=== PATIENT | female | born 1940 | race African-American/Black ===

== ENCOUNTER 2016-06-04 11:27 | Inpatient (IN) | payer OTHER ==
--- NOTE | 2016-06-04 11:41 | PDOC ---
History of Present Illness - General History Source: Patient - History of Present Illness Initial Comments: 06/04/16 11:44 The patient is a 75-year-old woman, accompanied by daughter, with a significant past medical history of hypertension, hypercholesterolemia, asthma, anemia, adult onset insulin dependent diabetes mellitus and anxiety who presents to the emergency department for further evaluation of a headache. No recent head trauma. As per patient's daughter, the patient was noted to complain of a headache this morning with associated episodes of shivering. Patient's glucose was measured and was reportedly to be 400. She had a similar presentation, over 1 year ago, where she was found to have a skin boil that was lanced and her headache resolved. Today, the patient's daughter was noted to have a lincoln- rectal skin boil. No dizziness, vision changes, speech difficulty, neck pain or stiffness, nausea , vomiting, diarrhea, hematochezia, melena, or numbness, tingling, or weakness to the extremities. Allergies: No Known Drug Allergies Past Surgical History: Orthopedic Surgery Social History: No tobacco, ETOH and recreational drug use. Primary Care Physician: Dr. Myesha Nayak [phone]/ <Mary Carrizales - Last Filed: 06/04/16 21:12> <Anderson Jauregui - Last Filed: 06/04/16 21:33> - General Chief Complaint: Headache Stated Complaint: HEADACHE Time Seen by Provider: 06/04/16 11:40 Past History <Mary Carrizales - Last Filed: 06/04/16 21:12> - Past Medical History Anemia: Yes Asthma: Yes Cancer: No Cardiac Disorders: Yes (AF ablation) CVA: No COPD: No CHF: No Dementia: No Diabetes: Yes (IDDM) GI Disorders: No Disorders: Yes (frequency) HTN: Yes Hypercholesterolemia: Yes Liver Disease: No Psychiatric Problems: Yes (ANXIETY.) Seizures: No Thyroid Disease: No - Surgical History Abdominal Surgery: Yes Appendectomy: No Cardiac Surgery: No Cholecystectomy: No Lung Surgery: No Neurologic Surgery: No Orthopedic Surgery: Yes (hammer toes,trigger finger) - Family Disease History Family Disease History: Diabetes: Grandparents, [place]: Mother (htn) - Immunization History Immunization Up to Date: Yes - Psycho/Social/Smoking Cessation Hx Anxiety: No Suicidal Ideation: No Smoking Status: Yes Smoking History: Current every day smoker Have you smoked in the past 12 months: Yes Number of Cigarettes Smoked Daily: 6 'Breaking Loose' booklet given: 06/22/15 Hx Alcohol Use: No Drug/Substance Use Hx: No Substance Use Type: None Hx Substance Use Treatment: No <Anderson Jauregui - Last Filed: 06/04/16 21:33> - Past Medical History Allergies/Adverse Reactions: Allergies Allergy/AdvReac Type Severity Reaction Status Date / Time No Known Allergies Allergy Verified 06/04/16 11:42 Home Medications: Ambulatory Orders Amlodipine Besylate [Norvasc -] 10 mg PO DAILY 07/30/15 Aspirin [ASA -] 81 mg PO DAILY 07/30/15 Cholecalciferol (Vitamin D3) [Vitamin D3] 1,000 unit PO DAILY #30 tab.chew 08/01 Dexlansoprazole [Dexilant] 30 mg PO DAILY #30 cap. 08/02/15 Insulin Sliding Scale [Novolog Vial Sliding Scale -] 1 vial SQ ACHS units 08/01 Review of Systems - Review of Systems Able to Perform ROS?: Yes Comments:: 06/04/16 11:44 GENERAL/CONSTITUTIONAL: No fever or chills. No weakness. HEAD, EYES, EARS, NOSE AND THROAT: No change in vision. No ear pain or discharge. No sore throat. CARDIOVASCULAR: No chest pain or shortness of breath. RESPIRATORY: No cough, wheezing, or hemoptysis. GASTROINTESTINAL: No nausea, vomiting, diarrhea or constipation. GENITOURINARY: No dysuria, frequency, or change in urination. MUSCULOSKELETAL: No joint or muscle swelling or pain. No neck or back pain. SKIN: Yes: Skin boil. No rash NEUROLOGIC: Yes: headache No: vertigo, loss of consciousness, or change in strength/sensation. ENDOCRINE: No increased thirst. No abnormal weight change. HEMATOLOGIC/LYMPHATIC: No anemia, easy bleeding, or history of blood clots. ALLERGIC/IMMUNOLOGIC: No hives or skin allergy. <Mary Carrizales - Last Filed: 06/04/16 21:12> *Physical Exam - Vital Signs Last Vital Signs Temp Pulse Resp BP Pulse Ox 99.3 F 101 H 18 238/97 99 06/04/16 11:38 06/04/16 11:38 06/04/16 11:38 06/04/16 11:38 06/04/16 11:38 - Physical Exam Comments: 06/04/16 11:44 GENERAL: Awake, alert. Moaning in pain HEAD: No signs of trauma EYES: PERRLA, EOMI, sclera anicteric, conjunctiva clear ENT: Auricles normal inspection, hearing grossly normal, nares patent, oropharynx clear without exudates. Moist mucosa NECK: Normal ROM, supple, no lymphadenopathy, JVD, or masses LUNGS: Breath sounds equal, clear to auscultation bilaterally. No wheezes, and no crackles HEART: Regular rate and rhythm, normal S1 and S2, no murmurs, rubs or gallops ABDOMEN: Soft, nontender, normoactive bowel sounds. No guarding, no rebound. No masses EXTREMITIES: Normal range of motion, no edema. No clubbing or cyanosis. No cords, erythema, or tenderness NEUROLOGICAL: Cranial nerves II through XII grossly intact. SKIN: There is an approximately 7 cm by 5 cm oval shaped skin boil over the lincoln -rectal region. <Mary Carrizales - Last Filed: 06/04/16 21:12> Heart Score/ECG Review #1 06/04/16 13:03 EKG reviewed and interpreted by me. IMPRESSION: Normal sinus rhythm with a rate of 78 bpm. There are nonspecfic T wave abnormalities but no ST/ T wave changes that are consistent with acute ischemia or infarct. #2 06/04/16 16:08 EKG reviewed and interpreted by me IMPRESSION: Atrial fibrillation with rapid ventricular response. <Mary Carrizales - Last Filed: 06/04/16 21:12> ED Treatment Course - LABORATORY CBC & Chemistry Diagram: 06/04/16 12:42 06/04/16 12:42 - RADIOLOGY Radiograph Interpretation: 06/04/16 14:48 EXAM: RAD/CHEST X-RAY PORTABLE IMPRESSION: Since 07/30/2015 at 1457 hours, the atelectasis at the right base has resolved. There is still a prominent mediastinum with weak inspiration. Angles are sharp. The bones and soft tissues are intact. There is a prominent knob and normal faizan. Follow-up recommended EXAM: CT/HEAD CT WITHOUT CONTRAST IMPRESSION: CT scan of the brain without intravenous contrast Since 07/30/2015, there remains moderate atrophy, ventricular dilatation and periventricular chronic microvascular ischemic changes. No mass lesion, gross acute infarct or intracranial hemorrhage is seen. There is no shift of the midline structures. The calvarium is intact. Calcification of the cavernous carotid arteries are present. Mild mucosal thickening in the ethmoid air cells and a trace of fluid in the left maxillary antrum layering posteriorly. The mastoid air cells are well aerated EXAM: CT ABDOMINAL & PELVIS IMPRESSION: A 2.4 x 2.4 x 1.3 cm superficial subcutaneous fluid collection is noted along the inferomedial aspect of the right gluteal fold suggestive of abscess formation. Associated subcutaneous edema is seen. <Mary Carrizales - Last Filed: 06/04/16 21:12> - LABORATORY CBC & Chemistry Diagram: 06/04/16 12:42 06/04/16 12:42 <Anderson Jauregui - Last Filed: 06/04/16 21:33> Medical Decision Making - Medical Decision Making 06/04/16 20:51 Called Hospitalist. Immediate response. Case was discussed. 06/04/16 20:[address] Colmenares. 06/04/16 20:[address] Colmenares. Case was discussed. <Mary Carrizales - Last Filed: 06/04/16 21:12> *DC/Admit/Observation/Transfer - Attestations Scribe Attestion: 06/04/16 11:44 Documentation prepared by Mary Carrizales, acting as medical detailist for Anderson Jauregui DO. <Mary Carrizales - Last Filed: 06/04/16 21:12> - Discharge Dispostion Admit: Yes - Attestations Physician Attestion: 06/04/16 11:41 I, Dr. Anderson Jauregui, attest that this document has been prepared under my direction and personally reviewed by me in its entirety. I further attest, that it accurately reflects all work, treatment, procedures and medical decision -making performed by me. <Anderson Jauregui - Last Filed: 06/04/16 21:33> Diagnosis at time of Disposition: Abscess or cellulitis of gluteal region, Paroxysmal atrial fibrillation with rapid ventricular response Migraine headache Qualifiers: Migraine type: other Intractability: not intractable - Referrals Referrals: Myesha Khan MD [Primary Care Provider] -
[2016-06-04 11:45] VITALS: BMI 29.5
[2016-06-04] MEDS ORDERED: morphine CARPU-JECT 4 MG/1 ML DISP.SYRIN ONE ×2 (12:17→13:23)
[2016-06-04] MEDS ORDERED: ONDANSETRON 4 MG/2 ML VIAL ONE (12:17)
[2016-06-04] MEDS ORDERED: ONDANSETRON 4 MG/2 ML VIAL IVPUSH ONE (12:36)
[2016-06-04] MEDS ORDERED: morphine CARPU-JECT 4 MG/1 ML DISP.SYRIN IVPUSH ONE ×2 (12:36→13:44)
[2016-06-04] MEDS ORDERED: SODIUM CHLORIDE 1,000 ML IV STA ×2 (12:36→14:37)
[2016-06-04 12:55] LABS: VENOUS BLOOD GAS HCO3 21.6 meq/L (19-25); VENOUS PH 7.35 (7.32-7.42)
[2016-06-04 12:59] LABS: BASOPHIL 0.5 % (0-2.0); MCH 30.8 pg (25.7-33.7); MCHC 32.6 g/dl (32.0-36.0); MEAN CELL VOLUME 94.4 fl (80-96); MEAN PLT VOLUME 10.2 fl (7.5-11.1); NEUTROPHILS 85.4 % (42.8-82.8); PLATELET COUNT 182 K/MM3 (134-434); RDW 14.6 % (11.6-15.6); WHITE BLOOD COUNT 15.8 K/mm3 (4.0-10.0)
[2016-06-04 13:04] LABS: INR 1.07 (0.82-1.09); PROTHROMBIN TIME (PATIENT) 11.8 SEC (9.98-11.88)
[2016-06-04 13:06] LABS: ACTIVATED PTT 24.9 SECONDS (26.9-34.4)
[2016-06-04 13:13] LABS: ALBUMIN 2.8 g/dl (3.4-5.0); ANION GAP 11 (8-16); BILIRUBIN,TOTAL 0.4 mg/dL (0.2-1.0); CALCIUM 8.5 mg/dL (8.5-10.1); CO2 25 mmol/L (21-32); CREATININE 2.9 mg/dL (0.55-1.02); GLUCOSE,RANDOM 270 mg/dL (74-106); SGOT/AST 8 U/L (15-37); SGPT/ALT 9 U/L (12-78); TOT PROT 6.4 g/dl (6.4-8.2)
[2016-06-04 13:15] LABS: ALK PHOS 80 U/L (45-117); TROPONIN I < 0.02 ng/ml (0.00-0.05)
[2016-06-04] MEDS ORDERED: METOCLOPRAMIDE HCL INJECTION 10 MG/2 ML VIAL ONE (14:24)
[2016-06-04] MEDS ORDERED: HYDROmorphone HCL CARPU-JECT 1 MG/1 ML DISP.SYRIN ONE (14:25)
[2016-06-04] MEDS ORDERED: HYDROmorphone HCL CARPU-JECT 1 MG/1 ML DISP.SYRIN IVPB ONE (14:35)
[2016-06-04] MEDS ORDERED: METOCLOPRAMIDE HCL INJECTION 10 MG/2 ML VIAL IVPB ONE (14:49)
[2016-06-04] MEDS ORDERED: dilTIAZem HCL 125 MG/25 ML - 25 ML VIAL ONE (16:12)
[2016-06-04] MEDS ORDERED: dilTIAZem HCL 50 MG/10 ML - 10 ML VIAL ONE (16:12)
[2016-06-04] MEDS ORDERED: dilTIAZem HCL 50 MG/10 ML - 10 ML VIAL IVPUSH ONE ×2 (16:32→17:20)
[2016-06-04] MEDS ORDERED: DILTIAZEM INJECTION 125 MG in DEXTROSE 5%-WATER - 100 ML IVPB SCH (16:45)
[2016-06-04] MEDS ORDERED: ACETAMINOPHEN 500 MG TABLET (FP) ONE (17:15)
[2016-06-04] MEDS ORDERED: ACETAMINOPHEN 500 MG TABLET (FP) PO ONE ×2 (17:20→17:41)
[2016-06-04] MEDS ORDERED: METOPROLOL TARTRATE 5 MG/5 ML VIAL IVPUSH ONE ×3 (17:24→17:26)
[2016-06-04] MEDS ORDERED: METOPROLOL TARTRATE 5 MG/5 ML VIAL ONE ×2 (17:28→18:21)
[2016-06-04 18:10] LABS: URINE APPEARANCE CLEAR; URINE BILIRUBIN NEGATIVE (NEGATIVE); URINE BLOOD NEGATIVE (NEGATIVE); URINE COLOR LTYELLOW; URINE GLUCOSE (UA) 3+ (NEGATIVE); URINE KETONE NEGATIVE (NEGATIVE); URINE LEUK ESTERASE NEGATIVE (NEGATIVE); URINE NITRITE NEGATIVE (NEGATIVE); URINE UROBILINOGEN NEGATIVE E.U./dl (0.2-1.0)
[2016-06-04 18:12] LABS: URINE PROTEIN 3+ (NEGATIVE)
[2016-06-04 18:13] LABS: URINE MUCUS RARE; URINE RBC 2 /hpf (0-3); URINE WBC 1 /hpf (3-5)
[2016-06-04] MEDS ORDERED: dilTIAZem HCL 30 MG TABLET (FP) PO ONE (19:06)
[2016-06-04] MEDS ORDERED: dilTIAZem HCL 30 MG TABLET (FP) ONE (19:11)
[2016-06-04] MEDS ORDERED: ceFAZolin 2 GRAM PREMIX BAG IVPB ONE ×2 (20:48→21:30)
[2016-06-04] MEDS ORDERED: CEFAZOLIN (PRE-DOCKED) 50 ML IVPB ONE ×2 (21:05→21:11)
[2016-06-04] MEDS ORDERED: ONDANSETRON 4 MG/2 ML VIAL IVPB ONE (21:15)
--- NOTE | 2016-06-04 22:12 | HP ---
CHIEF COMPLAINT: headache, abscess PCP: College Tutor: Dr. Griffith HISTORY OF PRESENT ILLNESS: 75 y/o F w/PMH of HTN, HLD, asthma, anemia, IDDM, CKD, anxiety, hx of afib (s/p ablation) presents to ER for c/o JANE. JANE started 3 days ago and is "50/10" in intensity. JANE started as a pounding JANE behind L ear and now is a constant pain behind left ear. Pt states the headache has remained the same over the past 3 days with no aggravating or alleviating factors. She took tylenol but it did not help. She had a similar headache in the past when she had a genito/gluteal abscess approximately 1 year ago. At that time she went to [facility] and had I& D for abscess and was treated with IV abx for approx 1 week. At this time pt also has an abscess in gluteal region that she noticed forming 3 days ago. She has had chills over the last few days. Today she had her BGM checked at home and was in the 400s. Pt states she has also felt fatigued and SOB even at rest chronically. At this time she feels her breathing is at baseline. She states she has seen multiple doctors but the etiology of her chronic fatigue and SOB are unknown. She denies palpitations, CP, abd pain, N/V, fevers, diarrhea, blood in stool, vision changes, ringing in ears, dysuria, or focal weakness. ER course was notable for: (1) cardizem po 30 mg, cardizem iv 20 + 10, cardizem drip, lopressor iv 5mg x3, cefazolin (2) EKG, Head CT, CXR, Abd/pelvis CT (3) diluadid, reglan, zofran, morphine PAST MEDICAL HISTORY: HTN, HLD, asthma, anemia, IDDM, anxiety, hx of afib PAST SURGICAL HISTORY: I&D for genito/gluteal abscess 1 year ago; s/p ablation for afib (2013) Social History: Smokin-10 cig/day for 60+ years (smoked more than 6-10 cig/day in past) Alcohol: occasional Drugs: denies Family History: Mother HTN Allergies No Known Allergies Allergy (Verified 06/04/16 11:42) HOME MEDICATIONS: Home Medications Medication Instructions Recorded Amlodipine Besylate [Norvasc -] 10 mg PO DAILY 07/30/15 Aspirin [ASA -] 81 mg PO DAILY 07/30/15 Cholecalciferol (Vitamin D3) 1,000 unit PO DAILY #30 tab.chew 08/02/15 [Vitamin D3] Dexlansoprazole [Dexilant] 30 mg PO DAILY #30 08/02/15 Insulin Sliding Scale [Novolog 1 vial SQ ACHS units 08/02/15 Vial Sliding Scale -] REVIEW OF SYSTEMS CONSTITUTIONAL: chills, generalized weakness Absent: fever, diaphoresis, malaise, loss of appetite, weight change HEENT: Absent: rhinorrhea, nasal congestion, throat pain, throat swelling, difficulty swallowing, mouth swelling, ear pain, eye pain, visual changes CARDIOVASCULAR: Absent: chest pain, syncope, palpitations, irregular heart rate, lightheadedness , peripheral edema RESPIRATORY: sob (chronic), dyspnea with exertion (chronic) Absent: cough, orthopnea, wheezing, stridor, hemoptysis GASTROINTESTINAL: Absent: abdominal pain, abdominal distension, nausea, vomiting, diarrhea, constipation, melena, hematochezia GENITOURINARY: Absent: dysuria, frequency, urgency, hesitancy, hematuria, flank pain, genital pain MUSCULOSKELETAL: Absent: myalgia, arthralgia, joint swelling, back pain, neck pain SKIN: Absent: rash, itching, pallor HEMATOLOGIC/IMMUNOLOGIC: Absent: easy bleeding, easy bruising, lymphadenopathy, frequent infections ENDOCRINE: Absent: unexplained weight gain, unexplained weight loss, heat intolerance, cold intolerance NEUROLOGIC: headache Absent: focal weakness or paresthesias, dizziness, unsteady gait, seizure, mental status changes, bladder or bowel incontinence PSYCHIATRIC: Absent: anxiety, depression, suicidal or homicidal ideation, hallucinations. PHYSICAL EXAMINATION Vital Signs Temperature 98.8 F 06/04/16 19:30 Pulse Rate 65 06/04/16 22:29 Respiratory Rate 19 06/04/16 19:53 Blood Pressure 129/55 06/04/16 22:29 O2 Sat by Pulse Oximetry (%) 93 L 06/04/16 22:29 GENERAL: Awake, alert, and fully oriented, lethargic, depressed mood. HEAD: Normal with no signs of trauma. EYES: extraocular movements intact, sclera anicteric, conjunctiva clear. No lid lag. EARS, NOSE, THROAT: Ears normal, nares patent, oropharynx clear without exudates. Moist mucous membranes. NECK: Normal range of motion LUNGS: Diminished breath sounds, Breath sounds equal, clear to auscultation bilaterally. No wheezes, and no crackles. No accessory muscle use. HEART: Regular rate and rhythm, normal S1 and S2 without murmur, rub or gallop. ABDOMEN: Soft, nontender, not distended, normoactive bowel sounds, no guarding, no rebound, no masses. No hepatomegaly or splenomegaly. MUSCULOSKELETAL: Normal range of motion at all joints. No bony deformities or tenderness. No CVA tenderness. LOWER EXTREMITIES: 2+ pulses, warm, well-perfused. No calf tenderness. No peripheral edema. NEUROLOGICAL: Normal speech. gait not observed. PSYCHIATRIC: Cooperative. Good eye contact. depressed mood. SKIN: Warm, dry, normal turgor, 3 - 3.5 cm in diameter region of redness with no drainage noted in gluteal region, normal capillary refill. Laboratory Results - last 24 hr 06/04/16 06/04/16 06/04/16 12:05 12:42 12:42 WBC 15.8 H D RBC 4.08 Hgb 12.6 D Hct 38.5 MCV 94.4 MCHC 32.6 RDW 14.6 Plt Count 182 MPV 10.2 Neutrophils % 85.4 H D Lymphocytes % 8.4 D Monocytes % 5.7 Eosinophils % 0.0 D Basophils % 0.5 INR 1.07 D PTT (Actin FS) 24.9 L D VBG pH POC VBG pCO2 POC VBG pO2 Mixed VBG HCO3 Sodium Potassium Chloride Carbon Dioxide Anion Gap BUN Creatinine Creat Clearance w eGFR POC Glucometer [phone] Random Glucose Lactic Acid Calcium Total Bilirubin AST ALT Alkaline Phosphatase Creatine Kinase Troponin I Total Protein Albumin Urine Color Urine Appearance Urine pH Ur Specific [place] Urine Protein Urine Glucose (UA) Urine Ketones Urine Blood Urine Nitrite Urine Bilirubin Urine Urobilinogen Ur Leukocyte Esterase Urine RBC Urine WBC Ur Epithelial Cells Urine Mucus Blood Type Antibody Screen 06/04/16 06/04/16 06/04/16 12:42 12:42 12:42 WBC RBC Hgb Hct MCV MCHC RDW Plt Count MPV Neutrophils % Lymphocytes % Monocytes % Eosinophils % Basophils % INR PTT (Actin FS) VBG pH 7.35 POC VBG pCO2 40.3 POC VBG pO2 22.2 L Mixed VBG HCO3 21.6 Sodium 136 Potassium 3.7 D Chloride 100 Carbon Dioxide 25 D Anion Gap 11 BUN 32 H Creatinine 2.9 H Creat Clearance w eGFR 15.74 POC Glucometer Random Glucose 270 H D Lactic Acid 2.358 H* Calcium 8.5 Total Bilirubin 0.4 D AST 8 L D ALT 9 L D Alkaline Phosphatase 80 D Creatine Kinase 82 Troponin I < 0.02 Total Protein 6.4 Albumin 2.8 L Urine Color Urine Appearance Urine pH Ur Specific [place] Urine Protein Urine Glucose (UA) Urine Ketones Urine Blood Urine Nitrite Urine Bilirubin Urine Urobilinogen Ur Leukocyte Esterase Urine RBC Urine WBC Ur Epithelial Cells Urine Mucus Blood Type Antibody Screen 06/04/16 06/04/16 06/04/16 12:42 14:32 18:00 WBC RBC Hgb Hct MCV MCHC RDW Plt Count MPV Neutrophils % Lymphocytes % Monocytes % Eosinophils % Basophils % INR PTT (Actin FS) VBG pH POC VBG pCO2 POC VBG pO2 Mixed VBG HCO3 Sodium Potassium Chloride Carbon Dioxide Anion Gap BUN Creatinine Creat Clearance w eGFR POC Glucometer Random Glucose Lactic Acid 1.612 Calcium Total Bilirubin AST ALT Alkaline Phosphatase Creatine Kinase Troponin I Total Protein Albumin Urine Color Ltyellow Urine Appearance Clear Urine pH 5.0 Ur Specific [place] 1.022 Urine Protein 3+ H Urine Glucose (UA) 3+ H Urine Ketones Negative Urine Blood Negative Urine Nitrite Negative Urine Bilirubin Negative Urine Urobilinogen Negative Ur Leukocyte Esterase Negative Urine RBC 2 Urine WBC 1 Ur Epithelial Cells Rare Urine Mucus Rare Blood Type A POSITIVE Antibody Screen Negative Imaging: CXR 06/04/16: Angles sharp, bones and soft tissues intact, prominent knob and normal faizan. Head CT 06/04/16: No significant interval change or acute intracranial pathology is identified. Interval minimal chronic ethmoid sinusitis and trace fluid in the left maxillary antrum. Abd/Pelvis CT 06/04/17: 2.4 x 2.4 x 1.3 cm superficial subcutaneous fluid collection is noted along the inferomedial aspect of the right gluteal fold suggestive of abscess formation. Associated subcutaneous edema is seen. EKG: NSR @ 78 (last ekg done) Active Medications Acetaminophen/Butalbital/Caffeine (Fioricet -) 1 tablet PO Q6H PRN PRN Reason: FEVER OR PAIN Diltiazem HCl (Cardizem -) 30 mg PO TID ERMA Heparin Sodium (Porcine) (Heparin -) 1,000 unit IVPUSH PRN PRN PRN Reason: Heparin Heparin Sodium (Porcine) (Heparin -) 5,000 unit IVPUSH PRN PRN PRN Reason: Heparin Heparin Sodium (Porcine) 25, (000 unit/ Sodium Chloride) 500 mls @ 20 mls/hr IV TITR ERMA; 1,000 UNIT/HR PRN Reason: Protocol Morphine Sulfate (Morphine Injection -) 1 mg IVPUSH Q6H PRN PRN Reason: PAIN ASSESSMENT/PLAN: 75 y/o F w/PMH of HTN, HLD, CKD, asthma, anemia, IDDM, anxiety, hx of afib (s/p ablation) presents to ER for c/o JANE. Admitted to tele for cellulitis in gluteal region and paroxysmal afib. -Cellulitis in gluteal region -as seen on abd/pelvis ct -Cefazolin given in ER -WBC 15.8, chills reported -Vanco once ordered, ID consulted, pt has baseline Cr ~2.8 -pain control: morphine 1mg iv q6h prn -f/u BCx, UCx -Paroxysmal afib s/p ablation -cardizem 20 + 10 iv, 30 mg po, drip in ER -drip d/c'd; cardizem 30 mg po tid ordered -currently in NSR -[id number]: 5 -AC w/heparin drip -consider ECHO, pt states she had an echo in March, will need to be verified. -cardiology consulted: pt sees Dr. Griffith as outpatient -Intractable JANE -Head CT neg -Neurology: Dr. Colmenares consulted -Fiorecet q6h PRN -CKD -Cr 2.9, baseline is ~2.8 -monitor -Current smoker -nicotine patch -DVT ppx -on heparin drip -FEN -no fluids -electrolytes wnl -cardiac diet -Dispo: -admit to tele Problem List - Problem (2) Paroxysmal atrial fibrillation with RVR Code(s): I48.0 - PAROXYSMAL ATRIAL FIBRILLATION (3) CKD stage 4 due to type 2 diabetes mellitus Code(s): E11.22 - TYPE 2 DIABETES MELLITUS W DIABETIC CHRONIC KIDNEY DISEASE N18.4 - CHRONIC KIDNEY DISEASE, STAGE 4 (SEVERE) (4) Intractable headache Code(s): R51 - HEADACHE (5) Asthma Code(s): J45.909 - UNSPECIFIED ASTHMA, UNCOMPLICATED (6) IDDM (insulin dependent diabetes mellitus) Code(s): E11.9 - TYPE 2 DIABETES MELLITUS WITHOUT COMPLICATIONS Z79.4 - GROUP HOME (CURRENT) USE OF INSULIN (7) Current smoker Code(s): F17.200 - NICOTINE DEPENDENCE, UNSPECIFIED, UNCOMPLICATED Visit type - Emergency Visit Emergency Visit: Yes ED Registration Date: 06/04/16 Care time: The patient presented to the Emergency Department on the above date and was hospitalized for further evaluation of their emergent condition. - New Patient This patient is new to me today: Yes Date on this admission: 06/05/16 - Critical Care Critical Care patient: No
[2016-06-04] MEDS ORDERED: morphine CARPU-JECT 2 MG/1 ML DISP.SYRIN IVPUSH PRN (22:36)
[2016-06-04] MEDS ORDERED: VANCOMYCIN 1,250 MG in DEXTROSE 5%-WATER - 250 ML IVPB ONE (23:00)
[2016-06-04] MEDS ORDERED: HEPARIN NA (PORCINE) 5,000 UNITS/ML 1ML VIAL IVPUSH PRN (23:41)
--- NOTE | 2016-06-04 23:53 | PN ---
<Stacey Gaxiola - Last Filed: 06/05/16 00:14> Teaching Attending Note ATTENDING PHYSICIAN STATEMENT I saw and evaluated the patient. I reviewed the resident's note and discussed the case with the resident. I agree with the resident's findings and plan as documented. SUBJECTIVE: 75 yo F presents with headache and perirectal boil. She denies head trauma. Patient reports she has had similar symptoms in the past and the headache and boil always present together. She notes she is very tired recently and has had some minor weight gain. As per patients daughter, the patient woke up with headache and chills. Patient's glucose was measured and was reportedly to be 400. PMHx: hypertension, hypercholesterolemia, asthma, anemia, adult onset insulin dependent diabetes mellitus and anxiety OBJECTIVE: Last Vital Signs Temp Pulse Resp BP Pulse Ox 98.8 F 65 19 129/55 93 L 06/04/16 19:30 06/04/16 22:29 06/04/16 19:53 06/04/16 22:29 06/04/16 22:29 GENERAL: Awake, alert, and fully oriented, lethargic. HEENT: Atraumatic. PERRLA, EOMI. Moist mucosa. No JVD. Thyroid has no polyps or normal size, nontender to palpation LUNGS: No distress, speaks full sentences, clear to auscultation bilaterally HEART: Regular rate and rhythm, normal S1 and S2, no murmurs, rubs or gallops, peripheral pulses normal and equal bilaterally. ABDOMEN: Soft, nontender, normoactive bowel sounds. No guarding, no rebound. No masses. EXTREMITIES: Normal inspection, Normal range of motion, no edema. No clubbing or cyanosis. NEUROLOGICAL: Cranial nerves II through XII grossly intact. Normal speech, normal gait, no focal sensorimotor deficits SKIN: Warm, Dry, normal turgor, 3 cm diameter perirectal abscess with surrounding cellulitis tender to palpation. CBCD WBC 15.8 K/mm3 (4.0-10.0) H D 06/04/16 12:42 RBC 4.08 M/mm3 (3.60-5.2) 06/04/16 12:42 Hgb 12.6 GM/dL (10.7-15.3) D 06/04/16 12:42 Hct 38.5 % (32.4-45.2) 06/04/16 12:42 MCV 94.4 fl (80-96) 06/04/16 12:42 MCHC 32.6 g/dl (32.0-36.0) 06/04/16 12:42 RDW 14.6 % (11.6-15.6) 06/04/16 12:42 Plt Count 182 K/MM3 (134-434) 06/04/16 12:42 MPV 10.2 fl (7.5-11.1) 06/04/16 12:42 CMP Sodium 136 mmol/L (136-145) 06/04/16 12:42 Potassium 3.7 mmol/L (3.5-5.1) D 06/04/16 12:42 Chloride 100 mmol/L (98-107) 06/04/16 12:42 Carbon Dioxide 25 mmol/L (21-32) D 06/04/16 12:42 Anion Gap 11 (8-16) 06/04/16 12:42 BUN 32 mg/dL (7-18) H 06/04/16 12:42 Creatinine 2.9 mg/dL (0.55-1.02) H 06/04/16 12:42 Creat Clearance w eGFR 15.74 (>60) 06/04/16 12:42 Calcium 8.5 mg/dL (8.5-10.1) 06/04/16 12:42 Total Bilirubin 0.4 mg/dL (0.2-1.0) D 06/04/16 12:42 AST 8 U/L (15-37) L D 06/04/16 12:42 ALT 9 U/L (12-78) L D 06/04/16 12:42 Alkaline Phosphatase 80 U/L (45-117) D 06/04/16 12:42 Total Protein 6.4 g/dl (6.4-8.2) 06/04/16 12:42 Albumin 2.8 g/dl (3.4-5.0) L 06/04/16 12:42 ECG: NSR @ 78 bpm. Nonspecific T wave abnormality Documentation prepared by Stacey Gaxiola, acting as diagnostic medical sonographer for Lizzy Sevilla M.D. <Lizzy Sevilla - Last Filed: 06/05/16 00:55> Teaching Attending Note Name of Resident: Andres Jay Problem List - Problems (1) Cellulitis and abscess of buttock Assessment/Plan: Vancomycin renal dosing Surgery consult for I&D (2) Migraine headache Assessment/Plan: Fiorcet q6h Zofran prn Code(s): G43.909 - MIGRAINE, UNSP, NOT INTRACTABLE, WITHOUT STATUS MIGRAINOSUS Qualifiers: Migraine type: other Intractability: not intractable (3) Paroxysmal atrial fibrillation with RVR Assessment/Plan: Heparin drip and follow Coag profile until therapeutic ECHO in AM Cardiology consult Nacho rate controll with cardizem 30mg TID PO Code(s): I48.0 - PAROXYSMAL ATRIAL FIBRILLATION (4) CKD stage 4 due to type 2 diabetes mellitus Assessment/Plan: Avoid nephrotoxic medications RISS check TSH to r/o thyroid disorder. Code(s): E11.22 - TYPE 2 DIABETES MELLITUS W DIABETIC CHRONIC KIDNEY DISEASE N18.4 - CHRONIC KIDNEY DISEASE, STAGE 4 (SEVERE)
[2016-06-05] MEDS ORDERED: HEPARIN INFUSION - 500 ML IVPB ONE (00:24)
[2016-06-05] MEDS: HEPARIN - 25,000 UNIT in SODIUM CHLORIDE 495 ML IV SCH ×2 (00:34→17:29)
[2016-06-05] MEDS ORDERED: dilTIAZem HCL 30 MG TABLET (FP) PO SCH (06:00)
[2016-06-05] MEDS: ACETAMINOPHEN/CAFFEINE/BUTALBITAL 1 TAB PO PRN ×2 (07:27→13:18)
[2016-06-05 07:59] LABS: MCH 31.1 pg (25.7-33.7); MCHC 32.8 g/dl (32.0-36.0); MEAN CELL VOLUME 94.8 fl (80-96); MEAN PLT VOLUME 10.4 fl (7.5-11.1); PLATELET COUNT 163 K/MM3 (134-434); RDW 14.8 % (11.6-15.6); WHITE BLOOD COUNT 18.9 K/mm3 (4.0-10.0)
[2016-06-05 08:26] LABS: ACTIVATED PTT 53.8 SECONDS (26.9-34.4); INR 1.15 (0.82-1.09); PROTHROMBIN TIME (PATIENT) 12.7 SEC (9.98-11.88)
[2016-06-05 09:04] LABS: ALBUMIN 2.3 g/dl (3.4-5.0); BILIRUBIN,TOTAL 0.4 mg/dL (0.2-1.0); CALCIUM 7.2 mg/dL (8.5-10.1); CREATININE 3.3 mg/dL (0.55-1.02); MAGNESIUM 1.5 mg/dL (1.8-2.4); THYROID STIMULATING HORMONE 1.15 uIU/ml (0.358-3.74); TOT PROT 5.4 g/dl (6.4-8.2)
[2016-06-05] MEDS ORDERED: MAGNESIUM SULF 50% (8.12 MEQ/2 ML-1 GM VIAL) IVPB ONE (09:18)
[2016-06-05] MEDS ORDERED: INSULIN (NOVOLOG) ASPART 100 UNITS/ML 10ML VIAL ONE (10:37)
[2016-06-05] MEDS ORDERED: LIDOCAINE HCL 1%, 10 MG/ML (20ML VIAL) ONE (11:11)
[2016-06-05] MEDS: INSULIN SLIDING SCALE (NOVOLOG) 1 VIAL SQ SCH ×4 (11:19→22:36)
--- NOTE | 2016-06-05 11:27 | CON.CARD ---
Consult Consult Specialty:: Cardiology Referred by:: Hospitalist Reason for Consultation:: Paroxysmal atrial fibrillation - History of Present Illness Chief Complaint: Headache, abscess History of Present Illness: 75 year old woman with a history of HTN, HLD, heavy smoking, PAD with claudication, DM II, Atrial flutter s/p ablation years ago, CKD, DVT 2016 tx with course of full AC, depression, chronic fatigue, chronic severe JOHNSON of uncertain etiology, presented to ER with severe headaches and recurrent abscess and incidentally noted to have paroxsymal SVT (likely AFib) with RVR to 150s. Pt was given cardizem in ER and started on heparin gtt, converted to NSR. Pt. seen and examined this am in nad. States she is feeling better, still has a headache but less intense. Denies any chest pain or palpitations. No change in her chronic JOHNSON. No change in her chronic fatigue. No pnd, orthopnea or LE edema. Of note she has not been on full AC as her prior arrhythmia was aflutter and that was ablated thus no longer required full AC. She was treated recently with full AC for a DVT. She has had event monitors as an outpatient that never detected AFib or recurrence of Aflutter. She was taken off of her bblocker in the past few months in consideration for its contribution to her chronic fatigue however there was no change in her symptoms. She had a right and left heart cardiac catheterization in the last 2 years that showed no significant pulmonary HTN and no sig coronary artery disease. 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: Yes: Peripheral Neuropathy Cardio/Vascular: Yes: HTN, Hyperlipdemia, Other (Atrial flutter s/p ablation, PAD) Pulmonary: Yes: COPD Renal/: Yes: Renal Inusuff (stage 4), Other (Overactive Bladder) Psych: Yes: Depression Endocrine: Yes: Diabetes Mellitus (initially on oral agents, now on insulin) - Past Surgical History Past Surgical History: Yes: Colonoscopy (polyps a few years ago), Hysterectomy ( fibroids), Tubal Ligation, Upper Endoscopy (neg 1+ yrs ago) - Alcohol/Substance Use Hx Alcohol Use: No - Smoking History Smoking history: Current every day smoker Have you smoked in the past 12 months: Yes Aproximately how many cigarettes per day: 6 - Social History Usual Living Arrangement: With Child ADL: Family Assistance History of Recent Travel: No Home Medications - Allergies Allergies/Adverse Reactions: Allergies Allergy/AdvReac Type Severity Reaction Status Date / Time No Known Allergies Allergy Verified 06/04/16 11:42 - Home Medications Home Medications: Ambulatory Orders Amlodipine Besylate [Norvasc -] 10 mg PO DAILY 07/30/15 Aspirin [ASA -] 81 mg PO DAILY 07/30/15 Cholecalciferol (Vitamin D3) [Vitamin D3] 1,000 unit PO DAILY #30 tab.chew 08/01 Dexlansoprazole [Dexilant] 30 mg PO DAILY #30 cap. 08/02/15 Insulin Sliding Scale [Novolog Vial Sliding Scale -] 1 vial SQ ACHS units 08/01 Family Disease History - Family Disease History Family Disease History: Diabetes: Grandparent, Mother, Sister (lung cancer), CA : Sister Review of Systems - Review of Systems Constitutional: reports: Lethargy, Loss of Appetite, Malaise, Weakness. denies : No Symptoms, Chills, Diaphoresis, Fever, Night Sweats, Unintentional Wgt. Loss , Other Eyes: denies: No Symptoms, Blind Spots, Blurred Vision, Double Vision, Eye Pain , Floaters, Photophobia, Recent Change in Vision, Other HENT: denies: No Symptoms, Difficult Swallowing, Ear Discharge, Ear Pain, Epistaxis, Gingival Bleeding, Hearing Loss, Mouth Swelling, Nasal Congestion, Ocular Prosthesis, Throat Pain, Toothache, Ringing in Ears, Other Neck: denies: No Symptoms, Decreased ROM, Lumps, Pain on Movement, Stiffness, Swollen Glands, Tenderness, Other Cardiovascular: reports: Shortness of Breath. denies: No Symptoms, Chest Pain, Edema, Palpitations, Other Respiratory: reports: Exercise Intolerance, SOB, SOB on Exertion. denies: No Symptoms, Cough, Hemoptysis, Orthopnea, PND, Snoring, Wheezing, Other Gastrointestinal: denies: No Symptoms, Abdominal Pain, Bloating, Constipation, Diarrhea, Dysphagia, Indigestion, Melena, Nausea, Rectal Bleeding, Vomiting, Vomiting Blood, Other Genitourinary: denies: No Symptoms, Burning, Discharge, Dysuria, Flank Pain, Frequency, Hematuria, Incontinence, Lesions, Menses, Pain, Testicular Mass, Testicular Pain, Testicular Swelling, Urgency, Vaginal Bleeding, Other Breasts: denies: No Symptoms Reported, See HPI, Breast Implants, Discharge from Nipple, Lumps, Pain, Skin Changes, Other Musculoskeletal: reports: Extremity Pain, Muscle Cramps, Muscle Weakness. denies: No Symptoms, Back Pain, Crepitus, Decreased ROM, Joint Pain, Joint Swelling, Muscle Pain, Other Integumentary: denies: No Symptoms, Blister, Bruising, Change in Color, Eczema, Erythema, Incision, Lesions, Lump, Pallor, Pruritis, Rash, Wound, Other Neurological: reports: Headache. denies: No Symptoms, Change in LOC, Change in Speech, Confusion, Dizziness, Incoordination, Numbness, Parasthesia, Pre- Existing Deficit, Seizure, Syncope, Tremors, Unsteady Gait, Weakness, Other Endocrine: denies: No Symptoms, Excessive Sweating, Flushing, Increased Hunger, Increased Thirst, Intolerance to Cold, Intolerance to Heat, Unexplained Weight Gain, Unexplained Weight Loss, Other Hematology/Lymphatic: denies: No Symptoms, Easily Bruised, Excessive Bleeding, Swollen Glands, Other Psychiatric: denies: No Symptoms, Altered Sleep Pattern, Anxiety, Depression, Hallucinations, Panic, Paranoia, Suicidal, Other - Risk Factors Known Risk Factors: Yes: Diabetes Mellitus, Hypercholesterolemia, Hypertension, Smoking Vital Signs: Vital Signs Temperature 99.8 F H 06/05/16 10:00 Pulse Rate 66 06/05/16 10:00 Respiratory Rate 22 06/05/16 10:00 Blood Pressure 138/76 06/05/16 10:00 O2 Sat by Pulse Oximetry (%) 97 06/05/16 04:25 Constitutional: Yes: Well Nourished, No Distress, Calm Eyes: Yes: WNL, Conjunctiva Clear, EOM Intact, PERRL HENT: Yes: WNL, Atraumatic, Normocephalic Neck: Yes: WNL, Supple, Trachea Midline Respiratory: Yes: WNL, Regular, CTA Bilaterally, On Nasal O2, SOB on Exertion. No: Rales, Rhonchi, Wheezes Gastrointestinal: Yes: WNL, Normal Bowel Sounds, Soft. No: Distention, Tenderness Renal/: Yes: WNL Cardiovascular: Yes: Regular Rate and Rhythm. No: Bradycardia, Tachycardia, Pulse Irregular, Gallop, Rub, Varicosities JVD: No Carotid Bruit: No PMI: Non-Displaced Heart Sounds: Yes: S1, S2. No: Split S2, S3, S4, Clicks, Gallop, Rub, Bruit Murmur: Yes: Systolic Murmur. No: Diastolic Murmur Musculoskeletal: Yes: WNL Extremities: Yes: WNL Edema: No Peripheral Pulses WNL: Yes Peripheral Pulses: 2+ Left Doralis Pedis, 2+ Right Dorsalis Pedis Integumentary: Yes: WNL Neurological: Yes: WNL, Alert, Oriented, Cran Nerves II-XII Intact ...Motor Strength: WNL Psychiatric: Yes: WNL, Alert, Oriented - Other Data Labs, Other Data: CBC, BMP 06/05/16 05:50 06/05/16 05:50 INR, PTT INR 1.15 (0.82-1.09) H 06/05/16 05:50 EKG- 06/04 4pm-AFib vs aflutter (likely afib) 150bpm, ST depressions V5, V6, I, aVL, II, III, aVF, possible inferior ischemia EKG-06/04 7pm NSR 66bpm, nonspecific ST abnl Echo: Report Reviewed Prior Cardiac Procedures: Cardiac Catheterization Imaging - Results Chest X-ray: Report Reviewed, Image Reviewed EKG: Report Reviewed, Image Reviewed Other: Report Reviewed, Image Reviewed (tele-NSR, no further arrhthymias recorded since admission from the ER) Problem List - Problems (1) Current smoker Code(s): F17.200 - NICOTINE DEPENDENCE, UNSPECIFIED, UNCOMPLICATED (2) IDDM (insulin dependent diabetes mellitus) Code(s): E11.9 - TYPE 2 DIABETES MELLITUS WITHOUT COMPLICATIONS Z79.4 - MEMBER SERVICES COORDINATOR (CURRENT) USE OF INSULIN (3) Intractable headache Code(s): R51 - HEADACHE (4) Paroxysmal atrial fibrillation with RVR Code(s): I48.0 - PAROXYSMAL ATRIAL FIBRILLATION (5) CKD stage 4 due to type 2 diabetes mellitus Code(s): E11.22 - TYPE 2 DIABETES MELLITUS W DIABETIC CHRONIC KIDNEY DISEASE N18.4 - CHRONIC KIDNEY DISEASE, STAGE 4 (SEVERE) (6) COPD (chronic obstructive pulmonary disease) Code(s): J44.9 - CHRONIC OBSTRUCTIVE PULMONARY DISEASE, UNSPECIFIED Qualifiers : COPD type: emphysema Emphysema type: unspecified Qualified Code(s) : J43.9 - Emphysema, unspecified (7) History of DVT (deep vein thrombosis) Code(s): Z86.718 - PERSONAL HISTORY OF OTHER VENOUS THROMBOSIS AND EMBOLISM (8) History of atrial flutter Code(s): Z86.79 - PERSONAL HISTORY OF OTHER DISEASES OF THE CIRCULATORY SYSTEM (9) Hyperlipidemia Code(s): E78.5 - HYPERLIPIDEMIA, UNSPECIFIED (10) Hypertension Code(s): I10 - ESSENTIAL (PRIMARY) HYPERTENSION (11) Peripheral arterial disease Code(s): I73.9 - PERIPHERAL VASCULAR DISEASE, UNSPECIFIED Assessment/Plan 75 year old woman with a history of HTN, HLD, heavy smoking, PAD with claudication, DM II, Atrial flutter s/p ablation years ago, CKD, DVT 2016 tx with course of full AC, depression, chronic fatigue, chronic severe JOHNSON of uncertain etiology, presented to ER with severe headaches and recurrent abscess and incidentally noted to have paroxsymal SVT (likely AFib) with RVR to 150s. Pt was given cardizem in ER and started on heparin gtt, converted to NSR. Pt. seen and examined this am in nad. States she is feeling better, still has a headache but less intense. Denies any chest pain or palpitations. No change in her chronic JOHNSON. No change in her chronic fatigue. No pnd, orthopnea or LE edema. Of note she has not been on full AC as her prior arrhythmia was aflutter and that was ablated thus no longer required full AC. She was treated recently with full AC for a DVT. She has had event monitors as an outpatient that never detected AFib or recurrence of Aflutter. She was taken off of her bblocker in the past few months in consideration for its contribution to her chronic fatigue however there was no change in her symptoms. She had a right and left heart cardiac catheterization in the last 2 years that showed no significant pulmonary HTN and no sig coronary artery disease. Arrhythmia-appears to be newly diagnosed Paroxysmal Afib with RVR, with a history of Aflutter s/p ablation with no recorded recurrence -currently back in NSR -can cont Cardizem po, can change to cardizem CD 120mg daily -can transition heparin gtt to oral AC, will start coumadin as Eliquis dosing not defined for CrCL <15 (not on HD) -can keep on tele one more day to attempt to further clarify if this is afib vs recurrence of aflutter, if no recurrence of arrhythmia with RVR can dc tele tomorrow -plan for additional event monitor as outpatient HTN-adequately controlled -cont home meds and start cardizem as above SOB-chronic, likely secondary to smoking and depression, chronic fatigue -no sign of CHF -SOB is chronic, unlikely a result of arrhythmia -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
--- NOTE | 2016-06-05 11:38 | CONSULT ---
Addendum entered and electronically signed by Melvin Briones PA 06/05/16 11:44: PMHx: IDDM Original Note: - Consultation REQUESTING PROVIDER: Prince Willoughby (General Surgery) CONSULT REQUEST: We have been asked to surgically evaluate this patient for gluteal abscess. PCP: Ryann Israel HPI:Called to yenny 75yo female with PMHx noted below. Patient states she first noticed a "bump" on her backside 3 days ago. Has + h/o gluteal abscess 1 yr ago treated with I&D at [facility]. CT scan in ER confirms gluteal abscess. WBC 18. Low grade temp 99.8F. Denies n/v/f/c. PMHx: HTN, HLD, asthma, anemia, IDDM, CKD, anxiety, Afib PSHx: I&D for genito/gluteal abscess 1 year ago; s/p ablation for afib (2013) Home Medications 3 Amlodipine Besylate [Norvasc -] 10 mg PO DAILY 07/30/15 Aspirin [ASA -] 81 mg PO DAILY 07/30/15 Cholecalciferol (Vitamin D3) 1,000 unit PO DAILY #30 tab.chew 08/02/15 [Vitamin D3] Dexlansoprazole [Dexilant] 30 mg PO DAILY #30 cap 08/02/15 Insulin Sliding Scale [Novolog 1 vial SQ ACHS units 08/02/15 Vial Sliding Scale -] Allergies: NKDA ROS: CONSTITUTIONAL: Absent: diaphoresis, generalized weakness, malaise, loss of appetite, weight change CARDIOVASCULAR: Absent: syncope, irregular heart rate, lightheadedness, peripheral edema RESPIRATORY: Absent: cough, shortness of breath, dyspnea with exertion, wheezing , stridor, hemoptysis GASTROINTESTINAL:Absent: abdominal pain, abdominal distension, nausea, vomiting , diarrhea, constipation, melena, hematochezia GENITOURINARY: Absent: dysuria, frequency, urgency, hesitancy, hematuria, flank pain, genital pain MUSCULOSKELETAL: Absent: myalgia, arthralgia, joint swelling, back pain, neck pain SKIN: Absent: rash, itching, pallor HEMATOLOGIC/IMMUNOLOGIC: Absent: easy bleeding, easy bruising, lymphadenopathy NEUROLOGIC: Absent: headache, focal weakness, paresthesias, dizziness, unsteady gait, seizure, mental status changes, PSYCHIATRIC: Absent: anxiety, depression, suicidal or homicidal ideation, hallucinations. PHYSICAL EXAM: GENERAL: Awake, alert, and fully oriented, in no acute distress. SKIN: right gluteal abscess (medially) ~ 3 x 3 cm. Indurated. Painful to palpation. Surrounding erythema. Soft tissue swelling. No drainage. Vital Signs Temperature 99.8 F H 06/05/16 10:00 Pulse Rate 66 06/05/16 10:00 Respiratory Rate 22 06/05/16 10:00 Blood Pressure 138/76 06/05/16 10:00 O2 Sat by Pulse Oximetry (%) 97 06/05/16 04:25 Lab Results WBC 18.9 K/mm3 (4.0-10.0) H 06/05/16 05:50 RBC 3.41 M/mm3 (3.60-5.2) L 06/05/16 05:50 Hgb 10.6 GM/dL (10.7-15.3) L D 06/05/16 05:50 Hct 32.4 % (32.4-45.2) D 06/05/16 05:50 MCV 94.8 fl (80-96) 06/05/16 05:50 MCHC 32.8 g/dl (32.0-36.0) 06/05/16 05:50 RDW 14.8 % (11.6-15.6) 06/05/16 05:50 Plt Count 163 K/MM3 (134-434) 06/05/16 05:50 Sodium 137 mmol/L (136-145) 06/05/16 05:50 Potassium 4.2 mmol/L (3.5-5.1) 06/05/16 05:50 Chloride 105 mmol/L (98-107) 06/05/16 05:50 Carbon Dioxide 17 mmol/L (21-32) L D 06/05/16 05:50 Anion Gap 15 (8-16) 06/05/16 05:50 BUN 33 mg/dL (7-18) H 06/05/16 05:50 Creatinine 3.3 mg/dL (0.55-1.02) H 06/05/16 05:50 Random Glucose 268 mg/dL (74-106) H 06/05/16 05:50 Calcium 7.2 mg/dL (8.5-10.1) L 06/05/16 05:50 Blood Type A POSITIVE 06/04/16 12:42 Antibody Screen Negative 06/04/16 12:42 INR 1.15 (0.82-1.09) H 06/05/16 05:50 A/P Gluteal abscess 1. Will perform bedside I&D 2. Above discussed with Dr. Willoughby and agrees Visit type - Case Type Case Type: ED Admission - Emergency Emergency Visit: Yes ED Registration Date: 06/04/16 Care time: The patient presented to the Emergency Department on the above date and was hospitalized for further evaluation of their emergent condition. - New patient This patient is new to me today: Yes Date on this admission: 06/05/16
[2016-06-05] MEDS ORDERED: LIDOCAINE HCL 1%, 10 MG/ML (20ML VIAL) NR ONE (11:40)
--- NOTE | 2016-06-05 11:41 | PROC ---
Incision and Drainage Indication/Location: Right gluteal fold Risks and Benefits Explained: Yes Consent on Chart: Yes Betadine cleansed: Yes Anesthesia: 1% Lidocaine Blade Size: 11 Drainage: 20 Irrigated with Normal Saline: Yes Iodinated Packin in Sterile Dressing Applied: Yes - Remarks Remarks: Wound culture sent for S/S
[2016-06-05] MEDS: amLODIPine BESYLATE 10 MG TABLET (FP) PO SCH (11:58)
[2016-06-05] MEDS: NICOTINE 14 MG/24 HOURS TOPICAL PATCH TD SCH (11:58)
[2016-06-05] MEDS: PANTOPRAZOLE 40 MG TABLET (FP) PO SCH (11:58)
[2016-06-05] MEDS: CHOLECALCIFEROL (VITAMIN D3) 1,000 UNIT TABLET (FP) PO SCH (11:58)
--- NOTE | 2016-06-05 12:03 | CONSULT ---
Consult - text type - Consultation Consultation Note: Neurology The patient is a 75-year-old woman, accompanied by daughter, with a significant past medical history of hypertension, hypercholesterolemia, asthma, anemia, adult onset insulin dependent diabetes mellitus and anxiety who presented to the emergency department for further evaluation of a headache. The patient has an ongoing abcess infection. She reports ongoing headaches. No dizziness, vision changes, speech difficulty, neck pain or stiffness, nausea, vomiting, diarrhea, hematochezia, melena, or numbness, tingling, or weakness to the extremities. Ct head without acute changes. Reports today her headache is better today but looks uncomfortable from abcess. Past History - Past Medical History Anemia: Yes Asthma: Yes Cancer: No Cardiac Disorders: Yes (AF ablation) CVA: No COPD: No CHF: No Dementia: No Diabetes: Yes (IDDM) GI Disorders: No Disorders: Yes (frequency) HTN: Yes Hypercholesterolemia: Yes Liver Disease: No Psychiatric Problems: Yes (ANXIETY.) Seizures: No Thyroid Disease: No - Surgical History Abdominal Surgery: Yes Appendectomy: No Cardiac Surgery: No Cholecystectomy: No Lung Surgery: No Neurologic Surgery: No Orthopedic Surgery: Yes (hammer toes,trigger finger) - Family Disease History Family Disease History: Diabetes: Grandparents, CA: Mother (htn) - Immunization History Immunization Up to Date: Yes - Psycho/Social/Smoking Cessation Hx Anxiety: No Suicidal Ideation: No Smoking Status: Yes Smoking History: Current every day smoker Have you smoked in the past 12 months: Yes Number of Cigarettes Smoked Daily: 6 'Breaking Loose' booklet given: 06/22/15 Hx Alcohol Use: No Drug/Substance Use Hx: No Substance Use Type: None Hx Substance Use Treatment: No - Past Medical History Allergies/Adverse Reactions: Allergies Allergy/AdvReac Type Severity Reaction Status Date / Time No Known Allergies Allergy Verified 06/04/16 11:42 Home Medications: Ambulatory Orders Amlodipine Besylate [Norvasc -] 10 mg PO DAILY 07/30/15 Aspirin [ASA -] 81 mg PO DAILY 07/30/15 Cholecalciferol (Vitamin D3) [Vitamin D3] 1,000 unit PO DAILY #30 tab.chew 08/01 Dexlansoprazole [Dexilant] 30 mg PO DAILY #30 08/02/15 Insulin Sliding Scale [Novolog Vial Sliding Scale -] 1 vial SQ ACHS units 08/01 Active Medications Acetaminophen/Butalbital/Caffeine (Fioricet -) 1 tablet PO Q6H PRN PRN Reason: FEVER OR PAIN Last Admin: 06/05/16 07:27 Dose: 1 tablet Amlodipine Besylate (Norvasc -) 10 mg PO DAILY [facility] Last Admin: 06/05/16 11:58 Dose: 10 mg Cholecalciferol (Vitamin D3 -) 1,000 unit PO DAILY [facility] Last Admin: 06/05/16 11:58 Dose: 1,000 unit Diltiazem HCl (Cardizem Cd -) 120 mg PO DAILY [facility] Heparin Sodium (Porcine) (Heparin -) 1,000 unit IVPUSH PRN PRN PRN Reason: Heparin Heparin Sodium (Porcine) (Heparin -) 5,000 unit IVPUSH PRN PRN PRN Reason: Heparin Heparin Sodium (Porcine) 25, (000 unit/ Sodium Chloride) 500 mls @ 20 mls/hr IV TITR ERMA; 1,000 UNIT/HR PRN Reason: Protocol Last Admin: 06/05/16 00:34 Dose: 20 mls/hr Insulin Aspart (Novolog Vial Sliding Scale -) 1 vial SQ ACHS ERMA PRN Reason: Protocol Last Admin: 06/05/16 11:19 Dose: 6 unit Morphine Sulfate (Morphine Injection -) 1 mg IVPUSH Q6H PRN PRN Reason: PAIN Last Admin: 06/05/16 12:01 Dose: 1 mg Nicotine (Nicoderm Patch -) 14 mg TD DAILY [facility] Last Admin: 06/05/16 11:58 Dose: 14 mg Pantoprazole Sodium (Protonix -) 40 mg PO DAILY [facility] Last Admin: 06/05/16 11:58 Dose: 40 mg Warfarin Sodium (Coumadin -) 5 mg PO DAILY@1800 [facility] Review of Systems GENERAL/CONSTITUTIONAL: No fever or chills. No weakness. HEAD, EYES, EARS, NOSE AND THROAT: No change in vision. No ear pain or discharge. No sore throat. CARDIOVASCULAR: No chest pain or shortness of breath. RESPIRATORY: No cough, wheezing, or hemoptysis. GASTROINTESTINAL: No nausea, vomiting, diarrhea or constipation. GENITOURINARY: No dysuria, frequency, or change in urination. MUSCULOSKELETAL: No joint or muscle swelling or pain. No neck or back pain. SKIN: Yes: Skin boil. No rash NEUROLOGIC: Yes: headache No: vertigo, loss of consciousness, or change in strength/sensation. ENDOCRINE: No increased thirst. No abnormal weight change. HEMATOLOGIC/LYMPHATIC: No anemia, easy bleeding, or history of blood clots. ALLERGIC/IMMUNOLOGIC: No hives or skin allergy. *Physical Exam - Vital Signs Last Vital Signs Temp Pulse Resp BP Pulse Ox 99.3 F 101 H 18 238/97 99 06/04/16 11:38 06/04/16 11:38 06/04/16 11:38 06/04/16 11:38 06/04/16 11:38 GENERAL: Awake, alert. Moaning in pain HEAD: No signs of trauma EYES: PERRLA, EOMI, sclera anicteric, conjunctiva clear ENT: Auricles normal inspection, hearing grossly normal, nares patent, oropharynx clear without exudates. Moist mucosa NECK: Normal ROM, supple, no lymphadenopathy, JVD, or masses LUNGS: Breath sounds equal, clear to auscultation bilaterally. No wheezes, and no crackles HEART: Regular rate and rhythm, normal S1 and S2, no murmurs, rubs or gallops ABDOMEN: Soft, nontender, normoactive bowel sounds. No guarding, no rebound. No masses EXTREMITIES: Normal range of motion, no edema. No clubbing or cyanosis. No cords, erythema, or tenderness NEUROLOGICAL: Cranial nerves II through XII grossly intact, sensory normal, strength equal, gait deferrred - RADIOLOGY EXAM: RAD/CHEST X-RAY PORTABLE IMPRESSION: Since 07/30/2015 at 1457 hours, the atelectasis at the right base has resolved. There is still a prominent mediastinum with weak inspiration. Angles are sharp. The bones and soft tissues are intact. There is a prominent knob and normal faizan. Follow-up recommended EXAM: CT/HEAD CT WITHOUT CONTRAST IMPRESSION: CT scan of the brain without intravenous contrast Since 07/30/2015, there remains moderate atrophy, ventricular dilatation and periventricular chronic microvascular ischemic changes. No mass lesion, gross acute infarct or intracranial hemorrhage is seen. There is no shift of the midline structures. The calvarium is intact. Calcification of the cavernous carotid arteries are present. Mild mucosal thickening in the ethmoid air cells and a trace of fluid in the left maxillary antrum layering posteriorly. The mastoid air cells are well aerated CBC,CMP WBC 18.9 K/mm3 (4.0-10.0) H 06/05/16 05:50 RBC 3.41 M/mm3 (3.60-5.2) L 06/05/16 05:50 Hgb 10.6 GM/dL (10.7-15.3) L D 06/05/16 05:50 Hct 32.4 % (32.4-45.2) D 06/05/16 05:50 MCV 94.8 fl (80-96) 06/05/16 05:50 MCHC 32.8 g/dl (32.0-36.0) 06/05/16 05:50 RDW 14.8 % (11.6-15.6) 06/05/16 05:50 Plt Count 163 K/MM3 (134-434) 06/05/16 05:50 MPV 10.4 fl (7.5-11.1) 06/05/16 05:50 Neutrophils % 85.4 % (42.8-82.8) H D 06/04/16 12:42 Lymphocytes % 8.4 % (8-40) D 06/04/16 12:42 Monocytes % 5.7 % (3.8-10.2) 06/04/16 12:42 Eosinophils % 0.0 % (0-4.5) D 06/04/16 12:42 Basophils % 0.5 % (0-2.0) 06/04/16 12:42 Sodium 137 mmol/L (136-145) 06/05/16 05:50 Potassium 4.2 mmol/L (3.5-5.1) 06/05/16 05:50 Chloride 105 mmol/L (98-107) 06/05/16 05:50 Carbon Dioxide 17 mmol/L (21-32) L D 06/05/16 05:50 Anion Gap 15 (8-16) 06/05/16 05:50 BUN 33 mg/dL (7-18) H 06/05/16 05:50 Creatinine 3.3 mg/dL (0.55-1.02) H 06/05/16 05:50 Creat Clearance w eGFR 13.56 (>60) 06/05/16 05:50 POC Glucometer 282 UNITS (()) 06/05/16 05:46 Random Glucose 268 mg/dL (74-106) H 06/05/16 05:50 Hemoglobin A1c % 9.9 % (4.8-6.0) H D 06/05/16 05:50 Lactic Acid 1.612 mmol/L (0.4-2.0) 06/04/16 14:32 Calcium 7.2 mg/dL (8.5-10.1) L 06/05/16 05:50 Magnesium 1.5 mg/dL (1.8-2.4) L D 06/05/16 05:50 Total Bilirubin 0.4 mg/dL (0.2-1.0) 06/05/16 05:50 AST 6 U/L (15-37) L D 06/05/16 05:50 ALT 8 U/L (12-78) L 06/05/16 05:50 Alkaline Phosphatase 65 U/L (45-117) 06/05/16 05:50 Creatine Kinase 82 IU/L (26-192) 06/04/16 12:42 Troponin I < 0.02 ng/ml (0.00-0.05) 06/04/16 12:42 Total Protein 5.4 g/dl (6.4-8.2) L 06/05/16 05:50 Albumin 2.3 g/dl (3.4-5.0) L 06/05/16 05:50 TSH 1.15 uIU/ml (0.358-3.74) D 06/05/16 05:50 Plan: 75-year-old woman, accompanied by daughter, with a significant past medical history of hypertension, hypercholesterolemia, asthma, anemia, adult onset insulin dependent diabetes mellitus and anxiety who presented to the emergency department for further evaluation of a headache. The patient has an ongoing abcess infection. She reports ongoing headaches. No dizziness, vision changes, speech difficulty, neck pain or stiffness, nausea, vomiting, diarrhea, hematochezia, melena, or numbness, tingling, or weakness to the extremities. Ct head without acute changes. Reports today her headache is better today but looks uncomfortable from abcess. Started on Fioricet and appears to be doing well on this. Can continue. Recommend optimized medical mgmt for infection, wound care.
--- NOTE | 2016-06-05 12:35 | EKG ---
Test Reason : Blood Pressure : / mmHG Vent. Rate : 066 BPM Atrial Rate : 066 BPM P-R Int : 148 ms QRS Dur : 076 ms QT Int : 414 ms P-R-T Axes : 028 -26 113 degrees QTc Int : 434 ms NORMAL SINUS RHYTHM NONSPECIFIC ST AND T WAVE ABNORMALITY ABNORMAL ECG WHEN COMPARED WITH ECG OF 04-JUN-2016 16:08, SINUS RHYTHM HAS REPLACED ATRIAL FIBRILLATION VENT. RATE HAS DECREASED BY 83 BPM T WAVE INVERSION NO LONGER EVIDENT IN INFERIOR LEADS Confirmed by DAVID MUELLER MD ([id number]) on 06/05/2016 12:35:25 PM Referred By: Confirmed By:DAVID MUELLER MD
--- NOTE | 2016-06-05 12:53 | PN ---
Teaching Attending Note Name of Resident: Antwon Grace ATTENDING PHYSICIAN STATEMENT I saw and evaluated the patient. I reviewed the resident's note and discussed the case with the resident. I agree with the resident's findings and plan as documented. SUBJECTIVE:JANE re-started she states after I&D of gluteal abscess. states it was improving this morning. states she took her medication at home prior to coming to the hospital and is compliant. was on coumadin in the past but was stopped after ablation. was on pradaxa for DVT in the past but stopped it after seeing commercials about bleeding risk. denies CP, SOB,fever, chills, palpitations, N/V /C/D OBJECTIVE: Last Vital Signs Temp Pulse Resp BP Pulse Ox 99.8 F H 66 22 138/76 97 06/05/16 10:00 06/05/16 10:00 06/05/16 10:00 06/05/16 10:00 06/05/16 04:25 General resting comfortable. slight irritation to lights being on in the room CV S1 S2 RRR no murmur/rub/gallop Lungs CTA B/L no wheezing/rales/rhonchi skin- refused at this time, just had I&D and is too painful to move ASSESSMENT AND PLAN: 75yo F with PMH aflutter s/p ablation, HTN, DM, dyslipidemia presented to the ER and was admitted for further evaluation of their emergent condition 1. Sepsis due to gluteal abscess- Tm 100.6. s/p I&D today by surgery. will f/u Cx reports. started on Cefazolin/vanco. will need to check vanco level. ID consulted. pain control 2. Afib with RVR- now sinus rhythm., received cardizem IVp in the ER and now on po. tolerating well. [id number] 5. will need anticoagulation. d/w pt risk and benefits. currently on heparin ggt. will start coumadin. not candidate for NOAC due to kidney function 3. HTN urgency- likely induced from pain from abscess. now improved. will cont to monitor. titrate medications to optimize control 4. Acute on CKD-baeline Cr 2.5-2.8 likely dehydration vs sepsis. received IVF in the ER. will cont to trend. good UOP. avoid nephrotoxic medication 5. JANE- likely induced from HTN and pain. Ct head negative for acute pathology. will monitor. fiorcet prn 6. acute normocytic anemia- no signs of bleeding. will repeat CBC in the evening as on hep ggt. no indication for txn. 7. Hypomagnesemia- Mg 800mg 8. DM- A1c 9.9. iss, bgm. not on medications at home? verify home meds. 9. DVT ppx- hep ggt/coumadin bridge
[2016-06-05] MEDS ORDERED: INSULIN DETEMIR 100 UNITS/ML MDV SQ ONE (14:35)
--- NOTE | 2016-06-05 14:47 | PN ---
Addendum entered and electronically signed by Antwon Grace RES 06/05/16 18: 38: Acute Hgb drop was 12.6 yesterday, this morning was 10.6 Repeat CBC this afternoon Original Note: Physical Exam: SUBJECTIVE: Patient seen and examined Pt is awake, alert and orineted to time, place and person Pt looks tired and weak Pt complained of leg cramping Pt complain of orthpnea, dyspnea on exertion, generalize fatigue OBJECTIVE: Vital Signs Period Temp Pulse Resp BP Sys/Renee Pulse Ox Last 24 Hr 99.1 F-99.8 F 64-71 20-22 129-152/55-84 93-98 GENERAL: The patient is awake, alert, and fully oriented, in no acute distress. HEAD: Normal with no signs of trauma. NECK: Trachea midline, full range of motion, supple. LUNGS: Breath sounds equal, crackels in b/l bases to auscultation bilaterally, no wheezes, no accessory muscle use. HEART: Regular rate and rhythm, S1, S2 with systolic murmur 3/6, rub or gallop. ABDOMEN: Soft, nontender, nondistended, normoactive bowel sounds, no guarding, no rebound, no hepatosplenomegaly, no masses. EXTREMITIES: 2+ pulses, warm, well-perfused, no edema. NEUROLOGICAL: Normal speech, gait not observed. PSYCH: Normal mood, normal affect. SKIN: Warm, dry, normal turgor, no rashes or lesions noted Laboratory Results - last 24 hr 06/05/16 06/05/16 06/05/16 05:46 05:50 05:50 WBC 18.9 H RBC 3.41 L Hgb 10.6 L D Hct 32.4 D MCV 94.8 MCHC 32.8 RDW 14.8 Plt Count 163 MPV 10.4 INR PTT (Actin FS) Sodium 137 Potassium 4.2 Chloride 105 Carbon Dioxide 17 L D Anion Gap 15 BUN 33 H Creatinine 3.3 H Creat Clearance w eGFR 13.56 POC Glucometer 282 Random Glucose 268 H Hemoglobin A1c % Calcium 7.2 L Magnesium 1.5 L D Total Bilirubin 0.4 AST 6 L D ALT 8 L Alkaline Phosphatase 65 Total Protein 5.4 L Albumin 2.3 L TSH 1.15 D 06/05/16 06/05/16 06/05/16 05:50 05:50 12:38 WBC RBC Hgb Hct MCV MCHC RDW Plt Count MPV INR 1.15 H PTT (Actin FS) 53.8 H D Sodium Potassium Chloride Carbon Dioxide Anion Gap BUN Creatinine Creat Clearance w eGFR POC Glucometer 281 Random Glucose Hemoglobin A1c % 9.9 H D Calcium Magnesium Total Bilirubin AST ALT Alkaline Phosphatase Total Protein Albumin TSH Active Medications Generic Name Dose Route Start Last Admin Trade Name Freq PRN Reason Stop Dose Admin Acetaminophen/Butalbital/Caffeine 1 tablet 06/04/16 22:37 06/05/16 13:18 Fioricet - PO 1 tablet Q6H PRN Administration FEVER OR PAIN Amlodipine Besylate 10 mg 06/05/16 10:00 06/05/16 11:58 Norvasc - PO 10 mg DAILY [facility] Administration Cholecalciferol 1,000 unit 06/05/16 10:00 06/05/16 11:58 Vitamin D3 - PO 1,000 unit DAILY [facility] Administration Diltiazem HCl 120 mg 06/05/16 12:00 06/05/16 12:42 Cardizem Cd - PO 120 mg DAILY [facility] Administration Heparin Sodium (Porcine) 1,000 unit 06/04/16 23:41 Heparin - IVPUSH PRN PRN Heparin Heparin Sodium (Porcine) 5,000 unit 06/04/16 23:41 Heparin - IVPUSH PRN PRN Heparin Heparin Sodium (Porcine) 25, 500 mls @ 20 mls/hr 06/04/16 23:45 06/05/16 00:34 000 unit/ Sodium Chloride IV 20 mls/hr TITR [facility] Administration Protocol 1,000 UNIT/HR Insulin Aspart 1 vial 06/05/16 08:45 06/05/16 12:40 Novolog Vial Sliding Scale - SQ 6 unit ACHS [facility] Administration Protocol Insulin Detemir 15 units 06/05/16 14:35 Levemir Vial SQ 06/05/16 14:36 ONCE ONE Insulin Detemir 15 units 06/06/16 22:00 Levemir Vial SQ HS [facility] Morphine Sulfate 1 mg 06/04/16 22:36 06/05/16 12:01 Morphine Injection - IVPUSH 1 mg Q6H PRN Administration PAIN Nicotine 14 mg 06/05/16 10:00 06/05/16 11:58 Nicoderm Patch - TD 14 mg DAILY [facility] Administration Pantoprazole Sodium 40 mg 06/05/16 10:00 06/05/16 11:58 Protonix - PO 40 mg DAILY [facility] Administration Warfarin Sodium 5 mg 06/05/16 18:00 Coumadin - PO DAILY@1800 [facility] CBC, BMP 06/05/16 05:50 06/05/16 05:50 Selected Entries 06/04/16 06/04/16 06/04/16 11:38 16:25 17:00 Temperature 99.3 F 100.6 F H Pulse Rate 101 H 150 H Blood Pressure 238/97 Laboratory Tests 06/04/16 06/04/16 06/04/16 12:42 12:42 12:42 INR PTT (Actin FS) VBG pH 7.35 Creat Clearance w eGFR 15.74 Hemoglobin A1c % Lactic Acid 2.358 H* Calcium Magnesium Troponin I < 0.02 Albumin 2.8 L TSH Urine Protein Urine Glucose (UA) Urine Nitrite Ur Leukocyte Esterase Urine WBC 06/04/16 06/04/16 06/05/16 14:32 18:00 05:50 INR PTT (Actin FS) VBG pH Creat Clearance w eGFR Hemoglobin A1c % Lactic Acid 1.612 Calcium 7.2 L Magnesium 1.5 L D Troponin I Albumin TSH 1.15 D Urine Protein 3+ H Urine Glucose (UA) 3+ H Urine Nitrite Negative Ur Leukocyte Esterase Negative Urine WBC 1 06/05/16 06/05/16 05:50 05:50 INR 1.15 H PTT (Actin FS) 53.8 H D VBG pH Creat Clearance w eGFR Hemoglobin A1c % 9.9 H D Lactic Acid Calcium Magnesium Troponin I Albumin TSH Urine Protein Urine Glucose (UA) Urine Nitrite Ur Leukocyte Esterase Urine WBC ASSESSMENT/PLAN: 75 year old female with pmh of HTN, HPLD, CKD, Anemia, Asthma, Diabetes, Paroxysmal AFIB s/p Ablation presented to the ED complaing of headache, pain and cellulitis in the right gluteal region, fatigue. Pt was found to be in rapid AFIB, Hypertensive urgency, with abscess and cellulitis in right gluteal. Sepsis from right Gluteal abscess/cellulitis fever 100.6, tachycardia, leukocytosis Cefazolin given in ED Vancomycin given Random Vanco level ID consulted Dr Ashford Consult surgery for Incision and drainage Moprhine 1mg Q4h Prn Paroxismal afib s/p ablation Pt came in rapid afib Converted to Sr after meds Cardizem IV given in ED 30mg Will switch to cardizem PO cardiology consulted Dr Griffith [id number] score 5 ON heparin drip Will start Coumadin 5mg PO, per pt preference and since pt has CKD with poor creatinine clearance INR in am Headache likely rt to hypertensive urgency r/o Migraine Pt came with BP of 238/97 Now BP has normalized, sheldon more headache Pt seen By neurology PRN Fioricet Diabetes HgbA1c 9.9 BGM ACHS NOvolog sliding scale Levemir 15U qhs CKD baseline 2.8, was 2.9 on admission, now 3.3 Avoid nephrotoxins Smoking Cessation Pt is a current smoker Nicotine patch FEN Fluid: none Electrolytes: chemistry in am Nutrition: diabetic/cardiac diet DVT prophylaxis: Heparin drip Disposition: keep on tele until abscess is drained, sepsis resolved and INR is therapeutic Visit type - Emergency Visit Emergency Visit: Yes ED Registration Date: 06/04/16 Care time: The patient presented to the Emergency Department on the above date and was hospitalized for further evaluation of their emergent condition. - New Patient This patient is new to me today: Yes Date on this admission: 06/05/16 - Critical Care Critical Care patient: No - Discharge Referral Referred to [facility] No
--- NOTE | 2016-06-05 16:15 | EKG ---
Test Reason : Blood Pressure : / mmHG Vent. Rate : 149 BPM Atrial Rate : 156 BPM P-R Int : 000 ms QRS Dur : 078 ms QT Int : 254 ms P-R-T Axes : 000 -18 188 degrees QTc Int : 400 ms POOR DATA QUALITY, INTERPRETATION MAY BE ADVERSELY AFFECTED ATRIAL FIBRILLATION WITH RAPID VENTRICULAR RESPONSE MARKED ST ABNORMALITY, POSSIBLE INFERIOR SUBENDOCARDIAL INJURY ABNORMAL ECG WHEN COMPARED WITH ECG OF 04-JUN-2016 13:03, SIGNIFICANT CHANGES HAVE OCCURRED Confirmed by DAVID MUELLER MD ([id number]) on 06/05/2016 4:15:33 PM Referred By: Confirmed By:DAVID MUELLER MD
--- NOTE | 2016-06-05 16:20 | EKG ---
Test Reason : Blood Pressure : / mmHG Vent. Rate : 078 BPM Atrial Rate : 078 BPM P-R Int : 142 ms QRS Dur : 074 ms QT Int : 388 ms P-R-T Axes : 076 -27 078 degrees QTc Int : 442 ms NORMAL SINUS RHYTHM NONSPECIFIC T WAVE ABNORMALITY ABNORMAL ECG WHEN COMPARED WITH ECG OF 30-JUL-2015 15:37, NO SIGNIFICANT CHANGE WAS FOUND Confirmed by AMI VILLAGRAN, DAVID ([id number]) on 06/05/2016 4:20:19 PM Referred By: Confirmed By:DAVID MUELLER MD
[2016-06-05 16:34] LABS: MCH 30.8 pg (25.7-33.7); MCHC 32.6 g/dl (32.0-36.0); MEAN CELL VOLUME 94.3 fl (80-96); MEAN PLT VOLUME 10.5 fl (7.5-11.1); PLATELET COUNT 163 K/MM3 (134-434); RDW 14.9 % (11.6-15.6); WHITE BLOOD COUNT 16.9 K/mm3 (4.0-10.0)
--- NOTE | 2016-06-05 16:52 | CONSULT ---
Consult Consult Specialty:: infectious diseases Reason for Consultation:: glueteal abscess - History of Present Illness History of Present Illness: 75 y/o F w/PMH of HTN, HLD, asthma, anemia, IDDM, CKD, anxiety, hx of afib admitted for JANE. JANE started 3 days ago patient had headache in the past headache in the past when she had a genito/ gluteal abscess approximately 1 year ago. At that time she went to [facility] and had I&D for abscess and was treated with IV abx for approx 1 week. 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 Cardio/Vascular: Yes: HTN, Hyperlipdemia, Other (Atrial flutter s/p ablation, PAD) Pulmonary: Yes: COPD Renal/: Yes: Renal Inusuff (stage 4), Other (Overactive Bladder) Psych: Yes: Depression Endocrine: Yes: Diabetes Mellitus (initially on oral agents, now on insulin) - Past Surgical History Past Surgical History: Yes: Colonoscopy (polyps a few years ago), Hysterectomy ( fibroids), Tubal Ligation, Upper Endoscopy (neg 1+ yrs ago) - Alcohol/Substance Use Hx Alcohol Use: No - Smoking History Smoking history: Current every day smoker Have you smoked in the past 12 months: Yes Aproximately how many cigarettes per day: 6 - Social History Usual Living Arrangement: With Child ADL: Family Assistance History of Recent Travel: No Home Medications - Allergies Allergies/Adverse Reactions: Allergies Allergy/AdvReac Type Severity Reaction Status Date / Time No Known Allergies Allergy Verified 06/04/16 11:42 - Home Medications Home Medications: Ambulatory Orders Amlodipine Besylate [Norvasc -] 10 mg PO DAILY 07/30/15 Aspirin [ASA -] 81 mg PO DAILY 07/30/15 Cholecalciferol (Vitamin D3) [Vitamin D3] 1,000 unit PO DAILY #30 tab.chew 08/01 Dexlansoprazole [Dexilant] 30 mg PO DAILY #30 08/02/15 Insulin Sliding Scale [Novolog Vial Sliding Scale -] 1 vial SQ ACHS units 08/01 Insulin (Levemir) [Levemir Flexpen -] 15 units SQ HS 06/05/16 Family Disease History - Family Disease History Family Disease History: Diabetes: Grandparent, Mother, Sister (lung cancer), [place] : Sister Review of Systems - Review of Systems Constitutional: reports: Weakness, Other Eyes: reports: No Symptoms HENT: reports: No Symptoms Neck: reports: No Symptoms Cardiovascular: reports: No Symptoms Respiratory: reports: No Symptoms Gastrointestinal: reports: No Symptoms Genitourinary: reports: No Symptoms Musculoskeletal: reports: Back Pain Integumentary: reports: Erythema, Lump Neurological: reports: Other (headaches) Endocrine: reports: Increased Thirst, Other Hematology/Lymphatic: reports: No Symptoms Psychiatric: reports: No Symptoms Physical Exam Vital Signs: Vital Signs Temperature 98.5 F 06/05/16 14:35 Pulse Rate 68 06/05/16 14:35 Respiratory Rate 19 06/05/16 14:35 Blood Pressure 140/72 06/05/16 14:35 O2 Sat by Pulse Oximetry (%) 98 06/05/16 09:00 Constitutional: Yes: Calm, Mild Distress Eyes: Yes: Conjunctiva Clear HENT: Yes: Atraumatic Neck: Yes: Supple, Trachea Midline Cardiovascular: Yes: Regular Rate and Rhythm Respiratory: Yes: Regular, CTA Bilaterally Gastrointestinal: Yes: Normal Bowel Sounds, Soft Musculoskeletal: Yes: WNL Extremities: Yes: WNL Integumentary: Yes: Other Wound/Incision: Yes: Dressing Dry and Intact, Other Neurological: Yes: Alert, Oriented Psychiatric: Yes: Alert, Oriented Labs: CBC, BMP 06/05/16 16:00 06/05/16 05:50 Assessment/Plan - Problem Paroxysmal atrial fibrillation with RVR Code(s): I48.0 - PAROXYSMAL ATRIAL FIBRILLATION CKD stage 4 due to type 2 diabetes mellitus Code(s): E11.22 - TYPE 2 DIABETES MELLITUS W DIABETIC CHRONIC KIDNEY DISEASE N18.4 - CHRONIC KIDNEY DISEASE, STAGE 4 (SEVERE) Intractable headache Code(s): R51 - HEADACHE Asthma Code(s): J45.909 - UNSPECIFIED ASTHMA, UNCOMPLICATED IDDM (insulin dependent diabetes mellitus) Code(s): E11.9 - TYPE 2 DIABETES MELLITUS WITHOUT COMPLICATIONS Z79.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
[2016-06-05] MEDS: WARFARIN NA 5 MG TABLET (UD) PO SCH (17:27)
[2016-06-05] MEDS: PIPERACILLIN/TAZOB 2.25 GM 50 ML IVPB SCH (17:27)
[2016-06-05] MEDS: CLINDAMYCIN 600MG PREMIX IVPB 50 ML IVPB SCH (17:27)
[2016-06-06] MEDS: CLINDAMYCIN 600MG PREMIX IVPB 50 ML IVPB SCH ×3 (03:42→17:44)
[2016-06-06] MEDS: PIPERACILLIN/TAZOB 2.25 GM 50 ML IVPB SCH ×3 (03:44→17:43)
[2016-06-06] MEDS: INSULIN SLIDING SCALE (NOVOLOG) 1 VIAL SQ SCH ×4 (06:05→22:23)
[2016-06-06 07:35] LABS: MCH 30.8 pg (25.7-33.7); MCHC 32.5 g/dl (32.0-36.0); MEAN CELL VOLUME 94.6 fl (80-96); MEAN PLT VOLUME 10.1 fl (7.5-11.1); PLATELET COUNT 160 K/MM3 (134-434); RDW 14.7 % (11.6-15.6); WHITE BLOOD COUNT 16.4 K/mm3 (4.0-10.0)
[2016-06-06 07:52] LABS: PHOSPHOROUS 4.3 mg/dL (2.5-4.9)
[2016-06-06] MEDS ORDERED: METOPROLOL TARTRATE 5 MG/5 ML VIAL IVPUSH ONE (08:45)
[2016-06-06] MEDS ORDERED: dilTIAZem HCL 50 MG/10 ML - 10 ML VIAL IVPUSH ONE (09:15)
[2016-06-06 09:20] LABS: INR 1.15 (0.82-1.09); PROTHROMBIN TIME (PATIENT) 12.7 SEC (9.98-11.88)
[2016-06-06] MEDS: NICOTINE 14 MG/24 HOURS TOPICAL PATCH TD SCH (09:22)
[2016-06-06] MEDS: CHOLECALCIFEROL (VITAMIN D3) 1,000 UNIT TABLET (FP) PO SCH (09:23)
[2016-06-06] MEDS: PANTOPRAZOLE 40 MG TABLET (FP) PO SCH (09:23)
[2016-06-06] MEDS: HEPARIN - 25,000 UNIT in SODIUM CHLORIDE 495 ML IV SCH ×2 (09:27→22:34)
[2016-06-06] MEDS: amLODIPine BESYLATE 10 MG TABLET (FP) PO SCH (09:27)
[2016-06-06] MEDS: HEPARIN NA (PORCINE) 5,000 UNITS/ML 1ML VIAL IVPUSH PRN ×2 (09:28→17:46)
--- NOTE | 2016-06-06 09:30 | PN ---
Progress Note, Physician - Current Medication List Current Medications: Active Medications Acetaminophen/Butalbital/Caffeine (Fioricet -) 1 tablet PO Q6H PRN PRN Reason: FEVER OR PAIN Last Admin: 06/05/16 13:18 Dose: 1 tablet Amlodipine Besylate (Norvasc -) 10 mg PO DAILY [facility] Last Admin: 06/05/16 11:58 Dose: 10 mg Cholecalciferol (Vitamin D3 -) 1,000 unit PO DAILY [facility] Last Admin: 06/05/16 11:58 Dose: 1,000 unit Diltiazem HCl (Cardizem Cd -) 120 mg PO DAILY [facility] Last Admin: 06/05/16 12:42 Dose: 120 mg Heparin Sodium (Porcine) (Heparin -) 1,000 unit IVPUSH PRN PRN PRN Reason: Heparin Heparin Sodium (Porcine) (Heparin -) 5,000 unit IVPUSH PRN PRN PRN Reason: Heparin Heparin Sodium (Porcine) 25, (000 unit/ Sodium Chloride) 500 mls @ 20 mls/hr IV TITR [facility]; 1,000 UNIT/HR PRN Reason: Protocol Last Admin: 06/05/16 17:29 Dose: 20 mls/hr Clindamycin Phosphate (Cleocin 600 Mg Premix Ivpb -) 50 mls @ 100 mls/hr IVPB Q8H-IV [facility] Last Admin: 06/06/16 03:42 Dose: 100 mls/hr Piperacillin Sod/Tazobactam Sod (Zosyn 2.25gm Ivpb (Pre-Docked)) 50 mls @ 100 mls/hr IVPB Q8H-IV [facility] PRN Reason: Protocol Last Admin: 06/06/16 03:44 Dose: 100 mls/hr Insulin Aspart (Novolog Vial Sliding Scale -) 1 vial SQ ACHS [facility] PRN Reason: Protocol Last Admin: 06/06/16 06:05 Dose: Not Given Insulin Detemir (Levemir Vial) 15 units SQ HS [facility] Morphine Sulfate (Morphine Injection -) 1 mg IVPUSH Q6H PRN PRN Reason: PAIN Last Admin: 06/05/16 12:01 Dose: 1 mg Nicotine (Nicoderm Patch -) 14 mg TD DAILY [facility] Last Admin: 06/05/16 11:58 Dose: 14 mg Pantoprazole Sodium (Protonix -) 40 mg PO DAILY [facility] Last Admin: 06/05/16 11:58 Dose: 40 mg Warfarin Sodium (Coumadin -) 5 mg PO DAILY@1800 [facility] Last Admin: 06/05/16 17:27 Dose: 5 mg - Objective Vital Signs: Vital Signs Temperature 97.8 F 06/06/16 08:06 Pulse Rate 71 06/06/16 08:06 Respiratory Rate 18 06/06/16 08:06 Blood Pressure 131/56 06/06/16 08:06 O2 Sat by Pulse Oximetry (%) 98 06/05/16 21:00 Labs: CBC, BMP 06/06/16 05:35 06/05/16 05:50 INR, PTT INR 1.15 (0.82-1.09) H 06/06/16 05:35 Problem List - Problems (1) Current smoker Code(s): F17.200 - NICOTINE DEPENDENCE, UNSPECIFIED, UNCOMPLICATED (2) IDDM (insulin dependent diabetes mellitus) Code(s): E11.9 - TYPE 2 DIABETES MELLITUS WITHOUT COMPLICATIONS Z79.4 - ASSISTED (CURRENT) USE OF INSULIN (3) Intractable headache Code(s): R51 - HEADACHE (4) Paroxysmal atrial fibrillation with RVR Code(s): I48.0 - PAROXYSMAL ATRIAL FIBRILLATION (5) CKD stage 4 due to type 2 diabetes mellitus Code(s): E11.22 - TYPE 2 DIABETES MELLITUS W DIABETIC CHRONIC KIDNEY DISEASE N18.4 - CHRONIC KIDNEY DISEASE, STAGE 4 (SEVERE) (6) COPD (chronic obstructive pulmonary disease) Code(s): J44.9 - CHRONIC OBSTRUCTIVE PULMONARY DISEASE, UNSPECIFIED Qualifiers : COPD type: emphysema Emphysema type: unspecified Qualified Code(s) : J43.9 - Emphysema, unspecified (7) History of DVT (deep vein thrombosis) Code(s): Z86.718 - PERSONAL HISTORY OF OTHER VENOUS THROMBOSIS AND EMBOLISM (8) History of atrial flutter Code(s): Z86.79 - PERSONAL HISTORY OF OTHER DISEASES OF THE CIRCULATORY SYSTEM (9) Hyperlipidemia Code(s): E78.5 - HYPERLIPIDEMIA, UNSPECIFIED (10) Hypertension Code(s): I10 - ESSENTIAL (PRIMARY) HYPERTENSION (11) Peripheral arterial disease Code(s): I73.9 - PERIPHERAL VASCULAR DISEASE, UNSPECIFIED Assessment/Plan 75 year old woman with a history of HTN, HLD, heavy smoking, PAD with claudication, DM II, Atrial flutter s/p ablation years ago, CKD, DVT 2016 tx with course of full AC, depression, chronic fatigue, chronic severe JOHNSON of uncertain etiology, presented to ER with severe headaches and recurrent abscess and incidentally noted to have paroxsymal SVT (likely AFib) with RVR to 150s. Pt was given cardizem in ER and started on heparin gtt, converted to NSR. Pt. seen and examined this am in nad. States she is feeling better, still has a headache but less intense. Denies any chest pain or palpitations. No change in her chronic JOHNSON. No change in her chronic fatigue. No pnd, orthopnea or LE edema. Of note she has not been on full AC as her prior arrhythmia was aflutter and that was ablated thus no longer required full AC. She was treated recently with full AC for a DVT. She has had event monitors as an outpatient that never detected AFib or recurrence of Aflutter. She was taken off of her bblocker in the past few months in consideration for its contribution to her chronic fatigue however there was no change in her symptoms. She had a right and left heart cardiac catheterization in the last 2 years that showed no significant pulmonary HTN and no sig coronary artery disease. Arrhythmia-appears to be newly diagnosed Paroxysmal Afib with RVR, with a history of Aflutter s/p ablation with no recorded recurrence -recurrent AFib with RVR overnight and this am -currently back in NSR -increase cardizem CD to 240mg daily -heparin gtt to coumadin for goal INR 2-3 -cont tele given recurrent AFib with RVR -plan for additional event monitor as outpatient HTN-adequately controlled -cont home meds and start cardizem as above SOB-chronic, likely secondary to smoking and depression, chronic fatigue -no sign of CHF -SOB is chronic, unlikely a result of arrhythmia -f/up Dr. Cali her lapper Headaches -as per medicine Abscess -as per medicine
[2016-06-06] MEDS ORDERED: dilTIAZem HCL 50 MG/10 ML - 10 ML VIAL IVPUSH PRN (09:31)
--- NOTE | 2016-06-06 09:55 | PN ---
Progress Note (short form) - Note Progress Note: Neurology The patient is a 75-year-old woman, accompanied by daughter, with a significant past medical history of hypertension, hypercholesterolemia, asthma, anemia, adult onset insulin dependent diabetes mellitus and anxiety who presented to the emergency department for further evaluation of a headache. The patient has an ongoing abcess infection. She reports ongoing headaches. No dizziness, vision changes, speech difficulty, neck pain or stiffness, nausea, vomiting, diarrhea, hematochezia, melena, or numbness, tingling, or weakness to the extremities. Ct head without acute changes. Reports today her headache is resolved and was sleeping comfortably this morning. Active Medications Acetaminophen/Butalbital/Caffeine (Fioricet -) 1 tablet PO Q6H PRN PRN Reason: FEVER OR PAIN Last Admin: 06/05/16 07:27 Dose: 1 tablet Amlodipine Besylate (Norvasc -) 10 mg PO DAILY [facility] Last Admin: 06/05/16 11:58 Dose: 10 mg Cholecalciferol (Vitamin D3 -) 1,000 unit PO DAILY [facility] Last Admin: 06/05/16 11:58 Dose: 1,000 unit Diltiazem HCl (Cardizem Cd -) 120 mg PO DAILY [facility] Heparin Sodium (Porcine) (Heparin -) 1,000 unit IVPUSH PRN PRN PRN Reason: Heparin Heparin Sodium (Porcine) (Heparin -) 5,000 unit IVPUSH PRN PRN PRN Reason: Heparin Heparin Sodium (Porcine) 25, (000 unit/ Sodium Chloride) 500 mls @ 20 mls/hr IV TITR ERMA; 1,000 UNIT/HR PRN Reason: Protocol Last Admin: 06/05/16 00:34 Dose: 20 mls/hr Insulin Aspart (Novolog Vial Sliding Scale -) 1 vial SQ ACHS REMA PRN Reason: Protocol Last Admin: 06/05/16 11:19 Dose: 6 unit Morphine Sulfate (Morphine Injection -) 1 mg IVPUSH Q6H PRN PRN Reason: PAIN Last Admin: 06/05/16 12:01 Dose: 1 mg Nicotine (Nicoderm Patch -) 14 mg TD DAILY [facility] Last Admin: 06/05/16 11:58 Dose: 14 mg Pantoprazole Sodium (Protonix -) 40 mg PO DAILY [facility] Last Admin: 06/05/16 11:58 Dose: 40 mg Warfarin Sodium (Coumadin -) 5 mg PO DAILY@1800 [facility] *Physical Exam Vital Signs Period Temp Pulse Resp BP Sys/Renee Pulse Ox Last 24 Hr 97.5 F-99.8 F 64-85 18-22 130-152/52-88 98 GENERAL: Awake, alert. Moaning in pain HEAD: No signs of trauma EYES: PERRLA, EOMI, sclera anicteric, conjunctiva clear ENT: Auricles normal inspection, hearing grossly normal, nares patent, oropharynx clear without exudates. Moist mucosa NECK: Normal ROM, supple, no lymphadenopathy, JVD, or masses LUNGS: Breath sounds equal, clear to auscultation bilaterally. No wheezes, and no crackles HEART: Regular rate and rhythm, normal S1 and S2, no murmurs, rubs or gallops ABDOMEN: Soft, nontender, normoactive bowel sounds. No guarding, no rebound. No masses EXTREMITIES: Normal range of motion, no edema. No clubbing or cyanosis. No cords, erythema, or tenderness NEUROLOGICAL: Cranial nerves II through XII grossly intact, sensory normal, strength equal, gait deferrred - RADIOLOGY EXAM: RAD/CHEST X-RAY PORTABLE IMPRESSION: Since 07/30/2015 at 1457 hours, the atelectasis at the right base has resolved. There is still a prominent mediastinum with weak inspiration. Angles are sharp. The bones and soft tissues are intact. There is a prominent knob and normal faizan. Follow-up recommended EXAM: CT/HEAD CT WITHOUT CONTRAST IMPRESSION: CT scan of the brain without intravenous contrast Since 07/30/2015, there remains moderate atrophy, ventricular dilatation and periventricular chronic microvascular ischemic changes. No mass lesion, gross acute infarct or intracranial hemorrhage is seen. There is no shift of the midline structures. The calvarium is intact. Calcification of the cavernous carotid arteries are present. Mild mucosal thickening in the ethmoid air cells and a trace of fluid in the left maxillary antrum layering posteriorly. The mastoid air cells are well aerated CBC,CMP WBC 18.9 K/mm3 (4.0-10.0) H 06/05/16 05:50 RBC 3.41 M/mm3 (3.60-5.2) L 06/05/16 05:50 Hgb 10.6 GM/dL (10.7-15.3) L D 06/05/16 05:50 Hct 32.4 % (32.4-45.2) D 06/05/16 05:50 MCV 94.8 fl (80-96) 06/05/16 05:50 MCHC 32.8 g/dl (32.0-36.0) 06/05/16 05:50 RDW 14.8 % (11.6-15.6) 06/05/16 05:50 Plt Count 163 K/MM3 (134-434) 06/05/16 05:50 MPV 10.4 fl (7.5-11.1) 06/05/16 05:50 Neutrophils % 85.4 % (42.8-82.8) H D 06/04/16 12:42 Lymphocytes % 8.4 % (8-40) D 06/04/16 12:42 Monocytes % 5.7 % (3.8-10.2) 06/04/16 12:42 Eosinophils % 0.0 % (0-4.5) D 06/04/16 12:42 Basophils % 0.5 % (0-2.0) 06/04/16 12:42 Sodium 137 mmol/L (136-145) 06/05/16 05:50 Potassium 4.2 mmol/L (3.5-5.1) 06/05/16 05:50 Chloride 105 mmol/L (98-107) 06/05/16 05:50 Carbon Dioxide 17 mmol/L (21-32) L D 06/05/16 05:50 Anion Gap 15 (8-16) 06/05/16 05:50 BUN 33 mg/dL (7-18) H 06/05/16 05:50 Creatinine 3.3 mg/dL (0.55-1.02) H 06/05/16 05:50 Creat Clearance w eGFR 13.56 (>60) 06/05/16 05:50 POC Glucometer 282 UNITS (()) 06/05/16 05:46 Random Glucose 268 mg/dL (74-106) H 06/05/16 05:50 Hemoglobin A1c % 9.9 % (4.8-6.0) H D 06/05/16 05:50 Lactic Acid 1.612 mmol/L (0.4-2.0) 06/04/16 14:32 Calcium 7.2 mg/dL (8.5-10.1) L 06/05/16 05:50 Magnesium 1.5 mg/dL (1.8-2.4) L D 06/05/16 05:50 Total Bilirubin 0.4 mg/dL (0.2-1.0) 06/05/16 05:50 AST 6 U/L (15-37) L D 06/05/16 05:50 ALT 8 U/L (12-78) L 06/05/16 05:50 Alkaline Phosphatase 65 U/L (45-117) 06/05/16 05:50 Creatine Kinase 82 IU/L (26-192) 06/04/16 12:42 Troponin I < 0.02 ng/ml (0.00-0.05) 06/04/16 12:42 Total Protein 5.4 g/dl (6.4-8.2) L 06/05/16 05:50 Albumin 2.3 g/dl (3.4-5.0) L 06/05/16 05:50 TSH 1.15 uIU/ml (0.358-3.74) D 06/05/16 05:50 Plan: 75-year-old woman, accompanied by daughter, with a significant past medical history of hypertension, hypercholesterolemia, asthma, anemia, adult onset insulin dependent diabetes mellitus and anxiety who presented to the emergency department for further evaluation of a headache. The patient has an ongoing abcess infection. She reports ongoing headaches. No dizziness, vision changes, speech difficulty, neck pain or stiffness, nausea, vomiting, diarrhea, hematochezia, melena, or numbness, tingling, or weakness to the extremities. Ct head without acute changes. Reports today her headache is better today but looks uncomfortable from abcess. Started on Fioricet and appears to be doing well on this. No headache today. Recommend optimized medical mgmt for infection , wound care.
[2016-06-06 10:47] LABS: CALCIUM 7.7 mg/dL (8.5-10.1); COCKROFT - GAULT 18.734; CREATININE 3.6 mg/dL (0.55-1.02)
--- NOTE | 2016-06-06 11:34 | PN ---
Progress Note (short form) - Note Progress Note: Day #1 s/p bedside I&D right gluteal abscess. C/o incisional tenderness. Pain management via PRN meds. Last Vital Signs Temp Pulse Resp BP Pulse Ox 97.8 F 71 18 131/56 95 06/06/16 08:06 06/06/16 08:06 06/06/16 08:06 06/06/16 08:06 06/06/16 08:00 CBC, BMP 06/06/16 05:35 06/06/16 05:35 PE gen: nad Buttock: Packing removed. right glute less indurated. Problem List - Problems (1) Cellulitis and abscess of buttock Assessment/Plan: Irrigated wound and repacked on rounds. Daily dressing changes ordered f/u wound culture iv abx Wash with warm soapy water after each bowel movement Cont care per medicine No further surgical intervention Reconsult PRN Above plan discussed with Dr. Willoughby and agrees
[2016-06-06] MEDS ORDERED: KETOROLAC TROMETHAMINE 15 MG/ML VIAL IVPUSH ONE (12:58)
--- NOTE | 2016-06-06 13:22 | PN ---
Physical Exam: SUBJECTIVE: Patient seen and examined Pt is short of breath at rest Pt become more dyspneic with minimal exertion NO fever, no chest pain Pt went into afib overnight and return to sinus rhythm this morning Multiple episodes of tachycardia with heart rate in 130's, 140's, 150's, 160's OBJECTIVE: Vital Signs Period Temp Pulse Resp BP Sys/Renee Pulse Ox Last 24 Hr 97.5 F-99.8 F 68-141 18-22 122-140/52-88 95-98 GENERAL: The patient is awake, alert, and fully oriented, in moderate distress. HEAD: Normal with no signs of trauma. NECK: Trachea midline, full range of motion, supple. LUNGS: Breath sounds equal, crackles in b/l bases to auscultation bilaterally, no wheezes HEART: Regular rate and rhythm, S1, S2 with systolic murmur 3/6, rub or gallop. ABDOMEN: Soft, nontender, nondistended, normoactive bowel sounds, no guarding, no rebound, no hepatosplenomegaly, no masses. EXTREMITIES: 2+ pulses, warm, well-perfused, no edema. NEUROLOGICAL: Normal speech, gait not observed. PSYCH: Normal mood, normal affect. SKIN: Warm, dry, normal turgor, Right gluteal abscess with packing s/p Incision and drainage Laboratory Results - last 24 hr 06/05/16 06/05/16 06/05/16 15:40 16:00 16:00 WBC RBC Hgb Hct MCV MCHC RDW Plt Count MPV INR PTT (Actin FS) Sodium Potassium Chloride Carbon Dioxide Anion Gap BUN Creatinine POC Glucometer 226 Random Glucose Calcium Phosphorus Magnesium Ferritin 123.806 Random Vancomycin 12.651 06/05/16 06/05/16 06/06/16 16:00 22:35 05:32 WBC 16.9 H RBC 3.30 L Hgb 10.2 L Hct 31.1 L MCV 94.3 MCHC 32.6 RDW 14.9 Plt Count 163 MPV 10.5 INR PTT (Actin FS) Sodium Potassium Chloride Carbon Dioxide Anion Gap BUN Creatinine POC Glucometer 182 129 Random Glucose Calcium Phosphorus Magnesium Ferritin Random Vancomycin 06/06/16 06/06/16 06/06/16 05:35 05:35 05:35 WBC 16.4 H RBC 3.20 L Hgb 9.8 L Hct 30.3 L MCV 94.6 MCHC 32.5 RDW 14.7 Plt Count 160 MPV 10.1 INR PTT (Actin FS) 41.8 H Sodium Potassium Chloride Carbon Dioxide Anion Gap BUN Creatinine POC Glucometer Random Glucose Calcium Phosphorus 4.3 D Magnesium 2.0 D Ferritin Random Vancomycin 06/06/16 06/06/16 06/06/16 05:35 05:35 11:39 WBC RBC Hgb Hct MCV MCHC RDW Plt Count MPV INR 1.15 H PTT (Actin FS) Sodium 137 Potassium 4.0 Chloride 105 Carbon Dioxide 19 L Anion Gap 13 BUN 41 H D Creatinine 3.6 H POC Glucometer 220 Random Glucose 123 H D Calcium 7.7 L Phosphorus Magnesium Ferritin Random Vancomycin Active Medications Generic Name Dose Route Start Last Admin Trade Name Freq PRN Reason Stop Dose Admin Acetaminophen/Butalbital/Caffeine 1 tablet 06/04/16 22:37 06/05/16 13:18 Fioricet - PO 1 tablet Q6H PRN Administration FEVER OR PAIN Amlodipine Besylate 10 mg 06/05/16 10:00 06/06/16 09:27 Norvasc - PO 10 mg DAILY [facility]MA Administration Cholecalciferol 1,000 unit 06/05/16 10:00 06/06/16 09:23 Vitamin D3 - PO 1,000 unit DAILY [facility] Administration Dexamethasone Sodium Phosphate 10 mg 06/06/16 12:57 Decadron Injection - IVPUSH 06/06/16 12:58 ONCE ONE Diltiazem HCl 240 mg 06/06/16 09:30 06/06/16 10:09 Cardizem Cd - PO Not Given DAILY [facility] Diltiazem HCl 10 mg 06/06/16 09:31 06/06/16 12:14 Cardizem Injection - IVPUSH 10 mg Q2H PRN Administration TACHYCARDIA Heparin Sodium (Porcine) 1,000 unit 06/04/16 23:41 06/06/16 09:28 Heparin - IVPUSH 1,000 unit PRN PRN Administration Heparin Heparin Sodium (Porcine) 5,000 unit 06/04/16 23:41 Heparin - IVPUSH PRN PRN Heparin Heparin Sodium (Porcine) 25, 500 mls @ 20 mls/hr 06/04/16 23:45 06/06/16 09:27 000 unit/ Sodium Chloride IV 22 mls/hr TITR [facility]MA Administration Protocol 1,000 UNIT/HR Clindamycin Phosphate 50 mls @ 100 mls/hr 06/05/16 18:00 06/06/16 09:22 Cleocin 600 Mg Premix Ivpb - IVPB 100 mls/hr Q8H-IV [facility] Administration Piperacillin Sod/Tazobactam Sod 50 mls @ 100 mls/hr 06/05/16 18:00 06/06/16 09: 22 Zosyn 2.25gm Ivpb (Pre-Docked) IVPB 100 mls/hr Q8H-IV [facility] Administration Protocol Insulin Aspart 1 vial 06/05/16 08:45 06/06/16 11:42 Novolog Vial Sliding Scale - SQ 4 unit ACHS [facility] Administration Protocol Insulin Detemir 15 units 06/06/16 22:00 Levemir Vial SQ HS ER[facility] Ketorolac Tromethamine 15 mg 06/06/16 12:58 Toradol Injection - IVPUSH 06/06/16 12:59 ONCE ONE Magnesium Sulfate 2 gm 06/06/16 12:57 Magnesium Sulfate IVPB 06/06/16 12:58 ONCE ONE Metoclopramide HCl 10 mg 06/06/16 12:58 Reglan Injection - IVPUSH 06/06/16 12:59 ONCE ONE Morphine Sulfate 1 mg 06/04/16 22:36 06/05/16 12:01 Morphine Injection - IVPUSH 1 mg Q6H PRN Administration PAIN Nicotine 14 mg 06/05/16 10:00 06/06/16 09:22 Nicoderm Patch - TD 14 mg DAILY [facility] Administration Pantoprazole Sodium 40 mg 06/05/16 10:00 06/06/16 09:23 Protonix - PO 40 mg DAILY [facility] Administration Warfarin Sodium 5 mg 06/05/16 18:00 06/05/16 17:27 Coumadin - PO 5 mg DAILY@1800 [facility] Administration CBC, BMP 06/06/16 05:35 06/06/16 05:35 ASSESSMENT/PLAN: 75 year old female with pmh of HTN, HPLD, CKD, Anemia, Asthma, Diabetes, Paroxysmal AFIB s/p Ablation presented to the ED complaing of headache, pain and cellulitis in the right gluteal region, fatigue. Pt was found to be in rapid AFIB, Hypertensive urgency, with abscess and cellulitis in right gluteal. Sepsis from right Gluteal abscess/cellulitis fever 100.6, tachycardia, leukocytosis on admission Cefazolin and Vancomycin given on admission ID consulted Dr Ashford, started Clindamycin 600mg IV and Zosyn 2.25gm Surgery consulted Incision and drainage done yesterday Moprhine 1mg Q4h Prn Acute Hypoxic respiratory Failure likely related to severe COPD Pt is a chronic smoker Pt had stopped taking her inhalers Will consult pulmonary Dr Cali Consider Spiriva Consider Pulmicort O2 keep O2 sat >88% Paroxismal afib s/p ablation Pt came in rapid afib, Converted to Sr after meds, Cardizem IV given in ED 30mg Was switch to cardizem PO 120mg Po cardiology consulted Dr Griffith Return back to afib with RVR Discussed with cardiology Stat EKG Cardizem 10 mg IV PRN q2h Increase cardizem PO to 240mg daily [id number] score 5 ON heparin drip start Coumadin 5mg PO yesterday Will continue until therapeutic INR in am Headache likely rt to hypertensive urgency r/o Migraine Pt came with BP of 238/97 Now BP has normalized, sheldon more headache Pt seen By neurology PRN Fioricet Will give headache Cocktail with Decadron 10mg, Ketorolac 15mg, Magnesium sulfate 2gm, Regaln 10 mg IV Diabetes HgbA1c 9.9 BGM ACHS NOvolog sliding scale Levemir 15U qhs Acute Drop in Hgb Hbg was 12.6 on admission, later 10.6 , 10.2, Now 9.8 No know source of bleeding Iron studies pending cbc in am CKD baseline 2.8, was 2.9 on admission, now 3.6 Avoid nephrotoxins Consider renal consult consider urine lytes and Cr Smoking Cessation Pt is a current smoker Nicotine patch FEN Fluid: none Electrolytes: chemistry in am Nutrition: diabetic/cardiac diet DVT prophylaxis: Heparin drip Disposition: keep on tele until abscess is drained, sepsis resolved and INR is therapeutic Visit type - Emergency Visit Emergency Visit: Yes ED Registration Date: 06/04/16 Care time: The patient presented to the Emergency Department on the above date and was hospitalized for further evaluation of their emergent condition. - New Patient This patient is new to me today: Yes Date on this admission: 06/06/16 - Critical Care Critical Care patient: No - Discharge Referral Referred to [facility] Med P.C.: No
--- NOTE | 2016-06-06 13:36 | CON.PULM ---
Consult Consult Specialty:: PULMONARY Referred by:: VERO Reason for Consultation:: SOB - History of Present Illness Chief Complaint: SOB History of Present Illness: The patient is a 75-year-old woman, with a significant past medical history of hypertension, hypercholesterolemia, copd active smoker, anemia, adult onset insulin dependent diabetes mellitus and anxiety who presents to the emergency department for further evaluation of a headache. No recent head trauma. the patient was noted to complain of a headache this morning with associated episodes of shaking chills. Patient's glucose was measured and was reportedly to be 400. She had a similar presentation, over 1 year ago, where she was found to have a skin boil that was lanced and her headache resolved. Today, the patient's daughter was noted to have a lincoln-rectal skin boil. 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: Peripheral Neuropathy Cardio/Vascular: Yes: HTN, Hyperlipdemia, Other (Atrial flutter s/p ablation, PAD) Pulmonary: Yes: COPD Renal/: Yes: Renal Inusuff (stage 4), Other (Overactive Bladder) Psych: Yes: Depression Endocrine: Yes: Diabetes Mellitus (initially on oral agents, now on insulin) - Past Surgical History Past Surgical History: Yes: Colonoscopy (polyps a few years ago), Hysterectomy ( fibroids), Tubal Ligation, Upper Endoscopy (neg 1+ yrs ago) - Alcohol/Substance Use Hx Alcohol Use: No - Smoking History Smoking history: Current every day smoker Have you smoked in the past 12 months: Yes Aproximately how many cigarettes per day: 6 - Social History Usual Living Arrangement: With Child ADL: Family Assistance History of Recent Travel: No Home Medications - Allergies Allergies/Adverse Reactions: Allergies Allergy/AdvReac Type Severity Reaction Status Date / Time No Known Allergies Allergy Verified 06/04/16 11:42 - Home Medications Home Medications: Ambulatory Orders Amlodipine Besylate [Norvasc -] 10 mg PO DAILY 07/30/15 Aspirin [ASA -] 81 mg PO DAILY 07/30/15 Cholecalciferol (Vitamin D3) [Vitamin D3] 1,000 unit PO DAILY #30 tab.chew 08/01 Dexlansoprazole [Dexilant] 30 mg PO DAILY #30 08/02/15 Insulin Sliding Scale [Novolog Vial Sliding Scale -] 1 vial SQ ACHS units 08/01 Insulin (Levemir) [Levemir Flexpen -] 15 units SQ HS 06/05/16 Family Disease History - Family Disease History Family Disease History: Diabetes: Grandparent, Mother, Sister (lung cancer), [place] : Sister Review of Systems - Review of Systems Constitutional: reports: Chills, Fever, Lethargy, Loss of Appetite, Weakness Eyes: denies: Blind Spots HENT: denies: Difficult Swallowing Neck: denies: Decreased ROM Cardiovascular: denies: Chest Pain Respiratory: reports: Cough, Exercise Intolerance, SOB on Exertion, Wheezing. denies: Hemoptysis Gastrointestinal: denies: Abdominal Pain Physical Exam Vital Sings: Vital Signs Temperature 97.8 F 06/06/16 08:06 Pulse Rate 141 H 06/06/16 12:18 Respiratory Rate 22 06/06/16 12:18 Blood Pressure 122/71 06/06/16 12:18 O2 Sat by Pulse Oximetry (%) 95 06/06/16 08:00 Constitutional: Yes: Mild Distress Eyes: Yes: EOM Intact HENT: Yes: Normocephalic Neck: Yes: Trachea Midline Cardiovascular: Yes: Pulse Irregular, S1, S2 Respiratory: Yes: Diminished (bilateral) Gastrointestinal: Yes: Normal Bowel Sounds, Soft Extremities: Yes: WNL Edema: No Labs: CBC, BMP 06/06/16 05:35 06/06/16 05:35 REST REVIEWED Imaging - Results Chest X-ray: Image Reviewed EKG: Report Reviewed, Image Reviewed Assessment/Plan COPD ACTIVELY SMOKING ADMITTED WITH RAPID AF/GLUTEAL SKIN INFECTION/FEVER HTN/HPL DIABETES POORLY CONTROLLED AGREE WITH O2 TO KEEP SAT GREATER THAN 90% BRONCHODILATORS/RATE CONTROL/GLYCEMIC CONTROL PANCULTURE/ANTIBIOTICS/DEBRIDEMENT NEEDED WILL FOLLOW Angella DURAN MD
--- NOTE | 2016-06-06 13:43 | PN ---
Teaching Attending Note Name of Resident: Antwon Grace ATTENDING PHYSICIAN STATEMENT I saw and evaluated the patient. I reviewed the resident's note and discussed the case with the resident. I agree with the resident's findings and plan as documented. SUBJECTIVE:c/o debilitating JANE. states it started once she woke up from sleep, very minimal relief from fiorcet. states pain in her buttocks has improved. also c/o SOB at rest which improves with supplemental oxygen. states she been see by pulmonary for this and had a lot of testing and everything was negative. denies CP,fever, chills, N/V/C?D, orthopnea, pedal swelling OBJECTIVE: Last Vital Signs Temp Pulse Resp BP Pulse Ox 97.8 F 141 H 22 122/71 95 06/06/16 08:06 06/06/16 12:18 06/06/16 12:18 06/06/16 12:18 06/06/16 08:00 General NAD CV S1 S2 RRR no murmur/rub/gallop Lungs CTA B/L no wheezing/rales/rhonchi extremities no pedal edema skin- R buttock with slight induration area not erythematous or tender. no acitve drainage. packing in place ASSESSMENT AND PLAN: 75yo F with PMH aflutter s/p ablation, HTN, DM, dyslipidemia presented to the ER and was admitted for further evaluation of their emergent condition 1. Sepsis due to gluteal abscess- afebrile. s/p I&D (06/05) packing in place. management per surgery. on Cefazolin/vanco day 2. vanco level therapeutic. WCx with pending organism. ID consulted. pain control 2. Afib with RVR- episode of afib with RVR this morning HR 140. cardizem increased, will cont to monitor of cardiac monitoring. on hep ggt with bridge to coumadin. 3. HTN urgency- pain induced. now controlled. 4. Acute on CKD-baeline Cr 2.5-2.8 likely dehydration vs sepsis. will start some low dose IVF. Kidneys on CT scan with normal echotexture. check urine electrolytes. will cont to trend. good UOP. avoid nephrotoxic medication 5. JANE-persitent. will give dex 10mg, Mg 2g, reglan 10mg. will hold toradol in setting of JOSE. fiorcet prn 6. SOB-no signs of volume overload. as per cardio had R heart cath with mild pulm HTN. no other etiolgy. saturating 97% on 1.5L NC. requesting to see pulmonary. will consult pulm 7. acute normocytic anemia- no signs of bleeding. Hgb stable. iron studies pending. 8. Hypomagnesemia- resolved 9. DM- A1c 9.9. iss, bgm. levemir 15units QHS 10. DVT ppx- hep ggt/coumadin bridge
[2016-06-06] MEDS ORDERED: MAGNESIUM SULF 50% (8.12 MEQ/2 ML-1 GM VIAL) IVPB ONE (14:30)
[2016-06-06] MEDS ORDERED: METOCLOPRAMIDE HCL INJECTION 10 MG/2 ML VIAL IVPUSH ONE (14:30)
[2016-06-06] MEDS ORDERED: DEXAMETHASONE SOD PHOSPHATE 10 MG/1 ML VIAL IVPUSH ONE (14:45)
[2016-06-06] MEDS: SODIUM CHLORIDE 1,000 ML IV SCH (14:47)
--- NOTE | 2016-06-06 16:11 | PN ---
Progress Note, Physician History of Present Illness: patient doing better still does not feel 100 percent pain at the operated site - Current Medication List Current Medications: Active Medications Acetaminophen/Butalbital/Caffeine (Fioricet -) 1 tablet PO Q6H PRN PRN Reason: FEVER OR PAIN Last Admin: 06/05/16 13:18 Dose: 1 tablet Aclidinium [place] (Tudorza -) 1 puff IH BID ERMA Albuterol/Ipratropium (Duoneb -) 1 amp NEB Q4H PRN PRN Reason: SHORTNESS OF BREATH Amlodipine Besylate (Norvasc -) 10 mg PO DAILY ERMA Last Admin: 06/06/16 09:27 Dose: 10 mg Budesonide (Pulmicort 0.5 Mg Nebulizer -) 1 amp NEB BID ERMA Cholecalciferol (Vitamin D3 -) 1,000 unit PO DAILY [facility] Last Admin: 06/06/16 09:23 Dose: 1,000 unit Diltiazem HCl (Cardizem Cd -) 240 mg PO DAILY ERMA Last Admin: 06/06/16 10:09 Dose: Not Given Diltiazem HCl (Cardizem Injection -) 10 mg IVPUSH Q2H PRN PRN Reason: TACHYCARDIA Last Admin: 06/06/16 12:14 Dose: 10 mg Heparin Sodium (Porcine) (Heparin -) 1,000 unit IVPUSH PRN PRN PRN Reason: Heparin Last Admin: 06/06/16 09:28 Dose: 1,000 unit Heparin Sodium (Porcine) (Heparin -) 5,000 unit IVPUSH PRN PRN PRN Reason: Heparin Heparin Sodium (Porcine) 25, (000 unit/ Sodium Chloride) 500 mls @ 20 mls/hr IV TITR ERMA; 1,000 UNIT/HR PRN Reason: Protocol Last Admin: 06/06/16 09:27 Dose: 22 mls/hr Clindamycin Phosphate (Cleocin 600 Mg Premix Ivpb -) 50 mls @ 100 mls/hr IVPB Q8H-IV ERMA Last Admin: 06/06/16 09:22 Dose: 100 mls/hr Piperacillin Sod/Tazobactam Sod (Zosyn 2.25gm Ivpb (Pre-Docked)) 50 mls @ 100 mls/hr IVPB Q8H-IV ERMA PRN Reason: Protocol Last Admin: 06/06/16 09:22 Dose: 100 mls/hr Sodium Chloride (Normal Saline -) 1,000 mls @ 100 mls/hr IV ASDIR [facility] Last Admin: 06/06/16 14:47 Dose: 100 mls/hr Insulin Aspart (Novolog Vial Sliding Scale -) 1 vial SQ ACHS ERMA PRN Reason: Protocol Last Admin: 06/06/16 11:42 Dose: 4 unit Insulin Detemir (Levemir Vial) 15 units SQ HS [facility] Morphine Sulfate (Morphine Injection -) 1 mg IVPUSH Q6H PRN PRN Reason: PAIN Last Admin: 06/05/16 12:01 Dose: 1 mg Nicotine (Nicoderm Patch -) 14 mg TD DAILY [facility] Last Admin: 06/06/16 09:22 Dose: 14 mg Pantoprazole Sodium (Protonix -) 40 mg PO DAILY [facility] Last Admin: 06/06/16 09:23 Dose: 40 mg Warfarin Sodium (Coumadin -) 5 mg PO DAILY@1800 [facility] Last Admin: 06/05/16 17:27 Dose: 5 mg - Objective Vital Signs: Vital Signs Temperature 98.4 F 06/06/16 14:10 Pulse Rate 71 06/06/16 14:10 Respiratory Rate 20 06/06/16 14:10 Blood Pressure 111/55 06/06/16 14:10 O2 Sat by Pulse Oximetry (%) 95 06/06/16 08:00 Constitutional: Yes: Calm, Mild Distress Cardiovascular: Yes: Regular Rate and Rhythm Respiratory: Yes: Regular, CTA Bilaterally Gastrointestinal: Yes: Normal Bowel Sounds, Soft Musculoskeletal: Yes: Other Extremities: Yes: WNL Wound/Incision: Yes: Dressing Dry and Intact Neurological: Yes: Alert, Oriented Psychiatric: Yes: Alert, Oriented Labs: CBC, BMP 06/06/16 05:35 06/06/16 05:35 INR, PTT INR 1.15 (0.82-1.09) H 06/06/16 05:35 Assessment/Plan - Problem Paroxysmal atrial fibrillation with RVR Code(s): I48.0 - PAROXYSMAL ATRIAL FIBRILLATION CKD stage 4 due to type 2 diabetes mellitus Code(s): E11.22 - TYPE 2 DIABETES MELLITUS W DIABETIC CHRONIC KIDNEY DISEASE N18.4 - CHRONIC KIDNEY DISEASE, STAGE 4 (SEVERE) Intractable headache Code(s): R51 - HEADACHE Asthma Code(s): J45.909 - UNSPECIFIED ASTHMA, UNCOMPLICATED IDDM (insulin dependent diabetes mellitus) Code(s): E11.9 - TYPE 2 DIABETES MELLITUS WITHOUT COMPLICATIONS Z79.4 - SHELTER (CURRENT) USE OF INSULIN Current smoker Code(s): F17.200 - NICOTINE DEPENDENCE, UNSPECIFIED, UNCOMPLICATED gluteal abscess s/p drainage plan abx started wound cx result noted await for identification of organism await for sensitivities
[2016-06-06] MEDS: WARFARIN NA 5 MG TABLET (UD) PO SCH (17:43)
[2016-06-06] MEDS ORDERED: INSULIN DETEMIR 100 UNITS/ML MDV SQ SCH (22:00)
[2016-06-06] MEDS: BUDESONIDE 0.5 MG/2 ML INH SUSP VIAL NEB SCH ×2 (22:05→22:20)
[2016-06-06] MEDS: ALBUTEROL SO4 2.5/IPRATROPIUM 0.5 INH SOL 3 ML VIAL.NEB. NEB PRN (22:15)
[2016-06-06] MEDS: ACLIDINIUM BROMIDE 400 MCG/INH AERO.POWD IH SCH (22:23)
[2016-06-07] MEDS: CLINDAMYCIN 600MG PREMIX IVPB 50 ML IVPB SCH ×3 (01:31→17:31)
[2016-06-07] MEDS: PIPERACILLIN/TAZOB 2.25 GM 50 ML IVPB SCH ×3 (01:35→17:30)
[2016-06-07 06:06] LABS: SERUM IRON 8 ug/dL (27-139); TOTAL IRON BINDING CAPACITY 202 ug/dL (250-450); UIBC 194 ug/dL (118-369)
[2016-06-07] MEDS: INSULIN SLIDING SCALE (NOVOLOG) 1 VIAL SQ SCH ×4 (06:18→23:03)
[2016-06-07 07:47] LABS: MCHC 32.9 g/dl (32.0-36.0); MEAN CELL VOLUME 94.3 fl (80-96); PLATELET COUNT 174 K/MM3 (134-434); RDW 14.9 % (11.6-15.6); WHITE BLOOD COUNT 10.4 K/mm3 (4.0-10.0)
--- NOTE | 2016-06-07 09:41 | PN ---
Progress Note (short form) - Note Progress Note: PULMONARY REMAINS FATIGUED/HEADACHE RESOLVED VSS/AFEBRILE ANICTERIC DISTANT BILATERAL BREATH SOUNDS S1S2 BS+ NO EDEMA LABS/MEDS/MICRO/NOTES REVIEWED COPD (ACTIVE SMOKER) ADMITTED WITH RAPID AF/GLUTEAL SKIN INFECTION/FEVER WORSENING RENAL INSUFFICIENCY HTN/HPL DIABETES POORLY CONTROLLED AGREE WITH O2 TO KEEP SAT GREATER THAN 90% BRONCHODILATORS/RATE CONTROL/GLYCEMIC CONTROL PANCULTURE/ANTIBIOTICS/IV FLUIDS/DEBRIDEMENT NEEDED SUGGEST RENAL CONSULT Angella DURAN MD
[2016-06-07] MEDS: BUDESONIDE 0.5 MG/2 ML INH SUSP VIAL NEB SCH ×2 (10:14→22:05)
[2016-06-07] MEDS: ACLIDINIUM BROMIDE 400 MCG/INH AERO.POWD IH SCH ×2 (10:22→23:02)
[2016-06-07] MEDS: amLODIPine BESYLATE 10 MG TABLET (FP) PO SCH (10:23)
[2016-06-07] MEDS: NICOTINE 14 MG/24 HOURS TOPICAL PATCH TD SCH (10:23)
[2016-06-07] MEDS: CHOLECALCIFEROL (VITAMIN D3) 1,000 UNIT TABLET (FP) PO SCH (10:24)
[2016-06-07] MEDS: PANTOPRAZOLE 40 MG TABLET (FP) PO SCH (10:24)
--- NOTE | 2016-06-07 10:49 | PN ---
Progress Note, Physician Chief Complaint: Pt feels tired; says she has not been sleeping well for months at home. No palpitations. History of Present Illness: The patient is a 75-year-old woman, accompanied by daughter, with a significant past medical history of hypertension, hypercholesterolemia, asthma, anemia, adult onset insulin dependent diabetes mellitus and anxiety who presents to the emergency department for further evaluation of a headache. No recent head trauma. As per patient's daughter, the patient was noted to complain of a headache this morning with associated episodes of shivering. Patient's glucose was measured and was reportedly to be 400. She had a similar presentation, over 1 year ago, where she was found to have a skin boil that was lanced and her headache resolved. Today, the patient's daughter was noted to have a lincoln- rectal skin boil. No dizziness, vision changes, speech difficulty, neck pain or stiffness, nausea , vomiting, diarrhea, hematochezia, melena, or numbness, tingling, or weakness to the extremities. Allergies: No Known Drug Allergies Past Surgical History: Orthopedic Surgery Social History: No tobacco, ETOH and recreational drug use. Primary Care Physician: Dr. Myesha Nayak [phone]/ [phone] - Current Medication List Current Medications: Active Medications Acetaminophen/Butalbital/Caffeine (Fioricet -) 1 tablet PO Q6H PRN PRN Reason: FEVER OR PAIN Last Admin: 06/05/16 13:18 Dose: 1 tablet Aclidinium [place] (Tudorza -) 1 puff IH BID [facility] Last Admin: 06/07/16 10:22 Dose: 1 puff Albuterol/Ipratropium (Duoneb -) 1 amp NEB Q4H PRN PRN Reason: SHORTNESS OF BREATH Last Admin: 06/06/16 22:15 Dose: 1 amp Amlodipine Besylate (Norvasc -) 10 mg PO DAILY [facility] Last Admin: 06/07/16 10:23 Dose: 10 mg Budesonide (Pulmicort 0.5 Mg Nebulizer -) 1 amp NEB BID [facility] Last Admin: 06/07/16 10:14 Dose: 1 amp Cholecalciferol (Vitamin D3 -) 1,000 unit PO DAILY [facility] Last Admin: 06/07/16 10:24 Dose: 1,000 unit Diltiazem HCl (Cardizem Cd -) 240 mg PO DAILY ERMA Last Admin: 06/07/16 10:23 Dose: 240 mg Diltiazem HCl (Cardizem Injection -) 10 mg IVPUSH Q2H PRN PRN Reason: TACHYCARDIA Last Admin: 06/06/16 12:14 Dose: 10 mg Heparin Sodium (Porcine) (Heparin -) 1,000 unit IVPUSH PRN PRN PRN Reason: Heparin Last Admin: 06/06/16 17:46 Dose: 1,000 unit Heparin Sodium (Porcine) (Heparin -) 5,000 unit IVPUSH PRN PRN PRN Reason: Heparin Heparin Sodium (Porcine) 25, (000 unit/ Sodium Chloride) 500 mls @ 20 mls/hr IV TITR ERMA; 1,000 UNIT/HR PRN Reason: Protocol Last Titration: 06/07/16 02:19 Dose: 1,200 unit/hr Clindamycin Phosphate (Cleocin 600 Mg Premix Ivpb -) 50 mls @ 100 mls/hr IVPB Q8H-IV ERMA Last Admin: 06/07/16 10:23 Dose: 100 mls/hr Piperacillin Sod/Tazobactam Sod (Zosyn 2.25gm Ivpb (Pre-Docked)) 50 mls @ 100 mls/hr IVPB Q8H-IV ERMA PRN Reason: Protocol Last Admin: 06/07/16 10:23 Dose: 100 mls/hr Sodium Chloride (Normal Saline -) 1,000 mls @ 100 mls/hr IV ASDIR ERMA Last Admin: 06/06/16 14:47 Dose: 100 mls/hr Insulin Aspart (Novolog Vial Sliding Scale -) 1 vial SQ ACHS ERMA PRN Reason: Protocol Last Admin: 06/07/16 06:18 Dose: 8 unit Insulin Detemir (Levemir Vial) 15 units SQ HS ERMA Last Admin: 06/06/16 22:24 Dose: 15 units Morphine Sulfate (Morphine Injection -) 1 mg IVPUSH Q6H PRN PRN Reason: PAIN Last Admin: 06/05/16 12:01 Dose: 1 mg Nicotine (Nicoderm Patch -) 14 mg TD DAILY ERMA Last Admin: 06/07/16 10:23 Dose: 14 mg Pantoprazole Sodium (Protonix -) 40 mg PO DAILY ERMA Last Admin: 06/07/16 10:24 Dose: 40 mg Warfarin Sodium (Coumadin -) 5 mg PO DAILY@1800 [facility] Last Admin: 06/06/16 17:43 Dose: 5 mg - Objective Vital Signs: Vital Signs Temperature 98.2 F 06/07/16 10:00 Pulse Rate 74 06/07/16 10:00 Respiratory Rate 22 06/07/16 10:00 Blood Pressure 142/70 06/07/16 10:00 O2 Sat by Pulse Oximetry (%) 95 06/06/16 08:00 Constitutional: Yes: Anxious Labs: CBC, BMP 06/07/16 05:35 06/06/16 05:35 INR, PTT INR 1.15 (0.82-1.09) H 06/06/16 05:35 Problem List - Problems (1) Asthma Code(s): J45.909 - UNSPECIFIED ASTHMA, UNCOMPLICATED (2) Cellulitis and abscess of buttock Assessment/Plan: On dual antibiotics. F/u with surgeon and ID. (3) Current smoker Assessment/Plan: ln nicotine patch. Code(s): F17.200 - NICOTINE DEPENDENCE, UNSPECIFIED, UNCOMPLICATED (4) Migraine headache Code(s): G43.909 - MIGRAINE, UNSP, NOT INTRACTABLE, WITHOUT STATUS MIGRAINOSUS Qualifiers: Migraine type: other Intractability: not intractable (5) Paroxysmal atrial fibrillation with RVR Assessment/Plan: On diltiazem CD. INR Pending (On warfarin). Code(s): I48.0 - PAROXYSMAL ATRIAL FIBRILLATION (6) COPD (chronic obstructive pulmonary disease) Code(s): J44.9 - CHRONIC OBSTRUCTIVE PULMONARY DISEASE, UNSPECIFIED Qualifiers : COPD type: emphysema Emphysema type: unspecified Qualified Code(s) : J43.9 - Emphysema, unspecified (7) Pulmonary hypertension Code(s): I27.2 - OTHER SECONDARY PULMONARY HYPERTENSION (8) Depression Code(s): F32.9 - MAJOR DEPRESSIVE DISORDER, SINGLE EPISODE, UNSPECIFIED (9) Hypertension Code(s): I10 - ESSENTIAL (PRIMARY) HYPERTENSION (10) Type 2 diabetes mellitus Code(s): E11.9 - TYPE 2 DIABETES MELLITUS WITHOUT COMPLICATIONS (11) Diastolic CHF Code(s): I50.30 - UNSPECIFIED DIASTOLIC (CONGESTIVE) HEART FAILURE (12) Anemia Code(s): D64.9 - ANEMIA, UNSPECIFIED (13) Renal dysfunction Code(s): N28.9 - DISORDER OF KIDNEY AND URETER, UNSPECIFIED
[2016-06-07 11:28] LABS: INR 1.67 (0.82-1.09); PROTHROMBIN TIME (PATIENT) 18.6 SEC (9.98-11.88)
[2016-06-07 12:53] LABS: CALCIUM 7.5 mg/dL (8.5-10.1); COCKROFT - GAULT 18.734; CREATININE 3.6 mg/dL (0.55-1.02)
[2016-06-07] MEDS: SODIUM CHLORIDE 1,000 ML IV SCH (13:00)
--- NOTE | 2016-06-07 13:25 | PN ---
Progress Note (short form) - Note Progress Note: c/o fatigue, difficulty getting out of bed due to fatigue and difficulty breathing. states pain in buttocks has improved but worse when sitting on it for extended periods of time. states JANE has resolved. states when she was on coumadin in the past she was on 7mg. denies CP, palpitations, N/V/C/D. no weight loss, or night sweats. Current Medications Generic Name Dose Route Start Last Admin Trade Name Freq PRN Reason Stop Dose Admin Acetaminophen/Butalbital/Caffeine 1 tablet 06/04/16 22:37 06/05/16 13:18 Fioricet - PO 1 tablet Q6H PRN Administration FEVER OR PAIN Aclidinium [place] 1 puff 06/06/16 22:00 06/07/16 10:22 Tudorza - IH 1 puff BID ERMA Administration Albuterol/Ipratropium 1 amp 06/06/16 13:44 06/06/16 22:15 Duoneb - NEB 1 amp Q4H PRN Administration SHORTNESS OF BREATH Amlodipine Besylate 10 mg 06/05/16 10:00 06/07/16 10:23 Norvasc - PO 10 mg DAILY ERMA Administration Budesonide 1 amp 06/06/16 14:45 06/07/16 10:14 Pulmicort 0.5 Mg Nebulizer - NEB 1 amp BID ERMA Administration Cholecalciferol 1,000 unit 06/05/16 10:00 06/07/16 10:24 Vitamin D3 - PO 1,000 unit DAILY ERMA Administration Diltiazem HCl 240 mg 06/06/16 09:30 06/07/16 10:23 Cardizem Cd - PO 240 mg DAILY ERMA Administration Diltiazem HCl 10 mg 06/06/16 09:31 06/06/16 12:14 Cardizem Injection - IVPUSH 10 mg Q2H PRN Administration TACHYCARDIA Heparin Sodium (Porcine) 1,000 unit 06/04/16 23:41 06/06/16 17:46 Heparin - IVPUSH 1,000 unit PRN PRN Administration Heparin Heparin Sodium (Porcine) 5,000 unit 06/04/16 23:41 Heparin - IVPUSH PRN PRN Heparin Heparin Sodium (Porcine) 25, 500 mls @ 20 mls/hr 06/04/16 23:45 06/07/16 02:19 000 unit/ Sodium Chloride IV 1,200 unit/hr TITR ERMA Titration Protocol 1,000 UNIT/HR Clindamycin Phosphate 50 mls @ 100 mls/hr 06/05/16 18:00 06/07/16 10:23 Cleocin 600 Mg Premix Ivpb - IVPB 100 mls/hr Q8H-IV ERMA Administration Piperacillin Sod/Tazobactam Sod 50 mls @ 100 mls/hr 06/05/16 18:00 06/07/16 10: 23 Zosyn 2.25gm Ivpb (Pre-Docked) IVPB 100 mls/hr Q8H-IV ERMA Administration Protocol Sodium Chloride 1,000 mls @ 100 mls/hr 06/06/16 13:45 06/06/16 14:47 Normal Saline - IV 100 mls/hr ASDIR ERMA Administration Insulin Aspart 1 vial 06/05/16 08:45 06/07/16 12:03 Novolog Vial Sliding Scale - SQ 6 unit ACHS ERMA Administration Protocol Insulin Detemir 15 units 06/06/16 22:00 06/06/16 22:24 Levemir Vial SQ 15 units HS ERMA Administration Morphine Sulfate 1 mg 06/04/16 22:36 06/05/16 12:01 Morphine Injection - IVPUSH 1 mg Q6H PRN Administration PAIN Nicotine 14 mg 06/05/16 10:00 06/07/16 10:23 Nicoderm Patch - TD 14 mg DAILY ERMA Administration Pantoprazole Sodium 40 mg 06/05/16 10:00 06/07/16 10:24 Protonix - PO 40 mg DAILY ERMA Administration Warfarin Sodium 5 mg 06/05/16 18:00 06/06/16 17:43 Coumadin - PO 5 mg DAILY@1800 ERMA Administration Last Vital Signs Temp Pulse Resp BP Pulse Ox 98.2 F 74 22 142/70 95 06/07/16 10:00 06/07/16 10:00 06/07/16 10:00 06/07/16 10:00 06/06/16 08:00 General NAD CV S1 S2 RRR no murmur/rub/gallop Lungs CTA B/L no wheezing/rales/rhonchi extremities no pedal edema skin- R buttock with slight induration area not erythematous + tender. no acitve drainage. packing in place CBCD WBC 10.4 K/mm3 (4.0-10.0) H D 06/07/16 05:35 RBC 3.17 M/mm3 (3.60-5.2) L 06/07/16 05:35 Hgb 9.8 GM/dL (10.7-15.3) L 06/07/16 05:35 Hct 29.9 % (32.4-45.2) L 06/07/16 05:35 MCV 94.3 fl (80-96) 06/07/16 05:35 MCHC 32.9 g/dl (32.0-36.0) 06/07/16 05:35 RDW 14.9 % (11.6-15.6) 06/07/16 05:35 Plt Count 174 K/MM3 (134-434) 06/07/16 05:35 MPV 10.0 fl (7.5-11.1) 06/07/16 05:35 CMP Sodium 140 mmol/L (136-145) 06/07/16 05:30 Potassium 4.2 mmol/L (3.5-5.1) 06/07/16 05:30 Chloride 110 mmol/L (98-107) H 06/07/16 05:30 Carbon Dioxide 17 mmol/L (21-32) L 06/07/16 05:30 Anion Gap 13 (8-16) 06/07/16 05:30 BUN 39 mg/dL (7-18) H 06/07/16 05:30 Creatinine 3.6 mg/dL (0.55-1.02) H 06/07/16 05:30 Creat Clearance w eGFR 13.56 (>60) 06/05/16 05:50 Calcium 7.5 mg/dL (8.5-10.1) L 06/07/16 05:30 Total Bilirubin 0.4 mg/dL (0.2-1.0) 06/05/16 05:50 AST 6 U/L (15-37) L D 06/05/16 05:50 ALT 8 U/L (12-78) L 06/05/16 05:50 Alkaline Phosphatase 65 U/L (45-117) 06/05/16 05:50 Total Protein 5.4 g/dl (6.4-8.2) L 06/05/16 05:50 Albumin 2.3 g/dl (3.4-5.0) L 06/05/16 05:50 Microbiology 06/05/16 14:30 Gram Stain - Final Abscess Wound Culture - Preliminary Viridans Streptococcus Group Staphylococcus Coagulase Neg 06/04/16 12:42 Blood Culture - Preliminary Blood - Peripheral Venous NO GROWTH OBTAINED AFTER 48 HOURS, INCUBATION TO CONTINUE FOR 3 DAYS. 06/04/16 12:42 Blood Culture - Preliminary Blood - Peripheral Venous NO GROWTH OBTAINED AFTER 48 HOURS, INCUBATION TO CONTINUE FOR 3 DAYS. 06/04/16 18:00 Urine Culture - Final Urine - Urine Clean Catch NO GROWTH OBTAINED ASSESSMENT AND PLAN: 75yo F with PMH aflutter s/p ablation, HTN, DM, dyslipidemia presented to the ER and was admitted for further evaluation of their emergent condition 1. Sepsis due to gluteal abscess- afebrile. s/p I&D (06/05) packing in place. management per surgery. on Cefazolin/zosyn day 3. will wait for c&s. informed to keep area clean after toileting. ID consulted. pain control 2. Afib with RVR- sinus tach overnight. asymptomatic. will keep cardizem current dosing. increase coumadin to 7mg. monitor INR. hep bridge. will cont to monitor of cardiac monitoring. 3. HTN urgency- pain induced. now controlled. 4. Acute on CKD-baeline Cr 2.5-2.8 likely dehydration vs sepsis. Cr function now stable. will keep IVF at this time. good UOP. avoid nephrotoxic medication 5. JANE-now resolved. good response to medicataion given yesterday. fiorcet prn 6. SOB-no improvement. started on pulmicort/turdoza. will wait for improvement. check if qualifies for home O2. nebs prn. supplemental oxygen to maintain spO2 >90%. pulmonary on board 7. generalized fatigue- >1year. may be due to sleeping habits. takes 2 hour nap in the middle of the day and then unable to sleep at night. ?iron deficiency. check lymes disease. 7. acute normocytic anemia- +iron deficiency anemia. start iron supplementation. no signs of bleeding. Hgb stable. iron studies pending. 8. Hypomagnesemia- resolved 9. DM- A1c 9.9. not controlled. increase levemir to 20units QHS. iss, bgm. 10. DVT ppx- hep ggt/coumadin bridge Visit type - Emergency Visit Emergency Visit: Yes ED Registration Date: 06/04/16 Care time: The patient presented to the Emergency Department on the above date and was hospitalized for further evaluation of their emergent condition. - New Patient This patient is new to me today: No - Critical Care Critical Care patient: No - Discharge Referral Referred to [facility] No
--- NOTE | 2016-06-07 13:56 | PN ---
Progress Note, Physician History of Present Illness: stable pain at operated site dsg changed - Current Medication List Current Medications: Active Medications Acetaminophen/Butalbital/Caffeine (Fioricet -) 1 tablet PO Q6H PRN PRN Reason: FEVER OR PAIN Last Admin: 06/05/16 13:18 Dose: 1 tablet Aclidinium [place] (Tudorza -) 1 puff IH BID ERMA Last Admin: 06/07/16 10:22 Dose: 1 puff Albuterol/Ipratropium (Duoneb -) 1 amp NEB Q4H PRN PRN Reason: SHORTNESS OF BREATH Last Admin: 06/06/16 22:15 Dose: 1 amp Amlodipine Besylate (Norvasc -) 10 mg PO DAILY ERMA Last Admin: 06/07/16 10:23 Dose: 10 mg Budesonide (Pulmicort 0.5 Mg Nebulizer -) 1 amp NEB BID ERMA Last Admin: 06/07/16 10:14 Dose: 1 amp Cholecalciferol (Vitamin D3 -) 1,000 unit PO DAILY ERMA Last Admin: 06/07/16 10:24 Dose: 1,000 unit Diltiazem HCl (Cardizem Cd -) 240 mg PO DAILY ERMA Last Admin: 06/07/16 10:23 Dose: 240 mg Diltiazem HCl (Cardizem Injection -) 10 mg IVPUSH Q2H PRN PRN Reason: TACHYCARDIA Last Admin: 06/06/16 12:14 Dose: 10 mg Heparin Sodium (Porcine) (Heparin -) 1,000 unit IVPUSH PRN PRN PRN Reason: Heparin Last Admin: 06/06/16 17:46 Dose: 1,000 unit Heparin Sodium (Porcine) (Heparin -) 5,000 unit IVPUSH PRN PRN PRN Reason: Heparin Heparin Sodium (Porcine) 25, (000 unit/ Sodium Chloride) 500 mls @ 20 mls/hr IV TITR ERMA; 1,000 UNIT/HR PRN Reason: Protocol Last Titration: 06/07/16 02:19 Dose: 1,200 unit/hr Clindamycin Phosphate (Cleocin 600 Mg Premix Ivpb -) 50 mls @ 100 mls/hr IVPB Q8H-IV ERMA Last Admin: 06/07/16 10:23 Dose: 100 mls/hr Piperacillin Sod/Tazobactam Sod (Zosyn 2.25gm Ivpb (Pre-Docked)) 50 mls @ 100 mls/hr IVPB Q8H-IV ERMA PRN Reason: Protocol Last Admin: 06/07/16 10:23 Dose: 100 mls/hr Sodium Chloride (Normal Saline -) 1,000 mls @ 100 mls/hr IV ASDIR [facility] Last Admin: 06/06/16 14:47 Dose: 100 mls/hr Insulin Aspart (Novolog Vial Sliding Scale -) 1 vial SQ ACHS ERMA PRN Reason: Protocol Last Admin: 06/07/16 12:03 Dose: 6 unit Insulin Detemir (Levemir Vial) 20 units SQ HS ERMA Morphine Sulfate (Morphine Injection -) 1 mg IVPUSH Q6H PRN PRN Reason: PAIN Last Admin: 06/05/16 12:01 Dose: 1 mg Nicotine (Nicoderm Patch -) 14 mg TD DAILY [facility] Last Admin: 06/07/16 10:23 Dose: 14 mg Pantoprazole Sodium (Protonix -) 40 mg PO DAILY [facility] Last Admin: 06/07/16 10:24 Dose: 40 mg Warfarin Sodium 5 mg/ Warfarin (Sodium 2 mg) 7 mg PO DAILY@1800 [facility] - Objective Vital Signs: Vital Signs Temperature 98.2 F 06/07/16 10:00 Pulse Rate 74 06/07/16 10:00 Respiratory Rate 22 06/07/16 10:00 Blood Pressure 142/70 06/07/16 10:00 O2 Sat by Pulse Oximetry (%) 95 06/06/16 08:00 Constitutional: Yes: No Distress, Calm Cardiovascular: Yes: Regular Rate and Rhythm Respiratory: Yes: Regular, On Nasal O2, Poor Air Entry Gastrointestinal: Yes: Normal Bowel Sounds, Soft Musculoskeletal: Yes: Other Extremities: Yes: WNL Integumentary: Yes: Erythema Wound/Incision: Yes: Dressing Dry and Intact Neurological: Yes: Alert, Oriented Psychiatric: Yes: Alert, Oriented Labs: CBC, BMP 06/07/16 05:35 06/07/16 05:30 INR, PTT INR 1.67 (0.82-1.09) H D 06/07/16 10:38 Assessment/Plan - Problem Paroxysmal atrial fibrillation with RVR Code(s): I48.0 - PAROXYSMAL ATRIAL FIBRILLATION CKD stage 4 due to type 2 diabetes mellitus Code(s): E11.22 - TYPE 2 DIABETES MELLITUS W DIABETIC CHRONIC KIDNEY DISEASE N18.4 - CHRONIC KIDNEY DISEASE, STAGE 4 (SEVERE) Intractable headache Code(s): R51 - HEADACHE Asthma Code(s): J45.909 - UNSPECIFIED ASTHMA, UNCOMPLICATED IDDM (insulin dependent diabetes mellitus) Code(s): E11.9 - TYPE 2 DIABETES MELLITUS WITHOUT COMPLICATIONS Z79.4 - PENITENTIARY (CURRENT) USE OF INSULIN Current smoker Code(s): F17.200 - NICOTINE DEPENDENCE, UNSPECIFIED, UNCOMPLICATED gluteal abscess s/p drainage plan abx started wound cx result noted await for identification of organism
--- NOTE | 2016-06-07 16:28 | EKG ---
Test Reason : Blood Pressure : / mmHG Vent. Rate : 069 BPM Atrial Rate : 069 BPM P-R Int : 152 ms QRS Dur : 078 ms QT Int : 400 ms P-R-T Axes : 069 -21 084 degrees QTc Int : 428 ms NORMAL SINUS RHYTHM NORMAL ECG WHEN COMPARED WITH ECG OF 04-JUN-2016 19:02, T WAVE INVERSION LESS EVIDENT IN LATERAL LEADS Confirmed by BRYAN CAMACHO MD ([id number]) on 06/07/2016 4:28:12 PM Referred By: CHATO SILVERMAN Confirmed By:BRYAN CAMACHO MD
[2016-06-07] MEDS ORDERED: WARFARIN NA 5 MG TABLET (UD) ONE (17:02)
[2016-06-07] MEDS ORDERED: WARFARIN NA 2 MG TABLET (UD) ONE (17:02)
[2016-06-07] MEDS ORDERED: WARFARIN NA 5 MG, WARFARIN NA 2 MG PO SCH (18:00)
[2016-06-07] MEDS ORDERED: WARFARIN NA 5 MG TABLET (UD) PO SCH (18:00)
[2016-06-07] MEDS ORDERED: PT OWN MED DRAWER 7, Y5N ONE (19:58)
[2016-06-07] MEDS: HEPARIN - 25,000 UNIT in SODIUM CHLORIDE 495 ML IV SCH ×2 (20:02→23:04)
[2016-06-07] MEDS: INSULIN DETEMIR 100 UNITS/ML MDV SQ SCH (23:07)
[2016-06-08] MEDS: CLINDAMYCIN 600MG PREMIX IVPB 50 ML IVPB SCH ×3 (01:30→17:10)
[2016-06-08] MEDS: PIPERACILLIN/TAZOB 2.25 GM 50 ML IVPB SCH ×3 (02:53→17:10)
[2016-06-08] MEDS: INSULIN SLIDING SCALE (NOVOLOG) 1 VIAL SQ SCH ×4 (06:16→21:36)
[2016-06-08 08:05] LABS: MEAN CELL VOLUME 93.9 fl (80-96); MEAN PLT VOLUME 9.9 fl (7.5-11.1); PLATELET COUNT 210 K/MM3 (134-434); RDW 15.5 % (11.6-15.6); WHITE BLOOD COUNT 9.5 K/mm3 (4.0-10.0)
[2016-06-08 08:45] LABS: CALCIUM 7.9 mg/dL (8.5-10.1)
[2016-06-08 08:49] LABS: COCKROFT - GAULT 21.76; CREATININE 3.1 mg/dL (0.55-1.02)
[2016-06-08 09:49] LABS: INR 2.43 (0.82-1.09); PROTHROMBIN TIME (PATIENT) 27.2 SEC (9.98-11.88)
--- NOTE | 2016-06-08 10:13 | PN ---
Progress Note (short form) - Note Progress Note: PULMONARY REMAINS FATIGUED/HEADACHE RESOLVED VSS/AFEBRILE ANICTERIC DISTANT BILATERAL BREATH SOUNDS S1S2 BS+ NO EDEMA LABS/MEDS/MICRO/NOTES REVIEWED COPD (ACTIVE SMOKER) ADMITTED WITH RAPID AF/GLUTEAL SKIN INFECTION/FEVER WORSENING RENAL INSUFFICIENCY HTN/HPL DIABETES POORLY CONTROLLED AGREE WITH O2 TO KEEP SAT GREATER THAN 90% BRONCHODILATORS/RATE CONTROL/GLYCEMIC CONTROL PANCULTURE/ANTIBIOTICS/IV FLUIDS/DEBRIDEMENT NEEDED SUGGEST RENAL CONSULT CHECK AM CORTISOL Angella DURAN MD
[2016-06-08] MEDS: BUDESONIDE 0.5 MG/2 ML INH SUSP VIAL NEB SCH ×2 (10:16→21:45)
--- NOTE | 2016-06-08 10:48 | CONSULT ---
Consult - text type - Consultation Consultation Note: Renal Consult for JOSE on CKD 4 This is a 75 year old woman with PMHx of CKD stage 4 (baseline Cr 2.2-2.5) from suspected diabetic nephropathy, hypertension, hypercholesterolemia, asthma, anemia, adult onset insulin dependent diabetes mellitus presented with JANE and found to have infected gluetial abcess and JOSE with BUN/Cr that peaked at 36/ 3.6. Pt reports that she has been having some decreased urine output at home. No NSAID use. No recent contrast exposure. No overt hypotension this admission but may have experienced some relative hypotension following BP correction. No JANE, chest pain, fever, chills, N/V/D. PMHx: as above Allergies: NKDA Family hx: NC Social Hx: + Tobacco ROS: as per HPI Home MEds: Home Medications Medication Instructions Recorded Amlodipine Besylate [Norvasc -] 10 mg PO DAILY 07/30/15 Aspirin [ASA -] 81 mg PO DAILY 07/30/15 Cholecalciferol (Vitamin D3) 1,000 unit PO DAILY #30 tab.chew 08/02/15 [Vitamin D3] Dexlansoprazole [Dexilant] 30 mg PO DAILY #30 cap. 08/02/15 Insulin Sliding Scale [Novolog 1 vial SQ ACHS units 08/02/15 Vial Sliding Scale -] Insulin (Levemir) [Levemir Flexpen 15 units SQ HS 06/05/16 -] Vital Signs Temperature 98 F 06/08/16 06:00 Pulse Rate 71 06/08/16 06:00 Respiratory Rate 19 06/08/16 06:00 Blood Pressure 154/78 06/08/16 06:00 O2 Sat by Pulse Oximetry (%) 97 06/08/16 06:00 Intake & Output 06/05/16 06/06/16 06/07/16 06/08/16 23:59 23:59 23:59 23:59 Intake Total 430 480 7895 1508 Output Total 350 Balance 045 460 0761 1508 Weight 200 lb Gen: Mildly dyspneic HEENT: NC/AT, MMM, No JVD, Neck supple CVS: RRR, No M/R Lungs: + crackles at lung bases, no wheeze Abd: soft NT/ND, nO bladder distension Ext: No edema, clubbing or cyanosis Neuro: No focal defects CBC, BMP 06/08/16 05:35 06/08/16 05:35 Laboratory Tests 06/04/16 06/08/16 06/08/16 18:00 02:05 05:35 MCV 93.9 Calcium Urine pH 5.0 Ur Specific [place] 1.022 Urine Protein 3+ H Urine Glucose (UA) 3+ H Urine Creatinine 62.6 06/08/16 05:35 MCV Calcium 7.9 L Urine pH Ur Specific [place] Urine Protein Urine Glucose (UA) Urine Creatinine Current Medications Aclidinium [place] (Tudorza -) 1 puff IH BID [facility] Last Admin: 06/07/16 23:02 Dose: 1 puff Albuterol/Ipratropium (Duoneb -) 1 amp NEB Q4H PRN PRN Reason: SHORTNESS OF BREATH Last Admin: 06/06/16 22:15 Dose: 1 amp Amlodipine Besylate (Norvasc -) 10 mg PO DAILY [facility] Last Admin: 06/07/16 10:23 Dose: 10 mg Budesonide (Pulmicort 0.5 Mg Nebulizer -) 1 amp NEB BID [facility] Last Admin: 06/07/16 22:05 Dose: 1 amp Cholecalciferol (Vitamin D3 -) 1,000 unit PO DAILY [facility] Last Admin: 06/07/16 10:24 Dose: 1,000 unit Diltiazem HCl (Cardizem Cd -) 240 mg PO DAILY [facility] Last Admin: 06/07/16 10:23 Dose: 240 mg Diltiazem HCl (Cardizem Injection -) 10 mg IVPUSH Q2H PRN PRN Reason: TACHYCARDIA Last Admin: 06/06/16 12:14 Dose: 10 mg Heparin Sodium (Porcine) (Heparin -) 1,000 unit IVPUSH PRN PRN PRN Reason: Heparin Last Admin: 06/06/16 17:46 Dose: 1,000 unit Heparin Sodium (Porcine) (Heparin -) 5,000 unit IVPUSH PRN PRN PRN Reason: Heparin Heparin Sodium (Porcine) 25, (000 unit/ Sodium Chloride) 500 mls @ 20 mls/hr IV TITR ERMA; 1,000 UNIT/HR PRN Reason: Protocol Last Admin: 06/07/16 23:04 Dose: 24 mls/hr Clindamycin Phosphate (Cleocin 600 Mg Premix Ivpb -) 50 mls @ 100 mls/hr IVPB Q8H-IV [facility] Last Admin: 06/08/16 10:12 Dose: 100 mls/hr Piperacillin Sod/Tazobactam Sod (Zosyn 2.25gm Ivpb (Pre-Docked)) 50 mls @ 100 mls/hr IVPB Q8H-IV [facility] PRN Reason: Protocol Last Admin: 06/08/16 02:53 Dose: 100 mls/hr Sodium Chloride (Normal Saline -) 1,000 mls @ 100 mls/hr IV ASDIR [facility] Last Admin: 06/07/16 13:00 Dose: 100 mls/hr Insulin Aspart (Novolog Vial Sliding Scale -) 1 vial SQ ACHS [facility] PRN Reason: Protocol Last Admin: 06/08/16 06:16 Dose: Not Given Insulin Detemir (Levemir Vial) 20 units SQ HS [facility] Last Admin: 06/07/16 23:07 Dose: 20 units Nicotine (Nicoderm Patch -) 14 mg TD DAILY [facility] Last Admin: 06/07/16 10:23 Dose: 14 mg Pantoprazole Sodium (Protonix -) 40 mg PO DAILY [facility] Last Admin: 06/07/16 10:24 Dose: 40 mg Warfarin Sodium 5 mg/ Warfarin (Sodium 2 mg) 7 mg PO DAILY@1800 [facility] Last Admin: 06/07/16 17:36 Dose: 7 mg A/P 75 year old woman with PMHx of CKD stage 4 (baseline Cr 2.2-2.5) from suspected diabetic nephropathy, hypertension, hypercholesterolemia, asthma, anemia, adult onset insulin dependent diabetes mellitus presented with JANE and found to have infected gluetial abcess and JOSE with BUN/Cr that peaked at 36/3.6, #JOSE on CKD Stage 4 secondary to sepsis/hemodyanic injury Check urine studies for FeNa, FeUrea Cr improving now on NS Continue IVF but monitor respiratory status closely check CXR portable Trend BUN/Cr Dose all meds for Cr Cl less then 20 no acute indication for [employer] #Metabolic Acidosis Corrected Anion gap is ~14 Start PO sodium bicarb 650mg Daily #Gluetal Abscess Continue Abx as per ID f/u cultures #Hypertension/Hypertensive Urgency Pt on Amlodpine and Diltizaem d/c amlodpine Hydralazine as needed if bp not at gaol #DM on Insulin with hyperglycemia continue insulin as needed Thank you Tylor To DO
[2016-06-08] MEDS ORDERED: PT OWN MED DRAWER 7, Y5N ONE (10:49)
[2016-06-08] MEDS: amLODIPine BESYLATE 10 MG TABLET (FP) PO SCH (10:51)
[2016-06-08] MEDS: NICOTINE 14 MG/24 HOURS TOPICAL PATCH TD SCH (10:51)
[2016-06-08] MEDS: PANTOPRAZOLE 40 MG TABLET (FP) PO SCH (10:51)
[2016-06-08] MEDS: ACLIDINIUM BROMIDE 400 MCG/INH AERO.POWD IH SCH ×2 (10:55→21:39)
[2016-06-08] MEDS ORDERED: ACETAMINOPHEN 325 MG TABLET (FP) PO PRN (11:11)
[2016-06-08] MEDS: CHOLECALCIFEROL (VITAMIN D3) 1,000 UNIT TABLET (FP) PO SCH (11:27)
--- NOTE | 2016-06-08 12:13 | PN ---
Progress Note (short form) - Note Progress Note: c/o fatigue and generalized weakness, difficutly getting out of bed due to weakness. denies CP, palpitations, N/V/C/D. no weight loss, or night sweats. Current Medications Generic Name Dose Route Start Last Admin Trade Name Freq PRN Reason Stop Dose Admin Acetaminophen 650 mg 06/08/16 11:11 Tylenol - PO Q6H PRN FEVER OR PAIN Aclidinium [place] 1 puff 06/06/16 22:00 06/08/16 10:55 Tudorza - IH 1 puff BID ERMA Administration Albuterol/Ipratropium 1 amp 06/06/16 13:44 06/06/16 22:15 Duoneb - NEB 1 amp Q4H PRN Administration SHORTNESS OF BREATH Budesonide 1 amp 06/06/16 14:45 06/07/16 22:05 Pulmicort 0.5 Mg Nebulizer - NEB 1 amp BID [facility] Administration Cholecalciferol 1,000 unit 06/05/16 10:00 06/08/16 11:27 Vitamin D3 - PO 1,000 unit DAILY [facility] Administration Diltiazem HCl 240 mg 06/06/16 09:30 06/08/16 10:51 Cardizem Cd - PO 240 mg DAILY [facility] Administration Diltiazem HCl 10 mg 06/06/16 09:31 06/06/16 12:14 Cardizem Injection - IVPUSH 10 mg Q2H PRN Administration TACHYCARDIA Heparin Sodium (Porcine) 1,000 unit 06/04/16 23:41 06/06/16 17:46 Heparin - IVPUSH 1,000 unit PRN PRN Administration Heparin Heparin Sodium (Porcine) 5,000 unit 06/04/16 23:41 Heparin - IVPUSH PRN PRN Heparin Heparin Sodium (Porcine) 25, 500 mls @ 20 mls/hr 06/04/16 23:45 06/08/16 09:18 000 unit/ Sodium Chloride IV 1,200 unit/hr TITR [facility] Titration Protocol 1,000 UNIT/HR Clindamycin Phosphate 50 mls @ 100 mls/hr 06/05/16 18:00 06/08/16 10:12 Cleocin 600 Mg Premix Ivpb - IVPB 100 mls/hr Q8H-IV [facility] Administration Piperacillin Sod/Tazobactam Sod 50 mls @ 100 mls/hr 06/05/16 18:00 06/08/16 10: 50 Zosyn 2.25gm Ivpb (Pre-Docked) IVPB 100 mls/hr Q8H-IV [facility] Administration Protocol Sodium Chloride 1,000 mls @ 100 mls/hr 06/06/16 13:45 06/07/16 13:00 Normal Saline - IV 100 mls/hr ASDIR [facility] Administration Insulin Aspart 1 vial 06/05/16 08:45 06/08/16 06:16 Novolog Vial Sliding Scale - SQ Not Given ACHS [facility] Protocol Insulin Detemir 20 units 06/07/16 22:00 06/07/16 23:07 Levemir Vial SQ 20 units HS [facility] Administration Nicotine 14 mg 06/05/16 10:00 06/08/16 10:51 Nicoderm Patch - TD 14 mg DAILY [facility] Administration Pantoprazole Sodium 40 mg 06/05/16 10:00 06/08/16 10:51 Protonix - PO 40 mg DAILY [facility] Administration Sodium Bicarbonate 650 mg 06/08/16 11:30 Sodium Bicarbonate - PO DAILY [facility] Warfarin Sodium 5 mg/ Warfarin 7 mg 06/07/16 18:00 06/07/16 17:36 Sodium 2 mg PO 7 mg DAILY@1800 [facility] Administration Last Vital Signs Temp Pulse Resp BP Pulse Ox 98.8 F 68 19 150/66 100 06/08/16 10:00 06/08/16 10:00 06/08/16 10:00 06/08/16 10:00 06/08/16 10:00 General NAD CV S1 S2 RRR no murmur/rub/gallop Lungs CTA B/L no wheezing/rales/rhonchi extremities no pedal edema skin- R buttock with slight induration area not erythematous + tender. no acitve drainage. packing in place CBCD WBC 9.5 K/mm3 (4.0-10.0) 06/08/16 05:35 RBC 3.44 M/mm3 (3.60-5.2) L 06/08/16 05:35 Hgb 10.7 GM/dL (10.7-15.3) 06/08/16 05:35 Hct 32.3 % (32.4-45.2) L 06/08/16 05:35 MCV 93.9 fl (80-96) 06/08/16 05:35 MCHC 33.0 g/dl (32.0-36.0) 06/08/16 05:35 RDW 15.5 % (11.6-15.6) 06/08/16 05:35 Plt Count 210 K/MM3 (134-434) D 06/08/16 05:35 MPV 9.9 fl (7.5-11.1) 06/08/16 05:35 CMP Sodium 142 mmol/L (136-145) 06/08/16 05:35 Potassium 4.1 mmol/L (3.5-5.1) 06/08/16 05:35 Chloride 113 mmol/L (98-107) H 06/08/16 05:35 Carbon Dioxide 18 mmol/L (21-32) L 06/08/16 05:35 Anion Gap 11 (8-16) 06/08/16 05:35 BUN 33 mg/dL (7-18) H 06/08/16 05:35 Creatinine 3.1 mg/dL (0.55-1.02) H 06/08/16 05:35 Creat Clearance w eGFR 13.56 (>60) 06/05/16 05:50 Calcium 7.9 mg/dL (8.5-10.1) L 06/08/16 05:35 Total Bilirubin 0.4 mg/dL (0.2-1.0) 06/05/16 05:50 AST 6 U/L (15-37) L D 06/05/16 05:50 ALT 8 U/L (12-78) L 06/05/16 05:50 Alkaline Phosphatase 65 U/L (45-117) 06/05/16 05:50 Total Protein 5.4 g/dl (6.4-8.2) L 06/05/16 05:50 Albumin 2.3 g/dl (3.4-5.0) L 06/05/16 05:50 Microbiology 06/04/16 12:42 Blood Culture - Preliminary Blood - Peripheral Venous NO GROWTH OBTAINED AFTER 72 HOURS, INCUBATION TO CONTINUE FOR 2 DAYS. 06/04/16 12:42 Blood Culture - Preliminary Blood - Peripheral Venous NO GROWTH OBTAINED AFTER 72 HOURS, INCUBATION TO CONTINUE FOR 2 DAYS. 06/05/16 14:30 Gram Stain - Final Abscess Wound Culture - Preliminary Viridans Streptococcus Group Staphylococcus Coagulase Neg ASSESSMENT AND PLAN: 75yo F with PMH aflutter s/p ablation, HTN, DM, dyslipidemia presented to the ER and was admitted for further evaluation of their emergent condition 1. Sepsis due to gluteal abscess- afebrile. s/p I&D (06/05) packing in place. management per surgery. on Cefazolin/zosyn day 4. will wait for c&s. informed to keep area clean after toileting. ID consulted. pain control 2. Afib with RVR-no events on the monitor. keep cardizem current dosing. INR therapeutic. will decrease coumadin to 5mg. cont hep ggt for additional 24H. 3. HTN urgency- slightly above goal. appreciate nephrology input. now off norvasc will need to monitor and might need to start additional agent. 4. Acute on CKD-baeline Cr 2.5-2.8 likely dehydration vs sepsis. Cr function improving. d/c IVF to prevent volume overload. 5. JANE-now resolved. fiorcet prn 6. SOB-saturating well on RA. CXR done this AM showing some vasc congestion. d/ c IVF. will need to asses if requires home O2. will wait till tomorrow when PT can assess as well. tarted on pulmicort/turdoza. will wait for improvement. nebs prn. supplemental oxygen to maintain spO2 >90%. pulmonary on board 7. generalized fatigue- >1year. anemia vs progression of disease vs uknown etiology. lymes titers pending 7. acute normocytic anemia- +iron deficiency anemia. on iron supplementation. no signs of bleeding. Hgb stable. 8. Hypomagnesemia- resolved 9. DM- A1c 9.9. improved. cont levemir 20units QHS. iss, bgm. 10. DVT ppx- hep ggt/coumadin bridge 11. d/c planning when medically optimized. will likely require JENNIFER on discharge. Visit type - Emergency Visit Emergency Visit: Yes ED Registration Date: 06/04/16 Care time: The patient presented to the Emergency Department on the above date and was hospitalized for further evaluation of their emergent condition. - New Patient This patient is new to me today: No - Critical Care Critical Care patient: No - Discharge Referral Referred to [facility] Med [facility].: No
[2016-06-08 12:29] LABS: URINE APPEARANCE CLEAR; URINE BILIRUBIN NEGATIVE (NEGATIVE); URINE COLOR STRAW; URINE GLUCOSE (UA) 1+ (NEGATIVE); URINE KETONE NEGATIVE (NEGATIVE); URINE NITRITE NEGATIVE (NEGATIVE); URINE UROBILINOGEN NEGATIVE E.U./dl (0.2-1.0)
--- NOTE | 2016-06-08 12:33 | PN ---
Progress Note, Physician Chief Complaint: Pt A&Ox3; no chest pain or dyspnea, but says she has been feeling "heavy" ( easily fatigued; little motivation) for months. History of Present Illness: The patient is a 75-year-old black woman, accompanied by daughter, with a significant past medical history of hypertension, hypercholesterolemia, asthma, anemia, adult onset insulin dependent diabetes mellitus and anxiety who presented to the emergency department for further evaluation of a headache. No recent head trauma. As per patient's daughter, the patient was noted to complain of a headache with associated episodes of shivering. Patient's glucose was measured and was reportedly to be 400. She had a similar presentation, over 1 year ago, where she was found to have a skin boil that was lanced and her headache resolved. Today, the patient was noted to have a lincoln-rectal skin boil. No dizziness, vision changes, speech difficulty, neck pain or stiffness, nausea , vomiting, diarrhea, hematochezia, melena, or numbness, tingling, or weakness to the extremities. Allergies: No Known Drug Allergies Past Surgical History: Orthopedic Surgery Social History: No tobacco, ETOH and recreational drug use. Primary Care Physician: Dr. Myesha Mcmullenlan [phone]/ - Current Medication List Current Medications: Active Medications Acetaminophen (Tylenol -) 650 mg PO Q6H PRN PRN Reason: FEVER OR PAIN Aclidinium [place] (Tudorza -) 1 puff IH BID [facility] Last Admin: 06/08/16 10:55 Dose: 1 puff Albuterol/Ipratropium (Duoneb -) 1 amp NEB Q4H PRN PRN Reason: SHORTNESS OF BREATH Last Admin: 06/06/16 22:15 Dose: 1 amp Budesonide (Pulmicort 0.5 Mg Nebulizer -) 1 amp NEB BID [facility] Last Admin: 06/08/16 10:16 Dose: Not Given Cholecalciferol (Vitamin D3 -) 1,000 unit PO DAILY [facility] Last Admin: 06/08/16 11:27 Dose: 1,000 unit Diltiazem HCl (Cardizem Cd -) 240 mg PO DAILY [facility] Last Admin: 06/08/16 10:51 Dose: 240 mg Diltiazem HCl (Cardizem Injection -) 10 mg IVPUSH Q2H PRN PRN Reason: TACHYCARDIA Last Admin: 06/06/16 12:14 Dose: 10 mg Heparin Sodium (Porcine) (Heparin -) 1,000 unit IVPUSH PRN PRN PRN Reason: Heparin Last Admin: 06/06/16 17:46 Dose: 1,000 unit Heparin Sodium (Porcine) (Heparin -) 5,000 unit IVPUSH PRN PRN PRN Reason: Heparin Heparin Sodium (Porcine) 25, (000 unit/ Sodium Chloride) 500 mls @ 20 mls/hr IV TITR ERMA; 1,000 UNIT/HR PRN Reason: Protocol Last Titration: 06/08/16 09:18 Dose: 1,200 unit/hr Clindamycin Phosphate (Cleocin 600 Mg Premix Ivpb -) 50 mls @ 100 mls/hr IVPB Q8H-IV [facility] Last Admin: 06/08/16 10:12 Dose: 100 mls/hr Piperacillin Sod/Tazobactam Sod (Zosyn 2.25gm Ivpb (Pre-Docked)) 50 mls @ 100 mls/hr IVPB Q8H-IV [facility] PRN Reason: Protocol Last Admin: 06/08/16 10:50 Dose: 100 mls/hr Sodium Chloride (Normal Saline -) 1,000 mls @ 100 mls/hr IV ASDIR [facility] Last Admin: 06/07/16 13:00 Dose: 100 mls/hr Insulin Aspart (Novolog Vial Sliding Scale -) 1 vial SQ ACHS [facility] PRN Reason: Protocol Last Admin: 06/08/16 12:30 Dose: Not Given Insulin Detemir (Levemir Vial) 20 units SQ HS [facility] Last Admin: 06/07/16 23:07 Dose: 20 units Nicotine (Nicoderm Patch -) 14 mg TD DAILY [facility] Last Admin: 06/08/16 10:51 Dose: 14 mg Pantoprazole Sodium (Protonix -) 40 mg PO DAILY [facility] Last Admin: 06/08/16 10:51 Dose: 40 mg Sodium Bicarbonate (Sodium Bicarbonate -) 650 mg PO DAILY [facility] Warfarin Sodium 5 mg/ Warfarin (Sodium 2 mg) 7 mg PO DAILY@1800 [facility] Last Admin: 06/07/16 17:36 Dose: 7 mg - Objective Vital Signs: Vital Signs Temperature 98.8 F 06/08/16 10:00 Pulse Rate 68 06/08/16 10:00 Respiratory Rate 19 06/08/16 10:00 Blood Pressure 150/66 06/08/16 10:00 O2 Sat by Pulse Oximetry (%) 100 06/08/16 10:00 Constitutional: Yes: Calm, Mild Distress (worries about her ongoing feelings of fatigue and lack of motivavtion) Eyes: Yes: WNL HENT: Yes: WNL Neck: Yes: WNL Cardiovascular: Yes: Regular Rate and Rhythm, S1, S2, S4 Respiratory: Yes: Regular Gastrointestinal: Yes: Soft ...Rectal Exam: Yes: Deferred Genitourinary: No: Anuria Musculoskeletal: Yes: Muscle Weakness Edema: No Peripheral Pulses WNL: Yes Integumentary: Yes: WNL Neurological: Yes: WNL Psychiatric: Yes: Other (anxiety) Labs: CBC, BMP 06/08/16 05:35 06/08/16 05:35 INR, PTT INR 2.43 (0.82-1.09) H D 06/08/16 09:30 Abnormal Lab Results 06/08/16 06/08/16 06/08/16 05:35 05:35 05:35 RBC 3.44 L Hct 32.3 L INR PTT (Actin FS) 70.4 H Chloride 113 H Carbon Dioxide 18 L BUN 33 H Creatinine 3.1 H Calcium 7.9 L Urine Protein Urine Glucose (UA) Urine Blood Ur Leukocyte Esterase U Random Total Protein 06/08/16 06/08/16 06/08/16 09:30 11:55 11:55 RBC Hct INR 2.43 H D PTT (Actin FS) Chloride Carbon Dioxide BUN Creatinine Calcium Urine Protein 2+ H Urine Glucose (UA) 1+ H D Urine Blood 1+ H Ur Leukocyte Esterase Trace H U Random Total Protein 89 H - ....Imaging Chest X-ray: Image Reviewed (minimal congestive changes) Problem List - Problems (1) Asthma Assessment/Plan: on inhalers. Code(s): J45.909 - UNSPECIFIED ASTHMA, UNCOMPLICATED (2) Cellulitis and abscess of buttock Assessment/Plan: On dual antibiotics. F/u with surgeon and ID. (3) Current smoker Assessment/Plan: On nicotine patch. Code(s): F17.200 - NICOTINE DEPENDENCE, UNSPECIFIED, UNCOMPLICATED (4) Migraine headache Assessment/Plan: no headaches presently. Code(s): G43.909 - MIGRAINE, UNSP, NOT INTRACTABLE, WITHOUT STATUS MIGRAINOSUS Qualifiers: Migraine type: other Intractability: not intractable (5) Paroxysmal atrial fibrillation with RVR Assessment/Plan: On diltiazem CD. INR 2.43 (On warfarin). Code(s): I48.0 - PAROXYSMAL ATRIAL FIBRILLATION (6) COPD (chronic obstructive pulmonary disease) Code(s): J44.9 - CHRONIC OBSTRUCTIVE PULMONARY DISEASE, UNSPECIFIED Qualifiers : COPD type: emphysema Emphysema type: unspecified Qualified Code(s) : J43.9 - Emphysema, unspecified (7) Pulmonary hypertension Code(s): I27.2 - OTHER SECONDARY PULMONARY HYPERTENSION (8) Depression Code(s): F32.9 - MAJOR DEPRESSIVE DISORDER, SINGLE EPISODE, UNSPECIFIED (9) Hypertension Assessment/Plan: On diltiazem for BP and HR. May need a second antihypertensive agent; choice is made more difficult due to renal dysfunction. Consider hydralazine. 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 Code(s): N28.9 - DISORDER OF KIDNEY AND URETER, UNSPECIFIED
[2016-06-08 12:54] LABS: URINE CREATININE 56.6 mg/dL
[2016-06-08 13:02] LABS: URINE BLOOD 1+ (NEGATIVE); URINE LEUK ESTERASE TRACE (NEGATIVE); URINE PROTEIN 2+ (NEGATIVE)
[2016-06-08 13:15] LABS: URINE RBC 1 /hpf (0-3); URINE WBC <1 /hpf (3-5)
[2016-06-08] MEDS: SODIUM BICARBONATE 650 MG TABLET PO SCH (13:55)
--- NOTE | 2016-06-08 17:09 | PN ---
Progress Note, Physician History of Present Illness: feeling more better no issues - Current Medication List Current Medications: Active Medications Acetaminophen (Tylenol -) 650 mg PO Q6H PRN PRN Reason: FEVER OR PAIN Last Admin: 06/08/16 15:03 Dose: 650 mg Aclidinium [place] (Tudorza -) 1 puff IH BID [facility] Last Admin: 06/08/16 10:55 Dose: 1 puff Albuterol/Ipratropium (Duoneb -) 1 amp NEB Q4H PRN PRN Reason: SHORTNESS OF BREATH Last Admin: 06/06/16 22:15 Dose: 1 amp Budesonide (Pulmicort 0.5 Mg Nebulizer -) 1 amp NEB BID [facility] Last Admin: 06/08/16 10:16 Dose: Not Given Cholecalciferol (Vitamin D3 -) 1,000 unit PO DAILY [facility] Last Admin: 06/08/16 11:27 Dose: 1,000 unit Diltiazem HCl (Cardizem Cd -) 240 mg PO DAILY [facility] Last Admin: 06/08/16 10:51 Dose: 240 mg Diltiazem HCl (Cardizem Injection -) 10 mg IVPUSH Q2H PRN PRN Reason: TACHYCARDIA Last Admin: 06/06/16 12:14 Dose: 10 mg Heparin Sodium (Porcine) (Heparin -) 1,000 unit IVPUSH PRN PRN PRN Reason: Heparin Last Admin: 06/06/16 17:46 Dose: 1,000 unit Heparin Sodium (Porcine) (Heparin -) 5,000 unit IVPUSH PRN PRN PRN Reason: Heparin Heparin Sodium (Porcine) 25, (000 unit/ Sodium Chloride) 500 mls @ 20 mls/hr IV TITR ERMA; 1,000 UNIT/HR PRN Reason: Protocol Last Titration: 06/08/16 09:18 Dose: 1,200 unit/hr Clindamycin Phosphate (Cleocin 600 Mg Premix Ivpb -) 50 mls @ 100 mls/hr IVPB Q8H-IV [facility] Last Admin: 06/08/16 10:12 Dose: 100 mls/hr Piperacillin Sod/Tazobactam Sod (Zosyn 2.25gm Ivpb (Pre-Docked)) 50 mls @ 100 mls/hr IVPB Q8H-IV [facility] PRN Reason: Protocol Last Admin: 06/08/16 10:50 Dose: 100 mls/hr Insulin Aspart (Novolog Vial Sliding Scale -) 1 vial SQ [facility] COUNTS INCLUDE 234 BEDS AT THE [facility] PRN Reason: Protocol Last Admin: 06/08/16 12:30 Dose: Not Given Insulin Detemir (Levemir Vial) 20 units SQ HS COUNTS INCLUDE 234 BEDS AT THE [facility] Last Admin: 06/07/16 23:07 Dose: 20 units Nicotine (Nicoderm Patch -) 14 mg TD DAILY [facility]S [facility]CLUDE 234 BEDS AT THE [facility] Last Admin: 06/08/16 10:51 Dose: 14 mg Pantoprazole Sodium (Protonix -) 40 mg PO DAILY [facility]S [facility]CLUDE 234 BEDS AT THE [facility] Last Admin: 06/08/16 10:51 Dose: 40 mg Sodium Bicarbonate (Sodium Bicarbonate -) 650 mg PO DAILY [facility]S [facility]CLUDE 234 BEDS AT THE [facility] Last Admin: 06/08/16 13:55 Dose: 650 mg Warfarin Sodium (Coumadin -) 5 mg PO DAILY@1800 COUNTS [facility]CLUDE 234 BEDS AT THE [facility] - Objective Vital Signs: Vital Signs Temperature 98.8 F 06/08/16 10:00 Pulse Rate 68 06/08/16 10:00 Respiratory Rate 19 06/08/16 10:00 Blood Pressure 150/66 06/08/16 10:00 O2 Sat by Pulse Oximetry (%) 100 06/08/16 10:00 Constitutional: Yes: No Distress, Calm Cardiovascular: Yes: Regular Rate and Rhythm Respiratory: Yes: Regular, Poor Air Entry, Rhonchi Gastrointestinal: Yes: Normal Bowel Sounds, Soft Musculoskeletal: Yes: WNL Extremities: Yes: WNL Wound/Incision: Yes: Dressing Dry and Intact Neurological: Yes: Alert, Oriented Psychiatric: Yes: Alert, Oriented Labs: CBC, BMP 06/08/16 05:35 06/08/16 05:35 INR, PTT INR 2.43 (0.82-1.09) H D 06/08/16 09:30 Assessment/Plan - Problem Paroxysmal atrial fibrillation with RVR Code(s): I48.0 - PAROXYSMAL ATRIAL FIBRILLATION CKD stage 4 due to type 2 diabetes mellitus Code(s): E11.22 - TYPE 2 DIABETES MELLITUS W DIABETIC CHRONIC KIDNEY DISEASE N18.4 - CHRONIC KIDNEY DISEASE, STAGE 4 (SEVERE) Intractable headache Code(s): R51 - HEADACHE Asthma Code(s): J45.909 - UNSPECIFIED ASTHMA, UNCOMPLICATED IDDM (insulin dependent diabetes mellitus) Code(s): E11.9 - TYPE 2 DIABETES MELLITUS WITHOUT COMPLICATIONS 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
[2016-06-08] MEDS: WARFARIN NA 5 MG TABLET (UD) PO SCH (17:10)
[2016-06-08] MEDS: INSULIN DETEMIR 100 UNITS/ML MDV SQ SCH (21:37)
[2016-06-08] MEDS: HEPARIN - 25,000 UNIT in SODIUM CHLORIDE 495 ML IV SCH (23:50)
[2016-06-09] MEDS: PIPERACILLIN/TAZOB 2.25 GM 50 ML IVPB SCH ×3 (02:04→19:19)
[2016-06-09] MEDS: CLINDAMYCIN 600MG PREMIX IVPB 50 ML IVPB SCH ×3 (02:04→19:19)
[2016-06-09] MEDS: INSULIN SLIDING SCALE (NOVOLOG) 1 VIAL SQ SCH ×4 (06:32→21:40)
[2016-06-09 07:52] LABS: MCH 30.7 pg (25.7-33.7); MCHC 33.2 g/dl (32.0-36.0); MEAN CELL VOLUME 92.7 fl (80-96); MEAN PLT VOLUME 10.2 fl (7.5-11.1); PLATELET COUNT 243 K/MM3 (134-434); RDW 15.2 % (11.6-15.6); WHITE BLOOD COUNT 9.8 K/mm3 (4.0-10.0)
[2016-06-09 07:55] LABS: INR 2.83 (0.82-1.09); PROTHROMBIN TIME (PATIENT) 31.8 SEC (9.98-11.88)
[2016-06-09 08:33] LABS: CALCIUM 8.3 mg/dL (8.5-10.1); COCKROFT - GAULT 24.9815; CREATININE 2.7 mg/dL (0.55-1.02)
[2016-06-09] MEDS: BUDESONIDE 0.5 MG/2 ML INH SUSP VIAL NEB SCH ×3 (09:35→22:30)
[2016-06-09] MEDS: CHOLECALCIFEROL (VITAMIN D3) 1,000 UNIT TABLET (FP) PO SCH (10:44)
[2016-06-09] MEDS: SODIUM BICARBONATE 650 MG TABLET PO SCH (10:44)
[2016-06-09] MEDS: PANTOPRAZOLE 40 MG TABLET (FP) PO SCH (10:44)
[2016-06-09] MEDS: ACLIDINIUM BROMIDE 400 MCG/INH AERO.POWD IH SCH ×2 (10:45→21:41)
[2016-06-09] MEDS: NICOTINE 14 MG/24 HOURS TOPICAL PATCH TD SCH (10:45)
--- NOTE | 2016-06-09 10:57 | PN ---
Teaching Attending Note Name of Resident: Antwon Grace ATTENDING PHYSICIAN STATEMENT I saw and evaluated the patient. I reviewed the resident's note and discussed the case with the resident. I agree with the resident's findings and plan as documented. SUBJECTIVE:continues to be SOB on exertion. pain in buttocks improved. denies CP , cough, fever, chills, N/V/C/D OBJECTIVE: Last Vital Signs Temp Pulse Resp BP Pulse Ox 98.7 F 76 20 166/74 98 06/09/16 06:00 06/09/16 06:00 06/09/16 06:00 06/09/16 06:00 06/09/16 05:56 General NAD CV S1 S2 RRR no murmur/rub/gallop Lungs CTA B/L no wheezing/rales/rhonchi Skin R buttock with ulcer with good granulation tissue, no induration, non tender no drainage ASSESSMENT AND PLAN: 75yo F with PMH aflutter s/p ablation, HTN, DM, dyslipidemia presented to the ER and was admitted for further evaluation of their emergent condition 1. Sepsis due to gluteal abscess- afebrile. s/p I&D (06/05) packing removed. on Cefazolin/zosyn day 5. will d/w ID about transitioning to po once c&s. informed to keep area clean after toileting. ID consulted. pain control 2. Afib with RVR-no events on the monitor. keep cardizem current dosing. INR therapeutic. d/c heparin ggt. cont coumadin 5mg. will need repeat INR in 48H. 3. HTN urgency- slightly above goal. will start low dose hydralazine to optimize control 4. Acute on CKD-baeline Cr 2.5-2.8 likely dehydration vs sepsis. Cr function improving. 5. JANE-now resolved. fiorcet prn 6. SOB-saturating well on RA. eval if qualifieis for home O2. on pulmicort/ turdoza. will wait for improvement. nebs prn. supplemental oxygen to maintain spO2 >90%. pulmonary on board 7. generalized fatigue- >1year. anemia vs progression of disease vs uknown etiology. lymes titers pending 7. acute normocytic anemia- +iron deficiency anemia. on iron supplementation. no signs of bleeding. Hgb stable. 8. Hypomagnesemia- resolved 9. DM- A1c 9.9. improved. cont levemir 20units QHS. iss, bgm. 10. DVT ppx- hep ggt/coumadin bridge 11. d/c planning once convert abx to po. will require JENNIFER on discharge.
--- NOTE | 2016-06-09 11:04 | PN ---
Progress Note (short form) - Note Progress Note: Neurology The patient is a 75-year-old woman, accompanied by daughter, with a significant past medical history of hypertension, hypercholesterolemia, asthma, anemia, adult onset insulin dependent diabetes mellitus and anxiety who presented to the emergency department for further evaluation of a headache. The patient had an ongoing abcess infection, though now status post drainage. Her headache has improved and likely related to stress of ongoing infection. Ct head without acute changes. Active Medications Acetaminophen (Tylenol -) 650 mg PO Q6H PRN PRN Reason: FEVER OR PAIN Last Admin: 06/08/16 15:03 Dose: 650 mg Aclidinium [place] (Tudorza -) 1 puff IH BID [facility] Last Admin: 06/09/16 10:45 Dose: 1 puff Albuterol/Ipratropium (Duoneb -) 1 amp NEB Q4H PRN PRN Reason: SHORTNESS OF BREATH Last Admin: 06/06/16 22:15 Dose: 1 amp Budesonide (Pulmicort 0.5 Mg Nebulizer -) 1 amp NEB BID [facility] Last Admin: 06/09/16 09:35 Dose: Not Given Cholecalciferol (Vitamin D3 -) 1,000 unit PO DAILY [facility] Last Admin: 06/09/16 10:44 Dose: 1,000 unit Diltiazem HCl (Cardizem Cd -) 240 mg PO DAILY [facility] Last Admin: 06/09/16 10:44 Dose: 240 mg Diltiazem HCl (Cardizem Injection -) 10 mg IVPUSH Q2H PRN PRN Reason: TACHYCARDIA Last Admin: 06/06/16 12:14 Dose: 10 mg Clindamycin Phosphate (Cleocin 600 Mg Premix Ivpb -) 50 mls @ 100 mls/hr IVPB Q8H-IV [facility] Last Admin: 06/09/16 10:45 Dose: 100 mls/hr Piperacillin Sod/Tazobactam Sod (Zosyn 2.25gm Ivpb (Pre-Docked)) 50 mls @ 100 mls/hr IVPB Q8H-IV [facility] PRN Reason: Protocol Last Admin: 06/09/16 10:45 Dose: 100 mls/hr Insulin Aspart (Novolog Vial Sliding Scale -) 1 vial SQ ACHS [facility] PRN Reason: Protocol Last Admin: 06/09/16 06:32 Dose: Not Given Insulin Detemir (Levemir Vial) 20 units SQ HS [facility] Last Admin: 06/08/16 21:37 Dose: 20 units Nicotine (Nicoderm Patch -) 14 mg TD DAILY [facility] Last Admin: 06/09/16 10:45 Dose: 14 mg Pantoprazole Sodium (Protonix -) 40 mg PO DAILY [facility] Last Admin: 06/09/16 10:44 Dose: 40 mg Sodium Bicarbonate (Sodium Bicarbonate -) 650 mg PO DAILY [facility] Last Admin: 06/09/16 10:44 Dose: 650 mg Warfarin Sodium (Coumadin -) 5 mg PO DAILY@1800 [facility] Last Admin: 06/08/16 17:10 Dose: 5 mg *Physical Exam Vital Signs Temperature 98.7 F 06/09/16 06:00 Pulse Rate 76 06/09/16 06:00 Respiratory Rate 20 06/09/16 06:00 Blood Pressure 166/74 06/09/16 06:00 O2 Sat by Pulse Oximetry (%) 98 06/09/16 05:56 GENERAL: Awake, alert. Moaning in pain HEAD: No signs of trauma EYES: PERRLA, EOMI, sclera anicteric, conjunctiva clear ENT: Auricles normal inspection, hearing grossly normal, nares patent, oropharynx clear without exudates. Moist mucosa NECK: Normal ROM, supple, no lymphadenopathy, JVD, or masses LUNGS: Breath sounds equal, clear to auscultation bilaterally. No wheezes, and no crackles HEART: Regular rate and rhythm, normal S1 and S2, no murmurs, rubs or gallops ABDOMEN: Soft, nontender, normoactive bowel sounds. No guarding, no rebound. No masses EXTREMITIES: Normal range of motion, no edema. No clubbing or cyanosis. No cords, erythema, or tenderness NEUROLOGICAL: Cranial nerves II through XII grossly intact, sensory normal, strength equal, gait deferrred - RADIOLOGY EXAM: RAD/CHEST X-RAY PORTABLE IMPRESSION: Since 07/30/2015 at 1457 hours, the atelectasis at the right base has resolved. There is still a prominent mediastinum with weak inspiration. Angles are sharp. The bones and soft tissues are intact. There is a prominent knob and normal faizan. Follow-up recommended EXAM: CT/HEAD CT WITHOUT CONTRAST IMPRESSION: CT scan of the brain without intravenous contrast Since 07/30/2015, there remains moderate atrophy, ventricular dilatation and periventricular chronic microvascular ischemic changes. No mass lesion, gross acute infarct or intracranial hemorrhage is seen. There is no shift of the midline structures. The calvarium is intact. Calcification of the cavernous carotid arteries are present. Mild mucosal thickening in the ethmoid air cells and a trace of fluid in the left maxillary antrum layering posteriorly. The mastoid air cells are well aerated CBCD WBC 9.8 K/mm3 (4.0-10.0) 06/09/16 05:35 RBC 3.59 M/mm3 (3.60-5.2) L 06/09/16 05:35 Hgb 11.0 GM/dL (10.7-15.3) 06/09/16 05:35 Hct 33.2 % (32.4-45.2) 06/09/16 05:35 MCV 92.7 fl (80-96) 06/09/16 05:35 MCHC 33.2 g/dl (32.0-36.0) 06/09/16 05:35 RDW 15.2 % (11.6-15.6) 06/09/16 05:35 Plt Count 243 K/MM3 (134-434) 06/09/16 05:35 MPV 10.2 fl (7.5-11.1) 06/09/16 05:35 CMP Sodium 146 mmol/L (136-145) H 06/09/16 05:35 Potassium 4.1 mmol/L (3.5-5.1) 06/09/16 05:35 Chloride 116 mmol/L (98-107) H 06/09/16 05:35 Carbon Dioxide 18 mmol/L (21-32) L 06/09/16 05:35 Anion Gap 12 (8-16) 06/09/16 05:35 BUN 25 mg/dL (7-18) H D 06/09/16 05:35 Creatinine 2.7 mg/dL (0.55-1.02) H 06/09/16 05:35 Creat Clearance w eGFR 13.56 (>60) 06/05/16 05:50 Calcium 8.3 mg/dL (8.5-10.1) L 06/09/16 05:35 Total Bilirubin 0.4 mg/dL (0.2-1.0) 06/05/16 05:50 AST 6 U/L (15-37) L D 06/05/16 05:50 ALT 8 U/L (12-78) L 06/05/16 05:50 Alkaline Phosphatase 65 U/L (45-117) 06/05/16 05:50 Total Protein 5.4 g/dl (6.4-8.2) L 06/05/16 05:50 Albumin 2.3 g/dl (3.4-5.0) L 06/05/16 05:50 Plan: 75-year-old woman, accompanied by daughter, with a significant past medical history of hypertension, hypercholesterolemia, asthma, anemia, adult onset insulin dependent diabetes mellitus and anxiety who presented to the emergency department for further evaluation of a headache. The patient had an ongoing abcess infection, though now status post drainage. Her headache has improved and likely related to stress of ongoing infection. Ct head without acute changes. Started on Fioricet and appears to be doing well and if needed can be reordered as it is not currently active. No headache today. Monitor wound, now status post drainage. ID follow up.
--- NOTE | 2016-06-09 11:21 | PN ---
Progress Note, Physician History of Present Illness: PULMONARY ALERT FEELING BETTER,LESS DYSPNEIC,-CP,-COUGH - Current Medication List Current Medications: Active Medications Acetaminophen (Tylenol -) 650 mg PO Q6H PRN PRN Reason: FEVER OR PAIN Last Admin: 06/08/16 15:03 Dose: 650 mg Aclidinium [place] (Tudorza -) 1 puff IH BID [facility] Last Admin: 06/09/16 10:45 Dose: 1 puff Albuterol/Ipratropium (Duoneb -) 1 amp NEB Q4H PRN PRN Reason: SHORTNESS OF BREATH Last Admin: 06/06/16 22:15 Dose: 1 amp Budesonide (Pulmicort 0.5 Mg Nebulizer -) 1 amp NEB BID [facility] Last Admin: 06/09/16 09:35 Dose: Not Given Cholecalciferol (Vitamin D3 -) 1,000 unit PO DAILY [facility] Last Admin: 06/09/16 10:44 Dose: 1,000 unit Diltiazem HCl (Cardizem Cd -) 240 mg PO DAILY [facility] Last Admin: 06/09/16 10:44 Dose: 240 mg Diltiazem HCl (Cardizem Injection -) 10 mg IVPUSH Q2H PRN PRN Reason: TACHYCARDIA Last Admin: 06/06/16 12:14 Dose: 10 mg Clindamycin Phosphate (Cleocin 600 Mg Premix Ivpb -) 50 mls @ 100 mls/hr IVPB Q8H-IV [facility] Last Admin: 06/09/16 10:45 Dose: 100 mls/hr Piperacillin Sod/Tazobactam Sod (Zosyn 2.25gm Ivpb (Pre-Docked)) 50 mls @ 100 mls/hr IVPB Q8H-IV [facility] PRN Reason: Protocol Last Admin: 06/09/16 10:45 Dose: 100 mls/hr Insulin Aspart (Novolog Vial Sliding Scale -) 1 vial SQ ACHS [facility] PRN Reason: Protocol Last Admin: 06/09/16 06:32 Dose: Not Given Insulin Detemir (Levemir Vial) 20 units SQ HS [facility] Last Admin: 06/08/16 21:37 Dose: 20 units Nicotine (Nicoderm Patch -) 14 mg TD DAILY [facility] Last Admin: 06/09/16 10:45 Dose: 14 mg Pantoprazole Sodium (Protonix -) 40 mg PO DAILY [facility] Last Admin: 06/09/16 10:44 Dose: 40 mg Sodium Bicarbonate (Sodium Bicarbonate -) 650 mg PO DAILY [facility] Last Admin: 06/09/16 10:44 Dose: 650 mg Warfarin Sodium (Coumadin -) 5 mg PO DAILY@1800 [facility] Last Admin: 06/08/16 17:10 Dose: 5 mg - Objective Vital Signs: Vital Signs Temperature 98.7 F 06/09/16 06:00 Pulse Rate 76 06/09/16 06:00 Respiratory Rate 20 06/09/16 06:00 Blood Pressure 166/74 06/09/16 06:00 O2 Sat by Pulse Oximetry (%) 98 06/09/16 05:56 Constitutional: Yes: Well Nourished, Calm Eyes: Yes: WNL HENT: Yes: WNL Neck: Yes: WNL Cardiovascular: Yes: Pulse Irregular, S1, S2 Respiratory: Yes: Rales (BIBASILAR CRACKLES) Gastrointestinal: Yes: Normal Bowel Sounds, Soft Extremities: Yes: WNL Edema: No Labs: CBC, BMP 06/09/16 05:35 06/09/16 05:35 INR, PTT INR 2.83 (0.82-1.09) H 06/09/16 05:35 Problem List - Problems (1) Anemia Code(s): D64.9 - ANEMIA, UNSPECIFIED (2) Asthma Code(s): J45.909 - UNSPECIFIED ASTHMA, UNCOMPLICATED (4) Current smoker Code(s): F17.200 - NICOTINE DEPENDENCE, UNSPECIFIED, UNCOMPLICATED (5) IDDM (insulin dependent diabetes mellitus) Code(s): E11.9 - TYPE 2 DIABETES MELLITUS WITHOUT COMPLICATIONS Z79.4 - ASSISTED (CURRENT) USE OF INSULIN (6) Paroxysmal atrial fibrillation with RVR Code(s): I48.0 - PAROXYSMAL ATRIAL FIBRILLATION (7) Renal dysfunction Code(s): N28.9 - DISORDER OF KIDNEY AND URETER, UNSPECIFIED (8) CKD stage 4 due to type 2 diabetes mellitus Code(s): E11.22 - TYPE 2 DIABETES MELLITUS W DIABETIC CHRONIC KIDNEY DISEASE N18.4 - CHRONIC KIDNEY DISEASE, STAGE 4 (SEVERE) (9) COPD (chronic obstructive pulmonary disease) Code(s): J44.9 - CHRONIC OBSTRUCTIVE PULMONARY DISEASE, UNSPECIFIED Qualifiers : COPD type: emphysema Emphysema type: unspecified Qualified Code(s) : J43.9 - Emphysema, unspecified (10) Acute on chronic renal insufficiency Code(s): N28.9 - DISORDER OF KIDNEY AND URETER, UNSPECIFIED N18.9 - CHRONIC KIDNEY DISEASE, UNSPECIFIED (11) CAD (coronary artery disease) Code(s): I25.10 - ATHSCL HEART DISEASE OF [place] CORONARY ARTERY W/O ANG PCTRS (12) CHF (congestive heart failure) Code(s): I50.9 - HEART FAILURE, UNSPECIFIED (13) Tobacco abuse Code(s): Z72.0 - TOBACCO USE Assessment/Plan IMP COPD ADMITTED WITH RAPID AF /GLUTEAL SKIN INFECTION/FEVER WORSENING RENAL INSUFFICIENCY HTN/HPL DIABETES POORLY CONTROLLED SMOKER O2 TO KEEP SAT GREATER THAN 90% BRONCHODILATORS RATE CONTROL ANTICOAGULATION GLYCEMIC CONTROL ANTIBIOTICS PER ID DEBRIDEMENT NEEDED DR GOULD
--- NOTE | 2016-06-09 11:56 | PN ---
Progress Note (short form) - Note Progress Note: Renal Follow up for JOSE on CKD Pt seen and examined at the bedside no chest pain sob is improved but still gets fatigued with exertion no abd pain Vital Signs Temperature 98.7 F 06/09/16 06:00 Pulse Rate 76 06/09/16 06:00 Respiratory Rate 20 06/09/16 06:00 Blood Pressure 166/74 06/09/16 06:00 O2 Sat by Pulse Oximetry (%) 98 06/09/16 05:56 Intake & Output 06/06/16 06/07/16 06/08/16 06/09/16 23:59 23:59 23:59 23:59 Intake Total 200 2108 1862 598 Output Total 350 Balance 200 1758 1862 598 Gen: Mildly dyspneic CVS: RRR, No M/R Lungs: + crackles at lung bases, no wheeze Abd: soft NT/ND, nO bladder distension Ext: No edema, clubbing or cyanosis CBC, BMP 06/09/16 05:35 06/09/16 05:35 Current Medications Acetaminophen (Tylenol -) 650 mg PO Q6H PRN PRN Reason: FEVER OR PAIN Last Admin: 06/08/16 15:03 Dose: 650 mg Aclidinium [place] (Tudorza -) 1 puff IH BID [facility] Last Admin: 06/09/16 10:45 Dose: 1 puff Albuterol/Ipratropium (Duoneb -) 1 amp NEB Q4H PRN PRN Reason: SHORTNESS OF BREATH Last Admin: 06/06/16 22:15 Dose: 1 amp Budesonide (Pulmicort 0.5 Mg Nebulizer -) 1 amp NEB BID [facility] Last Admin: 06/09/16 09:35 Dose: Not Given Cholecalciferol (Vitamin D3 -) 1,000 unit PO DAILY [facility] Last Admin: 06/09/16 10:44 Dose: 1,000 unit Diltiazem HCl (Cardizem Cd -) 240 mg PO DAILY [facility] Last Admin: 06/09/16 10:44 Dose: 240 mg Diltiazem HCl (Cardizem Injection -) 10 mg IVPUSH Q2H PRN PRN Reason: TACHYCARDIA Last Admin: 06/06/16 12:14 Dose: 10 mg Hydralazine HCl (Apresoline -) 10 mg PO Q6H [facility] Clindamycin Phosphate (Cleocin 600 Mg Premix Ivpb -) 50 mls @ 100 mls/hr IVPB Q8H-IV [facility] Last Admin: 06/09/16 10:45 Dose: 100 mls/hr Piperacillin Sod/Tazobactam Sod (Zosyn 2.25gm Ivpb (Pre-Docked)) 50 mls @ 100 mls/hr IVPB Q8H-IV [facility] PRN Reason: Protocol Last Admin: 06/09/16 10:45 Dose: 100 mls/hr Insulin Aspart (Novolog Vial Sliding Scale -) 1 vial SQ ACHS [facility] PRN Reason: Protocol Last Admin: 06/09/16 06:32 Dose: Not Given Insulin Detemir (Levemir Vial) 20 units SQ HS [facility] Last Admin: 06/08/16 21:37 Dose: 20 units Nicotine (Nicoderm Patch -) 14 mg TD DAILY [facility] Last Admin: 06/09/16 10:45 Dose: 14 mg Pantoprazole Sodium (Protonix -) 40 mg PO DAILY [facility] Last Admin: 06/09/16 10:44 Dose: 40 mg Sodium Bicarbonate (Sodium Bicarbonate -) 650 mg PO DAILY [facility] Last Admin: 06/09/16 10:44 Dose: 650 mg Warfarin Sodium (Coumadin -) 5 mg PO DAILY@1800 [facility] Last Admin: 06/08/16 17:10 Dose: 5 mg A/P 75 year old woman with PMHx of CKD stage 4 (baseline Cr 2.2-2.5) from suspected diabetic nephropathy, hypertension, hypercholesterolemia, asthma, anemia, adult onset insulin dependent diabetes mellitus presented with JANE and found to have infected gluetial abcess and JOSE with BUN/Cr that peaked at 36/3.6, #JOSE on CKD Stage 4 secondary to sepsis/hemodyanic injury Renal function with mild improvement IVF held yesterday afternoon because of sob no acute need for fluids as renal function is improved urine studies showed subnephrotic proteinuria continue to trend BUN/Cr #Metabolic Acidosis Start PO sodium bicarb 650mg Daily goal bicarb > 22 #Gluetal Abscess Continue Abx as per ID f/u cultures #Hypertension/Hypertensive Urgency on Diltizaem and Hydraalzine no GLENDA/ARB given low GFR #DM on Insulin with hyperglycemia continue insulin as needed Thank you Tylor To DO
--- NOTE | 2016-06-09 12:10 | PN ---
Progress Note, Physician History of Present Illness: seen and examined today in nad. intermittent worsening of sob. currently feels at baseline. no new complaints. - Current Medication List Current Medications: Active Medications Acetaminophen (Tylenol -) 650 mg PO Q6H PRN PRN Reason: FEVER OR PAIN Last Admin: 06/08/16 15:03 Dose: 650 mg Aclidinium [place] (Tudorza -) 1 puff IH BID [facility] Last Admin: 06/09/16 10:45 Dose: 1 puff Albuterol/Ipratropium (Duoneb -) 1 amp NEB Q4H PRN PRN Reason: SHORTNESS OF BREATH Last Admin: 06/06/16 22:15 Dose: 1 amp Budesonide (Pulmicort 0.5 Mg Nebulizer -) 1 amp NEB BID [facility] Last Admin: 06/09/16 09:35 Dose: Not Given Cholecalciferol (Vitamin D3 -) 1,000 unit PO DAILY [facility] Last Admin: 06/09/16 10:44 Dose: 1,000 unit Diltiazem HCl (Cardizem Cd -) 240 mg PO DAILY [facility] Last Admin: 06/09/16 10:44 Dose: 240 mg Diltiazem HCl (Cardizem Injection -) 10 mg IVPUSH Q2H PRN PRN Reason: TACHYCARDIA Last Admin: 06/06/16 12:14 Dose: 10 mg Hydralazine HCl (Apresoline -) 10 mg PO Q6HPO [facility] Clindamycin Phosphate (Cleocin 600 Mg Premix Ivpb -) 50 mls @ 100 mls/hr IVPB Q8H-IV [facility] Last Admin: 06/09/16 10:45 Dose: 100 mls/hr Piperacillin Sod/Tazobactam Sod (Zosyn 2.25gm Ivpb (Pre-Docked)) 50 mls @ 100 mls/hr IVPB Q8H-IV [facility] PRN Reason: Protocol Last Admin: 06/09/16 10:45 Dose: 100 mls/hr Insulin Aspart (Novolog Vial Sliding Scale -) 1 vial SQ ACHS [facility] PRN Reason: Protocol Last Admin: 06/09/16 06:32 Dose: Not Given Insulin Detemir (Levemir Vial) 20 units SQ HS [facility] Last Admin: 06/08/16 21:37 Dose: 20 units Nicotine (Nicoderm Patch -) 14 mg TD DAILY [facility] Last Admin: 06/09/16 10:45 Dose: 14 mg Pantoprazole Sodium (Protonix -) 40 mg PO DAILY [facility] Last Admin: 06/09/16 10:44 Dose: 40 mg Sodium Bicarbonate (Sodium Bicarbonate -) 650 mg PO DAILY [facility] Last Admin: 06/09/16 10:44 Dose: 650 mg Warfarin Sodium (Coumadin -) 5 mg PO DAILY@1800 [facility] Last Admin: 06/08/16 17:10 Dose: 5 mg - Objective Vital Signs: Vital Signs Temperature 98.7 F 06/09/16 06:00 Pulse Rate 76 06/09/16 06:00 Respiratory Rate 20 06/09/16 06:00 Blood Pressure 166/74 06/09/16 06:00 O2 Sat by Pulse Oximetry (%) 98 06/09/16 05:56 Constitutional: Yes: Well Nourished, No Distress, Calm Eyes: Yes: WNL, Conjunctiva Clear, EOM Intact, PERRL HENT: Yes: WNL, Atraumatic, Normocephalic Neck: Yes: WNL, Supple, Trachea Midline Cardiovascular: Yes: Regular Rate and Rhythm, S1, S2. No: Bradycardia, Tachycardia, Pulse Irregular, Bruit, JVD, Gallop, Murmur, Rub, S3, S4, Varicosities Respiratory: Yes: Regular, Diminished, On Nasal O2. No: Rales, Rhonchi, Wheezes Gastrointestinal: Yes: Normal Bowel Sounds, Soft. No: Distention, Tenderness Musculoskeletal: Yes: WNL Extremities: Yes: WNL Edema: No Peripheral Pulses WNL: Yes Peripheral Pulses: Left Doralis Pedis: 2+, Right Dorsalis Pedis: 2+ Integumentary: Yes: WNL Neurological: Yes: Alert, Oriented Psychiatric: Yes: Alert, Oriented Labs: CBC, BMP 06/09/16 05:35 06/09/16 05:35 INR, PTT INR 2.83 (0.82-1.09) H 06/09/16 05:35 - ....Imaging Chest X-ray: Report Reviewed, Image Reviewed EKG: Report Reviewed, Image Reviewed Other: Report Reviewed, Image Reviewed (tele-nsr, psvt, brief Pafib) Problem List - Problems (1) Current smoker Code(s): F17.200 - NICOTINE DEPENDENCE, UNSPECIFIED, UNCOMPLICATED (2) IDDM (insulin dependent diabetes mellitus) Code(s): E11.9 - TYPE 2 DIABETES MELLITUS WITHOUT COMPLICATIONS Z79.4 - LONG-TERM (CURRENT) USE OF INSULIN (3) Intractable headache Code(s): R51 - HEADACHE (4) Paroxysmal atrial fibrillation with RVR Code(s): I48.0 - PAROXYSMAL ATRIAL FIBRILLATION (5) CKD stage 4 due to type 2 diabetes mellitus Code(s): E11.22 - TYPE 2 DIABETES MELLITUS W DIABETIC CHRONIC KIDNEY DISEASE N18.4 - CHRONIC KIDNEY DISEASE, STAGE 4 (SEVERE) (6) COPD (chronic obstructive pulmonary disease) Code(s): J44.9 - CHRONIC OBSTRUCTIVE PULMONARY DISEASE, UNSPECIFIED Qualifiers : COPD type: emphysema Emphysema type: unspecified Qualified Code(s) : J43.9 - Emphysema, unspecified (7) History of DVT (deep vein thrombosis) Code(s): Z86.718 - PERSONAL HISTORY OF OTHER VENOUS THROMBOSIS AND EMBOLISM (8) History of atrial flutter Code(s): Z86.79 - PERSONAL HISTORY OF OTHER DISEASES OF THE CIRCULATORY SYSTEM (9) Hyperlipidemia Code(s): E78.5 - HYPERLIPIDEMIA, UNSPECIFIED (10) Hypertension Code(s): I10 - ESSENTIAL (PRIMARY) HYPERTENSION (11) Peripheral arterial disease Code(s): I73.9 - PERIPHERAL VASCULAR DISEASE, UNSPECIFIED Assessment/Plan 75 year old woman with a history of HTN, HLD, heavy smoking, PAD with claudication, DM II, Atrial flutter s/p ablation years ago, CKD, DVT 2016 tx with course of full AC, depression, chronic fatigue, chronic severe JOHNSON of uncertain etiology, presented to ER with severe headaches and recurrent abscess and incidentally noted to have paroxsymal SVT (likely AFib) with RVR to 150s. Arrhythmia-newly diagnosed Paroxysmal Afib with RVR, with a history of Aflutter s/p ablation with no recorded recurrence -AFib has been mostly suppressed, short break through episodes, mostly NSR past few days -will increase cardizem CD to 360mg daily for further afib suppression and HR control if she does go back into afib -taken off bblocker as outpatient for possible contribution to her severe fatigue -dc heparin, INR therapeutic x 2 days now, goal INR 2-3 -ok to dc tele -plan for additional event monitor as outpatient HTN-above goal -uptitrate cardizem as above -amlodipine stopped as she is on cardizem -no joshua-I/arb or diuretic for now given ADILENE -can start Hydralazine SOB-chronic, likely secondary to smoking and depression, chronic fatigue -possible mild fluid overload secondary to acute on chronic diastolic CHF after receiving IVF -would hold off on diuresis given her ADILENE and allow her fluid status to re- equilibrate on its own -if no improvement can use Lasix prn Headaches -as per medicine Abscess -as per medicine
[2016-06-09] MEDS: hydrALAZINE HCL 10 MG TABLET PO SCH ×2 (13:25→17:29)
--- NOTE | 2016-06-09 14:08 | PN ---
Physical Exam: SUBJECTIVE: Patient seen and examined Pt looks better this morning still c/o of shortness of breath especially after exertion No event on the monitor overnight except for one episode of tachycardia no fever OBJECTIVE: Vital Signs Period Temp Pulse Resp BP Sys/Renee Pulse Ox Last 24 Hr 98.4 F-99.0 F 72-90 20-20 148-194/66-74 95-99 GENERAL: The patient is awake, alert, and fully oriented, in moderate distress. HEAD: Normal with no signs of trauma. NECK: Trachea midline, full range of motion, supple. LUNGS: Breath sounds equal, crackles in b/l bases to auscultation bilaterally, no wheezes HEART: Regular rate and rhythm, S1, S2 with systolic murmur 3/6, rub or gallop. ABDOMEN: Soft, nontender, nondistended, normoactive bowel sounds, no guarding, no rebound, no hepatosplenomegaly, no masses. EXTREMITIES: 2+ pulses, warm, well-perfused, no edema. NEUROLOGICAL: Normal speech, gait not observed. PSYCH: Normal mood, normal affect. SKIN: Warm, dry, normal turgor, Right gluteal abscess s/p I&D, now with small area on induration, wound has closed, no more packing, no redness, no purulent discharge, no odor. Laboratory Results - last 24 hr 06/08/16 06/08/16 06/09/16 17:22 21:33 05:35 WBC 9.8 RBC 3.59 L Hgb 11.0 Hct 33.2 MCV 92.7 MCHC 33.2 RDW 15.2 Plt Count 243 MPV 10.2 INR PTT (Actin FS) Sodium Potassium Chloride Carbon Dioxide Anion Gap BUN Creatinine POC Glucometer 245 199 Random Glucose Calcium 06/09/16 06/09/16 06/09/16 05:35 05:35 05:35 WBC RBC Hgb Hct MCV MCHC RDW Plt Count MPV INR 2.83 H PTT (Actin FS) 90.1 H Sodium 146 H Potassium 4.1 Chloride 116 H Carbon Dioxide 18 L Anion Gap 12 BUN 25 H D Creatinine 2.7 H POC Glucometer Random Glucose 90 Calcium 8.3 L 06/09/16 06/09/16 06:31 11:52 WBC RBC Hgb Hct MCV MCHC RDW Plt Count MPV INR PTT (Actin FS) Sodium Potassium Chloride Carbon Dioxide Anion Gap BUN Creatinine POC Glucometer 95 97 Random Glucose Calcium Active Medications Generic Name Dose Route Start Last Admin Trade Name Freq PRN Reason Stop Dose Admin Acetaminophen 650 mg 06/08/16 11:11 06/08/16 15:03 Tylenol - PO 650 mg Q6H PRN Administration FEVER OR PAIN Aclidinium [place] 1 puff 06/06/16 22:00 06/09/16 10:45 Tudorza - IH 1 puff BID ERMA Administration Albuterol/Ipratropium 1 amp 06/06/16 13:44 06/06/16 22:15 Duoneb - NEB 1 amp Q4H PRN Administration SHORTNESS OF BREATH Budesonide 1 amp 06/06/16 14:45 06/09/16 09:35 Pulmicort 0.5 Mg Nebulizer - NEB Not Given BID ERMA Cholecalciferol 1,000 unit 06/05/16 10:00 06/09/16 10:44 Vitamin D3 - PO 1,000 unit DAILY [facility]MA Administration Diltiazem HCl 10 mg 06/06/16 09:31 06/06/16 12:14 Cardizem Injection - IVPUSH 10 mg Q2H PRN Administration TACHYCARDIA Diltiazem HCl 360 mg 06/10/16 10:00 Cardizem Cd - PO DAILY ERMA Hydralazine HCl 10 mg 06/09/16 12:00 06/09/16 13:25 Apresoline - PO 10 mg Q6HPO ERMA Administration Clindamycin Phosphate 50 mls @ 100 mls/hr 06/05/16 18:00 06/09/16 10:45 Cleocin 600 Mg Premix Ivpb - IVPB 100 mls/hr Q8H-IV [facility]MA Administration Piperacillin Sod/Tazobactam Sod 50 mls @ 100 mls/hr 06/05/16 18:00 06/09/16 10: 45 Zosyn 2.25gm Ivpb (Pre-Docked) IVPB 100 mls/hr Q8H-IV ERMA Administration Protocol Insulin Aspart 1 vial 06/05/16 08:45 06/09/16 12:19 Novolog Vial Sliding Scale - SQ Not Given ACHS [facility] Protocol Insulin Detemir 20 units 06/07/16 22:00 06/08/16 21:37 Levemir Vial SQ 20 units HS ERMA Administration Nicotine 14 mg 06/05/16 10:00 06/09/16 10:45 Nicoderm Patch - TD 14 mg DAILY [facility]MA Administration Pantoprazole Sodium 40 mg 06/05/16 10:00 06/09/16 10:44 Protonix - PO 40 mg DAILY ERMA Administration Sodium Bicarbonate 650 mg 06/08/16 13:45 06/09/16 10:44 Sodium Bicarbonate - PO 650 mg DAILY ERMA Administration Warfarin Sodium 5 mg 06/08/16 18:00 06/08/16 17:10 Coumadin - PO 5 mg DAILY@1800 ERMA Administration CBC, BMP 06/09/16 05:35 06/09/16 05:35 Microbiology 06/05/16 14:30 Abscess Gram Stain - Final 06/05/16 14:30 Abscess Wound Culture - Final Viridans Streptococcus Group Staphylococcus Coagulase Neg 06/05/16 14:30 Abscess Gram Stain - Final 06/04/16 18:00 Urine - Urine Clean Catch Urine Culture - Final NO GROWTH OBTAINED 06/04/16 12:42 Blood - Peripheral Venous Blood Culture - Final NO GROWTH AFTER 5 DAYS INCUBATION 06/04/16 12:42 Blood - Peripheral Venous Blood Culture - Final NO GROWTH AFTER 5 DAYS INCUBATION 06/05/16 14:30 Abscess Wound Culture - Preliminary Pending Organism 06/04/16 12:42 Blood - Peripheral Venous Blood Culture - Preliminary NO GROWTH OBTAINED AFTER 48 HOURS, INCUBATION TO CONTINUE FOR 3 DAYS. 06/04/16 12:42 Blood - Peripheral Venous Blood Culture - Preliminary NO GROWTH OBTAINED AFTER 48 HOURS, INCUBATION TO CONTINUE FOR 3 DAYS. Selected Entries 06/06/16 12:18 Pulse Rate 141 H Laboratory Tests 06/08/16 06/09/16 06/09/16 09:30 05:35 05:35 INR 2.43 H D 2.83 H PTT (Actin FS) 90.1 H ASSESSMENT/PLAN: 75 year old female with pmh of HTN, HPLD, CKD, Anemia, Asthma, Diabetes, Paroxysmal AFIB s/p Ablation presented to the ED complains of headache, pain and cellulitis in the right gluteal region, fatigue. Pt was found to be in rapid AFIB, Hypertensive urgency, with abscess and cellulitis in right gluteal. Sepsis from right Gluteal abscess/cellulitis fever 100.6, tachycardia, leukocytosis on admission Cefazolin and Vancomycin given on admission ID consulted Dr Ashford, started Clindamycin 600mg IV and Zosyn 2.25gm day 5 Surgery consulted Incision and drainage done last week, wound is healing Pending wound culture and sensitivity for antibiotic deescalation Moprhine 1mg Q4h Prn Acute Hypoxic respiratory Failure related to severe COPD Pt is a chronic smoker Pulmonary Dr Cali on the case On Spiriva On Pulmicort O2 keep O2 sat >88% Paroxismal afib s/p ablation Pt came in rapid afib, Converted to Sr after meds, Cardizem IV given in ED 30mg Was switch to cardizem PO 120mg Po cardiology consulted Dr Griffith Cardizem PO increase to 360mg daily by cardiology No event on the monitor [id number] score 5 ON heparin drip, will DC today Coumadin 5mg PO last week, INR has been therapeutic for last 2 days INR in am Headache likely rt to hypertensive urgency r/o Migraine Pt came with BP of 238/97 Now BP has normalized, sheldon more headache Pt seen By neurology PRN Fioricet Diabetes HgbA1c 9.9 BGM ACHS NOvolog sliding scale Levemir 20U qhs JOSE on CKD Stage 4 baseline 2.5-2.8, was 2.9 on admission, now 2.7 renal function are improving no more IV fluid needed Avoid nephrotoxins Dr To on case BMP in am Iron Deficiency Anemia iron supplement Generalized weakness/fatigue May be rt to anemia. May be rt to advance COPD, CKD stage 4, cardiac arrhythmia/ CHF. have to consider infectious, rheumatological causes, immunologic causes. Pt will need further outpatient work up. f/u douglas studies/titers Smoking Cessation Pt is a current smoker Nicotine patch FEN Fluid: none Electrolytes: chemistry in am Nutrition: diabetic/cardiac diet DVT prophylaxis: Coumadin Disposition:DC telemetry. Pending Sensitivity from wound culture. PT eveal/pre and post for possible subacute rehab placement on discharge Visit type - Emergency Visit Emergency Visit: Yes ED Registration Date: 06/04/16 Care time: The patient presented to the Emergency Department on the above date and was hospitalized for further evaluation of their emergent condition. - New Patient This patient is new to me today: Yes - Critical Care Critical Care patient: No - Discharge Referral Referred to [facility] No
[2016-06-09] MEDS: WARFARIN NA 5 MG TABLET (UD) PO SCH (17:29)
--- NOTE | 2016-06-09 21:28 | PN ---
Progress Note, Physician History of Present Illness: stable no complaints dirrhoea buttock feels good - Current Medication List Current Medications: Active Medications Acetaminophen (Tylenol -) 650 mg PO Q6H PRN PRN Reason: FEVER OR PAIN Last Admin: 06/08/16 15:03 Dose: 650 mg Aclidinium [place] (Tudorza -) 1 puff IH BID [facility] Last Admin: 06/09/16 10:45 Dose: 1 puff Albuterol/Ipratropium (Duoneb -) 1 amp NEB Q4H PRN PRN Reason: SHORTNESS OF BREATH Last Admin: 06/06/16 22:15 Dose: 1 amp Budesonide (Pulmicort 0.5 Mg Nebulizer -) 1 amp NEB BID [facility] Last Admin: 06/09/16 09:35 Dose: Not Given Cholecalciferol (Vitamin D3 -) 1,000 unit PO DAILY [facility] Last Admin: 06/09/16 10:44 Dose: 1,000 unit Diltiazem HCl (Cardizem Injection -) 10 mg IVPUSH Q2H PRN PRN Reason: TACHYCARDIA Last Admin: 06/06/16 12:14 Dose: 10 mg Diltiazem HCl (Cardizem Cd -) 360 mg PO DAILY [facility] Hydralazine HCl (Apresoline -) 10 mg PO Q6HPO [facility] Last Admin: 06/09/16 17:29 Dose: 10 mg Clindamycin Phosphate (Cleocin 600 Mg Premix Ivpb -) 50 mls @ 100 mls/hr IVPB Q8H-IV [facility] Last Admin: 06/09/16 19:19 Dose: Not Given Piperacillin Sod/Tazobactam Sod (Zosyn 2.25gm Ivpb (Pre-Docked)) 50 mls @ 100 mls/hr IVPB Q8H-IV [facility] PRN Reason: Protocol Last Admin: 06/09/16 19:19 Dose: Not Given Insulin Aspart (Novolog Vial Sliding Scale -) 1 vial SQ ACHS [facility] PRN Reason: Protocol Last Admin: 06/09/16 17:25 Dose: Not Given Insulin Detemir (Levemir Vial) 20 units SQ HS [facility] Last Admin: 06/08/16 21:37 Dose: 20 units Lactobacillus Acidophilus (Bacid -) 1 tab PO DAILY [facility] Nicotine (Nicoderm Patch -) 14 mg TD DAILY [facility] Last Admin: 06/09/16 10:45 Dose: 14 mg Pantoprazole Sodium (Protonix -) 40 mg PO DAILY [facility] Last Admin: 06/09/16 10:44 Dose: 40 mg Sodium Bicarbonate (Sodium Bicarbonate -) 650 mg PO DAILY [facility] Last Admin: 06/09/16 10:44 Dose: 650 mg Warfarin Sodium (Coumadin -) 5 mg PO DAILY@1800 [facility] Last Admin: 06/09/16 17:29 Dose: 5 mg - Objective Vital Signs: Vital Signs Temperature 98.6 F 06/09/16 17:00 Pulse Rate 78 06/09/16 17:00 Respiratory Rate 20 06/09/16 17:00 Blood Pressure 191/67 06/09/16 17:00 O2 Sat by Pulse Oximetry (%) 95 06/09/16 13:25 Constitutional: Yes: Calm, Mild Distress Cardiovascular: Yes: Regular Rate and Rhythm Respiratory: Yes: Regular, CTA Bilaterally Gastrointestinal: Yes: Normal Bowel Sounds, Soft ...Rectal Exam: Yes: Other (erythema of the buttocks less) Musculoskeletal: Yes: WNL Extremities: Yes: WNL Wound/Incision: Yes: Clean/Dry, Dressing Dry and Intact Neurological: Yes: Alert, Oriented Psychiatric: Yes: Alert, Oriented Labs: CBC, BMP 06/09/16 05:35 06/09/16 05:35 INR, PTT INR 2.83 (0.82-1.09) H 06/09/16 05:35 Assessment/Plan - Problem Paroxysmal atrial fibrillation with RVR Code(s): I48.0 - PAROXYSMAL ATRIAL FIBRILLATION CKD stage 4 due to type 2 diabetes mellitus Code(s): E11.22 - TYPE 2 DIABETES MELLITUS W DIABETIC CHRONIC KIDNEY DISEASE N18.4 - CHRONIC KIDNEY DISEASE, STAGE 4 (SEVERE) Intractable headache Code(s): R51 - HEADACHE Asthma Code(s): J45.909 - UNSPECIFIED ASTHMA, UNCOMPLICATED IDDM (insulin dependent diabetes mellitus) Code(s): E11.9 - TYPE 2 DIABETES MELLITUS WITHOUT COMPLICATIONS 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
[2016-06-09] MEDS: INSULIN DETEMIR 100 UNITS/ML MDV SQ SCH (21:40)
[2016-06-09] MEDS ORDERED: hydrALAZINE HCL 20 MG/ML VIAL IVPUSH ONE (22:47)
[2016-06-09] MEDS: ALBUTEROL SO4 2.5/IPRATROPIUM 0.5 INH SOL 3 ML VIAL.NEB. NEB PRN (23:59)
[2016-06-10] MEDS: hydrALAZINE HCL 10 MG TABLET PO SCH ×2 (00:26→06:13)
[2016-06-10] MEDS ORDERED: diphenhydrAMINE HCL 25 MG CAPSULE (FP) PO ONE (01:21)
[2016-06-10] MEDS: INSULIN SLIDING SCALE (NOVOLOG) 1 VIAL SQ SCH ×4 (06:16→21:51)
[2016-06-10 08:34] LABS: MCH 30.7 pg (25.7-33.7); MEAN CELL VOLUME 93.1 fl (80-96); MEAN PLT VOLUME 9.6 fl (7.5-11.1); PLATELET COUNT 256 K/MM3 (134-434); RDW 15.4 % (11.6-15.6); WHITE BLOOD COUNT 7.7 K/mm3 (4.0-10.0)
[2016-06-10] MEDS ORDERED: amLODIPine BESYLATE 10 MG TABLET (FP) PO SCH (09:00)
--- NOTE | 2016-06-10 09:20 | PN ---
Progress Note, Physician Chief Complaint: seen and examined TELE: NSR, short run PAT; few V-couplets - Current Medication List Current Medications: Active Medications Acetaminophen (Tylenol -) 650 mg PO Q6H PRN PRN Reason: FEVER OR PAIN Last Admin: 06/08/16 15:03 Dose: 650 mg Aclidinium [place] (Tudorza -) 1 puff IH BID [facility] Last Admin: 06/09/16 21:41 Dose: 1 puff Albuterol/Ipratropium (Duoneb -) 1 amp NEB Q4H PRN PRN Reason: SHORTNESS OF BREATH Last Admin: 06/09/16 23:59 Dose: 1 amp Amlodipine Besylate (Norvasc -) 10 mg PO DAILY [facility] Budesonide (Pulmicort 0.5 Mg Nebulizer -) 1 amp NEB BID [facility] Last Admin: 06/09/16 22:30 Dose: Not Given Cholecalciferol (Vitamin D3 -) 1,000 unit PO DAILY [facility] Last Admin: 06/09/16 10:44 Dose: 1,000 unit Diltiazem HCl (Cardizem Injection -) 10 mg IVPUSH Q2H PRN PRN Reason: TACHYCARDIA Last Admin: 06/06/16 12:14 Dose: 10 mg Diltiazem HCl (Cardizem Cd -) 360 mg PO DAILY [facility] Hydralazine HCl (Apresoline -) 25 mg PO Q6HPO [facility] Insulin Aspart (Novolog Vial Sliding Scale -) 1 vial SQ ACHS [facility] PRN Reason: Protocol Last Admin: 06/10/16 06:16 Dose: Not Given Insulin Detemir (Levemir Vial) 20 units SQ HS [facility] Last Admin: 06/09/16 21:40 Dose: 20 units Lactobacillus Acidophilus (Bacid -) 1 tab PO DAILY [facility] Nicotine (Nicoderm Patch -) 14 mg TD DAILY [facility] Last Admin: 06/09/16 10:45 Dose: 14 mg Pantoprazole Sodium (Protonix -) 40 mg PO DAILY [facility] Last Admin: 06/09/16 10:44 Dose: 40 mg Sodium Bicarbonate (Sodium Bicarbonate -) 650 mg PO DAILY [facility] Last Admin: 06/09/16 10:44 Dose: 650 mg Warfarin Sodium (Coumadin -) 5 mg PO DAILY@1800 [facility] Last Admin: 06/09/16 17:29 Dose: 5 mg - Objective Vital Signs: Vital Signs Temperature 97.9 F 06/10/16 06:00 Pulse Rate 80 06/10/16 06:00 Respiratory Rate 18 06/10/16 06:00 Blood Pressure 186/72 06/10/16 06:00 O2 Sat by Pulse Oximetry (%) 95 06/09/16 21:00 Constitutional: Yes: No Distress Cardiovascular: Yes: Regular Rate and Rhythm Respiratory: Yes: Other (decreased breath sounds right base) Gastrointestinal: Yes: Soft Edema: Yes Edema: LLE: 1+, RLE: 1+ Neurological: Yes: Alert Labs: CBC, BMP 06/10/16 06:10 06/09/16 05:35 INR, PTT INR 2.83 (0.82-1.09) H 06/09/16 05:35 Laboratory Tests 06/09/16 06/09/16 06/10/16 05:35 05:35 06:10 WBC 7.7 Hct 34.1 Plt Count 256 INR 2.83 H Sodium 146 H Potassium 4.1 Creatinine 2.7 H 06/10/16 06:10 WBC Hct Plt Count INR Pending Sodium Potassium Creatinine - ....Imaging EKG: Image Reviewed Assessment/Plan 75 year old woman with a history of HTN, HLD, heavy smoking, PAD with claudication, DM II, Atrial flutter s/p ablation years ago, CKD, DVT 2016 tx with course of full AC, depression, chronic fatigue, chronic severe JOHNSON of uncertain etiology, presented to ER with severe headaches and recurrent abscess and incidentally noted to have paroxsymal SVT (likely AFib) with RVR to 150s. Arrhythmia-newly diagnosed Paroxysmal Afib with RVR, with a history of Aflutter s/p ablation with no recorded recurrence -Continue Cardizem CD 360 -taken off bblocker as outpatient for possible contribution to her severe fatigue - goal INR 2-3 -ok to dc tele -plan for additional event monitor as outpatient HTN-above goal -Agree w/ addition of hydralazine -d/c norvasc -no joshua-I/arb or diuretic for now given ADILENE SOB-chronic, likely secondary to smoking and depression, chronic fatigue -possible mild fluid overload secondary to acute on chronic diastolic CHF after receiving IVF -would hold off on diuresis given her ADILENE and allow her fluid status to re- equilibrate on its own -if no improvement can use Lasix prn Headaches -as per medicine Abscess -as per medicine
[2016-06-10] MEDS: BUDESONIDE 0.5 MG/2 ML INH SUSP VIAL NEB SCH ×2 (10:00→22:30)
[2016-06-10 10:23] LABS: INR 2.31 (0.82-1.09); PROTHROMBIN TIME (PATIENT) 25.9 SEC (9.98-11.88)
[2016-06-10 10:29] LABS: CALCIUM 8.6 mg/dL (8.5-10.1); COCKROFT - GAULT 26.9875; CREATININE 2.5 mg/dL (0.55-1.02)
[2016-06-10] MEDS: NICOTINE 14 MG/24 HOURS TOPICAL PATCH TD SCH (10:48)
[2016-06-10] MEDS: SODIUM BICARBONATE 650 MG TABLET PO SCH (10:48)
[2016-06-10] MEDS: hydrALAZINE HCL 25 MG TABLET (FP) PO SCH ×3 (10:48→17:16)
[2016-06-10] MEDS: LACTOBACILLUS ACIDOPHILUS 1 EACH TAB (FP) PO SCH (10:48)
[2016-06-10] MEDS: CHOLECALCIFEROL (VITAMIN D3) 1,000 UNIT TABLET (FP) PO SCH (10:48)
[2016-06-10] MEDS: PANTOPRAZOLE 40 MG TABLET (FP) PO SCH (10:48)
[2016-06-10] MEDS: ACLIDINIUM BROMIDE 400 MCG/INH AERO.POWD IH SCH ×2 (10:49→21:51)
--- NOTE | 2016-06-10 12:06 | PN ---
Progress Note, Physician History of Present Illness: PULMONARY ALERT,STILL DYSPNEIC,+ DRY COUGH - Current Medication List Current Medications: Active Medications Acetaminophen (Tylenol -) 650 mg PO Q6H PRN PRN Reason: FEVER OR PAIN Last Admin: 06/08/16 15:03 Dose: 650 mg Aclidinium [place] (Tudorza -) 1 puff IH BID [facility] Last Admin: 06/10/16 10:49 Dose: 1 puff Albuterol/Ipratropium (Duoneb -) 1 amp NEB Q4H PRN PRN Reason: SHORTNESS OF BREATH Last Admin: 06/09/16 23:59 Dose: 1 amp Budesonide (Pulmicort 0.5 Mg Nebulizer -) 1 amp NEB BID [facility] Last Admin: 06/10/16 10:00 Dose: 1 amp Cholecalciferol (Vitamin D3 -) 1,000 unit PO DAILY [facility] Last Admin: 06/10/16 10:48 Dose: 1,000 unit Diltiazem HCl (Cardizem Injection -) 10 mg IVPUSH Q2H PRN PRN Reason: TACHYCARDIA Last Admin: 06/06/16 12:14 Dose: 10 mg Diltiazem HCl (Cardizem Cd -) 360 mg PO DAILY [facility] Hydralazine HCl (Apresoline -) 25 mg PO Q6HPO [facility] Last Admin: 06/10/16 10:48 Dose: 25 mg Insulin Aspart (Novolog Vial Sliding Scale -) 1 vial SQ ACHS [facility] PRN Reason: Protocol Last Admin: 06/10/16 06:16 Dose: Not Given Insulin Detemir (Levemir Vial) 20 units SQ HS [facility] Last Admin: 06/09/16 21:40 Dose: 20 units Lactobacillus Acidophilus (Bacid -) 1 tab PO DAILY [facility] Last Admin: 06/10/16 10:48 Dose: 1 tab Nicotine (Nicoderm Patch -) 14 mg TD DAILY [facility] Last Admin: 06/10/16 10:48 Dose: 14 mg Pantoprazole Sodium (Protonix -) 40 mg PO DAILY [facility] Last Admin: 06/10/16 10:48 Dose: 40 mg Sodium Bicarbonate (Sodium Bicarbonate -) 650 mg PO DAILY [facility] Last Admin: 06/10/16 10:48 Dose: 650 mg Warfarin Sodium (Coumadin -) 5 mg PO DAILY@1800 [facility] Last Admin: 06/09/16 17:29 Dose: 5 mg - Objective Vital Signs: Vital Signs Temperature 97.9 F 06/10/16 06:00 Pulse Rate 80 06/10/16 06:00 Respiratory Rate 18 06/10/16 06:00 Blood Pressure 186/72 06/10/16 06:00 O2 Sat by Pulse Oximetry (%) 95 06/09/16 21:00 Constitutional: Yes: Well Nourished, Calm Eyes: Yes: WNL HENT: Yes: WNL Neck: Yes: WNL Cardiovascular: Yes: Pulse Irregular, S1, S2 Respiratory: Yes: Diminished, Rhonchi (FEW SCATTERED RHONCHI) Gastrointestinal: Yes: Normal Bowel Sounds, Soft Extremities: Yes: WNL Edema: No Labs: CBC, BMP 06/10/16 06:10 06/10/16 09:48 INR, PTT INR 2.31 (0.82-1.09) H 06/10/16 06:10 Problem List - Problems (1) Anemia Code(s): D64.9 - ANEMIA, UNSPECIFIED (2) Asthma Code(s): J45.909 - UNSPECIFIED ASTHMA, UNCOMPLICATED (4) Current smoker Code(s): F17.200 - NICOTINE DEPENDENCE, UNSPECIFIED, UNCOMPLICATED (5) IDDM (insulin dependent diabetes mellitus) Code(s): E11.9 - TYPE 2 DIABETES MELLITUS WITHOUT COMPLICATIONS 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 OF 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 (6) Paroxysmal atrial fibrillation with RVR Code(s): I48.0 - PAROXYSMAL ATRIAL FIBRILLATION (7) Renal dysfunction Code(s): N28.9 - DISORDER OF KIDNEY AND URETER, UNSPECIFIED (8) CKD stage 4 due to type 2 diabetes mellitus Code(s): E11.22 - TYPE 2 DIABETES MELLITUS W DIABETIC CHRONIC KIDNEY DISEASE N18.4 - CHRONIC KIDNEY DISEASE, STAGE 4 (SEVERE) (9) COPD (chronic obstructive pulmonary disease) Code(s): J44.9 - CHRONIC OBSTRUCTIVE PULMONARY DISEASE, UNSPECIFIED Qualifiers : COPD type: emphysema Emphysema type: unspecified Qualified Code(s) : J43.9 - Emphysema, unspecified (10) Acute on chronic renal insufficiency Code(s): N28.9 - DISORDER OF KIDNEY AND URETER, UNSPECIFIED N18.9 - CHRONIC KIDNEY DISEASE, UNSPECIFIED (11) CAD (coronary artery disease) Code(s): I25.10 - ATHSCL HEART DISEASE OF [place] CORONARY ARTERY W/O ANG PCTRS (12) CHF (congestive heart failure) Code(s): I50.9 - HEART FAILURE, UNSPECIFIED (13) Tobacco abuse Code(s): Z72.0 - TOBACCO USE Assessment/Plan IMP COPD ADMITTED WITH RAPID AF GLUTEAL SKIN INFECTION/FEVER WORSENING RENAL INSUFFICIENCY HTN HPL DIABETES POORLY CONTROLLED SMOKER O2 TO KEEP SAT GREATER THAN 90% BRONCHODILATORS RATE CONTROL ANTICOAGULATION GLYCEMIC CONTROL DEBRIDEMENT NEEDED DR GOULD
--- NOTE | 2016-06-10 12:08 | PN ---
Progress Note (short form) - Note Progress Note: Renal Follow up for JOSE on CKD Pt seen and examined at the bedside continues to have dyspnea with mild exertion Vital Signs Temperature 97.9 F 06/10/16 06:00 Pulse Rate 80 06/10/16 06:00 Respiratory Rate 18 06/10/16 06:00 Blood Pressure 186/72 06/10/16 06:00 O2 Sat by Pulse Oximetry (%) 95 06/09/16 21:00 Intake & Output 06/07/16 06/08/16 06/09/16 06/10/16 23:59 23:59 23:59 23:59 Intake Total 2108 1862 798 340 Output Total 350 Balance 1758 1862 798 340 Gen: Mildly dyspneic CVS: RRR, No M/R Lungs: + crackles at lung bases, no wheeze Abd: soft NT/ND, nO bladder distension Ext: No edema, clubbing or cyanosis CBC, BMP 06/10/16 06:10 06/10/16 09:48 Current Medications Acetaminophen (Tylenol -) 650 mg PO Q6H PRN PRN Reason: FEVER OR PAIN Last Admin: 06/08/16 15:03 Dose: 650 mg Aclidinium [place] (Tudorza -) 1 puff IH BID [facility] Last Admin: 06/10/16 10:49 Dose: 1 puff Albuterol/Ipratropium (Duoneb -) 1 amp NEB Q4H PRN PRN Reason: SHORTNESS OF BREATH Last Admin: 06/09/16 23:59 Dose: 1 amp Budesonide (Pulmicort 0.5 Mg Nebulizer -) 1 amp NEB BID [facility] Last Admin: 06/10/16 10:00 Dose: 1 amp Cholecalciferol (Vitamin D3 -) 1,000 unit PO DAILY [facility] Last Admin: 06/10/16 10:48 Dose: 1,000 unit Diltiazem HCl (Cardizem Injection -) 10 mg IVPUSH Q2H PRN PRN Reason: TACHYCARDIA Last Admin: 06/06/16 12:14 Dose: 10 mg Diltiazem HCl (Cardizem Cd -) 360 mg PO DAILY [facility] Hydralazine HCl (Apresoline -) 25 mg PO Q6HPO [facility] Last Admin: 06/10/16 10:48 Dose: 25 mg Insulin Aspart (Novolog Vial Sliding Scale -) 1 vial SQ ACHS [facility] PRN Reason: Protocol Last Admin: 06/10/16 06:16 Dose: Not Given Insulin Detemir (Levemir Vial) 20 units SQ HS [facility] Last Admin: 06/09/16 21:40 Dose: 20 units Lactobacillus Acidophilus (Bacid -) 1 tab PO DAILY [facility] Last Admin: 06/10/16 10:48 Dose: 1 tab Nicotine (Nicoderm Patch -) 14 mg TD DAILY [facility] Last Admin: 06/10/16 10:48 Dose: 14 mg Pantoprazole Sodium (Protonix -) 40 mg PO DAILY [facility] Last Admin: 06/10/16 10:48 Dose: 40 mg Sodium Bicarbonate (Sodium Bicarbonate -) 650 mg PO DAILY [facility] Last Admin: 06/10/16 10:48 Dose: 650 mg Warfarin Sodium (Coumadin -) 5 mg PO DAILY@1800 [facility] Last Admin: 06/09/16 17:29 Dose: 5 mg A/P 75 year old woman with PMHx of CKD stage 4 (baseline Cr 2.2-2.5) from suspected diabetic nephropathy, hypertension, hypercholesterolemia, asthma, anemia, adult onset insulin dependent diabetes mellitus presented with JANE and found to have infected gluetial abcess and JOSE with BUN/Cr that peaked at 36/3.6, #JOSE on CKD Stage 4 secondary to sepsis/hemodyanic injury Renal function improved and near baseline trend BUN/Cr no acute indication for dialysis #Metabolic Acidosis Contine sodium bicarb 650mg Daily goal bicarb > 22 #Gluetal Abscess Continue Abx as per ID f/u cultures #Hypertension/Hypertensive Urgency on Diltizaem and Hydraalzine no GLENDA/ARB given low GFR Titrate hydralazine to goal bp < 140/90 #DM on Insulin with hyperglycemia continue insulin as needed Thank you Tylor To DO
--- NOTE | 2016-06-10 12:24 | PN ---
Physical Exam: SUBJECTIVE: Patient seen and examined Pt still complain of tiredness, fatigue shortness of breath on exertion no fever or chills no cough no n/v no pain OBJECTIVE: Vital Signs Period Temp Pulse Resp BP Sys/Renee Pulse Ox Last 24 Hr 97.8 F-98.6 F 78-90 18-22 165-198/67-90 95-95 \GENERAL: The patient is awake, alert, and fully oriented, in moderate distress. HEAD: Normal with no signs of trauma. NECK: Trachea midline, full range of motion, supple. LUNGS: Breath sounds equal, crackles in b/l bases to auscultation bilaterally, no wheezes HEART: Regular rate and rhythm, S1, S2 with systolic murmur 3/6, rub or gallop. ABDOMEN: Soft, nontender, nondistended, normoactive bowel sounds, no guarding, no rebound, no hepatosplenomegaly, no masses. EXTREMITIES: 2+ pulses, warm, well-perfused, no edema. NEUROLOGICAL: Normal speech, gait not observed. PSYCH: Normal mood, normal affect. SKIN: Warm, dry, normal turgor, Right gluteal abscess s/p I&D, now with small area on induration, wound has closed, no more packing, no redness, no purulent discharge, no odor. Laboratory Results - last 24 hr 06/08/16 06/09/16 06/09/16 05:35 05:35 21:37 WBC RBC Hgb Hct MCV MCHC RDW Plt Count MPV INR PTT (Actin FS) Sodium Potassium Chloride Carbon Dioxide Anion Gap BUN Creatinine POC Glucometer 247 Random Glucose Calcium Cortisol AM Sample 19.6 Lyme Screen IgG & IgM <0.91 06/10/16 06/10/16 06/10/16 06:10 06:10 06:10 WBC 7.7 RBC 3.67 Hgb 11.3 Hct 34.1 MCV 93.1 MCHC 33.0 RDW 15.4 Plt Count 256 MPV 9.6 INR 2.31 H PTT (Actin FS) 36.1 H D Sodium Potassium Chloride Carbon Dioxide Anion Gap BUN Creatinine POC Glucometer Random Glucose Calcium Cortisol AM Sample Lyme Screen IgG & IgM 06/10/16 06/10/16 06:11 09:48 WBC RBC Hgb Hct MCV MCHC RDW Plt Count MPV INR PTT (Actin FS) Sodium 144 Potassium 4.7 Chloride 113 H Carbon Dioxide 23 D Anion Gap 8 BUN 22 H Creatinine 2.5 H POC Glucometer 119 Random Glucose 94 Calcium 8.6 Cortisol AM Sample Lyme Screen IgG & IgM Active Medications Generic Name Dose Route Start Last Admin Trade Name Freq PRN Reason Stop Dose Admin Acetaminophen 650 mg 06/08/16 11:11 06/08/16 15:03 Tylenol - PO 650 mg Q6H PRN Administration FEVER OR PAIN Aclidinium [place] 1 puff 06/06/16 22:00 06/10/16 10:49 Tudorza - IH 1 puff BID ERMA Administration Albuterol/Ipratropium 1 amp 06/06/16 13:44 06/09/16 23:59 Duoneb - NEB 1 amp Q4H PRN Administration SHORTNESS OF BREATH Budesonide 1 amp 06/06/16 14:45 06/10/16 10:00 Pulmicort 0.5 Mg Nebulizer - NEB 1 amp BID ERMA Administration Cholecalciferol 1,000 unit 06/05/16 10:00 06/10/16 10:48 Vitamin D3 - PO 1,000 unit DAILY ERMA Administration Diltiazem HCl 10 mg 06/06/16 09:31 06/06/16 12:14 Cardizem Injection - IVPUSH 10 mg Q2H PRN Administration TACHYCARDIA Diltiazem HCl 360 mg 06/10/16 10:00 Cardizem Cd - PO DAILY [facility] Hydralazine HCl 25 mg 06/10/16 09:00 06/10/16 10:48 Apresoline - PO 25 mg Q6HPO ERMA Administration Insulin Aspart 1 vial 06/05/16 08:45 06/10/16 06:16 Novolog Vial Sliding Scale - SQ Not Given ACHS [facility] Protocol Insulin Detemir 20 units 06/07/16 22:00 06/09/16 21:40 Levemir Vial SQ 20 units HS ERMA Administration Lactobacillus Acidophilus 1 tab 06/10/16 10:00 06/10/16 10:48 Bacid - PO 1 tab DAILY ERMA Administration Nicotine 14 mg 06/05/16 10:00 06/10/16 10:48 Nicoderm Patch - TD 14 mg DAILY [facility]MA Administration Pantoprazole Sodium 40 mg 06/05/16 10:00 06/10/16 10:48 Protonix - PO 40 mg DAILY ERMA Administration Sodium Bicarbonate 650 mg 06/08/16 13:45 06/10/16 10:48 Sodium Bicarbonate - PO 650 mg DAILY ERMA Administration Warfarin Sodium 5 mg 06/08/16 18:00 06/09/16 17:29 Coumadin - PO 5 mg DAILY@1800 ERMA Administration CBC, BMP 06/10/16 06:10 06/10/16 09:48 Microbiology 06/05/16 14:30 Abscess Gram Stain - Final 06/05/16 14:30 Abscess Wound Culture - Final Viridans Streptococcus Group Staphylococcus Coagulase Neg Bacteroides Vulgatus 06/04/16 18:00 Urine - Urine Clean Catch Urine Culture - Final NO GROWTH OBTAINED 06/04/16 12:42 Blood - Peripheral Venous Blood Culture - Final NO GROWTH AFTER 5 DAYS INCUBATION 06/04/16 12:42 Blood - Peripheral Venous Blood Culture - Final NO GROWTH AFTER 5 DAYS INCUBATION Laboratory Tests 06/08/16 06/09/16 06/10/16 05:35 05:35 06:10 INR 2.31 H Cortisol AM Sample 19.6 Lyme Screen IgG & IgM <0.91 ASSESSMENT/PLAN: 75 year old female with pmh of HTN, HPLD, CKD, Anemia, Asthma, Diabetes, Paroxysmal AFIB s/p Ablation presented to the ED complains of headache, pain and cellulitis in the right gluteal region, fatigue. Pt was found to be in rapid AFIB, Hypertensive urgency, with abscess and cellulitis in right gluteal. Sepsis from right Gluteal abscess/cellulitis fever 100.6, tachycardia, leukocytosis on admission Cefazolin and Vancomycin given on admission ID consulted Dr Ashford, started Clindamycin 600mg IV and Zosyn 2.25gm day 6 Surgery consulted Incision and drainage done last week (06/05/16), wound is healing Pending wound culture and sensitivity for antibiotic deescalation Moprhine 1mg Q4h Prn Acute Hypoxic respiratory Failure related to severe COPD Pt is a chronic smoker Pulmonary Dr Cali on the case On Spiriva On Pulmicort O2 keep O2 sat >88% Paroxismal afib s/p ablation Pt came in rapid afib, Converted to Sr after meds, Cardizem IV given in ED 30mg cardiology consulted Dr Griffith Cardizem PO increase to 360mg daily by cardiology No event on the monitor [id number] score 5 Coumadin 5mg PO daily, INR therapeutic 2.31 INR in am HTN BP was uncontrolled yesterday Cardizem PO increase to 360mg daily Started on Hydralazine 10mg Po q6h yesterday evening Will increase Hydralazine to 25mg Po q6h Headache likely rt to hypertensive urgency r/o Migraine Pt came with BP of 238/97 Now BP has normalized, sheldon more headache Pt seen By neurology PRN Fioricet Diabetes HgbA1c 9.9 BGM ACHS NOvolog sliding scale Levemir 20U qhs JOSE on CKD Stage 4 baseline 2.5-2.8, was 2.9 on admission, now 2.5 renal function are improving no more IV fluid needed Avoid nephrotoxins Dr To on case Iron Deficiency Anemia iron supplement Generalized weakness/fatigue May be rt to anemia. May be rt to advance COPD, CKD stage 4, cardiac arrhythmia/ CHF. Have to consider infectious, rheumatological causes, immunologic causes. tejon titers normal AM cortisol Normal Pt will need further outpatient work up. Smoking Cessation Pt is a current smoker Nicotine patch FEN Fluid: none Electrolytes: chemistry in am Nutrition: diabetic/cardiac diet DVT prophylaxis: Coumadin Disposition:DC telemetry. Pending Sensitivity from wound culture. Visit type - Emergency Visit Emergency Visit: Yes ED Registration Date: 06/04/16 Care time: The patient presented to the Emergency Department on the above date and was hospitalized for further evaluation of their emergent condition. - New Patient This patient is new to me today: Yes - Critical Care Critical Care patient: No - Discharge Referral Referred to [facility] Med P.C.: No
--- NOTE | 2016-06-10 16:53 | PN ---
Teaching Attending Note Name of Resident: Antwon Grace ATTENDING PHYSICIAN STATEMENT I saw and evaluated the patient. I reviewed the resident's note and discussed the case with the resident. I agree with the resident's findings and plan as documented. SUBJECTIVE: Patient complains of shortness of breath with exertion and fatigue. OBJECTIVE: Vital Signs Period Temp Pulse Resp BP Sys/Renee Pulse Ox Last 24 Hr 97.8 F-98.7 F 76-85 18-22 151-198/67-90 95-99 HEART: Irregularly irregular LUNGS: Bibasilar crackles ABDOMEN: Soft, non-tender, non-distended, normal BS EXTREMITIES: No edema ASSESSMENT AND PLAN: This is a 75-year-old woman with a history of atrial flutter, ablation, HTN, DM , hyperlipidemia who presented to the ER and was admitted for sepsis, gluteal abscess, and atrial fib with RVR. 1. Sepsis secondary to gluteal abscess - s/p I&D (06/05) - Completed 5 days of Zosyn, Ancef 2. Atrial fib with RVR - Rate controlled - Continue Cardizem CD, Coumadin 3. Hypertensive urgency - Resolved 4. Hypertension - Continue Cardizem - Hydralazine started 5. Acute kidney injury - Improving 6. Stage 4 CKD 7. COPD - Continue Pulmicort, Tudorza, DuoNeb as needed 8. Anemia, likely secondary to chronic illness - Hemoglobin stable 9. Hypomagnesemia - Resolved 10. DM - Continue Levemir, Novolog sliding scale
[2016-06-10] MEDS ORDERED: INSULIN (NOVOLOG) ASPART 100 UNITS/ML 10ML VIAL ONE (17:04)
[2016-06-10] MEDS: WARFARIN NA 5 MG TABLET (UD) PO SCH (17:16)
--- NOTE | 2016-06-10 17:21 | PN ---
Progress Note, Physician History of Present Illness: patient doing much well no complaints dirrhoea is resolving patient feeling much better - Current Medication List Current Medications: Active Medications Acetaminophen (Tylenol -) 650 mg PO Q6H PRN PRN Reason: FEVER OR PAIN Last Admin: 06/08/16 15:03 Dose: 650 mg Aclidinium [place] (Tudorza -) 1 puff IH BID [facility] Last Admin: 06/10/16 10:49 Dose: 1 puff Albuterol/Ipratropium (Duoneb -) 1 amp NEB Q4H PRN PRN Reason: SHORTNESS OF BREATH Last Admin: 06/09/16 23:59 Dose: 1 amp Budesonide (Pulmicort 0.5 Mg Nebulizer -) 1 amp NEB BID [facility] Last Admin: 06/10/16 10:00 Dose: 1 amp Cholecalciferol (Vitamin D3 -) 1,000 unit PO DAILY [facility] Last Admin: 06/10/16 10:48 Dose: 1,000 unit Diltiazem HCl (Cardizem Injection -) 10 mg IVPUSH Q2H PRN PRN Reason: TACHYCARDIA Last Admin: 06/06/16 12:14 Dose: 10 mg Diltiazem HCl (Cardizem Cd -) 360 mg PO DAILY [facility] Hydralazine HCl (Apresoline -) 25 mg PO Q6HPO [facility] Last Admin: 06/10/16 17:16 Dose: 25 mg Insulin Aspart (Novolog Vial Sliding Scale -) 1 vial SQ ACHS [facility] PRN Reason: Protocol Last Admin: 06/10/16 17:16 Dose: 4 unit Insulin Detemir (Levemir Vial) 20 units SQ HS [facility] Last Admin: 06/09/16 21:40 Dose: 20 units Lactobacillus Acidophilus (Bacid -) 1 tab PO DAILY [facility] Last Admin: 06/10/16 10:48 Dose: 1 tab Nicotine (Nicoderm Patch -) 14 mg TD DAILY [facility] Last Admin: 06/10/16 10:48 Dose: 14 mg Pantoprazole Sodium (Protonix -) 40 mg PO DAILY [facility] Last Admin: 06/10/16 10:48 Dose: 40 mg Sodium Bicarbonate (Sodium Bicarbonate -) 650 mg PO DAILY [facility] Last Admin: 06/10/16 10:48 Dose: 650 mg Warfarin Sodium (Coumadin -) 5 mg PO DAILY@1800 [facility] Last Admin: 06/10/16 17:16 Dose: 5 mg - Objective Vital Signs: Vital Signs Temperature 98.7 F 06/10/16 16:22 Pulse Rate 82 06/10/16 16:22 Respiratory Rate 18 06/10/16 16:22 Blood Pressure 175/72 06/10/16 16:22 O2 Sat by Pulse Oximetry (%) 99 06/10/16 10:00 Constitutional: Yes: No Distress, Calm Cardiovascular: Yes: Regular Rate and Rhythm Respiratory: Yes: Regular, CTA Bilaterally Gastrointestinal: Yes: Normal Bowel Sounds, Soft ...Rectal Exam: Yes: Other (resolved erythema) Musculoskeletal: Yes: WNL Extremities: Yes: WNL Integumentary: Yes: Erythema (resolved) Wound/Incision: Yes: Clean/Dry, Dressing Dry and Intact Neurological: Yes: Alert, Oriented Psychiatric: Yes: Alert, Oriented Labs: CBC, BMP 06/10/16 06:10 06/10/16 09:48 INR, PTT INR 2.31 (0.82-1.09) H 06/10/16 06:10 Assessment/Plan - Problem Paroxysmal atrial fibrillation with RVR Code(s): I48.0 - PAROXYSMAL ATRIAL FIBRILLATION CKD stage 4 due to type 2 diabetes mellitus Code(s): E11.22 - TYPE 2 DIABETES MELLITUS W DIABETIC CHRONIC KIDNEY DISEASE N18.4 - CHRONIC KIDNEY DISEASE, STAGE 4 (SEVERE) Intractable headache Code(s): R51 - HEADACHE Asthma Code(s): J45.909 - UNSPECIFIED ASTHMA, UNCOMPLICATED IDDM (insulin dependent diabetes mellitus) Code(s): E11.9 - TYPE 2 DIABETES MELLITUS WITHOUT COMPLICATIONS Z79.4 - DETENTION (CURRENT) USE OF INSULIN Current smoker Code(s): F17.200 - NICOTINE DEPENDENCE, UNSPECIFIED, UNCOMPLICATED gluteal abscess s/p drainage plan sensitivities noted stable off of abx continue wound care will monitor rest as per primary team
[2016-06-10] MEDS: INSULIN DETEMIR 100 UNITS/ML MDV SQ SCH (21:51)
[2016-06-11] MEDS: hydrALAZINE HCL 25 MG TABLET (FP) PO SCH ×2 (00:39→06:23)
[2016-06-11] MEDS ORDERED: INSULIN (NOVOLOG) ASPART 100 UNITS/ML 10ML VIAL ONE (06:15)
[2016-06-11] MEDS: INSULIN SLIDING SCALE (NOVOLOG) 1 VIAL SQ SCH ×4 (06:23→21:48)
--- NOTE | 2016-06-11 08:24 | DS ---
Physical Exam: SUBJECTIVE: Patient seen and examined OBJECTIVE: Vital Signs Period Temp Pulse Resp BP Sys/Renee Pulse Ox Last 24 Hr 98.1 F-98.9 F 76-85 16-20 151-192/70-72 99-99 PHYSICAL EXAM GENERAL: The patient is awake, alert, and fully oriented, in no acute distress. HEAD: Normal with no signs of trauma. EYES: PERRL, extraocular movements intact, sclera anicteric, conjunctiva clear. ENT: Ears normal, nares patent, oropharynx clear without exudates, moist mucous membranes. NECK: Trachea midline, full range of motion, supple. LUNGS: Breath sounds equal, clear to auscultation bilaterally, no wheezes, no crackles, no accessory muscle use. HEART: Regular rate and rhythm, S1, S2 without murmur, rub or gallop. ABDOMEN: Soft, nontender, nondistended, normoactive bowel sounds, no guarding, no rebound, no hepatosplenomegaly, no masses. EXTREMITIES: 2+ pulses, warm, well-perfused, no edema. NEUROLOGICAL: Cranial nerves II through XII grossly intact. Normal speech, gait not observed. PSYCH: Normal mood, normal affect. SKIN: Warm, dry, normal turgor, no rashes or lesions noted. LABS Laboratory Results - last 24 hr 06/10/16 06/10/16 06/10/16 06:10 06:10 06:10 WBC 7.7 RBC 3.67 Hgb 11.3 Hct 34.1 MCV 93.1 MCHC 33.0 RDW 15.4 Plt Count 256 MPV 9.6 INR 2.31 H PTT (Actin FS) 36.1 H D Sodium Potassium Chloride Carbon Dioxide Anion Gap BUN Creatinine POC Glucometer Random Glucose Calcium 06/10/16 06/10/16 06/10/16 09:48 15:33 21:42 WBC RBC Hgb Hct MCV MCHC RDW Plt Count MPV INR PTT (Actin FS) Sodium 144 Potassium 4.7 Chloride 113 H Carbon Dioxide 23 D Anion Gap 8 BUN 22 H Creatinine 2.5 H POC Glucometer 232 126 Random Glucose 94 Calcium 8.6 06/11/16 06:20 WBC RBC Hgb Hct MCV MCHC RDW Plt Count MPV INR PTT (Actin FS) Sodium Potassium Chloride Carbon Dioxide Anion Gap BUN Creatinine POC Glucometer 111 Random Glucose Calcium Microbiology 06/05/16 14:30 Abscess Gram Stain - Final 06/05/16 14:30 Abscess Wound Culture - Final Viridans Streptococcus Group Staphylococcus Coagulase Neg Bacteroides Vulgatus 06/04/16 18:00 Urine - Urine Clean Catch Urine Culture - Final NO GROWTH OBTAINED 06/04/16 12:42 Blood - Peripheral Venous Blood Culture - Final NO GROWTH AFTER 5 DAYS INCUBATION 06/04/16 12:42 Blood - Peripheral Venous Blood Culture - Final NO GROWTH AFTER 5 DAYS INCUBATION HOSPITAL COURSE: Date of Admission:06/04/16 75 y/o F w/PMH of HTN, HLD, asthma, anemia, IDDM, CKD, anxiety, hx of afib (s/p ablation) presents to ER for c/o JANE. JANE started 3 days ago and is "50/10" in intensity. JANE started as a pounding JANE behind L ear and now is a constant pain behind left ear. Pt states the headache has remained the same over the past 3 days with no aggravating or alleviating factors. She took tylenol but it did not help. She had a similar headache in the past when she had a genito/gluteal abscess approximately 1 year ago. At that time she went to [facility] and had I& D for abscess and was treated with IV abx for approx 1 week. At this time pt also has an abscess in gluteal region that she noticed forming 3 days ago. She has had chills over the last few days. Today she had her BGM checked at home and was in the 400s. Pt states she has also felt fatigued and SOB even at rest chronically. At this time she feels her breathing is at baseline. She states she has seen multiple doctors but the etiology of her chronic fatigue and SOB are unknown. She denies palpitations, CP, abd pain, N/V, fevers, diarrhea, blood in stool, vision changes, ringing in ears, dysuria, or focal weakness. ER course was notable for: (1) cardizem po 30 mg, cardizem iv 20 + 10, cardizem drip, lopressor iv 5mg x3, cefazolin (2) EKG, Head CT, CXR, Abd/pelvis CT (3) diluadid, reglan, zofran, morphine 75 year old female with pmh of HTN, HPLD, CKD, Anemia, Asthma, Diabetes, Paroxysmal AFIB s/p Ablation presented to the ED complains of headache, pain and cellulitis in the right gluteal region, fatigue. Pt was found to be in rapid AFIB, Hypertensive urgency, with abscess and cellulitis in right gluteal. Patient had a fever of 100.6, tachycardia, leukocytosis on admission. A diagnosis of Sepsis from right Gluteal abscess/cellulitis was made. Cefazolin and Vancomycin given on admission. ID consulted Dr Ashford, started Clindamycin 600mg IV and Zosyn 2.25gm 7 days completed. Surgery was consulted and performed Incision and drainage last week (06/05/16). Now, the wound is almost healed. Pt is a chronic smoker, has been non complaint with her inhalers for several months now. Pulmonary Dr Dean was consulted> Pt was started on Spiriva and Pulmicort inhalers, with PRN O2 to keep O2 sat >88%. Pt will constinue the inhalers at home. however pt did now qualify for home O2 because she had multiple normal pre and Post. Pt came in rapid afib 140's 150's, Pt was converted to Sinus Rhythm Cardizem IV 30mg given in ED. Cardiology was consulted , Dr Griffith. Patient was started on Cardizem PO which was later increased 360mg daily by cardiology. Heart rate has been controlled since then. Pt [id number] score 5, Pt was started on heparin drip in ED and was bridge to Coumadin. INR therapeutic 2.05, Patient will be discharged with Coumadin 6mg PO daily, with INR level next week. Pateint BP was uncontrolled, now it is slightly above goal but acceptable on Cardizem 360mg daily and Hydralazine 50mg PO q6h. Further management as outpatient by PCP, cart driver and pellet press operator. Patient has a headache which was likely rt to hypertensive urgency r/o Migraine. Pt came with BP of 238/97, Now BP has normalized, Patient has no more headache. Pt was seen By neurology, Dr Colmenares who ordered PRN Fioricet for headache. Patient had a HgbA1c 9.9. Patient glucose was controlled with Blood Glucose Monitoring ACHS with Novolog sliding scale and Levemir 20U qhs Pt had JOSE on CKD Stage 4, baseline Cr 2.5-2.8, was 3.6 during this admission now 2.4. renal function are improved with IV fluid needed and avoiding nephrotoxins. Dr To was on the case. Pt to continue following him as outpatient. patient has Iron Deficiency Anemia, she was placed on iron supplement. Pt has Generalized weakness/fatigue for over a year May be rt to anemia, May be rt to advance COPD , CKD stage 4, cardiac arrhythmia/CHF. Have to consider infectious, rheumatological causes, immunologic causes. But also has to consider depression especially in the setting of multiple episode of crying and sadness during the admission. [place] titers normal, AM cortisol Normal, cardiology, pulmonary and cart driver were all on the case and optimized the patient as much as possible. Will start Lexapro 10mg PO daily. Consider psychiatry follow up as outpatient. Consider further outpatient work up. Pt is an active smoker, was on Nicotine patch during admission, recommends smoking cessation. Date of Discharge: 06/11/16 Minutes to complete discharge: 45 Discharge Summary Reason For Visit: MIGRAINE HEADACHE, PAROXMYSMAL ATRIAL FIBRILLATION Current Active Problems Anemia (Acute) Asthma (Acute) Cellulitis and abscess of buttock (Acute) Current smoker (Acute) Diastolic CHF (Acute) IDDM (insulin dependent diabetes mellitus) (Acute) Intractable headache (Acute) Migraine headache (Acute) Paroxysmal atrial fibrillation with RVR (Acute) Renal dysfunction (Acute) CKD stage 4 due to type 2 diabetes mellitus (Chronic) COPD (chronic obstructive pulmonary disease) (Chronic) Gastroesophageal reflux disease (Chronic) Gastroparesis diabeticorum (Chronic) Hiatal hernia without gangrene and obstruction (Chronic) Condition: Stable - Instructions Diet, Activity, Other Instructions: Discharge Home Resume home activity Diabetic Diet Medication as ordered Follow up with Pulmonary Dr Dean within1-2 weeks Follow up with cardiology Dr griffith within 1-2 week s Follow Up with Dr To, cart driver within 1-2 weeks Follow Up with Primary care physician within 1 week Referrals: Valentin Dean MD [Staff Physician] - José Miguel Griffith MD [Staff Physician] - Myesha Khan MD [Primary Care Provider] - Tylor To MD [Staff Physician] - Disposition: HOME - Home Medications Comprehensive Discharge Medication List: Ambulatory Orders Amlodipine Besylate [Norvasc -] 10 mg PO DAILY 07/30/15 Aspirin [ASA -] 81 mg PO DAILY 07/30/15 Cholecalciferol (Vitamin D3) [Vitamin D3] 1,000 unit PO DAILY #30 tab.chew 08/01 Dexlansoprazole [Dexilant] 30 mg PO DAILY #30 08/02/15 Insulin Sliding Scale [Novolog Vial Sliding Scale -] 1 vial SQ ACHS units 08/01 Insulin (Levemir) [Levemir Flexpen -] 15 units SQ HS 06/05/16 This patient is new to me today: Yes Emergency Visit: Yes ED Registration Date: 06/04/16 Care time: The patient presented to the Emergency Department on the above date and was hospitalized for further evaluation of their emergent condition. Critical Care patient: No - Discharge Referral Referred to [facility] Med P.C.: No
--- NOTE | 2016-06-11 08:35 | PN ---
Progress Note, Physician Chief Complaint: seen and examined, no distress TELE: NSR, APCs - Current Medication List Current Medications: Active Medications Acetaminophen (Tylenol -) 650 mg PO Q6H PRN PRN Reason: FEVER OR PAIN Last Admin: 06/08/16 15:03 Dose: 650 mg Aclidinium [place] (Tudorza -) 1 puff IH BID [facility] Last Admin: 06/10/16 21:51 Dose: 1 puff Albuterol/Ipratropium (Duoneb -) 1 amp NEB Q4H PRN PRN Reason: SHORTNESS OF BREATH Last Admin: 06/09/16 23:59 Dose: 1 amp Budesonide (Pulmicort 0.5 Mg Nebulizer -) 1 amp NEB BID [facility] Last Admin: 06/10/16 22:30 Dose: Not Given Cholecalciferol (Vitamin D3 -) 1,000 unit PO DAILY [facility] Last Admin: 06/10/16 10:48 Dose: 1,000 unit Diltiazem HCl (Cardizem Injection -) 10 mg IVPUSH Q2H PRN PRN Reason: TACHYCARDIA Last Admin: 06/06/16 12:14 Dose: 10 mg Diltiazem HCl (Cardizem Cd -) 360 mg PO DAILY [facility] Hydralazine HCl (Apresoline -) 25 mg PO Q6HPO [facility] Last Admin: 06/11/16 06:23 Dose: 25 mg Insulin Aspart (Novolog Vial Sliding Scale -) 1 vial SQ ACHS [facility] PRN Reason: Protocol Last Admin: 06/11/16 06:23 Dose: Not Given Insulin Detemir (Levemir Vial) 20 units SQ HS [facility] Last Admin: 06/10/16 21:51 Dose: 20 units Lactobacillus Acidophilus (Bacid -) 1 tab PO DAILY [facility] Last Admin: 06/10/16 10:48 Dose: 1 tab Nicotine (Nicoderm Patch -) 14 mg TD DAILY [facility] Last Admin: 06/10/16 10:48 Dose: 14 mg Pantoprazole Sodium (Protonix -) 40 mg PO DAILY [facility] Last Admin: 06/10/16 10:48 Dose: 40 mg Sodium Bicarbonate (Sodium Bicarbonate -) 650 mg PO DAILY [facility] Last Admin: 06/10/16 10:48 Dose: 650 mg Warfarin Sodium (Coumadin -) 5 mg PO DAILY@1800 [facility] Last Admin: 04/11/17 17:16 Dose: 5 mg - Objective Vital Signs: Vital Signs Temperature 98.5 F 06/11/16 06:00 Pulse Rate 80 06/11/16 06:00 Respiratory Rate 16 06/11/16 06:00 Blood Pressure 160/70 06/11/16 06:00 O2 Sat by Pulse Oximetry (%) 99 06/10/16 21:00 Constitutional: Yes: No Distress Cardiovascular: Yes: Regular Rate and Rhythm Respiratory: Yes: Other (slight decreased breath sounds at bases, b/l) Gastrointestinal: Yes: Soft (non-tender) Edema: No Neurological: Yes: Alert, Oriented Labs: CBC, BMP 06/10/16 06:10 06/10/16 09:48 INR, PTT INR 2.31 (0.82-1.09) H 06/10/16 06:10 - ....Imaging EKG: Image Reviewed Assessment/Plan Assessment/Plan 75 year old woman with a history of HTN, HLD, heavy smoking, PAD with claudication, DM II, Atrial flutter s/p ablation years ago, CKD, DVT 2016 tx with course of full AC, depression, chronic fatigue, chronic severe JOHNSON of uncertain etiology, presented to ER with severe headaches and recurrent abscess and incidentally noted to have paroxsymal SVT (likely AFib) with RVR to 150s. Arrhythmia-newly diagnosed Paroxysmal Afib with RVR, with a history of Aflutter s/p ablation with no recorded recurrence -Continue Cardizem CD 360 -intolerant of beta blockers (fatigue) - goal INR 2-3 -ok to dc tele -plan for additional event monitor as outpatient HTN-above goal at times, but improved with addition of hydralazine -d/c norvasc -no joshua-I/arb or diuretic for now given ADILENE
--- NOTE | 2016-06-11 08:59 | PN ---
Progress Note, Physician - Current Medication List Current Medications: Active Medications Acetaminophen (Tylenol -) 650 mg PO Q6H PRN PRN Reason: FEVER OR PAIN Last Admin: 06/08/16 15:03 Dose: 650 mg Aclidinium [place] (Tudorza -) 1 puff IH BID [facility] Last Admin: 06/10/16 21:51 Dose: 1 puff Albuterol/Ipratropium (Duoneb -) 1 amp NEB Q4H PRN PRN Reason: SHORTNESS OF BREATH Last Admin: 06/09/16 23:59 Dose: 1 amp Budesonide (Pulmicort 0.5 Mg Nebulizer -) 1 amp NEB BID [facility] Last Admin: 06/10/16 22:30 Dose: Not Given Cholecalciferol (Vitamin D3 -) 1,000 unit PO DAILY [facility] Last Admin: 06/10/16 10:48 Dose: 1,000 unit Diltiazem HCl (Cardizem Injection -) 10 mg IVPUSH Q2H PRN PRN Reason: TACHYCARDIA Last Admin: 06/06/16 12:14 Dose: 10 mg Diltiazem HCl (Cardizem Cd -) 360 mg PO DAILY [facility] Hydralazine HCl (Apresoline -) 25 mg PO Q6HPO [facility] Last Admin: 06/11/16 06:23 Dose: 25 mg Insulin Aspart (Novolog Vial Sliding Scale -) 1 vial SQ ACHS [facility] PRN Reason: Protocol Last Admin: 06/11/16 06:23 Dose: Not Given Insulin Detemir (Levemir Vial) 20 units SQ HS [facility] Last Admin: 06/10/16 21:51 Dose: 20 units Lactobacillus Acidophilus (Bacid -) 1 tab PO DAILY [facility] Last Admin: 06/10/16 10:48 Dose: 1 tab Nicotine (Nicoderm Patch -) 14 mg TD DAILY [facility] Last Admin: 06/10/16 10:48 Dose: 14 mg Pantoprazole Sodium (Protonix -) 40 mg PO DAILY [facility] Last Admin: 06/10/16 10:48 Dose: 40 mg Sodium Bicarbonate (Sodium Bicarbonate -) 650 mg PO DAILY [facility] Last Admin: 06/10/16 10:48 Dose: 650 mg Warfarin Sodium (Coumadin -) 5 mg PO DAILY@1800 [facility] Last Admin: 06/10/16 17:16 Dose: 5 mg - Objective Vital Signs: Vital Signs Temperature 98.5 F 06/11/16 06:00 Pulse Rate 80 06/11/16 06:00 Respiratory Rate 16 06/11/16 06:00 Blood Pressure 160/70 06/11/16 06:00 O2 Sat by Pulse Oximetry (%) 99 06/10/16 21:00 Labs: CBC, BMP 06/10/16 06:10 06/10/16 09:48 INR, PTT INR 2.31 (0.82-1.09) H 06/10/16 06:10 Laboratory Tests 06/10/16 06/10/16 06/10/16 06:10 06:10 09:48 WBC 7.7 Hgb 11.3 Plt Count 256 INR 2.31 H Potassium 4.7 BUN 22 H Creatinine 2.5 H 06/11/16 08:10 WBC Hgb Plt Count INR Pending Potassium BUN Creatinine
[2016-06-11 09:22] LABS: INR 1.95 (0.82-1.09); PROTHROMBIN TIME (PATIENT) 21.7 SEC (9.98-11.88)
[2016-06-11] MEDS: BUDESONIDE 0.5 MG/2 ML INH SUSP VIAL NEB SCH ×2 (10:26→22:42)
[2016-06-11] MEDS: CHOLECALCIFEROL (VITAMIN D3) 1,000 UNIT TABLET (FP) PO SCH (10:30)
[2016-06-11] MEDS: LACTOBACILLUS ACIDOPHILUS 1 EACH TAB (FP) PO SCH (10:30)
[2016-06-11] MEDS: SODIUM BICARBONATE 650 MG TABLET PO SCH (10:33)
[2016-06-11] MEDS: PANTOPRAZOLE 40 MG TABLET (FP) PO SCH (10:33)
[2016-06-11] MEDS: NICOTINE 14 MG/24 HOURS TOPICAL PATCH TD SCH (10:34)
[2016-06-11 11:28] LABS: CALCIUM 8.3 mg/dL (8.5-10.1); COCKROFT - GAULT 28.1095; CREATININE 2.4 mg/dL (0.55-1.02)
--- NOTE | 2016-06-11 12:32 | PN ---
Progress Note, Physician History of Present Illness: PULMONARY AWAKE,DEPRESSED,-RESP DISTRESS - Current Medication List Current Medications: Active Medications Acetaminophen (Tylenol -) 650 mg PO Q6H PRN PRN Reason: FEVER OR PAIN Last Admin: 06/08/16 15:03 Dose: 650 mg Aclidinium [place] (Tudorza -) 1 puff IH BID [facility] Last Admin: 06/10/16 21:51 Dose: 1 puff Albuterol/Ipratropium (Duoneb -) 1 amp NEB Q4H PRN PRN Reason: SHORTNESS OF BREATH Last Admin: 06/09/16 23:59 Dose: 1 amp Budesonide (Pulmicort 0.5 Mg Nebulizer -) 1 amp NEB BID [facility] Last Admin: 06/11/16 10:26 Dose: 1 amp Cholecalciferol (Vitamin D3 -) 1,000 unit PO DAILY [facility] Last Admin: 06/11/16 10:30 Dose: 1,000 unit Diltiazem HCl (Cardizem Injection -) 10 mg IVPUSH Q2H PRN PRN Reason: TACHYCARDIA Last Admin: 06/06/16 12:14 Dose: 10 mg Diltiazem HCl (Cardizem Cd -) 360 mg PO DAILY [facility] Last Admin: 06/11/16 10:30 Dose: 360 mg Hydralazine HCl (Apresoline -) 25 mg PO Q6HPO [facility] Last Admin: 06/11/16 06:23 Dose: 25 mg Insulin Aspart (Novolog Vial Sliding Scale -) 1 vial SQ ACHS [facility] PRN Reason: Protocol Last Admin: 06/11/16 06:23 Dose: Not Given Insulin Detemir (Levemir Vial) 20 units SQ HS [facility] Last Admin: 06/10/16 21:51 Dose: 20 units Lactobacillus Acidophilus (Bacid -) 1 tab PO DAILY [facility] Last Admin: 06/11/16 10:30 Dose: 1 tab Nicotine (Nicoderm Patch -) 14 mg TD DAILY [facility] Last Admin: 06/11/16 10:34 Dose: 14 mg Pantoprazole Sodium (Protonix -) 40 mg PO DAILY [facility] Last Admin: 06/11/16 10:33 Dose: 40 mg Sodium Bicarbonate (Sodium Bicarbonate -) 650 mg PO DAILY [facility] Last Admin: 06/11/16 10:33 Dose: 650 mg Warfarin Sodium (Coumadin -) 5 mg PO DAILY@1800 [facility] Last Admin: 04/11/17 17:16 Dose: 5 mg - Objective Vital Signs: Vital Signs Temperature 98.5 F 06/11/16 06:00 Pulse Rate 69 06/11/16 09:43 Respiratory Rate 16 06/11/16 06:00 Blood Pressure 160/70 06/11/16 06:00 O2 Sat by Pulse Oximetry (%) 98 06/11/16 09:43 Constitutional: Yes: Well Nourished, Calm Eyes: Yes: WNL HENT: Yes: WNL Neck: Yes: WNL Cardiovascular: Yes: Regular Rate and Rhythm, S1, S2 Respiratory: Yes: Diminished Gastrointestinal: Yes: Normal Bowel Sounds, Soft Extremities: Yes: WNL Edema: Yes Labs: CBC, BMP 06/10/16 06:10 06/11/16 08:10 INR, PTT INR 1.95 (0.82-1.09) H 06/11/16 08:10 Problem List - Problems (1) Anemia Code(s): D64.9 - ANEMIA, UNSPECIFIED (2) Asthma Code(s): J45.909 - UNSPECIFIED ASTHMA, UNCOMPLICATED (4) Current smoker Code(s): F17.200 - NICOTINE DEPENDENCE, UNSPECIFIED, UNCOMPLICATED (5) IDDM (insulin dependent diabetes mellitus) Code(s): E11.9 - TYPE 2 DIABETES MELLITUS WITHOUT COMPLICATIONS Z79.4 - C[employer]ER [employer]IONS TEAMMATE (CURRENT) USE OF INSULIN (6) Paroxysmal atrial fibrillation with RVR Code(s): I48.0 - PAROXYSMAL ATRIAL FIBRILLATION (7) Renal dysfunction Code(s): N28.9 - DISORDER OF KIDNEY AND URETER, UNSPECIFIED (8) CKD stage 4 due to type 2 diabetes mellitus Code(s): E11.22 - TYPE 2 DIABETES MELLITUS W DIABETIC CHRONIC KIDNEY DISEASE N18.4 - CHRONIC KIDNEY DISEASE, STAGE 4 (SEVERE) (9) COPD (chronic obstructive pulmonary disease) Code(s): J44.9 - CHRONIC OBSTRUCTIVE PULMONARY DISEASE, UNSPECIFIED Qualifiers : COPD type: emphysema Emphysema type: unspecified Qualified Code(s) : J43.9 - Emphysema, unspecified (10) Acute on chronic renal insufficiency Code(s): N28.9 - DISORDER OF KIDNEY AND URETER, UNSPECIFIED N18.9 - CHRONIC KIDNEY DISEASE, UNSPECIFIED (11) CAD (coronary artery disease) Code(s): I25.10 - ATHSCL HEART DISEASE OF THREE AFFILIATED CORONARY ARTERY W/O ANG PCTRS (12) CHF (congestive heart failure) Code(s): I50.9 - HEART FAILURE, UNSPECIFIED (13) Tobacco abuse Code(s): Z72.0 - TOBACCO USE Assessment/Plan IMP COPD ADMITTED WITH RAPID AF GLUTEAL SKIN INFECTION/FEVER WORSENING RENAL INSUFFICIENCY HTN HPL DIABETES POORLY CONTROLLED SMOKER O2 TO KEEP SAT GREATER THAN 90% BRONCHODILATORS RATE CONTROL ANTICOAGULATION GLYCEMIC CONTROL DR GOULD
--- NOTE | 2016-06-11 13:06 | PN ---
Progress Note (short form) - Note Progress Note: Renal Follow up for JOSE on CKD Pt seen and examined at the bedside pt is very depressed because of clinical status has sob that is persisting no chest pain no N/V/D Vital Signs Temperature 98.5 F 06/11/16 06:00 Pulse Rate 69 06/11/16 09:43 Respiratory Rate 16 06/11/16 06:00 Blood Pressure 160/70 06/11/16 06:00 O2 Sat by Pulse Oximetry (%) 98 06/11/16 09:43 Intake & Output 06/08/16 06/09/16 06/10/16 06/11/16 23:59 23:59 23:59 23:59 Intake Total 1862 798 900 200 Balance 1862 798 900 200 Gen: Mildly dyspneic CVS: RRR, No M/R Lungs: + crackles at lung bases, no wheeze Abd: soft NT/ND, nO bladder distension Ext: No edema, clubbing or cyanosis CBC, BMP 06/10/16 06:10 06/11/16 08:10 Laboratory Tests 06/11/16 08:10 Calcium 8.3 L Current Medications Acetaminophen (Tylenol -) 650 mg PO Q6H PRN PRN Reason: FEVER OR PAIN Last Admin: 06/08/16 15:03 Dose: 650 mg Aclidinium [place] (Tudorza -) 1 puff IH BID [facility] Last Admin: 06/10/16 21:51 Dose: 1 puff Albuterol/Ipratropium (Duoneb -) 1 amp NEB Q4H PRN PRN Reason: SHORTNESS OF BREATH Last Admin: 06/09/16 23:59 Dose: 1 amp Budesonide (Pulmicort 0.5 Mg Nebulizer -) 1 amp NEB BID [facility] Last Admin: 06/11/16 10:26 Dose: 1 amp Cholecalciferol (Vitamin D3 -) 1,000 unit PO DAILY [facility] Last Admin: 06/11/16 10:30 Dose: 1,000 unit Diltiazem HCl (Cardizem Injection -) 10 mg IVPUSH Q2H PRN PRN Reason: TACHYCARDIA Last Admin: 06/06/16 12:14 Dose: 10 mg Diltiazem HCl (Cardizem Cd -) 360 mg PO DAILY [facility] Last Admin: 06/11/16 10:30 Dose: 360 mg Hydralazine HCl (Apresoline -) 50 mg PO Q6HPO [facility] Insulin Aspart (Novolog Vial Sliding Scale -) 1 vial SQ [facility] PRN Reason: Protocol Last Admin: 06/11/16 12:45 Dose: Not Given Insulin Detemir (Levemir Vial) 20 units SQ HS [facility] Last Admin: 06/10/16 21:51 Dose: 20 units Lactobacillus Acidophilus (Bacid -) 1 tab PO DAILY [facility] Last Admin: 06/11/16 10:30 Dose: 1 tab Nicotine (Nicoderm Patch -) 14 mg TD DAILY [facility] Last Admin: 06/11/16 10:34 Dose: 14 mg Pantoprazole Sodium (Protonix -) 40 mg PO DAILY [facility] Last Admin: 06/11/16 10:33 Dose: 40 mg Sodium Bicarbonate (Sodium Bicarbonate -) 650 mg PO DAILY [facility] Last Admin: 06/11/16 10:33 Dose: 650 mg Warfarin Sodium (Coumadin -) 5 mg PO DAILY@1800 [facility] Last Admin: 06/10/16 17:16 Dose: 5 mg A/P 75 year old woman with PMHx of CKD stage 4 (baseline Cr 2.2-2.5) from suspected diabetic nephropathy, hypertension, hypercholesterolemia, asthma, anemia, adult onset insulin dependent diabetes mellitus presented with JANE and found to have infected gluetial abcess and JOSE with BUN/Cr that peaked at 36/3.6, #JOSE on CKD Stage 4 secondary to sepsis/hemodynamic injury renal function now stable good urine output #Metabolic Acidosis Continue sodium bicarb 650mg Daily goal bicarb > 22 #Gluetal Abscess Continue Abx as per ID f/u cultures #Hypertension/Hypertensive Urgency on Diltizaem and Hydraalzine no GLENDA/ARB given low GFR Titrate hydralazine to goal bp < 140/90 (dose increased to 50mg BID) #DM on Insulin with hyperglycemia continue insulin as needed Thank you Tylor To DO
--- NOTE | 2016-06-11 13:24 | PN ---
Progress Note, Physician History of Present Illness: patient doing much well no issues some pain at operated site - Current Medication List Current Medications: Active Medications Acetaminophen (Tylenol -) 650 mg PO Q6H PRN PRN Reason: FEVER OR PAIN Last Admin: 06/08/16 15:03 Dose: 650 mg Aclidinium [place] (Tudorza -) 1 puff IH BID [facility] Last Admin: 06/10/16 21:51 Dose: 1 puff Albuterol/Ipratropium (Duoneb -) 1 amp NEB Q4H PRN PRN Reason: SHORTNESS OF BREATH Last Admin: 06/09/16 23:59 Dose: 1 amp Budesonide (Pulmicort 0.5 Mg Nebulizer -) 1 amp NEB BID [facility] Last Admin: 06/11/16 10:26 Dose: 1 amp Cholecalciferol (Vitamin D3 -) 1,000 unit PO DAILY [facility] Last Admin: 06/11/16 10:30 Dose: 1,000 unit Diltiazem HCl (Cardizem Injection -) 10 mg IVPUSH Q2H PRN PRN Reason: TACHYCARDIA Last Admin: 06/06/16 12:14 Dose: 10 mg Diltiazem HCl (Cardizem Cd -) 360 mg PO DAILY [facility] Last Admin: 06/11/16 10:30 Dose: 360 mg Hydralazine HCl (Apresoline -) 50 mg PO Q6HPO [facility] Insulin Aspart (Novolog Vial Sliding Scale -) 1 vial SQ ACHS [facility] PRN Reason: Protocol Last Admin: 06/11/16 12:45 Dose: Not Given Insulin Detemir (Levemir Vial) 20 units SQ HS [facility] Last Admin: 06/10/16 21:51 Dose: 20 units Lactobacillus Acidophilus (Bacid -) 1 tab PO DAILY [facility] Last Admin: 06/11/16 10:30 Dose: 1 tab Nicotine (Nicoderm Patch -) 14 mg TD DAILY [facility] Last Admin: 06/11/16 10:34 Dose: 14 mg Pantoprazole Sodium (Protonix -) 40 mg PO DAILY [facility] Last Admin: 06/11/16 10:33 Dose: 40 mg Sodium Bicarbonate (Sodium Bicarbonate -) 650 mg PO DAILY [facility] Last Admin: 06/11/16 10:33 Dose: 650 mg Warfarin Sodium (Coumadin -) 5 mg PO DAILY@1800 [facility] Last Admin: 06/10/16 17:16 Dose: 5 mg - Objective Vital Signs: Vital Signs Temperature 98.5 F 06/11/16 06:00 Pulse Rate 69 06/11/16 09:43 Respiratory Rate 16 06/11/16 06:00 Blood Pressure 160/70 06/11/16 06:00 O2 Sat by Pulse Oximetry (%) 98 06/11/16 09:43 Constitutional: Yes: No Distress, Calm Cardiovascular: Yes: Regular Rate and Rhythm Respiratory: Yes: Regular, CTA Bilaterally Gastrointestinal: Yes: Normal Bowel Sounds, Soft Musculoskeletal: Yes: WNL Extremities: Yes: Other Wound/Incision: Yes: Dressing Dry and Intact Neurological: Yes: Alert, Oriented Psychiatric: Yes: Alert, Oriented Labs: CBC, BMP 06/10/16 06:10 06/11/16 08:10 INR, PTT INR 1.95 (0.82-1.09) H 06/11/16 08:10 Assessment/Plan - Problem Paroxysmal atrial fibrillation with RVR Code(s): I48.0 - PAROXYSMAL ATRIAL FIBRILLATION CKD stage 4 due to type 2 diabetes mellitus Code(s): E11.22 - TYPE 2 DIABETES MELLITUS W DIABETIC CHRONIC KIDNEY DISEASE N18.4 - CHRONIC KIDNEY DISEASE, STAGE 4 (SEVERE) Intractable headache Code(s): R51 - HEADACHE Asthma Code(s): J45.909 - UNSPECIFIED ASTHMA, UNCOMPLICATED IDDM (insulin dependent diabetes mellitus) Code(s): E11.9 - TYPE 2 DIABETES MELLITUS WITHOUT COMPLICATIONS Z79.4 - CHAIN [employer]ILDER LOOM CONTROL (CURRENT) USE OF INSULIN Current smoker Code(s): F17.200 - NICOTINE DEPENDENCE, UNSPECIFIED, UNCOMPLICATED gluteal abscess s/p drainage plan stable off of abx continue wound care
[2016-06-11] MEDS: hydrALAZINE HCL 50 MG TABLET (FP) PO SCH ×2 (13:38→17:47)
[2016-06-11] MEDS: ACLIDINIUM BROMIDE 400 MCG/INH AERO.POWD IH SCH ×2 (13:40→21:48)
--- NOTE | 2016-06-11 15:00 | PN ---
Teaching Attending Note Name of Resident: Antwon Grcae ATTENDING PHYSICIAN STATEMENT I saw and evaluated the patient. I reviewed the resident's note and discussed the case with the resident. I agree with the resident's findings and plan as documented. SUBJECTIVE: No new complaints. OBJECTIVE: Vital Signs Period Temp Pulse Resp BP Sys/Renee Pulse Ox Last 24 Hr 98.1 F-98.9 F 69-85 16-20 159-192/69-72 98-99 HEART: S1 S2, RRR LUNGS: Scattered rhonchi ABDOMEN: Soft, non-tender, non-distended, normal BS EXTREMITIES: No edema ASSESSMENT AND PLAN: This is a 75-year-old woman with a history of atrial flutter, ablation, HTN, DM , hyperlipidemia who presented to the ER and was admitted for sepsis, gluteal abscess, and atrial fib with RVR. 1. Sepsis secondary to gluteal abscess - s/p I&D (06/05) - Completed Zosyn, Ancef 2. Atrial fib with RVR - Converted to sinus rhythm - Continue Cardizem CD, Coumadin 3. Hypertensive urgency - Resolved 4. Hypertension - Continue Cardizem, Hydralazine 5. Acute kidney injury - Improving 6. Stage 4 CKD 7. COPD - Continue Pulmicort, Tudorza, DuoNeb as needed 8. Anemia, likely secondary to chronic illness - Hemoglobin stable 9. Hypomagnesemia - Resolved 10. DM - Continue Levemir, Novolog sliding scale
--- NOTE | 2016-06-11 15:35 | PN ---
Physical Exam: SUBJECTIVE: Patient seen and examined Pt is feeling tired and weak Pt has refused to walk with physical therapy No fever or chills SOb on exertion OBJECTIVE: Vital Signs Period Temp Pulse Resp BP Sys/Renee Pulse Ox Last 24 Hr 98.1 F-98.9 F 69-85 16-20 159-192/69-72 98-99 GENERAL: The patient is awake, alert, and fully oriented, in mild distress. HEAD: Normal with no signs of trauma. NECK: Trachea midline, full range of motion, supple. LUNGS: Breath sounds equal, crackles in b/l bases to auscultation bilaterally, no wheezes HEART: Regular rate and rhythm, S1, S2 with systolic murmur 3/6, rub or gallop. ABDOMEN: Soft, nontender, nondistended, normoactive bowel sounds, no guarding, no rebound, no hepatosplenomegaly, no masses. EXTREMITIES: 2+ pulses, warm, well-perfused, no edema. NEUROLOGICAL: Normal speech, gait not observed. PSYCH: Normal mood, normal affect. SKIN: Warm, dry, normal turgor, Right gluteal abscess s/p I&D closed and healing , no redness, no swelling, no odor. Laboratory Results - last 24 hr 06/10/16 06/10/16 06/11/16 15:33 21:42 06:20 INR Sodium Potassium Chloride Carbon Dioxide Anion Gap BUN Creatinine POC Glucometer 232 126 111 Random Glucose Calcium 06/11/16 06/11/16 06/11/16 08:10 08:10 12:44 INR 1.95 H Sodium 143 Potassium 4.4 Chloride 111 H Carbon Dioxide 21 Anion Gap 11 BUN 22 H Creatinine 2.4 H POC Glucometer 153 Random Glucose 119 H D Calcium 8.3 L Active Medications Generic Name Dose Route Start Last Admin Trade Name Freq PRN Reason Stop Dose Admin Acetaminophen 650 mg 06/08/16 11:11 06/08/16 15:03 Tylenol - PO 650 mg Q6H PRN Administration FEVER OR PAIN Aclidinium [place] 1 puff 06/06/16 22:00 06/11/16 13:40 Tudorza - IH 1 puff BID [facility] Administration Budesonide 1 amp 06/06/16 14:45 06/11/16 10:26 Pulmicort 0.5 Mg Nebulizer - NEB 1 amp BID [facility] Administration Cholecalciferol 1,000 unit 06/05/16 10:00 06/11/16 10:30 Vitamin D3 - PO 1,000 unit DAILY [facility] Administration Diltiazem HCl 10 mg 06/06/16 09:31 06/06/16 12:14 Cardizem Injection - IVPUSH 10 mg Q2H PRN Administration TACHYCARDIA Diltiazem HCl 360 mg 06/10/16 10:00 06/11/16 10:30 Cardizem Cd - PO 360 mg DAILY [facility] Administration Hydralazine HCl 50 mg 06/11/16 13:00 06/11/16 13:38 Apresoline - PO 50 mg Q6HPO [facility] Administration Insulin Aspart 1 vial 06/05/16 08:45 06/11/16 12:45 Novolog Vial Sliding Scale - SQ Not Given ACHS [facility] Protocol Insulin Detemir 20 units 06/07/16 22:00 06/10/16 21:51 Levemir Vial SQ 20 units HS [facility] Administration Lactobacillus Acidophilus 1 tab 06/10/16 10:00 06/11/16 10:30 Bacid - PO 1 tab DAILY [facility] Administration Nicotine 14 mg 06/05/16 10:00 06/11/16 10:34 Nicoderm Patch - TD 14 mg DAILY [facility] Administration Pantoprazole Sodium 40 mg 06/05/16 10:00 06/11/16 10:33 Protonix - PO 40 mg DAILY [facility] Administration Sodium Bicarbonate 650 mg 06/08/16 13:45 06/11/16 10:33 Sodium Bicarbonate - PO 650 mg DAILY [facility] Administration Warfarin Sodium 5 mg 06/08/16 18:00 06/10/16 17:16 Coumadin - PO 5 mg DAILY@1800 [facility] Administration CBC, BMP 06/10/16 06:10 06/11/16 08:10 ASSESSMENT/PLAN: 75 year old female with pmh of HTN, HPLD, CKD, Anemia, Asthma, Diabetes, Paroxysmal AFIB s/p Ablation presented to the ED complains of headache, pain and cellulitis in the right gluteal region, fatigue. Pt was found to be in rapid AFIB, Hypertensive urgency, with abscess and cellulitis in right gluteal. Sepsis from right Gluteal abscess/cellulitis fever 100.6, tachycardia, leukocytosis on admission Cefazolin and Vancomycin given on admission ID consulted Dr Ashford, started Clindamycin 600mg IV and Zosyn 2.25gm 7 days completed Surgery consulted Incision and drainage done last week (06/05/16), wound is almost healed Acute Hypoxic respiratory Failure related to severe COPD Pt is a chronic smoker Pulmonary Dr Cali on the case On Spiriva On Pulmicort O2 keep O2 sat >88% Paroxismal afib s/p ablation Pt came in rapid afib, Converted to Sr after meds, Cardizem IV given in ED 30mg cardiology consulted Dr Griffith Cardizem PO 360mg daily by cardiology No event on the monitor [id number] score 5 Coumadin 5mg PO daily, INR therapeutic 1.95 Will give one dose of 7mg of Coumadin today INR in am HTN BP was uncontrolled yesterday Cardizem PO increase to 360mg daily increased Hydralazine to 50mg Po q6h Consider adding Minoxidil if not controlled on hydralazine Headache likely rt to hypertensive urgency r/o Migraine Pt came with BP of 238/97 Now BP has normalized, sheldon more headache Pt seen By neurology PRN Fioricet Diabetes HgbA1c 9.9 BGM ACHS NOvolog sliding scale Levemir 20U qhs JOSE on CKD Stage 4 baseline 2.5-2.8, was 2.9 on admission, now 2.4 renal function are improving no more IV fluid needed Avoid nephrotoxins Dr To on case Iron Deficiency Anemia iron supplement Generalized weakness/fatigue May be rt to anemia. May be rt to advance COPD, CKD stage 4, cardiac arrhythmia/ CHF. Have to consider infectious, rheumatological causes, immunologic causes. quechan titers normal AM cortisol Normal Pt will need further outpatient work up. Smoking Cessation Pt is a current smoker Nicotine patch FEN Fluid: none Electrolytes: chemistry in am Nutrition: diabetic/cardiac diet DVT prophylaxis: Coumadin Disposition: Discharge once Blood pressure is controlled Visit type - Emergency Visit Emergency Visit: Yes ED Registration Date: 06/04/16 Care time: The patient presented to the Emergency Department on the above date and was hospitalized for further evaluation of their emergent condition. - New Patient This patient is new to me today: Yes - Critical Care Critical Care patient: No - Discharge Referral Referred to [facility] Med P.C.: No
[2016-06-11] MEDS ORDERED: WARFARIN NA 7.5 MG TABLET (FP) PO ONE (18:00)
[2016-06-11] MEDS ORDERED: diphenhydrAMINE HCL 25 MG CAPSULE (FP) PO PRN (18:56)
[2016-06-11] MEDS ORDERED: PT OWN MED DRAWER 7, Y5N ONE (21:37)
[2016-06-11] MEDS: INSULIN DETEMIR 100 UNITS/ML MDV SQ SCH (21:48)
[2016-06-12] MEDS: hydrALAZINE HCL 50 MG TABLET (FP) PO SCH ×3 (00:28→12:02)
[2016-06-12] MEDS: INSULIN SLIDING SCALE (NOVOLOG) 1 VIAL SQ SCH ×2 (06:04→10:58)
[2016-06-12 07:56] VITALS: TEMP 98.1
[2016-06-12 08:19] LABS: INR 2.06 (0.82-1.09)
--- NOTE | 2016-06-12 09:39 | PN ---
Progress Note, Physician Chief Complaint: no distress History of Present Illness: TELE: NSR, few aberrantly conducted APCs - Current Medication List Current Medications: Active Medications Acetaminophen (Tylenol -) 650 mg PO Q6H PRN PRN Reason: FEVER OR PAIN Last Admin: 06/08/16 15:03 Dose: 650 mg Aclidinium [place] (Tudorza -) 1 puff IH BID [facility] Last Admin: 06/11/16 21:48 Dose: 1 puff Budesonide (Pulmicort 0.5 Mg Nebulizer -) 1 amp NEB BID [facility] Last Admin: 06/11/16 22:42 Dose: 1 amp Cholecalciferol (Vitamin D3 -) 1,000 unit PO DAILY [facility] Last Admin: 06/11/16 10:30 Dose: 1,000 unit Diltiazem HCl (Cardizem Injection -) 10 mg IVPUSH Q2H PRN PRN Reason: TACHYCARDIA Last Admin: 06/06/16 12:14 Dose: 10 mg Diltiazem HCl (Cardizem Cd -) 360 mg PO DAILY [facility] Last Admin: 06/11/16 10:30 Dose: 360 mg Diphenhydramine HCl (Benadryl -) 25 mg PO HS PRN PRN Reason: INSOMNIA Hydralazine HCl (Apresoline -) 50 mg PO Q6HPO [facility] Last Admin: 06/12/16 06:03 Dose: 50 mg Insulin Aspart (Novolog Vial Sliding Scale -) 1 vial SQ ACHS [facility] PRN Reason: Protocol Last Admin: 06/12/16 06:04 Dose: Not Given Insulin Detemir (Levemir Vial) 20 units SQ HS [facility] Last Admin: 06/11/16 21:48 Dose: 20 units Lactobacillus Acidophilus (Bacid -) 1 tab PO DAILY [facility] Last Admin: 06/11/16 10:30 Dose: 1 tab Nicotine (Nicoderm Patch -) 14 mg TD DAILY [facility] Last Admin: 06/11/16 10:34 Dose: 14 mg Pantoprazole Sodium (Protonix -) 40 mg PO DAILY [facility] Last Admin: 06/11/16 10:33 Dose: 40 mg Sodium Bicarbonate (Sodium Bicarbonate -) 650 mg PO DAILY [facility] Last Admin: 06/11/16 10:33 Dose: 650 mg - Objective Vital Signs: Vital Signs Temperature 98.1 F 06/12/16 07:55 Pulse Rate 72 06/12/16 07:55 Respiratory Rate 20 06/12/16 07:55 Blood Pressure 156/66 06/12/16 07:55 O2 Sat by Pulse Oximetry (%) 95 06/11/16 21:00 Constitutional: Yes: No Distress, Calm Cardiovascular: Yes: Regular Rate and Rhythm Respiratory: Yes: CTA Bilaterally Gastrointestinal: Yes: Soft (non-tender) Edema: No Neurological: Yes: Alert Labs: CBC, BMP 06/10/16 06:10 06/11/16 08:10 INR, PTT INR 2.06 (0.82-1.09) H 06/12/16 05:35 Laboratory Tests 06/12/16 05:35 INR 2.06 H - ....Imaging EKG: Image Reviewed Assessment/Plan Arrhythmia-newly diagnosed Paroxysmal Afib with RVR, with a history of Aflutter s/p ablation with no recorded recurrence -Continue Cardizem CD 360 -intolerant of beta blockers (fatigue) - goal INR 2-3 -ok to dc tele -plan for additional event monitor as outpatient -there is no further inpatient cardiac work up planned
[2016-06-12] MEDS: NICOTINE 14 MG/24 HOURS TOPICAL PATCH TD SCH (09:56)
[2016-06-12] MEDS: CHOLECALCIFEROL (VITAMIN D3) 1,000 UNIT TABLET (FP) PO SCH (09:56)
[2016-06-12] MEDS: LACTOBACILLUS ACIDOPHILUS 1 EACH TAB (FP) PO SCH (09:56)
[2016-06-12] MEDS: SODIUM BICARBONATE 650 MG TABLET PO SCH (09:56)
[2016-06-12] MEDS: PANTOPRAZOLE 40 MG TABLET (FP) PO SCH (09:56)
[2016-06-12] MEDS: ACLIDINIUM BROMIDE 400 MCG/INH AERO.POWD IH SCH (09:57)
[2016-06-12] MEDS: BUDESONIDE 0.5 MG/2 ML INH SUSP VIAL NEB SCH (10:00)
--- NOTE | 2016-06-12 11:56 | PN ---
Teaching Attending Note Name of Resident: Antwon Grace ATTENDING PHYSICIAN STATEMENT I saw and evaluated the patient. I reviewed the resident's note and discussed the case with the resident. I agree with the resident's findings and plan as documented. SUBJECTIVE: OBJECTIVE: Vital Signs Period Temp Pulse Resp BP Sys/Renee Pulse Ox Last 24 Hr 97.4 F-99.4 F 72-106 16-20 136-190/60-77 95-99 HEART: S1 S2, RRR LUNGS: Few rhonchi ABDOMEN: Soft, non-tender, non-distended, normal BS EXTREMITIES: No edema ASSESSMENT AND PLAN: This is a 75-year-old woman with a history of atrial flutter, ablation, HTN, DM , hyperlipidemia who presented to the ER and was admitted for sepsis, gluteal abscess, and atrial fib with RVR. 1. Sepsis secondary to gluteal abscess - s/p I&D (06/05) - Completed Zosyn, Ancef 2. Atrial fib with RVR - Remains in SR - Continue Cardizem CD, Coumadin 3. Hypertensive urgency - Resolved 4. Hypertension - Continue Cardizem - Hydralazine started 5. Acute kidney injury - Resolved 6. Stage 4 CKD 7. COPD - Continue Pulmicort, Tudorza, DuoNeb as needed 8. Anemia, likely secondary to chronic illness - Hemoglobin stable 9. Hypomagnesemia - Resolved 10. DM - Continue Levemir, Novolog sliding scale 11. OK for discharge home today
[2016-06-12 12:05] VITALS: BP 152/66; PULSE 90
--- NOTE | 2016-06-12 12:35 | PN ---
Progress Note (short form) - Note Progress Note: Renal Follow up for JOSE on CKD Pt seen and examined at the bedside sob is better but still persists no chest pain or cough for discharge home today Vital Signs Temperature 98.1 F 06/12/16 07:55 Pulse Rate 90 06/12/16 12:05 Respiratory Rate 18 06/12/16 12:05 Blood Pressure 152/66 06/12/16 12:05 O2 Sat by Pulse Oximetry (%) 99 06/12/16 11:09 Intake & Output 06/09/16 06/10/16 06/11/16 06/12/16 23:59 23:59 23:59 23:59 Intake Total 224 605 4654 100 Balance 423 661 3901 100 Gen: Mildly dyspneic CVS: RRR, No M/R Lungs: + crackles at lung bases, no wheeze Abd: soft NT/ND, nO bladder distension Ext: No edema, clubbing or cyanosis CBC, BMP 06/10/16 06:10 06/11/16 08:10 Current Medications Acetaminophen (Tylenol -) 650 mg PO Q6H PRN PRN Reason: FEVER OR PAIN Last Admin: 06/08/16 15:03 Dose: 650 mg Aclidinium [place] (Tudorza -) 1 puff IH BID [facility] Last Admin: 06/12/16 09:57 Dose: Not Given Budesonide (Pulmicort 0.5 Mg Nebulizer -) 1 amp NEB BID [facility] Last Admin: 06/12/16 10:00 Dose: 1 amp Cholecalciferol (Vitamin D3 -) 1,000 unit PO DAILY [facility] Last Admin: 06/12/16 09:56 Dose: 1,000 unit Diltiazem HCl (Cardizem Injection -) 10 mg IVPUSH Q2H PRN PRN Reason: TACHYCARDIA Last Admin: 06/06/16 12:14 Dose: 10 mg Diltiazem HCl (Cardizem Cd -) 360 mg PO DAILY [facility] Last Admin: 06/12/16 09:56 Dose: 360 mg Diphenhydramine HCl (Benadryl -) 25 mg PO HS PRN PRN Reason: INSOMNIA Hydralazine HCl (Apresoline -) 50 mg PO Q6HPO [facility] Last Admin: 06/12/16 12:02 Dose: 50 mg Insulin Aspart (Novolog Vial Sliding Scale -) 1 vial SQ ACHS [facility] PRN Reason: Protocol Last Admin: 06/12/16 10:58 Dose: Not Given Insulin Detemir (Levemir Vial) 20 units SQ HS [facility] Last Admin: 06/11/16 21:48 Dose: 20 units Lactobacillus Acidophilus (Bacid -) 1 tab PO DAILY [facility] Last Admin: 06/12/16 09:56 Dose: 1 tab Nicotine (Nicoderm Patch -) 14 mg TD DAILY [facility] Last Admin: 06/12/16 09:56 Dose: 14 mg Pantoprazole Sodium (Protonix -) 40 mg PO DAILY [facility] Last Admin: 06/12/16 09:56 Dose: 40 mg Sodium Bicarbonate (Sodium Bicarbonate -) 650 mg PO DAILY [facility] Last Admin: 06/12/16 09:56 Dose: 650 mg A/P 75 year old woman with PMHx of CKD stage 4 (baseline Cr 2.2-2.5) from suspected diabetic nephropathy, hypertension, hypercholesterolemia, asthma, anemia, adult onset insulin dependent diabetes mellitus presented with JANE and found to have infected gluetial abcess and JOSE with BUN/Cr that peaked at 36/3.6, #JOSE on CKD Stage 4 Renal Function stable at this time to follow up in the office in 2-3 week for management of CKD #Metabolic Acidosis Continue sodium bicarb 650mg Daily #Gluetal Abscess Continue Abx as per ID f/u cultures #Hypertension/Hypertensive Urgency on Diltizaem and Hydraalzine no GLENDA/ARB given low GFR will further titrate BP meds as outpatient #DM on Insulin with hyperglycemia continue insulin as needed Thank you Tylor To DO
--- NOTE | 2016-06-12 13:14 | PN ---
Progress Note (short form) - Note Progress Note: PULMONARY Breathing not quite at baseline but improving. Occasional nonproductive cough. Last Vital Signs Temp Pulse Resp BP Pulse Ox 98.1 F 90 18 152/66 99 06/12/16 07:55 06/12/16 12:05 06/12/16 12:05 06/12/16 12:05 06/12/16 11:09 Gen: NAD at rest Heart: RRR Lung: distant breath sounds Abd: soft, nontender Ext: no edema CBC, BMP 06/10/16 06:10 06/11/16 08:10 Active Medications Acetaminophen (Tylenol -) 650 mg PO Q6H PRN PRN Reason: FEVER OR PAIN Last Admin: 06/08/16 15:03 Dose: 650 mg Aclidinium [place] (Tudorza -) 1 puff IH BID [facility] Last Admin: 06/12/16 09:57 Dose: Not Given Budesonide (Pulmicort 0.5 Mg Nebulizer -) 1 amp NEB BID [facility] Last Admin: 06/12/16 10:00 Dose: 1 amp Cholecalciferol (Vitamin D3 -) 1,000 unit PO DAILY [facility] Last Admin: 06/12/16 09:56 Dose: 1,000 unit Diltiazem HCl (Cardizem Injection -) 10 mg IVPUSH Q2H PRN PRN Reason: TACHYCARDIA Last Admin: 06/06/16 12:14 Dose: 10 mg Diltiazem HCl (Cardizem Cd -) 360 mg PO DAILY [facility] Last Admin: 06/12/16 09:56 Dose: 360 mg Diphenhydramine HCl (Benadryl -) 25 mg PO HS PRN PRN Reason: INSOMNIA Hydralazine HCl (Apresoline -) 50 mg PO Q6HPO [facility] Last Admin: 06/12/16 12:02 Dose: 50 mg Insulin Aspart (Novolog Vial Sliding Scale -) 1 vial SQ ACHS [facility] PRN Reason: Protocol Last Admin: 06/12/16 10:58 Dose: Not Given Insulin Detemir (Levemir Vial) 20 units SQ HS [facility] Last Admin: 06/11/16 21:48 Dose: 20 units Lactobacillus Acidophilus (Bacid -) 1 tab PO DAILY [facility] Last Admin: 06/12/16 09:56 Dose: 1 tab Nicotine (Nicoderm Patch -) 14 mg TD DAILY [facility] Last Admin: 06/12/16 09:56 Dose: 14 mg Pantoprazole Sodium (Protonix -) 40 mg PO DAILY [facility] Last Admin: 06/12/16 09:56 Dose: 40 mg Sodium Bicarbonate (Sodium Bicarbonate -) 650 mg PO DAILY [facility] Last Admin: 06/12/16 09:56 Dose: 650 mg A/P COPD Paroxysmal Atrial Fibrillation now in sinus CKD HTN DM Smoker - inhaled bronchodilators - rate controlled - smoking cessation - outpt PFTs - DVT prophylaxis
--- NOTE | 2016-06-12 14:25 | PN ---
Progress Note, Physician History of Present Illness: patient doing much well no complaints dirrhoea resolved patient feeling much better - Objective Vital Signs: Vital Signs Temperature 98.1 F 06/12/16 07:55 Pulse Rate 90 06/12/16 12:05 Respiratory Rate 18 06/12/16 12:05 Blood Pressure 152/66 06/12/16 12:05 O2 Sat by Pulse Oximetry (%) 99 06/12/16 11:09 Constitutional: Yes: No Distress, Calm Cardiovascular: Yes: Regular Rate and Rhythm Respiratory: Yes: Regular, CTA Bilaterally Gastrointestinal: Yes: Normal Bowel Sounds, Soft Musculoskeletal: Yes: WNL Extremities: Yes: WNL Wound/Incision: Yes: Dressing Dry and Intact Neurological: Yes: Alert, Oriented Psychiatric: Yes: Alert, Oriented Labs: CBC, BMP 06/10/16 06:10 06/11/16 08:10 INR, PTT INR 2.06 (0.82-1.09) H 06/12/16 05:35 Assessment/Plan - Problem Paroxysmal atrial fibrillation with RVR Code(s): I48.0 - PAROXYSMAL ATRIAL FIBRILLATION CKD stage 4 due to type 2 diabetes mellitus Code(s): E11.22 - TYPE 2 DIABETES MELLITUS W DIABETIC CHRONIC KIDNEY DISEASE N18.4 - CHRONIC KIDNEY DISEASE, STAGE 4 (SEVERE) Intractable headache Code(s): R51 - HEADACHE Asthma Code(s): J45.909 - UNSPECIFIED ASTHMA, UNCOMPLICATED IDDM (insulin dependent diabetes mellitus) Code(s): E11.9 - TYPE 2 DIABETES MELLITUS WITHOUT COMPLICATIONS 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
== END 2016-06-12 14:21 | disposition home or self-care (01) | DRG 872 ==
LOC: JER 11:27 → JERBED 21:34 → J4W 06-05 02:46
PROVIDERS: ADMIT Internal Medicine; ATTEND Internal Medicine
PROC: 0H98XZX Drainage of Buttock Skin, External Approach, Diagnostic (ICD-10-PCS; principal; 2016-06-05)
DX: A41.9 Sepsis, unspecified organism (principal); L02.31 Cutaneous abscess of buttock; I47.1 Supraventricular tachycardia; N18.4 Chronic kidney disease, stage 4 (severe); N17.9 Acute kidney failure, unspecified; I48.92 Unspecified atrial flutter; L03.317 Cellulitis of buttock; E87.2 Acidosis; I13.0 Hypertensive heart and chronic kidney disease with heart failure and stage 1 through stage 4 chronic kidney disease, or unspecified chronic kidney disease; I50.30 Unspecified diastolic (congestive) heart failure; E78.00 Pure hypercholesterolemia, unspecified; J45.909 Unspecified asthma, uncomplicated; I48.0 Paroxysmal atrial fibrillation; J44.9 Chronic obstructive pulmonary disease, unspecified; F41.8 Other specified anxiety disorders; F17.210 Nicotine dependence, cigarettes, uncomplicated; G43.909 Migraine, unspecified, not intractable, without status migrainosus; I25.10 Atherosclerotic heart disease of native coronary artery without angina pectoris; D63.8 Anemia in other chronic diseases classified elsewhere; G62.89 Other specified polyneuropathies; E11.22 Type 2 diabetes mellitus with diabetic chronic kidney disease; E11.65 Type 2 diabetes mellitus with hyperglycemia; E11.51 Type 2 diabetes mellitus with diabetic peripheral angiopathy without gangrene; I27.2 Other secondary pulmonary hypertension; E83.42 Hypomagnesemia; I16.0 Hypertensive urgency; E11.21 Type 2 diabetes mellitus with diabetic nephropathy; Z86.718 Personal history of other venous thrombosis and embolism; Z79.4 Long term (current) use of insulin
CPT/HCPCS: 36415; 70450-TC; 71010-TC; 74176-TC; 80048; 80053; 80061; 81003; 81015; 82533; 82550; 82570; 82728; 82803; 83036; 83540; 83550; 83605; 83721; 83735; 84100; 84156; 84300; 84443; 84466; 84484; 85025; 85027; 85610; 85730; 86618; 86850; 86900; 86901; 87040; 87070; 87076; 87086; 87205; 93005; 93010; 94640; 94761; 97116-GP; 97161-GP; 99285-25; G0480; J1644; Q9967

== ENCOUNTER 2016-08-06 13:12 | Emergency (ER) | payer OTHER ==
[2016-08-06 13:22] VITALS: TEMP 98.1; BMI 28.8
--- NOTE | 2016-08-06 13:53 | PDOC ---
History of Present Illness - General Chief Complaint: Shortness of Breath Stated Complaint: SOB Time Seen by Provider: 08/06/16 13:44 History Source: Patient Exam Limitations: No Limitations - History of Present Illness Initial Comments: 08/06/16 17:06 The patient is a 75 year old female, with a significant past medical history of HTN, hypercholesterolemia, asthma, anemia, IDDM, and anxiety , who presents to the emergency department with SOB and nausea. The patient reports having intermittent episodes of SOB that occasionally are coupled with nausea. She reports her symptoms often last throughout the day and seem to resolve spontaneously. She reports these epiosde often have a sudden acute at random times of the day almost daily. She reports intermittently having SOB and nausea similar to this episde. Patient has had previous workups with cardiology and pulmonology without any clear cause of her symptoms. The patient reports she woke up feeling well this morning, and being prompoted to come to the ER after having the return of her SOB this morning while walking, and having nauesa while in the car later this afterrnoon. The patient last had an ECHOcardiogram in June 2015 with an EF of 77%. She denies recent fevers, chills, headache or dizziness. She denies recent vomit, diarrhea or constipation. She denies recent dysuria, frequency, urgency or hematuria. She denies any associated chest pain or exertional sob/cp. Allergies: NKA Past surgical history: None reported Social history: Former smoker (quit 2 months ago). Denies EtOH use and recreational drug use. Cardiology: Past History - Past Medical History Allergies/Adverse Reactions: Allergies Allergy/AdvReac Type Severity Reaction Status Date / Time No Known Allergies Allergy Verified 08/06/16 13:22 Home Medications: Ambulatory Orders Cholecalciferol (Vitamin D3) [Vitamin D3] 1,000 unit PO DAILY #30 tab.chew 08/01 Dexlansoprazole [Dexilant] 30 mg PO DAILY #30 cap. 08/02/15 Insulin Sliding Scale [Novolog Vial Sliding Scale -] 1 vial SQ ACHS units 08/01 Aclidinium [place] [Tudorza -] 1 puff IH BID #1 inhaler 06/12/16 Albuterol Sulfate Inhaler - [Ventolin HFA Inhaler -] 1 - 2 inh PO Q4H PRN #1 inhaler 06/12/16 Budesonide [Pulmicort Flexhaler] 90 mcg IH BID #1 aer.pow.ba 06/12/16 Diltiazem Cd [Cardizem Cd -] 360 mg PO DAILY #30 tab 06/12/16 Hydralazine HCl [Apresoline -] 50 mg PO Q6HPO #120 tablet 06/12/16 Insulin (Levemir) [Levemir Flexpen -] 20 units SQ HS #1 vial 06/12/16 Lactobacillus Acidophilus [Bacid -] 1 tab PO DAILY #30 tab 06/12/16 Sodium Bicarbonate - 650 mg PO DAILY #14 tablet 06/12/16 Warfarin Sodium [Coumadin] 0 mg PO DAILY 08/06/16 Anemia: Yes Asthma: Yes Cancer: No Cardiac Disorders: Yes (AF ablation) CVA: No COPD: No CHF: No Dementia: No Diabetes: Yes (IDDM) GI Disorders: No Disorders: Yes (frequency) HTN: Yes Hypercholesterolemia: Yes Liver Disease: No Psychiatric Problems: Yes (DEPRESSION) Seizures: No Thyroid Disease: No - Surgical History Abdominal Surgery: Yes (TUBAL LIG.) Appendectomy: No Cardiac Surgery: No Cholecystectomy: No Lung Surgery: No Neurologic Surgery: No Orthopedic Surgery: Yes (hammer toes,trigger finger) - Family Disease History Family Disease History: Diabetes: Grandparents, [place]: Mother (htn) - Immunization History Immunization Up to Date: Yes - Psycho/Social/Smoking Cessation Hx Anxiety: No Suicidal Ideation: No Smoking Status: Yes Smoking History: Former smoker Have you smoked in the past 12 months: No Number of Cigarettes Smoked Daily: 6 If you are a former smoker, when did you quit?: 2 MO AGO Information on smoking cessation initiated: No 'Breaking Loose' booklet given: 06/22/15 Hx Alcohol Use: No Drug/Substance Use Hx: No Substance Use Type: None Hx Substance Use Treatment: No Review of Systems - Review of Systems Able to Perform ROS?: Yes Comments:: 08/06/16 17:09 CONSTITUTIONAL: No reported: Fever, Chills, Diaphoresis, Generalized Weakness, Malaise, Loss of Appetite HEENT: No reported: Rhinorrhea, Nasal Congestion, Throat Pain, Throat Swelling, Difficulty Swallowing, Mouth Swelling, Ear Pain, Eye Pain, Visual Changes CARDIOVASCULAR: No reported: Chest Pain, Syncope, Palpitations, Irregular Heart Rate, Lightheadedness, Peripheral Edema RESPIRATORY: +SOB. No reported: Cough, Wheezing, Stridor, Hemoptysis GASTROINTESTINAL: +Nausea. No reported: Abdominal pain, Abdominal Distension, Vomiting, Diarrhea, Constipation, Melena, Hematochezia GENITOURINARY: No reported: Dysuria, Frequency, Urgency, Hesitancy, Flank Pain, Genital Pain MUSCULOSKELETAL: No reported: Myalgia, Arthralgia, Joint Swelling, Back pain, Neck Pain SKIN: No reported: Rash, Itching, Pallor HEMATOLOGIC/IMMUNOLOGIC: No reported: Easy Bleeding, Easy Bruising, Lymphadenopathy, Frequent infections ENDOCRINE: No reported: Unexplained Weight Gain, Unexplained Weight Loss, Heat Intolerance , Cold Intolerance NEUROLOGIC: No reported: Headache, Focal Weakness, Paresthesias, Vertigo, Lightheadedness, Unsteady Gait, Seizure, Mental Status Changes, Incontinence PSYCHIATRIC: No reported: Anxiety, Depression *Physical Exam - Vital Signs Last Vital Signs Temp Pulse Resp BP Pulse Ox 98.1 F 100 H 28 H 243/99 100 08/06/16 13:16 08/06/16 13:36 08/06/16 13:16 08/06/16 13:16 08/06/16 13:36 - Physical Exam Comments: 08/06/16 17:09 GENERAL: The patient is awake, alert, and fully oriented HEAD: Normocephalic, atraumatic. EYES: extraocular movements intact, sclera anicteric, conjunctiva clear. ENT: Normal voice, Moist mucous membranes. NECK: Normal range of motion, supple LUNGS: +tachypneic but speaking complete sentences. Breath sounds equal, clear to auscultation bilaterally. No wheezes, no rhonchi, no rales. HEART: Regular rate and rhythm, without murmur, rub or gallop. ABDOMEN: Soft, nontender, normoactive bowel sounds. No guarding, no rebound.No CVA tenderness EXTREMITIES: Normal range of motion, trace LE edema. neg homans, no calf tenderness NEUROLOGICAL: No facial asymmetry, Normal speech. PSYCH: Normal mood, anxious affect SKIN: Warm, Dry, normal turgor. Heart Score/ECG Review - ECG Impressions Comment:: 08/06/16 14:16 Twelve-lead EKG was performed and reviewed by me. There is normal sinus rhythm with a normal rate. rate of 91 PVCs present The axis is normal. The intervals are normal. There is normal R wave progression 08/06/16 17:10 ED Treatment Course - LABORATORY CBC & Chemistry Diagram: 08/06/16 14:41 08/06/16 14:41 Medical Decision Making - Medical Decision Making 08/06/16 14:15 75y F hx of hx of afib on coumadin, htn, hl, asthma, dm, anxiety, presents with complaing of sob and nausea. Pt states she freqeutnly feels sob, and has episodes of sob that can last for hours. This pt endorses feeling some sob this morning when going for a morning walk w/o any cp, she started to feel nauseaus in the car going to a counseling session so came to the ED for evluation - pt denies any cp, abd pain, bcak pain, cough, fever/chills. vitals normal here, though pt appears to be tachypneic with an anxious affect Suspect anxiety, pt notes her sob episodes are simialr to previous/daily occurrences. consider possible arrhtmia however the pt was still feeling sob on exam and has an ekg showing NSR. will r/o pna, anemia, metabolic derangement, trop to r/o acs will give zofran, fliudis, small dose of xanax will reassess will d/w dr. griffith when results are back for disposition 08/06/16 17:01 labs reviewed ckd chronic for her and at [facility] bnp slighlty elevated 1k cxr shws minimal congestion, but pts sypmtoms does not appear c/w chf pt feeling improved vitals normal case dw dr. griffith, agrees it is reasonable to obtain another troponin at 4 hrs and if pt feeling well imani dc michael pt with pmd fu pt signed out to dr. Ko to fu with repeat trop and reassess the pt *DC/Admit/Observation/Transfer Diagnosis at time of Disposition: Shortness of breath, Nausea - Discharge Dispostion Disposition: HOME Condition at time of disposition: Stable - Referrals Referrals: José Miguel Griffith MD [Staff Physician] - Myesha Khan MD [Primary Care Provider] - - Patient Instructions Printed Discharge Instructions: DI for Shortness of Breath, DI for Nausea -- Adult
[2016-08-06] MEDS ORDERED: ALPRAZolam 0.25 MG TABLET PO ONE (14:14)
[2016-08-06] MEDS ORDERED: ONDANSETRON 4 MG/2 ML VIAL IVPB ONE (14:15)
[2016-08-06] MEDS ORDERED: SODIUM CHLORIDE 500 ML IV STA (14:15)
[2016-08-06] MEDS ORDERED: ALPRAZolam 0.25 MG TABLET ONE (14:33)
[2016-08-06] MEDS ORDERED: ONDANSETRON 4 MG/2 ML VIAL ONE (14:33)
[2016-08-06 14:56] LABS: VENOUS BLOOD GAS HCO3 20.5 meq/L (19-25); VENOUS PH 7.39 (7.32-7.42)
[2016-08-06 14:57] LABS: BASOPHIL 1.2 % (0-2.0); EOSINOPHIL 0.4 % (0-4.5); MCH 29.9 pg (25.7-33.7); MEAN CELL VOLUME 93.2 fl (80-96); MEAN PLT VOLUME 8.8 fl (7.5-11.1); PLATELET COUNT 202 K/MM3 (134-434); RDW 16.3 % (11.6-15.6); WHITE BLOOD COUNT 6.7 K/mm3 (4.0-10.0)
[2016-08-06 15:18] LABS: INR 1.21 (0.82-1.09); PROTHROMBIN TIME (PATIENT) 13.4 SEC (9.98-11.88)
[2016-08-06 15:23] LABS: ALBUMIN 3.3 g/dl (3.4-5.0); CALCIUM 8.3 mg/dL (8.5-10.1); COCKROFT - GAULT 28.594; CREATININE 2.3 mg/dL (0.55-1.02)
[2016-08-06 15:28] LABS: BILIRUBIN,TOTAL 0.3 mg/dL (0.2-1.0); TOT PROT 6.4 g/dl (6.4-8.2); TROPONIN I 0.03 ng/ml (0.00-0.05)
[2016-08-06 19:12] VITALS: BP 188/60; PULSE 84
[2016-08-06 19:35] LABS: TROPONIN I 0.03 ng/ml (0.00-0.05)
--- NOTE | 2016-08-06 19:51 | PDOC ---
*Physical Exam - Vital Signs Last Vital Signs Temp Pulse Resp BP Pulse Ox 98.1 F 84 18 188/60 98 08/06/16 13:16 08/06/16 17:30 08/06/16 17:30 08/06/16 17:30 08/06/16 17:30 - Physical Exam Comments: 08/06/16 19:48 Patient was endorsed to me by Dr. randhawa. Patient is a 75-year-old female who presented with nonspecific shortness of breath and intermittent nausea that she had experienced on numerous previous occasions. Patient was evaluated and the case was discussed with Dr. Griffith of cardiology. He recommended 2 sets of cardiac enzymes and discharged with follow-up if negative. Second set of cardiac enzymes is within normal limit. I discussed the plan of care with the patient and her family and they expressed understanding. Will discharge. ED Treatment Course - LABORATORY CBC & Chemistry Diagram: 08/06/16 14:41 08/06/16 14:41 - ADDITIONAL ORDERS Additional order review: Laboratory Results 08/06/16 08/06/16 08/06/16 18:55 14:50 14:41 INR 1.21 H D VBG pH 7.39 POC VBG pCO2 34.4 L POC VBG pO2 24.0 L Mixed VBG HCO3 20.5 Sodium Potassium Chloride Carbon Dioxide Anion Gap BUN Creatinine Creat Clearance w eGFR Random Glucose Calcium Total Bilirubin AST ALT Alkaline Phosphatase Creatine Kinase 142 CK-MB (CK-2) Troponin I 0.03 B-Natriuretic Peptide Total Protein Albumin 08/06/16 14:41 INR VBG pH POC VBG pCO2 POC VBG pO2 Mixed VBG HCO3 Sodium 142 Potassium 4.4 Chloride 110 H Carbon Dioxide 21 Anion Gap 11 BUN 35 H D Creatinine 2.3 H Creat Clearance w eGFR 20.56 Random Glucose 101 Calcium 8.3 L Total Bilirubin 0.3 D AST 13 L D ALT 12 D Alkaline Phosphatase 48 D Creatine Kinase 150 D CK-MB (CK-2) 2.350 Troponin I 0.03 B-Natriuretic Peptide 1070.51 H Total Protein 6.4 Albumin 3.3 L D 08/06/16 14:41 RBC 3.58 L MCV 93.2 MCHC 32.0 RDW 16.3 H MPV 8.8 Neutrophils % 62.0 D Lymphocytes % 27.2 D Monocytes % 9.2 Eosinophils % 0.4 D Basophils % 1.2 - Medications Given in the ED: ED Medications Discontinued Medications Generic Name Dose Route Start Last Admin Trade Name Jacquelyn PRN Reason Stop Dose Admin Alprazolam 0.25 mg 08/06/16 14:14 08/06/16 14:41 Xanax - PO 08/06/16 14:15 0.25 mg ONCE ONE Administration Sodium Chloride 500 mls @ 500 mls/hr 08/06/16 14:15 08/06/16 14:50 Normal Saline - IV 08/06/16 15:14 500 mls/hr ASDIR STA Administration Ondansetron HCl 4 mg 08/06/16 14:15 08/06/16 14:40 Zofran Injection IVPB 08/06/16 14:16 4 mg ONCE ONE Administration *DC/Admit/Observation/Transfer Diagnosis at time of Disposition: Shortness of breath, Nausea - Discharge Dispostion Disposition: HOME Condition at time of disposition: Stable - Referrals Referrals: Myesha Khan MD [Primary Care Provider] - José Miguel Griffith MD [Staff Physician] - - Patient Instructions Printed Discharge Instructions: DI for Shortness of Breath, DI for Nausea -- Adult
--- NOTE | 2016-08-07 10:33 | EKG ---
Test Reason : Blood Pressure : / mmHG Vent. Rate : 091 BPM Atrial Rate : 091 BPM P-R Int : 142 ms QRS Dur : 072 ms QT Int : 388 ms P-R-T Axes : 020 032 026 degrees QTc Int : 477 ms POOR DATA QUALITY, INTERPRETATION MAY BE ADVERSELY AFFECTED SINUS RHYTHM WITH PREMATURE SUPRAVENTRICULAR COMPLEXES AND WITH OCCASIONAL PREMATURE VENTRICULAR COMPLEXES POSSIBLE LEFT ATRIAL ENLARGEMENT SEPTAL INFARCT , AGE UNDETERMINED ABNORMAL ECG WHEN COMPARED WITH ECG OF 06-JUN-2016 09:26, PREMATURE VENTRICULAR COMPLEXES ARE NOW PRESENT PREMATURE SUPRAVENTRICULAR COMPLEXES ARE NOW PRESENT SEPTAL INFARCT IS NOW PRESENT T WAVE INVERSION NO LONGER EVIDENT IN LATERAL LEADS Confirmed by AMI VILLAGRAN, DAVID ([id number]) on 08/07/2016 10:33:00 AM Referred By: Confirmed By:DAVID MUELLER MD
== END 2016-08-06 20:01 | disposition home or self-care (01) ==
LOC: JER 13:12
PROC: 3E0337Z Introduction of Electrolytic and Water Balance Substance into Peripheral Vein, Percutaneous Approach (ICD-10-PCS; principal; 2016-08-06)
PROC: 3E033GC Introduction of Other Therapeutic Substance into Peripheral Vein, Percutaneous Approach (ICD-10-PCS; 2016-08-06)
DX: J45.909 Unspecified asthma, uncomplicated (principal); E11.9 Type 2 diabetes mellitus without complications; Z79.4 Long term (current) use of insulin; E78.00 Pure hypercholesterolemia, unspecified; F41.9 Anxiety disorder, unspecified
CPT/HCPCS: 36415; 71010-TC; 80053; 82550; 82553; 82803; 83880; 84484; 85025; 85610; 93005; 93010; 99285-25

== ENCOUNTER 2017-01-28 12:39 | Inpatient (IN) | payer OTHER ==
[2017-01-28 12:52] VITALS: BMI 28.7
--- NOTE | 2017-01-28 13:44 | PDOC ---
History of Present Illness - General Chief Complaint: Shortness of Breath Stated Complaint: DIFFICULTY BREATHING Time Seen by Provider: 01/28/17 13:22 - History of Present Illness Initial Comments: 01/28/17 13:45 76 F with h/o HTN, hypercholesterolemia, asthma, anemia, IDDM, and anxiety, presenting to ER with SOB. Pt states that she suddenly felt like it was hard to catch her breath this morning. She was having breakfast at the time. Denies choking. Pt reports waking up in [place] and was feeling well until onset of her symptoms. Pt states that she used a nebulizer treatment with no improvement. However, after about 30 minutes, the symptoms subsided significantly. Pt now reports that she still feels SOB but improved. She denies ever having CP. Denies F/C. Denies leg swelling. Pt states that she has had multiple similar episodes in the past and is actively being followed by cardiology and pulmonology. No etiology has been identified for her symptoms. Pt denies leg swelling. Denies recent travel/immobilization. Denies orthopnea or JOHNSON. Denies h/o DVT/PE. Past History - Past Medical History Allergies/Adverse Reactions: Allergies Allergy/AdvReac Type Severity Reaction Status Date / Time No Known Allergies Allergy Verified 08/06/16 13:22 Home Medications: Ambulatory Orders Dexlansoprazole [Dexilant] 30 mg PO DAILY #30 08/02/15 Insulin Sliding Scale [Novolog Vial Sliding Scale -] 1 vial SQ ACHS units 08/01 Insulin (Levemir) [Levemir Flexpen -] 20 units SQ HS #1 vial 06/12/16 Sodium Bicarbonate - 650 mg PO DAILY #14 tablet 06/12/16 Warfarin Sodium [Coumadin] 7 mg PO HS 08/06/16 Cholecalciferol (Vitamin D3) [Vitamin D3] 1,000 unit PO WEEKLY 01/28/17 Diltiazem Cd [Cardizem Cd -] 80 mg PO TID 01/28/17 Hydralazine HCl [Apresoline -] 100 mg PO TID 01/28/17 Golden/Polymyx B Sulf/Dexameth [Maxitrol Eye Drops -] 1 drop OS Q4H 01/28/17 Anemia: Yes Asthma: Yes Cancer: No Cardiac Disorders: Yes (AF ablation) CVA: No COPD: No CHF: No Dementia: No Diabetes: Yes (IDDM) GI Disorders: No Disorders: Yes (frequency) HTN: Yes Hypercholesterolemia: Yes Liver Disease: No Psychiatric Problems: Yes (DEPRESSION) Seizures: No Thyroid Disease: No - Surgical History Abdominal Surgery: Yes (TUBAL LIG.) Appendectomy: No Cardiac Surgery: No Cholecystectomy: No Lung Surgery: No Neurologic Surgery: No Orthopedic Surgery: Yes (hammer toes,trigger finger) - Family Disease History Family Disease History: Diabetes: Grandparents, [place]: Mother (htn) - Immunization History Immunization Up to Date: Yes - Suicide/Smoking/Psychosocial Hx Smoking Status: Yes Smoking History: Current some day smoker Have you smoked in the past 12 months: Yes Number of Cigarettes Smoked Daily: 1 If you are a former smoker, when did you quit?: 2 MO AGO Information on smoking cessation initiated: No 'Breaking Loose' booklet given: 06/22/15 Hx Alcohol Use: No Drug/Substance Use Hx: No Substance Use Type: None Hx Substance Use Treatment: No Review of Systems - Review of Systems Comments:: 01/28/17 13:50 "GENERAL/CONSTITUTIONAL: No fever or chills. No weakness. HEAD, EYES, EARS, NOSE AND THROAT: No change in vision. No ear pain or discharge. No sore throat. CARDIOVASCULAR: No chest pain RESPIRATORY:+SOB No cough, wheezing, or hemoptysis. GASTROINTESTINAL: No nausea, vomiting, diarrhea or constipation. GENITOURINARY: No dysuria, frequency, or change in urination. MUSCULOSKELETAL: No joint or muscle swelling or pain. No neck or back pain. SKIN: No rash NEUROLOGIC: No headache, vertigo, loss of consciousness, or change in strength/ sensation. ENDOCRINE: No increased thirst. No abnormal weight change. HEMATOLOGIC/LYMPHATIC: No anemia, easy bleeding, or history of blood clots. ALLERGIC/IMMUNOLOGIC: No hives or skin allergy. " *Physical Exam - Vital Signs Last Vital Signs Temp Pulse Resp BP Pulse Ox 98.5 F 102 H 22 169/72 100 01/28/17 12:40 01/28/17 12:40 01/28/17 12:40 01/28/17 12:40 01/28/17 12:40 - Physical Exam Comments: 01/28/17 13:52 "GENERAL: Awake, alert, and fully oriented, in no acute distress HEAD: No signs of trauma EYES: PERRLA, EOMI, sclera anicteric, conjunctiva clear ENT: Auricles normal inspection, hearing grossly normal, nares patent, oropharynx clear without exudates. Moist mucosa NECK: Nontender, no stepoffs, Normal ROM, supple, no lymphadenopathy, JVD, or masses LUNGS: Breath sounds equal, clear to auscultation bilaterally. No wheezes, and no crackles HEART: Regular rate and rhythm, normal S1 and S2, no murmurs, rubs or gallops ABDOMEN: Soft, nontender, normoactive bowel sounds. No guarding, no rebound. No masses EXTREMITIES: Normal range of motion, no edema. No clubbing or cyanosis. No cords, erythema, or tenderness NEUROLOGICAL: Cranial nerves II through XII intact. 5/5 strength and sensation in all extremities, Normal speech, normal gait SKIN: Warm, Dry, normal turgor, no rashes or lesions noted. " ED Treatment Course - LABORATORY CBC & Chemistry Diagram: 01/29/17 05:05 01/29/17 05:05 - RADIOLOGY Radiology Studies Ordered: Category Date Time Status CHEST PA & LAT [RAD] Stat Radiology 01/28/17 13:33 Ordered Medical Decision Making - Medical Decision Making 01/28/17 13:52 76 F with transient episode of SOB, now resolved. Vitals normal. Will evaluate for ACS, though unlikely as pt never had chest pain. Pt with clear lung exam and no evidence of reactive airway disease. No signs of volume overload or infectious process. Pt with no clinical signs/symptoms of DVT/PE. However, given tachycardia and persistent symptoms, will need to r/o PE as well. - Labs, trop, BNP, Ddimer - CXR - EKG 01/28/17 17:39 CBC, BMP 01/28/17 14:00 01/28/17 14:00 Trop negative. D dimer pending. Labs notable for worsening renal insufficiency with Cr bump from 2 to 3. Given renal insufficiency, pt cannot have CT chest with IV contrast. Consider V/ Q scan during admission if dimer positive. Will admit to hospitalist. *DC/Admit/Observation/Transfer Diagnosis at time of Disposition: Shortness of breath, CKD stage 4 due to type 2 diabetes mellitus - Discharge Dispostion Condition at time of disposition: Improved Admit: Yes - Referrals - Patient Instructions - Post Discharge Activity - Attestations Physician Attestion: 01/28/17 17:53 I, Dr. Prince Canchola MD, attest that this document has been prepared under my direction and personally reviewed by me in its entirety. I further attest, that it accurately reflects all work, treatment, procedures and medical decision -making performed by me.
[2017-01-28 14:29] LABS: EOSINOPHIL 0.3 % (0-4.5); MCH 29.9 pg (25.7-33.7); MEAN CELL VOLUME 93.4 fl (80-96); MEAN PLT VOLUME 9.4 fl (7.5-11.1); NEUTROPHILS 70.8 % (42.8-82.8); PLATELET COUNT 214 K/MM3 (134-434); RDW 17.7 % (11.6-15.6); WHITE BLOOD COUNT 7.5 K/mm3 (4.0-10.0)
[2017-01-28 14:47] LABS: INR 2.5 (0.82-1.09); PROTHROMBIN TIME (PATIENT) 28.3 SEC (9.98-11.88)
[2017-01-28 14:50] LABS: ACTIVATED PTT 34.1 SECONDS (26.9-34.4)
[2017-01-28 15:20] LABS: ANION GAP 7 (8-16); BILIRUBIN,TOTAL 0.4 mg/dL (0.2-1.0); CALCIUM 8.3 mg/dL (8.5-10.1); CO2 25 mmol/L (21-32); CREATININE 3.3 mg/dL (0.55-1.02); SGPT/ALT 16 U/L (12-78)
[2017-01-28 15:28] LABS: ALK PHOS 58 U/L (45-117); THYROID STIMULATING HORMONE 0.76 uIU/ml (0.358-3.74); TOT PROT 6.4 g/dl (6.4-8.2); TROPONIN I 0.02 ng/ml (0.00-0.05)
[2017-01-28 15:41] LABS: GLUCOSE,RANDOM 315 mg/dL (74-106); MAGNESIUM 1.8 mg/dL (1.8-2.4)
[2017-01-28 15:42] LABS: CPK 153 IU/L (26-192); SGOT/AST 18 U/L (15-37)
[2017-01-28] MEDS ORDERED: SODIUM CHLORIDE 500 ML IV STA ×2 (17:40→18:20)
--- NOTE | 2017-01-28 17:59 | PN ---
Teaching Attending Note Name of Resident: Lisa Ge ATTENDING PHYSICIAN STATEMENT I saw and evaluated the patient. I reviewed the resident's note and discussed the case with the resident. I agree with the resident's findings and plan as documented. SUBJECTIVE:76yo F with PMH aflutter s/p ablation, HTN, DM, dyslipidemia presented to the ER with dyspnea at rest and palpitations. as per daughter whom is present at bedside she has been having infrequent flares of dyspnea at rest. typically starts after leg cramping or being stressed about her aging and becomes short of breath. she has had extensive pulmonary workup to determine the cause and was told that she had COPD (as per daughter she does not agree with diagnosis but was only given that because shes old and use to smoke). has also had a holter monitor earlier this year to evaluate if she had episodes of a flutter which was negative however she did not have any episodes during this time. states she saw her media aid last month and c/o pedal edema and was started on lasix. was to follow up today but did not make it to the appointment. she does admit to frequent urination and constantly feeling dehydrated. currently patient is asymptomatic. denies CP, SOB, fever, chills, cough, hemoptysis, N/V/C/D, no recent travel or long trips. daughter states she been increasingly more sedentary this past year. as per daughter sugars are typically controlled. OBJECTIVE: Last Vital Signs Temp Pulse Resp BP Pulse Ox 98.5 F 102 H 22 169/72 100 01/28/17 12:40 01/28/17 12:40 01/28/17 12:40 01/28/17 12:40 01/28/17 13:20 General lethargic HEENT dry mucosa CV S1 S2 tachycardic Lungs CTA B/L no wheezing/rales/rhonchi Abdomen soft NT/ND Extremities trace pitting edema ASSESSMENT AND PLAN: 76yo F with PMH aflutter s/p ablation, HTN, DM, CKD, COPD and dyslipidemia presented to the ER with dyspnea and gound to have JOSE. 1. Acute on CKD-likely dehydration and medication induced. Baseline Cr 2.5-2.8. will hold lasix. give 1L NS. check urine studies, renal u/s. check for UA to r/ o infection however less likely. on bicarb 2. Dyspnea- likely anxiety related. however possible arrhythmia related. will place on cardiac monitoring to see if abnormal rhythms. CXR clear of acute infiltrate. other possibility can be PE. however low concern given risk factors. unable to do CTPE due to kidney function. will check d-dimer. is already anticoagulated. cont nebs prn. supplemental oxygen as needed to maintain spO2 >90%. also RDW is elevated can be iron deficient. last check here was 05/2016. will repeat iron studies. TSH WNL 3. HTN- above goal. will re-start home medications. monitor 4. DM- check A1c. cont levemir, iss 5. aflutter s/p ablation- on coumadin. cont coumadin. monitor INR 6. DVT ppx- therapeutic INR.
--- NOTE | 2017-01-28 18:31 | HP ---
CHIEF COMPLAINT: SOB PCP: Dr. Khan Cube Cutter: Dr. Griffith HISTORY OF PRESENT ILLNESS: Patient is a 76 year old female with a PMHx of HTN, IDDMII, COPD/Asthma, anxiety , A.Flutter s/p Ablation, A.fib on Warfarin, CKD stage 4, GERD who presents today complaining of shortness of breath associated with heart palpitations. Patient states this morning she was feeling short of breath and decided to use her nebulizer. After her nebulizer treatment patient started feeling "shaky" with heart palpitations. Patient began to hyperventilate and her nursing aid took her vitals and called her daughter who told them to call 911. Patient's daughter at bedside who reports that patient has had several episodes of shortness of breath in the last year and had extensive workup by her bus info consultant and corporate safety manager, including holter monitor (which did not show any arrythmias), PFT's, catheterizations and eventually diagnosed her with COPD. However, they do not agree that she has COPD. Patient's daughter also reports that her legs start to cramp bilaterally when patient is upset, stressed , or anxious and then she begins to hyperventilate. Patient in the last month followed up with her Head Strength And Conditioning Coach, Dr. To, for edema of the lower extremities and placed her on Lasix. In the last few days she does admit to having frequency associated with dehydration. She was suppose to follow up with him today but was unable to do so. Otherwise, patient denies chest pain, fever, chills, nausea, vomiting, diarrhea, constipation, abdominal pain, dysuria , cough, hemoptysis, hematuria. Patient denies any recent travel or long trips. Patient denies any trauma or injury. Patient's daughter does admit that she sits for long period of time. Patient denies taking influenza and pneumonia vaccine. She denies sick contacts. She denies any history of intubations. ER course was notable for: (1) 1 Liter Bolus of IV NS (2) Troponing negative x1 (3) Chest X-ray negative Recent Travel: Denies PAST MEDICAL HISTORY: HTN, IDDMII, COPD/ASTHMA, A.Flutter s/p Ablation, A.fib on Warfarin, CKD stage 4, anxiety PAST SURGICAL HISTORY: I&D for genito/gluteal abscess (2016); s/p ablation for aflutter (2013), Right heart catheterization (03/2015) Social History: Smokin cigarettes per day for 60+ years. Alcohol: Occasionally Drugs: Denies Family History: Mother- HTN Allergies: No Known Allergies Allergy (Verified 08/06/16 13:22) HOME MEDICATIONS: Home Medications Medication Instructions Recorded Dexlansoprazole [Dexilant] 30 mg PO DAILY #30 08/02/15 Insulin Sliding Scale [Novolog 1 vial SQ ACHS units 08/02/15 Vial Sliding Scale -] Insulin (Levemir) [Levemir Flexpen 20 units SQ HS #1 vial 06/12/16 -] Sodium Bicarbonate - 650 mg PO DAILY #14 tablet 06/12/16 Warfarin Sodium [Coumadin] 7 mg PO HS 08/06/16 Cholecalciferol (Vitamin D3) 1,000 unit PO WEEKLY 01/28/17 [Vitamin D3] Diltiazem Cd [Cardizem Cd -] 80 mg PO TID 01/28/17 Hydralazine HCl [Apresoline -] 100 mg PO TID 01/28/17 REVIEW OF SYSTEMS CONSTITUTIONAL: generalized weakness Absent: fever, chills, diaphoresis, malaise, loss of appetite, weight change HEENT: Absent: rhinorrhea, nasal congestion, throat pain, throat swelling, difficulty swallowing, mouth swelling, ear pain, eye pain, visual changes CARDIOVASCULAR: palpitations Absent: chest pain, syncope, irregular heart rate, lightheadedness, peripheral edema RESPIRATORY: shortness of breath, dyspnea with exertion Absent: cough, orthopnea, wheezing, stridor, hemoptysis GASTROINTESTINAL: Absent: abdominal pain, abdominal distension, nausea, vomiting, diarrhea, constipation, melena, hematochezia GENITOURINARY: frequency Absent: dysuria, urgency, hesitancy, hematuria, flank pain, genital pain MUSCULOSKELETAL: Bilateral leg cramping Absent: myalgia, arthralgia, joint swelling, back pain, neck pain SKIN: Absent: rash, itching, pallor HEMATOLOGIC/IMMUNOLOGIC: Absent: easy bleeding, easy bruising, lymphadenopathy, frequent infections ENDOCRINE: Absent: unexplained weight gain, unexplained weight loss, heat intolerance, cold intolerance NEUROLOGIC: Absent: headache, focal weakness or paresthesias, dizziness, unsteady gait, seizure, mental status changes, bladder or bowel incontinence PSYCHIATRIC: anxiety Absent: depression, suicidal or homicidal ideation, hallucinations. PHYSICAL EXAMINATION Vital Signs - 24 hr 01/28/17 01/28/17 12:40 13:20 Temperature 98.5 F Pulse Rate 102 H Respiratory 22 Rate Blood Pressure 169/72 O2 Sat by Pulse 100 100 Oximetry (%) GENERAL: Awake, drowsy, responds to verbal commands and in no acute distress. HEAD: Normal with no signs of trauma. EYES: Pupils equal, round and reactive to light, extraocular movements intact, sclera anicteric, conjunctiva clear. EARS, NOSE, THROAT: Oropharynx clear without exudates. Dry mucous membranes NECK: Supple without lymphadenopathy. (-) Bruits LUNGS: Breath sounds equal, clear to auscultation bilaterally. No wheezes, and no crackles. No accessory muscle use. HEART: Regular rate and rhythm, normal S1 and S2 without murmur, rub or gallop. ABDOMEN: Soft, nontender, not distended, normoactive bowel sounds, no guarding, no rebound, no masses. MUSCULOSKELETAL: No CVA tenderness. UPPER EXTREMITIES: No peripheral edema. LOWER EXTREMITIES: Trace pitting edema bilaterally NEUROLOGICAL: Normal speech. No facial droop. Sensory intact. PSYCHIATRIC: Cooperative. Good eye contact. Appropriate mood and affect. SKIN: Warm, dry, normal turgor, no rashes or lesions noted, normal capillary refill. Laboratory Results - last 24 hr 01/28/17 01/28/17 01/28/17 14:00 14:00 14:00 WBC 7.5 RBC 3.94 Hgb 11.8 D Hct 36.8 MCV 93.4 MCH 29.9 MCHC 32.0 RDW 17.7 H Plt Count 214 MPV 9.4 Neutrophils % 70.8 Lymphocytes % 19.6 D Monocytes % 8.3 Eosinophils % 0.3 Basophils % 1.0 PT with INR 28.30 H INR 2.50 H D PTT (Actin FS) 34.1 Sodium Potassium Chloride Carbon Dioxide Anion Gap BUN Creatinine Creat Clearance w eGFR Random Glucose Calcium Magnesium Cancelled Total Bilirubin AST ALT Alkaline Phosphatase Creatine Kinase Cancelled Creatine Kinase Index CK-MB (CK-2) Troponin I Cancelled B-Natriuretic Peptide Cancelled Total Protein Albumin TSH 01/28/17 14:00 WBC RBC Hgb Hct MCV MCH MCHC RDW Plt Count MPV Neutrophils % Lymphocytes % Monocytes % Eosinophils % Basophils % PT with INR INR PTT (Actin FS) Sodium 138 Potassium 4.7 Chloride 106 Carbon Dioxide 25 Anion Gap 7 L BUN 35 H Creatinine 3.3 H D Creat Clearance w eGFR 13.52 Random Glucose 315 H* D Calcium 8.3 L Magnesium 1.8 Total Bilirubin 0.4 D AST 18 D ALT 16 D Alkaline Phosphatase 58 D Creatine Kinase 153 Creatine Kinase Index 1.5 CK-MB (CK-2) 2.295 Troponin I 0.02 B-Natriuretic Peptide 409.67 Total Protein 6.4 Albumin 3.0 L TSH 0.76 D Chest X-Ray (01/28/17): No acute pathology. No infiltrates, consolidation, pneumothorax. ASSESSMENT/PLAN: Patient is a 76 year old female who presented with palpitations and shortness of breath. Patient was found to have JOSE and admitted for further monitoring and management. Acute on Chronic Kidney Disease Stage IV -Likely secondary to recent use of Lasix -Baseline of 2.5-2.8 -U/A, Urine electrolyes and Kidney U/S ordered -1 Liter of NS given in ED and will resume IV NS @75mls/hr -Continue Sodium Bicarb 650mg daily Shortness of breath w/ hx of COPD -Likely secondary to anxiety. Rule out cardiology etiology vs PE. Very low suspicion for PE as patient is already on anticoagulation -Cardiac monitoring to rule out any arrythmias -D-dimer sent to rule out PE. No CTA due to JOSE -Chest X-Ray negative -Duo-Neb PRN -02 supplementations to maintain 02 saturation >90& -Iron studies ordered to rule out anemia -ECHO ordered -TSH ordered and wnl HTN -Controlled -Continue home medication Hydralazine 100mg TID -Continue to monitor BP IDDMII -A1C ordered with last one June 2015 -[facility] -Levemir 20units HS A.flutter s/p Ablation and history of A.fib -Continue Coumadin 6mg daily -Continue Diltiazem 180mg BID -Cardiac monitoring -Daily INR. Right now therapeutic GERD -Continue Protonix 40mg daily F/E/N -IV NS @75mls/hr -Hypomagnesemia. replete with 2mg IV -Renal diet Prophylaxis -High risk. Continue Warfarin 6mg daily -Protonix 40mg daily for GI -Deconditioning: Physical therapy to avoid Disposition -Full code -Will need to monitor overnight for any arrythmias. Will continue IV fluids for JOSE Visit type - Emergency Visit Emergency Visit: Yes ED Registration Date: 01/28/17 Care time: The patient presented to the Emergency Department on the above date and was hospitalized for further evaluation of their emergent condition. - New Patient This patient is new to me today: Yes Date on this admission: 01/28/17 - Critical Care Critical Care patient: No
[2017-01-28] MEDS ORDERED: SODIUM CHLORIDE 1,000 ML IV SCH (18:45)
[2017-01-28 19:40] LABS: TROPONIN I 0.03 ng/ml (0.00-0.05)
[2017-01-28] MEDS ORDERED: MAGNESIUM SULF 50% (8.12 MEQ/2 ML-1 GM VIAL) IVPB ONE (20:13)
[2017-01-28] MEDS ORDERED: ALBUTEROL SO4 2.5/IPRATROPIUM 0.5 INH SOL 3 ML VIAL.NEB. NEB PRN (20:30)
[2017-01-28] MEDS ORDERED: MAGNESIUM SULF 50% (8.12 MEQ/2 ML-1 GM VIAL) ONE (20:50)
[2017-01-28] MEDS ORDERED: INSULIN DETEMIR 100 UNITS/ML MDV SQ SCH (22:00)
[2017-01-28] MEDS ORDERED: WARFARIN SODIUM 7 MG PO SCH (22:00)
[2017-01-28] MEDS: hydrALAZINE HCL 50 MG TABLET (FP) PO SCH (23:46)
[2017-01-28] MEDS ORDERED: INSULIN (NOVOLOG) ASPART 100 UNITS/ML 10ML VIAL ONE (23:50)
[2017-01-28] MEDS: INSULIN SLIDING SCALE (NOVOLOG) 1 VIAL SQ SCH (23:51)
[2017-01-29] MEDS: NEO/POLYMYX B SULF/DEXAMETH OPHTHALMIC 5ML BOTTLE OS SCH ×3 (06:11→13:50)
[2017-01-29] MEDS: hydrALAZINE HCL 50 MG TABLET (FP) PO SCH ×2 (06:15→13:50)
[2017-01-29] MEDS: INSULIN SLIDING SCALE (NOVOLOG) 1 VIAL SQ SCH ×2 (06:20→11:33)
[2017-01-29 07:05] LABS: MCH 30.5 pg (25.7-33.7); MCHC 32.9 g/dl (32.0-36.0); MEAN CELL VOLUME 92.7 fl (80-96); MEAN PLT VOLUME 9.1 fl (7.5-11.1); PLATELET COUNT 181 K/MM3 (134-434); RDW 16.6 % (11.6-15.6)
[2017-01-29 07:38] LABS: ANION GAP 7 (8-16); CALCIUM 8.1 mg/dL (8.5-10.1); CO2 25 mmol/L (21-32); GLUCOSE,RANDOM 58 mg/dL (74-106); MAGNESIUM 2.2 mg/dL (1.8-2.4)
[2017-01-29] MEDS ORDERED: SODIUM BICARBONATE 650 MG TABLET PO SCH (10:00)
[2017-01-29] MEDS ORDERED: PANTOPRAZOLE 40 MG TABLET (FP) PO SCH (10:00)
[2017-01-29 10:02] LABS: FERRITIN 48.589 ng/ml (6.9-282.5)
--- NOTE | 2017-01-29 12:22 | CON.CARD ---
Consult Consult Specialty:: Cardiology Referred by:: Hospitalist Reason for Consultation:: SOB, palpitations - History of Present Illness Chief Complaint: SOB, palpitations History of Present Illness: 75 year old woman with a history of hypertension, hyperlipidemia, heavy smoking , PAD with claudication, diabetes type II, atrial flutter status post ablation several years ago, followed by Atrial fibrillation more recently, DVT 2016, remains on full AC for Afib, CKD, severe depression, chronic fatigue, chronic dyspnea on exertion of unclear etiology, admitted with an episode of sudden onset worsening sob yesterday. pt states that she was approximately at her baseline when she felt more sob yesterday, she then used her nebulizer but after using it felt palpitations and became very anxious and thus called EMS. Her SOB had improved to baseline after the nebulizer and her palpitations subsided but she still felt anxious on the way to the ER. On presentation noted to be in NSR with SaO2 100% on room air. She was admitted to observe for a possible acute cardiac or pulmonary event that may have causes this as well as for ADILENE on CKD. Pt was seen and examined this am in nad. She states that she is back to her baseline. no further symptoms overnight. No chest pain, no pnd, orthopnea, or LE edema. no lightheadedness, dizziness, syncope, or near syncope. - History Source History Provided By: Patient, Medical Record Limitations to Obtaining History: No Limitations - Past Medical History [employer]: Yes: Peripheral Neuropathy Cardio/Vascular: Yes: AFIB, CHF, HTN, Hyperlipdemia, Other (Atrial flutter s/p ablation, PAD) Pulmonary: Yes: COPD Renal/: Yes: Renal Inusuff (stage 4), Other (Overactive Bladder) Psych: Yes: Depression Endocrine: Yes: Diabetes Mellitus (initially on oral agents, now on insulin) - Past Surgical History Past Surgical History: Yes: Colonoscopy (polyps a few years ago), Hysterectomy ( fibroids), Tubal Ligation, Upper Endoscopy (neg 1+ yrs ago) - Alcohol/Substance Use Hx Alcohol Use: No - Smoking History Smoking history: Current some day smoker Have you smoked in the past 12 months: Yes Aproximately how many cigarettes per day: 1 If you are a former smoker, when did you quit?: 2 MO AGO - Social History Usual Living Arrangement: With Child ADL: Family Assistance History of Recent Travel: No Home Medications - Allergies Allergies/Adverse Reactions: Allergies Allergy/AdvReac Type Severity Reaction Status Date / Time No Known Allergies Allergy Verified 08/06/16 13:22 - Home Medications Home Medications: Ambulatory Orders Dexlansoprazole [Dexilant] 30 mg PO DAILY #30 08/02/15 Insulin Sliding Scale [Novolog Vial Sliding Scale -] 1 vial SQ ACHS units 08/01 Insulin (Levemir) [Levemir Flexpen -] 20 units SQ HS #1 vial 06/12/16 Sodium Bicarbonate - 650 mg PO DAILY #14 tablet 06/12/16 Warfarin Sodium [Coumadin] 7 mg PO HS 08/06/16 Cholecalciferol (Vitamin D3) [Vitamin D3] 1,000 unit PO WEEKLY 01/28/17 Diltiazem Cd [Cardizem Cd -] 80 mg PO TID 01/28/17 Hydralazine HCl [Apresoline -] 100 mg PO TID 01/28/17 Golden/Polymyx B Sulf/Dexameth [Maxitrol Eye Drops -] 1 drop OS Q4H 01/28/17 Family Disease History - Family Disease History Family Disease History: Diabetes: Grandparent, Mother, Sister (lung cancer), CA : Sister Review of Systems - Review of Systems Constitutional: reports: Lethargy, Loss of Appetite, Malaise, Weakness. denies : No Symptoms, Chills, Diaphoresis, Fever, Night Sweats, Unintentional Wgt. Loss , Other Eyes: denies: No Symptoms, Blind Spots, Blurred Vision, Double Vision, Eye Pain , Floaters, Photophobia, Recent Change in Vision, Other HENT: denies: No Symptoms, Difficult Swallowing, Ear Discharge, Ear Pain, Epistaxis, Gingival Bleeding, Hearing Loss, Mouth Swelling, Nasal Congestion, Ocular Prosthesis, Throat Pain, Toothache, Ringing in Ears, Other Neck: denies: No Symptoms, Decreased ROM, Lumps, Pain on Movement, Stiffness, Swollen Glands, Tenderness, Other Cardiovascular: reports: Palpitations, Shortness of Breath. denies: No Symptoms , Chest Pain, Edema, Other Respiratory: reports: Exercise Intolerance, SOB, SOB on Exertion. denies: No Symptoms, Cough, Hemoptysis, Orthopnea, PND, Snoring, Wheezing, Other Gastrointestinal: denies: No Symptoms, Abdominal Pain, Bloating, Constipation, Diarrhea, Dysphagia, Indigestion, Melena, Nausea, Rectal Bleeding, Vomiting, Vomiting Blood, Other Genitourinary: denies: No Symptoms, Burning, Discharge, Dysuria, Flank Pain, Frequency, Hematuria, Incontinence, Lesions, Menses, Pain, Testicular Mass, Testicular Pain, Testicular Swelling, Urgency, Vaginal Bleeding, Other Breasts: denies: No Symptoms Reported, See HPI, Breast Implants, Discharge from Nipple, Lumps, Pain, Skin Changes, Other Musculoskeletal: denies: No Symptoms, Back Pain, Crepitus, Decreased ROM, Extremity Pain, Joint Pain, Joint Swelling, Muscle Pain, Muscle Cramps, Muscle Weakness, Other Integumentary: denies: No Symptoms, Blister, Bruising, Change in Color, Eczema, Erythema, Incision, Lesions, Lump, Pallor, Pruritis, Rash, Wound, Other Neurological: denies: No Symptoms, Change in LOC, Change in Speech, Confusion, Dizziness, Headache, Incoordination, Numbness, Parasthesia, Pre-Existing Deficit , Seizure, Syncope, Tremors, Unsteady Gait, Weakness, Other Endocrine: denies: No Symptoms, Excessive Sweating, Flushing, Increased Hunger, Increased Thirst, Intolerance to Cold, Intolerance to Heat, Unexplained Weight Gain, Unexplained Weight Loss, Other Hematology/Lymphatic: denies: No Symptoms, Easily Bruised, Excessive Bleeding, Swollen Glands, Other Psychiatric: reports: Altered Sleep Pattern, Anxiety, Depression, Panic. denies : No Symptoms, Hallucinations, Paranoia, Suicidal, Other - Risk Factors Known Risk Factors: Yes: Age, Hypercholesterolemia, Hypertension, Physical Inactivity, Smoking Vital Signs: Vital Signs Temperature 98.6 F 01/29/17 06:00 Pulse Rate 68 01/29/17 06:00 Respiratory Rate 20 01/29/17 09:00 Blood Pressure 141/55 01/29/17 06:00 O2 Sat by Pulse Oximetry (%) 96 01/29/17 09:00 Constitutional: Yes: Well Nourished, No Distress, Calm Eyes: Yes: WNL, Conjunctiva Clear, EOM Intact, PERRL HENT: Yes: WNL, Atraumatic, Normocephalic Neck: Yes: WNL, Supple, Trachea Midline Respiratory: Yes: WNL, Regular, CTA Bilaterally. No: On Nasal O2, Rales, Rhonchi, SOB, Wheezes Gastrointestinal: Yes: WNL, Normal Bowel Sounds, Soft. No: Distention, Tenderness Renal/: Yes: WNL Cardiovascular: Yes: WNL, Regular Rate and Rhythm. No: Bradycardia, Tachycardia , Pulse Irregular, Gallop, Rub, Varicosities JVD: No Carotid Bruit: No PMI: Non-Displaced Heart Sounds: Yes: S1, S2. No: Split S2, S3, S4, Clicks, Gallop, Rub, Bruit Murmur: No: Systolic Murmur, Diastolic Murmur Musculoskeletal: Yes: WNL Extremities: Yes: WNL Edema: No Peripheral Pulses WNL: Yes Peripheral Pulses: 2+ Left Doralis Pedis, 2+ Right Dorsalis Pedis Integumentary: Yes: WNL Neurological: Yes: WNL, Alert, Oriented, Cran Nerves II-XII Intact ...Motor Strength: WNL Psychiatric: Yes: Alert, Oriented, Other (Depression) - Other Data Labs, Other Data: CBC, BMP 01/29/17 05:05 01/29/17 05:05 INR, PTT INR 2.50 (0.82-1.09) H D 01/28/17 14:00 Troponin, BNP 01/28/17 01/28/17 01/28/17 14:00 14:00 18:40 Troponin I Cancelled 0.02 0.03 B-Natriuretic Peptide Cancelled 409.67 Troponin, BNP 01/28/17 01/28/17 01/28/17 14:00 14:00 18:40 Troponin I Cancelled 0.02 0.03 B-Natriuretic Peptide Cancelled 409.67 EKG-NSR 93bpm, possible septal infarct, LAD, nonspecific ST abnl Echo: Pending, Report Reviewed Imaging - Results Chest X-ray: Report Reviewed, Image Reviewed EKG: Report Reviewed, Image Reviewed Other: Report Reviewed, Image Reviewed (tele-NSR, very brief self limited PSVT) Assessment/Plan 75 year old woman with a history of hypertension, hyperlipidemia, heavy smoking , PAD with claudication, diabetes type II, atrial flutter status post ablation several years ago, followed by Atrial fibrillation more recently, DVT 2016, remains on full AC for Afib, CKD, severe depression, chronic fatigue, chronic dyspnea on exertion of unclear etiology, admitted with an episode of sudden onset worsening sob yesterday. pt states that she was approximately at her baseline when she felt more sob yesterday, she then used her nebulizer but after using it felt palpitations and became very anxious and thus called EMS. Her SOB had improved to baseline after the nebulizer and her palpitations subsided but she still felt anxious on the way to the ER. On presentation noted to be in NSR with SaO2 100% on room air. She was admitted to observe for a possible acute cardiac or pulmonary event that may have causes this as well as for ADILENE on CKD. Pt was seen and examined this am in nad. She states that she is back to her baseline. no further symptoms overnight. No chest pain, no pnd, orthopnea, or LE edema. no lightheadedness, dizziness, syncope, or near syncope. SOB-baseline sob chronic due to combination of COPD, Smoking, Depression, Anxiety but overall has been of uncertain etiology -pt is back to baseline -presume component of anxiety superimposed on above factors led to this event -unlikely PE, although pt has a history of DVT and has been subtherapeutic on coumadin in the recent past, she has been therapeutic for the past few weeks and INR therapeutic on admission, and as symptoms have resolved and SaO2 normal on room air and Ddimer normal this is very unlikely -pulmonary f/up as outpatient Palpitations-after using nebulizer yesterday, h/o aflutter, pafib -could have been episode of Pafib as this is a known condition for her -currently NSR with what looks like short PSVT on tele -cont home medical regimen -will plan for another event monitor as outpatient to further evaluate afib burden and if correlates with symptoms -cont coumadin at current dose HTN-above goal on admission -cont home medical regimen ADILENE on CKD -improved with IVF -nephrology f/up as outpatient Pt is acceptable for discharge home from a cardiac standpoint with plan for close outpatient f/up
--- NOTE | 2017-01-29 12:54 | EKG ---
Test Reason : Blood Pressure : / mmHG Vent. Rate : 093 BPM Atrial Rate : 093 BPM P-R Int : 152 ms QRS Dur : 078 ms QT Int : 360 ms P-R-T Axes : 054 -41 077 degrees QTc Int : 447 ms NORMAL SINUS RHYTHM LEFT AXIS DEVIATION SEPTAL INFARCT (CITED ON OR BEFORE 06-AUG-2016) ABNORMAL ECG WHEN COMPARED WITH ECG OF 06-AUG-2016 14:01, PREMATURE VENTRICULAR COMPLEXES ARE NO LONGER PRESENT PREMATURE SUPRAVENTRICULAR COMPLEXES ARE NO LONGER PRESENT QRS AXIS SHIFTED LEFT Confirmed by DAVID MUELLER MD ([id number]) on 01/29/2017 12:54:37 PM Referred By: Confirmed By:DAVID MUELLER MD
--- NOTE | 2017-01-29 13:47 | DS ---
Physical Exam: SUBJECTIVE: Patient seen and examined. Feeling much better. No more episodes of shortness of breath. No chest pain OBJECTIVE: Vital Signs Period Temp Pulse Resp BP Sys/Renee Pulse Ox Last 24 Hr 98.3 F-98.9 F 68-97 20-20 131-163/55-72 96-99 PHYSICAL EXAM GEN: AAOx3, NAD, Lying comfortably HEENT: PERRLA, EOMi CV: S1, S2, RRR, SInus LUNG: CTABL ABD: Soft, NT, ND, normoactive BS MSK: No edema, no erythema LABS Laboratory Last Values WBC 6.0 K/mm3 (4.0-10.0) 01/29/17 05:05 RBC 3.57 M/mm3 (3.60-5.2) L 01/29/17 05:05 Hgb 10.9 GM/dL (10.7-15.3) 01/29/17 05:05 Hct 33.1 % (32.4-45.2) 01/29/17 05:05 MCV 92.7 fl (80-96) 01/29/17 05:05 MCH 30.5 pg (25.7-33.7) 01/29/17 05:05 MCHC 32.9 g/dl (32.0-36.0) 01/29/17 05:05 RDW 16.6 % (11.6-15.6) H 01/29/17 05:05 Plt Count 181 K/MM3 (134-434) 01/29/17 05:05 MPV 9.1 fl (7.5-11.1) 01/29/17 05:05 Neutrophils % 70.8 % (42.8-82.8) 01/28/17 14:00 Lymphocytes % 19.6 % (8-40) D 01/28/17 14:00 Monocytes % 8.3 % (3.8-10.2) 01/28/17 14:00 Eosinophils % 0.3 % (0-4.5) 01/28/17 14:00 Basophils % 1.0 % (0-2.0) 01/28/17 14:00 PT with INR 28.30 SEC (9.98-11.88) H 01/28/17 14:00 INR 2.50 (0.82-1.09) H D 01/28/17 14:00 PTT (Actin FS) 34.1 SECONDS (26.9-34.4) 01/28/17 14:00 D-Dimer < 200 ng/ml (<200-235) 01/28/17 18:40 Sodium 142 mmol/L (136-145) 01/29/17 05:05 Potassium 4.2 mmol/L (3.5-5.1) 01/29/17 05:05 Chloride 110 mmol/L (98-107) H 01/29/17 05:05 Carbon Dioxide 25 mmol/L (21-32) 01/29/17 05:05 Anion Gap 7 (8-16) L 01/29/17 05:05 BUN 32 mg/dL (7-18) H 01/29/17 05:05 Creatinine 3.0 mg/dL (0.55-1.02) H 01/29/17 05:05 Creat Clearance w eGFR 13.52 (>60) 01/28/17 14:00 POC Glucometer 128 UNITS (80-120) 01/29/17 11:32 Random Glucose 58 mg/dL (74-106) L D 01/29/17 05:05 Hemoglobin A1c % 8.0 % (4.8-6.0) H D 01/28/17 14:00 Calcium 8.1 mg/dL (8.5-10.1) L 01/29/17 05:05 Magnesium 2.2 mg/dL (1.8-2.4) D 01/29/17 05:05 Ferritin 48.589 ng/ml (6.9-282.5) 01/29/17 05:05 Total Bilirubin 0.4 mg/dL (0.2-1.0) D 01/28/17 14:00 AST 18 U/L (15-37) D 01/28/17 14:00 ALT 16 U/L (12-78) D 01/28/17 14:00 Alkaline Phosphatase 58 U/L (45-117) D 01/28/17 14:00 Creatine Kinase 104 IU/L (26-192) 01/28/17 18:40 Creatine Kinase Index 1.5 % (0.0-5.0) 01/28/17 14:00 CK-MB (CK-2) 2.295 ng/mL (0.5-3.6) 01/28/17 14:00 Troponin I 0.03 ng/ml (0.00-0.05) 01/28/17 18:40 B-Natriuretic Peptide 409.67 pg/ml (5-450) 01/28/17 14:00 Total Protein 6.4 g/dl (6.4-8.2) 01/28/17 14:00 Albumin 3.0 g/dl (3.4-5.0) L 01/28/17 14:00 TSH 0.76 uIU/ml (0.358-3.74) D 01/28/17 14:00 HOSPITAL COURSE: Date of Admission:01/28/17 Date of Discharge: 01/29/17 Briefly, Ms. Lorenzo is a 76yo F with a PMHx of HTN, IDDMII, COPD/Asthma, anxiety , A.Flutter s/p Ablation, A.fib on Warfarin, CKD stage 4, GERD who presents today complaining of shortness of breath associated with heart palpitations. It was associated with feelings of anxiety. It improved temporarily with nebulizer treatments. Patient's daughter at bedside who reports that patient has had several episodes of shortness of breath in the last year and had extensive workup by her field insurance sales manager and brusher operator, including holter monitor (which did not show any arrythmias), PFT's, catheterizations and eventually diagnosed her with COPD. However, they do not agree that she has COPD. Patient's daughter also reports that her legs start to cramp bilaterally when patient is upset, stressed, or anxious and then she begins to hyperventilate. On admission, the patient had stable vitals without desaturation. Troponins were negative. D-dimer was negative. CXR showed no acute cardiopulmonary process. She was found to have a Cr of 3.3. Patient in the last month followed up with her Cooperative Education Director, Dr. To, for edema of the lower extremities and placed her on Lasix. In the last few days she does admit to having frequency associated with dehydration. She was suppose to follow up with him today but was unable to do so. With IV fluids her Creatinine improved to 3.0, which is around the patient's baseline. A call was place to Dr To who recommended that the patient stop her Lasix and followup with him as an outpatient. Cardiology saw the patient and no arryhtmias were detected on telemetry monitoring. The patient was asymptomatic upon discharge. The patient is aware of the hospital course and agrees with the plan to be discharged home with home services. Minutes to complete discharge: 45 Discharge Summary Reason For Visit: SHORTNESS OF BREATH; KIDNEY DISEASE Current Active Problems Shortness of breath (Acute) CKD stage 4 due to type 2 diabetes mellitus (Chronic) Condition: Improved - Instructions Diet, Activity, Other Instructions: RECOMMENDATIONS: - You were admitted because you were short of breath, you could have had an issue with your arrhythmia - It was also found that you had a change in your creatinine (kidney function ). - After holding your Lasix, and giving you fluids you improved - We spoke to Dr To who stated that since you are not having any more fluid in the legs, you can stop the lasix, and followup with his office this week - We spoke to Dr. Griffith who felt that your cardiac medications do not need to be changed - If you feel any severe chest pain, shortness of breath, please come back to the ER - We recommend relaxation methods for you to keep calm MEDICATION CHANGES: - STOP the lasix FOLLOWUPS: - Dr. Sailaja De La Vega (Primary Care Physician) - within 2 weeks - Dr. Yousuf Snider (Cooperative Education Director) - within 1 week to assess your kidney function - Dr. José Miguel Griffith (Levers Lace Machine Operator) - within 2 weeks to assess your rhythm Referrals: José Miguel Griffith MD [Staff Physician] - 2 Weeks Myesha Khan MD [Primary Care Provider] - 2 Weeks Tylor To MD [Staff Physician] - 1 Week Disposition: HOME - Home Medications Comprehensive Discharge Medication List: Ambulatory Orders Dexlansoprazole [Dexilant] 30 mg PO DAILY #30 cap. 08/02/15 Insulin Sliding Scale [Novolog Vial Sliding Scale -] 1 vial SQ ACHS units 08/01 Insulin (Levemir) [Levemir Flexpen -] 20 units SQ HS #1 vial 06/12/16 Sodium Bicarbonate - 650 mg PO DAILY #14 tablet 06/12/16 Warfarin Sodium [Coumadin] 7 mg PO HS 08/06/16 Cholecalciferol (Vitamin D3) [Vitamin D3] 1,000 unit PO WEEKLY 01/28/17 Diltiazem Cd [Cardizem Cd -] 80 mg PO TID 01/28/17 Hydralazine HCl [Apresoline -] 100 mg PO TID 01/28/17 Golden/Polymyx B Sulf/Dexameth [Maxitrol Eye Drops -] 1 drop OS Q4H 01/28/17 This patient is new to me today: No Emergency Visit: No Critical Care patient: No - Discharge Referral Referred to [facility] No
[2017-01-29 14:25] VITALS: BP 147/54; PULSE 75; TEMP 99.1
--- NOTE | 2017-01-29 15:42 | PN ---
Teaching Attending Note Name of Resident: Sonu Avila ATTENDING PHYSICIAN STATEMENT I saw and evaluated the patient. I reviewed the resident's note and discussed the case with the resident. I agree with the resident's findings and plan as documented. SUBJECTIVE:asymptomatic. states she has not had any repeat episodes of dyspnea or palpitations. denies CP, SOB, fever, chills, N/V/C/D OBJECTIVE: Last Vital Signs Temp Pulse Resp BP Pulse Ox 99.1 F 75 20 147/54 96 01/29/17 14:24 01/29/17 14:24 01/29/17 14:24 01/29/17 14:24 01/29/17 09:00 General NAD CV S1 S2 RRR no murmur/rub/gallop Lungs CTA B/L no wheezing/rales/rhonchi Abdomen soft NT/ND Extremities no pitting edema ASSESSMENT AND PLAN: 76yo F with PMH aflutter s/p ablation, HTN, DM, CKD, COPD and dyslipidemia presented to the ER with dyspnea and gound to have JOSE. 1. Acute on CKD-likely dehydration and medication induced. Baseline Cr 2.5-2.8. s/p 1 L NS. now improved. as per nephrology this is close to recent labs in the office. will hold lasix and will f/u in office next week for repeat labs. on bicarb 2. Dyspnea- likely anxiety related. however possible arrhythmia related. had episodes of SVT this AM. no symptoms during the event. consulted cardiology if pt should have more cardio workup to evaluate if this could be cause of symptoms. case discussed, do not believe it to be due to cardiac issues. encouraged pt to follow up with pulmonary as outpatient for further workup. ddimer negative. TSH WNL 3. HTN- improved. cont home medications. monitor 4. DM-A1c pending. cont levemir, iss 5. aflutter s/p ablation- on coumadin. cont coumadin. monitor INR 6. DVT ppx- therapeutic INR. 7. d/c home with renal follow up next week
[2017-01-29] MEDS ORDERED: WARFARIN NA 3 MG TABLET PO SCH (18:00)
[2017-01-30 06:08] LABS: SERUM IRON 72 ug/dL (27-139); TOTAL IRON BINDING CAPACITY 222 ug/dL (250-450); UIBC 150 ug/dL (118-369)
== END 2017-01-29 18:03 | disposition home or self-care (01) | DRG 683 ==
LOC: JER 12:39 → JERBED 17:54 → J4W 21:20
PROVIDERS: ADMIT Internal Medicine; ATTEND Internal Medicine
DX: N17.9 Acute kidney failure, unspecified (principal); I48.92 Unspecified atrial flutter; I13.0 Hypertensive heart and chronic kidney disease with heart failure and stage 1 through stage 4 chronic kidney disease, or unspecified chronic kidney disease; N18.4 Chronic kidney disease, stage 4 (severe); I50.9 Heart failure, unspecified; E78.5 Hyperlipidemia, unspecified; E86.0 Dehydration; Z72.0 Tobacco use; K21.9 Gastro-esophageal reflux disease without esophagitis; E83.42 Hypomagnesemia; E11.22 Type 2 diabetes mellitus with diabetic chronic kidney disease; I48.0 Paroxysmal atrial fibrillation
CPT/HCPCS: 36415; 71010-TC; 80048; 80053; 82550; 82553; 82728; 83036; 83540; 83550; 83735; 83880; 84443; 84484; 85025; 85027; 85379; 85610; 85730; 93005; 93010; 93306-TC; 99285-25

== ENCOUNTER 2017-02-02 13:42 | Emergency (ER) | payer OTHER ==
[2017-02-02 14:39] VITALS: TEMP 98.4; BMI 29.4
--- NOTE | 2017-02-02 14:49 | PDOC ---
History of Present Illness - History of Present Illness Initial Comments: 02/02/17 15:11 The patient is a 76 year old female, with a significant past medical history of CKD stage 4, IDDMII, COPD, asthma, diabetes, anemia, anxiety, HLD, and GERD compliant with her medications, who was BIBA from home and presents with shortness of breath earlier today. Patient says that she began experiencing shortness of breath this morning right after finishing breakfast. She states her SOB is significantly worsened with movement. When EMS arrived, her O2 was 99 %. She was recently discharged from [facility] on 01/29 for her shortness of breath. She states she frequently becomes SOB, this is a regular occurrence for her. Her dauther states that she believes her mothers shortness of breath to be anxiety-related and states that she tends to hyperventilates when she gets upset. She states she currently feels very cold. She is not on O2 at home. Currently on Coumadin. She has been given nebulizer treatments in the past but states that it does nothing to improve her condition. She denies recent cough, fevers, chills, headache or dizziness. She denies recent nausea, vomit, diarrhea or constipation. She denies recent dysuria, frequency, urgency or hematuria. She denies recent chest pain. Allergies: NKA Past surgical history: None reported. Social history:Occasional smoker. Denies EtOH use and recreational drug use. Primary Care Physician: Myesha Green Fitter Mechanic: José Miguel Griffith <Danna New - Last Filed: 02/02/17 15:13> <Giuliano Grijalva - Last Filed: 02/02/17 16:51> - General Chief Complaint: Shortness of Breath Stated Complaint: SOB Time Seen by Provider: 02/02/17 13:54 Past History <Danna New - Last Filed: 02/02/17 15:13> - Past Medical History Anemia: Yes Asthma: Yes Cancer: No Cardiac Disorders: Yes (AF ablation) CVA: No COPD: No CHF: No Dementia: No Diabetes: Yes (IDDM) GI Disorders: No Disorders: Yes (frequency) HTN: Yes Hypercholesterolemia: Yes Liver Disease: No Psychiatric Problems: Yes (DEPRESSION) Seizures: No Thyroid Disease: No Other medical history: DVT TO LOWER EXTREMITIES - Surgical History Abdominal Surgery: Yes (TUBAL LIG.) Appendectomy: No Cardiac Surgery: No Cholecystectomy: No Lung Surgery: No Neurologic Surgery: No Orthopedic Surgery: Yes (hammer toes,trigger finger) - Family Disease History Family Disease History: Diabetes: Grandparents, [place]: Mother (htn) - Immunization History Immunization Up to Date: Yes - Suicide/Smoking/Psychosocial Hx Smoking Status: Yes Smoking History: Former smoker Have you smoked in the past 12 months: Yes Number of Cigarettes Smoked Daily: 1 If you are a former smoker, when did you quit?: 2 MO AGO Information on smoking cessation initiated: No 'Breaking Loose' booklet given: 06/22/15 Hx Alcohol Use: No Drug/Substance Use Hx: No Substance Use Type: None Hx Substance Use Treatment: No <Giuliano Grijalva - Last Filed: 02/02/17 16:51> - Past Medical History Allergies/Adverse Reactions: Allergies Allergy/AdvReac Type Severity Reaction Status Date / Time No Known Allergies Allergy Verified 08/06/16 13:22 Home Medications: Ambulatory Orders Dexlansoprazole [Dexilant] 30 mg PO DAILY #30 08/02/15 Insulin Sliding Scale [Novolog Vial Sliding Scale -] 1 vial SQ ACHS units 08/01 Insulin (Levemir) [Levemir Flexpen -] 20 units SQ HS #1 vial 06/12/16 Sodium Bicarbonate - 650 mg PO DAILY #14 tablet 06/12/16 Warfarin Sodium [Coumadin] 7 mg PO HS 08/06/16 Cholecalciferol (Vitamin D3) [Vitamin D3] 1,000 unit PO WEEKLY 01/28/17 Diltiazem Cd [Cardizem Cd -] 180 mg PO BID 01/28/17 Hydralazine HCl [Apresoline -] 100 mg PO TID 01/28/17 Golden/Polymyx B Sulf/Dexameth [Maxitrol Eye Drops -] 1 drop OS Q4H 01/28/17 Ferrous Sulfate 325 mg PO DAILY 02/02/17 Review of Systems - Review of Systems Constitutional: No: Chills, Fever Respiratory: Yes: Shortness of Breath. No: Cough Cardiac (ROS): No: Chest Pain, Edema, Syncope ABD/GI: No: Diarrhea, Vomiting Psychiatric: Yes: Anxiety All Other Systems: Reviewed and Negative <Giuliano Grijalva - Last Filed: 02/02/17 16:51> *Physical Exam - Vital Signs Last Vital Signs Temp Pulse Resp BP Pulse Ox 98.4 F 75 16 195/78 100 02/02/17 14:34 02/02/17 14:34 02/02/17 14:34 02/02/17 14:34 02/02/17 14:34 - Physical Exam Comments: 02/02/17 15:11 GENERAL: The patient is awake, alert, and fully oriented, speaking in full sentences. HEAD: Normal with no signs of trauma. EYES: Pupils equal, round and reactive to light, extraocular movements intact, sclera anicteric, conjunctiva clear with no pallor. ENT: Ears normal, nares patent, oropharynx clear without exudates. Moist mucous membranes. NECK: Normal range of motion, supple without lymphadenopathy, JVD, or masses. LUNGS: Intermittently tachypneic. Breath sounds equal, clear to auscultation bilaterally. No wheeze/crackles. HEART: Regular rate and rhythm, normal S1 and S2 without murmur or rub. ABDOMEN: Soft/nontender/nondistended. BS wnl. No guarding or rebound. No palpable masses. No hepatosplenomegaly. EXTREMITIES: Trace pretibial edema bilaterally. Normal range of motion. No clubbing or cyanosis. No cords, erythema, or tenderness. NEUROLOGICAL: Cranial nerves II through XII grossly intact. Normal speech, normal gait. PSYCH: Normal mood, normal affect. SKIN: No jaundice, no pallor. Warm, Dry, normal turgor, no rashes or lesions noted. <Danna New - Last Filed: 02/02/17 15:13> - Vital Signs Last Vital Signs Temp Pulse Resp BP Pulse Ox 98.4 F 75 16 195/78 100 02/02/17 14:34 02/02/17 14:34 02/02/17 14:34 02/02/17 14:34 02/02/17 14:34 <Giuliano Grijalva - Last Filed: 02/02/17 16:51> Heart Score/ECG Review #1 ECG reviewed & interpreted by me at: 15:35 General ECG Interpretation: Sinus Rhythm, Normal Rate (64), Normal Intervals ( qtc 414), No acute ischemic changes Compared to previous ECG there are: No significant change (c/w 01/28/17) <Giuliano Grijalva - Last Filed: 02/02/17 16:51> ED Treatment Course - LABORATORY CBC & Chemistry Diagram: 02/02/17 15:12 02/02/17 15:12 - RADIOLOGY Radiology Studies Ordered: Category Date Time Status CHEST PA & LAT [RAD] Stat Radiology 02/02/17 14:47 Ordered <Giuliano Grijalva - Last Filed: 02/02/17 16:51> Medical Decision Making - Medical Decision Making 02/02/17 15:02 A portion of this note was documented by scribe services under my direction. I have reviewed the details of the note, within reason, and agree with the documentation with the following case summary and management plan written by me. 76-year-old female with history of chronic renal insufficiency, a flutter s/p ablation, h/o dvt on coumadin, ? COPD, ? anxiety p/w acute on chronic SOB. Pt recently admitted for SOB, discharged 5d ago after workup wnl. SOB attributed to anxiety, had plans for f/u with Dr. Griffith of cardiology for further evaluation, ? arrhythmia. Since discharge, pt states her SOB has not changed, exacerbated today when answered the door for [facility], who saw her tachypnea and referred her to the ED. no cough, no cp, no f/c. VS as noted, bp elevated, 100% on room air intermittently tachypneic otherwise well appearing speaking full sentences no jvd lungs clear 76y/o F with acute on chronic SOB, unclear etiology. cardiac and pulmonary workups to date wnl, no evidence for infectious process. Had normal ddimer on prior admission, a/c with coumadin and not clinically consistent with PE. recheck labs ekg, cxr received nebulizers trial of xanax, pt agreeable after discussion in case of anxiety. if above wnl, given recent hospitalization and chronicity, consider pursuing outpt workup after discussion with specialists 02/02/17 16:46 Feels much better, SOB resolved, feels calm after xanax. labs/cxr/ekg without acute abnormality. VS remain normal. INR therapeutic. D/W Dr. Griffith, who knows the patient well. Agrees with if sxs have improved, can proceed with outpt workup especially given recent admission. On coumadin for occasional afib, would not bridge with lovenox and can simply restart coumadin at home. Pt and daughter agree, will consider anxiolytics with Dr. Garsia, will f/u with Dr. Griffith, understand return criteria. <Giuliano Grijalva - Last Filed: 02/02/17 16:51> *DC/Admit/Observation/Transfer - Attestations Scribe Attestion: 02/02/17 15:14 Documentation prepared by Danna New, acting as medical scientific officer for Giuliano Grijalva MD. <Danna New - Last Filed: 02/02/17 15:13> <Giuliano Grijalva - Last Filed: 02/02/17 16:51> Diagnosis at time of Disposition: Shortness of breath - Discharge Dispostion Disposition: HOME Condition at time of disposition: Improved - Referrals Referrals: Myesha Khan MD [Primary Care Provider] - José Miguel Griffith MD [Staff Physician] - - Patient Instructions Printed Discharge Instructions: DI for Shortness of Breath Additional Instructions: Activity as tolerated. Stay hydrated. Blood tests, a chest x-ray, and an EKG showed no acute abnormalities. Your INR was normal and below therapeutic, so Dr. Griffith wants you to restart your Coumadin. Continue your medications as previously prescribed by your physician. Consider speaking with Dr. Garsia about prescribing a very low dose of anxiolytic ( anxiety medicine) since he were given a small dose of Xanax today that appeared to help her symptoms. You should follow up with Dr. Garsia and Dr. Griffith as soon as possible regarding today's emergency department visit. Return to the emergency department for any new or concerning symptoms, particularly persistent or worsening shortness of breath or chest pain, cough or fever, leg swelling. - Post Discharge Activity
[2017-02-02] MEDS ORDERED: ALPRAZolam 0.25 MG TABLET PO ONE (15:07)
[2017-02-02] MEDS ORDERED: ALPRAZolam 0.25 MG TABLET ONE (15:24)
[2017-02-02 15:31] LABS: BASOPHIL 1.1 % (0-2.0); EOSINOPHIL 0.7 % (0-4.5); MCH 30.8 pg (25.7-33.7); MEAN CELL VOLUME 93.5 fl (80-96); MEAN PLT VOLUME 9.5 fl (7.5-11.1); NEUTROPHILS 58.7 % (42.8-82.8); PLATELET COUNT 219 K/MM3 (134-434); RDW 16.4 % (11.6-15.6); WHITE BLOOD COUNT 7.4 K/mm3 (4.0-10.0)
[2017-02-02 15:44] LABS: INR 0.96 (0.82-1.09); PROTHROMBIN TIME (PATIENT) 10.8 SEC (9.98-11.88)
[2017-02-02 16:04] LABS: ALBUMIN 3.3 g/dl (3.4-5.0); ANION GAP 11 (8-16); BILIRUBIN,TOTAL 0.2 mg/dL (0.2-1.0); CALCIUM 8.7 mg/dL (8.5-10.1); CO2 21 mmol/L (21-32); CREATININE 3.2 mg/dL (0.55-1.02); GLUCOSE,RANDOM 205 mg/dL (74-106); MAGNESIUM 1.8 mg/dL (1.8-2.4); SGOT/AST 12 U/L (15-37); SGPT/ALT 17 U/L (12-78); TOT PROT 6.7 g/dl (6.4-8.2)
[2017-02-02 16:07] LABS: ALK PHOS 61 U/L (45-117); CPK 113 IU/L (26-192); TROPONIN I 0.05 ng/ml (0.00-0.05)
--- NOTE | 2017-02-02 16:08 | EKG ---
Test Reason : Blood Pressure : / mmHG Vent. Rate : 064 BPM Atrial Rate : 064 BPM P-R Int : 150 ms QRS Dur : 072 ms QT Int : 402 ms P-R-T Axes : 066 -21 080 degrees QTc Int : 414 ms NORMAL SINUS RHYTHM SEPTAL INFARCT (CITED ON OR BEFORE 06-AUG-2016) ABNORMAL ECG WHEN COMPARED WITH ECG OF 28-JAN-2017 15:40, NO SIGNIFICANT CHANGE WAS FOUND Confirmed by JOSE ALEJANDRO VILLAGRAN, ANDER ([id number]) on 02/02/2017 4:07:32 PM Referred By: Confirmed By:ANDER BLOUNT MD
[2017-02-02 18:46] VITALS: BP 175/65; PULSE 70
== END 2017-02-02 18:47 | disposition home or self-care (01) ==
LOC: JER 13:42
DX: R06.02 Shortness of breath (principal); E11.22 Type 2 diabetes mellitus with diabetic chronic kidney disease; N18.4 Chronic kidney disease, stage 4 (severe); Z79.4 Long term (current) use of insulin; Z79.01 Long term (current) use of anticoagulants; Z87.891 Personal history of nicotine dependence; F32.9 Major depressive disorder, single episode, unspecified
CPT/HCPCS: 36415; 71020-TC; 80053; 82550; 83735; 83880; 84484; 85025; 85610; 93005; 93010; 99284-25

== ENCOUNTER 2017-05-23 12:51 | Inpatient (IN) | payer OTHER ==
[2017-05-23] MEDS ORDERED: SODIUM CHLORIDE 1,000 ML IV ONE (13:03)
[2017-05-23] MEDS ORDERED: ONDANSETRON 4 MG/2 ML VIAL IVPB ONE (13:03)
[2017-05-23] MEDS ORDERED: ONDANSETRON 4 MG/2 ML VIAL ONE (13:06)
[2017-05-23 13:10] VITALS: BMI 29.2
--- NOTE | 2017-05-23 13:14 | PDOC ---
History of Present Illness - General History Source: Patient, EMS, Old Records Exam Limitations: No Limitations - History of Present Illness Initial Comments: 05/23/17 15:27 The patient is a 76 year old female brought via EMS and presenting with her family, with a significant past medical history of DM, HTN, AF ablation (on Coumadin), asthma, COPD (uses inhalers daily), anemia, HLD, depression, who presents to the emergency department complaining of generalized weakness, shortness of breath, nausea and vomiting onset today. She reports that she had breakfast and then had her 1st episode of emesis. She notes that her vomit is nonbloody and nonbilious. She denies any kind of abdominal pain. EMS notes that the patients symptoms began 15 minutes prior to EMS arrival at the patients home. On EMS arrival to the patients home, the patients BP was 190/90 with a HR or 105 bpm. On arrival to the ED, the patients BP came down to 150/70. Her family notes that the patient has been having generalized weakness and shortness of breath intermittenly since 2016. The pattient denies chest pain, headache or dizziness. Denies fever, chills, diarrhea and constipation. Denies dysuria, frequency, urgency and hematuria. Allergies: None Past surgical history: Surgical repair for hammer toes,trigger finger. Tubal ligation Social History: Cigarette use (1 daily). No alcohol, or drug use reported PMD: Dr. Garsia [employer] Targeting Supervisor: Dr. Griffith <Rory Alas - Last Filed: 05/23/17 15:27> - General History Source: Patient Exam Limitations: No Limitations <Yuri Paniagua - Last Filed: 05/28/17 09:57> - General Chief Complaint: Nausea/Vomiting Stated Complaint: VOMITING/PAIN Time Seen by Provider: 05/23/17 12:54 Past History <Rory Alas - Last Filed: 05/23/17 15:27> - Past Medical History Anemia: Yes Asthma: Yes Cancer: No Cardiac Disorders: Yes (AF ablation) CVA: No COPD: No CHF: No Dementia: No Diabetes: Yes (IDDM) GI Disorders: No Disorders: Yes (frequency) HTN: Yes Hypercholesterolemia: Yes Liver Disease: No Psychiatric Problems: Yes (DEPRESSION) Seizures: No Thyroid Disease: No - Surgical History Abdominal Surgery: Yes (TUBAL LIG.) Appendectomy: No Cardiac Surgery: No Cholecystectomy: No Lung Surgery: No Neurologic Surgery: No Orthopedic Surgery: Yes (hammer toes,trigger finger) - Family Disease History Family Disease History: Diabetes: Grandparents, [place]: Mother (htn) - Immunization History Immunization Up to Date: Yes - Suicide/Smoking/Psychosocial Hx Smoking Status: Yes Smoking History: Current some day smoker Have you smoked in the past 12 months: Yes Number of Cigarettes Smoked Daily: 1 If you are a former smoker, when did you quit?: 2 MO AGO Information on smoking cessation initiated: No 'Breaking Loose' booklet given: 06/22/15 Hx Alcohol Use: No Drug/Substance Use Hx: No Substance Use Type: None Hx Substance Use Treatment: No <Yuri Paniagua - Last Filed: 05/28/17 09:57> - Past Medical History Allergies/Adverse Reactions: Allergies Allergy/AdvReac Type Severity Reaction Status Date / Time No Known Allergies Allergy Verified 05/23/17 13:49 Home Medications: Ambulatory Orders Dexlansoprazole [Dexilant] 30 mg PO DAILY #30 08/02/15 Insulin Sliding Scale [Novolog Vial Sliding Scale -] 1 vial SQ ACHS units 08/01 Insulin (Levemir) [Levemir Flexpen -] 20 units SQ HS #1 vial 06/12/16 Sodium Bicarbonate - 650 mg PO DAILY #14 tablet 06/12/16 Cholecalciferol (Vitamin D3) [Vitamin D3] 1,000 unit PO WEEKLY 01/28/17 Diltiazem Cd [Cardizem Cd -] 180 mg PO BID 01/28/17 Golden/Polymyx B Sulf/Dexameth [Maxitrol Eye Drops -] 1 drop OS Q4H 01/28/17 hydrALAZINE HCL [Apresoline -] 100 mg PO TID 01/28/17 Ferrous Sulfate 325 mg PO DAILY 02/02/17 Atorvastatin Ca [Lipitor] 80 mg PO HS #30 tablet 05/27/17 Warfarin Na [Coumadin] 7.5 mg PO DAILY@1800 #30 tablet 05/27/17 Review of Systems - Review of Systems Able to Perform ROS?: Yes Comments:: 05/23/17 15:27 CONSTITUTIONAL: Reported: Generalized Weakness No reported: Fever, Chills, Diaphoresis, Malaise, Loss of Appetite HEENT: No reported: Rhinorrhea, Nasal Congestion, Throat Pain, Throat Swelling, Difficulty Swallowing, Mouth Swelling, Ear Pain, Eye Pain, Visual Changes CARDIOVASCULAR: No reported: Chest Pain, Syncope, Palpitations, Irregular Heart Rate, Lightheadedness, Peripheral Edema RESPIRATORY: Reported: Shortness of Breath No reported: Cough, SOB with Exertion, Orthopnea, Wheezing, Stridor, Hemoptysis GASTROINTESTINAL: Reported: Nausea, Vomiting No reported: Abdominal pain, Abdominal Distension, Diarrhea, Constipation, Melena, Hematochezia GENITOURINARY: No reported: Dysuria, Frequency, Urgency, Hesitancy, Flank Pain, Genital Pain MUSCULOSKELETAL: No reported: Myalgia, Arthralgia, Joint Swelling, Back pain, Neck Pain SKIN: No reported: Rash, Itching, Pallor HEMEATOLOGIC/IMMUNOLOGIC: No reported: Easy Bleeding, Easy Bruising, Lymphadenopathy, Frequent infections ENDOCRINE: No reported: Unexplained Weight Gain, Unexplained Weight Loss, Heat Intolerance , Cold Intolerance NEUROLOGIC: No reported: Headache, Focal Weakness, Paresthesias, Vertigo, Lightheadedness, Unsteady Gait, Seizure, Mental Status Changes, Incontinence PSYCHIATRIC: No reported: Anxiety, Depression <Rory Alas - Last Filed: 05/23/17 15:27> *Physical Exam - Vital Signs Last Vital Signs Temp Pulse Resp BP Pulse Ox 98.0 F 85 16 192/92 99 05/23/17 13:00 05/23/17 13:00 05/23/17 13:00 05/23/17 13:00 05/23/17 13:57 - Physical Exam Comments: 05/23/17 15:27 GENERAL: The patient is awake, alert, and fully oriented, Nontoxic - in no acute distress. HEAD: Normocephalic, atraumatic. EYES: extraocular movements intact, sclera anicteric, conjunctiva clear. ENT: Normal voice, Moist mucous membranes. NECK: Normal range of motion, supple LUNGS: Breath sounds equal, clear to auscultation bilaterally. No wheezes, no rhonchi, no rales. HEART: Regular rate and rhythm, without murmur, rub or gallop. ABDOMEN: Soft, nontender, normoactive bowel sounds. No guarding, no rebound.No CVA tenderness EXTREMITIES: Normal range of motion, no edema. No clubbing or cyanosis. No cords, erythema, or tenderness. NEUROLOGICAL: No facial assymetry, Normal speech, PSYCH: Normal mood, normal affect. SKIN: Warm, Dry, normal turgor <MildredkyiascooterRory Massiel - Last Filed: 05/23/17 15:27> - Vital Signs Last Vital Signs Temp Pulse Resp BP Pulse Ox 98.0 F 85 16 192/92 100 05/23/17 13:00 05/23/17 13:00 05/23/17 13:00 05/23/17 13:00 05/23/17 13:00 <Yuri Paniagua - Last Filed: 05/28/17 09:57> Heart Score/ECG Review - ECG Impressions Comment:: 05/23/17 14:06 Twelve-lead EKG was performed and reviewed by me. There is normal sinus rhythm with a normal rate. Rate of 74 The intervals are normal. There is normal R wave progression Nonspecific T wave abnormality <Yuri Paniagua - Last Filed: 05/28/17 09:57> ED Treatment Course - LABORATORY CBC & Chemistry Diagram: 05/23/17 13:30 05/23/17 13:30 - ADDITIONAL ORDERS Additional order review: Laboratory Results 05/23/17 05/23/17 05/23/17 13:35 13:30 13:30 PT with INR 24.80 H INR 2.19 H D VBG pH 7.40 POC VBG pCO2 39.2 POC VBG pO2 28.1 Mixed VBG HCO3 23.6 Sodium 141 Potassium 4.7 Chloride 109 H Carbon Dioxide 22 Anion Gap 10 BUN 30 H Creatinine 3.0 H Creat Clearance w eGFR 15.09 Random Glucose 222 H Calcium 8.7 Total Bilirubin 0.4 D AST 21 ALT 16 Alkaline Phosphatase 56 Creatine Kinase 201 H Creatine Kinase Index 5.5 H CK-MB (CK-2) 11.198 H Troponin I 4.13 H* Total Protein 6.6 Albumin 3.2 L 05/23/17 13:30 RBC 3.86 MCV 94.4 MCHC 33.1 RDW 15.8 H MPV 9.5 Neutrophils % 69.2 Lymphocytes % 22.2 D Monocytes % 7.4 Eosinophils % 0.3 Basophils % 0.9 - Medications Given in the ED: ED Medications Discontinued Medications Generic Name Dose Route Start Last Admin Trade Name Jacquelyn PRN Reason Stop Dose Admin Albuterol/Ipratropium 1 amp 05/23/17 14:15 05/23/17 14:05 Duoneb - NEB 05/23/17 14:16 1 amp ONCE ONE Administration Aspirin 162 mg 05/23/17 14:42 05/23/17 14:55 Asa - PO 05/23/17 14:43 162 mg ONCE ONE Administration Sodium Chloride 1,000 mls @ 1,000 mls/hr 05/23/17 13:03 05/23/17 13:30 Normal Saline - IV 05/23/17 14:02 1,000 mls/hr .Q1H ONE Administration Ondansetron HCl 4 mg 05/23/17 13:03 05/23/17 13:35 Zofran Injection IVPB 05/23/17 13:04 4 mg ONCE ONE Administration <Rory Alas - Last Filed: 05/23/17 15:27> - LABORATORY CBC & Chemistry Diagram: 05/27/17 09:40 05/27/17 09:40 <Yuri Paniagua - Last Filed: 05/28/17 09:57> Medical Decision Making - Medical Decision Making 05/23/17 13:14 76y F hx of copd, aflutter/fib on coumadin, DMII, CKD, HTN presents for evaluation of malaise since awakening this morning, pt also endorses feeling sob this morning associated with nausea. This seems to get worse when she is ambulating. Pt states she frequently has these sypmtoms (almost daily for the psat 2 years). denies any associated cp, headache, dizziness, palpitations, cough, fever/chills, abd pain, back pain, diarrhea/melena, bpr. On exam the pt appears well in no distress, but occasionally (espeically when pt was being transferred from EMS stretcher to our stretcher) she appears tachpenic and is grunting. vitals are normal. lungs are clear to ascultation., ?copd vs anxiety consider acs - will send trop, obtain ekg cxr to r/o acute pulmonary pathology labs to r/o anemia, metabolic derangement will reassess A portion of this note was documented by scribe services under my direction. I have reviewed the details of the note, within reason, and agree with the documentation with the following case summary and management plan written by me Allergies: NKA Past surgical history: None reported Social history: Former smoker (quit 2 months ago). Denies EtOH use and recreational drug use. Cardiology: 05/23/17 14:58 pts labs reviewed c/w ckd at baseline trop elevated to 3 will give pt ASA pt INR therapeutic case dw ela ortiz - agree with admission for further management of NSTEMI will admit to tele wlil page the hospitalist service 05/23/17 15:30 Patiently currently aymptomatic. chest pain free case dw ARACELIS rodriguez agree with admission under dr. charleen araya for tele Case discussed in detail with admitting physician including history, physical exam and ancillary studies. Admitting physician has assumed care for the patient, will follow all pending diagnostics and will complete the evaluation and treatment. CRITICAL CARE DOCUMENTATION: I spent ~35 minutes of Critical Care time, excluding separately billable procedures, involving high complexity decision making to assess, manipulate and support vital system function(s) to treat single or multiple vital organ system failure and/or to prevent further life threatening deterioration of the patient' s condition. <Yuri Paniagua - Last Filed: 05/28/17 09:57> *DC/Admit/Observation/Transfer - Attestations Scribe Attestion: 05/23/17 15:27 Documentation prepared by Rory Alas, acting as bacteriologist medical for Yuri Paniagua MD <Rory Alas - Last Filed: 05/23/17 15:27> - Discharge Dispostion Admit: Yes <Yuri Paniagua - Last Filed: 05/28/17 09:57> Diagnosis at time of Disposition: NSTEMI (non-ST elevated myocardial infarction), CKD stage 4 due to type 2 diabetes mellitus Hypertension Qualifiers: Hypertension type: essential hypertension Qualified Code(s): I10 - Essential ( primary) hypertension - Discharge Dispostion Disposition: HOME Condition at time of disposition: Stable
[2017-05-23 13:57] LABS: INR 2.19 (0.82-1.09); PROTHROMBIN TIME (PATIENT) 24.8 SEC (9.98-11.88)
[2017-05-23 14:05] LABS: BASO % 0.9 % (0-2.0); EOS % 0.3 % (0-4.5); HEMATOCRIT 36.5 % (32.4-45.2); HEMOGLOBIN 12.1 GM/dL (10.7-15.3); LYMPH % 22.2 % (8-40); MCH 31.3 pg (25.7-33.7); MCHC 33.1 g/dl (32.0-36.0); MEAN CELL VOLUME 94.4 fl (80-96); MEAN PLT VOLUME 9.5 fl (7.5-11.1); MONO % 7.4 % (3.8-10.2); NEUT % 69.2 % (42.8-82.8); PLATELET COUNT 233 K/MM3 (134-434); RBC 3.86 M/mm3 (3.60-5.2); RDW 15.8 % (11.6-15.6); WHITE BLOOD COUNT 7.1 K/mm3 (4.0-10.0)
[2017-05-23 14:14] LABS: ALBUMIN 3.2 g/dl (3.4-5.0); ALK PHOS 56 U/L (45-117); ANION GAP 10 (8-16); BILIRUBIN,TOTAL 0.4 mg/dL (0.2-1.0); BLOOD UREA NITROGEN 30 mg/dL (7-18); CALCIUM 8.7 mg/dL (8.5-10.1); CHLORIDE 109 mmol/L (98-107); CO2 22 mmol/L (21-32); GLUCOSE,RANDOM 222 mg/dL (74-106); POTASSIUM 4.7 mmol/L (3.5-5.1); SGOT/AST 21 U/L (15-37); SGPT/ALT 16 U/L (12-78); SODIUM 141 mmol/L (136-145); TOT PROT 6.6 g/dl (6.4-8.2)
[2017-05-23] MEDS ORDERED: ALBUTEROL SO4 2.5/IPRATROPIUM 0.5 INH SOL 3 ML VIAL.NEB. NEB ONE (14:15)
[2017-05-23] MEDS ORDERED: ASPIRIN 81 MG CHEWABLE TABLETS PO ONE (14:42)
[2017-05-23 14:57] LABS: VENOUS PH 7.4 (7.32-7.42)
[2017-05-23 14:58] LABS: VENOUS PC02 39.2 mmHg (38-52); VENOUS PO2 28.1 mmHg (28-48)
[2017-05-23] MEDS ORDERED: ASPIRIN 81 MG CHEWABLE TABLETS ONE (15:10)
--- NOTE | 2017-05-23 15:29 | HP ---
CHIEF COMPLAINT: generalized weakness, shortness of breath with ambulation MDs: Salesperson Wigs: Dr. Griffith PCP: Dr. Garsia HISTORY OF PRESENT ILLNESS: Patient is a 76 year old female with a significant past medical history of diabetes, hypertension, atrial fibrillation, ablation (On Coumadin), asthma, current everyday smoker (3 cigarettes per day), DM, COPD (on inhalers daily), anemia, depression. She presents to the ED c/o of generalized fatigue. Daughter at the bedside and states that patient has been fatigued "on and off" for approximately 1 year but worsening in the last few days. Patient denies chest pain, endorses shortness of breath with ambulation. She also states that she vomited x 1 today, non bloody emesis. As per ED notes, patient's BP was elevated at 190/90 with and noted to be tachy @ 105s. The patient denies chest pain, headache or dizziness. Denies fever, chills, diarrhea and constipation. Denies dysuria, frequency, urgency and hematuria. ER course was notable for: (1) Trop 4.13 (2) bnp 1725 (3) creat 3.0 (4) INR 2.19 Recent Travel: PAST MEDICAL HISTORY: diabetes, hypertension, atrial fibrillation, ablation (On Coumadin), asthma, current everyday smoker (3 cigarettes per day), DM, COPD (on inhalers daily), anemia, depression PAST SURGICAL HISTORY: Social History: Smokin cigs per day Alcohol: n/a Drugs: n/a Family History: Allergies No Known Allergies Allergy (Verified 05/23/17 13:49) HOME MEDICATIONS: Home Medications Medication Instructions Recorded Dexlansoprazole [Dexilant] 30 mg PO DAILY #30 08/02/15 Insulin Sliding Scale [Novolog 1 vial SQ ACHS units 08/02/15 Vial Sliding Scale -] Insulin (Levemir) [Levemir Flexpen 20 units SQ HS #1 vial 06/12/16 -] Sodium Bicarbonate - 650 mg PO DAILY #14 tablet 06/12/16 Warfarin Sodium [Coumadin] 7 mg PO HS 08/06/16 Cholecalciferol (Vitamin D3) 1,000 unit PO WEEKLY 01/28/17 [Vitamin D3] Diltiazem Cd [Cardizem Cd -] 180 mg PO BID 11/29/17 Goldne/Polymyx B Sulf/Dexameth 1 drop OS Q4H 01/28/17 [Maxitrol Eye Drops -] hydrALAZINE HCL [Apresoline -] 100 mg PO TID 01/28/17 Ferrous Sulfate 325 mg PO DAILY 02/02/17 PHYSICAL EXAMINATION Vital Signs - 24 hr 05/23/17 05/23/17 05/23/17 13:00 13:57 15:28 Temperature 98.0 F Pulse Rate 85 Pulse Rate [ 78 Apical] Respiratory 16 20 Rate Blood Pressure 192/92 Blood Pressure 180/81 [Left Arm] O2 Sat by Pulse 100 99 99 Oximetry (%) GENERAL: Awake, alert, and fully oriented, in no acute distress. HEAD: Normal with no signs of trauma. EYES: Pupils equal, round and reactive to light, extraocular movements intact, sclera anicteric, conjunctiva clear. No lid lag. EARS, NOSE, THROAT: Ears normal, nares patent, oropharynx clear without exudates. Moist mucous membranes. NECK: Normal range of motion, supple without lymphadenopathy, JVD, or masses. LUNGS: mild wheezing on bilateral upper lobes, diminished lower lobs HEART: Regular rate and rhythm, normal S1 and S2 without murmur, rub or gallop. ABDOMEN: Soft, nontender, not distended, normoactive bowel sounds, no guarding, no rebound, no masses. No hepatomegaly or splenomegaly. MUSCULOSKELETAL: Normal range of motion at all joints. No bony deformities or tenderness. No CVA tenderness. UPPER EXTREMITIES: 2+ pulses, warm, well-perfused. No cyanosis. No clubbing. No peripheral edema. LOWER EXTREMITIES: 2+ pulses, warm, well-perfused. No calf tenderness. No peripheral edema. NEUROLOGICAL: Cranial nerves II-XII intact. Normal speech. Normal gait. PSYCHIATRIC: Cooperative. Good eye contact. Appropriate mood and affect. SKIN: Warm, dry, normal turgor, no rashes or lesions noted, normal capillary refill. Laboratory Results - last 24 hr 05/23/17 05/23/17 05/23/17 13:30 13:30 13:30 WBC 7.1 RBC 3.86 Hgb 12.1 Hct 36.5 MCV 94.4 MCH 31.3 MCHC 33.1 RDW 15.8 H Plt Count 233 MPV 9.5 Neutrophils % 69.2 Lymphocytes % 22.2 D Monocytes % 7.4 Eosinophils % 0.3 Basophils % 0.9 PT with INR 24.80 H INR 2.19 H D VBG pH POC VBG pCO2 POC VBG pO2 Mixed VBG HCO3 Sodium 141 Potassium 4.7 Chloride 109 H Carbon Dioxide 22 Anion Gap 10 BUN 30 H Creatinine 3.0 H Creat Clearance w eGFR 15.09 Random Glucose 222 H Calcium 8.7 Total Bilirubin 0.4 D AST 21 ALT 16 Alkaline Phosphatase 56 Creatine Kinase 201 H Creatine Kinase Index 5.5 H CK-MB (CK-2) 11.198 H Troponin I 4.13 H* Total Protein 6.6 Albumin 3.2 L 05/23/17 13:35 WBC RBC Hgb Hct MCV MCH MCHC RDW Plt Count MPV Neutrophils % Lymphocytes % Monocytes % Eosinophils % Basophils % PT with INR INR VBG pH 7.40 POC VBG pCO2 39.2 POC VBG pO2 28.1 Mixed VBG HCO3 23.6 Sodium Potassium Chloride Carbon Dioxide Anion Gap BUN Creatinine Creat Clearance w eGFR Random Glucose Calcium Total Bilirubin AST ALT Alkaline Phosphatase Creatine Kinase Creatine Kinase Index CK-MB (CK-2) Troponin I Total Protein Albumin ASSESSMENT/PLAN: Patient is a 76 year old female with a significant past medical history of diabetes, hypertension, atrial fibrillation, ablation (On Coumadin), asthma, current everyday smoker (3 cigarettes per day), DM, COPD (on inhalers daily), anemia, depression. She presents to the ED c/o of generalized fatigue. Daughter at the bedside and states that patient has been fatigued "on and off" for approximately 1 year but worsening in the last few days. Patient denies chest pain, endorses shortness of breath with ambulation. She also states that she vomited x 1 today, non bloody emesis. As per ED notes, patient's BP was elevated at 190/90 with and noted to be tachy @ 105s. The patient denies chest pain, headache or dizziness. Denies fever, chills, diarrhea and constipation. Denies dysuria, frequency, urgency and hematuria. 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 Ramires Monitor respiratory status duonebs prn Psyche Daily smoker Cessation encouraged Nicotine patch Endocrine On BGMs Novolog Renal CKD Followed by renal Disposition: cardiac monitoring . full code. Hospitalist Screening - Colonoscopy Questionnaire Colonoscopy Questionnaire: Colonoscopy Questionnaire
[2017-05-23] MEDS ORDERED: WARFARIN NA 2 MG TABLET (UD) ONE (17:30)
[2017-05-23] MEDS ORDERED: WARFARIN NA 5 MG TABLET (UD) ONE (17:30)
[2017-05-23] MEDS ORDERED: WARFARIN NA 5 MG, WARFARIN NA 2 MG PO SCH (18:00)
[2017-05-23] MEDS ORDERED: INSULIN (NOVOLOG) ASPART 100 UNITS/ML 10ML VIAL ONE (21:55)
[2017-05-23] MEDS: hydrALAZINE HCL 50 MG TABLET (FP) PO SCH (21:59)
[2017-05-23] MEDS: INSULIN DETEMIR 100 UNITS/ML MDV SQ SCH (22:00)
[2017-05-23] MEDS: INSULIN SLIDING SCALE (NOVOLOG) 1 VIAL SQ SCH (22:00)
[2017-05-23] MEDS ORDERED: WARFARIN SODIUM 7 MG PO SCH (22:00)
[2017-05-24] MEDS: hydrALAZINE HCL 50 MG TABLET (FP) PO SCH ×3 (06:15→21:49)
[2017-05-24] MEDS: INSULIN SLIDING SCALE (NOVOLOG) 1 VIAL SQ SCH ×4 (06:18→21:50)
--- NOTE | 2017-05-24 07:32 | CON.CARD ---
Consult Consult Specialty:: Cardiology Referred by:: Dr. Yu Reason for Consultation:: + TnI - History of Present Illness Chief Complaint: Nausea, vomiting History of Present Illness: 76F with PMH of COPD, former smoker, DM , CKD, AFlutter s/p ablation, AFIB on coumadin, depression, anxiety with chronic JOHNSON. Patient had right heart cath some years ago which showed no PHTN. She did not have a LHC due to CKD and for unclear reasons has never had a stress test in the last 3 years. She has been following with Dr. Griffith. She now presents with an episode of light headedness, nausea and vomiting. Denies palps, SOB beyond baseline, chest pain. In ER, TnI noted to be 4. Her enzymes have trended down. No arrhythmias on tele thus far. Presenting ECG showed no acute ST changes. - History Source History Provided By: Patient, Medical Record - Past Medical History MAC ARTIST: Yes: Peripheral Neuropathy Cardio/Vascular: Yes: AFIB, CHF, HTN, Hyperlipdemia, Other (Atrial flutter s/p ablation, PAD) Pulmonary: Yes: COPD Renal/: Yes: Renal Inusuff (stage 4), Other (Overactive Bladder) Psych: Yes: Depression Endocrine: Yes: Diabetes Mellitus (initially on oral agents, now on insulin) - Past Surgical History Past Surgical History: Yes: Colonoscopy (polyps a few years ago), Hysterectomy ( fibroids), Tubal Ligation, Upper Endoscopy (neg 1+ yrs ago) - Alcohol/Substance Use Hx Alcohol Use: No - Smoking History Smoking history: Current some day smoker Have you smoked in the past 12 months: Yes Aproximately how many cigarettes per day: 1 If you are a former smoker, when did you quit?: 03/2017 - Social History Usual Living Arrangement: With Child ADL: Family Assistance History of Recent Travel: No Home Medications - Allergies Allergies/Adverse Reactions: Allergies Allergy/AdvReac Type Severity Reaction Status Date / Time No Known Allergies Allergy Verified 05/23/17 13:49 - Home Medications Home Medications: Ambulatory Orders Dexlansoprazole [Dexilant] 30 mg PO DAILY #30 cap. 08/02/15 Insulin Sliding Scale [Novolog Vial Sliding Scale -] 1 vial SQ ACHS units 08/01 Insulin (Levemir) [Levemir Flexpen -] 20 units SQ HS #1 vial 06/12/16 Sodium Bicarbonate - 650 mg PO DAILY #14 tablet 06/12/16 Warfarin Sodium [Coumadin] 7 mg PO HS 08/06/16 Cholecalciferol (Vitamin D3) [Vitamin D3] 1,000 unit PO WEEKLY 01/28/17 Diltiazem Cd [Cardizem Cd -] 180 mg PO BID 01/28/17 Golden/Polymyx B Sulf/Dexameth [Maxitrol Eye Drops -] 1 drop OS Q4H 01/28/17 hydrALAZINE HCL [Apresoline -] 100 mg PO TID 01/28/17 Ferrous Sulfate 325 mg PO DAILY 02/02/17 Family Disease History - Family Disease History Family Disease History: Diabetes: Grandparent, Mother, Sister (lung cancer), CA : Sister Review of Systems Findings/Remarks: see HPI - Review of Systems Constitutional: reports: Weakness Cardiovascular: reports: No Symptoms Respiratory: reports: SOB on Exertion (chronic) Gastrointestinal: reports: Nausea, Vomiting Neurological: reports: No Symptoms Endocrine: reports: No Symptoms Hematology/Lymphatic: reports: No Symptoms Psychiatric: reports: No Symptoms - Risk Factors Known Risk Factors: Yes: Diabetes Mellitus, Smoking Vital Signs: Vital Signs Temperature 97.9 F 05/24/17 05:41 Pulse Rate 69 05/24/17 05:41 Respiratory Rate 18 05/24/17 05:41 Blood Pressure 138/52 05/24/17 05:41 O2 Sat by Pulse Oximetry (%) 96 05/23/17 21:00 Constitutional: Yes: Calm Eyes: Yes: Conjunctiva Clear Respiratory: Yes: Other (b/l rhonci, no rales) Gastrointestinal: Yes: Soft (nontender) Cardiovascular: Yes: Regular Rate and Rhythm JVD: No Carotid Bruit: No PMI: Non-Displaced Heart Sounds: Yes: S1, S2 (RRR, no murmurs) Edema: No Peripheral Pulses WNL: Yes Neurological: Yes: Alert - Other Data Labs, Other Data: CBC, BMP 05/23/17 13:30 05/23/17 13:30 INR, PTT INR 2.19 (0.82-1.09) H D 05/23/17 13:30 Troponin, BNP 05/23/17 05/23/17 05/24/17 13:30 19:50 03:40 Troponin I 4.13 H* 3.76 H* 2.86 H* B-Natriuretic Peptide 1725.30 H Troponin, BNP 05/23/17 05/23/17 05/24/17 13:30 19:50 03:40 Troponin I 4.13 H* 3.76 H* 2.86 H* B-Natriuretic Peptide 1725.30 H Laboratory Tests 05/23/17 05/23/17 05/23/17 13:30 13:30 13:30 WBC 7.1 Hgb 12.1 Plt Count 233 INR 2.19 H D Sodium 141 Potassium 4.7 BUN 30 H Creatinine 3.0 H Creatine Kinase 201 H Creatine Kinase Index 5.5 H CK-MB (CK-2) 11.198 H Troponin I 4.13 H* B-Natriuretic Peptide 1725.30 H 05/23/17 05/24/17 19:50 03:40 WBC Hgb Plt Count INR Sodium Potassium BUN Creatinine Creatine Kinase Creatine Kinase Index CK-MB (CK-2) Troponin I 3.76 H* 2.86 H* B-Natriuretic Peptide NSR left axis, NSST changes. Echo: Pending Ejection Fraction %: LVEF > or = 40 % Imaging - Results Chest X-ray: Image Reviewed Ultrasound: Image Reviewed (negative for DVT) Problem List - Problems (1) NSTEMI (non-ST elevated myocardial infarction) Code(s): I21.4 - NON-ST ELEVATION (NSTEMI) MYOCARDIAL INFARCTION (2) Type 2 diabetes mellitus Code(s): E11.9 - TYPE 2 DIABETES MELLITUS WITHOUT COMPLICATIONS Qualifiers: Diabetes mellitus complication status: with circulatory complication (3) CKD stage 4 due to type 2 diabetes mellitus Code(s): E11.22 - TYPE 2 DIABETES MELLITUS W DIABETIC CHRONIC KIDNEY DISEASE; N18.4 - CHRONIC KIDNEY DISEASE, STAGE 4 (SEVERE) (4) Hypertension Code(s): I10 - ESSENTIAL (PRIMARY) HYPERTENSION Qualifiers: Hypertension type: essential hypertension Qualified Code(s): I10 - Essential (primary) hypertension (5) Diastolic CHF Code(s): I50.30 - UNSPECIFIED DIASTOLIC (CONGESTIVE) HEART FAILURE Qualifiers: Heart failure chronicity: chronic Qualified Code(s): I50.32 - Chronic diastolic (congestive) heart failure (6) COPD (chronic obstructive pulmonary disease) Code(s): J44.9 - CHRONIC OBSTRUCTIVE PULMONARY DISEASE, UNSPECIFIED Qualifiers: COPD type: chronic bronchitis (7) Depression Code(s): F32.9 - MAJOR DEPRESSIVE DISORDER, SINGLE EPISODE, UNSPECIFIED Qualifiers: Depression Type: unspecified Qualified Code(s): F32.9 - Major depressive disorder, single episode, unspecified (8) Hyperlipidemia Code(s): E78.5 - HYPERLIPIDEMIA, UNSPECIFIED Qualifiers: Hyperlipidemia type: pure hypercholesterolemia Qualified Code(s): E78.00 - Pure hypercholesterolemia, unspecified; E78.0 - Pure hypercholesterolemia (9) Peripheral arterial disease Code(s): I73.9 - PERIPHERAL VASCULAR DISEASE, UNSPECIFIED Assessment/Plan IMP: NSTEMI CKD DM HTN PAF on AC H/o DVT (with current LE duplex negative) COPD REC: 1. Telemetry 2. Echo for EF assessment and to assess RVSP, pericardium 3. ASA 81mg daily; patient has had adverse reactions to beta blockers (fatigue and worsened dyspnea). Hold for now. Add high dose statin. 4. BP optimization. 5. INR goal 2-3 for PAF. 6. Long discussion with patient today about the option of cardiac cath. Benefits of definitive dx and possible revasc discussed in detail. Small risks of cath including possibility of worsening renal failure and need for HD discussed. At this time, she has refused cath: she wants to avoid HD and is unwilling to risk worsening renal fxn. She is well aware of the risks of associated with undiagnosed CAD including recurrent CO, CHF, . She prefers the alternative strategy of medical therapy and will consider my recommendation for a pre-discharge pharm MIBI to assess the extent of CAD. She may change her mind re. cath if stress test showed high risk findings, but is still unsure.
--- NOTE | 2017-05-24 08:47 | CONSULT ---
Consult - text type - Consultation Consultation Note: Renal Consult for CKD and Contrast Nephropathy Risk Stratification This is a 76 year old woman with PMhx of CKD stage 4 with proteinuria, COPD, AFib, Hypertension, DM who presented with N/V and Fatigue and found to have NSTEMI. Pt follows in our office for her CKD. Pt denies any CP. Has dyspnea, near baseline. No N/V/D. No flank pain. No overt LE swelling. No change in urine output. No NSAID use. Pt is a current smoker. PMhx: as above Allergies: NKDA Family Hx: NC Social Hx: Current smoker ROS: as per HPI Home Medications Medication Instructions Recorded Dexlansoprazole [Dexilant] 30 mg PO DAILY #30 ciarra. 08/02/15 Insulin Sliding Scale [Novolog 1 vial SQ ACHS units 08/02/15 Vial Sliding Scale -] Insulin (Levemir) [Levemir Flexpen 20 units SQ HS #1 vial 06/12/16 -] Sodium Bicarbonate - 650 mg PO DAILY #14 tablet 06/12/16 Warfarin Sodium [Coumadin] 7 mg PO HS 08/06/16 Cholecalciferol (Vitamin D3) 1,000 unit PO WEEKLY 01/28/17 [Vitamin D3] Diltiazem Cd [Cardizem Cd -] 180 mg PO BID 01/28/17 Golden/Polymyx B Sulf/Dexameth 1 drop OS Q4H 01/28/17 [Maxitrol Eye Drops -] hydrALAZINE HCL [Apresoline -] 100 mg PO TID 01/28/17 Ferrous Sulfate 325 mg PO DAILY 02/02/17 Vital Signs Temperature 97.9 F 05/24/17 05:41 Pulse Rate 69 05/24/17 05:41 Respiratory Rate 18 05/24/17 05:41 Blood Pressure 138/52 05/24/17 05:41 O2 Sat by Pulse Oximetry (%) 96 05/23/17 21:00 Intake & Output 05/21/17 05/22/17 05/23/17 05/24/17 23:59 23:59 23:59 23:59 Intake Total 120 180 Balance 120 180 Weight 92.533 kg 91.444 kg NAD awake and alert RRR, no M/R CTA, no rales or wheeze soft, NT/ND Trace LE edema, no clubbing or cyanosis No neurologic defects CBC, BMP 05/23/17 13:30 05/23/17 13:30 Current Medications Aspirin (Asa -) 81 mg PO DAILY [facility] Atorvastatin Calcium (Lipitor -) 80 mg PO HS [facility] Diltiazem HCl (Cardizem Cd -) 180 mg PO BID [facility] Last Admin: 05/23/17 21:59 Dose: 180 mg Ferrous Sulfate (Feosol -) 325 mg PO DAILY [facility] Hydralazine HCl (Apresoline -) 100 mg PO TID [facility] Last Admin: 05/24/17 06:15 Dose: 100 mg Insulin Aspart (Novolog Vial Sliding Scale -) 1 vial SQ ACHS [facility] PRN Reason: Protocol Last Admin: 05/24/17 06:18 Dose: Not Given Insulin Detemir (Levemir Vial) 20 units SQ HS [facility] Last Admin: 05/23/17 22:00 Dose: 20 units Sodium Bicarbonate (Sodium Bicarbonate -) 650 mg PO DAILY [facility] Warfarin Sodium (Coumadin -) 7.5 mg PO DAILY@1800 [facility] 76 year old woman with PMhx of CKD stage 4 with proteinuria, COPD, AFib, Hypertension, DM who presented with N/V and Fatigue and found to have NSTEMI. #NSTEMI #CKD stage 4 likely due to diabetic nephropathy #Hypertension #IDDM #Afib #COPD Continue medical management as per Cardiology for Stress testing to identify ischemic areas Renal function near baseline at this time would not give IVF at this time and pt with history of volume overload requiring diuretics VIKAS Risk stratification: 1% risk for immediate/emergent dialysis s/p cath, 26% risk of contrast nephropahty (25% rise in serum Cr) - risk based on VIKAS risk calculator developed by Mayur et al continue Hydralazine for Hypertension can add CCB if needed would avoid GLENDA/ARB given significant CKD Nebs if needed for CKD. Thank you Will follow Tylor To DO
[2017-05-24 08:56] LABS: URINE APPEARANCE CLEAR; URINE BILIRUBIN NEGATIVE (<2.0 mg/dL); URINE BLOOD NEGATIVE (NEGATIVE); URINE COLOR YELLOW; URINE GLUCOSE (UA) 3+ (NEGATIVE); URINE KETONE NEGATIVE (NEGATIVE); URINE LEUK ESTERASE NEGATIVE (NEGATIVE); URINE NITRITE NEGATIVE (NEGATIVE); URINE UROBILINOGEN NEGATIVE mg/dL (0.2-1.0)
[2017-05-24 09:06] LABS: URINE PROTEIN 3+ (NEGATIVE)
[2017-05-24 09:12] LABS: EPI CELLS RARE /HPF (FEW); URINE BACTERIA RARE /hpf (NONE SEEN); URINE HYALINE CAST 1 /lpf; URINE MUCUS RARE
[2017-05-24] MEDS: ASPIRIN 81 MG CHEWABLE TABLETS PO SCH (09:54)
[2017-05-24] MEDS: SODIUM BICARBONATE 650 MG TABLET PO SCH (09:54)
[2017-05-24] MEDS: FERROUS SO4 325 MG TABLET (FP) PO SCH (09:54)
[2017-05-24 10:07] LABS: BASO % 1.1 % (0-2.0); EOS % 0.6 % (0-4.5); HEMATOCRIT 33.5 % (32.4-45.2); HEMOGLOBIN 11.1 GM/dL (10.7-15.3); LYMPH % 25.3 % (8-40); MCH 31.5 pg (25.7-33.7); MCHC 33.1 g/dl (32.0-36.0); MEAN CELL VOLUME 95.3 fl (80-96); MEAN PLT VOLUME 8.8 fl (7.5-11.1); PLATELET COUNT 200 K/MM3 (134-434); RBC 3.52 M/mm3 (3.60-5.2); WHITE BLOOD COUNT 6.3 K/mm3 (4.0-10.0)
[2017-05-24 10:22] LABS: INR 2.92 (0.82-1.09)
[2017-05-24 13:14] LABS: ALBUMIN 2.7 g/dl (3.4-5.0); ANION GAP 11 (8-16); CHLORIDE 111 mmol/L (98-107); CO2 21 mmol/L (21-32); MAGNESIUM 1.5 mg/dL (1.8-2.4); POTASSIUM 4.5 mmol/L (3.5-5.1); SGOT/AST 14 U/L (15-37); SGPT/ALT 12 U/L (12-78); SODIUM 143 mmol/L (136-145); TOT PROT 5.8 g/dl (6.4-8.2)
[2017-05-24 13:27] LABS: BILIRUBIN,TOTAL 0.2 mg/dL (0.2-1.0); BLOOD UREA NITROGEN 30 mg/dL (7-18); CHOLESTEROL 211 mg/dL (50-200); GLUCOSE,RANDOM 166 mg/dL (74-106); HDL CHOLESTEROL 43 mg/dL (40-60); LDL CHOLESTEROL (ONLY SJRH) 150 mg/dL (5-100); TRIGLYCERIDES 117 mg/dL (35-160)
[2017-05-24 13:28] LABS: ALK PHOS 52 U/L (45-117)
[2017-05-24 13:30] LABS: CALCIUM 8.2 mg/dL (8.5-10.1)
[2017-05-24] MEDS ORDERED: MAGNESIUM SULF 50% (8.12 MEQ/2 ML-1 GM VIAL) IVPB ONE (17:15)
[2017-05-24] MEDS ORDERED: WARFARIN NA 5 MG TABLET (UD) PO SCH (18:00)
--- NOTE | 2017-05-24 18:31 | PN ---
Physical Exam: SUBJECTIVE: Patient seen and examined OBJECTIVE: Vital Signs Period Temp Pulse Resp BP Sys/Renee Pulse Ox Last 24 Hr 97.9 F-98.9 F 68-78 18-20 130-154/52-70 96-99 GENERAL: Awake, alert, and fully oriented, in no acute distress. HEAD: Normal with no signs of trauma. EYES: Pupils equal, round and reactive to light, extraocular movements intact, sclera anicteric, conjunctiva clear. No lid lag. EARS, NOSE, THROAT: Ears normal, nares patent, oropharynx clear without exudates. Moist mucous membranes. NECK: Normal range of motion, supple without lymphadenopathy, JVD, or masses. LUNGS: diminished lower lobes, tolerating room air HEART: Regular rate and rhythm, normal S1 and S2 without murmur, rub or gallop. ABDOMEN: Soft, nontender, not distended, normoactive bowel sounds, no guarding, no rebound, no masses. No hepatomegaly or splenomegaly. MUSCULOSKELETAL: Normal range of motion at all joints. No bony deformities or tenderness. No CVA tenderness. UPPER EXTREMITIES: 2+ pulses, warm, well-perfused. No cyanosis. No clubbing. No peripheral edema. LOWER EXTREMITIES: 2+ pulses, warm, well-perfused. No calf tenderness. No peripheral edema. NEUROLOGICAL: Cranial nerves II-XII intact. Normal speech. Normal gait. PSYCHIATRIC: Cooperative. Good eye contact. Appropriate mood and affect. SKIN: Warm, dry, normal turgor, no rashes or lesions noted, normal capillary refill. Laboratory Results - last 24 hr 05/23/17 05/23/17 05/24/17 19:50 21:53 03:40 WBC RBC Hgb Hct MCV MCH MCHC RDW Plt Count MPV Neutrophils % Lymphocytes % Monocytes % Eosinophils % Basophils % PT with INR INR Sodium Potassium Chloride Carbon Dioxide Anion Gap BUN Creatinine Creat Clearance w eGFR POC Glucometer 300 Random Glucose Hemoglobin A1c % Calcium Magnesium Total Bilirubin AST ALT Alkaline Phosphatase Creatine Kinase 141 Troponin I 3.76 H* 2.86 H* Total Protein Albumin Triglycerides Cholesterol Total LDL Cholesterol HDL Cholesterol Urine Color Urine Appearance Urine pH Ur Specific [place] Urine Protein Urine Glucose (UA) Urine Ketones Urine Blood Urine Nitrite Urine Bilirubin Urine Urobilinogen Ur Leukocyte Esterase Urine WBC (Auto) Urine RBC (Auto) Ur Epithelial Cells Urine Bacteria Hyaline Casts Urine Mucus 05/24/17 05/24/17 05/24/17 05:50 05:53 09:53 WBC 6.3 RBC 3.52 L Hgb 11.1 Hct 33.5 MCV 95.3 MCH 31.5 MCHC 33.1 RDW 16.0 H Plt Count 200 MPV 8.8 Neutrophils % 63.0 Lymphocytes % 25.3 Monocytes % 10.0 Eosinophils % 0.6 D Basophils % 1.1 PT with INR INR Sodium Potassium Chloride Carbon Dioxide Anion Gap BUN Creatinine Creat Clearance w eGFR POC Glucometer 71 Random Glucose Hemoglobin A1c % Calcium Magnesium Total Bilirubin AST ALT Alkaline Phosphatase Creatine Kinase Troponin I Total Protein Albumin Triglycerides Cholesterol Total LDL Cholesterol HDL Cholesterol Urine Color Yellow Urine Appearance Clear Urine pH 5.0 Ur Specific [place] 1.018 Urine Protein 3+ H Urine Glucose (UA) 3+ H D Urine Ketones Negative Urine Blood Negative Urine Nitrite Negative Urine Bilirubin Negative Urine Urobilinogen Negative Ur Leukocyte Esterase Negative Urine WBC (Auto) 1 Urine RBC (Auto) <1 Ur Epithelial Cells Rare Urine Bacteria Rare Hyaline Casts 1 Urine Mucus Rare 05/24/17 05/24/17 05/24/17 09:53 09:53 09:53 WBC RBC Hgb Hct MCV MCH MCHC RDW Plt Count MPV Neutrophils % Lymphocytes % Monocytes % Eosinophils % Basophils % PT with INR 33.00 H INR 2.92 H D Sodium 143 Potassium 4.5 Chloride 111 H Carbon Dioxide 21 Anion Gap 11 BUN 30 H Creatinine 3.0 H Creat Clearance w eGFR 15.09 POC Glucometer Random Glucose 166 H Hemoglobin A1c % 8.9 H Calcium 8.2 L Magnesium 1.5 L Total Bilirubin 0.2 D AST 14 L ALT 12 Alkaline Phosphatase 52 Creatine Kinase Troponin I Total Protein 5.8 L Albumin 2.7 L Triglycerides 117 Cholesterol 211 H Total LDL Cholesterol 150 H HDL Cholesterol 43 Urine Color Urine Appearance Urine pH Ur Specific [place] Urine Protein Urine Glucose (UA) Urine Ketones Urine Blood Urine Nitrite Urine Bilirubin Urine Urobilinogen Ur Leukocyte Esterase Urine WBC (Auto) Urine RBC (Auto) Ur Epithelial Cells Urine Bacteria Hyaline Casts Urine Mucus 05/24/17 05/24/17 11:20 16:34 WBC RBC Hgb Hct MCV MCH MCHC RDW Plt Count MPV Neutrophils % Lymphocytes % Monocytes % Eosinophils % Basophils % PT with INR INR Sodium Potassium Chloride Carbon Dioxide Anion Gap BUN Creatinine Creat Clearance w eGFR POC Glucometer 272 121 Random Glucose Hemoglobin A1c % Calcium Magnesium Total Bilirubin AST ALT Alkaline Phosphatase Creatine Kinase Troponin I Total Protein Albumin Triglycerides Cholesterol Total LDL Cholesterol HDL Cholesterol Urine Color Urine Appearance Urine pH Ur Specific [place] Urine Protein Urine Glucose (UA) Urine Ketones Urine Blood Urine Nitrite Urine Bilirubin Urine Urobilinogen Ur Leukocyte Esterase Urine WBC (Auto) Urine RBC (Auto) Ur Epithelial Cells Urine Bacteria Hyaline Casts Urine Mucus Active Medications Generic Name Dose Route Start Last Admin Trade Name Freq PRN Reason Stop Dose Admin Aspirin 81 mg 05/24/17 10:00 05/24/17 09:54 Asa - PO 81 mg DAILY ON LICENSE OF [facility] Administration Atorvastatin Calcium 80 mg 05/24/17 22:00 Lipitor - PO HS ON LICENSE OF [facility] Diltiazem HCl 180 mg 05/23/17 22:00 05/24/17 09:54 Cardizem Cd - PO 180 mg BID ON LICENSE OF [facility] Administration Ferrous Sulfate 325 mg 05/24/17 10:00 05/24/17 09:54 Feosol - PO 325 mg DAILY [facility] Administration Hydralazine HCl 100 mg 05/23/17 22:00 05/24/17 13:53 Apresoline - PO 100 mg TID ON LICENSE OF [facility] Administration Insulin Aspart 1 vial 05/23/17 22:00 05/24/17 16:35 Novolog Vial Sliding Scale - SQ Not Given [facility] ON LICENSE OF [facility] Protocol Insulin Detemir 20 units 05/23/17 22:00 05/23/17 22:00 Levemir Vial SQ [address] [facility] Administration Sodium Bicarbonate 650 mg 05/24/17 10:00 05/24/17 09:54 Sodium Bicarbonate - PO 650 mg DAILY [facility] Administration Warfarin Sodium 7.5 mg 05/24/17 18:00 Coumadin - PO DAILY@1800 ON LICENSE OF [facility] ASSESSMENT/PLAN: Patient is a 76 year old female with a significant past medical history of diabetes, hypertension, atrial fibrillation, ablation (On Coumadin), asthma, current everyday smoker (3 cigarettes per day), DM, COPD (on inhalers daily), anemia, depression. She presents to the ED c/o of generalized fatigue. Daughter at the bedside and states that patient has been fatigued "on and off" for approximately 1 year but worsening in the last few days. Patient denies chest pain, endorses shortness of breath with ambulation. She also states that she vomited x 1 today, non bloody emesis. As per ED notes, patient's BP was elevated at 190/90 with and noted to be tachy @ 105s. The patient denies chest pain, headache or dizziness. Denies fever, chills, diarrhea and constipation. Denies dysuria, frequency, urgency and hematuria. Cardiology Rule out ACS Shortness of breath Trops elevated at 4.1 on admission, trended down to 2.86 Echo ordrered On cardiac cath tech Cardiology following A fib, ablation On coumadin INR 2.9, will reduce tonights dose to coumadin 5mg restart tomorrow 7.5mg tomorrow based on INR On Hydralazine 100mg TID On Cardizem 180mg BID Hypertension, chronic On Hydralazine Pulmonary Asthma COPD No in acute exacerbation Followed by Dr. Ramires Monitor respiratory status duonebs prn Endocrine On BGMs Novolog Renal CKD Followed by renal
[2017-05-24] MEDS ORDERED: ALBUTEROL SO4 2.5/IPRATROPIUM 0.5 INH SOL 3 ML VIAL.NEB. NEB PRN (18:41)
[2017-05-24] MEDS ORDERED: WARFARIN NA 5 MG TABLET (UD) PO ONE (18:45)
--- NOTE | 2017-05-24 21:38 | EKG ---
Test Reason : Blood Pressure : / mmHG Vent. Rate : 074 BPM Atrial Rate : 074 BPM P-R Int : 150 ms QRS Dur : 074 ms QT Int : 408 ms P-R-T Axes : 065 -29 082 degrees QTc Int : 452 ms NORMAL SINUS RHYTHM NONSPECIFIC T WAVE ABNORMALITY ABNORMAL ECG WHEN COMPARED WITH ECG OF 02-FEB-2017 15:35, CRITERIA FOR SEPTAL INFARCT ARE NO LONGER PRESENT Confirmed by ANALISA JONES MD ([id number]) on 05/24/2017 9:38:18 PM Referred By: Confirmed By:ANALISA JONES MD
[2017-05-24] MEDS: ATORVASTATIN CA 80 MG TABLET (FP) PO SCH (21:49)
[2017-05-24] MEDS: INSULIN DETEMIR 100 UNITS/ML MDV SQ SCH (21:50)
[2017-05-25] MEDS: INSULIN SLIDING SCALE (NOVOLOG) 1 VIAL SQ SCH ×4 (06:31→21:44)
[2017-05-25] MEDS: hydrALAZINE HCL 50 MG TABLET (FP) PO SCH ×3 (06:31→21:43)
--- NOTE | 2017-05-25 08:36 | PN ---
Progress Note, Physician Chief Complaint: no further CP, SOB or nausea History of Present Illness: TELE: NSR, APCs - Current Medication List Current Medications: Active Medications Albuterol/Ipratropium (Duoneb -) 1 amp NEB Q6H PRN PRN Reason: SHORTNESS OF BREATH Aspirin (Asa -) 81 mg PO DAILY [facility] Last Admin: 05/24/17 09:54 Dose: 81 mg Atorvastatin Calcium (Lipitor -) 80 mg PO HS [facility] Last Admin: 05/24/17 21:49 Dose: 80 mg Diltiazem HCl (Cardizem Cd -) 180 mg PO BID [facility] Last Admin: 05/24/17 21:49 Dose: 180 mg Ferrous Sulfate (Feosol -) 325 mg PO DAILY [facility] Last Admin: 05/24/17 09:54 Dose: 325 mg Hydralazine HCl (Apresoline -) 100 mg PO TID [facility] Last Admin: 05/25/17 06:31 Dose: 100 mg Insulin Aspart (Novolog Vial Sliding Scale -) 1 vial SQ [facility] PRN Reason: Protocol Last Admin: 05/25/17 06:31 Dose: Not Given Insulin Detemir (Levemir Vial) 20 units SQ [facility] Last Admin: 05/24/17 21:50 Dose: 20 units Sodium Bicarbonate (Sodium Bicarbonate -) 650 mg PO DAILY [facility] Last Admin: 05/24/17 09:54 Dose: 650 mg Warfarin Sodium (Coumadin -) 7.5 mg PO DAILY@1800 [facility] - Objective Vital Signs: Vital Signs Temperature 98.3 F 05/25/17 06:00 Pulse Rate 68 05/25/17 06:00 Respiratory Rate 18 05/25/17 06:00 Blood Pressure 150/59 05/25/17 06:00 O2 Sat by Pulse Oximetry (%) 98 05/24/17 21:00 Constitutional: Yes: No Distress Cardiovascular: Yes: Regular Rate and Rhythm Respiratory: Yes: CTA Bilaterally Gastrointestinal: Yes: Soft Edema: No Neurological: Yes: Alert, Oriented Labs: CBC, BMP 05/24/17 09:53 05/24/17 09:53 INR, PTT INR 2.92 (0.82-1.09) H D 05/24/17 09:53 Laboratory Tests 05/23/17 05/23/17 05/24/17 13:30 19:50 03:40 Troponin I 4.13 H* 3.76 H* 2.86 H* 05/24/17 09:53 Troponin I 1.93 H* Laboratory Tests 05/24/17 09:53 INR 2.92 H D - ....Imaging EKG: Image Reviewed Problem List - Problems (1) NSTEMI (non-ST elevated myocardial infarction) Code(s): I21.4 - NON-ST ELEVATION (NSTEMI) MYOCARDIAL INFARCTION (2) Type 2 diabetes mellitus Code(s): E11.9 - TYPE 2 DIABETES MELLITUS WITHOUT COMPLICATIONS Qualifiers: Diabetes mellitus complication status: with circulatory complication (3) CKD stage 4 due to type 2 diabetes mellitus Code(s): E11.22 - TYPE 2 DIABETES MELLITUS W DIABETIC CHRONIC KIDNEY DISEASE; N18.4 - CHRONIC KIDNEY DISEASE, STAGE 4 (SEVERE) (4) Hypertension Code(s): I10 - ESSENTIAL (PRIMARY) HYPERTENSION Qualifiers: Hypertension type: essential hypertension Qualified Code(s): I10 - Essential (primary) hypertension (5) Diastolic CHF Code(s): I50.30 - UNSPECIFIED DIASTOLIC (CONGESTIVE) HEART FAILURE Qualifiers: Heart failure chronicity: chronic Qualified Code(s): I50.32 - Chronic diastolic (congestive) heart failure (6) COPD (chronic obstructive pulmonary disease) Code(s): J44.9 - CHRONIC OBSTRUCTIVE PULMONARY DISEASE, UNSPECIFIED Qualifiers: COPD type: chronic bronchitis (7) Depression Code(s): F32.9 - MAJOR DEPRESSIVE DISORDER, SINGLE EPISODE, UNSPECIFIED Qualifiers: Depression Type: unspecified Qualified Code(s): F32.9 - Major depressive disorder, single episode, unspecified (8) Hyperlipidemia Code(s): E78.5 - HYPERLIPIDEMIA, UNSPECIFIED Qualifiers: Hyperlipidemia type: pure hypercholesterolemia Qualified Code(s): E78.00 - Pure hypercholesterolemia, unspecified; E78.0 - Pure hypercholesterolemia (9) Peripheral arterial disease Code(s): I73.9 - PERIPHERAL VASCULAR DISEASE, UNSPECIFIED Assessment/Plan IMP: NSTEMI, TnI trending down CKD DM HTN PAF on AC H/o DVT (with current LE duplex negative) COPD REC: 1. Telemetry 2. Echo for EF assessment and to assess RVSP, pericardium- today 3. ASA 81mg daily; patient has had adverse reactions to beta blockers (fatigue and worsened dyspnea). Hold for now. Cont. Lipitor 80mg daily 4. BP optimization. 5. INR goal 2-3 for PAF. 6. Long discussion with patient today about the option of cardiac cath. Benefits of definitive dx and possible revasc discussed in detail. Small risks of cath including possibility of worsening renal failure and need for HD discussed. At this time, she has refused cath: she wants to avoid HD and is unwilling to risk worsening renal fxn. She is well aware of the risks of associated with undiagnosed CAD including recurrent OR, CHF, . She prefers the alternative strategy of medical therapy and has agreed to a pharm MIBI tomorrow for assessment of ischemic burden/ risk stratification.
[2017-05-25] MEDS: ASPIRIN 81 MG CHEWABLE TABLETS PO SCH (10:21)
[2017-05-25] MEDS: FERROUS SO4 325 MG TABLET (FP) PO SCH (10:21)
[2017-05-25] MEDS: SODIUM BICARBONATE 650 MG TABLET PO SCH (10:21)
[2017-05-25] MEDS ORDERED: INSULIN (NOVOLOG) ASPART 100 UNITS/ML 10ML VIAL ONE (11:20)
--- NOTE | 2017-05-25 11:28 | PN ---
Progress Note (short form) - Note Progress Note: PULMONARY CONSULTATION DICTATED 05/25/17 IMP DYSPNEA ACUTE NSTEMI ASHD ACUTE ON CHRONIC RENAL FAILURE COPD NOT IN ACUTE EXACERBATION AFIB H/O DVT IDDM PVD PLAN CARDIAC W/U IN PROGRESS O2 INHALED BRONCHODILATORS PRN MONITOR LYTES,RENAL FUNCTION TREND TROPONINS AC DR GOULD Problem List - Problems (1) COPD (chronic obstructive pulmonary disease) Code(s): J44.9 - CHRONIC OBSTRUCTIVE PULMONARY DISEASE, UNSPECIFIED Qualifiers: COPD type: chronic bronchitis (2) NSTEMI (non-ST elevated myocardial infarction) Code(s): I21.4 - NON-ST ELEVATION (NSTEMI) MYOCARDIAL INFARCTION (3) Hypertension Code(s): I10 - ESSENTIAL (PRIMARY) HYPERTENSION Qualifiers: Hypertension type: essential hypertension Qualified Code(s): I10 - Essential (primary) hypertension (4) Acute on chronic renal insufficiency Code(s): N28.9 - DISORDER OF KIDNEY AND URETER, UNSPECIFIED; N18.9 - CHRONIC KIDNEY DISEASE, UNSPECIFIED (5) Anemia Code(s): D64.9 - ANEMIA, UNSPECIFIED (6) IDDM (insulin dependent diabetes mellitus) Code(s): E11.9 - TYPE 2 DIABETES MELLITUS WITHOUT COMPLICATIONS; Z79.4 - [facility] (CURRENT) USE OF INSULIN (7) Shortness of breath Code(s): R06.02 - SHORTNESS OF BREATH (8) Weakness Code(s): R53.1 - WEAKNESS (9) History of DVT (deep vein thrombosis) Code(s): Z86.718 - PERSONAL HISTORY OF OTHER VENOUS THROMBOSIS AND EMBOLISM (10) Peripheral arterial disease Code(s): I73.9 - PERIPHERAL VASCULAR DISEASE, UNSPECIFIED
[2017-05-25 11:40] LABS: BASO % 0.8 % (0-2.0); EOS % 0.5 % (0-4.5); HEMOGLOBIN 10.7 GM/dL (10.7-15.3); LYMPH % 25.3 % (8-40); MCH 31.7 pg (25.7-33.7); MCHC 33.4 g/dl (32.0-36.0); MEAN CELL VOLUME 94.9 fl (80-96); MEAN PLT VOLUME 9.3 fl (7.5-11.1); MONO % 9.6 % (3.8-10.2); NEUT % 63.8 % (42.8-82.8); PLATELET COUNT 190 K/MM3 (134-434); RBC 3.38 M/mm3 (3.60-5.2); RDW 15.7 % (11.6-15.6); WHITE BLOOD COUNT 6.6 K/mm3 (4.0-10.0)
[2017-05-25 11:51] LABS: INR 2.26 (0.82-1.09); PROTHROMBIN TIME (PATIENT) 25.5 SEC (9.98-11.88)
[2017-05-25 12:28] LABS: ALBUMIN 2.7 g/dl (3.4-5.0); ANION GAP 11 (8-16); BLOOD UREA NITROGEN 38 mg/dL (7-18); CALCIUM 7.9 mg/dL (8.5-10.1); CHLORIDE 108 mmol/L (98-107); CO2 21 mmol/L (21-32); GLUCOSE,RANDOM 193 mg/dL (74-106); MAGNESIUM 2.1 mg/dL (1.8-2.4); POTASSIUM 4.4 mmol/L (3.5-5.1); SODIUM 140 mmol/L (136-145)
[2017-05-25 12:32] LABS: ALK PHOS 49 U/L (45-117); BILIRUBIN,TOTAL 0.5 mg/dL (0.2-1.0); SGOT/AST 11 U/L (15-37); SGPT/ALT 14 U/L (12-78); TOT PROT 5.7 g/dl (6.4-8.2)
--- NOTE | 2017-05-25 14:53 | PN ---
Physical Exam: SUBJECTIVE: Patient seen and examined at the bedside. OBJECTIVE: for stress test tomorrow echo pending shortness of breath at rest or with minimal activity Vital Signs Period Temp Pulse Resp BP Sys/Renee Pulse Ox Last 24 Hr 98.2 F-99.1 F 68-74 18-18 148-158/49-64 98 GENERAL: Awake, alert, and fully oriented, in no acute distress. HEAD: Normal with no signs of trauma. EYES: Pupils equal, round and reactive to light, extraocular movements intact, sclera anicteric, conjunctiva clear. No lid lag. EARS, NOSE, THROAT: Ears normal, nares patent, oropharynx clear without exudates. Moist mucous membranes. NECK: Normal range of motion, supple without lymphadenopathy, JVD, or masses. LUNGS: mild expiratory wheezing on upper lobes, diminished lower lobes, tolerating room air HEART: Regular rate and rhythm, normal S1 and S2 without murmur, rub or gallop. ABDOMEN: Soft, nontender, not distended, normoactive bowel sounds, no guarding, no rebound, no masses. No hepatomegaly or splenomegaly. MUSCULOSKELETAL: Normal range of motion at all joints. No bony deformities or tenderness. No CVA tenderness. UPPER EXTREMITIES: 2+ pulses, warm, well-perfused. No cyanosis. No clubbing. No peripheral edema. LOWER EXTREMITIES: 2+ pulses, warm, well-perfused. No calf tenderness. No peripheral edema. NEUROLOGICAL: Cranial nerves II-XII intact. Normal speech. Normal gait. PSYCHIATRIC: Cooperative. Good eye contact. Appropriate mood and affect. SKIN: Warm, dry, normal turgor, no rashes or lesions noted, normal capillary refill. Laboratory Results - last 24 hr 05/24/17 05/24/17 05/24/17 09:53 09:53 16:34 WBC RBC Hgb Hct MCV MCH MCHC RDW Plt Count MPV Neutrophils % Lymphocytes % Monocytes % Eosinophils % Basophils % PT with INR INR Sodium 143 Potassium 4.5 Chloride 111 H Carbon Dioxide 21 Anion Gap 11 BUN 30 H Creatinine 3.0 H Creat Clearance w eGFR 15.09 POC Glucometer 121 Random Glucose 166 H Calcium 8.2 L Magnesium 1.5 L Total Bilirubin 0.2 D AST 14 L ALT 12 Alkaline Phosphatase 52 Troponin I Cancelled 1.93 H* Total Protein 5.8 L Albumin 2.7 L Triglycerides 117 Cholesterol 211 H Total LDL Cholesterol 150 H HDL Cholesterol 43 05/24/17 05/25/17 05/25/17 21:48 05:45 10:05 WBC 6.6 RBC 3.38 L Hgb 10.7 Hct 32.0 L MCV 94.9 MCH 31.7 MCHC 33.4 RDW 15.7 H Plt Count 190 MPV 9.3 Neutrophils % 63.8 Lymphocytes % 25.3 Monocytes % 9.6 Eosinophils % 0.5 Basophils % 0.8 PT with INR INR Sodium Potassium Chloride Carbon Dioxide Anion Gap BUN Creatinine Creat Clearance w eGFR POC Glucometer 361 89 Random Glucose Calcium Magnesium Total Bilirubin AST ALT Alkaline Phosphatase Troponin I Total Protein Albumin Triglycerides Cholesterol Total LDL Cholesterol HDL Cholesterol 05/25/17 05/25/17 10:05 10:05 WBC RBC Hgb Hct MCV MCH MCHC RDW Plt Count MPV Neutrophils % Lymphocytes % Monocytes % Eosinophils % Basophils % PT with INR 25.50 H INR 2.26 H Sodium 140 Potassium 4.4 Chloride 108 H Carbon Dioxide 21 Anion Gap 11 BUN 38 H Creatinine 3.0 H Creat Clearance w eGFR 15.09 POC Glucometer Random Glucose 193 H Calcium 7.9 L Magnesium 2.1 Total Bilirubin 0.5 D AST 11 L ALT 14 Alkaline Phosphatase 49 Troponin I Total Protein 5.7 L Albumin 2.7 L Triglycerides Cholesterol Total LDL Cholesterol HDL Cholesterol Active Medications Generic Name Dose Route Start Last Admin Trade Name Freq PRN Reason Stop Dose Admin Albuterol/Ipratropium 1 amp 05/24/17 18:41 Duoneb - NEB Q6H PRN SHORTNESS OF BREATH Aspirin 81 mg 05/24/17 10:00 05/25/17 10:21 Asa - PO 81 mg DAILY [facility] Administration Atorvastatin Calcium 80 mg 05/24/17 22:00 05/24/17 21:49 Lipitor - PO 80 mg HS [facility] Administration Diltiazem HCl 180 mg 05/23/17 22:00 05/25/17 10:21 Cardizem Cd - PO 180 mg BID [facility] Administration Ferrous Sulfate 325 mg 05/24/17 10:00 05/25/17 10:21 Feosol - PO 325 mg DAILY [facility] Administration Hydralazine HCl 100 mg 05/23/17 22:00 05/25/17 06:31 Apresoline - PO 100 mg TID [facility] Administration Insulin Aspart 1 vial 05/23/17 22:00 05/25/17 11:20 Novolog Vial Sliding Scale - SQ 12 units ACHS [facility] Administration Protocol Insulin Detemir 20 units 05/23/17 22:00 05/24/17 21:50 Levemir Vial SQ 20 units HS [facility] Administration Sodium Bicarbonate 650 mg 05/24/17 10:00 05/25/17 10:21 Sodium Bicarbonate - PO 650 mg DAILY [facility] Administration Warfarin Sodium 7.5 mg 05/24/17 18:00 Coumadin - PO DAILY@1800 [facility] ASSESSMENT/PLAN: Patient is a 76 year old female with a significant past medical history of diabetes, hypertension, atrial fibrillation, ablation (On Coumadin), asthma, current everyday smoker (3 cigarettes per day), DM, COPD (on inhalers daily), anemia, depression, hx of DVT. She presents to the ED c/o of generalized fatigue. Daughter at the bedside and states that patient has been fatigued "on and off" for approximately 1 year but worsening in the last few days. Patient denies chest pain, endorses shortness of breath with ambulation. She also states that she vomited x 1 today, non bloody emesis. As per ED notes, patient's BP was elevated at 190/90 with and noted to be tachy @ 105s. The patient denies chest pain, headache or dizziness. Denies fever, chills, diarrhea and constipation. Denies dysuria, frequency, urgency and hematuria. Cardiology NSTEMI Trops elevated at 4.1 on admission, trended down to 1.93 No chest pain but profoundly fatigued Echo ordrered and pending For stress test tomorrow On court monitor 2-4 liter of nasal cannula for shortness of breath Cardiology following A fib, ablation DVT history Coumadin 7.5mg daily based on INR INR 2.26, goal inr (2-3) Hypertension, chronic On Hydralazine 100mg TID On Cardizem 180mg BID Hyperlipidemia Started on Lipitor 80mg @ hs Pulmonary Asthma/COPD No in acute exacerbation Followed by Dr. Ramires Monitor respiratory status duonebs prn Endocrine Diabetes On BGMs Novolog Renal CKD Followed by renal F.E.N. Fluids: PO adequate Electrolytes: monitorr Nutrition: diabetic diet Prophy: DVT: on Coumadin GI: Protonix Visit type - Emergency Visit Emergency Visit: Yes ED Registration Date: 05/23/17 Care time: The patient presented to the Emergency Department on the above date and was hospitalized for further evaluation of their emergent condition. - New Patient This patient is new to me today: No - Critical Care Critical Care patient: No - Discharge Referral Referred to [facility] No
--- NOTE | 2017-05-25 17:13 | CONS ---
PULMONARY CONSULTATION DATE OF CONSULTATION: 05/25/2017 REFERRING PHYSICIAN: Mandy Yu NP HISTORY: The patient is a 76-year-old black female known to me from previous hospitalization with past medical history of ASHD, diabetes, hypertension, atrial fibrillation, status post ablation, currently on Coumadin, DVT, asthma/COPD, uses inhalers, anemia, hyperlipidemia, depression, history of tobacco use, quit 1 year ago. Admitted to [facility] secondary to generalized weakness, shortness of breath, nausea and vomiting. The patient states she had breakfast and then had an episode of emesis. She denied any fever or chills. States the vomitus was nonbloody and non-bilious. She denies any complaints of abdominal pain at the time, denied any diarrhea at the time. The patient also complained of increasing shortness of breath. When EMS arrived at patient's home, the patient's BP was elevated to 190/90 and heart rate was 105. The patient was transferred to the ER with the above. In the ER she was noted to have elevated creatinine of 3.0 which was increased from prior. She was admitted. She was also noted to have positive troponins with a level of 1.93. She admitted to the telemetry unit for further management. The patient was evaluated by Dr. Leyva for cardiology consultation. Parlier that patient most likely had non-ST ID. Of note also is patient had right heart catheterization years ago which showed no evidence of pulmonary hypertension. The patient was advised cardiac catheterization but refused secondary to renal insufficiency. PAST MEDICAL HISTORY: Again includes ASHD, congestive heart failure, COPD, history of tobacco use, atrial fibrillation on Coumadin, A flutter status post ablation, kidney disease, depression, anxiety, chronic shortness of breath. REVIEW OF SYSTEMS: Positive dyspnea on exertion. No chest pain. Positive nausea. Positive vomiting. No fever, no chills. No hemoptysis. No abdominal pain. No diarrhea. CURRENT MEDICATIONS: Include: Sodium bicarbonate, Coumadin, DuoNeb, Cardizem CD, Apresoline, Lipitor, NovoLog, , Feosol, aspirin. PHYSICAL EXAMINATION: General: The patient is a well-developed and nourished female, drowsy, in no acute respiratory distress. Vital Signs: She is currently afebrile. Blood pressure 150/59. Respiratory rate is 18. O2 saturation is 98% on room air. HEENT: Exam is normocephalic, atraumatic. Neck: Supple. Heart: Irregular S1, S2. Chest: Clear. Abdomen: Soft. Bowel sounds positive. Extremities: No cyanosis or edema. LABORATORY: BUN is 30, creatinine 3.0. Troponin on admission was 3 to 4.1. Most recent is 1.93. WBC is 6.3, hemoglobin 11.1, hematocrit 35.5, platelet count of 200,000. Chemistries: BUN is 30, creatinine 3.0. Troponin as noted. Chest x-ray: No infiltrates and no effusions. Duplex lower extremities: No evidence of DVT. There is a left popliteal cyst. IMPRESSION: 1. Acute non-ST elevation myocardial infarction. 2. Arteriosclerotic heart disease. 3. Atrial fibrillation with history of atrial flutter status post ablation. 4. Chronic obstructive pulmonary disease. Currently does not appear in acute exacerbation. 5. Acute on chronic kidney failure. 6. Peripheral vascular disease. 7. pain. 8. History of deep venous thrombosis. 9. Hypertension. PLAN: Continue anticoagulation. Continue cardiology workup as per Cardiology. Supplemental O2. Inhaled bronchodilators p.r.n. Monitor and trend troponins. Monitor renal function. KACEY GOULD M.D. [id number]
[2017-05-25] MEDS: WARFARIN NA 7.5 MG TABLET (FP) PO SCH (17:34)
--- NOTE | 2017-05-25 18:20 | PN ---
Progress Note (short form) - Note Progress Note: Renal follow up for CKD Pt seen and examined at the bedside no acute complaints fatigued, has mild dyspnea no CP, fever, chills, N/V/D Vital Signs Temperature 98.4 F 05/25/17 14:00 Pulse Rate 70 05/25/17 14:00 Respiratory Rate 18 05/25/17 10:00 Blood Pressure 148/60 05/25/17 14:00 O2 Sat by Pulse Oximetry (%) 96 05/25/17 10:00 Intake & Output 05/22/17 05/23/17 05/24/17 05/25/17 23:59 23:59 23:59 23:59 Intake Total 120 990 560 Balance 120 990 560 Weight 92.533 kg 91.444 kg 93.44 kg NAD awake and alert RRR, no M/R CTA, no rales or wheeze soft, NT/ND Trace LE edema, no clubbing or cyanosis No neurologic defects CBC, BMP 05/23/17 13:30 05/23/17 13:30 Current Medications Aspirin (Asa -) 81 mg PO DAILY [facility] Atorvastatin Calcium (Lipitor -) 80 mg PO HS [facility] Diltiazem HCl (Cardizem Cd -) 180 mg PO BID [facility] Last Admin: 05/23/17 21:59 Dose: 180 mg Ferrous Sulfate (Feosol -) 325 mg PO DAILY [facility] Hydralazine HCl (Apresoline -) 100 mg PO TID [facility] Last Admin: 05/24/17 06:15 Dose: 100 mg Insulin Aspart (Novolog Vial Sliding Scale -) 1 vial SQ [facility] PRN Reason: Protocol Last Admin: 05/24/17 06:18 Dose: Not Given Insulin Detemir (Levemir Vial) 20 units SQ HS [facility] Last Admin: 05/23/17 22:00 Dose: 20 units Sodium Bicarbonate (Sodium Bicarbonate -) 650 mg PO DAILY [facility] Warfarin Sodium (Coumadin -) 7.5 mg PO DAILY@1800 [facility] 76 year old woman with PMhx of CKD stage 4 with proteinuria, COPD, AFib, Hypertension, DM who presented with N/V and Fatigue and found to have NSTEMI. #NSTEMI #CKD stage 4 likely due to diabetic nephropathy #Hypertension #IDDM #Afib #COPD Renal function stable VIKAS risk same as listed yesterday for stress testing tomorrow and then to determine course of care continue Cardizem, Hydralazine for BP control continue sodium bicarbonate Thank you Will follow Tylor To DO
[2017-05-25] MEDS: ATORVASTATIN CA 80 MG TABLET (FP) PO SCH (21:43)
[2017-05-25] MEDS: INSULIN DETEMIR 100 UNITS/ML MDV SQ SCH (21:43)
[2017-05-26] MEDS: hydrALAZINE HCL 50 MG TABLET (FP) PO SCH ×3 (06:07→21:17)
[2017-05-26] MEDS: INSULIN SLIDING SCALE (NOVOLOG) 1 VIAL SQ SCH ×4 (06:16→21:27)
[2017-05-26 07:21] LABS: BASO % 0.9 % (0-2.0); EOS % 0.9 % (0-4.5); HEMATOCRIT 30.9 % (32.4-45.2); HEMOGLOBIN 10.4 GM/dL (10.7-15.3); MCH 32.1 pg (25.7-33.7); MCHC 33.7 g/dl (32.0-36.0); MEAN CELL VOLUME 95.2 fl (80-96); MEAN PLT VOLUME 9.3 fl (7.5-11.1); MONO % 10.5 % (3.8-10.2); NEUT % 55.7 % (42.8-82.8); PLATELET COUNT 176 K/MM3 (134-434); RBC 3.24 M/mm3 (3.60-5.2); RDW 15.8 % (11.6-15.6)
[2017-05-26] MEDS ORDERED: INSULIN (NOVOLOG) ASPART 100 UNITS/ML 10ML VIAL ONE ×2 (07:30→17:57)
[2017-05-26 07:52] LABS: ANION GAP 9 (8-16); BLOOD UREA NITROGEN 42 mg/dL (7-18); CHLORIDE 107 mmol/L (98-107); CO2 23 mmol/L (21-32); GLUCOSE,RANDOM 126 mg/dL (74-106); POTASSIUM 4.6 mmol/L (3.5-5.1); SODIUM 139 mmol/L (136-145)
[2017-05-26 07:57] LABS: ALBUMIN 2.7 g/dl (3.4-5.0); ALK PHOS 42 U/L (45-117); BILIRUBIN,TOTAL 0.4 mg/dL (0.2-1.0); CALCIUM 7.9 mg/dL (8.5-10.1); MAGNESIUM 2.2 mg/dL (1.8-2.4); SGOT/AST 10 U/L (15-37); SGPT/ALT 13 U/L (12-78); TOT PROT 5.3 g/dl (6.4-8.2)
--- NOTE | 2017-05-26 08:45 | PN ---
Progress Note, Physician Chief Complaint: no further CP, SOB or nausea Enzymes trended down, she is now > 48 hrs since event with normal LV function on echo and no V-arrhythmias on tele - Current Medication List Current Medications: Active Medications Albuterol/Ipratropium (Duoneb -) 1 amp NEB Q6H PRN PRN Reason: SHORTNESS OF BREATH Aspirin (Asa -) 81 mg PO DAILY [facility] Last Admin: 05/25/17 10:21 Dose: 81 mg Atorvastatin Calcium (Lipitor -) 80 mg PO HS [facility] Last Admin: 05/25/17 21:43 Dose: 80 mg Diltiazem HCl (Cardizem Cd -) 180 mg PO BID [facility] Last Admin: 05/25/17 21:44 Dose: 180 mg Ferrous Sulfate (Feosol -) 325 mg PO DAILY [facility] Last Admin: 05/25/17 10:21 Dose: 325 mg Hydralazine HCl (Apresoline -) 100 mg PO TID [facility] Last Admin: 05/26/17 06:07 Dose: 100 mg Insulin Aspart (Novolog Vial Sliding Scale -) 1 vial SQ [facility] PRN Reason: Protocol Last Admin: 05/26/17 06:16 Dose: Not Given Insulin Detemir (Levemir Vial) 25 units SQ [facility] Last Admin: 05/25/17 21:43 Dose: 25 units Sodium Bicarbonate (Sodium Bicarbonate -) 650 mg PO DAILY [facility] Last Admin: 05/25/17 10:21 Dose: 650 mg Warfarin Sodium (Coumadin -) 7.5 mg PO DAILY@1800 [facility] Last Admin: 05/25/17 17:34 Dose: 7.5 mg - Objective Vital Signs: Vital Signs Temperature 98.8 F 05/26/17 05:15 Pulse Rate 60 05/26/17 05:15 Respiratory Rate 20 05/26/17 05:15 Blood Pressure 140/46 05/26/17 05:15 O2 Sat by Pulse Oximetry (%) 99 05/25/17 21:00 Constitutional: Yes: Calm Respiratory: Yes: CTA Bilaterally (no wheezing) Gastrointestinal: Yes: Soft Edema: No Neurological: Yes: Alert, Oriented ...Motor Strength: WNL Labs: CBC, BMP 05/26/17 06:57 05/26/17 06:57 INR, PTT INR 2.26 (0.82-1.09) H 05/25/17 10:05 Laboratory Tests 05/25/17 05/26/17 05/26/17 10:05 06:57 06:57 WBC 5.0 Hgb 10.4 L Plt Count 176 INR 2.26 H Sodium 139 Potassium 4.6 BUN 42 H Creatinine 3.0 H - ....Imaging EKG: Image Reviewed (NSR.) Other: Other (Echo: normal LV function, no wall motion abnormalities) Problem List - Problems (1) NSTEMI (non-ST elevated myocardial infarction) Code(s): I21.4 - NON-ST ELEVATION (NSTEMI) MYOCARDIAL INFARCTION (2) Type 2 diabetes mellitus Code(s): E11.9 - TYPE 2 DIABETES MELLITUS WITHOUT COMPLICATIONS Qualifiers: Diabetes mellitus complication status: with circulatory complication (3) CKD stage 4 due to type 2 diabetes mellitus Code(s): E11.22 - TYPE 2 DIABETES MELLITUS W DIABETIC CHRONIC KIDNEY DISEASE; N18.4 - CHRONIC KIDNEY DISEASE, STAGE 4 (SEVERE) (4) Hypertension Code(s): I10 - ESSENTIAL (PRIMARY) HYPERTENSION Qualifiers: Hypertension type: essential hypertension Qualified Code(s): I10 - Essential (primary) hypertension (5) Diastolic CHF Code(s): I50.30 - UNSPECIFIED DIASTOLIC (CONGESTIVE) HEART FAILURE Qualifiers: Heart failure chronicity: chronic Qualified Code(s): I50.32 - Chronic diastolic (congestive) heart failure (6) COPD (chronic obstructive pulmonary disease) Code(s): J44.9 - CHRONIC OBSTRUCTIVE PULMONARY DISEASE, UNSPECIFIED Qualifiers: COPD type: chronic bronchitis (7) Depression Code(s): F32.9 - MAJOR DEPRESSIVE DISORDER, SINGLE EPISODE, UNSPECIFIED Qualifiers: Depression Type: unspecified Qualified Code(s): F32.9 - Major depressive disorder, single episode, unspecified (8) Hyperlipidemia Code(s): E78.5 - HYPERLIPIDEMIA, UNSPECIFIED Qualifiers: Hyperlipidemia type: pure hypercholesterolemia Qualified Code(s): E78.00 - Pure hypercholesterolemia, unspecified; E78.0 - Pure hypercholesterolemia (9) Peripheral arterial disease Code(s): I73.9 - PERIPHERAL VASCULAR DISEASE, UNSPECIFIED Assessment/Plan IMP: NSTEMI, TnI trending down now > 48 hrs since event with no recurrent sx CKD DM HTN PAF on AC H/o DVT (with current LE duplex negative) COPD REC: 1. Telemetry with no V arrhythmias since admission, normal sinus 2. Echo showed normal LV function with no wall motion abnormalities 3. ASA 81mg daily; patient has had adverse reactions to beta blockers (fatigue and worsened dyspnea). Hold for now. Cont. Lipitor 80mg daily 4. BP optimization. 5. INR goal 2-3 for PAF. 6. Long discussion with patient today about the option of cardiac cath. Benefits of definitive dx and possible revasc discussed in detail. Small risks of cath including possibility of worsening renal failure and need for HD discussed. At this time, she has refused cath: she wants to try to avoid HD. She is well aware of the risks of associated with undiagnosed CAD including recurrent TN, CHF, . She prefers the alternative strategy of medical therapy and has agreed to a pharm MIBI for assessment of ischemic burden/ risk stratification. If stress test shows high risk findings, she may change her mind re cath.
[2017-05-26] MEDS ORDERED: REGADENOSON 0.4 MG/5 ML PRE-FILLED SYRINGE IVPUSH ONE ×2 (10:30→11:56)
[2017-05-26] MEDS: SODIUM BICARBONATE 650 MG TABLET PO SCH (13:26)
[2017-05-26] MEDS: FERROUS SO4 325 MG TABLET (FP) PO SCH (13:26)
[2017-05-26] MEDS: ASPIRIN 81 MG CHEWABLE TABLETS PO SCH (13:26)
--- NOTE | 2017-05-26 13:26 | PN ---
Progress Note (short form) - Note Progress Note: No CP or SOB. Feels better today. No acute events overnight. Intake & Output 05/23/17 05/24/17 05/25/17 05/26/17 23:59 23:59 23:59 23:59 Intake Total 120 990 990 120 Balance 120 990 990 120 Weight 204 lb 201 lb 9.6 oz 206 lb 208 lb 8 oz Last Vital Signs Temp Pulse Resp BP Pulse Ox 98.8 F 60 20 140/46 99 05/26/17 05:15 05/26/17 05:15 05/26/17 05:15 05/26/17 05:15 05/25/17 21:00 Active Medications Albuterol/Ipratropium (Duoneb -) 1 amp NEB Q6H PRN PRN Reason: SHORTNESS OF BREATH Aspirin (Asa -) 81 mg PO DAILY [facility] Last Admin: 05/26/17 13:26 Dose: 81 mg Atorvastatin Calcium (Lipitor -) 80 mg PO [facility] Last Admin: 05/25/17 21:43 Dose: 80 mg Diltiazem HCl (Cardizem Cd -) 180 mg PO BID [facility] Last Admin: 05/26/17 13:26 Dose: 180 mg Ferrous Sulfate (Feosol -) 325 mg PO DAILY [facility] Last Admin: 05/26/17 13:26 Dose: 325 mg Hydralazine HCl (Apresoline -) 100 mg PO TID [facility] Last Admin: 05/26/17 13:26 Dose: 100 mg Insulin Aspart (Novolog Vial Sliding Scale -) 1 vial SQ [facility] PRN Reason: Protocol Last Admin: 05/26/17 06:16 Dose: Not Given Insulin Detemir (Levemir Vial) 25 units SQ [facility] Last Admin: 05/25/17 21:43 Dose: 25 units Sodium Bicarbonate (Sodium Bicarbonate -) 650 mg PO DAILY [facility] Last Admin: 05/26/17 13:26 Dose: 650 mg Warfarin Sodium (Coumadin -) 7.5 mg PO DAILY@1800 [facility] Last Admin: 05/25/17 17:34 Dose: 7.5 mg GENERAL: NAD HEAD: Normal with no signs of trauma. EYES: sclera anicteric, conjunctiva clear. No lid lag. EARS, NOSE, THROAT: Moist mucous membranes. NECK: Normal range of motion, supple without lymphadenopathy, JVD, or masses. LUNGS: Few scattered rhonchi HEART: Regular rate and rhythm, normal S1 and S2 without murmur, rub or gallop. ABDOMEN: Soft, nontender, not distended, normoactive bowel sounds, no guarding, no rebound, no masses. No hepatomegaly or splenomegaly. MUSCULOSKELETAL: Normal range of motion at all joints. No bony deformities or tenderness. No CVA tenderness. UPPER EXTREMITIES: 2+ pulses, warm, well-perfused. No cyanosis. No clubbing. No peripheral edema. LOWER EXTREMITIES: 2+ pulses, warm, well-perfused. No calf tenderness. No peripheral edema. NEUROLOGICAL: Non-focal PSYCHIATRIC: Cooperative. SKIN: Warm, dry, normal turgor, no rashes or lesions noted, normal capillary refill. Laboratory Results - last 24 hr 05/25/17 05/25/17 05/25/17 11:18 17:32 20:00 WBC RBC Hgb Hct MCV MCH MCHC RDW Plt Count MPV Neutrophils % Lymphocytes % Monocytes % Eosinophils % Basophils % Sodium Potassium Chloride Carbon Dioxide Anion Gap BUN Creatinine Creat Clearance w eGFR POC Glucometer 484 129 Random Glucose Calcium Magnesium Total Bilirubin AST ALT Alkaline Phosphatase Troponin I 1.04 H* Total Protein Albumin 05/25/17 05/26/17 05/26/17 21:25 05:37 06:57 WBC 5.0 RBC 3.24 L Hgb 10.4 L Hct 30.9 L MCV 95.2 MCH 32.1 MCHC 33.7 RDW 15.8 H Plt Count 176 MPV 9.3 Neutrophils % 55.7 Lymphocytes % 32.0 D Monocytes % 10.5 H Eosinophils % 0.9 Basophils % 0.9 Sodium Potassium Chloride Carbon Dioxide Anion Gap BUN Creatinine Creat Clearance w eGFR POC Glucometer 203 138 Random Glucose Calcium Magnesium Total Bilirubin AST ALT Alkaline Phosphatase Troponin I Total Protein Albumin 05/26/17 06:57 WBC RBC Hgb Hct MCV MCH MCHC RDW Plt Count MPV Neutrophils % Lymphocytes % Monocytes % Eosinophils % Basophils % Sodium 139 Potassium 4.6 Chloride 107 Carbon Dioxide 23 Anion Gap 9 BUN 42 H Creatinine 3.0 H Creat Clearance w eGFR 15.09 POC Glucometer Random Glucose 126 H Calcium 7.9 L Magnesium 2.2 Total Bilirubin 0.4 AST 10 L ALT 13 Alkaline Phosphatase 42 L Troponin I Total Protein 5.3 L Albumin 2.7 L Problem List - Problems (1) COPD (chronic obstructive pulmonary disease) Code(s): J44.9 - CHRONIC OBSTRUCTIVE PULMONARY DISEASE, UNSPECIFIED Qualifiers: COPD type: chronic bronchitis (2) NSTEMI (non-ST elevated myocardial infarction) Code(s): I21.4 - NON-ST ELEVATION (NSTEMI) MYOCARDIAL INFARCTION (3) Hypertension Code(s): I10 - ESSENTIAL (PRIMARY) HYPERTENSION Qualifiers: Hypertension type: essential hypertension Qualified Code(s): I10 - Essential (primary) hypertension (4) Acute on chronic renal insufficiency Code(s): N28.9 - DISORDER OF KIDNEY AND URETER, UNSPECIFIED; N18.9 - CHRONIC KIDNEY DISEASE, UNSPECIFIED (5) Anemia Code(s): D64.9 - ANEMIA, UNSPECIFIED (6) IDDM (insulin dependent diabetes mellitus) Code(s): E11.9 - TYPE 2 DIABETES MELLITUS WITHOUT COMPLICATIONS; Z79.4 - HALF-WAY (CURRENT) USE OF INSULIN (7) Shortness of breath Code(s): R06.02 - SHORTNESS OF BREATH (8) Weakness Code(s): R53.1 - WEAKNESS (9) History of DVT (deep vein thrombosis) Code(s): Z86.718 - PERSONAL HISTORY OF OTHER VENOUS THROMBOSIS AND EMBOLISM (10) Peripheral arterial disease Code(s): I73.9 - PERIPHERAL VASCULAR DISEASE, UNSPECIFIED IMP DYSPNEA ACUTE NSTEMI ASHD ACUTE ON CHRONIC RENAL FAILURE COPD NOT IN ACUTE EXACERBATION AFIB H/O DVT IDDM PVD PLAN CARDIAC W/U IN PROGRESS O2 INHALED BRONCHODILATORS PRN MONITOR LYTES,RENAL FUNCTION AC DR BATISTA
--- NOTE | 2017-05-26 13:43 | PN ---
Progress Note (short form) - Note Progress Note: Renal follow up for CKD Pt seen and examined at the bedside s/p stress test this am continues to feel fatigued denies any sob, chest pain, N/V/D Vital Signs Temperature 98.8 F 05/26/17 05:15 Pulse Rate 60 05/26/17 05:15 Respiratory Rate 20 05/26/17 05:15 Blood Pressure 140/46 05/26/17 05:15 O2 Sat by Pulse Oximetry (%) 99 05/25/17 21:00 Intake & Output 05/23/17 05/24/17 05/25/17 05/26/17 23:59 23:59 23:59 23:59 Intake Total 120 990 990 120 Balance 120 990 990 120 Weight 92.533 kg 91.444 kg 93.44 kg 94.574 kg NAD awake and alert RRR, no M/R CTA, no rales or wheeze soft, NT/ND Trace LE edema, no clubbing or cyanosis No neurologic defects CBC, BMP 05/26/17 06:57 05/26/17 06:57 Current Medications Albuterol/Ipratropium (Duoneb -) 1 amp NEB Q6H PRN PRN Reason: SHORTNESS OF BREATH Aspirin (Asa -) 81 mg PO DAILY [facility] Last Admin: 05/26/17 13:26 Dose: 81 mg Atorvastatin Calcium (Lipitor -) 80 mg PO HS [facility] Last Admin: 05/25/17 21:43 Dose: 80 mg Diltiazem HCl (Cardizem Cd -) 180 mg PO BID [facility] Last Admin: 05/26/17 13:26 Dose: 180 mg Ferrous Sulfate (Feosol -) 325 mg PO DAILY [facility] Last Admin: 05/26/17 13:26 Dose: 325 mg Hydralazine HCl (Apresoline -) 100 mg PO TID [facility] Last Admin: 05/26/17 13:26 Dose: 100 mg Insulin Aspart (Novolog Vial Sliding Scale -) 1 vial SQ ACHS [facility] PRN Reason: Protocol Last Admin: 05/26/17 13:30 Dose: Not Given Insulin Detemir (Levemir Vial) 25 units SQ HS [facility] Last Admin: 05/25/17 21:43 Dose: 25 units Sodium Bicarbonate (Sodium Bicarbonate -) 650 mg PO DAILY [facility] Last Admin: 05/26/17 13:26 Dose: 650 mg Warfarin Sodium (Coumadin -) 7.5 mg PO DAILY@1800 [facility] Last Admin: 05/25/17 17:34 Dose: 7.5 mg 76 year old woman with PMhx of CKD stage 4 with proteinuria, COPD, AFib, Hypertension, DM who presented with N/V and Fatigue and found to have NSTEMI. #NSTEMI #CKD stage 4 likely due to diabetic nephropathy #Hypertension #IDDM #Afib #COPD Renal function stable s/p stress test this am, awaiting results continue to montior renal function continue sodium bicarb no GLENDA/ARB given low eGFR Thank you Will follow Tylor To DO
[2017-05-26 14:07] LABS: INR 2.07 (0.82-1.09); PROTHROMBIN TIME (PATIENT) 23.4 SEC (9.98-11.88)
--- NOTE | 2017-05-26 15:49 | PN ---
Physical Exam: SUBJECTIVE: Patient seen and examined at the bedside. OBJECTIVE: Had stress test today Echo noted Vital Signs Period Temp Pulse Resp BP Sys/Renee Pulse Ox Last 24 Hr 97.6 F-99.4 F 60-75 20-20 140-185/46-82 98-99 GENERAL: Awake, alert, and fully oriented, in no acute distress. HEAD: Normal with no signs of trauma. EYES: Pupils equal, round and reactive to light, extraocular movements intact, sclera anicteric, conjunctiva clear. No lid lag. EARS, NOSE, THROAT: Ears normal, nares patent, oropharynx clear without exudates. Moist mucous membranes. NECK: Normal range of motion, supple without lymphadenopathy, JVD, or masses. LUNGS: mild expiratory wheezing on upper lobes, diminished lower lobes, tolerating room air HEART: Regular rate and rhythm, normal S1 and S2 without murmur, rub or gallop. ABDOMEN: Soft, nontender, not distended, normoactive bowel sounds, no guarding, no rebound, no masses. No hepatomegaly or splenomegaly. MUSCULOSKELETAL: Normal range of motion at all joints. No bony deformities or tenderness. No CVA tenderness. UPPER EXTREMITIES: 2+ pulses, warm, well-perfused. No cyanosis. No clubbing. No peripheral edema. LOWER EXTREMITIES: 2+ pulses, warm, well-perfused. No calf tenderness. No peripheral edema. NEUROLOGICAL: Cranial nerves II-XII intact. Normal speech. Normal gait. PSYCHIATRIC: Cooperative. Good eye contact. Appropriate mood and affect. SKIN: Warm, dry, normal turgor, no rashes or lesions noted, normal capillary refill. Laboratory Results - last 24 hr 05/25/17 05/25/17 05/25/17 17:32 20:00 21:25 WBC RBC Hgb Hct MCV MCH MCHC RDW Plt Count MPV Neutrophils % Lymphocytes % Monocytes % Eosinophils % Basophils % PT with INR INR Sodium Potassium Chloride Carbon Dioxide Anion Gap BUN Creatinine Creat Clearance w eGFR POC Glucometer 129 203 Random Glucose Calcium Magnesium Total Bilirubin AST ALT Alkaline Phosphatase Troponin I 1.04 H* Total Protein Albumin 05/26/17 05/26/17 05/26/17 05:37 06:57 06:57 WBC 5.0 RBC 3.24 L Hgb 10.4 L Hct 30.9 L MCV 95.2 MCH 32.1 MCHC 33.7 RDW 15.8 H Plt Count 176 MPV 9.3 Neutrophils % 55.7 Lymphocytes % 32.0 D Monocytes % 10.5 H Eosinophils % 0.9 Basophils % 0.9 PT with INR INR Sodium 139 Potassium 4.6 Chloride 107 Carbon Dioxide 23 Anion Gap 9 BUN 42 H Creatinine 3.0 H Creat Clearance w eGFR 15.09 POC Glucometer 138 Random Glucose 126 H Calcium 7.9 L Magnesium 2.2 Total Bilirubin 0.4 AST 10 L ALT 13 Alkaline Phosphatase 42 L Troponin I Total Protein 5.3 L Albumin 2.7 L 05/26/17 05/26/17 13:20 13:29 WBC RBC Hgb Hct MCV MCH MCHC RDW Plt Count MPV Neutrophils % Lymphocytes % Monocytes % Eosinophils % Basophils % PT with INR 23.40 H INR 2.07 H Sodium Potassium Chloride Carbon Dioxide Anion Gap BUN Creatinine Creat Clearance w eGFR POC Glucometer 99 Random Glucose Calcium Magnesium Total Bilirubin AST ALT Alkaline Phosphatase Troponin I Total Protein Albumin Active Medications Generic Name Dose Route Start Last Admin Trade Name Freq PRN Reason Stop Dose Admin Albuterol/Ipratropium 1 amp 05/24/17 18:41 Duoneb - NEB Q6H PRN SHORTNESS OF BREATH Aspirin 81 mg 05/24/17 10:00 05/26/17 13:26 Asa - PO 81 mg DAILY [facility] Administration Atorvastatin Calcium 80 mg 05/24/17 22:00 05/25/17 21:43 Lipitor - PO 80 mg HS [facility] Administration Diltiazem HCl 180 mg 05/23/17 22:00 05/26/17 13:26 Cardizem Cd - PO 180 mg BID [facility] Administration Ferrous Sulfate 325 mg 05/24/17 10:00 05/26/17 13:26 Feosol - PO 325 mg DAILY [facility] Administration Hydralazine HCl 100 mg 05/23/17 22:00 05/26/17 13:26 Apresoline - PO 100 mg TID [facility] Administration Insulin Aspart 1 vial 05/23/17 22:00 05/26/17 13:30 Novolog Vial Sliding Scale - SQ Not Given ACHS [facility] Protocol Insulin Detemir 25 units 05/25/17 15:54 05/25/17 21:43 Levemir Vial SQ 25 units HS [facility] Administration Sodium Bicarbonate 650 mg 05/24/17 10:00 05/26/17 13:26 Sodium Bicarbonate - PO 650 mg DAILY [facility] Administration Warfarin Sodium 7.5 mg 05/25/17 18:00 05/25/17 17:34 Coumadin - PO 7.5 mg DAILY@1800 [facility] Administration ASSESSMENT/PLAN: Patient is a 76 year old female with a significant past medical history of diabetes, hypertension, atrial fibrillation, ablation (On Coumadin), asthma, current everyday smoker (3 cigarettes per day), DM, COPD (on inhalers daily), anemia, depression, hx of DVT. She presents to the ED c/o of generalized fatigue. Patient denies chest pain, endorses shortness of breath with ambulation and profound fatigue. The patient denies chest pain, headache or dizziness. Denies fever, chills, diarrhea and constipation. Denies dysuria, frequency, urgency and hematuria. Cardiology NSTEMI Trops peaked to at 4.1 No chest pain but profoundly fatigued Echo with EF 65%, mild mitral annular adilene., trace mitral regurg, mild tricuspid regurg, no pericardial effusion Stress test pending, may need cardiac cath as per cardiology On panel monitor remains in NSR 2-4 liter prn of nasal cannula for shortness of breath On 81mg daily, no beta blockers due to adverse effects of increased fatigue and dyspnea On Lipitor 80mg Cardiology following A fib, ablation DVT history Coumadin 7.5mg daily based on INR goal inr (2-3) Hypertension, chronic On Hydralazine 100mg TID On Cardizem 180mg BID Hyperlipidemia Started on Lipitor 80mg @ hs Pulmonary Asthma/COPD Not in acute exacerbation Followed by Dr. Ramires outpatient Monitor respiratory status Endocrine Diabetes, On BGMs Novolog Renal CKD, Followed by renal outpatient also following here F.E.N. Fluids: PO adequate Electrolytes: monitor Nutrition: diabetic diet Prophy: DVT: on Coumadin GI: Protonix Disposition: full code Visit type - Emergency Visit Emergency Visit: Yes ED Registration Date: 05/23/17 Care time: The patient presented to the Emergency Department on the above date and was hospitalized for further evaluation of their emergent condition. - New Patient This patient is new to me today: No - Critical Care Critical Care patient: No - Discharge Referral Referred to [facility] Med [facility] No
--- NOTE | 2017-05-26 17:54 | PN ---
Progress Note (short form) - Note Progress Note: Lexiscan MIBI with no infarct or ischemia; no ECG changes or sx with infusion. We can continue medical Rx CAD/NSTEMI, no further cardiac work up is indicated: cath is not necessary at this time as MPI shows no high risk findings. Reviewed with patient. D/C Planning for Later tomorrow or Thursday AM Problem List - Problems (1) NSTEMI (non-ST elevated myocardial infarction) Code(s): I21.4 - NON-ST ELEVATION (NSTEMI) MYOCARDIAL INFARCTION (2) Type 2 diabetes mellitus Code(s): E11.9 - TYPE 2 DIABETES MELLITUS WITHOUT COMPLICATIONS Qualifiers: Diabetes mellitus complication status: with circulatory complication (3) CKD stage 4 due to type 2 diabetes mellitus Code(s): E11.22 - TYPE 2 DIABETES MELLITUS W DIABETIC CHRONIC KIDNEY DISEASE; N18.4 - CHRONIC KIDNEY DISEASE, STAGE 4 (SEVERE) (4) Hypertension Code(s): I10 - ESSENTIAL (PRIMARY) HYPERTENSION Qualifiers: Hypertension type: essential hypertension Qualified Code(s): I10 - Essential (primary) hypertension (5) Diastolic CHF Code(s): I50.30 - UNSPECIFIED DIASTOLIC (CONGESTIVE) HEART FAILURE Qualifiers: Heart failure chronicity: chronic Qualified Code(s): I50.32 - Chronic diastolic (congestive) heart failure (6) COPD (chronic obstructive pulmonary disease) Code(s): J44.9 - CHRONIC OBSTRUCTIVE PULMONARY DISEASE, UNSPECIFIED Qualifiers: COPD type: chronic bronchitis (7) Depression Code(s): F32.9 - MAJOR DEPRESSIVE DISORDER, SINGLE EPISODE, UNSPECIFIED Qualifiers: Depression Type: unspecified Qualified Code(s): F32.9 - Major depressive disorder, single episode, unspecified (8) Hyperlipidemia Code(s): E78.5 - HYPERLIPIDEMIA, UNSPECIFIED Qualifiers: Hyperlipidemia type: pure hypercholesterolemia Qualified Code(s): E78.00 - Pure hypercholesterolemia, unspecified; E78.0 - Pure hypercholesterolemia (9) Peripheral arterial disease Code(s): I73.9 - PERIPHERAL VASCULAR DISEASE, UNSPECIFIED
[2017-05-26] MEDS: WARFARIN NA 7.5 MG TABLET (FP) PO SCH (17:58)
[2017-05-26] MEDS: ATORVASTATIN CA 80 MG TABLET (FP) PO SCH (21:17)
[2017-05-26] MEDS: INSULIN DETEMIR 100 UNITS/ML MDV SQ SCH ×2 (21:27→21:33)
[2017-05-26] MEDS ORDERED: INSULIN DETEMIR 100 UNITS/ML MDV SQ ONE (21:33)
[2017-05-27] MEDS: INSULIN SLIDING SCALE (NOVOLOG) 1 VIAL SQ SCH ×2 (06:48→12:00)
[2017-05-27] MEDS: hydrALAZINE HCL 50 MG TABLET (FP) PO SCH ×2 (06:48→13:38)
--- NOTE | 2017-05-27 09:11 | PN ---
Progress Note, Physician Chief Complaint: comfortable - Current Medication List Current Medications: Active Medications Albuterol/Ipratropium (Duoneb -) 1 amp NEB Q6H PRN PRN Reason: SHORTNESS OF BREATH Aspirin (Asa -) 81 mg PO DAILY [facility] Last Admin: 05/26/17 13:26 Dose: 81 mg Atorvastatin Calcium (Lipitor -) 80 mg PO HS [facility] Last Admin: 05/26/17 21:17 Dose: 80 mg Diltiazem HCl (Cardizem Cd -) 180 mg PO BID [facility] Last Admin: 05/26/17 21:18 Dose: 180 mg Ferrous Sulfate (Feosol -) 325 mg PO DAILY [facility] Last Admin: 05/26/17 13:26 Dose: 325 mg Hydralazine HCl (Apresoline -) 100 mg PO TID [facility] Last Admin: 05/27/17 06:48 Dose: 100 mg Insulin Aspart (Novolog Vial Sliding Scale -) 1 vial SQ [facility] PRN Reason: Protocol Last Admin: 05/27/17 06:48 Dose: 2 units Insulin Detemir (Levemir Vial) 25 units SQ [facility] Last Admin: 05/26/17 21:33 Dose: 15 units Sodium Bicarbonate (Sodium Bicarbonate -) 650 mg PO DAILY [facility] Last Admin: 05/26/17 13:26 Dose: 650 mg Warfarin Sodium (Coumadin -) 7.5 mg PO DAILY@1800 [facility] Last Admin: 05/26/17 17:58 Dose: 7.5 mg - Objective Vital Signs: Vital Signs Temperature 97.8 F 05/27/17 06:00 Pulse Rate 62 05/27/17 06:00 Respiratory Rate 20 05/27/17 06:00 Blood Pressure 165/62 05/27/17 06:00 O2 Sat by Pulse Oximetry (%) 99 05/26/17 21:00 Constitutional: Yes: No Distress, Calm Eyes: Yes: Conjunctiva Clear Cardiovascular: Yes: Regular Rate and Rhythm Respiratory: Yes: CTA Bilaterally Gastrointestinal: Yes: Soft Edema: No Neurological: Yes: Alert Labs: CBC, BMP 05/26/17 06:57 05/26/17 06:57 INR, PTT INR 2.07 (0.82-1.09) H 05/26/17 13:20 - ....Imaging EKG: Image Reviewed (NSR) Problem List - Problems (1) NSTEMI (non-ST elevated myocardial infarction) Code(s): I21.4 - NON-ST ELEVATION (NSTEMI) MYOCARDIAL INFARCTION (2) Type 2 diabetes mellitus Code(s): E11.9 - TYPE 2 DIABETES MELLITUS WITHOUT COMPLICATIONS Qualifiers: Diabetes mellitus complication status: with circulatory complication (3) CKD stage 4 due to type 2 diabetes mellitus Code(s): E11.22 - TYPE 2 DIABETES MELLITUS W DIABETIC CHRONIC KIDNEY DISEASE; N18.4 - CHRONIC KIDNEY DISEASE, STAGE 4 (SEVERE) (4) Hypertension Code(s): I10 - ESSENTIAL (PRIMARY) HYPERTENSION Qualifiers: Hypertension type: essential hypertension Qualified Code(s): I10 - Essential (primary) hypertension (5) Diastolic CHF Code(s): I50.30 - UNSPECIFIED DIASTOLIC (CONGESTIVE) HEART FAILURE Qualifiers: Heart failure chronicity: chronic Qualified Code(s): I50.32 - Chronic diastolic (congestive) heart failure (6) COPD (chronic obstructive pulmonary disease) Code(s): J44.9 - CHRONIC OBSTRUCTIVE PULMONARY DISEASE, UNSPECIFIED Qualifiers: COPD type: chronic bronchitis (7) Depression Code(s): F32.9 - MAJOR DEPRESSIVE DISORDER, SINGLE EPISODE, UNSPECIFIED Qualifiers: Depression Type: unspecified Qualified Code(s): F32.9 - Major depressive disorder, single episode, unspecified (8) Hyperlipidemia Code(s): E78.5 - HYPERLIPIDEMIA, UNSPECIFIED Qualifiers: Hyperlipidemia type: pure hypercholesterolemia Qualified Code(s): E78.00 - Pure hypercholesterolemia, unspecified; E78.0 - Pure hypercholesterolemia (9) Peripheral arterial disease Code(s): I73.9 - PERIPHERAL VASCULAR DISEASE, UNSPECIFIED Assessment/Plan MP: NSTEMI, TnI trending down now > 48 hrs since event with no recurrent sx CKD DM HTN PAF on AC H/o DVT (with current LE duplex negative) COPD REC: 1. Telemetry with no V arrhythmias since admission, normal sinus 2. Echo showed normal LV function with no wall motion abnormalities 3. ASA 81mg daily; patient has had adverse reactions to beta blockers (fatigue and worsened dyspnea). Hold for now. Cont. Lipitor 80mg daily 4. BP optimization. 5. INR goal 2-3 for PAF. 6. Long discussion with patient today about the option of cardiac cath. Benefits of definitive dx and possible revasc discussed in detail. Small risks of cath including possibility of worsening renal failure and need for HD discussed. She wishes to avoid the chance of that as much as possible. Nuclear stress yesterday with no ischemia, no sx or ECG changes: no further cardiac work up is planned. Continue current Rx D/C planning. Consider SNF
[2017-05-27] MEDS: SODIUM BICARBONATE 650 MG TABLET PO SCH (09:45)
[2017-05-27] MEDS: FERROUS SO4 325 MG TABLET (FP) PO SCH (09:45)
[2017-05-27] MEDS: ASPIRIN 81 MG CHEWABLE TABLETS PO SCH (09:46)
[2017-05-27 10:26] VITALS: BP 151/63; PULSE 67; TEMP 97.4
[2017-05-27 10:27] LABS: BASO % 1.1 % (0-2.0); EOS % 0.9 % (0-4.5); HEMATOCRIT 32.1 % (32.4-45.2); HEMOGLOBIN 10.7 GM/dL (10.7-15.3); LYMPH % 26.3 % (8-40); MCH 31.7 pg (25.7-33.7); MCHC 33.4 g/dl (32.0-36.0); MEAN CELL VOLUME 94.9 fl (80-96); MEAN PLT VOLUME 9.1 fl (7.5-11.1); MONO % 11.7 % (3.8-10.2); PLATELET COUNT 181 K/MM3 (134-434); RBC 3.38 M/mm3 (3.60-5.2); RDW 15.8 % (11.6-15.6); WHITE BLOOD COUNT 5.4 K/mm3 (4.0-10.0)
[2017-05-27 11:18] LABS: INR 2.06 (0.82-1.09); PROTHROMBIN TIME (PATIENT) 23.3 SEC (9.98-11.88)
[2017-05-27 11:27] LABS: ALBUMIN 2.7 g/dl (3.4-5.0); ALK PHOS 50 U/L (45-117); ANION GAP 8 (8-16); BILIRUBIN,TOTAL 0.3 mg/dL (0.2-1.0); BLOOD UREA NITROGEN 40 mg/dL (7-18); CALCIUM 7.9 mg/dL (8.5-10.1); CHLORIDE 108 mmol/L (98-107); CO2 23 mmol/L (21-32); CREATININE 2.8 mg/dL (0.55-1.02); GLUCOSE,RANDOM 131 mg/dL (74-106); MAGNESIUM 1.8 mg/dL (1.8-2.4); PHOSPHOROUS 3.3 mg/dL (2.5-4.9); POTASSIUM 4.1 mmol/L (3.5-5.1); SGOT/AST 10 U/L (15-37); SGPT/ALT 10 U/L (12-78); SODIUM 139 mmol/L (136-145); TOT PROT 5.6 g/dl (6.4-8.2)
--- NOTE | 2017-05-27 11:47 | DS ---
Physical Exam: SUBJECTIVE: Patient seen and examined OBJECTIVE: Vital Signs Period Temp Pulse Resp BP Sys/Renee Pulse Ox Last 24 Hr 97.4 F-99.2 F 60-74 20-22 145-185/49-68 96-99 PHYSICAL EXAM GENERAL: The patient is awake, alert, and fully oriented, in no acute distress. HEAD: Normal with no signs of trauma. EYES: PERRL, extraocular movements intact, sclera anicteric, conjunctiva clear. ENT: Ears normal, nares patent, oropharynx clear without exudates, moist mucous membranes. NECK: Trachea midline, full range of motion, supple. LUNGS: Breath sounds equal, clear to auscultation bilaterally, no wheezes, no crackles, no accessory muscle use. HEART: Regular rate and rhythm, S1, S2 without murmur, rub or gallop. ABDOMEN: Soft, nontender, nondistended, normoactive bowel sounds, no guarding, no rebound, no hepatosplenomegaly, no masses. EXTREMITIES: 2+ pulses, warm, well-perfused, no edema. NEUROLOGICAL: Cranial nerves II through XII grossly intact. Normal speech, gait not observed. PSYCH: Normal mood, normal affect. SKIN: Warm, dry, normal turgor, no rashes or lesions noted. LABS Laboratory Results - last 24 hr 05/26/17 05/26/17 05/26/17 13:20 13:29 17:53 WBC RBC Hgb Hct MCV MCH MCHC RDW Plt Count MPV Neutrophils % Lymphocytes % Monocytes % Eosinophils % Basophils % PT with INR 23.40 H INR 2.07 H Sodium Potassium Chloride Carbon Dioxide Anion Gap BUN Creatinine Creat Clearance w eGFR POC Glucometer 99 169 Random Glucose Calcium Phosphorus Magnesium Total Bilirubin AST ALT Alkaline Phosphatase Total Protein Albumin 05/26/17 05/27/17 05/27/17 21:26 05:55 09:40 WBC RBC Hgb Hct MCV MCH MCHC RDW Plt Count MPV Neutrophils % Lymphocytes % Monocytes % Eosinophils % Basophils % PT with INR INR Sodium 139 Potassium 4.1 Chloride 108 H Carbon Dioxide 23 Anion Gap 8 BUN 40 H Creatinine 2.8 H Creat Clearance w eGFR 16.34 POC Glucometer 130 169 Random Glucose 131 H Calcium 7.9 L Phosphorus 3.3 Magnesium 1.8 Total Bilirubin 0.3 D AST 10 L ALT 10 L Alkaline Phosphatase 50 Total Protein 5.6 L Albumin 2.7 L 05/27/17 05/27/17 09:40 09:40 WBC 5.4 RBC 3.38 L Hgb 10.7 Hct 32.1 L MCV 94.9 MCH 31.7 MCHC 33.4 RDW 15.8 H Plt Count 181 MPV 9.1 Neutrophils % 60.0 Lymphocytes % 26.3 Monocytes % 11.7 H Eosinophils % 0.9 Basophils % 1.1 PT with INR 23.30 H INR 2.06 H Sodium Potassium Chloride Carbon Dioxide Anion Gap BUN Creatinine Creat Clearance w eGFR POC Glucometer Random Glucose Calcium Phosphorus Magnesium Total Bilirubin AST ALT Alkaline Phosphatase Total Protein Albumin HOSPITAL COURSE: Date of Admission:05/23/17 Date of Discharge: 05/27/17 Discharge Summary Reason For Visit: NSTEMI,HYPERTENSION, STAGE 4 CKD Current Active Problems COPD (chronic obstructive pulmonary disease) (Acute) NSTEMI (non-ST elevated myocardial infarction) (Acute) CKD stage 4 due to type 2 diabetes mellitus (Chronic) Hypertension (Chronic) Condition: Stable - Instructions Diet, Activity, Other Instructions: Please return to the ED for any new, persistent, or worsening symptoms. Follow up with your doctor in 1 week Take regular and new home medications as directed Follow up with Dr. Leyva in 2 weeks Referrals: Scott Leyva MD [Staff Physician] - Disposition: HOME - Home Medications Comprehensive Discharge Medication List: Ambulatory Orders Dexlansoprazole [Dexilant] 30 mg PO DAILY #30 ciarra. 08/02/15 Insulin Sliding Scale [Novolog Vial Sliding Scale -] 1 vial SQ ACHS units 08/01 Insulin (Levemir) [Levemir Flexpen -] 20 units SQ HS #1 vial 06/12/16 Sodium Bicarbonate - 650 mg PO DAILY #14 tablet 06/12/16 Cholecalciferol (Vitamin D3) [Vitamin D3] 1,000 unit PO WEEKLY 01/28/17 Diltiazem Cd [Cardizem Cd -] 180 mg PO BID 01/28/17 Golden/Polymyx B Sulf/Dexameth [Maxitrol Eye Drops -] 1 drop OS Q4H 01/28/17 hydrALAZINE HCL [Apresoline -] 100 mg PO TID 01/28/17 Ferrous Sulfate 325 mg PO DAILY 02/02/17 Atorvastatin Ca [Lipitor] 80 mg PO HS #30 tablet 05/27/17 Warfarin Na [Coumadin] 7.5 mg PO DAILY@1800 #30 tablet 05/27/17 - Discharge Referral Referred to [facility] No
== END 2017-05-27 16:09 | disposition home or self-care (01) | DRG 281 ==
LOC: JER 12:51 → JERBED 15:07 → J4W 17:08
PROVIDERS: ADMIT Internal Medicine; ATTEND Nurse Practitioner Acute Care
DX: I21.4 Non-ST elevation (NSTEMI) myocardial infarction (principal); N18.4 Chronic kidney disease, stage 4 (severe); I13.0 Hypertensive heart and chronic kidney disease with heart failure and stage 1 through stage 4 chronic kidney disease, or unspecified chronic kidney disease; I50.32 Chronic diastolic (congestive) heart failure; J44.9 Chronic obstructive pulmonary disease, unspecified; E11.22 Type 2 diabetes mellitus with diabetic chronic kidney disease; E78.5 Hyperlipidemia, unspecified; I73.9 Peripheral vascular disease, unspecified; F32.9 Major depressive disorder, single episode, unspecified; I48.0 Paroxysmal atrial fibrillation; J45.909 Unspecified asthma, uncomplicated; I25.10 Atherosclerotic heart disease of native coronary artery without angina pectoris
CPT/HCPCS: 36415; 71045-TC-FY; 78452-TC; 80048; 80053; 80061; 81003; 81015; 82550; 82553; 82803; 82962; 83036; 83721; 83735; 83880; 84100; 84484; 85025; 85610; 93005; 93010; 93017; 93306-TC; 93970-TC; 99282-25; A9502; J2785; J7030

== ENCOUNTER 2017-06-26 17:55 | Emergency (ER) | payer OTHER ==
[2017-06-26 18:17] VITALS: BMI 28.3
[2017-06-26 18:22] VITALS: TEMP 98.1
--- NOTE | 2017-06-26 18:23 | PDOC ---
History of Present Illness - General History Source: Patient Exam Limitations: No Limitations - History of Present Illness Initial Comments: 06/26/17 18:55 The patient is a 76 year old female with a significant PMH of recent NSTEMI, anemia, asthma, AF ablation, IDDM, HTN, and HLD who presents to the emergency department for evaluation of elevated blood pressure earlier today. The patient states the visiting nurse took her blood pressure earlier and told her it was elevated. The patient reports she takes hydralazine 3 times a day took one this morning but did not take another in the afternoon. The patient called Dr. Leyva (conference planner) who told her to come to the ER for further management. The patient is asymptomatic here in the ER. The patient denies visual changes, diaphoresis, palpitations, numbness/tingling/ weakness, chest pain, shortness of breath, headache and dizziness. Denies fever, chills, nausea, vomit, diarrhea and constipation. Denies dysuria, frequency, urgency and hematuria. Allergies: NKA Past surgical history: Tubal ligation, ablation. Social history: Current smoke day smoker. No reported alcohol or drug use. PCP: Dr. Garsia <Mar Peres - Last Filed: 06/26/17 18:55> <Carito Mckeon - Last Filed: 06/26/17 23:42> - General Chief Complaint: Blood Pressure Problem Stated Complaint: Shortness of Breath Time Seen by Provider: 06/26/17 18:21 Past History <Mar Peres - Last Filed: 06/26/17 18:55> - Past Medical History Anemia: Yes Asthma: Yes Cancer: No Cardiac Disorders: Yes (AF ablation) CVA: No COPD: No CHF: No DVT: No Dementia: No Diabetes: Yes (IDDM) Dialysis: No (ckd) GI Disorders: No Disorders: Yes (frequency) HTN: Yes Hypercholesterolemia: Yes Liver Disease: No Psychiatric Problems: Yes (DEPRESSION) Seizures: No Thyroid Disease: No - Surgical History Abdominal Surgery: Yes (TUBAL LIG.) Appendectomy: No Cardiac Surgery: Yes (ablation) Cholecystectomy: No Lung Surgery: No Neurologic Surgery: No Orthopedic Surgery: Yes (hammer toes,trigger finger) - Family Disease History Family Disease History: Diabetes: Grandparents, [place]: Mother (htn) - Immunization History Immunization Up to Date: Yes - Suicide/Smoking/Psychosocial Hx Smoking Status: Yes Smoking History: Current some day smoker Have you smoked in the past 12 months: Yes Number of Cigarettes Smoked Daily: 1 If you are a former smoker, when did you quit?: 2 MO AGO Information on smoking cessation initiated: No 'Breaking Loose' booklet given: 06/22/15 Hx Alcohol Use: No Drug/Substance Use Hx: No Substance Use Type: None Hx Substance Use Treatment: No <Carito Mckeon - Last Filed: 06/26/17 23:42> - Past Medical History Allergies/Adverse Reactions: Allergies Allergy/AdvReac Type Severity Reaction Status Date / Time No Known Allergies Allergy Verified 06/26/17 18:15 Home Medications: Ambulatory Orders Dexlansoprazole [Dexilant] 30 mg PO DAILY #30 08/02/15 Insulin Sliding Scale [Novolog Vial Sliding Scale -] 1 vial SQ ACHS units 08/01 Insulin (Levemir) [Levemir Flexpen -] 20 units SQ HS #1 vial 06/12/16 Sodium Bicarbonate - 650 mg PO DAILY #14 tablet 06/12/16 Cholecalciferol (Vitamin D3) [Vitamin D3] 1,000 unit PO WEEKLY 01/28/17 Diltiazem Cd [Cardizem Cd -] 180 mg PO BID 01/28/17 Golden/Polymyx B Sulf/Dexameth [Maxitrol Eye Drops -] 1 drop OS Q4H 01/28/17 hydrALAZINE HCL [Apresoline -] 100 mg PO TID 01/28/17 Ferrous Sulfate 325 mg PO DAILY 02/02/17 Atorvastatin Ca [Lipitor] 80 mg PO HS #30 tablet 05/27/17 Warfarin Na [Coumadin] 7.5 mg PO DAILY@1800 #30 tablet 05/27/17 Review of Systems - Review of Systems Able to Perform ROS?: Yes Comments:: 06/26/17 18:59 GENERAL/CONSTITUTIONAL: No fever or chills. No weakness. HEAD, EYES, EARS, NOSE AND THROAT: No change in vision. No ear pain or discharge. No sore throat. CARDIOVASCULAR: No chest pain or shortness of breath. RESPIRATORY: No cough, wheezing, or hemoptysis. GASTROINTESTINAL: No nausea, vomiting, diarrhea or constipation. GENITOURINARY: No dysuria, frequency, or change in urination. MUSCULOSKELETAL: No joint or muscle swelling or pain. No neck or back pain. SKIN: No rash NEUROLOGIC: No headache, vertigo, loss of consciousness, or change in strength/ sensation. ENDOCRINE: No increased thirst. No abnormal weight change. HEMATOLOGIC/LYMPHATIC: No anemia, easy bleeding, or history of blood clots. ALLERGIC/IMMUNOLOGIC: No hives or skin allergy. <Mar Peres - Last Filed: 06/26/17 18:55> *Physical Exam - Vital Signs Last Vital Signs Temp Pulse Resp BP Pulse Ox 98.1 F 84 18 221/83 100 06/26/17 18:19 06/26/17 18:15 06/26/17 18:15 06/26/17 18:15 06/26/17 18:15 - Physical Exam Comments: 06/26/17 18:59 GENERAL: Awake, alert, and fully oriented, in no acute distress HEAD: No signs of trauma EYES: PERRLA, EOMI, sclera anicteric, conjunctiva clear ENT: Auricles normal inspection, hearing grossly normal, nares patent, oropharynx clear without exudates. Moist mucosa NECK: Normal ROM, supple, no lymphadenopathy, JVD, or masses LUNGS: Breath sounds equal, clear to auscultation bilaterally. No wheezes, and no crackles HEART: Regular rate and rhythm, normal S1 and S2, no murmurs, rubs or gallops ABDOMEN: Soft, nontender, normoactive bowel sounds. No guarding, no rebound. No masses EXTREMITIES: Normal range of motion, no edema. No clubbing or cyanosis. No cords, erythema, or tenderness NEUROLOGICAL: Cranial nerves II through XII grossly intact. Normal speech. SKIN: Warm, Dry, normal turgor, no rashes or lesions noted. <Mar Peres - Last Filed: 06/26/17 18:55> - Vital Signs Last Vital Signs Temp Pulse Resp BP Pulse Ox 98.1 F 84 18 221/83 100 06/26/17 18:19 06/26/17 18:15 06/26/17 18:15 06/26/17 18:15 06/26/17 18:15 <Carito Mckeon - Last Filed: 06/26/17 23:42> ED Treatment Course - LABORATORY CBC & Chemistry Diagram: 06/26/17 19:55 06/26/17 19:55 <Carito Mckeon - Last Filed: 06/26/17 23:42> Medical Decision Making - Medical Decision Making 06/26/17 23:31 Pt presents to the ED complaining of <Carito Mckeon - Last Filed: 06/26/17 23:42> *DC/Admit/Observation/Transfer - Attestations Scribe Attestion: 06/26/17 18:59 Documentation prepared by Mar Peres, acting as bio medical technician for Carito Mckeon MD. <Mar Peres - Last Filed: 06/26/17 18:55> - Discharge Dispostion Admit: No <Carito Mckeon - Last Filed: 06/26/17 23:42> Diagnosis at time of Disposition: Hypertension Qualifiers: Hypertension type: essential hypertension Qualified Code(s): I10 - Essential ( primary) hypertension - Discharge Dispostion Disposition: HOME Condition at time of disposition: Good - Referrals Referrals: Myesha Khan MD [Primary Care Provider] - - Patient Instructions Printed Discharge Instructions: DI for High Blood Pressure Additional Instructions: return to the ED for chest pain or shortness of breath, other new or worsening symptoms. Make sure that you follow up with Dr. Leyva in the morning. Make sure that you take all of your medications as scheduled. Make sure that you take your night time dose of hydralizine. - Post Discharge Activity
[2017-06-26] MEDS ORDERED: hydrALAZINE HCL 50 MG TABLET (FP) PO ONE (18:29)
[2017-06-26] MEDS ORDERED: hydrALAZINE HCL 25 MG TABLET (FP) ONE (19:29)
[2017-06-26 20:25] LABS: BASO % 1.2 % (0-2.0); EOS % 0.8 % (0-4.5); HEMATOCRIT 34.4 % (32.4-45.2); HEMOGLOBIN 11.9 GM/dL (10.7-15.3); LYMPH % 33.7 % (8-40); MCH 32.3 pg (25.7-33.7); MCHC 34.7 g/dl (32.0-36.0); MEAN CELL VOLUME 93.2 fl (80-96); MEAN PLT VOLUME 8.9 fl (7.5-11.1); MONO % 9.4 % (3.8-10.2); NEUT % 54.9 % (42.8-82.8); PLATELET COUNT 182 K/MM3 (134-434); RBC 3.69 M/mm3 (3.60-5.2); RDW 15.1 % (11.6-15.6); WHITE BLOOD COUNT 5.5 K/mm3 (4.0-10.0)
[2017-06-26 21:02] LABS: ALBUMIN 3.2 g/dl (3.4-5.0); ANION GAP 5 (8-16); BILIRUBIN,TOTAL 0.3 mg/dL (0.2-1.0); BLOOD UREA NITROGEN 24 mg/dL (7-18); CALCIUM 7.9 mg/dL (8.5-10.1); CHLORIDE 112 mmol/L (98-107); CO2 24 mmol/L (21-32); CREATININE 2.9 mg/dL (0.55-1.02); GLUCOSE,RANDOM 277 mg/dL (74-106); POTASSIUM 4.6 mmol/L (3.5-5.1); SGOT/AST 10 U/L (15-37); SGPT/ALT 11 U/L (12-78); SODIUM 141 mmol/L (136-145); TOT PROT 6.3 g/dl (6.4-8.2)
[2017-06-26 21:04] LABS: ALK PHOS 57 U/L (45-117)
[2017-06-26 22:04] VITALS: BP 187/60; PULSE 77
[2017-06-26] MEDS ORDERED: hydrALAZINE HCL 20 MG/ML VIAL IVPUSH ONE (22:20)
--- NOTE | 2017-06-27 11:31 | EKG ---
Test Reason : Blood Pressure : / mmHG Vent. Rate : 083 BPM Atrial Rate : 083 BPM P-R Int : 164 ms QRS Dur : 078 ms QT Int : 390 ms P-R-T Axes : 049 -36 061 degrees QTc Int : 458 ms NORMAL SINUS RHYTHM LEFT AXIS DEVIATION ABNORMAL ECG WHEN COMPARED WITH ECG OF 23-MAY-2017 13:44, NO SIGNIFICANT CHANGE WAS FOUND Confirmed by DAVID MUELLER MD ([id number]) on 06/27/2017 11:31:10 AM Referred By: Confirmed By:DAVID MUELLER MD
== END 2017-06-27 00:19 | disposition home or self-care (01) ==
LOC: JER 17:55
PROC: 3E033GC Introduction of Other Therapeutic Substance into Peripheral Vein, Percutaneous Approach (ICD-10-PCS; principal; 2017-06-26)
DX: I10 Essential (primary) hypertension (principal); F17.210 Nicotine dependence, cigarettes, uncomplicated; E11.9 Type 2 diabetes mellitus without complications; E78.00 Pure hypercholesterolemia, unspecified; F32.9 Major depressive disorder, single episode, unspecified
CPT/HCPCS: 36415; 80053; 82550; 84484; 85025; 93005; 93010; 96374; 99281-25

== ENCOUNTER 2017-09-26 22:35 | Emergency (ER) | payer OTHER ==
[2017-09-26 22:52] VITALS: BMI 30.5
--- NOTE | 2017-09-26 23:12 | PDOC ---
Attending Attestation - Resident Resident Name: Gabriele Jenkins - ED Attending Attestation I have performed the following: I have examined & evaluated the patient, The case was reviewed & discussed with the resident, I agree w/resident's findings & plan, Exceptions are as noted - HPI HPI: 09/26/17 23:42 The patient is a 76 year old female with past medical history of IDDM II, HTN, AFib, A. Flutter s/p ablation (2014) (On Coumadin), asthma, COPD (on inhalers daily), anemia, depression, NSTEMI, [place] (April 2017 w/o stents) and CKD stage 4 presents to the emergency department with Low blood sugar and elevated blood pressure. The patient reports a glucose level of 66 at 8:00 am, followed by the use of 2 glucose tablets. The patient states she was noncompliant with medications today. As per the daughter's present, Patient seemed more tired with increased fatigue today, states she would fall asleep mid-sentence, the patient denies being tired. The patient reports she lives with her sister, with weekdays aid assistance, no aid over the weekend. Family notes that she has been like this for a while, has been worked up by PMD, Pulm, Cardiology without a diagnosis. She also has seen a psyxchiatrist and currently works with a therapist for depression, but not currently on any medications. Denies a cough. fever/chills, Denies abdominal pain, back or neck pain. Denies Chest pain. Denies diarrhea, dysuria, hematuria or constipation. Denies nausea or vomiting. Allergies:NKDA Social history: Patient reports the use of 2-3 cigarettes every other day. Occasional alcohol use reported. Denies the use of recreational drugs. Surgical history: I&D for genito/gluteal abscess (2015); s/p ablation for aflutter (2013), Right heart catheterization (03/2015), Colonoscopy (polyps a few years ago), Hysterectomy (fibroids), Tubal Ligation, Upper Endoscopy (neg 1 + yrs ago) Hide Worker: Dr. Griffith PCP: Myesha Khan MD - Physicial Exam PE: 09/26/17 23:55 GENERAL: The patient is somnolent, but easily arousable, no acute distress HEAD: Normocephalic, atraumatic. EYES: extraocular movements intact, sclera anicteric, conjunctiva clear. ENT: Normal voice, Moist mucous membranes. NECK: Normal range of motion, supple LUNGS: Breath sounds equal, clear to auscultation bilaterally. No wheezes, no rhonchi, no rales. HEART: Regular rate and rhythm, normal S1 and S2 without murmur, rub or gallop. ABDOMEN: Soft, nontender No guarding, no rebound. No CVA tenderness EXTREMITIES: Normal range of motion,trace edema. NEUROLOGICAL: No facial assymetry, Normal speech, movinga ll 4 extremities spontaneously and symmetrically PSYCH: Normal mood, normal affect. SKIN: Warm, Dry, normal turgor, - Medical Decision Making 09/27/17 01:45 ddx for the pts sypmtoms include metabolic dernagement, hypoglycemia, hypothyroidism, occult uti/infection, depression awaiting lab work, ua, bgm pt had an episode of 'shaking' pirmarily of the RLL - I suspect it was a voluntary movement will continue to observe if pt has normal labs, and pt still sypmtmatic, consider CT (Although her neuro exam was nonfocal) and observation
[2017-09-27] MEDS ORDERED: hydrALAZINE HCL 20 MG/ML VIAL IVPUSH ONE (00:45)
[2017-09-27] MEDS ORDERED: hydrALAZINE HCL 20 MG/ML VIAL ONE (01:26)
--- NOTE | 2017-09-27 01:36 | PDOC ---
History of Present Illness - General Chief Complaint: Blood Sugar Problem Stated Complaint: INFECTION Time Seen by Provider: 09/26/17 22:51 History Source: Patient Exam Limitations: No Limitations - History of Present Illness Initial Comments: 09/27/17 01:41 Ms. Lorenzo is a 76 yo F with a hx of afib, HTN, [place] (April 2017), CAD, DM (on insulin), and CKD who presents to the emergency department with SOB and a hypoglycemic event that occurred earlier in the day. She had a blood glucose of 66 at approximately 8am which she subsequently ingested two glucose wafers. She states that her SOB is unchanged from her baseline SOB which she has experienced over the past 3 years. She has no health aide over the weekend and did not take her medications today. She denies the following: focal neurologic deficits, headaches, dizziness, chest pain, abdominal pain, dysuria, hematuria, diarrhea, and hematochezia. 09/27/17 03:39 Past History - Past Medical History Allergies/Adverse Reactions: Allergies Allergy/AdvReac Type Severity Reaction Status Date / Time No Known Allergies Allergy Verified 09/26/17 22:50 Home Medications: Ambulatory Orders Dexlansoprazole [Dexilant] 30 mg PO DAILY #30 08/02/15 Insulin Sliding Scale [Novolog Vial Sliding Scale -] 1 vial SQ ACHS units 08/01 Insulin (Levemir) [Levemir Flexpen -] 20 units SQ HS #1 vial 06/12/16 Sodium Bicarbonate - 650 mg PO DAILY #14 tablet 06/12/16 Cholecalciferol (Vitamin D3) [Vitamin D3] 1,000 unit PO WEEKLY 01/28/17 Diltiazem Cd [Cardizem Cd -] 180 mg PO BID 01/28/17 Golden/Polymyx B Sulf/Dexameth [Maxitrol Eye Drops -] 1 drop OS Q4H 01/28/17 hydrALAZINE HCL [Apresoline -] 100 mg PO TID 01/28/17 Ferrous Sulfate 325 mg PO DAILY 02/02/17 Warfarin Na [Coumadin] 7.5 mg PO DAILY@1800 #30 tablet 05/27/17 Anemia: Yes Asthma: Yes Cancer: No Cardiac Disorders: Yes (AF ablation) CVA: No COPD: No CHF: No DVT: No Dementia: No Diabetes: Yes (IDDM) Dialysis: No (ckd) GI Disorders: No Disorders: Yes (frequency) HTN: Yes Hypercholesterolemia: Yes Liver Disease: No Psychiatric Problems: Yes (DEPRESSION) Seizures: No Thyroid Disease: No - Surgical History Abdominal Surgery: Yes (TUBAL LIG.) Appendectomy: No Cardiac Surgery: Yes (ablation) Cholecystectomy: No Lung Surgery: No Neurologic Surgery: No Orthopedic Surgery: Yes (hammer toes,trigger finger) - Family Disease History Family Disease History: Diabetes: Grandparents, [place]: Mother (htn) - Immunization History Immunization Up to Date: Yes - Suicide/Smoking/Psychosocial Hx Smoking Status: Yes Smoking History: Never smoked Have you smoked in the past 12 months: No Number of Cigarettes Smoked Daily: 1 If you are a former smoker, when did you quit?: 2 MO AGO Information on smoking cessation initiated: No 'Breaking Loose' booklet given: 06/22/15 Hx Alcohol Use: No Drug/Substance Use Hx: No Substance Use Type: None Hx Substance Use Treatment: No *Physical Exam - Vital Signs Last Vital Signs Temp Pulse Resp BP Pulse Ox 98.3 F 68 28 H 184/83 98 09/26/17 22:50 09/26/17 22:50 09/26/17 22:50 09/26/17 22:50 09/26/17 22:50 ED Treatment Course - LABORATORY CBC & Chemistry Diagram: 09/27/17 02:30 09/27/17 02:30 - RADIOLOGY Radiology Studies Ordered: Category Date Time Status CHEST PA & LAT [RAD] Stat Radiology 09/26/17 23:22 Ordered - Medications Given in the ED: ED Medications Discontinued Medications Generic Name Dose Route Start Last Admin Trade Name Jacquelyn PRN Reason Stop Dose Admin Hydralazine HCl 10 mg 09/27/17 00:45 09/27/17 01:00 Apresoline Injection - IVPUSH 09/27/17 00:46 10 mg ONCE ONE Administration *DC/Admit/Observation/Transfer Diagnosis at time of Disposition: Shortness of breath - Discharge Dispostion Disposition: HOME Decision to Admit order: No - Referrals Referrals: [facility] [place] [place] [Provider Group] - Patient Instructions Printed Discharge Instructions: DI for Hyperglycemia -- Adult, DI for Shortness of Breath Additional Instructions: You have been diagnosed with shortness of breath. Please take your prescriptions that you have been prescribed as written. In addition, please follow up with your primary care provider within 1-2 days for follow up care. Your care is not complete until this is done. Please return to the emergency department if symptoms worsen or new concerning symptoms arise. Please take great care in monitoring the glucose and administering your regiment of medications. - Post Discharge Activity
[2017-09-27 02:45] LABS: BASO % 1.8 % (0-2.0); EOS % 0.9 % (0-4.5); HEMATOCRIT 34.8 % (32.4-45.2); HEMOGLOBIN 11.7 GM/dL (10.7-15.3); LYMPH % 29.7 % (8-40); MCH 31.5 pg (25.7-33.7); MCHC 33.6 g/dl (32.0-36.0); MEAN CELL VOLUME 93.6 fl (80-96); MEAN PLT VOLUME 9.3 fl (7.5-11.1); MONO % 7.4 % (3.8-10.2); NEUT % 60.2 % (42.8-82.8); PLATELET COUNT 215 K/MM3 (134-434); RBC 3.71 M/mm3 (3.60-5.2); WHITE BLOOD COUNT 6.1 K/mm3 (4.0-10.0)
[2017-09-27 02:49] LABS: URINE APPEARANCE CLEAR; URINE BILIRUBIN NEGATIVE (<2.0 mg/dL); URINE COLOR LTYELLOW; URINE GLUCOSE (UA) 3+ (NEGATIVE); URINE KETONE NEGATIVE (NEGATIVE); URINE LEUK ESTERASE NEGATIVE (NEGATIVE); URINE NITRITE NEGATIVE (NEGATIVE); URINE UROBILINOGEN NEGATIVE mg/dL (0.2-1.0)
[2017-09-27 02:53] LABS: URINE PROTEIN 2+ (NEGATIVE)
[2017-09-27 02:54] LABS: EPI CELLS RARE /HPF (FEW); URINE BACTERIA RARE /hpf (NONE SEEN); URINE MUCUS RARE
[2017-09-27 03:04] LABS: INR 1.7 (0.82-1.09)
[2017-09-27 03:08] LABS: PROTHROMBIN TIME (PATIENT) 19.2 SEC (9.7-13.0)
[2017-09-27 03:09] LABS: ANION GAP 13 (8-16); BLOOD UREA NITROGEN 31 mg/dL (7-18); CALCIUM 8.2 mg/dL (8.5-10.1); CHLORIDE 110 mmol/L (98-107); CO2 20 mmol/L (21-32); CREATININE 2.9 mg/dL (0.55-1.02); GLUCOSE,RANDOM 253 mg/dL (74-106); POTASSIUM 4.1 mmol/L (3.5-5.1); SGOT/AST 14 U/L (15-37); SGPT/ALT 15 U/L (12-78); SODIUM 143 mmol/L (136-145)
[2017-09-27 03:11] VITALS: BP 167/63
[2017-09-27 03:12] LABS: ALK PHOS 47 U/L (45-117); BILIRUBIN,TOTAL 0.3 mg/dL (0.2-1.0); TOT PROT 5.9 g/dl (6.4-8.2)
[2017-09-27 04:22] VITALS: PULSE 74; TEMP 98.5
--- NOTE | 2017-09-28 10:26 | EKG ---
Test Reason : Blood Pressure : / mmHG Vent. Rate : 063 BPM Atrial Rate : 063 BPM P-R Int : 148 ms QRS Dur : 082 ms QT Int : 430 ms P-R-T Axes : 071 -40 074 degrees QTc Int : 440 ms NORMAL SINUS RHYTHM LEFT AXIS DEVIATION CANNOT RULE OUT SEPTAL INFARCT , AGE UNDETERMINED ABNORMAL ECG WHEN COMPARED WITH ECG OF 26-JUN-2017 19:42, LIKELY NO SIGNIFICANT CHANGES WERE FOUND Confirmed by JOSE ALEJANDRO VILLAGRAN, ANDER ([id number]) on 09/28/2017 10:26:20 AM Referred By: Confirmed By:ANDER BLOUNT MD
== END 2017-09-27 04:20 | disposition home or self-care (01) ==
LOC: JER 22:35
PROC: 3E033GC Introduction of Other Therapeutic Substance into Peripheral Vein, Percutaneous Approach (ICD-10-PCS; principal; 2017-09-26)
DX: E11.649 Type 2 diabetes mellitus with hypoglycemia without coma (principal); Z79.4 Long term (current) use of insulin; R06.02 Shortness of breath; I25.10 Atherosclerotic heart disease of native coronary artery without angina pectoris; Z98.61 Coronary angioplasty status; I13.10 Hypertensive heart and chronic kidney disease without heart failure, with stage 1 through stage 4 chronic kidney disease, or unspecified chronic kidney disease; N18.4 Chronic kidney disease, stage 4 (severe); Z72.0 Tobacco use; I25.2 Old myocardial infarction; I48.91 Unspecified atrial fibrillation; Z79.01 Long term (current) use of anticoagulants; D64.9 Anemia, unspecified; J45.909 Unspecified asthma, uncomplicated; J44.9 Chronic obstructive pulmonary disease, unspecified; E78.00 Pure hypercholesterolemia, unspecified; F32.9 Major depressive disorder, single episode, unspecified
CPT/HCPCS: 36415; 71045-TC-FY; 80053; 81003; 81015; 82550; 84443; 84484; 85025; 85610; 87086; 93005; 93010; 96374; 99283-25

== ENCOUNTER 2017-12-09 11:48 | Inpatient (IN) | payer OTHER ==
[2017-12-09] MEDS ORDERED: ALBUTEROL SO4 2.5/IPRATROPIUM 0.5 INH SOL 3 ML VIAL.NEB. NEB ONE ×4 (12:02→20:35)
[2017-12-09] MEDS ORDERED: ALBUTEROL SO4 0.083% IH SOL 2.5 MG/3 ML VIAL.NEB. NEB ONE (12:02)
--- NOTE | 2017-12-09 12:16 | PDOC ---
History of Present Illness - General Chief Complaint: Shortness of Breath Stated Complaint: Shortness of Breath Time Seen by Provider: 12/09/17 12:14 History Source: Patient - History of Present Illness Timing/Duration: reports: yesterday Associated Symptoms: reports: shortness of breath. denies: chest pain/soreness , cough, fever/chills, wheezing Past History - Past Medical History Allergies/Adverse Reactions: Allergies Allergy/AdvReac Type Severity Reaction Status Date / Time No Known Allergies Allergy Verified 12/09/17 12:17 Home Medications: Ambulatory Orders Dexlansoprazole [Dexilant] 30 mg PO DAILY #30 08/02/15 Insulin Sliding Scale [Novolog Vial Sliding Scale -] 1 vial SQ ACHS units 08/01 Insulin (Levemir) [Levemir Flexpen -] 20 units SQ HS #1 vial 06/12/16 Sodium Bicarbonate - 650 mg PO DAILY #14 tablet 06/12/16 Cholecalciferol (Vitamin D3) [Vitamin D3] 1,000 unit PO WEEKLY 01/28/17 Diltiazem Cd [Cardizem Cd -] 180 mg PO BID 01/28/17 Golden/Polymyx B Sulf/Dexameth [Maxitrol Eye Drops -] 1 drop OS Q4H 01/28/17 hydrALAZINE HCL [Apresoline -] 100 mg PO TID 01/28/17 Ferrous Sulfate 325 mg PO DAILY 02/02/17 Warfarin Na [Coumadin] 7.5 mg PO DAILY@1800 #30 tablet 05/27/17 Anemia: Yes Asthma: Yes Cancer: No Cardiac Disorders: Yes (AF ablation) CVA: No COPD: No CHF: No DVT: No Dementia: No Diabetes: Yes (IDDM) Dialysis: No (ckd) GI Disorders: No Disorders: Yes (frequency) HTN: Yes Hypercholesterolemia: Yes Liver Disease: No Psychiatric Problems: Yes (DEPRESSION) Seizures: No Thyroid Disease: No - Surgical History Abdominal Surgery: Yes (TUBAL LIG.) Appendectomy: No Cardiac Surgery: Yes (ablation) Cholecystectomy: No Lung Surgery: No Neurologic Surgery: No Orthopedic Surgery: Yes (hammer toes,trigger finger) - Family Disease History Family Disease History: Diabetes: Grandparents, CA: Mother (htn) - Immunization History Immunization Up to Date: Yes - Suicide/Smoking/Psychosocial Hx Smoking Status: Yes Smoking History: Never smoked Have you smoked in the past 12 months: No Number of Cigarettes Smoked Daily: 1 If you are a former smoker, when did you quit?: 2 MO AGO 'Breaking Loose' booklet given: 06/22/15 Hx Alcohol Use: No Drug/Substance Use Hx: No Substance Use Type: None Hx Substance Use Treatment: No Review of Systems - Review of Systems Constitutional: No: Chills, Fever Respiratory: Yes: Shortness of Breath. No: Cough Cardiac (ROS): No: Chest Pain, Lightheadedness, Palpitations, Syncope ABD/GI: No: Nausea, Vomiting *Physical Exam - Physical Exam General Appearance: Yes: Appropriately Dressed. No: Apparent Distress HEENT: positive: Normal Voice Neck: positive: Supple Respiratory/Chest: positive: Lungs Clear, Normal Breath Sounds. negative: Respiratory Distress, Wheezing Cardiovascular: positive: Regular Rate, S1, S2 Gastrointestinal/Abdominal: positive: Soft. negative: Tender Extremity: negative: Pedal Edema Integumentary: positive: Dry, Warm Neurologic: positive: Fully Oriented, Alert, Normal Mood/Affect ED Treatment Course - LABORATORY CBC & Chemistry Diagram: 12/09/17 12:40 12/09/17 12:40 - RADIOLOGY Radiology Studies Ordered: Category Date Time Status CHEST X-RAY PORTABLE* [RAD] Stat Radiology 12/09/17 12:14 Ordered Medical Decision Making - Medical Decision Making 12/09/17 12:16 77 yo F, h/o IDDM, hypertension, NSTEMI 05/17, declined cath at the time, had neg nuclear stress, afib, s/p ablation, on coumadin, CKD, asthma, former smoker , COPD, anemia, depression, history of DVT, here with worsening shortness of breath since yesterday despite position. No chest tightness, pain, wheezing, cough, fever, chills, palpitations, leg pain or swelling See exam SOB R/o ACS vs CHF vs asthma/copd flare vs PE, less likely dissection Stable w/ unremarkable exam -ekg -cxr -labs -anticipate admission 12/09/17 14:09 EKG, CXR and labs unremarkable except for subtherapeutic INR of 1.44. Family now at bedside and states they received a call from Dr Berman's office yesterday that patient's INR sent off on [place] was subtherapeutic but family was not given further instructions. Will admit at this time to rule out PE. Unable to get CTA given CKD. Most likely will need a VQ scan. Continues to complain of some shortness of breath that was not relieved with nebulizer. 12/09/17 14:31 Case discussed with admitting team and patient admitted to telemetry. Consult to Dr. Nacho doyle. Admitting team to also consult pulmonary *DC/Admit/Observation/Transfer Diagnosis at time of Disposition: SOB (shortness of breath) - Discharge Dispostion Condition at time of disposition: Fair Decision to Admit order: Yes - Referrals Referrals: Myesha Khan MD [Primary Care Provider] - - Patient Instructions - Post Discharge Activity
[2017-12-09 12:52] LABS: BASO % 1.6 % (0-2.0); EOS % 0.3 % (0-4.5); HEMATOCRIT 34.4 % (32.4-45.2); HEMOGLOBIN 11.1 GM/dL (10.7-15.3); MCH 30.6 pg (25.7-33.7); MCHC 32.3 g/dl (32.0-36.0); MEAN CELL VOLUME 94.6 fl (80-96); MEAN PLT VOLUME 9.5 fl (7.5-11.1); MONO % 10.2 % (3.8-10.2); NEUT % 62.9 % (42.8-82.8); PLATELET COUNT 190 K/MM3 (134-434); RBC 3.64 M/mm3 (3.60-5.2); WHITE BLOOD COUNT 5.6 K/mm3 (4.0-10.0)
[2017-12-09 13:11] LABS: INR 1.44 (0.83-1.09)
[2017-12-09 13:39] LABS: ALBUMIN 3.4 g/dl (3.4-5.0); ALK PHOS 47 U/L (45-117); ANION GAP 9 MMOL/L (8-16); BILIRUBIN,TOTAL 0.3 mg/dL (0.2-1); BLOOD UREA NITROGEN 60 mg/dL (7-18); CALCIUM 8.4 mg/dL (8.5-10.1); CHLORIDE 110 mmol/L (98-107); CO2 22 mmol/L (21-32); CREATININE 3.7 mg/dL (0.55-1.3); GLUCOSE,RANDOM 167 mg/dL (74-106); N-TERMINAL BNP 629.6 pg/ml (5-450); POTASSIUM 3.3 mmol/L (3.5-5.1); SGOT/AST 15 U/L (15-37); SGPT/ALT 13 U/L (13-61); SODIUM 142 mmol/L (136-145); TOT PROT 6.8 g/dl (6.4-8.2)
[2017-12-09] MEDS ORDERED: methylPREDNISolone NA SUCC 125 MG/2 ML VIAL IVPUSH ONE (14:11)
[2017-12-09] MEDS ORDERED: methylPREDNISolone NA SUCC 125 MG/2 ML VIAL ONE (14:49)
--- NOTE | 2017-12-09 15:16 | EKG ---
Test Reason : Blood Pressure : / mmHG Vent. Rate : 085 BPM Atrial Rate : 089 BPM P-R Int : 162 ms QRS Dur : 086 ms QT Int : 402 ms P-R-T Axes : 071 -36 075 degrees QTc Int : 478 ms SINUS RHYTHM WITH PREMATURE ATRIAL COMPLEXES LEFT AXIS DEVIATION ANTEROSEPTAL INFARCT (CITED ON OR BEFORE 26-SEP-2017) ABNORMAL ECG WHEN COMPARED WITH ECG OF 26-SEP-2017 22:44, PREMATURE ATRIAL COMPLEXES ARE NOW PRESENT QUESTIONABLE CHANGE IN INITIAL FORCES OF ANTERIOR LEADS Confirmed by NICK VILLAGRAN, BART ([id number]) on 12/09/2017 3:16:02 PM Referred By: Confirmed By:BART ROMERO MD
[2017-12-09] MEDS ORDERED: HEPARIN - 25,000 UNIT in SODIUM CHLORIDE 495 ML IV SCH (15:30)
[2017-12-09] MEDS ORDERED: HEPARIN NA (PORCINE) 5,000 UNITS/ML 1ML VIAL IVPUSH PRN ×4 (15:30→15:45)
--- NOTE | 2017-12-09 15:44 | HP ---
CHIEF COMPLAINT: Shortness of breath PCP: HISTORY OF PRESENT ILLNESS: Patient is a 77 year old female with history significant for hypertension, diabetes, atrial fibrillation (s/p ablation, on Coumadin), left lower extremity DVT, asthma, COPD presents with complaint of shortness of breath. Began this morning with gradual progression upon waking up this morning. She attempted to perform physical therapy exercises, but was unable. Admits feeling lightheaded, chills, and cough productive with clear sputum. Denies fevers, chest pain, palpitations, hemoptysis, falls, loss of consciousness. At her baseline, she sleeps at home with a "wedge pillow" as she is unable to sleep on flat surface due to orthopnea. She can walk up to 300 feet on level ground with a cane, and can walk up one flight of stairs. ER course was notable for: (1) INR 1.44, BNP 692.6 (2) CXR shows no acute pathology (3) Albuterol nebulizer, solu-medrol Recent Travel: PAST MEDICAL HISTORY: Hypertension, diabetes, atrial fibrillation (s/p ablation , on Coumadin), left lower extremity DVT, asthma, COPD, anxiety, chronic kidney disease, GERD PAST SURGICAL HISTORY: Cardiac ablation (for Afib), cardiac catheterization Social History: Smoking: Former smoker quit 1 year ago. Smoked since 13y/o began at 2-3 cigarettes a day and progressed to one pack per day before quitting Alcohol: Socially admits to one drink Drugs: Denies illicut drug use. Family History: Allergies No Known Allergies Allergy (Verified 12/09/17 12:17) HOME MEDICATIONS: Home Medications Medication Instructions Recorded Dexlansoprazole [Dexilant] 30 mg PO DAILY #30 08/02/15 Insulin (Levemir) [Levemir Flexpen 20 units SQ HS #1 vial 06/12/16 -] hydrALAZINE HCL [Apresoline -] 100 mg PO Q8H 01/28/17 Ferrous Sulfate 325 mg PO DAILY 02/02/17 Folic Acid 1 mg PO DAILY 12/09/17 Furosemide [Lasix] 40 mg PO DAILY 12/09/17 Isosorbide Mononitrate [Isosorbide 60 mg PO DAILY 12/09/17 Mononitrate ER] Nifedipine [Nifedipine ER] 60 mg PO DAILY 12/09/17 Pantoprazole Sodium 40 mg PO BID 12/09/17 Tolterodine Tartrate 2 mg PO BID 12/09/17 Umeclidinium Brm/Vilanterol Tr 1 puff IH DAILY 12/09/17 [Anoro Ellipta 62.5-25 Mcg INH] Warfarin Na [Coumadin] 6 mg PO DAILY@1800 12/09/17 REVIEW OF SYSTEMS CONSTITUTIONAL: Admits: chills, generalized weakness, malaise. Absent: fever, diaphoresis. HEENT: Absent: rhinorrhea, nasal congestion, throat swelling, difficulty swallowing, ear pain, eye pain, visual changes CARDIOVASCULAR: Admits: lightheadedness. Absent: chest pain, syncope, palpitations, peripheral edema RESPIRATORY: Admits: cough productive with clear sputum, shortness of breath, dyspnea with exertion, orthopnea. Denies: hemoptysis. GASTROINTESTINAL: Absent: abdominal pain, abdominal distension, nausea, vomiting, diarrhea, constipation GENITOURINARY: Absent: dysuria, frequency, urgency, hesitancy, MUSCULOSKELETAL: Absent: myalgia, arthralgia, joint swelling, NEUROLOGIC: Absent: headache, focal weakness or paresthesias, dizziness, seizure, mental status changes PHYSICAL EXAMINATION Vital Signs - 24 hr 12/09/17 12:12 Temperature 98.2 F Pulse Rate 92 H Respiratory 20 Rate Blood Pressure 125/75 O2 Sat by Pulse 100 Oximetry (%) GENERAL: Awake, alert, and fully oriented, in no some respiratory distress. HEAD: Normal with no signs of trauma. EYES: Pupils equal, round and reactive to light, extraocular movements intact without nystagmus b/l. Sclera anicteric, conjunctiva clear b/l. EARS, NOSE, THROAT: Oropharynx clear without exudates, mild erythema. Moist mucous membranes. NECK: Normal range of motion, supple without lymphadenopathy. No JVD appreciated. LUNGS: Tachypnic. Good inspiratory effort b/l. Inspiratory effort poor within b/ l lower lung lobes with faint crackles auscultated. HEART: Irregular rate and rhythm. Normal S1 and S2 without murmur, rub or gallop. ABDOMEN: Soft, nontender, not distended. Normoactive bowel sounds X4 quadrants. No guarding, no rebound tenderness. No hepatomegaly appreciated. MUSCULOSKELETAL: Normal range of motion at all joints. No bony deformities or tenderness. strength 4/5 b/l upper and lower extremities. UPPER EXTREMITIES: 2+ radial pulses b/l, warm, well-perfused. No cyanosis noted. LOWER EXTREMITIES: 2+ dorsalis pulses b/l, warm, well-perfused. No calf tenderness b/l. Trace peripheral lower extremity pitting edema b/l. NEUROLOGICAL: Cranial nerves II-XII intact. Normal speech. No gross focal deficits. PSYCHIATRIC: Cooperative. Appropriate mood and affect upon my encounter today. SKIN: Warm, dry, no rashes or lesions noted. Laboratory Results - last 24 hr 12/09/17 12/09/17 12/09/17 12:40 12:40 12:40 WBC 5.6 RBC 3.64 Hgb 11.1 Hct 34.4 MCV 94.6 MCH 30.6 MCHC 32.3 RDW 16.0 H Plt Count 190 MPV 9.5 Absolute Neuts (auto) 3.5 Neutrophils % 62.9 Lymphocytes % 25.0 Monocytes % 10.2 Eosinophils % 0.3 Basophils % 1.6 Nucleated RBC % 0 PT with INR 17.00 H INR 1.44 H Sodium 142 Potassium 3.3 L Chloride 110 H Carbon Dioxide 22 Anion Gap 9 BUN 60 H Creatinine 3.7 H Creat Clearance w eGFR 11.82 Random Glucose 167 H Calcium 8.4 L Total Bilirubin 0.3 AST 15 ALT 13 Alkaline Phosphatase 47 Creatine Kinase 112 Troponin I < 0.02 B-Natriuretic Peptide 629.6 H Total Protein 6.8 Albumin 3.4 Chest Xray: No acute pulmonary pathology noted. EKG: Sinus rhythm with premature atrial complexes, left axis deviation, old anteroseptal infarct previously noted 09/26/2017. ASSESSMENT/PLAN: Patient is a 77 year old female with history significant for hypertension, diabetes, atrial fibrillation (s/p ablation, on Coumadin), left lower extremity DVT, asthma, COPD presents with complaint of shortness of breath that began this morning. Acute respiratory failure -Shortness of breath may be secondary to COPD, asthma exacerbation vs. pulmonary embolism as her INR is subtherapeutic at 1.44 -Unlikely due to DC, first troponin negative. Will F/U serial troponins to rule out DC. -Unable to perform CTA to rule out pulmonary embolism due to acute on chronic kidney disease -Pulmonary consult (Dr. Fletcher) appreciated. -Will begin Heparin drip, weight based -Solu-medrol 40mg IV Q6H -Duonebs 1amp QID -Ventolin nebulizer 1 amp Q4H PRN -Symbicort 2 puffs IH BID -Rocephin 1 gram IV daily -F/U ABG Afib -INR subtherapeutic at 1.44 -Reinstate Coumadin at 7.5mg tonight -Will F/U INR -F/U cardiac ECHO -F/U cardiology consult (Dr. Griffith) Diabetes Mellitus -Hold home medications -Levemir 20 units SQ HS -ISS TIDAC -BGM ACHS Hypertension -Hydralazine 100mg PO TID -Imdur 60mg PO daily -Nifedipine 60mg PO daily Acute on chronic kidney disease -Creatinine today 3.7, baseline from prior admissions around 3.0 -F/U nephrology consult (Dr. To) Anemia -Reinstate ferrous sulfate 325mg PO daily -Reinstate folic acid 1mg PO daily FEN -No IV fluids indicated at this time -Will follow CMP -Diabetic, sodium controlled diet Prophylaxis -Heparin drip (weight based) -Coumadin 7.5mg PO tonight -Protonix 40mg PO BID Disposition -Admit to ICU for care Visit type - Emergency Visit Emergency Visit: Yes ED Registration Date: 12/09/17 Care time: The patient presented to the Emergency Department on the above date and was hospitalized for further evaluation of their emergent condition. - New Patient This patient is new to me today: Yes Date on this admission: 12/09/17 - Critical Care Critical Care patient: Yes Total Critical Care Time (in minutes): 35 Critical Care Statement: The care of this patient involved high complexity decision making to prevent further life threatening deterioration of the patient 's condition and/or to evaluate & treat vital organ system(s) failure or risk of failure.
[2017-12-09] MEDS ORDERED: HEPARIN INFUSION - 25,000 UNITS/500 ML INFUS.BAG IVPB SCH (15:45)
[2017-12-09] MEDS ORDERED: ALBUTEROL SO4 0.083% IH SOL 2.5 MG/3 ML VIAL.NEB. NEB PRN ×2 (15:52→16:13)
[2017-12-09] MEDS: ALBUTEROL SO4 2.5/IPRATROPIUM 0.5 INH SOL 3 ML VIAL.NEB. NEB SCH ×2 (15:59→20:41)
[2017-12-09] MEDS: methylPREDNISolone NA SUCC 40 MG/1 ML VIAL IVPUSH SCH ×2 (15:59→20:48)
[2017-12-09] MEDS ORDERED: CEFTRIAXONE 1 GM/50 ML BAG ONE (16:21)
[2017-12-09] MEDS ORDERED: HEPARIN INFUSION - 25,000 UNITS/500 ML INFUS.BAG IVPB ONE (16:25)
[2017-12-09] MEDS ORDERED: KCL 10 MEQ IVPB 10 MEQ/100 ML INFUS.BAG IVPB ONE ×3 (16:40→19:04)
--- NOTE | 2017-12-09 16:43 | CON.CARD ---
Consult Consult Specialty:: Cardiology - History of Present Illness Chief Complaint: Dyspnea History of Present Illness: This is a 77 year old female with a PMH of hypertension, diabetes, atrial fibrillation (s/p ablation, on Coumadin), left lower extremity DVT, asthma, and COPD. At baseline she has 1/2 JOHNSON. She now presents with SOB at rest. She is S/ P a hospitalization at [facility] followed by Nathanael Petersen for a similar complaint. Of note, her INR's have been subtherapeutic. 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 Cardio/Vascular: Yes: AFIB, CHF, HTN, Hyperlipdemia, Other (Atrial flutter s/p ablation, PAD) Pulmonary: Yes: COPD Renal/: Yes: Renal Inusuff (stage 4), Other (Overactive Bladder) Psych: Yes: Depression Endocrine: Yes: Diabetes Mellitus (initially on oral agents, now on insulin) - Past Surgical History Past Surgical History: Yes: Colonoscopy (polyps a few years ago), Hysterectomy ( fibroids), Tubal Ligation, Upper Endoscopy (neg 1+ yrs ago) - Alcohol/Substance Use Hx Alcohol Use: No - Smoking History Smoking history: Never smoked Have you smoked in the past 12 months: No Aproximately how many cigarettes per day: 1 If you are a former smoker, when did you quit?: 2 MO AGO - Social History Usual Living Arrangement: With Child ADL: Family Assistance History of Recent Travel: No Home Medications - Allergies Allergies/Adverse Reactions: Allergies Allergy/AdvReac Type Severity Reaction Status Date / Time No Known Allergies Allergy Verified 12/09/17 12:17 - Home Medications Home Medications: Ambulatory Orders Dexlansoprazole [Dexilant] 30 mg PO DAILY #30 08/02/15 Insulin (Levemir) [Levemir Flexpen -] 20 units SQ HS #1 vial 06/12/16 hydrALAZINE HCL [Apresoline -] 100 mg PO Q8H 01/28/17 Ferrous Sulfate 325 mg PO DAILY 02/02/17 Folic Acid 1 mg PO DAILY 12/09/17 Furosemide [Lasix] 40 mg PO DAILY 12/09/17 Isosorbide Mononitrate [Isosorbide Mononitrate ER] 60 mg PO DAILY 12/09/17 Nifedipine [Nifedipine ER] 60 mg PO DAILY 12/09/17 Pantoprazole Sodium 40 mg PO BID 12/09/17 Tolterodine Tartrate 2 mg PO BID 12/09/17 Umeclidinium Brm/Vilanterol Tr [Anoro Ellipta 62.5-25 Mcg INH] 1 puff IH DAILY 12/09/17 Warfarin Na [Coumadin] 6 mg PO DAILY@1800 12/09/17 Family Disease History - Family Disease History Family Disease History: Diabetes: Grandparent, Mother, Sister (lung cancer), [place] : Sister Vital Signs: Vital Signs Temperature 98.2 F 12/09/17 12:12 Pulse Rate 92 H 12/09/17 12:12 Respiratory Rate 20 12/09/17 12:12 Blood Pressure 125/75 12/09/17 12:12 O2 Sat by Pulse Oximetry (%) 100 12/09/17 12:12 Constitutional: Yes: Mild Distress Neck: Yes: WNL (Mild JVD) Respiratory: Yes: Diminished (Basilar crackles) Gastrointestinal: Yes: Soft Cardiovascular: Yes: Regular Rate and Rhythm (NL S1S2 No MRHG) Edema: LLE: Trace, RLE: Trace Neurological: Yes: Alert, Oriented (Non focal) - Other Data Labs, Other Data: CBC, BMP 12/09/17 12:40 12/09/17 12:40 INR, PTT INR 1.44 (0.83-1.09) H 12/09/17 12:40 Troponin, BNP 12/09/17 12:40 Troponin I < 0.02 B-Natriuretic Peptide 629.6 H Troponin, BNP 12/09/17 12:40 Troponin I < 0.02 B-Natriuretic Peptide 629.6 H Assessment/Plan 77 year old female with a PMH of hypertension, diabetes, atrial fibrillation (s/ p ablation, on Coumadin), left lower extremity DVT, asthma, and COPD. At baseline she has 1/2 JOHNSON. She now presents with SOB at rest. She is S/P a hospitalization at [facility] followed by Nathanael Petersen for a similar complaint. Of note , her INR's have been subtherapeutic. BNP is 692.6 CXR is unremarkable troponin X1 negative Her dyspnea is most likely a combination of COPD and diastolic CHF Dyspnea Agree with ruling out a PE with a V/Q scan Would also obtain an echocardiogram Daughter to provide records from [facility] Would given Lasix 40 mg IVSS BID Daily I's/O's/Wt's/Lytes Continue Hydralazine 100 mg Q8 h/Imdur 60 mg PO daily HTN Continue Nifedipine XL 60 mg PO PO daily AFIB Continue coumadin to an INR of 2 - 3 Presently in NSR
[2017-12-09 16:58] LABS: ARTERIAL BLOOD GAS PCO2 26.6 mmHg (35-45); ARTERIAL BLOOD GAS pH 7.42 (7.35-7.45)
[2017-12-09 16:59] LABS: ARTERIAL BLD GAS O2 SATURATION 98.5 % (90-98.9); ARTERIAL BLOOD GAS BASE EXCESS -6.2 meq/l (-2-2); CARBOXYHEMOGLOBIN 1.4 gm% (0.5-2.0)
[2017-12-09 17:00] LABS: ALLENS TEST POSITIVE
[2017-12-09] MEDS: CEFTRIAXONE 1 GM in DEXTROSE 5%-WATER - 50 ML IVPB SCH (17:25)
[2017-12-09] MEDS: KCL 10 MEQ IVPB 10 MEQ/100 ML INFUS.BAG IVPB SCH ×3 (17:26→19:05)
[2017-12-09] MEDS: hydrALAZINE HCL 50 MG TABLET (FP) PO SCH ×2 (17:26→22:17)
--- NOTE | 2017-12-09 17:53 | PN ---
Progress Note (short form) - Note Progress Note: PULMONARY CONSULTATION DICTATED 12/09/17 IMP ACUTE RESPIRATORY DISTRESS LIKELY COMBINED COPD EXACERBATION/DIASTOLIC HF AF H/O DVT DM CKD NEUROPATHY PULMONARY HTN HTN GERD PLAN IV HEPARIN STEROIDS INHALED BRONCHODILATORS SUPPLEMENTAL O2 F/U CHEST X-RAYS DUPLEX LOWER EXTREMITIES MONITORED BED GLYCEMIC CONTROL DR GOULD Problem List - Problems (1) Afib Code(s): I48.91 - UNSPECIFIED ATRIAL FIBRILLATION (2) Shortness of breath Code(s): R06.02 - SHORTNESS OF BREATH (3) COPD (chronic obstructive pulmonary disease) Code(s): J44.9 - CHRONIC OBSTRUCTIVE PULMONARY DISEASE, UNSPECIFIED Qualifiers: COPD type: chronic bronchitis (4) Current smoker Code(s): F17.200 - NICOTINE DEPENDENCE, UNSPECIFIED, UNCOMPLICATED (5) Diastolic CHF Code(s): I50.30 - UNSPECIFIED DIASTOLIC (CONGESTIVE) HEART FAILURE Qualifiers: Heart failure chronicity: chronic Qualified Code(s): I50.32 - Chronic diastolic (congestive) heart failure (6) IDDM (insulin dependent diabetes mellitus) Code(s): E11.9 - TYPE 2 DIABETES MELLITUS WITHOUT COMPLICATIONS; Z79.4 - LABOR SPECIALIST (CURRENT) USE OF INSULIN (7) COPD exacerbation Code(s): J44.1 - CHRONIC OBSTRUCTIVE PULMONARY DISEASE W (ACUTE) EXACERBATION (8) CAD (coronary artery disease) Code(s): I25.10 - ATHSCL HEART DISEASE OF [place] CORONARY ARTERY W/O ANG PCTRS (9) CHF (congestive heart failure) Code(s): I50.9 - HEART FAILURE, UNSPECIFIED (10) CKD stage 4 due to type 2 diabetes mellitus Code(s): E11.22 - TYPE 2 DIABETES MELLITUS W DIABETIC CHRONIC KIDNEY DISEASE; N18.4 - CHRONIC KIDNEY DISEASE, STAGE 4 (SEVERE) (11) Depression Code(s): F32.9 - MAJOR DEPRESSIVE DISORDER, SINGLE EPISODE, UNSPECIFIED Qualifiers: Depression Type: unspecified Qualified Code(s): F32.9 - Major depressive disorder, single episode, unspecified (12) Gastroesophageal reflux disease Code(s): K21.9 - GASTRO-ESOPHAGEAL REFLUX DISEASE WITHOUT ESOPHAGITIS (13) History of DVT (deep vein thrombosis) Code(s): Z86.718 - PERSONAL HISTORY OF OTHER VENOUS THROMBOSIS AND EMBOLISM (14) History of atrial flutter Code(s): Z86.79 - PERSONAL HISTORY OF OTHER DISEASES OF THE CIRCULATORY SYSTEM (15) Pulmonary hypertension Code(s): I27.2 - OTHER SECONDARY PULMONARY HYPERTENSION * DO NOT USE * (16) CKD (chronic kidney disease) Code(s): N18.9 - CHRONIC KIDNEY DISEASE, UNSPECIFIED
[2017-12-09] MEDS ORDERED: WARFARIN NA 7.5 MG TABLET (FP) PO ONE (18:00)
--- NOTE | 2017-12-09 18:23 | PN ---
Teaching Attending Note Name of Resident: Ibrahima Reilly ATTENDING PHYSICIAN STATEMENT I saw and evaluated the patient. I reviewed the resident's note and discussed the case with the resident. I agree with the resident's findings and plan as documented. SUBJECTIVE: Patient is a 77 year old female with history significant for hypertension, diabetes, atrial fibrillation (s/p ablation, on Coumadin), left lower extremity DVT, asthma, COPD presents with complaint of shortness of breath which is worse today. OBJECTIVE: Vital Signs Temperature 98.2 F 12/09/17 12:12 Pulse Rate 86 12/09/17 18:07 Respiratory Rate 23 H 12/09/17 18:07 Blood Pressure 166/67 12/09/17 18:07 O2 Sat by Pulse Oximetry (%) 100 12/09/17 18:08 GENERAL: Awake, alert, and fully oriented, in no some respiratory distress. HEAD: Normal with no signs of trauma. EYES: Pupils equal, round and reactive to light, extraocular movements intact without nystagmus b/l. Sclera anicteric, conjunctiva clear b/l. EARS, NOSE, THROAT: Oropharynx clear without exudates, mild erythema. Moist mucous membranes. NECK: supple , no lymphadenopathy. No JVD LUNGS: Tachypnic. decreased air entery BL . HEART: Irregular rate and rhythm. Normal S1 and S2 , ANDREA 2/6 ,no rub or gallop. ABDOMEN: Soft, nontender, not distended. BS positive, guarding, no rebound tenderness. No hepatomegaly appreciated. EXTREMITIES: 2+ dorsalis pulses b/l, warm, well-perfused. No calf tenderness b/ l. Trace edema . NEUROLOGICAL: Cranial nerves II-XII intact. Normal speech. No gross focal deficits. PSYCHIATRIC: Cooperative. Appropriate mood and affect upon my encounter today. SKIN: Warm, dry, no rashes or lesions noted. CBCD WBC 5.6 K/mm3 (4.0-10.0) 12/09/17 12:40 RBC 3.64 M/mm3 (3.60-5.2) 12/09/17 12:40 Hgb 11.1 GM/dL (10.7-15.3) 12/09/17 12:40 Hct 34.4 % (32.4-45.2) 12/09/17 12:40 MCV 94.6 fl (80-96) 12/09/17 12:40 MCHC 32.3 g/dl (32.0-36.0) 12/09/17 12:40 RDW 16.0 % (11.6-15.6) H 12/09/17 12:40 Plt Count 190 K/MM3 (134-434) 12/09/17 12:40 MPV 9.5 fl (7.5-11.1) 12/09/17 12:40 CMP Sodium 142 mmol/L (136-145) 12/09/17 12:40 Potassium 3.3 mmol/L (3.5-5.1) L 12/09/17 12:40 Chloride 110 mmol/L (98-107) H 12/09/17 12:40 Carbon Dioxide 22 mmol/L (21-32) 12/09/17 12:40 Anion Gap 9 MMOL/L (8-16) 12/09/17 12:40 BUN 60 mg/dL (7-18) H 12/09/17 12:40 Creatinine 3.7 mg/dL (0.55-1.3) H 12/09/17 12:40 Creat Clearance w eGFR 11.82 (>60) 12/09/17 12:40 Random Glucose 167 mg/dL (74-106) H 12/09/17 12:40 Calcium 8.4 mg/dL (8.5-10.1) L 12/09/17 12:40 Total Bilirubin 0.3 mg/dL (0.2-1) 12/09/17 12:40 AST 15 U/L (15-37) 12/09/17 12:40 ALT 13 U/L (13-61) 12/09/17 12:40 Alkaline Phosphatase 47 U/L (45-117) 12/09/17 12:40 Total Protein 6.8 g/dl (6.4-8.2) 12/09/17 12:40 Albumin 3.4 g/dl (3.4-5.0) 12/09/17 12:40 CARDIAC ENZYMES Creatine Kinase 112 IU/L (26-192) 12/09/17 12:40 Troponin I < 0.02 ng/ml (0.00-0.05) 12/09/17 12:40 Current Medications Generic Name Dose Route Start Last Admin Trade Name Freq PRN Reason Stop Dose Admin Albuterol Sulfate 1 amp 12/09/17 16:13 Ventolin 0.083% Nebulizer Soln - NEB Q4H PRN SHORT OF BREATH/WHEEZING Albuterol/Ipratropium 1 amp 12/09/17 16:00 12/09/17 15:59 Duoneb - NEB 1 amp RQID [facility] Administration Budesonide/Formoterol Fumarate 2 puff 12/09/17 22:00 Symbicort 160/4.5mcg - IH BID [facility] Ferrous Sulfate 325 mg 12/10/17 10:00 Feosol - PO DAILY [facility] Folic Acid 1 mg 12/10/17 10:00 Folic Acid - PO DAILY [facility] Heparin Sodium (Porcine) 3,400 unit 12/09/17 15:30 Heparin - 40 unit/kg (3400 unit) IVPUSH PRN PRN For aPTT 35 to 45 seconds Heparin Sodium (Porcine) 6,700 unit 12/09/17 15:30 Heparin - 80 unit/kg (6700 unit) IVPUSH PRN PRN aPTT <35 seconds Hydralazine HCl 100 mg 12/09/17 16:00 12/09/17 17:26 Apresoline - PO 100 mg TID [facility] Administration Ceftriaxone Sodium 1 gm/ 50 mls @ 100 mls/hr 12/09/17 16:00 12/09/17 17:25 Dextrose IVPB 100 mls/hr DAILY [facility] Administration Protocol Heparin Sodium (Porcine) 25, 500 mls @ 30.37 mls/hr 12/09/17 15:30 12/09/17 17:25 000 unit/ Sodium Chloride IV 18 unit/kg/hr TITR [facility] 30.37 mls/hr Administration Protocol 18 UNIT/KG/HR Potassium Chloride 10 meq in 100 mls @ 100 mls/hr 12/09/17 16:30 12/09/17 17: 26 Potassium Chloride 10 Meq Premix Ivpb - IVPB 12/09/17 19:29 100 mls/hr Q60M [facility] Administration Insulin Aspart 1 vial 12/09/17 16:30 Novolog Vial Sliding Scale - SQ TIDAC [facility] Protocol Insulin Detemir 20 units 12/09/17 22:00 Levemir Vial SQ HS [facility] Isosorbide Mononitrate 60 mg 12/10/17 10:00 Imdur - PO DAILY [facility] Methylprednisolone Sodium Succinate 40 mg 12/09/17 15:45 12/09/17 15:59 Solu-Medrol - IVPUSH Not Given Q6H-IV [facility] Nifedipine 60 mg 12/10/17 10:00 Procardia Xl - PO DAILY [facility] Pantoprazole Sodium 40 mg 12/09/17 22:00 Protonix - PO BID [facility] Tolterodine Tartrate 2 mg 12/09/17 22:00 Detrol - PO BID [facility] Home Medications Medication Instructions Recorded Dexlansoprazole [Dexilant] 30 mg PO DAILY #30 08/02/15 Insulin (Levemir) [Levemir Flexpen 20 units SQ HS #1 vial 06/12/16 -] hydrALAZINE HCL [Apresoline -] 100 mg PO Q8H 01/28/17 Ferrous Sulfate 325 mg PO DAILY 02/02/17 Folic Acid 1 mg PO DAILY 12/09/17 Furosemide [Lasix] 40 mg PO DAILY 12/09/17 Isosorbide Mononitrate [Isosorbide 60 mg PO DAILY 12/09/17 Mononitrate ER] Nifedipine [Nifedipine ER] 60 mg PO DAILY 12/09/17 Pantoprazole Sodium 40 mg PO BID 12/09/17 Tolterodine Tartrate 2 mg PO BID 12/09/17 Umeclidinium Brm/Vilanterol Tr 1 puff IH DAILY 12/09/17 [Anoro Ellipta 62.5-25 Mcg INH] Warfarin Na [Coumadin] 6 mg PO DAILY@1800 12/09/17 CXR: No acute pathology ASSESSMENT AND PLAN: Patient is a 77 year old female with history significant for hypertension, diabetes, atrial fibrillation (s/p ablation, on Coumadin), left lower extremity DVT, asthma, COPD presents with complaint of shortness of breath which is worse today, with Labored breathing. # Acute SOB with Hx of DVT on subtherapeutic INR , cannot r/o PE, will start the patient on IV Heparin and coumadin to bridge. admit to icu, for close monitoring, since UNABle to have CTA done due to severe ARF, with cr. of 3.7 # ARF , will monitor, avoid nephrotoxic drugs. Nephro on the case, IVF x 1 liter. for consult. # COPD exacerbation with element of anxiety , SOlumedrol , oxygen, Neb. treatments. DVT Px: Heparin, coumadin
[2017-12-09] MEDS ORDERED: INSULIN (NOVOLOG) ASPART 100 UNITS/ML 10ML VIAL ONE (18:33)
[2017-12-09] MEDS: INSULIN SLIDING SCALE (NOVOLOG) 1 VIAL SQ SCH (18:34)
--- NOTE | 2017-12-09 19:07 | CONS ---
DATE OF CONSULTATION: 12/09/2017 REFERRING PHYSICIAN: Sandhya Harry M.D. HISTORY OF PRESENT ILLNESS: The patient is a 77-year-old black female with a past medical history includes COPD, atrial fibrillation status post ablation, with occurrence of atrial fibrillation currently maintained on Coumadin, diabetes, hypertension, diastolic heart failure, left lower extremity DVT, asthma, chronic kidney disease, hyperlipidemia, recently hospitalized at [facility] in September 2017 secondary to similar complaints of shortness of breath had an extensive workup at the time which revealed evidence of diastolic dysfunction as well as mild pulmonary artery pressure upper limits of normal. Had a CT scan of the chest which revealed a mosaic pattern, no infiltrates, post discharge transferred to [facility], was doing well, ambulating approximately a half block without any significant exertion. There was dyspnea until today when she developed shortness of breath at rest. Denies any chest pain, nausea, vomiting, diaphoresis. Denies any fevers or chills. Of note is she has a history of tobacco use many years, quit approximately 2 months ago with still occasional cigarette. She denies any nausea, vomiting. She denies any hemoptysis. Of note is the past week or so her INR is subtherapeutic. During the hospitalization she was evaluated by cardiology. She was started on antibiotic therapy, inhaled bronchodilators. Cardiology felt the symptoms most likely secondary to diastolic heart failure as well as COPD exacerbation. PAST MEDICAL HISTORY: Again includes diastolic heart failure, chronic kidney disease, COPD, ASHD, hypertension, diabetes, atrial fibrillation status post ablation with recurrence, currently on Coumadin. Left lower extremity DVT. Peripheral neuropathy. Depression. MEDICATION: Medications prior to admission include Dexilant, Levemir, Apresoline, folic acid, Lasix, Isordil, nifedipine, pantoprazole and Coumadin. CURRENT MEDICATIONS: Include Levemir, Symbicort, Solu-Medrol, ceftriaxone, heparin, DuoNeb, Apresoline, Protonix. REVIEW OF SYSTEMS: Positive orthopnea, positive dyspnea with minimal exertion. No chest pain, no palpitations, no fever, no chills, no hemoptysis, no abdominal pain. PHYSICAL EXAMINATION: GENERAL: The patient is an elderly black female awake, alert, currently in no acute respiratory distress. She is currently afebrile. VITAL SIGNS: Blood pressure is 125/75, respiratory rate 18. HEENT: Normocephalic, atraumatic. NECK: Supple. HEART: Irregularly irregular S1, S2. CHEST: A few scattered bilateral rhonchi with bibasilar crackles. ABDOMEN: Soft, bowel sounds positive. EXTREMITIES: No cyanosis, edema. LABORATORY: BUN is 60, creatinine 3.7, potassium 3.3, INR is 1.44. Blood gas: pH of 7.42, pCO2 of 26 and pO2 of 108, a bicarbonate of 16 and saturation of 98.5, that is on 2 L. Chest x-ray, no infiltrates, no effusions. IMPRESSION: Acute onset dyspnea, likely multiple factors: 1. COPD exacerbation, decompensated congestive heart failure, diastolic heart failure, 2. Cannot exclude pulmonary embolism. 3. History of diabetes. 4. Chronic kidney disease. 5. Hypertension. 6. Peripheral neuropathy. 7. Atrial fibrillation. PLAN: Continue inhaled bronchodilators. IV steroids. Anticoagulation. Obtain echo. Follow up chest x-rays. Duplex lower extremities, any evidence of increasing DVT. Possible VQ scan. KACEY GOULD M.D. [id number] MTDD
[2017-12-09] MEDS ORDERED: methylPREDNISolone NA SUCC 40 MG/1 ML VIAL ONE (20:43)
[2017-12-09] MEDS ORDERED: INSULIN (LEVEMIR) 100 UNITS/ML UNITS SQ SCH (22:00)
[2017-12-09] MEDS ORDERED: hydrALAZINE HCL 25 MG TABLET (FP) ONE (22:07)
[2017-12-09] MEDS ORDERED: PANTOPRAZOLE 40 MG TABLET (FP) ONE (22:07)
[2017-12-09] MEDS: PANTOPRAZOLE 40 MG TABLET (FP) PO SCH (22:18)
[2017-12-09] MEDS ORDERED: INSULIN (LEVEMIR) 100 UNITS/ML UNITS SQ ONE (22:32)
[2017-12-09] MEDS: BUDESONIDE/FORMETEROL FUMARATE 160/4.5 mcg INHALER IH SCH (23:16)
[2017-12-09] MEDS: TOLTERODINE TARTRATE 2 MG TABLET PO SCH (23:16)
[2017-12-10 03:01] LABS: BASO % 0.6 % (0-2.0); EOS % 0.4 % (0-4.5); HEMATOCRIT 32.6 % (32.4-45.2); HEMOGLOBIN 10.6 GM/dL (10.7-15.3); LYMPH % 5.5 % (8-40); MCH 31.3 pg (25.7-33.7); MCHC 32.7 g/dl (32.0-36.0); MEAN CELL VOLUME 95.9 fl (80-96); MEAN PLT VOLUME 9.9 fl (7.5-11.1); MONO % 0.6 % (3.8-10.2); NEUT % 92.9 % (42.8-82.8); PLATELET COUNT 193 K/MM3 (134-434); RBC 3.39 M/mm3 (3.60-5.2); RDW 16.2 % (11.6-15.6); WHITE BLOOD COUNT 4.9 K/mm3 (4.0-10.0)
[2017-12-10] MEDS: methylPREDNISolone NA SUCC 40 MG/1 ML VIAL IVPUSH SCH ×4 (03:40→23:10)
[2017-12-10] MEDS ORDERED: methylPREDNISolone NA SUCC 40 MG/1 ML VIAL ONE (03:49)
[2017-12-10] MEDS ORDERED: hydrALAZINE HCL 25 MG TABLET (FP) ONE (06:38)
[2017-12-10] MEDS: hydrALAZINE HCL 50 MG TABLET (FP) PO SCH ×3 (06:39→23:10)
[2017-12-10] MEDS ORDERED: INSULIN NPH 100 UNITS/ML *VIAL ONE (06:57)
[2017-12-10] MEDS: INSULIN SLIDING SCALE (NOVOLOG) 1 VIAL SQ SCH ×3 (06:59→17:53)
[2017-12-10 07:43] LABS: BASO % 0.3 % (0-2.0); HEMATOCRIT 32.3 % (32.4-45.2); HEMOGLOBIN 10.4 GM/dL (10.7-15.3); LYMPH % 7.6 % (8-40); MCH 30.9 pg (25.7-33.7); MCHC 32.2 g/dl (32.0-36.0); MEAN PLT VOLUME 9.8 fl (7.5-11.1); MONO % 1.3 % (3.8-10.2); NEUT % 90.8 % (42.8-82.8); PLATELET COUNT 177 K/MM3 (134-434); RBC 3.36 M/mm3 (3.60-5.2); WHITE BLOOD COUNT 6.3 K/mm3 (4.0-10.0)
[2017-12-10 08:55] LABS: ALBUMIN 3.2 g/dl (3.4-5.0); ALK PHOS 41 U/L (45-117); ANION GAP 15 MMOL/L (8-16); BILIRUBIN,TOTAL 0.3 mg/dL (0.2-1); BLOOD UREA NITROGEN 64 mg/dL (7-18); CALCIUM 8.7 mg/dL (8.5-10.1); CHLORIDE 105 mmol/L (98-107); CO2 15 mmol/L (21-32); CREATININE 3.9 mg/dL (0.55-1.3); MAGNESIUM 1.7 mg/dL (1.8-2.4); PHOSPHOROUS 4.6 mg/dL (2.5-4.9); POTASSIUM 4.3 mmol/L (3.5-5.1); SGOT/AST 10 U/L (15-37); SGPT/ALT 12 U/L (13-61); SODIUM 134 mmol/L (136-145); TOT PROT 6.7 g/dl (6.4-8.2)
[2017-12-10] MEDS ORDERED: CEFTRIAXONE 1 GM/50 ML BAG ONE (08:59)
[2017-12-10] MEDS ORDERED: ALBUTEROL SO4 2.5/IPRATROPIUM 0.5 INH SOL 3 ML VIAL.NEB. NEB ONE (08:59)
[2017-12-10 09:32] LABS: GLUCOSE,RANDOM 496 mg/dL (74-106)
[2017-12-10] MEDS: CEFTRIAXONE 1 GM in DEXTROSE 5%-WATER - 50 ML IVPB SCH (09:33)
[2017-12-10] MEDS: ALBUTEROL SO4 2.5/IPRATROPIUM 0.5 INH SOL 3 ML VIAL.NEB. NEB SCH ×3 (09:33→20:51)
[2017-12-10] MEDS: FERROUS SO4 325 MG TABLET (FP) PO SCH (09:34)
[2017-12-10] MEDS: TOLTERODINE TARTRATE 2 MG TABLET PO SCH ×2 (09:34→23:09)
[2017-12-10] MEDS: PANTOPRAZOLE 40 MG TABLET (FP) PO SCH ×2 (09:34→23:09)
[2017-12-10] MEDS: NIFEdipine E.R 60 MG TABLET (UD) PO SCH (09:34)
[2017-12-10] MEDS: BUDESONIDE/FORMETEROL FUMARATE 160/4.5 mcg INHALER IH SCH ×2 (09:34→23:45)
[2017-12-10] MEDS: ISOSORBIDE MONONITRATE 60 MG TAB.SR.24H (FP) PO SCH (09:34)
[2017-12-10] MEDS: FOLIC ACID 1 MG TABLET (FP) PO SCH (09:34)
[2017-12-10 09:59] LABS: ACTIVATED PTT > 400.0 SECONDS (25.2-36.5)
[2017-12-10] MEDS ORDERED: Insulin (LOG) Aspart 100 UNITS/ML VIAL SQ STA (10:15)
[2017-12-10] MEDS ORDERED: INSULIN (NOVOLOG) ASPART 100 UNITS/ML 10ML VIAL ONE ×2 (10:25→11:38)
--- NOTE | 2017-12-10 13:27 | PN ---
Progress Note (short form) - Note Progress Note: PULMONARY States breathing slightly improved. +nonproductive cough without wheezing. Vital Signs Period Temp Pulse Resp BP Sys/Renee Pulse Ox Last 24 Hr 98.6 F-99.0 F 82-108 16-25 133-168/58-89 2-100 Gen: tachypneic with speaking Heart: RRR Lung: decreased breath sounds at the bases Abd: soft, nontender Ext: no edema CBC, BMP 12/10/17 07:10 ABG Results ABG pH 7.42 (7.35-7.45) 12/09/17 16:35 ABG pCO2 at Pt Temp 26.6 mmHg (35-45) L D 12/09/17 16:35 ABG pO2 at Pt Temp 108.0 mmHg (70-100) H D 12/09/17 16:35 ABG HCO3 16.8 meq/L (22-26) L 12/09/17 16:35 ABG O2 Sat (Measured) 98.5 % (90-98.9) 12/09/17 16:35 ABG O2 Content 15.4 % vol (15-22) 12/09/17 16:35 ABG Base Excess -6.2 meq/l (-2-2) L 12/09/17 16:35 Active Medications Albuterol Sulfate (Ventolin 0.083% Nebulizer Soln -) 1 amp NEB Q4H PRN PRN Reason: SHORT OF BREATH/WHEEZING Albuterol/Ipratropium (Duoneb -) 1 amp NEB RQID [facility] Last Admin: 12/10/17 09:33 Dose: 1 amp Budesonide/Formoterol Fumarate (Symbicort 160/4.5mcg -) 2 puff IH BID [facility] Last Admin: 12/10/17 09:34 Dose: 2 puff Ferrous Sulfate (Feosol -) 325 mg PO DAILY [facility] Last Admin: 12/10/17 09:34 Dose: 325 mg Folic Acid (Folic Acid -) 1 mg PO DAILY [facility] Last Admin: 12/10/17 09:34 Dose: 1 mg Heparin Sodium (Porcine) (Heparin -) 3,400 unit 40 unit/kg (3400 unit) IVPUSH PRN PRN PRN Reason: For aPTT 35 to 45 seconds Heparin Sodium (Porcine) (Heparin -) 6,700 unit 80 unit/kg (6700 unit) IVPUSH PRN PRN PRN Reason: aPTT <35 seconds Hydralazine HCl (Apresoline -) 100 mg PO TID [facility] Last Admin: 12/10/17 06:39 Dose: 100 mg Ceftriaxone Sodium 1 gm/ (Dextrose) 50 mls @ 100 mls/hr IVPB DAILY [facility]; Protocol Last Admin: 12/10/17 09:33 Dose: 100 mls/hr Heparin Sodium (Porcine) 25, (000 unit/ Sodium Chloride) 500 mls @ 30.37 mls/ hr IV TITR [facility]; Protocol Last Admin: 12/09/17 17:25 Dose: 18 unit/kg/hr, 30.37 mls/hr Insulin Aspart (Novolog Vial Sliding Scale -) 1 vial SQ TIDAC [facility]; Protocol Last Admin: 12/10/17 11:36 Dose: 8 units Insulin Detemir (Levemir Vial) 20 units SQ HS [facility] Last Admin: 12/09/17 22:35 Dose: 20 unit Isosorbide Mononitrate (Imdur -) 60 mg PO DAILY [facility] Last Admin: 12/10/17 09:34 Dose: 60 mg Methylprednisolone Sodium Succinate (Solu-Medrol -) 40 mg IVPUSH Q6H-IV [facility] Last Admin: 12/10/17 09:33 Dose: 40 mg Nifedipine (Procardia Xl -) 60 mg PO DAILY [facility] Last Admin: 12/10/17 09:34 Dose: 60 mg Pantoprazole Sodium (Protonix -) 40 mg PO BID [facility] Last Admin: 12/10/17 09:34 Dose: 40 mg Tolterodine Tartrate (Detrol -) 2 mg PO BID [facility] Last Admin: 12/10/17 09:34 Dose: 2 mg A/P Acute COPD Exacerbation Acute on Chronic Diastolic Heart Failure Atrial Fibrillation Pulmonary HTN DM HTN GERD CKD - continue empiric steroids - inhaled bronchodilators - O2 to keep SpO2 >90% - rate control - continue anticoagulation - check NIF, VC to r/o diaphragmatic weakness as last PFTs without significant obstruction on spirometry, decreased lung volumes and normal diffusing capacity. Last CT chest earlier this year without evidence of interstitial lung disease, V/Q scan low probability of PE.
--- NOTE | 2017-12-10 13:35 | CONSULT ---
Consult Consult Specialty:: Endocrinology Referred by:: Dr Reilly Reason for Consultation:: Hyperglycemia - History of Present Illness Chief Complaint: SOB History of Present Illness: This is a 77 year old female with h/o hypertension, T2DM since age 48, atrial fibrillation (s/p ablation, on Coumadin), left lower extremity DVT, asthma, COPD who presented to ED with c/o SOB. Pt treated with bronchodilators and IV Solumedrol with improvement in symptoms but with increase in blood sugar to > 400. Pt takes Levemir 8 units at bedtime and Novolog 6 units TID with meals. FS at home 200s on this regimen. Denies any hypoglycemic episodes. Has nocturia x2. Denies any visual symptoms and saw ophthalmology a week ag. Denies paresthesia of feet, fevers, chest pain, palpitations, hemoptysis, falls, loss of consciousness. - History Source History Provided By: Patient, Medical Record - Past Medical History BISQUE PLACER: Yes: Peripheral Neuropathy Cardio/Vascular: Yes: AFIB, CHF, HTN, Hyperlipdemia, Other (Atrial flutter s/p ablation, PAD) Pulmonary: Yes: COPD Renal/: Yes: Renal Inusuff (stage 4), Other (Overactive Bladder) Psych: Yes: Depression Endocrine: Yes: Diabetes Mellitus (initially on oral agents, now on insulin) - Past Surgical History Past Surgical History: Yes: Colonoscopy (polyps a few years ago), Hysterectomy ( fibroids), Tubal Ligation, Upper Endoscopy (neg 1+ yrs ago) - Alcohol/Substance Use Hx Alcohol Use: No - Smoking History Smoking history: Never smoked Have you smoked in the past 12 months: No Aproximately how many cigarettes per day: 1 If you are a former smoker, when did you quit?: 2 MO AGO - Social History Usual Living Arrangement: With Child ADL: Family Assistance History of Recent Travel: No Home Medications - Allergies Allergies/Adverse Reactions: Allergies Allergy/AdvReac Type Severity Reaction Status Date / Time No Known Allergies Allergy Verified 12/09/17 12:17 - Home Medications Home Medications: Ambulatory Orders Dexlansoprazole [Dexilant] 30 mg PO DAILY #30 08/02/15 hydrALAZINE HCL [Apresoline -] 100 mg PO Q8H 01/28/17 Ferrous Sulfate 325 mg PO DAILY 02/02/17 Folic Acid 1 mg PO DAILY 12/09/17 Isosorbide Mononitrate [Isosorbide Mononitrate ER] 60 mg PO DAILY 12/09/17 Nifedipine [Nifedipine ER] 60 mg PO DAILY 12/09/17 Pantoprazole Sodium 40 mg PO BID 12/09/17 Tolterodine Tartrate 2 mg PO BID 12/09/17 Umeclidinium Brm/Vilanterol Tr [Anoro Ellipta 62.5-25 Mcg INH] 1 puff IH DAILY 12/09/17 Albuterol 2.5/Ipratropium 0.5 [Duoneb -] 1 amp NEB RQID amp 12/11/17 Budesonide/Formeterol Fumarate [SYMBICORT 160/4.5mcg -] 2 puff IH BID #1 inhaler 12/11/17 Insulin (Levemir) [Levemir Vial] 24 units SQ HS units 12/11/17 Sodium Bicarbonate - 650 mg PO BID #40 tablet 12/11/17 Warfarin Sodium [Coumadin] 5 mg PO DAILY 10 Days #10 tablet 12/11/17 predniSONE [Deltasone -] See Taper PO ASDIR 6 Days #17 tab 12/11/17 Family Disease History - Family Disease History Family Disease History: Diabetes: Grandparent, Mother, Sister (lung cancer), [place] : Sister Review of Systems - Review of Systems Constitutional: reports: Malaise Eyes: reports: No Symptoms HENT: reports: No Symptoms Neck: reports: No Symptoms Cardiovascular: reports: Shortness of Breath Respiratory: reports: SOB Gastrointestinal: reports: No Symptoms Genitourinary: reports: Other (Nocturia x2) Musculoskeletal: reports: No Symptoms Integumentary: reports: No Symptoms Neurological: reports: No Symptoms Endocrine: reports: No Symptoms Hematology/Lymphatic: reports: No Symptoms Physical Exam Vital Signs: Vital Signs Temperature 98.8 F 12/10/17 11:24 Pulse Rate 99 H 12/10/17 11:24 Respiratory Rate 23 H 12/10/17 11:24 Blood Pressure 154/63 12/10/17 11:24 O2 Sat by Pulse Oximetry (%) 98 12/10/17 11:24 Constitutional: Yes: No Distress, Calm Eyes: Yes: Conjunctiva Clear, EOM Intact HENT: Yes: Atraumatic, Normocephalic Neck: Yes: Supple, Trachea Midline Cardiovascular: Yes: Regular Rate and Rhythm Respiratory: Yes: Regular, Other (Basal crackles) ...Rectal Exam: Yes: WNL Extremities: Yes: WNL Edema: No Neurological: Yes: Alert, Oriented Labs: CBC, BMP 12/10/17 07:10 Imaging - Results X-ray: Report Reviewed Assessment/Plan A/P T2DM uncontrolled Acute COPD Exacerbation Acute on Chronic Diastolic Heart Failure Atrial Fibrillation Pulmonary HTN HTN GERD CKD BGM QACHS Increase Levemir 24 Novolog SS coverage IV Steroids Bronchodilators O2 supplement Will F/u
[2017-12-10 14:53] LABS: ANION GAP 16 MMOL/L (8-16); BLOOD UREA NITROGEN 65 mg/dL (7-18); CALCIUM 8.7 mg/dL (8.5-10.1); CHLORIDE 108 mmol/L (98-107); CO2 16 mmol/L (21-32); GLUCOSE,RANDOM 168 mg/dL (74-106); POTASSIUM 3.5 mmol/L (3.5-5.1); SODIUM 140 mmol/L (136-145)
--- NOTE | 2017-12-10 15:00 | EKG ---
Test Reason : Blood Pressure : / mmHG Vent. Rate : 101 BPM Atrial Rate : 101 BPM P-R Int : 170 ms QRS Dur : 086 ms QT Int : 366 ms P-R-T Axes : 063 -31 076 degrees QTc Int : 474 ms SINUS TACHYCARDIA LEFT AXIS DEVIATION POSSIBLE ANTEROSEPTAL INFARCT (CITED ON OR BEFORE 26-SEP-2017) ABNORMAL ECG WHEN COMPARED WITH ECG OF 09-DEC-2017 12:30, PREMATURE ATRIAL COMPLEXES ARE NO LONGER PRESENT Confirmed by DAVID MUELLER MD ([id number]) on 12/10/2017 3:00:17 PM Referred By: Confirmed By:DAVID MUELLER MD
[2017-12-10] MEDS ORDERED: HEPARIN - 25,000 UNIT in SODIUM CHLORIDE 495 ML IV SCH ×3 (15:09→17:22)
[2017-12-10] MEDS ORDERED: INSULIN (LEVEMIR) 100 UNITS/ML UNITS SQ SCH (15:30)
--- NOTE | 2017-12-10 16:12 | CONSULT ---
Consult - text type - Consultation Consultation Note: Renal Consult for CKD stage 5 This is a 77 year old woman who follows with me for her CKD with history fo CKD stage 5 (pt does not wish to pursue dialysis), COPD, Former smoker (quit last year), Hypertension, DM, CHF who presented with sob and admitted for CHF/COPD exacerbation. Pt was seen in the office earlier this week and Cr was 3.89. Denies any LE swelling, chest pain, hemoptysis. Making urine w/o difficulty. No flank pain, fever or chills. S/p long admission at [facility] for CHF/COPD work up and management. PMhx: as above Allergies: No NKDA Family Hx: NC Social Hx: former smoker ROS: as per HPI, all other pertinent ros negative Home Medications Medication Instructions Recorded Dexlansoprazole [Dexilant] 30 mg PO DAILY #30 08/02/15 Insulin (Levemir) [Levemir Flexpen 20 units SQ HS #1 vial 06/12/16 -] hydrALAZINE HCL [Apresoline -] 100 mg PO Q8H 01/28/17 Ferrous Sulfate 325 mg PO DAILY 02/02/17 Folic Acid 1 mg PO DAILY 12/09/17 Furosemide [Lasix] 40 mg PO DAILY 12/09/17 Isosorbide Mononitrate [Isosorbide 60 mg PO DAILY 12/09/17 Mononitrate ER] Nifedipine [Nifedipine ER] 60 mg PO DAILY 12/09/17 Pantoprazole Sodium 40 mg PO BID 12/09/17 Tolterodine Tartrate 2 mg PO BID 12/09/17 Umeclidinium Brm/Vilanterol Tr 1 puff IH DAILY 12/09/17 [Anoro Ellipta 62.5-25 Mcg INH] Warfarin Na [Coumadin] 6 mg PO DAILY@1800 12/09/17 Vital Signs Temperature 98.6 F 12/10/17 13:17 Pulse Rate 96 H 12/10/17 13:17 Respiratory Rate 20 12/10/17 13:17 Blood Pressure 148/56 L 12/10/17 13:17 O2 Sat by Pulse Oximetry (%) 97 12/10/17 13:17 Intake & Output 12/07/17 12/08/17 12/09/17 12/10/17 23:59 23:59 23:59 23:59 Weight 84.368 kg 84.368 kg NAD awake and alert RRR, No M/R CTA, no wheeze soft NT/ND no LE edema, clubbing or cyanosis no bladder distension CBC, BMP 12/10/17 12:40 Current Medications Albuterol Sulfate (Ventolin 0.083% Nebulizer Soln -) 1 amp NEB Q4H PRN PRN Reason: SHORT OF BREATH/WHEEZING Albuterol/Ipratropium (Duoneb -) 1 amp NEB RQID [facility] Last Admin: 12/10/17 09:33 Dose: 1 amp Budesonide/Formoterol Fumarate (Symbicort 160/4.5mcg -) 2 puff IH BID [facility] Last Admin: 12/10/17 09:34 Dose: 2 puff Ferrous Sulfate (Feosol -) 325 mg PO DAILY [facility] Last Admin: 12/10/17 09:34 Dose: 325 mg Folic Acid (Folic Acid -) 1 mg PO DAILY [facility] Last Admin: 12/10/17 09:34 Dose: 1 mg Heparin Sodium (Porcine) (Heparin -) 3,400 unit 40 unit/kg (3400 unit) IVPUSH PRN PRN PRN Reason: For aPTT 35 to 45 seconds Heparin Sodium (Porcine) (Heparin -) 6,700 unit 80 unit/kg (6700 unit) IVPUSH PRN PRN PRN Reason: aPTT <35 seconds Hydralazine HCl (Apresoline -) 100 mg PO TID [facility] Last Admin: 12/10/17 15:36 Dose: 100 mg Ceftriaxone Sodium 1 gm/ (Dextrose) 50 mls @ 100 mls/hr IVPB DAILY [facility]; Protocol Last Admin: 12/10/17 09:33 Dose: 100 mls/hr Heparin Sodium (Porcine) 25, (000 unit/ Sodium Chloride) 500 mls @ 20 mls/hr IV TITR [facility]; Protocol Insulin Aspart (Novolog Vial Sliding Scale -) 1 vial SQ HS [facility]; Protocol Insulin Aspart (Novolog Vial Sliding Scale -) 1 vial SQ TIDAC [facility]; Protocol Insulin Detemir (Levemir Vial) 24 units SQ HS [facility] Isosorbide Mononitrate (Imdur -) 60 mg PO DAILY [facility] Last Admin: 12/10/17 09:34 Dose: 60 mg Methylprednisolone Sodium Succinate (Solu-Medrol -) 40 mg IVPUSH Q6H-IV [facility] Last Admin: 12/10/17 15:37 Dose: 40 mg Nifedipine (Procardia Xl -) 60 mg PO DAILY [facility] Last Admin: 12/10/17 09:34 Dose: 60 mg Pantoprazole Sodium (Protonix -) 40 mg PO BID [facility] Last Admin: 12/10/17 09:34 Dose: 40 mg Tolterodine Tartrate (Detrol -) 2 mg PO BID [facility] Last Admin: 12/10/17 09:34 Dose: 2 mg 77 year old woman who follows with me for her CKD with history fo CKD stage 5 ( pt does not wish to pursue dialysis), COPD, Former smoker (quit last year), Hypertension, DM, CHF who presented with sob and admitted for CHF/COPD exacerbation. 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
--- NOTE | 2017-12-10 16:50 | PN ---
Progress Note, Physician Chief Complaint: Still SOB History of Present Illness: This is a 77 year old female with a PMH of hypertension, diabetes, atrial fibrillation (s/p ablation, on Coumadin), left lower extremity DVT, asthma, and COPD. At baseline she has 1/2 JOHNSON. She now presents with SOB at rest. She is S/ P a hospitalization at [facility] followed by Nathanael Petersen for a similar complaint. Of note, her INR's have been subtherapeutic. BNP is 692.6 CXR is unremarkable troponin negative - Current Medication List Current Medications: Active Medications Albuterol Sulfate (Ventolin 0.083% Nebulizer Soln -) 1 amp NEB Q4H PRN PRN Reason: SHORT OF BREATH/WHEEZING Albuterol/Ipratropium (Duoneb -) 1 amp NEB RQID [facility] Last Admin: 12/10/17 16:20 Dose: 1 amp Budesonide/Formoterol Fumarate (Symbicort 160/4.5mcg -) 2 puff IH BID [facility] Last Admin: 12/10/17 09:34 Dose: 2 puff Ferrous Sulfate (Feosol -) 325 mg PO DAILY [facility] Last Admin: 12/10/17 09:34 Dose: 325 mg Folic Acid (Folic Acid -) 1 mg PO DAILY [facility] Last Admin: 12/10/17 09:34 Dose: 1 mg Heparin Sodium (Porcine) (Heparin -) 3,400 unit 40 unit/kg (3400 unit) IVPUSH PRN PRN PRN Reason: For aPTT 35 to 45 seconds Heparin Sodium (Porcine) (Heparin -) 6,700 unit 80 unit/kg (6700 unit) IVPUSH PRN PRN PRN Reason: aPTT <35 seconds Hydralazine HCl (Apresoline -) 100 mg PO TID [facility] Last Admin: 12/10/17 15:36 Dose: 100 mg Ceftriaxone Sodium 1 gm/ (Dextrose) 50 mls @ 100 mls/hr IVPB DAILY [facility]; Protocol Last Admin: 12/10/17 09:33 Dose: 100 mls/hr Heparin Sodium (Porcine) 25, (000 unit/ Sodium Chloride) 500 mls @ 20 mls/hr IV TITR ERMA; Protocol Insulin Aspart (Novolog Vial Sliding Scale -) 1 vial SQ HS ERMA; Protocol Insulin Aspart (Novolog Vial Sliding Scale -) 1 vial SQ TIDAC [facility]; Protocol Insulin Detemir (Levemir Vial) [address] [facility] Isosorbide Mononitrate (Imdur -) 60 mg PO DAILY [facility] Last Admin: 12/10/17 09:34 Dose: 60 mg Methylprednisolone Sodium Succinate (Solu-Medrol -) 40 mg IVPUSH Q6H-IV [facility] Last Admin: 12/10/17 15:37 Dose: 40 mg Nifedipine (Procardia Xl -) 60 mg PO DAILY [facility] Last Admin: 12/10/17 09:34 Dose: 60 mg Pantoprazole Sodium (Protonix -) 40 mg PO BID [facility] Last Admin: 12/10/17 09:34 Dose: 40 mg Sodium Bicarbonate (Sodium Bicarbonate -) 650 mg PO BID [facility] Tolterodine Tartrate (Detrol -) 2 mg PO BID [facility] Last Admin: 12/10/17 09:34 Dose: 2 mg - Objective Vital Signs: Vital Signs Temperature 98.6 F 12/10/17 13:17 Pulse Rate 96 H 12/10/17 13:17 Respiratory Rate 20 12/10/17 13:17 Blood Pressure 148/56 L 12/10/17 13:17 O2 Sat by Pulse Oximetry (%) 97 12/10/17 13:17 Constitutional: Yes: No Distress HENT: Yes: WNL Neck: Yes: WNL Cardiovascular: Yes: WNL, Regular Rate and Rhythm (NL S1S2 No MRHG) Respiratory: Yes: Diminished (minimal wheeze) Gastrointestinal: Yes: Soft Labs: CBC, BMP 12/10/17 12:40 INR, PTT INR 1.60 (0.83-1.09) H 12/10/17 07:10 Assessment/Plan 77 year old female with a PMH of hypertension, diabetes, atrial fibrillation (s/ p ablation, on Coumadin), left lower extremity DVT, asthma, and COPD. At baseline she has 1/2 JOHNSON. She now presents with SOB at rest. She is S/P a hospitalization at [facility] followed by Nathanael Petersen for a similar complaint. Of note , her INR's have been subtherapeutic. BNP is 692.6 CXR is unremarkable troponin X1 negative Her dyspnea is most likely a combination of COPD and diastolic CHF Dyspnea Agree with ruling out a PE with a V/Q scan Would also obtain an echocardiogram Daughter to provide records from [facility] BUN 65 Cr 3.9 Lasix held Continue Hydralazine 100 mg Q8 h/Imdur 60 mg PO daily HTN Continue Nifedipine XL 60 mg PO PO daily AFIB Continue coumadin to an INR of 2 - 3 Presently in NSR
--- NOTE | 2017-12-10 16:53 | PN ---
Physical Exam: SUBJECTIVE: Patient seen and examined at bedside this morning. She endorses her shortness of breath is unchanged from yesterday. Denies fevers, chills, palpitations, abdominal pain, nausea, vomiting. OBJECTIVE: Vital Signs Temperature 98.6 F 12/10/17 13:17 Pulse Rate 96 H 12/10/17 13:17 Respiratory Rate 20 12/10/17 13:17 Blood Pressure 148/56 L 12/10/17 13:17 O2 Sat by Pulse Oximetry (%) 97 12/10/17 13:17 GENERAL: Awake, alert, and fully oriented, in no some respiratory distress. HEAD: Normal with no signs of trauma. EYES: Pupils equal, round and reactive to light, extraocular movements intact without nystagmus b/l. Sclera anicteric, conjunctiva clear b/l. EARS, NOSE, THROAT: Oropharynx clear without exudates, mild erythema. Moist mucous membranes. NECK: Normal range of motion, supple without lymphadenopathy. No JVD appreciated. LUNGS: Tachypnic. Good inspiratory effort b/l. Inspiratory effort poor within b/ l lower lung lobes with faint crackles auscultated. HEART: Irregular rate and rhythm. Normal S1 and S2 without murmur, rub or gallop. ABDOMEN: Soft, nontender, not distended. Normoactive bowel sounds X4 quadrants. No guarding, no rebound tenderness. No hepatomegaly appreciated. MUSCULOSKELETAL: Normal range of motion at all joints. No bony deformities or tenderness. Strength 4/5 b/l upper and lower extremities. UPPER EXTREMITIES: 2+ radial pulses b/l, warm, well-perfused. No cyanosis noted. LOWER EXTREMITIES: 2+ dorsalis pulses b/l, warm, well-perfused. No calf tenderness b/l. Trace peripheral lower extremity pitting edema b/l. NEUROLOGICAL: Cranial nerves II-XII intact. Normal speech. No gross focal deficits. PSYCHIATRIC: Cooperative. Appropriate mood and affect upon my encounter today. SKIN: Warm, dry, no rashes or lesions noted. Laboratory Last Values WBC 6.3 K/mm3 (4.0-10.0) 12/10/17 07:10 RBC 3.36 M/mm3 (3.60-5.2) L 12/10/17 07:10 Hgb 10.4 GM/dL (10.7-15.3) L 12/10/17 07:10 Hct 32.3 % (32.4-45.2) L 12/10/17 07:10 MCV 96.0 fl (80-96) 12/10/17 07:10 MCH 30.9 pg (25.7-33.7) 12/10/17 07:10 MCHC 32.2 g/dl (32.0-36.0) 12/10/17 07:10 RDW 16.0 % (11.6-15.6) H 12/10/17 07:10 Plt Count 177 K/MM3 (134-434) 12/10/17 07:10 MPV 9.8 fl (7.5-11.1) 12/10/17 07:10 Absolute Neuts (auto) 5.7 K/mm3 (1.5-8.0) 12/10/17 07:10 Neutrophils % 90.8 % (42.8-82.8) H 12/10/17 07:10 Neutrophils % (Manual) 94.0 % (42.8-82.8) H 12/10/17 02:40 Lymphocytes % 7.6 % (8-40) L D 12/10/17 07:10 Lymphocytes % (Manual) 4.0 % (8-40) L 12/10/17 02:40 Monocytes % 1.3 % (3.8-10.2) L D 12/10/17 07:10 Monocytes % (Manual) 2 % (3.8-10.2) L 12/10/17 02:40 Eosinophils % 0.0 % (0-4.5) D 12/10/17 07:10 Basophils % 0.3 % (0-2.0) 12/10/17 07:10 Nucleated RBC % 0 % (0-0) 12/10/17 07:10 PT with INR 19.00 SEC (9.7-13.0) H 12/10/17 07:10 INR 1.60 (0.83-1.09) H 12/10/17 07:10 PTT (Actin FS) > 400.0 SECONDS (25.2-36.5) H 12/10/17 11:32 Anticoagulation Therapy No Result Required. 12/09/17 16:35 Puncture Site Left radial 12/09/17 16:35 ABG pH 7.42 (7.35-7.45) 12/09/17 16:35 ABG pCO2 at Pt Temp 26.6 mmHg (35-45) L D 12/09/17 16:35 ABG pO2 at Pt Temp 108.0 mmHg (70-100) H D 12/09/17 16:35 ABG HCO3 16.8 meq/L (22-26) L 12/09/17 16:35 ABG O2 Sat (Measured) 98.5 % (90-98.9) 12/09/17 16:35 ABG O2 Content 15.4 % vol (15-22) 12/09/17 16:35 ABG Base Excess -6.2 meq/l (-2-2) L 12/09/17 16:35 Cr Test Positive 12/09/17 16:35 Carboxyhemoglobin 1.4 gm% (0.5-2.0) 12/09/17 16:35 Methemoglobin 0.3 % (0.4-1.5) L 12/09/17 16:35 O2 Delivery Device Nasal o2 12/09/17 16:35 Oxygen Flow Rate 2l 12/09/17 16:35 Vent Mode No Result Required. 12/09/17 16:35 Vent Rate No Result Required. 12/09/17 16:35 Mechanical Rate No Result Required. 12/09/17 16:35 Pressure Support Vent No Result Required. 12/09/17 16:35 Sodium 140 mmol/L (136-145) 12/10/17 12:40 Potassium 3.5 mmol/L (3.5-5.1) 12/10/17 12:40 Chloride 108 mmol/L (98-107) H 12/10/17 12:40 Carbon Dioxide 16 mmol/L (21-32) L 12/10/17 12:40 Anion Gap 16 MMOL/L (8-16) 12/10/17 12:40 BUN 65 mg/dL (7-18) H 12/10/17 12:40 Creatinine 4.0 mg/dL (0.55-1.3) H 12/10/17 12:40 Creat Clearance w eGFR 10.80 (>60) 12/10/17 12:40 POC Glucometer 319.52550 UNITS (80-120) 12/10/17 11:33 Random Glucose 168 mg/dL (74-106) H 12/10/17 12:40 Calcium 8.7 mg/dL (8.5-10.1) 12/10/17 12:40 Phosphorus 4.6 mg/dL (2.5-4.9) 12/10/17 07:10 Magnesium 1.7 mg/dL (1.8-2.4) L 12/10/17 07:10 Total Bilirubin 0.3 mg/dL (0.2-1) 12/10/17 07:10 AST 10 U/L (15-37) L 12/10/17 07:10 ALT 12 U/L (13-61) L 12/10/17 07:10 Alkaline Phosphatase 41 U/L (45-117) L 12/10/17 07:10 Creatine Kinase 112 IU/L (26-192) 12/09/17 12:40 Troponin I 0.02 ng/ml (0.00-0.05) 12/10/17 02:40 B-Natriuretic Peptide 629.6 pg/ml (5-450) H 12/09/17 12:40 Total Protein 6.7 g/dl (6.4-8.2) 12/10/17 07:10 Albumin 3.2 g/dl (3.4-5.0) L 12/10/17 07:10 Active Medications Generic Name Dose Route Start Last Admin Trade Name Freq PRN Reason Stop Dose Admin Albuterol Sulfate 1 amp 12/09/17 16:13 Ventolin 0.083% Nebulizer Soln - NEB Q4H PRN SHORT OF BREATH/WHEEZING Albuterol/Ipratropium 1 amp 12/09/17 16:00 12/10/17 16:20 Duoneb - NEB 1 amp RQID [facility]MA Administration Budesonide/Formoterol Fumarate 2 puff 12/09/17 22:00 12/10/17 09:34 Symbicort 160/4.5mcg - IH 2 puff BID [facility] Administration Ferrous Sulfate 325 mg 12/10/17 10:00 12/10/17 09:34 Feosol - PO 325 mg DAILY [facility] Administration Folic Acid 1 mg 12/10/17 10:00 12/10/17 09:34 Folic Acid - PO 1 mg DAILY [facility] Administration Heparin Sodium (Porcine) 3,400 unit 12/09/17 15:30 Heparin - 40 unit/kg (3400 unit) IVPUSH PRN PRN For aPTT 35 to 45 seconds Heparin Sodium (Porcine) 6,700 unit 12/09/17 15:30 Heparin - 80 unit/kg (6700 unit) IVPUSH PRN PRN aPTT <35 seconds Hydralazine HCl 100 mg 12/09/17 16:00 12/10/17 15:36 Apresoline - PO 100 mg TID [facility] Administration Ceftriaxone Sodium 1 gm/ 50 mls @ 100 mls/hr 12/09/17 16:00 12/10/17 09:33 Dextrose IVPB 100 mls/hr DAILY [facility] Administration Protocol Heparin Sodium (Porcine) 25, 500 mls @ 20 mls/hr 12/10/17 15:55 000 unit/ Sodium Chloride IV TITR [facility] Protocol 1,000 UNIT/HR Insulin Aspart 1 vial 12/10/17 22:00 Novolog Vial Sliding Scale - SQ HS [facility] Protocol Insulin Aspart 1 vial 12/10/17 15:31 Novolog Vial Sliding Scale - SQ TIDAC [facility] Protocol Insulin Detemir 24 units 12/10/17 15:30 Levemir Vial SQ HS [facility] Isosorbide Mononitrate 60 mg 12/10/17 10:00 12/10/17 09:34 Imdur - PO 60 mg DAILY [facility] Administration Methylprednisolone Sodium Succinate 40 mg 12/09/17 15:45 12/10/17 15:37 Solu-Medrol - IVPUSH 40 mg Q6H-IV [facility] Administration Nifedipine 60 mg 12/10/17 10:00 12/10/17 09:34 Procardia Xl - PO 60 mg DAILY [facility] Administration Pantoprazole Sodium 40 mg 12/09/17 22:00 12/10/17 09:34 Protonix - PO 40 mg BID [facility] Administration Sodium Bicarbonate 650 mg 12/10/17 16:12 Sodium Bicarbonate - PO BID [facility] Tolterodine Tartrate 2 mg 12/09/17 22:00 12/10/17 09:34 Detrol - PO 2 mg BID [facility] Administration Chest Xray: No acute pulmonary pathology noted. EKG: Sinus rhythm with premature atrial complexes, left axis deviation, old anteroseptal infarct previously noted 09/26/2017. ASSESSMENT/PLAN: Patient is a 77 year old female with history significant for hypertension, diabetes, atrial fibrillation (s/p ablation, on Coumadin), left lower extremity DVT, asthma, COPD presents with complaint of shortness of breath that began this morning. Acute respiratory failure -Shortness of breath may be secondary to COPD, asthma exacerbation vs. pulmonary embolism as her INR was subtherapeutic at admission -Unable to perform CTA to rule out pulmonary embolism due to acute on chronic kidney disease -Pulmonary consult (Dr. Fletcher) appreciated. -Heparin drip, weight based. PTT currently 68.9. Will repeat Q6H and titrate following protocol. -Solu-medrol 40mg IV Q6H -Duonebs 1amp QID -Ventolin nebulizer 1 amp Q4H PRN -Symbicort 2 puffs IH BID -Rocephin 1 gram IV daily -ABG results noted. Afib -Cardiology consult (Dr. Suggs) appreciated. -INR subtherapeutic at 1.60 today -Coumadin at 7.5mg tonight -F/U INR -F/U cardiac ECHO Diabetes Mellitus -Endocrinology (Dr. Gomez) appreciated -Levemir 24 units SQ HS -ISS TIDAC, adjusted today -ISS HS -BGM ACHS Hypertension -Hydralazine 100mg PO TID -Imdur 60mg PO daily -Nifedipine 60mg PO daily Acute on chronic kidney disease -Creatinine today 3.9, baseline from prior admissions around 3.0 -Nephrology consult (Dr. To) appreciated. Begin Sodium bicarbonate 650mg PO BID Anemia -Reinstate ferrous sulfate 325mg PO daily -Reinstate folic acid 1mg PO daily FEN -No IV fluids indicated at this time -Will follow CMP -Renal diet, diabetic and sodium controlled Prophylaxis -Heparin drip -Coumadin 7.5mg PO tonight -Protonix 40mg PO BID Disposition -Continue care in telemetry Visit type - Emergency Visit Emergency Visit: Yes ED Registration Date: 12/09/17 Care time: The patient presented to the Emergency Department on the above date and was hospitalized for further evaluation of their emergent condition. - New Patient This patient is new to me today: No - Critical Care Critical Care patient: No - Discharge Referral Referred to [facility] No
[2017-12-10 16:55] LABS: BASO % 0.1 % (0-2.0); HEMATOCRIT 30.8 % (32.4-45.2); HEMOGLOBIN 10.1 GM/dL (10.7-15.3); LYMPH % 11.3 % (8-40); MCH 31.2 pg (25.7-33.7); MEAN CELL VOLUME 94.7 fl (80-96); MEAN PLT VOLUME 10.2 fl (7.5-11.1); MONO % 7.5 % (3.8-10.2); NEUT % 81.1 % (42.8-82.8); PLATELET COUNT 197 K/MM3 (134-434); RBC 3.25 M/mm3 (3.60-5.2); WHITE BLOOD COUNT 10.2 K/mm3 (4.0-10.0)
[2017-12-10] MEDS: SODIUM BICARBONATE 650 MG TABLET PO SCH ×2 (17:56→23:10)
[2017-12-10] MEDS ORDERED: WARFARIN NA 7.5 MG TABLET (FP) PO ONE (18:00)
[2017-12-10 21:19] LABS: BASO % 0.1 % (0-2.0); HEMATOCRIT 31.3 % (32.4-45.2); HEMOGLOBIN 10.2 GM/dL (10.7-15.3); LYMPH % 6.3 % (8-40); MCHC 32.7 g/dl (32.0-36.0); MEAN CELL VOLUME 94.8 fl (80-96); MEAN PLT VOLUME 10.2 fl (7.5-11.1); MONO % 2.2 % (3.8-10.2); NEUT % 91.4 % (42.8-82.8); PLATELET COUNT 197 K/MM3 (134-434); RDW 16.1 % (11.6-15.6)
--- NOTE | 2017-12-10 21:33 | PN ---
Teaching Attending Note Name of Resident: Ibrahima Reilly ATTENDING PHYSICIAN STATEMENT I saw and evaluated the patient. I reviewed the resident's note and discussed the case with the resident. I agree with the resident's findings and plan as documented. SUBJECTIVE: Patient continues to be short of breath. No nausea or vomiting. OBJECTIVE: Vital Signs Temperature 98.4 F 12/10/17 17:00 Pulse Rate 99 H 12/10/17 17:00 Respiratory Rate 20 12/10/17 17:00 Blood Pressure 157/60 12/10/17 17:00 O2 Sat by Pulse Oximetry (%) 97 12/10/17 13:17 GENERAL: Awake, alert, and fully oriented, in no some respiratory distress. HEAD: Normal with no signs of trauma. EYES: Pupils equal, round and reactive to light, extraocular movements intact without nystagmus b/l. Sclera anicteric, conjunctiva clear b/l. EARS, NOSE, THROAT: Oropharynx clear without exudates, mild erythema. Moist mucous membranes. NECK: supple , no lymphadenopathy. No JVD LUNGS: Tachypnic. decreased air entery BL . HEART: Irregular rate and rhythm. Normal S1 and S2 , ANDREA 2/6 ,no rub or gallop. ABDOMEN: Soft, nontender, not distended. BS positive, guarding, no rebound tenderness. EXTREMITIES: 2+ dorsalis pulses b/l, warm, well-perfused. No calf tenderness b/ l. Trace edema . NEUROLOGICAL: Cranial nerves II-XII intact. Normal speech. No gross focal deficits. PSYCHIATRIC: Cooperative. Appropriate mood and affect upon my encounter today. SKIN: Warm, dry, no rashes or lesions noted. CBCD WBC 11.0 K/mm3 (4.0-10.0) H 12/10/17 20:00 RBC 3.30 M/mm3 (3.60-5.2) L 12/10/17 20:00 Hgb 10.2 GM/dL (10.7-15.3) L 12/10/17 20:00 Hct 31.3 % (32.4-45.2) L 12/10/17 20:00 MCV 94.8 fl (80-96) 12/10/17 20:00 MCHC 32.7 g/dl (32.0-36.0) 12/10/17 20:00 RDW 16.1 % (11.6-15.6) H 12/10/17 20:00 Plt Count 197 K/MM3 (134-434) 12/10/17 20:00 MPV 10.2 fl (7.5-11.1) 12/10/17 20:00 CMP Sodium 140 mmol/L (136-145) 12/10/17 12:40 Potassium 3.5 mmol/L (3.5-5.1) 12/10/17 12:40 Chloride 108 mmol/L (98-107) H 12/10/17 12:40 Carbon Dioxide 16 mmol/L (21-32) L 12/10/17 12:40 Anion Gap 16 MMOL/L (8-16) 12/10/17 12:40 BUN 65 mg/dL (7-18) H 12/10/17 12:40 Creatinine 4.0 mg/dL (0.55-1.3) H 12/10/17 12:40 Creat Clearance w eGFR 10.80 (>60) 12/10/17 12:40 Random Glucose 168 mg/dL (74-106) H 12/10/17 12:40 Calcium 8.7 mg/dL (8.5-10.1) 12/10/17 12:40 Total Bilirubin 0.3 mg/dL (0.2-1) 12/10/17 07:10 AST 10 U/L (15-37) L 12/10/17 07:10 ALT 12 U/L (13-61) L 12/10/17 07:10 Alkaline Phosphatase 41 U/L (45-117) L 12/10/17 07:10 Total Protein 6.7 g/dl (6.4-8.2) 12/10/17 07:10 Albumin 3.2 g/dl (3.4-5.0) L 12/10/17 07:10 CARDIAC ENZYMES Creatine Kinase 112 IU/L (26-192) 12/09/17 12:40 Troponin I 0.02 ng/ml (0.00-0.05) 12/10/17 02:40 Home Medications Medication Instructions Recorded Dexlansoprazole [Dexilant] 30 mg PO DAILY #30 08/02/15 Insulin (Levemir) [Levemir Flexpen 20 units SQ HS #1 vial 06/12/16 -] hydrALAZINE HCL [Apresoline -] 100 mg PO Q8H 01/28/17 Ferrous Sulfate 325 mg PO DAILY 02/02/17 Folic Acid 1 mg PO DAILY 12/09/17 Furosemide [Lasix] 40 mg PO DAILY 12/09/17 Isosorbide Mononitrate [Isosorbide 60 mg PO DAILY 12/09/17 Mononitrate ER] Nifedipine [Nifedipine ER] 60 mg PO DAILY 12/09/17 Pantoprazole Sodium 40 mg PO BID 12/09/17 Tolterodine Tartrate 2 mg PO BID 12/09/17 Umeclidinium Brm/Vilanterol Tr 1 puff IH DAILY 12/09/17 [Anoro Ellipta 62.5-25 Mcg INH] Warfarin Na [Coumadin] 6 mg PO DAILY@1800 12/09/17 Current Medications Generic Name Dose Route Start Last Admin Trade Name Freq PRN Reason Stop Dose Admin Albuterol Sulfate 1 amp 12/09/17 16:13 Ventolin 0.083% Nebulizer Soln - NEB Q4H PRN SHORT OF BREATH/WHEEZING Albuterol/Ipratropium 1 amp 12/09/17 16:00 12/10/17 20:51 Duoneb - NEB 1 amp RQID [facility] Administration Budesonide/Formoterol Fumarate 2 puff 12/09/17 22:00 12/10/17 09:34 Symbicort 160/4.5mcg - IH 2 puff BID [facility] Administration Ferrous Sulfate 325 mg 12/10/17 10:00 12/10/17 09:34 Feosol - PO 325 mg DAILY [facility] Administration Folic Acid 1 mg 12/10/17 10:00 12/10/17 09:34 Folic Acid - PO 1 mg DAILY [facility] Administration Heparin Sodium (Porcine) 3,400 unit 12/09/17 15:30 Heparin - 40 unit/kg (3400 unit) IVPUSH PRN PRN For aPTT 35 to 45 seconds Heparin Sodium (Porcine) 6,700 unit 12/09/17 15:30 Heparin - 80 unit/kg (6700 unit) IVPUSH PRN PRN aPTT <35 seconds Hydralazine HCl 100 mg 12/09/17 16:00 12/10/17 15:36 Apresoline - PO 100 mg TID [facility] Administration Ceftriaxone Sodium 1 gm/ 50 mls @ 100 mls/hr 12/09/17 16:00 12/10/17 09:33 Dextrose IVPB 100 mls/hr DAILY [facility] Administration Protocol Heparin Sodium (Porcine) 25, 500 mls @ 20 mls/hr 12/10/17 17:22 12/10/17 17: 26 000 unit/ Sodium Chloride IV 1,000 unit/hr TITR ERMA 20 mls/hr Administration Protocol 1,000 UNIT/HR Insulin Aspart 1 vial 12/10/17 22:00 Novolog Vial Sliding Scale - SQ HS [facility] Protocol Insulin Aspart 1 vial 12/10/17 15:31 12/10/17 17:53 Novolog Vial Sliding Scale - SQ Not Given TIDAC [facility] Protocol Insulin Detemir 24 units 12/10/17 15:30 Levemir Vial SQ HS ER[facility] Isosorbide Mononitrate 60 mg 12/10/17 10:00 12/10/17 09:34 Imdur - PO 60 mg DAILY [facility] Administration Methylprednisolone Sodium Succinate 40 mg 12/09/17 15:45 12/10/17 15:37 Solu-Medrol - IVPUSH 40 mg Q6H-IV [facility] Administration Nifedipine 60 mg 12/10/17 10:00 12/10/17 09:34 Procardia Xl - PO 60 mg DAILY [facility] Administration Pantoprazole Sodium 40 mg 12/09/17 22:00 12/10/17 09:34 Protonix - PO 40 mg BID [facility] Administration Sodium Bicarbonate 650 mg 12/10/17 16:12 12/10/17 17:56 Sodium Bicarbonate - PO 650 mg BID ER[facility] Administration Tolterodine Tartrate 2 mg 12/09/17 22:00 12/10/17 09:34 Detrol - PO 2 mg BID ERMA Administration Laboratory Tests 12/09/17 12/10/17 12:40 07:10 INR 1.44 H 1.60 H CXR: No acute pathology ASSESSMENT AND PLAN: Patient is a 77 year old female with history significant for HTN, diabetes, atrial fibrillation (s/p ablation, on Coumadin), left lower extremity DVT, asthma, COPD presents with complaint of shortness of breath which is worse today , with Labored breathing. # Acute SOB with Hx of DVT on subtherapeutic INR , continue coumadin with heparin drip, cannot r/o PE, patient has a ARF, cr. of 3.7 , willl continue Heparin drip. # ARF ,3.7-->4.0 today , will keep monitoring , avoid nephrotoxic drugs. Nephro on the case, IVF continue. # COPD exacerbation with element of anxiety , SOlumedrol , oxygen, Neb. treatments. DVT Px: Heparin, coumadin
[2017-12-10] MEDS ORDERED: INSULIN SLIDING SCALE (NOVOLOG) 1 VIAL SQ SCH (22:00)
[2017-12-10] MEDS ORDERED: PT OWN MED DRAWER 7, Y5N ONE (22:18)
[2017-12-10 22:51] LABS: ANISOCYTOSIS 1+; MACROCYTOSIS 1+; PLATELET ESTIMATE ADEQUATE
[2017-12-11] MEDS: methylPREDNISolone NA SUCC 40 MG/1 ML VIAL IVPUSH SCH ×2 (03:00→09:35)
[2017-12-11] MEDS: hydrALAZINE HCL 50 MG TABLET (FP) PO SCH ×2 (06:33→13:45)
[2017-12-11] MEDS: INSULIN SLIDING SCALE (NOVOLOG) 1 VIAL SQ SCH ×2 (06:33→11:15)
[2017-12-11 06:40] LABS: INR 2.45 (0.83-1.09); PROTHROMBIN TIME (PATIENT) 29.2 SEC (9.7-13.0)
[2017-12-11 06:52] LABS: BASO % 0.1 % (0-2.0); HEMATOCRIT 30.8 % (32.4-45.2); HEMOGLOBIN 10.1 GM/dL (10.7-15.3); LYMPH % 5.1 % (8-40); MCHC 32.7 g/dl (32.0-36.0); MEAN CELL VOLUME 94.9 fl (80-96); MEAN PLT VOLUME 9.7 fl (7.5-11.1); MONO % 1.7 % (3.8-10.2); NEUT % 93.1 % (42.8-82.8); PLATELET COUNT 162 K/MM3 (134-434); RBC 3.24 M/mm3 (3.60-5.2); RDW 15.9 % (11.6-15.6); WHITE BLOOD COUNT 11.7 K/mm3 (4.0-10.0)
[2017-12-11 06:57] LABS: ACTIVATED PTT 155.8 SECONDS (25.2-36.5)
[2017-12-11] MEDS: ALBUTEROL SO4 2.5/IPRATROPIUM 0.5 INH SOL 3 ML VIAL.NEB. NEB SCH ×2 (07:32→11:03)
[2017-12-11 08:18] LABS: ANION GAP 10 MMOL/L (8-16); BLOOD UREA NITROGEN 63 mg/dL (7-18); CALCIUM 8.7 mg/dL (8.5-10.1); CHLORIDE 111 mmol/L (98-107); CO2 18 mmol/L (21-32); CREATININE 3.7 mg/dL (0.55-1.3); GLUCOSE,RANDOM 199 mg/dL (74-106); MAGNESIUM 1.8 mg/dL (1.8-2.4); PHOSPHOROUS 4.6 mg/dL (2.5-4.9); POTASSIUM 4.5 mmol/L (3.5-5.1); SODIUM 139 mmol/L (136-145)
[2017-12-11] MEDS ORDERED: DEXTROSE 5%-WATER - 50 ML IVPB ONE (09:17)
[2017-12-11] MEDS ORDERED: cefTRIAXone SODIUM 1 GM VIAL ONE (09:17)
[2017-12-11] MEDS: CEFTRIAXONE 1 GM in DEXTROSE 5%-WATER - 50 ML IVPB SCH (09:35)
[2017-12-11] MEDS: PANTOPRAZOLE 40 MG TABLET (FP) PO SCH (09:36)
[2017-12-11] MEDS: FERROUS SO4 325 MG TABLET (FP) PO SCH (09:36)
[2017-12-11] MEDS: FOLIC ACID 1 MG TABLET (FP) PO SCH (09:36)
[2017-12-11] MEDS: NIFEdipine E.R 60 MG TABLET (UD) PO SCH (09:36)
[2017-12-11] MEDS: ISOSORBIDE MONONITRATE 60 MG TAB.SR.24H (FP) PO SCH (09:36)
[2017-12-11] MEDS: SODIUM BICARBONATE 650 MG TABLET PO SCH (09:36)
[2017-12-11] MEDS: BUDESONIDE/FORMETEROL FUMARATE 160/4.5 mcg INHALER IH SCH (09:37)
[2017-12-11] MEDS: TOLTERODINE TARTRATE 2 MG TABLET PO SCH (09:37)
[2017-12-11 11:02] VITALS: PULSE 86
--- NOTE | 2017-12-11 11:15 | PN ---
Progress Note, Physician History of Present Illness: pulmonary comfortable,-resp distress,ambulating . - Current Medication List Current Medications: Active Medications Albuterol Sulfate (Ventolin 0.083% Nebulizer Soln -) 1 amp NEB Q4H PRN PRN Reason: SHORT OF BREATH/WHEEZING Albuterol/Ipratropium (Duoneb -) 1 amp NEB RQID [facility] Last Admin: 12/11/17 11:03 Dose: 1 amp Budesonide/Formoterol Fumarate (Symbicort 160/4.5mcg -) 2 puff IH BID [facility] Last Admin: 12/11/17 09:37 Dose: 2 puff Ferrous Sulfate (Feosol -) 325 mg PO DAILY [facility] Last Admin: 12/11/17 09:36 Dose: 325 mg Folic Acid (Folic Acid -) 1 mg PO DAILY [facility] Last Admin: 12/11/17 09:36 Dose: 1 mg Hydralazine HCl (Apresoline -) 100 mg PO TID [facility] Last Admin: 12/11/17 06:33 Dose: 100 mg Ceftriaxone Sodium 1 gm/ (Dextrose) 50 mls @ 100 mls/hr IVPB DAILY [facility]; Protocol Last Admin: 12/11/17 09:35 Dose: 100 mls/hr Insulin Aspart (Novolog Vial Sliding Scale -) 1 vial SQ HS [facility]; Protocol Last Admin: 12/10/17 23:06 Dose: 8 units Insulin Aspart (Novolog Vial Sliding Scale -) 1 vial SQ TIDAC [facility]; Protocol Last Admin: 12/11/17 06:33 Dose: 8 units Insulin Detemir (Levemir Vial) 24 units SQ HS [facility] Last Admin: 12/10/17 23:08 Dose: 24 units Isosorbide Mononitrate (Imdur -) 60 mg PO DAILY [facility] Last Admin: 12/11/17 09:36 Dose: 60 mg Methylprednisolone Sodium Succinate (Solu-Medrol -) 40 mg IVPUSH Q6H-IV [facility] Last Admin: 12/11/17 09:35 Dose: 40 mg Nifedipine (Procardia Xl -) 60 mg PO DAILY [facility] Last Admin: 12/11/17 09:36 Dose: 60 mg Pantoprazole Sodium (Protonix -) 40 mg PO BID [facility] Last Admin: 12/11/17 09:36 Dose: 40 mg Sodium Bicarbonate (Sodium Bicarbonate -) 650 mg PO BID [facility] Last Admin: 12/11/17 09:36 Dose: 650 mg Tolterodine Tartrate (Detrol -) 2 mg PO BID [facility] Last Admin: 12/11/17 09:37 Dose: 2 mg - Objective Vital Signs: Vital Signs Temperature 98.4 F 12/11/17 08:24 Pulse Rate 86 12/11/17 11:02 Respiratory Rate 24 H 12/11/17 08:24 Blood Pressure 142/59 L 12/11/17 08:24 O2 Sat by Pulse Oximetry (%) 98 12/11/17 11:02 Constitutional: Yes: Well Nourished, Calm Eyes: Yes: WNL HENT: Yes: WNL Neck: Yes: WNL Cardiovascular: Yes: Regular Rate and Rhythm, S1, S2 Respiratory: Yes: Diminished Gastrointestinal: Yes: Normal Bowel Sounds, Soft Extremities: Yes: WNL Edema: No Labs: CBC, BMP 12/11/17 05:30 12/11/17 05:30 INR, PTT INR 2.45 (0.83-1.09) H 12/11/17 05:30 Problem List - Problems (1) Afib Code(s): I48.91 - UNSPECIFIED ATRIAL FIBRILLATION (2) Shortness of breath Code(s): R06.02 - SHORTNESS OF BREATH (3) COPD (chronic obstructive pulmonary disease) Code(s): J44.9 - CHRONIC OBSTRUCTIVE PULMONARY DISEASE, UNSPECIFIED Qualifiers: COPD type: chronic bronchitis (4) Current smoker Code(s): F17.200 - NICOTINE DEPENDENCE, UNSPECIFIED, UNCOMPLICATED (5) Diastolic CHF Code(s): I50.30 - UNSPECIFIED DIASTOLIC (CONGESTIVE) HEART FAILURE Qualifiers: Heart failure chronicity: chronic Qualified Code(s): I50.32 - Chronic diastolic (congestive) heart failure (6) IDDM (insulin dependent diabetes mellitus) Code(s): E11.9 - TYPE 2 DIABETES MELLITUS WITHOUT COMPLICATIONS; Z79.4 - [facility] (CURRENT) USE OF INSULIN (7) COPD exacerbation Code(s): J44.1 - CHRONIC OBSTRUCTIVE PULMONARY DISEASE W (ACUTE) EXACERBATION (8) CAD (coronary artery disease) Code(s): I25.10 - ATHSCL HEART DISEASE OF [place] CORONARY ARTERY W/O ANG PCTRS (9) CHF (congestive heart failure) Code(s): I50.9 - HEART FAILURE, UNSPECIFIED (10) CKD stage 4 due to type 2 diabetes mellitus Code(s): E11.22 - TYPE 2 DIABETES MELLITUS W DIABETIC CHRONIC KIDNEY DISEASE; N18.4 - CHRONIC KIDNEY DISEASE, STAGE 4 (SEVERE) (11) Depression Code(s): F32.9 - MAJOR DEPRESSIVE DISORDER, SINGLE EPISODE, UNSPECIFIED Qualifiers: Depression Type: unspecified Qualified Code(s): F32.9 - Major depressive disorder, single episode, unspecified (12) Gastroesophageal reflux disease Code(s): K21.9 - GASTRO-ESOPHAGEAL REFLUX DISEASE WITHOUT ESOPHAGITIS (13) History of DVT (deep vein thrombosis) Code(s): Z86.718 - PERSONAL HISTORY OF OTHER VENOUS THROMBOSIS AND EMBOLISM (14) History of atrial flutter Code(s): Z86.79 - PERSONAL HISTORY OF OTHER DISEASES OF THE CIRCULATORY SYSTEM (15) Pulmonary hypertension Code(s): I27.2 - OTHER SECONDARY PULMONARY HYPERTENSION * DO NOT USE * (16) CKD (chronic kidney disease) Code(s): N18.9 - CHRONIC KIDNEY DISEASE, UNSPECIFIED Assessment/Plan IMP ACUTE RESPIRATORY DISTRESS iIMPROVED LIKELY COMBINED COPD EXACERBATION/DIASTOLIC HF CLINICALLY IMPROVED AF H/O DVT DM CKD NEUROPATHY PULMONARY HTN HTN GERD PLAN AC STEROID TAPER INHALED BRONCHODILATORS SUPPLEMENTAL O2 F/U CHEST X-RAYS MONITORED BED GLYCEMIC CONTROL DR GOULD Problem List - Problems (1) Afib Code(s): I48.91 - UNSPECIFIED ATRIAL FIBRILLATION (2) Shortness of breath Code(s): R06.02 - SHORTNESS OF BREATH (3) COPD (chronic obstructive pulmonary disease) Code(s): J44.9 - CHRONIC OBSTRUCTIVE PULMONARY DISEASE, UNSPECIFIED Qualifiers: COPD type: chronic bronchitis (4) Current smoker Code(s): F17.200 - NICOTINE DEPENDENCE, UNSPECIFIED, UNCOMPLICATED (5) Diastolic CHF Code(s): I50.30 - UNSPECIFIED DIASTOLIC (CONGESTIVE) HEART FAILURE Qualifiers: Heart failure chronicity: chronic Qualified Code(s): I50.32 - Chronic diastolic (congestive) heart failure (6) IDDM (insulin dependent diabetes mellitus) Code(s): E11.9 - TYPE 2 DIABETES MELLITUS WITHOUT COMPLICATIONS; Z79.4 - CLE[employer] ROOM [employer]BL[employer] (CURRENT) USE OF INSULIN (7) COPD exacerbation Code(s): J44.1 - CHRONIC OBSTRUCTIVE PULMONARY DISEASE W (ACUTE) EXACERBATION (8) CAD (coronary artery disease) Code(s): I25.10 - ATHSCL HEART DISEASE OF [place] CORONARY ARTERY W/O ANG PCTRS (9) CHF (congestive heart failure) Code(s): I50.9 - HEART FAILURE, UNSPECIFIED (10) CKD stage 4 due to type 2 diabetes mellitus Code(s): E11.22 - TYPE 2 DIABETES MELLITUS W DIABETIC CHRONIC KIDNEY DISEASE; N18.4 - CHRONIC KIDNEY DISEASE, STAGE 4 (SEVERE) (11) Depression Code(s): F32.9 - MAJOR DEPRESSIVE DISORDER, SINGLE EPISODE, UNSPECIFIED Qualifiers: Depression Type: unspecified Qualified Code(s): F32.9 - Major depressive disorder, single episode, unspecified (12) Gastroesophageal reflux disease Code(s): K21.9 - GASTRO-ESOPHAGEAL REFLUX DISEASE WITHOUT ESOPHAGITIS (13) History of DVT (deep vein thrombosis) Code(s): Z86.718 - PERSONAL HISTORY OF OTHER VENOUS THROMBOSIS AND EMBOLISM (14) History of atrial flutter Code(s): Z86.79 - PERSONAL HISTORY OF OTHER DISEASES OF THE CIRCULATORY SYSTEM (15) Pulmonary hypertension Code(s): I27.2 - OTHER SECONDARY PULMONARY HYPERTENSION * DO NOT USE * (16) CKD (chronic kidney disease) Code(s): N18.9 - CHRONIC KIDNEY DISEASE, UNSPECIFIED
[2017-12-11] MEDS ORDERED: predniSONE 20 MG TABLET (UD) PO SCH (11:30)
--- NOTE | 2017-12-11 11:53 | ECHO ---
Name: TAYLOR VICTOR Exam:Adult Echocardiogram Study Date: 12/11/2017 08:32 AM Age: 77 yrs Reason For Study: SOB Height: 70 in Weight: 186 lb BSA: 2.0 m2 MMode/2D Measurements & Calculations IVSd: 0.98 cm Ao root diam: 2.7 cm LVIDd: 4.7 cm LA dimension: 3.6 cm LVIDs: 3.0 cm LVPWd: 0.83 cm EDV(Teich): 102.0 ml ESV(Teich): 34.4 ml Doppler Measurements & Calculations MV E max singh: 62.7 cm/sec TR max singh: 243.6 cm/sec MV A max singh: 89.3 cm/sec TR max P.3 mmHg MV E/A: 0.70 Med Peak E' Singh: 6.0 cm/sec Med E/e': 10.4 Lat Peak E' Singh: 5.4 cm/sec Lat E/e': 11.7 Left Ventricle There is mild concentric left ventricular hypertrophy. Ejection Fraction = 60-65%. The transmitral sp ectral Doppler flow pattern is suggestive of impaired LV relaxation. Right Ventricle The right ventricle is normal in size and function. Atria The left atrium is mildly dilated. Mitral Valve There is mild mitral valve thickening. There is no mitral valve stenosis. There is trace mitral regur gitation. Tricuspid Valve The tricuspid valve is not well visualized, but is grossly normal. There is mild tricuspid regurgitat ion. Right ventricular systolic pressure is elevated at 30-40mmHg. Aortic Valve The aortic valve opens well. No hemodynamically significant valvular aortic stenosis. No aortic regur gitation is present. Pulmonic Valve The pulmonic valve is not well seen, but is grossly normal. There is no pulmonic valvular stenosis. T here is no pulmonic valvular regurgitation. Great Vessels The aortic root is normal size. Pericardium/Pleura There is no pericardial effusion. Interpretation Summary There is mild concentric left ventricular hypertrophy. Ejection Fraction = 60-65%. The transmitral spectral Doppler flow pattern is suggestive of impaired LV relaxation. The right ventricle is normal in size and function. The left atrium is mildly dilated. There is mild tricuspid regurgitation. Right ventricular systolic pressure is elevated at 30-40mmHg. There is no pericardial effusion. MD Scott Levya 12/11/2017 11:52 AM
--- NOTE | 2017-12-11 12:43 | DS ---
Physical Exam: SUBJECTIVE: Patient seen and examined at bedside this morning, resting comfortably in chair. She endorses her shortness of breath is improving, and feels at her baseline. Denies fevers, chills, palpitations, abdominal pain, nausea, vomiting. OBJECTIVE: Vital Signs Period Temp Pulse Resp BP Sys/Renee Pulse Ox Last 24 Hr 98.4 F-98.6 F 85-102 20-24 134-157/49-63 97-100 PHYSICAL EXAM GENERAL: Awake, alert, and fully oriented, in no respiratory distress. HEAD: Normal with no signs of trauma. EYES: Pupils equal, round and reactive to light, extraocular movements intact without nystagmus b/l. Sclera anicteric, conjunctiva clear b/l. EARS, NOSE, THROAT: Oropharynx clear without exudates, mild erythema. Moist mucous membranes. NECK: Normal range of motion, supple without lymphadenopathy. No JVD appreciated. LUNGS: Good inspiratory effort b/l. No wheezing or rhonchi auscultated. HEART: Irregular rate and rhythm. Normal S1 and S2 without murmur, rub or gallop. ABDOMEN: Soft, nontender, not distended. Normoactive bowel sounds X4 quadrants. No guarding, no rebound tenderness. No hepatomegaly. MUSCULOSKELETAL: Normal range of motion at all joints. No bony deformities or tenderness. Strength 4/5 b/l upper and lower extremities. UPPER EXTREMITIES: 2+ radial pulses b/l, warm, well-perfused. No cyanosis noted. LOWER EXTREMITIES: 2+ dorsalis pulses b/l, warm, well-perfused. No calf tenderness b/l. Trace peripheral lower extremity pitting edema b/l. NEUROLOGICAL: Cranial nerves II-XII intact. Normal speech. No gross focal deficits. PSYCHIATRIC: Cooperative. Appropriate mood and affect upon my encounter today. SKIN: Warm, dry, no rashes or lesions noted. LABS Laboratory Results - last 24 hr 12/10/17 12/10/17 12/10/17 11:32 12:40 15:30 WBC 10.2 H RBC 3.25 L Hgb 10.1 L Hct 30.8 L MCV 94.7 MCH 31.2 MCHC 33.0 RDW 16.0 H Plt Count 197 MPV 10.2 Absolute Neuts (auto) 8.3 H Neutrophils % 81.1 Neutrophils % (Manual) Lymphocytes % 11.3 D Lymphocytes % (Manual) Monocytes % 7.5 D Monocytes % (Manual) Eosinophils % 0.0 Basophils % 0.1 Nucleated RBC % 0 Hypochromia Platelet Estimate Platelet Comment Anisocytosis Macrocytosis PT with INR INR PTT (Actin FS) > 400.0 H Sodium 140 Potassium 3.5 Chloride 108 H Carbon Dioxide 16 L Anion Gap 16 BUN 65 H Creatinine 4.0 H Creat Clearance w eGFR 10.80 POC Glucometer Random Glucose 168 H Calcium 8.7 Phosphorus Magnesium 12/10/17 12/10/17 12/10/17 15:30 17:51 20:00 WBC 11.0 H RBC 3.30 L Hgb 10.2 L Hct 31.3 L MCV 94.8 MCH 31.0 MCHC 32.7 RDW 16.1 H Plt Count 197 MPV 10.2 Absolute Neuts (auto) 10.1 H Neutrophils % 91.4 H Neutrophils % (Manual) 93.0 H Lymphocytes % 6.3 L D Lymphocytes % (Manual) 6.0 L D Monocytes % 2.2 L Monocytes % (Manual) 1 L Eosinophils % 0.0 Basophils % 0.1 Nucleated RBC % 0 Hypochromia 2+ Platelet Estimate Adequate Platelet Comment No clumping noted Anisocytosis 1+ Macrocytosis 1+ PT with INR INR PTT (Actin FS) 68.9 H Sodium Potassium Chloride Carbon Dioxide Anion Gap BUN Creatinine Creat Clearance w eGFR POC Glucometer 126 Random Glucose Calcium Phosphorus Magnesium 12/10/17 12/10/17 12/11/17 20:00 23:04 05:30 WBC 11.7 H RBC 3.24 L Hgb 10.1 L Hct 30.8 L MCV 94.9 MCH 31.0 MCHC 32.7 RDW 15.9 H Plt Count 162 MPV 9.7 Absolute Neuts (auto) 10.9 H Neutrophils % 93.1 H Neutrophils % (Manual) Lymphocytes % 5.1 L Lymphocytes % (Manual) Monocytes % 1.7 L Monocytes % (Manual) Eosinophils % 0.0 Basophils % 0.1 Nucleated RBC % 0 Hypochromia Platelet Estimate Platelet Comment Anisocytosis Macrocytosis PT with INR INR PTT (Actin FS) 85.8 H Sodium Potassium Chloride Carbon Dioxide Anion Gap BUN Creatinine Creat Clearance w eGFR POC Glucometer 313 Random Glucose Calcium Phosphorus Magnesium 12/11/17 12/11/17 12/11/17 05:30 05:30 06:26 WBC RBC Hgb Hct MCV MCH MCHC RDW Plt Count MPV Absolute Neuts (auto) Neutrophils % Neutrophils % (Manual) Lymphocytes % Lymphocytes % (Manual) Monocytes % Monocytes % (Manual) Eosinophils % Basophils % Nucleated RBC % Hypochromia Platelet Estimate Platelet Comment Anisocytosis Macrocytosis PT with INR 29.20 H INR 2.45 H PTT (Actin FS) 155.8 H Sodium 139 Potassium 4.5 Chloride 111 H Carbon Dioxide 18 L Anion Gap 10 BUN 63 H Creatinine 3.7 H Creat Clearance w eGFR 11.82 POC Glucometer 213 Random Glucose 199 H Calcium 8.7 Phosphorus 4.6 Magnesium 1.8 12/11/17 11:12 WBC RBC Hgb Hct MCV MCH MCHC RDW Plt Count MPV Absolute Neuts (auto) Neutrophils % Neutrophils % (Manual) Lymphocytes % Lymphocytes % (Manual) Monocytes % Monocytes % (Manual) Eosinophils % Basophils % Nucleated RBC % Hypochromia Platelet Estimate Platelet Comment Anisocytosis Macrocytosis PT with INR INR PTT (Actin FS) Sodium Potassium Chloride Carbon Dioxide Anion Gap BUN Creatinine Creat Clearance w eGFR POC Glucometer 308 Random Glucose Calcium Phosphorus Magnesium HOSPITAL COURSE: Date of Admission:12/09/17 Date of Discharge: 12/11/17 Patient is a 77 year old female with history significant for hypertension, diabetes, atrial fibrillation (s/p ablation, on Coumadin), left lower extremity DVT, asthma, COPD presents with complaint of shortness of breath. Chest Xray showed no acute pulmonary disease. INR was found to be subtherapeutic at 1.44, started on Heparin drip. Coumadin was reinstated at 7.5 mg daily. Unable to perform CTA to rule out PE as her creatinine was 3.7 upon admission. Solu-medrol , Duonebs, Ventolin, Symbicort was initiated for shortness of breath. Her breathing improved, INR imcreased to therapeutic range. Discharged with prednisone taper, symbicort inhaler. Coumadin decreased to 5mg daily. Insulin Levemir decreased to 12 units at night, and continuing insulin sliding scale with endocrinology recommendation. Sodium bicarbonate, with nephrology recommendation. Discharged with follow up to primary care provider, medical grade shoemaker , cloth carrier, tire center supervisor, city treasurer, within one week of discharge. Minutes to complete discharge: 35 Discharge Summary Reason For Visit: Shortness of Breath Current Active Problems Afib (Acute) CKD (chronic kidney disease) (Acute) COPD exacerbation (Acute) Shortness of breath (Acute) Condition: Improved - Instructions Diet, Activity, Other Instructions: You were admitted for shortness of breath. We started you on intravenous medication to prevent blood clots that could contribute to the shortness of breath. you were treated with oxygen, and steroids. You are being discharged on oral steroid Prednisone. Follow the taper directions. We have added Symbicort to hlep with your breathing. Follow up with cloth carrier Dr. Fletcher within week. Your Coumadin has been changed to 5mg daily. Take this dosage, and follow up your INR on Thursday12/14/2017. This is important to make sure the blood level is adequate to prevent blood clots. Follow up with Dr. Griffith Thursday12/14/2017 We have changed your insulin Levemir to 12 units in the evenings. You will follow up with tire center supervisor within one week to further manage the blood sugar. Continue your insulin sliding scale. Continue checking your fasting morning blood sugars and two hours after meals. record these values and bring to your doctors appointments. We added sodium bicarbonate for your kidneys. Follow up with city treasurer Dr. To within one week after discharge. Follow up with your primary care provider, medical grade shoemaker Dr. Griffith, cloth carrier Dr. Fletcher, and tire center supervisor Dr. Gomez, city treasurer Dr. To within one week of discharge. Please call to schedule the appointments, referral information has been provided. Please return to the nearest emergency department if you experience any fevers, chills, shortness of breath, chest pain, palpitations, abdominal pain, vomiting , continuous diarrhea, falls, loss of consciousness. Referrals: Kodi Fletcher MD [Staff Physician] - 1 Week José Miguel Griffith MD [Staff Physician] - 12/14/17 Myesha Khan MD [Primary Care Provider] - 1 Week Tylor To MD [Staff Physician] - 1 Week Ofelia Gomez MD [Staff Physician] - 1 Week Disposition: HOME - Home Medications Comprehensive Discharge Medication List: Ambulatory Orders Dexlansoprazole [Dexilant] 30 mg PO DAILY #30 ciarra. 08/02/15 hydrALAZINE HCL [Apresoline -] 100 mg PO Q8H 01/28/17 Ferrous Sulfate 325 mg PO DAILY 02/02/17 Folic Acid 1 mg PO DAILY 12/09/17 Isosorbide Mononitrate [Isosorbide Mononitrate ER] 60 mg PO DAILY 12/09/17 Nifedipine [Nifedipine ER] 60 mg PO DAILY 12/09/17 Pantoprazole Sodium 40 mg PO BID 12/09/17 Tolterodine Tartrate 2 mg PO BID 12/09/17 Umeclidinium Brm/Vilanterol Tr [Anoro Ellipta 62.5-25 Mcg INH] 1 puff IH DAILY 12/09/17 Albuterol 2.5/Ipratropium 0.5 [Duoneb -] 1 amp NEB RQID amp 12/11/17 Budesonide/Formeterol Fumarate [SYMBICORT 160/4.5mcg -] 2 puff IH BID #1 inhaler 12/11/17 Insulin (Levemir) [Levemir Vial] 24 units SQ HS units 12/11/17 Sodium Bicarbonate - 650 mg PO BID #40 tablet 12/11/17 Warfarin Sodium [Coumadin] 5 mg PO DAILY 10 Days #10 tablet 12/11/17 predniSONE [Deltasone -] See Taper PO ASDIR 6 Days #17 tab 12/11/17 This patient is new to me today: No Emergency Visit: Yes ED Registration Date: 12/09/17 Care time: The patient presented to the Emergency Department on the above date and was hospitalized for further evaluation of their emergent condition. Critical Care patient: No - Discharge Referral Referred to [facility] Med [facility] No
--- NOTE | 2017-12-11 13:13 | PN ---
Progress Note (short form) - Note Progress Note: Feels good Denies any complaints Vital Signs Period Temp Pulse Resp BP Sys/Renee Pulse Ox Last 24 Hr 98.4 F-98.6 F 85-102 20-24 134-157/49-63 97-100 PE: AOx3 Neck: Supple, No JVD HEENT: PERRL EOMI Lungs: CTA CVS: S1S2 Abd: Benign EXt: No edema Neuro: No focal deficit CMP Sodium 139 mmol/L (136-145) 12/11/17 05:30 Potassium 4.5 mmol/L (3.5-5.1) 12/11/17 05:30 Chloride 111 mmol/L (98-107) H 12/11/17 05:30 Carbon Dioxide 18 mmol/L (21-32) L 12/11/17 05:30 Anion Gap 10 MMOL/L (8-16) 12/11/17 05:30 BUN 63 mg/dL (7-18) H 12/11/17 05:30 Creatinine 3.7 mg/dL (0.55-1.3) H 12/11/17 05:30 Creat Clearance w eGFR 11.82 (>60) 12/11/17 05:30 POC Glucometer 308 UNITS (80-120) 12/11/17 11:12 Random Glucose 199 mg/dL (74-106) H 12/11/17 05:30 Calcium 8.7 mg/dL (8.5-10.1) 12/11/17 05:30 Phosphorus 4.6 mg/dL (2.5-4.9) 12/11/17 05:30 Magnesium 1.8 mg/dL (1.8-2.4) 12/11/17 05:30 Total Bilirubin 0.3 mg/dL (0.2-1) 12/10/17 07:10 AST 10 U/L (15-37) L 12/10/17 07:10 ALT 12 U/L (13-61) L 12/10/17 07:10 Alkaline Phosphatase 41 U/L (45-117) L 12/10/17 07:10 Creatine Kinase 112 IU/L (26-192) 12/09/17 12:40 Troponin I 0.02 ng/ml (0.00-0.05) 12/10/17 02:40 B-Natriuretic Peptide 629.6 pg/ml (5-450) H 12/09/17 12:40 Total Protein 6.7 g/dl (6.4-8.2) 12/10/17 07:10 Albumin 3.2 g/dl (3.4-5.0) L 12/10/17 07:10 Current Medications Generic Name Dose Route Start Last Admin Trade Name Freq PRN Reason Stop Dose Admin Albuterol Sulfate 1 amp 12/09/17 16:13 Ventolin 0.083% Nebulizer Soln - NEB Q4H PRN SHORT OF BREATH/WHEEZING Albuterol/Ipratropium 1 amp 12/09/17 16:00 12/11/17 11:03 Duoneb - NEB 1 amp RQID ERMA Administration Budesonide/Formoterol Fumarate 2 puff 12/09/17 22:00 12/11/17 09:37 Symbicort 160/4.5mcg - IH 2 puff BID ERMA Administration Ferrous Sulfate 325 mg 12/10/17 10:00 12/11/17 09:36 Feosol - PO 325 mg DAILY ER[facility] Administration Folic Acid 1 mg 12/10/17 10:00 12/11/17 09:36 Folic Acid - PO 1 mg DAILY [facility] Administration Hydralazine HCl 100 mg 12/09/17 16:00 12/11/17 06:33 Apresoline - PO 100 mg TID [facility] Administration Ceftriaxone Sodium 1 gm/ 50 mls @ 100 mls/hr 12/09/17 16:00 12/11/17 09:35 Dextrose IVPB 100 mls/hr DAILY [facility] Administration Protocol Insulin Aspart 1 vial 12/10/17 22:00 12/10/17 23:06 Novolog Vial Sliding Scale - SQ 8 units HS [facility] Administration Protocol Insulin Aspart 1 vial 12/10/17 15:31 12/11/17 11:15 Novolog Vial Sliding Scale - SQ 12 units TIDAC [facility] Administration Protocol Insulin Detemir 24 units 12/10/17 15:30 12/10/17 23:08 Levemir Vial SQ 24 units HS [facility] Administration Isosorbide Mononitrate 60 mg 12/10/17 10:00 12/11/17 09:36 Imdur - PO 60 mg DAILY [facility] Administration Nifedipine 60 mg 12/10/17 10:00 12/11/17 09:36 Procardia Xl - PO 60 mg DAILY [facility] Administration Pantoprazole Sodium 40 mg 12/09/17 22:00 12/11/17 09:36 Protonix - PO 40 mg BID [facility] Administration Prednisone 40 mg 12/11/17 11:30 12/11/17 11:43 Deltasone - PO 40 mg DAILY [facility] Administration Sodium Bicarbonate 650 mg 12/10/17 16:12 12/11/17 09:36 Sodium Bicarbonate - PO 650 mg BID [facility] Administration Tolterodine Tartrate 2 mg 12/09/17 22:00 12/11/17 09:37 Detrol - PO 2 mg BID [facility] Administration A/P T2DM uncontrolled Acute COPD Exacerbation Acute on Chronic Diastolic Heart Failure Atrial Fibrillation Pulmonary HTN HTN GERD CKD Pt being discharged home on Prednisone taper BGM QACHS Decrease Levemir 12 units daily at HS Decrease Novolog SS coverage Bronchodilators O2 supplement F/U in the office next week with FS record. Pt to call me at [phone] with any questions about her blood sugar.
[2017-12-11] MEDS ORDERED: INSULIN SLIDING SCALE (NOVOLOG) 1 VIAL SQ SCH (13:19)
[2017-12-11 13:26] LABS: PLATELET ESTIMATE ADEQUATE
[2017-12-11 14:53] VITALS: BP 149/57; TEMP 97.4
--- NOTE | 2017-12-11 15:58 | PN ---
Progress Note (short form) - Note Progress Note: Renal follow up for CKD stage 5 Pt seen and examined at the bedside awake and alert reports feeling better no cp, abd pain N/V/D making urine Vital Signs Temperature 97.4 F L 12/11/17 14:52 Pulse Rate 86 12/11/17 11:02 Respiratory Rate 24 H 12/11/17 08:24 Blood Pressure 149/57 L 12/11/17 14:52 O2 Sat by Pulse Oximetry (%) 98 12/11/17 11:02 Intake & Output 12/08/17 12/09/17 12/10/17 12/11/17 23:59 23:59 23:59 23:59 Intake Total 300 400 Output Total 200 Balance 300 200 Weight 84.368 kg 84.368 kg 86.455 kg NAD RRR Dec BS, no wheeze soft NT/ND no LE edema CBC, BMP 12/11/17 05:30 12/11/17 05:30 Current Medications Albuterol Sulfate (Ventolin 0.083% Nebulizer Soln -) 1 amp NEB Q4H PRN PRN Reason: SHORT OF BREATH/WHEEZING Albuterol/Ipratropium (Duoneb -) 1 amp NEB RQID [facility] Last Admin: 12/11/17 11:03 Dose: 1 amp Budesonide/Formoterol Fumarate (Symbicort 160/4.5mcg -) 2 puff IH BID [facility] Last Admin: 12/11/17 09:37 Dose: 2 puff Ferrous Sulfate (Feosol -) 325 mg PO DAILY [facility] Last Admin: 12/11/17 09:36 Dose: 325 mg Folic Acid (Folic Acid -) 1 mg PO DAILY [facility] Last Admin: 12/11/17 09:36 Dose: 1 mg Hydralazine HCl (Apresoline -) 100 mg PO TID [facility] Last Admin: 12/11/17 13:45 Dose: 100 mg Ceftriaxone Sodium 1 gm/ (Dextrose) 50 mls @ 100 mls/hr IVPB DAILY [facility]; Protocol Last Admin: 12/11/17 09:35 Dose: 100 mls/hr Insulin Aspart (Novolog Vial Sliding Scale -) 1 vial SQ HS [facility]; Protocol Last Admin: 12/10/17 23:06 Dose: 8 units Insulin Aspart (Novolog Vial Sliding Scale -) 1 vial SQ TIDAC [facility]; Protocol Insulin Detemir (Levemir Vial) 12 units SQ HS [facility] Isosorbide Mononitrate (Imdur -) 60 mg PO DAILY [facility] Last Admin: 12/11/17 09:36 Dose: 60 mg Nifedipine (Procardia Xl -) 60 mg PO DAILY [facility] Last Admin: 12/11/17 09:36 Dose: 60 mg Pantoprazole Sodium (Protonix -) 40 mg PO BID [facility] Last Admin: 12/11/17 09:36 Dose: 40 mg Prednisone (Deltasone -) 40 mg PO DAILY [facility] Last Admin: 12/11/17 11:43 Dose: 40 mg Sodium Bicarbonate (Sodium Bicarbonate -) 650 mg PO BID [facility] Last Admin: 12/11/17 09:36 Dose: 650 mg Tolterodine Tartrate (Detrol -) 2 mg PO BID [facility] Last Admin: 12/11/17 09:37 Dose: 2 mg 77 year old woman who follows with me for her CKD with history fo CKD stage 5 ( pt does not wish to pursue dialysis), COPD, Former smoker (quit last year), Hypertension, DM, CHF who presented with sob and admitted for CHF/COPD exacerbation. 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
--- NOTE | 2017-12-11 16:00 | PN ---
Teaching Attending Note Name of Resident: Ibrahima Reilly ATTENDING PHYSICIAN STATEMENT I saw and evaluated the patient. I reviewed the resident's note and discussed the case with the resident. I agree with the resident's findings and plan as documented. SUBJECTIVE: Patient is comfortable with no acute distress, no shortness of breath. feeling better. No nausea or vomiting. OBJECTIVE: Vital Signs Temperature 97.4 F L 12/11/17 14:52 Pulse Rate 86 12/11/17 11:02 Respiratory Rate 24 H 12/11/17 08:24 Blood Pressure 149/57 L 12/11/17 14:52 O2 Sat by Pulse Oximetry (%) 98 12/11/17 11:02 GENERAL: Awake, alert, and fully oriented, in no some respiratory distress. HEAD: Normal with no signs of trauma. EYES: Pupils equal, round and reactive to light, extraocular movements intact Sclera anicteric, conjunctiva clear b/l. EARS, NOSE, THROAT: Oropharynx clear without exudates, mild erythema. Moist mucous membranes. NECK: supple , no lymphadenopathy. No JVD LUNGS: GAE BL, decreased air entery BL . HEART: Irregular rate and rhythm. Normal S1 and S2 , ANDREA 2/6 ,no rub or gallop. ABDOMEN: Soft, nontender, not distended. BS positive, guarding, no rebound tenderness. No hepatomegaly appreciated. EXTREMITIES: 2+ dorsalis pulses b/l, warm, well-perfused. No calf tenderness b/ l. Trace edema . NEUROLOGICAL: Cranial nerves II-XII intact. Normal speech. No gross focal deficits. PSYCHIATRIC: Cooperative. Appropriate mood and affect upon my encounter today. SKIN: Warm, dry, no rashes or lesions noted. CBCD WBC 11.7 K/mm3 (4.0-10.0) H 12/11/17 05:30 RBC 3.24 M/mm3 (3.60-5.2) L 12/11/17 05:30 Hgb 10.1 GM/dL (10.7-15.3) L 12/11/17 05:30 Hct 30.8 % (32.4-45.2) L 12/11/17 05:30 MCV 94.9 fl (80-96) 12/11/17 05:30 MCHC 32.7 g/dl (32.0-36.0) 12/11/17 05:30 RDW 15.9 % (11.6-15.6) H 12/11/17 05:30 Plt Count 162 K/MM3 (134-434) 12/11/17 05:30 MPV 9.7 fl (7.5-11.1) 12/11/17 05:30 CMP Sodium 139 mmol/L (136-145) 12/11/17 05:30 Potassium 4.5 mmol/L (3.5-5.1) 12/11/17 05:30 Chloride 111 mmol/L (98-107) H 12/11/17 05:30 Carbon Dioxide 18 mmol/L (21-32) L 12/11/17 05:30 Anion Gap 10 MMOL/L (8-16) 12/11/17 05:30 BUN 63 mg/dL (7-18) H 12/11/17 05:30 Creatinine 3.7 mg/dL (0.55-1.3) H 12/11/17 05:30 Creat Clearance w eGFR 11.82 (>60) 12/11/17 05:30 Random Glucose 199 mg/dL (74-106) H 12/11/17 05:30 Calcium 8.7 mg/dL (8.5-10.1) 12/11/17 05:30 Total Bilirubin 0.3 mg/dL (0.2-1) 12/10/17 07:10 AST 10 U/L (15-37) L 12/10/17 07:10 ALT 12 U/L (13-61) L 12/10/17 07:10 Alkaline Phosphatase 41 U/L (45-117) L 12/10/17 07:10 Total Protein 6.7 g/dl (6.4-8.2) 12/10/17 07:10 Albumin 3.2 g/dl (3.4-5.0) L 12/10/17 07:10 CARDIAC ENZYMES Creatine Kinase 112 IU/L (26-192) 12/09/17 12:40 Troponin I 0.02 ng/ml (0.00-0.05) 12/10/17 02:40 Current Medications Generic Name Dose Route Start Last Admin Trade Name Freq PRN Reason Stop Dose Admin Albuterol Sulfate 1 amp 12/09/17 16:13 Ventolin 0.083% Nebulizer Soln - NEB Q4H PRN SHORT OF BREATH/WHEEZING Albuterol/Ipratropium 1 amp 12/09/17 16:00 12/11/17 11:03 Duoneb - NEB 1 amp RQID [facility] Administration Budesonide/Formoterol Fumarate 2 puff 12/09/17 22:00 12/11/17 09:37 Symbicort 160/4.5mcg - IH 2 puff BID [facility] Administration Ferrous Sulfate 325 mg 12/10/17 10:00 12/11/17 09:36 Feosol - PO 325 mg DAILY [facility] Administration Folic Acid 1 mg 12/10/17 10:00 12/11/17 09:36 Folic Acid - PO 1 mg DAILY [facility] Administration Hydralazine HCl 100 mg 12/09/17 16:00 12/11/17 13:45 Apresoline - PO 100 mg TID REPLACED BY [facility] Administration Ceftriaxone Sodium 1 gm/ 50 mls @ 100 mls/hr 12/09/17 16:00 12/11/17 09:35 Dextrose IVPB 100 mls/hr DAILY REPLACED BY [facility] Administration Protocol Insulin Aspart 1 vial 12/10/17 22:00 12/10/17 23:06 Novolog Vial Sliding Scale - SQ 8 units HS REPLACED BY [facility] Administration Protocol Insulin Aspart 1 vial 12/11/17 13:19 Novolog Vial Sliding Scale - SQ TIDAC REPLACED BY [facility] Protocol Insulin Detemir 12 units 12/11/17 22:00 Levemir Vial SQ HS REPLACED BY [facility] Isosorbide Mononitrate 60 mg 12/10/17 10:00 12/11/17 09:36 Imdur - PO 60 mg DAILY [facility] Administration Nifedipine 60 mg 12/10/17 10:00 12/11/17 09:36 Procardia Xl - PO 60 mg DAILY [facility] Administration Pantoprazole Sodium 40 mg 12/09/17 22:00 12/11/17 09:36 Protonix - PO 40 mg BID [facility] Administration Prednisone 40 mg 12/11/17 11:30 12/11/17 11:43 Deltasone - PO 40 mg DAILY [facility] Administration Sodium Bicarbonate 650 mg 12/10/17 16:12 12/11/17 09:36 Sodium Bicarbonate - PO 650 mg BID [facility] Administration Tolterodine Tartrate 2 mg 12/09/17 22:00 12/11/17 09:37 Detrol - PO 2 mg BID [facility] Administration Home Medications Medication Instructions Recorded Dexlansoprazole [Dexilant] 30 mg PO DAILY #30 08/02/15 hydrALAZINE HCL [Apresoline -] 100 mg PO Q8H 01/28/17 Ferrous Sulfate 325 mg PO DAILY 02/02/17 Folic Acid 1 mg PO DAILY 12/09/17 Isosorbide Mononitrate [Isosorbide 60 mg PO DAILY 12/09/17 Mononitrate ER] Nifedipine [Nifedipine ER] 60 mg PO DAILY 12/09/17 Pantoprazole Sodium 40 mg PO BID 12/09/17 Tolterodine Tartrate 2 mg PO BID 12/09/17 Umeclidinium Brm/Vilanterol Tr 1 puff IH DAILY 12/09/17 [Anoro Ellipta 62.5-25 Mcg INH] Albuterol 2.5/Ipratropium 0.5 1 amp NEB RQID amp 12/11/17 [Duoneb -] Budesonide/Formeterol Fumarate 2 puff IH BID #1 inhaler 12/11/17 [SYMBICORT 160/4.5mcg -] Insulin (Levemir) [Levemir Vial] 24 units SQ HS units 12/11/17 Sodium Bicarbonate - 650 mg PO BID #40 tablet 12/11/17 Warfarin Sodium [Coumadin] 5 mg PO DAILY 10 Days #10 tablet 12/11/17 predniSONE [Deltasone -] See Taper PO ASDIR 6 Days #17 tab 12/11/17 CXR: No acute pathology ASSESSMENT AND PLAN: Patient is a 77 year old female with history significant for hypertension, diabetes, atrial fibrillation s/p ablation, on Coumadin, left lower extremity DVT, asthma, COPD presents with complaint of shortness of breath which is worse today, with Labored breathing. # Acute SOB resolved with Hx of DVT with therapeutic INR now, will continue coumadin, Echo reviewed.follow with cardio as an outpatient. # ARF ,3.7--->4.0-->3.7 today avoid nephrotoxic drugs. Nephro on the case, s/p IVF follow with Nephro . continue sodium Bicarb. # COPD exacerbation with element of anxiety ,continue symbicort, nebs tx continue. Discussed with Pulmonary ok to discharge the patient. # T2DM continue Levemir # HTN: continue her home meds. DVT Px: Heparin, coumadin
[2017-12-11 16:36] VITALS: BMI 27.3
[2017-12-11] MEDS ORDERED: INSULIN (LEVEMIR) 100 UNITS/ML UNITS SQ SCH (22:00)
[2017-12-15] MEDS ORDERED: ALBUTEROL SO4 2.5/IPRATROPIUM 0.5 INH SOL 3 ML VIAL.NEB. NEB PRN (06:36)
[2017-12-15] MEDS ORDERED: BUDESONIDE/FORMETEROL FUMARATE 80/4.5 mcg INHALER IH SCH (10:00)
== END 2017-12-11 16:34 | disposition home or self-care (01) | DRG 291 ==
LOC: JER 11:48 → JERBED 14:23 → J4W 12-10 12:00
PROVIDERS: ADMIT Internal Medicine; ATTEND Internal Medicine
DX: I13.2 Hypertensive heart and chronic kidney disease with heart failure and with stage 5 chronic kidney disease, or end stage renal disease (principal); J96.00 Acute respiratory failure, unspecified whether with hypoxia or hypercapnia; I50.33 Acute on chronic diastolic (congestive) heart failure; I26.99 Other pulmonary embolism without acute cor pulmonale; N17.9 Acute kidney failure, unspecified; N18.5 Chronic kidney disease, stage 5; J44.1 Chronic obstructive pulmonary disease with (acute) exacerbation; E87.2 Acidosis; I48.91 Unspecified atrial fibrillation; I27.20 Pulmonary hypertension, unspecified; E11.65 Type 2 diabetes mellitus with hyperglycemia; E11.22 Type 2 diabetes mellitus with diabetic chronic kidney disease; G62.9 Polyneuropathy, unspecified; E11.21 Type 2 diabetes mellitus with diabetic nephropathy; I25.2 Old myocardial infarction; Z79.4 Long term (current) use of insulin; D64.9 Anemia, unspecified; Z87.891 Personal history of nicotine dependence; Z86.718 Personal history of other venous thrombosis and embolism; E78.5 Hyperlipidemia, unspecified; N32.81 Overactive bladder; K21.9 Gastro-esophageal reflux disease without esophagitis
CPT/HCPCS: 36415; 36600; 71045-TC-FY; 80048; 80053; 82375; 82550; 82803; 82962; 83050; 83735; 83880; 84100; 84484; 85025; 85610; 85730; 87804; 93005; 93010; 93306-TC; 94640; 94761; 97116-GP; 97161-GP; 99285-25; J1644

== ENCOUNTER 2017-12-13 18:14 | Inpatient (IN) | payer OTHER ==
--- NOTE | 2017-12-13 18:43 | PDOC ---
Attending Attestation - HPI HPI: 12/13/17 19:29 The patient is a 77 year old female with a significant past medical history of Afib s/p ablation ( taking Coumadin), DM, HTN, COPD, asthma, DVT who presents to the ED BIBA for sudden onset shortness of breath about 1 hour prior to ED arrival this evening. The patient states she was sitting at a computer when she developed a sudden onset of SOB with associated substernal chest pressure. SHe also report associated left arm discomfort. She denies recent illnesses, fevers, chills, n/v/d, dysuria, back pain, neck pain, headache, neurological deficits. She was recently d/c from the hospital 2 days ago on Thursday. Beef Cattle Grazier: Nacho Conveyor System Dispatcher: Yousuf PSH: ablation Social: denies tobacco or ETOH Allergies: nkda - Medical Decision Making 12/13/17 19:32 Documentation prepared by Jo Ann Mullins, acting as medical sales representative for Gale Ward MD <Jo Ann Mullins - Last Filed: 12/13/17 19:29> - Resident Resident Name: Justine Chin - ED Attending Attestation I have performed the following: I have examined & evaluated the patient, The case was reviewed & discussed with the resident, I agree w/resident's findings & plan, Exceptions are as noted - Physicial Exam PE: GENERAL: Awake, alert, and fully oriented, in no acute distress HEAD: No signs of trauma EYES: PERRLA, EOMI, sclera anicteric, conjunctiva clear ENT: Auricles normal inspection, hearing grossly normal, nares patent, oropharynx clear without exudates. Moist mucosa NECK: Normal ROM, supple, no lymphadenopathy, JVD, or masses LUNGS: +Pursed lip breathing. Distant lung sounds. No wheezes. Good air entry. Questionable crackles at the bases. Speaking full sentences. HEART: Regular rate and rhythm, normal S1 and S2, no murmurs, rubs or gallops ABDOMEN: Soft, nontender, normoactive bowel sounds. No guarding, no rebound. No masses EXTREMITIES: Normal range of motion, +trace edema to ankles B/L. No clubbing or cyanosis. No cords, erythema, or tenderness NEUROLOGICAL: Cranial nerves II through XII grossly intact. Normal speech. Motor and sensation intact. SKIN: Warm, Dry, normal turgor, no rashes or lesions noted. - Medical Decision Making Pt with signs of CHF. Will obtain labs, CXR, EKG. Initial BP low, however, patient received nitro just PERCUSSION TEACHER. <Gale Ward - Last Filed: 12/13/17 21:20>
--- NOTE | 2017-12-13 19:02 | PDOC ---
History of Present Illness - General Chief Complaint: Shortness of Breath Stated Complaint: DIFFICULTY BREATHING Time Seen by Provider: 12/13/17 18:32 History Source: Patient, Parent(s) (daughter) Exam Limitations: No Limitations - History of Present Illness Initial Comments: 12/13/17 18:58 Pt is a 77yo F with PMH of Afib s/p ablation, DM, HTN, COPD, asthma, DVT BIBA for sudden onset SOB that started today 1 hour prior to ED arrival. Pt said she was sitting on the computer when she suddenly felt short of breath associated with substernal chest pain and discomfort in her L arm and lightheadedness. She admits to dry cough. She denies recent illnesses, fevers, chills, n/v/d, dysuria , back pain, neck pain, headache, neurological deficits. She is on Coumadin. She was recently d/c from the hospital 2 days ago on Thursday. Per pt and daughter , EMS gave pt 4 baby ASA and SL nitro as well as DuoNeb. She lost 2lb since her last admission PCP: Ady Cellar Hand: Nacho Pulm: Ike Assembler Faucets: Yousuf PMH: see hpi PSH: ablation Meds: see med rec Social: denies Allergies: nkda Past History - Past Medical History Allergies/Adverse Reactions: Allergies Allergy/AdvReac Type Severity Reaction Status Date / Time No Known Allergies Allergy Verified 12/13/17 18:25 Home Medications: Ambulatory Orders Dexlansoprazole [Dexilant] 30 mg PO DAILY #30 08/02/15 hydrALAZINE HCL [Apresoline -] 100 mg PO Q8H 01/28/17 Ferrous Sulfate 325 mg PO DAILY 02/02/17 Folic Acid 1 mg PO DAILY 12/09/17 Isosorbide Mononitrate [Isosorbide Mononitrate ER] 60 mg PO DAILY 12/09/17 Nifedipine [Nifedipine ER] 60 mg PO DAILY 12/09/17 Pantoprazole Sodium 40 mg PO BID 12/09/17 Tolterodine Tartrate 2 mg PO BID 12/09/17 Umeclidinium Brm/Vilanterol Tr [Anoro Ellipta 62.5-25 Mcg INH] 1 puff IH DAILY 12/09/17 Albuterol 2.5/Ipratropium 0.5 [Duoneb -] 1 amp NEB RQID amp 12/11/17 Budesonide/Formeterol Fumarate [SYMBICORT 160/4.5mcg -] 2 puff IH BID #1 inhaler 12/11/17 Insulin (Levemir) [Levemir Vial] 24 units SQ HS units 12/11/17 Sodium Bicarbonate - 650 mg PO BID #40 tablet 12/11/17 Warfarin Sodium [Coumadin] 5 mg PO DAILY 10 Days #10 tablet 12/11/17 predniSONE [Deltasone -] See Taper PO ASDIR 6 Days #17 tab 12/11/17 Anemia: Yes Asthma: Yes Cancer: No Cardiac Disorders: Yes (AF ablation) CVA: No COPD: Yes CHF: Yes DVT: No Dementia: No Diabetes: Yes (IDDM) Dialysis: No (ckd) GI Disorders: No Disorders: Yes (frequency) HTN: Yes Hypercholesterolemia: Yes Liver Disease: No Psychiatric Problems: Yes (DEPRESSION) Seizures: No Thyroid Disease: No - Surgical History Abdominal Surgery: Yes (TUBAL LIG.) Appendectomy: No Cardiac Surgery: Yes (ablation) Cholecystectomy: No Lung Surgery: No Neurologic Surgery: No Orthopedic Surgery: Yes (hammer toes,trigger finger) - Family Disease History Family Disease History: Diabetes: Grandparents, [place]: Mother (htn) - Immunization History Immunization Up to Date: Yes - Suicide/Smoking/Psychosocial Hx Smoking Status: Yes Smoking History: Former smoker Have you smoked in the past 12 months: No Number of Cigarettes Smoked Daily: 1 If you are a former smoker, when did you quit?: 2 MO AGO Information on smoking cessation initiated: No 'Breaking Loose' booklet given: 12/10/17 Hx Alcohol Use: No Drug/Substance Use Hx: No Substance Use Type: None Hx Substance Use Treatment: No Review of Systems - Review of Systems Constitutional: No: Chills, Fever HEENTM: No: Recent change in vision, Nose Congestion, Throat Pain Respiratory: Yes: Shortness of Breath, SOB with Exertion, SOB at Rest. No: Cough, Wheezing, Hemoptysis Cardiac (ROS): Yes: Chest Pain, Lightheadedness. No: Palpitations, Syncope ABD/GI: No: Constipated, Diarrhea, Nausea, Rectal Bleeding, Vomiting, Abdominal cramping, Tarry Stools Musculoskeletal: No: Back Pain, Joint Pain, Muscle Pain, Neck Pain *Physical Exam - Vital Signs Last Vital Signs Temp Pulse Resp BP Pulse Ox 98.4 F 115 H 24 H 95/55 L 100 12/13/17 18:21 12/13/17 18:21 12/13/17 18:21 12/13/17 18:21 12/13/17 18:21 - Physical Exam Comments: 12/13/17 22:21 Pt sitting in bed, appeared short of breath General Appearance: Yes: Nourished, Appropriately Dressed, Moderate Distress HEENT: positive: EOMI, JEREMY, Pharynx Normal. negative: Nasal Congestion Neck: positive: Trachea midline, Supple. negative: Lymphadenopathy (R), Lymphadenopathy (L) Respiratory/Chest: positive: Rapid RR, Decreased Breath Sounds (in L lower lung field). negative: Labored Respiration, Paradoxal Breathing, Crackles, Rales Cardiovascular: positive: S1, S2, Tachycardia. negative: Edema, JVD, Murmur Vascular Pulses: Carotid (R): 2+, Carotid (L): 2+, Dorsalis-Pedis (R): 2+, Doralis-Pedis (L): 2+ Gastrointestinal/Abdominal: positive: Normal Bowel Sounds, Soft. negative: Distended, Guarding, Rebound, Tenderness Musculoskeletal: negative: CVA Tenderness Extremity: positive: Normal Capillary Refill. negative: Pedal Edema, Swelling, Calf Tenderness Integumentary: positive: Normal Color, Dry, Warm. negative: Swelling Neurologic: positive: examiner rating clerk II-XII NML intact, Fully Oriented, Alert, Normal Mood/ Affect, Normal Response, Motor Strength 5/5 ED Treatment Course - LABORATORY CBC & Chemistry Diagram: 12/13/17 20:00 12/13/17 19:55 - RADIOLOGY Radiology Studies Ordered: Category Date Time Status CHEST X-RAY PORTABLE* [RAD] Stat Radiology 12/13/17 18:38 Ordered Medical Decision Making - Medical Decision Making Pt is a 77yo F with PMH of Afib s/p ablation, DM, HTN, COPD, asthma, DVT BIBA for sudden onset SOB that started today 1 hour prior to ED arrival. Pt received four 81mg ASA, SL nitro and DuoNeb by EMS. Vitals: 95/55, hr 115, rr 24 saturating well on RA PE: L lower lobe decreased breath sounds. DDx: ACS, PE, PNA, copd, chf Will order ekg, trop, cbc, cmp, mg, phos, cxr ordered. hypotension can be explained by SL nitro, tachycardia can be explained by duoneb. Pt not actively complaining of chest pain. Will hold off on further medications. 12/13/17 20:01 Vitals during evaluation: saturating 97-100%, RR 20s, HR 100-107, BP 148/66 EKG: tachycardia with PAC. St depression in aVL. compared to EKG of 12/10/2017 and August 2017 no acute changes. Labs significant for Trop 0.51 (previous admission level <0.02, and elevated BNP compared to previous.) Will consult Dr. Griffith. Gluc elevated at 337 will give pt home dose of insulin. 12/13/17 22:[address] Griffith twice, no answer. Will admit to hospitalist and place consult order. Pt accepted by hospitalist. will be admitted Tele/obs under Dr. Erickson 12/13/17 22:54 per cart pt takes 24u insulin qhs. when asked, pt said she takes 12u qhs. changed order to 12u. Pt said she took all her other medications today. *DC/Admit/Observation/Transfer Diagnosis at time of Disposition: NSTEMI (non-ST elevated myocardial infarction), Shortness of breath - Discharge Dispostion Condition at time of disposition: Good Decision to Admit order: Yes - Referrals - Patient Instructions - Post Discharge Activity
[2017-12-13 20:07] LABS: BASO % 0.4 % (0-2.0); HEMATOCRIT 37.5 % (32.4-45.2); HEMOGLOBIN 12.4 GM/dL (10.7-15.3); LYMPH % 5.6 % (8-40); MCH 31.3 pg (25.7-33.7); MEAN CELL VOLUME 94.7 fl (80-96); MEAN PLT VOLUME 10.2 fl (7.5-11.1); MONO % 1.2 % (3.8-10.2); NEUT % 92.8 % (42.8-82.8); PLATELET COUNT 200 K/MM3 (134-434); RBC 3.96 M/mm3 (3.60-5.2); RDW 15.9 % (11.6-15.6); WHITE BLOOD COUNT 7.7 K/mm3 (4.0-10.0)
[2017-12-13 20:18] LABS: INR 1.76 (0.83-1.09); PROTHROMBIN TIME (PATIENT) 20.9 SEC (9.7-13.0); VENOUS PC02 43.3 mmHg (38-52); VENOUS PH 7.33 (7.32-7.42); VENOUS PO2 20.2 mmHg (28-48)
[2017-12-13 20:35] LABS: ALBUMIN 3.4 g/dl (3.4-5.0); ALK PHOS 48 U/L (45-117); ANION GAP 10 MMOL/L (8-16); BILIRUBIN,TOTAL 0.4 mg/dL (0.2-1); BLOOD UREA NITROGEN 65 mg/dL (7-18); CALCIUM 8.6 mg/dL (8.5-10.1); CHLORIDE 106 mmol/L (98-107); CO2 21 mmol/L (21-32); CREATININE 3.9 mg/dL (0.55-1.3); MAGNESIUM 1.6 mg/dL (1.8-2.4); PHOSPHOROUS 2.7 mg/dL (2.5-4.9); POTASSIUM 4.4 mmol/L (3.5-5.1); SGOT/AST 12 U/L (15-37); SGPT/ALT 18 U/L (13-61); SODIUM 137 mmol/L (136-145); TOT PROT 7.1 g/dl (6.4-8.2)
[2017-12-13 20:37] LABS: GLUCOSE,RANDOM 373 mg/dL (74-106)
[2017-12-13 21:08] LABS: PLATELET ESTIMATE ADEQUATE
[2017-12-13] MEDS ORDERED: INSULIN (LEVEMIR) 100 UNITS/ML UNITS SQ ONE ×3 (22:34→23:08)
--- NOTE | 2017-12-13 23:29 | PN ---
Teaching Attending Note Name of Resident: Elliot Morataya ATTENDING PHYSICIAN STATEMENT I saw and evaluated the patient. I reviewed the resident's note and discussed the case with the resident. I agree with the resident's findings and plan as documented. SUBJECTIVE: Patient is a 77 year old woman with PMH of Afib s/p ablation, DM, HTN, COPD, asthma, DVT BIBA for sudden onset SOB that started today 1 hour prior to ED arrival. She was sitting on the computer when she suddenly felt short of breath associated with substernal chest pain and discomfort in her L arm and lightheadedness. She admits to dry cough. She denies recent illnesses, fevers, chills, vomiting, dysuria, back pain, neck pain, headache, neurological deficits. She is on Coumadin. She was recently discharged from the hospital 2 days ago. EMS gave her 4 baby ASA and SL nitro as well as DuoNeb. She lost 2lb since her last admission OBJECTIVE: Alert Vital Signs Period Temp Pulse Resp BP Sys/Renee Pulse Ox Last 24 Hr 98.4 F 105-115 19-24 95-148/55-66 100-100 HEENT: No Jaundice, eye redness or discharge, PERRLA, EOMI. Normocephalic, atraumatic. External ears are normal and hearing is grossly intact. No nasal discharge. Neck: Supple, nontender. No palpable adenopathy or thyromegaly. No JVD Chest: Good effort. Clear to auscultation and percussion. Heart: Regular. No S3, rub or murmur Abdomen: Not distended, soft, nontender and no HSM. No rebound or guarding. Normoactive bowel sounds. Ext: Peripheral pulses intact. No leg edema. Skin: Warm and dry. No petechiae, rash or ecchymosis. Neuro: Alert. Oriented x3. CN 2-12 grossly intact. Sensation grossly intact in all four extremities and DTR are symmetric. Home Medications Medication Instructions Recorded Dexlansoprazole [Dexilant] 30 mg PO DAILY #30 08/02/15 hydrALAZINE HCL [Apresoline -] 100 mg PO Q8H 01/28/17 Ferrous Sulfate 325 mg PO DAILY 02/02/17 Folic Acid 1 mg PO DAILY 12/09/17 Isosorbide Mononitrate [Isosorbide 60 mg PO DAILY 12/09/17 Mononitrate ER] Nifedipine [Nifedipine ER] 60 mg PO DAILY 12/09/17 Pantoprazole Sodium 40 mg PO BID 12/09/17 Tolterodine Tartrate 2 mg PO BID 12/09/17 Umeclidinium Brm/Vilanterol Tr 1 puff IH DAILY 12/09/17 [Anoro Ellipta 62.5-25 Mcg INH] Albuterol 2.5/Ipratropium 0.5 1 amp NEB RQID amp 12/11/17 [Duoneb -] Budesonide/Formeterol Fumarate 2 puff IH BID #1 inhaler 12/11/17 [SYMBICORT 160/4.5mcg -] Insulin (Levemir) [Levemir Vial] 24 units SQ HS units 12/11/17 Sodium Bicarbonate - 650 mg PO BID #40 tablet 12/11/17 Warfarin Sodium [Coumadin] 5 mg PO DAILY 10 Days #10 tablet 12/11/17 predniSONE [Deltasone -] See Taper PO ASDIR 6 Days #17 tab 12/11/17 Abnormal Lab Results 12/13/17 12/13/17 12/13/17 19:55 19:55 19:55 RDW Neutrophils % Neutrophils % (Manual) Lymphocytes % Lymphocytes % (Manual) Monocytes % Monocytes % (Manual) PT with INR 20.90 H INR 1.76 H POC VBG pO2 BUN 65 H Creatinine 3.9 H Random Glucose 373 H* Magnesium 1.6 L AST 12 L Troponin I 0.51 H B-Natriuretic Peptide 12/13/17 12/13/17 12/13/17 19:55 19:55 20:00 RDW 15.9 H Neutrophils % 92.8 H Neutrophils % (Manual) 90.0 H Lymphocytes % 5.6 L Lymphocytes % (Manual) 5.0 L D Monocytes % 1.2 L Monocytes % (Manual) 2 L D PT with INR INR POC VBG pO2 20.2 L D BUN Creatinine Random Glucose Magnesium AST Troponin I B-Natriuretic Peptide 2456.8 H ASSESSMENT AND PLAN: 1. NSTEMI - Has nonspecific ST-T wave changes on EKG with elevated troponins of 0.51 and 2.04. Being treated with IV heparin drip, plavix 300 mg po stat, lipitor 80 mg po, metoprolol tartrate 25 mg po bid and daily 81 mg aspirin po. ECHO, telemetry and cardiology consult. 2. DM - For now, we will hold the home diabetes drugs and implement sliding scale insulin regimen. Provide comprehensive diabetes care with patient teaching and counseling about the importance of euglycemia, eye care and foot care. 3. CKD - Know to have CKD? Will consult nephrology and avoid nephrotoxic agents such as NSAIDS, aminoglycosides, contrast dyes and certain Alternative medicine products. 4. DVT prophylaxis - On coumadin 5. Advance directives - Full code
[2017-12-14] MEDS ORDERED: CLOPIDOGREL BISULFATE 300 MG TABLET PO ONE (00:08)
[2017-12-14] MEDS ORDERED: METOPROLOL TARTRATE 25 MG TABLET (FP) ONE (00:42)
[2017-12-14] MEDS: METOPROLOL TARTRATE 25 MG TABLET (FP) PO SCH ×2 (00:45→11:42)
--- NOTE | 2017-12-14 00:47 | HP ---
CHIEF COMPLAINT: sudden onset sob w/ associated chest pressure PCP: HISTORY OF PRESENT ILLNESS: 77F w/ pmhx of Danette randhawa (currently on Coumadin), DM, HTN, COPD, Asthma, DVT, SC s/ p cardiac cath, CKD, LLE DVT, GERD who presents with sudden onset sob with associated chest pressure. She states that when this happened, she was on the computer sitting down when suddenly she became sob and started having sub- sternal chest pressure radiating to the L arm, that she rates 8/10 at the time. She admits only to lightheadedness. She denies f/c, headaches/dizziness, vision changes, abd pain, urinary/bowel symptoms, blood in urine/stool, leg swelling, unintentional weight changes. Upon exam, she says that the chest pressure was totally resolved. Of note, she was recently was admitted for similar complaints of sob, w/o chest pain and was treated with steroids. ER course was notable for: (1) BUN/Cr 65/3.9, Glu 373, Mg 1.6, Trops 0.51 --> 2.04, BNP 2456.8 (2) Levemir 24U given, Nitro and 4 baby aspirin (3) Cardio consulted (Dr. Griffith) Recent Travel: Denies PAST MEDICAL HISTORY: Glendy. edis s/p ablation (currently on Coumadin) DM HTN COPD Asthma DVT SC s/p cardiac cath CKD LLE DVT GERD PAST SURGICAL HISTORY: cardiac ablation cardiac cath Social History: Smoking: Quit 1 year ago, smoked since 13 y/o about 1 PPD Alcohol: Socially, 1 glass of wine Drugs: Denies Family History: Father: DM Mother: kidney disease Sister: lung cancer Allergies No Known Allergies Allergy (Verified 12/13/17 18:25) HOME MEDICATIONS: Home Medications Medication Instructions Recorded Dexlansoprazole [Dexilant] 30 mg PO DAILY #30 08/02/15 hydrALAZINE HCL [Apresoline -] 100 mg PO Q8H 01/28/17 Ferrous Sulfate 325 mg PO DAILY 02/02/17 Folic Acid 1 mg PO DAILY 12/09/17 Isosorbide Mononitrate [Isosorbide 60 mg PO DAILY 12/09/17 Mononitrate ER] Nifedipine [Nifedipine ER] 60 mg PO DAILY 12/09/17 Pantoprazole Sodium 40 mg PO BID 12/09/17 Tolterodine Tartrate 2 mg PO BID 12/09/17 Umeclidinium Brm/Vilanterol Tr 1 puff IH DAILY 12/09/17 [Anoro Ellipta 62.5-25 Mcg INH] Albuterol 2.5/Ipratropium 0.5 1 amp NEB RQID amp 12/11/17 [Duoneb -] Budesonide/Formeterol Fumarate 2 puff IH BID #1 inhaler 12/11/17 [SYMBICORT 160/4.5mcg -] Insulin (Levemir) [Levemir Vial] 24 units SQ HS units 12/11/17 Sodium Bicarbonate - 650 mg PO BID #40 tablet 12/11/17 Warfarin Sodium [Coumadin] 5 mg PO DAILY 10 Days #10 tablet 12/11/17 predniSONE [Deltasone -] See Taper PO ASDIR 6 Days #17 tab 12/11/17 REVIEW OF SYSTEMS CONSTITUTIONAL: Absent: fever, chills, diaphoresis, generalized weakness, malaise, loss of appetite, weight change HEENT: Absent: rhinorrhea, nasal congestion, eye pain, visual changes CARDIOVASCULAR: Absent: chest pain, palpitations, irregular heart rate, lightheadedness, peripheral edema RESPIRATORY: Absent: cough, shortness of breath, dyspnea with exertion, orthopnea GASTROINTESTINAL: Absent: abdominal pain, abdominal distension, nausea, vomiting, diarrhea, constipation GENITOURINARY: Absent: dysuria, frequency, hematuria MUSCULOSKELETAL: Absent: myalgia, arthralgia, joint swelling, back pain, neck pain HEMATOLOGIC/IMMUNOLOGIC: Absent: easy bleeding, easy bruising, lymphadenopathy ENDOCRINE: Absent: unexplained weight gain, unexplained weight loss NEUROLOGIC: Absent: headache, focal weakness or paresthesias, dizziness, unsteady gait, seizure, mental status changes, bladder or bowel incontinence PHYSICAL EXAMINATION Vital Signs - 24 hr 12/13/17 12/13/17 12/13/17 18:21 20:10 20:54 Temperature 98.4 F Pulse Rate 115 H 105 H Pulse Rate [ 105 H Right Radial] Respiratory 24 H 19 Rate Blood Pressure 95/55 L Blood Pressure 148/66 [Right Arm] O2 Sat by Pulse 100 100 100 Oximetry (%) 12/14/17 00:29 Temperature 98.8 F Pulse Rate Pulse Rate [ 91 H Right Radial] Respiratory 18 Rate Blood Pressure Blood Pressure 142/64 [Right Arm] O2 Sat by Pulse 100 Oximetry (%) GENERAL: AAOx3. NAD. Resting comfortably. HEENT: AT/NC. EOMI. CARLO. Moist mucus membranes. NECK: Supple, no LAD/JVD. LUNGS: CTA B/L. No w/r/r noted. Symmetric chest rise. No accessory muscle use. HEART: RRR. Normal S1, S2. No murmurs noted. ABDOMEN: Soft, ND/NT +BS in all 4 Q's. No masses or bruits noted. MUSCULOSKELETAL: No pedal edema. 5/5 muscle strength in b/l u/l extremities. NEUROLOGICAL: Normal speech. CN II-XII intact. PSYCHIATRIC: Cooperative. Good eye contact. Appropriate mood and affect. SKIN: Warm, dry, normal turgor, normal capillary refill. Laboratory Results - last 24 hr 12/13/17 12/13/17 12/13/17 19:55 19:55 19:55 WBC RBC Hgb Hct MCV MCH MCHC RDW Plt Count MPV Absolute Neuts (auto) Neutrophils % Neutrophils % (Manual) Band Neutrophils % Lymphocytes % Lymphocytes % (Manual) Monocytes % Monocytes % (Manual) Eosinophils % Basophils % Nucleated RBC % Platelet Estimate PT with INR 20.90 H INR 1.76 H VBG pH POC VBG pCO2 POC VBG pO2 Mixed VBG HCO3 Sodium 137 Potassium 4.4 Chloride 106 Carbon Dioxide 21 Anion Gap 10 BUN 65 H Creatinine 3.9 H Creat Clearance w eGFR 11.12 Random Glucose 373 H* Calcium 8.6 Phosphorus 2.7 Magnesium 1.6 L Total Bilirubin 0.4 AST 12 L ALT 18 Alkaline Phosphatase 48 Troponin I 0.51 H B-Natriuretic Peptide Total Protein 7.1 Albumin 3.4 12/13/17 12/13/17 12/13/17 19:55 19:55 20:00 WBC 7.7 RBC 3.96 Hgb 12.4 Hct 37.5 D MCV 94.7 MCH 31.3 MCHC 33.0 RDW 15.9 H Plt Count 200 D MPV 10.2 Absolute Neuts (auto) 7.2 Neutrophils % 92.8 H Neutrophils % (Manual) 90.0 H Band Neutrophils % 3.0 Lymphocytes % 5.6 L Lymphocytes % (Manual) 5.0 L D Monocytes % 1.2 L Monocytes % (Manual) 2 L D Eosinophils % 0.0 Basophils % 0.4 D Nucleated RBC % 0 Platelet Estimate Adequate PT with INR INR VBG pH 7.33 POC VBG pCO2 43.3 POC VBG pO2 20.2 L D Mixed VBG HCO3 22.2 Sodium Potassium Chloride Carbon Dioxide Anion Gap BUN Creatinine Creat Clearance w eGFR Random Glucose Calcium Phosphorus Magnesium Total Bilirubin AST ALT Alkaline Phosphatase Troponin I B-Natriuretic Peptide 2456.8 H Total Protein Albumin ASSESSMENT/PLAN: 77F w/ pmhx of Danette randhawa (currently on Coumadin), DM, HTN, COPD, Asthma, DVT, SC s/ p cardiac cath, CKD, LLE DVT, GERD who presents with sudden onset sob with associated chest pressure admitted for NSTEMI. #NSTEMI; Elevated trops 0.51, now 2.04; ST depression in V4, V5; Chest pain resolved. -Aspirin 81 mg PO QD -Heparin drip protocol -Metoprolol Tartate 25 mg PO BID -Loading dose Plavix 300 mg once; then 75 mg PO QD -Atorvastatin 80 mg PO QD -Repeat trops/EKG ordered for 6am -Echo ordered -Spoke to towboat pilot, Dr Griffith. Pt is well-known to the towboat pilot and was notified of EKG changes. Agreed to treat pt as NSTEMI and admit to tele. Will assess in AM. Await cardio recs. #Atrial Fibrillation; Currently NSR. Sub-therapeutic INR 1.76. Resume home med: -Coumadin 5 mg PO QD #DM -Hold home meds -BGMs ACHS -ISS #Anemia Resume home meds: -Ferrous sulfate 325 mg PO QD -Folic acid 1 mg PO QD #HTN Resume home meds: -Hydralazine 100mg PO TID -Imdur 60mg PO daily -Nifedipine 60mg PO daily #GI Ppx Resume home med: -Pantoprazole 40 mg PO BID #DVT ppx -Currently on Coumadin 5 mg PO QD #FEN -no IVf -recheck lytes in AM -Renal diet dispo -admit to tele inpt Visit type - Emergency Visit Emergency Visit: Yes ED Registration Date: 12/13/17 Care time: The patient presented to the Emergency Department on the above date and was hospitalized for further evaluation of their emergent condition. - New Patient This patient is new to me today: Yes Date on this admission: 12/14/17 - Critical Care Critical Care patient: No
[2017-12-14] MEDS ORDERED: INSULIN (NOVOLOG) ASPART 100 UNITS/ML 10ML VIAL SQ ONE (03:00)
[2017-12-14] MEDS ORDERED: INSULIN (NOVOLOG) ASPART 100 UNITS/ML 10ML VIAL ONE ×2 (05:46→22:00)
[2017-12-14] MEDS ORDERED: hydrALAZINE HCL 25 MG TABLET (FP) ONE (05:46)
[2017-12-14] MEDS: hydrALAZINE HCL 50 MG TABLET (FP) PO SCH ×3 (06:30→21:52)
[2017-12-14] MEDS: INSULIN SLIDING SCALE (NOVOLOG) 1 VIAL SQ SCH ×4 (06:30→22:03)
[2017-12-14 06:45] LABS: BASO % 0.2 % (0-2.0); HEMATOCRIT 31.2 % (32.4-45.2); HEMOGLOBIN 10.1 GM/dL (10.7-15.3); LYMPH % 21.6 % (8-40); MCH 30.7 pg (25.7-33.7); MCHC 32.5 g/dl (32.0-36.0); MEAN CELL VOLUME 94.4 fl (80-96); MEAN PLT VOLUME 9.7 fl (7.5-11.1); MONO % 11.8 % (3.8-10.2); NEUT % 66.4 % (42.8-82.8); PLATELET COUNT 170 K/MM3 (134-434); RBC 3.31 M/mm3 (3.60-5.2); RDW 15.6 % (11.6-15.6); WHITE BLOOD COUNT 8.4 K/mm3 (4.0-10.0)
[2017-12-14] MEDS ORDERED: INSULIN SLIDING SCALE (NOVOLOG) 1 VIAL SQ SCH ×2 (07:00)
[2017-12-14 07:47] LABS: ALBUMIN 2.8 g/dl (3.4-5.0); ALK PHOS 38 U/L (45-117); ANION GAP 11 MMOL/L (8-16); BILIRUBIN,TOTAL 0.3 mg/dL (0.2-1); BLOOD UREA NITROGEN 67 mg/dL (7-18); CALCIUM 8.4 mg/dL (8.5-10.1); CHLORIDE 111 mmol/L (98-107); CO2 21 mmol/L (21-32); CREATININE 3.7 mg/dL (0.55-1.3); POTASSIUM 4.7 mmol/L (3.5-5.1); SGOT/AST 11 U/L (15-37); SGPT/ALT 14 U/L (13-61); SODIUM 143 mmol/L (136-145); TOT PROT 5.8 g/dl (6.4-8.2)
[2017-12-14 07:49] LABS: GLUCOSE,RANDOM 35 mg/dL (74-106)
--- NOTE | 2017-12-14 08:06 | PDOC ---
*Physical Exam - Vital Signs Last Vital Signs Temp Pulse Resp BP Pulse Ox 98.5 F 61 17 117/57 L 99 12/14/17 06:40 12/14/17 06:40 12/14/17 06:40 12/14/17 06:40 12/14/17 06:40 - Physical Exam General Appearance: Yes: Nourished Respiratory/Chest: positive: Lungs Clear, Normal Breath Sounds Cardiovascular: positive: Regular Rhythm, S1, S2, Tachycardia ED Treatment Course - LABORATORY CBC & Chemistry Diagram: 12/14/17 06:00 12/14/17 06:00 - ADDITIONAL ORDERS Additional order review: Laboratory Results 12/13/17 12/13/17 12/13/17 19:55 19:55 19:55 PT with INR INR VBG pH 7.33 POC VBG pCO2 43.3 POC VBG pO2 20.2 L D Mixed VBG HCO3 22.2 Sodium Potassium Chloride Carbon Dioxide Anion Gap BUN Creatinine Creat Clearance w eGFR Random Glucose Calcium Phosphorus Magnesium Total Bilirubin AST ALT Alkaline Phosphatase Troponin I 0.51 H B-Natriuretic Peptide 2456.8 H Total Protein Albumin 12/13/17 12/13/17 19:55 19:55 PT with INR 20.90 H INR 1.76 H VBG pH POC VBG pCO2 POC VBG pO2 Mixed VBG HCO3 Sodium 137 Potassium 4.4 Chloride 106 Carbon Dioxide 21 Anion Gap 10 BUN 65 H Creatinine 3.9 H Creat Clearance w eGFR 11.12 Random Glucose 373 H* Calcium 8.6 Phosphorus 2.7 Magnesium 1.6 L Total Bilirubin 0.4 AST 12 L ALT 18 Alkaline Phosphatase 48 Troponin I B-Natriuretic Peptide Total Protein 7.1 Albumin 3.4 12/13/17 20:00 RBC 3.96 MCV 94.7 MCHC 33.0 RDW 15.9 H MPV 10.2 Neutrophils % 92.8 H Lymphocytes % 5.6 L Monocytes % 1.2 L Eosinophils % 0.0 Basophils % 0.4 D - Medications Given in the ED: ED Medications Discontinued Medications Generic Name Dose Route Start Last Admin Trade Name Freq PRN Reason Stop Dose Admin Clopidogrel Bisulfate 300 mg 12/14/17 00:08 12/14/17 00:45 Plavix - PO 12/14/17 00:09 300 mg ONCE ONE Administration Insulin Aspart 12 units 12/14/17 03:00 10/15/18 01:00 Novolog Vial SQ 12/14/17 03:01 12 unit ONCE ONE Administration Insulin Detemir 24 units 12/13/17 22:34 12/13/17 23:00 Levemir Vial SQ 12/13/17 22:35 Not Given ONCE ONE Insulin Detemir 12 units 12/13/17 23:08 12/13/17 23:10 Levemir Vial SQ 12/13/17 23:09 12 unit ONCE ONE Administration Medical Decision Making - Medical Decision Making 12/14/17 08:04 77 yo F wit h/o copd, htn dm afib here admitted in ed holding for bed, admitted for sob and chest pain r/o acs, chf. called to bedside for low blood sugar 30. pt was given lantus and insulink, states she did not eat her breakfast does not like oatmeal. pt awake alert and talking on my exam. given juice, bread and cereal. feeling much better. will repeat finger stick. paged [facility] to evaluate pt. *DC/Admit/Observation/Transfer Diagnosis at time of Disposition: NSTEMI (non-ST elevated myocardial infarction), Shortness of breath - Discharge Dispostion Condition at time of disposition: Good - Referrals - Patient Instructions - Post Discharge Activity
[2017-12-14] MEDS ORDERED: HEPARIN NA (PORCINE) 5,000 UNITS/ML 1ML VIAL IVPUSH PRN (09:01)
[2017-12-14] MEDS ORDERED: HEPARIN INFUSION - 25,000 UNITS/500 ML INFUS.BAG IVPB ONE (09:34)
[2017-12-14] MEDS ORDERED: HEPARIN NA (PORCINE) 5,000 UNITS/ML 1ML VIAL ONE (09:34)
[2017-12-14] MEDS: HEPARIN INFUSION - 25,000 UNITS/500 ML INFUS.BAG IV SCH ×2 (09:49→19:45)
--- NOTE | 2017-12-14 10:17 | EKG ---
Test Reason : Blood Pressure : / mmHG Vent. Rate : 110 BPM Atrial Rate : 110 BPM P-R Int : 146 ms QRS Dur : 078 ms QT Int : 346 ms P-R-T Axes : 064 -40 073 degrees QTc Int : 468 ms SINUS TACHYCARDIA WITH PREMATURE ATRIAL COMPLEXES LEFT AXIS DEVIATION NONSPECIFIC ST ABNORMALITY ABNORMAL ECG WHEN COMPARED WITH ECG OF 10-DEC-2017 10:46, PREMATURE ATRIAL COMPLEXES ARE NOW PRESENT Confirmed by ANDER BLOUNT MD ([id number]) on 12/14/2017 10:17:06 AM Referred By: Confirmed By:ANDER BLOUNT MD
--- NOTE | 2017-12-14 10:35 | EKG ---
Test Reason : Blood Pressure : / mmHG Vent. Rate : 087 BPM Atrial Rate : 087 BPM P-R Int : 150 ms QRS Dur : 074 ms QT Int : 364 ms P-R-T Axes : 059 -34 064 degrees QTc Int : 438 ms NORMAL SINUS RHYTHM LEFT AXIS DEVIATION ABNORMAL ECG WHEN COMPARED WITH ECG OF 13-DEC-2017 18:24, PREMATURE ATRIAL COMPLEXES ARE NO LONGER PRESENT VENT. RATE HAS DECREASED Confirmed by JOSE ALEJANDRO VILLAGRAN, ANDER ([id number]) on 12/14/2017 10:34:46 AM Referred By: Confirmed By:ANDER BLOUNT MD
[2017-12-14] MEDS: ASPIRIN COATED 81 MG TABLET.EC PO SCH (11:41)
[2017-12-14] MEDS: FOLIC ACID 1 MG TABLET (FP) PO SCH (11:41)
[2017-12-14] MEDS: FERROUS SO4 325 MG TABLET (FP) PO SCH (11:41)
[2017-12-14] MEDS: PANTOPRAZOLE 40 MG TABLET (FP) PO SCH ×2 (11:42→21:51)
[2017-12-14] MEDS: NIFEdipine E.R 60 MG TABLET (UD) PO SCH (11:42)
[2017-12-14] MEDS: CLOPIDOGREL BISULFATE 75 MG TABLET (FP) PO SCH (11:42)
--- NOTE | 2017-12-14 14:26 | EKG ---
Test Reason : Blood Pressure : / mmHG Vent. Rate : 061 BPM Atrial Rate : 061 BPM P-R Int : 144 ms QRS Dur : 080 ms QT Int : 424 ms P-R-T Axes : 060 -23 049 degrees QTc Int : 426 ms NORMAL SINUS RHYTHM NORMAL ECG WHEN COMPARED WITH ECG OF 14-DEC-2017 00:41, NO SIGNIFICANT CHANGE WAS FOUND Confirmed by ANDER BLOUNT MD ([id number]) on 12/14/2017 2:26:30 PM Referred By: Nasir BULLOCK Confirmed By:ANDER BLOUNT MD
--- NOTE | 2017-12-14 15:39 | ECHO ---
Name: TAYLOR VICTOR Exam:Adult Echocardiogram Study Date: 12/14/2017 02:04 PM Age: 77 yrs Reason For Study: nstemi Height: 70 in Weight: 190 lb BSA: 2.0 m2 MMode/2D Measurements & Calculations IVSd: 0.97 cm Ao root diam: 3.8 cm LVIDd: 4.9 cm LA dimension: 3.8 cm LVIDs: 3.0 cm ACS: 1.7 cm LVPWd: 0.97 cm IVSs: 1.3 cm LVPWs: 1.3 cm EDV(Teich): 112.9 ml ESV(Teich): 34.7 ml Doppler Measurements & Calculations MV E max singh: 60.7 cm/sec Ao V2 max: 99.3 cm/sec MV A max singh: 70.3 cm/sec Ao max P.9 mmHg MV E/A: 0.86 Ao V2 mean: 76.0 cm/sec Ao mean P.6 mmHg Ao V2 VTI: 20.9 cm TR max singh: 226.7 cm/sec Med Peak E' Singh: 4.8 cm/sec TR max P.6 mmHg Med E/e': 12.6 Lat Peak E' Singh: 3.6 cm/sec Lat E/e': 16.8 Procedure A complete two-dimensional transthoracic echocardiogram was performed (2D, M-mode, Doppler and color flow Doppler). Left Ventricle The left ventricle is normal in size. Left ventricular systolic function is normal. Ejection Fraction = 60- 65%. E/A reversal mitral inflow and TDI revealing impaired relaxation with normal filling pressure (E /E' 13). No regional wall motion abnormalities noted. Right Ventricle The right ventricle is normal size. The right ventricular systolic function is normal. Atria The left atrial size is normal. Right atrial size is normal. Mitral Valve There is mild mitral annular calcification. There is mild mitral regurgitation. Tricuspid Valve The tricuspid valve is normal in structure and function. There is mild tricuspid regurgitation. Pulmo nary artery systolic pressure is at least 27 mmHg assuming RA pressure of 3 mmHg. Aortic Valve There is mild aortic sclerosis.;. The aortic valve is trileaflet. Trace to mild aortic regurgitation. Pulmonic Valve The pulmonic valve is not well visualized. Great Vessels The aortic root is normal size. Pericardium/Pleura There is no pericardial effusion. Interpretation Summary The left ventricle is normal in size. Left ventricular systolic function is normal. No regional wall motion abnormalities noted. Ejection Fraction = 60-65%. E/A reversal mitral inflow and TDI revealing impaired relaxation with normal filling pressure (E/E' 1 3) The right ventricular systolic function is normal. The left atrial size is normal. Right atrial size is normal. There is mild mitral annular calcification. There is mild mitral regurgitation. There is mild tricuspid regurgitation. Pulmonary artery systolic pressure is at least 27 mmHg assuming RA pressure of 3 mmHg There is mild aortic sclerosis.; Trace to mild aortic regurgitation. There is no pericardial effusion. When compared to study dated 12/11/17, no significant changes Oneil Moser MD 12/14/2017 03:39 PM
--- NOTE | 2017-12-14 16:03 | PN ---
Teaching Attending Note Name of Resident: Raquel Crisostomo ATTENDING PHYSICIAN STATEMENT I saw and evaluated the patient. I reviewed the resident's note and discussed the case with the resident. I agree with the resident's findings and plan as documented. Pt admitted after midnight; brief summary SUBJECTIVE: Chest pain free; troponin continues to trend up. VSS. Remains on heparin drip ; saw w/ CV down in the ER. Awaiting their final recs but I am told that they will be treating this as NSTEMI. She had a R-HC aparently done at [facility]; we will check the report and scan it into the chart. OBJECTIVE: No issues on tele, no mgr, no JVD or edema. Lungs clear. ASSESSMENT AND PLAN: 1) NSTEMI: Management ultimately deferred to CV; obtaining old cath report, review with CV. If she hasn't had LHC she may require. Continue ASA, hep drip ( hold coumadin), statin, BB, plavix (was loaded) 2) HTN: Continue current meds; <160 is goal inpatient. 3) HLD 4) A fib: Rate is controlled; restart coumadin per CV. 5) CKD: Trend BMP; contrast may be an issue with any interventional study. 6) DM: Continue home meds; has them adjusted at recent visit here. Full Code
--- NOTE | 2017-12-14 16:30 | PN ---
Physical Exam: SUBJECTIVE: Patient seen and examined at bedside this morning. She denies chest pain, or left arm numbness. Denies lightheadedness, shortness of breath, palpitations, abdominal pain, nausea, vomiting, diarrhea. OBJECTIVE: Vital Signs Period Temp Pulse Resp BP Sys/Renee Pulse Ox Last 24 Hr 98.1 F-98.8 F 61-115 16-24 95-148/55-72 99-100 GENERAL: Awake, alert, and fully oriented, in no acute distress. HEAD: Normal with no signs of trauma. EYES: Pupils equal, round and reactive to light, extraocular movements intact without nystagmus b/l. Sclera anicteric, conjunctiva clear b/l. EARS, NOSE, THROAT: Oropharynx clear without exudates, mild erythema. Moist mucous membranes. NECK: Normal range of motion, supple without lymphadenopathy. No JVD appreciated. LUNGS: Good inspiratory effort and air entry b/l. No wheezing, no crackles auscultated b/l. HEART: Irregular rate and rhythm. Normal S1 and S2 without murmur, rub or gallop. ABDOMEN: Soft, nontender, not distended. Normoactive bowel sounds X4 quadrants. No guarding, no rebound tenderness. No hepatomegaly appreciated. MUSCULOSKELETAL: Normal range of motion at all joints. No bony deformities or tenderness. Strength 4/5 b/l upper and lower extremities. UPPER EXTREMITIES: 2+ radial pulses b/l, warm, well-perfused. No cyanosis noted. LOWER EXTREMITIES: 2+ dorsalis pulses b/l, warm, well-perfused. No calf tenderness b/l. Trace peripheral lower extremity pitting edema b/l. NEUROLOGICAL: Cranial nerves II-XII intact. Normal speech. No gross focal deficits. PSYCHIATRIC: Cooperative. Appropriate mood and affect upon my encounter today. SKIN: Warm, dry, no rashes or lesions noted. Laboratory Results - last 24 hr 12/13/17 12/13/17 12/13/17 19:55 19:55 19:55 WBC RBC Hgb Hct MCV MCH MCHC RDW Plt Count MPV Absolute Neuts (auto) Neutrophils % Neutrophils % (Manual) Band Neutrophils % Lymphocytes % Lymphocytes % (Manual) Monocytes % Monocytes % (Manual) Eosinophils % Basophils % Nucleated RBC % Platelet Estimate PT with INR 20.90 H INR 1.76 H PTT (Actin FS) VBG pH POC VBG pCO2 POC VBG pO2 Mixed VBG HCO3 Sodium 137 Potassium 4.4 Chloride 106 Carbon Dioxide 21 Anion Gap 10 BUN 65 H Creatinine 3.9 H Creat Clearance w eGFR 11.12 POC Glucometer Random Glucose 373 H* Calcium 8.6 Phosphorus 2.7 Magnesium 1.6 L Total Bilirubin 0.4 AST 12 L ALT 18 Alkaline Phosphatase 48 Troponin I 0.51 H B-Natriuretic Peptide Total Protein 7.1 Albumin 3.4 12/13/17 12/13/17 12/13/17 19:55 19:55 20:00 WBC 7.7 RBC 3.96 Hgb 12.4 Hct 37.5 D MCV 94.7 MCH 31.3 MCHC 33.0 RDW 15.9 H Plt Count 200 D MPV 10.2 Absolute Neuts (auto) 7.2 Neutrophils % 92.8 H Neutrophils % (Manual) 90.0 H Band Neutrophils % 3.0 Lymphocytes % 5.6 L Lymphocytes % (Manual) 5.0 L D Monocytes % 1.2 L Monocytes % (Manual) 2 L D Eosinophils % 0.0 Basophils % 0.4 D Nucleated RBC % 0 Platelet Estimate Adequate PT with INR INR PTT (Actin FS) VBG pH 7.33 POC VBG pCO2 43.3 POC VBG pO2 20.2 L D Mixed VBG HCO3 22.2 Sodium Potassium Chloride Carbon Dioxide Anion Gap BUN Creatinine Creat Clearance w eGFR POC Glucometer Random Glucose Calcium Phosphorus Magnesium Total Bilirubin AST ALT Alkaline Phosphatase Troponin I B-Natriuretic Peptide 2456.8 H Total Protein Albumin 12/14/17 12/14/17 12/14/17 00:26 00:26 03:28 WBC RBC Hgb Hct MCV MCH MCHC RDW Plt Count MPV Absolute Neuts (auto) Neutrophils % Neutrophils % (Manual) Band Neutrophils % Lymphocytes % Lymphocytes % (Manual) Monocytes % Monocytes % (Manual) Eosinophils % Basophils % Nucleated RBC % Platelet Estimate PT with INR INR PTT (Actin FS) VBG pH POC VBG pCO2 POC VBG pO2 Mixed VBG HCO3 Sodium Potassium Chloride Carbon Dioxide Anion Gap BUN Creatinine Creat Clearance w eGFR POC Glucometer > [phone] Random Glucose Calcium Phosphorus Magnesium Total Bilirubin AST ALT Alkaline Phosphatase Troponin I 2.04 H* B-Natriuretic Peptide Total Protein Albumin 12/14/17 12/14/17 12/14/17 04:50 06:00 06:00 WBC 8.4 RBC 3.31 L Hgb 10.1 L Hct 31.2 L D MCV 94.4 MCH 30.7 MCHC 32.5 RDW 15.6 Plt Count 170 MPV 9.7 Absolute Neuts (auto) 5.6 Neutrophils % 66.4 D Neutrophils % (Manual) Band Neutrophils % Lymphocytes % 21.6 D Lymphocytes % (Manual) Monocytes % 11.8 H D Monocytes % (Manual) Eosinophils % 0.0 Basophils % 0.2 Nucleated RBC % 0 Platelet Estimate PT with INR INR PTT (Actin FS) 29.5 VBG pH POC VBG pCO2 POC VBG pO2 Mixed VBG HCO3 Sodium 143 Potassium 4.7 Chloride 111 H Carbon Dioxide 21 Anion Gap 11 BUN 67 H Creatinine 3.7 H Creat Clearance w eGFR 11.82 POC Glucometer Random Glucose 35 L* Calcium 8.4 L Phosphorus Magnesium Total Bilirubin 0.3 AST 11 L ALT 14 Alkaline Phosphatase 38 L Troponin I 2.24 H* B-Natriuretic Peptide Total Protein 5.8 L Albumin 2.8 L 12/14/17 12/14/17 08:47 13:14 WBC RBC Hgb Hct MCV MCH MCHC RDW Plt Count MPV Absolute Neuts (auto) Neutrophils % Neutrophils % (Manual) Band Neutrophils % Lymphocytes % Lymphocytes % (Manual) Monocytes % Monocytes % (Manual) Eosinophils % Basophils % Nucleated RBC % Platelet Estimate PT with INR INR PTT (Actin FS) VBG pH POC VBG pCO2 POC VBG pO2 Mixed VBG HCO3 Sodium Potassium Chloride Carbon Dioxide Anion Gap BUN Creatinine Creat Clearance w eGFR POC Glucometer [phone] Random Glucose Calcium Phosphorus Magnesium Total Bilirubin AST ALT Alkaline Phosphatase Troponin I B-Natriuretic Peptide Total Protein Albumin Active Medications Generic Name Dose Route Start Last Admin Trade Name Kamleshq PRN Reason Stop Dose Admin Aspirin 81 mg 12/14/17 10:00 12/14/17 11:41 Ecotrin - PO 81 mg DAILY [facility]MA Administration Atorvastatin Calcium 80 mg 12/14/17 22:00 Lipitor - PO HS [facility] Clopidogrel Bisulfate 75 mg 12/14/17 10:00 12/14/17 11:42 Plavix - PO 75 mg DAILY ERMA Administration Ferrous Sulfate 325 mg 12/14/17 10:00 12/14/17 11:41 Feosol - PO 325 mg DAILY ERMA Administration Folic Acid 1 mg 12/14/17 10:00 12/14/17 11:41 Folic Acid - PO 1 mg DAILY ERMA Administration Heparin Sodium (Porcine) 1,000 unit 12/14/17 08:25 Heparin - IVPUSH PRN PRN Heparin Heparin Sodium (Porcine) 5,000 unit 12/14/17 09:01 12/14/17 09:49 Heparin - IVPUSH 5,000 unit PRN PRN Administration Heparin Hydralazine HCl 100 mg 12/14/17 06:00 12/14/17 15:59 Apresoline - PO 100 mg TID ERMA Administration Heparin Sodium/Dextrose 25,000 units in 500 mls @ 20 mls/hr 12/14/17 09:30 09:49 Heparin Infusion - IV 1,000 units/hr TITR ERMA 20 mls/hr Administration Protocol 1,000 UNITS/HR Insulin Aspart 1 vial 12/14/17 07:00 12/14/17 13:30 Novolog Vial Sliding Scale - SQ Not Given ACHS [facility] Protocol Metoprolol Tartrate 25 mg 12/14/17 00:15 12/14/17 11:42 Lopressor - PO 25 mg BID [facility]MA Administration Nifedipine 60 mg 12/14/17 10:00 12/14/17 11:42 Procardia Xl - PO 60 mg DAILY [facility] Administration Pantoprazole Sodium 40 mg 12/14/17 10:00 12/14/17 11:42 Protonix - PO 40 mg BID [facility]MA Administration ASSESSMENT/PLAN: Patient is a 77 year old female with history significant for hypertension, diabetes, atrial fibrillation (s/p ablation, on Coumadin), left lower extremity DVT, asthma, COPD presents with complaint of chest pain and shortness of breath. NSTEMI -EKG showed -Troponins -0.51 -> 2.04 -> 2.24. Will trend to peak. -Heparin drip -Metoprolol tartrate 25mg PO BID -Plavix 75mg PO daily -Aspirin 81mg daily -Atorvastatin 80mg PO daily -F/U cardiac ECHO -F/U cardiology consult (Dr. Griffith) Afib -INR subtherapeutic at 1.76 -Coumadin 5mg PO daily DM -BGM ACHS -ISS ACHS Hypertension -Hydralazine 100mg PO TID -Imdur 60mg PO daily -Nifedipine 60mg PO daily Normocytic anemia -Reinstate ferrous sulfate 325mg PO daily -Reinstate folic acid 1mg PO daily Acute on chronic kidney disease -Creatinine today 3.7, baseline from prior admissions around 3.0 -Will trend Cr, and consider nephrology consult FEN -No IV fluids -Follow CMP -NPO Prophylaxis -Heparin drip -Coumadin 5mg PO daily -Pantoprazole 40mg PO BID Disposition -Continue care in telemetry floor. Visit type - Emergency Visit Emergency Visit: Yes ED Registration Date: 12/13/17 Care time: The patient presented to the Emergency Department on the above date and was hospitalized for further evaluation of their emergent condition. - New Patient This patient is new to me today: Yes Date on this admission: 12/14/17 - Critical Care Critical Care patient: No - Discharge Referral Referred to [facility] Med P.C.: No
--- NOTE | 2017-12-14 17:00 | CON.CARD ---
Consult Consult Specialty:: Cardiology Referred by:: ED Reason for Consultation:: Chest pain with evidence of NSTEMI - History of Present Illness Chief Complaint: Chest pain History of Present Illness: 77 year-old woman with a PMHx of HTN, DM, atrial fibrillation, s/p ablation on warfarin, advanced CKD, COPD, asthma, DVT and recent admission with dyspnea brought to ED 12/13/2017 with sudden onset SOB with chest pain. The patient was sitting on the computer when she suddenly felt short of breath associated with substernal chest pain and discomfort in her left arm and lightheadedness. EMS gave her 4 baby ASA and SL nitro as well as DuoNeb. Her chest pain lasted about 2 hours and resolved after arrived in ED. Her initial ECG showed sinus tachycardia (100 bpm) with frequent APCs without acute ST-T changes. Repeat ECG 12/14/2017 revealed normal sinus at rate of [address] and T. Troponin is elevated (2.04->2.24), BNP 2456; BNU/creat 67/ 3.7. Echo 12/14/2017: Normal LV size, wall motion, no regional wall motion abnormality. LVEF = 60%. Normal RV. Normal LA/RA in size. Mild AI/MR/TR. The patient was comfortable at the time of exam. She has no recurrent chest pain or SOB at rest. - History Source History Provided By: Patient Limitations to Obtaining History: No Limitations - Past Medical History [employer]: Yes: Peripheral Neuropathy Cardio/Vascular: Yes: AFIB, CHF, HTN, Hyperlipdemia, Other (Atrial flutter s/p ablation, PAD) Pulmonary: Yes: COPD Renal/: Yes: Renal Inusuff (stage 4), Other (Overactive Bladder) Psych: Yes: Depression Endocrine: Yes: Diabetes Mellitus (initially on oral agents, now on insulin) - Past Surgical History Past Surgical History: Yes: Colonoscopy (polyps a few years ago), Hysterectomy ( fibroids), Tubal Ligation, Upper Endoscopy (neg 1+ yrs ago) - Alcohol/Substance Use Hx Alcohol Use: No - Smoking History Smoking history: Former smoker Have you smoked in the past 12 months: No Aproximately how many cigarettes per day: 1 If you are a former smoker, when did you quit?: 2 MO AGO - Social History Usual Living Arrangement: With Child ADL: Family Assistance History of Recent Travel: No Home Medications - Allergies Allergies/Adverse Reactions: Allergies Allergy/AdvReac Type Severity Reaction Status Date / Time No Known Allergies Allergy Verified 12/13/17 18:25 - Home Medications Home Medications: Ambulatory Orders hydrALAZINE HCL [Apresoline -] 100 mg PO Q8H 01/28/17 Ferrous Sulfate 325 mg PO DAILY 02/02/17 Folic Acid 1 mg PO DAILY 12/09/17 Isosorbide Mononitrate [Isosorbide Mononitrate ER] 60 mg PO DAILY 12/09/17 Nifedipine [Nifedipine ER] 60 mg PO DAILY 12/09/17 Pantoprazole Sodium 40 mg PO BID 12/09/17 Tolterodine Tartrate 2 mg PO BID 12/09/17 Umeclidinium Brm/Vilanterol Tr [Anoro Ellipta 62.5-25 Mcg INH] 1 puff IH DAILY 12/09/17 Albuterol 2.5/Ipratropium 0.5 [Duoneb -] 1 amp NEB RQID amp 12/11/17 Budesonide/Formeterol Fumarate [SYMBICORT 160/4.5mcg -] 2 puff IH BID #1 inhaler 12/11/17 Sodium Bicarbonate - 650 mg PO BID #40 tablet 12/11/17 Warfarin Sodium [Coumadin] 5 mg PO DAILY 10 Days #10 tablet 12/11/17 predniSONE [Deltasone -] See Taper PO ASDIR 6 Days #17 tab 12/11/17 Insulin (Levemir) [Levemir Vial] 12 units SQ HS 12/14/17 Family Disease History - Family Disease History Family Disease History: Diabetes: Grandparent, Mother, Sister (lung cancer), CA : Sister Review of Systems - Review of Systems Constitutional: reports: No Symptoms Eyes: reports: No Symptoms HENT: reports: No Symptoms Neck: reports: No Symptoms Cardiovascular: reports: Chest Pain, Shortness of Breath Respiratory: reports: SOB Gastrointestinal: reports: No Symptoms Genitourinary: reports: No Symptoms Breasts: reports: No Symptoms Reported Integumentary: reports: No Symptoms Neurological: reports: No Symptoms Endocrine: reports: No Symptoms Hematology/Lymphatic: reports: No Symptoms Psychiatric: reports: No Symptoms Vital Signs: Vital Signs Temperature 98.4 F 12/14/17 15:14 Pulse Rate 62 12/14/17 15:14 Respiratory Rate 22 H 12/14/17 15:14 Blood Pressure 123/58 L 12/14/17 15:14 O2 Sat by Pulse Oximetry (%) 100 12/14/17 15:18 General: Well developed. Well nourished. No acute distress. Head: Normocephalic. Atraumatic, Eyes: PERRLA, EOMI. Sclerae anicteric. Conjunctivae clear. Neck: Supple. No JVD. No bruits. Heart: Normal S1, S2: Regular rhythm and rate. No murmur. No gallop or rub. Lungs: Symmetrical air entry. Clear to auscultation. No crackles. No wheezing or rhonchi. Abdomen: Soft. Bowel sound positive. Non tender. No masses. Extremities: Trace edema. No clubbing or cyanosis. - Other Data Labs, Other Data: CBC, BMP 12/14/17 06:00 12/14/17 06:00 INR, PTT INR 1.76 (0.83-1.09) H 12/13/17 19:55 Troponin, BNP 12/13/17 12/13/17 12/14/17 19:55 19:55 00:26 Troponin I 0.51 H 2.04 H* B-Natriuretic Peptide 2456.8 H 12/14/17 06:00 Troponin I 2.24 H* B-Natriuretic Peptide Troponin, BNP 12/13/17 12/13/17 12/14/17 19:55 19:55 00:26 Troponin I 0.51 H 2.04 H* B-Natriuretic Peptide 2456.8 H 12/14/17 06:00 Troponin I 2.24 H* B-Natriuretic Peptide Assessment/Plan 77 year-old woman with a PMHx of HTN, DM, atrial fibrillation, s/p ablation on warfarin, advanced CKD, COPD, asthma, DVT and recent admission with dyspnea brought to ED 12/13/2017 with sudden onset SOB with chest pain. Her initial ECG showed sinus tachycardia (100 bpm) with frequent APCs without acute ST-T changes. Repeat ECG 12/14/2017 revealed normal sinus at rate of [address] and T. Troponin is elevated (2.04->2.24), BNP 2456; BNU/creat 67/ 3.7. Echo 12/14/2017: Normal LV size, wall motion, no regional wall motion abnormality. LVEF = 60%. Normal RV. Normal LA/RA in size. Mild AI/MR/TR. The patient was comfortable at the time of exam. She has no recurrent chest pain or SOB at rest. 1) NSTEMI: possible due to small vessel CAD. No evidence of regional wall motion abnormalities. LV systolic function is normal. The patient is stable without recurrent angina. -Continue IV heparin. -Resume warfarin to keep INR 2-3. May discontinue heparin once INR > 2. -Continue aspirin 81 mg daily. -Would not give Plavix for long-term. -Increase metoprolol succinate to 50 mg daily. -Continue Atorvastatin 40 mg daily. -Conservative cardiac care at this time due to advance CKD. 2) Atrial fibrillation s/p ablation. Remains in sinus with frequent APCs. -Tele monitor -Increase metoprolol succinate to 50 mg daily. -Resume warfarin to keep INR 2-3.
[2017-12-14] MEDS ORDERED: WARFARIN NA 5 MG TABLET (UD) PO SCH (18:00)
[2017-12-14] MEDS ORDERED: WARFARIN NA 2.5 MG TABLET (FP) PO ONE (18:00)
[2017-12-14 18:12] LABS: INR 1.64 (0.83-1.09); PROTHROMBIN TIME (PATIENT) 19.4 SEC (9.7-13.0)
[2017-12-14] MEDS ORDERED: ATORVASTATIN CA 80 MG TABLET (FP) PO SCH (22:00)
[2017-12-14] MEDS ORDERED: INSULIN (LEVEMIR) 100 UNITS/ML UNITS SQ ONE (22:53)
[2017-12-15] MEDS: hydrALAZINE HCL 50 MG TABLET (FP) PO SCH ×3 (06:10→21:25)
[2017-12-15] MEDS: INSULIN SLIDING SCALE (NOVOLOG) 1 VIAL SQ SCH ×4 (06:10→21:27)
[2017-12-15] MEDS ORDERED: hydrALAZINE HCL 50 MG TABLET (FP) PO SCH (06:20)
[2017-12-15 07:03] LABS: HEMATOCRIT 30.9 % (32.4-45.2); HEMOGLOBIN 10.1 GM/dL (10.7-15.3); MCHC 32.6 g/dl (32.0-36.0); MEAN CELL VOLUME 94.9 fl (80-96); PLATELET COUNT 166 K/MM3 (134-434); RBC 3.26 M/mm3 (3.60-5.2); RDW 15.8 % (11.6-15.6)
[2017-12-15 07:08] LABS: ANION GAP 10 MMOL/L (8-16); BLOOD UREA NITROGEN 60 mg/dL (7-18); CALCIUM 7.8 mg/dL (8.5-10.1); CHLORIDE 109 mmol/L (98-107); CO2 22 mmol/L (21-32); CREATININE 3.5 mg/dL (0.55-1.3); GLUCOSE,RANDOM 111 mg/dL (74-106); POTASSIUM 4.4 mmol/L (3.5-5.1); SODIUM 141 mmol/L (136-145)
[2017-12-15 07:22] LABS: INR 1.6 (0.83-1.09)
[2017-12-15] MEDS: HEPARIN INFUSION - 25,000 UNITS/500 ML INFUS.BAG IV SCH (09:47)
[2017-12-15] MEDS: CLOPIDOGREL BISULFATE 75 MG TABLET (FP) PO SCH (09:48)
[2017-12-15] MEDS: PANTOPRAZOLE 40 MG TABLET (FP) PO SCH ×2 (09:48→21:25)
[2017-12-15] MEDS: NIFEdipine E.R 60 MG TABLET (UD) PO SCH (09:48)
[2017-12-15] MEDS: FOLIC ACID 1 MG TABLET (FP) PO SCH (09:48)
[2017-12-15] MEDS: FERROUS SO4 325 MG TABLET (FP) PO SCH (09:48)
[2017-12-15] MEDS: ASPIRIN COATED 81 MG TABLET.EC PO SCH (09:48)
--- NOTE | 2017-12-15 10:23 | PN ---
Progress Note, Physician History of Present Illness: seen and examined today in nad. no overnight events. no new complaints. no further chest pain. continued cough. - Current Medication List Current Medications: Active Medications Aspirin (Ecotrin -) 81 mg PO DAILY [facility] Last Admin: 12/15/17 09:48 Dose: 81 mg Atorvastatin Calcium (Lipitor -) 80 mg PO HS [facility] Last Admin: 12/14/17 21:51 Dose: 80 mg Clopidogrel Bisulfate (Plavix -) 75 mg PO DAILY [facility] Last Admin: 12/15/17 09:48 Dose: 75 mg Ferrous Sulfate (Feosol -) 325 mg PO DAILY [facility] Last Admin: 12/15/17 09:48 Dose: 325 mg Folic Acid (Folic Acid -) 1 mg PO DAILY [facility] Last Admin: 12/15/17 09:48 Dose: 1 mg Heparin Sodium (Porcine) (Heparin -) 1,000 unit IVPUSH PRN PRN PRN Reason: Heparin Heparin Sodium (Porcine) (Heparin -) 5,000 unit IVPUSH PRN PRN PRN Reason: Heparin Last Admin: 12/14/17 09:49 Dose: 5,000 unit Hydralazine HCl (Apresoline -) 100 mg PO TID [facility] Heparin Sodium/Dextrose (Heparin Infusion -) 25,000 units in 500 mls @ 20 mls/ hr IV TITR [facility]; Protocol Last Admin: 12/15/17 09:47 Dose: 600 units/hr, 12 mls/hr Insulin Aspart (Novolog Vial Sliding Scale -) 1 vial SQ ACHS [facility]; Protocol Last Admin: 12/15/17 06:10 Dose: Not Given Metoprolol Succinate (Toprol Xl -) 50 mg PO DAILY [facility] Last Admin: 12/15/17 09:48 Dose: 50 mg Nifedipine (Procardia Xl -) 60 mg PO DAILY [facility] Last Admin: 12/15/17 09:48 Dose: 60 mg Pantoprazole Sodium (Protonix -) 40 mg PO BID [facility] Last Admin: 12/15/17 09:48 Dose: 40 mg - Objective Vital Signs: Vital Signs Temperature 98.3 F 12/15/17 05:00 Pulse Rate 54 L 12/15/17 05:00 Respiratory Rate 20 12/15/17 05:00 Blood Pressure 116/45 L 12/15/17 05:00 O2 Sat by Pulse Oximetry (%) 98 12/14/17 21:00 Constitutional: Yes: Well Nourished, No Distress, Calm Eyes: Yes: Conjunctiva Clear, EOM Intact HENT: Yes: WNL, Atraumatic, Normocephalic Neck: Yes: WNL, Supple, Trachea Midline Cardiovascular: Yes: Regular Rate and Rhythm, S1, S2. No: Bradycardia, Tachycardia, Pulse Irregular, Bruit, JVD, Gallop, Murmur, Rub, S3, S4, Varicosities Respiratory: Yes: Regular, Diminished, On Nasal O2. No: Rales, Rhonchi, SOB, Wheezes Gastrointestinal: Yes: Normal Bowel Sounds, Soft. No: Distention, Tenderness Musculoskeletal: Yes: WNL Extremities: Yes: WNL Edema: No Peripheral Pulses WNL: Yes Neurological: Yes: Alert, Oriented Psychiatric: Yes: Alert, Oriented Labs: CBC, BMP 12/15/17 05:30 12/15/17 05:30 INR, PTT INR 1.60 (0.83-1.09) H 12/15/17 05:30 - ....Imaging Chest X-ray: Report Reviewed, Image Reviewed EKG: Report Reviewed, Image Reviewed Other: Report Reviewed, Image Reviewed (tele-nsr, apcs, no sig arrhythmias) Assessment/Plan 77 year-old woman with a PMHx of HTN, DM, atrial fibrillation, s/p ablation on warfarin, advanced CKD, COPD, asthma, DVT and recent admission with dyspnea brought to ED 12/13/2017 with sudden onset SOB with chest pain. Her initial ECG showed sinus tachycardia (100 bpm) with frequent APCs without acute ST-T changes. Repeat ECG 12/14/2017 revealed normal sinus at rate of [address] and T. Troponin is elevated (2.04->2.24), BNP 2456; BNU/creat 67/ 3.7. Echo 12/14/2017: Normal LV size, wall motion, no regional wall motion abnormality. LVEF = 60%. Normal RV. Normal LA/RA in size. Mild AI/MR/TR. 1) NSTEMI: possible due to small vessel CAD. No evidence of regional wall motion abnormalities. LV systolic function is normal. The patient is stable without recurrent angina. -Continue IV heparin. -warfarin to keep INR 2-3. May discontinue heparin once INR > 2. -Continue aspirin 81 mg daily given nstemi. -can dc Plavix -cont metoprolol succinate to 50 mg daily. -Continue Atorvastatin 40 mg daily. -Ideally pt would have a LHC however given her CKD she is high risk for contrast induced nephropathy and significant risk of needing HD. This was discussed with her many times including today and she does not want to take that risk. As her LV systolic function is normal, it is reasonable to pursue conservative cardiac care at this time. -other possibility of elevated troponin is a pulmonary embolism, she has been evaluated for this in the past and none was found, she is on heparin-->coumadin anyway for Afib -can consider pulmonary evaluation and consider V/Q scan if felt helpful for further evaluation 2) Atrial fibrillation s/p ablation. -Remains in sinus with frequent APCs. -Cont tele monitoring -cont metoprolol succinate 50 mg daily. -Dose warfarin to keep INR 2-3.
--- NOTE | 2017-12-15 13:11 | EKG ---
Test Reason : Blood Pressure : / mmHG Vent. Rate : 057 BPM Atrial Rate : 057 BPM P-R Int : 146 ms QRS Dur : 080 ms QT Int : 442 ms P-R-T Axes : 069 -21 058 degrees QTc Int : 430 ms SINUS BRADYCARDIA OTHERWISE NORMAL ECG WHEN COMPARED WITH ECG OF 14-DEC-2017 10:59, NO SIGNIFICANT CHANGE WAS FOUND Confirmed by MD BRIAN, YAZAN ([id number]) on 12/15/2017 1:11:03 PM Referred By: VIKTOR MAXWELL Confirmed By:YAZAN TORRES MD
--- NOTE | 2017-12-15 13:53 | CON.PULM ---
Consult Consult Specialty:: PULMONARY Referred by:: Dr. Shrestha Reason for Consultation:: shortness of breath - History of Present Illness Chief Complaint: chest pain History of Present Illness: 77yo female with h/o HTN, DM, COPD, atrial fibrillation on anticoagulation, CAD , CKD, h/o DVT, GERD who was admitted with chest pain and shortness of breath. Chest pain described as pressure like radiating to her left arm. States breathing has improved. Recently admitted for COPD exacerbation and diastolic heart failure. No nausea or vomiting. No fevers, chills or sweats. Has had prior episodes and cardiology has recommended a cardiac catheterization but has always been deferred due to her CKD. 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: Peripheral Neuropathy Cardio/Vascular: Yes: AFIB, CHF, HTN, Hyperlipdemia, Other (Atrial flutter s/p ablation, PAD) Pulmonary: Yes: COPD Renal/: Yes: Renal Inusuff (stage 4), Other (Overactive Bladder) Psych: Yes: Depression Endocrine: Yes: Diabetes Mellitus (initially on oral agents, now on insulin) - Past Surgical History Past Surgical History: Yes: Colonoscopy (polyps a few years ago), Hysterectomy ( fibroids), Tubal Ligation, Upper Endoscopy (neg 1+ yrs ago) - Alcohol/Substance Use Hx Alcohol Use: No - Smoking History Smoking history: Former smoker Have you smoked in the past 12 months: No Aproximately how many cigarettes per day: 1 If you are a former smoker, when did you quit?: 1 year ago - Social History Usual Living Arrangement: With Child ADL: Family Assistance History of Recent Travel: No Home Medications - Allergies Allergies/Adverse Reactions: Allergies Allergy/AdvReac Type Severity Reaction Status Date / Time No Known Allergies Allergy Verified 12/13/17 18:25 - Home Medications Home Medications: Ambulatory Orders hydrALAZINE HCL [Apresoline -] 100 mg PO Q8H 01/28/17 Ferrous Sulfate 325 mg PO DAILY 02/02/17 Folic Acid 1 mg PO DAILY 12/09/17 Isosorbide Mononitrate [Isosorbide Mononitrate ER] 60 mg PO DAILY 12/09/17 Nifedipine [Nifedipine ER] 60 mg PO DAILY 12/09/17 Pantoprazole Sodium 40 mg PO BID 12/09/17 Tolterodine Tartrate 2 mg PO BID 12/09/17 Umeclidinium Brm/Vilanterol Tr [Anoro Ellipta 62.5-25 Mcg INH] 1 puff IH DAILY 12/09/17 Albuterol 2.5/Ipratropium 0.5 [Duoneb -] 1 amp NEB RQID amp 12/11/17 Budesonide/Formeterol Fumarate [SYMBICORT 160/4.5mcg -] 2 puff IH BID #1 inhaler 12/11/17 Sodium Bicarbonate - 650 mg PO BID #40 tablet 12/11/17 Warfarin Sodium [Coumadin] 5 mg PO DAILY 10 Days #10 tablet 12/11/17 predniSONE [Deltasone -] See Taper PO ASDIR 6 Days #17 tab 12/11/17 Insulin (Levemir) [Levemir Vial] 12 units SQ HS 12/14/17 Family Disease History - Family Disease History Family Disease History: Diabetes: Grandparent, Mother, Sister (lung cancer), [place] : Sister Review of Systems - Review of Systems Constitutional: reports: Weakness. denies: Chills, Fever Eyes: denies: Recent Change in Vision HENT: denies: Throat Pain, Ringing in Ears Neck: denies: Stiffness, Tenderness Cardiovascular: reports: Chest Pain, Shortness of Breath. denies: Edema, Palpitations Respiratory: reports: Cough, SOB. denies: Hemoptysis, Wheezing Gastrointestinal: denies: Abdominal Pain, Nausea, Vomiting Genitourinary: denies: Dysuria, Hematuria Neurological: reports: Dizziness. denies: Headache Endocrine: denies: Unexplained Weight Loss Physical Exam Vital Sings: Vital Signs Temperature 97.3 F L 12/15/17 09:00 Pulse Rate 67 12/15/17 12:11 Respiratory Rate 20 12/15/17 09:00 Blood Pressure 129/49 L 12/15/17 09:00 O2 Sat by Pulse Oximetry (%) 97 12/15/17 12:11 Constitutional: Yes: Calm Eyes: Yes: Conjunctiva Clear, EOM Intact HENT: Yes: Atraumatic, Normocephalic Neck: Yes: Supple, Trachea Midline Cardiovascular: Yes: Pulse Irregular Respiratory: Yes: Diminished (distant breath sounds) ...Clubbing: No Gastrointestinal: Yes: Normal Bowel Sounds, Soft. No: Tenderness Edema: No Labs: CBC, BMP 12/15/17 05:30 12/15/17 05:30 Imaging - Results Chest X-ray: Report Reviewed, Image Reviewed (no infiltrates) Problem List - Problems (1) NSTEMI (non-ST elevated myocardial infarction) Code(s): I21.4 - NON-ST ELEVATION (NSTEMI) MYOCARDIAL INFARCTION (2) Shortness of breath Code(s): R06.02 - SHORTNESS OF BREATH (3) Afib Code(s): I48.91 - UNSPECIFIED ATRIAL FIBRILLATION (4) CKD (chronic kidney disease) Code(s): N18.9 - CHRONIC KIDNEY DISEASE, UNSPECIFIED (5) COPD (chronic obstructive pulmonary disease) Code(s): J44.9 - CHRONIC OBSTRUCTIVE PULMONARY DISEASE, UNSPECIFIED Qualifiers: COPD type: chronic bronchitis (6) Diastolic CHF Code(s): I50.30 - UNSPECIFIED DIASTOLIC (CONGESTIVE) HEART FAILURE Qualifiers: Heart failure chronicity: chronic Qualified Code(s): I50.32 - Chronic diastolic (congestive) heart failure (7) CAD (coronary artery disease) Code(s): I25.10 - ATHSCL HEART DISEASE OF [place] CORONARY ARTERY W/O ANG PCTRS (8) History of DVT (deep vein thrombosis) Code(s): Z86.718 - PERSONAL HISTORY OF OTHER VENOUS THROMBOSIS AND EMBOLISM Assessment/Plan Acute NSTEMI LV Diastolic Dysfunction Pulmonary HTN Atrial Fibrillation COPD CKD h/o DVT HTN DM - continue anticoagulation - ASA, plavix - beta kath, statin - O2 as needed - inhaled bronchodilators - can defer systemic steroids at this time - 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
--- NOTE | 2017-12-15 15:13 | PN ---
Physical Exam: SUBJECTIVE: Patient seen and examined at bedside this morning. She denies any acute complaints this morning. Denies chest pain, palpitations, shortness of breath, lightheadedness, abdominal pain, nausea, vomiting, diarrhea OBJECTIVE: Vital Signs Temperature 97.4 F L 12/15/17 14:31 Pulse Rate 56 L 12/15/17 14:31 Respiratory Rate 20 12/15/17 14:31 Blood Pressure 128/48 L 12/15/17 14:31 O2 Sat by Pulse Oximetry (%) 98 12/15/17 13:00 GENERAL: Awake, alert, and fully oriented, in no acute distress. HEAD: Normal with no signs of trauma. EYES: Pupils equal, round and reactive to light, extraocular movements intact without nystagmus b/l. Sclera anicteric, conjunctiva clear b/l. EARS, NOSE, THROAT: Oropharynx clear without exudates, mild erythema. Moist mucous membranes. NECK: Normal range of motion, supple without lymphadenopathy. No JVD appreciated. LUNGS: Good inspiratory effort and air entry b/l. No wheezing, no crackles auscultated b/l. HEART: Irregular rate and rhythm. Normal S1 and S2 without murmur, rub or gallop. ABDOMEN: Soft, nontender, not distended. Normoactive bowel sounds X4 quadrants. No guarding, no rebound tenderness. No hepatomegaly appreciated. MUSCULOSKELETAL: Normal range of motion at all joints. No bony deformities or tenderness. Strength 4/5 b/l upper and lower extremities. UPPER EXTREMITIES: 2+ radial pulses b/l, warm, well-perfused. No cyanosis noted. LOWER EXTREMITIES: 2+ dorsalis pulses b/l, warm, well-perfused. No calf tenderness b/l. Trace peripheral lower extremity pitting edema b/l. NEUROLOGICAL: Cranial nerves II-XII intact. Normal speech. No gross focal deficits. PSYCHIATRIC: Cooperative. Appropriate mood and affect upon my encounter today. SKIN: Warm, dry, no rashes or lesions noted. Laboratory Results - last 24 hr 12/15/17 12/15/17 12/15/17 05:30 05:30 05:30 WBC 7.0 RBC 3.26 L Hgb 10.1 L Hct 30.9 L MCV 94.9 MCH 31.0 MCHC 32.6 RDW 15.8 H Plt Count 166 MPV 10.0 PT with INR 19.00 H INR 1.60 H PTT (Actin FS) 89.5 H Sodium Potassium Chloride Carbon Dioxide Anion Gap BUN Creatinine Creat Clearance w eGFR POC Glucometer Random Glucose Calcium Troponin I 12/15/17 12/15/17 12/15/17 05:30 06:04 11:22 WBC RBC Hgb Hct MCV MCH MCHC RDW Plt Count MPV PT with INR INR PTT (Actin FS) Sodium 141 Potassium 4.4 Chloride 109 H Carbon Dioxide 22 Anion Gap 10 BUN 60 H Creatinine 3.5 H Creat Clearance w eGFR 12.60 POC Glucometer 115 157 Random Glucose 111 H Calcium 7.8 L Troponin I Active Medications Generic Name Dose Route Start Last Admin Trade Name Freq PRN Reason Stop Dose Admin Aspirin 81 mg 12/14/17 10:00 12/15/17 09:48 Ecotrin - PO 81 mg DAILY ERMA Administration Atorvastatin Calcium 80 mg 12/14/17 22:00 12/14/17 21:51 Lipitor - PO 80 mg HS ERMA Administration Clopidogrel Bisulfate 75 mg 12/14/17 10:00 12/15/17 09:48 Plavix - PO 75 mg DAILY ERMA Administration Ferrous Sulfate 325 mg 12/14/17 10:00 12/15/17 09:48 Feosol - PO 325 mg DAILY ERMA Administration Folic Acid 1 mg 12/14/17 10:00 12/15/17 09:48 Folic Acid - PO 1 mg DAILY ERMA Administration Heparin Sodium (Porcine) 1,000 unit 12/14/17 08:25 Heparin - IVPUSH PRN PRN Heparin Heparin Sodium (Porcine) 5,000 unit 12/14/17 09:01 12/14/17 09:49 Heparin - IVPUSH 5,000 unit PRN PRN Administration Heparin Hydralazine HCl 50 mg 12/15/17 11:17 12/15/17 14:47 Apresoline - PO 50 mg TID ERMA Administration Heparin Sodium/Dextrose 25,000 units in 500 mls @ 20 mls/hr 12/14/17 09:30 09:47 Heparin Infusion - IV 600 units/hr TITR ERMA 12 mls/hr Administration Protocol 1,000 UNITS/HR Insulin Aspart 1 vial 12/14/17 07:00 12/15/17 11:45 Novolog Vial Sliding Scale - SQ 2 units ACHS ERMA Administration Protocol Metoprolol Succinate 50 mg 12/15/17 10:00 12/15/17 09:48 Toprol Xl - PO 50 mg DAILY ERMA Administration Nifedipine 60 mg 12/14/17 10:00 12/15/17 09:48 Procardia Xl - PO 60 mg DAILY ERMA Administration Pantoprazole Sodium 40 mg 12/14/17 10:00 12/15/17 09:48 Protonix - PO 40 mg BID ERMA Administration IMAGING: EKG upon admission showed sinus tachycardia with premature atrial complexes. Cardiac ECHO shows LV normal in size, and function. EF 60-65%. RV systolic function normal. Mild MR, TR, , AR. ASSESSMENT/PLAN: Patient is a 77 year old female with history significant for hypertension, diabetes, atrial fibrillation (s/p ablation, on Coumadin), left lower extremity DVT, asthma, COPD presents with complaint of chest pain and shortness of breath. NSTEMI -Troponins -0.51 -> 2.04 -> 2.24 -> 1.52 -Heparin drip, will continue until INR therapeutic. -Metoprolol tartrate switched to metoprolol succinate 50mg PO daily with cardiology recommendation. -Plavix discontinued with cardiology recommendation -Aspirin 81mg daily -Atorvastatin 80mg PO daily -Cardiology consult (Dr. Griffith) appreciated. No left heart catheterization as risks of contrast induced nephropathy outweigh the benefits. Will continue conservative management. Afib -INR subtherapeutic at 1.60 -Coumadin increased to 7.5mg PO tonight (dosed with pharmacy recommendation) -Will follow PT/INR. Goal 2-3. DM -BGM ACHS -ISS ACHS Hypertension -Hydralazine 100mg PO TID -Imdur 60mg PO daily -Nifedipine 60mg PO daily Normocytic anemia -Ferrous sulfate 325mg PO daily -Folic acid 1mg PO daily Acute on chronic kidney disease -Creatinine today 3.5, baseline from prior admissions around 3.0 -Will trend Cr, and consider nephrology consult FEN -No IV fluids -Follow CMP -Diabetic sodium, renal controlled diet Prophylaxis -Heparin drip -Coumadin 7.5mg PO tonight -Pantoprazole 40mg PO BID Disposition -Continue care in telemetry floor. Visit type - Emergency Visit Emergency Visit: Yes ED Registration Date: 12/13/17 Care time: The patient presented to the Emergency Department on the above date and was hospitalized for further evaluation of their emergent condition. - New Patient This patient is new to me today: No - Critical Care Critical Care patient: No - Discharge Referral Referred to [facility] Med [facility] No
[2017-12-15] MEDS ORDERED: INSULIN (NOVOLOG) ASPART 100 UNITS/ML 10ML VIAL ONE (17:21)
[2017-12-15] MEDS ORDERED: WARFARIN NA 7.5 MG TABLET (FP) PO ONE (18:00)
--- NOTE | 2017-12-15 18:38 | PN ---
Teaching Attending Note Name of Resident: Raquel Crisostomo ATTENDING PHYSICIAN STATEMENT I saw and evaluated the patient. I reviewed the resident's note and discussed the case with the resident. I agree with the resident's findings and plan as documented. SUBJECTIVE: OBJECTIVE: ASSESSMENT AND PLAN:
--- NOTE | 2017-12-15 18:43 | PN ---
Teaching Attending Note Name of Resident: Raquel Crisostomo ATTENDING PHYSICIAN STATEMENT I saw and evaluated the patient. I reviewed the resident's note and discussed the case with the resident. I agree with the resident's findings and plan as documented. SUBJECTIVE: No further chest pain; no new complaints. She is doing well. Opted for conservative tx for her CAD. Appreciate CV input. Denies SOB, etc. VQ was recommended but pulmonary states that it would not change the overall management as she is already being anticoagulated. OBJECTIVE: Negative tele for acute worrisome findings VSS, labs followed NAD, AAOx3, in bed No JVD, irregular rhythm reg. rate. 2/6 systolic murmur NT ND +BS ASSESSMENT AND PLAN: 1) NSTEMI: Likely due to small vessel ischemic disease. Management ultimately deferred to CV. Continue ASA, hep drip, statin, BB, plavix (was loaded) but plavix was not recommended in CV note for [facility] management. Will discuss when to stop with their service. She chose to defer interventional management and is a poor candidate due to her advanced CKD so will go ahead and monitor and manage conservatively. Repeat ECG 12/14/2017 revealed normal sinus at rate of [address] and T. Troponin is elevated (2.04->2.24), BNP 2456 Echo 12/14/2017: Normal LV size, wall motion, no regional wall motion abnormality. LVEF = 60%. Normal RV. Normal LA/RA in size. Mild AI/MR/TR. 2) HTN: Continue current meds; <160 is goal inpatient. 3) HLD: Continue statin 4) A fib: Rate is controlled; continuing coumadin and bridging to therepeutic. Increased Met Suc to 50 QD 5) CKD: Trend BMP; at baseline renal function 6) DM: Continue home meds; has them adjusted at recent visit here.
[2017-12-15] MEDS: ATORVASTATIN CA 40 MG TABLET (FP) PO SCH (21:25)
[2017-12-16] MEDS: hydrALAZINE HCL 50 MG TABLET (FP) PO SCH ×3 (06:10→23:04)
[2017-12-16] MEDS: INSULIN SLIDING SCALE (NOVOLOG) 1 VIAL SQ SCH ×4 (06:12→23:03)
[2017-12-16 07:39] LABS: ANION GAP 10 MMOL/L (8-16); BLOOD UREA NITROGEN 57 mg/dL (7-18); CHLORIDE 112 mmol/L (98-107); CO2 22 mmol/L (21-32); CREATININE 3.5 mg/dL (0.55-1.3); GLUCOSE,RANDOM 154 mg/dL (74-106); POTASSIUM 4.8 mmol/L (3.5-5.1); SODIUM 143 mmol/L (136-145)
[2017-12-16 08:42] LABS: INR 1.27 (0.83-1.09)
[2017-12-16 08:43] LABS: ACTIVATED PTT 50.3 SECONDS (25.2-36.5)
[2017-12-16] MEDS: HEPARIN INFUSION - 25,000 UNITS/500 ML INFUS.BAG IV SCH (09:30)
[2017-12-16] MEDS ORDERED: PT OWN MED DRAWER 7, Y5N ONE ×2 (09:42→23:15)
[2017-12-16] MEDS: ASPIRIN COATED 81 MG TABLET.EC PO SCH (09:46)
[2017-12-16] MEDS: FERROUS SO4 325 MG TABLET (FP) PO SCH (09:47)
[2017-12-16] MEDS: NIFEdipine E.R 60 MG TABLET (UD) PO SCH (09:47)
[2017-12-16] MEDS: PANTOPRAZOLE 40 MG TABLET (FP) PO SCH ×2 (09:47→23:05)
[2017-12-16] MEDS: FOLIC ACID 1 MG TABLET (FP) PO SCH (09:47)
[2017-12-16 10:43] LABS: HEMOGLOBIN 10.3 GM/dL (10.7-15.3); MCH 30.2 pg (25.7-33.7); MCHC 31.2 g/dl (32.0-36.0); MEAN CELL VOLUME 96.8 fl (80-96); MEAN PLT VOLUME 10.2 fl (7.5-11.1); PLATELET COUNT 171 K/MM3 (134-434); RBC 3.41 M/mm3 (3.60-5.2); RDW 16.1 % (11.6-15.6); WHITE BLOOD COUNT 6.2 K/mm3 (4.0-10.0)
--- NOTE | 2017-12-16 11:13 | PN ---
Progress Note, Physician History of Present Illness: pulmonary alert,less dyspneic on nasal cannula - Current Medication List Current Medications: Active Medications Aspirin (Ecotrin -) 81 mg PO DAILY [facility] Last Admin: 12/16/17 09:46 Dose: 81 mg Atorvastatin Calcium (Lipitor -) 40 mg PO HS [facility] Last Admin: 12/15/17 21:25 Dose: 40 mg Ferrous Sulfate (Feosol -) 325 mg PO DAILY [facility] Last Admin: 12/16/17 09:47 Dose: 325 mg Folic Acid (Folic Acid -) 1 mg PO DAILY [facility] Last Admin: 12/16/17 09:47 Dose: 1 mg Heparin Sodium (Porcine) (Heparin -) 1,000 unit IVPUSH PRN PRN PRN Reason: Heparin Heparin Sodium (Porcine) (Heparin -) 5,000 unit IVPUSH PRN PRN PRN Reason: Heparin Last Admin: 12/14/17 09:49 Dose: 5,000 unit Hydralazine HCl (Apresoline -) 50 mg PO TID [facility] Last Admin: 12/16/17 06:10 Dose: 50 mg Heparin Sodium/Dextrose (Heparin Infusion -) 25,000 units in 500 mls @ 20 mls/ hr IV TITR [facility]; Protocol Last Admin: 12/15/17 09:47 Dose: 600 units/hr, 12 mls/hr Insulin Aspart (Novolog Vial Sliding Scale -) 1 vial SQ ACHS [facility]; Protocol Last Admin: 12/16/17 06:12 Dose: Not Given Metoprolol Succinate (Toprol Xl -) 50 mg PO DAILY [facility] Last Admin: 12/16/17 09:47 Dose: 50 mg Nifedipine (Procardia Xl -) 60 mg PO DAILY [facility] Last Admin: 12/16/17 09:47 Dose: 60 mg Pantoprazole Sodium (Protonix -) 40 mg PO BID [facility] Last Admin: 12/16/17 09:47 Dose: 40 mg - Objective Vital Signs: Vital Signs Temperature 98.2 F 12/16/17 09:17 Pulse Rate 63 12/16/17 09:17 Respiratory Rate 20 12/16/17 09:17 Blood Pressure 135/54 L 12/16/17 09:17 O2 Sat by Pulse Oximetry (%) 99 12/15/17 20:57 Constitutional: Yes: Well Nourished, Calm Eyes: Yes: WNL HENT: Yes: WNL Neck: Yes: WNL Cardiovascular: Yes: Pulse Irregular, S1, S2 Respiratory: Yes: Rales (bibasilar crackles) Gastrointestinal: Yes: Normal Bowel Sounds, Soft Extremities: Yes: WNL Edema: No Labs: CBC, BMP 12/16/17 09:45 12/16/17 06:30 INR, PTT INR 1.27 (0.83-1.09) H 12/16/17 06:30 Assessment/Plan Problem List - Problems (1) NSTEMI (non-ST elevated myocardial infarction) Code(s): I21.4 - NON-ST ELEVATION (NSTEMI) MYOCARDIAL INFARCTION (2) Shortness of breath Code(s): R06.02 - SHORTNESS OF BREATH (3) Afib Code(s): I48.91 - UNSPECIFIED ATRIAL FIBRILLATION (4) CKD (chronic kidney disease) Code(s): N18.9 - CHRONIC KIDNEY DISEASE, UNSPECIFIED (5) COPD (chronic obstructive pulmonary disease) Code(s): J44.9 - CHRONIC OBSTRUCTIVE PULMONARY DISEASE, UNSPECIFIED Qualifiers: COPD type: chronic bronchitis (6) Diastolic CHF Code(s): I50.30 - UNSPECIFIED DIASTOLIC (CONGESTIVE) HEART FAILURE Qualifiers: Heart failure chronicity: chronic Qualified Code(s): I50.32 - Chronic diastolic (congestive) heart failure (7) CAD (coronary artery disease) Code(s): I25.10 - ATHSCL HEART DISEASE OF [place] CORONARY ARTERY W/O ANG PCTRS (8) History of DVT (deep vein thrombosis) Code(s): Z86.718 - PERSONAL HISTORY OF OTHER VENOUS THROMBOSIS AND EMBOLISM Assessment/Plan Acute NSTEMI LV Diastolic Dysfunction Pulmonary HTN Atrial Fibrillation COPD CKD h/o DVT HTN DM - continue anticoagulation - ASA, plavix - beta kath, statin - O2 as needed - inhaled bronchodilators DR GOULD
--- NOTE | 2017-12-16 14:52 | PN ---
Teaching Attending Note Name of Resident: Ibrahima Reilly ATTENDING PHYSICIAN STATEMENT I saw and evaluated the patient. I reviewed the resident's note and discussed the case with the resident. I agree with the resident's findings and plan as documented with exceptions below. SUBJECTIVE: Patient seen and examined. no further chest pain, denies any dyspnea, overall feels better. OBJECTIVE: Vital Signs Period Temp Pulse Resp BP Sys/Renee Pulse Ox Last 24 Hr 97.6 F-98.8 F 60-69 18-22 114-152/48-64 98-99 Intake & Output 12/13/17 12/14/17 12/15/17 12/16/17 23:59 23:59 23:59 23:59 Intake Total 820 1330 264 Balance 820 1330 264 Weight 190 lb 190 lb 188 lb 12.8 oz 188 lb 3.2 oz General: sitting in bed in no acute distress CVS;S1S2 irregular Chest: CTAB, no rales or wheezing Abdomen: soft, obese, NT Extremities: no edema Home Medications Medication Instructions Recorded hydrALAZINE HCL [Apresoline -] 100 mg PO Q8H 01/28/17 Ferrous Sulfate 325 mg PO DAILY 02/02/17 Folic Acid 1 mg PO DAILY 12/09/17 Isosorbide Mononitrate [Isosorbide 60 mg PO DAILY 12/09/17 Mononitrate ER] Nifedipine [Nifedipine ER] 60 mg PO DAILY 12/09/17 Pantoprazole Sodium 40 mg PO BID 12/09/17 Tolterodine Tartrate 2 mg PO BID 12/09/17 Umeclidinium Brm/Vilanterol Tr 1 puff IH DAILY 12/09/17 [Anoro Ellipta 62.5-25 Mcg INH] Albuterol 2.5/Ipratropium 0.5 1 amp NEB RQID amp 12/11/17 [Duoneb -] Budesonide/Formeterol Fumarate 2 puff IH BID #1 inhaler 12/11/17 [SYMBICORT 160/4.5mcg -] Sodium Bicarbonate - 650 mg PO BID #40 tablet 12/11/17 Warfarin Sodium [Coumadin] 5 mg PO DAILY 10 Days #10 tablet 12/11/17 predniSONE [Deltasone -] See Taper PO ASDIR 6 Days #17 tab 12/11/17 Insulin (Levemir) [Levemir Vial] 20 units SQ HS 12/14/17 Warfarin Sodium [Coumadin] 6 mg PO BID 12/15/17 Active Medications Aspirin (Ecotrin -) 81 mg PO DAILY [facility] Last Admin: 12/16/17 09:46 Dose: 81 mg Atorvastatin Calcium (Lipitor -) 40 mg PO HS [facility] Last Admin: 12/15/17 21:25 Dose: 40 mg Ferrous Sulfate (Feosol -) 325 mg PO DAILY [facility] Last Admin: 12/16/17 09:47 Dose: 325 mg Folic Acid (Folic Acid -) 1 mg PO DAILY [facility] Last Admin: 12/16/17 09:47 Dose: 1 mg Heparin Sodium (Porcine) (Heparin -) 1,000 unit IVPUSH PRN PRN PRN Reason: Heparin Heparin Sodium (Porcine) (Heparin -) 5,000 unit IVPUSH PRN PRN PRN Reason: Heparin Last Admin: 12/14/17 09:49 Dose: 5,000 unit Hydralazine HCl (Apresoline -) 50 mg PO TID [facility] Last Admin: 12/16/17 06:10 Dose: 50 mg Heparin Sodium/Dextrose (Heparin Infusion -) 25,000 units in 500 mls @ 20 mls/ hr IV TITR [facility]; Protocol Last Admin: 12/16/17 09:30 Dose: 600 units/hr, 12 mls/hr Insulin Aspart (Novolog Vial Sliding Scale -) 1 vial SQ ACHS [facility]; Protocol Last Admin: 12/16/17 11:55 Dose: 4 units Metoprolol Succinate (Toprol Xl -) 50 mg PO DAILY [facility] Last Admin: 12/16/17 09:47 Dose: 50 mg Nifedipine (Procardia Xl -) 60 mg PO DAILY [facility] Last Admin: 12/16/17 09:47 Dose: 60 mg Pantoprazole Sodium (Protonix -) 40 mg PO BID [facility] Last Admin: 12/16/17 09:47 Dose: 40 mg Warfarin Sodium (Coumadin -) 7.5 mg PO DAILY@1800 [facility] Laboratory Results - last 24 hr 12/15/17 12/15/17 12/15/17 15:00 17:03 21:23 WBC RBC Hgb Hct MCV MCH MCHC RDW Plt Count MPV PT with INR INR PTT (Actin FS) 54.7 H Sodium Potassium Chloride Carbon Dioxide Anion Gap BUN Creatinine Creat Clearance w eGFR POC Glucometer 271 203 Random Glucose Calcium 12/16/17 12/16/17 12/16/17 06:08 06:30 06:30 WBC RBC Hgb Hct MCV MCH MCHC RDW Plt Count MPV PT with INR 15.00 H INR 1.27 H PTT (Actin FS) Cancelled 50.3 H Sodium Potassium Chloride Carbon Dioxide Anion Gap BUN Creatinine Creat Clearance w eGFR POC Glucometer 147 Random Glucose Calcium 12/16/17 12/16/17 12/16/17 06:30 09:45 11:27 WBC 6.2 RBC 3.41 L Hgb 10.3 L Hct 33.0 MCV 96.8 H MCH 30.2 MCHC 31.2 L RDW 16.1 H Plt Count 171 MPV 10.2 PT with INR INR PTT (Actin FS) Sodium 143 Potassium 4.8 Chloride 112 H Carbon Dioxide 22 Anion Gap 10 BUN 57 H Creatinine 3.5 H Creat Clearance w eGFR 12.60 POC Glucometer 232 Random Glucose 154 H Calcium 8.0 L 2D echo results reviewed ASSESSMENT AND PLAN: 77 yof with PMHx of Danette randhawa (currently on Coumadin), DM, HTN, COPD, Asthma, DVT, [place] s/p cardiac cath, CKD, LLE DVT, GERD admitted with chest pain, NSTEMi and subtherapeutic INR. -NSTEMI -CKD stage IV (baseline Cr 3.5-3.7) -Afib s/p ablation on coumadin -Subtherapeutic INR -COPD/Asthma - h/o LLE DVT -HTN -IDDM -GERD Plan: Cardiology/pulmonary input noted. 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 Patient improved and stable clinically. Heparin drip, coumadin 7.5 mg daily for now, Dc heparin when INR 2-3. OFfered cardiac cath but patient declined given risk of contrast induced nephropathy and possible need for HD. medical management with ASA/statin/metoprolol/nifedipine. Resume imdur. Resume symbicort, prn nebs. No indication for steroids. ISS, diabetic diet, resume Levemir based on blood sugar readings. DVTPPX as above PT eval and home oxygen needs assessment. Dispo d/c home when INR therapeutic and continues to improve Plan discussed with patient patient in detail, all questions answered.
[2017-12-16] MEDS ORDERED: ALBUTEROL SO4 2.5/IPRATROPIUM 0.5 INH SOL 3 ML VIAL.NEB. NEB PRN (14:59)
[2017-12-16] MEDS ORDERED: PATIENT'S OWN MEDICATION (NON-FORMULARY) (Umeclidinium Brm/Vilanterol Tr [Anoro Ellipta 62 IH SCH (15:00)
--- NOTE | 2017-12-16 15:06 | PN ---
Progress Note, Physician History of Present Illness: seen and examined today in nad. off supp O2, mild dyspnea, no chest pain, no new complaints. - Current Medication List Current Medications: Active Medications Albuterol/Ipratropium (Duoneb -) 1 amp NEB Q4H PRN PRN Reason: SHORTNESS OF BREATH Aspirin (Ecotrin -) 81 mg PO DAILY [facility] Last Admin: 12/16/17 09:46 Dose: 81 mg Atorvastatin Calcium (Lipitor -) 40 mg PO HS [facility] Last Admin: 12/15/17 21:25 Dose: 40 mg Budesonide/Formoterol Fumarate (Symbicort 160/4.5mcg -) 2 puff IH BID [facility] Ferrous Sulfate (Feosol -) 325 mg PO DAILY [facility] Last Admin: 12/16/17 09:47 Dose: 325 mg Folic Acid (Folic Acid -) 1 mg PO DAILY [facility] Last Admin: 12/16/17 09:47 Dose: 1 mg Heparin Sodium (Porcine) (Heparin -) 1,000 unit IVPUSH PRN PRN PRN Reason: Heparin Heparin Sodium (Porcine) (Heparin -) 5,000 unit IVPUSH PRN PRN PRN Reason: Heparin Last Admin: 12/14/17 09:49 Dose: 5,000 unit Hydralazine HCl (Apresoline -) 50 mg PO TID [facility] Last Admin: 12/16/17 06:10 Dose: 50 mg Heparin Sodium/Dextrose (Heparin Infusion -) 25,000 units in 500 mls @ 20 mls/ hr IV TITR [facility]; Protocol Last Admin: 12/16/17 09:30 Dose: 600 units/hr, 12 mls/hr Insulin Aspart (Novolog Vial Sliding Scale -) 1 vial SQ ACHS [facility]; Protocol Last Admin: 12/16/17 11:55 Dose: 4 units Isosorbide Mononitrate (Imdur -) 60 mg PO DAILY [facility] Metoprolol Succinate (Toprol Xl -) 50 mg PO DAILY [facility] Last Admin: 12/16/17 09:47 Dose: 50 mg Nifedipine (Procardia Xl -) 60 mg PO DAILY [facility] Last Admin: 12/16/17 09:47 Dose: 60 mg Non-Formulary Medication (Umeclidinium Brm/Vilanterol Tr [Anoro Ellipta 62.5-25 Mcg Inh]) 1 puff IH DAILY [facility] Pantoprazole Sodium (Protonix -) 40 mg PO BID [facility] Last Admin: 12/16/17 09:47 Dose: 40 mg Warfarin Sodium (Coumadin -) 7.5 mg PO DAILY@1800 [facility] - Objective Vital Signs: Vital Signs Temperature 98.4 F 12/16/17 14:00 Pulse Rate 63 12/16/17 14:00 Respiratory Rate 20 12/16/17 14:00 Blood Pressure 114/48 L 12/16/17 14:00 O2 Sat by Pulse Oximetry (%) 98 12/16/17 14:33 Constitutional: Yes: No Distress, Calm Eyes: Yes: Conjunctiva Clear, EOM Intact HENT: Yes: Atraumatic, Normocephalic Neck: Yes: Supple, Trachea Midline Cardiovascular: Yes: Regular Rate and Rhythm, S1, S2. No: Bradycardia, Tachycardia, Pulse Irregular, Bruit, JVD, Gallop, Murmur, Rub, S3, S4, Varicosities Respiratory: Yes: Regular, SOB. No: Rales, Rhonchi, Wheezes Gastrointestinal: Yes: Normal Bowel Sounds, Soft. No: Distention, Tenderness Musculoskeletal: Yes: WNL Extremities: Yes: WNL Edema: No Peripheral Pulses WNL: Yes Neurological: Yes: Alert, Oriented Psychiatric: Yes: Alert, Oriented Labs: CBC, BMP 12/16/17 09:45 12/16/17 06:30 INR, PTT INR 1.27 (0.83-1.09) H 12/16/17 06:30 - ....Imaging Chest X-ray: Report Reviewed, Image Reviewed EKG: Report Reviewed, Image Reviewed Other: Report Reviewed, Image Reviewed (tele-nsr, pvcs, 4 beats nsvt, brief psvt ) Assessment/Plan 77 year-old woman with a PMHx of HTN, DM, atrial fibrillation, s/p ablation on warfarin, advanced CKD, COPD, asthma, DVT and recent admission with dyspnea brought to ED 12/13/2017 with sudden onset SOB with chest pain. Her initial ECG showed sinus tachycardia (100 bpm) with frequent APCs without acute ST-T changes. Repeat ECG 12/14/2017 revealed normal sinus at rate of [address] and T. Troponin is elevated (2.04->2.24), BNP 2456; BNU/creat 67/ 3.7. Echo 12/14/2017: Normal LV size, wall motion, no regional wall motion abnormality. LVEF = 60%. Normal RV. Normal LA/RA in size. Mild AI/MR/TR. 1) NSTEMI: possible due to small vessel CAD. No evidence of regional wall motion abnormalities. LV systolic function is normal. The patient is stable without recurrent angina. -heparin gtt bridge to warfarin to keep INR 2-3. May discontinue heparin once INR > 2. -Continue aspirin 81 mg daily given nstemi. -cont metoprolol succinate 50 mg daily. -Cont Atorvastatin 40 mg daily. -agree with restarting Imdur -Ideally pt would have a LHC however given her CKD she is high risk for contrast induced nephropathy and significant risk of needing HD. This was discussed with her many times including today and she does not want to take that risk. As her LV systolic function is normal, it is reasonable to pursue conservative cardiac care at this time. -pulm evaluation appreciated no benefit to V/Q as has indication for full AC due to afib 2) Atrial fibrillation s/p ablation. -Remains in sinus with APCs brief psvt -cont metoprolol succinate 50 mg daily. -Dose warfarin to keep INR 2-3.
--- NOTE | 2017-12-16 15:41 | PN ---
Physical Exam: SUBJECTIVE: Patient seen and examined at bedside this morning. She denies any acute complaints this morning. Denies chest pain, palpitations, shortness of breath, lightheadedness, abdominal pain, nausea, vomiting, diarrhea OBJECTIVE: Vital Signs Temperature 98.4 F 12/16/17 14:00 Pulse Rate 63 12/16/17 14:00 Respiratory Rate 20 12/16/17 14:00 Blood Pressure 114/48 L 12/16/17 14:00 O2 Sat by Pulse Oximetry (%) 98 12/16/17 14:33 GENERAL: Awake, alert, and fully oriented, in no acute distress. HEAD: Normal with no signs of trauma. EYES: Pupils equal, round and reactive to light, extraocular movements intact without nystagmus b/l. Sclera anicteric, conjunctiva clear b/l. EARS, NOSE, THROAT: Oropharynx clear without exudates, mild erythema. Moist mucous membranes. NECK: Normal range of motion, supple without lymphadenopathy. No JVD appreciated. LUNGS: Good inspiratory effort and air entry b/l. No wheezing, no crackles auscultated b/l. HEART: Irregular rate and rhythm. Normal S1 and S2 without murmur, rub or gallop. ABDOMEN: Soft, nontender, not distended. Normoactive bowel sounds X4 quadrants. No guarding, no rebound tenderness. No hepatomegaly appreciated. MUSCULOSKELETAL: Normal range of motion at all joints. No bony deformities or tenderness. Strength 4/5 b/l upper and lower extremities. UPPER EXTREMITIES: 2+ radial pulses b/l, warm, well-perfused. No cyanosis noted. LOWER EXTREMITIES: 2+ dorsalis pulses b/l, warm, well-perfused. No calf tenderness b/l. Trace peripheral lower extremity pitting edema b/l. NEUROLOGICAL: Cranial nerves II-XII intact. Normal speech. No gross focal deficits. PSYCHIATRIC: Cooperative. Appropriate mood and affect upon my encounter today. SKIN: Warm, dry, no rashes or lesions noted. Laboratory Results - last 24 hr 12/16/17 12/16/17 12/16/17 06:08 06:30 06:30 WBC RBC Hgb Hct MCV MCH MCHC RDW Plt Count MPV PT with INR 15.00 H INR 1.27 H PTT (Actin FS) Cancelled 50.3 H Sodium Potassium Chloride Carbon Dioxide Anion Gap BUN Creatinine Creat Clearance w eGFR POC Glucometer 147 Random Glucose Calcium 12/16/17 12/16/17 12/16/17 06:30 09:45 11:27 WBC 6.2 RBC 3.41 L Hgb 10.3 L Hct 33.0 MCV 96.8 H MCH 30.2 MCHC 31.2 L RDW 16.1 H Plt Count 171 MPV 10.2 PT with INR INR PTT (Actin FS) Sodium 143 Potassium 4.8 Chloride 112 H Carbon Dioxide 22 Anion Gap 10 BUN 57 H Creatinine 3.5 H Creat Clearance w eGFR 12.60 POC Glucometer 232 Random Glucose 154 H Calcium 8.0 L Active Medications Generic Name Dose Route Start Last Admin Trade Name Freq PRN Reason Stop Dose Admin Albuterol/Ipratropium 1 amp 12/16/17 14:59 Duoneb - NEB Q4H PRN SHORTNESS OF BREATH Aspirin 81 mg 12/14/17 10:00 12/16/17 09:46 Ecotrin - PO 81 mg DAILY [facility] Administration Atorvastatin Calcium 40 mg 12/15/17 22:00 12/15/17 21:25 Lipitor - PO 40 mg HS [facility] Administration Budesonide/Formoterol Fumarate 2 puff 12/16/17 22:00 Symbicort 160/4.5mcg - IH BID [facility] Ferrous Sulfate 325 mg 12/14/17 10:00 12/16/17 09:47 Feosol - PO 325 mg DAILY [facility] Administration Folic Acid 1 mg 12/14/17 10:00 12/16/17 09:47 Folic Acid - PO 1 mg DAILY [facility] Administration Heparin Sodium (Porcine) 1,000 unit 12/14/17 08:25 Heparin - IVPUSH PRN PRN Heparin Heparin Sodium (Porcine) 5,000 unit 12/14/17 09:01 12/14/17 09:49 Heparin - IVPUSH 5,000 unit PRN PRN Administration Heparin Hydralazine HCl 50 mg 12/15/17 11:17 12/16/17 06:10 Apresoline - PO 50 mg TID [facility] Administration Heparin Sodium/Dextrose 25,000 units in 500 mls @ 20 mls/hr 12/14/17 09:30 09:30 Heparin Infusion - IV 600 units/hr TITR [facility] 12 mls/hr Administration Protocol 1,000 UNITS/HR Insulin Aspart 1 vial 12/14/17 07:00 12/16/17 11:55 Novolog Vial Sliding Scale - SQ 4 units ACHS [facility] Administration Protocol Isosorbide Mononitrate 60 mg 12/16/17 15:00 Imdur - PO DAILY [facility] Metoprolol Succinate 50 mg 12/15/17 10:00 12/16/17 09:47 Toprol Xl - PO 50 mg DAILY [facility] Administration Nifedipine 60 mg 12/14/17 10:00 12/16/17 09:47 Procardia Xl - PO 60 mg DAILY [facility] Administration Pantoprazole Sodium 40 mg 12/14/17 10:00 12/16/17 09:47 Protonix - PO 40 mg BID [facility] Administration Warfarin Sodium 7.5 mg 12/16/17 18:00 Coumadin - PO DAILY@1800 [facility] IMAGING: EKG upon admission showed sinus tachycardia with premature atrial complexes. Cardiac ECHO shows LV normal in size, and function. EF 60-65%. RV systolic function normal. Mild MR, TR, , AR. ASSESSMENT/PLAN: Patient is a 77 year old female with history significant for hypertension, diabetes, atrial fibrillation (s/p ablation, on Coumadin), left lower extremity DVT, asthma, COPD presents with complaint of chest pain and shortness of breath. NSTEMI -Troponins -0.51 -> 2.04 -> 2.24 -> 1.52 -Heparin drip, will continue until INR therapeutic. -Metoprolol tartrate switched to metoprolol succinate 50mg PO daily with cardiology recommendation. -Plavix discontinued with cardiology recommendation -Aspirin 81mg daily -Atorvastatin 80mg PO daily -Cardiology consult (Dr. Griffith) appreciated. No left heart catheterization as risks of contrast induced nephropathy outweigh the benefits. Will continue conservative management. Afib -INR subtherapeutic at 1.27 -Coumadin 7.5mg PO daily -Will follow PT/INR. Goal 2-3. DM -BGM ACHS -ISS ACHS Hypertension -Hydralazine 100mg PO TID -Imdur 60mg PO daily -Nifedipine 60mg PO daily Normocytic anemia -Ferrous sulfate 325mg PO daily -Folic acid 1mg PO daily Acute on chronic kidney disease -Creatinine today 3.5, baseline from prior admissions around 3.0 -Will trend Cr, and consider nephrology consult FEN -No IV fluids -Follow CMP -Diabetic sodium, renal controlled diet Prophylaxis -Heparin drip -Coumadin 7.5mg PO tonight -Pantoprazole 40mg PO BID Disposition -Continue care in telemetry floor. Pending therapeutic INR to d/c heparin and discharge safely. Visit type - Emergency Visit Emergency Visit: Yes ED Registration Date: 12/13/17 Care time: The patient presented to the Emergency Department on the above date and was hospitalized for further evaluation of their emergent condition. - New Patient This patient is new to me today: No - Critical Care Critical Care patient: No - Discharge Referral Referred to [facility] Med [facility] No
[2017-12-16] MEDS: ISOSORBIDE MONONITRATE 60 MG TAB.SR.24H (FP) PO SCH (16:43)
[2017-12-16] MEDS ORDERED: WARFARIN NA 7.5 MG TABLET (FP) PO SCH (18:00)
[2017-12-16] MEDS: ATORVASTATIN CA 40 MG TABLET (FP) PO SCH (23:04)
[2017-12-16] MEDS: BUDESONIDE/FORMETEROL FUMARATE 160/4.5 mcg INHALER IH SCH (23:19)
[2017-12-17] MEDS: hydrALAZINE HCL 50 MG TABLET (FP) PO SCH ×3 (06:08→22:19)
[2017-12-17] MEDS: INSULIN SLIDING SCALE (NOVOLOG) 1 VIAL SQ SCH ×4 (06:09→22:27)
[2017-12-17] MEDS ORDERED: PT OWN MED DRAWER 7, Y5N ONE ×3 (07:09→21:36)
[2017-12-17] MEDS ORDERED: INSULIN (NOVOLOG) ASPART 100 UNITS/ML 10ML VIAL ONE (07:11)
[2017-12-17] MEDS ORDERED: INSULIN (LEVEMIR) 100 UNITS/ML UNITS SQ ONE ×2 (07:11→08:45)
--- NOTE | 2017-12-17 07:42 | PN ---
Teaching Attending Note Name of Resident: Ibrahima Reilly ATTENDING PHYSICIAN STATEMENT I saw and evaluated the patient. I reviewed the resident's note and discussed the case with the resident. I agree with the resident's findings and plan as documented with exceptions below. SUBJECTIVE: Patient seen and examined. working with PT, still with dyspnea with activity, overall feels better, no chest pain or new concerns. OBJECTIVE: Vital Signs Period Temp Pulse Resp BP Sys/Renee Pulse Ox Last 24 Hr 97.8 F-98.8 F 60-63 18-20 114-137/38-54 98-98 Intake & Output 12/14/17 12/15/17 12/16/17 12/17/17 23:59 23:59 23:59 23:59 Intake Total 820 1330 624 144 Balance 820 1330 624 144 Weight 190 lb 188 lb 12.8 oz 188 lb General: sitting at edge of bed, no acute distress Chest: no rales or wheezing, positive air entry Abdomen: soft, obese, NT Extremities: trace pedal edema Active Medications Albuterol/Ipratropium (Duoneb -) 1 amp NEB Q4H PRN PRN Reason: SHORTNESS OF BREATH Aspirin (Ecotrin -) 81 mg PO DAILY [facility] Last Admin: 12/16/17 09:46 Dose: 81 mg Atorvastatin Calcium (Lipitor -) 40 mg PO HS [facility] Last Admin: 12/16/17 23:04 Dose: 40 mg Budesonide/Formoterol Fumarate (Symbicort 160/4.5mcg -) 2 puff IH BID [facility] Last Admin: 12/16/17 23:19 Dose: 2 puff Ferrous Sulfate (Feosol -) 325 mg PO DAILY [facility] Last Admin: 12/16/17 09:47 Dose: 325 mg Folic Acid (Folic Acid -) 1 mg PO DAILY [facility] Last Admin: 12/16/17 09:47 Dose: 1 mg Heparin Sodium (Porcine) (Heparin -) 1,000 unit IVPUSH PRN PRN PRN Reason: Heparin Heparin Sodium (Porcine) (Heparin -) 5,000 unit IVPUSH PRN PRN PRN Reason: Heparin Last Admin: 12/14/17 09:49 Dose: 5,000 unit Hydralazine HCl (Apresoline -) 50 mg PO TID [facility] Last Admin: 10/18/18 06:08 Dose: 50 mg Heparin Sodium/Dextrose (Heparin Infusion -) 25,000 units in 500 mls @ 20 mls/ hr IV TITR [facility]; Protocol Last Admin: 12/16/17 09:30 Dose: 600 units/hr, 12 mls/hr Insulin Aspart (Novolog Vial Sliding Scale -) 1 vial SQ ACHS [facility]; Protocol Last Admin: 12/17/17 06:09 Dose: Not Given Isosorbide Mononitrate (Imdur -) 60 mg PO DAILY [facility] Last Admin: 12/16/17 16:43 Dose: 60 mg Metoprolol Succinate (Toprol Xl -) 50 mg PO DAILY [facility] Last Admin: 12/16/17 09:47 Dose: 50 mg Nifedipine (Procardia Xl -) 60 mg PO DAILY [facility] Last Admin: 12/16/17 09:47 Dose: 60 mg Pantoprazole Sodium (Protonix -) 40 mg PO BID [facility] Last Admin: 12/16/17 23:05 Dose: 40 mg Warfarin Sodium (Coumadin -) 7.5 mg PO DAILY@1800 [facility] Last Admin: 12/16/17 17:36 Dose: 7.5 mg Laboratory Results - last 24 hr 12/16/17 12/16/17 12/16/17 11:27 17:33 23:01 WBC RBC Hgb Hct MCV MCH MCHC RDW Plt Count MPV PT with INR INR PTT (Actin FS) Sodium Potassium Chloride Carbon Dioxide Anion Gap BUN Creatinine Creat Clearance w eGFR POC Glucometer 232 180 331 Random Glucose Calcium 12/17/17 12/17/17 12/17/17 06:01 06:50 06:50 WBC RBC Hgb Hct MCV MCH MCHC RDW Plt Count MPV PT with INR 16.10 H INR 1.36 H PTT (Actin FS) 48.1 H Sodium Potassium Chloride Carbon Dioxide Anion Gap BUN Creatinine Creat Clearance w eGFR POC Glucometer 105 Random Glucose Calcium 12/17/17 12/17/17 06:50 06:50 WBC 6.3 RBC 3.08 L Hgb 9.4 L Hct 29.5 L MCV 95.6 MCH 30.6 MCHC 32.0 RDW 16.0 H Plt Count 161 MPV 9.6 PT with INR INR PTT (Actin FS) Sodium 141 Potassium 4.4 Chloride 112 H Carbon Dioxide 19 L Anion Gap 10 BUN 59 H Creatinine 3.5 H Creat Clearance w eGFR 12.60 POC Glucometer Random Glucose 119 H Calcium 8.0 L ASSESSMENT AND PLAN: 77 yof with PMHx of Danette randhawa (currently on Coumadin), DM, HTN, COPD, Asthma, DVT, [place] s/p cardiac cath, CKD, LLE DVT, GERD admitted with chest pain, NSTEMi and subtherapeutic INR. -NSTEMI -CKD stage IV (baseline Cr 3.5-3.7) -Afib s/p ablation on coumadin -Subtherapeutic INR -COPD/Asthma - h/o LLE DVT -HTN -IDDM -GERD Plan: Cardiology/pulmonary input noted. Agree V/Q would not traveler changer. Patient improved and stable clinically. Heparin drip, coumadin, 10 mg today Dc heparin when INR 2-3. OFfered cardiac cath but patient declined given risk of contrast induced nephropathy and possible need for HD. medical management with ASA/statin/metoprolol/nifedipine/Imdur. Resume symbicort, prn nebs. No indication for steroids. ISS, diabetic diet, resume levemir 10 units hs, given 5 units now. DVTPPX as above PT eval and home oxygen needs assessment. Dispo d/c home when INR therapeutic if continues to improve Plan discussed with patient and all questions answered.
[2017-12-17 07:51] LABS: HEMATOCRIT 29.5 % (32.4-45.2); HEMOGLOBIN 9.4 GM/dL (10.7-15.3); MCH 30.6 pg (25.7-33.7); MEAN CELL VOLUME 95.6 fl (80-96); MEAN PLT VOLUME 9.6 fl (7.5-11.1); PLATELET COUNT 161 K/MM3 (134-434); RBC 3.08 M/mm3 (3.60-5.2); WHITE BLOOD COUNT 6.3 K/mm3 (4.0-10.0)
--- NOTE | 2017-12-17 08:04 | PN ---
Physical Exam: SUBJECTIVE: Patient seen and examined at bedside. She admits some shortness of breath with exertion. Denies fevers, chills, chest pain, palpitations, lightheadedness, abdominal pain, nausea, vomiting, diarrhea OBJECTIVE: Vital Signs Temperature 98.5 F 12/17/17 02:00 Pulse Rate 61 12/17/17 06:00 Respiratory Rate 20 12/17/17 06:00 Blood Pressure 137/42 L 12/17/17 06:00 O2 Sat by Pulse Oximetry (%) 98 12/16/17 21:00 GENERAL: Awake, alert, and fully oriented, in no acute distress. HEAD: Normal with no signs of trauma. EYES: Pupils equal, round and reactive to light, extraocular movements intact without nystagmus b/l. Sclera anicteric, conjunctiva clear b/l. EARS, NOSE, THROAT: Oropharynx clear without exudates, mild erythema. Moist mucous membranes. NECK: Normal range of motion, supple without lymphadenopathy. No JVD appreciated. LUNGS: Good inspiratory effort and air entry b/l. No wheezing, no crackles auscultated b/l. Patient is not using accessory muscles of respiration HEART: Irregular rate and rhythm. Normal S1 and S2 without murmur, rub or gallop. ABDOMEN: Soft, nontender, not distended. Normoactive bowel sounds X4 quadrants. No guarding, no rebound tenderness. No hepatomegaly appreciated. MUSCULOSKELETAL: Normal range of motion at all joints. No bony deformities or tenderness. Strength 4/5 b/l upper and lower extremities. UPPER EXTREMITIES: 2+ radial pulses b/l, warm, well-perfused. No cyanosis noted. LOWER EXTREMITIES: 2+ dorsalis pulses b/l, warm, well-perfused. No calf tenderness b/l. Trace peripheral lower extremity pitting edema b/l. NEUROLOGICAL: Cranial nerves II-XII intact. Normal speech. No gross focal deficits. PSYCHIATRIC: Cooperative. Appropriate mood and affect upon my encounter today. SKIN: Warm, dry, no rashes or lesions noted. Laboratory Results - last 24 hr 12/16/17 12/16/17 12/16/17 06:30 06:30 09:45 WBC 6.2 RBC 3.41 L Hgb 10.3 L Hct 33.0 MCV 96.8 H MCH 30.2 MCHC 31.2 L RDW 16.1 H Plt Count 171 MPV 10.2 PT with INR 15.00 H INR 1.27 H PTT (Actin FS) Cancelled 50.3 H POC Glucometer 12/16/17 12/16/17 12/16/17 11:27 17:33 23:01 WBC RBC Hgb Hct MCV MCH MCHC RDW Plt Count MPV PT with INR INR PTT (Actin FS) POC Glucometer 232 180 331 12/17/17 12/17/17 06:01 06:50 WBC 6.3 RBC 3.08 L Hgb 9.4 L Hct 29.5 L MCV 95.6 MCH 30.6 MCHC 32.0 RDW 16.0 H Plt Count 161 MPV 9.6 PT with INR INR PTT (Actin FS) POC Glucometer 105 Active Medications Generic Name Dose Route Start Last Admin Trade Name Freq PRN Reason Stop Dose Admin Albuterol/Ipratropium 1 amp 12/16/17 14:59 Duoneb - NEB Q4H PRN SHORTNESS OF BREATH Aspirin 81 mg 12/14/17 10:00 12/16/17 09:46 Ecotrin - PO 81 mg DAILY [facility] Administration Atorvastatin Calcium 40 mg 12/15/17 22:00 12/16/17 23:04 Lipitor - PO 40 mg HS [facility] Administration Budesonide/Formoterol Fumarate 2 puff 12/16/17 22:00 12/16/17 23:19 Symbicort 160/4.5mcg - IH 2 puff BID [facility] Administration Ferrous Sulfate 325 mg 12/14/17 10:00 12/16/17 09:47 Feosol - PO 325 mg DAILY [facility] Administration Folic Acid 1 mg 12/14/17 10:00 12/16/17 09:47 Folic Acid - PO 1 mg DAILY [facility] Administration Heparin Sodium (Porcine) 1,000 unit 12/14/17 08:25 Heparin - IVPUSH PRN PRN Heparin Heparin Sodium (Porcine) 5,000 unit 12/14/17 09:01 12/14/17 09:49 Heparin - IVPUSH 5,000 unit PRN PRN Administration Heparin Hydralazine HCl 50 mg 12/15/17 11:17 12/17/17 06:08 Apresoline - PO 50 mg TID [facility] Administration Heparin Sodium/Dextrose 25,000 units in 500 mls @ 20 mls/hr 12/14/17 09:30 09:30 Heparin Infusion - IV 600 units/hr TITR [facility] 12 mls/hr Administration Protocol 1,000 UNITS/HR Insulin Aspart 1 vial 12/14/17 07:00 12/17/17 06:09 Novolog Vial Sliding Scale - SQ Not Given ACHS [facility] Protocol Insulin Detemir 5 units 12/17/17 07:42 Levemir Vial SQ 12/17/17 07:43 ONCE ONE Insulin Detemir 10 units 12/17/17 22:00 Levemir Vial SQ HS [facility] Isosorbide Mononitrate 60 mg 12/16/17 15:00 12/16/17 16:43 Imdur - PO 60 mg DAILY [facility] Administration Metoprolol Succinate 50 mg 12/15/17 10:00 12/16/17 09:47 Toprol Xl - PO 50 mg DAILY [facility] Administration Nifedipine 60 mg 12/14/17 10:00 12/16/17 09:47 Procardia Xl - PO 60 mg DAILY [facility] Administration Pantoprazole Sodium 40 mg 12/14/17 10:00 12/16/17 23:05 Protonix - PO 40 mg BID [facility] Administration Warfarin Sodium 7.5 mg 12/16/17 18:00 12/16/17 17:36 Coumadin - PO 7.5 mg DAILY@1800 [facility] Administration IMAGING: EKG upon admission showed sinus tachycardia with premature atrial complexes. Cardiac ECHO shows LV normal in size, and function. EF 60-65%. RV systolic function normal. Mild MR, TR, , AR. ASSESSMENT/PLAN: Patient is a 77 year old female with history significant for hypertension, diabetes, atrial fibrillation (s/p ablation, on Coumadin), left lower extremity DVT, asthma, COPD presents with complaint of chest pain and shortness of breath. NSTEMI -Troponins -0.51 -> 2.04 -> 2.24 -> 1.52 -Heparin drip, will continue until INR therapeutic. -Metoprolol tartrate switched to metoprolol succinate 50mg PO daily with cardiology recommendation. -Plavix discontinued with cardiology recommendation -Aspirin 81mg daily -Atorvastatin 80mg PO daily -Cardiology consult (Dr. Griffith) appreciated. No left heart catheterization as risks of contrast induced nephropathy outweigh the benefits. Will continue conservative management. -Physical therapist evaluation notes she walks 25 feet today. Will obtain pre- post exercise oxygenation tomorrow. Afib -INR subtherapeutic at 1.36 -Coumadin increased to 10mg PO tonight -Will follow PT/INR. Goal 2-3. DM -BGM ACHS -ISS ACHS Hypertension -Hydralazine 100mg PO TID -Imdur 60mg PO daily -Nifedipine 60mg PO daily Normocytic anemia -Ferrous sulfate 325mg PO daily -Folic acid 1mg PO daily Acute on chronic kidney disease -Creatinine today 3.5, baseline from prior admissions around 3.0 -Will trend Cr FEN -No IV fluids -Follow CMP -Diabetic sodium, renal controlled diet Prophylaxis -Heparin drip -Coumadin 10mg PO tonight -Pantoprazole 40mg PO BID Disposition -Continue care in telemetry floor. Pending therapeutic INR to d/c heparin and discharge safely. Visit type - Emergency Visit Emergency Visit: Yes ED Registration Date: 12/13/17 Care time: The patient presented to the Emergency Department on the above date and was hospitalized for further evaluation of their emergent condition. - New Patient This patient is new to me today: No - Critical Care Critical Care patient: No - Discharge Referral Referred to [facility] No
[2017-12-17 08:23] LABS: INR 1.36 (0.83-1.09); PROTHROMBIN TIME (PATIENT) 16.1 SEC (9.7-13.0)
[2017-12-17 08:28] LABS: ANION GAP 10 MMOL/L (8-16); BLOOD UREA NITROGEN 59 mg/dL (7-18); CHLORIDE 112 mmol/L (98-107); CO2 19 mmol/L (21-32); CREATININE 3.5 mg/dL (0.55-1.3); GLUCOSE,RANDOM 119 mg/dL (74-106); POTASSIUM 4.4 mmol/L (3.5-5.1); SODIUM 141 mmol/L (136-145)
[2017-12-17] MEDS: NIFEdipine E.R 60 MG TABLET (UD) PO SCH (09:48)
[2017-12-17] MEDS: FOLIC ACID 1 MG TABLET (FP) PO SCH (09:49)
[2017-12-17] MEDS: ASPIRIN COATED 81 MG TABLET.EC PO SCH (09:49)
[2017-12-17] MEDS: FERROUS SO4 325 MG TABLET (FP) PO SCH (09:49)
[2017-12-17] MEDS: PANTOPRAZOLE 40 MG TABLET (FP) PO SCH ×2 (09:49→22:19)
[2017-12-17] MEDS: BUDESONIDE/FORMETEROL FUMARATE 160/4.5 mcg INHALER IH SCH ×2 (09:49→22:21)
[2017-12-17] MEDS: ISOSORBIDE MONONITRATE 60 MG TAB.SR.24H (FP) PO SCH (09:49)
--- NOTE | 2017-12-17 12:00 | PN ---
Progress Note (short form) - Note Progress Note: Still with some JOHNSON. No CP. IV Heparin/Coumadin bridge. Intake & Output 12/14/17 12/15/17 12/16/17 12/17/17 23:59 23:59 23:59 23:59 Intake Total 820 1330 624 144 Balance 820 1330 624 144 Weight 190 lb 188 lb 12.8 oz 188 lb 190 lb 12.8 oz Last Vital Signs Temp Pulse Resp BP Pulse Ox 98 F 68 22 H 145/60 98 12/17/17 08:45 12/17/17 08:45 12/17/17 08:45 12/17/17 08:45 12/17/17 08:46 Active Medications Albuterol/Ipratropium (Duoneb -) 1 amp NEB Q4H PRN PRN Reason: SHORTNESS OF BREATH Aspirin (Ecotrin -) 81 mg PO DAILY [facility] Last Admin: 12/17/17 09:49 Dose: 81 mg Atorvastatin Calcium (Lipitor -) 40 mg PO HS [facility] Last Admin: 12/16/17 23:04 Dose: 40 mg Budesonide/Formoterol Fumarate (Symbicort 160/4.5mcg -) 2 puff IH BID [facility] Last Admin: 12/17/17 09:49 Dose: 2 puff Ferrous Sulfate (Feosol -) 325 mg PO DAILY [facility] Last Admin: 12/17/17 09:49 Dose: 325 mg Folic Acid (Folic Acid -) 1 mg PO DAILY [facility] Last Admin: 12/17/17 09:49 Dose: 1 mg Heparin Sodium (Porcine) (Heparin -) 1,000 unit IVPUSH PRN PRN PRN Reason: Heparin Heparin Sodium (Porcine) (Heparin -) 5,000 unit IVPUSH PRN PRN PRN Reason: Heparin Last Admin: 12/14/17 09:49 Dose: 5,000 unit Hydralazine HCl (Apresoline -) 50 mg PO TID [facility] Last Admin: 12/17/17 06:08 Dose: 50 mg Heparin Sodium/Dextrose (Heparin Infusion -) 25,000 units in 500 mls @ 20 mls/ hr IV TITR [facility]; Protocol Last Admin: 12/16/17 09:30 Dose: 600 units/hr, 12 mls/hr Insulin Aspart (Novolog Vial Sliding Scale -) 1 vial SQ ACHS [facility]; Protocol Last Admin: 12/17/17 06:09 Dose: Not Given Insulin Detemir (Levemir Vial) 10 units SQ HS [facility] Isosorbide Mononitrate (Imdur -) 60 mg PO DAILY [facility] Last Admin: 12/17/17 09:49 Dose: 60 mg Metoprolol Succinate (Toprol Xl -) 50 mg PO DAILY [facility] Last Admin: 12/17/17 09:49 Dose: 50 mg Nifedipine (Procardia Xl -) 60 mg PO DAILY [facility] Last Admin: 12/17/17 09:48 Dose: 60 mg Pantoprazole Sodium (Protonix -) 40 mg PO BID [facility] Last Admin: 12/17/17 09:49 Dose: 40 mg Warfarin Sodium (Coumadin -) 7.5 mg PO DAILY@1800 [facility] Last Admin: 12/16/17 17:36 Dose: 7.5 mg Constitutional: Yes: Well Nourished, Calm Eyes: Yes: WNL HENT: Yes: WNL Neck: Yes: WNL Cardiovascular: Yes: Pulse Irregular, S1, S2 Respiratory: Yes: Few basilar rhonchi Gastrointestinal: Yes: Normal Bowel Sounds, Soft Extremities: Yes: WNL Edema: No Labs: Laboratory Results - last 24 hr 12/16/17 12/16/17 12/17/17 17:33 23:01 06:01 WBC RBC Hgb Hct MCV MCH MCHC RDW Plt Count MPV PT with INR INR PTT (Actin FS) Sodium Potassium Chloride Carbon Dioxide Anion Gap BUN Creatinine Creat Clearance w eGFR POC Glucometer 180 331 105 Random Glucose Calcium 12/17/17 12/17/17 12/17/17 06:50 06:50 06:50 WBC 6.3 RBC 3.08 L Hgb 9.4 L Hct 29.5 L MCV 95.6 MCH 30.6 MCHC 32.0 RDW 16.0 H Plt Count 161 MPV 9.6 PT with INR 16.10 H INR 1.36 H PTT (Actin FS) 48.1 H Sodium Potassium Chloride Carbon Dioxide Anion Gap BUN Creatinine Creat Clearance w eGFR POC Glucometer Random Glucose Calcium 12/17/17 06:50 WBC RBC Hgb Hct MCV MCH MCHC RDW Plt Count MPV PT with INR INR PTT (Actin FS) Sodium 141 Potassium 4.4 Chloride 112 H Carbon Dioxide 19 L Anion Gap 10 BUN 59 H Creatinine 3.5 H Creat Clearance w eGFR 12.60 POC Glucometer Random Glucose 119 H Calcium 8.0 L Assessment/Plan Problem List - Problems (1) NSTEMI (non-ST elevated myocardial infarction) Code(s): I21.4 - NON-ST ELEVATION (NSTEMI) MYOCARDIAL INFARCTION (2) Shortness of breath Code(s): R06.02 - SHORTNESS OF BREATH (3) Afib Code(s): I48.91 - UNSPECIFIED ATRIAL FIBRILLATION (4) CKD (chronic kidney disease) Code(s): N18.9 - CHRONIC KIDNEY DISEASE, UNSPECIFIED (5) COPD (chronic obstructive pulmonary disease) Code(s): J44.9 - CHRONIC OBSTRUCTIVE PULMONARY DISEASE, UNSPECIFIED Qualifiers: COPD type: chronic bronchitis (6) Diastolic CHF Code(s): I50.30 - UNSPECIFIED DIASTOLIC (CONGESTIVE) HEART FAILURE Qualifiers: Heart failure chronicity: chronic Qualified Code(s): I50.32 - Chronic diastolic (congestive) heart failure (7) CAD (coronary artery disease) Code(s): I25.10 - ATHSCL HEART DISEASE OF [place] CORONARY ARTERY W/O ANG PCTRS (8) History of DVT (deep vein thrombosis) Code(s): Z86.718 - PERSONAL HISTORY OF OTHER VENOUS THROMBOSIS AND EMBOLISM Assessment/Plan Acute NSTEMI LV Diastolic Dysfunction Pulmonary HTN Atrial Fibrillation COPD CKD h/o DVT HTN DM - IV Heparin / Coumadin bridge - ASA, plavix - beta kath, statin - O2 as needed - inhaled bronchodilators - D/C planning once INR therapeutic Dr Graner
--- NOTE | 2017-12-17 15:13 | PN ---
Progress Note, Physician Chief Complaint: The patient appears comfortable. She complains of weakness, fatigue and SOB on exertion. No SOB at rest, chest pain or palpitation. Tele shows sinus with occasional VPCs, rare ventricular couplets. 4 beat NSVT as noted by Dr. Griffith. History of Present Illness: 77 year-old woman with a PMHx of HTN, DM, atrial fibrillation, s/p ablation on warfarin, advanced CKD, COPD, asthma, DVT and recent admission with dyspnea brought to ED 12/13/2017 with sudden onset SOB with chest pain. Her initial ECG showed sinus tachycardia (100 bpm) with frequent APCs without acute ST-T changes. Repeat ECG 12/14/2017 revealed normal sinus at rate of [address] and T. Troponin is elevated (2.04->2.24), BNP 2456; BNU/creat 67/ 3.7. Echo 12/14/2017: Normal LV size, wall motion, no regional wall motion abnormality. LVEF = 60%. Normal RV. Normal LA/RA in size. Mild AI/MR/TR. - Current Medication List Current Medications: Active Medications Albuterol/Ipratropium (Duoneb -) 1 amp NEB Q4H PRN PRN Reason: SHORTNESS OF BREATH Aspirin (Ecotrin -) 81 mg PO DAILY [facility] Last Admin: 12/17/17 09:49 Dose: 81 mg Atorvastatin Calcium (Lipitor -) 40 mg PO HS [facility] Last Admin: 12/16/17 23:04 Dose: 40 mg Budesonide/Formoterol Fumarate (Symbicort 160/4.5mcg -) 2 puff IH BID [facility] Last Admin: 12/17/17 09:49 Dose: 2 puff Ferrous Sulfate (Feosol -) 325 mg PO DAILY [facility] Last Admin: 12/17/17 09:49 Dose: 325 mg Folic Acid (Folic Acid -) 1 mg PO DAILY [facility] Last Admin: 12/17/17 09:49 Dose: 1 mg Heparin Sodium (Porcine) (Heparin -) 1,000 unit IVPUSH PRN PRN PRN Reason: Heparin Heparin Sodium (Porcine) (Heparin -) 5,000 unit IVPUSH PRN PRN PRN Reason: Heparin Last Admin: 12/14/17 09:49 Dose: 5,000 unit Hydralazine HCl (Apresoline -) 50 mg PO TID [facility] Last Admin: 12/17/17 13:47 Dose: 50 mg Heparin Sodium/Dextrose (Heparin Infusion -) 25,000 units in 500 mls @ 20 mls/ hr IV TITR [facility]; Protocol Last Admin: 12/16/17 09:30 Dose: 600 units/hr, 12 mls/hr Insulin Aspart (Novolog Vial Sliding Scale -) 1 vial SQ ACHS [facility]; Protocol Last Admin: 12/17/17 12:03 Dose: 2 units Insulin Detemir (Levemir Vial) 10 units SQ HS [facility] Isosorbide Mononitrate (Imdur -) 60 mg PO DAILY [facility] Last Admin: 12/17/17 09:49 Dose: 60 mg Metoprolol Succinate (Toprol Xl -) 50 mg PO DAILY [facility] Last Admin: 12/17/17 09:49 Dose: 50 mg Nifedipine (Procardia Xl -) 60 mg PO DAILY [facility] Last Admin: 12/17/17 09:48 Dose: 60 mg Pantoprazole Sodium (Protonix -) 40 mg PO BID [facility] Last Admin: 12/17/17 09:49 Dose: 40 mg Warfarin Sodium (Coumadin -) 10 mg PO ONCE@1800 ONE Stop: 12/17/17 18:01 - Objective Vital Signs: Vital Signs Temperature 98.8 F 12/17/17 13:48 Pulse Rate 64 12/17/17 13:48 Respiratory Rate 20 12/17/17 13:48 Blood Pressure 126/69 12/17/17 13:48 O2 Sat by Pulse Oximetry (%) 98 12/17/17 08:46 General: Well developed. Well nourished. No acute distress. Head: Normocephalic. Atraumatic, Eyes: PERRLA, EOMI. Sclerae anicteric. Conjunctivae clear. Neck: Supple. No JVD. No bruits. Heart: Normal S1, S2: Regular rhythm and rate. No murmur. No gallop or rub. Lungs: Symmetrical air entry. Clear to auscultation. No crackles. No wheezing or rhonchi. Abdomen: Soft. Bowel sound positive. Non tender. No masses. Extremities: No edema. No clubbing or cyanosis. PD 2+, Labs: CBC, BMP 12/17/17 06:50 12/17/17 06:50 INR, PTT INR 1.36 (0.83-1.09) H 12/17/17 06:50 Assessment/Plan 77 year-old woman with a PMHx of HTN, DM, atrial fibrillation, s/p ablation on warfarin, advanced CKD, COPD, asthma, DVT and recent admission with dyspnea brought to ED 12/13/2017 with sudden onset SOB with chest pain. Her initial ECG showed sinus tachycardia (100 bpm) with frequent APCs without acute ST-T changes. Repeat ECG 12/14/2017 revealed normal sinus at rate of [address] and T. Troponin is elevated (2.04->2.24), BNP 2456; BNU/creat 67/ 3.7. Echo 12/14/2017: Normal LV size, wall motion, no regional wall motion abnormality. LVEF = 60%. Normal RV. Normal LA/RA in size. Mild AI/MR/TR. 1) NSTEMI: possible due to small vessel CAD. No evidence of regional wall motion abnormalities. LV systolic function is normal. The patient is stable without recurrent angina. -Continue IV heparin gtt bridge to warfarin to keep INR 2-3. May discontinue heparin once INR > 2. -Continue aspirin 81 mg daily given nstemi. -Continuet metoprolol succinate 50 mg daily. -Cont Atorvastatin 40 mg daily. -Continue Imdur 60 mg daily -Ideally pt would have a LHC however given her CKD she is high risk for contrast induced nephropathy and significant risk of needing HD. This was discussed with her many times including today and she does not want to take that risk. As her LV systolic function is normal, it is reasonable to pursue conservative cardiac care at this time. -pulm evaluation appreciated no benefit to V/Q as has indication for full AC due to afib 2) Atrial fibrillation s/p ablation. -Remains in sinus with APCs brief psvt -Continue metoprolol succinate 50 mg daily. -Dose warfarin to keep INR 2-3. The patient can be discharged once INR is close to 2. May discontinue tele. Out-pt cardiac follow up with Dr. Griffith. Please call us for reconsult as needed.
[2017-12-17] MEDS ORDERED: WARFARIN NA 10 MG TABLET (FP) PO ONE (18:00)
[2017-12-17] MEDS: HEPARIN INFUSION - 25,000 UNITS/500 ML INFUS.BAG IV SCH (18:27)
[2017-12-17] MEDS ORDERED: INSULIN (LEVEMIR) 100 UNITS/ML UNITS SQ SCH (22:00)
[2017-12-17] MEDS: ATORVASTATIN CA 40 MG TABLET (FP) PO SCH (22:19)
[2017-12-18 06:41] LABS: HEMATOCRIT 29.6 % (32.4-45.2); HEMOGLOBIN 9.6 GM/dL (10.7-15.3); MCH 30.9 pg (25.7-33.7); MCHC 32.3 g/dl (32.0-36.0); MEAN CELL VOLUME 95.5 fl (80-96); MEAN PLT VOLUME 9.7 fl (7.5-11.1); PLATELET COUNT 158 K/MM3 (134-434); RBC 3.09 M/mm3 (3.60-5.2); RDW 16.1 % (11.6-15.6); WHITE BLOOD COUNT 6.4 K/mm3 (4.0-10.0)
[2017-12-18] MEDS: hydrALAZINE HCL 50 MG TABLET (FP) PO SCH ×3 (06:43→22:33)
[2017-12-18] MEDS: INSULIN SLIDING SCALE (NOVOLOG) 1 VIAL SQ SCH ×4 (06:43→22:35)
[2017-12-18 06:56] LABS: INR 1.36 (0.83-1.09); PROTHROMBIN TIME (PATIENT) 16.1 SEC (9.7-13.0)
[2017-12-18 07:28] LABS: ANION GAP 9 MMOL/L (8-16); BLOOD UREA NITROGEN 63 mg/dL (7-18); CALCIUM 7.6 mg/dL (8.5-10.1); CHLORIDE 112 mmol/L (98-107); CO2 19 mmol/L (21-32); CREATININE 3.5 mg/dL (0.55-1.3); GLUCOSE,RANDOM 162 mg/dL (74-106); POTASSIUM 4.4 mmol/L (3.5-5.1); SODIUM 141 mmol/L (136-145)
[2017-12-18] MEDS: HEPARIN INFUSION - 25,000 UNITS/500 ML INFUS.BAG IV SCH (09:50)
[2017-12-18] MEDS: HEPARIN NA (PORCINE) 5,000 UNITS/ML 1ML VIAL IVPUSH PRN (09:50)
[2017-12-18] MEDS: PANTOPRAZOLE 40 MG TABLET (FP) PO SCH ×2 (09:51→22:33)
[2017-12-18] MEDS: ASPIRIN COATED 81 MG TABLET.EC PO SCH (09:51)
[2017-12-18] MEDS: FERROUS SO4 325 MG TABLET (FP) PO SCH (09:51)
[2017-12-18] MEDS: FOLIC ACID 1 MG TABLET (FP) PO SCH (09:51)
[2017-12-18] MEDS: ISOSORBIDE MONONITRATE 60 MG TAB.SR.24H (FP) PO SCH (09:51)
[2017-12-18] MEDS: NIFEdipine E.R 60 MG TABLET (UD) PO SCH (09:51)
[2017-12-18] MEDS: BUDESONIDE/FORMETEROL FUMARATE 160/4.5 mcg INHALER IH SCH ×2 (09:52→22:43)
[2017-12-18 10:36] LABS: HEMATOCRIT 31.4 % (32.4-45.2); HEMOGLOBIN 10.3 GM/dL (10.7-15.3); MCH 31.3 pg (25.7-33.7); MCHC 32.8 g/dl (32.0-36.0); MEAN CELL VOLUME 95.4 fl (80-96); MEAN PLT VOLUME 9.8 fl (7.5-11.1); PLATELET COUNT 187 K/MM3 (134-434); RBC 3.29 M/mm3 (3.60-5.2); RDW 16.2 % (11.6-15.6); WHITE BLOOD COUNT 6.2 K/mm3 (4.0-10.0)
--- NOTE | 2017-12-18 11:19 | PN ---
Progress Note, Physician History of Present Illness: pulmonary alert,feels weak,+ [place],-cp - Current Medication List Current Medications: Active Medications Albuterol/Ipratropium (Duoneb -) 1 amp NEB Q4H PRN PRN Reason: SHORTNESS OF BREATH Aspirin (Ecotrin -) 81 mg PO DAILY [facility] Last Admin: 12/18/17 09:51 Dose: 81 mg Atorvastatin Calcium (Lipitor -) 40 mg PO HS [facility] Last Admin: 12/17/17 22:19 Dose: 40 mg Budesonide/Formoterol Fumarate (Symbicort 160/4.5mcg -) 2 puff IH BID [facility] Last Admin: 12/18/17 09:52 Dose: 2 puff Ferrous Sulfate (Feosol -) 325 mg PO DAILY [facility] Last Admin: 12/18/17 09:51 Dose: 325 mg Folic Acid (Folic Acid -) 1 mg PO DAILY [facility] Last Admin: 12/18/17 09:51 Dose: 1 mg Heparin Sodium (Porcine) (Heparin -) 1,000 unit IVPUSH PRN PRN PRN Reason: Heparin Last Admin: 12/18/17 09:50 Dose: 1,000 unit Heparin Sodium (Porcine) (Heparin -) 5,000 unit IVPUSH PRN PRN PRN Reason: Heparin Last Admin: 12/14/17 09:49 Dose: 5,000 unit Hydralazine HCl (Apresoline -) 50 mg PO TID [facility] Last Admin: 12/18/17 06:43 Dose: 50 mg Heparin Sodium/Dextrose (Heparin Infusion -) 25,000 units in 500 mls @ 20 mls/ hr IV TITR [facility]; Protocol Last Admin: 12/18/17 09:50 Dose: 700 units/hr, 14 mls/hr Insulin Aspart (Novolog Vial Sliding Scale -) 1 vial SQ ACHS [facility]; Protocol Last Admin: 12/18/17 06:43 Dose: Not Given Insulin Detemir (Levemir Vial) 10 units SQ HS [facility] Last Admin: 12/17/17 22:21 Dose: 10 unit Isosorbide Mononitrate (Imdur -) 60 mg PO DAILY [facility] Last Admin: 12/18/17 09:51 Dose: 60 mg Metoprolol Succinate (Toprol Xl -) 50 mg PO DAILY [facility] Last Admin: 12/18/17 09:51 Dose: 50 mg Nifedipine (Procardia Xl -) 60 mg PO DAILY [facility] Last Admin: 12/18/17 09:51 Dose: 60 mg Pantoprazole Sodium (Protonix -) 40 mg PO BID [facility] Last Admin: 12/18/17 09:51 Dose: 40 mg Warfarin Sodium (Coumadin -) 10 mg PO DAILY@1800 [facility] - Objective Vital Signs: Vital Signs Temperature 98.1 F 12/18/17 01:52 Pulse Rate 77 12/18/17 05:00 Respiratory Rate 20 12/18/17 05:00 Blood Pressure 148/60 12/18/17 05:00 O2 Sat by Pulse Oximetry (%) 98 12/17/17 08:46 Constitutional: Yes: Well Nourished, Calm Eyes: Yes: WNL HENT: Yes: WNL Neck: Yes: WNL Cardiovascular: Yes: Regular Rate and Rhythm, S1, S2 Respiratory: Yes: Diminished, Rhonchi (few scattered rhonchi) Gastrointestinal: Yes: Normal Bowel Sounds, Soft Extremities: Yes: WNL Edema: No Labs: CBC, BMP 12/18/17 10:00 12/18/17 05:30 INR, PTT INR 1.36 (0.83-1.09) H 12/18/17 05:30 Assessment/Plan Problem List - Problems (1) NSTEMI (non-ST elevated myocardial infarction) Code(s): I21.4 - NON-ST ELEVATION (NSTEMI) MYOCARDIAL INFARCTION (2) Shortness of breath Code(s): R06.02 - SHORTNESS OF BREATH (3) Afib Code(s): I48.91 - UNSPECIFIED ATRIAL FIBRILLATION (4) CKD (chronic kidney disease) Code(s): N18.9 - CHRONIC KIDNEY DISEASE, UNSPECIFIED (5) COPD (chronic obstructive pulmonary disease) Code(s): J44.9 - CHRONIC OBSTRUCTIVE PULMONARY DISEASE, UNSPECIFIED Qualifiers: COPD type: chronic bronchitis (6) Diastolic CHF Code(s): I50.30 - UNSPECIFIED DIASTOLIC (CONGESTIVE) HEART FAILURE Qualifiers: Heart failure chronicity: chronic Qualified Code(s): I50.32 - Chronic diastolic (congestive) heart failure (7) CAD (coronary artery disease) Code(s): I25.10 - ATHSCL HEART DISEASE OF [place] CORONARY ARTERY W/O ANG PCTRS (8) History of DVT (deep vein thrombosis) Code(s): Z86.718 - PERSONAL HISTORY OF OTHER VENOUS THROMBOSIS AND EMBOLISM Assessment/Plan Acute NSTEMI LV Diastolic Dysfunction Pulmonary HTN Atrial Fibrillation COPD CKD h/o DVT HTN DM - Heparin /coumadin - ASA, plavix - beta kath, statin - O2 as needed - inhaled bronchodilators DR GOULD
--- NOTE | 2017-12-18 12:53 | PN ---
Teaching Attending Note Name of Resident: Ibrahima Reilly ATTENDING PHYSICIAN STATEMENT I saw and evaluated the patient. I reviewed the resident's note and discussed the case with the resident. I agree with the resident's findings and plan as documented with exceptions below. SUBJECTIVE: Patient seen and examined. Short of breath with activity, no further chest pain , overall improved. OBJECTIVE: Vital Signs Period Temp Pulse Resp BP Sys/Renee Pulse Ox Last 24 Hr 98.0 F-98.8 F 64-98 16-20 126-148/50-70 Intake & Output 12/15/17 12/16/17 12/17/17 12/18/17 23:59 23:59 23:59 23:59 Intake Total 1330 624 624 144 Balance 1330 624 624 144 Weight 188 lb 12.8 oz 188 lb 190 lb 12.8 oz 190 lb 9.6 oz General: sitting in bed in no acute distress Chest: CTAB, no rales or wheezing appreciated Abdomen:Soft, obese, NT Extremities: trace pedal edema Active Medications Albuterol/Ipratropium (Duoneb -) 1 amp NEB Q4H PRN PRN Reason: SHORTNESS OF BREATH Aspirin (Ecotrin -) 81 mg PO DAILY [facility] Last Admin: 12/18/17 09:51 Dose: 81 mg Atorvastatin Calcium (Lipitor -) 40 mg PO HS [facility] Last Admin: 12/17/17 22:19 Dose: 40 mg Budesonide/Formoterol Fumarate (Symbicort 160/4.5mcg -) 2 puff IH BID [facility] Last Admin: 12/18/17 09:52 Dose: 2 puff Ferrous Sulfate (Feosol -) 325 mg PO DAILY [facility] Last Admin: 12/18/17 09:51 Dose: 325 mg Folic Acid (Folic Acid -) 1 mg PO DAILY [facility] Last Admin: 12/18/17 09:51 Dose: 1 mg Heparin Sodium (Porcine) (Heparin -) 1,000 unit IVPUSH PRN PRN PRN Reason: Heparin Last Admin: 12/18/17 09:50 Dose: 1,000 unit Heparin Sodium (Porcine) (Heparin -) 5,000 unit IVPUSH PRN PRN PRN Reason: Heparin Last Admin: 12/14/17 09:49 Dose: 5,000 unit Hydralazine HCl (Apresoline -) 50 mg PO TID [facility] Last Admin: 12/18/17 06:43 Dose: 50 mg Heparin Sodium/Dextrose (Heparin Infusion -) 25,000 units in 500 mls @ 20 mls/ hr IV TITR [facility]; Protocol Last Admin: 12/18/17 09:50 Dose: 700 units/hr, 14 mls/hr Insulin Aspart (Novolog Vial Sliding Scale -) 1 vial SQ ACHS [facility]; Protocol Last Admin: 12/18/17 06:43 Dose: Not Given Insulin Detemir (Levemir Vial) 10 units SQ HS [facility] Last Admin: 12/17/17 22:21 Dose: 10 unit Isosorbide Mononitrate (Imdur -) 60 mg PO DAILY [facility] Last Admin: 12/18/17 09:51 Dose: 60 mg Metoprolol Succinate (Toprol Xl -) 50 mg PO DAILY [facility] Last Admin: 12/18/17 09:51 Dose: 50 mg Nifedipine (Procardia Xl -) 60 mg PO DAILY [facility] Last Admin: 12/18/17 09:51 Dose: 60 mg Pantoprazole Sodium (Protonix -) 40 mg PO BID [facility] Last Admin: 12/18/17 09:51 Dose: 40 mg Warfarin Sodium (Coumadin -) 10 mg PO DAILY@1800 [facility] Laboratory Results - last 24 hr 12/17/17 12/17/17 12/18/17 15:02 21:50 05:30 WBC 6.4 RBC 3.09 L Hgb 9.6 L Hct 29.6 L MCV 95.5 MCH 30.9 MCHC 32.3 RDW 16.1 H Plt Count 158 MPV 9.7 PT with INR INR PTT (Actin FS) Sodium Potassium Chloride Carbon Dioxide Anion Gap BUN Creatinine Creat Clearance w eGFR POC Glucometer 200 214 Random Glucose Calcium 12/18/17 12/18/17 12/18/17 05:30 05:30 05:30 WBC RBC Hgb Hct MCV MCH MCHC RDW Plt Count MPV PT with INR 16.10 H INR 1.36 H PTT (Actin FS) 49.6 H Sodium 141 Potassium 4.4 Chloride 112 H Carbon Dioxide 19 L Anion Gap 9 BUN 63 H Creatinine 3.5 H Creat Clearance w eGFR 12.60 POC Glucometer Random Glucose 162 H Calcium 7.6 L 12/18/17 12/18/17 06:07 10:00 WBC 6.2 RBC 3.29 L Hgb 10.3 L Hct 31.4 L MCV 95.4 MCH 31.3 MCHC 32.8 RDW 16.2 H Plt Count 187 MPV 9.8 PT with INR INR PTT (Actin FS) Sodium Potassium Chloride Carbon Dioxide Anion Gap BUN Creatinine Creat Clearance w eGFR POC Glucometer 175 Random Glucose Calcium ASSESSMENT AND PLAN: 77 yof with PMHx of GlendyAmanda randhawa (currently on Coumadin), DM, HTN, COPD, Asthma, DVT, IN s/p cardiac cath, CKD, LLE DVT, GERD admitted with chest pain, NSTEMi and subtherapeutic INR. -NSTEMI -CKD stage IV (baseline Cr 3.5-3.7) -Afib s/p ablation on coumadin -Subtherapeutic INR -COPD/Asthma - h/o LLE DVT -HTN -IDDM -GERD Plan: Cardiology/pulmonary input noted. Agree V/Q would not exchange administrator. Patient improved and stable clinically. Heparin drip, coumadin, 10 mg daily Dc heparin when INR 2-3. OFfered cardiac cath but patient declined given risk of contrast induced nephropathy and possible need for HD. medical management with ASA/statin/metoprolol/nifedipine/Imdur. Continue symbicort, prn nebs. No indication for steroids. ISS, diabetic diet, increase levemir to 15 units hs DVTPPX as above PT eval and home oxygen needs assessment. Dispo d/c home when INR therapeutic if continues to improve Plan discussed with patient and all questions answered.
--- NOTE | 2017-12-18 13:07 | PN ---
Physical Exam: SUBJECTIVE: Patient seen and examined at bedside resting comfortably. Endorses no shortness of breath with rest, admits only with exertion. Today denies fevers, chills, chest pain, palpitations, lightheadedness, abdominal pain, nausea, vomiting, diarrhea. OBJECTIVE: Vital Signs Period Temp Pulse Resp BP Sys/Renee Pulse Ox Last 24 Hr 98.0 F-98.8 F 64-98 16-20 126-148/50-70 GENERAL: Awake, alert, and fully oriented, in no acute distress. HEAD: Normal with no signs of trauma. EYES: Pupils equal, round and reactive to light, extraocular movements intact without nystagmus b/l. Sclera anicteric, conjunctiva clear b/l. EARS, NOSE, THROAT: Oropharynx clear without exudates, mild erythema. Moist mucous membranes. NECK: Normal range of motion, supple without lymphadenopathy. No JVD appreciated. LUNGS: Good inspiratory effort and air entry b/l. No wheezing, no crackles auscultated b/l. Patient is not using accessory muscles of respiration HEART: Irregular rate and rhythm. Normal S1 and S2 without murmur, rub or gallop. ABDOMEN: Soft, nontender, not distended. Normoactive bowel sounds X4 quadrants. No guarding, no rebound tenderness. No hepatomegaly appreciated. MUSCULOSKELETAL: Normal range of motion at all joints. No bony deformities or tenderness. Strength 4/5 b/l upper and lower extremities. UPPER EXTREMITIES: 2+ radial pulses b/l, warm, well-perfused. No cyanosis noted. LOWER EXTREMITIES: 2+ dorsalis pulses b/l, warm, well-perfused. No calf tenderness b/l. Trace peripheral lower extremity pitting edema b/l. NEUROLOGICAL: Cranial nerves II-XII intact. Normal speech. No gross focal deficits. PSYCHIATRIC: Cooperative. Appropriate mood and affect upon my encounter today. SKIN: Warm, dry, no rashes or lesions noted. Laboratory Results - last 24 hr 12/18/17 12/18/17 12/18/17 05:30 05:30 05:30 WBC RBC Hgb Hct MCV MCH MCHC RDW Plt Count MPV PT with INR 16.10 H INR 1.36 H PTT (Actin FS) 49.6 H Sodium 141 Potassium 4.4 Chloride 112 H Carbon Dioxide 19 L Anion Gap 9 BUN 63 H Creatinine 3.5 H Creat Clearance w eGFR 12.60 POC Glucometer Random Glucose 162 H Calcium 7.6 L 12/18/17 12/18/17 06:07 10:00 WBC 6.2 RBC 3.29 L Hgb 10.3 L Hct 31.4 L MCV 95.4 MCH 31.3 MCHC 32.8 RDW 16.2 H Plt Count 187 MPV 9.8 PT with INR INR PTT (Actin FS) Sodium Potassium Chloride Carbon Dioxide Anion Gap BUN Creatinine Creat Clearance w eGFR POC Glucometer 175 Random Glucose Calcium Active Medications Generic Name Dose Route Start Last Admin Trade Name Freq PRN Reason Stop Dose Admin Albuterol/Ipratropium 1 amp 12/16/17 14:59 Duoneb - NEB Q4H PRN SHORTNESS OF BREATH Aspirin 81 mg 12/14/17 10:00 12/18/17 09:51 Ecotrin - PO 81 mg DAILY [facility] Administration Atorvastatin Calcium 40 mg 12/15/17 22:00 12/17/17 22:19 Lipitor - PO 40 mg HS [facility] Administration Budesonide/Formoterol Fumarate 2 puff 12/16/17 22:00 12/18/17 09:52 Symbicort 160/4.5mcg - IH 2 puff BID [facility] Administration Ferrous Sulfate 325 mg 12/14/17 10:00 12/18/17 09:51 Feosol - PO 325 mg DAILY [facility] Administration Folic Acid 1 mg 12/14/17 10:00 12/18/17 09:51 Folic Acid - PO 1 mg DAILY [facility] Administration Heparin Sodium (Porcine) 1,000 unit 12/14/17 08:25 12/18/17 09:50 Heparin - IVPUSH 1,000 unit PRN PRN Administration Heparin Heparin Sodium (Porcine) 5,000 unit 12/14/17 09:01 12/14/17 09:49 Heparin - IVPUSH 5,000 unit PRN PRN Administration Heparin Hydralazine HCl 50 mg 12/15/17 11:17 12/18/17 06:43 Apresoline - PO 50 mg TID [facility] Administration Heparin Sodium/Dextrose 25,000 units in 500 mls @ 20 mls/hr 12/14/17 09:30 09:50 Heparin Infusion - IV 700 units/hr TITR [facility] 14 mls/hr Administration Protocol 1,000 UNITS/HR Insulin Aspart 1 vial 12/14/17 07:00 12/18/17 06:43 Novolog Vial Sliding Scale - SQ Not Given [facility] Protocol Insulin Detemir 15 units 12/18/17 12:53 Levemir Vial SQ HS [facility] Isosorbide Mononitrate 60 mg 12/16/17 15:00 12/18/17 09:51 Imdur - PO 60 mg DAILY [facility] Administration Metoprolol Succinate 50 mg 12/15/17 10:00 12/18/17 09:51 Toprol Xl - PO 50 mg DAILY [facility] Administration Nifedipine 60 mg 12/14/17 10:00 12/18/17 09:51 Procardia Xl - PO 60 mg DAILY [facility] Administration Pantoprazole Sodium 40 mg 12/14/17 10:00 12/18/17 09:51 Protonix - PO 40 mg BID [facility] Administration Warfarin Sodium 10 mg 12/18/17 18:00 Coumadin - PO DAILY@1800 [facility] IMAGING: EKG upon admission showed sinus tachycardia with premature atrial complexes. Cardiac ECHO shows LV normal in size, and function. EF 60-65%. RV systolic function normal. Mild MR, TR, , AR. ASSESSMENT/PLAN: Patient is a 77 year old female with history significant for hypertension, diabetes, atrial fibrillation (s/p ablation, on Coumadin), left lower extremity DVT, asthma, COPD presents with complaint of chest pain and shortness of breath. NSTEMI -Troponins -0.51 -> 2.04 -> 2.24 -> 1.52 -Heparin drip, will continue until INR therapeutic. -Metoprolol tartrate switched to metoprolol succinate 50mg PO daily with cardiology recommendation. -Plavix discontinued with cardiology recommendation -Aspirin 81mg daily -Atorvastatin 80mg PO daily -Cardiology consult (Dr. Griffith) appreciated. No left heart catheterization as risks of contrast induced nephropathy outweigh the benefits. Will continue conservative management. -Physical therapist evaluation notes she walks 25 feet today. Will obtain pre- post exercise oxygenation tomorrow. Afib -INR subtherapeutic at 1.36 -Coumadin increased to 10mg PO tonight -Will follow PT/INR. Goal 2-3. DM -BGM ACHS -ISS ACHS Hypertension -Hydralazine 100mg PO TID -Imdur 60mg PO daily -Nifedipine 60mg PO daily Normocytic anemia -Ferrous sulfate 325mg PO daily -Folic acid 1mg PO daily Acute on chronic kidney disease -Creatinine today 3.5, baseline from prior admissions around 3.0 -Will trend Cr FEN -No IV fluids -Follow CMP -Diabetic sodium, renal controlled diet Prophylaxis -Heparin drip -Coumadin 10mg PO tonight -Pantoprazole 40mg PO BID Disposition -Continue care in telemetry floor. Pending therapeutic INR to d/c heparin and discharge safely. Visit type - Emergency Visit Emergency Visit: Yes ED Registration Date: 12/13/17 Care time: The patient presented to the Emergency Department on the above date and was hospitalized for further evaluation of their emergent condition. - New Patient This patient is new to me today: No - Critical Care Critical Care patient: No - Discharge Referral Referred to [facility] Med P.C.: No
[2017-12-18] MEDS: WARFARIN NA 10 MG TABLET (FP) PO SCH ×2 (16:50→17:01)
[2017-12-18] MEDS: ATORVASTATIN CA 40 MG TABLET (FP) PO SCH (22:33)
[2017-12-18] MEDS: INSULIN (LEVEMIR) 100 UNITS/ML UNITS SQ SCH (22:34)
[2017-12-19] MEDS: INSULIN SLIDING SCALE (NOVOLOG) 1 VIAL SQ SCH ×4 (06:37→22:22)
[2017-12-19] MEDS: hydrALAZINE HCL 50 MG TABLET (FP) PO SCH ×3 (06:38→22:22)
[2017-12-19 07:09] LABS: INR 1.54 (0.83-1.09); PROTHROMBIN TIME (PATIENT) 18.2 SEC (9.7-13.0)
--- NOTE | 2017-12-19 09:04 | PN ---
Physical Exam: SUBJECTIVE: Patient seen and examined at bedside resting comfortably. She states that she is feeling tired today, and was unable to sleep well last night. Endorses mild shortness of breath this morning. Denies fevers, chills, chest pain, palpitations, lightheadedness, abdominal pain, nausea, vomiting, diarrhea. OBJECTIVE: Vital Signs Period Temp Pulse Resp BP Sys/Renee Pulse Ox Last 24 Hr 98.2 F-98.5 F 57-69 1-20 124-157/46-66 99 GENERAL: Awake, alert, and fully oriented, in no acute distress. HEAD: Normal with no signs of trauma. EYES: Pupils equal, round and reactive to light, extraocular movements intact without nystagmus b/l. Sclera anicteric, conjunctiva clear b/l. EARS, NOSE, THROAT: Oropharynx clear without exudates, mild erythema. Moist mucous membranes. NECK: Normal range of motion, supple without lymphadenopathy. No JVD appreciated. LUNGS: Good inspiratory effort and air entry b/l. Faint rhonchi auscultated b/l lower lobes. No wheezing auscultated b/l. Patient is not using accessory muscles of respiration. HEART: Irregular rate and rhythm. Normal S1 and S2 without murmur, rub or gallop. ABDOMEN: Soft, nontender, not distended. Normoactive bowel sounds X4 quadrants. No guarding, no rebound tenderness. No hepatomegaly appreciated. MUSCULOSKELETAL: Normal range of motion at all joints. No bony deformities or tenderness. Strength 4/5 b/l upper and lower extremities. UPPER EXTREMITIES: 2+ radial pulses b/l, warm, well-perfused. No cyanosis noted. LOWER EXTREMITIES: 2+ dorsalis pulses b/l, warm, well-perfused. No calf tenderness b/l. Trace peripheral lower extremity pitting edema b/l. NEUROLOGICAL: Cranial nerves II-XII intact. Normal speech. No gross focal deficits. PSYCHIATRIC: Cooperative. Appropriate mood and affect upon my encounter today. SKIN: Warm, dry, no rashes or lesions noted. Laboratory Results - last 24 hr 12/18/17 12/18/17 12/18/17 05:30 10:00 15:00 WBC 6.2 RBC 3.29 L Hgb 10.3 L Hct 31.4 L MCV 95.4 MCH 31.3 MCHC 32.8 RDW 16.2 H Plt Count 187 MPV 9.8 PT with INR INR PTT (Actin FS) 49.6 H 55.2 H POC Glucometer 12/18/17 12/19/17 12/19/17 22:32 05:30 05:30 WBC RBC Hgb Hct MCV MCH MCHC RDW Plt Count MPV PT with INR 18.20 H INR 1.54 H PTT (Actin FS) 53.8 H POC Glucometer 249 12/19/17 06:29 WBC RBC Hgb Hct MCV MCH MCHC RDW Plt Count MPV PT with INR INR PTT (Actin FS) POC Glucometer 129 Active Medications Generic Name Dose Route Start Last Admin Trade Name Freq PRN Reason Stop Dose Admin Albuterol/Ipratropium 1 amp 12/16/17 14:59 Duoneb - NEB Q4H PRN SHORTNESS OF BREATH Aspirin 81 mg 12/14/17 10:00 12/18/17 09:51 Ecotrin - PO 81 mg DAILY [facility] Administration Atorvastatin Calcium 40 mg 12/15/17 22:00 12/18/17 22:33 Lipitor - PO 40 mg HS [facility] Administration Budesonide/Formoterol Fumarate 2 puff 12/16/17 22:00 12/18/17 22:43 Symbicort 160/4.5mcg - IH 2 puff BID [facility] Administration Ferrous Sulfate 325 mg 12/14/17 10:00 12/18/17 09:51 Feosol - PO 325 mg DAILY [facility] Administration Folic Acid 1 mg 12/14/17 10:00 12/18/17 09:51 Folic Acid - PO 1 mg DAILY [facility] Administration Heparin Sodium (Porcine) 1,000 unit 12/14/17 08:25 12/18/17 09:50 Heparin - IVPUSH 1,000 unit PRN PRN Administration Heparin Heparin Sodium (Porcine) 5,000 unit 12/14/17 09:01 12/14/17 09:49 Heparin - IVPUSH 5,000 unit PRN PRN Administration Heparin Hydralazine HCl 50 mg 12/15/17 11:17 12/19/17 06:38 Apresoline - PO 50 mg TID [facility] Administration Heparin Sodium/Dextrose 25,000 units in 500 mls @ 20 mls/hr 12/14/17 09:30 09:50 Heparin Infusion - IV 700 units/hr TITR [facility] 14 mls/hr Administration Protocol 1,000 UNITS/HR Insulin Aspart 1 vial 12/14/17 07:00 12/19/17 06:37 Novolog Vial Sliding Scale - SQ Not Given [facility] Protocol Insulin Detemir 15 units 12/18/17 12:53 12/18/17 22:34 Levemir Vial SQ 15 units HS [facility] Administration Isosorbide Mononitrate 60 mg 12/16/17 15:00 12/18/17 09:51 Imdur - PO 60 mg DAILY [facility] Administration Metoprolol Succinate 50 mg 12/15/17 10:00 12/18/17 09:51 Toprol Xl - PO 50 mg DAILY [facility] Administration Nifedipine 60 mg 12/14/17 10:00 12/18/17 09:51 Procardia Xl - PO 60 mg DAILY [facility] Administration Pantoprazole Sodium 40 mg 12/14/17 10:00 12/18/17 22:33 Protonix - PO 40 mg BID [facility] Administration Warfarin Sodium 10 mg 12/18/17 18:00 12/18/17 17:01 Coumadin - PO Not Given DAILY@1800 [facility] IMAGING: EKG upon admission showed sinus tachycardia with premature atrial complexes. Cardiac ECHO shows LV normal in size, and function. EF 60-65%. RV systolic function normal. Mild MR, TR, , AR. ASSESSMENT/PLAN: Patient is a 77 year old female with history significant for hypertension, diabetes, atrial fibrillation (s/p ablation, on Coumadin), left lower extremity DVT, asthma, COPD presents with complaint of chest pain and shortness of breath. NSTEMI -Troponins -0.51 -> 2.04 -> 2.24 -> 1.52 -Heparin drip, will continue until INR therapeutic. -Metoprolol tartrate switched to metoprolol succinate 50mg PO daily with cardiology recommendation. -Plavix discontinued with cardiology recommendation -Aspirin 81mg daily -Atorvastatin 80mg PO daily -Cardiology consult (Dr. Griffith) appreciated. No left heart catheterization as risks of contrast induced nephropathy outweigh the benefits. Will continue conservative management. -Physical therapist evaluation notes she walked 25 feet. Will obtain pre-post exercise oxygenation today. Afib -INR subtherapeutic at 1.54 -Coumadin 10mg PO tonight -Will follow PT/INR. Goal 2-3. DM -BGM ACHS -ISS ACHS Hypertension -Hydralazine 100mg PO TID -Imdur 60mg PO daily -Nifedipine 60mg PO daily Normocytic anemia -Ferrous sulfate 325mg PO daily -Folic acid 1mg PO daily Acute on chronic kidney disease -Creatinine at 3.5, baseline from prior admissions around 3.0 -Will trend Cr FEN -No IV fluids -Follow CMP -Diabetic sodium, renal controlled diet Prophylaxis -Heparin drip -Coumadin 10mg PO tonight -Pantoprazole 40mg PO BID Disposition -Continue care in telemetry floor. Pending therapeutic INR to d/c heparin and discharge safely.
--- NOTE | 2017-12-19 10:07 | PN ---
Progress Note, Physician History of Present Illness: pulmonary alert,no distress,-cp,+dyspnea on exertion - Current Medication List Current Medications: Active Medications Albuterol/Ipratropium (Duoneb -) 1 amp NEB Q4H PRN PRN Reason: SHORTNESS OF BREATH Aspirin (Ecotrin -) 81 mg PO DAILY [facility] Last Admin: 12/18/17 09:51 Dose: 81 mg Atorvastatin Calcium (Lipitor -) 40 mg PO HS [facility] Last Admin: 12/18/17 22:33 Dose: 40 mg Budesonide/Formoterol Fumarate (Symbicort 160/4.5mcg -) 2 puff IH BID [facility] Last Admin: 12/18/17 22:43 Dose: 2 puff Ferrous Sulfate (Feosol -) 325 mg PO DAILY [facility] Last Admin: 12/18/17 09:51 Dose: 325 mg Folic Acid (Folic Acid -) 1 mg PO DAILY [facility] Last Admin: 12/18/17 09:51 Dose: 1 mg Heparin Sodium (Porcine) (Heparin -) 1,000 unit IVPUSH PRN PRN PRN Reason: Heparin Last Admin: 12/18/17 09:50 Dose: 1,000 unit Heparin Sodium (Porcine) (Heparin -) 5,000 unit IVPUSH PRN PRN PRN Reason: Heparin Last Admin: 12/14/17 09:49 Dose: 5,000 unit Hydralazine HCl (Apresoline -) 50 mg PO TID [facility] Last Admin: 12/19/17 06:38 Dose: 50 mg Heparin Sodium/Dextrose (Heparin Infusion -) 25,000 units in 500 mls @ 20 mls/ hr IV TITR [facility]; Protocol Last Admin: 12/18/17 09:50 Dose: 700 units/hr, 14 mls/hr Insulin Aspart (Novolog Vial Sliding Scale -) 1 vial SQ ACHS [facility]; Protocol Last Admin: 12/19/17 06:37 Dose: Not Given Insulin Detemir (Levemir Vial) 15 units SQ HS [facility] Last Admin: 12/18/17 22:34 Dose: 15 units Isosorbide Mononitrate (Imdur -) 60 mg PO DAILY [facility] Last Admin: 12/18/17 09:51 Dose: 60 mg Metoprolol Succinate (Toprol Xl -) 50 mg PO DAILY [facility] Last Admin: 12/18/17 09:51 Dose: 50 mg Nifedipine (Procardia Xl -) 60 mg PO DAILY [facility] Last Admin: 12/18/17 09:51 Dose: 60 mg Pantoprazole Sodium (Protonix -) 40 mg PO BID [facility] Last Admin: 12/18/17 22:33 Dose: 40 mg Warfarin Sodium (Coumadin -) 10 mg PO DAILY@1800 [facility] Last Admin: 12/18/17 17:01 Dose: Not Given - Objective Vital Signs: Vital Signs Temperature 98.5 F 12/19/17 01:00 Pulse Rate 57 L 12/19/17 05:00 Respiratory Rate 20 12/19/17 05:00 Blood Pressure 157/65 12/19/17 05:00 O2 Sat by Pulse Oximetry (%) 99 12/18/17 20:35 Constitutional: Yes: Well Nourished, Calm Eyes: Yes: WNL HENT: Yes: WNL Neck: Yes: WNL Cardiovascular: Yes: Pulse Irregular, S1, S2 Respiratory: Yes: Diminished Gastrointestinal: Yes: Normal Bowel Sounds, Soft Extremities: Yes: WNL Edema: Yes Edema: LLE: Trace, RLE: Trace Labs: CBC, BMP Laboratory Tests 12/19/17 05:30 INR 1.54 H Assessment/Plan Problem List - Problems (1) NSTEMI (non-ST elevated myocardial infarction) Code(s): I21.4 - NON-ST ELEVATION (NSTEMI) MYOCARDIAL INFARCTION (2) Shortness of breath Code(s): R06.02 - SHORTNESS OF BREATH (3) Afib Code(s): I48.91 - UNSPECIFIED ATRIAL FIBRILLATION (4) CKD (chronic kidney disease) Code(s): N18.9 - CHRONIC KIDNEY DISEASE, UNSPECIFIED (5) COPD (chronic obstructive pulmonary disease) Code(s): J44.9 - CHRONIC OBSTRUCTIVE PULMONARY DISEASE, UNSPECIFIED Qualifiers: COPD type: chronic bronchitis (6) Diastolic CHF Code(s): I50.30 - UNSPECIFIED DIASTOLIC (CONGESTIVE) HEART FAILURE Qualifiers: Heart failure chronicity: chronic Qualified Code(s): I50.32 - Chronic diastolic (congestive) heart failure (7) CAD (coronary artery disease) Code(s): I25.10 - ATHSCL HEART DISEASE OF [place] CORONARY ARTERY W/O ANG PCTRS (8) History of DVT (deep vein thrombosis) Code(s): Z86.718 - PERSONAL HISTORY OF OTHER VENOUS THROMBOSIS AND EMBOLISM Assessment/Plan Acute NSTEMI LV Diastolic Dysfunction Pulmonary HTN Atrial Fibrillation COPD CKD h/o DVT HTN DM - Heparin /coumadin - ASA, plavix - beta kath, statin - O2 as needed - inhaled bronchodilators DR GOULD
[2017-12-19 10:30] LABS: ANION GAP 8 MMOL/L (8-16); BLOOD UREA NITROGEN 57 mg/dL (7-18); CALCIUM 7.8 mg/dL (8.5-10.1); CHLORIDE 116 mmol/L (98-107); CO2 20 mmol/L (21-32); CREATININE 3.2 mg/dL (0.55-1.3); GLUCOSE,RANDOM 124 mg/dL (74-106); MAGNESIUM 1.5 mg/dL (1.8-2.4); N-TERMINAL BNP 961.1 pg/ml (5-450); PHOSPHOROUS 3.2 mg/dL (2.5-4.9); POTASSIUM 4.3 mmol/L (3.5-5.1); SODIUM 143 mmol/L (136-145)
[2017-12-19] MEDS: NIFEdipine E.R 60 MG TABLET (UD) PO SCH (10:47)
[2017-12-19] MEDS: PANTOPRAZOLE 40 MG TABLET (FP) PO SCH ×2 (10:47→22:22)
[2017-12-19] MEDS: ASPIRIN COATED 81 MG TABLET.EC PO SCH (10:47)
[2017-12-19] MEDS: FERROUS SO4 325 MG TABLET (FP) PO SCH (10:48)
[2017-12-19] MEDS: FOLIC ACID 1 MG TABLET (FP) PO SCH (10:48)
[2017-12-19] MEDS: BUDESONIDE/FORMETEROL FUMARATE 160/4.5 mcg INHALER IH SCH ×2 (10:48→22:25)
[2017-12-19] MEDS: ISOSORBIDE MONONITRATE 60 MG TAB.SR.24H (FP) PO SCH (10:48)
[2017-12-19] MEDS: HEPARIN INFUSION - 25,000 UNITS/500 ML INFUS.BAG IV SCH (10:48)
--- NOTE | 2017-12-19 10:48 | PN ---
Physical Exam: SUBJECTIVE: Patient seen and examined. C/o of dyspnea this am still with mild exertion. OBJECTIVE: Miriam Vital Signs Temp 98.5 F 12/19/17 01:00 Pulse 57 L 12/19/17 05:00 Resp 20 12/19/17 05:00 BP 157/65 12/19/17 05:00 Pulse Ox 99 12/18/17 20:35 Intake & Output 12/18/17 12/19/17 12/19/17 23:59 11:59 23:59 Intake Total 360 240 Balance 360 240 Weight 87.317 kg Intake: Oral 360 240 Other: Voiding Method Bedside Commode Bedside Commode # Unmeasured Voids Void 4 2 Bowel Movement Yes Weight Measurement Method Standing Scale Period Temp Pulse Resp BP Sys/Renee Pulse Ox Last 24 Hr 98.2 F-98.5 F 57-69 1-20 124-157/46-66 99 GENERAL: The patient is awake, alert, and fully oriented, in no acute distress. NC NECK: supple. LUNGS: Few R basal crackles, no wheezes HEART: Regular rate and rhythm, S1, S2 without murmur, rub or gallop. ABDOMEN: Soft, nontender, nondistended, normoactive bowel sounds, EXTREMITIES: 2+ pulses, warm, well-perfused, mild bilateral pedal edema. NEUROLOGICAL: Cranial nerves II through XII grossly intact. Normal speech, gait not observed. CBC, BMP 12/18/17 10:00 12/19/17 10:02 Laboratory Results - last 24 hr 12/18/17 12/18/17 12/18/17 10:00 15:00 22:32 WBC 6.2 RBC 3.29 L Hgb 10.3 L Hct 31.4 L MCV 95.4 MCH 31.3 MCHC 32.8 RDW 16.2 H Plt Count 187 MPV 9.8 PT with INR INR PTT (Actin FS) 55.2 H Sodium Potassium Chloride Carbon Dioxide Anion Gap BUN Creatinine Creat Clearance w eGFR POC Glucometer 249 Random Glucose Calcium Phosphorus Magnesium B-Natriuretic Peptide 12/19/17 12/19/17 12/19/17 05:30 05:30 06:29 WBC RBC Hgb Hct MCV MCH MCHC RDW Plt Count MPV PT with INR 18.20 H INR 1.54 H PTT (Actin FS) 53.8 H Sodium Potassium Chloride Carbon Dioxide Anion Gap BUN Creatinine Creat Clearance w eGFR POC Glucometer 129 Random Glucose Calcium Phosphorus Magnesium B-Natriuretic Peptide 12/19/17 10:02 WBC RBC Hgb Hct MCV MCH MCHC RDW Plt Count MPV PT with INR INR PTT (Actin FS) Sodium 143 Potassium 4.3 Chloride 116 H Carbon Dioxide 20 L Anion Gap 8 BUN 57 H Creatinine 3.2 H Creat Clearance w eGFR 13.97 POC Glucometer Random Glucose 124 H Calcium 7.8 L Phosphorus 3.2 Magnesium 1.5 L B-Natriuretic Peptide 961.1 H Active Medications Albuterol/Ipratropium (Duoneb -) 1 amp NEB Q4H PRN PRN Reason: SHORTNESS OF BREATH Aspirin (Ecotrin -) 81 mg PO DAILY [facility] Last Admin: 12/19/17 10:47 Dose: 81 mg Atorvastatin Calcium (Lipitor -) 40 mg PO HS [facility] Last Admin: 12/18/17 22:33 Dose: 40 mg Budesonide/Formoterol Fumarate (Symbicort 160/4.5mcg -) 2 puff IH BID [facility] Last Admin: 12/19/17 10:48 Dose: 2 puff Ferrous Sulfate (Feosol -) 325 mg PO DAILY [facility] Last Admin: 12/19/17 10:48 Dose: 325 mg Folic Acid (Folic Acid -) 1 mg PO DAILY [facility] Last Admin: 12/19/17 10:48 Dose: 1 mg Heparin Sodium (Porcine) (Heparin -) 1,000 unit IVPUSH PRN PRN PRN Reason: Heparin Last Admin: 12/18/17 09:50 Dose: 1,000 unit Heparin Sodium (Porcine) (Heparin -) 5,000 unit IVPUSH PRN PRN PRN Reason: Heparin Last Admin: 12/14/17 09:49 Dose: 5,000 unit Hydralazine HCl (Apresoline -) 50 mg PO TID [facility] Last Admin: 12/19/17 06:38 Dose: 50 mg Heparin Sodium/Dextrose (Heparin Infusion -) 25,000 units in 500 mls @ 20 mls/ hr IV TITR [facility]; Protocol Last Admin: 12/19/17 10:48 Dose: 700 units/hr, 14 mls/hr Insulin Aspart (Novolog Vial Sliding Scale -) 1 vial SQ ACHS [facility]; Protocol Last Admin: 12/19/17 06:37 Dose: Not Given Insulin Detemir (Levemir Vial) 15 units SQ HS [facility] Last Admin: 12/18/17 22:34 Dose: 15 units Isosorbide Mononitrate (Imdur -) 60 mg PO DAILY [facility] Last Admin: 12/19/17 10:48 Dose: 60 mg Metoprolol Succinate (Toprol Xl -) 50 mg PO DAILY [facility] Last Admin: 12/19/17 10:47 Dose: 50 mg Nifedipine (Procardia Xl -) 60 mg PO DAILY [facility] Last Admin: 12/19/17 10:47 Dose: 60 mg Pantoprazole Sodium (Protonix -) 40 mg PO BID [facility] Last Admin: 12/19/17 10:47 Dose: 40 mg Warfarin Sodium (Coumadin -) 10 mg PO DAILY@1800 [facility] Last Admin: 12/18/17 17:01 Dose: Not Given Ambulatory Orders hydrALAZINE HCL [Apresoline -] 100 mg PO Q8H 01/28/17 Ferrous Sulfate 325 mg PO DAILY 02/02/17 Folic Acid 1 mg PO DAILY 12/09/17 Isosorbide Mononitrate [Isosorbide Mononitrate ER] 60 mg PO DAILY 12/09/17 Nifedipine [Nifedipine ER] 60 mg PO DAILY 12/09/17 Pantoprazole Sodium 40 mg PO BID 12/09/17 Tolterodine Tartrate 2 mg PO BID 12/09/17 Umeclidinium Brm/Vilanterol Tr [Anoro Ellipta 62.5-25 Mcg INH] 1 puff IH DAILY 12/09/17 Albuterol 2.5/Ipratropium 0.5 [Duoneb -] 1 amp NEB RQID amp 12/11/17 Budesonide/Formeterol Fumarate [SYMBICORT 160/4.5mcg -] 2 puff IH BID #1 inhaler 12/11/17 Sodium Bicarbonate - 650 mg PO BID #40 tablet 12/11/17 predniSONE [Deltasone -] See Taper PO ASDIR 6 Days #17 tab 12/11/17 Insulin (Levemir) [Levemir Vial] 20 units SQ HS 12/14/17 Warfarin Sodium [Coumadin] 6 mg PO BID 12/15/17 IMAGING: EKG upon admission showed sinus tachycardia with premature atrial complexes. Cardiac ECHO shows LV normal in size, and function. EF 60-65%. RV systolic function normal. Mild MR, TR, , AR. ASSESSMENT/PLAN: Patient is a 77 year old female with history significant for hypertension, diabetes, atrial fibrillation (s/p ablation, on Coumadin), left lower extremity DVT, asthma, COPD presents with complaint of chest pain and shortness of breath. Acute hypoxic respiratory failure -Could be secondary to COPD, ECHO with no evidence of CHF, PE not as likely although considered initially, but pt has been on anticoagulation on heparin for NSTEMI -Could be due to overload from heparin infusion, but CXR- 12/18/17 shows no evidence of congestion, BNP-900s, improved from prior - Pt intermittently dyspneic usually on mild exertion - V/Q scan dcd as not necessary by Pulm although recommended earlier by cards as pt already on anticoagulation -CTA not possible with poor renal function -Cont supplementa oxygen as needed to maintain sats>90% -Pre and post -CXR- clear 12/18/17 NSTEMI -Troponins peaked and trended down -0.51 -> 2.04 -> 2.24 -> 1.52 -Heparin drip, will continue until INR therapeutic. -Pt on started here on metoprolol succinate 50mg PO daily with cardiology recommendation. -Plavix discontinued with cardiology recommendation -Aspirin 81mg daily -Atorvastatin 80mg PO daily -Cardiology consult (Dr. Griffith) appreciated. No left heart catheterization as risks of contrast induced nephropathy outweigh the benefits with CKD. Will continue conservative management. -Physical therapist evaluation notes she walked 25 feet. -Will obtain pre-post exercise oxygenation today. Afib -INR subtherapeutic at 1.54 -Coumadin 10mg PO tonight -Will follow PT/INR. Goal 2-3. DM -BGM ACHS -ISS ACHS Hypertension -Hydralazine 100mg PO TID -Imdur 60mg PO daily -Nifedipine 60mg PO daily Normocytic anemia -Ferrous sulfate 325mg PO daily -Folic acid 1mg PO daily Acute on chronic kidney disease -Creatinine at 3.5, baseline from prior admissions around 3.0 -Will trend Cr FEN -No IV fluids -Follow CMP -Diabetic sodium, renal controlled diet Prophylaxis -Heparin drip -Coumadin 10mg PO tonight -Pantoprazole 40mg PO BID Disposition -Continue care in telemetry floor. Pending therapeutic INR to d/c heparin and discharge safely. Visit type - Emergency Visit Emergency Visit: Yes ED Registration Date: 12/13/17 Care time: The patient presented to the Emergency Department on the above date and was hospitalized for further evaluation of their emergent condition. - New Patient This patient is new to me today: No - Critical Care Critical Care patient: No - Discharge Referral Referred to [facility] No
--- NOTE | 2017-12-19 11:12 | PN ---
Teaching Attending Note Name of Resident: Raquel Crisostomo ATTENDING PHYSICIAN STATEMENT Time of evaluation: 8:40 AM I saw and evaluated the patient. I reviewed the resident's note and discussed the case with the resident. I agree with the resident's findings and plan as documented with exceptions below. SUBJECTIVE: Patient seen and examined. Breathing overall unchanged, no new chest pain, palpitations or new concerns. OBJECTIVE: Vital Signs Period Temp Pulse Resp BP Sys/Renee Pulse Ox Last 24 Hr 98.2 F-98.5 F 57-69 1-20 124-157/46-66 99 Intake & Output 12/16/17 12/17/17 12/18/17 12/19/17 23:59 23:59 23:59 23:59 Intake Total 624 624 504 240 Balance 624 624 504 240 Weight 188 lb 190 lb 12.8 oz 190 lb 9.6 oz 192 lb 8 oz General: lying in bed in no acute distress Chest: decreased effort, no rales or wheezing Abdomen:Soft, obese, NT Extremities: no edema Active Medications Albuterol/Ipratropium (Duoneb -) 1 amp NEB Q4H PRN PRN Reason: SHORTNESS OF BREATH Aspirin (Ecotrin -) 81 mg PO DAILY [facility] Last Admin: 12/19/17 10:47 Dose: 81 mg Atorvastatin Calcium (Lipitor -) 40 mg PO HS [facility] Last Admin: 12/18/17 22:33 Dose: 40 mg Budesonide/Formoterol Fumarate (Symbicort 160/4.5mcg -) 2 puff IH BID [facility] Last Admin: 12/19/17 10:48 Dose: 2 puff Ferrous Sulfate (Feosol -) 325 mg PO DAILY [facility] Last Admin: 12/19/17 10:48 Dose: 325 mg Folic Acid (Folic Acid -) 1 mg PO DAILY [facility] Last Admin: 12/19/17 10:48 Dose: 1 mg Heparin Sodium (Porcine) (Heparin -) 1,000 unit IVPUSH PRN PRN PRN Reason: Heparin Last Admin: 12/18/17 09:50 Dose: 1,000 unit Heparin Sodium (Porcine) (Heparin -) 5,000 unit IVPUSH PRN PRN PRN Reason: Heparin Last Admin: 12/14/17 09:49 Dose: 5,000 unit Hydralazine HCl (Apresoline -) 50 mg PO TID [facility] Last Admin: 12/19/17 06:38 Dose: 50 mg Heparin Sodium/Dextrose (Heparin Infusion -) 25,000 units in 500 mls @ 20 mls/ hr IV TITR [facility]; Protocol Last Admin: 12/19/17 10:48 Dose: 700 units/hr, 14 mls/hr Insulin Aspart (Novolog Vial Sliding Scale -) 1 vial SQ ACHS [facility]; Protocol Last Admin: 12/19/17 06:37 Dose: Not Given Insulin Detemir (Levemir Vial) 15 units SQ HS [facility] Last Admin: 12/18/17 22:34 Dose: 15 units Isosorbide Mononitrate (Imdur -) 60 mg PO DAILY [facility] Last Admin: 12/19/17 10:48 Dose: 60 mg Metoprolol Succinate (Toprol Xl -) 50 mg PO DAILY [facility] Last Admin: 12/19/17 10:47 Dose: 50 mg Nifedipine (Procardia Xl -) 60 mg PO DAILY [facility] Last Admin: 12/19/17 10:47 Dose: 60 mg Pantoprazole Sodium (Protonix -) 40 mg PO BID [facility] Last Admin: 12/19/17 10:47 Dose: 40 mg Warfarin Sodium (Coumadin -) 10 mg PO DAILY@1800 [facility] Last Admin: 12/18/17 17:01 Dose: Not Given Laboratory Results - last 24 hr 12/18/17 12/18/17 12/19/17 15:00 22:32 05:30 PT with INR 18.20 H INR 1.54 H PTT (Actin FS) 55.2 H Sodium Potassium Chloride Carbon Dioxide Anion Gap BUN Creatinine Creat Clearance w eGFR POC Glucometer 249 Random Glucose Calcium Phosphorus Magnesium B-Natriuretic Peptide 12/19/17 12/19/17 12/19/17 05:30 06:29 10:02 PT with INR INR PTT (Actin FS) 53.8 H Sodium 143 Potassium 4.3 Chloride 116 H Carbon Dioxide 20 L Anion Gap 8 BUN 57 H Creatinine 3.2 H Creat Clearance w eGFR 13.97 POC Glucometer 129 Random Glucose 124 H Calcium 7.8 L Phosphorus 3.2 Magnesium 1.5 L B-Natriuretic Peptide 961.1 H CXR images reviewed no acute process ASSESSMENT AND PLAN: 77 yof with PMHx of Danette randhawa (currently on Coumadin), DM, HTN, COPD, Asthma, DVT, [place] s/p cardiac cath, CKD, LLE DVT, GERD admitted with chest pain, NSTEMi and subtherapeutic INR. -NSTEMI -CKD stage IV (baseline Cr 3.5-3.7) -Afib s/p ablation on coumadin -Subtherapeutic INR -COPD/Asthma - h/o LLE DVT -HTN -IDDM -GERD Plan: Cardiology/pulmonary input noted. Agree V/Q would not exchange floor manager. Patient improved and stable clinically. Heparin drip, coumadin, 10 mg daily Dc heparin when INR 2-3. OFfered cardiac cath but patient declined given risk of contrast induced nephropathy and possible need for HD. medical management with ASA/statin/metoprolol/nifedipine/Imdur. Continue symbicort, prn nebs. No indication for steroids. ISS, diabetic diet, increased levemir to 15 units hs DVTPPX as above PT eval and home oxygen needs assessment. Dispo d/c home when INR therapeutic if continues to improve Plan discussed with patient and all questions answered.
[2017-12-19] MEDS: WARFARIN NA 10 MG TABLET (FP) PO SCH ×2 (16:19→17:09)
[2017-12-19] MEDS: ATORVASTATIN CA 40 MG TABLET (FP) PO SCH (22:22)
[2017-12-19] MEDS: INSULIN (LEVEMIR) 100 UNITS/ML UNITS SQ SCH (22:22)
[2017-12-20] MEDS ORDERED: LOPERAMIDE HCL 2 MG CAPSULE PO ONE (00:15)
[2017-12-20 06:30] LABS: BASO % 0.9 % (0-2.0); EOS % 2.5 % (0-4.5); HEMATOCRIT 29.1 % (32.4-45.2); HEMOGLOBIN 9.4 GM/dL (10.7-15.3); LYMPH % 33.2 % (8-40); MCH 30.8 pg (25.7-33.7); MCHC 32.2 g/dl (32.0-36.0); MEAN CELL VOLUME 95.4 fl (80-96); MEAN PLT VOLUME 9.6 fl (7.5-11.1); MONO % 13.2 % (3.8-10.2); NEUT % 50.2 % (42.8-82.8); PLATELET COUNT 166 K/MM3 (134-434); RBC 3.05 M/mm3 (3.60-5.2); RDW 16.4 % (11.6-15.6); WHITE BLOOD COUNT 6.2 K/mm3 (4.0-10.0)
[2017-12-20] MEDS: INSULIN SLIDING SCALE (NOVOLOG) 1 VIAL SQ SCH ×4 (06:36→21:41)
[2017-12-20] MEDS: hydrALAZINE HCL 50 MG TABLET (FP) PO SCH ×3 (06:37→21:36)
[2017-12-20 06:42] LABS: INR 1.74 (0.83-1.09); PROTHROMBIN TIME (PATIENT) 20.6 SEC (9.7-13.0)
[2017-12-20 06:58] LABS: ALBUMIN 2.5 g/dl (3.4-5.0); ALK PHOS 32 U/L (45-117); ANION GAP 8 MMOL/L (8-16); BILIRUBIN,TOTAL 0.2 mg/dL (0.2-1); BLOOD UREA NITROGEN 49 mg/dL (7-18); CALCIUM 8.1 mg/dL (8.5-10.1); CHLORIDE 115 mmol/L (98-107); CO2 19 mmol/L (21-32); CREATININE 3.1 mg/dL (0.55-1.3); GLUCOSE,RANDOM 107 mg/dL (74-106); MAGNESIUM 1.5 mg/dL (1.8-2.4); PHOSPHOROUS 3.9 mg/dL (2.5-4.9); POTASSIUM 3.9 mmol/L (3.5-5.1); SGOT/AST 16 U/L (15-37); SGPT/ALT 15 U/L (13-61); SODIUM 142 mmol/L (136-145); TOT PROT 5.1 g/dl (6.4-8.2)
[2017-12-20] MEDS: FERROUS SO4 325 MG TABLET (FP) PO SCH (10:08)
[2017-12-20] MEDS: NIFEdipine E.R 60 MG TABLET (UD) PO SCH (10:08)
[2017-12-20] MEDS: PANTOPRAZOLE 40 MG TABLET (FP) PO SCH ×2 (10:08→21:36)
[2017-12-20] MEDS: ISOSORBIDE MONONITRATE 60 MG TAB.SR.24H (FP) PO SCH (10:08)
[2017-12-20] MEDS: ASPIRIN COATED 81 MG TABLET.EC PO SCH (10:08)
[2017-12-20] MEDS: FOLIC ACID 1 MG TABLET (FP) PO SCH (10:08)
--- NOTE | 2017-12-20 10:09 | PN ---
Progress Note, Physician History of Present Illness: PULMONARY ALERT,NO DISTRESS,-SOB AT REST,+JOHNSON - Current Medication List Current Medications: Active Medications Albuterol/Ipratropium (Duoneb -) 1 amp NEB Q4H PRN PRN Reason: SHORTNESS OF BREATH Aspirin (Ecotrin -) 81 mg PO DAILY [facility] Last Admin: 12/19/17 10:47 Dose: 81 mg Atorvastatin Calcium (Lipitor -) 40 mg PO HS [facility] Last Admin: 12/19/17 22:22 Dose: 40 mg Budesonide/Formoterol Fumarate (Symbicort 160/4.5mcg -) 2 puff IH BID [facility] Last Admin: 12/19/17 22:25 Dose: 2 puff Ferrous Sulfate (Feosol -) 325 mg PO DAILY [facility] Last Admin: 12/19/17 10:48 Dose: 325 mg Folic Acid (Folic Acid -) 1 mg PO DAILY [facility] Last Admin: 12/19/17 10:48 Dose: 1 mg Heparin Sodium (Porcine) (Heparin -) 1,000 unit IVPUSH PRN PRN PRN Reason: Heparin Last Admin: 12/18/17 09:50 Dose: 1,000 unit Heparin Sodium (Porcine) (Heparin -) 5,000 unit IVPUSH PRN PRN PRN Reason: Heparin Last Admin: 12/14/17 09:49 Dose: 5,000 unit Hydralazine HCl (Apresoline -) 50 mg PO TID [facility] Last Admin: 12/20/17 06:37 Dose: 50 mg Heparin Sodium/Dextrose (Heparin Infusion -) 25,000 units in 500 mls @ 20 mls/ hr IV TITR [facility]; Protocol Last Admin: 12/19/17 10:48 Dose: 700 units/hr, 14 mls/hr Insulin Aspart (Novolog Vial Sliding Scale -) 1 vial SQ ACHS [facility]; Protocol Last Admin: 12/20/17 06:36 Dose: Not Given Insulin Detemir (Levemir Vial) 15 units SQ [facility] Last Admin: 12/19/17 22:22 Dose: 15 units Isosorbide Mononitrate (Imdur -) 60 mg PO DAILY [facility] Last Admin: 12/19/17 10:48 Dose: 60 mg Metoprolol Succinate (Toprol Xl -) 50 mg PO DAILY [facility] Last Admin: 12/19/17 10:47 Dose: 50 mg Nifedipine (Procardia Xl -) 60 mg PO DAILY [facility] Last Admin: 12/19/17 10:47 Dose: 60 mg Pantoprazole Sodium (Protonix -) 40 mg PO BID [facility] Last Admin: 12/19/17 22:22 Dose: 40 mg Warfarin Sodium (Coumadin -) 10 mg PO DAILY@1800 [facility] Last Admin: 12/19/17 17:09 Dose: Not Given - Objective Vital Signs: Vital Signs Temperature 98.4 F 12/20/17 06:00 Pulse Rate 58 L 12/20/17 06:00 Respiratory Rate 20 12/20/17 08:11 Blood Pressure 164/60 12/20/17 06:00 O2 Sat by Pulse Oximetry (%) 98 12/20/17 08:11 Constitutional: Yes: Well Nourished, Calm Eyes: Yes: WNL HENT: Yes: WNL Neck: Yes: WNL Cardiovascular: Yes: Pulse Irregular, S1, S2 Respiratory: Yes: Diminished Gastrointestinal: Yes: Normal Bowel Sounds, Soft Extremities: Yes: WNL Edema: No Labs: CBC, BMP 12/20/17 05:30 12/20/17 05:30 INR, PTT INR 1.74 (0.83-1.09) H 12/20/17 05:30 Assessment/Plan Problem List - Problems (1) NSTEMI (non-ST elevated myocardial infarction) Code(s): I21.4 - NON-ST ELEVATION (NSTEMI) MYOCARDIAL INFARCTION (2) Shortness of breath Code(s): R06.02 - SHORTNESS OF BREATH (3) Afib Code(s): I48.91 - UNSPECIFIED ATRIAL FIBRILLATION (4) CKD (chronic kidney disease) Code(s): N18.9 - CHRONIC KIDNEY DISEASE, UNSPECIFIED (5) COPD (chronic obstructive pulmonary disease) Code(s): J44.9 - CHRONIC OBSTRUCTIVE PULMONARY DISEASE, UNSPECIFIED Qualifiers: COPD type: chronic bronchitis (6) Diastolic CHF Code(s): I50.30 - UNSPECIFIED DIASTOLIC (CONGESTIVE) HEART FAILURE Qualifiers: Heart failure chronicity: chronic Qualified Code(s): I50.32 - Chronic diastolic (congestive) heart failure (7) CAD (coronary artery disease) Code(s): I25.10 - ATHSCL HEART DISEASE OF [place] CORONARY ARTERY W/O ANG PCTRS (8) History of DVT (deep vein thrombosis) Code(s): Z86.718 - PERSONAL HISTORY OF OTHER VENOUS THROMBOSIS AND EMBOLISM Assessment/Plan Acute NSTEMI LV Diastolic Dysfunction Pulmonary HTN Atrial Fibrillation COPD CKD h/o DVT HTN DM - Heparin /coumadin - ASA, plavix - beta kath, statin - O2 as needed - inhaled bronchodilators - monitor INR DR GOULD
[2017-12-20] MEDS: HEPARIN INFUSION - 25,000 UNITS/500 ML INFUS.BAG IV SCH ×2 (10:10→21:36)
[2017-12-20] MEDS: BUDESONIDE/FORMETEROL FUMARATE 160/4.5 mcg INHALER IH SCH ×2 (10:11→21:35)
[2017-12-20] MEDS ORDERED: MAGNESIUM SULF 50% (8.12 MEQ/2 ML-1 GM VIAL) IVPB ONE (11:00)
[2017-12-20 11:23] LABS: HEMATOCRIT 31.9 % (32.4-45.2); HEMOGLOBIN 10.5 GM/dL (10.7-15.3); MCH 31.3 pg (25.7-33.7); MCHC 32.9 g/dl (32.0-36.0); MEAN CELL VOLUME 95.2 fl (80-96); MEAN PLT VOLUME 9.4 fl (7.5-11.1); PLATELET COUNT 193 K/MM3 (134-434); RBC 3.35 M/mm3 (3.60-5.2); RDW 16.7 % (11.6-15.6)
[2017-12-20] MEDS: MAGNESIUM OXIDE 400 MG TABLET (FP) PO SCH (12:06)
--- NOTE | 2017-12-20 15:57 | PN ---
Physical Exam: SUBJECTIVE: Patient seen and examined, no new complaints, diarrhea resolved. Breathing overall unchanged. OBJECTIVE: Vital Signs Period Temp Pulse Resp BP Sys/Renee Pulse Ox Last 24 Hr 98.3 F-98.6 F 58-68 18-20 130-168/53-65 98-98 GENERAL: AA, mild dyspnea with activity, able to talk in full sentences CVS:S1S2 irregular Chest: good air entry, no rales or wheezing Abdomen:soft, obese, NT Extremities: no edema Neck: soft, supple, no JVD Laboratory Results - last 24 hr 12/19/17 12/20/17 12/20/17 21:57 05:30 05:30 WBC 6.2 RBC 3.05 L Hgb 9.4 L Hct 29.1 L MCV 95.4 MCH 30.8 MCHC 32.2 RDW 16.4 H Plt Count 166 MPV 9.6 Absolute Neuts (auto) 3.1 Neutrophils % 50.2 D Lymphocytes % 33.2 D Monocytes % 13.2 H Eosinophils % 2.5 D Basophils % 0.9 D Nucleated RBC % 0 PT with INR 20.60 H INR 1.74 H Sodium Potassium Chloride Carbon Dioxide Anion Gap BUN Creatinine Creat Clearance w eGFR POC Glucometer 207 Random Glucose Calcium Phosphorus Magnesium Total Bilirubin AST ALT Alkaline Phosphatase Total Protein Albumin 12/20/17 12/20/17 12/20/17 05:30 06:35 11:15 WBC 6.0 RBC 3.35 L Hgb 10.5 L Hct 31.9 L MCV 95.2 MCH 31.3 MCHC 32.9 RDW 16.7 H Plt Count 193 MPV 9.4 Absolute Neuts (auto) Neutrophils % Lymphocytes % Monocytes % Eosinophils % Basophils % Nucleated RBC % PT with INR INR Sodium 142 Potassium 3.9 Chloride 115 H Carbon Dioxide 19 L Anion Gap 8 BUN 49 H Creatinine 3.1 H Creat Clearance w eGFR 14.49 POC Glucometer 116 Random Glucose 107 H Calcium 8.1 L Phosphorus 3.9 Magnesium 1.5 L Total Bilirubin 0.2 AST 16 ALT 15 Alkaline Phosphatase 32 L Total Protein 5.1 L Albumin 2.5 L Active Medications Generic Name Dose Route Start Last Admin Trade Name Freq PRN Reason Stop Dose Admin Albuterol/Ipratropium 1 amp 12/16/17 14:59 Duoneb - NEB Q4H PRN SHORTNESS OF BREATH Aspirin 81 mg 12/14/17 10:00 12/20/17 10:08 Ecotrin - PO 81 mg DAILY [facility] Administration Atorvastatin Calcium 40 mg 12/15/17 22:00 12/19/17 22:22 Lipitor - PO 40 mg HS [facility] Administration Budesonide/Formoterol Fumarate 2 puff 12/16/17 22:00 12/20/17 10:11 Symbicort 160/4.5mcg - IH 2 puff BID [facility] Administration Ferrous Sulfate 325 mg 12/14/17 10:00 12/20/17 10:08 Feosol - PO 325 mg DAILY [facility] Administration Folic Acid 1 mg 12/14/17 10:00 12/20/17 10:08 Folic Acid - PO 1 mg DAILY [facility] Administration Heparin Sodium (Porcine) 1,000 unit 12/14/17 08:25 12/18/17 09:50 Heparin - IVPUSH 1,000 unit PRN PRN Administration Heparin Heparin Sodium (Porcine) 5,000 unit 12/14/17 09:01 12/14/17 09:49 Heparin - IVPUSH 5,000 unit PRN PRN Administration Heparin Hydralazine HCl 50 mg 12/15/17 11:17 12/20/17 13:06 Apresoline - PO 50 mg TID [facility] Administration Heparin Sodium/Dextrose 25,000 units in 500 mls @ 20 mls/hr 12/14/17 09:30 10:10 Heparin Infusion - IV 700 units/hr TITR [facility] 14 mls/hr Administration Protocol 1,000 UNITS/HR Insulin Aspart 1 vial 12/14/17 07:00 12/20/17 10:53 Novolog Vial Sliding Scale - SQ Not Given ACHS [facility] Protocol Insulin Detemir 15 units 12/18/17 12:53 12/19/17 22:22 Levemir Vial SQ 15 units HS [facility] Administration Isosorbide Mononitrate 60 mg 12/16/17 15:00 12/20/17 10:08 Imdur - PO 60 mg DAILY [facility] Administration Magnesium Oxide 800 mg 12/20/17 10:45 12/20/17 12:06 Mag-Ox - PO 12/22/17 10:01 800 mg DAILY [facility] Administration Metoprolol Succinate 50 mg 12/15/17 10:00 12/20/17 10:08 Toprol Xl - PO 50 mg DAILY [facility] Administration Nifedipine 60 mg 12/14/17 10:00 12/20/17 10:08 Procardia Xl - PO 60 mg DAILY [facility] Administration Pantoprazole Sodium 40 mg 12/14/17 10:00 12/20/17 10:08 Protonix - PO 40 mg BID [facility] Administration Vancomycin HCl 125 mg 12/20/17 18:00 Vancomycin Oral Solution PO Q6HPO [facility] Warfarin Sodium 10 mg 12/18/17 18:00 12/19/17 17:09 Coumadin - PO Not Given DAILY@1800 [facility] ASSESSMENT/PLAN: 77 yof with PMHx of Danette randhawa (currently on Coumadin), DM, HTN, COPD, Asthma, DVT, [place] s/p cardiac cath, CKD, LLE DVT, GERD admitted with chest pain, NSTEMi and subtherapeutic INR. -NSTEMI -CKD stage IV (baseline Cr 3.5-3.7) -Afib s/p ablation on coumadin -Subtherapeutic INR -Acute C defficile colitis. -COPD/Asthma - h/o LLE DVT -HTN -IDDM -GERD Plan: Cardiology/pulmonary input noted. Agree V/Q would not pattern changer and repairer. Patient improved and stable clinically. Heparin drip, coumadin, 10 mg daily Dc heparin when INR 2-3. OFfered cardiac cath but patient declined given risk of contrast induced nephropathy and possible need for HD. medical management with ASA/statin/metoprolol/nifedipine/Imdur. Continue symbicort, prn nebs. No indication for steroids. ISS, diabetic diet, increased levemir to 15 units hs Diarrhea improved, Stool C defficile ag positive, given symptoms, will treat, start po vancomycin for 10-14 days. DVTPPX as above no home oxygen needs noted. PT eval noted. Dispo d/c home in 24-48 hours when INR therapeutic if no new diarrhea or concerns. Plan discussed with patient and nursing, all questions answered. Visit type - Emergency Visit Emergency Visit: Yes ED Registration Date: 12/13/17 Care time: The patient presented to the Emergency Department on the above date and was hospitalized for further evaluation of their emergent condition. - New Patient This patient is new to me today: No - Critical Care Critical Care patient: No - Discharge Referral Referred to [facility] No
[2017-12-20] MEDS: HEPARIN NA (PORCINE) 5,000 UNITS/ML 1ML VIAL IVPUSH PRN (16:38)
[2017-12-20] MEDS: VANCOMYCIN 250 MG/5 ML ORAL SOLUTION PO SCH ×2 (17:45→23:08)
[2017-12-20] MEDS: WARFARIN NA 10 MG TABLET (FP) PO SCH (17:45)
[2017-12-20] MEDS ORDERED: PT OWN MED DRAWER 7, Y5N ONE ×2 (18:00→21:28)
[2017-12-20] MEDS: ATORVASTATIN CA 40 MG TABLET (FP) PO SCH (21:36)
[2017-12-20] MEDS: INSULIN (LEVEMIR) 100 UNITS/ML UNITS SQ SCH (21:41)
[2017-12-21] MEDS: hydrALAZINE HCL 50 MG TABLET (FP) PO SCH ×3 (05:16→21:34)
[2017-12-21] MEDS: VANCOMYCIN 250 MG/5 ML ORAL SOLUTION PO SCH ×4 (05:16→23:20)
[2017-12-21] MEDS: INSULIN SLIDING SCALE (NOVOLOG) 1 VIAL SQ SCH ×4 (06:01→22:09)
[2017-12-21 07:22] LABS: INR 1.64 (0.83-1.09); PROTHROMBIN TIME (PATIENT) 19.5 SEC (9.7-13.0)
[2017-12-21 07:30] LABS: ACTIVATED PTT 76.1 SECONDS (25.2-36.5)
[2017-12-21] MEDS ORDERED: PT OWN MED DRAWER 7, Y5N ONE (09:09)
[2017-12-21] MEDS: ISOSORBIDE MONONITRATE 60 MG TAB.SR.24H (FP) PO SCH (09:14)
[2017-12-21] MEDS: PANTOPRAZOLE 40 MG TABLET (FP) PO SCH ×2 (09:14→21:34)
[2017-12-21] MEDS: FOLIC ACID 1 MG TABLET (FP) PO SCH (09:15)
[2017-12-21] MEDS: FERROUS SO4 325 MG TABLET (FP) PO SCH (09:15)
[2017-12-21] MEDS: ASPIRIN COATED 81 MG TABLET.EC PO SCH (09:16)
[2017-12-21] MEDS: MAGNESIUM OXIDE 400 MG TABLET (FP) PO SCH (09:16)
[2017-12-21] MEDS: NIFEdipine E.R 60 MG TABLET (UD) PO SCH (09:17)
[2017-12-21] MEDS: BUDESONIDE/FORMETEROL FUMARATE 160/4.5 mcg INHALER IH SCH ×2 (09:18→22:10)
[2017-12-21] MEDS ORDERED: INSULIN (NOVOLOG) ASPART 100 UNITS/ML 10ML VIAL ONE (11:52)
--- NOTE | 2017-12-21 12:01 | PN ---
Progress Note (short form) - Note Progress Note: PULMONARY Breathing at baseline. No chest pain. No fevers or chills. Vital Signs Period Temp Pulse Resp BP Sys/Renee Pulse Ox Last 24 Hr 97.7 F-99.0 F 60-64 18-20 128-154/42-59 96-96 Gen: NAD at rest Heart: RRR Lung: decreased breath sounds at the bases Abd: soft, nontender Ext: no edema CBC, BMP 12/20/17 11:15 12/20/17 05:30 Active Medications Albuterol/Ipratropium (Duoneb -) 1 amp NEB Q4H PRN PRN Reason: SHORTNESS OF BREATH Last Admin: 12/20/17 22:33 Dose: 1 amp Aspirin (Ecotrin -) 81 mg PO DAILY [facility] Last Admin: 12/21/17 09:16 Dose: 81 mg Atorvastatin Calcium (Lipitor -) 40 mg PO HS [facility] Last Admin: 12/20/17 21:36 Dose: 40 mg Budesonide/Formoterol Fumarate (Symbicort 160/4.5mcg -) 2 puff IH BID [facility] Last Admin: 12/21/17 09:18 Dose: 2 puff Ferrous Sulfate (Feosol -) 325 mg PO DAILY [facility] Last Admin: 12/21/17 09:15 Dose: 325 mg Folic Acid (Folic Acid -) 1 mg PO DAILY [facility] Last Admin: 12/21/17 09:15 Dose: 1 mg Heparin Sodium (Porcine) (Heparin -) 5,000 unit IVPUSH PRN PRN PRN Reason: Heparin Last Admin: 12/14/17 09:49 Dose: 5,000 unit Hydralazine HCl (Apresoline -) 50 mg PO TID [facility] Last Admin: 12/21/17 05:16 Dose: 50 mg Heparin Sodium/Dextrose (Heparin Infusion -) 25,000 units in 500 mls @ 20 mls/ hr IV TITR [facility]; Protocol Last Titration: 12/21/17 08:16 Dose: 700 units/hr, 14 mls/hr Insulin Aspart (Novolog Vial Sliding Scale -) 1 vial SQ ACHS [facility]; Protocol Last Admin: 12/21/17 06:01 Dose: 2 units Insulin Detemir (Levemir Vial) 15 units SQ HS [facility] Last Admin: 12/20/17 21:41 Dose: Not Given Isosorbide Mononitrate (Imdur -) 60 mg PO DAILY [facility] Last Admin: 12/21/17 09:14 Dose: 60 mg Magnesium Oxide (Mag-Ox -) 800 mg PO DAILY [facility] Stop: 12/22/17 10:01 Last Admin: 12/21/17 09:16 Dose: 800 mg Metoprolol Succinate (Toprol Xl -) 50 mg PO DAILY [facility] Last Admin: 12/21/17 09:14 Dose: 50 mg Nifedipine (Procardia Xl -) 60 mg PO DAILY [facility] Last Admin: 12/21/17 09:17 Dose: 60 mg Pantoprazole Sodium (Protonix -) 40 mg PO BID [facility] Last Admin: 12/21/17 09:14 Dose: 40 mg Vancomycin HCl (Vancomycin Oral Solution) 125 mg PO Q6HPO [facility] Last Admin: 12/21/17 05:16 Dose: 125 mg Warfarin Sodium (Coumadin -) 10 mg PO DAILY@1800 [facility] Last Admin: 12/20/17 17:45 Dose: 10 mg A/P Acute NSTEMI LV Diastolic Dysfunction Pulmonary HTN Atrial Fibrillation COPD CKD +C Diff h/o DVT HTN DM - continue anticoagulation to target INR 2-3 - ASA, plavix - beta kath, statin - O2 as needed - inhaled bronchodilators - continue antibiotics - can defer systemic steroids at this time - outpt f/u Problem List - Problems (1) NSTEMI (non-ST elevated myocardial infarction) Code(s): I21.4 - NON-ST ELEVATION (NSTEMI) MYOCARDIAL INFARCTION (2) Shortness of breath Code(s): R06.02 - SHORTNESS OF BREATH (3) Afib Code(s): I48.91 - UNSPECIFIED ATRIAL FIBRILLATION (4) CKD (chronic kidney disease) Code(s): N18.9 - CHRONIC KIDNEY DISEASE, UNSPECIFIED (5) COPD (chronic obstructive pulmonary disease) Code(s): J44.9 - CHRONIC OBSTRUCTIVE PULMONARY DISEASE, UNSPECIFIED Qualifiers: COPD type: chronic bronchitis (6) Diastolic CHF Code(s): I50.30 - UNSPECIFIED DIASTOLIC (CONGESTIVE) HEART FAILURE Qualifiers: Heart failure chronicity: chronic Qualified Code(s): I50.32 - Chronic diastolic (congestive) heart failure (7) CAD (coronary artery disease) Code(s): I25.10 - ATHSCL HEART DISEASE OF [place] CORONARY ARTERY W/O ANG PCTRS (8) History of DVT (deep vein thrombosis) Code(s): Z86.718 - PERSONAL HISTORY OF OTHER VENOUS THROMBOSIS AND EMBOLISM
--- NOTE | 2017-12-21 12:40 | CONSULT ---
Consult Consult Specialty:: Heme/Onc Referred by:: Dr. Spivey Reason for Consultation:: Subtherapeutic INR on coumadin - History of Present Illness Chief Complaint: Chest pain SOB History of Present Illness: 77F with extensive PMH including HTN, DM, A fib s/p ablation on coumadin, LLE DVT, COPD/Asthma, presented to the ED a couple of days after discharge with shortness of breath and chest pain radiating down her left arm. She was worked up and found to have NSTEMI. Patient denied catheterization due to risk of VIKAS. Hematology service asked to see patient due to being on high doses of Coumadin ( 10mg) with no elevation of INR. Her INR is 1.64 today despits getting 10mg of coumadin for the past 3 days. Patient states she is very frustrated with her INR and coumadin. She states she was on 7mg then was broguth down to 6 then eventually 5mg based on her INR done weekly as outpatient. Dr. Griffith is her palletizer and Dr. To is her nepohrologist. She currently denies nausea vomiting fever chills chest pain shortness of breath GI bleeding or urinary symptoms. Patient denies eating excessive leafy greens or changing her diet. She denies starting new medications. - Past Medical History [employer]: Yes: Peripheral Neuropathy Cardio/Vascular: Yes: AFIB, CHF, HTN, Hyperlipdemia, Other (Atrial flutter s/p ablation, PAD) Pulmonary: Yes: COPD Renal/: Yes: Renal Inusuff (stage 4), Other (Overactive Bladder) Psych: Yes: Depression Endocrine: Yes: Diabetes Mellitus (initially on oral agents, now on insulin) - Past Surgical History Past Surgical History: Yes: Colonoscopy (polyps a few years ago), Hysterectomy ( fibroids), Tubal Ligation, Upper Endoscopy (neg 1+ yrs ago) - Alcohol/Substance Use Hx Alcohol Use: No - Smoking History Smoking history: Former smoker Have you smoked in the past 12 months: No Aproximately how many cigarettes per day: 1 If you are a former smoker, when did you quit?: 1 year ago - Social History Usual Living Arrangement: With Child ADL: Family Assistance History of Recent Travel: No Home Medications - Allergies Allergies/Adverse Reactions: Allergies Allergy/AdvReac Type Severity Reaction Status Date / Time No Known Allergies Allergy Verified 12/13/17 18:25 - Home Medications Home Medications: Ambulatory Orders hydrALAZINE HCL [Apresoline -] 100 mg PO Q8H 01/28/17 Ferrous Sulfate 325 mg PO DAILY 02/02/17 Folic Acid 1 mg PO DAILY 12/09/17 Isosorbide Mononitrate [Isosorbide Mononitrate ER] 60 mg PO DAILY 12/09/17 Nifedipine [Nifedipine ER] 60 mg PO DAILY 12/09/17 Pantoprazole Sodium 40 mg PO BID 12/09/17 Tolterodine Tartrate 2 mg PO BID 12/09/17 Umeclidinium Brm/Vilanterol Tr [Anoro Ellipta 62.5-25 Mcg INH] 1 puff IH DAILY 12/09/17 Albuterol 2.5/Ipratropium 0.5 [Duoneb -] 1 amp NEB RQID amp 12/11/17 Budesonide/Formeterol Fumarate [SYMBICORT 160/4.5mcg -] 2 puff IH BID #1 inhaler 12/11/17 Sodium Bicarbonate - 650 mg PO BID #40 tablet 12/11/17 predniSONE [Deltasone -] See Taper PO ASDIR 6 Days #17 tab 12/11/17 Insulin (Levemir) [Levemir Vial] 20 units SQ HS 12/14/17 Warfarin Sodium [Coumadin] 6 mg PO BID 12/15/17 Family Disease History - Family Disease History Family Disease History: Diabetes: Grandparent, Mother, Sister (lung cancer), CA : Sister Review of Systems - Review of Systems Constitutional: reports: No Symptoms Eyes: reports: No Symptoms HENT: reports: No Symptoms Neck: reports: No Symptoms Cardiovascular: reports: No Symptoms Respiratory: reports: No Symptoms Gastrointestinal: reports: No Symptoms Genitourinary: reports: No Symptoms Breasts: reports: No Symptoms Reported Physical Exam Vital Signs: Vital Signs Temperature 97.7 F 12/21/17 08:34 Pulse Rate 60 12/21/17 08:34 Respiratory Rate 18 12/21/17 08:34 Blood Pressure 133/46 L 12/21/17 08:34 O2 Sat by Pulse Oximetry (%) 96 12/21/17 10:00 Constitutional: Yes: No Distress, Obese Eyes: Yes: Conjunctiva Clear HENT: Yes: Atraumatic Neck: Yes: Supple Cardiovascular: Yes: Regular Rate and Rhythm, Murmur (3/6 RUSB) Respiratory: Yes: CTA Bilaterally Gastrointestinal: Yes: Normal Bowel Sounds, Soft Neurological: Yes: Alert, Oriented Labs: CBC, BMP 12/20/17 11:15 12/20/17 05:30 Assessment/Plan 77F with extensive PMH who presented with chest pain found to have NSTEMI is on heparin gtt and subtherapeutic on coumadin despite increasing dose to 10mg. NSTEMI Acute C dif CKD stage 4 Afib s/p ablation on coumadin HTN IDDM GERD Subtherapeutic INR COPD Asthma h/o LLE DVT Plan: continue heparin gtt for now will get nephrology to see patient to assess renal function and to help assist in choice of anticoagulant Will consider eliquis if ok by nephrology will give 13mg of coumadin nia Mai Coags Discussed with Dr. Calles
--- NOTE | 2017-12-21 13:04 | PN ---
Physical Exam: SUBJECTIVE: Patient seen and examined. Pt. did not have a BM last night, endorses SOB that has not gotten worse or better since yesterday. Pt had inreased SOB last night and was given 1 amp Duoneb to good effect. Pt. denes any other complaints except chronic SOB. OBJECTIVE: Vital Signs Period Temp Pulse Resp BP Sys/Renee Pulse Ox Last 24 Hr 97.7 F-99.0 F 60-64 18-20 128-154/42-59 96-96 GENERAL: The patient is awake, alert, and fully oriented, in no acute distress. EYES: sclera anicteric, conjunctiva clear. No ptosis. ENT: Ears normal, nares patent, moist mucous membranes. LUNGS: Breath sounds equal, clear to auscultation bilaterally, no wheezes, no crackles, no accessory muscle use. HEART: Regular rate and rhythm, S1, S2 without murmur ABDOMEN: Soft, nontender, nondistended, normoactive bowel sounds, no guarding, no rebound EXTREMITIES: 2+ dorsal pedal pulses b/l, 2+ right radial pulse, no calf tenderness warm, well-perfused, no edema. NEUROLOGICAL: Normal speech, gait not observed. PSYCH: Normal mood, normal affect. SKIN: Warm, dry, normal turgor Laboratory Results - last 24 hr 12/20/17 12/20/17 12/20/17 15:30 16:37 20:30 PT with INR INR PTT (Actin FS) 41.8 H 80.8 H POC Glucometer 240 Magnesium 12/20/17 12/21/17 12/21/17 21:34 05:19 06:00 PT with INR 19.50 H INR 1.64 H PTT (Actin FS) 76.1 H POC Glucometer 134 196 Magnesium 12/21/17 12/21/17 06:00 11:45 PT with INR INR PTT (Actin FS) POC Glucometer 212 Magnesium 1.8 Active Medications Current Medications Albuterol/Ipratropium (Duoneb -) 1 amp NEB Q4H PRN PRN Reason: SHORTNESS OF BREATH Last Admin: 12/20/17 22:33 Dose: 1 amp Aspirin (Ecotrin -) 81 mg PO DAILY [facility] Last Admin: 12/21/17 09:16 Dose: 81 mg Atorvastatin Calcium (Lipitor -) 40 mg PO HS [facility] Last Admin: 12/20/17 21:36 Dose: 40 mg Budesonide/Formoterol Fumarate (Symbicort 160/4.5mcg -) 2 puff IH BID [facility] Last Admin: 12/21/17 09:18 Dose: 2 puff Ferrous Sulfate (Feosol -) 325 mg PO DAILY [facility] Last Admin: 12/21/17 09:15 Dose: 325 mg Folic Acid (Folic Acid -) 1 mg PO DAILY [facility] Last Admin: 12/21/17 09:15 Dose: 1 mg Heparin Sodium (Porcine) (Heparin -) 5,000 unit IVPUSH PRN PRN PRN Reason: Heparin Last Admin: 12/14/17 09:49 Dose: 5,000 unit Hydralazine HCl (Apresoline -) 50 mg PO TID [facility] Last Admin: 12/21/17 13:15 Dose: 50 mg Heparin Sodium/Dextrose (Heparin Infusion -) 25,000 units in 500 mls @ 20 mls/ hr IV TITR [facility]; Protocol Last Titration: 12/21/17 08:16 Dose: 700 units/hr, 14 mls/hr Insulin Aspart (Novolog Vial Sliding Scale -) 1 vial SQ [facility]; Protocol Last Admin: 12/21/17 11:57 Dose: 4 units Insulin Detemir (Levemir Vial) 15 units SQ [facility] Last Admin: 12/20/17 21:41 Dose: Not Given Isosorbide Mononitrate (Imdur -) 60 mg PO DAILY [facility] Last Admin: 12/21/17 09:14 Dose: 60 mg Magnesium Oxide (Mag-Ox -) 800 mg PO DAILY [facility] Stop: 12/22/17 10:01 Last Admin: 12/21/17 09:16 Dose: 800 mg Metoprolol Succinate (Toprol Xl -) 50 mg PO DAILY [facility] Last Admin: 12/21/17 09:14 Dose: 50 mg Nifedipine (Procardia Xl -) 60 mg PO DAILY [facility] Last Admin: 12/21/17 09:17 Dose: 60 mg Pantoprazole Sodium (Protonix -) 40 mg PO BID [facility] Last Admin: 12/21/17 09:14 Dose: 40 mg Vancomycin HCl (Vancomycin Oral Solution) 125 mg PO Q6HPO [facility] Last Admin: 12/21/17 11:57 Dose: 125 mg Warfarin Sodium (Coumadin -) 10 mg PO DAILY@1800 [facility] Last Admin: 12/20/17 17:45 Dose: 10 mg ASSESSMENT/PLAN: Patient is a 77 year old female with history significant for hypertension, diabetes, atrial fibrillation (s/p ablation, on Coumadin), left lower extremity DVT, asthma, COPD presents with complaint of chest pain and shortness of breath. Afib-resolving -INR subtherapeutic at 1.6 -Coumadin 13mg PO tonight, resume 10mg PO Daily tomorrow. -Will follow PT/INR. Goal 2-3. Acute hypoxic respiratory failure-resolved -Could be secondary to COPD, ECHO with no evidence of CHF, PE not as likely although considered initially, but pt has been on anticoagulation on heparin for NSTEMI -Could be due to overload from heparin infusion, but CXR- 12/18/17 shows no evidence of congestion, BNP-900s, improved from prior - Pt intermittently dyspneic usually on mild exertion - V/Q scan dcd as not necessary by Pulm although recommended earlier by cards as pt already on anticoagulation -CTA not possible with poor renal function -Cont supplementa oxygen as needed to maintain sats>90% -Pre and post -CXR- clear 12/18/17 NSTEMI-resolved -Troponins peaked and trended down -0.51 -> 2.04 -> 2.24 -> 1.52 -Heparin drip, will continue until INR therapeutic. -Pt on started here on metoprolol succinate 50mg PO daily with cardiology recommendation. -Plavix discontinued with cardiology recommendation -Aspirin 81mg daily -Atorvastatin 80mg PO daily -Cardiology consult (Dr. Griffith) appreciated. No left heart catheterization as risks of contrast induced nephropathy outweigh the benefits with CKD. Will continue conservative management. -Physical therapist evaluation notes she walked 25 feet. -Will obtain pre-post exercise oxygenation today. DM-stable -BGM ACHS -ISS ACHS Hypertension-stable -Hydralazine 100mg PO TID -Imdur 60mg PO daily -Nifedipine 60mg PO daily Normocytic anemia-stable -Ferrous sulfate 325mg PO daily -Folic acid 1mg PO daily Acute on chronic kidney disease-stable -Creatinine at 3.5, baseline from prior admissions around 3.0 -Will trend Cr FEN -No IV fluids -Follow CMP -Diabetic sodium, renal controlled diet Prophylaxis -Heparin drip -Coumadin 10mg PO tonight -Pantoprazole 40mg PO BID Disposition -Continue care in telemetry floor. Pending therapeutic INR to d/c heparin and discharge safely. Visit type - Emergency Visit Emergency Visit: Yes ED Registration Date: 12/13/17 Care time: The patient presented to the Emergency Department on the above date and was hospitalized for further evaluation of their emergent condition. - New Patient This patient is new to me today: Yes Date on this admission: 12/21/17 - Critical Care Critical Care patient: No - Discharge Referral Referred to [facility] No
--- NOTE | 2017-12-21 13:22 | PN ---
Teaching Attending Note Name of Resident: Gustavo Leon ATTENDING PHYSICIAN STATEMENT I saw and evaluated the patient. I reviewed the resident's note and discussed the case with the resident. I agree with the resident's findings and plan as documented with exceptions below. SUBJECTIVE: Patient seen and examined. breathing better, frustrated about INR and coumadin, no new concerns otherwise. OBJECTIVE: Vital Signs Period Temp Pulse Resp BP Sys/Renee Pulse Ox Last 24 Hr 97.7 F-99.0 F 60-64 18-20 128-154/42-59 96-96 Intake & Output 12/18/17 12/19/17 12/20/17 12/21/17 23:59 23:59 23:59 23:59 Intake Total 794 717 1288 475 Balance 577 716 0320 475 Weight 190 lb 9.6 oz 192 lb 8 oz 190 lb 9.6 oz General: sitting in bed off oxygen, no acute distress or dyspnea Chest: CTAB, no rales or wheezing Abdomen:Soft, NT, ND extremities: trace pedal edema Active Medications Albuterol/Ipratropium (Duoneb -) 1 amp NEB Q4H PRN PRN Reason: SHORTNESS OF BREATH Last Admin: 12/20/17 22:33 Dose: 1 amp Aspirin (Ecotrin -) 81 mg PO DAILY [facility] Last Admin: 12/21/17 09:16 Dose: 81 mg Atorvastatin Calcium (Lipitor -) 40 mg PO HS [facility] Last Admin: 12/20/17 21:36 Dose: 40 mg Budesonide/Formoterol Fumarate (Symbicort 160/4.5mcg -) 2 puff IH BID [facility] Last Admin: 12/21/17 09:18 Dose: 2 puff Ferrous Sulfate (Feosol -) 325 mg PO DAILY [facility] Last Admin: 12/21/17 09:15 Dose: 325 mg Folic Acid (Folic Acid -) 1 mg PO DAILY [facility] Last Admin: 12/21/17 09:15 Dose: 1 mg Heparin Sodium (Porcine) (Heparin -) 5,000 unit IVPUSH PRN PRN PRN Reason: Heparin Last Admin: 12/14/17 09:49 Dose: 5,000 unit Hydralazine HCl (Apresoline -) 50 mg PO TID [facility] Last Admin: 12/21/17 13:15 Dose: 50 mg Heparin Sodium/Dextrose (Heparin Infusion -) 25,000 units in 500 mls @ 20 mls/ hr IV TITR [facility]; Protocol Last Titration: 12/21/17 08:16 Dose: 700 units/hr, 14 mls/hr Insulin Aspart (Novolog Vial Sliding Scale -) 1 vial SQ ACHS [facility]; Protocol Last Admin: 12/21/17 11:57 Dose: 4 units Insulin Detemir (Levemir Vial) 15 units SQ HS [facility] Last Admin: 12/20/17 21:41 Dose: Not Given Isosorbide Mononitrate (Imdur -) 60 mg PO DAILY [facility] Last Admin: 12/21/17 09:14 Dose: 60 mg Magnesium Oxide (Mag-Ox -) 800 mg PO DAILY [facility] Stop: 12/22/17 10:01 Last Admin: 12/21/17 09:16 Dose: 800 mg Metoprolol Succinate (Toprol Xl -) 50 mg PO DAILY [facility] Last Admin: 12/21/17 09:14 Dose: 50 mg Nifedipine (Procardia Xl -) 60 mg PO DAILY [facility] Last Admin: 12/21/17 09:17 Dose: 60 mg Pantoprazole Sodium (Protonix -) 40 mg PO BID [facility] Last Admin: 12/21/17 09:14 Dose: 40 mg Vancomycin HCl (Vancomycin Oral Solution) 125 mg PO Q6HPO [facility] Last Admin: 12/21/17 11:57 Dose: 125 mg Warfarin Sodium (Coumadin -) 10 mg PO DAILY@1800 [facility] Last Admin: 12/20/17 17:45 Dose: 10 mg Laboratory Results - last 24 hr 12/20/17 12/20/17 12/20/17 15:30 16:37 20:30 PT with INR INR PTT (Actin FS) 41.8 H 80.8 H POC Glucometer 240 Magnesium 12/20/17 12/21/17 12/21/17 21:34 05:19 06:00 PT with INR 19.50 H INR 1.64 H PTT (Actin FS) 76.1 H POC Glucometer 134 196 Magnesium 12/21/17 12/21/17 06:00 11:45 PT with INR INR PTT (Actin FS) POC Glucometer 212 Magnesium 1.8 ASSESSMENT AND PLAN: 77 yof with PMHx of Danette randhawa (currently on Coumadin), DM, HTN, COPD, Asthma, DVT, CT s/p cardiac cath, CKD, LLE DVT, GERD admitted with chest pain, NSTEMi and subtherapeutic INR. -NSTEMI -CKD stage IV (baseline Cr 3.5-3.7) -Afib s/p ablation on coumadin -Subtherapeutic INR -Acute C defficile colitis. -COPD/Asthma - h/o LLE DVT -HTN -IDDM -GERD Plan: Cardiology/pulmonary input noted. 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 Patient improved and stable clinically. Heparin drip, INR dropping inspite of high doses of coumadin. hematology input noted. Renal input to see if patient can be a candidate for NOAC. Offered cardiac cath but patient declined given risk of contrast induced nephropathy and possible need for HD. medical management with ASA/statin/metoprolol/nifedipine/Imdur. Continue symbicort, prn nebs. No indication for steroids. ISS, diabetic diet, levemir to 15 units hs, titrate up to home regimen as indicated. Diarrhea improved, Stool C defficile ag positive, given symptoms, will treat, PO vancomycin 2/10 DVTPPX as above no home oxygen needs noted. PT eval noted. Dispo d/c home pending therapeutic INR vs final plan for anti-coagulation Plan discussed with patient and nursing, all questions answered.
[2017-12-21] MEDS ORDERED: WARFARIN NA 3 MG TABLET ONE (17:25)
[2017-12-21] MEDS ORDERED: WARFARIN NA 10 MG TABLET (FP) ONE (17:26)
[2017-12-21] MEDS: HEPARIN INFUSION - 25,000 UNITS/500 ML INFUS.BAG IV SCH (17:32)
[2017-12-21] MEDS ORDERED: WARFARIN NA 10 MG, WARFARIN NA 2.5 MG PO ONE (18:00)
[2017-12-21] MEDS ORDERED: WARFARIN NA PO ONE (18:00)
[2017-12-21] MEDS ORDERED: WARFARIN NA 10 MG TABLET (FP) PO ONE ×2 (18:00)
[2017-12-21] MEDS: ATORVASTATIN CA 40 MG TABLET (FP) PO SCH (21:34)
--- NOTE | 2017-12-21 21:52 | CONSULT ---
Consult - text type - Consultation Consultation Note: Patient seen and examined Full consult to follow 77F with extensive PMH who presented with chest pain found to have NSTEMI is on heparin gtt and subtherapeutic on coumadin despite increasing dose to 10mg. NSTEMI Acute C dif CKD stage 4 Afib s/p ablation on coumadin HTN IDDM GERD Subtherapeutic INR COPD Asthma h/o LLE DVT Given Cr cl of 14ml/min. NOACs may not be an option. Will titrate coumadin dose and monitor INR On 10mg daily ajayenlt ---increase to 12.5mg -13mg and titrate based on INR will follow
[2017-12-21] MEDS: INSULIN (LEVEMIR) 100 UNITS/ML UNITS SQ SCH (22:09)
[2017-12-22] MEDS: hydrALAZINE HCL 50 MG TABLET (FP) PO SCH ×3 (05:37→21:30)
[2017-12-22] MEDS: VANCOMYCIN 250 MG/5 ML ORAL SOLUTION PO SCH ×4 (05:37→23:00)
[2017-12-22] MEDS: INSULIN SLIDING SCALE (NOVOLOG) 1 VIAL SQ SCH ×4 (06:19→21:30)
--- NOTE | 2017-12-22 08:47 | PN ---
Teaching Attending Note Name of Resident: Gustavo Leon ATTENDING PHYSICIAN STATEMENT I saw and evaluated the patient. I reviewed the resident's note and discussed the case with the resident. I agree with the resident's findings and plan as documented with exceptions below. SUBJECTIVE: Patient seen and examined. no complaints, eager to go home. OBJECTIVE: Vital Signs Period Temp Pulse Resp BP Sys/Renee Pulse Ox Last 24 Hr 97.7 F-98.7 F 61-68 16-20 116-149/49-61 96-98 Intake & Output 12/19/17 12/20/17 12/21/17 12/22/17 23:59 23:59 23:59 23:59 Intake Total 340 1067 1467 408 Balance 340 1067 1467 408 Weight 192 lb 8 oz 190 lb 9.6 oz 199 lb 8 oz General; sitting in chair in no acute distress Chest: Improved air entry, no rales or wheezing currently Abdomen: soft, obese, NT Extremities: no edema Home Medications Medication Instructions Recorded hydrALAZINE HCL [Apresoline -] 100 mg PO Q8H 01/28/17 Ferrous Sulfate 325 mg PO DAILY 02/02/17 Folic Acid 1 mg PO DAILY 12/09/17 Isosorbide Mononitrate [Isosorbide 60 mg PO DAILY 12/09/17 Mononitrate ER] Nifedipine [Nifedipine ER] 60 mg PO DAILY 12/09/17 Pantoprazole Sodium 40 mg PO BID 12/09/17 Tolterodine Tartrate 2 mg PO BID 12/09/17 Umeclidinium Brm/Vilanterol Tr 1 puff IH DAILY 12/09/17 [Anoro Ellipta 62.5-25 Mcg INH] Albuterol 2.5/Ipratropium 0.5 1 amp NEB RQID amp 12/11/17 [Duoneb -] Budesonide/Formeterol Fumarate 2 puff IH BID #1 inhaler 12/11/17 [SYMBICORT 160/4.5mcg -] Sodium Bicarbonate - 650 mg PO BID #40 tablet 12/11/17 predniSONE [Deltasone -] See Taper PO ASDIR 6 Days #17 tab 12/11/17 Insulin (Levemir) [Levemir Vial] 20 units SQ HS 12/14/17 Warfarin Sodium [Coumadin] 6 mg PO BID 12/15/17 Active Medications Albuterol/Ipratropium (Duoneb -) 1 amp NEB Q4H PRN PRN Reason: SHORTNESS OF BREATH Last Admin: 12/20/17 22:33 Dose: 1 amp Aspirin (Ecotrin -) 81 mg PO DAILY [facility] Last Admin: 12/21/17 09:16 Dose: 81 mg Atorvastatin Calcium (Lipitor -) 40 mg PO HS [facility] Last Admin: 12/21/17 21:34 Dose: 40 mg Budesonide/Formoterol Fumarate (Symbicort 160/4.5mcg -) 2 puff IH BID [facility] Last Admin: 12/21/17 22:10 Dose: 2 puff Ferrous Sulfate (Feosol -) 325 mg PO DAILY [facility] Last Admin: 12/21/17 09:15 Dose: 325 mg Folic Acid (Folic Acid -) 1 mg PO DAILY [facility] Last Admin: 12/21/17 09:15 Dose: 1 mg Heparin Sodium (Porcine) (Heparin -) 5,000 unit IVPUSH PRN PRN PRN Reason: Heparin Last Admin: 12/14/17 09:49 Dose: 5,000 unit Hydralazine HCl (Apresoline -) 50 mg PO TID [facility] Last Admin: 12/22/17 05:37 Dose: 50 mg Heparin Sodium/Dextrose (Heparin Infusion -) 25,000 units in 500 mls @ 20 mls/ hr IV TITR [facility]; Protocol Last Admin: 12/21/17 17:32 Dose: 700 units/hr, 14 mls/hr Insulin Aspart (Novolog Vial Sliding Scale -) 1 vial SQ [facility]; Protocol Last Admin: 12/22/17 06:19 Dose: 2 units Insulin Detemir (Levemir Vial) 15 units SQ HS [facility] Last Admin: 12/21/17 22:09 Dose: Not Given Isosorbide Mononitrate (Imdur -) 60 mg PO DAILY [facility] Last Admin: 12/21/17 09:14 Dose: 60 mg Magnesium Oxide (Mag-Ox -) 800 mg PO DAILY [facility] Stop: 12/22/17 10:01 Last Admin: 12/21/17 09:16 Dose: 800 mg Metoprolol Succinate (Toprol Xl -) 50 mg PO DAILY [facility] Last Admin: 12/21/17 09:14 Dose: 50 mg Nifedipine (Procardia Xl -) 60 mg PO DAILY [facility] Last Admin: 12/21/17 09:17 Dose: 60 mg Pantoprazole Sodium (Protonix -) 40 mg PO BID [facility] Last Admin: 12/21/17 21:34 Dose: 40 mg Vancomycin HCl (Vancomycin Oral Solution) 125 mg PO Q6HPO [facility] Last Admin: 12/22/17 05:37 Dose: 125 mg Warfarin Sodium (Coumadin -) 10 mg PO DAILY@1800 [facility] Last Admin: 12/20/17 17:45 Dose: 10 mg Laboratory Results - last 24 hr 12/21/17 12/21/17 12/21/17 11:45 15:30 16:32 PTT (Actin FS) 73.2 H POC Glucometer 212 177 12/21/17 12/22/17 12/22/17 21:36 05:14 06:20 PTT (Actin FS) 72.3 H POC Glucometer 113 152 ASSESSMENT AND PLAN: 77 yof with PMHx of Danette randhawa (currently on Coumadin), DM, HTN, COPD, Asthma, DVT, MD s/p cardiac cath, CKD, LLE DVT, GERD admitted with chest pain, NSTEMi and subtherapeutic INR. -NSTEMI -CKD stage IV (baseline Cr 3.5-3.7) -Afib s/p ablation on coumadin -Subtherapeutic INR -Acute C defficile colitis. -COPD/Asthma - h/o LLE DVT -HTN -IDDM -GERD Plan: Cardiology/pulmonary input noted. 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 Patient improved and stable clinically. Heparin drip, INR 2.1 today. Coumadin 10 mg today. hematology consulted, input appreciated. Renal input noted. Follow up with patient/hematology if NOAC candidate. Offered cardiac cath but patient declined given risk of contrast induced nephropathy and possible need for HD. medical management with ASA/statin/metoprolol/nifedipine/Imdur. Continue symbicort, prn nebs. No indication for steroids. ISS, diabetic diet, levemir to 15 units hs, titrate up to home regimen as indicated. Diarrhea improved, Stool C defficile ag positive, given symptoms, will treat, PO vancomycin 3/10 DVTPPX as above no home oxygen needs noted. PT eval noted. Dispo d/c home in 24 hours pending appropriate disposition arrangements and INR follow up. Plan discussed with patient, all questions answered.
[2017-12-22 08:54] LABS: INR 2.14 (0.83-1.09); PROTHROMBIN TIME (PATIENT) 25.5 SEC (9.7-13.0)
[2017-12-22] MEDS: HEPARIN INFUSION - 25,000 UNITS/500 ML INFUS.BAG IV SCH ×2 (09:35→09:36)
[2017-12-22] MEDS: PANTOPRAZOLE 40 MG TABLET (FP) PO SCH ×2 (09:43→21:30)
[2017-12-22] MEDS: MAGNESIUM OXIDE 400 MG TABLET (FP) PO SCH (09:43)
[2017-12-22] MEDS: ISOSORBIDE MONONITRATE 60 MG TAB.SR.24H (FP) PO SCH (09:43)
[2017-12-22] MEDS: FOLIC ACID 1 MG TABLET (FP) PO SCH (09:44)
[2017-12-22] MEDS: FERROUS SO4 325 MG TABLET (FP) PO SCH (09:44)
[2017-12-22] MEDS: NIFEdipine E.R 60 MG TABLET (UD) PO SCH (09:44)
[2017-12-22] MEDS: ASPIRIN COATED 81 MG TABLET.EC PO SCH (09:44)
[2017-12-22] MEDS: BUDESONIDE/FORMETEROL FUMARATE 160/4.5 mcg INHALER IH SCH ×2 (09:54→21:30)
[2017-12-22 10:09] LABS: HEMATOCRIT 31.7 % (32.4-45.2); HEMOGLOBIN 10.4 GM/dL (10.7-15.3); MCH 31.4 pg (25.7-33.7); MCHC 32.7 g/dl (32.0-36.0); MEAN CELL VOLUME 96.1 fl (80-96); MEAN PLT VOLUME 9.8 fl (7.5-11.1); PLATELET COUNT 182 K/MM3 (134-434); RDW 16.7 % (11.6-15.6); WHITE BLOOD COUNT 6.1 K/mm3 (4.0-10.0)
--- NOTE | 2017-12-22 11:33 | PN ---
Progress Note (short form) - Note Progress Note: PULMONARY Breathing at baseline. No chest pain. No fevers or chills. Vital Signs Period Temp Pulse Resp BP Sys/Renee Pulse Ox Last 24 Hr 97.7 F-98.7 F 61-69 16-20 116-160/49-64 97-98 Gen: NAD at rest Heart: RRR Lung: decreased breath sounds at the bases Abd: soft, nontender Ext: no edema CBC, BMP 12/22/17 10:00 12/20/17 05:30 Active Medications Albuterol/Ipratropium (Duoneb -) 1 amp NEB Q4H PRN PRN Reason: SHORTNESS OF BREATH Last Admin: 12/20/17 22:33 Dose: 1 amp Aspirin (Ecotrin -) 81 mg PO DAILY [facility] Last Admin: 12/22/17 09:44 Dose: 81 mg Atorvastatin Calcium (Lipitor -) 40 mg PO HS [facility] Last Admin: 12/21/17 21:34 Dose: 40 mg Budesonide/Formoterol Fumarate (Symbicort 160/4.5mcg -) 2 puff IH BID [facility] Last Admin: 12/22/17 09:54 Dose: 2 puff Ferrous Sulfate (Feosol -) 325 mg PO DAILY [facility] Last Admin: 12/22/17 09:44 Dose: 325 mg Folic Acid (Folic Acid -) 1 mg PO DAILY [facility] Last Admin: 12/22/17 09:44 Dose: 1 mg Heparin Sodium (Porcine) (Heparin -) 5,000 unit IVPUSH PRN PRN PRN Reason: Heparin Last Admin: 12/14/17 09:49 Dose: 5,000 unit Hydralazine HCl (Apresoline -) 50 mg PO TID [facility] Last Admin: 12/22/17 05:37 Dose: 50 mg Heparin Sodium/Dextrose (Heparin Infusion -) 25,000 units in 500 mls @ 20 mls/ hr IV TITR [facility]; Protocol Last Admin: 12/22/17 09:36 Dose: Not Given Insulin Aspart (Novolog Vial Sliding Scale -) 1 vial SQ ACHS [facility]; Protocol Last Admin: 12/22/17 06:19 Dose: 2 units Insulin Detemir (Levemir Vial) 15 units SQ HS [facility] Last Admin: 12/21/17 22:09 Dose: Not Given Isosorbide Mononitrate (Imdur -) 60 mg PO DAILY [facility] Last Admin: 12/22/17 09:43 Dose: 60 mg Metoprolol Succinate (Toprol Xl -) 50 mg PO DAILY [facility] Last Admin: 12/22/17 09:44 Dose: 50 mg Nifedipine (Procardia Xl -) 60 mg PO DAILY [facility] Last Admin: 12/22/17 09:44 Dose: 60 mg Pantoprazole Sodium (Protonix -) 40 mg PO BID [facility] Last Admin: 12/22/17 09:43 Dose: 40 mg Vancomycin HCl (Vancomycin Oral Solution) 125 mg PO Q6HPO [facility] Last Admin: 12/22/17 05:37 Dose: 125 mg Warfarin Sodium (Coumadin -) 10 mg PO DAILY@1800 [facility] Last Admin: 12/20/17 17:45 Dose: 10 mg A/P Acute NSTEMI LV Diastolic Dysfunction Pulmonary HTN Atrial Fibrillation COPD CKD +C Diff h/o DVT HTN DM - continue anticoagulation to target INR 2-3 - ASA, plavix - beta kath, statin - O2 as needed - inhaled bronchodilators - continue antibiotics - can defer systemic steroids at this time - outpt f/u, she is considering cardiac catheterization with risk of HD given frequency of hospitalizations Problem List - Problems (1) NSTEMI (non-ST elevated myocardial infarction) Code(s): I21.4 - NON-ST ELEVATION (NSTEMI) MYOCARDIAL INFARCTION (2) Shortness of breath Code(s): R06.02 - SHORTNESS OF BREATH (3) Afib Code(s): I48.91 - UNSPECIFIED ATRIAL FIBRILLATION (4) CKD (chronic kidney disease) Code(s): N18.9 - CHRONIC KIDNEY DISEASE, UNSPECIFIED (5) COPD (chronic obstructive pulmonary disease) Code(s): J44.9 - CHRONIC OBSTRUCTIVE PULMONARY DISEASE, UNSPECIFIED Qualifiers: COPD type: chronic bronchitis (6) Diastolic CHF Code(s): I50.30 - UNSPECIFIED DIASTOLIC (CONGESTIVE) HEART FAILURE Qualifiers: Heart failure chronicity: chronic Qualified Code(s): I50.32 - Chronic diastolic (congestive) heart failure (7) CAD (coronary artery disease) Code(s): I25.10 - ATHSCL HEART DISEASE OF [place] CORONARY ARTERY W/O ANG PCTRS (8) History of DVT (deep vein thrombosis) Code(s): Z86.718 - PERSONAL HISTORY OF OTHER VENOUS THROMBOSIS AND EMBOLISM
--- NOTE | 2017-12-22 12:05 | PN ---
Progress Note (short form) - Note Progress Note: patient seen and examined at bedside INR 2.14 patient feels well but frustrated with her coumadin dosing changes and how frequently her dosing needs to change. Also frustrated with her INR levels Got Coumadin 13mg last night Vital Signs Temperature 98 F 12/22/17 09:05 Pulse Rate 69 12/22/17 09:05 Respiratory Rate 20 12/22/17 09:05 Blood Pressure 160/64 12/22/17 09:05 O2 Sat by Pulse Oximetry (%) 97 12/22/17 09:00 Constitutional: Yes: No Distress, Obese Eyes: Yes: Conjunctiva Clear HENT: Yes: Atraumatic Neck: Yes: Supple Cardiovascular: Yes: Regular Rate and Rhythm, Murmur (3/6 RUSB) Respiratory: Yes: CTA Bilaterally Gastrointestinal: Yes: Normal Bowel Sounds, Soft Neurological: Yes: Alert, Oriented Laboratory Results - last 24 hr 12/21/17 12/21/17 12/21/17 11:45 15:30 16:32 WBC RBC Hgb Hct MCV MCH MCHC RDW Plt Count MPV PT with INR INR PTT (Actin FS) 73.2 H POC Glucometer 212 177 12/21/17 12/22/17 12/22/17 21:36 05:14 06:00 WBC RBC Hgb Hct MCV MCH MCHC RDW Plt Count MPV PT with INR 25.50 H INR 2.14 H PTT (Actin FS) POC Glucometer 113 152 12/22/17 12/22/17 12/22/17 06:20 06:20 10:00 WBC 6.1 RBC 3.30 L Hgb 10.4 L Hct 31.7 L MCV 96.1 H MCH 31.4 MCHC 32.7 RDW 16.7 H Plt Count 182 MPV 9.8 PT with INR Cancelled INR Cancelled PTT (Actin FS) 72.3 H POC Glucometer 12/22/17 10:54 WBC RBC Hgb Hct MCV MCH MCHC RDW Plt Count MPV PT with INR INR PTT (Actin FS) POC Glucometer 158 77F with extensive PMH who presented with chest pain found to have NSTEMI is on heparin gtt and was subtherapeutic on coumadin despite increasing dose. Problem List: NSTEMI Acute C dif CKD stage 4 Afib s/p ablation on coumadin HTN IDDM GERD Subtherapeutic INR COPD Asthma h/o LLE DVT Plan: Patient got 13mg of coumadin last night but suspect her INR of 2.14 is a reflection of the 10mg of coumadin given the night prior. Patient can be discharged from heme standpoint if patient is able to have her INR checked by either PMD or gum rolling machine tender and there is someone who will follow up the results and make necessary adjustments to her coumadin. Spoke to primary team during their rounds and they will try to set her up with outpatient follow up. She has her INR checked every thursday from a home visiting lab service and results go to Dr. Griffith per patient. Patient remains frustrated about her coumadin and INR and how frequently her dose and INR keeps changing. She wants to consider another choice of anticoagulant nephrology to see patient to assess renal function and to help assist in choice of anticoagulant Would consider eliquis if ok by nephrology [employer]
[2017-12-22] MEDS ORDERED: INSULIN (NOVOLOG) ASPART 100 UNITS/ML 10ML VIAL ONE (12:29)
--- NOTE | 2017-12-22 14:59 | DS ---
Physical Exam: SUBJECTIVE: Patient seen and examined. No acute events overnight. OBJECTIVE: Vital Signs Period Temp Pulse Resp BP Sys/Renee Pulse Ox Last 24 Hr 98 F-98.7 F 60-69 20-20 132-160/50-64 97-98 PHYSICAL EXAM GENERAL: The patient is awake, alert, and fully oriented, in no acute distress. EYES: sclera anicteric, conjunctiva clear. ENT: Ears normal, nares patent, moist mucous membranes. LUNGS: Breath sounds equal, clear to auscultation bilaterally, no wheezes, no crackles, no accessory muscle use. HEART: Regular rate and rhythm, S1, S2 without murmur ABDOMEN: Soft, nontender, nondistended, normoactive bowel sounds, no guarding, no rebound, EXTREMITIES: 2+ dorsal pedal pulses, warm, well-perfused, no edema. NEUROLOGICAL: Normal speech, gait not observed. PSYCH: Normal mood, normal affect. SKIN: Warm, dry, normal turgor LABS Laboratory Results - last 24 hr 12/21/17 12/21/17 12/21/17 15:30 16:32 21:36 WBC RBC Hgb Hct MCV MCH MCHC RDW Plt Count MPV PT with INR INR PTT (Actin FS) 73.2 H POC Glucometer 177 113 12/22/17 12/22/17 12/22/17 05:14 06:00 06:20 WBC RBC Hgb Hct MCV MCH MCHC RDW Plt Count MPV PT with INR 25.50 H INR 2.14 H PTT (Actin FS) 72.3 H POC Glucometer 152 12/22/17 12/22/17 12/22/17 06:20 10:00 10:54 WBC 6.1 RBC 3.30 L Hgb 10.4 L Hct 31.7 L MCV 96.1 H MCH 31.4 MCHC 32.7 RDW 16.7 H Plt Count 182 MPV 9.8 PT with INR Cancelled INR Cancelled PTT (Actin FS) POC Glucometer 158 HOSPITAL COURSE: Date of Admission:12/13/17 Date of Discharge: 12/22/17 A 77 F w/ PMH including HTN, DM, A fib (s/p ablation on coumadin), LLE DVT, COPD presented to the ED a couple of days after discharge with shortness of breath and chest pain. She was evaluated and found to have NSTEMI on initial EKG. Echo showed normal LV size and EF of 60%. Pt. elected to be medically managed with ASA/statin/metoprolol/nifedipine/Imdur. Pt. was restarted on Coumadin after treatment on Heparin drip and uptitrated until INR was in therapeutic range. Hospital course discussed with and agreed upon with Pt. Pulmonology, Cardiology and Nephrology consults appreciated. Minutes to complete discharge: 36 Discharge Summary Reason For Visit: NSTEMI SOB Current Active Problems NSTEMI (non-ST elevated myocardial infarction) (Acute) Shortness of breath (Acute) Condition: Good - Instructions Diet, Activity, Other Instructions: You were admitted for chest pain and shortness of breath. Imaging of your heart was done and you were found not to have clots in the small vessels of your heart. You were worked up and found not to be a suitable candidate for a "percutaneous cardiac intervention" (PCI) at that time because of risks to your kidney outweighing the benefits of the procedure. You were managed with medications to break up the "clot" that was present in very small arteries to your heart. We have adjusted your medications during your hospital stay. We have started you on an antibiotic, Vancomycin, for infection. Please take it as prescribed. You should finish the antibiotic course on December 29, 2017. We have increased your Warfarin to 10mg. Please take at the same time everyday. Please follow up with your PCP in 1 week to monitor your INR within 24 hours of discharge so your Warfarin can be adjusted accordingly. Please be extra careful not to bump into objects or to fall as this can cause bleeding. Please take extra care in checking for bleeding, including areas like the mouth around the gums. Please return to the ER if you are experiencing chest pain, fever, shortness of breath that does not subside with rest or bleeding that does not stop. - Home Medications Comprehensive Discharge Medication List: Ambulatory Orders hydrALAZINE HCL [Apresoline -] 100 mg PO Q8H 01/28/17 Ferrous Sulfate 325 mg PO DAILY 02/02/17 Folic Acid 1 mg PO DAILY 12/09/17 Isosorbide Mononitrate [Isosorbide Mononitrate ER] 60 mg PO DAILY 12/09/17 Nifedipine [Nifedipine ER] 60 mg PO DAILY 12/09/17 Pantoprazole Sodium 40 mg PO BID 12/09/17 Tolterodine Tartrate 2 mg PO BID 12/09/17 Umeclidinium Brm/Vilanterol Tr [Anoro Ellipta 62.5-25 Mcg INH] 1 puff IH DAILY 12/09/17 Albuterol 2.5/Ipratropium 0.5 [Duoneb -] 1 amp NEB RQID amp 12/11/17 Budesonide/Formeterol Fumarate [SYMBICORT 160/4.5mcg -] 2 puff IH BID #1 inhaler 12/11/17 Sodium Bicarbonate - 650 mg PO BID #40 tablet 12/11/17 predniSONE [Deltasone -] See Taper PO ASDIR 6 Days #17 tab 12/11/17 Insulin (Levemir) [Levemir Vial] 20 units SQ HS 12/14/17 Warfarin Sodium [Coumadin] 6 mg PO BID 12/15/17 Vancomycin Oral Solution 2.5 ml PO Q6HPO 7 Days #70 ml 12/22/17 This patient is new to me today: No Emergency Visit: Yes ED Registration Date: 12/13/17 Care time: The patient presented to the Emergency Department on the above date and was hospitalized for further evaluation of their emergent condition. Critical Care patient: No - Discharge Referral Referred to [facility] Med P.C.: No
--- NOTE | 2017-12-22 15:18 | CONSULT ---
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 Cr improved during admission with most recent being 3.1. Continue to have dyspnea. Making urine. No overt LE swelling. No cough, fever, chills, N/V/D. PMhx: as above Allergies: NKDA Family Hx: NC Social Hx: no T/A/D ROS: as per HPI Home Medications Medication Instructions Recorded hydrALAZINE HCL [Apresoline -] 100 mg PO Q8H 01/28/17 Ferrous Sulfate 325 mg PO DAILY 02/02/17 Folic Acid 1 mg PO DAILY 12/09/17 Isosorbide Mononitrate [Isosorbide 60 mg PO DAILY 12/09/17 Mononitrate ER] Nifedipine [Nifedipine ER] 60 mg PO DAILY 12/09/17 Pantoprazole Sodium 40 mg PO BID 12/09/17 Tolterodine Tartrate 2 mg PO BID 12/09/17 Umeclidinium Brm/Vilanterol Tr 1 puff IH DAILY 12/09/17 [Anoro Ellipta 62.5-25 Mcg INH] Albuterol 2.5/Ipratropium 0.5 1 amp NEB RQID amp 12/11/17 [Duoneb -] Budesonide/Formeterol Fumarate 2 puff IH BID #1 inhaler 12/11/17 [SYMBICORT 160/4.5mcg -] Sodium Bicarbonate - 650 mg PO BID #40 tablet 12/11/17 Insulin (Levemir) [Levemir Vial] 20 units SQ HS 12/14/17 Warfarin Sodium [Coumadin] 6 mg PO BID 12/15/17 Vancomycin Oral Solution 2.5 ml PO Q6HPO 7 Days #70 ml 12/22/17 Warfarin Na [Coumadin -] 10 mg PO DAILY@1800 #5 tablet 12/22/17 Vital Signs Temperature 98.2 F 12/22/17 13:41 Pulse Rate 60 12/22/17 13:41 Respiratory Rate 20 12/22/17 13:41 Blood Pressure 132/64 12/22/17 13:41 O2 Sat by Pulse Oximetry (%) 97 12/22/17 09:00 Intake & Output 12/19/17 12/20/17 12/21/17 12/22/17 23:59 23:59 23:59 23:59 Intake Total 340 1067 1467 1138 Balance 340 1067 1467 1138 Weight 87.317 kg 86.455 kg 90.492 kg NAD awake and alert RRR, No M/R CTA, no rales or wheeze soft NT/ND no LE edema, clubbing or cyanosis no CVA tenderness CBC, BMP 12/22/17 10:00 12/20/17 05:30 Current Medications Albuterol/Ipratropium (Duoneb -) 1 amp NEB Q4H PRN PRN Reason: SHORTNESS OF BREATH Last Admin: 12/20/17 22:33 Dose: 1 amp Aspirin (Ecotrin -) 81 mg PO DAILY [facility] Last Admin: 12/22/17 09:44 Dose: 81 mg Atorvastatin Calcium (Lipitor -) 40 mg PO HS [facility] Last Admin: 12/21/17 21:34 Dose: 40 mg Budesonide/Formoterol Fumarate (Symbicort 160/4.5mcg -) 2 puff IH BID [facility] Last Admin: 12/22/17 09:54 Dose: 2 puff Ferrous Sulfate (Feosol -) 325 mg PO DAILY [facility] Last Admin: 12/22/17 09:44 Dose: 325 mg Folic Acid (Folic Acid -) 1 mg PO DAILY [facility] Last Admin: 12/22/17 09:44 Dose: 1 mg Hydralazine HCl (Apresoline -) 50 mg PO TID [facility] Last Admin: 12/22/17 13:39 Dose: 50 mg Insulin Aspart (Novolog Vial Sliding Scale -) 1 vial SQ [facility]; Protocol Last Admin: 12/22/17 12:34 Dose: 2 units Insulin Detemir (Levemir Vial) 15 units SQ [facility] Last Admin: 12/21/17 22:09 Dose: Not Given Isosorbide Mononitrate (Imdur -) 60 mg PO DAILY [facility] Last Admin: 12/22/17 09:43 Dose: 60 mg Metoprolol Succinate (Toprol Xl -) 50 mg PO DAILY [facility] Last Admin: 12/22/17 09:44 Dose: 50 mg Nifedipine (Procardia Xl -) 60 mg PO DAILY [facility] Last Admin: 12/22/17 09:44 Dose: 60 mg Pantoprazole Sodium (Protonix -) 40 mg PO BID [facility] Last Admin: 12/22/17 09:43 Dose: 40 mg Vancomycin HCl (Vancomycin Oral Solution) 125 mg PO Q6HPO [facility] Last Admin: 12/22/17 12:34 Dose: 125 mg Warfarin Sodium (Coumadin -) 10 mg PO DAILY@1800 [facility] Last Admin: 12/20/17 17:45 Dose: 10 mg 77 year old AA woman with 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 #NSTEMI #CKD Stage 4/5 not on dialysis #COPD #Hypertension #Afib on Coumadin #Metabolic acidosis Cardiology following, ? cardiac cath (pt at risk of VIKAS given advanced CKD) Renal function improved and stable, no acute need for CLINICAL THERAPIST continue Nebs for COPD BP at goal on present meds pt is a possible candidate for NOAC (Eliquis), however there is still ~27% renal clerance and no concrete data exists on CKD stage 4 patients (eGFR < 30) using the medication. It can be used with understanding that there is a slightly higher potential risk of bleeding. It is used in CKD5/ESRD pts who are not canidate for Coumadin. This was discussed with the patient. Start oral sodium bicarb for metabolic acidosis Thank you Will follow Tylor To DO
[2017-12-22] MEDS: WARFARIN NA 10 MG TABLET (FP) PO SCH (17:30)
[2017-12-22] MEDS: ATORVASTATIN CA 40 MG TABLET (FP) PO SCH (21:30)
[2017-12-22] MEDS: INSULIN (LEVEMIR) 100 UNITS/ML UNITS SQ SCH (21:31)
[2017-12-23] MEDS: hydrALAZINE HCL 50 MG TABLET (FP) PO SCH ×2 (05:06→13:39)
[2017-12-23] MEDS: VANCOMYCIN 250 MG/5 ML ORAL SOLUTION PO SCH ×2 (05:06→12:12)
[2017-12-23] MEDS: INSULIN SLIDING SCALE (NOVOLOG) 1 VIAL SQ SCH ×2 (06:07→11:45)
[2017-12-23 07:07] LABS: INR 2.33 (0.83-1.09); PROTHROMBIN TIME (PATIENT) 27.7 SEC (9.7-13.0)
[2017-12-23 07:36] LABS: ALBUMIN 2.9 g/dl (3.4-5.0); ALK PHOS 48 U/L (45-117); ANION GAP 9 MMOL/L (8-16); BILIRUBIN,TOTAL 0.2 mg/dL (0.2-1); BLOOD UREA NITROGEN 54 mg/dL (7-18); CALCIUM 8.4 mg/dL (8.5-10.1); CHLORIDE 113 mmol/L (98-107); CO2 18 mmol/L (21-32); CREATININE 3.3 mg/dL (0.55-1.3); GLUCOSE,RANDOM 121 mg/dL (74-106); POTASSIUM 4.7 mmol/L (3.5-5.1); SGOT/AST 13 U/L (15-37); SGPT/ALT 17 U/L (13-61); SODIUM 140 mmol/L (136-145); TOT PROT 5.8 g/dl (6.4-8.2)
--- NOTE | 2017-12-23 07:57 | PN ---
Teaching Attending Note Name of Resident: Gustavo Leon ATTENDING PHYSICIAN STATEMENT I saw and evaluated the patient. I reviewed the resident's note and discussed the case with the resident. I agree with the resident's findings and plan as documented with exceptions below SUBJECTIVE: Patient seen and examined. no complaints. OBJECTIVE: Vital Signs Period Temp Pulse Resp BP Sys/Renee Pulse Ox Last 24 Hr 97.3 F-98.8 F 59-71 18-20 132-160/51-64 96-97 Intake & Output 12/20/17 12/21/17 12/22/17 12/23/17 23:59 23:59 23:59 23:59 Intake Total 1067 1467 1138 Balance 1067 1467 1138 Weight 190 lb 9.6 oz 199 lb 8 oz 193 lb 6.4 oz general; sitting in bed in no acute distress chest: CTAB, no rales or wheezing Abdomen: soft, obese, NT Extremities: no edema Active Medications Albuterol/Ipratropium (Duoneb -) 1 amp NEB Q4H PRN PRN Reason: SHORTNESS OF BREATH Last Admin: 12/20/17 22:33 Dose: 1 amp Aspirin (Ecotrin -) 81 mg PO DAILY COUNTS INCLUDE 234 BEDS AT THE [facility] Last Admin: 12/22/17 09:44 Dose: 81 mg Atorvastatin Calcium (Lipitor -) 40 mg PO HS COUNTS INCLUDE 234 BEDS AT THE [facility] Last Admin: 12/22/17 21:30 Dose: 40 mg Budesonide/Formoterol Fumarate (Symbicort 160/4.5mcg -) 2 puff IH BID COUNTS INCLUDE 234 BEDS AT THE [facility] Last Admin: 12/22/17 21:30 Dose: 2 puff Ferrous Sulfate (Feosol -) 325 mg PO DAILY COUNTS INCLUDE 234 BEDS AT THE [facility] Last Admin: 12/22/17 09:44 Dose: 325 mg Folic Acid (Folic Acid -) 1 mg PO DAILY COUNTS INCLUDE 234 BEDS AT THE [facility] Last Admin: 12/22/17 09:44 Dose: 1 mg Hydralazine HCl (Apresoline -) 50 mg PO TID COUNTS INCLUDE 234 BEDS AT THE [facility] Last Admin: 12/23/17 05:06 Dose: 50 mg Insulin Aspart (Novolog Vial Sliding Scale -) 1 vial SQ [facility] COUNTS INCLUDE 234 BEDS AT THE [facility]; Protocol Last Admin: 12/23/17 06:07 Dose: 2 units Insulin Detemir (Levemir Vial) 15 units SQ HS COUNTS INCLUDE 234 BEDS AT THE [facility] Last Admin: 12/22/17 21:31 Dose: 10 units Isosorbide Mononitrate (Imdur -) 60 mg PO DAILY COUNTS INCLUDE 234 BEDS AT THE [facility] Last Admin: 12/22/17 09:43 Dose: 60 mg Metoprolol Succinate (Toprol Xl -) 50 mg PO DAILY COUNTS INCLUDE 234 BEDS AT THE [facility] Last Admin: 12/22/17 09:44 Dose: 50 mg Nifedipine (Procardia Xl -) 60 mg PO DAILY COUNTS INCLUDE 234 BEDS AT THE [facility] Last Admin: 12/22/17 09:44 Dose: 60 mg Pantoprazole Sodium (Protonix -) 40 mg PO BID COUNTS INCLUDE 234 BEDS AT THE [facility] Last Admin: 12/22/17 21:30 Dose: 40 mg Sodium Bicarbonate (Sodium Bicarbonate -) 650 mg PO DAILY COUNTS INCLUDE 234 BEDS AT THE [facility] Vancomycin HCl (Vancomycin Oral Solution) 125 mg PO Q6HPO COUNTS INCLUDE 234 BEDS AT THE [facility] Last Admin: 12/23/17 05:06 Dose: 125 mg Warfarin Sodium (Coumadin -) 10 mg PO DAILY@1800 COUNTS INCLUDE 234 BEDS AT THE [facility] Last Admin: 12/22/17 17:30 Dose: 10 mg Laboratory Results - last 24 hr 12/22/17 12/22/17 12/22/17 06:00 06:20 06:20 WBC RBC Hgb Hct MCV MCH MCHC RDW Plt Count MPV PT with INR 25.50 H Cancelled INR 2.14 H Cancelled PTT (Actin FS) 72.3 H Sodium Potassium Chloride Carbon Dioxide Anion Gap BUN Creatinine Creat Clearance w eGFR POC Glucometer Random Glucose Calcium Total Bilirubin AST ALT Alkaline Phosphatase Total Protein Albumin 12/22/17 12/22/17 12/22/17 10:00 10:54 16:44 WBC 6.1 RBC 3.30 L Hgb 10.4 L Hct 31.7 L MCV 96.1 H MCH 31.4 MCHC 32.7 RDW 16.7 H Plt Count 182 MPV 9.8 PT with INR INR PTT (Actin FS) Sodium Potassium Chloride Carbon Dioxide Anion Gap BUN Creatinine Creat Clearance w eGFR POC Glucometer 158 183 Random Glucose Calcium Total Bilirubin AST ALT Alkaline Phosphatase Total Protein Albumin 12/22/17 12/23/17 12/23/17 21:29 05:08 06:20 WBC RBC Hgb Hct MCV MCH MCHC RDW Plt Count MPV PT with INR 27.70 H INR 2.33 H PTT (Actin FS) Sodium Potassium Chloride Carbon Dioxide Anion Gap BUN Creatinine Creat Clearance w eGFR POC Glucometer 186 195 Random Glucose Calcium Total Bilirubin AST ALT Alkaline Phosphatase Total Protein Albumin 12/23/17 06:20 WBC RBC Hgb Hct MCV MCH MCHC RDW Plt Count MPV PT with INR INR PTT (Actin FS) Sodium 140 Potassium 4.7 Chloride 113 H Carbon Dioxide 18 L Anion Gap 9 BUN 54 H Creatinine 3.3 H Creat Clearance w eGFR 13.49 POC Glucometer Random Glucose 121 H Calcium 8.4 L Total Bilirubin 0.2 AST 13 L ALT 17 Alkaline Phosphatase 48 Total Protein 5.8 L Albumin 2.9 L ASSESSMENT AND PLAN: 77 yof with PMHx of Danette randhawa (currently on Coumadin), DM, HTN, COPD, Asthma, DVT, NE s/p cardiac cath, CKD, LLE DVT, GERD admitted with chest pain, NSTEMi and subtherapeutic INR. -NSTEMI -CKD stage IV (baseline Cr 3.5-3.7) -Afib s/p ablation on coumadin -Subtherapeutic INR -Acute C defficile colitis. -COPD/Asthma - h/o LLE DVT -HTN -IDDM -GERD Plan: Cardiology/pulmonary input noted. Agree V/Q would not climate change analyst. Patient improved and stable clinically. Heparin drip, INR 2.3 today. Coumadin 10 mg today. hematology consulted, input appreciated. Renal input noted. discussed with patient, wants to think about eliquis Offered cardiac cath but patient declined given risk of contrast induced nephropathy and possible need for HD. medical management with ASA/statin/metoprolol/nifedipine/Imdur. Continue symbicort, prn nebs. No indication for steroids. ISS, diabetic diet, resume home levemir. Diarrhea improved, Stool C defficile ag positive, given symptoms, will treat, PO vancomycin 3/10 DVTPPX as above no home oxygen needs noted. PT eval noted. Discussed with patient, plans to have her INR check with PCP/medical clinic tomorrow. Understands that will be taking coumadin 10 mg tonight and have an INR check tomorrow and further dosing will be guided by her doctor. d/c home today. Plan discussed with patient, all questions answered.
[2017-12-23] MEDS ORDERED: PT OWN MED DRAWER 7, Y5N ONE (09:05)
[2017-12-23] MEDS: FOLIC ACID 1 MG TABLET (FP) PO SCH (09:07)
[2017-12-23] MEDS: ASPIRIN COATED 81 MG TABLET.EC PO SCH (09:07)
[2017-12-23] MEDS: NIFEdipine E.R 60 MG TABLET (UD) PO SCH (09:07)
[2017-12-23] MEDS: PANTOPRAZOLE 40 MG TABLET (FP) PO SCH (09:07)
[2017-12-23] MEDS: BUDESONIDE/FORMETEROL FUMARATE 160/4.5 mcg INHALER IH SCH (09:07)
[2017-12-23] MEDS: FERROUS SO4 325 MG TABLET (FP) PO SCH (09:07)
[2017-12-23] MEDS: ISOSORBIDE MONONITRATE 60 MG TAB.SR.24H (FP) PO SCH (09:07)
[2017-12-23] MEDS ORDERED: SODIUM BICARBONATE 650 MG TABLET PO SCH (10:00)
[2017-12-23 11:35] VITALS: BMI 27.6
--- NOTE | 2017-12-23 12:42 | PN ---
Progress Note, Physician History of Present Illness: pulmonary alert,no distress,-cp,-sob - Current Medication List Current Medications: Active Medications Albuterol/Ipratropium (Duoneb -) 1 amp NEB Q4H PRN PRN Reason: SHORTNESS OF BREATH Last Admin: 12/20/17 22:33 Dose: 1 amp Aspirin (Ecotrin -) 81 mg PO DAILY [facility] Last Admin: 12/23/17 09:07 Dose: 81 mg Atorvastatin Calcium (Lipitor -) 40 mg PO HS [facility] Last Admin: 12/22/17 21:30 Dose: 40 mg Budesonide/Formoterol Fumarate (Symbicort 160/4.5mcg -) 2 puff IH BID [facility] Last Admin: 12/23/17 09:07 Dose: 2 puff Ferrous Sulfate (Feosol -) 325 mg PO DAILY [facility] Last Admin: 12/23/17 09:07 Dose: 325 mg Folic Acid (Folic Acid -) 1 mg PO DAILY [facility] Last Admin: 12/23/17 09:07 Dose: 1 mg Hydralazine HCl (Apresoline -) 50 mg PO TID [facility] Last Admin: 12/23/17 05:06 Dose: 50 mg Insulin Aspart (Novolog Vial Sliding Scale -) 1 vial SQ [facility]; Protocol Last Admin: 12/23/17 11:45 Dose: Not Given Insulin Detemir (Levemir Vial) 15 units SQ [facility] Last Admin: 12/22/17 21:31 Dose: 10 units Isosorbide Mononitrate (Imdur -) 60 mg PO DAILY [facility] Last Admin: 12/23/17 09:07 Dose: 60 mg Metoprolol Succinate (Toprol Xl -) 50 mg PO DAILY [facility] Last Admin: 12/23/17 09:07 Dose: 50 mg Nifedipine (Procardia Xl -) 60 mg PO DAILY [facility] Last Admin: 12/23/17 09:07 Dose: 60 mg Pantoprazole Sodium (Protonix -) 40 mg PO BID [facility] Last Admin: 12/23/17 09:07 Dose: 40 mg Sodium Bicarbonate (Sodium Bicarbonate -) 650 mg PO DAILY [facility] Last Admin: 12/23/17 09:07 Dose: 650 mg Vancomycin HCl (Vancomycin Oral Solution) 125 mg PO Q6HPO [facility] Last Admin: 12/23/17 12:12 Dose: 125 mg Warfarin Sodium (Coumadin -) 10 mg PO DAILY@1800 [facility] Last Admin: 12/22/17 17:30 Dose: 10 mg - Objective Vital Signs: Vital Signs Temperature 98.3 F 12/23/17 11:14 Pulse Rate 71 12/23/17 11:14 Respiratory Rate 20 12/23/17 11:14 Blood Pressure 169/67 12/23/17 11:14 O2 Sat by Pulse Oximetry (%) 95 12/23/17 11:14 Constitutional: Yes: Well Nourished, Calm Eyes: Yes: WNL HENT: Yes: WNL Neck: Yes: WNL Cardiovascular: Yes: Pulse Irregular, S1, S2 Respiratory: Yes: Diminished Gastrointestinal: Yes: Normal Bowel Sounds, Soft Extremities: Yes: WNL Edema: No Labs: 12/23/17 06:20 INR, PTT INR 2.33 (0.83-1.09) H 12/23/17 06:20 Assessment/Plan Problem List - Problems (1) NSTEMI (non-ST elevated myocardial infarction) Code(s): I21.4 - NON-ST ELEVATION (NSTEMI) MYOCARDIAL INFARCTION (2) Shortness of breath Code(s): R06.02 - SHORTNESS OF BREATH (3) Afib Code(s): I48.91 - UNSPECIFIED ATRIAL FIBRILLATION (4) CKD (chronic kidney disease) Code(s): N18.9 - CHRONIC KIDNEY DISEASE, UNSPECIFIED (5) COPD (chronic obstructive pulmonary disease) Code(s): J44.9 - CHRONIC OBSTRUCTIVE PULMONARY DISEASE, UNSPECIFIED Qualifiers: COPD type: chronic bronchitis (6) Diastolic CHF Code(s): I50.30 - UNSPECIFIED DIASTOLIC (CONGESTIVE) HEART FAILURE Qualifiers: Heart failure chronicity: chronic Qualified Code(s): I50.32 - Chronic diastolic (congestive) heart failure (7) CAD (coronary artery disease) Code(s): I25.10 - ATHSCL HEART DISEASE OF [place] CORONARY ARTERY W/O ANG PCTRS (8) History of DVT (deep vein thrombosis) Code(s): Z86.718 - PERSONAL HISTORY OF OTHER VENOUS THROMBOSIS AND EMBOLISM Assessment/Plan Acute NSTEMI LV Diastolic Dysfunction Pulmonary HTN Atrial Fibrillation COPD CKD h/o DVT HTN DM - coumadin - ASA, plavix - beta kath, statin - O2 as needed - inhaled bronchodilators DR GOULD
[2017-12-23 14:01] VITALS: BP 131/55; PULSE 61; TEMP 97.8
--- NOTE | 2017-12-23 15:44 | PN ---
Progress Note, Physician History of Present Illness: seen and examined today in nad. at baseline. no overnight events. no new complaints. - Current Medication List Current Medications: Active Medications Albuterol/Ipratropium (Duoneb -) 1 amp NEB Q4H PRN PRN Reason: SHORTNESS OF BREATH Last Admin: 12/20/17 22:33 Dose: 1 amp Aspirin (Ecotrin -) 81 mg PO DAILY [facility] Last Admin: 12/23/17 09:07 Dose: 81 mg Atorvastatin Calcium (Lipitor -) 40 mg PO HS [facility] Last Admin: 12/22/17 21:30 Dose: 40 mg Budesonide/Formoterol Fumarate (Symbicort 160/4.5mcg -) 2 puff IH BID [facility] Last Admin: 12/23/17 09:07 Dose: 2 puff Ferrous Sulfate (Feosol -) 325 mg PO DAILY [facility] Last Admin: 12/23/17 09:07 Dose: 325 mg Folic Acid (Folic Acid -) 1 mg PO DAILY [facility] Last Admin: 12/23/17 09:07 Dose: 1 mg Hydralazine HCl (Apresoline -) 50 mg PO TID [facility] Last Admin: 12/23/17 13:39 Dose: 50 mg Insulin Aspart (Novolog Vial Sliding Scale -) 1 vial SQ [facility]; Protocol Last Admin: 12/23/17 11:45 Dose: Not Given Insulin Detemir (Levemir Vial) 15 units SQ HS [facility] Last Admin: 12/22/17 21:31 Dose: 10 units Isosorbide Mononitrate (Imdur -) 60 mg PO DAILY [facility] Last Admin: 12/23/17 09:07 Dose: 60 mg Metoprolol Succinate (Toprol Xl -) 50 mg PO DAILY [facility] Last Admin: 12/23/17 09:07 Dose: 50 mg Nifedipine (Procardia Xl -) 60 mg PO DAILY [facility] Last Admin: 12/23/17 09:07 Dose: 60 mg Pantoprazole Sodium (Protonix -) 40 mg PO BID [facility] Last Admin: 12/23/17 09:07 Dose: 40 mg Sodium Bicarbonate (Sodium Bicarbonate -) 650 mg PO DAILY [facility] Last Admin: 12/23/17 09:07 Dose: 650 mg Vancomycin HCl (Vancomycin Oral Solution) 125 mg PO Q6HPO [facility] Last Admin: 12/23/17 12:12 Dose: 125 mg Warfarin Sodium (Coumadin -) 10 mg PO DAILY@1800 [facility] Last Admin: 12/22/17 17:30 Dose: 10 mg - Objective Vital Signs: Vital Signs Temperature 97.8 F 12/23/17 14:00 Pulse Rate 61 12/23/17 14:00 Respiratory Rate 18 12/23/17 14:00 Blood Pressure 131/55 L 12/23/17 14:00 O2 Sat by Pulse Oximetry (%) 95 12/23/17 11:14 Constitutional: Yes: No Distress, Calm Eyes: Yes: Conjunctiva Clear, EOM Intact, PERRL HENT: Yes: Atraumatic, Normocephalic Neck: Yes: Supple, Trachea Midline Cardiovascular: Yes: Regular Rate and Rhythm, S1, S2. No: Bradycardia, Tachycardia, Pulse Irregular, Bruit, JVD, Gallop, Murmur, Rub, S3, S4, Varicosities Respiratory: Yes: Regular, Diminished, On Nasal O2, SOB. No: Rales, Rhonchi, Wheezes Gastrointestinal: Yes: Normal Bowel Sounds, Soft. No: Distention, Tenderness Musculoskeletal: Yes: WNL Extremities: Yes: WNL Edema: No Peripheral Pulses WNL: Yes Peripheral Pulses: Left Doralis Pedis: 2+, Right Dorsalis Pedis: 2+ Neurological: Yes: Alert, Oriented Psychiatric: Yes: Alert, Oriented Labs: CBC, BMP 12/22/17 10:00 12/23/17 06:20 INR, PTT INR 2.33 (0.83-1.09) H 12/23/17 06:20 - ....Imaging Chest X-ray: Report Reviewed, Image Reviewed EKG: Report Reviewed, Image Reviewed Other: Report Reviewed, Image Reviewed Assessment/Plan 77 year-old woman with a PMHx of HTN, DM, atrial fibrillation, s/p ablation on warfarin, advanced CKD, COPD, asthma, DVT and recent admission with dyspnea brought to ED 12/13/2017 with sudden onset SOB with chest pain. Her initial ECG showed sinus tachycardia (100 bpm) with frequent APCs without acute ST-T changes. Repeat ECG 12/14/2017 revealed normal sinus at rate of [address] and T. Troponin is elevated (2.04->2.24), BNP 2456; BNU/creat 67/ 3.7. Echo 12/14/2017: Normal LV size, wall motion, no regional wall motion abnormality. LVEF = 60%. Normal RV. Normal LA/RA in size. Mild AI/MR/TR. 1) NSTEMI: possible due to small vessel CAD. No evidence of regional wall motion abnormalities. LV systolic function is normal. The patient is stable without recurrent angina. -echo showed normal LV systolic function -cont warfarin for INR 2-3. -Continue aspirin 81 mg daily given nstemi. -cont metoprolol succinate 50 mg daily. -Cont Atorvastatin 40 mg daily. -cont Imdur -extensive conversation again held with pt and her daughter yesterday and today in regards to risk/benefits/alternatives to cardiac cath. She is a significant risk for VIKAS and she is currently refusing to consider HD if it were to come to that. As her LV function is normal and recent nuclear stress test 04/2017 showed no ischemia will hold off on cardiac cath for now -for now will cont medical therapy -she will fup closely as outpatient 2) Atrial fibrillation s/p ablation. -Remains in sinus with APCs brief psvt -cont metoprolol succinate 50 mg daily. -Dose warfarin to keep INR 2-3. Pt is acceptable for discharge home from a cardiac standpoint with close outpatient fup.
== END 2017-12-23 17:44 | disposition home or self-care (01) | DRG 280 ==
LOC: JER 18:14 → JERBED 22:16 → J4W 12-14 17:00 → J4S 12-20 15:35
PROVIDERS: ADMIT Internal Medicine; ATTEND Hospitalist
DX: I21.4 Non-ST elevation (NSTEMI) myocardial infarction (principal); J96.01 Acute respiratory failure with hypoxia; I13.0 Hypertensive heart and chronic kidney disease with heart failure and stage 1 through stage 4 chronic kidney disease, or unspecified chronic kidney disease; I50.32 Chronic diastolic (congestive) heart failure; N18.4 Chronic kidney disease, stage 4 (severe); A04.72 Enterocolitis due to Clostridium difficile, not specified as recurrent; E87.2 Acidosis; I47.1 Supraventricular tachycardia; I48.91 Unspecified atrial fibrillation; E11.22 Type 2 diabetes mellitus with diabetic chronic kidney disease; K21.9 Gastro-esophageal reflux disease without esophagitis; D64.9 Anemia, unspecified; J44.9 Chronic obstructive pulmonary disease, unspecified; I25.10 Atherosclerotic heart disease of native coronary artery without angina pectoris; I27.20 Pulmonary hypertension, unspecified; R79.1 Abnormal coagulation profile; J45.909 Unspecified asthma, uncomplicated; R07.9 Chest pain, unspecified; Z87.891 Personal history of nicotine dependence
CPT/HCPCS: 36415; 71045-TC-FY; 80048; 80053; 82803; 82962; 83735; 83880; 84100; 84484; 85025; 85027; 85610; 85730; 87324; 87449; 93005; 93010; 93306-TC; 94640; 94761; 97116-GP; 97161-GP; 99285-25; J1644

== ENCOUNTER 2018-03-08 05:18 | Inpatient (IN) | payer OTHER ==
[2018-03-08 05:33] VITALS: BMI 28.4
--- NOTE | 2018-03-08 05:51 | PDOC ---
History of Present Illness - General Chief Complaint: Shortness of Breath Stated Complaint: DIFFICULTY BREATHING Time Seen by Provider: 03/08/18 05:50 - History of Present Illness Initial Comments: 03/08/18 05:50 Ms. Lorenzo is a 77 yo female w/ pmh of HTN, DM, afib (s/p ablation, on counadin) , CKD, LLE DVT, asthma, COPD who presents for evaluation of sudden onset vomiting and shortness of breath that started directly before presentation. Patient reports she was in her normal state of health when she went to bed last night however woke up to these symptoms. She is currently having difficulty breathing. The patient denies chest pain, headache and dizziness. Denies fever, chills, diarrhea and constipation. Denies dysuria, frequency, urgency and hematuria. Past History - Past Medical History Allergies/Adverse Reactions: Allergies Allergy/AdvReac Type Severity Reaction Status Date / Time No Known Allergies Allergy Verified 12/13/17 18:25 Home Medications: Ambulatory Orders hydrALAZINE HCL [Apresoline -] 100 mg PO Q8H 01/28/17 Ferrous Sulfate 325 mg PO DAILY 02/02/17 Folic Acid 1 mg PO DAILY 12/09/17 Isosorbide Mononitrate [Isosorbide Mononitrate ER] 60 mg PO DAILY 12/09/17 Nifedipine [Nifedipine ER] 60 mg PO DAILY 12/09/17 Pantoprazole Sodium 40 mg PO BID 12/09/17 Tolterodine Tartrate 2 mg PO BID 12/09/17 Umeclidinium Brm/Vilanterol Tr [Anoro Ellipta 62.5-25 Mcg INH] 1 puff IH DAILY 12/09/17 Albuterol 2.5/Ipratropium 0.5 [Duoneb -] 1 amp NEB RQID amp 12/11/17 Budesonide/Formeterol Fumarate [SYMBICORT 160/4.5mcg -] 2 puff IH BID #1 inhaler 12/11/17 Sodium Bicarbonate - 650 mg PO BID #40 tablet 12/11/17 Insulin (Levemir) [Levemir Vial] 20 units SQ HS 12/14/17 Aspirin Coated [Ecotrin -] 81 mg PO DAILY #30 tablet.ec 12/23/17 Atorvastatin Ca [Lipitor] 40 mg PO HS #30 tablet 10/24/18 Metoprolol Succinate [Toprol XL -] 50 mg PO DAILY #30 tab.sr.24h 12/23/17 Vancomycin HCl 125 mg PO Q6H #24 capsule 12/23/17 Warfarin Sodium 5 mg PO ASDIR #10 tablet 12/23/17 Anemia: Yes Asthma: Yes Cancer: No Cardiac Disorders: Yes (AF s/p ablation (coumadin), [place]) CVA: No COPD: Yes CHF: Yes DVT: No Dementia: No Diabetes: Yes (IDDM) Dialysis: No (ckd) GI Disorders: Yes (GERD) Disorders: Yes (frequency) HTN: Yes Hypercholesterolemia: Yes Liver Disease: No Psychiatric Problems: Yes (DEPRESSION) Seizures: No Thyroid Disease: No - Surgical History Abdominal Surgery: Yes (TUBAL LIG.) Appendectomy: No Cardiac Surgery: Yes (ablation) Cholecystectomy: No Lung Surgery: No Neurologic Surgery: No Orthopedic Surgery: Yes (hammer toes,trigger finger) - Family Disease History Family Disease History: Diabetes: Grandparents, [place]: Mother (htn) - Immunization History Immunization Up to Date: Yes - Suicide/Smoking/Psychosocial Hx Smoking Status: Yes Smoking History: Unknown if ever smoked Have you smoked in the past 12 months: No Number of Cigarettes Smoked Daily: 1 If you are a former smoker, when did you quit?: 1 year ago 'Breaking Loose' booklet given: 12/10/17 Hx Alcohol Use: No Drug/Substance Use Hx: No Substance Use Type: None Hx Substance Use Treatment: No Review of Systems - Review of Systems Comments:: 03/08/18 05:51 GENERAL/CONSTITUTIONAL: No fever or chills. No weakness. HEAD, EYES, EARS, NOSE AND THROAT: No change in vision. No ear pain or discharge. No sore throat. CARDIOVASCULAR: +Shortness of breath since waking. No chest pain RESPIRATORY: No cough, wheezing, or hemoptysis. GASTROINTESTINAL: +N/V as described. No diarrhea or constipation. GENITOURINARY: No dysuria, frequency, or change in urination. MUSCULOSKELETAL: No joint or muscle swelling or pain. No neck or back pain. SKIN: No rash NEUROLOGIC: No headache, vertigo, loss of consciousness, or change in strength/ sensation. ENDOCRINE: No increased thirst. No abnormal weight change HEMATOLOGIC/LYMPHATIC: No anemia, easy bleeding, or history of blood clots. ALLERGIC/IMMUNOLOGIC: No hives or skin allergy. *Physical Exam - Vital Signs Last Vital Signs Temp Pulse Resp BP Pulse Ox 98.7 F 110 H 19 129/61 100 03/08/18 05:20 03/08/18 05:20 03/08/18 05:20 03/08/18 05:20 03/08/18 05:20 - Physical Exam Comments: 03/08/18 05:51 GENERAL: +Patient appears acutely SOB. Awake, alert, and fully oriented HEAD: No signs of trauma, normocephalic, atraumatic EYES: PERRLA, EOMI, sclera anicteric, conjunctiva clear ENT: Auricles normal inspection, hearing grossly normal, nares patent, oropharynx clear without exudates. Moist mucosa NECK: Normal ROM, supple, no lymphadenopathy, JVD, or masses LUNGS: +Diffuse wheezing appreciated throughout lung kee. HEART: Regular rate and rhythm, normal S1 and S2, no murmurs, rubs or gallops, peripheral pulses normal and equal bilaterally. ABDOMEN: Soft, nontender, normoactive bowel sounds. No guarding, no rebound. No masses EXTREMITIES: +1+ pedal edema DINESH. Normal inspection, Normal range of motion, no edema. No clubbing or cyanosis. NEUROLOGICAL: Cranial nerves II through XII grossly intact. Normal speech, normal gait, no focal sensorimotor deficits SKIN: Warm, Dry, normal turgor, no rashes or lesions noted. Moderate Sedation - Procedure Monitoring Vital Signs: Procedure Monitoring Vital Signs Temperature 98.7 F 03/08/18 05:20 Pulse Rate 110 H 03/08/18 05:20 Respiratory Rate 19 03/08/18 05:20 Blood Pressure 129/61 03/08/18 05:20 O2 Sat by Pulse Oximetry (%) 100 03/08/18 05:20 ED Treatment Course - LABORATORY CBC & Chemistry Diagram: 03/08/18 06:15 03/08/18 06:15 Medical Decision Making - Medical Decision Making 03/08/18 06:48 Ms. Lorenzo is a 77 yo female w/ pmh as described who presents for evaluation of shortness of breath with associated nausea and vomiting. Given patient's medical problems differential broad and including fluid overload vs. PE vs. ACS. Workup started accordingly broad. Patient placed on bipap for respiratory support and given gentle hydration. 03/08/18 06:52 Patient signed out to Dr. Phan for further evaluation. *DC/Admit/Observation/Transfer Diagnosis at time of Disposition: Shortness of breath Nausea & vomiting Qualifiers: Vomiting type: unspecified Vomiting Intractability: non-intractable Qualified Code(s): R11.2 - Nausea with vomiting, unspecified - Referrals Referrals: Myesha Khan MD [Primary Care Provider] - - Patient Instructions - Post Discharge Activity
[2018-03-08] MEDS ORDERED: SODIUM CHLORIDE 500 ML IV STA (06:00)
[2018-03-08] MEDS ORDERED: ONDANSETRON 4 MG/2 ML VIAL IVPUSH ONE (06:01)
[2018-03-08] MEDS ORDERED: IPRATROPIUM BR 0.02% 0.5 MG/2.5 ML VIAL.NEB. NEB ONE ×2 (06:02→06:16)
[2018-03-08] MEDS ORDERED: dilTIAZem HCL 50 MG/10 ML - 10 ML VIAL IVPUSH ONE (06:06)
[2018-03-08] MEDS ORDERED: ONDANSETRON 4 MG/2 ML VIAL ONE (06:16)
[2018-03-08] MEDS ORDERED: dilTIAZem HCL 125 MG/25 ML - 25 ML VIAL ONE (06:17)
[2018-03-08 06:44] LABS: BASO % 1.2 % (0-2.0); EOS % 1.1 % (0-4.5); HEMATOCRIT 32.6 % (32.4-45.2); HEMOGLOBIN 11.2 GM/dL (10.7-15.3); LYMPH % 21.5 % (8-40); MCH 31.1 pg (25.7-33.7); MCHC 34.3 g/dl (32.0-36.0); MEAN CELL VOLUME 90.9 fl (80-96); MEAN PLT VOLUME 8.9 fl (7.5-11.1); MONO % 8.4 % (3.8-10.2); NEUT % 67.8 % (42.8-82.8); PLATELET COUNT 218 K/MM3 (134-434); RBC 3.59 M/mm3 (3.60-5.2); RDW 17.7 % (11.6-15.6); WHITE BLOOD COUNT 5.3 K/mm3 (4.0-10.0)
[2018-03-08 07:09] LABS: ALK PHOS 47 U/L (45-117); ANION GAP 8 MMOL/L (8-16); BILIRUBIN,TOTAL 0.2 mg/dL (0.2-1); BLOOD UREA NITROGEN 43 mg/dL (7-18); CALCIUM 8.1 mg/dL (8.5-10.1); CHLORIDE 110 mmol/L (98-107); CO2 22 mmol/L (21-32); CREATININE 3.3 mg/dL (0.55-1.3); GLUCOSE,RANDOM 183 mg/dL (74-106); INR 2.62 (0.83-1.09); PROTHROMBIN TIME (PATIENT) 31.2 SEC (9.7-13.0); SGOT/AST 8 U/L (15-37); SGPT/ALT 12 U/L (13-61); SODIUM 140 mmol/L (136-145); TOT PROT 6.1 g/dl (6.4-8.2)
--- NOTE | 2018-03-08 07:15 | PDOC ---
Attending Attestation - Resident Resident Name: MaximsavanaJonySyd - ED Attending Attestation I have performed the following: I have examined & evaluated the patient, The case was reviewed & discussed with the resident, I agree w/resident's findings & plan - HPI HPI: 03/08/18 07:13 Pt comes with SOB, tachy, afib, and looking unwell. - Physicial Exam PE: 03/08/18 07:14 Agree with resident exam. Pt has no pitting edema, but she has rales and crackles in her lungs and she will be placed on bipap. Pt appears dehydrated and required hydration. She is afebrile. Abd soft NT ND. The whole family smells of tobacco cigarettes. - Medical Decision Making 03/08/18 07:15 All labs and CXR pending. Pt will be turned over to the day team. She is a bit more comfortable of BiPAP.
--- NOTE | 2018-03-08 08:27 | PDOC ---
*Physical Exam - Vital Signs Last Vital Signs Temp Pulse Resp BP Pulse Ox 98.7 F 120 H 19 129/61 98 03/08/18 05:20 03/08/18 07:06 03/08/18 05:20 03/08/18 05:20 03/08/18 07:06 - Physical Exam Comments: 03/08/18 08:25 Care endorsed to me by Dr. Espinosa at the end of his shift. 77YOF with h/o HTN, DM, afib (s/p ablation, on coumadin), CKD, LLE DVT, asthma, and COPD who p/ w NBNB vomiting of unknown cause early this morning, with subsequent respiratory distress that family believes was provoked by the vomiting. They note she has been retaining fluid for the past 2-3 days similar to her prior CHF exacerbation, and has had some intermittent SOB but this is not out of the ordinary for her. Pending all labs, admission. ED Treatment Course - LABORATORY CBC & Chemistry Diagram: 03/08/18 06:15 03/08/18 06:15 - ADDITIONAL ORDERS Additional order review: Laboratory Results 03/08/18 03/08/18 03/08/18 06:15 06:15 06:15 PT with INR INR D-Dimer 299 Sodium Potassium Chloride Carbon Dioxide Anion Gap BUN Creatinine Creat Clearance w eGFR Random Glucose Calcium Total Bilirubin AST ALT Alkaline Phosphatase Creatine Kinase Troponin I B-Natriuretic Peptide 817.6 H Total Protein Albumin Blood Type A POSITIVE Antibody Screen Negative 03/08/18 03/08/18 06:15 06:15 PT with INR 31.20 H INR 2.62 H D-Dimer Sodium 140 Potassium 4.0 Chloride 110 H Carbon Dioxide 22 Anion Gap 8 BUN 43 H Creatinine 3.3 H Creat Clearance w eGFR 13.49 Random Glucose 183 H Calcium 8.1 L Total Bilirubin 0.2 AST 8 L ALT 12 L Alkaline Phosphatase 47 Creatine Kinase 129 Troponin I 0.07 H B-Natriuretic Peptide Total Protein 6.1 L Albumin 3.0 L Blood Type Antibody Screen 03/08/18 06:15 RBC 3.59 L MCV 90.9 MCHC 34.3 RDW 17.7 H MPV 8.9 Neutrophils % 67.8 D Lymphocytes % 21.5 D Monocytes % 8.4 Eosinophils % 1.1 Basophils % 1.2 - Medications Given in the ED: ED Medications Discontinued Medications Generic Name Dose Route Start Last Admin Trade Name Jacquelyn PRN Reason Stop Dose Admin Diltiazem HCl 5 mg 03/08/18 06:06 03/08/18 06:33 Cardizem Injection - IVPUSH 03/08/18 06:07 5 mg ONCE ONE Administration Sodium Chloride 500 mls @ 1,000 mls/hr 03/08/18 06:00 03/08/18 06:33 Normal Saline - IV 03/08/18 06:29 1,000 mls/hr ASDIR STA Administration Ipratropium [place] 1 amp 03/08/18 06:02 03/08/18 06:33 Atrovent 0.02% Nebulizer - NEB 03/08/18 06:03 1 amp ONCE ONE Administration Ondansetron HCl 4 mg 03/08/18 06:01 03/08/18 06:33 Zofran Injection IVPUSH 03/08/18 06:02 4 mg ONCE ONE Administration Medical Decision Making - Medical Decision Making 03/08/18 09:45 I have spoken with Dr. Carrion, on for Dr. Griffith, Consult order has been placed. Patient has been admitted to inpatient telemetry, Dr. Chadwick. *DC/Admit/Observation/Transfer Diagnosis at time of Disposition: Shortness of breath, Troponin I above reference range Nausea & vomiting Qualifiers: Vomiting type: unspecified Vomiting Intractability: non-intractable Qualified Code(s): R11.2 - Nausea with vomiting, unspecified Atrial fibrillation Qualifiers: Atrial fibrillation type: unspecified Qualified Code(s): I48.91 - Unspecified atrial fibrillation - Discharge Dispostion Condition at time of disposition: Guarded Decision to Admit order: Yes - Referrals - Patient Instructions - Post Discharge Activity
--- NOTE | 2018-03-08 09:36 | EKG ---
Test Reason : Blood Pressure : / mmHG Vent. Rate : 141 BPM Atrial Rate : 141 BPM P-R Int : 000 ms QRS Dur : 078 ms QT Int : 306 ms P-R-T Axes : 000 -25 096 degrees QTc Int : 468 ms ATRIAL FIBRILLATION WITH RAPID VENTRICULAR RESPONSE POSSIBLE ANTERIOR INFARCT , AGE UNDETERMINED ABNORMAL ECG WHEN COMPARED WITH ECG OF 14-DEC-2017 14:31, VENT. RATE HAS INCREASED BY 84 BPM Confirmed by JOSE ALEJANDRO VILLAGRAN, ANDER ([id number]) on 03/08/2018 9:36:02 AM Referred By: Confirmed By:ANDER BLOUNT MD
--- NOTE | 2018-03-08 09:48 | HP ---
CHIEF COMPLAINT: Shortness of breath PCP: Dr Garsia HISTORY OF PRESENT ILLNESS: The patient is a 77 year old female with a significant PMH of HTN, A.Fib (on Coumadin, s/p ablation), CHF with EF 60%, CKD stage 4/5, LLE DVT, asthma, COPD, GERD, depression that presented to the hospital today complaining of shortness of breath and multiple episodes on NBNB vomiting that started this morning around 3-4 AM. It was associated with chest tightness. On arrival to ED, she was found to have Rapid A.Fib with RVR and was placed on BiPap. As per daughter that was present at bedside, her weight is constantly fluctuating but 3 days ago when she gained about 5 lbs, she restarted her home dose of Lasix 40 md qd with improvement of leg swelling. When I saw the patient in Emergency Room, she denied SOB, chest tightness, cough , fever, chills, dysuria, urgency, nausea or vomiting. ER course was notable for: (1)Cardizem IV, Zofran (2)EKG (3)CXR PAST MEDICAL HISTORY: as above PAST SURGICAL HISTORY: tubal ligation, cardiac ablation, hammer toes, trigger finger Social History: Smoking:former smoker, quit 1 year ago Alcohol:no Drugs: no Family History: Mother: Ca, HTN Grandparents: DM Allergies No Known Allergies Allergy (Verified 12/13/17 18:25) HOME MEDICATIONS: Home Medications Medication Instructions Recorded hydrALAZINE HCL [Apresoline -] 100 mg PO BID 01/28/17 Ferrous Sulfate 325 mg PO BID 02/02/17 Folic Acid 1 mg PO DAILY 12/09/17 Isosorbide Mononitrate [Isosorbide 60 mg PO DAILY 12/09/17 Mononitrate ER] Pantoprazole Sodium 40 mg PO DAILY 12/09/17 Sodium Bicarbonate - 650 mg PO BID #40 tablet 12/11/17 Insulin (Levemir) [Levemir Vial] 20 units SQ HS 12/14/17 Warfarin Sodium 5 mg PO ASDIR #10 tablet 12/23/17 Ascorbic Acid [Vitamin C] 1,000 mg PO DAILY 03/08/18 Furosemide 40 mg PO DAILY 03/08/18 REVIEW OF SYSTEMS CONSTITUTIONAL: Absent: fever, chills, diaphoresis, generalized weakness, malaise, loss of appetite, weight change HEENT: Absent: rhinorrhea, nasal congestion, throat pain CARDIOVASCULAR: peripheral edema Absent: chest pain, syncope, palpitations, irregular heart rate, lightheadedness RESPIRATORY: shortness of breath Absent: cough, dyspnea with exertion, orthopnea, wheezing GASTROINTESTINAL: Absent: abdominal pain, abdominal distension, nausea, vomiting, diarrhea, constipation GENITOURINARY: Absent: dysuria, frequency, urgency, hesitancy MUSCULOSKELETAL: Absent: myalgia, arthralgia, joint swelling SKIN: Absent: rash, itching ENDOCRINE: Absent: unexplained weight gain, unexplained weight loss NEUROLOGIC: Absent: headache, focal weakness or paresthesias, dizziness PSYCHIATRIC: Absent: anxiety, depression PHYSICAL EXAMINATION Vital Signs - 24 hr 03/08/18 03/08/18 03/08/18 05:20 06:19 07:06 Temperature 98.7 F Pulse Rate 110 H 120 H Respiratory 19 Rate Blood Pressure 129/61 O2 Sat by Pulse 100 100 98 Oximetry (%) GENERAL: Awake, alert, and fully oriented, in no acute distress. HEAD: Normal with no signs of trauma. EYES: Pupils equal, round and reactive to light, extraocular movements intact, sclera anicteric, conjunctiva clear. EARS, NOSE, THROAT: Oropharynx clear without exudates. Moist mucous membranes. NECK: Normal range of motion, supple without lymphadenopathy, JVD, or masses. LUNGS: Breath sounds equal, occasional crackles at bases bilaterally. No wheezes , no accessory muscle use. HEART: Regular rate and rhythm, normal S1 and S2 without murmur, rub or gallop. ABDOMEN: Soft, nontender, not distended, normoactive bowel sounds, no guarding, no rebound, no masses. MUSCULOSKELETAL: Normal range of motion at all joints. No bony deformities or tenderness. UPPER EXTREMITIES: 2+ pulses, no peripheral edema. LOWER EXTREMITIES: 2+ pulses, warm, 1+ peripheral edema. NEUROLOGICAL: Non focal. Normal speech. PSYCHIATRIC: Cooperative. Good eye contact. Appropriate mood and affect. SKIN: Warm, dry, normal turgor, no rashes or lesions noted. Laboratory Results - last 24 hr 03/08/18 03/08/18 03/08/18 06:15 06:15 06:15 WBC 5.3 RBC 3.59 L Hgb 11.2 Hct 32.6 MCV 90.9 MCH 31.1 MCHC 34.3 RDW 17.7 H Plt Count 218 MPV 8.9 Absolute Neuts (auto) 3.6 Neutrophils % 67.8 D Lymphocytes % 21.5 D Monocytes % 8.4 Eosinophils % 1.1 Basophils % 1.2 Nucleated RBC % 0 PT with INR 31.20 H INR 2.62 H D-Dimer Sodium 140 Potassium 4.0 Chloride 110 H Carbon Dioxide 22 Anion Gap 8 BUN 43 H Creatinine 3.3 H Creat Clearance w eGFR 13.49 Random Glucose 183 H Calcium 8.1 L Total Bilirubin 0.2 AST 8 L ALT 12 L Alkaline Phosphatase 47 Creatine Kinase 129 Troponin I 0.07 H B-Natriuretic Peptide Total Protein 6.1 L Albumin 3.0 L Blood Type Antibody Screen 03/08/18 03/08/18 03/08/18 06:15 06:15 06:15 WBC RBC Hgb Hct MCV MCH MCHC RDW Plt Count MPV Absolute Neuts (auto) Neutrophils % Lymphocytes % Monocytes % Eosinophils % Basophils % Nucleated RBC % PT with INR INR D-Dimer 299 Sodium Potassium Chloride Carbon Dioxide Anion Gap BUN Creatinine Creat Clearance w eGFR Random Glucose Calcium Total Bilirubin AST ALT Alkaline Phosphatase Creatine Kinase Troponin I B-Natriuretic Peptide 817.6 H Total Protein Albumin Blood Type A POSITIVE Antibody Screen Negative ASSESSMENT/PLAN: he patient is a 77 year old female with a significant PMH of HTN, A.Fib (on Coumadin, s/p ablation), CHF with EF 60%, CKD stage 4/5, LLE DVT, asthma, COPD, that presented to the hospital today complaining of shortness of breath and multiple episodes on NBNB vomiting. SOB: -likely caused by Rapid A.Fib with RVR 141, that converted to NSR after Cardizem IV -Also r/o ACS with elevated troponin 0.07, will follow next one at 12 PM, repeat EKG, -CHF exacerbation less likely, BNP 817, occasional crackles b/l and minimal swelling in LE, compliant with Lasix -f/u Cardiology recommendations, last time she was seen in November -last ECHO 12/14/17: Nl LV size, wall motion EF 60 %, Nl RV, LA RA in size. Mild MR/TR -cardiac monitoring on telemetry -CXR no acute pathology, was also given Duoneb in ED and placed on BiPap. Now symptoms improved, not requiring Oxygen Supplementation Nausea and vomiting: -possibly caused by Rapid A.Fib, gastroenteritis, given Zofran, resolved -no signs of infection, no fever, chills, elevated WBC A.Fib: -converted to NSR -f/u INR with goal 2-3, continue Coumadin 7 mg (dose confirmed with the patient) CAD: -cont home medications -cont Nifedipine ER 60 mg qd, Imdur 60 mg qd HTN: cont home meds: Hydralazine HCL 100 mg CKD: -Cr 3.3, BUN 43, at baseline -continue Sodium bicarbonate -UA ordered DMII: -ISS ACHS -BGM ACHS -Cont [id number] units HS GERD: -cont pantoprazole 40 mg qd DVT PPX: -Heparin sq BID F/E/N: no/no changes/Diabetic diet Dispo: tele obs Problem List - Problem (1) Afib Code(s): I48.91 - UNSPECIFIED ATRIAL FIBRILLATION Qualifiers: Atrial fibrillation type: unspecified Qualified Code(s): I48.91 - Unspecified atrial fibrillation (2) Nausea & vomiting Code(s): R11.2 - NAUSEA WITH VOMITING, UNSPECIFIED Qualifiers: Vomiting type: unspecified Vomiting Intractability: non-intractable Qualified Code(s): R11.2 - Nausea with vomiting, unspecified (3) Shortness of breath Code(s): R06.02 - SHORTNESS OF BREATH (4) Troponin I above reference range Code(s): R74.8 - ABNORMAL LEVELS OF OTHER SERUM ENZYMES (5) Acute on chronic renal insufficiency Code(s): N28.9 - DISORDER OF KIDNEY AND URETER, UNSPECIFIED; N18.9 - CHRONIC KIDNEY DISEASE, UNSPECIFIED (6) Asthma Code(s): J45.909 - UNSPECIFIED ASTHMA, UNCOMPLICATED (7) CKD (chronic kidney disease) Code(s): N18.9 - CHRONIC KIDNEY DISEASE, UNSPECIFIED (8) COPD (chronic obstructive pulmonary disease) Code(s): J44.9 - CHRONIC OBSTRUCTIVE PULMONARY DISEASE, UNSPECIFIED Qualifiers: COPD type: chronic bronchitis (9) CHF (congestive heart failure) Code(s): I50.9 - HEART FAILURE, UNSPECIFIED (10) CKD stage 4 due to type 2 diabetes mellitus Code(s): E11.22 - TYPE 2 DIABETES MELLITUS W DIABETIC CHRONIC KIDNEY DISEASE; N18.4 - CHRONIC KIDNEY DISEASE, STAGE 4 (SEVERE) (11) Depression Code(s): F32.9 - MAJOR DEPRESSIVE DISORDER, SINGLE EPISODE, UNSPECIFIED Qualifiers: Depression Type: unspecified Qualified Code(s): F32.9 - Major depressive disorder, single episode, unspecified (12) Gastroesophageal reflux disease Code(s): K21.9 - GASTRO-ESOPHAGEAL REFLUX DISEASE WITHOUT ESOPHAGITIS (13) History of DVT (deep vein thrombosis) Code(s): Z86.718 - PERSONAL HISTORY OF OTHER VENOUS THROMBOSIS AND EMBOLISM (14) Hypertension Code(s): I10 - ESSENTIAL (PRIMARY) HYPERTENSION Qualifiers: Hypertension type: essential hypertension Qualified Code(s): I10 - Essential (primary) hypertension (15) Type 2 diabetes mellitus Code(s): E11.9 - TYPE 2 DIABETES MELLITUS WITHOUT COMPLICATIONS Qualifiers: Diabetes mellitus complication status: with circulatory complication Visit type - Emergency Visit Emergency Visit: Yes ED Registration Date: 03/08/18 Care time: The patient presented to the Emergency Department on the above date and was hospitalized for further evaluation of their emergent condition. - New Patient This patient is new to me today: No - Critical Care Critical Care patient: No
[2018-03-08] MEDS ORDERED: HEMOQUE TEST 1 EACH EACH ONE (13:08)
--- NOTE | 2018-03-08 14:43 | EKG ---
Test Reason : Blood Pressure : / mmHG Vent. Rate : 071 BPM Atrial Rate : 071 BPM P-R Int : 152 ms QRS Dur : 074 ms QT Int : 402 ms P-R-T Axes : 053 -31 069 degrees QTc Int : 436 ms NORMAL SINUS RHYTHM LEFT AXIS DEVIATION ABNORMAL ECG WHEN COMPARED WITH ECG OF 08-MAR-2018 05:24, VENT. RATE HAS DECREASED BY 70 BPM Confirmed by ANDER BLOUNT MD ([id number]) on 03/08/2018 2:43:43 PM Referred By: MARÍA GRIFFITHS DR Confirmed By:ANDER BLOUNT MD
[2018-03-08] MEDS ORDERED: FUROSEMIDE 40 MG/4 ML INJECTABLE VIAL ONE (15:51)
[2018-03-08] MEDS: FUROSEMIDE 40 MG/4 ML INJECTABLE VIAL IVPUSH SCH (15:54)
--- NOTE | 2018-03-08 16:01 | CON.CARD ---
Consult Consult Specialty:: Cardiology Referred by:: ER Reason for Consultation:: elevated troponin - History of Present Illness Chief Complaint: sob History of Present Illness: 77 year old woman with a history of hypertension, hyperlipidemia, heavy smoking , PAD with claudication, diabetes type II, atrial flutter status post ablation several years ago, followed by paroxysmal atrial fibrillation more recently, DVT 2016, remains on full AC for Afib, CKD, severe depression, chronic fatigue, chronic dyspnea on exertion of unclear etiology, multiple admissions for sob/ hypoxia with clear lungs and clear lung imaging, recent outpatient V/Q showing low prob PE, with ventilation worse than perfusion, has been seen by multiple pulmonologists, has not improved with bronchodilators or inhaled corticosteroids , h/o R heart cath at [facility] years ago showing no sig pulm htn as per pt.?? Admisson [facility] 04/2017 with elevated troponin but nuclear stress test showed no ischemia and echo showed normal LV systolic function. Never had LHC due to CKD. Again admitted to [facility] 12/14/17 with chest pain and sob, elevated troponins up to 3's with normal CK level, normal LV systolic function on echo again. She presented today with sob, af with RVR converted to NSR. Echo 12/14/2017: Normal LV size, wall motion, no regional wall motion abnormality. LVEF = 60%. Normal RV. Normal LA/RA in size. Mild AI/MR/TR. LOLLY nuclear stress test 05/26/17 [facility] No ischemia or Infarct LVEF 46% V/Q scan 07/31/17-low prob PE, large airway or parenchymal disease with worse ventilation than perfusion - Past Medical History [employer]: Yes: Peripheral Neuropathy Cardio/Vascular: Yes: AFIB, CHF, HTN, Hyperlipdemia, Other (Atrial flutter s/p ablation, PAD) Pulmonary: Yes: COPD Renal/: Yes: Renal Inusuff (stage 4), Other (Overactive Bladder) Psych: Yes: Depression Endocrine: Yes: Diabetes Mellitus (initially on oral agents, now on insulin) - Past Surgical History Past Surgical History: Yes: Colonoscopy (polyps a few years ago), Hysterectomy ( fibroids), Tubal Ligation, Upper Endoscopy (neg 1+ yrs ago) - Alcohol/Substance Use Hx Alcohol Use: No - Smoking History Smoking history: Unknown if ever smoked Have you smoked in the past 12 months: No Aproximately how many cigarettes per day: 1 If you are a former smoker, when did you quit?: 1 year ago - Social History Usual Living Arrangement: With Child ADL: Family Assistance History of Recent Travel: No Home Medications - Allergies Allergies/Adverse Reactions: Allergies Allergy/AdvReac Type Severity Reaction Status Date / Time No Known Allergies Allergy Verified 12/13/17 18:25 - Home Medications Home Medications: Ambulatory Orders hydrALAZINE HCL [Apresoline -] 100 mg PO BID 01/28/17 Ferrous Sulfate 325 mg PO BID 02/02/17 Folic Acid 1 mg PO DAILY 12/09/17 Isosorbide Mononitrate [Isosorbide Mononitrate ER] 60 mg PO DAILY 12/09/17 Pantoprazole Sodium 40 mg PO DAILY 12/09/17 Sodium Bicarbonate - 650 mg PO BID #40 tablet 12/11/17 Insulin (Levemir) [Levemir Vial] 20 units SQ HS 12/14/17 Warfarin Sodium 5 mg PO ASDIR #10 tablet 12/23/17 Ascorbic Acid [Vitamin C] 1,000 mg PO DAILY 03/08/18 Furosemide 40 mg PO DAILY 03/08/18 Family Disease History - Family Disease History Family Disease History: Diabetes: Grandparent, Mother, Sister (lung cancer), [place] : Sister Vital Signs: Vital Signs Temperature 98.1 F 03/08/18 11:03 Pulse Rate 75 03/08/18 11:03 Respiratory Rate 18 03/08/18 11:03 Blood Pressure 131/55 L 03/08/18 11:03 O2 Sat by Pulse Oximetry (%) 100 03/08/18 11:03 - Other Data Labs, Other Data: CBC, BMP 03/08/18 06:15 03/08/18 06:15 INR, PTT INR 2.62 (0.83-1.09) H 03/08/18 06:15 Troponin, BNP 03/08/18 03/08/18 03/08/18 06:15 06:15 11:45 Troponin I 0.07 H 2.44 H* B-Natriuretic Peptide 817.6 H Troponin, BNP 03/08/18 03/08/18 03/08/18 06:15 06:15 11:45 Troponin I 0.07 H 2.44 H* B-Natriuretic Peptide 817.6 H Assessment/Plan 77 year old woman with a history of hypertension, hyperlipidemia, heavy smoking , PAD with claudication, diabetes type II, atrial flutter status post ablation several years ago, followed by paroxysmal atrial fibrillation more recently, DVT 2016, remains on full AC for Afib, CKD, severe depression, chronic fatigue, chronic dyspnea on exertion of unclear etiology, multiple admissions for sob/ hypoxia with clear lungs and clear lung imaging, recent outpatient V/Q showing low prob PE, with ventilation worse than perfusion, has been seen by multiple pulmonologists, has not improved with bronchodilators or inhaled corticosteroids , h/o R heart cath at [facility] years ago showing no sig pulm htn as per pt.?? Admisson [facility] 04/2017 with elevated troponin but nuclear stress test showed no ischemia and echo showed normal LV systolic function. Never had LHC due to CKD. Again admitted to [facility] 12/14/17 with chest pain and sob, elevated troponins up to 3's with normal CK level, normal LV systolic function on echo again. She presented today with sob, af with RVR converted to NSR. --continue current medications --restart diltiazem CD 120 mg daily --increase lasix to 80 mg IV daily. --no need for ischemia workup. Troponin is nonischemic pattern, chronic due to CKD. --No need for repeat echo. --Daily wts, fluid restriction.
--- NOTE | 2018-03-08 16:50 | PN ---
Teaching Attending Note Name of Resident: Yasmine Yuan ATTENDING PHYSICIAN STATEMENT I saw and evaluated the patient. I reviewed the resident's note and discussed the case with the resident. I agree with the resident's findings and plan as documented. SUBJECTIVE Feels well. no further shortness of breath, chest discomfort, or vomiting. No fever/chills. No cough/sputum. OBJECTIVE Afebrile, Hemodynamically Stable. Last Vital Signs Temp Pulse Resp BP Pulse Ox 98.1 F 75 18 131/55 L 100 03/08/18 11:03 03/08/18 11:03 03/08/18 11:03 03/08/18 11:03 03/08/18 11:03 HEENT - Atraumatic, Normocephalic Heart - S1, S2, RRR Lungs - clear to auscultation Abdomen - soft, non-tender. Bowel Sounds normal. Extremities - mild edema. No calf tenderness Laboratory Results - last 24 hr 03/08/18 03/08/18 03/08/18 06:15 06:15 06:15 WBC 5.3 RBC 3.59 L Hgb 11.2 Hct 32.6 MCV 90.9 MCH 31.1 MCHC 34.3 RDW 17.7 H Plt Count 218 MPV 8.9 Absolute Neuts (auto) 3.6 Neutrophils % 67.8 D Lymphocytes % 21.5 D Monocytes % 8.4 Eosinophils % 1.1 Basophils % 1.2 Nucleated RBC % 0 PT with INR 31.20 H INR 2.62 H D-Dimer Sodium 140 Potassium 4.0 Chloride 110 H Carbon Dioxide 22 Anion Gap 8 BUN 43 H Creatinine 3.3 H Creat Clearance w eGFR 13.49 POC Glucometer Random Glucose 183 H Calcium 8.1 L Total Bilirubin 0.2 AST 8 L ALT 12 L Alkaline Phosphatase 47 Creatine Kinase 129 Creatine Kinase Index CK-MB (CK-2) Troponin I 0.07 H B-Natriuretic Peptide Total Protein 6.1 L Albumin 3.0 L Blood Type Antibody Screen 03/08/18 03/08/18 03/08/18 06:15 06:15 06:15 WBC RBC Hgb Hct MCV MCH MCHC RDW Plt Count MPV Absolute Neuts (auto) Neutrophils % Lymphocytes % Monocytes % Eosinophils % Basophils % Nucleated RBC % PT with INR INR D-Dimer 299 Sodium Potassium Chloride Carbon Dioxide Anion Gap BUN Creatinine Creat Clearance w eGFR POC Glucometer Random Glucose Calcium Total Bilirubin AST ALT Alkaline Phosphatase Creatine Kinase Creatine Kinase Index CK-MB (CK-2) Troponin I B-Natriuretic Peptide 817.6 H Total Protein Albumin Blood Type A POSITIVE Antibody Screen Negative 03/08/18 03/08/18 11:45 13:12 WBC RBC Hgb Hct MCV MCH MCHC RDW Plt Count MPV Absolute Neuts (auto) Neutrophils % Lymphocytes % Monocytes % Eosinophils % Basophils % Nucleated RBC % PT with INR INR D-Dimer Sodium Potassium Chloride Carbon Dioxide Anion Gap BUN Creatinine Creat Clearance w eGFR POC Glucometer [id number] Random Glucose Calcium Total Bilirubin AST ALT Alkaline Phosphatase Creatine Kinase 169 Creatine Kinase Index 5.7 H CK-MB (CK-2) 9.8 H Troponin I 2.44 H* B-Natriuretic Peptide Total Protein Albumin Blood Type Antibody Screen Current Medications Generic Name Dose Route Start Last Admin Trade Name Freq PRN Reason Stop Dose Admin Diltiazem HCl 120 mg 03/09/18 10:00 Cardizem Cd - PO DAILY [facility] Furosemide 80 mg 03/08/18 14:45 03/08/18 15:54 Lasix Injection - IVPUSH 80 mg DAILY [facility] Administration Hydralazine HCl 100 mg 03/09/18 10:00 Apresoline - PO BID [facility] Insulin Detemir 20 units 03/08/18 22:00 Levemir Vial SQ HS [facility] Isosorbide Mononitrate 60 mg 03/09/18 10:00 Imdur - PO DAILY [facility] Pantoprazole Sodium 40 mg 03/09/18 10:00 Protonix - PO DAILY [facility] Sodium Bicarbonate 650 mg 03/08/18 22:00 Sodium Bicarbonate - PO BID [facility] Warfarin Sodium 5 mg 03/09/18 10:00 Coumadin - PO ASDIR [facility] Home Medications Medication Instructions Recorded hydrALAZINE HCL [Apresoline -] 100 mg PO BID 01/28/17 Ferrous Sulfate 325 mg PO BID 02/02/17 Folic Acid 1 mg PO DAILY 12/09/17 Isosorbide Mononitrate [Isosorbide 60 mg PO DAILY 12/09/17 Mononitrate ER] Pantoprazole Sodium 40 mg PO DAILY 12/09/17 Sodium Bicarbonate - 650 mg PO BID #40 tablet 12/11/17 Insulin (Levemir) [Levemir Vial] 20 units SQ HS 10/15/18 Warfarin Sodium 5 mg PO ASDIR #10 tablet 12/23/17 Ascorbic Acid [Vitamin C] 1,000 mg PO DAILY 03/08/18 Furosemide 40 mg PO DAILY 03/08/18 ASSESSMENT/PLAN: 77 year female with PMH of HTN, HLD, PAD with claudication, Atrial Fibrillation (s/p ablation, on Coumadin), Chronic Diastolic CHF with EF 60%, CKD 4/5, LLE DVT , Asthma/COPD, GERD, Depression, presented with acute onset left sided chest discomfort, shortness of breath, and several episodes of vomiting this AM at around 3am. She denies palpitations or lightheadedness. No cough/sputum/ hemoptysis/fever/chills. She recently started her home Lasix 2 days ago which she takes prn for weight gain. In ED, she was found to be dyspneic with RVR. She was given Cardizem and initially placed in BiPAP but was on room air by the time of my interview, at which point she was back in sinus rhythm. 1. Atrial Fibrillation with RVR Reverted to SR s/p IV cardizem in ED Associated SOB, nausea, vomiting - resolved once patient reverted to SR. No ongoing symptoms - no evidence for infective etiology. Resumed on Diltiazem and Warfarin. Daily INR check. 2. Acute NSTEMI Troponin rise to 2.4, likely sec to demand ischemia. ECG - SR, no acute changes. Recent neg Lexiscan 05/17 Echo 12/17 - normal EF, no wall motion abnormality. Cardio eval for possible ACS. Currently pain free. 3. HTN - resumed on Diltiazem. Continue Hydralazine, ISMN 4. CKD 3/4 Cr 3.3, at baseline. 5. DM 2 - Continue Levemir and sliding scale. 6. GERD - Continue Pantoprazole. 7. Chronic Diastolic CHF - EF 12/17 - normal. No evidence of acute decompensation. On home Lasix 40mg. Intensification of Lasix diuresis as per Cardio. DVT Px - on Coumadin.
[2018-03-08] MEDS ORDERED: HEPARIN NA (PORCINE) 5,000 UNITS/ML 1ML VIAL SQ SCH (18:00)
[2018-03-08 19:21] LABS: URINE APPEARANCE CLEAR; URINE BILIRUBIN NEGATIVE (<2.0 mg/dL); URINE COLOR LTYELLOW; URINE GLUCOSE (UA) 1+ (NEGATIVE); URINE KETONE NEGATIVE (NEGATIVE); URINE LEUK ESTERASE NEGATIVE (NEGATIVE); URINE NITRITE NEGATIVE (NEGATIVE); URINE PROTEIN 2+ (NEGATIVE); URINE UROBILINOGEN NEGATIVE mg/dL (0.2-1.0)
[2018-03-08 19:32] LABS: EPI CELLS RARE /HPF (FEW); URINE BACTERIA RARE /hpf (NONE SEEN); URINE MUCUS RARE
[2018-03-08] MEDS ORDERED: INSULIN (LEVEMIR) 100 UNITS/ML UNITS SQ ONE (22:32)
[2018-03-08] MEDS: SODIUM BICARBONATE 650 MG TABLET PO SCH (22:40)
[2018-03-08] MEDS: INSULIN (LEVEMIR) 100 UNITS/ML UNITS SQ SCH (22:40)
[2018-03-09 06:53] LABS: BASO % 1.8 % (0-2.0); EOS % 3.6 % (0-4.5); HEMATOCRIT 31.7 % (32.4-45.2); LYMPH % 34.7 % (8-40); MCH 29.1 pg (25.7-33.7); MCHC 31.5 g/dl (32.0-36.0); MEAN CELL VOLUME 92.2 fl (80-96); MEAN PLT VOLUME 8.9 fl (7.5-11.1); NEUT % 47.9 % (42.8-82.8); PLATELET COUNT 191 K/MM3 (134-434); RBC 3.44 M/mm3 (3.60-5.2); WHITE BLOOD COUNT 4.7 K/mm3 (4.0-10.0)
[2018-03-09 07:21] LABS: INR 3.31 (0.83-1.09); PROTHROMBIN TIME (PATIENT) 39.5 SEC (9.7-13.0)
[2018-03-09 07:22] LABS: ALBUMIN 2.8 g/dl (3.4-5.0); ALK PHOS 46 U/L (45-117); ANION GAP 9 MMOL/L (8-16); BILIRUBIN,TOTAL 0.4 mg/dL (0.2-1); BLOOD UREA NITROGEN 50 mg/dL (7-18); CALCIUM 7.9 mg/dL (8.5-10.1); CHLORIDE 112 mmol/L (98-107); CO2 21 mmol/L (21-32); CREATININE 3.3 mg/dL (0.55-1.3); GLUCOSE,RANDOM 126 mg/dL (74-106); MAGNESIUM 1.6 mg/dL (1.8-2.4); PHOSPHOROUS 4.9 mg/dL (2.5-4.9); POTASSIUM 4.2 mmol/L (3.5-5.1); SGOT/AST 13 U/L (15-37); SGPT/ALT 12 U/L (13-61); SODIUM 142 mmol/L (136-145); TOT PROT 5.6 g/dl (6.4-8.2)
--- NOTE | 2018-03-09 09:53 | PN ---
Progress Note, Physician Chief Complaint: still sob tele nsr. History of Present Illness: 77 year old woman with a history of hypertension, hyperlipidemia, heavy smoking , PAD with claudication, diabetes type II, atrial flutter status post ablation several years ago, followed by paroxysmal atrial fibrillation more recently, DVT 2016, remains on full AC for Afib, CKD, severe depression, chronic fatigue, chronic dyspnea on exertion of unclear etiology, multiple admissions for sob/ hypoxia with clear lungs and clear lung imaging, recent outpatient V/Q showing low prob PE, with ventilation worse than perfusion, has been seen by multiple pulmonologists, has not improved with bronchodilators or inhaled corticosteroids , h/o R heart cath at [facility] years ago showing no sig pulm htn as per pt.?? Admisson [facility] 04/2017 with elevated troponin but nuclear stress test showed no ischemia and echo showed normal LV systolic function. Never had LH due to CKD. Again admitted to [facility] 12/14/17 with chest pain and sob, elevated troponins up to 3's with normal CK level, normal LV systolic function on echo again. She presented today with sob, af with RVR converted to NSR. Echo 12/14/2017: Normal LV size, wall motion, no regional wall motion abnormality. LVEF = 60%. Normal RV. Normal LA/RA in size. Mild AI/MR/TR. LOLLY nuclear stress test 05/26/17 [facility] No ischemia or Infarct LVEF 46% V/Q scan 07/31/17-low prob PE, large airway or parenchymal disease with worse ventilation than perfusion - Current Medication List Current Medications: Active Medications Diltiazem HCl (Cardizem Cd -) 120 mg PO DAILY [facility] Furosemide (Lasix Injection -) 80 mg IVPUSH DAILY [facility] Last Admin: 03/08/18 15:54 Dose: 80 mg Hydralazine HCl (Apresoline -) 100 mg PO BID [facility] Insulin Detemir (Levemir Vial) 20 units SQ HS [facility] Last Admin: 03/08/18 22:40 Dose: 20 units Isosorbide Mononitrate (Imdur -) 60 mg PO DAILY [facility] Pantoprazole Sodium (Protonix -) 40 mg PO DAILY [facility] Sodium Bicarbonate (Sodium Bicarbonate -) 650 mg PO BID [facility] Last Admin: 03/08/18 22:40 Dose: 650 mg Warfarin Sodium (Coumadin -) 7.5 mg PO DAILY@1800 [facility] - Objective Vital Signs: Vital Signs Temperature 98.1 F 03/08/18 11:03 Pulse Rate 72 03/09/18 05:57 Respiratory Rate 20 03/09/18 05:57 Blood Pressure 128/60 03/09/18 05:57 O2 Sat by Pulse Oximetry (%) 99 03/09/18 05:57 Constitutional: Yes: No Distress, Calm Eyes: Yes: Conjunctiva Clear, EOM Intact HENT: Yes: Atraumatic, Normocephalic Neck: Yes: Trachea Midline Cardiovascular: Yes: Regular Rate and Rhythm Respiratory: Yes: Rales (bilat bases) Gastrointestinal: Yes: Normal Bowel Sounds Musculoskeletal: Yes: WNL Extremities: Yes: WNL Edema: Yes Edema: LLE: Trace, RLE: Trace Labs: CBC, BMP 03/09/18 05:30 03/09/18 05:30 INR, PTT INR 3.31 (0.83-1.09) H 03/09/18 05:30 Assessment/Plan 77 year old woman with a history of hypertension, hyperlipidemia, heavy smoking , PAD with claudication, diabetes type II, atrial flutter status post ablation several years ago, followed by paroxysmal atrial fibrillation more recently, DVT 2015, remains on full AC for Afib, CKD, severe depression, chronic fatigue, chronic dyspnea on exertion of unclear etiology, multiple admissions for sob/ hypoxia with clear lungs and clear lung imaging, recent outpatient V/Q showing low prob PE, with ventilation worse than perfusion, has been seen by multiple pulmonologists, has not improved with bronchodilators or inhaled corticosteroids , h/o R heart cath at [facility] years ago showing no sig pulm htn as per pt.?? Admisson [facility] 04/2017 with elevated troponin but nuclear stress test showed no ischemia and echo showed normal LV systolic function. Never had [facility] due to CKD. Again admitted to [facility] 12/14/17 with chest pain and sob, elevated troponins up to 3's with normal CK level, normal LV systolic function on echo again. She presented today with sob, af with RVR converted to NSR. --continue current medications --Continue diltiazem CD 120 mg daily --Continue lasix to 80 mg IV daily. --no need for ischemia workup. Troponin is nonischemic pattern, chronic due to CKD. --No need for repeat echo. --Daily wts, fluid restriction.
[2018-03-09] MEDS ORDERED: WARFARIN NA 5 MG TABLET (UD) PO SCH ×3 (10:00)
[2018-03-09] MEDS ORDERED: FUROSEMIDE 40 MG TABLET (FP) PO SCH (10:00)
[2018-03-09] MEDS: ISOSORBIDE MONONITRATE 60 MG TAB.SR.24H (FP) PO SCH (10:53)
[2018-03-09] MEDS: hydrALAZINE HCL 50 MG TABLET (FP) PO SCH ×2 (10:53→21:12)
[2018-03-09] MEDS: FUROSEMIDE 40 MG/4 ML INJECTABLE VIAL IVPUSH SCH (10:54)
[2018-03-09] MEDS: PANTOPRAZOLE 40 MG TABLET (FP) PO SCH (10:54)
[2018-03-09] MEDS: SODIUM BICARBONATE 650 MG TABLET PO SCH ×2 (10:54→21:12)
--- NOTE | 2018-03-09 11:30 | PN ---
Physical Exam: SUBJECTIVE: Patient seen and examined at bedside this morning. She denies any chest pain overnight, or this morning. Endorses improvement in her breathing, with diminished shortness of breath on nasal canula 2L. OBJECTIVE: Vital Signs Period Temp Pulse Resp BP Sys/Renee Pulse Ox Last 24 Hr 98.2 F 59-72 20-20 128-173/60-69 98-99 GENERAL: Awake, alert, and fully oriented, in no acute distress. HEAD: Normal with no signs of trauma. EYES: Pupils equal, round and reactive to light, extraocular movements intact without nystagmus b/l. Sclera anicteric, conjunctiva clear b/l. EARS, NOSE, THROAT: Oropharynx clear without exudates. Moist mucous membranes. NECK: Supple without lymphadenopathy. No JVD appreciated. LUNGS: Good inspiratory effort and air entry b/l. No wheezing, no crackles auscultated b/l. Patient is not using accessory muscles of respiration HEART: Regular rate and rhythm. Normal S1 and S2 without murmur, rub or gallop. ABDOMEN: Soft, nontender, not distended. Normoactive bowel sounds X4 quadrants. No guarding, no rebound tenderness. No hepatomegaly appreciated. MUSCULOSKELETAL: Normal range of motion at all joints. No bony deformities or tenderness. Strength 4/5 b/l upper and lower extremities. UPPER EXTREMITIES: 2+ radial pulses b/l, warm, well-perfused. No cyanosis noted. LOWER EXTREMITIES: 2+ dorsalis pulses b/l, warm, well-perfused. No calf tenderness b/l. Trace peripheral lower extremity pitting edema b/l. NEUROLOGICAL: Cranial nerves II-XII intact. Normal speech. No gross focal deficits. PSYCHIATRIC: Cooperative. Appropriate mood and affect upon my encounter today. SKIN: Warm, dry, no rashes or lesions noted. Laboratory Results - last 24 hr 03/08/18 03/08/18 03/08/18 11:45 13:12 19:05 WBC RBC Hgb Hct MCV MCH MCHC RDW Plt Count MPV Absolute Neuts (auto) Neutrophils % Lymphocytes % Monocytes % Eosinophils % Basophils % Nucleated RBC % PT with INR INR Sodium Potassium Chloride Carbon Dioxide Anion Gap BUN Creatinine Creat Clearance w eGFR POC Glucometer [id number] Random Glucose Calcium Phosphorus Magnesium Total Bilirubin AST ALT Alkaline Phosphatase Creatine Kinase 169 Creatine Kinase Index 5.7 H CK-MB (CK-2) 9.8 H Troponin I 2.44 H* Total Protein Albumin Urine Color Ltyellow Urine Appearance Clear Urine pH 5.0 Ur Specific [place] 1.013 Urine Protein 2+ H Urine Glucose (UA) 1+ H D Urine Ketones Negative Urine Blood Negative Urine Nitrite Negative Urine Bilirubin Negative Urine Urobilinogen Negative Ur Leukocyte Esterase Negative Urine WBC (Auto) <1 Urine RBC (Auto) None Ur Epithelial Cells Rare Urine Bacteria Rare Urine Mucus Rare 03/08/18 03/09/18 03/09/18 20:00 03:50 05:30 WBC 4.7 RBC 3.44 L Hgb 10.0 L Hct 31.7 L MCV 92.2 MCH 29.1 MCHC 31.5 L RDW 18.0 H Plt Count 191 MPV 8.9 Absolute Neuts (auto) 2.3 Neutrophils % 47.9 D Lymphocytes % 34.7 D Monocytes % 12.0 H Eosinophils % 3.6 D Basophils % 1.8 Nucleated RBC % 0 PT with INR INR Sodium Potassium Chloride Carbon Dioxide Anion Gap BUN Creatinine Creat Clearance w eGFR POC Glucometer Random Glucose Calcium Phosphorus Magnesium Total Bilirubin AST ALT Alkaline Phosphatase Creatine Kinase Creatine Kinase Index CK-MB (CK-2) Troponin I 2.59 H* 1.62 H* Total Protein Albumin Urine Color Urine Appearance Urine pH Ur Specific [place] Urine Protein Urine Glucose (UA) Urine Ketones Urine Blood Urine Nitrite Urine Bilirubin Urine Urobilinogen Ur Leukocyte Esterase Urine WBC (Auto) Urine RBC (Auto) Ur Epithelial Cells Urine Bacteria Urine Mucus 03/09/18 03/09/18 05:30 05:30 WBC RBC Hgb Hct MCV MCH MCHC RDW Plt Count MPV Absolute Neuts (auto) Neutrophils % Lymphocytes % Monocytes % Eosinophils % Basophils % Nucleated RBC % PT with INR 39.50 H INR 3.31 H Sodium 142 Potassium 4.2 Chloride 112 H Carbon Dioxide 21 Anion Gap 9 BUN 50 H Creatinine 3.3 H Creat Clearance w eGFR 13.49 POC Glucometer Random Glucose 126 H Calcium 7.9 L Phosphorus 4.9 Magnesium 1.6 L Total Bilirubin 0.4 AST 13 L ALT 12 L Alkaline Phosphatase 46 Creatine Kinase Creatine Kinase Index CK-MB (CK-2) Troponin I Total Protein 5.6 L Albumin 2.8 L Urine Color Urine Appearance Urine pH Ur Specific [place] Urine Protein Urine Glucose (UA) Urine Ketones Urine Blood Urine Nitrite Urine Bilirubin Urine Urobilinogen Ur Leukocyte Esterase Urine WBC (Auto) Urine RBC (Auto) Ur Epithelial Cells Urine Bacteria Urine Mucus Active Medications Generic Name Dose Route Start Last Admin Trade Name Jacquelyn PRN Reason Stop Dose Admin Diltiazem HCl 120 mg 03/09/18 10:00 03/09/18 10:53 Cardizem Cd - PO 120 mg DAILY [facility] Administration Furosemide 80 mg 03/08/18 14:45 03/09/18 10:54 Lasix Injection - IVPUSH 80 mg DAILY [facility] Administration Hydralazine HCl 100 mg 03/09/18 10:00 03/09/18 10:53 Apresoline - PO 100 mg BID [facility] Administration Insulin Detemir 20 units 03/08/18 22:00 03/08/18 22:40 Levemir Vial SQ 20 units HS [facility] Administration Isosorbide Mononitrate 60 mg 03/09/18 10:00 03/09/18 10:53 Imdur - PO 60 mg DAILY [facility] Administration Pantoprazole Sodium 40 mg 03/09/18 10:00 03/09/18 10:54 Protonix - PO 40 mg DAILY [facility] Administration Sodium Bicarbonate 650 mg 03/08/18 22:00 03/09/18 10:54 Sodium Bicarbonate - PO 650 mg BID [facility] Administration Warfarin Sodium 7.5 mg 03/09/18 18:00 Coumadin - PO DAILY@1800 [facility] ASSESSMENT/PLAN: Patient is a 77 year old female with history significant for hypertension, diabetes, atrial fibrillation (s/p ablation, on Coumadin), left lower extremity DVT, asthma, COPD presents with complaint of chest pain and shortness of breath. NSTEMI -Currently no chest pain since patient was converted to sinus rhythm. -Troponins -0.79 -> 1.12 -> 0.63 -Troponin elevation secondary to demand ischemia from A. fib vs. secondary to chronic kidney disease. -Cardiology recommendations (Dr. Carrion) appreciated. -ECHO (11/2017) showed LV normal size, EF 60- 65%. Afib -INR supratherapeutic at 3.31 -Will hold Coumadin 7.5mg tonight -Will follow PT/INR. Goal 2-3. DM -Fingerstick blood glucose monitoring ACHS -Insulin sliding scale ACHS Hypertension -Hydralazine 100mg PO BID -Imdur 60mg PO daily -Diltiazem 120mg PO daily -Lasix 80mg IV daily Acute on chronic kidney disease -Creatinine today 3.3, baseline from prior admissions around 3.0 -Will trend Cr FEN -No IV fluids -Follow CMP -Diabetic, sodium, controlled diet Prophylaxis -Patient is on Coumadin 7.5mg PO daily -Pantoprazole 40mg PO daily Disposition -Continue care in telemetry floor. Visit type - Emergency Visit Emergency Visit: Yes ED Registration Date: 03/08/18 Care time: The patient presented to the Emergency Department on the above date and was hospitalized for further evaluation of their emergent condition. - New Patient This patient is new to me today: Yes Date on this admission: 03/09/18 - Critical Care Critical Care patient: No - Discharge Referral Referred to [facility] Med [facility].: No
--- NOTE | 2018-03-09 16:22 | PN ---
Teaching Attending Note Name of Resident: Ibrahima Reilly ATTENDING PHYSICIAN STATEMENT I saw and evaluated the patient. I reviewed the resident's note and discussed the case with the resident. I agree with the resident's findings and plan as documented. SUBJECTIVE: Patient feels SOB. OBJECTIVE: Vital Signs Period Temp Pulse Resp BP Sys/Renee Pulse Ox Last 24 Hr 97.8 F-98.2 F 59-78 18-22 118-173/60-70 98-100 HEART: S1S2, RRR LUNGS: Bibasilar rales ABDOMEN: Soft, non-tender, non-distended, normal BS EXTREMITIES: Trace edema Laboratory Results - last 24 hr 03/08/18 03/08/18 03/09/18 19:05 20:00 03:50 WBC RBC Hgb Hct MCV MCH MCHC RDW Plt Count MPV Absolute Neuts (auto) Neutrophils % Lymphocytes % Monocytes % Eosinophils % Basophils % Nucleated RBC % PT with INR INR Sodium Potassium Chloride Carbon Dioxide Anion Gap BUN Creatinine Creat Clearance w eGFR Random Glucose Calcium Phosphorus Magnesium Total Bilirubin AST ALT Alkaline Phosphatase Troponin I 2.59 H* 1.62 H* Total Protein Albumin Urine Color Ltyellow Urine Appearance Clear Urine pH 5.0 Ur Specific [place] 1.013 Urine Protein 2+ H Urine Glucose (UA) 1+ H D Urine Ketones Negative Urine Blood Negative Urine Nitrite Negative Urine Bilirubin Negative Urine Urobilinogen Negative Ur Leukocyte Esterase Negative Urine WBC (Auto) <1 Urine RBC (Auto) None Ur Epithelial Cells Rare Urine Bacteria Rare Urine Mucus Rare 03/09/18 03/09/18 03/09/18 05:30 05:30 05:30 WBC 4.7 RBC 3.44 L Hgb 10.0 L Hct 31.7 L MCV 92.2 MCH 29.1 MCHC 31.5 L RDW 18.0 H Plt Count 191 MPV 8.9 Absolute Neuts (auto) 2.3 Neutrophils % 47.9 D Lymphocytes % 34.7 D Monocytes % 12.0 H Eosinophils % 3.6 D Basophils % 1.8 Nucleated RBC % 0 PT with INR 39.50 H INR 3.31 H Sodium 142 Potassium 4.2 Chloride 112 H Carbon Dioxide 21 Anion Gap 9 BUN 50 H Creatinine 3.3 H Creat Clearance w eGFR 13.49 Random Glucose 126 H Calcium 7.9 L Phosphorus 4.9 Magnesium 1.6 L Total Bilirubin 0.4 AST 13 L ALT 12 L Alkaline Phosphatase 46 Troponin I Total Protein 5.6 L Albumin 2.8 L Urine Color Urine Appearance Urine pH Ur Specific [place] Urine Protein Urine Glucose (UA) Urine Ketones Urine Blood Urine Nitrite Urine Bilirubin Urine Urobilinogen Ur Leukocyte Esterase Urine WBC (Auto) Urine RBC (Auto) Ur Epithelial Cells Urine Bacteria Urine Mucus Current Medications Generic Name Dose Route Start Last Admin Trade Name Freq PRN Reason Stop Dose Admin Diltiazem HCl 120 mg 03/09/18 10:00 03/09/18 10:53 Cardizem Cd - PO 120 mg DAILY [facility] Administration Furosemide 80 mg 03/08/18 14:45 03/09/18 10:54 Lasix Injection - IVPUSH 80 mg DAILY [facility] Administration Hydralazine HCl 100 mg 03/09/18 10:00 03/09/18 10:53 Apresoline - PO 100 mg BID [facility] Administration Insulin Detemir 20 units 03/08/18 22:00 03/08/18 22:40 Levemir Vial SQ 20 units HS [facility] Administration Isosorbide Mononitrate 60 mg 03/09/18 10:00 03/09/18 10:53 Imdur - PO 60 mg DAILY [facility] Administration Pantoprazole Sodium 40 mg 03/09/18 10:00 03/09/18 10:54 Protonix - PO 40 mg DAILY [facility] Administration Sodium Bicarbonate 650 mg 03/08/18 22:00 03/09/18 10:54 Sodium Bicarbonate - PO 650 mg BID [facility] Administration Warfarin Sodium 7.5 mg 03/10/18 18:00 Coumadin - PO DAILY@1800 [facility] ASSESSMENT AND PLAN: This is a 77 year old woman with a history of HTN, hyperlipidemia, PAD, atrial fibrillation, ablation, chronic diastolic heart failure, stage 4 CKD, LLE DVT, asthma, COPD, GERD, depression who presented to the ED with chest pain, shortness of breath, and vomiting. 1. Atrial fibrillation, paroxysmal, with RVR - Remains in SR - Continue Cardizem CD, Coumadin 2. Demand ischemia secondary to rapid a fib, acute CHF - Had negative nuclear stress 04/2017 3. HTN - Continue Cardizem, Hydralazine, Lasix 4. Hyperlipidemia 5. Stage 4 CKD 6. Type 2 DM - Continue Levemir 7. GERD - Continue Protonix 8. Acute on chronic diastolic heart failure - Continue Lasix IV - Monitor weight, I&O 9. Asthma, COPD - Stable 10. Depression - Stable 11. PAD
[2018-03-09] MEDS ORDERED: WARFARIN NA 7.5 MG TABLET (FP) PO SCH (18:00)
[2018-03-09] MEDS: INSULIN (LEVEMIR) 100 UNITS/ML UNITS SQ SCH (21:13)
[2018-03-10] MEDS ORDERED: ALBUTEROL SO4 2.5/IPRATROPIUM 0.5 INH SOL 3 ML VIAL.NEB. NEB ONE (00:48)
[2018-03-10] MEDS: ALBUTEROL SO4 2.5/IPRATROPIUM 0.5 INH SOL 3 ML VIAL.NEB. NEB PRN ×2 (00:50→11:40)
[2018-03-10 07:41] LABS: HEMATOCRIT 28.8 % (32.4-45.2); HEMOGLOBIN 9.1 GM/dL (10.7-15.3); MCH 29.2 pg (25.7-33.7); MCHC 31.6 g/dl (32.0-36.0); MEAN CELL VOLUME 92.4 fl (80-96); MEAN PLT VOLUME 9.1 fl (7.5-11.1); PLATELET COUNT 179 K/MM3 (134-434); RBC 3.12 M/mm3 (3.60-5.2); RDW 17.5 % (11.6-15.6); WHITE BLOOD COUNT 5.8 K/mm3 (4.0-10.0)
[2018-03-10 08:12] LABS: ALBUMIN 2.7 g/dl (3.4-5.0); ALK PHOS 40 U/L (45-117); ANION GAP 11 MMOL/L (8-16); BILIRUBIN,TOTAL 0.3 mg/dL (0.2-1); BLOOD UREA NITROGEN 58 mg/dL (7-18); CALCIUM 7.3 mg/dL (8.5-10.1); CHLORIDE 109 mmol/L (98-107); CO2 21 mmol/L (21-32); CREATININE 3.7 mg/dL (0.55-1.3); GLUCOSE,RANDOM 107 mg/dL (74-106); POTASSIUM 3.7 mmol/L (3.5-5.1); SGOT/AST 10 U/L (15-37); SGPT/ALT 8 U/L (13-61); SODIUM 141 mmol/L (136-145); TOT PROT 5.3 g/dl (6.4-8.2)
[2018-03-10 08:14] LABS: INR 1.83 (0.83-1.09); PROTHROMBIN TIME (PATIENT) 21.7 SEC (9.7-13.0)
[2018-03-10] MEDS: ISOSORBIDE MONONITRATE 60 MG TAB.SR.24H (FP) PO SCH (09:55)
[2018-03-10] MEDS: SODIUM BICARBONATE 650 MG TABLET PO SCH ×2 (09:55→21:41)
[2018-03-10] MEDS: PANTOPRAZOLE 40 MG TABLET (FP) PO SCH (09:55)
[2018-03-10] MEDS: FUROSEMIDE 40 MG/4 ML INJECTABLE VIAL IVPUSH SCH (09:55)
[2018-03-10] MEDS: hydrALAZINE HCL 50 MG TABLET (FP) PO SCH ×2 (09:55→21:41)
--- NOTE | 2018-03-10 14:01 | PN ---
Progress Note, Physician Chief Complaint: still sob tele nsr. History of Present Illness: 77 year old woman with a history of hypertension, hyperlipidemia, heavy smoking , PAD with claudication, diabetes type II, atrial flutter status post ablation several years ago, followed by paroxysmal atrial fibrillation more recently, DVT 2015, remains on full AC for Afib, CKD, severe depression, chronic fatigue, chronic dyspnea on exertion of unclear etiology, multiple admissions for sob/ hypoxia with clear lungs and clear lung imaging, recent outpatient V/Q showing low prob PE, with ventilation worse than perfusion, has been seen by multiple pulmonologists, has not improved with bronchodilators or inhaled corticosteroids , h/o R heart cath at [facility] years ago showing no sig pulm htn as per pt.?? Admisson [facility] 04/2017 with elevated troponin but nuclear stress test showed no ischemia and echo showed normal LV systolic function. Never had LH due to CKD. Again admitted to [facility] 12/14/17 with chest pain and sob, elevated troponins up to 3's with normal CK level, normal LV systolic function on echo again. She presented today with sob, af with RVR converted to NSR. Echo 12/14/2017: Normal LV size, wall motion, no regional wall motion abnormality. LVEF = 60%. Normal RV. Normal LA/RA in size. Mild AI/MR/TR. LOLLY nuclear stress test 05/26/17 [facility] No ischemia or Infarct LVEF 46% V/Q scan 07/31/17-low prob PE, large airway or parenchymal disease with worse ventilation than perfusion - Current Medication List Current Medications: Active Medications Albuterol/Ipratropium (Duoneb -) 1 amp NEB Q6H PRN PRN Reason: SHORTNESS OF BREATH Last Admin: 03/10/18 00:50 Dose: 1 amp Diltiazem HCl (Cardizem Cd -) 120 mg PO DAILY [facility] Last Admin: 03/10/18 09:54 Dose: 120 mg Furosemide (Lasix Injection -) 80 mg IVPUSH DAILY [facility] Last Admin: 03/10/18 09:55 Dose: 80 mg Hydralazine HCl (Apresoline -) 100 mg PO BID [facility] Last Admin: 03/10/18 09:55 Dose: 100 mg Insulin Detemir (Levemir Vial) 20 units SQ HS [facility] Last Admin: 03/09/18 21:13 Dose: 20 units Isosorbide Mononitrate (Imdur -) 60 mg PO DAILY [facility] Last Admin: 03/10/18 09:55 Dose: 60 mg Pantoprazole Sodium (Protonix -) 40 mg PO DAILY [facility] Last Admin: 03/10/18 09:55 Dose: 40 mg Sodium Bicarbonate (Sodium Bicarbonate -) 650 mg PO BID [facility] Last Admin: 03/10/18 09:55 Dose: 650 mg Warfarin Sodium (Coumadin -) 7.5 mg PO DAILY@1800 [facility] - Objective Vital Signs: Vital Signs Temperature 98.1 F 03/10/18 10:00 Pulse Rate 72 03/10/18 10:00 Respiratory Rate 20 03/10/18 10:00 Blood Pressure 118/50 L 03/10/18 10:00 O2 Sat by Pulse Oximetry (%) 99 03/10/18 09:00 Constitutional: Yes: No Distress, Calm Eyes: Yes: EOM Intact HENT: Yes: Normocephalic Neck: Yes: Trachea Midline Cardiovascular: Yes: Regular Rate and Rhythm Respiratory: Yes: CTA Bilaterally Gastrointestinal: Yes: Normal Bowel Sounds, Soft Musculoskeletal: Yes: WNL Extremities: Yes: WNL Edema: No Peripheral Pulses WNL: Yes Labs: CBC, BMP 03/10/18 05:30 03/10/18 05:30 INR, PTT INR 1.83 (0.83-1.09) H 03/10/18 05:30 Assessment/Plan 77 year old woman with a history of hypertension, hyperlipidemia, heavy smoking , PAD with claudication, diabetes type II, atrial flutter status post ablation several years ago, followed by paroxysmal atrial fibrillation more recently, DVT 2015, remains on full AC for Afib, CKD, severe depression, chronic fatigue, chronic dyspnea on exertion of unclear etiology, multiple admissions for sob/ hypoxia with clear lungs and clear lung imaging, recent outpatient V/Q showing low prob PE, with ventilation worse than perfusion, has been seen by multiple pulmonologists, has not improved with bronchodilators or inhaled corticosteroids , h/o R heart cath at [facility] years ago showing no sig pulm htn as per pt.?? Admisson [facility] 04/2017 with elevated troponin but nuclear stress test showed no ischemia and echo showed normal LV systolic function. Never had [facility] due to CKD. Again admitted to [facility] 12/14/17 with chest pain and sob, elevated troponins up to 3's with normal CK level, normal LV systolic function on echo again. She presented today with sob, af with RVR converted to NSR. --continue current medications --Continue diltiazem CD 120 mg daily --Change lasix to 80 mg PO daily. --no need for ischemia workup, not a candidate due to CKD. Troponin is nonischemic pattern, chronic due to CKD. --No need for repeat echo. --Daily wts, fluid restriction. --needs pulmonary evaluation. CHF is improved and her symptoms are unchanged. --Call us with questions.
--- NOTE | 2018-03-10 14:39 | PN ---
Physical Exam: SUBJECTIVE: Patient seen and examined at bedside. She denies chest pain, or palpitations overnight. However, she endorses significant shortness of breath with minimal exertion. Denies fevers, chills. OBJECTIVE: Vital Signs Period Temp Pulse Resp BP Sys/Renee Pulse Ox Last 24 Hr 97.5 F-98.8 F 70-82 20-20 118-155/50-61 99-99 GENERAL: Awake, alert, and fully oriented. She is on 2L nasal canula, short of breath with speaking and sitting up for physical exam. HEAD: Normal with no signs of trauma. EYES: Pupils equal, round and reactive to light, extraocular movements intact without nystagmus b/l. Sclera anicteric, conjunctiva clear b/l. EARS, NOSE, THROAT: Oropharynx clear without exudates. Moist mucous membranes. NECK: Supple without lymphadenopathy. No JVD appreciated. LUNGS: Good inspiratory effort and air entry b/l. Faint expiratory wheezes auscultated B/L. Patient is not using accessory muscles of respiration HEART: Regular rate and rhythm. Normal S1 and S2 without murmur, rub or gallop. ABDOMEN: Soft, nontender, not distended. Normoactive bowel sounds X4 quadrants. No guarding, no rebound tenderness. No hepatomegaly appreciated. MUSCULOSKELETAL: Normal range of motion at all joints. No bony deformities or tenderness. Strength 4/5 b/l upper and lower extremities. UPPER EXTREMITIES: 2+ radial pulses b/l, warm, well-perfused. No cyanosis noted. LOWER EXTREMITIES: 2+ dorsalis pulses b/l, warm, well-perfused. No calf tenderness b/l. Trace peripheral lower extremity pitting edema b/l. NEUROLOGICAL: Cranial nerves II-XII intact. Normal speech. No gross focal deficits. PSYCHIATRIC: Cooperative. Appropriate mood and affect upon my encounter today. SKIN: Warm, dry, no rashes or lesions noted. Laboratory Results - last 24 hr 03/09/18 03/09/18 03/10/18 17:10 21:11 05:01 WBC RBC Hgb Hct MCV MCH MCHC RDW Plt Count MPV PT with INR INR Sodium Potassium Chloride Carbon Dioxide Anion Gap BUN Creatinine Creat Clearance w eGFR POC Glucometer 204 190 136 Random Glucose Calcium Total Bilirubin AST ALT Alkaline Phosphatase Total Protein Albumin 03/10/18 03/10/18 03/10/18 05:30 05:30 05:30 WBC 5.8 RBC 3.12 L Hgb 9.1 L Hct 28.8 L MCV 92.4 MCH 29.2 MCHC 31.6 L RDW 17.5 H Plt Count 179 MPV 9.1 PT with INR 21.70 H INR 1.83 H Sodium 141 Potassium 3.7 Chloride 109 H Carbon Dioxide 21 Anion Gap 11 BUN 58 H Creatinine 3.7 H Creat Clearance w eGFR 11.82 POC Glucometer Random Glucose 107 H Calcium 7.3 L Total Bilirubin 0.3 AST 10 L ALT 8 L Alkaline Phosphatase 40 L Total Protein 5.3 L Albumin 2.7 L 03/10/18 11:13 WBC RBC Hgb Hct MCV MCH MCHC RDW Plt Count MPV PT with INR INR Sodium Potassium Chloride Carbon Dioxide Anion Gap BUN Creatinine Creat Clearance w eGFR POC Glucometer 174 Random Glucose Calcium Total Bilirubin AST ALT Alkaline Phosphatase Total Protein Albumin Active Medications Generic Name Dose Route Start Last Admin Trade Name Freq PRN Reason Stop Dose Admin Albuterol/Ipratropium 1 amp 03/10/18 00:46 03/10/18 00:50 Duoneb - NEB 1 amp Q6H PRN Administration SHORTNESS OF BREATH Diltiazem HCl 120 mg 03/09/18 10:00 03/10/18 09:54 Cardizem Cd - PO 120 mg DAILY [facility] Administration Furosemide 80 mg 03/11/18 10:00 Lasix - PO DAILY [facility] Hydralazine HCl 100 mg 03/09/18 10:00 03/10/18 09:55 Apresoline - PO 100 mg BID [facility] Administration Insulin Detemir 20 units 03/08/18 22:00 03/09/18 21:13 Levemir Vial SQ 20 units HS [facility] Administration Isosorbide Mononitrate 60 mg 03/09/18 10:00 03/10/18 09:55 Imdur - PO 60 mg DAILY [facility] Administration Pantoprazole Sodium 40 mg 03/09/18 10:00 03/10/18 09:55 Protonix - PO 40 mg DAILY [facility] Administration Sodium Bicarbonate 650 mg 03/08/18 22:00 03/10/18 09:55 Sodium Bicarbonate - PO 650 mg BID [facility] Administration Warfarin Sodium 5 mg 03/10/18 18:00 Coumadin - PO DAILY@1800 [facility] ASSESSMENT/PLAN: Patient is a 77 year old female with history significant for hypertension, diabetes, atrial fibrillation (s/p ablation, on Coumadin), left lower extremity DVT, asthma, COPD presents with complaint of chest pain and shortness of breath. Shortness of breath -Unclear if pulmonary etiology vs. CHF exacerbation. Patient is diuresing well with lasix. Will follow her daily weights. -Currently on nasal canula 2L. Maintain oxygen saturation greater than 90%. -Duonebs 1 amp Q6H PRN -Follow pulmonology consult (Dr. Ramires) -Daily weights, strict intake and output. NSTEMI -Currently no chest pain since patient was converted to sinus rhythm. -Troponins -0.79 -> 1.12 -> 0.63 -Troponin elevation secondary to demand ischemia from A. fib vs. secondary to chronic kidney disease. -ECHO (11/2017) showed LV normal size, EF 60- 65%. -Cardiology recommendations (Dr. Carrion) appreciated. Will discontinue telemetry monitoring. Afib -INR sub-therapeutic at 1.83 -Will redose Coumadin 5mg tonight -Will follow PT/INR. Goal 2-3. Diabtes mellitus -Fingerstick blood glucose monitoring ACHS -Insulin sliding scale ACHS -Insulin 20u subq QHS Hypertension -Hydralazine 100mg PO BID -Imdur 60mg PO daily -Diltiazem 120mg PO daily -Lasix 80mg PO daily Acute on chronic kidney disease -Creatinine today 3.7, baseline from prior admissions around 3.0 -Will trend Cr Constipation -Patient endorses no bowel movements since hospital admission. -Miralax 17gram PO daily FEN -No IV fluids -Follow CMP -Diabetic, sodium, controlled diet Prophylaxis -Patient is on Coumadin 5mg PO daily -Pantoprazole 40mg PO daily Disposition -Continue care in medical-surgical floor. Visit type - Emergency Visit Emergency Visit: Yes ED Registration Date: 03/08/18 Care time: The patient presented to the Emergency Department on the above date and was hospitalized for further evaluation of their emergent condition. - New Patient This patient is new to me today: No - Critical Care Critical Care patient: No - Discharge Referral Referred to [facility] Med P.C.: No
--- NOTE | 2018-03-10 15:10 | CON.PULM ---
Consult Consult Specialty:: PULMONARY Referred by:: Dr. Arroyo Reason for Consultation:: shortness of breath - History of Present Illness Chief Complaint: chest pain History of Present Illness: 77yo female with h/o HTN, DM, hyperlipidemia, PAD, paroxysmal atrial fibrillation on anticoagulation, CKD who was admitted with chest pain and shortness of breath. Presentation similar to prior admissions. Reports a nonproductive cough without wheezing. No fevers, chills or sweats. Has had an extensive work up for her dyspnea including PFTs which showed mild obstructive airways, mild restrictive disease with normal diffusing capacity, V/Q scan which showed low probability for PE, RHC with mild pulmonary HTN. Found to have elevated troponins similar to recent prior admissions. - History Source History Provided By: Patient, Medical Record Limitations to Obtaining History: No Limitations - Past Medical History [employer]: Yes: Peripheral Neuropathy Cardio/Vascular: Yes: AFIB, CHF, HTN, Hyperlipdemia, Other (Atrial flutter s/p ablation, PAD) Pulmonary: Yes: COPD Renal/: Yes: Renal Inusuff (stage 4), Other (Overactive Bladder) ...: No Psych: Yes: Depression Endocrine: Yes: Diabetes Mellitus (initially on oral agents, now on insulin) - Past Surgical History Past Surgical History: Yes: Colonoscopy (polyps a few years ago), Hysterectomy ( fibroids), Tubal Ligation, Upper Endoscopy (neg 1+ yrs ago) - Alcohol/Substance Use Hx Alcohol Use: No - Smoking History Smoking history: Former smoker Have you smoked in the past 12 months: No Aproximately how many cigarettes per day: 1 If you are a former smoker, when did you quit?: 1 year ago - Social History Usual Living Arrangement: With Child ADL: Family Assistance History of Recent Travel: No Home Medications - Allergies Allergies/Adverse Reactions: Allergies Allergy/AdvReac Type Severity Reaction Status Date / Time No Known Allergies Allergy Verified 03/09/18 01:17 - Home Medications Home Medications: Ambulatory Orders hydrALAZINE HCL [Apresoline -] 100 mg PO Q8H 01/28/17 Ferrous Sulfate 325 mg PO BID 02/02/17 Folic Acid 1 mg PO DAILY 12/09/17 Isosorbide Mononitrate [Isosorbide Mononitrate ER] 60 mg PO DAILY 12/09/17 Pantoprazole Sodium 40 mg PO DAILY 12/09/17 Sodium Bicarbonate - 650 mg PO BID #40 tablet 12/11/17 Insulin (Levemir) [Levemir Vial] 20 units SQ HS 12/14/17 Ascorbic Acid [Vitamin C] 1,000 mg PO DAILY 03/08/18 Furosemide 40 mg PO DAILY 03/08/18 Warfarin Sodium [Coumadin] 7.5 mg PO DAILY 03/09/18 Budesonide/Formeterol Fumarate [SYMBICORT 160/4.5mcg -] 1 puff PO DAILY Nifedipine [Nifedipine ER] 60 mg PO DAILY 03/10/18 Tolterodine Tartrate [Detrol -] 2 mg PO BID 03/10/18 Warfarin Sodium 2 mg PO DAILY 03/10/18 Family Disease History - Family Disease History Family Disease History: Diabetes: Grandparent, Mother, Sister (lung cancer), CA : Sister Review of Systems - Review of Systems Constitutional: reports: Weakness. denies: Chills, Fever Eyes: denies: Recent Change in Vision HENT: denies: Nasal Congestion, Throat Pain Neck: denies: Stiffness, Tenderness Cardiovascular: reports: Chest Pain, Shortness of Breath. denies: Edema, Palpitations Respiratory: reports: Cough. denies: Hemoptysis, Wheezing Gastrointestinal: denies: Abdominal Pain, Nausea, Vomiting Genitourinary: denies: Dysuria, Hematuria Neurological: denies: Dizziness, Headache Endocrine: denies: Unexplained Weight Loss Physical Exam Vital Sings: Vital Signs Temperature 98.1 F 03/10/18 10:00 Pulse Rate 72 03/10/18 10:00 Respiratory Rate 20 03/10/18 10:00 Blood Pressure 118/50 L 03/10/18 10:00 O2 Sat by Pulse Oximetry (%) 99 03/10/18 09:00 Constitutional: Yes: Mild Distress (tachypneic with speaking) Eyes: Yes: Conjunctiva Clear, EOM Intact HENT: Yes: Atraumatic, Normocephalic Neck: Yes: Supple, Trachea Midline Cardiovascular: Yes: Regular Rate and Rhythm Respiratory: Yes: Diminished (decreased breath sounds at the bases) ...Clubbing: No Gastrointestinal: Yes: Normal Bowel Sounds, Soft. No: Tenderness Edema: No Neurological: Yes: Alert, Oriented Labs: CBC, BMP 03/10/18 05:30 03/10/18 05:30 Imaging - Results Chest X-ray: Report Reviewed, Image Reviewed (mild pulmonary vascular congestion ) Problem List - Problems (1) CAD (coronary artery disease) Code(s): I25.10 - ATHSCL HEART DISEASE OF [place] CORONARY ARTERY W/O ANG PCTRS (2) Troponin I above reference range Code(s): R74.8 - ABNORMAL LEVELS OF OTHER SERUM ENZYMES (3) Afib Code(s): I48.91 - UNSPECIFIED ATRIAL FIBRILLATION Qualifiers: Atrial fibrillation type: unspecified Qualified Code(s): I48.91 - Unspecified atrial fibrillation (4) CKD (chronic kidney disease) Code(s): N18.9 - CHRONIC KIDNEY DISEASE, UNSPECIFIED (5) COPD (chronic obstructive pulmonary disease) Code(s): J44.9 - CHRONIC OBSTRUCTIVE PULMONARY DISEASE, UNSPECIFIED Qualifiers: COPD type: chronic bronchitis (6) Diastolic CHF Code(s): I50.30 - UNSPECIFIED DIASTOLIC (CONGESTIVE) HEART FAILURE Qualifiers: Heart failure chronicity: chronic Qualified Code(s): I50.32 - Chronic diastolic (congestive) heart failure (7) IDDM (insulin dependent diabetes mellitus) Code(s): E11.9 - TYPE 2 DIABETES MELLITUS WITHOUT COMPLICATIONS; Z79.4 - IRONER HAND (CURRENT) USE OF INSULIN (8) Hypertension Code(s): I10 - ESSENTIAL (PRIMARY) HYPERTENSION Qualifiers: Hypertension type: essential hypertension Qualified Code(s): I10 - Essential (primary) hypertension (9) Pulmonary hypertension Code(s): I27.2 - OTHER SECONDARY PULMONARY HYPERTENSION * DO NOT USE * Assessment/Plan Shortness of Breath likely Multifactorial CAD +Troponins LV Diastolic Dysfunction Pulmonary HTN Paroxysmal Atrial Fibrillation CKD HTN DM Hyperlipidemia - pt with an acute presentation of chronic symptoms, has undergone extensive cardiopulmonary testing aside from left heart catheterization due to her CKD - despite her smoking history, her pulmonary function tests show only mild obstructive airways and mild restrictive disease with normal diffusing capacity - chest imaging is always unremarkable and outpt V/Q scan with low probability of PE and she is on anticoagulation anyway for her atrial fibrillation - right heart catheterization with mildly elevated pressures but out of proportion to her dyspnea - no improvement with steroids and bronchodilators, does not become hypoxic despite severity of symptoms - suspect that her symptoms are an anginal equivalent but unable to perform cardiac catheterization without an acceptable risk of HD - continue current medical management, consider adding beta kath while inpatient and observe Thank you for this consult Chaz Ramires MD
[2018-03-10] MEDS: POLYETHYLENE GLYCOL 3350 119 GM BTL PO SCH (15:18)
[2018-03-10] MEDS ORDERED: WARFARIN NA 5 MG TABLET (UD) PO SCH (18:00)
[2018-03-10] MEDS ORDERED: WARFARIN NA 7.5 MG TABLET (FP) PO SCH (18:00)
--- NOTE | 2018-03-10 18:47 | PN ---
Teaching Attending Note Name of Resident: Ibrahima Reilly ATTENDING PHYSICIAN STATEMENT I saw and evaluated the patient. I reviewed the resident's note and discussed the case with the resident. I agree with the resident's findings and plan as documented. SUBJECTIVE: Patient feels SOB at rest. OBJECTIVE: Vital Signs Period Temp Pulse Resp BP Sys/Renee Pulse Ox Last 24 Hr 97.8 F-98.8 F 70-80 20-20 118-155/50-58 99-99 HEART: S1S2, RRR LUNGS: Clear ABDOMEN: Soft, non-tender, non-distended, normal BS EXTREMITIES: No edema Laboratory Results - last 24 hr 03/09/18 03/10/18 03/10/18 21:11 05:01 05:30 WBC 5.8 RBC 3.12 L Hgb 9.1 L Hct 28.8 L MCV 92.4 MCH 29.2 MCHC 31.6 L RDW 17.5 H Plt Count 179 MPV 9.1 PT with INR INR Sodium Potassium Chloride Carbon Dioxide Anion Gap BUN Creatinine Creat Clearance w eGFR POC Glucometer 190 136 Random Glucose Calcium Total Bilirubin AST ALT Alkaline Phosphatase Total Protein Albumin 03/10/18 03/10/18 03/10/18 05:30 05:30 11:13 WBC RBC Hgb Hct MCV MCH MCHC RDW Plt Count MPV PT with INR 21.70 H INR 1.83 H Sodium 141 Potassium 3.7 Chloride 109 H Carbon Dioxide 21 Anion Gap 11 BUN 58 H Creatinine 3.7 H Creat Clearance w eGFR 11.82 POC Glucometer 174 Random Glucose 107 H Calcium 7.3 L Total Bilirubin 0.3 AST 10 L ALT 8 L Alkaline Phosphatase 40 L Total Protein 5.3 L Albumin 2.7 L 03/10/18 16:45 WBC RBC Hgb Hct MCV MCH MCHC RDW Plt Count MPV PT with INR INR Sodium Potassium Chloride Carbon Dioxide Anion Gap BUN Creatinine Creat Clearance w eGFR POC Glucometer 355 Random Glucose Calcium Total Bilirubin AST ALT Alkaline Phosphatase Total Protein Albumin Current Medications Generic Name Dose Route Start Last Admin Trade Name Freq PRN Reason Stop Dose Admin Albuterol/Ipratropium 1 amp 03/10/18 00:46 03/10/18 11:40 Duoneb - NEB 1 amp Q6H PRN Administration SHORTNESS OF BREATH Diltiazem HCl 120 mg 03/09/18 10:00 03/10/18 09:54 Cardizem Cd - PO 120 mg DAILY [facility] Administration Furosemide 80 mg 03/11/18 10:00 Lasix - PO DAILY [facility] Hydralazine HCl 100 mg 03/09/18 10:00 03/10/18 09:55 Apresoline - PO 100 mg BID [facility] Administration Insulin Aspart 1 vial 03/10/18 22:00 Novolog Vial Sliding Scale - SQ ACHS [facility] Protocol Insulin Detemir 20 units 03/08/18 22:00 03/09/18 21:13 Levemir Vial SQ 20 units HS [facility] Administration Isosorbide Mononitrate 60 mg 03/09/18 10:00 03/10/18 09:55 Imdur - PO 60 mg DAILY [facility] Administration Pantoprazole Sodium 40 mg 03/09/18 10:00 03/10/18 09:55 Protonix - PO 40 mg DAILY [facility] Administration Polyethylene Glycol 17 gm 03/10/18 14:45 03/10/18 15:18 Miralax (For Daily Use) - PO 17 grams DAILY [facility] Administration Sodium Bicarbonate 650 mg 03/08/18 22:00 03/10/18 09:55 Sodium Bicarbonate - PO 650 mg BID [facility] Administration Warfarin Sodium 5 mg 03/10/18 18:00 03/10/18 17:55 Coumadin - PO 5 mg DAILY@1800 [facility] Administration ASSESSMENT AND PLAN: This is a 77 year old woman with a history of HTN, hyperlipidemia, PAD, atrial fibrillation, ablation, chronic diastolic heart failure, stage 4 CKD, LLE DVT, asthma, COPD, GERD, depression who presented to the ED with chest pain, shortness of breath, and vomiting. 1. Atrial fibrillation, paroxysmal, with RVR - Remains in SR - Continue Cardizem CD, Coumadin 2. Demand ischemia secondary to rapid a fib, acute CHF - Had negative nuclear stress 04/2017 3. Dyspnea - Thought to be secondary to cardiac ischemia superimposed on pulm HTN, asthma, COPD, diastolic heart failure - Continue current management - Cardiac cath not able to be done secondary to CKD - Continue Imdur - Add aspirin, Toprol XL, Lipitor 4. HTN - Continue Cardizem, Hydralazine, Lasix 5. Hyperlipidemia 6. Stage 4 CKD 7. Type 2 DM - Continue Levemir, Novolog sliding scale 8. GERD - Continue Protonix 9. Acute on chronic diastolic heart failure - Continue Lasix - change to PO - Monitor weight, I&O 10. Asthma, COPD - Stable 11. Depression - Stable 12. PAD
[2018-03-10] MEDS: INSULIN (LEVEMIR) 100 UNITS/ML UNITS SQ SCH (21:43)
[2018-03-10] MEDS: INSULIN SLIDING SCALE (NOVOLOG) 1 VIAL SQ SCH (21:44)
[2018-03-11] MEDS: INSULIN SLIDING SCALE (NOVOLOG) 1 VIAL SQ SCH ×3 (06:37→18:02)
[2018-03-11 07:43] LABS: HEMATOCRIT 30.5 % (32.4-45.2); HEMOGLOBIN 9.6 GM/dL (10.7-15.3); MCH 29.3 pg (25.7-33.7); MCHC 31.5 g/dl (32.0-36.0); MEAN PLT VOLUME 9.2 fl (7.5-11.1); PLATELET COUNT 180 K/MM3 (134-434); RBC 3.28 M/mm3 (3.60-5.2); RDW 17.8 % (11.6-15.6); WHITE BLOOD COUNT 6.5 K/mm3 (4.0-10.0)
[2018-03-11 07:50] LABS: INR 1.42 (0.83-1.09); PROTHROMBIN TIME (PATIENT) 16.8 SEC (9.7-13.0)
[2018-03-11 07:58] LABS: ALBUMIN 2.9 g/dl (3.4-5.0); ALK PHOS 42 U/L (45-117); ANION GAP 9 MMOL/L (8-16); BILIRUBIN,TOTAL 0.5 mg/dL (0.2-1); BLOOD UREA NITROGEN 58 mg/dL (7-18); CALCIUM 7.4 mg/dL (8.5-10.1); CHLORIDE 109 mmol/L (98-107); CO2 21 mmol/L (21-32); CREATININE 3.6 mg/dL (0.55-1.3); GLUCOSE,RANDOM 93 mg/dL (74-106); POTASSIUM 4.1 mmol/L (3.5-5.1); SGOT/AST 10 U/L (15-37); SGPT/ALT 9 U/L (13-61); SODIUM 140 mmol/L (136-145); TOT PROT 5.6 g/dl (6.4-8.2)
[2018-03-11] MEDS: SODIUM BICARBONATE 650 MG TABLET PO SCH (09:18)
[2018-03-11] MEDS: ISOSORBIDE MONONITRATE 60 MG TAB.SR.24H (FP) PO SCH (09:18)
[2018-03-11] MEDS: hydrALAZINE HCL 50 MG TABLET (FP) PO SCH (09:18)
[2018-03-11] MEDS: PANTOPRAZOLE 40 MG TABLET (FP) PO SCH (09:18)
[2018-03-11] MEDS: POLYETHYLENE GLYCOL 3350 119 GM BTL PO SCH (09:19)
[2018-03-11] MEDS ORDERED: FUROSEMIDE 40 MG TABLET (FP) PO SCH (10:00)
--- NOTE | 2018-03-11 12:33 | PN ---
Progress Note (short form) - Note Progress Note: Breathing feels a little better today. No acute events overnight. Intake & Output 03/08/18 03/09/18 03/10/18 03/11/18 23:59 23:59 23:59 23:59 Intake Total 560 1440 160 Output Total 1000 1000 200 Balance -440 440 -40 Weight 198 lb 198 lb 195 lb 194 lb 3.2 oz Last Vital Signs Temp Pulse Resp BP Pulse Ox 98.5 F 76 22 H 162/71 100 03/11/18 10:00 03/11/18 10:00 03/11/18 10:00 03/11/18 10:00 03/11/18 09:00 Active Medications Albuterol/Ipratropium (Duoneb -) 1 amp NEB Q6H PRN PRN Reason: SHORTNESS OF BREATH Last Admin: 03/10/18 11:40 Dose: 1 amp Diltiazem HCl (Cardizem Cd -) 120 mg PO DAILY [facility] Last Admin: 03/11/18 09:18 Dose: 120 mg Furosemide (Lasix -) 80 mg PO DAILY [facility] Last Admin: 03/11/18 09:18 Dose: 80 mg Hydralazine HCl (Apresoline -) 100 mg PO BID [facility] Last Admin: 03/11/18 09:18 Dose: 100 mg Insulin Aspart (Novolog Vial Sliding Scale -) 1 vial SQ [facility]; Protocol Last Admin: 03/11/18 11:04 Dose: Not Given Insulin Detemir (Levemir Vial) 20 units SQ [facility] Last Admin: 03/10/18 21:43 Dose: 20 units Isosorbide Mononitrate (Imdur -) 60 mg PO DAILY [facility] Last Admin: 03/11/18 09:18 Dose: 60 mg Pantoprazole Sodium (Protonix -) 40 mg PO DAILY [facility] Last Admin: 03/11/18 09:18 Dose: 40 mg Polyethylene Glycol (Miralax (For Daily Use) -) 17 gm PO DAILY [facility] Last Admin: 03/11/18 09:19 Dose: 17 grams Sodium Bicarbonate (Sodium Bicarbonate -) 650 mg PO BID [facility] Last Admin: 03/11/18 09:18 Dose: 650 mg Warfarin Sodium (Coumadin -) 7.5 mg PO DAILY@1800 [facility] Constitutional: Yes: Awake and alert, NAD Eyes: Yes: Conjunctiva Clear, EOM Intact HENT: Yes: Atraumatic, Normocephalic Neck: Yes: Supple, Trachea Midline Cardiovascular: Yes: Regular Rate and Rhythm Respiratory: Yes: Diminished breath sounds at the bases ...Clubbing: No Gastrointestinal: Yes: Normal Bowel Sounds, Soft. No: Tenderness Edema: No Neurological: Yes: Alert, Oriented Labs: Laboratory Results - last 24 hr 03/10/18 03/10/18 03/11/18 16:45 21:40 05:16 WBC RBC Hgb Hct MCV MCH MCHC RDW Plt Count MPV PT with INR INR Sodium Potassium Chloride Carbon Dioxide Anion Gap BUN Creatinine Creat Clearance w eGFR POC Glucometer 355 303 102 Random Glucose Calcium Total Bilirubin AST ALT Alkaline Phosphatase Total Protein Albumin 03/11/18 03/11/18 03/11/18 05:45 05:45 05:45 WBC 6.5 RBC 3.28 L Hgb 9.6 L Hct 30.5 L MCV 93.0 MCH 29.3 MCHC 31.5 L RDW 17.8 H Plt Count 180 MPV 9.2 PT with INR 16.80 H INR 1.42 H Sodium 140 Potassium 4.1 Chloride 109 H Carbon Dioxide 21 Anion Gap 9 BUN 58 H Creatinine 3.6 H Creat Clearance w eGFR 12.20 POC Glucometer Random Glucose 93 Calcium 7.4 L Total Bilirubin 0.5 AST 10 L ALT 9 L Alkaline Phosphatase 42 L Total Protein 5.6 L Albumin 2.9 L 03/11/18 11:01 WBC RBC Hgb Hct MCV MCH MCHC RDW Plt Count MPV PT with INR INR Sodium Potassium Chloride Carbon Dioxide Anion Gap BUN Creatinine Creat Clearance w eGFR POC Glucometer 146 Random Glucose Calcium Total Bilirubin AST ALT Alkaline Phosphatase Total Protein Albumin Problem List - Problems (1) CAD (coronary artery disease) Code(s): I25.10 - ATHSCL HEART DISEASE OF [place] CORONARY ARTERY W/O ANG PCTRS (2) Troponin I above reference range Code(s): R74.8 - ABNORMAL LEVELS OF OTHER SERUM ENZYMES (3) Afib Code(s): I48.91 - UNSPECIFIED ATRIAL FIBRILLATION Qualifiers: Atrial fibrillation type: unspecified Qualified Code(s): I48.91 - Unspecified atrial fibrillation (4) CKD (chronic kidney disease) Code(s): N18.9 - CHRONIC KIDNEY DISEASE, UNSPECIFIED (5) COPD (chronic obstructive pulmonary disease) Code(s): J44.9 - CHRONIC OBSTRUCTIVE PULMONARY DISEASE, UNSPECIFIED Qualifiers: COPD type: chronic bronchitis (6) Diastolic CHF Code(s): I50.30 - UNSPECIFIED DIASTOLIC (CONGESTIVE) HEART FAILURE Qualifiers: Heart failure chronicity: chronic Qualified Code(s): I50.32 - Chronic diastolic (congestive) heart failure (7) IDDM (insulin dependent diabetes mellitus) Code(s): E11.9 - TYPE 2 DIABETES MELLITUS WITHOUT COMPLICATIONS; Z79.4 - USP (CURRENT) USE OF INSULIN (8) Hypertension Code(s): I10 - ESSENTIAL (PRIMARY) HYPERTENSION Qualifiers: Hypertension type: essential hypertension Qualified Code(s): I10 - Essential (primary) hypertension (9) Pulmonary hypertension Code(s): I27.2 - OTHER SECONDARY PULMONARY HYPERTENSION * DO NOT USE * Assessment/Plan Shortness of Breath likely Multifactorial CAD +Troponins LV Diastolic Dysfunction Pulmonary HTN Paroxysmal Atrial Fibrillation CKD HTN DM Hyperlipidemia There is a suspicion that her symptoms may be due to an anginal equivalent by her outpatient Self Propelled Mining Machine Operator that has performed an extensive w/up. Agree that can consider adding beta blockade at this time. BD TX PRN O2 as needed Lasix No smoking No Pulmonary contraindication for D/C planning Dr Garner
--- NOTE | 2018-03-11 15:32 | DS ---
Physical Exam: SUBJECTIVE: Patient seen and examined at bedside this morning. She endorses some improvement in her shortness of breath. Denies subjective fevers, chills, chest pain, palpitations, abdominal pain, nausea, vomiting. OBJECTIVE: Vital Signs Period Temp Pulse Resp BP Sys/Renee Pulse Ox Last 24 Hr 98.2 F-99.0 F 75-78 20-22 136-162/48-71 100-100 PHYSICAL EXAM GENERAL: Patient is awake, alert, and fully oriented, in no acute distress. HEAD: Normal with no signs of trauma. EYES: Pupils equal, round and reactive to light, extraocular movements intact without nystagmus b/l. Sclera anicteric, conjunctiva clear b/l. EARS, NOSE, THROAT: Oropharynx clear without exudates. Moist mucous membranes. NECK: Supple without lymphadenopathy. No JVD appreciated. LUNGS: Good inspiratory effort and air entry b/l. Clear to auscultation B/L. Patient is not using accessory muscles of respiration HEART: Regular rate and rhythm. Normal S1 and S2 without murmur, rub or gallop. ABDOMEN: Soft, nontender, not distended. Normoactive bowel sounds X4 quadrants. No guarding, no rebound tenderness. No hepatomegaly appreciated. MUSCULOSKELETAL: Normal range of motion at all joints. No bony deformities or tenderness. Strength 4/5 b/l upper and lower extremities. UPPER EXTREMITIES: 2+ radial pulses b/l, warm, well-perfused. No cyanosis noted. LOWER EXTREMITIES: 2+ dorsalis pulses b/l, warm, well-perfused. No calf tenderness b/l. Trace peripheral lower extremity pitting edema b/l. NEUROLOGICAL: Cranial nerves II-XII intact. Normal speech. No gross focal deficits. PSYCHIATRIC: Cooperative. Appropriate mood and affect upon my encounter today. SKIN: Warm, dry, no rashes or lesions noted. LABS Laboratory Results - last 24 hr 03/10/18 03/10/18 03/11/18 16:45 21:40 05:16 WBC RBC Hgb Hct MCV MCH MCHC RDW Plt Count MPV PT with INR INR Sodium Potassium Chloride Carbon Dioxide Anion Gap BUN Creatinine Creat Clearance w eGFR POC Glucometer 355 303 102 Random Glucose Calcium Total Bilirubin AST ALT Alkaline Phosphatase Total Protein Albumin 03/11/18 03/11/18 03/11/18 05:45 05:45 05:45 WBC 6.5 RBC 3.28 L Hgb 9.6 L Hct 30.5 L MCV 93.0 MCH 29.3 MCHC 31.5 L RDW 17.8 H Plt Count 180 MPV 9.2 PT with INR 16.80 H INR 1.42 H Sodium 140 Potassium 4.1 Chloride 109 H Carbon Dioxide 21 Anion Gap 9 BUN 58 H Creatinine 3.6 H Creat Clearance w eGFR 12.20 POC Glucometer Random Glucose 93 Calcium 7.4 L Total Bilirubin 0.5 AST 10 L ALT 9 L Alkaline Phosphatase 42 L Total Protein 5.6 L Albumin 2.9 L 03/11/18 11:01 WBC RBC Hgb Hct MCV MCH MCHC RDW Plt Count MPV PT with INR INR Sodium Potassium Chloride Carbon Dioxide Anion Gap BUN Creatinine Creat Clearance w eGFR POC Glucometer 146 Random Glucose Calcium Total Bilirubin AST ALT Alkaline Phosphatase Total Protein Albumin HOSPITAL COURSE: Date of Admission:03/08/18 Date of Discharge: 03/11/18 Patient is a 77 year old female with history significant for hypertension, diabetes, atrial fibrillation (s/p ablation, on Coumadin), left lower extremity DVT, asthma, COPD presents with complaint of chest pain and shortness of breath. Her EKG upon admission showed Afib with RVR at 141 BPM. She was converted to sinus rhythm with Cardizem. Troponins peaked at 2.59. Cardiology evaluation discussed troponin elevation nonischemic pattern, and likely secondary to chronic kidney disease. Patient remained in sinus rhythm with Cardizem, during hospitalization. She denied further chest pain, or palpitations. Her INR was initially supratherapeutic at admission. First evening dose was held , and she was subsequently noted to subtherapeutic. She was reinstated on her home dose of Coumadin, and discharged with instruction to follow up with primary care physician 03/15/2018 for INR check. Shortness of breath was evaluated by maintenance repairman who discussed mild obstructive airways, mild restrictive airways with normal alveolar diffusing capacity on prior pulmonary function testing. Discussed symptoms may be anginal equivalent, and added Metoprolol to medication regimen. Patient was discharged home with TC. Nifedipine was stopped, and Cardizem initiated. In addition, Metoprolol, Aspirin, Atorvastatin initiated. Patient discharged with referral to primary care physician, maintenance repairman, roll dough divider. Minutes to complete discharge: 35 Discharge Summary Reason For Visit: CHF,PAROXYSMAL ATRIAL FIB W VENT R,NAUSEA,VOMITING Current Active Problems Afib (Acute) Nausea & vomiting (Acute) Shortness of breath (Acute) Troponin I above reference range (Acute) Condition: Stable - Instructions Diet, Activity, Other Instructions: You were admitted to the hospital with chest tightness and shortness of breath and were found to have an irregular heart rate (Afib). You were evaluated by the roll dough divider, and maintenance repairman and were started on medication to revert your heart to a normal rate. You are being discharged home. Continue taking your home medications as directed. We have made some changes to your medication regimen: We have stopped your Nifedipine. DO NOT take this medication any more. Instead, you will begin taking Diltiazem 120mg daily We are adding Metoprolol 25mg daily. We are adding Aspirin 81 mg daily We are adding Atorvastatin 80mg daily. You will follow up with your primary care physician for blood work (liver function tests) within one week. Inform your physician immediately if you experience any muscle aches with this medication. You will discuss these medication changes with your primary care physician, roll dough divider, and maintenance repairman. It is very important that you follow up with your primary care physician by Thursday03/15/2018 to check your INR level. Continue taking your home dose of Warfarin 7.5mg daily. As you are on a blood thinner (Coumadin) be cautious the medication places you at increased risk of bleeding with fall, injury, or trauma. If you notice any bleeding, immediately return to the nearest Emergency Department; Follow up with your maintenance repairman (Dr. Ramires) within one week after discharge. Follow up with roll dough divider (Dr. Carrion) within one week after discharge. Return to the nearest Emergency Department if you experience worsening symptoms , fall, loss of consciousness, any bleeding, fevers, chills, shortness of breath , chest pain, palpitations, abdominal pain, nausea, vomiting. Referrals: Daniel Carrion MD [Staff Physician] - Myesha Khan MD [Primary Care Provider] - Chaz Ramires MD, MD [Staff Physician] - Disposition: VNS/HOME HEALTH CARE - Home Medications Comprehensive Discharge Medication List: Ambulatory Orders hydrALAZINE HCL [Apresoline -] 100 mg PO Q8H 01/28/17 Ferrous Sulfate 325 mg PO BID 02/02/17 Folic Acid 1 mg PO DAILY 12/09/17 Isosorbide Mononitrate [Isosorbide Mononitrate ER] 60 mg PO DAILY 12/09/17 Pantoprazole Sodium 40 mg PO DAILY 12/09/17 Sodium Bicarbonate - 650 mg PO BID #40 tablet 12/11/17 Insulin (Levemir) [Levemir Vial] 20 units SQ HS 12/14/17 Ascorbic Acid [Vitamin C] 1,000 mg PO DAILY 03/08/18 Furosemide 40 mg PO DAILY 03/08/18 Warfarin Sodium [Coumadin] 7.5 mg PO DAILY 03/09/18 Budesonide/Formeterol Fumarate [SYMBICORT 160/4.5mcg -] 1 puff PO DAILY Tolterodine Tartrate [Detrol -] 2 mg PO BID 03/10/18 Aspirin [ASA -] 81 mg PO DAILY #30 tab.chew 03/11/18 Atorvastatin Ca [Lipitor] 80 mg PO HS #30 tab 03/11/18 Diltiazem Cd [Cardizem Cd -] 120 mg PO DAILY 28 Days #28 cap.cd.24h 03/11/18 Metoprolol Succinate 25 mg PO DAILY 28 Days #28 tab.er.24h 03/11/18 This patient is new to me today: No Emergency Visit: Yes ED Registration Date: 03/08/18 Care time: The patient presented to the Emergency Department on the above date and was hospitalized for further evaluation of their emergent condition. Critical Care patient: No - Discharge Referral Referred to [facility] Med P.C.: No
--- NOTE | 2018-03-11 16:22 | PN ---
Teaching Attending Note Name of Resident: Ibrahima Reilly ATTENDING PHYSICIAN STATEMENT I saw and evaluated the patient. I reviewed the resident's note and discussed the case with the resident. I agree with the resident's findings and plan as documented. SUBJECTIVE: Patient feels less SOB. OBJECTIVE: Vital Signs Period Temp Pulse Resp BP Sys/Renee Pulse Ox Last 24 Hr 98.2 F-99.0 F 75-78 20-22 136-162/48-71 100-100 HEART: S1S2, RRR LUNGS: Clear ABDOMEN: Soft, non-tender, non-distended, normal BS EXTREMITIES: No edema Laboratory Results - last 24 hr 03/10/18 03/10/18 03/11/18 16:45 21:40 05:16 WBC RBC Hgb Hct MCV MCH MCHC RDW Plt Count MPV PT with INR INR Sodium Potassium Chloride Carbon Dioxide Anion Gap BUN Creatinine Creat Clearance w eGFR POC Glucometer 355 303 102 Random Glucose Calcium Total Bilirubin AST ALT Alkaline Phosphatase Total Protein Albumin 03/11/18 03/11/18 03/11/18 05:45 05:45 05:45 WBC 6.5 RBC 3.28 L Hgb 9.6 L Hct 30.5 L MCV 93.0 MCH 29.3 MCHC 31.5 L RDW 17.8 H Plt Count 180 MPV 9.2 PT with INR 16.80 H INR 1.42 H Sodium 140 Potassium 4.1 Chloride 109 H Carbon Dioxide 21 Anion Gap 9 BUN 58 H Creatinine 3.6 H Creat Clearance w eGFR 12.20 POC Glucometer Random Glucose 93 Calcium 7.4 L Total Bilirubin 0.5 AST 10 L ALT 9 L Alkaline Phosphatase 42 L Total Protein 5.6 L Albumin 2.9 L 03/11/18 11:01 WBC RBC Hgb Hct MCV MCH MCHC RDW Plt Count MPV PT with INR INR Sodium Potassium Chloride Carbon Dioxide Anion Gap BUN Creatinine Creat Clearance w eGFR POC Glucometer 146 Random Glucose Calcium Total Bilirubin AST ALT Alkaline Phosphatase Total Protein Albumin Current Medications Generic Name Dose Route Start Last Admin Trade Name Freq PRN Reason Stop Dose Admin Albuterol/Ipratropium 1 amp 03/10/18 00:46 03/10/18 11:40 Duoneb - NEB 1 amp Q6H PRN Administration SHORTNESS OF BREATH Diltiazem HCl 120 mg 03/09/18 10:00 03/11/18 09:18 Cardizem Cd - PO 120 mg DAILY [facility] Administration Furosemide 80 mg 03/11/18 10:00 03/11/18 09:18 Lasix - PO 80 mg DAILY [facility] Administration Hydralazine HCl 100 mg 03/09/18 10:00 03/11/18 09:18 Apresoline - PO 100 mg BID [facility] Administration Insulin Aspart 1 vial 03/10/18 22:00 03/11/18 11:04 Novolog Vial Sliding Scale - SQ Not Given ACHS [facility] Protocol Insulin Detemir 20 units 03/08/18 22:00 03/10/18 21:43 Levemir Vial SQ 20 units HS [facility] Administration Isosorbide Mononitrate 60 mg 03/09/18 10:00 03/11/18 09:18 Imdur - PO 60 mg DAILY [facility] Administration Pantoprazole Sodium 40 mg 03/09/18 10:00 03/11/18 09:18 Protonix - PO 40 mg DAILY [facility] Administration Polyethylene Glycol 17 gm 03/10/18 14:45 03/11/18 09:19 Miralax (For Daily Use) - PO 17 grams DAILY [facility] Administration Sodium Bicarbonate 650 mg 03/08/18 22:00 03/11/18 09:18 Sodium Bicarbonate - PO 650 mg BID [facility] Administration Warfarin Sodium 7.5 mg 03/11/18 18:00 Coumadin - PO DAILY@1800 [facility] ASSESSMENT AND PLAN: This is a 77 year old woman with a history of HTN, hyperlipidemia, PAD, atrial fibrillation, ablation, chronic diastolic heart failure, stage 4 CKD, LLE DVT, asthma, COPD, GERD, depression who presented to the ED with chest pain, shortness of breath, and vomiting. 1. Atrial fibrillation, paroxysmal, with RVR - Remains in SR - Continue Cardizem CD, Coumadin 2. Demand ischemia secondary to rapid a fib, acute CHF - Had negative nuclear stress 04/2017 3. Dyspnea - Thought to be secondary to cardiac ischemia superimposed on pulm HTN, asthma, COPD, diastolic heart failure - Continue current management - Cardiac cath not able to be done secondary to CKD - Continue Imdur - Add aspirin, Toprol XL, Lipitor (patient was on each in the past - unclear why discontinued) 4. HTN - Continue Cardizem, Hydralazine, Lasix 5. Hyperlipidemia - Start Lipitor 6. Stage 4 CKD - Stable 7. Type 2 DM - Continue Levemir, Novolog sliding scale 8. GERD - Continue Protonix 9. Acute on chronic diastolic heart failure - Continue Lasix 10. Asthma, COPD - Stable 11. Depression - Stable 12. PAD 13. Ok for discharge home
[2018-03-11] MEDS ORDERED: WARFARIN NA 7.5 MG TABLET (FP) PO SCH (18:00)
[2018-03-11 18:31] VITALS: BP 146/58; PULSE 79; TEMP 98.4
== END 2018-03-11 19:24 | disposition home or self-care (01) | DRG 311 ==
LOC: JER 05:18 → INTOOBSV 08:38 → JERBED 08:38 → OBSVTOIN 14:41 → J4W 03-09 13:38
PROVIDERS: ATTEND Internal Medicine
PROC: 5A09357 Assistance with Respiratory Ventilation, Less than 24 Consecutive Hours, Continuous Positive Airway Pressure (ICD-10-PCS; principal; 2018-03-08)
DX: I24.8 Other forms of acute ischemic heart disease (principal); I50.33 Acute on chronic diastolic (congestive) heart failure; I13.0 Hypertensive heart and chronic kidney disease with heart failure and stage 1 through stage 4 chronic kidney disease, or unspecified chronic kidney disease; N18.4 Chronic kidney disease, stage 4 (severe); I48.92 Unspecified atrial flutter; E86.0 Dehydration; E11.22 Type 2 diabetes mellitus with diabetic chronic kidney disease; I48.0 Paroxysmal atrial fibrillation; I25.10 Atherosclerotic heart disease of native coronary artery without angina pectoris; J44.9 Chronic obstructive pulmonary disease, unspecified; I27.20 Pulmonary hypertension, unspecified; Z79.01 Long term (current) use of anticoagulants; J45.909 Unspecified asthma, uncomplicated; Z79.4 Long term (current) use of insulin; I25.2 Old myocardial infarction; K21.9 Gastro-esophageal reflux disease without esophagitis; E78.5 Hyperlipidemia, unspecified; Z87.891 Personal history of nicotine dependence; Z86.718 Personal history of other venous thrombosis and embolism; I73.9 Peripheral vascular disease, unspecified; K59.00 Constipation, unspecified; Z90.710 Acquired absence of both cervix and uterus; F32.9 Major depressive disorder, single episode, unspecified
CPT/HCPCS: 36415; 71045-TC-FY; 80053; 81003; 81015; 82550; 82553; 82962; 83735; 83880; 84100; 84484; 85025; 85027; 85379; 85610; 86850; 86900; 86901; 87086; 93005; 93010; 94640; 99285-25; G0378; J7030

== ENCOUNTER 2018-08-22 14:07 | Inpatient (IN) | payer OTHER ==
--- NOTE | 2018-08-22 15:17 | PDOC ---
History of Present Illness - General Chief Complaint: Shortness of Breath Stated Complaint: DIFF BREATHING Time Seen by Provider: 08/22/18 14:44 History Source: Patient Exam Limitations: No Limitations - History of Present Illness Initial Comments: 08/22/18 15:13 77F with a PMH of HTN, DM, afib (s/p ablation, on coumadin), CKD, LLE DVT, asthma, COPD who presents to the ER with complaints of shortness of breath. The patient states that over the last 2 days, she's had worsening shortness of breath which acutely worsened today. She states that she was not able to walk from her living room to her bathroom without feeling short of breath. She denies chest pain but admits to a sensation of "feeling like I'm pushing a rock " in her chest. She denies nausea, vomiting, fever, chills, cough, palpitations , lightheadedness, syncope, abdominal pain. Past History - Past Medical History Allergies/Adverse Reactions: Allergies Allergy/AdvReac Type Severity Reaction Status Date / Time No Known Allergies Allergy Verified 08/22/18 14:41 Home Medications: Ambulatory Orders hydrALAZINE HCL [Apresoline -] 100 mg PO BID 01/28/17 Ferrous Sulfate 325 mg PO BID 02/02/17 Folic Acid 1 mg PO DAILY 12/09/17 Sodium Bicarbonate - 650 mg PO BID #40 tablet 12/11/17 Insulin (Levemir) [Levemir Vial] 20 units SQ HS 12/14/17 Ascorbic Acid [Vitamin C] 1,000 mg PO DAILY 03/08/18 Furosemide 40 mg PO DAILY 03/08/18 Warfarin Sodium [Coumadin] 7.5 mg PO HS 03/09/18 Diltiazem Cd [Cardizem Cd -] 120 mg PO DAILY 28 Days #28 cap.cd.24h 03/11/18 Anemia: Yes Asthma: Yes Cancer: No Cardiac Disorders: Yes (AF s/p ablation (coumadin), [place]) CVA: No COPD: Yes CHF: Yes DVT: No Dementia: No Diabetes: Yes (IDDM) Dialysis: No (ckd) GI Disorders: Yes (GERD) Disorders: Yes (frequency) HTN: Yes Hypercholesterolemia: Yes Liver Disease: No Psychiatric Problems: Yes (DEPRESSION) Seizures: No Thyroid Disease: No - Surgical History Abdominal Surgery: Yes (TUBAL LIG.) Appendectomy: No Cardiac Surgery: Yes (ablation) Cholecystectomy: No Lung Surgery: No Neurologic Surgery: No Orthopedic Surgery: Yes (hammer toes,trigger finger) - Family Disease History Family Disease History: Diabetes: Grandparents, [place]: Mother (htn) - Immunization History Immunization Up to Date: Yes - Suicide/Smoking/Psychosocial Hx Smoking Status: Yes Smoking History: Unknown if ever smoked Have you smoked in the past 12 months: No Number of Cigarettes Smoked Daily: 1 If you are a former smoker, when did you quit?: 1 year ago Information on smoking cessation initiated: No 'Breaking Loose' booklet given: 12/10/17 Hx Alcohol Use: No Drug/Substance Use Hx: No Substance Use Type: None Hx Substance Use Treatment: No Review of Systems - Review of Systems Able to Perform ROS?: Yes Comments:: 08/22/18 15:15 GENERAL/CONSTITUTIONAL: No fever or chills. No weakness. HEAD, EYES, EARS, NOSE AND THROAT: No change in vision. No ear pain or discharge. No sore throat. CARDIOVASCULAR: No chest pain, palpitations, or lightheadedness. RESPIRATORY: + for SOB. No cough, wheezing, or hemoptysis. GASTROINTESTINAL: No abdominal pain, nausea, vomiting, diarrhea, or constipation. GENITOURINARY: No dysuria, frequency, hematuria, or change in urination. MUSCULOSKELETAL: No joint or muscle swelling or pain. No neck or back pain. SKIN: No rash or lesions. NEUROLOGIC: No headache, numbness, tingling, focal weakness, loss of consciousness, or change in strength/sensation. Is the patient limited Mongolian proficient: No *Physical Exam - Vital Signs Last Vital Signs Temp Pulse Resp BP Pulse Ox 97.9 F 80 18 158/52 L 100 08/22/18 14:37 08/22/18 14:37 08/22/18 14:37 08/22/18 14:37 08/22/18 14:37 - Physical Exam Comments: 08/22/18 15:15 GENERAL: Well developed, well nourished. Awake and alert. No acute distress. HEENT: Normocephalic, atraumatic. Hearing grossly normal. Moist mucous membranes. PERRLA, EOMI. No conjunctival pallor. Sclera are non-icteric. NECK: Supple. Full ROM. No JVD. CARDIOVASCULAR: Regular rate and rhythm. No murmurs, rubs, or gallops. PULMONARY: Mild respiratory distress but speaking in full sentences. Mild rales in b/l lower lung kee ABDOMINAL: Soft. Non-tender. Non-distended. No rebound or guarding. GENITOURINARY: No CVA tenderness bilaterally. MUSCULOSKELETAL: Normal range of motion at all joints. No bony deformities or tenderness. EXTREMITIES: No cyanosis. No clubbing. 1+ pitting edema in b/l LE. No calf tenderness or swelling. SKIN: Warm and dry. Normal capillary refill. No rashes. No jaundice. NEUROLOGICAL: Alert, awake, appropriate. Cranial nerves 2-12 intact. Normal speech. Gait is normal without ataxia. PSYCHIATRIC: Cooperative. Good eye contact. Appropriate mood and affect. ED Treatment Course - LABORATORY CBC & Chemistry Diagram: 08/28/18 05:52 08/28/18 05:52 - RADIOLOGY Radiology Studies Ordered: Category Date Time Status CHEST X-RAY PORTABLE* [RAD] Stat Radiology 08/22/18 14:51 Taken Medical Decision Making - Medical Decision Making 08/22/18 15:16 77F with MMP who presents with shortness of breath that has worsened acutely over the past 2 days. Concern for CHF exacerbation, COPD exacerbation, ACS, PNA. Will obtain labs, CXR, and EKG. Pt well appearing, on NC with 100% O2 saturation. Pending labs and imaging. 08/22/18 15:34 CXR shows mild congestion but improved c/w prior XR's. 08/22/18 15:44 When going in to update the patient, her daughter expressed that she just stated she was lightheaded and tired which is abnormal for patient during the day. Obtaining stat FS and EKG. 08/22/18 15:57 FS 322. EKG unremarkable. Pt noted to have wheezing. Will give steroids and nebs. 08/22/18 20:12 Pt taken off bipap with improvement in respiratory status with only mild expiratory wheezes. Pt endorsed to Dr. Leon for admission. *DC/Admit/Observation/Transfer Diagnosis at time of Disposition: COPD exacerbation CHF (congestive heart failure) Qualifiers: Heart failure type: unspecified Heart failure chronicity: unspecified Qualified Code(s): I50.9 - Heart failure, unspecified - Discharge Dispostion Condition at time of disposition: Guarded Decision to Admit order: Yes - Referrals - Patient Instructions - Post Discharge Activity
[2018-08-22] MEDS ORDERED: ALBUTEROL SO4 2.5/IPRATROPIUM 0.5 INH SOL 3 ML VIAL.NEB. NEB ONE ×2 (15:53→16:02)
[2018-08-22] MEDS ORDERED: methylPREDNISolone NA SUCC 125 MG/2 ML VIAL IVPUSH ONE (15:53)
[2018-08-22] MEDS ORDERED: methylPREDNISolone NA SUCC 125 MG/2 ML VIAL ONE (16:02)
--- NOTE | 2018-08-22 16:10 | PDOC ---
Documentation entered by Mohsen Portillo SCRIBE, acting as scribe for Prince Canchola MD. Prince Canchola MD: This documentation has been prepared by the Bandar rapp Daniel, SCRIBE, under my direction and personally reviewed by me in its entirety. I confirm that the documentation accurately reflects all work, treatment, procedures, and medical decision making performed by me. Attending Attestation - Resident Resident Name: Benja Madrid - ED Attending Attestation I have performed the following: I have examined & evaluated the patient, The case was reviewed & discussed with the resident, I agree w/resident's findings & plan, Exceptions are as noted - HPI HPI: 08/22/18 15:29 The patient is a 77 year old female with a past medical history of HTN, diabetes , CHF, paroxysmal afib (s/p ablation, on coumadin), CKD, LLE DVT, asthma, and COPD here today for shortness of breath. The patient reports that she has been having worsening shortness of breath for the past 2 days. She notes today that she was unable to walk from her living room to her bathroom without feeling short of breath. Patient also states that she feels like she is pushing a boulder up a hill. Daughters note that she did not use any breathing treatments because she ran out of albuterol. En route, EMS gave her a nebulizer, which helped. Pt denies chest pain. Denies leg swelling. Denies calf pain. Patient denies headache, lightheadedness. Denies fever, chills. Denies nausea, vomiting, diarrhea, abdominal pain. Allergies: NKA PCP: Myesha Lim - Physicial Exam PE: 08/22/18 15:29 GENERAL: Awake, alert, and fully oriented, in moderate respiratory distress. HEAD: No signs of trauma EYES: PERRLA, EOMI, sclera anicteric, conjunctiva clear ENT: Auricles normal inspection, hearing grossly normal, nares patent, oropharynx clear without exudates. Moist mucosa NECK: Nontender, no stepoffs, Normal ROM, supple, no lymphadenopathy, JVD, or masses LUNGS: + bilateral expiratory wheezes HEART: Regular rate and rhythm, normal S1 and S2, no murmurs, rubs or gallops ABDOMEN: Soft, nontender, normoactive bowel sounds. No guarding, no rebound. No masses EXTREMITIES: Normal range of motion, no edema. No clubbing or cyanosis. No cords, erythema, or tenderness NEUROLOGICAL: Cranial nerves II through XII intact. 5/5 strength and sensation in all extremities, Normal speech, normal gait, normal cerebellar function SKIN: Warm, Dry, normal turgor, no rashes or lesions noted. - Medical Decision Making 08/22/18 16:08 77 F with SOB. Suspect COPD exacerbation given wheezing on exam. Pt with no obvious signs of volume overload. Also consider PE, though less likely as pt is on coumadin. Vitals wnl, no tachycardia or hypoxia. - Labs, trop, BNP - CXR - Nebs, steroids
[2018-08-22 16:12] LABS: VENOUS PC02 32.2 mmHg (41-51); VENOUS PH 7.45 (7.31-7.41)
[2018-08-22 16:18] LABS: BASO % 1.9 % (0-2.0); EOS % 0.7 % (0-4.5); HEMATOCRIT 37.1 % (32.4-45.2); HEMOGLOBIN 12.3 GM/dL (10.7-15.3); LYMPH % 24.6 % (8-40); MCH 32.1 pg (25.7-33.7); MCHC 33.3 g/dl (32.0-36.0); MEAN CELL VOLUME 96.4 fl (80-96); MEAN PLT VOLUME 9.4 fl (7.5-11.1); MONO % 10.1 % (3.8-10.2); NEUT % 62.7 % (42.8-82.8); PLATELET COUNT 196 K/MM3 (134-434); RBC 3.84 M/mm3 (3.60-5.2); RDW 15.2 % (11.6-15.6); WHITE BLOOD COUNT 5.9 K/mm3 (4.0-10.0)
[2018-08-22 16:28] LABS: INR 1.74 (0.83-1.09); PROTHROMBIN TIME (PATIENT) 20.6 SEC (9.7-13.0)
[2018-08-22 17:28] LABS: ALBUMIN 3.2 g/dl (3.4-5.0); BILIRUBIN,TOTAL 0.3 mg/dL (0.2-1); BLOOD UREA NITROGEN 50.7 mg/dL (7-18); CALCIUM 8.4 mg/dL (8.5-10.1); CREATININE 3.9 mg/dL (0.55-1.3); MAGNESIUM 2.2 mg/dL (1.8-2.4); N-TERMINAL BNP 497.5 pg/ml (5-450); TOT PROT 6.1 g/dl (6.4-8.2)
--- NOTE | 2018-08-22 19:16 | PN ---
Teaching Attending Note Name of Resident: Gustavo Leon ATTENDING PHYSICIAN STATEMENT I saw and evaluated the patient. I reviewed the resident's note and discussed the case with the resident. I agree with the resident's findings and plan as documented. SUBJECTIVE: Patient is a 77 year old woman with a PMH of HTN, NIDDM, Diastolic CHF, Paroxysmal Afib (s/p ablation, on coumadin), CKD, LLE DVT, Asthma and COPD presents with shortness of breath for 2 days. The patient reports that she has been having worsening shortness of breath for the past 2 days. She notes today that she was unable to walk from her living room to her bathroom without feeling short of breath. Patient also states that she feels like she is pushing a boulder up a hill. Daughters note that she did not use any breathing treatments because she ran out of albuterol. En route, EMS gave her a nebulizer , which helped. She is an ex-smoker. Patient denies chest pain, leg swelling, calf pain, headache, lightheadedness, fever, chills, nausea, vomiting, diarrhea , dysuria or abdominal pain. OBJECTIVE: Alert Vital Signs Period Temp Pulse Resp BP Sys/Renee Pulse Ox Last 24 Hr 97.9 F 80 18 158/52 100-100 HEENT: No Jaundice, eye redness or discharge, PERRLA, EOMI. Dry mucous membrane. Normocephalic, atraumatic. External ears are normal and hearing is grossly intact. No nasal discharge. Neck: Supple, nontender. No palpable adenopathy or thyromegaly. No JVD Chest: Good effort. Prolonged expiration. Clear to percussion. Heart: Regular. No S3, rub or murmur Abdomen: Not distended, soft, nontender and no HSM. No rebound or guarding. Normal bowel sounds. Ext: Peripheral pulses intact. No leg edema. Skin: Warm and dry. No petechiae, rash or ecchymosis. Neuro: Alert. Oriented x3. CN 2-12 grossly intact. Sensation grossly intact in all four extremities and DTR are symmetric. Psych: Appropriate mood and affect. Good insight. Home Medications Medication Instructions Recorded hydrALAZINE HCL [Apresoline -] 100 mg PO Q8H 01/28/17 Ferrous Sulfate 325 mg PO BID 02/02/17 Folic Acid 1 mg PO DAILY 12/09/17 Isosorbide Mononitrate [Isosorbide 60 mg PO DAILY 12/09/17 Mononitrate ER] Pantoprazole Sodium 40 mg PO DAILY 12/09/17 Sodium Bicarbonate - 650 mg PO BID #40 tablet 12/11/17 Insulin (Levemir) [Levemir Vial] 20 units SQ HS 12/14/17 Ascorbic Acid [Vitamin C] 1,000 mg PO DAILY 03/08/18 Furosemide 40 mg PO DAILY 03/08/18 Warfarin Sodium [Coumadin] 7.5 mg PO DAILY 03/09/18 Budesonide/Formeterol Fumarate 1 puff PO DAILY 03/10/18 [SYMBICORT 160/4.5mcg -] Tolterodine Tartrate [Detrol -] 2 mg PO BID 03/10/18 Aspirin [ASA -] 81 mg PO DAILY #30 tab.chew 03/11/18 Atorvastatin Ca [Lipitor] 80 mg PO HS #30 tab 03/11/18 Diltiazem Cd [Cardizem Cd -] 120 mg PO DAILY 28 Days #28 03/11/18 cap.cd.24h Metoprolol Succinate 25 mg PO DAILY 28 Days #28 03/11/18 tab.er.24h Abnormal Lab Results 08/22/18 08/22/18 08/22/18 16:00 16:00 16:00 MCV 96.4 H PT with INR 20.60 H INR 1.74 H VBG pH POC VBG pCO2 VBG HCO3 Chloride 108 H BUN 50.7 H Creatinine 3.9 H Random Glucose 311 H* Calcium 8.4 L AST 12 L B-Natriuretic Peptide 497.5 H Total Protein 6.1 L Albumin 3.2 L 08/22/18 16:00 MCV PT with INR INR VBG pH 7.45 H POC VBG pCO2 32.2 L VBG HCO3 22.1 L Chloride BUN Creatinine Random Glucose Calcium AST B-Natriuretic Peptide Total Protein Albumin Current Medications Generic Name Dose Route Start Last Admin Trade Name Freq PRN Reason Stop Dose Admin Ascorbic Acid 1,000 mg 08/23/18 10:00 Vitamin C - PO DAILY [facility] Budesonide/Formoterol Fumarate 2 puff 08/23/18 10:00 Symbicort 160/4.5mcg - IH BID [facility] Diltiazem HCl 120 mg 08/23/18 10:00 Cardizem Cd - PO DAILY [facility] Ferrous Sulfate 325 mg 08/22/18 22:00 08/22/18 21:40 Feosol - PO 325 mg BIDWM ERMA Administration Folic Acid 1 mg 08/23/18 10:00 Folic Acid - PO DAILY [facility] Furosemide 40 mg 08/23/18 10:00 Lasix - PO DAILY [facility]MA Hydralazine HCl 100 mg 08/22/18 21:15 08/22/18 21:40 Apresoline - PO 100 mg TID ERMA Administration Azithromycin 250 mg/ Dextrose 250 mls @ 250 mls/hr 08/23/18 10:00 IVPB DAILY ERMA Insulin Aspart 1 vial 08/22/18 22:00 08/22/18 22:00 Novolog Vial Sliding Scale - SQ 10 unit ACHS ERMA Administration Protocol Insulin Detemir 20 units 08/22/18 22:00 08/22/18 21:45 Levemir Vial SQ 20 unit HS ERMA Administration Methylprednisolone Sodium Succinate 40 mg 08/23/18 02:00 Solu-Medrol - IVPUSH Q8H-IV [facility]MA Pantoprazole Sodium 40 mg 08/23/18 10:00 Protonix - PO DAILY [facility] Sodium Bicarbonate 650 mg 08/22/18 22:00 08/22/18 22:29 Sodium Bicarbonate - PO 650 mg BID ERMA Administration Warfarin Sodium 7.5 mg 08/22/18 21:15 08/22/18 21:40 Coumadin - PO 7.5 mg DAILY@1800 ERMA Administration ASSESSMENT AND PLAN: 1. COPD Exacerbation - No obvious precipitating factor. Patient was wheezing on arrival in the ER and improved after treatment with Solumedrol, Duoneb and Bipap. No acute abnormality on CXR and EKG shows NSR with no significant ST-T wave changes. Initial troponin is negative. Will continue Solumedrol 40 mg IV q 8 hours, Duoneb, Oxygen by NE and IV Azithromycin. Will continue comprehensive care of all her comorbid issues. Continue coumadin for Afib and bridge with heparin until therapeutic INR is attained. 2. Hypoalbuminemia - Possibly due to combined effects of malnutrition and inflammation associated with comorbid chronic conditions. Will ensure adequate dietary protein intake and also consult leadite worker. Urinalysis pending. 3. Uncontrolled DM For now, we will hold the home diabetes drugs and implement sliding scale insulin regimen. Provide comprehensive diabetes care with patient teaching and counseling about the importance of adherence to prescribed diabetes regimen, euglycemia, eye care and foot care. 4. CKD - Has multiple risk factors. Needs basic nephrologic workup in view of well preserved hematocrit. Will consult nephrology and avoid nephrotoxic agents such as NSAIDS, aminoglycosides, contrast dyes and certain Alternative medicine products. 5. Overweight Counseled on the risks associated with being overweight. Will provide patient all the necessary assistance, counseling and positive reinforcement to facilitate weight loss. Consult leadite worker. 6. Hypertension - Restart suitable outpatient antihypertensive drugs when clinically appropriate. Revise regimen and add Lisinopril 20 mg bid in view of concomitant DM - target BP <130/80. Nonpharmacologic measures to control hypertension like weight loss, salt restriction and exercise discussed. 7. DVT prophylaxis - On coumadin for Afib 8. Advance directives - Full code.
[2018-08-22] MEDS ORDERED: AZITHROMYCIN IVPB 500 MG in DEXTROSE 5%-WATER - 250 ML IVPB ONE (21:08)
--- NOTE | 2018-08-22 21:09 | HP ---
CHIEF COMPLAINT: shortness of breath PCP: Dr. Garsia HISTORY OF PRESENT ILLNESS: Pt. is a 77 y.o. F w/ PMHx. of HTN, NIDDM, Afib(s/p ablation on Coumadin), LLE DVT, CHFpEF, OR( s/p catherization), CKD Stage 4, GERD, and over active bladder presents after waking up this morning short of breath. Pt. states it feels "like pushing a rock up a hill." Pt. states that she does not have any more nebulizer solution and therefore came in to the hospital. Per Pt. she is able to walk to her bathroom and kitchen before feeling short of breath and she endorses that she felt the same today. Pt. endorses decreased PO intake over the last few days. Pt. states that she has been having intermittent nausea over the last week but denies vomiting. Pt. denies any chest pain, palpitations, numbness/tinlging, changes in urination, changes in bowel habits, fever, chills, light headedness or dizziness. Pt. denies taking her evening time medications including Hydralazine, Sodium Bicarbonate or Warfarin. ER course was notable for: (1)EKG, Duonebs x 3, Solumedrol 125 (2) BiPAP, VBG (3) Recent Travel: No PAST MEDICAL HISTORY: As above PAST SURGICAL HISTORY: Colonoscopy( a few polyps removed a couple years ago), Hysterectomy(fibroids), Tubal ligation, Upper endoscopy Social History: Smoking: Quit 1 year ago, smoked from [age] (1PPD) Alcohol: Occasional glass of wine Drugs: Denies Family History: Father-DM, Mother-kidney disease, Sister-Lung CA Allergies No Known Allergies Allergy (Verified 08/22/18 14:41) HOME MEDICATIONS: Home Medications Medication Instructions Recorded hydrALAZINE HCL [Apresoline -] 100 mg PO Q8H 01/28/17 Ferrous Sulfate 325 mg PO BID 02/02/17 Folic Acid 1 mg PO DAILY 12/09/17 Isosorbide Mononitrate [Isosorbide 60 mg PO DAILY 12/09/17 Mononitrate ER] Pantoprazole Sodium 40 mg PO DAILY 12/09/17 Sodium Bicarbonate - 650 mg PO BID #40 tablet 12/11/17 Insulin (Levemir) [Levemir Vial] 20 units SQ HS 12/14/17 Ascorbic Acid [Vitamin C] 1,000 mg PO DAILY 03/08/18 Furosemide 40 mg PO DAILY 03/08/18 Warfarin Sodium [Coumadin] 7.5 mg PO DAILY 03/09/18 Budesonide/Formeterol Fumarate 1 puff PO DAILY 03/10/18 [SYMBICORT 160/4.5mcg -] Tolterodine Tartrate [Detrol -] 2 mg PO BID 03/10/18 Aspirin [ASA -] 81 mg PO DAILY #30 tab.chew 03/11/18 Atorvastatin Ca [Lipitor] 80 mg PO HS #30 tab 03/11/18 Diltiazem Cd [Cardizem Cd -] 120 mg PO DAILY 28 Days #28 03/11/18 cap.cd.24h Metoprolol Succinate 25 mg PO DAILY 28 Days #28 03/11/18 tab.er.24h REVIEW OF SYSTEMS As above PHYSICAL EXAMINATION Vital Signs - 24 hr 08/22/18 08/22/18 08/22/18 14:37 14:41 16:15 Temperature 97.9 F Pulse Rate 80 Respiratory 18 Rate Blood Pressure 158/52 L O2 Sat by Pulse 100 100 100 Oximetry (%) 08/22/18 19:28 Temperature Pulse Rate Respiratory Rate Blood Pressure O2 Sat by Pulse 98 Oximetry (%) GENERAL: Awake, alert, and fully oriented, in no acute distress. HEAD: Normal with no signs of trauma. EYES: Extraocular movements intact, sclera anicteric, conjunctiva clear. EARS, NOSE, THROAT: Ears normal, nares patent, oropharynx clear without exudates. Moist mucous membranes. NECK: Normal range of motion, supple without lymphadenopathy, JVD, or masses. LUNGS: Breath sounds equal, clear to auscultation bilaterally. No wheezes, and no crackles. No accessory muscle use. HEART: Regular rate and rhythm, normal S1 and S2 without murmur ABDOMEN: Soft, nontender, not distended, normoactive bowel sounds, no guarding, no rebound, no masses. MUSCULOSKELETAL: Normal range of motion at all joints. No bony deformities or tenderness. No CVA tenderness. UPPER EXTREMITIES: 2+ radial pulses, warm, well-perfused. No cyanosis. No clubbing. No peripheral edema. LOWER EXTREMITIES: Warm, well-perfused. No calf tenderness. No peripheral edema. NEUROLOGICAL: Normal speech. Gait not assesed PSYCHIATRIC: Cooperative. Good eye contact. Appropriate mood and affect. SKIN: Warm, dry, normal turgor, no rashes or lesions noted Laboratory Results - last 24 hr 08/22/18 08/22/18 08/22/18 15:49 16:00 16:00 WBC 5.9 RBC 3.84 Hgb 12.3 Hct 37.1 D MCV 96.4 H MCH 32.1 MCHC 33.3 RDW 15.2 D Plt Count 196 MPV 9.4 Absolute Neuts (auto) 3.7 Neutrophils % 62.7 D Lymphocytes % 24.6 D Monocytes % 10.1 Eosinophils % 0.7 D Basophils % 1.9 Nucleated RBC % 0 PT with INR 20.60 H INR 1.74 H VBG pH POC VBG pCO2 POC VBG pO2 VBG HCO3 VBG O2 Sat (Luis) VBG Base Excess Sodium Potassium Chloride Carbon Dioxide Anion Gap BUN Creatinine Est GFR (CKD-EPI)AfAm Est GFR (CKD-EPI)NonAf POC Glucometer 322 Random Glucose Calcium Magnesium Total Bilirubin AST ALT Alkaline Phosphatase Creatine Kinase Troponin I B-Natriuretic Peptide Total Protein Albumin 08/22/18 08/22/18 16:00 16:00 WBC RBC Hgb Hct MCV MCH MCHC RDW Plt Count MPV Absolute Neuts (auto) Neutrophils % Lymphocytes % Monocytes % Eosinophils % Basophils % Nucleated RBC % PT with INR INR VBG pH 7.45 H POC VBG pCO2 32.2 L POC VBG pO2 35.0 VBG HCO3 22.1 L VBG O2 Sat (Luis) 71.8 VBG Base Excess -0.8 Sodium 142 Potassium 4.0 Chloride 108 H Carbon Dioxide 23 Anion Gap 11 BUN 50.7 H Creatinine 3.9 H Est GFR (CKD-EPI)AfAm 11.97 Est GFR (CKD-EPI)NonAf 10.33 POC Glucometer Random Glucose 311 H* Calcium 8.4 L Magnesium 2.2 Total Bilirubin 0.3 AST 12 L ALT 15 Alkaline Phosphatase 53 Creatine Kinase 113 Troponin I 0.02 B-Natriuretic Peptide 497.5 H Total Protein 6.1 L Albumin 3.2 L ASSESSMENT/PLAN: Pt. is a 77 y.o. F w/ PMHx. of HTN, NIDDM, Afib(s/p ablation on Coumadin), LLE DVT, CHFpEF, OR( s/p catherization), CKD Stage 4, GERD, and over active bladder presents after waking up this morning short of breath. #Reactive Airway Disease w/ known COPD (not on home O2) Given Solumedrol 125 in ED c/w Solumedrol 40mg Q8H c/w [facility] Pulmonary Consult (Dr. Ramires) appreciated Given loading dose of Azithromycin, will c/w QTc: 450 #Pulmonary HTN Pulm. Art Pressure 27mm Hg on Echo in November 2018---> 33mmHg on Chest CT in March f/u Echo for current HTN level Pt.s status and clinical symptoms improved too quickly for this to be the main component #Subtherapeutic INR INR 1.74 Goal is between 2-3 will c/w home dose(7.5mg) and recheck in AM, consider increasing dose to 10 1 day per week to maintain acceptable range as Pt. vacillates between 7.5mg and 10mg doses. #CHFpEF BNP: 497.5 (lowest it has been on any admission) Echo( 12/17): EF: 60-65%, E/A reversal consistent with diastolic pathology, mild AR +TR + MR, pulmonary artery pressure 27 mm Hg f/u Echo #Afib c/w Diltiazem 120mg Daily c/w Warfarin 7.5mg c/u INR as currently subtherapeutic EKG: NSR, Q waves in V1, QTc: 450 #CKD Cr.: 3.9; BUN: 50.7; eGFR: 11.9 HgB: 12.3 stable #FEN no IVF, encourage PO intake as Pt. has been having decreased appetite, being mindful of an upper limit of 2L monitor electrolytes and replete as needed Diabetic/Na restricted Diet #DVT Ppx. c/w Warfarin currently subtherapeutic #Dispo Med/Surg for likely 1 day then home Pt.'s daughter left her number ([phone] OR [phone]) for updates Visit type - Emergency Visit Emergency Visit: Yes ED Registration Date: 08/22/18 Care time: The patient presented to the Emergency Department on the above date and was hospitalized for further evaluation of their emergent condition. - New Patient This patient is new to me today: Yes Date on this admission: 08/23/18 - Critical Care Critical Care patient: No
[2018-08-22] MEDS ORDERED: hydrALAZINE HCL 25 MG TABLET (FP) ONE (21:31)
[2018-08-22] MEDS ORDERED: WARFARIN NA 5 MG TABLET (UD) ONE (21:31)
[2018-08-22] MEDS ORDERED: WARFARIN NA 1 MG TABLET (FP) ONE (21:31)
[2018-08-22] MEDS ORDERED: AZITHROMYCIN IVPB 500 MG/250 ML BAG IVPB ONE (21:32)
[2018-08-22] MEDS ORDERED: FERROUS SO4 325 MG TABLET (FP) ONE (21:32)
[2018-08-22] MEDS ORDERED: INSULIN (LEVEMIR) 100 UNITS/ML UNITS SQ ONE (21:33)
[2018-08-22] MEDS: FERROUS SO4 325 MG TABLET (FP) PO SCH (21:40)
[2018-08-22] MEDS: WARFARIN NA 7.5 MG TABLET (FP) PO SCH (21:40)
[2018-08-22] MEDS: hydrALAZINE HCL 50 MG TABLET (FP) PO SCH (21:40)
[2018-08-22] MEDS: INSULIN (LEVEMIR) 100 UNITS/ML UNITS SQ SCH (21:45)
[2018-08-22] MEDS ORDERED: INSULIN (NOVOLOG) ASPART 100 UNITS/ML 10ML VIAL ONE (21:58)
[2018-08-22] MEDS: INSULIN SLIDING SCALE (NOVOLOG) 1 VIAL SQ SCH (22:00)
[2018-08-22] MEDS: SODIUM BICARBONATE 650 MG TABLET PO SCH (22:29)
[2018-08-23] MEDS ORDERED: methylPREDNISolone NA SUCC 40 MG/1 ML VIAL ONE (03:10)
[2018-08-23] MEDS: methylPREDNISolone NA SUCC 40 MG/1 ML VIAL IVPUSH SCH ×3 (03:12→18:06)
[2018-08-23 05:49] LABS: BASO % 0.2 % (0-2.0); EOS % 0.1 % (0-4.5); HEMATOCRIT 34.8 % (32.4-45.2); HEMOGLOBIN 11.3 GM/dL (10.7-15.3); LYMPH % 9.2 % (8-40); MCH 31.2 pg (25.7-33.7); MCHC 32.5 g/dl (32.0-36.0); MEAN PLT VOLUME 9.4 fl (7.5-11.1); MONO % 0.6 % (3.8-10.2); NEUT % 89.9 % (42.8-82.8); PLATELET COUNT 195 K/MM3 (134-434); RBC 3.62 M/mm3 (3.60-5.2); RDW 15.3 % (11.6-15.6); WHITE BLOOD COUNT 7.3 K/mm3 (4.0-10.0)
[2018-08-23 06:01] LABS: INR 1.89 (0.83-1.09); PROTHROMBIN TIME (PATIENT) 22.5 SEC (9.7-13.0)
[2018-08-23 06:17] LABS: CALCIUM 8.1 mg/dL (8.5-10.1); MAGNESIUM 2.1 mg/dL (1.8-2.4); PHOSPHOROUS 3.5 mg/dL (2.5-4.9); POTASSIUM 4.5 mmol/L (3.5-5.1)
[2018-08-23] MEDS ORDERED: hydrALAZINE HCL 25 MG TABLET (FP) ONE (06:18)
[2018-08-23] MEDS: hydrALAZINE HCL 50 MG TABLET (FP) PO SCH ×3 (06:55→23:01)
[2018-08-23] MEDS: INSULIN SLIDING SCALE (NOVOLOG) 1 VIAL SQ SCH ×4 (07:15→21:48)
[2018-08-23] MEDS ORDERED: INSULIN (NOVOLOG) ASPART 100 UNITS/ML 10ML VIAL ONE ×2 (07:15→12:51)
--- NOTE | 2018-08-23 07:39 | PN ---
Physical Exam: SUBJECTIVE: Patient seen and examined at bedside. no acute events since admission. pt feels sleepy OBJECTIVE: Vital Signs Period Temp Pulse Resp BP Sys/Renee Pulse Ox Last 24 Hr 97.9 F-98.3 F 77-99 16-90 151-197/51-60 93-100 GENERAL: Awake, alert, and fully oriented, in no acute distress. HEAD: Normal with no signs of trauma. EYES: Extraocular movements intact, sclera anicteric, conjunctiva clear. EARS, NOSE, THROAT: Ears normal, nares patent, oropharynx clear without exudates. Moist mucous membranes. NECK: Normal range of motion, supple without lymphadenopathy, JVD, or masses. LUNGS: Breath sounds equal, clear to auscultation bilaterally. No wheezes, and no crackles. No accessory muscle use. HEART: Regular rate and rhythm, normal S1 and S2 without murmur ABDOMEN: Soft, nontender, not distended, normoactive bowel sounds, no guarding, no rebound, no masses. MUSCULOSKELETAL: Normal range of motion at all joints. No bony deformities or tenderness. No CVA tenderness. UPPER EXTREMITIES: 2+ radial pulses, warm, well-perfused. No cyanosis. No clubbing. No peripheral edema. LOWER EXTREMITIES: Warm, well-perfused. No calf tenderness. No peripheral edema. NEUROLOGICAL: Normal speech. Gait not assesed PSYCHIATRIC: Cooperative. Good eye contact. Appropriate mood and affect. SKIN: Warm, dry, normal turgor, no rashes or lesions noted Laboratory Results - last 24 hr 08/22/18 08/22/18 08/22/18 15:49 16:00 16:00 WBC 5.9 RBC 3.84 Hgb 12.3 Hct 37.1 D MCV 96.4 H MCH 32.1 MCHC 33.3 RDW 15.2 D Plt Count 196 MPV 9.4 Absolute Neuts (auto) 3.7 Neutrophils % 62.7 D Lymphocytes % 24.6 D Monocytes % 10.1 Eosinophils % 0.7 D Basophils % 1.9 Nucleated RBC % 0 PT with INR 20.60 H INR 1.74 H VBG pH POC VBG pCO2 POC VBG pO2 VBG HCO3 VBG O2 Sat (Luis) VBG Base Excess Sodium Potassium Chloride Carbon Dioxide Anion Gap BUN Creatinine Est GFR (CKD-EPI)AfAm Est GFR (CKD-EPI)NonAf POC Glucometer 322 Random Glucose Calcium Phosphorus Magnesium Total Bilirubin AST ALT Alkaline Phosphatase Creatine Kinase Troponin I B-Natriuretic Peptide Total Protein Albumin 08/22/18 08/22/18 08/22/18 16:00 16:00 21:49 WBC RBC Hgb Hct MCV MCH MCHC RDW Plt Count MPV Absolute Neuts (auto) Neutrophils % Lymphocytes % Monocytes % Eosinophils % Basophils % Nucleated RBC % PT with INR INR VBG pH 7.45 H POC VBG pCO2 32.2 L POC VBG pO2 35.0 VBG HCO3 22.1 L VBG O2 Sat (Luis) 71.8 VBG Base Excess -0.8 Sodium 142 Potassium 4.0 Chloride 108 H Carbon Dioxide 23 Anion Gap 11 BUN 50.7 H Creatinine 3.9 H Est GFR (CKD-EPI)AfAm 11.97 Est GFR (CKD-EPI)NonAf 10.33 POC Glucometer 458 Random Glucose 311 H* Calcium 8.4 L Phosphorus Magnesium 2.2 Total Bilirubin 0.3 AST 12 L ALT 15 Alkaline Phosphatase 53 Creatine Kinase 113 Troponin I 0.02 B-Natriuretic Peptide 497.5 H Total Protein 6.1 L Albumin 3.2 L 08/23/18 08/23/18 08/23/18 05:30 05:30 05:30 WBC 7.3 RBC 3.62 Hgb 11.3 Hct 34.8 MCV 96.0 MCH 31.2 MCHC 32.5 RDW 15.3 Plt Count 195 MPV 9.4 Absolute Neuts (auto) 6.5 Neutrophils % 89.9 H D Lymphocytes % 9.2 D Monocytes % 0.6 L D Eosinophils % 0.1 D Basophils % 0.2 Nucleated RBC % 0 PT with INR 22.50 H INR 1.89 H VBG pH POC VBG pCO2 POC VBG pO2 VBG HCO3 VBG O2 Sat (Luis) VBG Base Excess Sodium 136 Potassium 4.5 Chloride 108 H Carbon Dioxide 17 L Anion Gap 11 BUN 56.0 H Creatinine 4.0 H Est GFR (CKD-EPI)AfAm 11.61 Est GFR (CKD-EPI)NonAf 10.02 POC Glucometer Random Glucose 395 H* Calcium 8.1 L Phosphorus 3.5 Magnesium 2.1 Total Bilirubin AST ALT Alkaline Phosphatase Creatine Kinase Troponin I B-Natriuretic Peptide Total Protein Albumin 08/23/18 06:58 WBC RBC Hgb Hct MCV MCH MCHC RDW Plt Count MPV Absolute Neuts (auto) Neutrophils % Lymphocytes % Monocytes % Eosinophils % Basophils % Nucleated RBC % PT with INR INR VBG pH POC VBG pCO2 POC VBG pO2 VBG HCO3 VBG O2 Sat (Luis) VBG Base Excess Sodium Potassium Chloride Carbon Dioxide Anion Gap BUN Creatinine Est GFR (CKD-EPI)AfAm Est GFR (CKD-EPI)NonAf POC Glucometer 381 Random Glucose Calcium Phosphorus Magnesium Total Bilirubin AST ALT Alkaline Phosphatase Creatine Kinase Troponin I B-Natriuretic Peptide Total Protein Albumin Active Medications Generic Name Dose Route Start Last Admin Trade Name Freq PRN Reason Stop Dose Admin Ascorbic Acid 1,000 mg 08/23/18 10:00 Vitamin C - PO DAILY ERMA Budesonide/Formoterol Fumarate 2 puff 08/23/18 10:00 Symbicort 160/4.5mcg - IH BID ERMA Diltiazem HCl 120 mg 08/23/18 10:00 Cardizem Cd - PO DAILY ERMA Ferrous Sulfate 325 mg 08/22/18 22:00 08/22/18 21:40 Feosol - PO 325 mg BIDWM ERMA Administration Folic Acid 1 mg 08/23/18 10:00 Folic Acid - PO DAILY ERMA Furosemide 40 mg 08/23/18 10:00 Lasix - PO DAILY ERMA Hydralazine HCl 100 mg 08/22/18 21:15 08/23/18 06:55 Apresoline - PO 100 mg TID ERMA Administration Azithromycin 250 mg/ Dextrose 250 mls @ 250 mls/hr 08/23/18 10:00 IVPB DAILY ERMA Insulin Aspart 1 vial 08/22/18 22:00 08/23/18 07:15 Novolog Vial Sliding Scale - SQ 8 unit ACHS ERMA Administration Protocol Insulin Detemir 20 units 08/22/18 22:00 08/22/18 21:45 Levemir Vial SQ 20 unit HS ERMA Administration Methylprednisolone Sodium Succinate 40 mg 08/23/18 02:00 08/23/18 03:12 Solu-Medrol - IVPUSH 40 mg Q8H-IV ERMA Administration Pantoprazole Sodium 40 mg 08/23/18 10:00 Protonix - PO DAILY ERMA Sodium Bicarbonate 650 mg 08/22/18 22:00 08/22/18 22:29 Sodium Bicarbonate - PO 650 mg BID ERMA Administration Warfarin Sodium 7.5 mg 08/22/18 21:15 08/22/18 21:40 Coumadin - PO 7.5 mg DAILY@1800 ERMA Administration Interpretation Summary The left ventricle is normal in size. Left ventricular systolic function is normal. No regional wall motion abnormalities noted. Ejection Fraction = 60-65%. Grade I diastolic dysfunction, (abnormal relaxation pattern). Ratio E/E'= 10 The right ventricular systolic function is normal. The left atrial size is normal. Right atrial size is normal. There is mild mitral annular calcification. There is mild tricuspid regurgitation. There is mild aortic sclerosis.; Trace to mild pulmonic valvular regurgitation. There is no pericardial effusion. When compared to study dated 12/14/17, no significant changes Oneil Moser MD 08/23/2018 12:06 PM ASSESSMENT/PLAN: 77 y.o. F w/ PMHx. of HTN, NIDDM, Afib(s/p ablation on Coumadin), LLE DVT, CHFpEF, WI( s/p catherization), CKD Stage 4, GERD, and over active bladder presents after waking up this morning short of breath. #Reactive Airway Disease w/ known COPD (not on home O2) s/p Solumedrol 125 in ED c/w Solumedrol 40mg Q8H c/w [facility] Pulmonary Consult (Dr. Ramires) appreciated s/p Azithromycin x1, will dc per pulm recs QTc: 450 #Pulmonary HTN Pulm. Art Pressure 27mm Hg on Echo in November 2018---> 33mmHg on Chest CT in March Pt.s status and clinical symptoms improved too quickly for this to be the main component echo reviewed above #Afib w/ Subtherapeutic INR 1.74 EKG: NSR, Q waves in V1, QTc: 450 INR 1.74...1.89, Goal is between 2-3 c/w Diltiazem 120mg Daily c/w home dose Warfarin 7.5mg monitor INR consider increasing dose to 10 1 day per week to maintain acceptable range as Pt. vacillates between 7.5mg and 10mg doses. #CHFpEF BNP: 497.5 (lowest it has been on any admission) Echo( 12/17): EF: 60-65%, E/A reversal consistent with diastolic pathology, mild AR +TR + MR, pulmonary artery pressure 27 mm Hg echo reviewed above #CKD - baseline ~3.6 HgB: 12.3 stable #FEN no IVF, encourage PO intake as Pt. has been having decreased appetite, being mindful of an upper limit of 2L replete as needed Diabetic/Na restricted Diet #DVT Ppx. c/w Warfarin as above currently subtherapeutic #Dispo Med/Surg Pt.'s daughter left her number ([phone] [place] [phone]) for updates Visit type - Emergency Visit Emergency Visit: Yes ED Registration Date: 08/22/18 Care time: The patient presented to the Emergency Department on the above date and was hospitalized for further evaluation of their emergent condition. - New Patient This patient is new to me today: Yes Date on this admission: 08/23/18 - Critical Care Critical Care patient: No - Discharge Referral Referred to [facility] Med P.C.: No
[2018-08-23] MEDS ORDERED: AZITHROMYCIN IVPB 250 MG in DEXTROSE 5%-WATER - 250 ML IVPB SCH ×2 (10:00→18:00)
[2018-08-23] MEDS: FERROUS SO4 325 MG TABLET (FP) PO SCH ×2 (10:00→17:58)
[2018-08-23] MEDS: FOLIC ACID 1 MG TABLET (FP) PO SCH (10:30)
[2018-08-23] MEDS: FUROSEMIDE 40 MG TABLET (FP) PO SCH (10:30)
[2018-08-23] MEDS: PANTOPRAZOLE 40 MG TABLET (FP) PO SCH (10:30)
[2018-08-23] MEDS: SODIUM BICARBONATE 650 MG TABLET PO SCH ×2 (10:30→21:42)
--- NOTE | 2018-08-23 10:35 | EKG ---
Test Reason : Blood Pressure : / mmHG Vent. Rate : 066 BPM Atrial Rate : 066 BPM P-R Int : 158 ms QRS Dur : 082 ms QT Int : 430 ms P-R-T Axes : 046 -38 078 degrees QTc Int : 450 ms NORMAL SINUS RHYTHM LEFT AXIS DEVIATION ABNORMAL ECG WHEN COMPARED WITH ECG OF 08-MAR-2018 12:24, NO SIGNIFICANT CHANGE WAS FOUND Confirmed by ANDER BLOUNT MD ([id number]) on 08/23/2018 10:35:47 AM Referred By: Confirmed By:ANDER BLOUNT MD
[2018-08-23] MEDS: ASCORBIC ACID 500 MG TABLET (FP) PO SCH (10:43)
--- NOTE | 2018-08-23 12:06 | ECHO ---
Name: TAYLOR VICTOR Exam:Adult Echocardiogram Study Date: 08/23/2018 09:14 AM Age: 77 yrs Reason For Study: SOB PULMONARY HTN? Height: 70 in Weight: 198 lb BSA: 2.1 m2 MMode/2D Measurements & Calculations IVSd: 0.96 cm Ao root diam: 2.9 cm LVIDd: 4.5 cm LA dimension: 3.7 cm LVIDs: 3.0 cm LVPWd: 0.96 cm EDV(Teich): 92.5 ml LVOT diam: 2.1 cm ESV(Teich): 35.1 ml Doppler Measurements & Calculations MV E max singh: 60.2 cm/sec Ao V2 max: 155.1 cm/sec MV A max singh: 98.2 cm/sec Ao max P.6 mmHg MV E/A: 0.61 Ao V2 mean: 113.3 cm/sec MV dec time: 0.36 sec Ao mean P.7 mmHg Ao V2 VTI: 28.7 cm CHELSEY(I,D): 3.4 cm2 CHELSEY(V,D): 2.9 cm2 LV V1 max P.3 mmHg SV(LVOT): 96.8 ml LV V1 mean P.6 mmHg LV V1 max: 134.8 cm/sec LV V1 mean: 87.4 cm/sec LV V1 VTI: 28.6 cm TR max singh: 218.6 cm/sec Med Peak E' Singh: 6.1 cm/sec TR max P.0 mmHg Med E/e': 9.9 Lat Peak E' Singh: 5.4 cm/sec Lat E/e': 11.2 Procedure A complete two-dimensional transthoracic echocardiogram was performed (2D, M-mode, Doppler and color flow Doppler). Left Ventricle The left ventricle is normal in size. Left ventricular systolic function is normal. Ejection Fraction = 60- 65%. Grade I diastolic dysfunction, (abnormal relaxation pattern). Ratio E/E'= 10. No regional wall m otion abnormalities noted. Right Ventricle The right ventricle is normal size. The right ventricular systolic function is normal. RV systolic TD I is 18 cm/s. Atria The left atrial size is normal. Right atrial size is normal. Mitral Valve There is mild mitral annular calcification. There is no mitral regurgitation noted. Tricuspid Valve The tricuspid valve is normal in structure and function. There is mild tricuspid regurgitation. Aortic Valve There is mild aortic sclerosis.;. No aortic regurgitation is present. Pulmonic Valve The pulmonic valve is not well visualized. Trace to mild pulmonic valvular regurgitation. Great Vessels The aortic root is normal size. Pericardium/Pleura There is no pericardial effusion. Interpretation Summary The left ventricle is normal in size. Left ventricular systolic function is normal. No regional wall motion abnormalities noted. Ejection Fraction = 60-65%. Grade I diastolic dysfunction, (abnormal relaxation pattern). Ratio E/E'= 10 The right ventricular systolic function is normal. The left atrial size is normal. Right atrial size is normal. There is mild mitral annular calcification. There is mild tricuspid regurgitation. There is mild aortic sclerosis.; Trace to mild pulmonic valvular regurgitation. There is no pericardial effusion. When compared to study dated 12/14/17, no significant changes Oneil Moser MD 08/23/2018 12:06 PM
[2018-08-23] MEDS: BUDESONIDE/FORMETEROL FUMARATE 160/4.5 mcg INHALER IH SCH ×2 (12:47→22:57)
--- NOTE | 2018-08-23 13:39 | CON.PULM ---
Consult Consult Specialty:: PULM/CCM Referred by:: VERO Reason for Consultation:: SOB - History of Present Illness Chief Complaint: SOB History of Present Illness: Patient known to me from previous admissions. History of chronic Shortness of Breath (Multifactorial). CAD, LV Diastolic Dysfunction, Pulmonary HTN, Paroxysmal Atrial Fibrillation, CKD, HTN, DM, and Hyperlipidemia. On previous admissions I spoke to her outpatient Hair Blender that has performed an extensive w/up. Etiology of her symptoms are likely a combination of her cardio-pulmonary conditions. Admitted via the ER due to progressive SOB. Initially placed on NIPPV. Currently in NAD on NC O2. No travel history or sick contacts. No fever or chills. No hemoptysis or night sweats. 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 Cardio/Vascular: Yes: AFIB, CHF, HTN, Hyperlipdemia, Other (Atrial flutter s/p ablation, PAD) Pulmonary: Yes: COPD Renal/: Yes: Renal Inusuff (stage 4), Other (Overactive Bladder) Psych: Yes: Depression Endocrine: Yes: Diabetes Mellitus (initially on oral agents, now on insulin) - Past Surgical History Past Surgical History: Yes: Colonoscopy (polyps a few years ago), Hysterectomy ( fibroids), Tubal Ligation, Upper Endoscopy (neg 1+ yrs ago) - Alcohol/Substance Use Hx Alcohol Use: No - Smoking History Smoking history: Unknown if ever smoked Have you smoked in the past 12 months: No Aproximately how many cigarettes per day: 1 If you are a former smoker, when did you quit?: 1 year ago - Social History Usual Living Arrangement: With Child ADL: Family Assistance History of Recent Travel: No Home Medications - Allergies Allergies/Adverse Reactions: Allergies Allergy/AdvReac Type Severity Reaction Status Date / Time No Known Allergies Allergy Verified 08/22/18 14:41 - Home Medications Home Medications: Ambulatory Orders hydrALAZINE HCL [Apresoline -] 100 mg PO BID 01/28/17 Ferrous Sulfate 325 mg PO BID 02/02/17 Folic Acid 1 mg PO DAILY 12/09/17 Sodium Bicarbonate - 650 mg PO BID #40 tablet 12/11/17 Insulin (Levemir) [Levemir Vial] 20 units SQ HS 12/14/17 Ascorbic Acid [Vitamin C] 1,000 mg PO DAILY 03/08/18 Furosemide 40 mg PO DAILY 03/08/18 Warfarin Sodium [Coumadin] 7.5 mg PO HS 03/09/18 Diltiazem Cd [Cardizem Cd -] 120 mg PO DAILY 28 Days #28 cap.cd.24h 03/11/18 Family Disease History - Family Disease History Family Disease History: Diabetes: Grandparent, Mother, Sister (lung cancer), [place] : Sister Review of Systems - Review of Systems Constitutional: reports: Malaise. denies: Chills, Fever, Night Sweats, Unintentional Wgt. Loss Eyes: reports: No Symptoms HENT: reports: No Symptoms Neck: reports: No Symptoms Cardiovascular: reports: Shortness of Breath. denies: Chest Pain, Edema, Palpitations Respiratory: reports: Cough, SOB, SOB on Exertion. denies: Hemoptysis, Orthopnea, PND, Snoring, Wheezing Gastrointestinal: reports: No Symptoms Genitourinary: reports: No Symptoms Breasts: reports: No Symptoms Reported Musculoskeletal: reports: No Symptoms Integumentary: reports: No Symptoms Neurological: reports: No Symptoms Endocrine: reports: No Symptoms Hematology/Lymphatic: reports: No Symptoms Psychiatric: reports: No Symptoms Physical Exam Vital Sings: Vital Signs Temperature 98.9 F 08/23/18 12:37 Pulse Rate 77 08/23/18 12:37 Respiratory Rate 18 08/23/18 12:37 Blood Pressure 157/74 08/23/18 12:37 O2 Sat by Pulse Oximetry (%) 100 08/23/18 12:37 Constitutional: Yes: No Distress, Calm Eyes: Yes: Conjunctiva Clear, EOM Intact HENT: Yes: Atraumatic, Normocephalic Neck: Yes: Supple, Trachea Midline Cardiovascular: Yes: Regular Rate and Rhythm Respiratory: Yes: Cough, Diminished, On Nasal O2, SOB on Exertion. No: Accessory Muscle Use, Rales, Rhonchi, SOB, Stridor, Tachypnea, Wheezes ...Inspection: Yes: WNL ...Clubbing: No Gastrointestinal: Yes: Normal Bowel Sounds, Soft Musculoskeletal: Yes: WNL Extremities: Yes: WNL Edema: No Peripheral Pulses WNL: Yes Integumentary: Yes: WNL Neurological: Yes: WNL, Alert, Oriented ...Motor Strength: WNL Psychiatric: Yes: WNL, Alert, Oriented Labs: CBC, BMP 08/23/18 05:30 08/23/18 05:30 Imaging - Results Chest X-ray: Report Reviewed, Image Reviewed Problem List - Problems (1) Afib Code(s): I48.91 - UNSPECIFIED ATRIAL FIBRILLATION Qualifiers: Atrial fibrillation type: unspecified Qualified Code(s): I48.91 - Unspecified atrial fibrillation (2) Anemia Code(s): D64.9 - ANEMIA, UNSPECIFIED (3) Asthma Code(s): J45.909 - UNSPECIFIED ASTHMA, UNCOMPLICATED (4) CKD (chronic kidney disease) Code(s): N18.9 - CHRONIC KIDNEY DISEASE, UNSPECIFIED (5) COPD (chronic obstructive pulmonary disease) Code(s): J44.9 - CHRONIC OBSTRUCTIVE PULMONARY DISEASE, UNSPECIFIED Qualifiers: COPD type: chronic bronchitis (6) Diastolic CHF Code(s): I50.30 - UNSPECIFIED DIASTOLIC (CONGESTIVE) HEART FAILURE Qualifiers: Heart failure chronicity: chronic Qualified Code(s): I50.32 - Chronic diastolic (congestive) heart failure (7) IDDM (insulin dependent diabetes mellitus) Code(s): E11.9 - TYPE 2 DIABETES MELLITUS WITHOUT COMPLICATIONS; Z79.4 - ENTERPRISE SYSTEMS ENGINEER (CURRENT) USE OF INSULIN (8) Migraine headache Code(s): G43.909 - MIGRAINE, UNSP, NOT INTRACTABLE, WITHOUT STATUS MIGRAINOSUS Qualifiers: Migraine type: other Intractability: not intractable (9) Paroxysmal atrial fibrillation with RVR Code(s): I48.0 - PAROXYSMAL ATRIAL FIBRILLATION (10) Shortness of breath Code(s): R06.02 - SHORTNESS OF BREATH (11) CAD (coronary artery disease) Code(s): I25.10 - ATHSCL HEART DISEASE OF [place] CORONARY ARTERY W/O ANG PCTRS (12) CHF (congestive heart failure) Code(s): I50.9 - HEART FAILURE, UNSPECIFIED (13) Depression Code(s): F32.9 - MAJOR DEPRESSIVE DISORDER, SINGLE EPISODE, UNSPECIFIED Qualifiers: Depression Type: unspecified Qualified Code(s): F32.9 - Major depressive disorder, single episode, unspecified (14) Gastroesophageal reflux disease Code(s): K21.9 - GASTRO-ESOPHAGEAL REFLUX DISEASE WITHOUT ESOPHAGITIS (15) History of DVT (deep vein thrombosis) Code(s): Z86.718 - PERSONAL HISTORY OF OTHER VENOUS THROMBOSIS AND EMBOLISM (16) Hyperlipidemia Code(s): E78.5 - HYPERLIPIDEMIA, UNSPECIFIED Qualifiers: Hyperlipidemia type: pure hypercholesterolemia Qualified Code(s): E78.00 - Pure hypercholesterolemia, unspecified; E78.0 - Pure hypercholesterolemia (17) Hypertension Code(s): I10 - ESSENTIAL (PRIMARY) HYPERTENSION Qualifiers: Hypertension type: essential hypertension Qualified Code(s): I10 - Essential (primary) hypertension (18) Peripheral arterial disease Code(s): I73.9 - PERIPHERAL VASCULAR DISEASE, UNSPECIFIED (19) Type 2 diabetes mellitus Code(s): E11.9 - TYPE 2 DIABETES MELLITUS WITHOUT COMPLICATIONS Qualifiers: Diabetes mellitus complication status: with circulatory complication (20) Pulmonary hypertension Code(s): I27.2 - OTHER SECONDARY PULMONARY HYPERTENSION * DO NOT USE * Assessment/Plan Anticipate short course of Medrol & BD TX Noted Zithromax: will D/C for now NC O2 as needed NIPPV if WOB increases Will follow Thank you. Dr Garner
[2018-08-23] MEDS: WARFARIN NA 7.5 MG TABLET (FP) PO SCH (18:06)
[2018-08-23] MEDS ORDERED: PT OWN MED DRAWER 7, Y5N ONE (21:16)
[2018-08-23] MEDS: INSULIN (LEVEMIR) 100 UNITS/ML UNITS SQ SCH (21:49)
--- NOTE | 2018-08-23 21:56 | PN ---
Teaching Attending Note Name of Resident: Tashi Hendrickson ATTENDING PHYSICIAN STATEMENT I saw and evaluated the patient. I reviewed the resident's note and discussed the case with the resident. I agree with the resident's findings and plan as documented. SUBJECTIVE: Patient is a 77yo female presented with shortness of breath. having slight difficulty with breathing on oxygen OBJECTIVE: Vital Signs Temperature 98.8 F 08/23/18 17:00 Pulse Rate 73 08/23/18 17:00 Respiratory Rate 18 08/23/18 18:09 Blood Pressure 160/68 08/23/18 17:00 O2 Sat by Pulse Oximetry (%) 100 08/23/18 17:53 GENERAL: Awake, alert, and fully oriented, on NC in no acute distress. HEAD: Normal with no signs of trauma. EYES: Extraocular movements intact, sclera anicteric, conjunctiva clear. EARS, NOSE, THROAT: Ears normal, oropharynx clear without exudates. MMM. NECK: Normal range of motion, supple without lymphadenopathy, JVD, or masses. LUNGS: Breath sounds equal, clear to auscultation bilaterally. No wheezes, and no crackles. with slight difficulty with breathing HEART: Regular rate and rhythm, normal S1 and S2 without murmur ABDOMEN: Soft, nontender, not distended, normoactive bowel sounds, no guarding, no rebound, no masses. EXTREMITIES: 2+ radial pulses, warm, well-perfused. No cyanosis. No clubbing. No peripheral edema. NEUROLOGICAL: Normal speech. Gait not assesed PSYCHIATRIC: Cooperative. Good eye contact. Appropriate mood and affect. SKIN: Warm, dry, normal turgor, no rashes or lesions noted CBCD WBC 7.3 K/mm3 (4.0-10.0) 08/23/18 05:30 RBC 3.62 M/mm3 (3.60-5.2) 08/23/18 05:30 Hgb 11.3 GM/dL (10.7-15.3) 08/23/18 05:30 Hct 34.8 % (32.4-45.2) 08/23/18 05:30 MCV 96.0 fl (80-96) 08/23/18 05:30 MCHC 32.5 g/dl (32.0-36.0) 08/23/18 05:30 RDW 15.3 % (11.6-15.6) 08/23/18 05:30 Plt Count 195 K/MM3 (134-434) 08/23/18 05:30 MPV 9.4 fl (7.5-11.1) 08/23/18 05:30 CMP Sodium 136 mmol/L (136-145) 08/23/18 05:30 Potassium 4.5 mmol/L (3.5-5.1) 08/23/18 05:30 Chloride 108 mmol/L (98-107) H 08/23/18 05:30 Carbon Dioxide 17 mmol/L (21-32) L 08/23/18 05:30 Anion Gap 11 MMOL/L (8-16) 08/23/18 05:30 BUN 56.0 mg/dL (7-18) H 08/23/18 05:30 Creatinine 4.0 mg/dL (0.55-1.3) H 08/23/18 05:30 Random Glucose 395 mg/dL (74-106) H* 08/23/18 05:30 Calcium 8.1 mg/dL (8.5-10.1) L 08/23/18 05:30 Total Bilirubin 0.3 mg/dL (0.2-1) 08/22/18 16:00 AST 12 U/L (15-37) L 08/22/18 16:00 ALT 15 U/L (13-61) 08/22/18 16:00 Alkaline Phosphatase 53 U/L (45-117) 08/22/18 16:00 Total Protein 6.1 g/dl (6.4-8.2) L 08/22/18 16:00 Albumin 3.2 g/dl (3.4-5.0) L 08/22/18 16:00 CARDIAC ENZYMES Creatine Kinase 113 U/L (26-192) 08/22/18 16:00 Troponin I 0.02 ng/ml (0.00-0.05) 08/22/18 16:00 Current Medications Generic Name Dose Route Start Last Admin Trade Name Freq PRN Reason Stop Dose Admin Ascorbic Acid 1,000 mg 08/23/18 10:00 08/23/18 10:43 Vitamin C - PO 1,000 mg DAILY [facility] Administration Budesonide/Formoterol Fumarate 2 puff 08/23/18 10:00 08/23/18 12:47 Symbicort 160/4.5mcg - IH Not Given BID [facility] Diltiazem HCl 120 mg 08/23/18 10:00 08/23/18 10:30 Cardizem Cd - PO 120 mg DAILY [facility] Administration Ferrous Sulfate 325 mg 08/22/18 22:00 08/23/18 17:58 Feosol - PO 325 mg BIDWM [facility] Administration Folic Acid 1 mg 08/23/18 10:00 08/23/18 10:30 Folic Acid - PO 1 mg DAILY [facility] Administration Furosemide 40 mg 08/23/18 10:00 08/23/18 10:30 Lasix - PO 40 mg DAILY [facility] Administration Hydralazine HCl 100 mg 08/22/18 21:15 08/23/18 15:14 Apresoline - PO Not Given TID [facility] Insulin Aspart 1 vial 08/22/18 22:00 08/23/18 21:48 Novolog Vial Sliding Scale - SQ 6 unit ACHS [facility] Administration Protocol Insulin Detemir 20 units 08/22/18 22:00 08/23/18 21:49 Levemir Vial SQ 20 unit HS [facility] Administration Methylprednisolone Sodium Succinate 40 mg 08/23/18 02:00 08/23/18 18:06 Solu-Medrol - IVPUSH 40 mg Q8H-IV [facility] Administration Pantoprazole Sodium 40 mg 08/23/18 10:00 08/23/18 10:30 Protonix - PO 40 mg DAILY [facility] Administration Sodium Bicarbonate 650 mg 08/22/18 22:00 08/23/18 21:42 Sodium Bicarbonate - PO 650 mg BID [facility] Administration Warfarin Sodium 7.5 mg 08/22/18 21:15 08/23/18 18:06 Coumadin - PO 7.5 mg DAILY@1800 [facility] Administration Home Medications Medication Instructions Recorded hydrALAZINE HCL [Apresoline -] 100 mg PO BID 01/28/17 Ferrous Sulfate 325 mg PO BID 02/02/17 Folic Acid 1 mg PO DAILY 12/09/17 Sodium Bicarbonate - 650 mg PO BID #40 tablet 12/11/17 Insulin (Levemir) [Levemir Vial] 20 units SQ HS 12/14/17 Ascorbic Acid [Vitamin C] 1,000 mg PO DAILY 03/08/18 Furosemide 40 mg PO DAILY 03/08/18 Warfarin Sodium [Coumadin] 7.5 mg PO HS 03/09/18 Diltiazem Cd [Cardizem Cd -] 120 mg PO DAILY 28 Days #28 03/11/18 cap.cd.24h Echo( 12/17): EF: 60-65%, E/A reversal consistent with diastolic pathology, mild AR +TR + MR, pulmonary artery pressure 27 mm Hg ASSESSMENT AND PLAN: 77 y.o. F w/ PMHx. of HTN, NIDDM, Afib(s/p ablation on Coumadin), LLE DVT, CHFpEF, [place]( s/p catherization), CKD Stage 4, GERD, and over active bladder presents after waking up this morning short of breath. #acute COPD exacerbation ; pulm.consult, on solumedrol, on nebs treatment continue #Afib w/ Subtherapeutic INR 1.74 on coumadin 7.5mg continue #Pulmonary HTN continue home meds # Diastolic CHF continue lasix #CKD with baseline 3.6--> now is 4.0 #DVT Ppx. with coumadin Pt.'s daughter left her number ([phone]) for updates
[2018-08-23] MEDS: hydrALAZINE HCL 25 MG TABLET (FP) PO SCH (22:57)
[2018-08-24] MEDS: methylPREDNISolone NA SUCC 40 MG/1 ML VIAL IVPUSH SCH ×3 (02:51→18:30)
[2018-08-24] MEDS: hydrALAZINE HCL 25 MG TABLET (FP) PO SCH (05:59)
[2018-08-24] MEDS: INSULIN SLIDING SCALE (NOVOLOG) 1 VIAL SQ SCH ×4 (06:04→23:32)
[2018-08-24 06:44] LABS: BASO % 0.1 % (0-2.0); HEMATOCRIT 34.2 % (32.4-45.2); HEMOGLOBIN 11.1 GM/dL (10.7-15.3); MCH 31.1 pg (25.7-33.7); MCHC 32.4 g/dl (32.0-36.0); MEAN CELL VOLUME 95.7 fl (80-96); MEAN PLT VOLUME 9.5 fl (7.5-11.1); MONO % 1.3 % (3.8-10.2); NEUT % 92.6 % (42.8-82.8); PLATELET COUNT 201 K/MM3 (134-434); RBC 3.58 M/mm3 (3.60-5.2); RDW 15.5 % (11.6-15.6); WHITE BLOOD COUNT 15.8 K/mm3 (4.0-10.0)
[2018-08-24 07:06] LABS: BLOOD UREA NITROGEN 67.1 mg/dL (7-18); CALCIUM 8.5 mg/dL (8.5-10.1); CREATININE 3.8 mg/dL (0.55-1.3); POTASSIUM 4.4 mmol/L (3.5-5.1)
[2018-08-24 07:07] LABS: INR 3.17 (0.83-1.09); PROTHROMBIN TIME (PATIENT) 37.9 SEC (9.7-13.0)
[2018-08-24] MEDS: FERROUS SO4 325 MG TABLET (FP) PO SCH ×2 (08:14→18:30)
[2018-08-24] MEDS: FUROSEMIDE 40 MG TABLET (FP) PO SCH (09:45)
[2018-08-24] MEDS: ASCORBIC ACID 500 MG TABLET (FP) PO SCH (09:45)
[2018-08-24] MEDS: FOLIC ACID 1 MG TABLET (FP) PO SCH (09:45)
[2018-08-24] MEDS: PANTOPRAZOLE 40 MG TABLET (FP) PO SCH (09:45)
[2018-08-24] MEDS: SODIUM BICARBONATE 650 MG TABLET PO SCH ×2 (09:45→23:32)
[2018-08-24] MEDS: BUDESONIDE/FORMETEROL FUMARATE 160/4.5 mcg INHALER IH SCH ×2 (09:45→23:32)
--- NOTE | 2018-08-24 11:55 | PN ---
Progress Note, Physician History of Present Illness: PULMONARY ALERT,FEELING BETTER,LESS DYSPNEIC,-CP - Current Medication List Current Medications: Active Medications Ascorbic Acid (Vitamin C -) 1,000 mg PO DAILY [facility] Last Admin: 08/24/18 09:45 Dose: 1,000 mg Budesonide/Formoterol Fumarate (Symbicort 160/4.5mcg -) 2 puff IH BID [facility] Last Admin: 08/24/18 09:45 Dose: 2 puff Diltiazem HCl (Cardizem Cd -) 120 mg PO DAILY [facility] Last Admin: 08/24/18 09:45 Dose: 120 mg Ferrous Sulfate (Feosol -) 325 mg PO BIDWM [facility] Last Admin: 08/24/18 08:14 Dose: 325 mg Folic Acid (Folic Acid -) 1 mg PO DAILY [facility] Last Admin: 08/24/18 09:45 Dose: 1 mg Furosemide (Lasix -) 40 mg PO DAILY [facility] Last Admin: 08/24/18 09:45 Dose: 40 mg Hydralazine HCl (Apresoline -) 100 mg PO TID [facility] Last Admin: 08/24/18 05:59 Dose: 100 mg Insulin Aspart (Novolog Vial Sliding Scale -) 1 vial SQ [facility]; Protocol Last Admin: 08/24/18 11:48 Dose: 8 unit Insulin Detemir (Levemir Vial) 20 units SQ HS [facility] Last Admin: 08/23/18 21:49 Dose: 20 unit Methylprednisolone Sodium Succinate (Solu-Medrol -) 40 mg IVPUSH Q8H-IV [facility] Last Admin: 08/24/18 09:45 Dose: 40 mg Pantoprazole Sodium (Protonix -) 40 mg PO DAILY [facility] Last Admin: 08/24/18 09:45 Dose: 40 mg Sodium Bicarbonate (Sodium Bicarbonate -) 650 mg PO BID [facility] Last Admin: 08/24/18 09:45 Dose: 650 mg Warfarin Sodium (Coumadin -) 7.5 mg PO DAILY@1800 [facility] Last Admin: 08/23/18 18:06 Dose: 7.5 mg - Objective Vital Signs: Vital Signs Temperature 99.0 F 08/24/18 06:00 Pulse Rate 69 08/24/18 06:00 Respiratory Rate 20 08/24/18 06:00 Blood Pressure 158/68 08/24/18 06:00 O2 Sat by Pulse Oximetry (%) 96 08/24/18 09:00 Constitutional: Yes: Well Nourished, Calm Eyes: Yes: WNL HENT: Yes: WNL Neck: Yes: WNL Cardiovascular: Yes: Pulse Irregular, S1, S2 Respiratory: Yes: Diminished Gastrointestinal: Yes: Normal Bowel Sounds, Soft Extremities: Yes: WNL Edema: No Labs: CBC, BMP 08/24/18 05:45 08/24/18 05:45 INR, PTT INR 3.17 (0.83-1.09) H 08/24/18 05:45 Assessment/Plan Problem List - Problems (1) Afib Code(s): I48.91 - UNSPECIFIED ATRIAL FIBRILLATION Qualifiers: Atrial fibrillation type: unspecified Qualified Code(s): I48.91 - Unspecified atrial fibrillation (2) Anemia Code(s): D64.9 - ANEMIA, UNSPECIFIED (3) Asthma Code(s): J45.909 - UNSPECIFIED ASTHMA, UNCOMPLICATED (4) CKD (chronic kidney disease) Code(s): N18.9 - CHRONIC KIDNEY DISEASE, UNSPECIFIED (5) COPD (chronic obstructive pulmonary disease) Code(s): J44.9 - CHRONIC OBSTRUCTIVE PULMONARY DISEASE, UNSPECIFIED Qualifiers: COPD type: chronic bronchitis (6) Diastolic CHF Code(s): I50.30 - UNSPECIFIED DIASTOLIC (CONGESTIVE) HEART FAILURE Qualifiers: Heart failure chronicity: chronic Qualified Code(s): I50.32 - Chronic diastolic (congestive) heart failure (7) IDDM (insulin dependent diabetes mellitus) Code(s): E11.9 - TYPE 2 DIABETES MELLITUS WITHOUT COMPLICATIONS; Z79.4 - [facility] (CURRENT) USE OF INSULIN (8) Migraine headache Code(s): G43.909 - MIGRAINE, UNSP, NOT INTRACTABLE, WITHOUT STATUS MIGRAINOSUS Qualifiers: Migraine type: other Intractability: not intractable (9) Paroxysmal atrial fibrillation with RVR Code(s): I48.0 - PAROXYSMAL ATRIAL FIBRILLATION (10) Shortness of breath Code(s): R06.02 - SHORTNESS OF BREATH (11) CAD (coronary artery disease) Code(s): I25.10 - ATHSCL HEART DISEASE OF [place] CORONARY ARTERY W/O ANG PCTRS (12) CHF (congestive heart failure) Code(s): I50.9 - HEART FAILURE, UNSPECIFIED (13) Depression Code(s): F32.9 - MAJOR DEPRESSIVE DISORDER, SINGLE EPISODE, UNSPECIFIED Qualifiers: Depression Type: unspecified Qualified Code(s): F32.9 - Major depressive disorder, single episode, unspecified (14) Gastroesophageal reflux disease Code(s): K21.9 - GASTRO-ESOPHAGEAL REFLUX DISEASE WITHOUT ESOPHAGITIS (15) History of DVT (deep vein thrombosis) Code(s): Z86.718 - PERSONAL HISTORY OF OTHER VENOUS THROMBOSIS AND EMBOLISM (16) Hyperlipidemia Code(s): E78.5 - HYPERLIPIDEMIA, UNSPECIFIED Qualifiers: Hyperlipidemia type: pure hypercholesterolemia Qualified Code(s): E78.00 - Pure hypercholesterolemia, unspecified; E78.0 - Pure hypercholesterolemia (17) Hypertension Code(s): I10 - ESSENTIAL (PRIMARY) HYPERTENSION Qualifiers: Hypertension type: essential hypertension Qualified Code(s): I10 - Essential (primary) hypertension (18) Peripheral arterial disease Code(s): I73.9 - PERIPHERAL VASCULAR DISEASE, UNSPECIFIED (19) Type 2 diabetes mellitus Code(s): E11.9 - TYPE 2 DIABETES MELLITUS WITHOUT COMPLICATIONS Qualifiers: Diabetes mellitus complication status: with circulatory complication (20) Pulmonary hypertension Code(s): I27.2 - OTHER SECONDARY PULMONARY HYPERTENSION * DO NOT USE * Assessment/Plan short course of Medrol Inhaled BD NC O2 as needed NIPPV if WOB increases DR GOULD
[2018-08-24 12:45] LABS: ANISOCYTOSIS 1+; MACROCYTOSIS 1+; PLATELET ESTIMATE NORMAL
--- NOTE | 2018-08-24 13:04 | PN ---
Teaching Attending Note Name of Resident: Marco A Raphael ATTENDING PHYSICIAN STATEMENT I saw and evaluated the patient. I reviewed the resident's note and discussed the case with the resident. I agree with the resident's findings and plan as documented. SUBJECTIVE: Patient is feeling better today with no acute distress on NC OBJECTIVE: Vital Signs Temperature 99.0 F 08/24/18 06:00 Pulse Rate 69 08/24/18 06:00 Respiratory Rate 20 08/24/18 06:00 Blood Pressure 158/68 08/24/18 06:00 O2 Sat by Pulse Oximetry (%) 96 08/24/18 09:00 GENERAL: Awake, alert, and fully oriented, on NC in no acute distress. HEAD: Normal with no signs of trauma. EYES: Extraocular movements intact, sclera anicteric, conjunctiva clear. EARS, NOSE, THROAT: Ears normal, oropharynx clear without exudates. MMM. NECK: Normal range of motion, supple without lymphadenopathy, JVD, or masses. LUNGS: decreased Breath sounds bl , positive for rhonchi HEART: Regular rate and rhythm, normal S1 and S2 without murmur ABDOMEN: Soft, nontender, not distended, normoactive bowel sounds, no guarding, no rebound, no masses. EXTREMITIES: 2+ radial pulses, warm, well-perfused. No cyanosis. No clubbing. No peripheral edema. NEUROLOGICAL: Normal speech. Gait not assesed PSYCHIATRIC: Cooperative. Good eye contact. Appropriate mood and affect. SKIN: Warm, dry, normal turgor, no rashes or lesions noted CBCD WBC 15.8 K/mm3 (4.0-10.0) H 08/24/18 05:45 RBC 3.58 M/mm3 (3.60-5.2) L 08/24/18 05:45 Hgb 11.1 GM/dL (10.7-15.3) 08/24/18 05:45 Hct 34.2 % (32.4-45.2) 08/24/18 05:45 MCV 95.7 fl (80-96) 08/24/18 05:45 MCHC 32.4 g/dl (32.0-36.0) 08/24/18 05:45 RDW 15.5 % (11.6-15.6) 08/24/18 05:45 Plt Count 201 K/MM3 (134-434) 08/24/18 05:45 MPV 9.5 fl (7.5-11.1) 08/24/18 05:45 CMP Sodium 140 mmol/L (136-145) 08/24/18 05:45 Potassium 4.4 mmol/L (3.5-5.1) 08/24/18 05:45 Chloride 110 mmol/L (98-107) H 08/24/18 05:45 Carbon Dioxide 20 mmol/L (21-32) L 08/24/18 05:45 Anion Gap 10 MMOL/L (8-16) 08/24/18 05:45 BUN 67.1 mg/dL (7-18) H 08/24/18 05:45 Creatinine 3.8 mg/dL (0.55-1.3) H 08/24/18 05:45 Random Glucose 190 mg/dL (74-106) H 08/24/18 05:45 Calcium 8.5 mg/dL (8.5-10.1) 08/24/18 05:45 Total Bilirubin 0.3 mg/dL (0.2-1) 08/22/18 16:00 AST 12 U/L (15-37) L 08/22/18 16:00 ALT 15 U/L (13-61) 08/22/18 16:00 Alkaline Phosphatase 53 U/L (45-117) 08/22/18 16:00 Total Protein 6.1 g/dl (6.4-8.2) L 08/22/18 16:00 Albumin 3.2 g/dl (3.4-5.0) L 08/22/18 16:00 CARDIAC ENZYMES Creatine Kinase 113 U/L (26-192) 08/22/18 16:00 Troponin I 0.02 ng/ml (0.00-0.05) 08/22/18 16:00 Current Medications Generic Name Dose Route Start Last Admin Trade Name Kamleshq PRN Reason Stop Dose Admin Ascorbic Acid 1,000 mg 08/23/18 10:00 08/24/18 09:45 Vitamin C - PO 1,000 mg DAILY [facility] Administration Budesonide/Formoterol Fumarate 2 puff 08/23/18 10:00 08/24/18 09:45 Symbicort 160/4.5mcg - IH 2 puff BID [facility] Administration Diltiazem HCl 120 mg 08/23/18 10:00 08/24/18 09:45 Cardizem Cd - PO 120 mg DAILY [facility] Administration Ferrous Sulfate 325 mg 08/22/18 22:00 08/24/18 08:14 Feosol - PO 325 mg BIDWM [facility] Administration Folic Acid 1 mg 08/23/18 10:00 08/24/18 09:45 Folic Acid - PO 1 mg DAILY [facility] Administration Furosemide 40 mg 08/23/18 10:00 08/24/18 09:45 Lasix - PO 40 mg DAILY [facility] Administration Hydralazine HCl 100 mg 08/23/18 22:30 08/24/18 05:59 Apresoline - PO 100 mg TID [facility] Administration Insulin Aspart 1 vial 08/22/18 22:00 08/24/18 11:48 Novolog Vial Sliding Scale - SQ 8 unit ACHS [facility] Administration Protocol Insulin Detemir 20 units 08/22/18 22:00 08/23/18 21:49 Levemir Vial SQ 20 unit HS [facility] Administration Methylprednisolone Sodium Succinate 40 mg 08/23/18 02:00 08/24/18 09:45 Solu-Medrol - IVPUSH 40 mg Q8H-IV [facility] Administration Pantoprazole Sodium 40 mg 08/23/18 10:00 08/24/18 09:45 Protonix - PO 40 mg DAILY [facility] Administration Sodium Bicarbonate 650 mg 08/22/18 22:00 08/24/18 09:45 Sodium Bicarbonate - PO 650 mg BID [facility] Administration Warfarin Sodium 5 mg 08/24/18 13:03 Coumadin - PO DAILY@1800 [facility] Home Medications Medication Instructions Recorded hydrALAZINE HCL [Apresoline -] 100 mg PO BID 01/28/17 Ferrous Sulfate 325 mg PO BID 02/02/17 Folic Acid 1 mg PO DAILY 12/09/17 Sodium Bicarbonate - 650 mg PO BID #40 tablet 12/11/17 Insulin (Levemir) [Levemir Vial] 20 units SQ HS 12/14/17 Ascorbic Acid [Vitamin C] 1,000 mg PO DAILY 03/08/18 Furosemide 40 mg PO DAILY 03/08/18 Warfarin Sodium [Coumadin] 7.5 mg PO HS 03/09/18 Diltiazem Cd [Cardizem Cd -] 120 mg PO DAILY 28 Days #28 03/11/18 cap.cd.24h Echo( 12/17): EF: 60-65%, E/A reversal consistent with diastolic pathology, mild AR +TR + MR, pulmonary artery pressure 27 mm Hg ASSESSMENT AND PLAN: 77 y.o. F w/ PMHx. of HTN, NIDDM, Afib(s/p ablation on Coumadin), LLE DVT, CHFpEF, [place]( s/p catherization), CKD Stage 4, GERD, and over active bladder presents after waking up this morning short of breath. #acute COPD exacerbation ; pulm.consult, on solumedrol, on nebs treatment continue #Afib w/ Subtherapeutic INR 1.74 --3.7 today ,will reduced the dose of coumadin from 7.5mg to 5.0 , will monitor #Pulmonary HTN continue home meds # Diastolic CHF continue lasix #CKD with baseline 3.6--> 4.0 -->3.8 today #DVT Ppx. with coumadin Pt.'s daughter left her number ([phone] [place] [phone]) for updates PT evalaution , pre and post oxygen for am
--- NOTE | 2018-08-24 13:27 | PN ---
Physical Exam: SUBJECTIVE: Patient seen and examined at bed side , breathing is better on 2 L o2 , no acute events over night. denies chest pain , cough , orthopnea or dyspnea. OBJECTIVE: Vital Signs Period Temp Pulse Resp BP Sys/Renee Pulse Ox Last 24 Hr 98.3 F-99.0 F 69-75 18-20 146-165/55-68 96-100 GENERAL: Awake, alert, and fully oriented, in no acute distress. HEAD: Normal with no signs of trauma. EYES: Extraocular movements intact, sclera anicteric, conjunctiva clear. EARS, NOSE, THROAT: Ears normal, nares patent, oropharynx clear without exudates. Moist mucous membranes. NECK: Normal range of motion, supple without lymphadenopathy, JVD, or masses. LUNGS: Breath sounds equal, clear to auscultation bilaterally. No wheezes, and no crackles. No accessory muscle use. HEART: Regular rate and rhythm, normal S1 and S2 without murmur ABDOMEN: Soft, nontender, not distended, normoactive bowel sounds, no guarding, no rebound, no masses. MUSCULOSKELETAL: Normal range of motion at all joints. No bony deformities or tenderness. No CVA tenderness. UPPER EXTREMITIES: 2+ radial pulses, warm, well-perfused. No cyanosis. No clubbing. No peripheral edema. LOWER EXTREMITIES: Warm, well-perfused. No calf tenderness. No peripheral edema. NEUROLOGICAL: Normal speech. Gait not observed PSYCHIATRIC: Cooperative. SKIN: Warm, dry, normal turgor, Laboratory Results - last 24 hr 08/23/18 08/23/18 08/24/18 17:15 21:47 05:45 WBC RBC Hgb Hct MCV MCH MCHC RDW Plt Count MPV Absolute Neuts (auto) Neutrophils % Lymphocytes % Monocytes % Eosinophils % Basophils % Nucleated RBC % PT with INR 37.90 H INR 3.17 H Sodium Potassium Chloride Carbon Dioxide Anion Gap BUN Creatinine Est GFR (CKD-EPI)AfAm Est GFR (CKD-EPI)NonAf POC Glucometer 300 324 Random Glucose Calcium 08/24/18 08/24/18 08/24/18 05:45 05:45 06:03 WBC 15.8 H RBC 3.58 L Hgb 11.1 Hct 34.2 MCV 95.7 MCH 31.1 MCHC 32.4 RDW 15.5 Plt Count 201 MPV 9.5 Absolute Neuts (auto) 14.6 H Neutrophils % 92.6 H Lymphocytes % 6.0 L D Monocytes % 1.3 L D Eosinophils % 0.0 D Basophils % 0.1 Nucleated RBC % 0 PT with INR INR Sodium 140 Potassium 4.4 Chloride 110 H Carbon Dioxide 20 L Anion Gap 10 BUN 67.1 H Creatinine 3.8 H Est GFR (CKD-EPI)AfAm 12.35 Est GFR (CKD-EPI)NonAf 10.66 POC Glucometer 200 Random Glucose 190 H Calcium 8.5 08/24/18 11:22 WBC RBC Hgb Hct MCV MCH MCHC RDW Plt Count MPV Absolute Neuts (auto) Neutrophils % Lymphocytes % Monocytes % Eosinophils % Basophils % Nucleated RBC % PT with INR INR Sodium Potassium Chloride Carbon Dioxide Anion Gap BUN Creatinine Est GFR (CKD-EPI)AfAm Est GFR (CKD-EPI)NonAf POC Glucometer 384 Random Glucose Calcium Active Medications Generic Name Dose Route Start Last Admin Trade Name Freq PRN Reason Stop Dose Admin Ascorbic Acid 1,000 mg 08/23/18 10:00 08/24/18 09:45 Vitamin C - PO 1,000 mg DAILY [facility] Administration Budesonide/Formoterol Fumarate 2 puff 08/23/18 10:00 08/24/18 09:45 Symbicort 160/4.5mcg - IH 2 puff BID [facility] Administration Diltiazem HCl 120 mg 08/23/18 10:00 08/24/18 09:45 Cardizem Cd - PO 120 mg DAILY [facility] Administration Ferrous Sulfate 325 mg 08/22/18 22:00 08/24/18 08:14 Feosol - PO 325 mg BIDWM [facility] Administration Folic Acid 1 mg 08/23/18 10:00 08/24/18 09:45 Folic Acid - PO 1 mg DAILY [facility] Administration Furosemide 40 mg 08/23/18 10:00 08/24/18 09:45 Lasix - PO 40 mg DAILY [facility] Administration Hydralazine HCl 100 mg 08/23/18 22:30 08/24/18 05:59 Apresoline - PO 100 mg TID [facility] Administration Insulin Aspart 1 vial 08/22/18 22:00 08/24/18 11:48 Novolog Vial Sliding Scale - SQ 8 unit ACHS [facility] Administration Protocol Insulin Detemir 20 units 08/22/18 22:00 08/23/18 21:49 Levemir Vial SQ 20 unit HS [facility] Administration Methylprednisolone Sodium Succinate 40 mg 08/23/18 02:00 08/24/18 09:45 Solu-Medrol - IVPUSH 40 mg Q8H-IV [facility] Administration Pantoprazole Sodium 40 mg 08/23/18 10:00 08/24/18 09:45 Protonix - PO 40 mg DAILY [facility] Administration Sodium Bicarbonate 650 mg 08/22/18 22:00 08/24/18 09:45 Sodium Bicarbonate - PO 650 mg BID [facility] Administration Warfarin Sodium 5 mg 08/24/18 18:00 Coumadin - PO DAILY@1800 [facility] ASSESSMENT/PLAN: 77 y.o. F w/ PMHx. of HTN, NIDDM, Afib(s/p ablation on Coumadin), LLE DVT, CHFpEF, [place]( s/p catherization), CKD Stage 4, GERD, and over active bladder presents after waking up this morning short of breath. #acute hypoxic respiratory failure due to COPD exacerbation (not on home O2) * c/w Solumedrol 40mg Q8H, Duonebs * Pulmonary Consulted (Dr. Ramires) appreciated * s/p Azithromycin x1, will dc per pulm recs #Pulmonary HTN * Pulm. Art Pressure 27mm Hg on Echo in November 2018---> 33mmHg on Chest CT in March * Pt.s status and clinical symptoms improved too quickly for this to be the main component * echo reviewed above #Afib w/ Subtherapeutic INR 1.74 * EKG: NSR, Q waves in V1, QTc: 450 * INR 1.74...1.89,3.17 , Goal is between 2-3 * c/w Diltiazem 120mg Daily * decrease home dose Warfarin 7.5mg to 5 * monitor INR daily * consider increasing dose to 10 1 day per week to maintain acceptable range as Pt. vacillates between 7.5mg and 10mg doses. #CHFpEF * BNP: 497.5 (lowest it has been on any admission) * Echo( 12/17): EF: 60-65%, E/A reversal consistent with diastolic pathology, mild AR +TR + MR, pulmonary artery pressure 27 mm Hg * echo reviewed above #CKD - baseline ~3.6 * HgB: 12.3 stable #FEN * no IVF, encourage PO intake as Pt. has been having decreased appetite, being mindful of an upper limit of 2L * replete as needed * Diabetic/Na restricted Diet #DVT Ppx. c/w Warfarin as above currently subtherapeutic #Dispo Med/Surg Pt.'s daughter left her number ([phone] [place] [phone]) for updates Visit type - Emergency Visit Emergency Visit: Yes ED Registration Date: 08/22/18 Care time: The patient presented to the Emergency Department on the above date and was hospitalized for further evaluation of their emergent condition. - New Patient This patient is new to me today: No - Critical Care Critical Care patient: No
[2018-08-24] MEDS ORDERED: hydrALAZINE HCL 50 MG TABLET (FP) PO SCH (13:53)
[2018-08-24] MEDS: hydrALAZINE HCL 50 MG TABLET (FP) PO SCH ×2 (14:06→23:31)
[2018-08-24] MEDS ORDERED: PT OWN MED DRAWER 7, Y5N ONE (14:09)
[2018-08-24] MEDS ORDERED: WARFARIN NA 5 MG TABLET (UD) PO SCH (18:00)
[2018-08-24] MEDS: INSULIN (LEVEMIR) 100 UNITS/ML UNITS SQ SCH (23:31)
[2018-08-25] MEDS: methylPREDNISolone NA SUCC 40 MG/1 ML VIAL IVPUSH SCH ×3 (03:48→22:21)
[2018-08-25] MEDS: hydrALAZINE HCL 50 MG TABLET (FP) PO SCH ×3 (06:10→22:19)
[2018-08-25] MEDS: INSULIN SLIDING SCALE (NOVOLOG) 1 VIAL SQ SCH ×4 (06:10→22:18)
[2018-08-25 07:56] LABS: PROTHROMBIN TIME (PATIENT) 48.5 SEC (9.7-13.0)
[2018-08-25 08:56] LABS: INR 4.05 (0.83-1.09)
[2018-08-25] MEDS ORDERED: PT OWN MED DRAWER 7, Y5N ONE (09:23)
[2018-08-25 09:26] LABS: BASO % 0.2 % (0-2.0); HEMATOCRIT 34.5 % (32.4-45.2); HEMOGLOBIN 11.1 GM/dL (10.7-15.3); LYMPH % 3.6 % (8-40); MCH 30.9 pg (25.7-33.7); MCHC 32.3 g/dl (32.0-36.0); MEAN CELL VOLUME 95.7 fl (80-96); MEAN PLT VOLUME 9.7 fl (7.5-11.1); MONO % 1.8 % (3.8-10.2); NEUT % 94.4 % (42.8-82.8); PLATELET COUNT 208 K/MM3 (134-434); RDW 14.9 % (11.6-15.6); WHITE BLOOD COUNT 13.6 K/mm3 (4.0-10.0)
[2018-08-25] MEDS: PANTOPRAZOLE 40 MG TABLET (FP) PO SCH (09:27)
[2018-08-25] MEDS: FOLIC ACID 1 MG TABLET (FP) PO SCH (09:27)
[2018-08-25] MEDS: FERROUS SO4 325 MG TABLET (FP) PO SCH ×2 (09:27→17:21)
[2018-08-25] MEDS: ASCORBIC ACID 500 MG TABLET (FP) PO SCH (09:27)
[2018-08-25] MEDS: SODIUM BICARBONATE 650 MG TABLET PO SCH ×2 (09:27→22:19)
[2018-08-25] MEDS: FUROSEMIDE 40 MG TABLET (FP) PO SCH (09:27)
[2018-08-25] MEDS: BUDESONIDE/FORMETEROL FUMARATE 160/4.5 mcg INHALER IH SCH ×2 (09:29→22:20)
[2018-08-25 09:51] LABS: BLOOD UREA NITROGEN 77.4 mg/dL (7-18); CALCIUM 8.4 mg/dL (8.5-10.1); CREATININE 4.1 mg/dL (0.55-1.3); POTASSIUM 4.3 mmol/L (3.5-5.1)
[2018-08-25 11:02] LABS: ANISOCYTOSIS 1+; MACROCYTOSIS 1+; OVALOCYTE 1+; PLATELET ESTIMATE NORMAL
--- NOTE | 2018-08-25 11:32 | PN ---
Progress Note, Physician History of Present Illness: PULMONARY ALERT,FEELING BETTER,LESS DYPNEIC,-COUGH,-SP - Current Medication List Current Medications: Active Medications Ascorbic Acid (Vitamin C -) 1,000 mg PO DAILY [facility] Last Admin: 08/25/18 09:27 Dose: 1,000 mg Budesonide/Formoterol Fumarate (Symbicort 160/4.5mcg -) 2 puff IH BID [facility] Last Admin: 08/25/18 09:29 Dose: 2 puff Diltiazem HCl (Cardizem Cd -) 120 mg PO DAILY [facility] Last Admin: 08/25/18 09:27 Dose: 120 mg Ferrous Sulfate (Feosol -) 325 mg PO BIDWM [facility] Last Admin: 08/25/18 09:27 Dose: 325 mg Folic Acid (Folic Acid -) 1 mg PO DAILY [facility] Last Admin: 08/25/18 09:27 Dose: 1 mg Furosemide (Lasix -) 40 mg PO DAILY [facility] Last Admin: 08/25/18 09:27 Dose: 40 mg Hydralazine HCl (Apresoline -) 100 mg PO TID [facility] Last Admin: 08/25/18 06:10 Dose: 100 mg Insulin Aspart (Novolog Vial Sliding Scale -) 1 vial SQ [facility]; Protocol Last Admin: 08/25/18 06:10 Dose: 4 unit Insulin Detemir (Levemir Vial) 20 units SQ HS [facility] Last Admin: 08/24/18 23:31 Dose: 20 unit Methylprednisolone Sodium Succinate (Solu-Medrol -) 40 mg IVPUSH Q8H-IV [facility] Last Admin: 08/25/18 09:27 Dose: 40 mg Pantoprazole Sodium (Protonix -) 40 mg PO DAILY [facility] Last Admin: 08/25/18 09:27 Dose: 40 mg Sodium Bicarbonate (Sodium Bicarbonate -) 650 mg PO BID [facility] Last Admin: 08/25/18 09:27 Dose: 650 mg Warfarin Sodium (Coumadin -) 5 mg PO DAILY@1800 [facility] Last Admin: 08/24/18 18:30 Dose: 5 mg - Objective Vital Signs: Vital Signs Temperature 97.7 F 08/25/18 09:20 Pulse Rate 60 08/25/18 09:20 Respiratory Rate 20 08/25/18 09:20 Blood Pressure 143/53 L 08/25/18 09:20 O2 Sat by Pulse Oximetry (%) 98 08/25/18 09:00 Constitutional: Yes: Well Nourished, Calm Eyes: Yes: WNL HENT: Yes: WNL Neck: Yes: WNL Cardiovascular: Yes: S1, S2 Respiratory: Yes: Diminished Gastrointestinal: Yes: Normal Bowel Sounds, Soft Extremities: Yes: WNL Edema: No Labs: CBC, BMP 08/25/18 06:30 08/25/18 08:50 INR, PTT INR 4.05 (0.83-1.09) H* 08/25/18 06:30 Assessment/Plan Problem List - Problems (1) Afib Code(s): I48.91 - UNSPECIFIED ATRIAL FIBRILLATION Qualifiers: Atrial fibrillation type: unspecified Qualified Code(s): I48.91 - Unspecified atrial fibrillation (2) Anemia Code(s): D64.9 - ANEMIA, UNSPECIFIED (3) Asthma Code(s): J45.909 - UNSPECIFIED ASTHMA, UNCOMPLICATED (4) CKD (chronic kidney disease) Code(s): N18.9 - CHRONIC KIDNEY DISEASE, UNSPECIFIED (5) COPD (chronic obstructive pulmonary disease) Code(s): J44.9 - CHRONIC OBSTRUCTIVE PULMONARY DISEASE, UNSPECIFIED Qualifiers: COPD type: chronic bronchitis (6) Diastolic CHF Code(s): I50.30 - UNSPECIFIED DIASTOLIC (CONGESTIVE) HEART FAILURE Qualifiers: Heart failure chronicity: chronic Qualified Code(s): I50.32 - Chronic diastolic (congestive) heart failure (7) IDDM (insulin dependent diabetes mellitus) Code(s): E11.9 - TYPE 2 DIABETES MELLITUS WITHOUT COMPLICATIONS; Z79.4 - LONG-TERM (CURRENT) USE OF INSULIN (8) Migraine headache Code(s): G43.909 - MIGRAINE, UNSP, NOT INTRACTABLE, WITHOUT STATUS MIGRAINOSUS Qualifiers: Migraine type: other Intractability: not intractable (9) Paroxysmal atrial fibrillation with RVR Code(s): I48.0 - PAROXYSMAL ATRIAL FIBRILLATION (10) Shortness of breath Code(s): R06.02 - SHORTNESS OF BREATH (11) CAD (coronary artery disease) Code(s): I25.10 - ATHSCL HEART DISEASE OF [place] CORONARY ARTERY W/O ANG PCTRS (12) CHF (congestive heart failure) Code(s): I50.9 - HEART FAILURE, UNSPECIFIED (13) Depression Code(s): F32.9 - MAJOR DEPRESSIVE DISORDER, SINGLE EPISODE, UNSPECIFIED Qualifiers: Depression Type: unspecified Qualified Code(s): F32.9 - Major depressive disorder, single episode, unspecified (14) Gastroesophageal reflux disease Code(s): K21.9 - GASTRO-ESOPHAGEAL REFLUX DISEASE WITHOUT ESOPHAGITIS (15) History of DVT (deep vein thrombosis) Code(s): Z86.718 - PERSONAL HISTORY OF OTHER VENOUS THROMBOSIS AND EMBOLISM (16) Hyperlipidemia Code(s): E78.5 - HYPERLIPIDEMIA, UNSPECIFIED Qualifiers: Hyperlipidemia type: pure hypercholesterolemia Qualified Code(s): E78.00 - Pure hypercholesterolemia, unspecified; E78.0 - Pure hypercholesterolemia (17) Hypertension Code(s): I10 - ESSENTIAL (PRIMARY) HYPERTENSION Qualifiers: Hypertension type: essential hypertension Qualified Code(s): I10 - Essential (primary) hypertension (18) Peripheral arterial disease Code(s): I73.9 - PERIPHERAL VASCULAR DISEASE, UNSPECIFIED (19) Type 2 diabetes mellitus Code(s): E11.9 - TYPE 2 DIABETES MELLITUS WITHOUT COMPLICATIONS Qualifiers: Diabetes mellitus complication status: with circulatory complication (20) Pulmonary hypertension Code(s): I27.2 - OTHER SECONDARY PULMONARY HYPERTENSION * DO NOT USE * Assessment/Plan Taper medrol Inhaled BD NC O2 as needed DR GOULD
[2018-08-25] MEDS: ALBUTEROL SO4 2.5/IPRATROPIUM 0.5 INH SOL 3 ML VIAL.NEB. NEB SCH ×3 (12:04→21:13)
[2018-08-25] MEDS ORDERED: ALBUTEROL SO4 0.083% IH SOL 2.5 MG/3 ML VIAL.NEB. NEB PRN (12:19)
[2018-08-25 12:53] LABS: HYALINE CASTS 0 /lpf (0-8); URINE APPEARANCE CLEAR; URINE BACTERIA 64.9 /hpf (NEGATIVE); URINE BILIRUBIN NEGATIVE (NEGATIVE); URINE COLOR YELLOW; URINE GLUCOSE (UA) TRACE (NEGATIVE); URINE KETONE NEGATIVE (NEGATIVE); URINE LEUK ESTERASE NEGATIVE (NEGATIVE); URINE NITRITE NEGATIVE (NEGATIVE); URINE PROTEIN 2+ (NEGATIVE); URINE RBC 2 /hpf (0-4); URINE UROBILINOGEN 0.2 mg/dL (0.2-1.0); URINE WBC 1 /hpf (0-5)
--- NOTE | 2018-08-25 13:04 | PN ---
Teaching Attending Note Name of Resident: Mohsen Pillai ATTENDING PHYSICIAN STATEMENT I saw and evaluated the patient. I reviewed the resident's note and discussed the case with the resident. I agree with the resident's findings and plan as documented. SUBJECTIVE: patient denies SOB but becomes very dyspneic with minimal movement. OBJECTIVE: Vital Signs Period Temp Pulse Resp BP Sys/Renee Pulse Ox Last 24 Hr 97.7 F-98.8 F 60-76 20-20 143-158/53-72 95-98 HEART: S1S2, RRR LUNGS: Bilateral wheezes ABDOMEN: Soft, non-tender, non-distended, normal BS EXTREMITIES: No edema Laboratory Results - last 24 hr 08/24/18 08/24/18 08/24/18 05:45 16:35 23:28 WBC RBC Hgb Hct MCV MCH MCHC RDW Plt Count MPV Absolute Neuts (auto) Neutrophils % Neutrophils % (Manual) 90.1 H Band Neutrophils % 0.0 Lymphocytes % Lymphocytes % (Manual) 8.9 D Monocytes % Monocytes % (Manual) 1 L Eosinophils % Eosinophils % (Manual) 0.0 Basophils % Basophils % (Manual) 0.0 Myelocytes % (Man) 0 Promyelocytes % (Man) 0 Blast Cells % (Manual) 0 Nucleated RBC % Metamyelocytes 0 Hypochromia 0 Platelet Estimate Normal Polychromasia 0 Poikilocytosis 0 Anisocytosis 1+ Microcytosis 0 Macrocytosis 1+ Ovalocytes PT with INR INR Sodium Potassium Chloride Carbon Dioxide Anion Gap BUN Creatinine Est GFR (CKD-EPI)AfAm Est GFR (CKD-EPI)NonAf POC Glucometer 408 351 Random Glucose Calcium Urine Color Urine Appearance Urine pH Ur Specific [place] Urine Protein Urine Glucose (UA) Urine Ketones Urine Blood Urine Nitrite Urine Bilirubin Urine Urobilinogen Ur Leukocyte Esterase Urine WBC (Auto) Urine RBC (Auto) Urine Casts (Auto) U Pathogenic Cast Auto U Epithel Cells (Auto) Urine Bacteria (Auto) 08/25/18 08/25/18 08/25/18 05:29 06:30 06:30 WBC 13.6 H RBC 3.60 Hgb 11.1 Hct 34.5 MCV 95.7 MCH 30.9 MCHC 32.3 RDW 14.9 Plt Count 208 MPV 9.7 Absolute Neuts (auto) 12.8 H Neutrophils % 94.4 H Neutrophils % (Manual) 97.0 H Band Neutrophils % 0.0 Lymphocytes % 3.6 L D Lymphocytes % (Manual) 3.0 L D Monocytes % 1.8 L Monocytes % (Manual) 0 L D Eosinophils % 0.0 Eosinophils % (Manual) 0.0 Basophils % 0.2 Basophils % (Manual) 0.0 Myelocytes % (Man) 0 Promyelocytes % (Man) 0 Blast Cells % (Manual) 0 Nucleated RBC % 0 Metamyelocytes 0 Hypochromia 0 Platelet Estimate Normal Polychromasia 0 Poikilocytosis 0 Anisocytosis 1+ Microcytosis 0 Macrocytosis 1+ Ovalocytes 1+ PT with INR 48.50 H INR 4.05 H* Sodium Potassium Chloride Carbon Dioxide Anion Gap BUN Creatinine Est GFR (CKD-EPI)AfAm Est GFR (CKD-EPI)NonAf POC Glucometer 227 Random Glucose Calcium Urine Color Urine Appearance Urine pH Ur Specific [place] Urine Protein Urine Glucose (UA) Urine Ketones Urine Blood Urine Nitrite Urine Bilirubin Urine Urobilinogen Ur Leukocyte Esterase Urine WBC (Auto) Urine RBC (Auto) Urine Casts (Auto) U Pathogenic Cast Auto U Epithel Cells (Auto) Urine Bacteria (Auto) 08/25/18 08/25/18 08/25/18 08:50 11:52 12:05 WBC RBC Hgb Hct MCV MCH MCHC RDW Plt Count MPV Absolute Neuts (auto) Neutrophils % Neutrophils % (Manual) Band Neutrophils % Lymphocytes % Lymphocytes % (Manual) Monocytes % Monocytes % (Manual) Eosinophils % Eosinophils % (Manual) Basophils % Basophils % (Manual) Myelocytes % (Man) Promyelocytes % (Man) Blast Cells % (Manual) Nucleated RBC % Metamyelocytes Hypochromia Platelet Estimate Polychromasia Poikilocytosis Anisocytosis Microcytosis Macrocytosis Ovalocytes PT with INR INR Sodium 138 Potassium 4.3 Chloride 105 Carbon Dioxide 19 L Anion Gap 13 BUN 77.4 H Creatinine 4.1 H Est GFR (CKD-EPI)AfAm 11.27 Est GFR (CKD-EPI)NonAf 9.72 POC Glucometer 308 Random Glucose 219 H Calcium 8.4 L Urine Color Yellow Urine Appearance Clear Urine pH 5.0 Ur Specific [place] 1.015 Urine Protein 2+ H Urine Glucose (UA) Trace Urine Ketones Negative Urine Blood Negative Urine Nitrite Negative Urine Bilirubin Negative Urine Urobilinogen 0.2 Ur Leukocyte Esterase Negative Urine WBC (Auto) 1 Urine RBC (Auto) 2 Urine Casts (Auto) 0 U Pathogenic Cast Auto No Result Required. U Epithel Cells (Auto) 2.0 Urine Bacteria (Auto) 64.9 Current Medications Generic Name Dose Route Start Last Admin Trade Name Frelianne PRN Reason Stop Dose Admin Albuterol Sulfate 1 amp 08/25/18 12:19 Ventolin 0.083% Nebulizer Soln - NEB Q6H PRN SHORT OF BREATH/WHEEZING Albuterol/Ipratropium 1 amp 08/25/18 12:00 08/25/18 12:04 Duoneb - NEB Not Given RQID [facility] Ascorbic Acid 1,000 mg 08/23/18 10:00 08/25/18 09:27 Vitamin C - PO 1,000 mg DAILY [facility] Administration Budesonide/Formoterol Fumarate 2 puff 08/23/18 10:00 08/25/18 09:29 Symbicort 160/4.5mcg - IH 2 puff BID [facility] Administration Diltiazem HCl 120 mg 08/23/18 10:00 08/25/18 09:27 Cardizem Cd - PO 120 mg DAILY [facility] Administration Ferrous Sulfate 325 mg 08/22/18 22:00 08/25/18 09:27 Feosol - PO 325 mg BIDWM [facility] Administration Folic Acid 1 mg 08/23/18 10:00 08/25/18 09:27 Folic Acid - PO 1 mg DAILY [facility] Administration Furosemide 40 mg 08/23/18 10:00 08/25/18 09:27 Lasix - PO 40 mg DAILY [facility] Administration Hydralazine HCl 100 mg 08/24/18 14:00 08/25/18 06:10 Apresoline - PO 100 mg TID [facility] Administration Insulin Aspart 1 vial 08/22/18 22:00 08/25/18 11:54 Novolog Vial Sliding Scale - SQ 6 unit ACHS [facility] Administration Protocol Insulin Detemir 20 units 08/22/18 22:00 08/24/18 23:31 Levemir Vial SQ 20 unit HS [facility] Administration Methylprednisolone Sodium Succinate 40 mg 08/25/18 22:00 Solu-Medrol - IVPUSH BID [facility] Pantoprazole Sodium 40 mg 08/23/18 10:00 08/25/18 09:27 Protonix - PO 40 mg DAILY [facility] Administration Sodium Bicarbonate 650 mg 08/22/18 22:00 08/25/18 09:27 Sodium Bicarbonate - PO 650 mg BID [facility] Administration Warfarin Sodium 4 mg 08/25/18 18:00 Coumadin - PO DAILY@1800 [facility] ASSESSMENT AND PLAN: This is a 77 year old woman with a history of HTN, atrial fib, CAD, [place], chronic diastolic heart failure, type 2 DM, LLE DVT, stage 5 CKD, GERD, overactive bladder who presented to the ED with SOB. 1. Acute exacerbation of COPD - SoluMedrol being tapered - Continue Symbicort - DuoNeb, albuterol nebs as needed 2. History of atrial fibrillation, ablation - Remains in sinus rhythm - Continue Cardizem CD - Adjust Coumadin based on INR 3. HTN - Continue Cardizem CD, Hydralazine, Lasix 4. Chronic diastolic heart failure - Stable - Continue Lasix 5. Stage 5 CKD - Stable - Continue sodium bicarb 6. CAD, history of [place] 7. Type 2 DM - Continue Levemir, Novolog sliding scale 8. GERD - Continue Protonix 9. Overactive bladder 10. History of LLE DVT
--- NOTE | 2018-08-25 14:03 | PN ---
Physical Exam: SUBJECTIVE: Patient seen and examined at bedside. On BiPAP at time of encounter , no overnight events or complaints. OBJECTIVE: Vital Signs Period Temp Pulse Resp BP Sys/Renee Pulse Ox Last 24 Hr 97.7 F-98.8 F 60-76 20-20 143-158/53-72 95-98 GENERAL: A&Ox3, NAD HEENT: NC/AT, PERRLA, EOMI, MMM NECK: Normal range of motion, supple without lymphadenopathy, JVD, or masses. 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 PSYCHIATRIC: Cooperative SKIN: Warm, dry, normal turgor Laboratory Results - last 24 hr 08/24/18 08/24/18 08/25/18 16:35 23:28 05:29 WBC RBC Hgb Hct MCV MCH MCHC RDW Plt Count MPV Absolute Neuts (auto) Neutrophils % Neutrophils % (Manual) Band Neutrophils % Lymphocytes % Lymphocytes % (Manual) Monocytes % Monocytes % (Manual) Eosinophils % Eosinophils % (Manual) Basophils % Basophils % (Manual) Myelocytes % (Man) Promyelocytes % (Man) Blast Cells % (Manual) Nucleated RBC % Metamyelocytes Hypochromia Platelet Estimate Polychromasia Poikilocytosis Anisocytosis Microcytosis Macrocytosis Ovalocytes PT with INR INR Sodium Potassium Chloride Carbon Dioxide Anion Gap BUN Creatinine Est GFR (CKD-EPI)AfAm Est GFR (CKD-EPI)NonAf POC Glucometer 408 351 227 Random Glucose Calcium Urine Color Urine Appearance Urine pH Ur Specific [place] Urine Protein Urine Glucose (UA) Urine Ketones Urine Blood Urine Nitrite Urine Bilirubin Urine Urobilinogen Ur Leukocyte Esterase Urine WBC (Auto) Urine RBC (Auto) Urine Casts (Auto) U Pathogenic Cast Auto U Epithel Cells (Auto) Urine Bacteria (Auto) 08/25/18 08/25/18 08/25/18 06:30 06:30 08:50 WBC 13.6 H RBC 3.60 Hgb 11.1 Hct 34.5 MCV 95.7 MCH 30.9 MCHC 32.3 RDW 14.9 Plt Count 208 MPV 9.7 Absolute Neuts (auto) 12.8 H Neutrophils % 94.4 H Neutrophils % (Manual) 97.0 H Band Neutrophils % 0.0 Lymphocytes % 3.6 L D Lymphocytes % (Manual) 3.0 L D Monocytes % 1.8 L Monocytes % (Manual) 0 L D Eosinophils % 0.0 Eosinophils % (Manual) 0.0 Basophils % 0.2 Basophils % (Manual) 0.0 Myelocytes % (Man) 0 Promyelocytes % (Man) 0 Blast Cells % (Manual) 0 Nucleated RBC % 0 Metamyelocytes 0 Hypochromia 0 Platelet Estimate Normal Polychromasia 0 Poikilocytosis 0 Anisocytosis 1+ Microcytosis 0 Macrocytosis 1+ Ovalocytes 1+ PT with INR 48.50 H INR 4.05 H* Sodium 138 Potassium 4.3 Chloride 105 Carbon Dioxide 19 L Anion Gap 13 BUN 77.4 H Creatinine 4.1 H Est GFR (CKD-EPI)AfAm 11.27 Est GFR (CKD-EPI)NonAf 9.72 POC Glucometer Random Glucose 219 H Calcium 8.4 L Urine Color Urine Appearance Urine pH Ur Specific [place] Urine Protein Urine Glucose (UA) Urine Ketones Urine Blood Urine Nitrite Urine Bilirubin Urine Urobilinogen Ur Leukocyte Esterase Urine WBC (Auto) Urine RBC (Auto) Urine Casts (Auto) U Pathogenic Cast Auto U Epithel Cells (Auto) Urine Bacteria (Auto) 08/25/18 08/25/18 11:52 12:05 WBC RBC Hgb Hct MCV MCH MCHC RDW Plt Count MPV Absolute Neuts (auto) Neutrophils % Neutrophils % (Manual) Band Neutrophils % Lymphocytes % Lymphocytes % (Manual) Monocytes % Monocytes % (Manual) Eosinophils % Eosinophils % (Manual) Basophils % Basophils % (Manual) Myelocytes % (Man) Promyelocytes % (Man) Blast Cells % (Manual) Nucleated RBC % Metamyelocytes Hypochromia Platelet Estimate Polychromasia Poikilocytosis Anisocytosis Microcytosis Macrocytosis Ovalocytes PT with INR INR Sodium Potassium Chloride Carbon Dioxide Anion Gap BUN Creatinine Est GFR (CKD-EPI)AfAm Est GFR (CKD-EPI)NonAf POC Glucometer 308 Random Glucose Calcium Urine Color Yellow Urine Appearance Clear Urine pH 5.0 Ur Specific [place] 1.015 Urine Protein 2+ H Urine Glucose (UA) Trace Urine Ketones Negative Urine Blood Negative Urine Nitrite Negative Urine Bilirubin Negative Urine Urobilinogen 0.2 Ur Leukocyte Esterase Negative Urine WBC (Auto) 1 Urine RBC (Auto) 2 Urine Casts (Auto) 0 U Pathogenic Cast Auto No Result Required. U Epithel Cells (Auto) 2.0 Urine Bacteria (Auto) 64.9 Active Medications Generic Name Dose Route Start Last Admin Trade Name Freq PRN Reason Stop Dose Admin Albuterol Sulfate 1 amp 08/25/18 12:19 Ventolin 0.083% Nebulizer Soln - NEB Q6H PRN SHORT OF BREATH/WHEEZING Albuterol/Ipratropium 1 amp 08/25/18 12:00 08/25/18 12:04 Duoneb - NEB Not Given RQID [facility] Ascorbic Acid 1,000 mg 08/23/18 10:00 08/25/18 09:27 Vitamin C - PO 1,000 mg DAILY [facility] Administration Budesonide/Formoterol Fumarate 2 puff 08/23/18 10:00 08/25/18 09:29 Symbicort 160/4.5mcg - IH 2 puff BID [facility] Administration Diltiazem HCl 120 mg 08/23/18 10:00 08/25/18 09:27 Cardizem Cd - PO 120 mg DAILY [facility] Administration Ferrous Sulfate 325 mg 08/22/18 22:00 08/25/18 09:27 Feosol - PO 325 mg BIDWM [facility] Administration Folic Acid 1 mg 08/23/18 10:00 08/25/18 09:27 Folic Acid - PO 1 mg DAILY [facility] Administration Furosemide 40 mg 08/23/18 10:00 08/25/18 09:27 Lasix - PO 40 mg DAILY [facility] Administration Hydralazine HCl 100 mg 08/24/18 14:00 08/25/18 13:51 Apresoline - PO 100 mg TID [facility] Administration Insulin Aspart 1 vial 08/22/18 22:00 08/25/18 11:54 Novolog Vial Sliding Scale - SQ 6 unit ACHS [facility] Administration Protocol Insulin Detemir 20 units 08/22/18 22:00 08/24/18 23:31 Levemir Vial SQ 20 unit HS [facility] Administration Methylprednisolone Sodium Succinate 40 mg 08/25/18 22:00 Solu-Medrol - IVPUSH BID [facility] Pantoprazole Sodium 40 mg 08/23/18 10:00 08/25/18 09:27 Protonix - PO 40 mg DAILY [facility] Administration Sodium Bicarbonate 650 mg 08/22/18 22:00 08/25/18 09:27 Sodium Bicarbonate - PO 650 mg BID [facility] Administration Warfarin Sodium 4 mg 08/25/18 18:00 Coumadin - PO DAILY@1800 [facility] ASSESSMENT/PLAN: 77 y.o. F w/ PMHx. of HTN, NIDDM, Afib(s/p ablation on Coumadin), LLE DVT, CHFpEF, [place]( s/p catherization), CKD Stage 4, GERD, and over active bladder presents after waking up this morning short of breath. #acute hypoxic respiratory failure due to COPD exacerbation (not on home O2) * c/w Solumedrol tapered to 40mg BID * bronchodilators standing and PRN * pulmonary following #Pulmonary HTN * Pulm. Art Pressure 27mm Hg on Echo in November 2018---> 33mmHg on Chest CT in March * Pt.s status and clinical symptoms improved too quickly for this to be the main component * echo reviewed above #Afib * EKG: NSR, Q waves in V1, QTc: 450 * INR up to 4.05, decrease warfarin from 5 to 4 daily * c/w Diltiazem 120mg Daily * monitor INR daily #CHFpEF * BNP: 497.5 (lowest it has been on any admission) * Echo( 12/17): EF: 60-65%, E/A reversal consistent with diastolic pathology, mild AR +TR + MR, pulmonary artery pressure 27 mm Hg * echo reviewed above #CKD - baseline ~3.6 * HgB: 12.3 stable #FEN * no IVF, encourage PO intake as Pt. has been having decreased appetite, being mindful of an upper limit of 2L * replete as needed * Diabetic/Na restricted Diet #DVT Ppx. c/w Warfarin as above currently subtherapeutic #Dispo Med/Surg Pt.'s daughter left her number ([phone] [place] [phone]) for updates Visit type - Emergency Visit Emergency Visit: No - New Patient This patient is new to me today: Yes Date on this admission: 08/25/18 - Critical Care Critical Care patient: No
[2018-08-25] MEDS: WARFARIN NA 2 MG TABLET (UD) PO SCH (17:21)
[2018-08-25] MEDS: INSULIN (LEVEMIR) 100 UNITS/ML UNITS SQ SCH (22:18)
[2018-08-26] MEDS: INSULIN SLIDING SCALE (NOVOLOG) 1 VIAL SQ SCH ×4 (06:17→21:41)
[2018-08-26] MEDS: hydrALAZINE HCL 50 MG TABLET (FP) PO SCH ×3 (06:18→21:42)
--- NOTE | 2018-08-26 06:38 | PN ---
Physical Exam: SUBJECTIVE: Patient seen and examined OBJECTIVE: Vital Signs Period Temp Pulse Resp BP Sys/Renee Pulse Ox Last 24 Hr 97.6 F-97.9 F 60-69 20-20 122-144/49-68 95-100 GENERAL: The patient is awake, alert, and fully oriented, in no acute distress. HEAD: Normal with no signs of trauma. EYES: PERRL, extraocular movements intact, sclera anicteric, conjunctiva clear. No ptosis. ENT: Ears normal, nares patent, oropharynx clear without exudates, moist mucous membranes. NECK: Trachea midline, full range of motion, supple. LUNGS: Breath sounds equal, clear to auscultation bilaterally, no wheezes, no crackles, no accessory muscle use. HEART: Regular rate and rhythm, S1, S2 without murmur, rub or gallop. ABDOMEN: Soft, nontender, nondistended, normoactive bowel sounds, no guarding, no rebound, no hepatosplenomegaly, no masses. EXTREMITIES: 2+ pulses, warm, well-perfused, no edema. NEUROLOGICAL: Cranial nerves II through XII grossly intact. Normal speech, gait not observed. PSYCH: Normal mood, normal affect. SKIN: Warm, dry, normal turgor, no rashes or lesions noted Laboratory Results - last 24 hr 08/25/18 08/25/18 08/25/18 06:30 06:30 08:50 WBC 13.6 H RBC 3.60 Hgb 11.1 Hct 34.5 MCV 95.7 MCH 30.9 MCHC 32.3 RDW 14.9 Plt Count 208 MPV 9.7 Absolute Neuts (auto) 12.8 H Neutrophils % 94.4 H Neutrophils % (Manual) 97.0 H Band Neutrophils % 0.0 Lymphocytes % 3.6 L D Lymphocytes % (Manual) 3.0 L D Monocytes % 1.8 L Monocytes % (Manual) 0 L D Eosinophils % 0.0 Eosinophils % (Manual) 0.0 Basophils % 0.2 Basophils % (Manual) 0.0 Myelocytes % (Man) 0 Promyelocytes % (Man) 0 Blast Cells % (Manual) 0 Nucleated RBC % 0 Metamyelocytes 0 Hypochromia 0 Platelet Estimate Normal Polychromasia 0 Poikilocytosis 0 Anisocytosis 1+ Microcytosis 0 Macrocytosis 1+ Ovalocytes 1+ PT with INR 48.50 H INR 4.05 H* Sodium 138 Potassium 4.3 Chloride 105 Carbon Dioxide 19 L Anion Gap 13 BUN 77.4 H Creatinine 4.1 H Est GFR (CKD-EPI)AfAm 11.27 Est GFR (CKD-EPI)NonAf 9.72 POC Glucometer Random Glucose 219 H Calcium 8.4 L Urine Color Urine Appearance Urine pH Ur Specific [place] Urine Protein Urine Glucose (UA) Urine Ketones Urine Blood Urine Nitrite Urine Bilirubin Urine Urobilinogen Ur Leukocyte Esterase Urine WBC (Auto) Urine RBC (Auto) Urine Casts (Auto) U Pathogenic Cast Auto U Epithel Cells (Auto) Urine Bacteria (Auto) 08/25/18 08/25/18 08/25/18 11:52 12:05 17:19 WBC RBC Hgb Hct MCV MCH MCHC RDW Plt Count MPV Absolute Neuts (auto) Neutrophils % Neutrophils % (Manual) Band Neutrophils % Lymphocytes % Lymphocytes % (Manual) Monocytes % Monocytes % (Manual) Eosinophils % Eosinophils % (Manual) Basophils % Basophils % (Manual) Myelocytes % (Man) Promyelocytes % (Man) Blast Cells % (Manual) Nucleated RBC % Metamyelocytes Hypochromia Platelet Estimate Polychromasia Poikilocytosis Anisocytosis Microcytosis Macrocytosis Ovalocytes PT with INR INR Sodium Potassium Chloride Carbon Dioxide Anion Gap BUN Creatinine Est GFR (CKD-EPI)AfAm Est GFR (CKD-EPI)NonAf POC Glucometer [phone] Random Glucose Calcium Urine Color Yellow Urine Appearance Clear Urine pH 5.0 Ur Specific [place] 1.015 Urine Protein 2+ H Urine Glucose (UA) Trace Urine Ketones Negative Urine Blood Negative Urine Nitrite Negative Urine Bilirubin Negative Urine Urobilinogen 0.2 Ur Leukocyte Esterase Negative Urine WBC (Auto) 1 Urine RBC (Auto) 2 Urine Casts (Auto) 0 U Pathogenic Cast Auto No Result Required. U Epithel Cells (Auto) 2.0 Urine Bacteria (Auto) 64.9 08/25/18 08/25/18 08/25/18 18:45 19:00 21:56 WBC RBC Hgb Hct MCV MCH MCHC RDW Plt Count MPV Absolute Neuts (auto) Neutrophils % Neutrophils % (Manual) Band Neutrophils % Lymphocytes % Lymphocytes % (Manual) Monocytes % Monocytes % (Manual) Eosinophils % Eosinophils % (Manual) Basophils % Basophils % (Manual) Myelocytes % (Man) Promyelocytes % (Man) Blast Cells % (Manual) Nucleated RBC % Metamyelocytes Hypochromia Platelet Estimate Polychromasia Poikilocytosis Anisocytosis Microcytosis Macrocytosis Ovalocytes PT with INR INR Sodium Potassium Chloride Carbon Dioxide Anion Gap BUN Creatinine Est GFR (CKD-EPI)AfAm Est GFR (CKD-EPI)NonAf POC Glucometer [phone] Random Glucose 497 H* Calcium Urine Color Urine Appearance Urine pH Ur Specific [place] Urine Protein Urine Glucose (UA) Urine Ketones Urine Blood Urine Nitrite Urine Bilirubin Urine Urobilinogen Ur Leukocyte Esterase Urine WBC (Auto) Urine RBC (Auto) Urine Casts (Auto) U Pathogenic Cast Auto U Epithel Cells (Auto) Urine Bacteria (Auto) 08/26/18 05:50 WBC RBC Hgb Hct MCV MCH MCHC RDW Plt Count MPV Absolute Neuts (auto) Neutrophils % Neutrophils % (Manual) Band Neutrophils % Lymphocytes % Lymphocytes % (Manual) Monocytes % Monocytes % (Manual) Eosinophils % Eosinophils % (Manual) Basophils % Basophils % (Manual) Myelocytes % (Man) Promyelocytes % (Man) Blast Cells % (Manual) Nucleated RBC % Metamyelocytes Hypochromia Platelet Estimate Polychromasia Poikilocytosis Anisocytosis Microcytosis Macrocytosis Ovalocytes PT with INR INR Sodium Potassium Chloride Carbon Dioxide Anion Gap BUN Creatinine Est GFR (CKD-EPI)AfAm Est GFR (CKD-EPI)NonAf POC Glucometer 319 Random Glucose Calcium Urine Color Urine Appearance Urine pH Ur Specific [place] Urine Protein Urine Glucose (UA) Urine Ketones Urine Blood Urine Nitrite Urine Bilirubin Urine Urobilinogen Ur Leukocyte Esterase Urine WBC (Auto) Urine RBC (Auto) Urine Casts (Auto) U Pathogenic Cast Auto U Epithel Cells (Auto) Urine Bacteria (Auto) Active Medications Generic Name Dose Route Start Last Admin Trade Name Freq PRN Reason Stop Dose Admin Albuterol Sulfate 1 amp 08/25/18 12:19 Ventolin 0.083% Nebulizer Soln - NEB Q6H PRN SHORT OF BREATH/WHEEZING Albuterol/Ipratropium 1 amp 08/25/18 12:00 08/25/18 21:13 Duoneb - NEB 1 amp RQID ERMA Administration Ascorbic Acid 1,000 mg 08/23/18 10:00 08/25/18 09:27 Vitamin C - PO 1,000 mg DAILY ERMA Administration Budesonide/Formoterol Fumarate 2 puff 08/23/18 10:00 08/25/18 22:20 Symbicort 160/4.5mcg - IH 2 puff BID ERMA Administration Diltiazem HCl 120 mg 08/23/18 10:00 08/25/18 09:27 Cardizem Cd - PO 120 mg DAILY ERMA Administration Ferrous Sulfate 325 mg 08/22/18 22:00 08/25/18 17:21 Feosol - PO 325 mg BIDWM ERMA Administration Folic Acid 1 mg 08/23/18 10:00 08/25/18 09:27 Folic Acid - PO 1 mg DAILY ERMA Administration Furosemide 40 mg 08/23/18 10:00 08/25/18 09:27 Lasix - PO 40 mg DAILY ERMA Administration Hydralazine HCl 100 mg 08/24/18 14:00 08/26/18 06:18 Apresoline - PO 100 mg TID ERMA Administration Insulin Aspart 1 vial 08/25/18 18:53 08/26/18 06:17 Novolog Vial Sliding Scale - SQ 8 units ACHS [facility] Administration Protocol Insulin Detemir 24 units 08/25/18 18:54 08/25/18 22:18 Levemir Vial SQ 24 units HS [facility] Administration Methylprednisolone Sodium Succinate 40 mg 08/25/18 22:00 08/25/18 22:21 Solu-Medrol - IVPUSH 40 mg BID ERMA Administration Pantoprazole Sodium 40 mg 08/23/18 10:00 08/25/18 09:27 Protonix - PO 40 mg DAILY ERMA Administration Sodium Bicarbonate 650 mg 08/22/18 22:00 08/25/18 22:19 Sodium Bicarbonate - PO 650 mg BID ERMA Administration Warfarin Sodium 4 mg 08/25/18 18:00 08/25/18 17:21 Coumadin - PO 4 mg DAILY@1800 [facility] Administration ASSESSMENT/PLAN:
--- NOTE | 2018-08-26 07:37 | PN ---
Physical Exam: SUBJECTIVE: Patient seen and examined at bedside. On BiPAP at time of encounter , no overnight events or complaints. OBJECTIVE: Vital Signs Period Temp Pulse Resp BP Sys/Renee Pulse Ox Last 24 Hr 97.6 F-98.5 F 60-69 20-20 122-144/49-68 95-100 GENERAL: A&Ox3, NAD HEENT: NC/AT, PERRLA, EOMI, MMM NECK: Normal range of motion, supple without lymphadenopathy, JVD, or masses. LUNGS: tight, poor air entry, scattered wheezes, becomes markedly dyspneic on minimal exertion HEART: RRR no m/r/g ABDOMEN: +bs, soft, NT, ND EXTREMITIES: wwp, no edema NEUROLOGICAL: inventory associate, motor, sensory systems w/o focal deficit PSYCHIATRIC: Cooperative SKIN: Warm, dry, normal turgor Laboratory Results - last 24 hr 08/25/18 08/25/18 08/25/18 06:30 06:30 08:50 WBC 13.6 H RBC 3.60 Hgb 11.1 Hct 34.5 MCV 95.7 MCH 30.9 MCHC 32.3 RDW 14.9 Plt Count 208 MPV 9.7 Absolute Neuts (auto) 12.8 H Neutrophils % 94.4 H Neutrophils % (Manual) 97.0 H Band Neutrophils % 0.0 Lymphocytes % 3.6 L D Lymphocytes % (Manual) 3.0 L D Monocytes % 1.8 L Monocytes % (Manual) 0 L D Eosinophils % 0.0 Eosinophils % (Manual) 0.0 Basophils % 0.2 Basophils % (Manual) 0.0 Myelocytes % (Man) 0 Promyelocytes % (Man) 0 Blast Cells % (Manual) 0 Nucleated RBC % 0 Metamyelocytes 0 Hypochromia 0 Platelet Estimate Normal Polychromasia 0 Poikilocytosis 0 Anisocytosis 1+ Microcytosis 0 Macrocytosis 1+ Ovalocytes 1+ PT with INR 48.50 H INR 4.05 H* Sodium 138 Potassium 4.3 Chloride 105 Carbon Dioxide 19 L Anion Gap 13 BUN 77.4 H Creatinine 4.1 H Est GFR (CKD-EPI)AfAm 11.27 Est GFR (CKD-EPI)NonAf 9.72 POC Glucometer Random Glucose 219 H Calcium 8.4 L Urine Color Urine Appearance Urine pH Ur Specific [place] Urine Protein Urine Glucose (UA) Urine Ketones Urine Blood Urine Nitrite Urine Bilirubin Urine Urobilinogen Ur Leukocyte Esterase Urine WBC (Auto) Urine RBC (Auto) Urine Casts (Auto) U Pathogenic Cast Auto U Epithel Cells (Auto) Urine Bacteria (Auto) 08/25/18 08/25/18 08/25/18 11:52 12:05 17:19 WBC RBC Hgb Hct MCV MCH MCHC RDW Plt Count MPV Absolute Neuts (auto) Neutrophils % Neutrophils % (Manual) Band Neutrophils % Lymphocytes % Lymphocytes % (Manual) Monocytes % Monocytes % (Manual) Eosinophils % Eosinophils % (Manual) Basophils % Basophils % (Manual) Myelocytes % (Man) Promyelocytes % (Man) Blast Cells % (Manual) Nucleated RBC % Metamyelocytes Hypochromia Platelet Estimate Polychromasia Poikilocytosis Anisocytosis Microcytosis Macrocytosis Ovalocytes PT with INR INR Sodium Potassium Chloride Carbon Dioxide Anion Gap BUN Creatinine Est GFR (CKD-EPI)AfAm Est GFR (CKD-EPI)NonAf POC Glucometer [phone] Random Glucose Calcium Urine Color Yellow Urine Appearance Clear Urine pH 5.0 Ur Specific [place] 1.015 Urine Protein 2+ H Urine Glucose (UA) Trace Urine Ketones Negative Urine Blood Negative Urine Nitrite Negative Urine Bilirubin Negative Urine Urobilinogen 0.2 Ur Leukocyte Esterase Negative Urine WBC (Auto) 1 Urine RBC (Auto) 2 Urine Casts (Auto) 0 U Pathogenic Cast Auto No Result Required. U Epithel Cells (Auto) 2.0 Urine Bacteria (Auto) 64.9 08/25/18 08/25/18 08/25/18 18:45 19:00 21:56 WBC RBC Hgb Hct MCV MCH MCHC RDW Plt Count MPV Absolute Neuts (auto) Neutrophils % Neutrophils % (Manual) Band Neutrophils % Lymphocytes % Lymphocytes % (Manual) Monocytes % Monocytes % (Manual) Eosinophils % Eosinophils % (Manual) Basophils % Basophils % (Manual) Myelocytes % (Man) Promyelocytes % (Man) Blast Cells % (Manual) Nucleated RBC % Metamyelocytes Hypochromia Platelet Estimate Polychromasia Poikilocytosis Anisocytosis Microcytosis Macrocytosis Ovalocytes PT with INR INR Sodium Potassium Chloride Carbon Dioxide Anion Gap BUN Creatinine Est GFR (CKD-EPI)AfAm Est GFR (CKD-EPI)NonAf POC Glucometer [phone] Random Glucose 497 H* Calcium Urine Color Urine Appearance Urine pH Ur Specific [place] Urine Protein Urine Glucose (UA) Urine Ketones Urine Blood Urine Nitrite Urine Bilirubin Urine Urobilinogen Ur Leukocyte Esterase Urine WBC (Auto) Urine RBC (Auto) Urine Casts (Auto) U Pathogenic Cast Auto U Epithel Cells (Auto) Urine Bacteria (Auto) 08/26/18 05:50 WBC RBC Hgb Hct MCV MCH MCHC RDW Plt Count MPV Absolute Neuts (auto) Neutrophils % Neutrophils % (Manual) Band Neutrophils % Lymphocytes % Lymphocytes % (Manual) Monocytes % Monocytes % (Manual) Eosinophils % Eosinophils % (Manual) Basophils % Basophils % (Manual) Myelocytes % (Man) Promyelocytes % (Man) Blast Cells % (Manual) Nucleated RBC % Metamyelocytes Hypochromia Platelet Estimate Polychromasia Poikilocytosis Anisocytosis Microcytosis Macrocytosis Ovalocytes PT with INR INR Sodium Potassium Chloride Carbon Dioxide Anion Gap BUN Creatinine Est GFR (CKD-EPI)AfAm Est GFR (CKD-EPI)NonAf POC Glucometer 319 Random Glucose Calcium Urine Color Urine Appearance Urine pH Ur Specific [place] Urine Protein Urine Glucose (UA) Urine Ketones Urine Blood Urine Nitrite Urine Bilirubin Urine Urobilinogen Ur Leukocyte Esterase Urine WBC (Auto) Urine RBC (Auto) Urine Casts (Auto) U Pathogenic Cast Auto U Epithel Cells (Auto) Urine Bacteria (Auto) Active Medications Generic Name Dose Route Start Last Admin Trade Name Freq PRN Reason Stop Dose Admin Albuterol Sulfate 1 amp 08/25/18 12:19 Ventolin 0.083% Nebulizer Soln - NEB Q6H PRN SHORT OF BREATH/WHEEZING Albuterol/Ipratropium 1 amp 08/25/18 12:00 08/25/18 21:13 Duoneb - NEB 1 amp RQID ERMA Administration Ascorbic Acid 1,000 mg 08/23/18 10:00 08/25/18 09:27 Vitamin C - PO 1,000 mg DAILY ERMA Administration Budesonide/Formoterol Fumarate 2 puff 08/23/18 10:00 08/25/18 22:20 Symbicort 160/4.5mcg - IH 2 puff BID ERMA Administration Diltiazem HCl 120 mg 08/23/18 10:00 08/25/18 09:27 Cardizem Cd - PO 120 mg DAILY ERMA Administration Ferrous Sulfate 325 mg 08/22/18 22:00 06/26/19 17:21 Feosol - PO 325 mg BIDWM ERMA Administration Folic Acid 1 mg 08/23/18 10:00 08/25/18 09:27 Folic Acid - PO 1 mg DAILY ERMA Administration Furosemide 40 mg 08/23/18 10:00 08/25/18 09:27 Lasix - PO 40 mg DAILY ERMA Administration Hydralazine HCl 100 mg 08/24/18 14:00 08/26/18 06:18 Apresoline - PO 100 mg TID ERMA Administration Insulin Aspart 1 vial 08/25/18 18:53 08/26/18 06:17 Novolog Vial Sliding Scale - SQ 8 units ACHS ERMA Administration Protocol Insulin Detemir 24 units 08/25/18 18:54 08/25/18 22:18 Levemir Vial SQ 24 units HS ERMA Administration Methylprednisolone Sodium Succinate 40 mg 08/25/18 22:00 08/25/18 22:21 Solu-Medrol - IVPUSH 40 mg BID ERMA Administration Pantoprazole Sodium 40 mg 08/23/18 10:00 08/25/18 09:27 Protonix - PO 40 mg DAILY ERMA Administration Sodium Bicarbonate 650 mg 08/22/18 22:00 08/25/18 22:19 Sodium Bicarbonate - PO 650 mg BID ERMA Administration Warfarin Sodium 4 mg 08/25/18 18:00 08/25/18 17:21 Coumadin - PO 4 mg DAILY@1800 [facility] Administration ASSESSMENT/PLAN: 77 y.o. F w/ PMHx. of HTN, NIDDM, Afib(s/p ablation on Coumadin), LLE DVT, CHFpEF, TX( s/p catherization), CKD Stage 4, GERD, and over active bladder presents after waking up this morning short of breath. #acute hypoxic respiratory failure due to COPD exacerbation (not on home O2) * c/w Solumedrol tapered to 40mg BID * bronchodilators standing and PRN * pulmonary following * minimal clinical improvement thus far * dry chest CT ordered #Pulmonary HTN * Pulm. Art Pressure 27mm Hg on Echo in November 2018---> 33mmHg on Chest CT in March * Pt.s status and clinical symptoms improved too quickly for this to be the main component * echo reviewed above #Afib * EKG: NSR, Q waves in V1, QTc: 450 * INR up to 4.05, decrease warfarin from 5 to 4 daily * c/w Diltiazem 120mg Daily * monitor INR daily #CHFpEF * BNP: 497.5 (lowest it has been on any admission) * Echo( 12/17): EF: 60-65%, E/A reversal consistent with diastolic pathology, mild AR +TR + MR, pulmonary artery pressure 27 mm Hg * echo reviewed above #CKD - baseline ~3.6 * Cr rising to 4.6, nephro consulted #FEN * no IVF, encourage PO intake as Pt. has been having decreased appetite, being mindful of an upper limit of 2L * replete as needed * Diabetic/Na restricted Diet #DVT Ppx. c/w Warfarin as above currently subtherapeutic #Dispo Med/Surg Pt.'s daughter left her number ([phone] [place] [phone]) for updates Visit type - Emergency Visit Emergency Visit: No - New Patient This patient is new to me today: No - Critical Care Critical Care patient: No
[2018-08-26 08:01] LABS: BASO % 0.1 % (0-2.0); HEMATOCRIT 32.9 % (32.4-45.2); HEMOGLOBIN 10.7 GM/dL (10.7-15.3); LYMPH % 3.9 % (8-40); MCH 30.8 pg (25.7-33.7); MCHC 32.4 g/dl (32.0-36.0); MEAN CELL VOLUME 94.9 fl (80-96); MEAN PLT VOLUME 9.7 fl (7.5-11.1); MONO % 2.9 % (3.8-10.2); NEUT % 93.1 % (42.8-82.8); PLATELET COUNT 187 K/MM3 (134-434); RBC 3.47 M/mm3 (3.60-5.2); RDW 15.4 % (11.6-15.6); WHITE BLOOD COUNT 11.4 K/mm3 (4.0-10.0)
[2018-08-26] MEDS: ALBUTEROL SO4 2.5/IPRATROPIUM 0.5 INH SOL 3 ML VIAL.NEB. NEB SCH ×4 (08:23→20:36)
[2018-08-26 08:25] LABS: PROTHROMBIN TIME (PATIENT) 49.2 SEC (9.7-13.0)
[2018-08-26 08:38] LABS: BLOOD UREA NITROGEN 84.9 mg/dL (7-18); CALCIUM 8.1 mg/dL (8.5-10.1); CREATININE 4.6 mg/dL (0.55-1.3); MAGNESIUM 2.5 mg/dL (1.8-2.4); PHOSPHOROUS 5.7 mg/dL (2.5-4.9); POTASSIUM 4.1 mmol/L (3.5-5.1)
[2018-08-26] MEDS ORDERED: methylPREDNISolone NA SUCC 40 MG/1 ML VIAL IVPUSH SCH (10:00)
[2018-08-26] MEDS: methylPREDNISolone NA SUCC 40 MG/1 ML VIAL IVPUSH SCH ×2 (10:22→21:43)
[2018-08-26] MEDS: SODIUM BICARBONATE 650 MG TABLET PO SCH ×2 (11:05→21:43)
[2018-08-26] MEDS: PANTOPRAZOLE 40 MG TABLET (FP) PO SCH (11:05)
[2018-08-26] MEDS: FERROUS SO4 325 MG TABLET (FP) PO SCH ×2 (11:05→17:37)
[2018-08-26] MEDS: FUROSEMIDE 40 MG TABLET (FP) PO SCH (11:05)
[2018-08-26] MEDS: BUDESONIDE/FORMETEROL FUMARATE 160/4.5 mcg INHALER IH SCH ×2 (11:06→21:43)
[2018-08-26] MEDS: FOLIC ACID 1 MG TABLET (FP) PO SCH (11:06)
[2018-08-26] MEDS: ASCORBIC ACID 500 MG TABLET (FP) PO SCH (11:08)
--- NOTE | 2018-08-26 11:34 | PN ---
Teaching Attending Note Name of Resident: Mohsen Pillai ATTENDING PHYSICIAN STATEMENT I saw and evaluated the patient. I reviewed the resident's note and discussed the case with the resident. I agree with the resident's findings and plan as documented. SUBJECTIVE: Patient has no complaints. She says her breathing is sometimes good and sometimes bad. She is comfortable lying in bed but becomes dyspneic when she sits. OBJECTIVE: Vital Signs Period Temp Pulse Resp BP Sys/Renee Pulse Ox Last 24 Hr 97.6 F-98.5 F 65-69 20-20 122-144/49-68 95-100 HEART: S1S2, RRR LUNGS: Clear with diminished BS ABDOMEN: Soft, non-tender, non-distended, normal BS EXTREMITIES: No edema Laboratory Results - last 24 hr 08/25/18 08/25/18 08/25/18 11:52 12:05 17:19 WBC RBC Hgb Hct MCV MCH MCHC RDW Plt Count MPV Absolute Neuts (auto) Neutrophils % Lymphocytes % Monocytes % Eosinophils % Basophils % Nucleated RBC % PT with INR Sodium Potassium Chloride Carbon Dioxide Anion Gap BUN Creatinine Est GFR (CKD-EPI)AfAm Est GFR (CKD-EPI)NonAf POC Glucometer [phone] Random Glucose Calcium Phosphorus Magnesium Urine Color Yellow Urine Appearance Clear Urine pH 5.0 Ur Specific [place] 1.015 Urine Protein 2+ H Urine Glucose (UA) Trace Urine Ketones Negative Urine Blood Negative Urine Nitrite Negative Urine Bilirubin Negative Urine Urobilinogen 0.2 Ur Leukocyte Esterase Negative Urine WBC (Auto) 1 Urine RBC (Auto) 2 Urine Casts (Auto) 0 U Pathogenic Cast Auto No Result Required. U Epithel Cells (Auto) 2.0 Urine Bacteria (Auto) 64.9 08/25/18 08/25/18 08/25/18 18:45 19:00 21:56 WBC RBC Hgb Hct MCV MCH MCHC RDW Plt Count MPV Absolute Neuts (auto) Neutrophils % Lymphocytes % Monocytes % Eosinophils % Basophils % Nucleated RBC % PT with INR Sodium Potassium Chloride Carbon Dioxide Anion Gap BUN Creatinine Est GFR (CKD-EPI)AfAm Est GFR (CKD-EPI)NonAf POC Glucometer 452 375 Random Glucose 497 H* Calcium Phosphorus Magnesium Urine Color Urine Appearance Urine pH Ur Specific [place] Urine Protein Urine Glucose (UA) Urine Ketones Urine Blood Urine Nitrite Urine Bilirubin Urine Urobilinogen Ur Leukocyte Esterase Urine WBC (Auto) Urine RBC (Auto) Urine Casts (Auto) U Pathogenic Cast Auto U Epithel Cells (Auto) Urine Bacteria (Auto) 08/26/18 08/26/18 08/26/18 05:50 06:10 06:10 WBC 11.4 H RBC 3.47 L Hgb 10.7 Hct 32.9 MCV 94.9 MCH 30.8 MCHC 32.4 RDW 15.4 Plt Count 187 MPV 9.7 Absolute Neuts (auto) 10.6 H Neutrophils % 93.1 H Lymphocytes % 3.9 L Monocytes % 2.9 L Eosinophils % 0.0 Basophils % 0.1 Nucleated RBC % 0 PT with INR 49.20 H Sodium Potassium Chloride Carbon Dioxide Anion Gap BUN Creatinine Est GFR (CKD-EPI)AfAm Est GFR (CKD-EPI)NonAf POC Glucometer 319 Random Glucose Calcium Phosphorus Magnesium Urine Color Urine Appearance Urine pH Ur Specific [place] Urine Protein Urine Glucose (UA) Urine Ketones Urine Blood Urine Nitrite Urine Bilirubin Urine Urobilinogen Ur Leukocyte Esterase Urine WBC (Auto) Urine RBC (Auto) Urine Casts (Auto) U Pathogenic Cast Auto U Epithel Cells (Auto) Urine Bacteria (Auto) 08/26/18 06:10 WBC RBC Hgb Hct MCV MCH MCHC RDW Plt Count MPV Absolute Neuts (auto) Neutrophils % Lymphocytes % Monocytes % Eosinophils % Basophils % Nucleated RBC % PT with INR Sodium 136 Potassium 4.1 Chloride 103 Carbon Dioxide 19 L Anion Gap 14 BUN 84.9 H Creatinine 4.6 H Est GFR (CKD-EPI)AfAm 9.81 Est GFR (CKD-EPI)NonAf 8.46 POC Glucometer Random Glucose 312 H* Calcium 8.1 L Phosphorus 5.7 H Magnesium 2.5 H Urine Color Urine Appearance Urine pH Ur Specific [place] Urine Protein Urine Glucose (UA) Urine Ketones Urine Blood Urine Nitrite Urine Bilirubin Urine Urobilinogen Ur Leukocyte Esterase Urine WBC (Auto) Urine RBC (Auto) Urine Casts (Auto) U Pathogenic Cast Auto U Epithel Cells (Auto) Urine Bacteria (Auto) Current Medications Generic Name Dose Route Start Last Admin Trade Name Freq PRN Reason Stop Dose Admin Albuterol Sulfate 1 amp 08/25/18 12:19 Ventolin 0.083% Nebulizer Soln - NEB Q6H PRN SHORT OF BREATH/WHEEZING Albuterol/Ipratropium 1 amp 08/25/18 12:00 08/26/18 08:23 Duoneb - NEB Not Given RQID ERMA Ascorbic Acid 1,000 mg 08/23/18 10:00 08/26/18 11:08 Vitamin C - PO 1,000 mg DAILY ERMA Administration Budesonide/Formoterol Fumarate 2 puff 08/23/18 10:00 08/26/18 11:06 Symbicort 160/4.5mcg - IH 2 puff BID ERMA Administration Diltiazem HCl 120 mg 08/23/18 10:00 08/26/18 11:05 Cardizem Cd - PO 120 mg DAILY ERMA Administration Ferrous Sulfate 325 mg 08/22/18 22:00 08/26/18 11:05 Feosol - PO 325 mg BIDWM ERMA Administration Folic Acid 1 mg 08/23/18 10:00 08/26/18 11:06 Folic Acid - PO 1 mg DAILY ERMA Administration Furosemide 40 mg 08/23/18 10:00 08/26/18 11:05 Lasix - PO 40 mg DAILY ERMA Administration Hydralazine HCl 100 mg 08/24/18 14:00 08/26/18 06:18 Apresoline - PO 100 mg TID ERMA Administration Insulin Aspart 1 vial 08/25/18 18:53 08/26/18 06:17 Novolog Vial Sliding Scale - SQ 8 units ACHS [facility] Administration Protocol Insulin Detemir 24 units 08/25/18 18:54 08/25/18 22:18 Levemir Vial SQ 24 units HS [facility] Administration Methylprednisolone Sodium Succinate 40 mg 08/25/18 22:00 08/26/18 10:22 Solu-Medrol - IVPUSH 40 mg BID ERMA Administration Pantoprazole Sodium 40 mg 08/23/18 10:00 08/26/18 11:05 Protonix - PO 40 mg DAILY ERMA Administration Sodium Bicarbonate 650 mg 08/22/18 22:00 08/26/18 11:05 Sodium Bicarbonate - PO 650 mg BID ERMA Administration Warfarin Sodium 4 mg 08/25/18 18:00 08/25/18 17:21 Coumadin - PO 4 mg DAILY@1800 ERMA Administration ASSESSMENT AND PLAN: This is a 77 year old woman with a history of HTN, atrial fib, CAD, [place], chronic diastolic heart failure, pulm HTN, type 2 DM, LLE DVT, stage 5 CKD, GERD, overactive bladder who presented to the ED with SOB. 1. Acute exacerbation of COPD - SoluMedrol being tapered - Continue Symbicort, DuoNeb, albuterol nebs as needed - Check chest CT 2. History of atrial fibrillation, ablation - Remains in sinus rhythm - Continue Cardizem CD - Continue Coumadin dosed based on INR 3. HTN - Continue Cardizem CD, Hydralazine, Lasix 4. Chronic diastolic heart failure - Stable - Continue Lasix 5. Stage 5 CKD - Creatinine increasing - Continue sodium bicarb - Renal consult 6. CAD, history of [place] 7. Pulmonary HTN 8. Type 2 DM - Continue Levemir, Novolog sliding scale 9. GERD - Continue Protonix 10. Overactive bladder 11. History of LLE DVT
[2018-08-26 12:10] LABS: INR 4.11 (0.83-1.09)
[2018-08-26 12:49] LABS: ANISOCYTOSIS 2+; MACROCYTOSIS 1+; PLATELET ESTIMATE NORMAL
--- NOTE | 2018-08-26 13:18 | PN ---
Progress Note (short form) - Note Progress Note: Feels better. Used NIPPV for a few hours overnight. Less SOB and cough. Intake & Output 08/23/18 08/24/18 08/25/18 08/26/18 23:59 23:59 23:59 23:59 Intake Total 360 1280 650 720 Output Total 300 Balance 360 1280 350 720 Weight 199 lb 6.656 oz 199 lb 197 lb 9.6 oz 197 lb 6.4 oz Last Vital Signs Temp Pulse Resp BP Pulse Ox 98.5 F 65 20 139/50 L 97 08/26/18 06:00 08/26/18 06:00 08/26/18 06:00 08/26/18 06:00 08/26/18 09:00 Active Medications Albuterol Sulfate (Ventolin 0.083% Nebulizer Soln -) 1 amp NEB Q6H PRN PRN Reason: SHORT OF BREATH/WHEEZING Albuterol/Ipratropium (Duoneb -) 1 amp NEB RQID [facility] Last Admin: 08/26/18 11:58 Dose: 1 amp Ascorbic Acid (Vitamin C -) 1,000 mg PO DAILY [facility] Last Admin: 08/26/18 11:08 Dose: 1,000 mg Budesonide/Formoterol Fumarate (Symbicort 160/4.5mcg -) 2 puff IH BID [facility] Last Admin: 08/26/18 11:06 Dose: 2 puff Diltiazem HCl (Cardizem Cd -) 120 mg PO DAILY [facility] Last Admin: 08/26/18 11:05 Dose: 120 mg Ferrous Sulfate (Feosol -) 325 mg PO BIDWM [facility] Last Admin: 08/26/18 11:05 Dose: 325 mg Folic Acid (Folic Acid -) 1 mg PO DAILY [facility] Last Admin: 08/26/18 11:06 Dose: 1 mg Furosemide (Lasix -) 40 mg PO DAILY [facility] Last Admin: 08/26/18 11:05 Dose: 40 mg Hydralazine HCl (Apresoline -) 100 mg PO TID [facility] Last Admin: 08/26/18 06:18 Dose: 100 mg Insulin Aspart (Novolog Vial Sliding Scale -) 1 vial SQ ACHS [facility]; Protocol Last Admin: 08/26/18 12:28 Dose: 8 units Insulin Detemir (Levemir Vial) 24 units SQ HS [facility] Last Admin: 08/25/18 22:18 Dose: 24 units Methylprednisolone Sodium Succinate (Solu-Medrol -) 40 mg IVPUSH BID [facility] Last Admin: 08/26/18 10:22 Dose: 40 mg Pantoprazole Sodium (Protonix -) 40 mg PO DAILY [facility] Last Admin: 08/26/18 11:05 Dose: 40 mg Sodium Bicarbonate (Sodium Bicarbonate -) 650 mg PO BID [facility] Last Admin: 08/26/18 11:05 Dose: 650 mg Warfarin Sodium (Coumadin -) 4 mg PO DAILY@1800 [facility] Last Admin: 08/25/18 17:21 Dose: 4 mg Constitutional: Yes: Well Nourished, NAD Eyes: Yes: WNL HENT: Yes: WNL Neck: Yes: WNL Cardiovascular: Yes: S1, S2 Respiratory: Yes: Diminished at the bases, No wheeze Gastrointestinal: Yes: Normal Bowel Sounds, Soft Extremities: Yes: WNL Edema: No Labs: Laboratory Results - last 24 hr 08/25/18 08/25/18 08/25/18 17:19 18:45 19:00 WBC RBC Hgb Hct MCV MCH MCHC RDW Plt Count MPV Absolute Neuts (auto) Neutrophils % Lymphocytes % Monocytes % Eosinophils % Basophils % Nucleated RBC % PT with INR INR Sodium Potassium Chloride Carbon Dioxide Anion Gap BUN Creatinine Est GFR (CKD-EPI)AfAm Est GFR (CKD-EPI)NonAf POC Glucometer 414 452 Random Glucose 497 H* Calcium Phosphorus Magnesium 08/25/18 08/26/18 08/26/18 21:56 05:50 06:10 WBC 11.4 H RBC 3.47 L Hgb 10.7 Hct 32.9 MCV 94.9 MCH 30.8 MCHC 32.4 RDW 15.4 Plt Count 187 MPV 9.7 Absolute Neuts (auto) 10.6 H Neutrophils % 93.1 H Lymphocytes % 3.9 L Monocytes % 2.9 L Eosinophils % 0.0 Basophils % 0.1 Nucleated RBC % 0 PT with INR INR Sodium Potassium Chloride Carbon Dioxide Anion Gap BUN Creatinine Est GFR (CKD-EPI)AfAm Est GFR (CKD-EPI)NonAf POC Glucometer 375 319 Random Glucose Calcium Phosphorus Magnesium 08/26/18 08/26/18 08/26/18 06:10 06:10 11:59 WBC RBC Hgb Hct MCV MCH MCHC RDW Plt Count MPV Absolute Neuts (auto) Neutrophils % Lymphocytes % Monocytes % Eosinophils % Basophils % Nucleated RBC % PT with INR 49.20 H INR 4.11 H* Sodium 136 Potassium 4.1 Chloride 103 Carbon Dioxide 19 L Anion Gap 14 BUN 84.9 H Creatinine 4.6 H Est GFR (CKD-EPI)AfAm 9.81 Est GFR (CKD-EPI)NonAf 8.46 POC Glucometer 330 Random Glucose 312 H* Calcium 8.1 L Phosphorus 5.7 H Magnesium 2.5 H Assessment/Plan Problem List - Problems (1) Afib Code(s): I48.91 - UNSPECIFIED ATRIAL FIBRILLATION Qualifiers: Atrial fibrillation type: unspecified Qualified Code(s): I48.91 - Unspecified atrial fibrillation (2) Anemia Code(s): D64.9 - ANEMIA, UNSPECIFIED (3) Asthma Code(s): J45.909 - UNSPECIFIED ASTHMA, UNCOMPLICATED (4) CKD (chronic kidney disease) Code(s): N18.9 - CHRONIC KIDNEY DISEASE, UNSPECIFIED (5) COPD (chronic obstructive pulmonary disease) Code(s): J44.9 - CHRONIC OBSTRUCTIVE PULMONARY DISEASE, UNSPECIFIED Qualifiers: COPD type: chronic bronchitis (6) Diastolic CHF Code(s): I50.30 - UNSPECIFIED DIASTOLIC (CONGESTIVE) HEART FAILURE Qualifiers: Heart failure chronicity: chronic Qualified Code(s): I50.32 - Chronic diastolic (congestive) heart failure (7) IDDM (insulin dependent diabetes mellitus) Code(s): E11.9 - TYPE 2 DIABETES MELLITUS WITHOUT COMPLICATIONS; Z79.4 - [facility] (CURRENT) USE OF INSULIN (8) Migraine headache Code(s): G43.909 - MIGRAINE, UNSP, NOT INTRACTABLE, WITHOUT STATUS MIGRAINOSUS Qualifiers: Migraine type: other Intractability: not intractable (9) Paroxysmal atrial fibrillation with RVR Code(s): I48.0 - PAROXYSMAL ATRIAL FIBRILLATION (10) Shortness of breath Code(s): R06.02 - SHORTNESS OF BREATH (11) CAD (coronary artery disease) Code(s): I25.10 - ATHSCL HEART DISEASE OF [place] CORONARY ARTERY W/O ANG PCTRS (12) CHF (congestive heart failure) Code(s): I50.9 - HEART FAILURE, UNSPECIFIED (13) Depression Code(s): F32.9 - MAJOR DEPRESSIVE DISORDER, SINGLE EPISODE, UNSPECIFIED Qualifiers: Depression Type: unspecified Qualified Code(s): F32.9 - Major depressive disorder, single episode, unspecified (14) Gastroesophageal reflux disease Code(s): K21.9 - GASTRO-ESOPHAGEAL REFLUX DISEASE WITHOUT ESOPHAGITIS (15) History of DVT (deep vein thrombosis) Code(s): Z86.718 - PERSONAL HISTORY OF OTHER VENOUS THROMBOSIS AND EMBOLISM (16) Hyperlipidemia Code(s): E78.5 - HYPERLIPIDEMIA, UNSPECIFIED Qualifiers: Hyperlipidemia type: pure hypercholesterolemia Qualified Code(s): E78.00 - Pure hypercholesterolemia, unspecified; E78.0 - Pure hypercholesterolemia (17) Hypertension Code(s): I10 - ESSENTIAL (PRIMARY) HYPERTENSION Qualifiers: Hypertension type: essential hypertension Qualified Code(s): I10 - Essential (primary) hypertension (18) Peripheral arterial disease Code(s): I73.9 - PERIPHERAL VASCULAR DISEASE, UNSPECIFIED (19) Type 2 diabetes mellitus Code(s): E11.9 - TYPE 2 DIABETES MELLITUS WITHOUT COMPLICATIONS Qualifiers: Diabetes mellitus complication status: with circulatory complication (20) Pulmonary hypertension Code(s): I27.2 - OTHER SECONDARY PULMONARY HYPERTENSION * DO NOT USE * Assessment/Plan Can likely change to Prednisone tomorrow Inhaled BD [place] O2 as needed NIPPV as needed Dr Garner Problem List - Problems (1) Afib Code(s): I48.91 - UNSPECIFIED ATRIAL FIBRILLATION Qualifiers: Atrial fibrillation type: unspecified Qualified Code(s): I48.91 - Unspecified atrial fibrillation (2) Anemia Code(s): D64.9 - ANEMIA, UNSPECIFIED (3) Asthma Code(s): J45.909 - UNSPECIFIED ASTHMA, UNCOMPLICATED (4) CKD (chronic kidney disease) Code(s): N18.9 - CHRONIC KIDNEY DISEASE, UNSPECIFIED (5) COPD (chronic obstructive pulmonary disease) Code(s): J44.9 - CHRONIC OBSTRUCTIVE PULMONARY DISEASE, UNSPECIFIED Qualifiers: COPD type: chronic bronchitis (6) Diastolic CHF Code(s): I50.30 - UNSPECIFIED DIASTOLIC (CONGESTIVE) HEART FAILURE Qualifiers: Heart failure chronicity: chronic Qualified Code(s): I50.32 - Chronic diastolic (congestive) heart failure (7) IDDM (insulin dependent diabetes mellitus) Code(s): E11.9 - TYPE 2 DIABETES MELLITUS WITHOUT COMPLICATIONS; 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 (8) Migraine headache Code(s): G43.909 - MIGRAINE, UNSP, NOT INTRACTABLE, WITHOUT STATUS MIGRAINOSUS Qualifiers: Migraine type: other Intractability: not intractable (9) Paroxysmal atrial fibrillation with RVR Code(s): I48.0 - PAROXYSMAL ATRIAL FIBRILLATION (10) Shortness of breath Code(s): R06.02 - SHORTNESS OF BREATH (11) CAD (coronary artery disease) Code(s): I25.10 - ATHSCL HEART DISEASE OF [place] CORONARY ARTERY W/O ANG PCTRS (12) CHF (congestive heart failure) Code(s): I50.9 - HEART FAILURE, UNSPECIFIED (13) Depression Code(s): F32.9 - MAJOR DEPRESSIVE DISORDER, SINGLE EPISODE, UNSPECIFIED Qualifiers: Depression Type: unspecified Qualified Code(s): F32.9 - Major depressive disorder, single episode, unspecified (14) Gastroesophageal reflux disease Code(s): K21.9 - GASTRO-ESOPHAGEAL REFLUX DISEASE WITHOUT ESOPHAGITIS (15) History of DVT (deep vein thrombosis) Code(s): Z86.718 - PERSONAL HISTORY OF OTHER VENOUS THROMBOSIS AND EMBOLISM (16) Hyperlipidemia Code(s): E78.5 - HYPERLIPIDEMIA, UNSPECIFIED Qualifiers: Hyperlipidemia type: pure hypercholesterolemia Qualified Code(s): E78.00 - Pure hypercholesterolemia, unspecified; E78.0 - Pure hypercholesterolemia (17) Hypertension Code(s): I10 - ESSENTIAL (PRIMARY) HYPERTENSION Qualifiers: Hypertension type: essential hypertension Qualified Code(s): I10 - Essential (primary) hypertension (18) Peripheral arterial disease Code(s): I73.9 - PERIPHERAL VASCULAR DISEASE, UNSPECIFIED (19) Type 2 diabetes mellitus Code(s): E11.9 - TYPE 2 DIABETES MELLITUS WITHOUT COMPLICATIONS Qualifiers: Diabetes mellitus complication status: with circulatory complication (20) Pulmonary hypertension Code(s): I27.2 - OTHER SECONDARY PULMONARY HYPERTENSION * DO NOT USE *
[2018-08-26] MEDS: WARFARIN NA 2 MG TABLET (UD) PO SCH (17:36)
[2018-08-26] MEDS: INSULIN (LEVEMIR) 100 UNITS/ML UNITS SQ SCH (21:42)
[2018-08-27] MEDS: hydrALAZINE HCL 50 MG TABLET (FP) PO SCH ×3 (06:26→21:58)
[2018-08-27] MEDS: INSULIN SLIDING SCALE (NOVOLOG) 1 VIAL SQ SCH ×3 (06:27→21:57)
[2018-08-27 07:00] LABS: BASO % 0.1 % (0-2.0); HEMATOCRIT 32.8 % (32.4-45.2); HEMOGLOBIN 10.9 GM/dL (10.7-15.3); LYMPH % 3.3 % (8-40); MCH 31.6 pg (25.7-33.7); MCHC 33.3 g/dl (32.0-36.0); MEAN CELL VOLUME 94.9 fl (80-96); MEAN PLT VOLUME 9.6 fl (7.5-11.1); NEUT % 93.6 % (42.8-82.8); RBC 3.46 M/mm3 (3.60-5.2); RDW 15.1 % (11.6-15.6); WHITE BLOOD COUNT 10.5 K/mm3 (4.0-10.0)
[2018-08-27] MEDS: ALBUTEROL SO4 2.5/IPRATROPIUM 0.5 INH SOL 3 ML VIAL.NEB. NEB SCH ×4 (07:00→20:34)
[2018-08-27 07:20] LABS: BLOOD UREA NITROGEN 93.8 mg/dL (7-18); CREATININE 4.8 mg/dL (0.55-1.3); MAGNESIUM 2.3 mg/dL (1.8-2.4); PHOSPHOROUS 4.4 mg/dL (2.5-4.9); POTASSIUM 4.2 mmol/L (3.5-5.1)
[2018-08-27 07:37] LABS: INR 2.98 (0.83-1.09); PROTHROMBIN TIME (PATIENT) 35.6 SEC (9.7-13.0)
[2018-08-27 07:48] LABS: PLATELET COUNT 188 K/MM3 (134-434)
--- NOTE | 2018-08-27 09:05 | PN ---
Physical Exam: SUBJECTIVE: Patient seen and examined at bedside. No overnight events or complaints. OBJECTIVE: Vital Signs Period Temp Pulse Resp BP Sys/Renee Pulse Ox Last 24 Hr 97.9 F-98.5 F 65-75 20-20 143-169/55-66 97 GENERAL: A&Ox3, NAD HEENT: NC/AT, PERRLA, EOMI, MMM NECK: Normal range of motion, supple without lymphadenopathy, JVD, or masses. 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 systems w/o focal deficit PSYCHIATRIC: Cooperative SKIN: Warm, dry, normal turgor Laboratory Results - last 24 hr 08/26/18 08/26/18 08/26/18 06:10 06:10 11:59 WBC RBC Hgb Hct MCV MCH MCHC RDW Plt Count MPV Absolute Neuts (auto) Neutrophils % Neutrophils % (Manual) 92.8 H Band Neutrophils % 0.0 Lymphocytes % Lymphocytes % (Manual) 3.1 L Monocytes % Monocytes % (Manual) 3 L D Eosinophils % Eosinophils % (Manual) 0.0 Basophils % Basophils % (Manual) 0.0 Myelocytes % (Man) 1 D Promyelocytes % (Man) 0 Blast Cells % (Manual) 0 Nucleated RBC % Metamyelocytes 0 Hypochromia 0 Platelet Estimate Normal Polychromasia 0 Poikilocytosis 0 Anisocytosis 2+ Microcytosis 0 Macrocytosis 1+ PT with INR INR 4.11 H* Sodium Potassium Chloride Carbon Dioxide Anion Gap BUN Creatinine Est GFR (CKD-EPI)AfAm Est GFR (CKD-EPI)NonAf POC Glucometer 330 Random Glucose Calcium Phosphorus Magnesium 08/26/18 08/26/18 08/26/18 17:43 20:17 22:26 WBC RBC Hgb Hct MCV MCH MCHC RDW Plt Count MPV Absolute Neuts (auto) Neutrophils % Neutrophils % (Manual) Band Neutrophils % Lymphocytes % Lymphocytes % (Manual) Monocytes % Monocytes % (Manual) Eosinophils % Eosinophils % (Manual) Basophils % Basophils % (Manual) Myelocytes % (Man) Promyelocytes % (Man) Blast Cells % (Manual) Nucleated RBC % Metamyelocytes Hypochromia Platelet Estimate Polychromasia Poikilocytosis Anisocytosis Microcytosis Macrocytosis PT with INR INR Sodium Potassium Chloride Carbon Dioxide Anion Gap BUN Creatinine Est GFR (CKD-EPI)AfAm Est GFR (CKD-EPI)NonAf POC Glucometer 385 430 398 Random Glucose Calcium Phosphorus Magnesium 08/27/18 08/27/18 08/27/18 05:10 05:30 05:36 WBC 10.5 H RBC 3.46 L Hgb 10.9 Hct 32.8 MCV 94.9 MCH 31.6 MCHC 33.3 RDW 15.1 Plt Count 188 MPV 9.6 Absolute Neuts (auto) 9.9 H Neutrophils % 93.6 H Neutrophils % (Manual) Band Neutrophils % Lymphocytes % 3.3 L Lymphocytes % (Manual) Monocytes % 3.0 L Monocytes % (Manual) Eosinophils % 0.0 Eosinophils % (Manual) Basophils % 0.1 Basophils % (Manual) Myelocytes % (Man) Promyelocytes % (Man) Blast Cells % (Manual) Nucleated RBC % 0 Metamyelocytes Hypochromia Platelet Estimate Polychromasia Poikilocytosis Anisocytosis Microcytosis Macrocytosis PT with INR INR Sodium 137 Potassium 4.2 Chloride 104 Carbon Dioxide 21 Anion Gap 12 BUN 93.8 H Creatinine 4.8 H Est GFR (CKD-EPI)AfAm 9.31 Est GFR (CKD-EPI)NonAf 8.04 POC Glucometer 219 Random Glucose 220 H Calcium 8.0 L Phosphorus 4.4 Magnesium 2.3 08/27/18 05:36 WBC RBC Hgb Hct MCV MCH MCHC RDW Plt Count MPV Absolute Neuts (auto) Neutrophils % Neutrophils % (Manual) Band Neutrophils % Lymphocytes % Lymphocytes % (Manual) Monocytes % Monocytes % (Manual) Eosinophils % Eosinophils % (Manual) Basophils % Basophils % (Manual) Myelocytes % (Man) Promyelocytes % (Man) Blast Cells % (Manual) Nucleated RBC % Metamyelocytes Hypochromia Platelet Estimate Polychromasia Poikilocytosis Anisocytosis Microcytosis Macrocytosis PT with INR 35.60 H INR 2.98 H Sodium Potassium Chloride Carbon Dioxide Anion Gap BUN Creatinine Est GFR (CKD-EPI)AfAm Est GFR (CKD-EPI)NonAf POC Glucometer Random Glucose Calcium Phosphorus Magnesium Active Medications Generic Name Dose Route Start Last Admin Trade Name Freq PRN Reason Stop Dose Admin Albuterol Sulfate 1 amp 08/25/18 12:19 Ventolin 0.083% Nebulizer Soln - NEB Q6H PRN SHORT OF BREATH/WHEEZING Albuterol/Ipratropium 1 amp 08/25/18 12:00 08/27/18 07:00 Duoneb - NEB 1 amp RQID [facility] Administration Ascorbic Acid 1,000 mg 08/23/18 10:00 08/26/18 11:08 Vitamin C - PO 1,000 mg DAILY [facility] Administration Budesonide/Formoterol Fumarate 2 puff 08/23/18 10:00 08/26/18 21:43 Symbicort 160/4.5mcg - IH 2 puff BID [facility] Administration Diltiazem HCl 120 mg 08/23/18 10:00 08/26/18 11:05 Cardizem Cd - PO 120 mg DAILY [facility] Administration Ferrous Sulfate 325 mg 08/22/18 22:00 08/26/18 17:37 Feosol - PO 325 mg BIDWM [facility] Administration Folic Acid 1 mg 08/23/18 10:00 08/26/18 11:06 Folic Acid - PO 1 mg DAILY [facility] Administration Furosemide 40 mg 08/23/18 10:00 08/26/18 11:05 Lasix - PO 40 mg DAILY [facility] Administration Hydralazine HCl 100 mg 08/24/18 14:00 08/27/18 06:26 Apresoline - PO 100 mg TID [facility] Administration Insulin Aspart 1 vial 08/25/18 18:53 08/27/18 06:27 Novolog Vial Sliding Scale - SQ 4 units ACHS [facility] Administration Protocol Insulin Detemir 24 units 08/25/18 18:54 08/26/18 21:42 Levemir Vial SQ 24 units HS [facility] Administration Methylprednisolone Sodium Succinate 40 mg 08/25/18 22:00 08/26/18 21:43 Solu-Medrol - IVPUSH 40 mg BID [facility] Administration Pantoprazole Sodium 40 mg 08/23/18 10:00 08/26/18 11:05 Protonix - PO 40 mg DAILY [facility] Administration Sodium Bicarbonate 650 mg 08/22/18 22:00 08/26/18 21:43 Sodium Bicarbonate - PO 650 mg BID [facility] Administration Warfarin Sodium 4 mg 08/25/18 18:00 08/26/18 17:36 Coumadin - PO Not Given DAILY@1800 [facility] ASSESSMENT/PLAN: 77 y.o. F w/ PMHx. of HTN, NIDDM, Afib(s/p ablation on Coumadin), LLE DVT, CHFpEF, MA( s/p catherization), CKD Stage 4, GERD, and over active bladder presents after waking up this morning short of breath. #acute hypoxic respiratory failure due to COPD exacerbation (not on home O2) * c/w Solumedrol tapered to 40mg BID * bronchodilators standing and PRN * pulmonary following * minimal clinical improvement thus far * dry chest CT ordered #Pulmonary HTN * Pulm. Art Pressure 27mm Hg on Echo in November 2018---> 33mmHg on Chest CT in March * Pt.s status and clinical symptoms improved too quickly for this to be the main component * echo reviewed above #Afib * EKG: NSR, Q waves in V1, QTc: 450 * INR up to 4.05, decrease warfarin from 5 to 4 daily * c/w Diltiazem 120mg Daily * monitor INR daily #CHFpEF * BNP: 497.5 (lowest it has been on any admission) * Echo( 12/17): EF: 60-65%, E/A reversal consistent with diastolic pathology, mild AR +TR + MR, pulmonary artery pressure 27 mm Hg * echo reviewed above #CKD - baseline ~3.6 * Cr rising to 4.8, nephro consulted #FEN * no IVF, encourage PO intake as Pt. has been having decreased appetite, being mindful of an upper limit of 2L * replete as needed * Diabetic/Na restricted Diet #DVT Ppx. c/w Warfarin as above, now in therapeutic range #Dispo Med/Surg Pt.'s daughter left her number ([phone] OR [phone]) for updates Visit type - Emergency Visit Emergency Visit: No - New Patient This patient is new to me today: No - Critical Care Critical Care patient: No
[2018-08-27] MEDS: FERROUS SO4 325 MG TABLET (FP) PO SCH ×2 (09:32→17:44)
[2018-08-27] MEDS: FOLIC ACID 1 MG TABLET (FP) PO SCH (09:32)
[2018-08-27] MEDS: SODIUM BICARBONATE 650 MG TABLET PO SCH ×2 (09:32→21:58)
[2018-08-27] MEDS: ASCORBIC ACID 500 MG TABLET (FP) PO SCH (09:32)
[2018-08-27] MEDS: PANTOPRAZOLE 40 MG TABLET (FP) PO SCH (09:32)
[2018-08-27] MEDS: FUROSEMIDE 40 MG TABLET (FP) PO SCH (09:32)
[2018-08-27] MEDS: BUDESONIDE/FORMETEROL FUMARATE 160/4.5 mcg INHALER IH SCH ×2 (09:33→21:58)
[2018-08-27] MEDS: methylPREDNISolone NA SUCC 40 MG/1 ML VIAL IVPUSH SCH (09:33)
[2018-08-27 10:13] LABS: ANISOCYTOSIS 1+; MACROCYTOSIS 1+; OVALOCYTE 1+; PLATELET ESTIMATE NORMAL
--- NOTE | 2018-08-27 10:49 | PN ---
Progress Note, Physician History of Present Illness: pulmonary alert,comfortable at rest,+ [place],-cp - Current Medication List Current Medications: Active Medications Albuterol Sulfate (Ventolin 0.083% Nebulizer Soln -) 1 amp NEB Q6H PRN PRN Reason: SHORT OF BREATH/WHEEZING Albuterol/Ipratropium (Duoneb -) 1 amp NEB RQID [facility] Last Admin: 08/27/18 07:00 Dose: 1 amp Ascorbic Acid (Vitamin C -) 1,000 mg PO DAILY [facility] Last Admin: 08/27/18 09:32 Dose: 1,000 mg Budesonide/Formoterol Fumarate (Symbicort 160/4.5mcg -) 2 puff IH BID [facility] Last Admin: 08/27/18 09:33 Dose: 2 puff Diltiazem HCl (Cardizem Cd -) 120 mg PO DAILY [facility] Last Admin: 08/27/18 09:32 Dose: 120 mg Ferrous Sulfate (Feosol -) 325 mg PO BIDWM [facility] Last Admin: 08/27/18 09:32 Dose: 325 mg Folic Acid (Folic Acid -) 1 mg PO DAILY [facility] Last Admin: 08/27/18 09:32 Dose: 1 mg Furosemide (Lasix -) 40 mg PO DAILY [facility] Last Admin: 08/27/18 09:32 Dose: 40 mg Hydralazine HCl (Apresoline -) 100 mg PO TID [facility] Last Admin: 08/27/18 06:26 Dose: 100 mg Insulin Aspart (Novolog Vial Sliding Scale -) 1 vial SQ [facility]; Protocol Last Admin: 08/27/18 06:27 Dose: 4 units Insulin Detemir (Levemir Vial) 24 units SQ HS [facility] Last Admin: 08/26/18 21:42 Dose: 24 units Methylprednisolone Sodium Succinate (Solu-Medrol -) 40 mg IVPUSH BID [facility] Last Admin: 08/27/18 09:33 Dose: 40 mg Pantoprazole Sodium (Protonix -) 40 mg PO DAILY [facility] Last Admin: 08/27/18 09:32 Dose: 40 mg Sodium Bicarbonate (Sodium Bicarbonate -) 650 mg PO BID [facility] Last Admin: 08/27/18 09:32 Dose: 650 mg Warfarin Sodium (Coumadin -) 4 mg PO DAILY@1800 [facility] Last Admin: 08/26/18 17:36 Dose: Not Given - Objective Vital Signs: Vital Signs Temperature 98.2 F 08/27/18 05:30 Pulse Rate 65 08/27/18 05:30 Respiratory Rate 20 08/27/18 05:30 Blood Pressure 157/56 L 08/27/18 05:30 O2 Sat by Pulse Oximetry (%) 97 08/26/18 20:28 Constitutional: Yes: Well Nourished, Calm Eyes: Yes: WNL HENT: Yes: WNL Neck: Yes: WNL Cardiovascular: Yes: Pulse Irregular, S1, S2 Respiratory: Yes: CTA Bilaterally Gastrointestinal: Yes: Normal Bowel Sounds, Soft Extremities: Yes: WNL Edema: No Labs: CBC, BMP 08/27/18 05:36 08/27/18 05:30 INR, PTT INR 2.98 (0.83-1.09) H 08/27/18 05:36 Assessment/Plan Problem List - Problems (1) Afib Code(s): I48.91 - UNSPECIFIED ATRIAL FIBRILLATION Qualifiers: Atrial fibrillation type: unspecified Qualified Code(s): I48.91 - Unspecified atrial fibrillation (2) Anemia Code(s): D64.9 - ANEMIA, UNSPECIFIED (3) Asthma Code(s): J45.909 - UNSPECIFIED ASTHMA, UNCOMPLICATED (4) CKD (chronic kidney disease) Code(s): N18.9 - CHRONIC KIDNEY DISEASE, UNSPECIFIED (5) COPD (chronic obstructive pulmonary disease) Code(s): J44.9 - CHRONIC OBSTRUCTIVE PULMONARY DISEASE, UNSPECIFIED Qualifiers: COPD type: chronic bronchitis (6) Diastolic CHF Code(s): I50.30 - UNSPECIFIED DIASTOLIC (CONGESTIVE) HEART FAILURE Qualifiers: Heart failure chronicity: chronic Qualified Code(s): I50.32 - Chronic diastolic (congestive) heart failure (7) IDDM (insulin dependent diabetes mellitus) Code(s): E11.9 - TYPE 2 DIABETES MELLITUS WITHOUT COMPLICATIONS; Z79.4 - ALF (CURRENT) USE OF INSULIN (8) Migraine headache Code(s): G43.909 - MIGRAINE, UNSP, NOT INTRACTABLE, WITHOUT STATUS MIGRAINOSUS Qualifiers: Migraine type: other Intractability: not intractable (9) Paroxysmal atrial fibrillation with RVR Code(s): I48.0 - PAROXYSMAL ATRIAL FIBRILLATION (10) Shortness of breath Code(s): R06.02 - SHORTNESS OF BREATH (11) CAD (coronary artery disease) Code(s): I25.10 - ATHSCL HEART DISEASE OF [place] CORONARY ARTERY W/O ANG PCTRS (12) CHF (congestive heart failure) Code(s): I50.9 - HEART FAILURE, UNSPECIFIED (13) Depression Code(s): F32.9 - MAJOR DEPRESSIVE DISORDER, SINGLE EPISODE, UNSPECIFIED Qualifiers: Depression Type: unspecified Qualified Code(s): F32.9 - Major depressive disorder, single episode, unspecified (14) Gastroesophageal reflux disease Code(s): K21.9 - GASTRO-ESOPHAGEAL REFLUX DISEASE WITHOUT ESOPHAGITIS (15) History of DVT (deep vein thrombosis) Code(s): Z86.718 - PERSONAL HISTORY OF OTHER VENOUS THROMBOSIS AND EMBOLISM (16) Hyperlipidemia Code(s): E78.5 - HYPERLIPIDEMIA, UNSPECIFIED Qualifiers: Hyperlipidemia type: pure hypercholesterolemia Qualified Code(s): E78.00 - Pure hypercholesterolemia, unspecified; E78.0 - Pure hypercholesterolemia (17) Hypertension Code(s): I10 - ESSENTIAL (PRIMARY) HYPERTENSION Qualifiers: Hypertension type: essential hypertension Qualified Code(s): I10 - Essential (primary) hypertension (18) Peripheral arterial disease Code(s): I73.9 - PERIPHERAL VASCULAR DISEASE, UNSPECIFIED (19) Type 2 diabetes mellitus Code(s): E11.9 - TYPE 2 DIABETES MELLITUS WITHOUT COMPLICATIONS Qualifiers: Diabetes mellitus complication status: with circulatory complication (20) Pulmonary hypertension Code(s): I27.2 - OTHER SECONDARY PULMONARY HYPERTENSION * DO NOT USE * Assessment/Plan Prednisone 40mg daily Inhaled BD NC O2 as needed DR GOULD
--- NOTE | 2018-08-27 11:39 | CONSULT ---
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 The patient denies chest pain. She denies any urinary complaints. 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: Yes: Peripheral Neuropathy Cardio/Vascular: Yes: AFIB, CHF, HTN, Hyperlipdemia, Other (Atrial flutter s/p ablation, PAD) Pulmonary: Yes: COPD Renal/: Yes: Renal Inusuff (stage 4), Other (Overactive Bladder) Psych: Yes: Depression Endocrine: Yes: Diabetes Mellitus (initially on oral agents, now on insulin) - Past Surgical History Past Surgical History: Yes: Colonoscopy (polyps a few years ago), Hysterectomy ( fibroids), Tubal Ligation, Upper Endoscopy (neg 1+ yrs ago) - Alcohol/Substance Use Hx Alcohol Use: No - Smoking History Smoking history: Former smoker Have you smoked in the past 12 months: No Aproximately how many cigarettes per day: 1 If you are a former smoker, when did you quit?: 1 year ago - Social History Usual Living Arrangement: With Child ADL: Family Assistance History of Recent Travel: No Home Medications - Allergies Allergies/Adverse Reactions: Allergies Allergy/AdvReac Type Severity Reaction Status Date / Time No Known Allergies Allergy Verified 08/22/18 14:41 - Home Medications Home Medications: Ambulatory Orders hydrALAZINE HCL [Apresoline -] 100 mg PO BID 01/28/17 Ferrous Sulfate 325 mg PO BID 02/02/17 Folic Acid 1 mg PO DAILY 12/09/17 Sodium Bicarbonate - 650 mg PO BID #40 tablet 12/11/17 Insulin (Levemir) [Levemir Vial] 20 units SQ HS 12/14/17 Ascorbic Acid [Vitamin C] 1,000 mg PO DAILY 03/08/18 Furosemide 40 mg PO DAILY 01/07/19 Warfarin Sodium [Coumadin] 7.5 mg PO HS 03/09/18 Diltiazem Cd [Cardizem Cd -] 120 mg PO DAILY 28 Days #28 cap.cd.24h 03/11/18 Family Disease History - Family Disease History Family Disease History: Diabetes: Grandparent, Mother, Sister (lung cancer), [place] : Sister Review of Systems - Review of Systems Constitutional: reports: Malaise, Weakness Cardiovascular: reports: Shortness of Breath. denies: Chest Pain Respiratory: reports: Cough, Exercise Intolerance, Orthopnea Genitourinary: denies: Burning, Frequency Musculoskeletal: reports: Back Pain Hematology/Lymphatic: denies: Easily Bruised Physical Exam Vital Signs: Vital Signs Temperature 98.2 F 08/27/18 05:30 Pulse Rate 65 08/27/18 05:30 Respiratory Rate 20 08/27/18 05:30 Blood Pressure 157/56 L 08/27/18 05:30 O2 Sat by Pulse Oximetry (%) 97 08/26/18 20:28 Constitutional: Yes: Anxious Eyes: Yes: Conjunctiva Clear HENT: Yes: Normocephalic Neck: Yes: Trachea Midline Cardiovascular: Yes: Pulse Irregular, S1, S2 Respiratory: Yes: CTA Bilaterally, Diminished, On BiPap, Poor Air Entry Gastrointestinal: Yes: Normal Bowel Sounds, Abdomen, Obese Renal/: Yes: Bladder Distention Edema: Yes Edema: LLE: Trace, RLE: Trace Neurological: Yes: Alert, Oriented Psychiatric: Yes: Oriented Labs: CBC, BMP 08/27/18 05:36 08/27/18 05:30 Assessment/Plan This is a [id number] known to our service who has stage IV chronic kidney disease, and admitted now with acute shortness of breath. The acute shortness of breath is related to her COPD, chronic fungal asthma. Acute kidney injury superimposed on chronic kidney disease. Acute azotemia is most likely of hemodynamic nature with altered renal hemodynamics. Some degree of azotemia could also be related to steroid administration. Electrolytes are in acceptable range. Concur with the current management. Will closely monitor the renal functions. There is no emergent indication for renal replacement therapy at this point, but will monitor closely if that becomes a necessity. Thank you Eva Gilmore
--- NOTE | 2018-08-27 13:32 | PN ---
Teaching Attending Note Name of Resident: Mohsen Pillai ATTENDING PHYSICIAN STATEMENT I saw and evaluated the patient. I reviewed the resident's note and discussed the case with the resident. I agree with the resident's findings and plan as documented. SUBJECTIVE: Seen and examined at bedside, on BIPAP. Still feels JOHNSON with minimal exertion. She is tired, denies cp, sob, palpitations, n/v/d. OBJECTIVE: Vital Signs - 24 hr 08/26/18 08/26/18 08/26/18 15:14 17:00 20:28 Temperature 98.5 F 97.9 F Pulse Rate 68 71 Respiratory 20 20 Rate Blood Pressure 169/58 L 143/55 L O2 Sat by Pulse 97 Oximetry (%) 08/27/18 08/27/18 08/27/18 01:00 05:30 10:00 Temperature 98.2 F 98.2 F 98.6 F Pulse Rate 75 65 68 Respiratory 20 20 20 Rate Blood Pressure 162/66 157/56 L 158/61 O2 Sat by Pulse 97 Oximetry (%) GEN: on BIPAP, tachypneic with minimal exertion HEART: S1S2, RRR LUNGS: CTA bilaterally, decreased bs at bases ABDOMEN: Soft, NT/ND, normal BS EXTREMITIES: No c/c/e Active Medications Generic Name Dose Route Start Last Admin Trade Name Freq PRN Reason Stop Dose Admin Albuterol Sulfate 1 amp 08/25/18 12:19 Ventolin 0.083% Nebulizer Soln - NEB Q6H PRN SHORT OF BREATH/WHEEZING Albuterol/Ipratropium 1 amp 08/25/18 12:00 08/27/18 11:45 Duoneb - NEB 1 amp RQID ERMA Administration Ascorbic Acid 1,000 mg 08/23/18 10:00 08/27/18 09:32 Vitamin C - PO 1,000 mg DAILY ERMA Administration Budesonide/Formoterol Fumarate 2 puff 08/23/18 10:00 08/27/18 09:33 Symbicort 160/4.5mcg - IH 2 puff BID ERMA Administration Diltiazem HCl 120 mg 08/23/18 10:00 08/27/18 09:32 Cardizem Cd - PO 120 mg DAILY ERMA Administration Ferrous Sulfate 325 mg 08/22/18 22:00 08/27/18 09:32 Feosol - PO 325 mg BIDWM ERMA Administration Folic Acid 1 mg 08/23/18 10:00 08/27/18 09:32 Folic Acid - PO 1 mg DAILY ERMA Administration Furosemide 40 mg 08/23/18 10:00 08/27/18 09:32 Lasix - PO 40 mg DAILY ERMA Administration Hydralazine HCl 100 mg 08/24/18 14:00 08/27/18 06:26 Apresoline - PO 100 mg TID ERMA Administration Insulin Aspart 1 vial 08/25/18 18:53 08/27/18 12:11 Novolog Vial Sliding Scale - SQ 6 units ACHS ERMA Administration Protocol Insulin Detemir 24 units 08/25/18 18:54 08/26/18 21:42 Levemir Vial SQ 24 units HS COUNT INCLUDES [facility] Administration Pantoprazole Sodium 40 mg 08/23/18 10:00 08/27/18 09:32 Protonix - PO 40 mg DAILY ERMA Administration Prednisone 40 mg 08/28/18 10:00 Deltasone - PO DAILY ERMA Sodium Bicarbonate 650 mg 08/22/18 22:00 08/27/18 09:32 Sodium Bicarbonate - PO 650 mg BID COUNT INCLUDES [facility] Administration Warfarin Sodium 4 mg 08/25/18 18:00 08/26/18 17:36 Coumadin - PO Not Given DAILY@1800 COUNT INCLUDES [facility] Laboratory Results - last 24 hr 08/26/18 08/26/18 08/26/18 06:10 17:43 20:17 WBC RBC Hgb Hct MCV MCH MCHC RDW Plt Count MPV Absolute Neuts (auto) Neutrophils % Neutrophils % (Manual) 92.8 H Band Neutrophils % 0.0 Lymphocytes % Lymphocytes % (Manual) 3.1 L Monocytes % Monocytes % (Manual) 3 L D Eosinophils % Eosinophils % (Manual) 0.0 Basophils % Basophils % (Manual) 0.0 Myelocytes % (Man) 1 D Promyelocytes % (Man) 0 Blast Cells % (Manual) 0 Nucleated RBC % Metamyelocytes 0 Hypochromia 0 Platelet Estimate Normal Polychromasia 0 Poikilocytosis 0 Anisocytosis 2+ Microcytosis 0 Macrocytosis 1+ Ovalocytes PT with INR INR Sodium Potassium Chloride Carbon Dioxide Anion Gap BUN Creatinine Est GFR (CKD-EPI)AfAm Est GFR (CKD-EPI)NonAf POC Glucometer 385 430 Random Glucose Calcium Phosphorus Magnesium 08/26/18 08/27/18 08/27/18 22:26 05:10 05:30 WBC RBC Hgb Hct MCV MCH MCHC RDW Plt Count MPV Absolute Neuts (auto) Neutrophils % Neutrophils % (Manual) Band Neutrophils % Lymphocytes % Lymphocytes % (Manual) Monocytes % Monocytes % (Manual) Eosinophils % Eosinophils % (Manual) Basophils % Basophils % (Manual) Myelocytes % (Man) Promyelocytes % (Man) Blast Cells % (Manual) Nucleated RBC % Metamyelocytes Hypochromia Platelet Estimate Polychromasia Poikilocytosis Anisocytosis Microcytosis Macrocytosis Ovalocytes PT with INR INR Sodium 137 Potassium 4.2 Chloride 104 Carbon Dioxide 21 Anion Gap 12 BUN 93.8 H Creatinine 4.8 H Est GFR (CKD-EPI)AfAm 9.31 Est GFR (CKD-EPI)NonAf 8.04 POC Glucometer 398 219 Random Glucose 220 H Calcium 8.0 L Phosphorus 4.4 Magnesium 2.3 08/27/18 08/27/18 08/27/18 05:36 05:36 11:54 WBC 10.5 H RBC 3.46 L Hgb 10.9 Hct 32.8 MCV 94.9 MCH 31.6 MCHC 33.3 RDW 15.1 Plt Count 188 MPV 9.6 Absolute Neuts (auto) 9.9 H Neutrophils % 93.6 H Neutrophils % (Manual) 95.0 H Band Neutrophils % 0.0 Lymphocytes % 3.3 L Lymphocytes % (Manual) 3.0 L Monocytes % 3.0 L Monocytes % (Manual) 2 L Eosinophils % 0.0 Eosinophils % (Manual) 0.0 Basophils % 0.1 Basophils % (Manual) 0.0 Myelocytes % (Man) 0 D Promyelocytes % (Man) 0 Blast Cells % (Manual) 0 Nucleated RBC % 0 Metamyelocytes 0 Hypochromia 0 Platelet Estimate Normal Polychromasia 0 Poikilocytosis 0 Anisocytosis 1+ Microcytosis 0 Macrocytosis 1+ Ovalocytes 1+ PT with INR 35.60 H INR 2.98 H Sodium Potassium Chloride Carbon Dioxide Anion Gap BUN Creatinine Est GFR (CKD-EPI)AfAm Est GFR (CKD-EPI)NonAf POC Glucometer 280 Random Glucose Calcium Phosphorus Magnesium ASSESSMENT/PLAN 77 year old woman with multiple comorbidities including presented to the ED with SOB. COPD Exacerbation -would maintain on IV steroids, clinically not improved -cw inhaled BD -BIPAP QHS and PRN -CT chest done and pending read -pulm following Hx AFIB s/p ablation -c/w cardizem, rate controlled -coumadin, monitor INR Chronic Diastolic CHF -euvolemic -on PO lasix CKD stage 5 -worsening kidney function -on sodium bicarb -renal consult placed -avoid nephrotoxic agents CAD DM2 HTN Pulm HTN GERD History of LLE DVT Overactive bladder -c/w current regimen
[2018-08-27] MEDS: WARFARIN NA 2 MG TABLET (UD) PO SCH (17:56)
[2018-08-27] MEDS: INSULIN (LEVEMIR) 100 UNITS/ML UNITS SQ SCH (21:58)
[2018-08-28] MEDS: hydrALAZINE HCL 50 MG TABLET (FP) PO SCH ×3 (05:13→21:09)
--- NOTE | 2018-08-28 05:41 | PN ---
Physical Exam: SUBJECTIVE: Patient seen and examined at bed side , no acute events overnight , she used bipap , denies any chest pain or sob , but still worsening labored breathing with minimal exertion. OBJECTIVE: Vital Signs Period Temp Pulse Resp BP Sys/Renee Pulse Ox Last 24 Hr 96.2 F-98.7 F 63-74 20-20 131-163/58-71 97-99 GENERAL: A&Ox3, NAD HEENT: NC/AT, PERRLA, EOMI, MMM NECK: Normal range of motion, supple without lymphadenopathy, JVD, or masses. LUNGS: tight, poor air entry, scattered wheezes, becomes markedly dyspneic on minimal exertion HEART: RRR no m/r/g ABDOMEN: +bs, soft, NT, ND EXTREMITIES: wwp, no edema NEUROLOGICAL: bolt loader, motor, sensory systems w/o focal deficit PSYCHIATRIC: Cooperative SKIN: Warm, dry, normal turgor Laboratory Results - last 24 hr 08/27/18 08/27/18 08/27/18 05:30 05:36 05:36 WBC 10.5 H RBC 3.46 L Hgb 10.9 Hct 32.8 MCV 94.9 MCH 31.6 MCHC 33.3 RDW 15.1 Plt Count 188 MPV 9.6 Absolute Neuts (auto) 9.9 H Neutrophils % 93.6 H Neutrophils % (Manual) 95.0 H Band Neutrophils % 0.0 Lymphocytes % 3.3 L Lymphocytes % (Manual) 3.0 L Monocytes % 3.0 L Monocytes % (Manual) 2 L Eosinophils % 0.0 Eosinophils % (Manual) 0.0 Basophils % 0.1 Basophils % (Manual) 0.0 Myelocytes % (Man) 0 D Promyelocytes % (Man) 0 Blast Cells % (Manual) 0 Nucleated RBC % 0 Metamyelocytes 0 Hypochromia 0 Platelet Estimate Normal Polychromasia 0 Poikilocytosis 0 Anisocytosis 1+ Microcytosis 0 Macrocytosis 1+ Ovalocytes 1+ PT with INR 35.60 H INR 2.98 H Sodium 137 Potassium 4.2 Chloride 104 Carbon Dioxide 21 Anion Gap 12 BUN 93.8 H Creatinine 4.8 H Est GFR (CKD-EPI)AfAm 9.31 Est GFR (CKD-EPI)NonAf 8.04 POC Glucometer Random Glucose 220 H Calcium 8.0 L Phosphorus 4.4 Magnesium 2.3 08/27/18 08/27/18 08/28/18 11:54 21:54 05:11 WBC RBC Hgb Hct MCV MCH MCHC RDW Plt Count MPV Absolute Neuts (auto) Neutrophils % Neutrophils % (Manual) Band Neutrophils % Lymphocytes % Lymphocytes % (Manual) Monocytes % Monocytes % (Manual) Eosinophils % Eosinophils % (Manual) Basophils % Basophils % (Manual) Myelocytes % (Man) Promyelocytes % (Man) Blast Cells % (Manual) Nucleated RBC % Metamyelocytes Hypochromia Platelet Estimate Polychromasia Poikilocytosis Anisocytosis Microcytosis Macrocytosis Ovalocytes PT with INR INR Sodium Potassium Chloride Carbon Dioxide Anion Gap BUN Creatinine Est GFR (CKD-EPI)AfAm Est GFR (CKD-EPI)NonAf POC Glucometer 280 391 241 Random Glucose Calcium Phosphorus Magnesium Active Medications Generic Name Dose Route Start Last Admin Trade Name Freq PRN Reason Stop Dose Admin Albuterol Sulfate 1 amp 08/25/18 12:19 Ventolin 0.083% Nebulizer Soln - NEB Q6H PRN SHORT OF BREATH/WHEEZING Albuterol/Ipratropium 1 amp 08/25/18 12:00 08/27/18 20:34 Duoneb - NEB Not Given RQID ERMA Ascorbic Acid 1,000 mg 08/23/18 10:00 08/27/18 09:32 Vitamin C - PO 1,000 mg DAILY ERMA Administration Budesonide/Formoterol Fumarate 2 puff 08/23/18 10:00 08/27/18 21:58 Symbicort 160/4.5mcg - IH 2 puff BID ERMA Administration Diltiazem HCl 120 mg 08/23/18 10:00 08/27/18 09:32 Cardizem Cd - PO 120 mg DAILY ERMA Administration Ferrous Sulfate 325 mg 08/22/18 22:00 08/27/18 17:44 Feosol - PO 325 mg BIDWM ERMA Administration Folic Acid 1 mg 08/23/18 10:00 08/27/18 09:32 Folic Acid - PO 1 mg DAILY ERMA Administration Furosemide 40 mg 08/23/18 10:00 08/27/18 09:32 Lasix - PO 40 mg DAILY ERMA Administration Hydralazine HCl 100 mg 08/24/18 14:00 08/28/18 05:13 Apresoline - PO 100 mg TID ERMA Administration Insulin Aspart 1 vial 08/25/18 18:53 08/27/18 21:57 Novolog Vial Sliding Scale - SQ 10 units ACHS ERMA Administration Protocol Insulin Detemir 24 units 08/25/18 18:54 08/27/18 21:58 Levemir Vial SQ 24 units HS ERMA Administration Pantoprazole Sodium 40 mg 08/23/18 10:00 08/27/18 09:32 Protonix - PO 40 mg DAILY ERMA Administration Prednisone 40 mg 08/28/18 10:00 Deltasone - PO DAILY ERMA Sodium Bicarbonate 650 mg 08/22/18 22:00 08/27/18 21:58 Sodium Bicarbonate - PO 650 mg BID ERMA Administration Warfarin Sodium 4 mg 08/25/18 18:00 08/27/18 17:56 Coumadin - PO Not Given DAILY@1800 [facility] CBC, BMP 08/28/18 05:52 08/28/18 05:52 ASSESSMENT/PLAN: 77 y.o. F w/ PMHx. of HTN, NIDDM, Afib(s/p ablation on Coumadin), LLE DVT, CHFpEF, UT( s/p catherization), CKD Stage 4, GERD, and over active bladder presents after waking up this morning short of breath. #acute hypoxic respiratory failure due to COPD exacerbation (not on home O2) * c/w Solumedrol tapered to 40mg po daily * bronchodilators standing and PRN * pulmonary following * minimal clinical improvement thus far * dry chest CT ordered with mild #Pulmonary HTN * Pulm. Art Pressure 27mm Hg on Echo in November 2018---> 33mmHg on Chest CT in March * Pt.s status and clinical symptoms improved too quickly for this to be the main component * echo reviewed above #Afib * EKG: NSR, Q waves in V1, QTc: 450 * INR up to 2.05, increase warfarin to 5 from 4 * c/w Diltiazem 120mg Daily * monitor INR daily 2.05 today will #DCHF * BNP: 497.5 (lowest it has been on any admission) * Echo( 12/17): EF: 60-65%, E/A reversal consistent with diastolic pathology, mild AR +TR + MR, pulmonary artery pressure 27 mm Hg * echo reviewed #CKD stage 5 - baseline ~3.6 * Cr rising to 4.8, nephro consulted #FEN * no IVF, encourage PO intake as Pt. has been having decreased appetite, being mindful of an upper limit of 2L * replete as needed * Diabetic/Na restricted Diet #DVT Ppx. * c/w Warfarin as above, now in therapeutic range #Dispo * tele * Pt.'s daughter left her number ([phone] [place] [phone]) for updates Visit type - Emergency Visit Emergency Visit: Yes ED Registration Date: 08/22/18 Care time: The patient presented to the Emergency Department on the above date and was hospitalized for further evaluation of their emergent condition. - New Patient This patient is new to me today: No - Critical Care Critical Care patient: No
[2018-08-28] MEDS: INSULIN SLIDING SCALE (NOVOLOG) 1 VIAL SQ SCH ×4 (06:06→21:12)
[2018-08-28 06:52] LABS: BASO % 0.1 % (0-2.0); EOS % 0.1 % (0-4.5); HEMOGLOBIN 10.6 GM/dL (10.7-15.3); LYMPH % 6.1 % (8-40); MCH 31.3 pg (25.7-33.7); MEAN CELL VOLUME 94.9 fl (80-96); MONO % 7.1 % (3.8-10.2); NEUT % 86.6 % (42.8-82.8); PLATELET COUNT 187 K/MM3 (134-434); RBC 3.38 M/mm3 (3.60-5.2); RDW 15.5 % (11.6-15.6); WHITE BLOOD COUNT 9.9 K/mm3 (4.0-10.0)
[2018-08-28 07:08] LABS: INR 2.05 (0.83-1.09); PROTHROMBIN TIME (PATIENT) 24.4 SEC (9.7-13.0)
[2018-08-28 07:24] LABS: BLOOD UREA NITROGEN 102.1 mg/dL (7-18); CALCIUM 7.7 mg/dL (8.5-10.1); CREATININE 4.7 mg/dL (0.55-1.3); MAGNESIUM 2.4 mg/dL (1.8-2.4); PHOSPHOROUS 4.5 mg/dL (2.5-4.9); POTASSIUM 4.4 mmol/L (3.5-5.1)
[2018-08-28] MEDS: ALBUTEROL SO4 2.5/IPRATROPIUM 0.5 INH SOL 3 ML VIAL.NEB. NEB SCH ×4 (08:09→20:25)
--- NOTE | 2018-08-28 09:23 | PN ---
Progress Note, Physician History of Present Illness: pulmonary alert,c/o cough,mild congestion - Current Medication List Current Medications: Active Medications Albuterol Sulfate (Ventolin 0.083% Nebulizer Soln -) 1 amp NEB Q6H PRN PRN Reason: SHORT OF BREATH/WHEEZING Albuterol/Ipratropium (Duoneb -) 1 amp NEB RQID [facility] Last Admin: 08/27/18 20:34 Dose: Not Given Ascorbic Acid (Vitamin C -) 1,000 mg PO DAILY [facility] Last Admin: 08/27/18 09:32 Dose: 1,000 mg Budesonide/Formoterol Fumarate (Symbicort 160/4.5mcg -) 2 puff IH BID [facility] Last Admin: 08/27/18 21:58 Dose: 2 puff Diltiazem HCl (Cardizem Cd -) 120 mg PO DAILY [facility] Last Admin: 08/27/18 09:32 Dose: 120 mg Ferrous Sulfate (Feosol -) 325 mg PO BIDWM [facility] Last Admin: 08/27/18 17:44 Dose: 325 mg Folic Acid (Folic Acid -) 1 mg PO DAILY [facility] Last Admin: 08/27/18 09:32 Dose: 1 mg Furosemide (Lasix -) 40 mg PO DAILY [facility] Last Admin: 08/27/18 09:32 Dose: 40 mg Hydralazine HCl (Apresoline -) 100 mg PO TID [facility] Last Admin: 08/28/18 05:13 Dose: 100 mg Insulin Aspart (Novolog Vial Sliding Scale -) 1 vial SQ [facility]; Protocol Last Admin: 08/28/18 06:06 Dose: 4 units Insulin Detemir (Levemir Vial) 24 units SQ HS [facility] Last Admin: 08/27/18 21:58 Dose: 24 units Pantoprazole Sodium (Protonix -) 40 mg PO DAILY [facility] Last Admin: 08/27/18 09:32 Dose: 40 mg Prednisone (Deltasone -) 40 mg PO DAILY [facility] Sodium Bicarbonate (Sodium Bicarbonate -) 650 mg PO BID [facility] Last Admin: 08/27/18 21:58 Dose: 650 mg Warfarin Sodium (Coumadin -) 4 mg PO DAILY@1800 [facility] Last Admin: 08/27/18 17:56 Dose: Not Given - Objective Vital Signs: Vital Signs Temperature 98.2 F 08/28/18 06:00 Pulse Rate 61 08/28/18 06:00 Respiratory Rate 20 08/28/18 06:00 Blood Pressure 156/57 L 08/28/18 06:00 O2 Sat by Pulse Oximetry (%) 99 08/27/18 21:00 Constitutional: Yes: Well Nourished, Other (mildly dyspneic) Eyes: Yes: WNL HENT: Yes: WNL Neck: Yes: WNL Cardiovascular: Yes: Pulse Irregular, S1, S2 Respiratory: Yes: Rhonchi (scattered rhonchi) Gastrointestinal: Yes: Normal Bowel Sounds, Soft Extremities: Yes: WNL Edema: No Labs: CBC, BMP 08/28/18 05:52 08/28/18 05:52 INR, PTT INR 2.05 (0.83-1.09) H 08/28/18 05:52 Assessment/Plan Problem List - Problems (1) Afib Code(s): I48.91 - UNSPECIFIED ATRIAL FIBRILLATION Qualifiers: Atrial fibrillation type: unspecified Qualified Code(s): I48.91 - Unspecified atrial fibrillation (2) Anemia Code(s): D64.9 - ANEMIA, UNSPECIFIED (3) Asthma Code(s): J45.909 - UNSPECIFIED ASTHMA, UNCOMPLICATED (4) CKD (chronic kidney disease) Code(s): N18.9 - CHRONIC KIDNEY DISEASE, UNSPECIFIED (5) COPD (chronic obstructive pulmonary disease) Code(s): J44.9 - CHRONIC OBSTRUCTIVE PULMONARY DISEASE, UNSPECIFIED Qualifiers: COPD type: chronic bronchitis (6) Diastolic CHF Code(s): I50.30 - UNSPECIFIED DIASTOLIC (CONGESTIVE) HEART FAILURE Qualifiers: Heart failure chronicity: chronic Qualified Code(s): I50.32 - Chronic diastolic (congestive) heart failure (7) IDDM (insulin dependent diabetes mellitus) Code(s): E11.9 - TYPE 2 DIABETES MELLITUS WITHOUT COMPLICATIONS; Z79.4 - CARE HOME (CURRENT) USE OF INSULIN (8) Migraine headache Code(s): G43.909 - MIGRAINE, UNSP, NOT INTRACTABLE, WITHOUT STATUS MIGRAINOSUS Qualifiers: Migraine type: other Intractability: not intractable (9) Paroxysmal atrial fibrillation with RVR Code(s): I48.0 - PAROXYSMAL ATRIAL FIBRILLATION (10) Shortness of breath Code(s): R06.02 - SHORTNESS OF BREATH (11) CAD (coronary artery disease) Code(s): I25.10 - ATHSCL HEART DISEASE OF [place] CORONARY ARTERY W/O ANG PCTRS (12) CHF (congestive heart failure) Code(s): I50.9 - HEART FAILURE, UNSPECIFIED (13) Depression Code(s): F32.9 - MAJOR DEPRESSIVE DISORDER, SINGLE EPISODE, UNSPECIFIED Qualifiers: Depression Type: unspecified Qualified Code(s): F32.9 - Major depressive disorder, single episode, unspecified (14) Gastroesophageal reflux disease Code(s): K21.9 - GASTRO-ESOPHAGEAL REFLUX DISEASE WITHOUT ESOPHAGITIS (15) History of DVT (deep vein thrombosis) Code(s): Z86.718 - PERSONAL HISTORY OF OTHER VENOUS THROMBOSIS AND EMBOLISM (16) Hyperlipidemia Code(s): E78.5 - HYPERLIPIDEMIA, UNSPECIFIED Qualifiers: Hyperlipidemia type: pure hypercholesterolemia Qualified Code(s): E78.00 - Pure hypercholesterolemia, unspecified; E78.0 - Pure hypercholesterolemia (17) Hypertension Code(s): I10 - ESSENTIAL (PRIMARY) HYPERTENSION Qualifiers: Hypertension type: essential hypertension Qualified Code(s): I10 - Essential (primary) hypertension (18) Peripheral arterial disease Code(s): I73.9 - PERIPHERAL VASCULAR DISEASE, UNSPECIFIED (19) Type 2 diabetes mellitus Code(s): E11.9 - TYPE 2 DIABETES MELLITUS WITHOUT COMPLICATIONS Qualifiers: Diabetes mellitus complication status: with circulatory complication (20) Pulmonary hypertension Code(s): I27.2 - OTHER SECONDARY PULMONARY HYPERTENSION * DO NOT USE * ACUTE ON CHRONIC KIDNEY FAILURE Assessment/Plan Prednisone 40mg daily Inhaled BD NC O2 as needed monitor lytes,renal function DR GOULD
[2018-08-28] MEDS: FERROUS SO4 325 MG TABLET (FP) PO SCH ×2 (10:09→17:05)
[2018-08-28] MEDS: PANTOPRAZOLE 40 MG TABLET (FP) PO SCH (10:09)
[2018-08-28] MEDS: ASCORBIC ACID 500 MG TABLET (FP) PO SCH (10:09)
[2018-08-28] MEDS: FOLIC ACID 1 MG TABLET (FP) PO SCH (10:09)
[2018-08-28] MEDS: SODIUM BICARBONATE 650 MG TABLET PO SCH ×2 (10:09→21:09)
[2018-08-28] MEDS: FUROSEMIDE 40 MG TABLET (FP) PO SCH (10:09)
[2018-08-28] MEDS: predniSONE 20 MG TABLET (UD) PO SCH (10:09)
[2018-08-28] MEDS: BUDESONIDE/FORMETEROL FUMARATE 160/4.5 mcg INHALER IH SCH ×2 (10:10→21:09)
--- NOTE | 2018-08-28 12:56 | PN ---
Teaching Attending Note Name of Resident: Marco A Raphael ATTENDING PHYSICIAN STATEMENT I saw and evaluated the patient. I reviewed the resident's note and discussed the case with the resident. I agree with the resident's findings and plan as documented. SUBJECTIVE: Patient has a dry cough. She denies SOB. OBJECTIVE: Vital Signs Period Temp Pulse Resp BP Sys/Renee Pulse Ox Last 24 Hr 96.2 F-98.7 F 60-74 20-20 131-171/57-77 99-99 HEART: S1S2, RRR LUNGS: Few rhonchi and expiratory wheezes ABDOMEN: Soft, non-tender, non-distended, normal BS EXTREMITIES: No edema Laboratory Results - last 24 hr 08/27/18 08/28/18 08/28/18 21:54 05:11 05:52 WBC 9.9 RBC 3.38 L Hgb 10.6 L Hct 32.0 L MCV 94.9 MCH 31.3 MCHC 33.0 RDW 15.5 Plt Count 187 MPV 10.0 Absolute Neuts (auto) 8.6 H Neutrophils % 86.6 H Lymphocytes % 6.1 L D Monocytes % 7.1 D Eosinophils % 0.1 D Basophils % 0.1 Nucleated RBC % 0 PT with INR INR Sodium Potassium Chloride Carbon Dioxide Anion Gap BUN Creatinine Est GFR (CKD-EPI)AfAm Est GFR (CKD-EPI)NonAf POC Glucometer 391 241 Random Glucose Calcium Phosphorus Magnesium 08/28/18 08/28/18 08/28/18 05:52 05:52 11:36 WBC RBC Hgb Hct MCV MCH MCHC RDW Plt Count MPV Absolute Neuts (auto) Neutrophils % Lymphocytes % Monocytes % Eosinophils % Basophils % Nucleated RBC % PT with INR 24.40 H INR 2.05 H Sodium 134 L Potassium 4.4 Chloride 102 Carbon Dioxide 20 L Anion Gap 12 BUN 102.1 H Creatinine 4.7 H Est GFR (CKD-EPI)AfAm 9.55 Est GFR (CKD-EPI)NonAf 8.24 POC Glucometer 252 Random Glucose 230 H Calcium 7.7 L Phosphorus 4.5 Magnesium 2.4 Current Medications Generic Name Dose Route Start Last Admin Trade Name Freq PRN Reason Stop Dose Admin Albuterol Sulfate 1 amp 08/25/18 12:19 Ventolin 0.083% Nebulizer Soln - NEB Q6H PRN SHORT OF BREATH/WHEEZING Albuterol/Ipratropium 1 amp 08/25/18 12:00 08/28/18 08:09 Duoneb - NEB 1 amp RQID ERMA Administration Ascorbic Acid 1,000 mg 08/23/18 10:00 08/28/18 10:09 Vitamin C - PO 1,000 mg DAILY ERMA Administration Budesonide/Formoterol Fumarate 2 puff 08/23/18 10:00 08/28/18 10:10 Symbicort 160/4.5mcg - IH 2 puff BID ERMA Administration Diltiazem HCl 120 mg 08/23/18 10:00 08/28/18 10:09 Cardizem Cd - PO 120 mg DAILY ERMA Administration Ferrous Sulfate 325 mg 08/22/18 22:00 08/28/18 10:09 Feosol - PO 325 mg BIDWM ERMA Administration Folic Acid 1 mg 08/23/18 10:00 08/28/18 10:09 Folic Acid - PO 1 mg DAILY ERMA Administration Furosemide 40 mg 08/23/18 10:00 08/28/18 10:09 Lasix - PO 40 mg DAILY ERMA Administration Hydralazine HCl 100 mg 08/24/18 14:00 08/28/18 05:13 Apresoline - PO 100 mg TID ERMA Administration Insulin Aspart 1 vial 08/25/18 18:53 08/28/18 12:26 Novolog Vial Sliding Scale - SQ 6 units ACHS ERMA Administration Protocol Insulin Detemir 24 units 08/25/18 18:54 08/27/18 21:58 Levemir Vial SQ 24 units HS ERMA Administration Pantoprazole Sodium 40 mg 08/23/18 10:00 08/28/18 10:09 Protonix - PO 40 mg DAILY ERMA Administration Prednisone 40 mg 08/28/18 10:00 08/28/18 10:09 Deltasone - PO 40 mg DAILY ERMA Administration Sodium Bicarbonate 650 mg 08/22/18 22:00 08/28/18 10:09 Sodium Bicarbonate - PO 650 mg BID ERMA Administration Warfarin Sodium 4 mg 08/25/18 18:00 08/27/18 17:56 Coumadin - PO Not Given DAILY@1800 [facility] ASSESSMENT AND PLAN: This is a 77 year old woman with a history of HTN, atrial fib, CAD, [place], chronic diastolic heart failure, pulm HTN, type 2 DM, LLE DVT, stage 5 CKD, GERD, overactive bladder who presented to the ED with SOB. 1. Acute exacerbation of COPD - SoluMedrol changed to Prednisone - Continue Symbicort, DuoNeb, albuterol nebs as needed - Chest CT shows mild emphysematous changes, extensive calcification of coronary arteries, extensive vascular calcifications in upper abdomen, moderate to marked anterior wedging of T12 vertebral body 2. History of atrial fibrillation, ablation - Remains in sinus rhythm - Continue Cardizem CD - Continue Coumadin dosed based on INR 3. HTN - Continue Cardizem CD, Hydralazine, Lasix 4. Chronic diastolic heart failure - Stable - Continue Lasix 5. Stage 5 CKD - Creatinine has stabilized, but BUN continues to increase - Continue sodium bicarb 6. CAD, history of [place] 7. Pulmonary HTN 8. Type 2 DM - Continue Levemir, Novolog sliding scale 9. GERD - Continue Protonix 10. Overactive bladder 11. History of LLE DVT
--- NOTE | 2018-08-28 13:39 | PN ---
Progress Note, Physician History of Present Illness: Pt seen and examined at bedside. She feels that her breathing is a little better than yesterday. She denies dysuria or hematuria. - Current Medication List Current Medications: Active Medications Albuterol Sulfate (Ventolin 0.083% Nebulizer Soln -) 1 amp NEB Q6H PRN PRN Reason: SHORT OF BREATH/WHEEZING Albuterol/Ipratropium (Duoneb -) 1 amp NEB RQID [facility] Last Admin: 08/28/18 12:30 Dose: 1 amp Ascorbic Acid (Vitamin C -) 1,000 mg PO DAILY [facility] Last Admin: 08/28/18 10:09 Dose: 1,000 mg Budesonide/Formoterol Fumarate (Symbicort 160/4.5mcg -) 2 puff IH BID [facility] Last Admin: 08/28/18 10:10 Dose: 2 puff Diltiazem HCl (Cardizem Cd -) 120 mg PO DAILY [facility] Last Admin: 08/28/18 10:09 Dose: 120 mg Ferrous Sulfate (Feosol -) 325 mg PO BIDWM [facility] Last Admin: 08/28/18 10:09 Dose: 325 mg Folic Acid (Folic Acid -) 1 mg PO DAILY [facility] Last Admin: 08/28/18 10:09 Dose: 1 mg Furosemide (Lasix -) 40 mg PO DAILY [facility] Last Admin: 08/28/18 10:09 Dose: 40 mg Hydralazine HCl (Apresoline -) 100 mg PO TID [facility] Last Admin: 08/28/18 05:13 Dose: 100 mg Insulin Aspart (Novolog Vial Sliding Scale -) 1 vial SQ [facility]; Protocol Last Admin: 08/28/18 12:26 Dose: 6 units Insulin Detemir (Levemir Vial) 24 units SQ HS [facility] Last Admin: 08/27/18 21:58 Dose: 24 units Pantoprazole Sodium (Protonix -) 40 mg PO DAILY [facility] Last Admin: 08/28/18 10:09 Dose: 40 mg Prednisone (Deltasone -) 40 mg PO DAILY [facility] Last Admin: 08/28/18 10:09 Dose: 40 mg Sodium Bicarbonate (Sodium Bicarbonate -) 650 mg PO BID [facility] Last Admin: 08/28/18 10:09 Dose: 650 mg Warfarin Sodium (Coumadin -) 5 mg PO DAILY@1800 [facility] - Objective Vital Signs: Vital Signs Temperature 98.1 F 08/28/18 09:00 Pulse Rate 72 08/28/18 09:00 Respiratory Rate 20 08/28/18 09:00 Blood Pressure 161/73 08/28/18 09:00 O2 Sat by Pulse Oximetry (%) 99 08/28/18 09:00 Constitutional: Yes: Calm Eyes: Yes: Conjunctiva Clear HENT: Yes: Atraumatic Neck: Yes: Supple Cardiovascular: Yes: S1, S2 Respiratory: Yes: On Nasal O2, Wheezes Gastrointestinal: Yes: Normal Bowel Sounds, Soft Genitourinary: Yes: WNL Musculoskeletal: Yes: WNL Edema: Yes Neurological: Yes: Oriented Psychiatric: Yes: Oriented Labs: CBC, BMP 08/28/18 05:52 08/28/18 05:52 INR, PTT INR 2.05 (0.83-1.09) H 08/28/18 05:52 Problem List - Problems (1) COPD exacerbation Code(s): J44.1 - CHRONIC OBSTRUCTIVE PULMONARY DISEASE W (ACUTE) EXACERBATION (2) CHF (congestive heart failure) Code(s): I50.9 - HEART FAILURE, UNSPECIFIED Qualifiers: Heart failure type: unspecified Heart failure chronicity: unspecified Qualified Code(s): I50.9 - Heart failure, unspecified (3) CKD (chronic kidney disease) Code(s): N18.9 - CHRONIC KIDNEY DISEASE, UNSPECIFIED (4) COPD (chronic obstructive pulmonary disease) Code(s): J44.9 - CHRONIC OBSTRUCTIVE PULMONARY DISEASE, UNSPECIFIED Qualifiers: COPD type: chronic bronchitis Assessment/Plan Current Medications Generic Name Dose Route Start Last Admin Trade Name Freq PRN Reason Stop Dose Admin Albuterol Sulfate 1 amp 08/25/18 12:19 Ventolin 0.083% Nebulizer Soln - NEB Q6H PRN SHORT OF BREATH/WHEEZING Albuterol/Ipratropium 1 amp 08/25/18 12:00 08/28/18 12:30 Duoneb - NEB 1 amp RQID ERMA Administration Ascorbic Acid 1,000 mg 08/23/18 10:00 08/28/18 10:09 Vitamin C - PO 1,000 mg DAILY ERMA Administration Budesonide/Formoterol Fumarate 2 puff 08/23/18 10:00 08/28/18 10:10 Symbicort 160/4.5mcg - IH 2 puff BID ERMA Administration Diltiazem HCl 120 mg 08/23/18 10:00 08/28/18 10:09 Cardizem Cd - PO 120 mg DAILY ER[facility] Administration Ferrous Sulfate 325 mg 08/22/18 22:00 08/28/18 10:09 Feosol - PO 325 mg BIDWM ERMA Administration Folic Acid 1 mg 08/23/18 10:00 08/28/18 10:09 Folic Acid - PO 1 mg DAILY ERMA Administration Furosemide 40 mg 08/23/18 10:00 08/28/18 10:09 Lasix - PO 40 mg DAILY ERMA Administration Hydralazine HCl 100 mg 08/24/18 14:00 08/28/18 05:13 Apresoline - PO 100 mg TID ERMA Administration Insulin Aspart 1 vial 08/25/18 18:53 08/28/18 12:26 Novolog Vial Sliding Scale - SQ 6 units ACHS ERMA Administration Protocol Insulin Detemir 24 units 08/25/18 18:54 08/27/18 21:58 Levemir Vial SQ 24 units HS ERMA Administration Pantoprazole Sodium 40 mg 08/23/18 10:00 08/28/18 10:09 Protonix - PO 40 mg DAILY ERMA Administration Prednisone 40 mg 08/28/18 10:00 08/28/18 10:09 Deltasone - PO 40 mg DAILY ERMA Administration Sodium Bicarbonate 650 mg 08/22/18 22:00 08/28/18 10:09 Sodium Bicarbonate - PO 650 mg BID ERMA Administration Warfarin Sodium 5 mg 08/28/18 13:30 Coumadin - PO DAILY@1800 [facility] Impression 1. CKD 2. COPD 3. a-fib 4. HTN 5. met acidosis 6. DM Plan - cont current meds - steroids can cause an elevation in bun - cont lasix - bipap as needed - repeat labs in am
[2018-08-28] MEDS: WARFARIN NA 5 MG TABLET (UD) PO SCH (17:05)
[2018-08-28] MEDS ORDERED: WARFARIN NA 2 MG TABLET (UD) PO SCH (18:00)
[2018-08-28] MEDS: INSULIN (LEVEMIR) 100 UNITS/ML UNITS SQ SCH (21:12)
[2018-08-29] MEDS: hydrALAZINE HCL 50 MG TABLET (FP) PO SCH ×3 (06:47→22:16)
[2018-08-29] MEDS: INSULIN SLIDING SCALE (NOVOLOG) 1 VIAL SQ SCH ×4 (06:47→22:15)
[2018-08-29 07:13] LABS: ALBUMIN 2.7 g/dl (3.4-5.0); BILIRUBIN,TOTAL 0.6 mg/dL (0.2-1); CALCIUM 7.7 mg/dL (8.5-10.1); CREATININE 4.8 mg/dL (0.55-1.3); POTASSIUM 4.2 mmol/L (3.5-5.1); TOT PROT 5.2 g/dl (6.4-8.2)
[2018-08-29 07:19] LABS: BLOOD UREA NITROGEN 108.2 mg/dL (7-18)
[2018-08-29] MEDS: ALBUTEROL SO4 2.5/IPRATROPIUM 0.5 INH SOL 3 ML VIAL.NEB. NEB SCH ×4 (08:36→20:40)
--- NOTE | 2018-08-29 09:12 | PN ---
Progress Note, Physician History of Present Illness: pulmonary alert,comfortable at rest + urbina,anxious - Current Medication List Current Medications: Active Medications Albuterol Sulfate (Ventolin 0.083% Nebulizer Soln -) 1 amp NEB Q6H PRN PRN Reason: SHORT OF BREATH/WHEEZING Albuterol/Ipratropium (Duoneb -) 1 amp NEB RQID [facility] Last Admin: 08/28/18 20:25 Dose: 1 amp Ascorbic Acid (Vitamin C -) 1,000 mg PO DAILY [facility] Last Admin: 08/28/18 10:09 Dose: 1,000 mg Budesonide/Formoterol Fumarate (Symbicort 160/4.5mcg -) 2 puff IH BID [facility] Last Admin: 08/28/18 21:09 Dose: 2 puff Diltiazem HCl (Cardizem Cd -) 120 mg PO DAILY [facility] Last Admin: 08/28/18 10:09 Dose: 120 mg Ferrous Sulfate (Feosol -) 325 mg PO BIDWM [facility] Last Admin: 08/28/18 17:05 Dose: 325 mg Folic Acid (Folic Acid -) 1 mg PO DAILY [facility] Last Admin: 08/28/18 10:09 Dose: 1 mg Furosemide (Lasix -) 40 mg PO DAILY [facility] Last Admin: 08/28/18 10:09 Dose: 40 mg Hydralazine HCl (Apresoline -) 100 mg PO TID [facility] Last Admin: 08/29/18 06:47 Dose: 100 mg Insulin Aspart (Novolog Vial Sliding Scale -) 1 vial SQ [facility]; Protocol Last Admin: 08/29/18 06:47 Dose: 2 units Insulin Detemir (Levemir Vial) 24 units SQ HS [facility] Last Admin: 08/28/18 21:12 Dose: 24 units Pantoprazole Sodium (Protonix -) 40 mg PO DAILY [facility] Last Admin: 08/28/18 10:09 Dose: 40 mg Prednisone (Deltasone -) 40 mg PO DAILY [facility] Last Admin: 08/28/18 10:09 Dose: 40 mg Sodium Bicarbonate (Sodium Bicarbonate -) 650 mg PO BID [facility] Last Admin: 08/28/18 21:09 Dose: 650 mg Warfarin Sodium (Coumadin -) 5 mg PO DAILY@1800 [facility] Last Admin: 08/28/18 17:05 Dose: 5 mg - Objective Vital Signs: Vital Signs Temperature 97.6 F 08/29/18 08:56 Pulse Rate 80 08/29/18 08:56 Respiratory Rate 20 08/29/18 08:56 Blood Pressure 123/58 L 08/29/18 08:56 O2 Sat by Pulse Oximetry (%) 98 08/28/18 20:23 Constitutional: Yes: Well Nourished, Calm, Anxious Eyes: Yes: WNL HENT: Yes: WNL Neck: Yes: WNL Cardiovascular: Yes: Regular Rate and Rhythm, S1, S2 Respiratory: Yes: Diminished, Rhonchi (few rhonchi) Gastrointestinal: Yes: Normal Bowel Sounds, Soft Extremities: Yes: WNL Edema: No Labs: CBC, BMP 08/28/18 05:52 08/29/18 05:58 INR, PTT INR 2.05 (0.83-1.09) H 08/28/18 05:52 Assessment/Plan Problem List - Problems (1) Afib Code(s): I48.91 - UNSPECIFIED ATRIAL FIBRILLATION Qualifiers: Atrial fibrillation type: unspecified Qualified Code(s): I48.91 - Unspecified atrial fibrillation (2) Anemia Code(s): D64.9 - ANEMIA, UNSPECIFIED (3) Asthma Code(s): J45.909 - UNSPECIFIED ASTHMA, UNCOMPLICATED (4) CKD (chronic kidney disease) Code(s): N18.9 - CHRONIC KIDNEY DISEASE, UNSPECIFIED (5) COPD (chronic obstructive pulmonary disease) Code(s): J44.9 - CHRONIC OBSTRUCTIVE PULMONARY DISEASE, UNSPECIFIED Qualifiers: COPD type: chronic bronchitis (6) Diastolic CHF Code(s): I50.30 - UNSPECIFIED DIASTOLIC (CONGESTIVE) HEART FAILURE Qualifiers: Heart failure chronicity: chronic Qualified Code(s): I50.32 - Chronic diastolic (congestive) heart failure (7) IDDM (insulin dependent diabetes mellitus) Code(s): E11.9 - TYPE 2 DIABETES MELLITUS WITHOUT COMPLICATIONS; Z79.4 - GROUP HOME (CURRENT) USE OF INSULIN (8) Migraine headache Code(s): G43.909 - MIGRAINE, UNSP, NOT INTRACTABLE, WITHOUT STATUS MIGRAINOSUS Qualifiers: Migraine type: other Intractability: not intractable (9) Paroxysmal atrial fibrillation with RVR Code(s): I48.0 - PAROXYSMAL ATRIAL FIBRILLATION (10) Shortness of breath Code(s): R06.02 - SHORTNESS OF BREATH (11) CAD (coronary artery disease) Code(s): I25.10 - ATHSCL HEART DISEASE OF [place] CORONARY ARTERY W/O ANG PCTRS (12) CHF (congestive heart failure) Code(s): I50.9 - HEART FAILURE, UNSPECIFIED (13) Depression Code(s): F32.9 - MAJOR DEPRESSIVE DISORDER, SINGLE EPISODE, UNSPECIFIED Qualifiers: Depression Type: unspecified Qualified Code(s): F32.9 - Major depressive disorder, single episode, unspecified (14) Gastroesophageal reflux disease Code(s): K21.9 - GASTRO-ESOPHAGEAL REFLUX DISEASE WITHOUT ESOPHAGITIS (15) History of DVT (deep vein thrombosis) Code(s): Z86.718 - PERSONAL HISTORY OF OTHER VENOUS THROMBOSIS AND EMBOLISM (16) Hyperlipidemia Code(s): E78.5 - HYPERLIPIDEMIA, UNSPECIFIED Qualifiers: Hyperlipidemia type: pure hypercholesterolemia Qualified Code(s): E78.00 - Pure hypercholesterolemia, unspecified; E78.0 - Pure hypercholesterolemia (17) Hypertension Code(s): I10 - ESSENTIAL (PRIMARY) HYPERTENSION Qualifiers: Hypertension type: essential hypertension Qualified Code(s): I10 - Essential (primary) hypertension (18) Peripheral arterial disease Code(s): I73.9 - PERIPHERAL VASCULAR DISEASE, UNSPECIFIED (19) Type 2 diabetes mellitus Code(s): E11.9 - TYPE 2 DIABETES MELLITUS WITHOUT COMPLICATIONS Qualifiers: Diabetes mellitus complication status: with circulatory complication (20) Pulmonary hypertension Code(s): I27.2 - OTHER SECONDARY PULMONARY HYPERTENSION * DO NOT USE * ACUTE ON CHRONIC KIDNEY FAILURE Assessment/Plan Prednisone 40mg daily Inhaled BD NC O2 as needed monitor lytes,renal function ambulatory o2 sat DR GOULD
[2018-08-29] MEDS: predniSONE 20 MG TABLET (UD) PO SCH (09:33)
[2018-08-29] MEDS: FUROSEMIDE 40 MG TABLET (FP) PO SCH (09:34)
[2018-08-29] MEDS: FERROUS SO4 325 MG TABLET (FP) PO SCH ×2 (09:34→17:48)
[2018-08-29] MEDS: ASCORBIC ACID 500 MG TABLET (FP) PO SCH (09:34)
[2018-08-29] MEDS: SODIUM BICARBONATE 650 MG TABLET PO SCH ×2 (09:34→22:17)
[2018-08-29] MEDS: FOLIC ACID 1 MG TABLET (FP) PO SCH (09:35)
[2018-08-29] MEDS: BUDESONIDE/FORMETEROL FUMARATE 160/4.5 mcg INHALER IH SCH ×2 (09:35→22:17)
[2018-08-29] MEDS: PANTOPRAZOLE 40 MG TABLET (FP) PO SCH (09:35)
--- NOTE | 2018-08-29 10:29 | PN ---
Physical Exam: SUBJECTIVE: Patient seen and examined. She feels that her breathing is much improved. She says she is unsteady when walking. OBJECTIVE: Vital Signs Period Temp Pulse Resp BP Sys/Renee Pulse Ox Last 24 Hr 97.6 F-99.0 F 69-81 18-20 123-156/52-67 98 GENERAL: The patient is awake, alert, and fully oriented, in no acute distress. LUNGS: Breath sounds equal, clear to auscultation bilaterally, no wheezes, no crackles, no accessory muscle use. HEART: Regular rate and rhythm, S1, S2 without murmur, rub or gallop. ABDOMEN: Soft, nontender, nondistended, normoactive bowel sounds, no guarding, no rebound, no hepatosplenomegaly, no masses. EXTREMITIES: 2+ pulses, warm, well-perfused, no edema. Laboratory Results - last 24 hr 08/28/18 08/28/18 08/28/18 11:36 16:46 21:11 Sodium Potassium Chloride Carbon Dioxide Anion Gap BUN Creatinine Est GFR (CKD-EPI)AfAm Est GFR (CKD-EPI)NonAf POC Glucometer 252 232 327 Random Glucose Calcium Total Bilirubin AST ALT Alkaline Phosphatase Total Protein Albumin 08/29/18 08/29/18 05:58 06:46 Sodium 136 Potassium 4.2 Chloride 104 Carbon Dioxide 21 Anion Gap 12 BUN 108.2 H* Creatinine 4.8 H Est GFR (CKD-EPI)AfAm 9.31 Est GFR (CKD-EPI)NonAf 8.04 POC Glucometer 156 Random Glucose 179 H Calcium 7.7 L Total Bilirubin 0.6 AST 8 L ALT 17 Alkaline Phosphatase 36 L Total Protein 5.2 L Albumin 2.7 L Active Medications Generic Name Dose Route Start Last Admin Trade Name Freq PRN Reason Stop Dose Admin Albuterol Sulfate 1 amp 08/25/18 12:19 Ventolin 0.083% Nebulizer Soln - NEB Q6H PRN SHORT OF BREATH/WHEEZING Albuterol/Ipratropium 1 amp 08/25/18 12:00 08/28/18 20:25 Duoneb - NEB 1 amp RQID ERMA Administration Ascorbic Acid 1,000 mg 08/23/18 10:00 08/29/18 09:34 Vitamin C - PO 1,000 mg DAILY ERMA Administration Budesonide/Formoterol Fumarate 2 puff 08/23/18 10:00 08/29/18 09:35 Symbicort 160/4.5mcg - IH 2 puff BID ERMA Administration Diltiazem HCl 120 mg 08/23/18 10:00 08/29/18 09:34 Cardizem Cd - PO 120 mg DAILY [facility] Administration Ferrous Sulfate 325 mg 08/22/18 22:00 08/29/18 09:34 Feosol - PO 325 mg BIDWM ERMA Administration Folic Acid 1 mg 08/23/18 10:00 08/29/18 09:35 Folic Acid - PO 1 mg DAILY [facility] Administration Furosemide 40 mg 08/23/18 10:00 08/29/18 09:34 Lasix - PO 40 mg DAILY [facility] Administration Hydralazine HCl 100 mg 08/24/18 14:00 08/29/18 06:47 Apresoline - PO 100 mg TID [facility] Administration Insulin Aspart 1 vial 08/25/18 18:53 08/29/18 06:47 Novolog Vial Sliding Scale - SQ 2 units ACHS [facility] Administration Protocol Insulin Detemir 24 units 08/25/18 18:54 08/28/18 21:12 Levemir Vial SQ 24 units HS [facility] Administration Pantoprazole Sodium 40 mg 08/23/18 10:00 08/29/18 09:35 Protonix - PO 40 mg DAILY [facility] Administration Prednisone 40 mg 08/28/18 10:00 08/29/18 09:33 Deltasone - PO 40 mg DAILY [facility] Administration Sodium Bicarbonate 650 mg 08/22/18 22:00 08/29/18 09:34 Sodium Bicarbonate - PO 650 mg BID [facility] Administration Warfarin Sodium 5 mg 08/28/18 18:00 08/28/18 17:05 Coumadin - PO 5 mg DAILY@1800 [facility] Administration ASSESSMENT/PLAN: This is a 77 year old woman with a history of HTN, atrial fib, CAD, [place], chronic diastolic heart failure, pulm HTN, type 2 DM, LLE DVT, stage 5 CKD, GERD, overactive bladder who presented to the ED with SOB. 1. Acute exacerbation of COPD - Continue Prednisone, Symbicort, DuoNeb, albuterol nebs as needed - Chest CT shows mild emphysematous changes, extensive calcification of coronary arteries, extensive vascular calcifications in upper abdomen, moderate to marked anterior wedging of T12 vertebral body 2. History of atrial fibrillation, ablation - Remains in sinus rhythm - Continue Cardizem CD - INR subtherapeutic - Coumadin was increased yesterday 3. HTN - Continue Cardizem CD, Hydralazine, Lasix 4. Chronic diastolic heart failure - Stable - Continue Lasix 5. Stage 5 CKD - Creatinine stable, but BUN continues to increase likely secondary to steroids - Continue sodium bicarb 6. CAD, history of [place] 7. Pulmonary HTN 8. Type 2 DM - Continue Levemir, Novolog sliding scale 9. GERD - Continue Protonix 10. Overactive bladder 11. History of LLE DVT Visit type - Emergency Visit Emergency Visit: Yes ED Registration Date: 08/22/18 Care time: The patient presented to the Emergency Department on the above date and was hospitalized for further evaluation of their emergent condition. - New Patient This patient is new to me today: No - Critical Care Critical Care patient: No - Discharge Referral Referred to [facility] Med P.C.: No
[2018-08-29 12:55] LABS: INR 1.34 (0.83-1.09); PROTHROMBIN TIME (PATIENT) 15.8 SEC (9.7-13.0)
--- NOTE | 2018-08-29 15:11 | PN ---
Progress Note, Physician History of Present Illness: Pt seen and examined at bedside. She feels comfortable while at rest but SOB while ambulating. She denies dysuria or hematuria. - Current Medication List Current Medications: Active Medications Albuterol Sulfate (Ventolin 0.083% Nebulizer Soln -) 1 amp NEB Q6H PRN PRN Reason: SHORT OF BREATH/WHEEZING Albuterol/Ipratropium (Duoneb -) 1 amp NEB RQID [facility] Last Admin: 08/29/18 11:49 Dose: 1 amp Ascorbic Acid (Vitamin C -) 1,000 mg PO DAILY [facility] Last Admin: 08/29/18 09:34 Dose: 1,000 mg Budesonide/Formoterol Fumarate (Symbicort 160/4.5mcg -) 2 puff IH BID [facility] Last Admin: 08/29/18 09:35 Dose: 2 puff Diltiazem HCl (Cardizem Cd -) 120 mg PO DAILY [facility] Last Admin: 08/29/18 09:34 Dose: 120 mg Ferrous Sulfate (Feosol -) 325 mg PO BIDWM [facility] Last Admin: 08/29/18 09:34 Dose: 325 mg Folic Acid (Folic Acid -) 1 mg PO DAILY [facility] Last Admin: 08/29/18 09:35 Dose: 1 mg Furosemide (Lasix -) 40 mg PO DAILY [facility] Last Admin: 08/29/18 09:34 Dose: 40 mg Hydralazine HCl (Apresoline -) 100 mg PO TID [facility] Last Admin: 08/29/18 15:03 Dose: 100 mg Insulin Aspart (Novolog Vial Sliding Scale -) 1 vial SQ [facility]; Protocol Last Admin: 08/29/18 12:29 Dose: 2 units Insulin Detemir (Levemir Vial) 24 units SQ HS [facility] Last Admin: 08/28/18 21:12 Dose: 24 units Pantoprazole Sodium (Protonix -) 40 mg PO DAILY [facility] Last Admin: 08/29/18 09:35 Dose: 40 mg Prednisone (Deltasone -) 40 mg PO DAILY [facility] Last Admin: 08/29/18 09:33 Dose: 40 mg Sodium Bicarbonate (Sodium Bicarbonate -) 650 mg PO BID [facility] Last Admin: 08/29/18 09:34 Dose: 650 mg Warfarin Sodium (Coumadin -) 5 mg PO DAILY@1800 [facility] Last Admin: 08/28/18 17:05 Dose: 5 mg - Objective Vital Signs: Vital Signs Temperature 97.6 F 08/29/18 08:56 Pulse Rate 93 H 08/29/18 11:45 Respiratory Rate 20 08/29/18 09:00 Blood Pressure 123/58 L 08/29/18 08:56 O2 Sat by Pulse Oximetry (%) 97 08/29/18 11:45 Constitutional: Yes: Calm Eyes: Yes: Conjunctiva Clear HENT: Yes: Atraumatic Cardiovascular: Yes: S1, S2 Respiratory: Yes: On Nasal O2, Wheezes Gastrointestinal: Yes: Soft Genitourinary: Yes: WNL Extremities: Yes: WNL Edema: No Neurological: Yes: Oriented Psychiatric: Yes: Oriented Labs: CBC, BMP 08/28/18 05:52 08/29/18 05:58 INR, PTT INR 1.34 (0.83-1.09) H 08/29/18 12:17 Problem List - Problems (1) COPD exacerbation Code(s): J44.1 - CHRONIC OBSTRUCTIVE PULMONARY DISEASE W (ACUTE) EXACERBATION (2) CHF (congestive heart failure) Code(s): I50.9 - HEART FAILURE, UNSPECIFIED Qualifiers: Heart failure type: unspecified Heart failure chronicity: unspecified Qualified Code(s): I50.9 - Heart failure, unspecified (3) CKD (chronic kidney disease) Code(s): N18.9 - CHRONIC KIDNEY DISEASE, UNSPECIFIED (4) COPD (chronic obstructive pulmonary disease) Code(s): J44.9 - CHRONIC OBSTRUCTIVE PULMONARY DISEASE, UNSPECIFIED Qualifiers: COPD type: chronic bronchitis Assessment/Plan Current Medications Generic Name Dose Route Start Last Admin Trade Name Freq PRN Reason Stop Dose Admin Albuterol Sulfate 1 amp 08/25/18 12:19 Ventolin 0.083% Nebulizer Soln - NEB Q6H PRN SHORT OF BREATH/WHEEZING Albuterol/Ipratropium 1 amp 08/25/18 12:00 08/29/18 11:49 Duoneb - NEB 1 amp RQID [facility] Administration Ascorbic Acid 1,000 mg 08/23/18 10:00 08/29/18 09:34 Vitamin C - PO 1,000 mg DAILY [facility] Administration Budesonide/Formoterol Fumarate 2 puff 08/23/18 10:00 06/30/19 09:35 Symbicort 160/4.5mcg - IH 2 puff BID [facility] Administration Diltiazem HCl 120 mg 08/23/18 10:00 08/29/18 09:34 Cardizem Cd - PO 120 mg DAILY [facility] Administration Ferrous Sulfate 325 mg 08/22/18 22:00 08/29/18 09:34 Feosol - PO 325 mg BIDWM [facility] Administration Folic Acid 1 mg 08/23/18 10:00 08/29/18 09:35 Folic Acid - PO 1 mg DAILY [facility] Administration Furosemide 40 mg 08/23/18 10:00 08/29/18 09:34 Lasix - PO 40 mg DAILY [facility] Administration Hydralazine HCl 100 mg 08/24/18 14:00 08/29/18 15:03 Apresoline - PO 100 mg TID [facility] Administration Insulin Aspart 1 vial 08/25/18 18:53 08/29/18 12:29 Novolog Vial Sliding Scale - SQ 2 units ACHS [facility] Administration Protocol Insulin Detemir 24 units 08/25/18 18:54 08/28/18 21:12 Levemir Vial SQ 24 units HS [facility] Administration Pantoprazole Sodium 40 mg 08/23/18 10:00 08/29/18 09:35 Protonix - PO 40 mg DAILY [facility] Administration Prednisone 40 mg 08/28/18 10:00 08/29/18 09:33 Deltasone - PO 40 mg DAILY [facility] Administration Sodium Bicarbonate 650 mg 08/22/18 22:00 08/29/18 09:34 Sodium Bicarbonate - PO 650 mg BID [facility] Administration Warfarin Sodium 5 mg 08/28/18 18:00 08/28/18 17:05 Coumadin - PO 5 mg DAILY@1800 [facility] Administration Impression 1. CKD 2. COPD 3. a-fib 4. HTN 5. met acidosis 6. DM Plan - cont to monitor renal function - check kidney ultrasound - repeat lab sin am - steroids can cause an elevation in bun - cont lasix - bipap as needed
[2018-08-29] MEDS: WARFARIN NA 5 MG TABLET (UD) PO SCH (17:48)
[2018-08-29] MEDS: INSULIN (LEVEMIR) 100 UNITS/ML UNITS SQ SCH (22:16)
[2018-08-30] MEDS: hydrALAZINE HCL 50 MG TABLET (FP) PO SCH ×3 (06:28→21:42)
[2018-08-30] MEDS: INSULIN SLIDING SCALE (NOVOLOG) 1 VIAL SQ SCH ×4 (06:36→21:50)
[2018-08-30 08:04] LABS: BASO % 0.1 % (0-2.0); HEMATOCRIT 32.1 % (32.4-45.2); HEMOGLOBIN 10.7 GM/dL (10.7-15.3); LYMPH % 10.5 % (8-40); MCH 31.6 pg (25.7-33.7); MCHC 33.3 g/dl (32.0-36.0); MEAN CELL VOLUME 94.8 fl (80-96); MEAN PLT VOLUME 9.8 fl (7.5-11.1); NEUT % 81.4 % (42.8-82.8); PLATELET COUNT 192 K/MM3 (134-434); RBC 3.39 M/mm3 (3.60-5.2); RDW 14.9 % (11.6-15.6); WHITE BLOOD COUNT 10.9 K/mm3 (4.0-10.0)
[2018-08-30 08:09] LABS: INR 1.27 (0.83-1.09)
[2018-08-30] MEDS: FERROUS SO4 325 MG TABLET (FP) PO SCH ×2 (08:21→17:49)
[2018-08-30 08:41] LABS: CALCIUM 7.9 mg/dL (8.5-10.1); CREATININE 4.8 mg/dL (0.55-1.3); POTASSIUM 4.3 mmol/L (3.5-5.1)
[2018-08-30 08:47] LABS: BLOOD UREA NITROGEN 109.2 mg/dL (7-18)
[2018-08-30] MEDS: FOLIC ACID 1 MG TABLET (FP) PO SCH (10:27)
[2018-08-30] MEDS: predniSONE 20 MG TABLET (UD) PO SCH (10:27)
[2018-08-30] MEDS: ASCORBIC ACID 500 MG TABLET (FP) PO SCH (10:27)
[2018-08-30] MEDS: BUDESONIDE/FORMETEROL FUMARATE 160/4.5 mcg INHALER IH SCH ×2 (10:28→21:51)
[2018-08-30] MEDS: PANTOPRAZOLE 40 MG TABLET (FP) PO SCH (10:28)
[2018-08-30] MEDS: SODIUM BICARBONATE 650 MG TABLET PO SCH ×2 (10:28→21:43)
[2018-08-30] MEDS: FUROSEMIDE 40 MG TABLET (FP) PO SCH (10:28)
[2018-08-30] MEDS: ALBUTEROL SO4 2.5/IPRATROPIUM 0.5 INH SOL 3 ML VIAL.NEB. NEB SCH (11:48)
--- NOTE | 2018-08-30 13:57 | PN ---
Progress Note, Physician History of Present Illness: PULMONARY ALERT,OOB-CHAIR COMFORTABLE AT REST +JOHNSON - Current Medication List Current Medications: Active Medications Ascorbic Acid (Vitamin C -) 1,000 mg PO DAILY [facility] Last Admin: 08/30/18 10:27 Dose: 1,000 mg Budesonide/Formoterol Fumarate (Symbicort 160/4.5mcg -) 2 puff IH BID [facility] Last Admin: 08/30/18 10:28 Dose: 2 puff Diltiazem HCl (Cardizem Cd -) 120 mg PO DAILY [facility] Last Admin: 08/30/18 10:27 Dose: 120 mg Ferrous Sulfate (Feosol -) 325 mg PO BIDWM [facility] Last Admin: 08/30/18 08:21 Dose: 325 mg Folic Acid (Folic Acid -) 1 mg PO DAILY [facility] Last Admin: 08/30/18 10:27 Dose: 1 mg Furosemide (Lasix -) 40 mg PO DAILY [facility] Last Admin: 08/30/18 10:28 Dose: 40 mg Hydralazine HCl (Apresoline -) 100 mg PO TID [facility] Last Admin: 08/30/18 06:28 Dose: 100 mg Insulin Aspart (Novolog Vial Sliding Scale -) 1 vial SQ [facility]; Protocol Last Admin: 08/30/18 06:36 Dose: Not Given Insulin Detemir (Levemir Vial) 24 units SQ [facility] Last Admin: 08/29/18 22:16 Dose: 24 units Pantoprazole Sodium (Protonix -) 40 mg PO DAILY [facility] Last Admin: 08/30/18 10:28 Dose: 40 mg Prednisone (Deltasone -) 40 mg PO DAILY [facility] Last Admin: 08/30/18 10:27 Dose: 40 mg Sodium Bicarbonate (Sodium Bicarbonate -) 650 mg PO BID [facility] Last Admin: 08/30/18 10:28 Dose: 650 mg Warfarin Sodium (Coumadin -) 5 mg PO DAILY@1800 [facility] Last Admin: 08/29/18 17:48 Dose: 5 mg - Objective Vital Signs: Vital Signs Temperature 98.2 F 08/30/18 07:00 Pulse Rate 88 08/30/18 12:06 Respiratory Rate 20 08/30/18 07:00 Blood Pressure 149/66 08/30/18 07:00 O2 Sat by Pulse Oximetry (%) 97 08/30/18 12:06 Constitutional: Yes: Well Nourished, Calm Eyes: Yes: WNL HENT: Yes: WNL Neck: Yes: WNL Cardiovascular: Yes: Pulse Irregular, S1, S2 Respiratory: Yes: Diminished Gastrointestinal: Yes: Normal Bowel Sounds, Soft Extremities: Yes: WNL Edema: No Labs: CBC, BMP 08/30/18 06:05 08/30/18 06:05 INR, PTT INR 1.27 (0.83-1.09) H 08/30/18 06:05 Assessment/Plan Problem List - Problems (1) Afib Code(s): I48.91 - UNSPECIFIED ATRIAL FIBRILLATION Qualifiers: Atrial fibrillation type: unspecified Qualified Code(s): I48.91 - Unspecified atrial fibrillation (2) Anemia Code(s): D64.9 - ANEMIA, UNSPECIFIED (3) Asthma Code(s): J45.909 - UNSPECIFIED ASTHMA, UNCOMPLICATED (4) CKD (chronic kidney disease) Code(s): N18.9 - CHRONIC KIDNEY DISEASE, UNSPECIFIED (5) COPD (chronic obstructive pulmonary disease) Code(s): J44.9 - CHRONIC OBSTRUCTIVE PULMONARY DISEASE, UNSPECIFIED Qualifiers: COPD type: chronic bronchitis (6) Diastolic CHF Code(s): I50.30 - UNSPECIFIED DIASTOLIC (CONGESTIVE) HEART FAILURE Qualifiers: Heart failure chronicity: chronic Qualified Code(s): I50.32 - Chronic diastolic (congestive) heart failure (7) IDDM (insulin dependent diabetes mellitus) Code(s): E11.9 - TYPE 2 DIABETES MELLITUS WITHOUT COMPLICATIONS; Z79.4 - SENIOR LIVING (CURRENT) USE OF INSULIN (8) Migraine headache Code(s): G43.909 - MIGRAINE, UNSP, NOT INTRACTABLE, WITHOUT STATUS MIGRAINOSUS Qualifiers: Migraine type: other Intractability: not intractable (9) Paroxysmal atrial fibrillation with RVR Code(s): I48.0 - PAROXYSMAL ATRIAL FIBRILLATION (10) Shortness of breath Code(s): R06.02 - SHORTNESS OF BREATH (11) CAD (coronary artery disease) Code(s): I25.10 - ATHSCL HEART DISEASE OF [place] CORONARY ARTERY W/O ANG PCTRS (12) CHF (congestive heart failure) Code(s): I50.9 - HEART FAILURE, UNSPECIFIED (13) Depression Code(s): F32.9 - MAJOR DEPRESSIVE DISORDER, SINGLE EPISODE, UNSPECIFIED Qualifiers: Depression Type: unspecified Qualified Code(s): F32.9 - Major depressive disorder, single episode, unspecified (14) Gastroesophageal reflux disease Code(s): K21.9 - GASTRO-ESOPHAGEAL REFLUX DISEASE WITHOUT ESOPHAGITIS (15) History of DVT (deep vein thrombosis) Code(s): Z86.718 - PERSONAL HISTORY OF OTHER VENOUS THROMBOSIS AND EMBOLISM (16) Hyperlipidemia Code(s): E78.5 - HYPERLIPIDEMIA, UNSPECIFIED Qualifiers: Hyperlipidemia type: pure hypercholesterolemia Qualified Code(s): E78.00 - Pure hypercholesterolemia, unspecified; E78.0 - Pure hypercholesterolemia (17) Hypertension Code(s): I10 - ESSENTIAL (PRIMARY) HYPERTENSION Qualifiers: Hypertension type: essential hypertension Qualified Code(s): I10 - Essential (primary) hypertension (18) Peripheral arterial disease Code(s): I73.9 - PERIPHERAL VASCULAR DISEASE, UNSPECIFIED (19) Type 2 diabetes mellitus Code(s): E11.9 - TYPE 2 DIABETES MELLITUS WITHOUT COMPLICATIONS Qualifiers: Diabetes mellitus complication status: with circulatory complication (20) Pulmonary hypertension Code(s): I27.2 - OTHER SECONDARY PULMONARY HYPERTENSION * DO NOT USE * ACUTE ON CHRONIC KIDNEY FAILURE Assessment/Plan Prednisone taper Inhaled BD NC O2 as needed monitor lytes,renal function ambulatory o2 sat nippv at night sleep screen DR GOULD
--- NOTE | 2018-08-30 14:38 | PN ---
Teaching Attending Note Name of Resident: Stacey Hammond ATTENDING PHYSICIAN STATEMENT I saw and evaluated the patient. I reviewed the resident's note and discussed the case with the resident. I agree with the resident's findings and plan as documented. SUBJECTIVE: No fever or chills. No JANE, feels SOB , did not change since admission , reports chronic SOB that's worse on ambulation. No cough , no Sputum production . Needed BIPAP at night OBJECTIVE: NAD CV : RRR, 2/6 SmM at base , with radiation/? bruit over L carotid. loud S2. Lungs: CTAB , no wheezes or crackles, shallow breaths. , decreased breath sounds at bases EXt : trace edema ASSESSMENT AND PLAN: 77 y/o lady with h/o CAD, s/p IL, AFib , HTN, diastolic CHF, pulm HTN, TREVON, DM , LLE DVT, CKD 5, GERD and other medical problems who presented with SOB and was found to have acute COPD exacerbation. 1- Acute COPD exacerbation: - cont steroids, Nebs, and inhalers - old sleep study reviewed. D/W Pulm, needs BIPAP at night due to TREVON, and COPD. d.w SW. - pre-post done : no need fro O2 even with ambulation 2- h/o CKD 5: stable renal function . US reviewed, no hydro but L renal structure, possibly a cyst. - CT as out pt to further evaluate - monitor 3- H/o A fib: cont cardizem - cont current dose of coumadin, and monitor INR in am 4- H/o chrinci diastolic heart fialure, stable - cont lasix. echo reviewed 5- DM : Cont levemir and SSI 6- DVT PX: on coumadin dispo: Need to arrange BIPAP
[2018-08-30] MEDS ORDERED: SODIUM CHLORIDE 1,000 ML IV SCH (17:45)
--- NOTE | 2018-08-30 17:46 | PN ---
Progress Note (short form) - Note Progress Note: Renal follow up for JOSE on CKD Pt seen and examined at the bedside awake and alert no acute complaints no sob, cp, abd pain, fever or chills Vital Signs Temperature 98.4 F 08/30/18 14:55 Pulse Rate 78 08/30/18 14:55 Respiratory Rate 22 H 08/30/18 14:55 Blood Pressure 152/56 L 08/30/18 14:55 O2 Sat by Pulse Oximetry (%) 98 08/30/18 15:49 Intake & Output 08/27/18 08/28/18 08/29/18 08/30/18 23:59 23:59 23:59 23:59 Intake Total 771 480 490 10 Output Total 2 2 Balance 771 480 488 8 Weight 91.354 kg 92.986 kg 93.349 kg 94.166 kg NAD awake and alert RRR Dec BS no LE edema CBC, BMP 08/30/18 06:05 08/30/18 06:05 Current Medications Ascorbic Acid (Vitamin C -) 1,000 mg PO DAILY [facility] Last Admin: 08/30/18 10:27 Dose: 1,000 mg Budesonide/Formoterol Fumarate (Symbicort 160/4.5mcg -) 2 puff IH BID [facility] Last Admin: 08/30/18 10:28 Dose: 2 puff Diltiazem HCl (Cardizem Cd -) 120 mg PO DAILY [facility] Last Admin: 08/30/18 10:27 Dose: 120 mg Ferrous Sulfate (Feosol -) 325 mg PO BIDWM [facility] Last Admin: 08/30/18 08:21 Dose: 325 mg Folic Acid (Folic Acid -) 1 mg PO DAILY [facility] Last Admin: 08/30/18 10:27 Dose: 1 mg Hydralazine HCl (Apresoline -) 100 mg PO TID [facility] Last Admin: 08/30/18 15:16 Dose: 100 mg Sodium Chloride (Normal Saline -) 1,000 mls @ 83 mls/hr IV ASDIR [facility] Stop: 08/31/18 05:44 Insulin Aspart (Novolog Vial Sliding Scale -) 1 vial SQ ACHS [facility]; Protocol Last Admin: 08/30/18 13:55 Dose: Not Given Insulin Detemir (Levemir Vial) 24 units SQ HS [facility] Last Admin: 08/29/18 22:16 Dose: 24 units Pantoprazole Sodium (Protonix -) 40 mg PO DAILY [facility] Last Admin: 08/30/18 10:28 Dose: 40 mg Prednisone (Deltasone -) 40 mg PO DAILY [facility] Last Admin: 08/30/18 10:27 Dose: 40 mg Sodium Bicarbonate (Sodium Bicarbonate -) 650 mg PO BID [facility] Last Admin: 08/30/18 10:28 Dose: 650 mg Warfarin Sodium (Coumadin -) 5 mg PO DAILY@1800 [facility] Last Admin: 08/29/18 17:48 Dose: 5 mg 77 year old woman with history of CKD stage 4/5 (baseline Cr 3.5), Hypertension, COPD, Hx of DVT presented with sob and elevated Cr. #JOSE on CKD due to intravascular volume depletion vs AIN #COPD exacerbation #Hypertension Check urine studies for FeUrea d/c Lasix Give trial of IVF x 12 hours Trend renal function daily no indication for [employer] BUN high due to steroids Tylor To DO
[2018-08-30] MEDS: WARFARIN NA 5 MG TABLET (UD) PO SCH (17:49)
--- NOTE | 2018-08-30 18:29 | PN ---
Physical Exam: SUBJECTIVE: Patient seen and examined at bedside. No acute events overnight, she used bipap. Denies any chest pain or increased SOB. Pt endorses worsening breathing with minimal exertion. OBJECTIVE: Vital Signs Period Temp Pulse Resp BP Sys/Renee Pulse Ox Last 24 Hr 97.7 F-98.4 F 68-88 18-22 142-173/47-66 97-100 GENERAL: The patient is awake, alert, and fully oriented, in no acute distress. HEAD: Normal with no signs of trauma. ENT: Moist mucous membranes. NECK: Normal range of motion and supple. LUNGS: Poor air entry, mild wheezes diffusely. No accessory muscle use noted. HEART: Regular rate and rhythm, S1, S2 without murmur, rub or gallop. ABDOMEN: Soft, nontender, nondistended, normoactive bowel sounds, no guarding, no rebound, no hepatosplenomegaly, no masses. EXTREMITIES: 2+ pulses, no edema. SKIN: Warm, dry, no rashes or lesions noted Laboratory Results - last 24 hr 08/29/18 08/30/18 08/30/18 22:13 06:05 06:05 WBC 10.9 H RBC 3.39 L Hgb 10.7 Hct 32.1 L MCV 94.8 MCH 31.6 MCHC 33.3 RDW 14.9 Plt Count 192 MPV 9.8 Absolute Neuts (auto) 8.9 H Neutrophils % 81.4 Lymphocytes % 10.5 D Monocytes % 8.0 Eosinophils % 0.0 D Basophils % 0.1 Nucleated RBC % 0 PT with INR INR Sodium 139 Potassium 4.3 Chloride 105 Carbon Dioxide 22 Anion Gap 12 BUN 109.2 H* Creatinine 4.8 H Est GFR (CKD-EPI)AfAm 9.31 Est GFR (CKD-EPI)NonAf 8.04 POC Glucometer 425 Random Glucose 108 H Calcium 7.9 L 08/30/18 08/30/18 08/30/18 06:05 06:32 12:48 WBC RBC Hgb Hct MCV MCH MCHC RDW Plt Count MPV Absolute Neuts (auto) Neutrophils % Lymphocytes % Monocytes % Eosinophils % Basophils % Nucleated RBC % PT with INR 15.00 H INR 1.27 H Sodium Potassium Chloride Carbon Dioxide Anion Gap BUN Creatinine Est GFR (CKD-EPI)AfAm Est GFR (CKD-EPI)NonAf POC Glucometer 85 138 Random Glucose Calcium 08/30/18 17:44 WBC RBC Hgb Hct MCV MCH MCHC RDW Plt Count MPV Absolute Neuts (auto) Neutrophils % Lymphocytes % Monocytes % Eosinophils % Basophils % Nucleated RBC % PT with INR INR Sodium Potassium Chloride Carbon Dioxide Anion Gap BUN Creatinine Est GFR (CKD-EPI)AfAm Est GFR (CKD-EPI)NonAf POC Glucometer 310 Random Glucose Calcium Active Medications Ascorbic Acid (Vitamin C -) 1,000 mg PO DAILY [facility] Last Admin: 08/30/18 10:27 Dose: 1,000 mg Budesonide/Formoterol Fumarate (Symbicort 160/4.5mcg -) 2 puff IH BID [facility] Last Admin: 08/30/18 10:28 Dose: 2 puff Diltiazem HCl (Cardizem Cd -) 120 mg PO DAILY [facility] Last Admin: 08/30/18 10:27 Dose: 120 mg Ferrous Sulfate (Feosol -) 325 mg PO BIDWM [facility] Last Admin: 08/30/18 17:49 Dose: 325 mg Folic Acid (Folic Acid -) 1 mg PO DAILY [facility] Last Admin: 08/30/18 10:27 Dose: 1 mg Hydralazine HCl (Apresoline -) 100 mg PO TID [facility] Last Admin: 08/30/18 15:16 Dose: 100 mg Sodium Chloride (Normal Saline -) 1,000 mls @ 83 mls/hr IV ASDIR [facility] Stop: 08/31/18 05:44 Insulin Aspart (Novolog Vial Sliding Scale -) [address] [facility]; Protocol Last Admin: 08/30/18 17:49 Dose: 8 units Insulin Detemir (Levemir Vial) 24 units SQ HS [facility] Last Admin: 08/29/18 22:16 Dose: 24 units Pantoprazole Sodium (Protonix -) 40 mg PO DAILY [facility] Last Admin: 08/30/18 10:28 Dose: 40 mg Prednisone (Deltasone -) 40 mg PO DAILY [facility] Last Admin: 08/30/18 10:27 Dose: 40 mg Sodium Bicarbonate (Sodium Bicarbonate -) 650 mg PO BID [facility] Last Admin: 08/30/18 10:28 Dose: 650 mg Warfarin Sodium (Coumadin -) 5 mg PO DAILY@1800 [facility] Last Admin: 08/30/18 17:49 Dose: 5 mg ASSESSMENT/PLAN: 77 y.o. F w/ PMHx. of HTN, NIDDM, Afib(s/p ablation on Coumadin), LLE DVT, CHFpEF, ID( s/p catherization), CKD Stage 4, GERD, and over active bladder presents after waking up this morning short of breath. #Acute hypoxic respiratory failure due to COPD exacerbation (not on home O2) * Continue Solumedrol tapered to 40mg po daily * Continue bronchodilators PRN * Pulmonary following * Minimal clinical improvement thus far * Pre-post resp test done: O2 not needed with ambulation; discontinue nasal cannula O2 * Old sleep study (2014) reviewed and discussed with pulm; needs bipap at night due to mild TREVON and COPD; possible discharge with bipap (discuss with social work) #Pulmonary HTN * Pulm. Art Pressure 27mm Hg on Echo in November 2018---> 33mmHg on Chest CT in March * Pt.s status and clinical symptoms improved too quickly for this to be the main component * echo reviewed #Afib * EKG: NSR, Q waves in V1, QTc: 450 * INR down to 1.27, cont current dose of coumadin at 5 * Monitor INR in am; will increase coumadin to 6 if INR remains low * c/w Diltiazem 120mg Daily #DCHF * BNP: 497.5 (lowest it has been on any admission) * Echo( 12/17): EF: 60-65%, E/A reversal consistent with diastolic pathology, mild AR +TR + MR, pulmonary artery pressure 27 mm Hg * echo reviewed #CKD stage 5 - baseline ~3.6 * Cr rising to 4.8, nephro consulted * Renal ultrasound done showing increased renal cortical echogenicity * CT as outpatient to further evaluate #FEN * no IVF, encourage PO intake as Pt. has been having decreased appetite, being mindful of an upper limit of 2L * replete as needed * Diabetic/Na restricted Diet #DVT Ppx. * c/w Warfarin as above, now in therapeutic range #Dispo * tele * Pt.'s daughter left her number ([phone] [place] [phone]) for updates Visit type - Emergency Visit Emergency Visit: No - New Patient This patient is new to me today: Yes Date on this admission: 08/30/18 - Critical Care Critical Care patient: No
[2018-08-30] MEDS ORDERED: INSULIN (NOVOLOG) ASPART 100 UNITS/ML 10ML VIAL ONE (21:40)
[2018-08-30] MEDS: INSULIN (LEVEMIR) 100 UNITS/ML UNITS SQ SCH (21:50)
[2018-08-31] MEDS: INSULIN SLIDING SCALE (NOVOLOG) 1 VIAL SQ SCH ×4 (06:44→22:06)
[2018-08-31] MEDS: hydrALAZINE HCL 50 MG TABLET (FP) PO SCH ×3 (06:44→22:07)
[2018-08-31] MEDS: FERROUS SO4 325 MG TABLET (FP) PO SCH ×2 (07:52→17:10)
[2018-08-31 08:21] LABS: BASO % 0.2 % (0-2.0); EOS % 0.1 % (0-4.5); HEMATOCRIT 33.2 % (32.4-45.2); HEMOGLOBIN 10.8 GM/dL (10.7-15.3); LYMPH % 9.4 % (8-40); MCH 31.3 pg (25.7-33.7); MCHC 32.6 g/dl (32.0-36.0); MEAN CELL VOLUME 96.1 fl (80-96); MEAN PLT VOLUME 10.1 fl (7.5-11.1); MONO % 6.3 % (3.8-10.2); PLATELET COUNT 198 K/MM3 (134-434); RBC 3.46 M/mm3 (3.60-5.2); RDW 15.1 % (11.6-15.6); WHITE BLOOD COUNT 11.1 K/mm3 (4.0-10.0)
[2018-08-31 08:31] LABS: INR 1.34 (0.83-1.09); PROTHROMBIN TIME (PATIENT) 15.9 SEC (9.7-13.0)
[2018-08-31] MEDS ORDERED: WARFARIN NA 3 MG TABLET PO SCH (08:32)
[2018-08-31 08:47] LABS: ALBUMIN 2.9 g/dl (3.4-5.0); BILIRUBIN,TOTAL 0.4 mg/dL (0.2-1); CALCIUM 7.7 mg/dL (8.5-10.1); CREATININE 4.4 mg/dL (0.55-1.3); MAGNESIUM 2.5 mg/dL (1.8-2.4); PHOSPHOROUS 4.4 mg/dL (2.5-4.9); POTASSIUM 4.9 mmol/L (3.5-5.1); TOT PROT 5.6 g/dl (6.4-8.2)
[2018-08-31 08:50] LABS: BLOOD UREA NITROGEN 108.7 mg/dL (7-18)
[2018-08-31] MEDS ORDERED: PT OWN MED DRAWER 7, Y5N ONE (09:53)
[2018-08-31] MEDS: predniSONE 20 MG TABLET (UD) PO SCH (09:54)
[2018-08-31] MEDS: FOLIC ACID 1 MG TABLET (FP) PO SCH (09:54)
[2018-08-31] MEDS: ASCORBIC ACID 500 MG TABLET (FP) PO SCH (09:54)
[2018-08-31] MEDS: SODIUM BICARBONATE 650 MG TABLET PO SCH ×2 (09:54→22:07)
[2018-08-31] MEDS: PANTOPRAZOLE 40 MG TABLET (FP) PO SCH (09:54)
[2018-08-31] MEDS: BUDESONIDE/FORMETEROL FUMARATE 160/4.5 mcg INHALER IH SCH ×2 (09:55→22:08)
--- NOTE | 2018-08-31 12:22 | PN ---
Progress Note (short form) - Note Progress Note: PULMONARY Still some dyspnea with exertion. No cough or wheezing. Vital Signs Period Temp Pulse Resp BP Sys/Renee Pulse Ox Last 24 Hr 97.8 F-98.7 F 70-89 17-22 142-155/46-71 97-98 Gen: NAD at rest Heart: RRR Lung: decreased breath sounds at the bases Abd: soft, nontender Ext: no edema CBC, BMP 08/31/18 06:10 08/31/18 06:10 Active Medications Ascorbic Acid (Vitamin C -) 1,000 mg PO DAILY [facility] Last Admin: 08/31/18 09:54 Dose: 1,000 mg Budesonide/Formoterol Fumarate (Symbicort 160/4.5mcg -) 2 puff IH BID [facility] Last Admin: 08/31/18 09:55 Dose: 2 puff Diltiazem HCl (Cardizem Cd -) 120 mg PO DAILY [facility] Last Admin: 08/31/18 09:54 Dose: 120 mg Ferrous Sulfate (Feosol -) 325 mg PO BIDWM [facility] Last Admin: 08/31/18 07:52 Dose: 325 mg Folic Acid (Folic Acid -) 1 mg PO DAILY [facility] Last Admin: 08/31/18 09:54 Dose: 1 mg Hydralazine HCl (Apresoline -) 100 mg PO TID [facility] Last Admin: 08/31/18 06:44 Dose: 100 mg Insulin Aspart (Novolog Vial Sliding Scale -) 1 vial SQ [facility]; Protocol Last Admin: 08/31/18 12:14 Dose: 2 units Insulin Detemir (Levemir Vial) 24 units SQ [facility] Last Admin: 08/30/18 21:50 Dose: 20 units Pantoprazole Sodium (Protonix -) 40 mg PO DAILY [facility] Last Admin: 08/31/18 09:54 Dose: 40 mg Prednisone (Deltasone -) 40 mg PO DAILY [facility] Last Admin: 08/31/18 09:54 Dose: 40 mg Sodium Bicarbonate (Sodium Bicarbonate -) 650 mg PO BID [facility] Last Admin: 08/31/18 09:54 Dose: 650 mg Warfarin Sodium (Coumadin -) 6 mg PO DAILY@1800 [facility] A/P Acute COPD Exacerbation LV Diastolic Dysfunction Pulmonary HTN TREVON h/o DVT CKD CAD Atrial Fibrillation - prednisone taper - inhaled bronchodilators - O2 as needed - rate control - continue anticoagulation - outpt PFTs, CPET
--- NOTE | 2018-08-31 13:57 | PN ---
Physical Exam: SUBJECTIVE: Patient seen and examined. No acute events overnight. Pt did not use bipap as she had sleep apnea test done. Denies any increased SOB or chest pain but endorses worsening breathing with exertion. OBJECTIVE: Vital Signs Period Temp Pulse Resp BP Sys/Renee Pulse Ox Last 24 Hr 97.8 F-98.7 F 70-89 17-22 142-155/46-71 97-98 GENERAL: The patient is awake, alert, and fully oriented, in no acute distress. HEAD: Normal with no signs of trauma. ENT: Moist mucous membranes. NECK: Normal range of motion and supple. LUNGS: Poor air entry, mild wheezes diffusely. No accessory muscle use noted. HEART: Regular rate and rhythm, S1, S2 without murmur, rub or gallop. ABDOMEN: Soft, nontender, nondistended, normoactive bowel sounds, no guarding, no rebound, no hepatosplenomegaly, no masses. EXTREMITIES: 2+ pulses, no edema. SKIN: Warm, dry, no rashes or lesions noted Laboratory Results - last 24 hr 08/30/18 08/30/18 08/31/18 17:44 21:46 06:08 WBC RBC Hgb Hct MCV MCH MCHC RDW Plt Count MPV Absolute Neuts (auto) Neutrophils % Lymphocytes % Monocytes % Eosinophils % Basophils % Nucleated RBC % PT with INR INR Sodium Potassium Chloride Carbon Dioxide Anion Gap BUN Creatinine Est GFR (CKD-EPI)AfAm Est GFR (CKD-EPI)NonAf POC Glucometer 310 274 132 Random Glucose Calcium Phosphorus Magnesium Total Bilirubin AST ALT Alkaline Phosphatase Total Protein Albumin 08/31/18 08/31/18 08/31/18 06:10 06:10 06:10 WBC 11.1 H RBC 3.46 L Hgb 10.8 Hct 33.2 MCV 96.1 H MCH 31.3 MCHC 32.6 RDW 15.1 Plt Count 198 MPV 10.1 Absolute Neuts (auto) 9.4 H Neutrophils % 84.0 H Lymphocytes % 9.4 Monocytes % 6.3 Eosinophils % 0.1 D Basophils % 0.2 Nucleated RBC % 0 PT with INR 15.90 H INR 1.34 H Sodium 138 Potassium 4.9 Chloride 105 Carbon Dioxide 23 Anion Gap 10 BUN 108.7 H* Creatinine 4.4 H Est GFR (CKD-EPI)AfAm 10.35 Est GFR (CKD-EPI)NonAf 8.93 POC Glucometer Random Glucose 113 H Calcium 7.7 L Phosphorus 4.4 Magnesium 2.5 H Total Bilirubin 0.4 AST 11 L ALT 19 Alkaline Phosphatase 39 L Total Protein 5.6 L Albumin 2.9 L Current Medications Ascorbic Acid (Vitamin C -) 1,000 mg PO DAILY [facility] Last Admin: 08/31/18 09:54 Dose: 1,000 mg Budesonide/Formoterol Fumarate (Symbicort 160/4.5mcg -) 2 puff IH BID [facility] Last Admin: 08/31/18 09:55 Dose: 2 puff Diltiazem HCl (Cardizem Cd -) 120 mg PO DAILY [facility] Last Admin: 08/31/18 09:54 Dose: 120 mg Ferrous Sulfate (Feosol -) 325 mg PO BIDWM [facility] Last Admin: 08/31/18 07:52 Dose: 325 mg Folic Acid (Folic Acid -) 1 mg PO DAILY [facility] Last Admin: 08/31/18 09:54 Dose: 1 mg Hydralazine HCl (Apresoline -) 100 mg PO TID [facility] Last Admin: 08/31/18 06:44 Dose: 100 mg Insulin Aspart (Novolog Vial Sliding Scale -) 1 vial SQ [facility]; Protocol Last Admin: 08/31/18 12:14 Dose: 2 units Insulin Detemir (Levemir Vial) 24 units SQ HS [facility] Last Admin: 08/30/18 21:50 Dose: 20 units Pantoprazole Sodium (Protonix -) 40 mg PO DAILY [facility] Last Admin: 08/31/18 09:54 Dose: 40 mg Prednisone (Deltasone -) 40 mg PO DAILY [facility] Last Admin: 08/31/18 09:54 Dose: 40 mg Sodium Bicarbonate (Sodium Bicarbonate -) 650 mg PO BID [facility] Last Admin: 08/31/18 09:54 Dose: 650 mg Warfarin Sodium (Coumadin -) 6 mg PO DAILY@1800 [facility] ASSESSMENT/PLAN: 77 y.o. F w/ PMHx. of HTN, NIDDM, Afib(s/p ablation on Coumadin), LLE DVT, CHFpEF, [place]( s/p catherization), CKD Stage 4, GERD, and over active bladder presents after waking up this morning short of breath. #Acute hypoxic respiratory failure due to COPD exacerbation (not on home O2) Continue Solumedrol tapered to 40mg po (day 4 of 40mg, will decrease to 30mg tomorrow) Continue bronchodilators PRN Pulmonary following and have discussed discharging pt with bipap Minimal clinical improvement thus far Pre-post resp test done: O2 not needed with ambulation; discontinued nasal cannula O2 Old sleep study (2014) reviewed and discussed with pulm; needs bipap at night due to mild TREVON and COPD; discharge with bipap (discussed with social work ) #TREVON Per overnight sleep apnea test, CPAP is ineffective and ruled out. Per pulm, pt will need bipap at home to help worsening TREVON #Pulmonary HTN Pulm. Art Pressure 27mm Hg on Echo in November 2018---> 33mmHg on Chest CT in March Pt.s status and clinical symptoms improved too quickly for this to be the main component echo reviewed #Afib EKG: NSR, Q waves in V1, QTc: 450 INR remains low at 1.34, increase dose of coumadin from 5 to 6 c/w Diltiazem 120mg Daily #DCHF BNP: 497.5 (lowest it has been on any admission) Echo (12/17): EF: 60-65%, E/A reversal consistent with diastolic pathology, mild AR +TR + MR, pulmonary artery pressure 27 mm Hg echo reviewed #CKD stage 5 - baseline ~3.6 Cr still elevated at 4.4 Per nephro, d/c lasix and administer 12 hr trial of IV fluids Continue to monitor labs Renal ultrasound done showing increased renal cortical echogenicity CT as outpatient to further evaluate #FEN No IVF after 12 hr trial, encourage PO intake as Pt. has been having decreased appetite, being mindful of an upper limit of 2L Replete as needed Diabetic/Na restricted Diet #DVT Ppx. C/w Warfarin as above, now in therapeutic range #Dispo Tele Bipap machine Pt.'s daughter left her number ([phone]) for updates Visit type - Emergency Visit Emergency Visit: No - New Patient This patient is new to me today: No - Critical Care Critical Care patient: No
--- NOTE | 2018-08-31 15:22 | PN ---
Progress Note (short form) - Note Progress Note: Renal follow up for JOSE on CKD Pt seen and examined at the bedside awake and alert sob is improved but not resolved has JOHNSON no chest pain, fever, chills, N/V/D making urine eating well Vital Signs Temperature 98.0 F 08/31/18 08:56 Pulse Rate 68 08/31/18 14:55 Respiratory Rate 20 08/31/18 14:55 Blood Pressure 170/66 08/31/18 14:55 O2 Sat by Pulse Oximetry (%) 97 08/31/18 10:00 Intake & Output 08/28/18 08/29/18 08/30/18 08/31/18 23:59 23:59 23:59 23:59 Intake Total 480 077 632 2750 Output Total 2 2 Balance 480 575 945 6868 Weight 92.986 kg 93.349 kg 94.166 kg 93.531 kg NAD awake and alert RRR Dec BS no LE edema CBC, BMP 08/31/18 06:10 08/31/18 06:10 Current Medications Ascorbic Acid (Vitamin C -) 1,000 mg PO DAILY [facility] Last Admin: 08/31/18 09:54 Dose: 1,000 mg Budesonide/Formoterol Fumarate (Symbicort 160/4.5mcg -) 2 puff IH BID [facility] Last Admin: 08/31/18 09:55 Dose: 2 puff Diltiazem HCl (Cardizem Cd -) 120 mg PO DAILY [facility] Last Admin: 08/31/18 09:54 Dose: 120 mg Ferrous Sulfate (Feosol -) 325 mg PO BIDWM [facility] Last Admin: 08/31/18 07:52 Dose: 325 mg Folic Acid (Folic Acid -) 1 mg PO DAILY [facility] Last Admin: 08/31/18 09:54 Dose: 1 mg Hydralazine HCl (Apresoline -) 100 mg PO TID [facility] Last Admin: 08/31/18 14:59 Dose: 100 mg Insulin Aspart (Novolog Vial Sliding Scale -) 1 vial SQ [facility]; Protocol Last Admin: 08/31/18 12:14 Dose: 2 units Insulin Detemir (Levemir Vial) 24 units SQ HS [facility] Last Admin: 08/30/18 21:50 Dose: 20 units Pantoprazole Sodium (Protonix -) 40 mg PO DAILY [facility] Last Admin: 08/31/18 09:54 Dose: 40 mg Prednisone (Deltasone -) 30 mg PO DAILY [facility] Sodium Bicarbonate (Sodium Bicarbonate -) 650 mg PO BID [facility] Last Admin: 08/31/18 09:54 Dose: 650 mg Warfarin Sodium (Coumadin -) 6 mg PO DAILY@1800 [facility] 77 year old woman with history of CKD stage 4/5 (baseline Cr 3.5), Hypertension, COPD, Hx of DVT presented with sob and elevated Cr. #JOSE on CKD due to intravascular volume depletion vs AIN #COPD exacerbation #Hypertension Cr improved s/p IVF will trend renal function off IVF and diuretics now no acute need for FISH TRAPPER high BUN multifactorial from renal insufficiency and steroids no acute need for FISH TRAPPER trend renal function and electrolytes steroid taper as per pulmonary Tylor Yousuf LUA
--- NOTE | 2018-08-31 17:41 | PN ---
Teaching Attending Note Name of Resident: Stacey Hammond ATTENDING PHYSICIAN STATEMENT I saw and evaluated the patient. I reviewed the resident's note and discussed the case with the resident. I agree with the resident's findings and plan as documented. ASSESSMENT AND PLAN: 77 y/o lady with h/o CAD, s/p MD, AFib , HTN, diastolic CHF, pulm HTN, TREVON, DM , LLE DVT, CKD 5, GERD and other medical problems who presented with SOB and was found to have acute COPD exacerbation. 1- Acute COPD exacerbation: - decrease prednisone to 30 starting tomorrow. cont Nebs and inhalers - pre-post done : no need for O2 even with ambulation - social work is working on getting BIPAP for use at HS at home 2- H/o CKD 5: IVF were given for 12 hours. - cont to monitor off IVF and off lasix. - L renal structure ( ? cyst) , will need to be investigated as out pt with further imaging 3- H/o A fib: cont cardizem - increase coumadin dose to 6 mg every PM 4- H/o chronic diastolic heart failure, stable - monitor off lasix 5- DM : Cont levemir and SSI 6- DVT PX: on coumadin Dispo: Need to arrange BIPAP before dc ( possibly on Thursday ). d/w SW
[2018-08-31] MEDS: INSULIN (LEVEMIR) 100 UNITS/ML UNITS SQ SCH (22:07)
[2018-09-01] MEDS: hydrALAZINE HCL 50 MG TABLET (FP) PO SCH ×3 (06:13→21:31)
[2018-09-01] MEDS: INSULIN SLIDING SCALE (NOVOLOG) 1 VIAL SQ SCH ×4 (06:14→21:32)
[2018-09-01 07:59] LABS: HEMATOCRIT 31.4 % (32.4-45.2); HEMOGLOBIN 10.4 GM/dL (10.7-15.3); INR 1.25 (0.83-1.09); MCH 31.6 pg (25.7-33.7); MCHC 33.2 g/dl (32.0-36.0); MEAN CELL VOLUME 95.3 fl (80-96); MEAN PLT VOLUME 10.1 fl (7.5-11.1); PLATELET COUNT 192 K/MM3 (134-434); PROTHROMBIN TIME (PATIENT) 14.8 SEC (9.7-13.0); WHITE BLOOD COUNT 10.7 K/mm3 (4.0-10.0)
--- NOTE | 2018-09-01 08:33 | PN ---
Teaching Attending Note Name of Resident: Herminia Russell ATTENDING PHYSICIAN STATEMENT I saw and evaluated the patient. I reviewed the resident's note and discussed the case with the resident. I agree with the resident's findings and plan as documented. SUBJECTIVE: Patient is feeling better with no acute distress. on NC. OBJECTIVE: Vital Signs Temperature 98 F 09/01/18 06:00 Pulse Rate 76 09/01/18 06:00 Respiratory Rate 22 H 09/01/18 06:00 Blood Pressure 143/66 09/01/18 06:00 O2 Sat by Pulse Oximetry (%) 96 08/31/18 21:00 GENERAL: The patient is awake, alert, and fully oriented, in no acute distress. HEAD: Normal with no signs of trauma. ENT: Moist mucous membranes. NECK: Normal range of motion and supple. LUNGS: decreased air entery BL , mild wheezes diffusely. No accessory muscle use noted. HEART: Regular rate and rhythm, S1, S2 without murmur, rub or gallop. ABDOMEN: Soft, NT,ND, normoactive bowel sounds, no guarding, no rebound, no hepatosplenomegaly, no masses. EXTREMITIES: 2+ pulses, no edema. SKIN: Warm, dry, no rashes or lesions noted CBCD WBC 11.1 K/mm3 (4.0-10.0) H 08/31/18 06:10 RBC 3.46 M/mm3 (3.60-5.2) L 08/31/18 06:10 Hgb 10.8 GM/dL (10.7-15.3) 08/31/18 06:10 Hct 33.2 % (32.4-45.2) 08/31/18 06:10 MCV 96.1 fl (80-96) H 08/31/18 06:10 MCHC 32.6 g/dl (32.0-36.0) 08/31/18 06:10 RDW 15.1 % (11.6-15.6) 08/31/18 06:10 Plt Count 198 K/MM3 (134-434) 08/31/18 06:10 MPV 10.1 fl (7.5-11.1) 08/31/18 06:10 CMP Sodium 138 mmol/L (136-145) 08/31/18 06:10 Potassium 4.9 mmol/L (3.5-5.1) 08/31/18 06:10 Chloride 105 mmol/L (98-107) 08/31/18 06:10 Carbon Dioxide 23 mmol/L (21-32) 08/31/18 06:10 Anion Gap 10 MMOL/L (8-16) 08/31/18 06:10 BUN 108.7 mg/dL (7-18) H* 08/31/18 06:10 Creatinine 4.4 mg/dL (0.55-1.3) H 08/31/18 06:10 Random Glucose 113 mg/dL (74-106) H 08/31/18 06:10 Calcium 7.7 mg/dL (8.5-10.1) L 08/31/18 06:10 Total Bilirubin 0.4 mg/dL (0.2-1) 08/31/18 06:10 AST 11 U/L (15-37) L 08/31/18 06:10 ALT 19 U/L (13-61) 08/31/18 06:10 Alkaline Phosphatase 39 U/L (45-117) L 08/31/18 06:10 Total Protein 5.6 g/dl (6.4-8.2) L 08/31/18 06:10 Albumin 2.9 g/dl (3.4-5.0) L 08/31/18 06:10 CARDIAC ENZYMES Creatine Kinase 113 U/L (26-192) 08/22/18 16:00 Troponin I 0.02 ng/ml (0.00-0.05) 08/22/18 16:00 Current Medications Generic Name Dose Route Start Last Admin Trade Name Jacquelyn PRN Reason Stop Dose Admin Ascorbic Acid 1,000 mg 08/23/18 10:00 08/31/18 09:54 Vitamin C - PO 1,000 mg DAILY [facility] Administration Budesonide/Formoterol Fumarate 2 puff 08/23/18 10:00 08/31/18 22:08 Symbicort 160/4.5mcg - IH 2 puff BID [facility] Administration Diltiazem HCl 120 mg 08/23/18 10:00 08/31/18 09:54 Cardizem Cd - PO 120 mg DAILY [facility] Administration Ferrous Sulfate 325 mg 08/22/18 22:00 08/31/18 17:10 Feosol - PO 325 mg BIDWM [facility] Administration Folic Acid 1 mg 08/23/18 10:00 08/31/18 09:54 Folic Acid - PO 1 mg DAILY [facility] Administration Hydralazine HCl 100 mg 08/24/18 14:00 09/01/18 06:13 Apresoline - PO 100 mg TID [facility] Administration Insulin Aspart 1 vial 08/25/18 18:53 09/01/18 06:14 Novolog Vial Sliding Scale - SQ Not Given [facility] Protocol Insulin Detemir 24 units 08/25/18 18:54 08/31/18 22:07 Levemir Vial SQ 24 units HS [facility] Administration Pantoprazole Sodium 40 mg 08/23/18 10:00 08/31/18 09:54 Protonix - PO 40 mg DAILY [facility] Administration Prednisone 30 mg 09/01/18 10:00 Deltasone - PO DAILY [facility] Sodium Bicarbonate 650 mg 08/22/18 22:00 08/31/18 22:07 Sodium Bicarbonate - PO 650 mg BID [facility] Administration Warfarin Sodium 6 mg 08/31/18 08:32 08/31/18 17:10 Coumadin - PO 6 mg DAILY@1800 [facility] Administration Home Medications Medication Instructions Recorded hydrALAZINE HCL [Apresoline -] 100 mg PO BID 01/28/17 Ferrous Sulfate 325 mg PO BID 02/02/17 Folic Acid 1 mg PO DAILY 12/09/17 Sodium Bicarbonate - 650 mg PO BID #40 tablet 12/11/17 Insulin (Levemir) [Levemir Vial] 20 units SQ HS 12/14/17 Ascorbic Acid [Vitamin C] 1,000 mg PO DAILY 03/08/18 Furosemide 40 mg PO DAILY 03/08/18 Warfarin Sodium [Coumadin] 7.5 mg PO HS 03/09/18 Diltiazem Cd [Cardizem Cd -] 120 mg PO DAILY 28 Days #28 03/11/18 cap.cd.24h ASSESSMENT AND PLAN: Patient is a 77yo female with CAD, s/p MT, AFib , HTN, diastolic CHF, pulm HTN, TREVON, DM , LLE DVT, CKD 5, GERD presented with SOB and was found to have exacerbation of COPD. # Acute COPD exacerbation: on prednisone with tapered dose, cont Nebs and inhalers, social work is working on getting BIPAP for use at home , waiting for approval. # H/o CKD 5: s/p IVF ,cont to monitor off IVF and off lasix. L renal cyst vs hypoechoic lesion cannot exclude renal mass, will need to be investigated further now and as out pt with further imaging . cannot give IV contrast since creatinine is 4.0 at this time. # H/o A fib: cont cardizem , coumadin dose to 6 mg every PM # H/o chronic diastolic heart failure, stable , monitor off lasix # DM : Cont levemir and SSI # DVT PX: on coumadin Dispo: Need to arrange BIPAP before dc ( possibly on Thursday ). d/w SW
[2018-09-01 08:43] LABS: ALBUMIN 2.8 g/dl (3.4-5.0); BILIRUBIN,TOTAL 0.4 mg/dL (0.2-1); CALCIUM 7.7 mg/dL (8.5-10.1); CREATININE 4.2 mg/dL (0.55-1.3); POTASSIUM 4.6 mmol/L (3.5-5.1); TOT PROT 5.1 g/dl (6.4-8.2)
--- NOTE | 2018-09-01 08:43 | PN ---
Physical Exam: SUBJECTIVE: Patient seen and examined. No acute events overnight. Pt did not use bipap machine overnight but slept with 3L O2 NC. She reports she slept well and denies any increased SOB or chest pain. Pt endorses worsening breathing with exertion. OBJECTIVE: Vital Signs Period Temp Pulse Resp BP Sys/Renee Pulse Ox Last 24 Hr 98 F-98.4 F 68-81 18-22 142-170/46-67 96-97 GENERAL: The patient is awake, alert, and fully oriented, in no acute distress. HEAD: Normal with no signs of trauma. ENT: Moist mucous membranes. NECK: Normal range of motion and supple. LUNGS: Poor air entry with scattered coarse breath sounds. No wheezes or accessory muscle use noted. HEART: Regular rate and rhythm, S1, S2 without murmur, rub or gallop. ABDOMEN: Soft, nontender, nondistended, normoactive bowel sounds, no guarding, no rebound, no hepatosplenomegaly, no masses. EXTREMITIES: 2+ pulses, no edema. SKIN: Warm, dry, no rashes or lesions noted PSYCH: Normal mood, normal affect. NEURO: Cranial nerves II through XII grossly intact. Normal speech, gait not observed. Laboratory Results - last 24 hr CBC, BMP 09/01/18 06:37 09/01/18 06:37 INR: 1.25 PT: 14.8 Active Medications Ascorbic Acid (Vitamin C -) 1,000 mg PO DAILY [facility] Last Admin: 08/31/18 09:54 Dose: 1,000 mg Budesonide/Formoterol Fumarate (Symbicort 160/4.5mcg -) 2 puff IH BID [facility] Last Admin: 08/31/18 22:08 Dose: 2 puff Diltiazem HCl (Cardizem Cd -) 120 mg PO DAILY [facility] Last Admin: 08/31/18 09:54 Dose: 120 mg Ferrous Sulfate (Feosol -) 325 mg PO BIDWM [facility] Last Admin: 08/31/18 17:10 Dose: 325 mg Folic Acid (Folic Acid -) 1 mg PO DAILY [facility] Last Admin: 08/31/18 09:54 Dose: 1 mg Hydralazine HCl (Apresoline -) 100 mg PO TID [facility] Last Admin: 09/01/18 06:13 Dose: 100 mg Insulin Aspart (Novolog Vial Sliding Scale -) 1 vial SQ [facility]; Protocol Last Admin: 09/01/18 06:14 Dose: Not Given Insulin Detemir (Levemir Vial) 24 units SQ HS [facility] Last Admin: 08/31/18 22:07 Dose: 24 units Pantoprazole Sodium (Protonix -) 40 mg PO DAILY [facility] Last Admin: 08/31/18 09:54 Dose: 40 mg Prednisone (Deltasone -) 30 mg PO DAILY [facility] Sodium Bicarbonate (Sodium Bicarbonate -) 650 mg PO BID [facility] Last Admin: 08/31/18 22:07 Dose: 650 mg Warfarin Sodium (Coumadin -) 6 mg PO DAILY@1800 [facility] Last Admin: 08/31/18 17:10 Dose: 6 mg ASSESSMENT/PLAN: 77 y.o. F w/ PMHx. of HTN, NIDDM, Afib(s/p ablation on Coumadin), LLE DVT, CHFpEF, [place]( s/p catherization), CKD Stage 4, GERD, and over active bladder presents after waking up this morning short of breath. #Acute hypoxic respiratory failure due to COPD exacerbation (not on home O2) Clinical improvement since admission Continue Solumedrol tapered to 30mg po today (day 1) Continue bronchodilators PRN Pre-post resp test done: O2 not needed with ambulation; discontinued nasal cannula O2 (prn) Old sleep study (2014) reviewed w/pulm; needs bipap at night due to mild TREVON and COPD; discharge with bipap (discussed with SW) #TREVON Per overnight sleep apnea test, CPAP is ineffective and ruled out Per pulm, pt will need bipap at home to help worsening TREVON #Pulmonary HTN Pulm. Art Pressure 27mm Hg on Echo in November 2018---> 33mmHg on Chest CT in March Pt.s status and clinical symptoms improved too quickly for this to be the main component echo reviewed #Afib EKG: NSR, Q waves in V1, QTc: 450 INR remains low at 1.25, increase dose of coumadin from 6 to home dose of 7.5 c/w Diltiazem 120mg Daily #DCHF BNP: 497.5 (lowest it has been on any admission) Echo (12/17): EF: 60-65%, E/A reversal consistent with diastolic pathology, mild AR +TR + MR, pulmonary artery pressure 27 mm Hg echo reviewed #CKD stage 5 - baseline ~3.6 Renal function improving (Cr down to 4.2 from 4.8) Per nephro, d/c lasix and fluids High BUN multifactorial from renal insufficiency and steroids Continue to trend labs Renal ultrasound done showing increased renal cortical echogenicity CT as outpatient to further evaluate #FEN Dc IVF, encourage PO intake as Pt. has been having decreased appetite, being mindful of an upper limit of 2L Replete as needed Diabetic/Na restricted Diet #DVT Ppx. C/w Warfarin as above, now in therapeutic range #Dispo Pt clinically stable, dc'ed pt from tele to med surg Bipap machine Pt.'s daughter left her number ([phone]) for updates Visit type - Emergency Visit Emergency Visit: No - New Patient This patient is new to me today: No - Critical Care Critical Care patient: No
[2018-09-01 08:47] LABS: BLOOD UREA NITROGEN 104.8 mg/dL (7-18)
[2018-09-01] MEDS: ASCORBIC ACID 500 MG TABLET (FP) PO SCH (09:26)
[2018-09-01] MEDS: SODIUM BICARBONATE 650 MG TABLET PO SCH ×2 (09:26→21:31)
[2018-09-01] MEDS: PANTOPRAZOLE 40 MG TABLET (FP) PO SCH (09:26)
[2018-09-01] MEDS: predniSONE 10 MG TABLET (UD) PO SCH (09:26)
[2018-09-01] MEDS: FERROUS SO4 325 MG TABLET (FP) PO SCH ×2 (09:27→17:29)
[2018-09-01] MEDS: FOLIC ACID 1 MG TABLET (FP) PO SCH (09:27)
[2018-09-01] MEDS: BUDESONIDE/FORMETEROL FUMARATE 160/4.5 mcg INHALER IH SCH ×2 (09:29→21:33)
--- NOTE | 2018-09-01 11:30 | PN ---
Progress Note, Physician History of Present Illness: pulmonary alert comfortable at rest ,+urbina,-cp,min cough. sleep screen AHI 17.2 - Current Medication List Current Medications: Active Medications Ascorbic Acid (Vitamin C -) 1,000 mg PO DAILY [facility] Last Admin: 09/01/18 09:26 Dose: 1,000 mg Budesonide/Formoterol Fumarate (Symbicort 160/4.5mcg -) 2 puff IH BID [facility] Last Admin: 09/01/18 09:29 Dose: 2 puff Diltiazem HCl (Cardizem Cd -) 120 mg PO DAILY [facility] Last Admin: 09/01/18 09:27 Dose: 120 mg Ferrous Sulfate (Feosol -) 325 mg PO BIDWM [facility] Last Admin: 09/01/18 09:27 Dose: 325 mg Folic Acid (Folic Acid -) 1 mg PO DAILY [facility] Last Admin: 09/01/18 09:27 Dose: 1 mg Hydralazine HCl (Apresoline -) 100 mg PO TID [facility] Last Admin: 09/01/18 06:13 Dose: 100 mg Insulin Aspart (Novolog Vial Sliding Scale -) 1 vial SQ [facility]; Protocol Last Admin: 09/01/18 06:14 Dose: Not Given Insulin Detemir (Levemir Vial) 24 units SQ [facility] Last Admin: 08/31/18 22:07 Dose: 24 units Pantoprazole Sodium (Protonix -) 40 mg PO DAILY [facility] Last Admin: 09/01/18 09:26 Dose: 40 mg Prednisone (Deltasone -) 30 mg PO DAILY [facility] Last Admin: 09/01/18 09:26 Dose: 30 mg Sodium Bicarbonate (Sodium Bicarbonate -) 650 mg PO BID [facility] Last Admin: 09/01/18 09:26 Dose: 650 mg Warfarin Sodium (Coumadin -) 6 mg PO DAILY@1800 [facility] Last Admin: 08/31/18 17:10 Dose: 6 mg - Objective Vital Signs: Vital Signs Temperature 98.6 F 09/01/18 09:01 Pulse Rate 80 09/01/18 09:01 Respiratory Rate 20 09/01/18 09:01 Blood Pressure 152/66 09/01/18 09:01 O2 Sat by Pulse Oximetry (%) 96 08/31/18 21:00 Constitutional: Yes: Well Nourished, Calm Eyes: Yes: WNL HENT: Yes: WNL Neck: Yes: WNL Cardiovascular: Yes: Pulse Irregular, S1, S2 Respiratory: Yes: Diminished Gastrointestinal: Yes: Normal Bowel Sounds, Soft Extremities: Yes: WNL Edema: No Labs: CBC, BMP 09/01/18 06:37 09/01/18 06:37 INR, PTT INR 1.25 (0.83-1.09) H 09/01/18 06:37 Assessment/Plan Problem List - Problems (1) Afib Code(s): I48.91 - UNSPECIFIED ATRIAL FIBRILLATION Qualifiers: Atrial fibrillation type: unspecified Qualified Code(s): I48.91 - Unspecified atrial fibrillation (2) Anemia Code(s): D64.9 - ANEMIA, UNSPECIFIED (3) Asthma Code(s): J45.909 - UNSPECIFIED ASTHMA, UNCOMPLICATED (4) CKD (chronic kidney disease) Code(s): N18.9 - CHRONIC KIDNEY DISEASE, UNSPECIFIED (5) COPD (chronic obstructive pulmonary disease) Code(s): J44.9 - CHRONIC OBSTRUCTIVE PULMONARY DISEASE, UNSPECIFIED Qualifiers: COPD type: chronic bronchitis (6) Diastolic CHF Code(s): I50.30 - UNSPECIFIED DIASTOLIC (CONGESTIVE) HEART FAILURE Qualifiers: Heart failure chronicity: chronic Qualified Code(s): I50.32 - Chronic diastolic (congestive) heart failure (7) IDDM (insulin dependent diabetes mellitus) Code(s): E11.9 - TYPE 2 DIABETES MELLITUS WITHOUT COMPLICATIONS; Z79.4 - NURSING HOME (CURRENT) USE OF INSULIN (8) Migraine headache Code(s): G43.909 - MIGRAINE, UNSP, NOT INTRACTABLE, WITHOUT STATUS MIGRAINOSUS Qualifiers: Migraine type: other Intractability: not intractable (9) Paroxysmal atrial fibrillation with RVR Code(s): I48.0 - PAROXYSMAL ATRIAL FIBRILLATION (10) Shortness of breath Code(s): R06.02 - SHORTNESS OF BREATH (11) CAD (coronary artery disease) Code(s): I25.10 - ATHSCL HEART DISEASE OF [place] CORONARY ARTERY W/O ANG PCTRS (12) CHF (congestive heart failure) Code(s): I50.9 - HEART FAILURE, UNSPECIFIED (13) Depression Code(s): F32.9 - MAJOR DEPRESSIVE DISORDER, SINGLE EPISODE, UNSPECIFIED Qualifiers: Depression Type: unspecified Qualified Code(s): F32.9 - Major depressive disorder, single episode, unspecified (14) Gastroesophageal reflux disease Code(s): K21.9 - GASTRO-ESOPHAGEAL REFLUX DISEASE WITHOUT ESOPHAGITIS (15) History of DVT (deep vein thrombosis) Code(s): Z86.718 - PERSONAL HISTORY OF OTHER VENOUS THROMBOSIS AND EMBOLISM (16) Hyperlipidemia Code(s): E78.5 - HYPERLIPIDEMIA, UNSPECIFIED Qualifiers: Hyperlipidemia type: pure hypercholesterolemia Qualified Code(s): E78.00 - Pure hypercholesterolemia, unspecified; E78.0 - Pure hypercholesterolemia (17) Hypertension Code(s): I10 - ESSENTIAL (PRIMARY) HYPERTENSION Qualifiers: Hypertension type: essential hypertension Qualified Code(s): I10 - Essential (primary) hypertension (18) Peripheral arterial disease Code(s): I73.9 - PERIPHERAL VASCULAR DISEASE, UNSPECIFIED (19) Type 2 diabetes mellitus Code(s): E11.9 - TYPE 2 DIABETES MELLITUS WITHOUT COMPLICATIONS Qualifiers: Diabetes mellitus complication status: with circulatory complication (20) Pulmonary hypertension Code(s): I27.2 - OTHER SECONDARY PULMONARY HYPERTENSION * DO NOT USE * ACUTE ON CHRONIC KIDNEY FAILURE [facility] Assessment/Plan Prednisone Inhaled BD NC O2 as needed monitor lytes,renal function ambulatory o2 sat Bipap at night DR GOULD
--- NOTE | 2018-09-01 12:22 | PN ---
Progress Note (short form) - Note Progress Note: Renal follow up for JOSE on CKD Pt seen and examined at the bedside awake and alert no acute complaints sob is improved Vital Signs Temperature 98.6 F 09/01/18 09:01 Pulse Rate 80 09/01/18 09:01 Respiratory Rate 20 09/01/18 09:01 Blood Pressure 152/66 09/01/18 09:01 O2 Sat by Pulse Oximetry (%) 96 08/31/18 21:00 Intake & Output 08/29/18 08/30/18 08/31/18 09/01/18 23:59 23:59 23:59 23:59 Intake Total 559 308 3911 0 Output Total 2 2 Balance 612 702 5840 0 Weight 93.349 kg 94.166 kg 93.531 kg 94.619 kg NAD awake and alert RRR Dec BS no LE edema CBC, BMP 09/01/18 06:37 09/01/18 06:37 Current Medications Ascorbic Acid (Vitamin C -) 1,000 mg PO DAILY [facility] Last Admin: 09/01/18 09:26 Dose: 1,000 mg Budesonide/Formoterol Fumarate (Symbicort 160/4.5mcg -) 2 puff IH BID [facility] Last Admin: 09/01/18 09:29 Dose: 2 puff Diltiazem HCl (Cardizem Cd -) 120 mg PO DAILY [facility] Last Admin: 09/01/18 09:27 Dose: 120 mg Ferrous Sulfate (Feosol -) 325 mg PO BIDWM [facility] Last Admin: 09/01/18 09:27 Dose: 325 mg Folic Acid (Folic Acid -) 1 mg PO DAILY [facility] Last Admin: 09/01/18 09:27 Dose: 1 mg Hydralazine HCl (Apresoline -) 100 mg PO TID [facility] Last Admin: 09/01/18 06:13 Dose: 100 mg Insulin Aspart (Novolog Vial Sliding Scale -) 1 vial SQ ACHS [facility]; Protocol Last Admin: 09/01/18 12:05 Dose: 2 units Insulin Detemir (Levemir Vial) 24 units SQ HS [facility] Last Admin: 08/31/18 22:07 Dose: 24 units Pantoprazole Sodium (Protonix -) 40 mg PO DAILY [facility] Last Admin: 09/01/18 09:26 Dose: 40 mg Prednisone (Deltasone -) 30 mg PO DAILY [facility] Last Admin: 09/01/18 09:26 Dose: 30 mg Sodium Bicarbonate (Sodium Bicarbonate -) 650 mg PO BID [facility] Last Admin: 09/01/18 09:26 Dose: 650 mg Warfarin Sodium (Coumadin -) 6 mg PO DAILY@1800 [facility] Last Admin: 08/31/18 17:10 Dose: 6 mg 77 year old woman with history of CKD stage 4/5 (baseline Cr 3.5), Hypertension, COPD, Hx of DVT presented with sob and elevated Cr. #JOSE on CKD due to intravascular volume depletion vs AIN #COPD exacerbation #Hypertension Renal function improving no acute need for [employer] holding diuretics for now high BUN multifactorial from renal insufficiency and steroids trend renal function and electrolytes steroid taper as per pulmonary Tylor To DO
[2018-09-01] MEDS ORDERED: INSULIN (NOVOLOG) ASPART 100 UNITS/ML 10ML VIAL ONE (17:19)
[2018-09-01] MEDS ORDERED: WARFARIN NA 7.5 MG TABLET (FP) PO SCH (18:00)
[2018-09-01] MEDS: INSULIN (LEVEMIR) 100 UNITS/ML UNITS SQ SCH (21:32)
[2018-09-01 23:06] VITALS: BMI 29.8
[2018-09-02] MEDS: INSULIN SLIDING SCALE (NOVOLOG) 1 VIAL SQ SCH ×4 (06:09→23:17)
[2018-09-02] MEDS: hydrALAZINE HCL 50 MG TABLET (FP) PO SCH ×3 (06:09→23:14)
[2018-09-02 07:57] LABS: HEMATOCRIT 32.5 % (32.4-45.2); HEMOGLOBIN 10.9 GM/dL (10.7-15.3); MCHC 33.5 g/dl (32.0-36.0); MEAN CELL VOLUME 95.8 fl (80-96); MEAN PLT VOLUME 9.8 fl (7.5-11.1); WHITE BLOOD COUNT 10.9 K/mm3 (4.0-10.0)
[2018-09-02 08:11] LABS: INR 1.34 (0.83-1.09); PROTHROMBIN TIME (PATIENT) 15.9 SEC (9.7-13.0)
[2018-09-02 08:33] LABS: ALBUMIN 2.8 g/dl (3.4-5.0); BILIRUBIN,TOTAL 0.6 mg/dL (0.2-1); BLOOD UREA NITROGEN 97.7 mg/dL (7-18); CALCIUM 8.3 mg/dL (8.5-10.1); CREATININE 4.1 mg/dL (0.55-1.3); POTASSIUM 4.8 mmol/L (3.5-5.1); TOT PROT 5.4 g/dl (6.4-8.2)
[2018-09-02 08:39] LABS: PLATELET COUNT 192 K/MM3 (134-434)
--- NOTE | 2018-09-02 08:49 | PN ---
Progress Note, Physician History of Present Illness: pulmonary alert,comfortable at rest,+ urbina,-cp,-cough - Current Medication List Current Medications: Active Medications Ascorbic Acid (Vitamin C -) 1,000 mg PO DAILY [facility] Last Admin: 09/01/18 09:26 Dose: 1,000 mg Budesonide/Formoterol Fumarate (Symbicort 160/4.5mcg -) 2 puff IH BID [facility] Last Admin: 09/01/18 21:33 Dose: 2 puff Diltiazem HCl (Cardizem Cd -) 120 mg PO DAILY [facility] Last Admin: 09/01/18 09:27 Dose: 120 mg Ferrous Sulfate (Feosol -) 325 mg PO BIDWM [facility] Last Admin: 09/01/18 17:29 Dose: 325 mg Folic Acid (Folic Acid -) 1 mg PO DAILY [facility] Last Admin: 09/01/18 09:27 Dose: 1 mg Hydralazine HCl (Apresoline -) 100 mg PO TID [facility] Last Admin: 09/02/18 06:09 Dose: 100 mg Insulin Aspart (Novolog Vial Sliding Scale -) 1 vial SQ [facility]; Protocol Last Admin: 09/02/18 06:09 Dose: Not Given Insulin Detemir (Levemir Vial) 24 units SQ HS [facility] Last Admin: 09/01/18 21:32 Dose: 24 units Pantoprazole Sodium (Protonix -) 40 mg PO DAILY [facility] Last Admin: 09/01/18 09:26 Dose: 40 mg Prednisone (Deltasone -) 30 mg PO DAILY [facility] Last Admin: 09/01/18 09:26 Dose: 30 mg Sodium Bicarbonate (Sodium Bicarbonate -) 650 mg PO BID [facility] Last Admin: 09/01/18 21:31 Dose: 650 mg Warfarin Sodium (Coumadin -) 7.5 mg PO DAILY@1800 [facility] Last Admin: 09/01/18 17:29 Dose: 7.5 mg - Objective Vital Signs: Vital Signs Temperature 98.5 F 09/02/18 06:28 Pulse Rate 67 09/02/18 06:28 Respiratory Rate 20 09/02/18 06:28 Blood Pressure 169/71 09/02/18 06:28 O2 Sat by Pulse Oximetry (%) 98 09/02/18 07:37 Constitutional: Yes: Well Nourished, Calm Eyes: Yes: WNL HENT: Yes: WNL Neck: Yes: WNL Cardiovascular: Yes: Regular Rate and Rhythm, S1, S2 Respiratory: Yes: CTA Bilaterally Gastrointestinal: Yes: Normal Bowel Sounds, Soft Extremities: Yes: WNL Edema: No Labs: CBC, BMP 09/02/18 06:31 09/02/18 06:31 INR, PTT INR 1.34 (0.83-1.09) H 09/02/18 06:31 Assessment/Plan Problem List - Problems (1) Afib Code(s): I48.91 - UNSPECIFIED ATRIAL FIBRILLATION Qualifiers: Atrial fibrillation type: unspecified Qualified Code(s): I48.91 - Unspecified atrial fibrillation (2) Anemia Code(s): D64.9 - ANEMIA, UNSPECIFIED (3) Asthma Code(s): J45.909 - UNSPECIFIED ASTHMA, UNCOMPLICATED (4) CKD (chronic kidney disease) Code(s): N18.9 - CHRONIC KIDNEY DISEASE, UNSPECIFIED (5) COPD (chronic obstructive pulmonary disease) Code(s): J44.9 - CHRONIC OBSTRUCTIVE PULMONARY DISEASE, UNSPECIFIED Qualifiers: COPD type: chronic bronchitis (6) Diastolic CHF Code(s): I50.30 - UNSPECIFIED DIASTOLIC (CONGESTIVE) HEART FAILURE Qualifiers: Heart failure chronicity: chronic Qualified Code(s): I50.32 - Chronic diastolic (congestive) heart failure (7) IDDM (insulin dependent diabetes mellitus) Code(s): E11.9 - TYPE 2 DIABETES MELLITUS WITHOUT COMPLICATIONS; Z79.4 - JEWELRY AP[employer]AISER (CURRENT) USE OF INSULIN (8) Migraine headache Code(s): G43.909 - MIGRAINE, UNSP, NOT INTRACTABLE, WITHOUT STATUS MIGRAINOSUS Qualifiers: Migraine type: other Intractability: not intractable (9) Paroxysmal atrial fibrillation with RVR Code(s): I48.0 - PAROXYSMAL ATRIAL FIBRILLATION (10) Shortness of breath Code(s): R06.02 - SHORTNESS OF BREATH (11) CAD (coronary artery disease) Code(s): I25.10 - ATHSCL HEART DISEASE OF [place] CORONARY ARTERY W/O ANG PCTRS (12) CHF (congestive heart failure) Code(s): I50.9 - HEART FAILURE, UNSPECIFIED (13) Depression Code(s): F32.9 - MAJOR DEPRESSIVE DISORDER, SINGLE EPISODE, UNSPECIFIED Qualifiers: Depression Type: unspecified Qualified Code(s): F32.9 - Major depressive disorder, single episode, unspecified (14) Gastroesophageal reflux disease Code(s): K21.9 - GASTRO-ESOPHAGEAL REFLUX DISEASE WITHOUT ESOPHAGITIS (15) History of DVT (deep vein thrombosis) Code(s): Z86.718 - PERSONAL HISTORY OF OTHER VENOUS THROMBOSIS AND EMBOLISM (16) Hyperlipidemia Code(s): E78.5 - HYPERLIPIDEMIA, UNSPECIFIED Qualifiers: Hyperlipidemia type: pure hypercholesterolemia Qualified Code(s): E78.00 - Pure hypercholesterolemia, unspecified; E78.0 - Pure hypercholesterolemia (17) Hypertension Code(s): I10 - ESSENTIAL (PRIMARY) HYPERTENSION Qualifiers: Hypertension type: essential hypertension Qualified Code(s): I10 - Essential (primary) hypertension (18) Peripheral arterial disease Code(s): I73.9 - PERIPHERAL VASCULAR DISEASE, UNSPECIFIED (19) Type 2 diabetes mellitus Code(s): E11.9 - TYPE 2 DIABETES MELLITUS WITHOUT COMPLICATIONS Qualifiers: Diabetes mellitus complication status: with circulatory complication (20) Pulmonary hypertension Code(s): I27.2 - OTHER SECONDARY PULMONARY HYPERTENSION * DO NOT USE * ACUTE ON CHRONIC KIDNEY FAILURE [facility] Assessment/Plan Prednisone Inhaled BD NC O2 as needed monitor lytes,renal function ambulatory o2 sat Bipap at night DR GOULD
[2018-09-02] MEDS: ASCORBIC ACID 500 MG TABLET (FP) PO SCH (09:41)
[2018-09-02] MEDS: predniSONE 10 MG TABLET (UD) PO SCH (09:42)
[2018-09-02] MEDS: FOLIC ACID 1 MG TABLET (FP) PO SCH (09:42)
[2018-09-02] MEDS: PANTOPRAZOLE 40 MG TABLET (FP) PO SCH (09:42)
[2018-09-02] MEDS: SODIUM BICARBONATE 650 MG TABLET PO SCH ×2 (09:42→23:15)
[2018-09-02] MEDS: FERROUS SO4 325 MG TABLET (FP) PO SCH ×2 (09:42→17:34)
[2018-09-02] MEDS: BUDESONIDE/FORMETEROL FUMARATE 160/4.5 mcg INHALER IH SCH ×2 (09:43→23:15)
--- NOTE | 2018-09-02 11:02 | PN ---
Progress Note (short form) - Note Progress Note: Renal follow up for JOSE on CKD Pt seen and examined at the bedside awake and alert on NC O2 no acute complaints feels better no acute sob, chest pain, abd pain, fever Vital Signs Temperature 98.5 F 09/02/18 06:28 Pulse Rate 67 09/02/18 06:28 Respiratory Rate 20 09/02/18 06:28 Blood Pressure 169/71 09/02/18 06:28 O2 Sat by Pulse Oximetry (%) 98 09/02/18 07:37 Intake & Output 08/30/18 08/31/18 09/01/18 09/02/18 23:59 23:59 23:59 23:59 Intake Total 260 1846 0 10 Output Total 2 Balance 258 1846 0 10 Weight 94.166 kg 93.531 kg 94.619 kg 94.982 kg NAD awake and alert RRR Dec BS no LE edema CBC, BMP 09/02/18 06:31 09/02/18 06:31 Current Medications Ascorbic Acid (Vitamin C -) 1,000 mg PO DAILY [facility] Last Admin: 09/02/18 09:41 Dose: 1,000 mg Budesonide/Formoterol Fumarate (Symbicort 160/4.5mcg -) 2 puff IH BID [facility] Last Admin: 09/02/18 09:43 Dose: 2 puff Diltiazem HCl (Cardizem Cd -) 120 mg PO DAILY [facility] Last Admin: 09/02/18 09:42 Dose: 120 mg Ferrous Sulfate (Feosol -) 325 mg PO BIDWM [facility] Last Admin: 09/02/18 09:42 Dose: 325 mg Folic Acid (Folic Acid -) 1 mg PO DAILY [facility] Last Admin: 09/02/18 09:42 Dose: 1 mg Hydralazine HCl (Apresoline -) 100 mg PO TID [facility] Last Admin: 09/02/18 06:09 Dose: 100 mg Insulin Aspart (Novolog Vial Sliding Scale -) 1 vial SQ [facility]; Protocol Last Admin: 09/02/18 06:09 Dose: Not Given Insulin Detemir (Levemir Vial) 24 units SQ [facility] Last Admin: 09/01/18 21:32 Dose: 24 units Pantoprazole Sodium (Protonix -) 40 mg PO DAILY [facility] Last Admin: 09/02/18 09:42 Dose: 40 mg Prednisone (Deltasone -) 30 mg PO DAILY [facility] Last Admin: 09/02/18 09:42 Dose: 30 mg Sodium Bicarbonate (Sodium Bicarbonate -) 650 mg PO BID [facility] Last Admin: 09/02/18 09:42 Dose: 650 mg Warfarin Sodium (Coumadin -) 7.5 mg PO DAILY@1800 [facility] Last Admin: 09/01/18 17:29 Dose: 7.5 mg 77 year old woman with history of CKD stage 4/5 (baseline Cr 3.5), Hypertension, COPD, Hx of DVT presented with sob and elevated Cr. #JOSE on CKD due to intravascular volume depletion vs AIN #COPD exacerbation #Hypertension Renal function improving off diureitcs BUN improving with steroid taper no overt uremic symptoms high BUN multifactorial from renal insufficiency and steroids trend renal function and electrolytes steroid taper as per pulmonary BP is above goal, add amlodipine 5mg Tylor To DO
--- NOTE | 2018-09-02 15:30 | PN ---
Progress Note (short form) - Note Progress Note: Patient is feeling better with no acute distress. on NC at this time. Vital Signs Temperature 98 F 09/02/18 13:00 Pulse Rate 68 09/02/18 13:00 Respiratory Rate 18 09/02/18 13:00 Blood Pressure 170/59 L 09/02/18 13:00 O2 Sat by Pulse Oximetry (%) 98 09/02/18 07:37 GENERAL: The patient is awake, alert, and fully oriented, in no acute distress. HEAD: Normal with no signs of trauma. ENT: Moist mucous membranes. NECK: Normal range of motion and supple. LUNGS: decreased air entery BL , no wheezing , No accessory muscle use noted. HEART: Regular rate and rhythm, S1, S2 without murmur, rub or gallop. ABDOMEN: Soft, NT,ND, normoactive bowel sounds, no guarding, no rebound, no hepatosplenomegaly, no masses. EXTREMITIES: 2+ pulses, no edema. SKIN: Warm, dry, no rashes or lesions noted CBCD WBC 10.9 K/mm3 (4.0-10.0) H 09/02/18 06:31 RBC 3.40 M/mm3 (3.60-5.2) L 09/02/18 06:31 Hgb 10.9 GM/dL (10.7-15.3) 09/02/18 06:31 Hct 32.5 % (32.4-45.2) 09/02/18 06:31 MCV 95.8 fl (80-96) 09/02/18 06:31 MCHC 33.5 g/dl (32.0-36.0) 09/02/18 06:31 RDW 15.0 % (11.6-15.6) 09/02/18 06:31 Plt Count 192 K/MM3 (134-434) 09/02/18 06:31 MPV 9.8 fl (7.5-11.1) 09/02/18 06:31 CMP Sodium 138 mmol/L (136-145) 09/02/18 06:31 Potassium 4.8 mmol/L (3.5-5.1) 09/02/18 06:31 Chloride 105 mmol/L (98-107) 09/02/18 06:31 Carbon Dioxide 24 mmol/L (21-32) 09/02/18 06:31 Anion Gap 10 MMOL/L (8-16) 09/02/18 06:31 BUN 97.7 mg/dL (7-18) H 09/02/18 06:31 Creatinine 4.1 mg/dL (0.55-1.3) H 09/02/18 06:31 Random Glucose 84 mg/dL (74-106) 09/02/18 06:31 Calcium 8.3 mg/dL (8.5-10.1) L 09/02/18 06:31 Total Bilirubin 0.6 mg/dL (0.2-1) 09/02/18 06:31 AST 11 U/L (15-37) L 09/02/18 06:31 ALT 20 U/L (13-61) 09/02/18 06:31 Alkaline Phosphatase 37 U/L (45-117) L 09/02/18 06:31 Total Protein 5.4 g/dl (6.4-8.2) L 09/02/18 06:31 Albumin 2.8 g/dl (3.4-5.0) L 09/02/18 06:31 CARDIAC ENZYMES Creatine Kinase 113 U/L (26-192) 08/22/18 16:00 Troponin I 0.02 ng/ml (0.00-0.05) 08/22/18 16:00 Current Medications Generic Name Dose Route Start Last Admin Trade Name Jacquelyn PRN Reason Stop Dose Admin Ascorbic Acid 1,000 mg 08/23/18 10:00 09/02/18 09:41 Vitamin C - PO 1,000 mg DAILY [facility] Administration Budesonide/Formoterol Fumarate 2 puff 08/23/18 10:00 09/02/18 09:43 Symbicort 160/4.5mcg - IH 2 puff BID [facility] Administration Diltiazem HCl 120 mg 08/23/18 10:00 09/02/18 09:42 Cardizem Cd - PO 120 mg DAILY [facility] Administration Ferrous Sulfate 325 mg 08/22/18 22:00 09/02/18 09:42 Feosol - PO 325 mg BIDWM [facility] Administration Folic Acid 1 mg 08/23/18 10:00 09/02/18 09:42 Folic Acid - PO 1 mg DAILY [facility] Administration Hydralazine HCl 100 mg 08/24/18 14:00 09/02/18 13:34 Apresoline - PO 100 mg TID [facility] Administration Insulin Aspart 1 vial 08/25/18 18:53 09/02/18 11:50 Novolog Vial Sliding Scale - SQ 2 units ACHS [facility] Administration Protocol Insulin Detemir 24 units 08/25/18 18:54 09/01/18 21:32 Levemir Vial SQ 24 units HS [facility] Administration Pantoprazole Sodium 40 mg 08/23/18 10:00 09/02/18 09:42 Protonix - PO 40 mg DAILY [facility] Administration Prednisone 30 mg 09/01/18 10:00 09/02/18 09:42 Deltasone - PO 30 mg DAILY [facility] Administration Sodium Bicarbonate 650 mg 08/22/18 22:00 09/02/18 09:42 Sodium Bicarbonate - PO 650 mg BID [facility] Administration Warfarin Sodium 10 mg 09/02/18 15:29 Coumadin - PO DAILY@1800 [facility] Assessment and plan: Patient is a 77yo female with CAD, s/p AK, AFib , HTN, diastolic CHF, pulm HTN, TREVON, DM , LLE DVT, CKD 5, GERD presented with SOB and was found to have exacerbation of COPD. # Acute COPD exacerbation:improving on prednisone with tapered dose, cont Nebs and inhalers, social work is working on getting BIPAP for use at home , waiting for approval. # H/o CKD 5: s/p IVF ,cont to monitor off IVF and off lasix. ordered NON contrast CT will follow the result. L renal cyst vs hypoechoic lesion cannot exclude renal mass, will need to be investigated further now and as out pt with further imaging . cannot give IV contrast since creatinine is 4.0 at this time. # H/o A fib: cont cardizem , INR is nontherapeutic , will increase the dose to 10mg tonight for 7.5mg, repeat PT/INR # H/o chronic diastolic heart failure, stable , monitor off lasix # DM : Cont levemir and SSI # DVT PX: on coumadin Dispo: Need to arrange BIPAP before dc ( possibly on Thursday ). d/w SW Visit type - Emergency Visit Emergency Visit: Yes ED Registration Date: 08/22/18 Care time: The patient presented to the Emergency Department on the above date and was hospitalized for further evaluation of their emergent condition. - New Patient This patient is new to me today: No - Critical Care Critical Care patient: No - Discharge Referral Referred to [facility] Med [facility] No
[2018-09-02] MEDS: WARFARIN NA 10 MG TABLET (FP) PO SCH (17:35)
[2018-09-02] MEDS ORDERED: ALBUTEROL SO4 0.083% IH SOL 2.5 MG/3 ML VIAL.NEB. NEB PRN (20:48)
[2018-09-02] MEDS: ALBUTEROL SO4 2.5/IPRATROPIUM 0.5 INH SOL 3 ML VIAL.NEB. NEB SCH (21:00)
[2018-09-02] MEDS: INSULIN (LEVEMIR) 100 UNITS/ML UNITS SQ SCH (23:16)
[2018-09-03] MEDS: hydrALAZINE HCL 50 MG TABLET (FP) PO SCH ×2 (05:25→14:44)
[2018-09-03] MEDS: INSULIN SLIDING SCALE (NOVOLOG) 1 VIAL SQ SCH ×4 (05:38→17:23)
[2018-09-03] MEDS: ALBUTEROL SO4 2.5/IPRATROPIUM 0.5 INH SOL 3 ML VIAL.NEB. NEB SCH (07:37)
[2018-09-03 08:46] LABS: INR 1.4 (0.83-1.09); PROTHROMBIN TIME (PATIENT) 16.6 SEC (9.7-13.0)
--- NOTE | 2018-09-03 09:36 | PN ---
Progress Note (short form) - Note Progress Note: PULMONARY Awake/alert/ subjective improvement in breathing VSS/afebrile Constitutional: Yes: Well Nourished, Calm Eyes: Yes: WNL HENT: Yes: WNL Neck: Yes: WNL Cardiovascular: Yes: Regular Rate and Rhythm, S1, S2 Respiratory: Yes: CTA Bilaterally Gastrointestinal: Yes: Normal Bowel Sounds, Soft Extremities: Yes: WNL Edema: No Labs: noted Problem List - Problems (1) Afib Code(s): I48.91 - UNSPECIFIED ATRIAL FIBRILLATION Qualifiers: Atrial fibrillation type: unspecified Qualified Code(s): I48.91 - Unspecified atrial fibrillation (2) Anemia Code(s): D64.9 - ANEMIA, UNSPECIFIED (3) Asthma Code(s): J45.909 - UNSPECIFIED ASTHMA, UNCOMPLICATED (4) CKD (chronic kidney disease) Code(s): N18.9 - CHRONIC KIDNEY DISEASE, UNSPECIFIED (5) COPD (chronic obstructive pulmonary disease) Code(s): J44.9 - CHRONIC OBSTRUCTIVE PULMONARY DISEASE, UNSPECIFIED Qualifiers: COPD type: chronic bronchitis (6) Diastolic CHF Code(s): I50.30 - UNSPECIFIED DIASTOLIC (CONGESTIVE) HEART FAILURE Qualifiers: Heart failure chronicity: chronic Qualified Code(s): I50.32 - Chronic diastolic (congestive) heart failure (7) IDDM (insulin dependent diabetes mellitus) Code(s): E11.9 - TYPE 2 DIABETES MELLITUS WITHOUT COMPLICATIONS; Z79.4 - DIRECTOR [employer]LEMETRY (CURRENT) USE OF INSULIN (8) Migraine headache Code(s): G43.909 - MIGRAINE, UNSP, NOT INTRACTABLE, WITHOUT STATUS MIGRAINOSUS Qualifiers: Migraine type: other Intractability: not intractable (9) Paroxysmal atrial fibrillation with RVR Code(s): I48.0 - PAROXYSMAL ATRIAL FIBRILLATION (10) Shortness of breath Code(s): R06.02 - SHORTNESS OF BREATH (11) CAD (coronary artery disease) Code(s): I25.10 - ATHSCL HEART DISEASE OF [place] CORONARY ARTERY W/O ANG PCTRS (12) CHF (congestive heart failure) Code(s): I50.9 - HEART FAILURE, UNSPECIFIED (13) Depression Code(s): F32.9 - MAJOR DEPRESSIVE DISORDER, SINGLE EPISODE, UNSPECIFIED Qualifiers: Depression Type: unspecified Qualified Code(s): F32.9 - Major depressive disorder, single episode, unspecified (14) Gastroesophageal reflux disease Code(s): K21.9 - GASTRO-ESOPHAGEAL REFLUX DISEASE WITHOUT ESOPHAGITIS (15) History of DVT (deep vein thrombosis) Code(s): Z86.718 - PERSONAL HISTORY OF OTHER VENOUS THROMBOSIS AND EMBOLISM (16) Hyperlipidemia Code(s): E78.5 - HYPERLIPIDEMIA, UNSPECIFIED Qualifiers: Hyperlipidemia type: pure hypercholesterolemia Qualified Code(s): E78.00 - Pure hypercholesterolemia, unspecified; E78.0 - Pure hypercholesterolemia (17) Hypertension Code(s): I10 - ESSENTIAL (PRIMARY) HYPERTENSION Qualifiers: Hypertension type: essential hypertension Qualified Code(s): I10 - Essential (primary) hypertension (18) Peripheral arterial disease Code(s): I73.9 - PERIPHERAL VASCULAR DISEASE, UNSPECIFIED (19) Type 2 diabetes mellitus Code(s): E11.9 - TYPE 2 DIABETES MELLITUS WITHOUT COMPLICATIONS Qualifiers: Diabetes mellitus complication status: with circulatory complication (20) Pulmonary hypertension Code(s): I27.2 - OTHER SECONDARY PULMONARY HYPERTENSION * DO NOT USE * Assessment/Plan Prednisone Inhaled BD NC O2 as needed monitor lytes,renal function ambulatory o2 sat Bipap at night will have ct abd/pelvis no contrast Angella DURAN MD
[2018-09-03] MEDS ORDERED: ENOXAPARIN NA (PORCINE) 100 MG/1 ML DISP.SYRIN SQ ONE (10:39)
[2018-09-03] MEDS: FERROUS SO4 325 MG TABLET (FP) PO SCH ×2 (11:08→17:17)
[2018-09-03] MEDS: FOLIC ACID 1 MG TABLET (FP) PO SCH (11:10)
[2018-09-03] MEDS: predniSONE 10 MG TABLET (UD) PO SCH (11:10)
[2018-09-03] MEDS: SODIUM BICARBONATE 650 MG TABLET PO SCH (11:10)
[2018-09-03] MEDS: PANTOPRAZOLE 40 MG TABLET (FP) PO SCH (11:10)
[2018-09-03] MEDS: ASCORBIC ACID 500 MG TABLET (FP) PO SCH (11:11)
[2018-09-03] MEDS: BUDESONIDE/FORMETEROL FUMARATE 160/4.5 mcg INHALER IH SCH (11:13)
[2018-09-03] MEDS ORDERED: ENOXAPARIN 30 MG, ENOXAPARIN 80 MG SQ SCH (11:30)
[2018-09-03] MEDS ORDERED: ENOXAPARIN NA (PORCINE) 30 MG/0.3 ML DISP.SYRIN SQ ONE (12:32)
[2018-09-03] MEDS ORDERED: ENOXAPARIN NA (PORCINE) 80 MG/0.8 ML DISP.SYRIN SQ ONE (12:32)
--- NOTE | 2018-09-03 12:33 | PN ---
Progress Note (short form) - Note Progress Note: Renal follow up for JOSE on CKD Pt seen and examined at the bedside awake and alert has no acute complaints s/p CT of the Abd/Pelvis sob stable no leg swelling making urine Vital Signs Temperature 98.8 F 09/03/18 06:50 Pulse Rate 82 09/03/18 10:00 Respiratory Rate 22 H 09/03/18 10:00 Blood Pressure 192/63 H 09/03/18 10:00 O2 Sat by Pulse Oximetry (%) 96 09/03/18 07:33 Intake & Output 08/31/18 09/01/18 09/02/18 09/03/18 23:59 23:59 23:59 23:59 Intake Total 1846 0 370 Balance 1846 0 370 Weight 93.531 kg 94.619 kg 94.982 kg 113.398 kg NAD awake and alert RRR Dec BS no LE edema CBC, BMP 09/02/18 06:31 09/02/18 06:31 Current Medications Albuterol Sulfate (Ventolin 0.083% Nebulizer Soln -) 1 amp NEB Q6H PRN PRN Reason: SHORT OF BREATH/WHEEZING Albuterol/Ipratropium (Duoneb -) 1 amp NEB RBID [facility] Last Admin: 09/03/18 07:37 Dose: 1 amp Ascorbic Acid (Vitamin C -) 1,000 mg PO DAILY [facility] Last Admin: 09/03/18 11:11 Dose: 1,000 mg Budesonide/Formoterol Fumarate (Symbicort 160/4.5mcg -) 2 puff IH BID [facility] Last Admin: 09/03/18 11:13 Dose: 2 puff Diltiazem HCl (Cardizem Cd -) 120 mg PO DAILY [facility] Last Admin: 09/03/18 11:09 Dose: 120 mg Enoxaparin Sodium 30 mg/ (Enoxaparin Sodium 80 mg) 110 mg SQ DAILY [facility] Ferrous Sulfate (Feosol -) 325 mg PO BIDWM [facility] Last Admin: 09/03/18 11:08 Dose: 325 mg Folic Acid (Folic Acid -) 1 mg PO DAILY [facility] Last Admin: 09/03/18 11:10 Dose: 1 mg Hydralazine HCl (Apresoline -) 100 mg PO TID [facility] Last Admin: 09/03/18 05:25 Dose: Not Given Insulin Aspart (Novolog Vial Sliding Scale -) 1 vial SQ ACHS [facility]; Protocol Last Admin: 09/03/18 12:30 Dose: Not Given Insulin Detemir (Levemir Vial) 24 units SQ HS [facility] Last Admin: 09/02/18 23:16 Dose: 24 units Pantoprazole Sodium (Protonix -) 40 mg PO DAILY [facility] Last Admin: 09/03/18 11:10 Dose: 40 mg Prednisone (Deltasone -) 30 mg PO DAILY [facility] Last Admin: 09/03/18 11:10 Dose: 30 mg Sodium Bicarbonate (Sodium Bicarbonate -) 650 mg PO BID [facility] Last Admin: 09/03/18 11:10 Dose: 650 mg Warfarin Sodium (Coumadin -) 10 mg PO DAILY@1800 [facility] Last Admin: 09/02/18 17:35 Dose: 10 mg 77 year old woman with history of CKD stage 4/5 (baseline Cr 3.5), Hypertension, COPD, Hx of DVT presented with sob and elevated Cr. #JOSE on CKD due to intravascular volume depletion vs AIN #COPD exacerbation #Hypertension Renal function improving as of yesterday BUN improving with steroid taper no overt uremic symptoms no acute need for dialysis would maintain off diuretics for now CT scan results noted, will need urology follow up as an outpatient for assessment of renal lesion high BUN multifactorial from renal insufficiency and steroids trend renal function and electrolytes steroid taper as per pulmonary Tylor To DO
--- NOTE | 2018-09-03 15:16 | DS ---
Physical Exam: SUBJECTIVE: Patient seen and examined. No acute events overnight. Pt used bipap machine overnight. She reports she slept well and denies SOB or chest pain. OBJECTIVE: Vital Signs Period Temp Pulse Resp BP Sys/Renee Pulse Ox Last 24 Hr 97.4 F-98.8 F 63-82 16-24 155-192/63-90 96-98 PHYSICAL EXAM GENERAL: The patient is awake, alert, and fully oriented, in no acute distress. HEAD: Normal with no signs of trauma. EYES: PERRL, extraocular movements intact, sclera anicteric, conjunctiva clear. ENT: Ears normal, nares patent, oropharynx clear without exudates, moist mucous membranes. NECK: Trachea midline, full range of motion, supple. LUNGS: Breath sounds equal, clear to auscultation bilaterally, no wheezes, no crackles, no accessory muscle use. HEART: Regular rate and rhythm, S1, S2 without murmur, rub or gallop. ABDOMEN: Soft, nontender, nondistended, normoactive bowel sounds, no guarding, no rebound, no hepatosplenomegaly, no masses. EXTREMITIES: 2+ pulses, warm, well-perfused, no edema. NEUROLOGICAL: Cranial nerves II through XII grossly intact. Normal speech, gait not observed. PSYCH: Normal mood, normal affect. SKIN: Warm, dry, normal turgor, no rashes or lesions noted. LABS Laboratory Results - last 24 hr 09/02/18 09/02/18 09/03/18 17:12 23:13 05:34 PT with INR INR POC Glucometer 262 293 186 09/03/18 09/03/18 07:50 12:01 PT with INR 16.60 H INR 1.40 H POC Glucometer 117 HOSPITAL COURSE: Date of Admission:08/22/18 Patient is a 77 y/o F who was admitted for COPD exacerbation likely due to her cardio-pulmonary conditions. She was treated with Solumedrol for 5 days and began a Prednisone taper, which she will complete upon discharge. She received a sleep apnea test which determined that CPAP machine is ineffective. Per pulm, she was started with BIPAP machine nightly and will be discharged with BIPAP. Pt has stage 5 CKD with elevated creatinine (baseline 3.6). Nephrology was consulted and she received US abd and CT abd which revealed a hypoechoic lesion in the left kidney. Recommended MRI as outpatient for further evaluation. Pt has clinically improved since admission. Patient's vitals are stable, her breathing has improved, and she is clinically stable to be discharged. CXR: No acute pathology CT chest: Mild emphysematous changes without evidence of local infiltrate Renal US: Increased renal cortical echogenicity suggestive of chronic medical renal disease. Left renal pole cortical hypoechogenicity CT abd: No discrete renal lesion identified on noncontrast examination Date of Discharge: 09/03/18 Minutes to complete discharge: 45 Discharge Summary Reason For Visit: COPD Current Active Problems COPD exacerbation (Acute) Afib (Chronic) CKD (chronic kidney disease) (Chronic) COPD (chronic obstructive pulmonary disease) (Chronic) Diastolic CHF (Chronic) Obstructive sleep apnea (Chronic) Condition: Improved - Instructions Diet, Activity, Other Instructions: You were admitted to the hospital for a worsening of your COPD. We treated your COPD with steroids, BIPAP machine, and nasal oxygen and your symptoms improved. While you were here, we tested you for sleep apnea. It was determined that you will benefit from sleeping with a BIPAP machine at home. We will discharge you with a BIPAP machine that you should use each night. You received steroid medications (Prednisone) for your COPD. You complete treatment please take: - 30mg (3 pills) Prednisone once per day for 3 days 3x10= 30 - Then, 20mg ( 2 pills) Prednisone once per day for 3 days 3t09=48 - Then, 10mg ( 1 pill) Prednisone once per day for 3 days 1x10= 10 While you were here we stopped your Lasix medication as per alodize machine helper. Please do not take this medication, if you feel that you are starting to have more fluid make an appointment with your alodize machine helper and discuss it with him. While you were here, you also received imaging of your kidneys. You should follow up with your alodize machine helper, Dr. To, in one week to discuss the results. You should also follow up with your primary care provider on Thursday, September 06 to monitor your PT/INR (your blood labs) and to review and check your warfarin medication. Please continue your Warfarin 7.5 mg by mouth every day. You should resume all other home medications as prescribed. You should return to the Emergency Department if you have difficulty breathing, chest pain, fevers, nausea, vomiting or worsening of any symptoms. Referrals: Az Vallejo MD [Staff Physician] - 1 Week Myesha Khan MD [Primary Care Provider] - 09/06/18 Tylor To MD [Staff Physician] - 1 Week Disposition: HOME - Home Medications Comprehensive Discharge Medication List: Ambulatory Orders hydrALAZINE HCL [Apresoline -] 100 mg PO BID 01/28/17 Folic Acid 1 mg PO DAILY 12/09/17 Sodium Bicarbonate - 650 mg PO BID #40 tablet 12/11/17 Insulin (Levemir) [Levemir Vial] 20 units SQ HS 12/14/17 Warfarin Sodium [Coumadin] 7.5 mg PO HS 03/09/18 Diltiazem Cd [Cardizem Cd -] 120 mg PO DAILY 28 Days #28 cap.cd.24h 03/11/18 predniSONE [Deltasone -] See Taper PO ASDIR #18 tab 09/03/18 This patient is new to me today: No Emergency Visit: No Critical Care patient: No - Discharge Referral Referred to [facility] No
[2018-09-03] MEDS: WARFARIN NA 10 MG TABLET (FP) PO SCH (17:17)
--- NOTE | 2018-09-03 18:26 | PN ---
Teaching Attending Note Name of Resident: Herminia Russell ATTENDING PHYSICIAN STATEMENT I saw and evaluated the patient. I reviewed the resident's note and discussed the case with the resident. I agree with the resident's findings and plan as documented. SUBJECTIVE: Patient is felling better with no acute distress. no shortness of breath, no nausea or vomiting. OBJECTIVE: Vital Signs Temperature 97.9 F 09/03/18 14:00 Pulse Rate 69 09/03/18 14:00 Respiratory Rate 20 09/03/18 14:00 Blood Pressure 154/63 09/03/18 14:00 O2 Sat by Pulse Oximetry (%) 96 09/03/18 16:31 GENERAL: The patient is awake, alert, and fully oriented, in no acute distress. HEAD: Normal with no signs of trauma. ENT: Moist mucous membranes. NECK: Normal range of motion and supple. LUNGS: decreased air entery BL , no wheezing , No accessory muscle use noted. HEART: Regular rate and rhythm, S1, S2 without murmur, rub or gallop. ABDOMEN: Soft, NT,ND, normoactive bowel sounds, no guarding, no rebound, no hepatosplenomegaly, no masses. EXTREMITIES: 2+ pulses, no edema. SKIN: Warm, dry, no rashes or lesions noted CBCD WBC 10.9 K/mm3 (4.0-10.0) H 09/02/18 06:31 RBC 3.40 M/mm3 (3.60-5.2) L 09/02/18 06:31 Hgb 10.9 GM/dL (10.7-15.3) 09/02/18 06:31 Hct 32.5 % (32.4-45.2) 09/02/18 06:31 MCV 95.8 fl (80-96) 09/02/18 06:31 MCHC 33.5 g/dl (32.0-36.0) 09/02/18 06:31 RDW 15.0 % (11.6-15.6) 09/02/18 06:31 Plt Count 192 K/MM3 (134-434) 09/02/18 06:31 MPV 9.8 fl (7.5-11.1) 09/02/18 06:31 CMP Sodium 138 mmol/L (136-145) 09/02/18 06:31 Potassium 4.8 mmol/L (3.5-5.1) 09/02/18 06:31 Chloride 105 mmol/L (98-107) 09/02/18 06:31 Carbon Dioxide 24 mmol/L (21-32) 09/02/18 06:31 Anion Gap 10 MMOL/L (8-16) 09/02/18 06:31 BUN 97.7 mg/dL (7-18) H 09/02/18 06:31 Creatinine 4.1 mg/dL (0.55-1.3) H 09/02/18 06:31 Random Glucose 84 mg/dL (74-106) 09/02/18 06:31 Calcium 8.3 mg/dL (8.5-10.1) L 09/02/18 06:31 Total Bilirubin 0.6 mg/dL (0.2-1) 09/02/18 06:31 AST 11 U/L (15-37) L 09/02/18 06:31 ALT 20 U/L (13-61) 09/02/18 06:31 Alkaline Phosphatase 37 U/L (45-117) L 09/02/18 06:31 Total Protein 5.4 g/dl (6.4-8.2) L 09/02/18 06:31 Albumin 2.8 g/dl (3.4-5.0) L 09/02/18 06:31 CARDIAC ENZYMES Creatine Kinase 113 U/L (26-192) 08/22/18 16:00 Troponin I 0.02 ng/ml (0.00-0.05) 08/22/18 16:00 Current Medications Generic Name Dose Route Start Last Admin Trade Name Jacquelyn PRN Reason Stop Dose Admin Albuterol Sulfate 1 amp 09/02/18 20:48 Ventolin 0.083% Nebulizer Soln - NEB Q6H PRN SHORT OF BREATH/WHEEZING Albuterol/Ipratropium 1 amp 09/02/18 21:00 09/03/18 07:37 Duoneb - NEB 1 amp RBID [facility] Administration Ascorbic Acid 1,000 mg 08/23/18 10:00 09/03/18 11:11 Vitamin C - PO 1,000 mg DAILY [facility] Administration Budesonide/Formoterol Fumarate 2 puff 08/23/18 10:00 09/03/18 11:13 Symbicort 160/4.5mcg - IH 2 puff BID [facility] Administration Diltiazem HCl 120 mg 08/23/18 10:00 09/03/18 11:09 Cardizem Cd - PO 120 mg DAILY [facility] Administration Enoxaparin Sodium 30 mg/ 110 mg 09/03/18 11:30 09/03/18 12:37 Enoxaparin Sodium 80 mg SQ 110 mg DAILY [facility] Administration Ferrous Sulfate 325 mg 08/22/18 22:00 09/03/18 17:17 Feosol - PO 325 mg BIDWM [facility] Administration Folic Acid 1 mg 08/23/18 10:00 09/03/18 11:10 Folic Acid - PO 1 mg DAILY [facility] Administration Hydralazine HCl 100 mg 08/24/18 14:00 09/03/18 14:44 Apresoline - PO 100 mg TID [facility] Administration Insulin Aspart 1 vial 08/25/18 18:53 09/03/18 17:23 Novolog Vial Sliding Scale - SQ 10 units ACHS [facility] Administration Protocol Insulin Detemir 24 units 08/25/18 18:54 09/02/18 23:16 Levemir Vial SQ 24 units HS [facility] Administration Pantoprazole Sodium 40 mg 08/23/18 10:00 09/03/18 11:10 Protonix - PO 40 mg DAILY [facility] Administration Prednisone 30 mg 09/01/18 10:00 09/03/18 11:10 Deltasone - PO 30 mg DAILY [facility] Administration Sodium Bicarbonate 650 mg 08/22/18 22:00 09/03/18 11:10 Sodium Bicarbonate - PO 650 mg BID [facility] Administration Warfarin Sodium 10 mg 09/02/18 18:00 09/03/18 17:17 Coumadin - PO 10 mg DAILY@1800 [facility] Administration Home Medications Medication Instructions Recorded RX: Folic Acid 1 mg PO DAILY 12/09/17 RX: Sodium Bicarbonate - 650 mg PO BID #40 tablet 12/11/17 RX: Warfarin Sodium [Coumadin] 7.5 mg PO HS 03/09/18 RX: Diltiazem Cd [Cardizem Cd -] 120 mg PO DAILY 28 Days #28 03/11/18 cap.cd.24h RX: Albuterol 0.083% Nebulizer Norma 1 amp NEB Q6H PRN #25 amp 09/03/18 [Ventolin 0.083% Nebulizer Soln -] RX: Albuterol 2.5/Ipratropium 0.5 1 amp NEB RBID PRN #25 amp 09/03/18 [Duoneb -] RX: Budesonide/Formeterol Fumarate 2 puff IH BID #25 inhaler 09/03/18 [SYMBICORT 160/4.5mcg -] RX: Insulin (Levemir) [Levemir 24 units SQ HS units 09/03/18 Vial] RX: hydrALAZINE HCL [Apresoline -] 100 mg PO TID #90 tablet 09/03/18 RX: predniSONE [Deltasone -] See Taper PO ASDIR #18 tab 09/03/18 ASSESSMENT AND PLAN: Patient is a 77yo female with CAD, s/p PA, AFib , HTN, diastolic CHF, pulm HTN, TREVON, DM , LLE DVT, CKD 5, GERD presented with SOB and was found to have exacerbation of COPD. # Acute COPD exacerbation:improving on prednisone with tapered dose, cont Nebs and inhalers, social work is working on getting BIPAP for use at home , waiting for approval. # H/o CKD 5: s/p IVF ,cont to monitor off IVF and off lasix. ordered NON contrast CT will follow the result. L renal cyst vs hypoechoic lesion cannot exclude renal mass, will need to be investigated further now and as out pt with further imaging . cannot give IV contrast since creatinine is 4.0 at this time. # H/o A fib: cont cardizem , INR is nontherapeutic , will increase the dose to 10mg tonight for 7.5mg, repeat PT/INR # H/o chronic diastolic heart failure, stable , monitor off lasix # DM : Cont levemir and SSI # DVT PX: on coumadin Dispo: Need to arrange BIPAP before dc ( possibly on Thursday ). d/w SW
[2018-09-03 18:48] VITALS: BP 185/64; PULSE 78; TEMP 97.8
== END 2018-09-03 19:13 | disposition home or self-care (01) | DRG 190 ==
LOC: JER 14:07 → JERBED 17:42 → J4W 08-23 15:01 → JERBED 08-23 15:37 → J4W 08-23 15:39
PROVIDERS: ADMIT Internal Medicine; ATTEND Internal Medicine
DX: J44.1 Chronic obstructive pulmonary disease with (acute) exacerbation (principal); J96.01 Acute respiratory failure with hypoxia; I50.32 Chronic diastolic (congestive) heart failure; I13.2 Hypertensive heart and chronic kidney disease with heart failure and with stage 5 chronic kidney disease, or end stage renal disease; N18.5 Chronic kidney disease, stage 5; N17.9 Acute kidney failure, unspecified; E87.2 Acidosis; R79.1 Abnormal coagulation profile; I48.0 Paroxysmal atrial fibrillation; Z79.01 Long term (current) use of anticoagulants; Z86.718 Personal history of other venous thrombosis and embolism; E11.22 Type 2 diabetes mellitus with diabetic chronic kidney disease; Z79.4 Long term (current) use of insulin; E88.09 Other disorders of plasma-protein metabolism, not elsewhere classified; E11.65 Type 2 diabetes mellitus with hyperglycemia; E66.3 Overweight; K21.9 Gastro-esophageal reflux disease without esophagitis; N32.81 Overactive bladder; Z87.891 Personal history of nicotine dependence; I27.20 Pulmonary hypertension, unspecified; Z68.35 Body mass index [BMI] 35.0-35.9, adult; E78.5 Hyperlipidemia, unspecified; D64.9 Anemia, unspecified; F32.9 Major depressive disorder, single episode, unspecified; E11.51 Type 2 diabetes mellitus with diabetic peripheral angiopathy without gangrene; G43.909 Migraine, unspecified, not intractable, without status migrainosus; I25.10 Atherosclerotic heart disease of native coronary artery without angina pectoris; I25.2 Old myocardial infarction; G47.33 Obstructive sleep apnea (adult) (pediatric); N28.1 Cyst of kidney, acquired
CPT/HCPCS: 36415; 71045-TC-FY; 71250-TC; 72192-TC; 74150-TC; 76775-TC; 76856-TC; 80048; 80053; 81003; 82550; 82803; 82947; 82962; 83735; 83880; 84100; 84484; 85025; 85027; 85610; 93005; 93010; 93306-TC; 94640; 94660; 94761; 97116-GP; 97161-GP; 99285-25; J7030

== ENCOUNTER 2018-09-07 12:38 | Inpatient (IN) | payer OTHER ==
[2018-09-07] MEDS ORDERED: VANCOMYCIN 1,000 MG in DEXTROSE 5%-WATER - 250 ML IVPB ONE (13:12)
[2018-09-07] MEDS ORDERED: ACETAMINOPHEN 1000 MG/100 ML VIAL (NON FORMULARY) IVPB ONE (13:12)
[2018-09-07] MEDS ORDERED: PIPERACILLIN/TAZOB 2.25 GM 2.25 GM in DEXTROSE 5%-WATER - 50 ML IVPB ONE (13:14)
[2018-09-07] MEDS ORDERED: ACETAMINOPHEN INJECTION 100 ML IVPB ONE (13:15)
[2018-09-07 13:17] LABS: VENOUS PC02 35.5 mmHg (41-51); VENOUS PH 7.39 (7.31-7.41); VENOUS PO2 46.7 mmHg (30-40)
[2018-09-07 13:18] LABS: BASO % 0.2 % (0-2.0); EOS % 0.1 % (0-4.5); HEMATOCRIT 31.9 % (32.4-45.2); HEMOGLOBIN 10.7 GM/dL (10.7-15.3); LYMPH % 2.2 % (8-40); MCH 32.3 pg (25.7-33.7); MCHC 33.7 g/dl (32.0-36.0); MEAN CELL VOLUME 95.7 fl (80-96); MEAN PLT VOLUME 10.5 fl (7.5-11.1); MONO % 2.6 % (3.8-10.2); NEUT % 94.9 % (42.8-82.8); PLATELET COUNT 165 K/MM3 (134-434); RBC 3.33 M/mm3 (3.60-5.2); RDW 15.1 % (11.6-15.6); WHITE BLOOD COUNT 28.7 K/mm3 (4.0-10.0)
[2018-09-07 13:32] LABS: INR 2.14 (0.83-1.09); PROTHROMBIN TIME (PATIENT) 25.4 SEC (9.7-13.0)
[2018-09-07] MEDS ORDERED: AZITHROMYCIN IVPB 500 MG in DEXTROSE 5%-WATER - 250 ML IVPB ONE (13:35)
[2018-09-07] MEDS ORDERED: SODIUM CHLORIDE 500 ML IV STA (13:35)
--- NOTE | 2018-09-07 13:42 | PDOC ---
Documentation entered by Messi Davey SCRIBE, acting as scribe for Yuri Paniagua MD. Yuri Paniagua MD: This documentation has been prepared by the Tamica rapp Elijah, SCRIBE, under my direction and personally reviewed by me in its entirety. I confirm that the documentation accurately reflects all work, treatment, procedures, and medical decision making performed by me. Attending Attestation - Resident Resident Name: Justine Chin - ED Attending Attestation I have performed the following: I have examined & evaluated the patient, The case was reviewed & discussed with the resident, I agree w/resident's findings & plan - HPI HPI: 09/07/18 13:21 Patient is a 77 year old female with a significant past medical history of HTN, diabetes, CHF, paroxysmal afib (s/p ablation, on coumadin), CKD, LLE DVT, asthma , and COPD who presents to the ED via EMS with SOB. The patient was recently discharged x4 days ago for COPD Exacerbation. As per patients family member, the patient returned home and appeared to be normal for the first two days. On the third day the patient began to have dyspnea on exertion and a cough. Today the patient had one episode of NBNB vomiting, and after being given a nebulizer , her SOB increased prompting the visit to the ED. Patient was given 3 Nitro while in the EMS. Allergies: NKA PCP: Dr. Ho Pulmonary: Dr. Ramires Reel Hooker: Dr. Griffith - Physicial Exam PE: 09/07/18 13:22 GENERAL: The patient is awake, alert, and fully oriented, Nontoxic - in no acute distress. HEAD: Normocephalic, atraumatic. EYES: extraocular movements intact, sclera anicteric, conjunctiva clear. ENT: Normal voice, Moist mucous membranes. NECK: Normal range of motion, supple without lymphadenopathy, JVD, or masses. LUNGS: Breath sounds equal, clear to auscultation bilaterally. No wheezes, no crackles, no rales. HEART: Regular rate and rhythm, normal S1 and S2 without murmur, rub or gallop. ABDOMEN: Soft, nontender, normoactive bowel sounds. No guarding, no rebound. No masses. EXTREMITIES: Normal range of motion, no edema. No clubbing or cyanosis. No cords, erythema, or tenderness. NEUROLOGICAL: No facial asymmetry, Normal speech, normal gait. PSYCH: Normal mood, normal affect. SKIN: Warm, Dry, normal turgor, no rashes or lesions noted. - Critical Care Time Total Critical Care Time: 45 Critical Care Statement: The care of this patient involved high complexity decision making to prevent further life threatening deterioration of the patient 's condition and/or to evaluate & treat vital organ system(s) failure or risk of failure. - Medical Decision Making 09/07/18 13:33 Patient is a 77 year old female with a significant past medical history of HTN, diabetes, CHF, paroxysmal afib (s/p ablation, on coumadin), CKD, LLE DVT, asthma , and COPD who presents to the ED via EMS with SOB. Patient had an extended hospitalization for COPD, was discharged and began feeling sob this weekend, that worsened significantly today. Pt endorses mild ches pressure earlier, was given 3 nitro by EMS. Per EMS upona rrival pt was noted tachypneic with rales throughout her lung kee and sating in the 80s. pt denies any fever/chills, abd pain, n/v, diaphoresis, hemotysis. upon arrival, pt with rales b/l, respiratory rate was in 20s pt was started on bipap and resp status stabilized no accessory muscle use ddx - chf, copd, acs, acute on chronic ckd/fluid over load cxr noted for b/l patchy infiltrates - suspect pna wbc 28 pt started on HAP coverage anticipate admissionf or further management consider possible ARDS - will continue to closely monitor 09/07/18 13:40 09/07/18 17:55 Heart Score/ECG Review - ECG Impressions Comment:: 09/07/18 13:40 Twelve-lead EKG was performed and reviewed by me. There is normal sinus rhythm with a rate of [address] changes suggestive of acute ischemia
[2018-09-07] MEDS ORDERED: PIPERACILLIN/TAZOB 2.25 GM 2.25 GM/50 ML BAG IVPB ONE (13:44)
--- NOTE | 2018-09-07 13:44 | PDOC ---
History of Present Illness - General Chief Complaint: Congestive Heart Failure Stated Complaint: CHF Time Seen by Provider: 09/07/18 12:42 History Source: Patient, EMS, Family, Old Records Exam Limitations: Other (short of breath) - History of Present Illness Initial Comments: 09/07/18 13:39 77yo F with PMH of DM, COPD, Afib (s/p ablation, warfarin), CKD, HTN, CHF, LLE DVT BIBA for SOB. Patient was recently dc from hospital for CHF exacerbation. Per family, patient was doing well on discharge but for the past few days since then she has been having difficulty breathing and has been more lethargic. Pt states that she was having dry coughs. Per family she had post tussive emesis today. Denies fevers, chills, abdominal pain, chest pain, n/v/d, flank pain. She was dc home with prednisone taper and lasix discontinued. Per EMS, patient was saturating in the high 70s on RA and systolic bp in the 200s. Pt was placed on cpap and given 3 tabs of nitro. PMD: Ady Cards: Nacho Fergusonm: Ike PMH: see hpi PSH: see hpi Meds: see med rec Allergies: nkda Social: denies Past History - Past Medical History Allergies/Adverse Reactions: Allergies Allergy/AdvReac Type Severity Reaction Status Date / Time No Known Allergies Allergy Verified 09/07/18 12:50 Home Medications: Ambulatory Orders Folic Acid 1 mg PO DAILY 12/09/17 Sodium Bicarbonate - 650 mg PO BID #40 tablet 12/11/17 Warfarin Sodium [Coumadin] 7.5 mg PO HS 03/09/18 Diltiazem Cd [Cardizem Cd -] 120 mg PO DAILY 28 Days #28 cap.cd.24h 03/11/18 Albuterol 0.083% Nebulizer Norma [Ventolin 0.083% Nebulizer Soln -] 1 amp NEB Q6H PRN #25 amp 09/03/18 Albuterol 2.5/Ipratropium 0.5 [Duoneb -] 1 amp NEB RBID PRN #25 amp 09/03/18 Budesonide/Formeterol Fumarate [SYMBICORT 160/4.5mcg -] 2 puff IH BID #25 inhaler 09/03/18 Insulin (Levemir) [Levemir Vial] 24 units SQ HS units 09/03/18 hydrALAZINE HCL [Apresoline -] 100 mg PO TID #90 tablet 09/03/18 predniSONE [Deltasone -] See Taper PO ASDIR #18 tab 09/03/18 Anemia: Yes Asthma: Yes Cancer: No Cardiac Disorders: Yes (AF s/p ablation (coumadin), AK) CVA: No COPD: Yes CHF: Yes DVT: No Dementia: No Diabetes: Yes (IDDM) Dialysis: No (ckd) GI Disorders: Yes (GERD) Disorders: Yes (frequency) HTN: Yes Hypercholesterolemia: Yes Liver Disease: No Psychiatric Problems: Yes (DEPRESSION) Seizures: No Thyroid Disease: No - Surgical History Abdominal Surgery: Yes (TUBAL LIG.) Appendectomy: No Cardiac Surgery: Yes (ablation) Cholecystectomy: No Lung Surgery: No Neurologic Surgery: No Orthopedic Surgery: Yes (hammer toes,trigger finger) - Family Disease History Family Disease History: Diabetes: Grandparents, CA: Mother (htn) - Immunization History Immunization Up to Date: Yes - Suicide/Smoking/Psychosocial Hx Smoking Status: Yes Smoking History: Former smoker Have you smoked in the past 12 months: No Number of Cigarettes Smoked Daily: 1 If you are a former smoker, when did you quit?: 1 year ago Information on smoking cessation initiated: No 'Breaking Loose' booklet given: 12/10/17 Hx Alcohol Use: No Drug/Substance Use Hx: No Substance Use Type: None Hx Substance Use Treatment: No Review of Systems - Review of Systems Constitutional: No: Chills, Diaphoresis, Fever HEENTM: No: Symptoms Reported Respiratory: Yes: Cough, Shortness of Breath Cardiac (ROS): No: Chest Pain, Lightheadedness, Palpitations, Syncope ABD/GI: No: Symptoms Reported : No: Symptoms Reported Musculoskeletal: No: Symptoms Reported Integumentary: No: Symptoms Reported Neurological: No: Symptoms reported *Physical Exam - Vital Signs Last Vital Signs Temp Pulse Resp BP Pulse Ox 97 F L 107 H 32 H 171/62 H 97 09/07/18 12:40 09/07/18 12:40 09/07/18 12:40 09/07/18 12:40 09/07/18 13:11 - Physical Exam General Appearance: Yes: Appropriately Dressed, Moderate Distress, Obese HEENT: positive: EOMI, JEREMY Neck: positive: Trachea midline, Supple Respiratory/Chest: positive: Respiratory Distress, Crackles, Rales, Rhonchi. negative: Lungs Clear, Normal Breath Sounds Cardiovascular: positive: S1, S2, Tachycardia. negative: Edema, JVD, Murmur Vascular Pulses: Dorsalis-Pedis (R): 2+, Doralis-Pedis (L): 2+ Gastrointestinal/Abdominal: positive: Normal Bowel Sounds, Soft. 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2 - RADIOLOGY Radiology Studies Ordered: Category Date Time Status CHEST X-RAY PORTABLE* [RAD] Stat Radiology 09/07/18 12:43 Completed Medical Decision Making - Medical Decision Making 09/07/18 13:45 77yo F with PMH of DM, COPD, Afib (s/p ablation, warfarin), CKD, HTN, CHF, LLE DVT BIBA for SOB. Vitals: saturating well on cpap, tachycardic, tachypneic. rectal temp 100.4 PE: diffuse rales and rhonchi, 1+ pitting edema Ddx includes but not limited to pna, chf, copd exacerbation, pulmonary edema, pe , acs, effusion, electrolyte abnormality, metabolic abnormality, mass, malignancy -Bipap -labs, cultures, cardiac profile, bnp, lact -cxr, ekg Recent echo (08/23/18) EF 60-65%. cxr significant for congestion and infiltrate in RUL. likely hospital acquired pna due to recent hospital stay wbc 29 (pt on steroids however in light of infiltrate and fever likely due to infection) h/o ckd with cr in 4s. will start pt on renally dosed zosyn and vanc. will add azithromycin for HCAP. 500mL fluids 09/07/18 23:11 pt may be having ARDS. Will admit to ICU. *DC/Admit/Observation/Transfer Diagnosis at time of Disposition: PNA (pneumonia) Qualifiers: Pneumonia type: due to unspecified organism Laterality: right Lung location: upper lobe of lung Qualified Code(s): J18.1 - Lobar pneumonia, unspecified organism - Discharge Dispostion Condition at time of disposition: Good Decision to Admit order: Yes - Referrals - Patient Instructions - Post Discharge Activity
[2018-09-07] MEDS ORDERED: AZITHROMYCIN IVPB 500 MG/250 ML BAG IVPB ONE (14:16)
[2018-09-07 15:32] LABS: ANISOCYTOSIS 0; MACROCYTOSIS 0; PLATELET ESTIMATE NORMAL
[2018-09-07 15:53] LABS: ALBUMIN 2.5 g/dl (3.4-5.0); BILIRUBIN,TOTAL 0.5 mg/dL (0.2-1); BLOOD UREA NITROGEN 63.4 mg/dL (7-18); CALCIUM 7.8 mg/dL (8.5-10.1); CREATININE 3.3 mg/dL (0.55-1.3); PHOSPHOROUS 2.9 mg/dL (2.5-4.9); POTASSIUM 4.6 mmol/L (3.5-5.1); TOT PROT 5.4 g/dl (6.4-8.2)
[2018-09-07] MEDS ORDERED: VANCOMYCIN 1 GRAM (PRE-DOCKED) 1,000 MG/250 ML BAG IVPB ONE (16:13)
--- NOTE | 2018-09-07 17:59 | HP ---
CHIEF COMPLAINT: Shortness of breath PCP: Dr. Garsia Pulmonary: Dr. Ramires Director Of Ancillary Services: Dr. Griffith HISTORY OF PRESENT ILLNESS: Pt. is a 77 y.o. F w/ PMHx. of HTN, NIDDM, Afib(s/p ablation on Coumadin), LLE DVT, CHFpEF, OK( s/p catherization), CKD Stage 4, GERD, and over active bladder presents with SOB. The pt was recently discharged x4 days ago for COPD exacerbation with BIPAP machine but it was never delivered. Per patients family member, the patient returned home and appeared to be normal for the first 2 days. On the third day, pt began to have cough and JOHNSON. This morning, the patient had one episode of NBNB vomiting. Her SOB worsened, despite being given a nebulizer. Patient was given 3 Nitro while in the EMS before arrival. Pt denies any fevers, chest pain, hemoptysis, abd pain, diaphoresis. Per EMS, pt was tachypneic and satting in 80s upon arrival. Started on BIPAP and respiratory status stabilized. ER course was notable for: (1) CXR: BL patchy infiltrates (2) WBC: 28 (on steroid taper), one reported fever of 100.4 (3) Tachypneic and satting 80 upon arrival, pt Recent Travel: No PAST MEDICAL HISTORY: As above PAST SURGICAL HISTORY: Colonoscopy (a few polyps removed a couple years ago), Hysterectomy(fibroids), Tubal ligation, Upper endoscopy Social History: Smoking: Quit 1 year ago, smoked from [age] (1PPD) Alcohol: Occasional glass of wine Drugs: Denies Family History: Father-DM, Mother-kidney disease, Sister-Lung CA Allergies No Known Allergies Allergy (Verified 09/07/18 12:50) HOME MEDICATIONS: Home Medications Medication Instructions Recorded Folic Acid 1 mg PO DAILY 12/09/17 Sodium Bicarbonate - 650 mg PO BID #40 tablet 12/11/17 Warfarin Sodium [Coumadin] 7.5 mg PO HS 03/09/18 Diltiazem Cd [Cardizem Cd -] 120 mg PO DAILY 28 Days #28 03/11/18 cap.cd.24h Albuterol 0.083% Nebulizer Norma 1 amp NEB Q6H PRN #25 amp 09/03/18 [Ventolin 0.083% Nebulizer Soln -] Albuterol 2.5/Ipratropium 0.5 1 amp NEB RBID PRN #25 amp 09/03/18 [Duoneb -] Budesonide/Formeterol Fumarate 2 puff IH BID #25 inhaler 09/03/18 [SYMBICORT 160/4.5mcg -] Insulin (Levemir) [Levemir Vial] 24 units SQ HS units 09/03/18 hydrALAZINE HCL [Apresoline -] 100 mg PO TID #90 tablet 09/03/18 predniSONE [Deltasone -] See Taper PO ASDIR #18 tab 09/03/18 REVIEW OF SYSTEMS CONSTITUTIONAL: one reported fever in ED (100.4), malaise Absent: chills, diaphoresis, generalized weakness, malaise, loss of appetite , weight change HEENT: Absent: rhinorrhea, nasal congestion, throat pain, throat swelling, difficulty swallowing, mouth swelling, ear pain, eye pain, visual changes CARDIOVASCULAR: Absent: chest pain, syncope, palpitations, irregular heart rate, lightheadedness, peripheral edema RESPIRATORY: cough, shortness of breath, JOHNSON Absent: cough, shortness of breath, dyspnea with exertion, orthopnea, wheezing, stridor, hemoptysis GASTROINTESTINAL: Absent: abdominal pain, abdominal distension, nausea, vomiting, diarrhea, constipation, melena, hematochezia GENITOURINARY: Absent: dysuria, frequency, urgency, hesitancy, hematuria, flank pain, genital pain MUSCULOSKELETAL: Absent: myalgia, arthralgia, joint swelling, back pain, neck pain SKIN: Absent: rash, itching, pallor HEMATOLOGIC/IMMUNOLOGIC: Absent: easy bleeding, easy bruising, lymphadenopathy, frequent infections ENDOCRINE: Absent: unexplained weight gain, unexplained weight loss, heat intolerance, cold intolerance NEUROLOGIC: Absent: headache, focal weakness or paresthesias, dizziness, unsteady gait, seizure, mental status changes, bladder or bowel incontinence PSYCHIATRIC: Absent: anxiety, depression, suicidal or homicidal ideation, hallucinations. PHYSICAL EXAMINATION Vital Signs - 24 hr 09/07/18 09/07/18 09/07/18 12:40 12:45 12:46 Temperature 97 F L 100.4 F H Pulse Rate 107 H Pulse Rate [ Right Radial] Respiratory 32 H Rate Blood Pressure 171/62 H Blood Pressure [Right Arm] O2 Sat by Pulse 96 99 Oximetry (%) 09/07/18 09/07/18 09/07/18 13:11 13:25 14:31 Temperature Pulse Rate Pulse Rate [ 95 H 86 Right Radial] Respiratory 28 H 25 H Rate Blood Pressure Blood Pressure 183/61 H 167/60 [Right Arm] O2 Sat by Pulse 97 98 100 Oximetry (%) 09/07/18 16:23 Temperature Pulse Rate Pulse Rate [ 83 Right Radial] Respiratory 26 H Rate Blood Pressure Blood Pressure 139/66 [Right Arm] O2 Sat by Pulse Oximetry (%) GENERAL: Awake, alert, and fully oriented, in no acute distress. HEAD: Normal with no signs of trauma. EYES: Pupils equal, round and reactive to light, extraocular movements intact, sclera anicteric, conjunctiva clear. No lid lag. EARS, NOSE, THROAT: Ears normal, nares patent, oropharynx clear without exudates. Moist mucous membranes. NECK: Normal range of motion, supple without lymphadenopathy, JVD, or masses. LUNGS: Diffuse rales and ronchi BL. No accessory muscle use. HEART: Regular rate and rhythm, normal S1 and S2 without murmur, rub or gallop. ABDOMEN: Soft, nontender, not distended, normoactive bowel sounds, no guarding, no rebound, no masses. No hepatomegaly or splenomegaly. MUSCULOSKELETAL: Normal range of motion at all joints. No bony deformities or tenderness. No CVA tenderness. UPPER EXTREMITIES: 2+ pulses, warm, well-perfused. No cyanosis. No clubbing. No peripheral edema. LOWER EXTREMITIES: 2+ pulses, warm, well-perfused. No calf tenderness. 1+ pitting edema. NEUROLOGICAL: Normal speech. Normal gait. PSYCHIATRIC: Cooperative. Good eye contact. Appropriate mood and affect. SKIN: Warm, dry, normal turgor, no rashes or lesions noted, normal capillary refill. Laboratory Results - last 24 hr CBC, BMP 09/07/18 12:51 09/07/18 14:48 ASSESSMENT/PLAN: Pt. is a 77 y.o. F w/ PMHx. of HTN, NIDDM, Afib(s/p ablation on Coumadin), LLE DVT, CHFpEF, OK( s/p catherization), CKD Stage 4, GERD, and over active bladder presents #Acute hypoxic respiratory failure 2/2 COPD exacerbation, possible aspiration PNA CXR: congestive changes with BL upper lobe infiltrates BIPAP settin, rate: 14, FiO2: 100% Continue duonebs prn Vanc, Zosyn, Azithromycin was empirically given in ED, cont Zosyn 2.25 Q8H, ID consulted Pulm consulted Monitor ABG #CKD Stage 5 Cr: 3.3 (baseline 3.6); BUN: 63.4; eGFR: 12.64 HgB: 10.7 Nephro consulted #Afib EKG: NSR, Q waves in V1, QTc: 450 Diltiazem 120mg Daily, Coumadin 7.5mg INR: 2.14, continue to monitor #Pulmonary HTN Pulm. Art Pressure 27mm Hg on Echo in November 2018---> 33mmHg on Chest CT in March #CHFpEF BNP: 5214.1 Echo (08/23/18) EF 60-65%. #FEN Not on any standing fluids Routine BMP monitoring NPO #DVT Ppx. Coumadin 7.5mg #Dispo ICU for closer monitoring Pt.'s daughter left her number ([phone] OR [phone]) for updates Visit type - Emergency Visit Emergency Visit: Yes ED Registration Date: 09/07/18 Care time: The patient presented to the Emergency Department on the above date and was hospitalized for further evaluation of their emergent condition. - New Patient This patient is new to me today: Yes Date on this admission: 09/07/18 - Critical Care Critical Care patient: Yes Total Critical Care Time (in minutes): 35 Critical Care Statement: The care of this patient involved high complexity decision making to prevent further life threatening deterioration of the patient 's condition and/or to evaluate & treat vital organ system(s) failure or risk of failure. ATTENDING PHYSICIAN STATEMENT I saw and evaluated the patient. I reviewed the resident's note and discussed the case with the resident. I agree with the resident's findings and plan as documented. SUBJECTIVE: OBJECTIVE: ASSESSMENT AND PLAN:
[2018-09-07] MEDS ORDERED: PIPERACILLIN/TAZOBACTAM 2.25 GM VIAL IVPB ONE (18:44)
[2018-09-07] MEDS ORDERED: DEXTROSE 5%-WATER - 50 ML IVPB ONE (18:44)
[2018-09-07] MEDS: PIPERACILLIN/TAZOB 2.25 GM 2.25 GM in DEXTROSE 5%-WATER - 50 ML IVPB SCH (18:50)
[2018-09-07] MEDS ORDERED: ALBUTEROL SO4 0.083% IH SOL 2.5 MG/3 ML VIAL.NEB. NEB PRN ×2 (19:00→21:00)
[2018-09-07] MEDS ORDERED: ALBUTEROL SO4 2.5/IPRATROPIUM 0.5 INH SOL 3 ML VIAL.NEB. NEB PRN (19:00)
--- NOTE | 2018-09-07 19:00 | PN ---
Teaching Attending Note Name of Resident: Herminia Russell ATTENDING PHYSICIAN STATEMENT I saw and evaluated the patient. I reviewed the resident's note and discussed the case with the resident. I agree with the resident's findings and plan as documented. SUBJECTIVE: Pt. is a 77yo female with PMHx. of HTN, NIDDM, Afib(s/p ablation on Coumadin), LLE DVT, diastolic chf MT( s/p catherization), CKD Stage 4, GERD, who was discharged 4 days ago with Bipap machine. As per fmily member , patient dis not receive the Bipap machine at home. presented with COPD exacerbation. Patient is placed on Bipap machine. No fever or chills. OBJECTIVE: Vital Signs Temperature 98.1 F 09/07/18 18:38 Pulse Rate 80 09/07/18 18:38 Respiratory Rate 20 09/07/18 18:38 Blood Pressure 189/70 H 09/07/18 18:38 O2 Sat by Pulse Oximetry (%) 100 09/07/18 18:41 GENERAL: The patient is awake, alert, and fully oriented, in moderate distress on Bipap machine. HEAD: Normal with no signs of trauma. ENT: Moist mucous membranes. NECK: Normal range of motion and supple. LUNGS: decreased air entery BL , positive for rhonchi , positive for accessory muscle use HEART: Regular rate and rhythm, S1, S2 positive, no murmur, rub or gallop. ABDOMEN: Soft, NT,ND, normoactive bowel sounds, no guarding, no rebound, no hepatosplenomegaly, no masses. EXTREMITIES: 2+ pulses, no edema. SKIN: Warm, dry, no rashes or lesions noted CBCD WBC 28.7 K/mm3 (4.0-10.0) H 09/07/18 12:51 RBC 3.33 M/mm3 (3.60-5.2) L 09/07/18 12:51 Hgb 10.7 GM/dL (10.7-15.3) 09/07/18 12:51 Hct 31.9 % (32.4-45.2) L 09/07/18 12:51 MCV 95.7 fl (80-96) 09/07/18 12:51 MCHC 33.7 g/dl (32.0-36.0) 09/07/18 12:51 RDW 15.1 % (11.6-15.6) 09/07/18 12:51 Plt Count 165 K/MM3 (134-434) 09/07/18 12:51 MPV 10.5 fl (7.5-11.1) 09/07/18 12:51 CMP Sodium 140 mmol/L (136-145) 09/07/18 14:48 Potassium 4.6 mmol/L (3.5-5.1) 09/07/18 14:48 Chloride 109 mmol/L (98-107) H 09/07/18 14:48 Carbon Dioxide 22 mmol/L (21-32) 09/07/18 14:48 Anion Gap 9 MMOL/L (8-16) 09/07/18 14:48 BUN 63.4 mg/dL (7-18) H 09/07/18 14:48 Creatinine 3.3 mg/dL (0.55-1.3) H 09/07/18 14:48 Random Glucose 135 mg/dL (74-106) H 09/07/18 14:48 Calcium 7.8 mg/dL (8.5-10.1) L 09/07/18 14:48 Total Bilirubin 0.5 mg/dL (0.2-1) 09/07/18 14:48 AST 9 U/L (15-37) L 09/07/18 14:48 ALT 21 U/L (13-61) 09/07/18 14:48 Alkaline Phosphatase 39 U/L (45-117) L 09/07/18 14:48 Total Protein 5.4 g/dl (6.4-8.2) L 09/07/18 14:48 Albumin 2.5 g/dl (3.4-5.0) L 09/07/18 14:48 CARDIAC ENZYMES Creatine Kinase 141 U/L (26-192) 09/07/18 14:23 Troponin I 0.05 ng/ml (0.00-0.05) 09/07/18 14:23 Current Medications Generic Name Dose Route Start Last Admin Trade Name Freq PRN Reason Stop Dose Admin Chlorhexidine Gluconate 1 applic 09/07/18 22:00 Hibiclens For Decolonization - TP HS ERMA Piperacillin Sod/Tazobactam 50 mls @ 100 mls/hr 09/07/18 18:00 09/07/18 18:50 Sod 2.25 gm/ Dextrose IVPB 100 mls/hr Q8H-IV ERMA Administration Protocol Mupirocin 1 applic 09/07/18 22:00 Bactroban Ointment (For Decolonization) - NS 09/12/18 21:59 BID [facility] Home Medications Medication Instructions Recorded Folic Acid 1 mg PO DAILY 12/09/17 Sodium Bicarbonate - 650 mg PO BID #40 tablet 12/11/17 Warfarin Sodium [Coumadin] 7.5 mg PO HS 03/09/18 Diltiazem Cd [Cardizem Cd -] 120 mg PO DAILY 28 Days #28 03/11/18 cap.cd.24h Albuterol 0.083% Nebulizer Norma 1 amp NEB Q6H PRN #25 amp 09/03/18 [Ventolin 0.083% Nebulizer Soln -] Albuterol 2.5/Ipratropium 0.5 1 amp NEB RBID PRN #25 amp 09/03/18 [Duoneb -] Budesonide/Formeterol Fumarate 2 puff IH BID #25 inhaler 09/03/18 [SYMBICORT 160/4.5mcg -] Insulin (Levemir) [Levemir Vial] 24 units SQ HS units 09/03/18 hydrALAZINE HCL [Apresoline -] 100 mg PO TID #90 tablet 09/03/18 predniSONE [Deltasone -] See Taper PO ASDIR #18 tab 09/03/18 CT of abdomen and pelvis: No discrete renal lesion on noncontrast CT. MRI is recommended. CXR: Congestive changes with BL upper lobe infiltrates. ASSESSMENT AND PLAN: Patient is a 77yo female with CAD, s/p MT, AFib , HTN, diastolic CHF, pulm HTN, TREVON, DM , LLE DVT, CKD 5, GERD presented with SOB and was found to have exacerbation of COPD and BL Pneumonia reported on the cxr . # Acute COPD exacerbation: ON Bipap now, will place the patient in icu on bipap and monitor her closely. Pulmonary consult appreciated. # BL upper lobe Infiltrate: zosyn/vanco and zosyn given, for consult, notified. # L renal cyst vs hypoechoic lesion cannot exclude renal mass, will need further investigation by dr leary . since creatinine is 3.6 at this time. ordered non contrast CT, result is as above, discussed with , patient will follow with him. Recommend MRI as an outpatient. # H/o CKD 5: s/p IVF . off lasix for now till she gets revaluated. # H/o A fib: cont cardizem , INR is 2.14 today continue with 7.5mg. # H/o chronic diastolic heart failure, stable , monitor off lasix # DM : Cont levemir and SSI # DVT PX: on coumadin ICU admission
--- NOTE | 2018-09-07 19:08 | PN ---
Teaching Attending Note Name of Resident: Az Briceno ATTENDING PHYSICIAN STATEMENT I saw and evaluated the patient. I reviewed the resident's note and discussed the case with the resident. I agree with the resident's findings and plan as documented. SUBJECTIVE: Pt seen and examined in the ICU. Briefly, 77yo female with h/o HTN, DM, CKD IV, atrial fibrillation, CAD, LV Diastolic dysfunction, pulmonary HTN, GERD, recent hospitalization for COPD exacerbation who was admitted with worsening shortness of breath. Vomited the morning of admission. +cough with thick yellow sputum. No fevers, chills. No sick contacts or recent travel. Placed on BiPAP for respiratory distress, transferred to ICU for closer monitoring. OBJECTIVE: Vital Signs Period Temp Pulse Resp BP Sys/Renee Pulse Ox Last 24 Hr 97 F-100.4 F 66-107 13-32 112-210/60-79 96-100 Intake & Output 09/05/18 09/06/18 09/07/18 09/08/18 23:59 23:59 23:59 23:59 Intake Total 50 Output Total 600 Balance -550 Weight 90.718 kg 101 kg Gen: tachypneic on BiPAP Heart: RRR Lung: scattered rhonchi, wheezes Abd: soft, nontender Ext: + edema Laboratory Tests 09/07/18 09/07/18 09/07/18 12:51 12:51 12:51 WBC 28.7 H Hgb 10.7 Hct 31.9 L Plt Count 165 INR 2.14 H VBG pH 7.39 POC VBG pCO2 35.5 L POC VBG pO2 46.7 H Sodium Potassium Chloride Carbon Dioxide Anion Gap BUN Creatinine Random Glucose Lactic Acid B-Natriuretic Peptide 09/07/18 09/07/18 09/07/18 13:21 14:40 14:48 WBC Hgb Hct Plt Count INR VBG pH POC VBG pCO2 POC VBG pO2 Sodium 140 Potassium 4.6 Chloride 109 H Carbon Dioxide 22 Anion Gap 9 BUN 63.4 H Creatinine 3.3 H Random Glucose 135 H Lactic Acid 0.9 B-Natriuretic Peptide 5214.1 H ASSESSMENT AND PLAN: Acute Hypoxic Respiratory Failure Pneumonia Acute on Chronic Diastolic Heart Failure Atrial Fibrillation Pulmonary HTN CKD IV CAD HTN DM - IV antibiotics - f/u cultures - IV medrol - inhaled bronchodilators standing and PRN - O2 to keep Spo2 >90% - BiPAP to assist in work of breathing - IV lasix - monitor urine output, creatinine - rate control - BP control - continue anticoagulation - ICU monitoring critical care time spent in reviewing chart, evaluating patient and formulating plan 35 min
--- NOTE | 2018-09-07 19:12 | CONSULT ---
Consultation: CONSULT SERVICE: ICU Resident HISTORY OF PRESENT ILLNESS: 77yo F with h/o HTN, T2DM, Atrial fibrillation (s/p Ablation; on Coumadin), HFpEF, CAD, CKD Stage IV, GERD, and neurogenic bladder who presents to the hospital 2/ to notable shortness of breath. Pt's daughter at bedside explains how she noticed her mother being more tachypneic and short of breath described as unable to catch her breath. Pt also notes having a productive cough with thicker white-yellow sputum that has been occurring over the past few days. Pt denies any sick contacts as far as she has noticed. She reports feeling warm, however she denies being feverish or experiencing rigors. Pt denies any headaches, blurry vision, n/v/d/c, chest pain, palpitations, abdominal pain, dysuria, polyuria, hematuria, numbness/weakness. Of note pt was recently hospitalized here for suspected COPD exacerbation with questionable CHF exacerbation. At the end of her hospital course she was discharged with a Prednisone taper and is at the 2nd day of 20mg PO Prednisone daily. In addition pt's Lasix was discharged 04/03 to dehydration noted during her hospital course. Pt has been compliant with all of her medications which is reaffirmed by the daughter. Unfortunately pt was discharged with impending NIPPV machine delivery to her house to use at night and as needed throughout the day, however the delivery never came. She has not been on any form of NIPPV since hospital discharge. REVIEW OF SYSTEMS: As per HPI PHYSICAL EXAMINATION Vital Signs 09/07/18 09/07/18 09/07/18 12:40 12:45 12:46 Temperature 97 F L 100.4 F H Pulse Rate 107 H Pulse Rate [ Right Radial] Respiratory 32 H Rate Blood Pressure 171/62 H Blood Pressure [Right Arm] O2 Sat by Pulse 96 99 Oximetry (%) 09/07/18 09/07/18 09/07/18 13:00 13:11 13:25 Temperature Pulse Rate Pulse Rate [ 95 H Right Radial] Respiratory 28 H Rate Blood Pressure Blood Pressure 183/61 H [Right Arm] O2 Sat by Pulse 100 97 98 Oximetry (%) 09/07/18 09/07/18 09/07/18 14:31 15:20 16:23 Temperature Pulse Rate Pulse Rate [ 86 83 Right Radial] Respiratory 25 H 26 H Rate Blood Pressure Blood Pressure 167/60 139/66 [Right Arm] O2 Sat by Pulse 100 100 Oximetry (%) 09/07/18 09/07/18 18:38 18:41 Temperature 98.1 F Pulse Rate 80 Pulse Rate [ Right Radial] Respiratory 20 Rate Blood Pressure 189/70 H Blood Pressure [Right Arm] O2 Sat by Pulse 100 Oximetry (%) GENERAL: NAD, awake, alert, and fully oriented HEENT: NC/AT, EOMI, NISHI, sclera anicteric, dry mucosa NECK: No JVD LUNGS: Diminshed breath sounds notable on R compared to left. No wheezes, and no crackles. No accessory muscle use. NIPPV 12/5/40%/RR12 HEART: RRR, normal S1 and S2 without murmur ABDOMEN: Soft, Nt/ND, normoactive bowel sounds, no guarding, EXTREMITIES: 2+ distal pulses, warm, well-perfused. No calf tenderness. No peripheral edema. PSYCHIATRIC: Cooperative. Good eye contact. Appropriate mood and affect. SKIN: Warm, dry, normal turgor, no rashes or lesions noted. Laboratory Results 09/07/18 09/07/18 09/07/18 12:51 12:51 12:51 WBC RBC Hgb Hct MCV MCH MCHC RDW Plt Count MPV Absolute Neuts (auto) Neutrophils % Neutrophils % (Manual) Band Neutrophils % Lymphocytes % Lymphocytes % (Manual) Monocytes % Monocytes % (Manual) Eosinophils % Eosinophils % (Manual) Basophils % Basophils % (Manual) Myelocytes % (Man) Promyelocytes % (Man) Blast Cells % (Manual) Nucleated RBC % Metamyelocytes Hypochromia Platelet Estimate Polychromasia Poikilocytosis Anisocytosis Microcytosis Macrocytosis PT with INR 25.40 H INR 2.14 H Anticoagulation Therapy VBG pH 7.39 POC VBG pCO2 35.5 L POC VBG pO2 46.7 H VBG HCO3 21.0 L VBG O2 Sat (Luis) 83.6 H VBG Base Excess -3.0 L O2 Delivery Device Oxygen Flow Rate Vent Mode Vent Rate Mechanical Rate Pressure Support Vent Sodium Cancelled Potassium Cancelled Chloride Cancelled Carbon Dioxide Cancelled Anion Gap Cancelled BUN Cancelled Creatinine Cancelled Est GFR (CKD-EPI)AfAm Cancelled Est GFR (CKD-EPI)NonAf Cancelled Random Glucose Cancelled Lactic Acid Calcium Cancelled Phosphorus Cancelled Magnesium Cancelled Total Bilirubin Cancelled AST Cancelled ALT Cancelled Alkaline Phosphatase Cancelled Creatine Kinase Troponin I B-Natriuretic Peptide Cancelled Total Protein Cancelled Albumin Cancelled 09/07/18 09/07/18 09/07/18 12:51 12:51 13:21 WBC 28.7 H RBC 3.33 L Hgb 10.7 Hct 31.9 L MCV 95.7 MCH 32.3 MCHC 33.7 RDW 15.1 Plt Count 165 MPV 10.5 Absolute Neuts (auto) 27.2 H Neutrophils % 94.9 H Neutrophils % (Manual) 91.9 H Band Neutrophils % 2.0 Lymphocytes % 2.2 L D Lymphocytes % (Manual) 3.1 L Monocytes % 2.6 L Monocytes % (Manual) 3 L Eosinophils % 0.1 Eosinophils % (Manual) 0.0 Basophils % 0.2 Basophils % (Manual) 0.0 Myelocytes % (Man) 0 Promyelocytes % (Man) 0 Blast Cells % (Manual) 0 Nucleated RBC % 0 Metamyelocytes 0 Hypochromia 0 Platelet Estimate Normal Polychromasia 0 Poikilocytosis 0 Anisocytosis 0 Microcytosis 0 Macrocytosis 0 PT with INR INR Anticoagulation Therapy VBG pH POC VBG pCO2 POC VBG pO2 VBG HCO3 VBG O2 Sat (Luis) VBG Base Excess O2 Delivery Device Oxygen Flow Rate Vent Mode Vent Rate Mechanical Rate Pressure Support Vent Sodium Potassium Chloride Carbon Dioxide Anion Gap BUN Creatinine Est GFR (CKD-EPI)AfAm Est GFR (CKD-EPI)NonAf Random Glucose Lactic Acid 0.9 Calcium Phosphorus Magnesium Total Bilirubin AST ALT Alkaline Phosphatase Creatine Kinase Cancelled Troponin I Cancelled B-Natriuretic Peptide Total Protein Albumin 09/07/18 09/07/18 09/07/18 14:23 14:40 14:48 WBC RBC Hgb Hct MCV MCH MCHC RDW Plt Count MPV Absolute Neuts (auto) Neutrophils % Neutrophils % (Manual) Band Neutrophils % Lymphocytes % Lymphocytes % (Manual) Monocytes % Monocytes % (Manual) Eosinophils % Eosinophils % (Manual) Basophils % Basophils % (Manual) Myelocytes % (Man) Promyelocytes % (Man) Blast Cells % (Manual) Nucleated RBC % Metamyelocytes Hypochromia Platelet Estimate Polychromasia Poikilocytosis Anisocytosis Microcytosis Macrocytosis PT with INR INR Anticoagulation Therapy VBG pH POC VBG pCO2 POC VBG pO2 VBG HCO3 VBG O2 Sat (Luis) VBG Base Excess O2 Delivery Device Oxygen Flow Rate Vent Mode Vent Rate Mechanical Rate Pressure Support Vent Sodium 140 Potassium 4.6 Chloride 109 H Carbon Dioxide 22 Anion Gap 9 BUN 63.4 H Creatinine 3.3 H Est GFR (CKD-EPI)AfAm 14.65 Est GFR (CKD-EPI)NonAf 12.64 Random Glucose 135 H Lactic Acid Calcium 7.8 L Phosphorus 2.9 Magnesium 2.0 Total Bilirubin 0.5 AST 9 L ALT 21 Alkaline Phosphatase 39 L Creatine Kinase 141 Troponin I 0.05 B-Natriuretic Peptide 5214.1 H Total Protein 5.4 L Albumin 2.5 L 09/07/18 18:52 WBC RBC Hgb Hct MCV MCH MCHC RDW Plt Count MPV Absolute Neuts (auto) Neutrophils % Neutrophils % (Manual) Band Neutrophils % Lymphocytes % Lymphocytes % (Manual) Monocytes % Monocytes % (Manual) Eosinophils % Eosinophils % (Manual) Basophils % Basophils % (Manual) Myelocytes % (Man) Promyelocytes % (Man) Blast Cells % (Manual) Nucleated RBC % Metamyelocytes Hypochromia Platelet Estimate Polychromasia Poikilocytosis Anisocytosis Microcytosis Macrocytosis PT with INR INR Anticoagulation Therapy No Result Required. VBG pH POC VBG pCO2 POC VBG pO2 VBG HCO3 VBG O2 Sat (Luis) VBG Base Excess O2 Delivery Device No Result Required. Oxygen Flow Rate No Result Required. Vent Mode No Result Required. Vent Rate No Result Required. Mechanical Rate No Result Required. Pressure Support Vent No Result Required. Sodium Potassium Chloride Carbon Dioxide Anion Gap BUN Creatinine Est GFR (CKD-EPI)AfAm Est GFR (CKD-EPI)NonAf Random Glucose Lactic Acid Calcium Phosphorus Magnesium Total Bilirubin AST ALT Alkaline Phosphatase Creatine Kinase Troponin I B-Natriuretic Peptide Total Protein Albumin Active Medications Generic Name Dose Route Start Last Admin Trade Name Freq PRN Reason Stop Dose Admin Albuterol Sulfate 1 amp 09/07/18 19:00 Ventolin 0.083% Nebulizer Soln - NEB Q6H PRN SHORT OF BREATH/WHEEZING Albuterol/Ipratropium 1 amp 09/07/18 19:00 Duoneb - NEB RBID PRN WHEEZING Budesonide/Formoterol Fumarate 2 puff 09/07/18 22:00 Symbicort 160/4.5mcg - IH BID [facility] Chlorhexidine Gluconate 1 applic 09/07/18 22:00 Hibiclens For Decolonization - TP HS [facility] Diltiazem HCl 120 mg 09/08/18 10:00 Cardizem Cd - PO DAILY [facility] Folic Acid 1 mg 09/08/18 10:00 Folic Acid - PO DAILY [facility] Hydralazine HCl 100 mg 09/07/18 22:00 Apresoline - PO TID [facility] Piperacillin Sod/Tazobactam 50 mls @ 100 mls/hr 09/07/18 18:00 09/07/18 18:50 Sod 2.25 gm/ Dextrose IVPB 100 mls/hr Q8H-IV [facility] Administration Protocol Insulin Aspart 1 vial 09/07/18 19:15 Novolog Vial Sliding Scale - SQ Q6H [facility] Protocol Mupirocin 1 applic 09/07/18 22:00 Bactroban Ointment (For Decolonization) - NS 09/12/18 21:59 BID [facility] Sodium Bicarbonate 650 mg 09/07/18 22:00 Sodium Bicarbonate - PO BID [facility] Warfarin Sodium 7.5 mg 09/08/18 18:00 Coumadin - PO DAILY@1800 [facility] ASSESSMENT/PLAN: Healthcare acquired Pneumonia ARDS COPD Leukocytosis with left shift and bandemia Paroxysmal Atrial Fibrillation Chronic renal insufficiency Type 2 DM Chronic HFpEF --Likely infiltrative process as HCAPna --Continue to treat with Zosyn 2.25gm (adjusted for renal insufficiency) --High suspicion for ARDS given b/l patchy infiltrates without significant effusions and elevated A-a gradient (173) compared to expected (23) --Continue NIPPV at current settings, however if pt begins to decompensate would have low threshold for intubation --Given pt on Prednisone and currently on 20mg taper will continue pulse dose Medrol 40mg IVP qdaily for 4 days --Duoneb QID scheduled/Albuterol q4h PRN --Given sepsis will --Continue pt's Coumadin 7.5mg daily and check INR for therapeutic range 2-3 --Currently pt in sinus rhythm with controlled rate --Continue hydralazine 100mg TID PO for HTN --Gave one dose Labetolol 10mg IVP due to SBP of 190/70 noted upon arrival to unit (rpt with normalization) --Monitor hemodynamics --Continue rest of pt's home medications FEN: Fluids: Will bolus as needed given sepsis Electrolyte abnormalities: Nutrition: NPO tonight while on NIPPV and can initiate diet tomorrow PPX: DVT - already therapeutic on Warfarin GI- Protonix 40mg daily given pt's prolonged use of corticosteroids Dispo: ICU monitoring given ARDS picture and high susceptibility for decompensation GOC: Discussed intubation and CPR status with daughter and patient at bedside. Currently pt remains full code, however will revisit discussion if pt begins to decline and a prolonged poor prognosis becomes more likely Case discussed with Dr. Ike Briceno, DO - IM PGY-3 Visit type - Emergency Visit Emergency Visit: Yes ED Registration Date: 09/07/18 Care time: The patient presented to the Emergency Department on the above date and was hospitalized for further evaluation of their emergent condition. - New Patient This patient is new to me today: Yes Date on this admission: 09/07/18 - Critical Care Critical Care patient: Yes Total Critical Care Time (in minutes): 40 Critical Care Statement: The care of this patient involved high complexity decision making to prevent further life threatening deterioration of the patient 's condition and/or to evaluate & treat vital organ system(s) failure or risk of failure.
[2018-09-07] MEDS ORDERED: WARFARIN NA 7.5 MG TABLET (FP) PO ONE (19:14)
[2018-09-07 19:31] LABS: ARTERIAL BLD GAS O2 SATURATION 97.1 % (95-98); ARTERIAL BLOOD GAS BASE EXCESS -3.1 meq/l (-2-2); ARTERIAL BLOOD GAS PCO2 35.1 mmHg (35-45); ARTERIAL BLOOD GAS PO2 136 mmHg (80-105); ARTERIAL BLOOD GAS pH 7.39 (7.35-7.45)
[2018-09-07] MEDS ORDERED: LABETALOL HCL 5 MG/1 ML (100MG/20 ML VIAL) IVPUSH ONE (19:47)
[2018-09-07] MEDS: INSULIN SLIDING SCALE (NOVOLOG) 1 VIAL SQ SCH (20:02)
[2018-09-07 20:45] LABS: HYALINE CASTS 9 /lpf (0-8); PH,URINE 5.5 (5.0-8.0); URINE APPEARANCE CLEAR; URINE BACTERIA 107.7 /hpf (NEGATIVE); URINE BILIRUBIN NEGATIVE (NEGATIVE); URINE COLOR YELLOW; URINE GLUCOSE (UA) TRACE (NEGATIVE); URINE KETONE NEGATIVE (NEGATIVE); URINE LEUK ESTERASE NEGATIVE (NEGATIVE); URINE NITRITE NEGATIVE (NEGATIVE); URINE PROTEIN 3+ (NEGATIVE); URINE UROBILINOGEN 0.2 mg/dL (0.2-1.0); URINE WBC 1 /hpf (0-5)
[2018-09-07] MEDS ORDERED: ALBUTEROL SO4 2.5/IPRATROPIUM 0.5 INH SOL 3 ML VIAL.NEB. NEB SCH (22:00)
[2018-09-07] MEDS: hydrALAZINE HCL 50 MG TABLET (FP) PO SCH (22:30)
[2018-09-07] MEDS: SODIUM BICARBONATE 650 MG TABLET PO SCH (22:30)
[2018-09-07] MEDS: BUDESONIDE/FORMETEROL FUMARATE 160/4.5 mcg INHALER IH SCH (22:34)
[2018-09-07] MEDS: MUPIROCIN 2% TOPICAL OINTMENT FOR DECOLONIZATION NS SCH (23:24)
[2018-09-07] MEDS: CHLORHEXIDINE GLUCONATE 4% CLEANSER FOR DECOLONIZATION TP SCH (23:26)
[2018-09-08] MEDS: INSULIN SLIDING SCALE (NOVOLOG) 1 VIAL SQ SCH ×4 (00:47→17:37)
[2018-09-08] MEDS ORDERED: DEXTROSE 5%-WATER - 50 ML IVPB ONE ×3 (01:09→17:32)
[2018-09-08] MEDS ORDERED: PIPERACILLIN/TAZOBACTAM 2.25 GM VIAL IVPB ONE ×3 (01:09→17:32)
[2018-09-08] MEDS: PIPERACILLIN/TAZOB 2.25 GM 2.25 GM in DEXTROSE 5%-WATER - 50 ML IVPB SCH ×3 (01:13→17:37)
[2018-09-08] MEDS: hydrALAZINE HCL 50 MG TABLET (FP) PO SCH ×4 (05:21→21:10)
[2018-09-08 06:44] LABS: BASO % 0.1 % (0-2.0); HEMATOCRIT 29.9 % (32.4-45.2); HEMOGLOBIN 9.5 GM/dL (10.7-15.3); LYMPH % 4.1 % (8-40); MCH 31.4 pg (25.7-33.7); MCHC 31.9 g/dl (32.0-36.0); MEAN CELL VOLUME 98.6 fl (80-96); MEAN PLT VOLUME 10.5 fl (7.5-11.1); MONO % 2.3 % (3.8-10.2); NEUT % 93.5 % (42.8-82.8); PLATELET COUNT 106 K/MM3 (134-434); RBC 3.04 M/mm3 (3.60-5.2); RDW 15.4 % (11.6-15.6)
[2018-09-08 07:02] LABS: INR 2.71 (0.83-1.09); PROTHROMBIN TIME (PATIENT) 32.3 SEC (9.7-13.0)
[2018-09-08 07:04] LABS: ACTIVATED PTT 32.5 SECONDS (25.2-36.5)
[2018-09-08 07:40] LABS: ALBUMIN 2.1 g/dl (3.4-5.0); BILIRUBIN,TOTAL 0.7 mg/dL (0.2-1); BLOOD UREA NITROGEN 62.4 mg/dL (7-18); CALCIUM 7.6 mg/dL (8.5-10.1); CREATININE 3.3 mg/dL (0.55-1.3); MAGNESIUM 2.2 mg/dL (1.8-2.4); PHOSPHOROUS 4.7 mg/dL (2.5-4.9); POTASSIUM 5.1 mmol/L (3.5-5.1); TOT PROT 4.8 g/dl (6.4-8.2)
[2018-09-08] MEDS: ALBUTEROL SO4 2.5/IPRATROPIUM 0.5 INH SOL 3 ML VIAL.NEB. NEB SCH ×4 (07:55→21:00)
--- NOTE | 2018-09-08 08:29 | EKG ---
Test Reason : Blood Pressure : / mmHG Vent. Rate : 101 BPM Atrial Rate : 101 BPM P-R Int : 130 ms QRS Dur : 078 ms QT Int : 338 ms P-R-T Axes : 065 -29 090 degrees QTc Int : 438 ms SINUS TACHYCARDIA WITH OCCASIONAL PREMATURE VENTRICULAR COMPLEXES OTHERWISE NORMAL ECG WHEN COMPARED WITH ECG OF 22-AUG-2018 15:40, PREMATURE VENTRICULAR COMPLEXES ARE NOW PRESENT VENT. RATE HAS INCREASED BY 35 BPM T WAVE AMPLITUDE HAS INCREASED IN INFERIOR LEADS T WAVE AMPLITUDE HAS INCREASED IN ANTEROLATERAL LEADS Confirmed by NICK VILLAGRAN, BART ([id number]) on 09/08/2018 8:29:14 AM Referred By: Confirmed By:BART ROMERO MD
[2018-09-08] MEDS ORDERED: FUROSEMIDE 40 MG/4 ML INJECTABLE VIAL IVPUSH ONE (08:44)
[2018-09-08] MEDS: FOLIC ACID 1 MG TABLET (FP) PO SCH (09:20)
[2018-09-08] MEDS: methylPREDNISolone NA SUCC 40 MG/1 ML VIAL IVPUSH SCH (09:21)
[2018-09-08] MEDS: SODIUM BICARBONATE 650 MG TABLET PO SCH ×2 (09:21→21:10)
[2018-09-08] MEDS ORDERED: PT OWN MED DRAWER 7, Y5N ONE (09:33)
[2018-09-08 09:41] LABS: ALLENS TEST POSITIVE; ARTERIAL BLD GAS O2 SATURATION 98.3 % (95-98); ARTERIAL BLOOD GAS BASE EXCESS -4.3 meq/l (-2-2); ARTERIAL BLOOD GAS PCO2 32.9 mmHg (35-45); ARTERIAL BLOOD GAS PO2 120 mmHg (80-105); ARTERIAL BLOOD GAS pH 7.39 (7.35-7.45)
[2018-09-08] MEDS: MUPIROCIN 2% TOPICAL OINTMENT FOR DECOLONIZATION NS SCH ×2 (09:52→21:11)
[2018-09-08] MEDS ORDERED: PANTOPRAZOLE SODIUM 40 MG VIAL IVPUSH SCH (10:00)
[2018-09-08 10:53] LABS: ANISOCYTOSIS 2+; MACROCYTOSIS 0; PLATELET ESTIMATE DECREASED; TARGET CELLS 1+
--- NOTE | 2018-09-08 12:13 | PN ---
Teaching Attending Note Name of Resident: Az Blakely ATTENDING PHYSICIAN STATEMENT I saw and evaluated the patient. I reviewed the resident's note and discussed the case with the resident. I agree with the resident's findings and plan as documented. SUBJECTIVE: Pt seen and examined in the ICU. Remains on BiPAP, short of breath. No further fevers. CXR improving with diuresis. OBJECTIVE: Vital Signs Period Temp Pulse Resp BP Sys/Renee Pulse Ox Last 24 Hr 97 F-100.4 F 66-107 13-32 112-210/60-79 96-100 Intake & Output 09/05/18 09/06/18 09/07/18 09/08/18 23:59 23:59 23:59 23:59 Intake Total 50 Output Total 600 Balance -550 Weight 90.718 kg 101 kg Gen: tachypneic on BiPAP Heart: RRR Lung: scattered rhonchi, wheezes Abd: soft, nontender Ext: less edema CBC, BMP 09/08/18 05:39 09/08/18 05:39 Active Medications Albuterol Sulfate (Ventolin 0.083% Nebulizer Soln -) 1 amp NEB Q4H PRN PRN Reason: SHORT OF BREATH/WHEEZING Albuterol/Ipratropium (Duoneb -) 1 amp NEB RQID [facility] Last Admin: 09/08/18 07:55 Dose: 1 amp Budesonide/Formoterol Fumarate (Symbicort 160/4.5mcg -) 2 puff IH BID [facility] Last Admin: 09/07/18 22:34 Dose: Not Given Chlorhexidine Gluconate (Hibiclens For Decolonization -) 1 applic TP HS [facility] Last Admin: 09/07/18 23:26 Dose: 1 applic Diltiazem HCl (Cardizem Cd -) 120 mg PO DAILY [facility] Last Admin: 09/08/18 10:08 Dose: 120 mg Folic Acid (Folic Acid -) 1 mg PO DAILY [facility] Last Admin: 09/08/18 09:20 Dose: 1 mg Hydralazine HCl (Apresoline -) 100 mg PO TID [facility] Last Admin: 09/08/18 07:35 Dose: 100 mg Piperacillin Sod/Tazobactam (Sod 2.25 gm/ Dextrose) 50 mls @ 100 mls/hr IVPB Q8H-IV [facility]; Protocol Last Admin: 09/08/18 09:20 Dose: 100 mls/hr Insulin Aspart (Novolog Vial Sliding Scale -) 1 vial SQ Q6H [facility]; Protocol Last Admin: 09/08/18 07:30 Dose: Not Given Insulin Detemir (Levemir Vial) 24 units SQ HS [facility] Methylprednisolone Sodium Succinate (Solu-Medrol -) 40 mg IVPUSH DAILY [facility] Stop: 09/12/18 09:59 Last Admin: 09/08/18 09:21 Dose: 40 mg Mupirocin (Bactroban Ointment (For Decolonization) -) 1 applic NS BID [facility] Stop: 09/12/18 21:59 Last Admin: 09/08/18 09:52 Dose: 1 applic Sodium Bicarbonate (Sodium Bicarbonate -) 650 mg PO BID [facility] Last Admin: 09/08/18 09:21 Dose: 650 mg Warfarin Sodium (Coumadin -) 6 mg PO DAILY@1800 [facility] ASSESSMENT AND PLAN: Acute Hypoxic Respiratory Failure Pneumonia Acute on Chronic Diastolic Heart Failure Atrial Fibrillation Pulmonary HTN CKD IV CAD HTN DM - continue antibiotics - f/u cultures - IV medrol - inhaled bronchodilators standing and PRN - O2 to keep Spo2 >90% - BiPAP to assist in work of breathing - continue lasix - monitor urine output, creatinine - rate control - BP control - continue anticoagulation - continue ICU monitoring critical care time spent in reviewing chart, evaluating patient and formulating plan 35 min
--- NOTE | 2018-09-08 12:27 | CON.ID ---
Consult Consult Specialty:: infectious diseases Referred by:: Reason for Consultation:: pneumonia,resp failure - History of Present Illness Chief Complaint: sob,fever History of Present Illness: 77 y.o. F w/ PMHx. of HTN, NIDDM, Afib(s/p ablation on Coumadin), LLE DVT, CHFpEF, WI( s/p catherization), CKD Stage 4, GERD, and over active bladder presents with SOB. The pt was recently discharged x4 days ago for COPD exacerbation with BIPAP machine but it was never delivered. Per patients family member, the patient returned home and appeared to be normal for the first 2 days. On the third day, pt began to have cough and JOHNSON. This morning, the patient had one episode of NBNB vomiting. Her SOB worsened, despite being given a nebulizer. Patient was given 3 Nitro while in the EMS before arrival. Pt denies any fevers, chest pain, hemoptysis, abd pain, diaphoresis. Per EMS, pt was tachypneic and satting in 80s upon arrival. Started on BIPAP and respiratory status stabilized. patient continued to be very sob and was transferred to icu as she came close to intubation. 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: Yes: Peripheral Neuropathy Cardio/Vascular: Yes: AFIB, CHF, HTN, Hyperlipdemia, Other (Atrial flutter s/p ablation, PAD) Pulmonary: Yes: COPD Renal/: Yes: Renal Inusuff (stage 4), Other (Overactive Bladder) Psych: Yes: Depression Endocrine: Yes: Diabetes Mellitus (initially on oral agents, now on insulin) - Past Surgical History Past Surgical History: Yes: Colonoscopy (polyps a few years ago), Hysterectomy ( fibroids), Tubal Ligation, Upper Endoscopy (neg 1+ yrs ago) - Alcohol/Substance Use Hx Alcohol Use: No - Smoking History Smoking history: Former smoker Have you smoked in the past 12 months: No Aproximately how many cigarettes per day: 1 If you are a former smoker, when did you quit?: 1 year ago - Social History Usual Living Arrangement: With Child ADL: Family Assistance History of Recent Travel: No Home Medications - Allergies Allergies/Adverse Reactions: Allergies Allergy/AdvReac Type Severity Reaction Status Date / Time No Known Allergies Allergy Verified 09/07/18 12:50 - Home Medications Home Medications: Ambulatory Orders Folic Acid 1 mg PO DAILY 12/09/17 Sodium Bicarbonate - 650 mg PO BID #40 tablet 12/11/17 Warfarin Sodium [Coumadin] 7.5 mg PO HS 03/09/18 Diltiazem Cd [Cardizem Cd -] 120 mg PO DAILY 28 Days #28 cap.cd.24h 03/11/18 Albuterol 0.083% Nebulizer Norma [Ventolin 0.083% Nebulizer Soln -] 1 amp NEB Q6H PRN #25 amp 09/03/18 Albuterol 2.5/Ipratropium 0.5 [Duoneb -] 1 amp NEB RBID PRN #25 amp 09/03/18 Budesonide/Formeterol Fumarate [SYMBICORT 160/4.5mcg -] 2 puff IH BID #25 inhaler 09/03/18 Insulin (Levemir) [Levemir Vial] 24 units SQ HS units 09/03/18 hydrALAZINE HCL [Apresoline -] 100 mg PO TID #90 tablet 09/03/18 predniSONE [Deltasone -] See Taper PO ASDIR #18 tab 09/03/18 Family Disease History - Family Disease History Family Disease History: Diabetes: Grandparent, Mother, Sister (lung cancer), CA : Sister Review of Systems - Review of Systems Constitutional: reports: Fever Eyes: reports: No Symptoms HENT: reports: No Symptoms Neck: reports: No Symptoms Cardiovascular: reports: No Symptoms Respiratory: reports: Cough, SOB, SOB on Exertion Gastrointestinal: reports: No Symptoms Genitourinary: reports: No Symptoms Musculoskeletal: reports: No Symptoms Integumentary: reports: No Symptoms Neurological: reports: No Symptoms Endocrine: reports: No Symptoms Hematology/Lymphatic: reports: No Symptoms Psychiatric: reports: No Symptoms Physical Exam Vital Signs: Vital Signs Temperature 97.5 F L 09/08/18 06:00 Pulse Rate 80 09/08/18 10:00 Respiratory Rate 20 09/08/18 10:00 Blood Pressure 180/60 H 09/08/18 10:00 O2 Sat by Pulse Oximetry (%) 100 09/08/18 09:00 Constitutional: Yes: Calm, Mild Distress Eyes: Yes: Conjunctiva Clear Cardiovascular: Yes: Regular Rate and Rhythm Respiratory: Yes: Regular, On Nasal O2, Poor Air Entry Gastrointestinal: Yes: Normal Bowel Sounds, Soft Musculoskeletal: Yes: WNL Extremities: Yes: WNL Neurological: Yes: Alert, Oriented Psychiatric: Yes: Alert, Oriented Labs: CBC, BMP 09/08/18 05:39 09/08/18 05:39 Imaging - Results Chest X-ray: Report Reviewed, Image Reviewed Assessment/Plan Acute Hypoxic Respiratory Failure Pneumonia Acute on Chronic Diastolic Heart Failure Atrial Fibrillation Pulmonary HTN CKD IV CAD HTN DM patient currently showing signs of improvement,still with air hunger plan 'continue close watch resp support await for cx results to be back close watch' i would suggest gettign and echo on her if she does nto start improving i might add vanco rest as per icu cc 40 min
--- NOTE | 2018-09-08 13:34 | PN ---
Progress Note (short form) - Note Progress Note: Renal follow up for CKD This is a 77 year old woman with history of CKD stage 4/5 ( baseline Cr 3.5), hypertension, COPD, CHF presented from home with SOB. S/p recent admission during which she had JOSE and COPD exacerbation. Did not receive her BIPAP machine at home on discharge. Denies any chest pain, fever, chills, N/V/D, anorexia, flank pain, dysuria, frequency or urgency. Vital Signs Temperature 98.5 F 09/08/18 12:00 Pulse Rate 82 09/08/18 12:00 Respiratory Rate 20 09/08/18 10:00 Blood Pressure 183/68 H 09/08/18 12:00 O2 Sat by Pulse Oximetry (%) 100 09/08/18 09:00 Intake & Output 09/05/18 09/06/18 09/07/18 09/08/18 23:59 23:59 23:59 23:59 Intake Total 50 Output Total 1700 Balance -1650 Weight 90.718 kg 101 kg NAD awake and alert neck supple, no JVD RRR Dec BS, no rales soft NT/ND trace LE edema CBC, BMP 09/08/18 05:39 09/08/18 05:39 Current Medications Albuterol Sulfate (Ventolin 0.083% Nebulizer Soln -) 1 amp NEB Q4H PRN PRN Reason: SHORT OF BREATH/WHEEZING Albuterol/Ipratropium (Duoneb -) 1 amp NEB RQID [facility] Last Admin: 09/08/18 12:21 Dose: 1 amp Budesonide/Formoterol Fumarate (Symbicort 160/4.5mcg -) 2 puff IH BID [facility] Last Admin: 09/07/18 22:34 Dose: Not Given Chlorhexidine Gluconate (Hibiclens For Decolonization -) 1 applic TP HS [facility] Last Admin: 09/07/18 23:26 Dose: 1 applic Diltiazem HCl (Cardizem Cd -) 120 mg PO DAILY [facility] Last Admin: 09/08/18 10:08 Dose: 120 mg Folic Acid (Folic Acid -) 1 mg PO DAILY [facility] Last Admin: 09/08/18 09:20 Dose: 1 mg Hydralazine HCl (Apresoline -) 100 mg PO TID [facility] Last Admin: 09/08/18 07:35 Dose: 100 mg Piperacillin Sod/Tazobactam (Sod 2.25 gm/ Dextrose) 50 mls @ 100 mls/hr IVPB Q8H-IV [facility]; Protocol Last Admin: 09/08/18 09:20 Dose: 100 mls/hr Insulin Aspart (Novolog Vial Sliding Scale -) 1 vial SQ Q6H [facility]; Protocol Last Admin: 09/08/18 07:30 Dose: Not Given Insulin Detemir (Levemir Vial) 24 units SQ HS [facility] Methylprednisolone Sodium Succinate (Solu-Medrol -) 40 mg IVPUSH DAILY [facility] Stop: 09/12/18 09:59 Last Admin: 09/08/18 09:21 Dose: 40 mg Mupirocin (Bactroban Ointment (For Decolonization) -) 1 applic NS BID [facility] Stop: 09/12/18 21:59 Last Admin: 09/08/18 09:52 Dose: 1 applic Sodium Bicarbonate (Sodium Bicarbonate -) 650 mg PO BID [facility] Last Admin: 09/08/18 09:21 Dose: 650 mg Warfarin Sodium (Coumadin -) 6 mg PO DAILY@1800 [facility] 77 year old woman with history of CKD stage 4/5 (baseline Cr 3.5), hypertension, COPD, CHF presented from home with SOB. #acute dyspnea #COPD #CKD stage 4/5 with recent JOSE now resolved #CHF #Hypertension Renal function now improved and stable has mild edema in LE but CXR shows no overt effusion or HF would hold standing diuretics and trend renal function (was given IV lasix today ) continue steroids and BIPAP as per pulmonary continue present antihypertensives, no GLENDA/ARB given low eGFR dose all meds for CrCl < 10 no emergent indication for [facility] WOMEN Thank you Tylor To DO
--- NOTE | 2018-09-08 13:35 | PN ---
Physical Exam: SUBJECTIVE: Patient seen and examined at the bedside. Overnight, patient was stabilized on BiPAP, and stated that she continued to have some trouble breathing but was largely resolved. Patient was resting comfortably on BiPAP and decision was made to transition to NC which patient will be trialed on. Denied chest pain, abd pain, dizziness, lightheadedness, numbness, tingling. OBJECTIVE: Vital Signs Period Temp Pulse Resp BP Sys/Renee Pulse Ox Last 24 Hr 97.5 F-99.5 F 66-86 13-26 112-210/60-79 100-100 GENERAL: The patient is awake, alert, and fully oriented, in no acute distress. HEAD: Normal with no signs of trauma. EYES: PERRL, extraocular movements intact, sclera anicteric, conjunctiva clear. No ptosis. NECK: Trachea midline, full range of motion, supple. LUNGS: Wheezing heard bilaterally, decreased breath sounds at bases with occasional crackles heard at bases. HEART: Regular rate and rhythm, S1, S2 without murmur, rub or gallop. ABDOMEN: Soft, nontender, nondistended, normoactive bowel sounds, no guarding, no rebound. EXTREMITIES: 1+ pulses, warm, well-perfused, 1+ edema. NEUROLOGICAL: Cranial nerves II through XII grossly intact. Normal speech, muscle strength diminished due to generalized weakness. PSYCH: Normal mood, normal affect. SKIN: Warm, dry, normal turgor, no rashes or lesions noted Laboratory Results - last 24 hr 09/07/18 09/07/18 09/07/18 12:51 12:51 12:51 WBC RBC Hgb Hct MCV MCH MCHC RDW Plt Count MPV Absolute Neuts (auto) Neutrophils % Neutrophils % (Manual) Band Neutrophils % Lymphocytes % Lymphocytes % (Manual) Monocytes % Monocytes % (Manual) Eosinophils % Eosinophils % (Manual) Basophils % Basophils % (Manual) Myelocytes % (Man) Promyelocytes % (Man) Blast Cells % (Manual) Nucleated RBC % Metamyelocytes Hypochromia Platelet Estimate Platelet Comment Polychromasia Poikilocytosis Basophilic Stippling Anisocytosis Microcytosis Macrocytosis Spherocytes Target Cells Acanthocytes (Spur) PT with INR 25.40 H INR 2.14 H PTT (Actin FS) Anticoagulation Therapy Puncture Site ABG pH ABG pCO2 at Pt Temp ABG pO2 at Pt Temp ABG HCO3 ABG O2 Sat (Measured) ABG O2 Content ABG Base Excess Cr Test O2 Delivery Device Oxygen Flow Rate Vent Mode Vent Rate Mechanical Rate Pressure Support Vent Sodium Cancelled Potassium Cancelled Chloride Cancelled Carbon Dioxide Cancelled Anion Gap Cancelled BUN Cancelled Creatinine Cancelled Est GFR (CKD-EPI)AfAm Cancelled Est GFR (CKD-EPI)NonAf Cancelled POC Glucometer Random Glucose Cancelled Lactic Acid Calcium Cancelled Phosphorus Cancelled Magnesium Cancelled Total Bilirubin Cancelled AST Cancelled ALT Cancelled Alkaline Phosphatase Cancelled Creatine Kinase Cancelled Troponin I Cancelled B-Natriuretic Peptide Cancelled Total Protein Cancelled Albumin Cancelled Urine Color Urine Appearance Urine pH Ur Specific [place] Urine Protein Urine Glucose (UA) Urine Ketones Urine Blood Urine Nitrite Urine Bilirubin Urine Urobilinogen Ur Leukocyte Esterase Urine WBC (Auto) Urine Casts (Auto) U Epithel Cells (Auto) Urine Bacteria (Auto) Crossmatch 09/07/18 09/07/18 09/07/18 12:51 13:21 14:23 WBC RBC Hgb Hct MCV MCH MCHC RDW Plt Count MPV Absolute Neuts (auto) Neutrophils % Neutrophils % (Manual) 91.9 H Band Neutrophils % 2.0 Lymphocytes % Lymphocytes % (Manual) 3.1 L Monocytes % Monocytes % (Manual) 3 L Eosinophils % Eosinophils % (Manual) 0.0 Basophils % Basophils % (Manual) 0.0 Myelocytes % (Man) 0 Promyelocytes % (Man) 0 Blast Cells % (Manual) 0 Nucleated RBC % 0 Metamyelocytes 0 Hypochromia 0 Platelet Estimate Normal Platelet Comment Polychromasia 0 Poikilocytosis 0 Basophilic Stippling Anisocytosis 0 Microcytosis 0 Macrocytosis 0 Spherocytes Target Cells Acanthocytes (Spur) PT with INR INR PTT (Actin FS) Anticoagulation Therapy Puncture Site ABG pH ABG pCO2 at Pt Temp ABG pO2 at Pt Temp ABG HCO3 ABG O2 Sat (Measured) ABG O2 Content ABG Base Excess Cr Test O2 Delivery Device Oxygen Flow Rate Vent Mode Vent Rate Mechanical Rate Pressure Support Vent Sodium Potassium Chloride Carbon Dioxide Anion Gap BUN Creatinine Est GFR (CKD-EPI)AfAm Est GFR (CKD-EPI)NonAf POC Glucometer Random Glucose Lactic Acid 0.9 Calcium Phosphorus Magnesium Total Bilirubin AST ALT Alkaline Phosphatase Creatine Kinase 141 Troponin I 0.05 B-Natriuretic Peptide Total Protein Albumin Urine Color Urine Appearance Urine pH Ur Specific [place] Urine Protein Urine Glucose (UA) Urine Ketones Urine Blood Urine Nitrite Urine Bilirubin Urine Urobilinogen Ur Leukocyte Esterase Urine WBC (Auto) Urine Casts (Auto) U Epithel Cells (Auto) Urine Bacteria (Auto) Crossmatch 09/07/18 09/07/18 09/07/18 14:40 14:48 18:52 WBC RBC Hgb Hct MCV MCH MCHC RDW Plt Count MPV Absolute Neuts (auto) Neutrophils % Neutrophils % (Manual) Band Neutrophils % Lymphocytes % Lymphocytes % (Manual) Monocytes % Monocytes % (Manual) Eosinophils % Eosinophils % (Manual) Basophils % Basophils % (Manual) Myelocytes % (Man) Promyelocytes % (Man) Blast Cells % (Manual) Nucleated RBC % Metamyelocytes Hypochromia Platelet Estimate Platelet Comment Polychromasia Poikilocytosis Basophilic Stippling Anisocytosis Microcytosis Macrocytosis Spherocytes Target Cells Acanthocytes (Spur) PT with INR INR PTT (Actin FS) Anticoagulation Therapy No Result Required. Puncture Site No Result Required. ABG pH 7.39 ABG pCO2 at Pt Temp 35.1 ABG pO2 at Pt Temp 136 H ABG HCO3 20.8 L ABG O2 Sat (Measured) 97.1 ABG O2 Content 15.5 ABG Base Excess -3.1 L Cr Test No Result Required. O2 Delivery Device No Result Required. Oxygen Flow Rate No Result Required. Vent Mode No Result Required. Vent Rate No Result Required. Mechanical Rate No Result Required. Pressure Support Vent No Result Required. Sodium 140 Potassium 4.6 Chloride 109 H Carbon Dioxide 22 Anion Gap 9 BUN 63.4 H Creatinine 3.3 H Est GFR (CKD-EPI)AfAm 14.65 Est GFR (CKD-EPI)NonAf 12.64 POC Glucometer Random Glucose 135 H Lactic Acid Calcium 7.8 L Phosphorus 2.9 Magnesium 2.0 Total Bilirubin 0.5 AST 9 L ALT 21 Alkaline Phosphatase 39 L Creatine Kinase Troponin I B-Natriuretic Peptide 5214.1 H Total Protein 5.4 L Albumin 2.5 L Urine Color Urine Appearance Urine pH Ur Specific [place] Urine Protein Urine Glucose (UA) Urine Ketones Urine Blood Urine Nitrite Urine Bilirubin Urine Urobilinogen Ur Leukocyte Esterase Urine WBC (Auto) Urine Casts (Auto) U Epithel Cells (Auto) Urine Bacteria (Auto) Crossmatch 09/07/18 09/07/1809/07/19 19:30 20:02 21:40 WBC RBC Hgb Hct MCV MCH MCHC RDW Plt Count MPV Absolute Neuts (auto) Neutrophils % Neutrophils % (Manual) Band Neutrophils % Lymphocytes % Lymphocytes % (Manual) Monocytes % Monocytes % (Manual) Eosinophils % Eosinophils % (Manual) Basophils % Basophils % (Manual) Myelocytes % (Man) Promyelocytes % (Man) Blast Cells % (Manual) Nucleated RBC % Metamyelocytes Hypochromia Platelet Estimate Platelet Comment Polychromasia Poikilocytosis Basophilic Stippling Anisocytosis Microcytosis Macrocytosis Spherocytes Target Cells Acanthocytes (Spur) PT with INR INR PTT (Actin FS) Anticoagulation Therapy Puncture Site ABG pH ABG pCO2 at Pt Temp ABG pO2 at Pt Temp ABG HCO3 ABG O2 Sat (Measured) ABG O2 Content ABG Base Excess Cr Test O2 Delivery Device Oxygen Flow Rate Vent Mode Vent Rate Mechanical Rate Pressure Support Vent Sodium Potassium Chloride Carbon Dioxide Anion Gap BUN Creatinine Est GFR (CKD-EPI)AfAm Est GFR (CKD-EPI)NonAf POC Glucometer 118 Random Glucose Lactic Acid 0.8 Calcium Phosphorus Magnesium Total Bilirubin AST ALT Alkaline Phosphatase Creatine Kinase Troponin I B-Natriuretic Peptide Total Protein Albumin Urine Color Yellow Urine Appearance Clear Urine pH 5.5 Ur Specific [place] 1.019 Urine Protein 3+ H Urine Glucose (UA) Trace Urine Ketones Negative Urine Blood Negative Urine Nitrite Negative Urine Bilirubin Negative Urine Urobilinogen 0.2 Ur Leukocyte Esterase Negative Urine WBC (Auto) 1 Urine Casts (Auto) 9 U Epithel Cells (Auto) 10.0 Urine Bacteria (Auto) 107.7 Crossmatch 09/08/18 09/08/18 09/08/18 00:44 05:39 05:39 WBC 21.0 H RBC 3.04 L Hgb 9.5 L Hct 29.9 L MCV 98.6 H MCH 31.4 MCHC 31.9 L RDW 15.4 Plt Count 106 L D MPV 10.5 Absolute Neuts (auto) 19.6 H Neutrophils % 93.5 H Neutrophils % (Manual) 88.0 H Band Neutrophils % 6.0 Lymphocytes % 4.1 L D Lymphocytes % (Manual) 4.0 L D Monocytes % 2.3 L Monocytes % (Manual) 1 L Eosinophils % 0.0 D Eosinophils % (Manual) 0.0 Basophils % 0.1 Basophils % (Manual) 0.0 Myelocytes % (Man) 0 Promyelocytes % (Man) 0 Blast Cells % (Manual) 0 Nucleated RBC % 0 Metamyelocytes 0 Hypochromia 0 Platelet Estimate Decreased Platelet Comment Present Polychromasia 0 Poikilocytosis 1+ Basophilic Stippling 1+ Anisocytosis 2+ Microcytosis 1+ Macrocytosis 0 Spherocytes 1+ Target Cells 1+ Acanthocytes (Spur) 1+ PT with INR 32.30 H INR 2.71 H PTT (Actin FS) 32.5 Anticoagulation Therapy Puncture Site ABG pH ABG pCO2 at Pt Temp ABG pO2 at Pt Temp ABG HCO3 ABG O2 Sat (Measured) ABG O2 Content ABG Base Excess Cr Test O2 Delivery Device Oxygen Flow Rate Vent Mode Vent Rate Mechanical Rate Pressure Support Vent Sodium Potassium Chloride Carbon Dioxide Anion Gap BUN Creatinine Est GFR (CKD-EPI)AfAm Est GFR (CKD-EPI)NonAf POC Glucometer 96 Random Glucose Lactic Acid Calcium Phosphorus Magnesium Total Bilirubin AST ALT Alkaline Phosphatase Creatine Kinase Troponin I B-Natriuretic Peptide Total Protein Albumin Urine Color Urine Appearance Urine pH Ur Specific [place] Urine Protein Urine Glucose (UA) Urine Ketones Urine Blood Urine Nitrite Urine Bilirubin Urine Urobilinogen Ur Leukocyte Esterase Urine WBC (Auto) Urine Casts (Auto) U Epithel Cells (Auto) Urine Bacteria (Auto) Crossmatch 09/08/18 09/08/18 09/08/18 05:39 07:13 07:28 WBC RBC Hgb Hct MCV MCH MCHC RDW Plt Count MPV Absolute Neuts (auto) Neutrophils % Neutrophils % (Manual) Band Neutrophils % Lymphocytes % Lymphocytes % (Manual) Monocytes % Monocytes % (Manual) Eosinophils % Eosinophils % (Manual) Basophils % Basophils % (Manual) Myelocytes % (Man) Promyelocytes % (Man) Blast Cells % (Manual) Nucleated RBC % Metamyelocytes Hypochromia Platelet Estimate Platelet Comment Polychromasia Poikilocytosis Basophilic Stippling Anisocytosis Microcytosis Macrocytosis Spherocytes Target Cells Acanthocytes (Spur) PT with INR INR PTT (Actin FS) Anticoagulation Therapy No Result Required. Puncture Site Right radial ABG pH 7.39 ABG pCO2 at Pt Temp 32.9 L ABG pO2 at Pt Temp 120 H ABG HCO3 19.5 L ABG O2 Sat (Measured) 98.3 H ABG O2 Content 12.8 L ABG Base Excess -4.3 L Cr Test Positive O2 Delivery Device No Result Required. Oxygen Flow Rate No Result Required. Vent Mode No Result Required. Vent Rate No Result Required. Mechanical Rate No Result Required. Pressure Support Vent No Result Required. Sodium 142 Potassium 5.1 Chloride 111 H Carbon Dioxide 22 Anion Gap 8 BUN 62.4 H Creatinine 3.3 H Est GFR (CKD-EPI)AfAm 14.65 Est GFR (CKD-EPI)NonAf 12.64 POC Glucometer 88 Random Glucose 81 Lactic Acid Calcium 7.6 L Phosphorus 4.7 Magnesium 2.2 Total Bilirubin 0.7 AST 8 L ALT 17 Alkaline Phosphatase 35 L Creatine Kinase Troponin I B-Natriuretic Peptide Total Protein 4.8 L Albumin 2.1 L Urine Color Urine Appearance Urine pH Ur Specific [place] Urine Protein Urine Glucose (UA) Urine Ketones Urine Blood Urine Nitrite Urine Bilirubin Urine Urobilinogen Ur Leukocyte Esterase Urine WBC (Auto) Urine Casts (Auto) U Epithel Cells (Auto) Urine Bacteria (Auto) Crossmatch 09/08/18 09/08/18 10:39 12:45 WBC RBC Hgb Hct MCV MCH MCHC RDW Plt Count MPV Absolute Neuts (auto) Neutrophils % Neutrophils % (Manual) Band Neutrophils % Lymphocytes % Lymphocytes % (Manual) Monocytes % Monocytes % (Manual) Eosinophils % Eosinophils % (Manual) Basophils % Basophils % (Manual) Myelocytes % (Man) Promyelocytes % (Man) Blast Cells % (Manual) Nucleated RBC % Metamyelocytes Hypochromia Platelet Estimate Platelet Comment Polychromasia Poikilocytosis Basophilic Stippling Anisocytosis Microcytosis Macrocytosis Spherocytes Target Cells Acanthocytes (Spur) PT with INR INR PTT (Actin FS) Anticoagulation Therapy Puncture Site ABG pH ABG pCO2 at Pt Temp ABG pO2 at Pt Temp ABG HCO3 ABG O2 Sat (Measured) ABG O2 Content ABG Base Excess Cr Test O2 Delivery Device Oxygen Flow Rate Vent Mode Vent Rate Mechanical Rate Pressure Support Vent Sodium Potassium Chloride Carbon Dioxide Anion Gap BUN Creatinine Est GFR (CKD-EPI)AfAm Est GFR (CKD-EPI)NonAf POC Glucometer 105 Random Glucose Lactic Acid Calcium Phosphorus Magnesium Total Bilirubin AST ALT Alkaline Phosphatase Creatine Kinase Troponin I B-Natriuretic Peptide Total Protein Albumin Urine Color Urine Appearance Urine pH Ur Specific [place] Urine Protein Urine Glucose (UA) Urine Ketones Urine Blood Urine Nitrite Urine Bilirubin Urine Urobilinogen Ur Leukocyte Esterase Urine WBC (Auto) Urine Casts (Auto) U Epithel Cells (Auto) Urine Bacteria (Auto) Crossmatch See Detail Active Medications Generic Name Dose Route Start Last Admin Trade Name Freq PRN Reason Stop Dose Admin Albuterol Sulfate 1 amp 09/07/18 21:00 Ventolin 0.083% Nebulizer Soln - NEB Q4H PRN SHORT OF BREATH/WHEEZING Albuterol/Ipratropium 1 amp 09/08/18 08:00 09/08/18 12:21 Duoneb - NEB 1 amp RQID ERMA Administration Budesonide/Formoterol Fumarate 2 puff 09/07/18 22:00 09/07/18 22:34 Symbicort 160/4.5mcg - IH Not Given BID [facility] Chlorhexidine Gluconate 1 applic 09/07/18 22:00 09/07/18 23:26 Hibiclens For Decolonization - TP 1 applic HS ERMA Administration Diltiazem HCl 120 mg 09/08/18 10:00 09/08/18 10:08 Cardizem Cd - PO 120 mg DAILY ERMA Administration Folic Acid 1 mg 09/08/18 10:00 09/08/18 09:20 Folic Acid - PO 1 mg DAILY ERMA Administration Hydralazine HCl 100 mg 09/07/18 22:00 09/08/18 07:35 Apresoline - PO 100 mg TID ERMA Administration Piperacillin Sod/Tazobactam 50 mls @ 100 mls/hr 09/07/18 18:00 09/08/18 09:20 Sod 2.25 gm/ Dextrose IVPB 100 mls/hr Q8H-IV ERMA Administration Protocol Insulin Aspart 1 vial 09/07/18 19:15 09/08/18 07:30 Novolog Vial Sliding Scale - SQ Not Given Q6H [facility] Protocol Insulin Detemir 24 units 09/08/18 22:00 Levemir Vial SQ HS [facility] Methylprednisolone Sodium Succinate 40 mg 09/08/18 10:00 09/08/18 09:21 Solu-Medrol - IVPUSH 09/12/18 09:59 40 mg DAILY ERMA Administration Mupirocin 1 applic 09/07/18 22:00 09/08/18 09:52 Bactroban Ointment (For Decolonization) - NS 09/12/18 21:59 1 applic BID ERMA Administration Sodium Bicarbonate 650 mg 09/07/18 22:00 09/08/18 09:21 Sodium Bicarbonate - PO 650 mg BID ERMA Administration Warfarin Sodium 6 mg 09/08/18 18:00 Coumadin - PO DAILY@1800 [facility] ASSESSMENT/PLAN: Madeline Lorenzo is a 77 year old female with a PMHx of HTN, NIDDM, Afib(s/p ablation on Coumadin), LLE DVT, CHFpEF, OH( s/p catherization), CKD Stage 4, GERD, and over active bladder who was admitted to the ICU after developing hypoxic respiratory distress and CHF decompensation. Acute hypoxic respiratory failure Congestive Heart Failure with preserved Ejection Fraction HTN NIDDM Atrial fibrillation CKD stage 4/5 GERD NEUROLOGIC - stable - awake and alert CARDIOLOGY - continue home hydralazine - continue home cardizem - Lasix 80mg IV push given once - CXR showing persistent congestive changes - repeat CXR shows resolving pulmonary infiltrates - continue to monitor volume status, patient currently appears with some volume overload - monitor I+Os, daily wts - last echo from 08/23/18 showing preserved HF with preserved ejection fraction, grade 1 diastolic dysfunction - on warfarin 6mg daily for afib - INR checks daily RESPIRATORY - currently on NC 2L - BiPAP as needed - Duonebs qid and q4h prn - continue home Symbicort - SoluMedrol 40mg IV daily RENAL - Dr. To consulted recs appreciated - 1 dose of 80mg IV Lasix given today - producing urine, monitor I+O's - hold diuretics, trial patient off diuretics and monitor renal function - no noted indication for emergent [employer] - continue home sodium bicarbonate GASTROINTESTINAL - Protonix prophylaxis while patient on steroids GENITOURINARY - no acute issues INFECTIOUS DISEASE - given azithromycin and vancomycin in ED - currently on Zosyn 2.25 dosed renally for presumptive HAP - awaiting cultures - Dr. Ashford consulted, recs appreciated ENDOCRINE - BGM ACHS - Levemir 24 units qhs - ISS HEMATOLOGY - elevated WBC and neutrophils likely due to acute reaction from COPD and corticosteroids MUSCULOSKELETAL - no acute issues PSYCHIATRY - no acute issues F/E/N - no standing fluids - continue to monitor electrolytes and replete as necessary - continue home folic acid supplementation - renal/diabetic diet LINES - R wrist 22 gauge placed 09/07 PROPHYLAXIS - on warfarin, INR checks daily - Protonix CODE - full code DISPO - continue to monitor in ICU CASE DISCUSSED WITH DR. WHYTE AND PRIMARY TEAM AYDE BENAVIDEZ DO - PGY-1 INTERNAL MEDICINE Problem List - Problems (1) COPD (chronic obstructive pulmonary disease) Code(s): J44.9 - CHRONIC OBSTRUCTIVE PULMONARY DISEASE, UNSPECIFIED Qualifiers: COPD type: chronic bronchitis (2) Afib Code(s): I48.91 - UNSPECIFIED ATRIAL FIBRILLATION Qualifiers: Atrial fibrillation type: unspecified Qualified Code(s): I48.91 - Unspecified atrial fibrillation (3) Diastolic CHF Code(s): I50.30 - UNSPECIFIED DIASTOLIC (CONGESTIVE) HEART FAILURE Qualifiers: Heart failure chronicity: chronic Qualified Code(s): I50.32 - Chronic diastolic (congestive) heart failure (4) Hypertension Code(s): I10 - ESSENTIAL (PRIMARY) HYPERTENSION Qualifiers: Hypertension type: essential hypertension Qualified Code(s): I10 - Essential (primary) hypertension (5) Type 2 diabetes mellitus Code(s): E11.9 - TYPE 2 DIABETES MELLITUS WITHOUT COMPLICATIONS Qualifiers: Diabetes mellitus complication status: with circulatory complication Visit type - Emergency Visit Emergency Visit: No - New Patient This patient is new to me today: Yes Date on this admission: 09/08/18 - Critical Care Critical Care patient: Yes Total Critical Care Time (in minutes): 35 Critical Care Statement: The care of this patient involved high complexity decision making to prevent further life threatening deterioration of the patient 's condition and/or to evaluate & treat vital organ system(s) failure or risk of failure.
--- NOTE | 2018-09-08 14:01 | PN ---
Physical Exam: SUBJECTIVE: Patient seen and examined at bedside. No acute events overnight. Pt was stabilized on BiPAP and slept compfortably with improved SOB. She denies chest pain, dizziness, nausea, vomiting, fevers. OBJECTIVE: Vital Signs Period Temp Pulse Resp BP Sys/Renee Pulse Ox Last 24 Hr 97.5 F-99.5 F 66-86 13-26 112-210/60-79 100-100 GENERAL: The patient is awake, alert, and fully oriented, in no acute distress. Now on NC. HEAD: Normal with no signs of trauma. EYES: PERRL, extraocular movements intact, sclera anicteric, conjunctiva clear. No ptosis. ENT: Ears normal, nares patent, oropharynx clear without exudates, moist mucous membranes. NECK: Trachea midline, full range of motion, supple. LUNGS: Decreased breath sounds. Rales and crackles in BL kee R>L HEART: Regular rate and rhythm, S1, S2. 2/6 murmur in RUSB ABDOMEN: Soft, nontender, nondistended, normoactive bowel sounds, no guarding, no rebound, no hepatosplenomegaly, no masses. EXTREMITIES: 2+ pulses, warm, well-perfused, 1+ edema in BL LE NEUROLOGICAL: Cranial nerves II through XII grossly intact. Normal speech, gait not observed. PSYCH: Normal mood, normal affect. SKIN: Warm, dry, normal turgor, no rashes or lesions noted Laboratory Results - last 24 hr CBC,CMP WBC 21.0 K/mm3 (4.0-10.0) H RBC 3.04 M/mm3 (3.60-5.2) L Hgb 9.5 GM/dL (10.7-15.3) L Hct 29.9 % (32.4-45.2) L MCV 98.6 fl (80-96) H MCH 31.4 pg (25.7-33.7) MCHC 31.9 g/dl (32.0-36.0) L RDW 15.4 % (11.6-15.6) Plt Count 106 K/MM3 (134-434) L D MPV 10.5 fl (7.5-11.1) Absolute Neuts (auto) 19.6 K/mm3 (1.5-8.0) H Neutrophils % 93.5 % (42.8-82.8) H Neutrophils % (Manual) 88.0 % (42.8-82.8) H Band Neutrophils % 6.0 % Lymphocytes % 4.1 % (8-40) L D Lymphocytes % (Manual) 4.0 % (8-40) L D Monocytes % 2.3 % (3.8-10.2) L Monocytes % (Manual) 1 % (3.8-10.2) L Eosinophils % 0.0 % (0-4.5) D Eosinophils % (Manual) 0.0 % (0-4.5) Basophils % 0.1 % (0-2.0) Basophils % (Manual) 0.0 % (0-2.0) Myelocytes % (Man) 0 % (0-2) Promyelocytes % (Man) 0 % (0-2) Blast Cells % (Manual) 0 % (0-0) Nucleated RBC % 0 % (0-0) Metamyelocytes 0 % (0-2) Hypochromia 0 Platelet Estimate Decreased Platelet Comment Present Polychromasia 0 Poikilocytosis 1+ Basophilic Stippling 1+ Anisocytosis 2+ Microcytosis 1+ Macrocytosis 0 Spherocytes 1+ Target Cells 1+ Acanthocytes (Spur) 1+ Sodium 142 mmol/L (136-145) Potassium 5.1 mmol/L (3.5-5.1) Chloride 111 mmol/L (98-107) H Carbon Dioxide 22 mmol/L (21-32) Anion Gap 8 MMOL/L (8-16) BUN 62.4 mg/dL (7-18) H Creatinine 3.3 mg/dL (0.55-1.3) H Est GFR (CKD-EPI)AfAm 14.65 Est GFR (CKD-EPI)NonAf 12.64 POC Glucometer 105 UNITS (80-120) Random Glucose 81 mg/dL (74-106) Lactic Acid 0.8 mmol/L (0.4-2.0) Calcium 7.6 mg/dL (8.5-10.1) L Phosphorus 4.7 mg/dL (2.5-4.9) Magnesium 2.2 mg/dL (1.8-2.4) Total Bilirubin 0.7 mg/dL (0.2-1) AST 8 U/L (15-37) L ALT 17 U/L (13-61) Alkaline Phosphatase 35 U/L (45-117) L Creatine Kinase 141 U/L (26-192) Troponin I 0.05 ng/ml (0.00-0.05) B-Natriuretic Peptide 5214.1 pg/ml (5-450) H Total Protein 4.8 g/dl (6.4-8.2) L Albumin 2.1 g/dl (3.4-5.0) L Active Medications Albuterol Sulfate (Ventolin 0.083% Nebulizer Soln -) 1 amp NEB Q4H PRN PRN Reason: SHORT OF BREATH/WHEEZING Albuterol/Ipratropium (Duoneb -) 1 amp NEB RQID [facility] Last Admin: 09/08/18 12:21 Dose: 1 amp Budesonide/Formoterol Fumarate (Symbicort 160/4.5mcg -) 2 puff IH BID [facility] Last Admin: 09/07/18 22:34 Dose: Not Given Chlorhexidine Gluconate (Hibiclens For Decolonization -) 1 applic TP HS [facility] Last Admin: 09/07/18 23:26 Dose: 1 applic Diltiazem HCl (Cardizem Cd -) 120 mg PO DAILY [facility] Last Admin: 09/08/18 10:08 Dose: 120 mg Folic Acid (Folic Acid -) 1 mg PO DAILY [facility] Last Admin: 09/08/18 09:20 Dose: 1 mg Hydralazine HCl (Apresoline -) 100 mg PO TID [facility] Last Admin: 09/08/18 07:35 Dose: 100 mg Piperacillin Sod/Tazobactam (Sod 2.25 gm/ Dextrose) 50 mls @ 100 mls/hr IVPB Q8H-IV [facility]; Protocol Last Admin: 09/08/18 09:20 Dose: 100 mls/hr Insulin Aspart (Novolog Vial Sliding Scale -) 1 vial SQ Q6H [facility]; Protocol Last Admin: 09/08/18 07:30 Dose: Not Given Insulin Detemir (Levemir Vial) 24 units SQ [facility] Methylprednisolone Sodium Succinate (Solu-Medrol -) 40 mg IVPUSH DAILY [facility] Stop: 09/12/18 09:59 Last Admin: 09/08/18 09:21 Dose: 40 mg Mupirocin (Bactroban Ointment (For Decolonization) -) 1 applic NS BID [facility] Stop: 09/12/18 21:59 Last Admin: 09/08/18 09:52 Dose: 1 applic Sodium Bicarbonate (Sodium Bicarbonate -) 650 mg PO BID [facility] Last Admin: 09/08/18 09:21 Dose: 650 mg Warfarin Sodium (Coumadin -) 6 mg PO DAILY@1800 [facility] ASSESSMENT/PLAN: Pt. is a 77 y.o. F w/ PMHx. of HTN, NIDDM, Afib(s/p ablation on Coumadin), LLE DVT, CHFpEF, LA( s/p catherization), CKD Stage 4, GERD, and over active bladder presents #Acute hypoxic respiratory failure 2/2 aspiration PNA CXR: congestive changes with BL upper lobe infiltrates Zosyn 2.25mg Q8H, pending blood cx (if pt does not improve, add Vanco per ID) Solumedrol 40mg IV push daily Pt transitioned to MD and will be trialed on Continue duonebs prn Pulm consulted Monitor ABG #CKD Stage 5 Cr: 3.3 (baseline 3.6); BUN: 62.4; eGFR: 14.65 HgB: 9.5 Nephro on board #Afib EKG: NSR, Q waves in V1, QTc: 450 Diltiazem 120mg Daily Decrease warfarin 7.5-->6.0 INR: 2.71, continue to monitor #CHFpEF BNP: 5214.1, continue to monitor IV Lasix 80mg one push Echo (08/23/18) EF 60-65%. #HTN Cont home meds Hydralazine 100mg TID po Pulmonary HTN Pulm. Art Pressure 27mm Hg on Echo in November 2018---> 33mmHg on Chest CT in March #IDDM Cont home meds Levemir 24units SQ HS, Sliding scale change from SQ Q6 to TIDAC #FEN Not on any standing fluids Routine BMP monitoring Initiate diet as tolerated #DVT Ppx. Coumadin 6.0mg #Dispo ICU for closer monitoring Pt.'s daughter left her number ([phone] [place] [phone]) for updates Visit type - Emergency Visit Emergency Visit: Yes ED Registration Date: 09/07/18 Care time: The patient presented to the Emergency Department on the above date and was hospitalized for further evaluation of their emergent condition. - New Patient This patient is new to me today: Yes Date on this admission: 09/08/18 - Critical Care Critical Care patient: Yes Total Critical Care Time (in minutes): 45 Critical Care Statement: The care of this patient involved high complexity decision making to prevent further life threatening deterioration of the patient 's condition and/or to evaluate & treat vital organ system(s) failure or risk of failure. ATTENDING PHYSICIAN STATEMENT I saw and evaluated the patient. I reviewed the resident's note and discussed the case with the resident. I agree with the resident's findings and plan as documented. SUBJECTIVE: OBJECTIVE: ASSESSMENT AND PLAN:
[2018-09-08] MEDS: BUDESONIDE/FORMETEROL FUMARATE 160/4.5 mcg INHALER IH SCH ×2 (14:46→21:12)
--- NOTE | 2018-09-08 14:56 | PN ---
Teaching Attending Note Name of Resident: Stacey Hammond ATTENDING PHYSICIAN STATEMENT I saw and evaluated the patient. I reviewed the resident's note and discussed the case with the resident. I agree with the resident's findings and plan as documented. SUBJECTIVE: no fever or chills. No JANE , feels much better. was tachypnic and SOB alier in am , but improved now. denies pain OBJECTIVE: NAD, awake, cooperative CV: RRR, 2/6 Sm at RUSB. Lungs: b/l crackles anteriorly and posteriorly darlene R middle nad R lower lobs Abd:sfot, NT, ND < NL BS Ext : 1+pitting edema on legs ASSESSMENT AND PLAN: 77 y/o lady with h/o CAD, s/p MN, AFib , HTN, diastolic CHF, pulm HTN, TREVON, DM , LLE DVT, CKD 5, GERD and other medical problems who was recently discharged after being treated for COPD, now she presented with fever and with SOB and was found to have b/l infiltrates with acute hypoxic resp failure 1- Acute hypoxic resp failure: due to b/l PNA and acute COPD exacerbation with possible acute diastolic heart failure. - cont zosyn - received lasix this am, will monitor I&O and monitor renal function - cont breathins treatments. - cont steroids - cxray reviewed. - echo was done on 08/23, will not repeat 2- HTN: cont HZN, and cardizem 3- H/o A fib: - cont cardizem - cont coumadin , decrease dose to 6 . 4- DM: rsume her evening dose ilevemir and change SSI from q6 hr to TIDAC. 5- CKD 5: monitor renal function with above management dispo : HLOC. if remains stable can be transferred off to tele
[2018-09-08] MEDS: WARFARIN NA 3 MG TABLET PO SCH (17:38)
[2018-09-08] MEDS: amLODIPine BESYLATE 5 MG TABLET (FP) PO SCH (17:38)
[2018-09-08] MEDS ORDERED: WARFARIN NA 7.5 MG TABLET (FP) PO SCH (18:00)
[2018-09-08] MEDS ORDERED: ACETAMINOPHEN 325 MG TABLET (FP) PO PRN (19:55)
[2018-09-08] MEDS: INSULIN (LEVEMIR) 100 UNITS/ML UNITS SQ SCH (21:11)
[2018-09-08] MEDS: CHLORHEXIDINE GLUCONATE 4% CLEANSER FOR DECOLONIZATION TP SCH (21:13)
[2018-09-09] MEDS ORDERED: PIPERACILLIN/TAZOBACTAM 2.25 GM VIAL IVPB ONE ×3 (02:43→15:55)
[2018-09-09] MEDS ORDERED: DEXTROSE 5%-WATER - 50 ML IVPB ONE ×3 (02:43→15:56)
[2018-09-09] MEDS: PIPERACILLIN/TAZOB 2.25 GM 2.25 GM in DEXTROSE 5%-WATER - 50 ML IVPB SCH ×3 (02:45→17:12)
[2018-09-09] MEDS: INSULIN SLIDING SCALE (NOVOLOG) 1 VIAL SQ SCH ×3 (06:08→17:12)
[2018-09-09 06:18] LABS: HEMATOCRIT 27.3 % (32.4-45.2); HEMOGLOBIN 8.8 GM/dL (10.7-15.3); MCH 31.3 pg (25.7-33.7); MCHC 32.4 g/dl (32.0-36.0); MEAN CELL VOLUME 96.6 fl (80-96); MEAN PLT VOLUME 9.2 fl (7.5-11.1); PLATELET COUNT 120 K/MM3 (134-434); RBC 2.82 M/mm3 (3.60-5.2); WHITE BLOOD COUNT 14.9 K/mm3 (4.0-10.0)
[2018-09-09] MEDS: hydrALAZINE HCL 50 MG TABLET (FP) PO SCH ×3 (06:29→21:06)
[2018-09-09 06:31] LABS: INR 2.59 (0.83-1.09); PROTHROMBIN TIME (PATIENT) 30.9 SEC (9.7-13.0)
[2018-09-09 06:56] LABS: ALBUMIN 2.2 g/dl (3.4-5.0); BILIRUBIN,TOTAL 0.4 mg/dL (0.2-1); BLOOD UREA NITROGEN 82.3 mg/dL (7-18); CALCIUM 7.7 mg/dL (8.5-10.1); CREATININE 4.3 mg/dL (0.55-1.3); MAGNESIUM 2.5 mg/dL (1.8-2.4); PHOSPHOROUS 5.9 mg/dL (2.5-4.9); POTASSIUM 4.5 mmol/L (3.5-5.1); TOT PROT 4.9 g/dl (6.4-8.2)
[2018-09-09] MEDS: ALBUTEROL SO4 2.5/IPRATROPIUM 0.5 INH SOL 3 ML VIAL.NEB. NEB SCH ×4 (08:30→21:09)
[2018-09-09] MEDS: amLODIPine BESYLATE 5 MG TABLET (FP) PO SCH (09:42)
[2018-09-09] MEDS: SODIUM BICARBONATE 650 MG TABLET PO SCH ×2 (09:42→21:06)
[2018-09-09] MEDS: methylPREDNISolone NA SUCC 40 MG/1 ML VIAL IVPUSH SCH (09:43)
[2018-09-09] MEDS: FOLIC ACID 1 MG TABLET (FP) PO SCH (09:46)
[2018-09-09] MEDS ORDERED: DOCUSATE SODIUM 100 MG CAPSULE (FP) PO ONE (09:47)
[2018-09-09] MEDS: BUDESONIDE/FORMETEROL FUMARATE 160/4.5 mcg INHALER IH SCH ×2 (09:52→21:19)
[2018-09-09] MEDS: MUPIROCIN 2% TOPICAL OINTMENT FOR DECOLONIZATION NS SCH ×2 (09:53→21:10)
--- NOTE | 2018-09-09 11:11 | PN ---
Teaching Attending Note Name of Resident: Herminia Russell ATTENDING PHYSICIAN STATEMENT I saw and evaluated the patient. I reviewed the resident's note and discussed the case with the resident. I agree with the resident's findings and plan as documented. SUBJECTIVE: reports stable breathing, with no pc or cough. was SOB and tachypnic last night but did not tolerate BIPAP for a long time OBJECTIVE: NAD, awake, cooperative CV: RRR, 2/6 SM at RUSB. Lungs: b/l crackles anteriorly and posteriorly darlene R middle and lower lung kee Abd: soft, NT, ND , NL BS Ext : 1+pitting edema on legs ASSESSMENT AND PLAN: 77 y/o lady with h/o CAD, s/p MN, AFib , HTN, diastolic CHF, pulm HTN, TREVON, DM , LLE DVT, CKD 5, GERD and other medical problems who was recently discharged after being treated for COPD, now she presented with fever and with SOB and was found to have b/l infiltrates with acute hypoxic resp failure 1- Acute hypoxic resp failure: due to b/l PNA and acute COPD exacerbation. cxray reviewed. slight improvement is seen - cont zosyn - hold lasix. d/w renal - cont breathing treatments. - cont steroids 2- HTN: cont HZN, and cardizem . add norvasc 3- H/o A fib: - cont cardizem - cont coumadin , cont coumad in at 6 mg for now 4- DM: cont levemir and SSI 5- JOSE on CKD 5: cr worse after lasix yesterday - d/w renal , low dose IVF is recommended x 12 hours - monitor renal function dispo : HLOC.transfer to tele
--- NOTE | 2018-09-09 11:14 | PN ---
Physical Exam: SUBJECTIVE: Overnight, patient had a fever of 101 that was treated with tylenol and resolved. No further fevers, patient had no acute complaints. Patient seen and examined at the bedside and stated that her breathing was improved and had no additional complaints. She was alert and understood her current condition. Stable for transfer to telemetry. OBJECTIVE: Vital Signs Period Temp Pulse Resp BP Sys/Renee Pulse Ox Last 24 Hr 97.6 F-101.0 F 69-91 14-26 112-183/45-87 94-100 GENERAL: The patient is awake, alert, and fully oriented, in no acute distress. HEAD: Normal with no signs of trauma. EYES: PERRL, extraocular movements intact, sclera anicteric, conjunctiva clear. No ptosis. NECK: Trachea midline, full range of motion, supple. LUNGS: Breath sounds equal, crackles noted at the bases bilaterally L>R, no wheezes. HEART: Regular rate and rhythm, S1, S2 without murmur, rub or gallop. ABDOMEN: Soft, nontender, nondistended, normoactive bowel sounds, no guarding, no rebound, no masses. EXTREMITIES: 1+ pulses, warm, well-perfused, no edema. NEUROLOGICAL: Cranial nerves II through XII grossly intact. Normal speech. PSYCH: Normal mood, normal affect. SKIN: Warm, dry, normal turgor, no rashes or lesions noted. Laboratory Results - last 24 hr 09/08/18 09/08/18 09/08/18 05:39 10:39 12:45 WBC RBC Hgb Hct MCV MCH MCHC RDW Plt Count MPV Neutrophils % (Manual) 88.0 H Band Neutrophils % 6.0 Lymphocytes % (Manual) 4.0 L D Monocytes % (Manual) 1 L Eosinophils % (Manual) 0.0 Basophils % (Manual) 0.0 Myelocytes % (Man) 0 Promyelocytes % (Man) 0 Blast Cells % (Manual) 0 Metamyelocytes 0 Hypochromia 0 Platelet Estimate Decreased Platelet Comment Present Polychromasia 0 Poikilocytosis 1+ Basophilic Stippling 1+ Anisocytosis 2+ Microcytosis 1+ Macrocytosis 0 Spherocytes 1+ Target Cells 1+ Acanthocytes (Spur) 1+ PT with INR INR Sodium Potassium Chloride Carbon Dioxide Anion Gap BUN Creatinine Est GFR (CKD-EPI)AfAm Est GFR (CKD-EPI)NonAf POC Glucometer 105 Random Glucose Calcium Phosphorus Magnesium Total Bilirubin AST ALT Alkaline Phosphatase LD Total Total Protein Albumin Crossmatch See Detail 09/08/18 09/09/18 09/09/18 17:31 05:55 05:55 WBC 14.9 H RBC 2.82 L Hgb 8.8 L Hct 27.3 L MCV 96.6 H MCH 31.3 MCHC 32.4 RDW 15.0 Plt Count 120 L MPV 9.2 D Neutrophils % (Manual) Band Neutrophils % Lymphocytes % (Manual) Monocytes % (Manual) Eosinophils % (Manual) Basophils % (Manual) Myelocytes % (Man) Promyelocytes % (Man) Blast Cells % (Manual) Metamyelocytes Hypochromia Platelet Estimate Platelet Comment Polychromasia Poikilocytosis Basophilic Stippling Anisocytosis Microcytosis Macrocytosis Spherocytes Target Cells Acanthocytes (Spur) PT with INR 30.90 H INR 2.59 H Sodium Potassium Chloride Carbon Dioxide Anion Gap BUN Creatinine Est GFR (CKD-EPI)AfAm Est GFR (CKD-EPI)NonAf POC Glucometer 157 Random Glucose Calcium Phosphorus Magnesium Total Bilirubin AST ALT Alkaline Phosphatase LD Total Total Protein Albumin Crossmatch 09/09/18 09/09/18 05:55 06:02 WBC RBC Hgb Hct MCV MCH MCHC RDW Plt Count MPV Neutrophils % (Manual) Band Neutrophils % Lymphocytes % (Manual) Monocytes % (Manual) Eosinophils % (Manual) Basophils % (Manual) Myelocytes % (Man) Promyelocytes % (Man) Blast Cells % (Manual) Metamyelocytes Hypochromia Platelet Estimate Platelet Comment Polychromasia Poikilocytosis Basophilic Stippling Anisocytosis Microcytosis Macrocytosis Spherocytes Target Cells Acanthocytes (Spur) PT with INR INR Sodium 139 Potassium 4.5 Chloride 108 H Carbon Dioxide 21 Anion Gap 10 BUN 82.3 H Creatinine 4.3 H Est GFR (CKD-EPI)AfAm 10.64 Est GFR (CKD-EPI)NonAf 9.18 POC Glucometer 268 Random Glucose 298 H Calcium 7.7 L Phosphorus 5.9 H Magnesium 2.5 H Total Bilirubin 0.4 AST 7 L ALT 16 Alkaline Phosphatase 36 L LD Total 247 H Total Protein 4.9 L Albumin 2.2 L Crossmatch Active Medications Generic Name Dose Route Start Last Admin Trade Name Freq PRN Reason Stop Dose Admin Acetaminophen 650 mg 09/08/18 19:55 Tylenol - PO Q4H PRN FEVER Albuterol Sulfate 1 amp 09/07/18 21:00 Ventolin 0.083% Nebulizer Soln - NEB Q4H PRN SHORT OF BREATH/WHEEZING Albuterol/Ipratropium 1 amp 09/08/18 08:00 09/09/18 08:30 Duoneb - NEB 1 amp RQID [facility] Administration Amlodipine Besylate 5 mg 09/08/18 17:00 09/09/18 09:42 Norvasc - PO 5 mg DAILY [facility] Administration Budesonide/Formoterol Fumarate 2 puff 09/07/18 22:00 09/09/18 09:52 Symbicort 160/4.5mcg - IH 2 puff BID [facility] Administration Chlorhexidine Gluconate 1 applic 09/07/18 22:00 09/08/18 21:13 Hibiclens For Decolonization - TP 1 applic HS [facility] Administration Diltiazem HCl 120 mg 09/08/18 10:00 09/09/18 09:46 Cardizem Cd - PO 120 mg DAILY [facility] Administration Folic Acid 1 mg 09/08/18 10:00 09/09/18 09:46 Folic Acid - PO 1 mg DAILY [facility] Administration Hydralazine HCl 100 mg 09/07/18 22:00 09/09/18 06:29 Apresoline - PO 100 mg TID [facility] Administration Piperacillin Sod/Tazobactam 50 mls @ 100 mls/hr 09/07/18 18:00 09/09/18 09:42 Sod 2.25 gm/ Dextrose IVPB 100 mls/hr Q8H-IV [facility] Administration Protocol Insulin Aspart 1 vial 09/08/18 16:30 09/09/18 06:08 Novolog Vial Sliding Scale - SQ 4 units TIDAC [facility] Administration Protocol Insulin Detemir 24 units 09/08/18 22:00 09/08/18 21:11 Levemir Vial SQ 24 units HS [facility] Administration Methylprednisolone Sodium Succinate 40 mg 09/08/18 10:00 09/09/18 09:43 Solu-Medrol - IVPUSH 09/12/18 09:59 40 mg DAILY [facility] Administration Mupirocin 1 applic 09/07/18 22:00 09/09/18 09:53 Bactroban Ointment (For Decolonization) - NS 09/12/18 21:59 1 applic BID [facility] Administration Pantoprazole Sodium 40 mg 09/09/18 10:00 Protonix - PO DAILY [facility] Sodium Bicarbonate 650 mg 09/07/18 22:00 09/09/18 09:42 Sodium Bicarbonate - PO 650 mg BID [facility] Administration Warfarin Sodium 6 mg 09/08/18 18:00 09/08/18 17:38 Coumadin - PO 6 mg DAILY@1800 [facility] Administration ASSESSMENT/PLAN: Madeline Lorenzo is a 77 year old female with a PMHx of HTN, NIDDM, Afib(s/p ablation on Coumadin), LLE DVT, CHFpEF, PA( s/p catherization), CKD Stage 4, GERD, and over active bladder who was admitted to the ICU after developing hypoxic respiratory distress and CHF decompensation. Acute hypoxic respiratory failure Congestive Heart Failure with preserved Ejection Fraction HTN NIDDM Atrial fibrillation CKD stage 4/5 GERD NEUROLOGIC - stable - awake and alert CARDIOLOGY - continue home hydralazine - continue home cardizem - primary team added amlodipine 5mg daily for elevated BP while in the hospital - one time dose of amlodipine 5mg given due to continued elevated BP - change amlodipine to 10mg daily - CXR showing improvement in congestive changes - continue to monitor volume status - monitor I+Os, daily wts, patient has good output of urine - last echo from 08/23/18 showing preserved HF with preserved ejection fraction, grade 1 diastolic dysfunction - on warfarin 6mg daily for afib - INR checks daily, today 2.59 RESPIRATORY - currently on NC 2L - BiPAP as needed - Duonebs qid and q4h prn - continue home Symbicort - SoluMedrol 40mg IV daily RENAL - Dr. 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 Ashford consulted, recs appreciated ENDOCRINE - BGM ACHS - Levemir 24 units qhs - ISS HEMATOLOGY - elevated WBC and neutrophils likely due to acute reaction from COPD and corticosteroids MUSCULOSKELETAL - physical therapy consult ordered PSYCHIATRY - no acute issues F/E/N - 1L of fluids over 12 hours - continue to monitor electrolytes and replete as necessary - continue home folic acid supplementation - renal/diabetic diet LINES - R wrist 22 gauge placed 09/07 PROPHYLAXIS - on warfarin, INR checks daily - Protonix CODE - full code DISPO - stable for transfer to telemetry CASE DISCUSSED WITH DR. WHYTE AND PRIMARY TEAM AYDE BENAVIDEZ DO - PGY-1 INTERNAL MEDICINE Problem List - Problems (1) COPD (chronic obstructive pulmonary disease) Code(s): J44.9 - CHRONIC OBSTRUCTIVE PULMONARY DISEASE, UNSPECIFIED Qualifiers: COPD type: chronic bronchitis (2) Afib Code(s): I48.91 - UNSPECIFIED ATRIAL FIBRILLATION Qualifiers: Atrial fibrillation type: unspecified Qualified Code(s): I48.91 - Unspecified atrial fibrillation (3) Diastolic CHF Code(s): I50.30 - UNSPECIFIED DIASTOLIC (CONGESTIVE) HEART FAILURE Qualifiers: Heart failure chronicity: chronic Qualified Code(s): I50.32 - Chronic diastolic (congestive) heart failure (4) Hypertension Code(s): I10 - ESSENTIAL (PRIMARY) HYPERTENSION Qualifiers: Hypertension type: essential hypertension Qualified Code(s): I10 - Essential (primary) hypertension (5) Type 2 diabetes mellitus Code(s): E11.9 - TYPE 2 DIABETES MELLITUS WITHOUT COMPLICATIONS Qualifiers: Diabetes mellitus complication status: with circulatory complication Visit type - Emergency Visit Emergency Visit: No - New Patient This patient is new to me today: No - Critical Care Critical Care patient: Yes Total Critical Care Time (in minutes): 36 Critical Care Statement: The care of this patient involved high complexity decision making to prevent further life threatening deterioration of the patient 's condition and/or to evaluate & treat vital organ system(s) failure or risk of failure.
[2018-09-09] MEDS ORDERED: SODIUM CHLORIDE 0.9% 500 ML INFUS.BAG IV ONE (11:35)
[2018-09-09] MEDS: PANTOPRAZOLE 40 MG TABLET (FP) PO SCH (11:45)
--- NOTE | 2018-09-09 12:17 | PN ---
Teaching Attending Note Name of Resident: Az Blakely ATTENDING PHYSICIAN STATEMENT I saw and evaluated the patient. I reviewed the resident's note and discussed the case with the resident. I agree with the resident's findings and plan as documented. SUBJECTIVE: Pt seen and examined in the ICU. Breathing much improved today. Febrile overnight. Did not require BiPAP overnight. OBJECTIVE: Vital Signs Period Temp Pulse Resp BP Sys/Renee Pulse Ox Last 24 Hr 97.6 F-101.0 F 69-91 14-26 112-178/45-87 94-100 Intake & Output 09/06/18 09/07/18 09/08/18 09/09/18 23:59 23:59 23:59 23:59 Intake Total 470 180 Output Total 2500 350 Balance -2030 -170 Weight 90.718 kg 101 kg 97.114 kg Gen: less tachypneic Heart: RRR Lung: scattered rhonchi Abd: soft, nontender Ext: no edema CBC, BMP 09/09/18 05:55 09/09/18 05:55 Active Medications Acetaminophen (Tylenol -) 650 mg PO Q4H PRN PRN Reason: FEVER Albuterol Sulfate (Ventolin 0.083% Nebulizer Soln -) 1 amp NEB Q4H PRN PRN Reason: SHORT OF BREATH/WHEEZING Albuterol/Ipratropium (Duoneb -) 1 amp NEB RQID [facility] Last Admin: 09/09/18 08:30 Dose: 1 amp Amlodipine Besylate (Norvasc -) 5 mg PO DAILY [facility] Last Admin: 09/09/18 09:42 Dose: 5 mg Budesonide/Formoterol Fumarate (Symbicort 160/4.5mcg -) 2 puff IH BID [facility] Last Admin: 09/09/18 09:52 Dose: 2 puff Chlorhexidine Gluconate (Hibiclens For Decolonization -) 1 applic TP HS [facility] Last Admin: 09/08/18 21:13 Dose: 1 applic Diltiazem HCl (Cardizem Cd -) 120 mg PO DAILY [facility] Last Admin: 09/09/18 09:46 Dose: 120 mg Folic Acid (Folic Acid -) 1 mg PO DAILY [facility] Last Admin: 09/09/18 09:46 Dose: 1 mg Hydralazine HCl (Apresoline -) 100 mg PO TID [facility] Last Admin: 09/09/18 06:29 Dose: 100 mg Piperacillin Sod/Tazobactam (Sod 2.25 gm/ Dextrose) 50 mls @ 100 mls/hr IVPB Q8H-IV [facility]; Protocol Last Admin: 09/09/18 09:42 Dose: 100 mls/hr Insulin Aspart (Novolog Vial Sliding Scale -) 1 vial SQ TIDAC [facility]; Protocol Last Admin: 09/09/18 11:59 Dose: 4 units Insulin Detemir (Levemir Vial) 24 units SQ HS [facility] Last Admin: 09/08/18 21:11 Dose: 24 units Methylprednisolone Sodium Succinate (Solu-Medrol -) 40 mg IVPUSH DAILY [facility] Stop: 09/12/18 09:59 Last Admin: 09/09/18 09:43 Dose: 40 mg Mupirocin (Bactroban Ointment (For Decolonization) -) 1 applic NS BID [facility] Stop: 09/12/18 21:59 Last Admin: 09/09/18 09:53 Dose: 1 applic Pantoprazole Sodium (Protonix -) 40 mg PO DAILY [facility] Last Admin: 09/09/18 11:45 Dose: 40 mg Sodium Bicarbonate (Sodium Bicarbonate -) 650 mg PO BID [facility] Last Admin: 09/09/18 09:42 Dose: 650 mg Warfarin Sodium (Coumadin -) 6 mg PO DAILY@1800 [facility] Last Admin: 09/08/18 17:38 Dose: 6 mg ASSESSMENT AND PLAN: Acute Hypoxic Respiratory Failure Pneumonia Acute on Chronic Diastolic Heart Failure Atrial Fibrillation Pulmonary HTN CKD IV CAD HTN DM - continue antibiotics - continue medrol - inhaled bronchodilators standing and PRN - O2 to keep Spo2 >90% - BiPAP to assist in work of breathing - continue lasix - monitor urine output, creatinine - rate control - BP control - continue anticoagulation - can monitor on telemetry critical care time spent in reviewing chart, evaluating patient and formulating plan 35 min
--- NOTE | 2018-09-09 13:03 | PN ---
Progress Note, Physician History of Present Illness: patient stable no new issues - Current Medication List Current Medications: Active Medications Acetaminophen (Tylenol -) 650 mg PO Q4H PRN PRN Reason: FEVER Albuterol Sulfate (Ventolin 0.083% Nebulizer Soln -) 1 amp NEB Q4H PRN PRN Reason: SHORT OF BREATH/WHEEZING Albuterol/Ipratropium (Duoneb -) 1 amp NEB RQID [facility] Last Admin: 09/09/18 08:30 Dose: 1 amp Amlodipine Besylate (Norvasc -) 5 mg PO DAILY [facility] Last Admin: 09/09/18 09:42 Dose: 5 mg Budesonide/Formoterol Fumarate (Symbicort 160/4.5mcg -) 2 puff IH BID [facility] Last Admin: 09/09/18 09:52 Dose: 2 puff Chlorhexidine Gluconate (Hibiclens For Decolonization -) 1 applic TP HS [facility] Last Admin: 09/08/18 21:13 Dose: 1 applic Diltiazem HCl (Cardizem Cd -) 120 mg PO DAILY [facility] Last Admin: 09/09/18 09:46 Dose: 120 mg Folic Acid (Folic Acid -) 1 mg PO DAILY [facility] Last Admin: 09/09/18 09:46 Dose: 1 mg Hydralazine HCl (Apresoline -) 100 mg PO TID [facility] Last Admin: 09/09/18 06:29 Dose: 100 mg Piperacillin Sod/Tazobactam (Sod 2.25 gm/ Dextrose) 50 mls @ 100 mls/hr IVPB Q8H-IV [facility]; Protocol Last Admin: 09/09/18 09:42 Dose: 100 mls/hr Insulin Aspart (Novolog Vial Sliding Scale -) 1 vial SQ TIDAC [facility]; Protocol Last Admin: 09/09/18 11:59 Dose: 4 units Insulin Detemir (Levemir Vial) 24 units SQ HS [facility] Last Admin: 09/08/18 21:11 Dose: 24 units Methylprednisolone Sodium Succinate (Solu-Medrol -) 40 mg IVPUSH DAILY [facility] Stop: 09/12/18 09:59 Last Admin: 09/09/18 09:43 Dose: 40 mg Mupirocin (Bactroban Ointment (For Decolonization) -) 1 applic NS BID [facility] Stop: 09/12/18 21:59 Last Admin: 07/11/19 09:53 Dose: 1 applic Pantoprazole Sodium (Protonix -) 40 mg PO DAILY [facility] Last Admin: 09/09/18 11:45 Dose: 40 mg Sodium Bicarbonate (Sodium Bicarbonate -) 650 mg PO BID [facility] Last Admin: 09/09/18 09:42 Dose: 650 mg Warfarin Sodium (Coumadin -) 6 mg PO DAILY@1800 [facility] Last Admin: 09/08/18 17:38 Dose: 6 mg - Objective Vital Signs: Vital Signs Temperature 97.6 F 09/09/18 05:33 Pulse Rate 95 H 09/09/18 12:56 Respiratory Rate 31 H 09/09/18 12:56 Blood Pressure 210/65 H 09/09/18 12:56 O2 Sat by Pulse Oximetry (%) 97 09/09/18 12:32 Constitutional: Yes: No Distress, Calm Cardiovascular: Yes: S1, S2 Respiratory: Yes: Regular, CTA Bilaterally Gastrointestinal: Yes: Normal Bowel Sounds, Soft Musculoskeletal: Yes: WNL Extremities: Yes: WNL Neurological: Yes: Alert, Oriented Psychiatric: Yes: Alert, Oriented Labs: CBC, BMP 09/09/18 05:55 09/09/18 05:55 INR, PTT INR 2.59 (0.83-1.09) H 09/09/18 05:55 Assessment/Plan Acute Hypoxic Respiratory Failure Pneumonia Acute on Chronic Diastolic Heart Failure Atrial Fibrillation Pulmonary HTN CKD IV CAD HTN DM plan 'continue close watch resp support await for cx results to be back close watch' i would suggest getting and echo on her rest as per icu cc 40 min
[2018-09-09] MEDS ORDERED: SODIUM CHLORIDE 1,000 ML IV SCH (13:15)
--- NOTE | 2018-09-09 13:27 | PN ---
Progress Note (short form) - Note Progress Note: Renal follow up for CKD Pt seen and examined in the ICU awake and alert on NC O2 no acute complaints making urine via jarvis still has sob, no cp, abd pain, fever or chills Vital Signs Temperature 97.6 F 09/09/18 05:33 Pulse Rate 95 H 09/09/18 12:56 Respiratory Rate 31 H 09/09/18 12:56 Blood Pressure 210/65 H 09/09/18 12:56 O2 Sat by Pulse Oximetry (%) 97 09/09/18 12:32 Intake & Output 09/06/18 09/07/18 09/08/18 09/09/18 23:59 23:59 23:59 23:59 Intake Total 470 180 Output Total 2500 350 Balance -2030 -170 Weight 90.718 kg 101 kg 97.114 kg NAD awake and alert neck supple, no JVD RRR Dec BS, no rales soft NT/ND trace LE edema CBC, BMP 09/09/18 05:55 09/09/18 05:55 Current Medications Acetaminophen (Tylenol -) 650 mg PO Q4H PRN PRN Reason: FEVER Albuterol Sulfate (Ventolin 0.083% Nebulizer Soln -) 1 amp NEB Q4H PRN PRN Reason: SHORT OF BREATH/WHEEZING Albuterol/Ipratropium (Duoneb -) 1 amp NEB RQID [facility] Last Admin: 09/09/18 08:30 Dose: 1 amp Amlodipine Besylate (Norvasc -) 5 mg PO DAILY [facility] Last Admin: 09/09/18 09:42 Dose: 5 mg Budesonide/Formoterol Fumarate (Symbicort 160/4.5mcg -) 2 puff IH BID [facility] Last Admin: 09/09/18 09:52 Dose: 2 puff Chlorhexidine Gluconate (Hibiclens For Decolonization -) 1 applic TP HS [facility] Last Admin: 09/08/18 21:13 Dose: 1 applic Diltiazem HCl (Cardizem Cd -) 120 mg PO DAILY [facility] Last Admin: 09/09/18 09:46 Dose: 120 mg Folic Acid (Folic Acid -) 1 mg PO DAILY [facility] Last Admin: 09/09/18 09:46 Dose: 1 mg Hydralazine HCl (Apresoline -) 100 mg PO TID [facility] Last Admin: 09/09/18 13:07 Dose: 100 mg Piperacillin Sod/Tazobactam (Sod 2.25 gm/ Dextrose) 50 mls @ 100 mls/hr IVPB Q8H-IV [facility]; Protocol Last Admin: 09/09/18 09:42 Dose: 100 mls/hr Sodium Chloride (Normal Saline -) 1,000 mls @ 100 mls/hr IV ASDIR [facility] Stop: 09/09/18 23:14 Insulin Aspart (Novolog Vial Sliding Scale -) 1 vial SQ TIDAC [facility]; Protocol Last Admin: 09/09/18 11:59 Dose: 4 units Insulin Detemir (Levemir Vial) 24 units SQ HS [facility] Last Admin: 09/08/18 21:11 Dose: 24 units Methylprednisolone Sodium Succinate (Solu-Medrol -) 40 mg IVPUSH DAILY [facility] Stop: 09/12/18 09:59 Last Admin: 09/09/18 09:43 Dose: 40 mg Mupirocin (Bactroban Ointment (For Decolonization) -) 1 applic NS BID [facility] Stop: 09/12/18 21:59 Last Admin: 09/09/18 09:53 Dose: 1 applic Pantoprazole Sodium (Protonix -) 40 mg PO DAILY [facility] Last Admin: 09/09/18 11:45 Dose: 40 mg Sodium Bicarbonate (Sodium Bicarbonate -) 650 mg PO BID [facility] Last Admin: 09/09/18 09:42 Dose: 650 mg Warfarin Sodium (Coumadin -) 6 mg PO DAILY@1800 [facility] Last Admin: 09/08/18 17:38 Dose: 6 mg 77 year old woman with history of CKD stage 4/5 (baseline Cr 3.5), hypertension, COPD, CHF presented from home with SOB. #JOSE on CKD #acute dyspnea #COPD #CKD stage 4/5 with recent JOSE now resolved #CHF #Hypertension Cr matthew likely due to fluid shifts in setting of IV diuresis to get 1L of NS overt 12 hours today hold further diuretics no acute need for TAX AUDIT MANAGER continue steroids and BIPAP as per pulmonary continue present antihypertensives, no GLENDA/ARB given low eGFR dose all meds for CrCl < 10 no emergent indication for TAX AUDIT MANAGER Titrate BP meds to goal BP < 150/90 expect that BP may be higher today given she is on saline Thank you Tylor To DO
--- NOTE | 2018-09-09 13:49 | PN ---
Physical Exam: SUBJECTIVE: Patient seen and examined at bedside. No acute events overnight. Pt was required BiPAP intermittently throughout the night. She is now stabilized on NC O2. She endorses improved SOB and denies chest pain, dizziness, nausea, vomiting, fevers. OBJECTIVE: Vital Signs Period Temp Pulse Resp BP Sys/Renee Pulse Ox Last 24 Hr 97.6 F-101.0 F 69-95 14-31 112-210/45-87 94-100 GENERAL: The patient is awake, alert, and fully oriented, in no acute distress. Now on NC. HEAD: Normal with no signs of trauma. EYES: PERRL, extraocular movements intact, sclera anicteric, conjunctiva clear. No ptosis. ENT: Ears normal, nares patent, oropharynx clear without exudates, moist mucous membranes. NECK: Trachea midline, full range of motion, supple. LUNGS: Decreased breath sounds. Rales and crackles in BL kee R>L. Mildly improved from yesterday. HEART: Regular rate and rhythm, S1, S2. 2/6 murmur in RUSB ABDOMEN: Soft, nontender, nondistended, normoactive bowel sounds, no guarding, no rebound, no hepatosplenomegaly, no masses. EXTREMITIES: 2+ pulses, warm, well-perfused, 1+ edema in BL LE NEUROLOGICAL: Cranial nerves II through XII grossly intact. Normal speech, gait not observed. PSYCH: Normal mood, normal affect. SKIN: Warm, dry, normal turgor, no rashes or lesions noted Laboratory Results - last 24 hr CBC, BMP 09/09/18 05:55 09/09/18 05:55 Active Medications Acetaminophen (Tylenol -) 650 mg PO Q4H PRN PRN Reason: FEVER Albuterol Sulfate (Ventolin 0.083% Nebulizer Soln -) 1 amp NEB Q4H PRN PRN Reason: SHORT OF BREATH/WHEEZING Albuterol/Ipratropium (Duoneb -) 1 amp NEB RQID [facility] Last Admin: 09/09/18 08:30 Dose: 1 amp Amlodipine Besylate (Norvasc -) 5 mg PO DAILY [facility] Last Admin: 09/09/18 09:42 Dose: 5 mg Budesonide/Formoterol Fumarate (Symbicort 160/4.5mcg -) 2 puff IH BID [facility] Last Admin: 09/09/18 09:52 Dose: 2 puff Chlorhexidine Gluconate (Hibiclens For Decolonization -) 1 applic TP HS [facility] Last Admin: 09/08/18 21:13 Dose: 1 applic Diltiazem HCl (Cardizem Cd -) 120 mg PO DAILY [facility] Last Admin: 09/09/18 09:46 Dose: 120 mg Folic Acid (Folic Acid -) 1 mg PO DAILY [facility] Last Admin: 09/09/18 09:46 Dose: 1 mg Hydralazine HCl (Apresoline -) 100 mg PO TID [facility] Last Admin: 09/09/18 13:07 Dose: 100 mg Piperacillin Sod/Tazobactam (Sod 2.25 gm/ Dextrose) 50 mls @ 100 mls/hr IVPB Q8H-IV [facility]; Protocol Last Admin: 09/09/18 09:42 Dose: 100 mls/hr Sodium Chloride (Normal Saline -) 1,000 mls @ 100 mls/hr IV ASDIR [facility] Stop: 09/09/18 23:14 Insulin Aspart (Novolog Vial Sliding Scale -) 1 vial SQ TIDAC [facility]; Protocol Last Admin: 09/09/18 11:59 Dose: 4 units Insulin Detemir (Levemir Vial) 24 units SQ HS [facility] Last Admin: 09/08/18 21:11 Dose: 24 units Methylprednisolone Sodium Succinate (Solu-Medrol -) 40 mg IVPUSH DAILY [facility] Stop: 09/12/18 09:59 Last Admin: 09/09/18 09:43 Dose: 40 mg Mupirocin (Bactroban Ointment (For Decolonization) -) 1 applic NS BID [facility] Stop: 09/12/18 21:59 Last Admin: 09/09/18 09:53 Dose: 1 applic Pantoprazole Sodium (Protonix -) 40 mg PO DAILY [facility] Last Admin: 09/09/18 11:45 Dose: 40 mg Sodium Bicarbonate (Sodium Bicarbonate -) 650 mg PO BID [facility] Last Admin: 09/09/18 09:42 Dose: 650 mg Warfarin Sodium (Coumadin -) 6 mg PO DAILY@1800 [facility] Last Admin: 09/08/18 17:38 Dose: 6 mg ASSESSMENT/PLAN: Pt. is a 77 y.o. F w/ PMHx. of HTN, NIDDM, Afib(s/p ablation on Coumadin), LLE DVT, CHFpEF, DC( s/p catherization), CKD Stage 4, GERD, and over active bladder presents #Acute hypoxic respiratory failure 2/2 aspiration PNA CXR: congestive changes with BL upper lobe infiltrates Zosyn 2.25mg Q8H, pending blood cx (if pt does not improve, add Vanco per ID) Solumedrol 40mg IV push daily Pt being monitored on NC Continue duonebs prn Monitor ABG #CKD Stage 5 Cr: 4.3 (baseline 3.6); BUN: 82.3; eGFR: 14.65 (pt given one dose lasix yesterday) Nephro on board: hold lasix for now, start 1L NS infuse over 12hrs #Anemia Hgb deceasing (10.7-->9.5-->8.8) FOBT: Neg LDH: 247, haptoglobin pending Start on GI prophylaxis 40mg pantoprazole daily #Afib EKG: NSR, Q waves in V1, QTc: 450 Diltiazem 120mg Daily Continue warfarin 6.0 INR: 2.59, continue to monitor #CHFpEF BNP: 5214.1, continue to monitor Hold Lasix for now Echo (08/23/18) EF 60-65%. #HTN Hydralazine 100mg TID po Increase amlodipine to 10mg po daily #Pulmonary HTN Pulm. Art Pressure 27mm Hg on Echo in November 2018---> 33mmHg on Chest CT in March #IDDM Cont home meds Levemir 24units SQ HS, Sliding scale SQ TIDAC #FEN 1L NS infuse over 12 hours Routine BMP monitoring Initiate diet as tolerated #DVT Ppx. Coumadin 6.0mg #Dispo DC to tele Pt.'s daughter left her number ([phone] [place] [phone]) for updates Visit type - Emergency Visit Emergency Visit: No - New Patient This patient is new to me today: No - Critical Care Critical Care patient: Yes Total Critical Care Time (in minutes): 45 Critical Care Statement: The care of this patient involved high complexity decision making to prevent further life threatening deterioration of the patient 's condition and/or to evaluate & treat vital organ system(s) failure or risk of failure. ATTENDING PHYSICIAN STATEMENT I saw and evaluated the patient. I reviewed the resident's note and discussed the case with the resident. I agree with the resident's findings and plan as documented. SUBJECTIVE: OBJECTIVE: ASSESSMENT AND PLAN:
[2018-09-09] MEDS ORDERED: amLODIPine BESYLATE 5 MG TABLET (FP) PO ONE (15:00)
[2018-09-09] MEDS ORDERED: PT OWN MED DRAWER 7, Y5N ONE (17:17)
[2018-09-09] MEDS: WARFARIN NA 3 MG TABLET PO SCH (17:23)
[2018-09-09] MEDS: CHLORHEXIDINE GLUCONATE 4% CLEANSER FOR DECOLONIZATION TP SCH (21:08)
[2018-09-09] MEDS: INSULIN (LEVEMIR) 100 UNITS/ML UNITS SQ SCH (21:10)
[2018-09-10] MEDS ORDERED: LABETALOL HCL 5 MG/1 ML (100MG/20 ML VIAL) IVPUSH ONE (00:02)
[2018-09-10] MEDS ORDERED: DEXTROSE 5%-WATER - 50 ML IVPB ONE ×3 (01:42→17:20)
[2018-09-10] MEDS ORDERED: PIPERACILLIN/TAZOBACTAM 2.25 GM VIAL IVPB ONE ×3 (01:42→17:20)
[2018-09-10] MEDS: PIPERACILLIN/TAZOB 2.25 GM 2.25 GM in DEXTROSE 5%-WATER - 50 ML IVPB SCH ×3 (02:04→17:24)
[2018-09-10 06:11] LABS: BASO % 0.7 % (0-2.0); HEMATOCRIT 26.5 % (32.4-45.2); HEMOGLOBIN 8.6 GM/dL (10.7-15.3); LYMPH % 1.6 % (8-40); MCH 31.7 pg (25.7-33.7); MCHC 32.7 g/dl (32.0-36.0); MEAN PLT VOLUME 9.8 fl (7.5-11.1); MONO % 2.6 % (3.8-10.2); NEUT % 95.1 % (42.8-82.8); PLATELET COUNT 119 K/MM3 (134-434); RBC 2.73 M/mm3 (3.60-5.2); RDW 15.1 % (11.6-15.6); WHITE BLOOD COUNT 17.9 K/mm3 (4.0-10.0)
[2018-09-10] MEDS: INSULIN SLIDING SCALE (NOVOLOG) 1 VIAL SQ SCH ×3 (06:22→16:49)
[2018-09-10] MEDS: hydrALAZINE HCL 50 MG TABLET (FP) PO SCH ×3 (06:22→21:20)
[2018-09-10 07:18] LABS: INR 3.35 (0.83-1.09)
[2018-09-10] MEDS: ALBUTEROL SO4 2.5/IPRATROPIUM 0.5 INH SOL 3 ML VIAL.NEB. NEB SCH ×4 (07:30→21:18)
[2018-09-10 07:43] LABS: ALBUMIN 2.2 g/dl (3.4-5.0); BILIRUBIN,TOTAL 0.3 mg/dL (0.2-1); BLOOD UREA NITROGEN 91.8 mg/dL (7-18); CALCIUM 7.4 mg/dL (8.5-10.1); CREATININE 4.8 mg/dL (0.55-1.3); MAGNESIUM 2.4 mg/dL (1.8-2.4); PHOSPHOROUS 5.2 mg/dL (2.5-4.9); POTASSIUM 4.5 mmol/L (3.5-5.1); TOT PROT 5.2 g/dl (6.4-8.2)
[2018-09-10] MEDS: MUPIROCIN 2% TOPICAL OINTMENT FOR DECOLONIZATION NS SCH ×2 (09:52→21:21)
[2018-09-10] MEDS: SODIUM BICARBONATE 650 MG TABLET PO SCH ×2 (09:52→21:20)
[2018-09-10] MEDS: PANTOPRAZOLE 40 MG TABLET (FP) PO SCH (09:53)
[2018-09-10] MEDS: amLODIPine BESYLATE 10 MG TABLET (FP) PO SCH (09:53)
[2018-09-10] MEDS: FOLIC ACID 1 MG TABLET (FP) PO SCH (09:53)
[2018-09-10] MEDS: methylPREDNISolone NA SUCC 40 MG/1 ML VIAL IVPUSH SCH (09:54)
[2018-09-10] MEDS: BUDESONIDE/FORMETEROL FUMARATE 160/4.5 mcg INHALER IH SCH ×2 (10:10→21:21)
[2018-09-10] MEDS ORDERED: INSULIN (LEVEMIR) 100 UNITS/ML UNITS SQ SCH (10:30)
--- NOTE | 2018-09-10 11:38 | PN ---
Progress Note, Physician History of Present Illness: doing better still very tired breathing better - Current Medication List Current Medications: Active Medications Acetaminophen (Tylenol -) 650 mg PO Q4H PRN PRN Reason: FEVER Albuterol Sulfate (Ventolin 0.083% Nebulizer Soln -) 1 amp NEB Q4H PRN PRN Reason: SHORT OF BREATH/WHEEZING Albuterol/Ipratropium (Duoneb -) 1 amp NEB RQID [facility] Last Admin: 09/10/18 11:20 Dose: 1 amp Amlodipine Besylate (Norvasc -) 10 mg PO DAILY [facility] Last Admin: 09/10/18 09:53 Dose: 10 mg Budesonide/Formoterol Fumarate (Symbicort 160/4.5mcg -) 2 puff IH BID [facility] Last Admin: 09/10/18 10:10 Dose: 2 puff Chlorhexidine Gluconate (Hibiclens For Decolonization -) 1 applic TP [facility] Last Admin: 09/09/18 21:08 Dose: 1 applic Diltiazem HCl (Cardizem Cd -) 120 mg PO DAILY [facility] Last Admin: 09/10/18 09:53 Dose: 120 mg Folic Acid (Folic Acid -) 1 mg PO DAILY [facility] Last Admin: 09/10/18 09:53 Dose: 1 mg Hydralazine HCl (Apresoline -) 100 mg PO TID [facility] Last Admin: 09/10/18 06:22 Dose: 100 mg Piperacillin Sod/Tazobactam (Sod 2.25 gm/ Dextrose) 50 mls @ 100 mls/hr IVPB Q8H-IV [facility]; Protocol Last Admin: 09/10/18 09:54 Dose: 100 mls/hr Insulin Aspart (Novolog Vial Sliding Scale -) 1 vial SQ TIDAC [facility]; Protocol Last Admin: 09/10/18 06:22 Dose: 6 units Insulin Detemir (Levemir Vial) 24 units SQ HS [facility] Last Admin: 09/09/18 21:10 Dose: 24 units Insulin Detemir (Levemir Vial) 5 units SQ DAILY@0800 [facility] Methylprednisolone Sodium Succinate (Solu-Medrol -) 40 mg IVPUSH DAILY [facility] Stop: 09/12/18 09:59 Last Admin: 09/10/18 09:54 Dose: 40 mg Mupirocin (Bactroban Ointment (For Decolonization) -) 1 applic NS BID [facility] Stop: 09/12/18 21:59 Last Admin: 09/10/18 09:52 Dose: 1 applic Pantoprazole Sodium (Protonix -) 40 mg PO DAILY [facility] Last Admin: 09/10/18 09:53 Dose: 40 mg Sodium Bicarbonate (Sodium Bicarbonate -) 650 mg PO BID [facility] Last Admin: 09/10/18 09:52 Dose: 650 mg Warfarin Sodium (Coumadin -) 5 mg PO DAILY@1800 [facility] - Objective Vital Signs: Vital Signs Temperature 98.8 F 09/10/18 10:00 Pulse Rate 77 09/10/18 11:19 Respiratory Rate 25 H 09/10/18 10:00 Blood Pressure 153/50 L 09/10/18 10:00 O2 Sat by Pulse Oximetry (%) 99 09/10/18 11:19 Constitutional: Yes: No Distress, Calm Respiratory: Yes: On Nasal O2, Poor Air Entry (bases) Gastrointestinal: Yes: Normal Bowel Sounds, Soft Musculoskeletal: Yes: WNL Extremities: Yes: WNL Neurological: Yes: Alert, Oriented Psychiatric: Yes: Alert, Oriented Labs: CBC, BMP 09/10/18 05:55 09/10/18 05:55 INR, PTT INR 3.35 (0.83-1.09) H 09/10/18 05:55 Assessment/Plan Acute Hypoxic Respiratory Failure Pneumonia Acute on Chronic Diastolic Heart Failure Atrial Fibrillation Pulmonary HTN CKD IV CAD HTN DM plan 'continue close watch resp support cx results noted close watch' i would suggest getting and echo on her rest as per icu cc 35 min
--- NOTE | 2018-09-10 12:00 | PN ---
Physical Exam: SUBJECTIVE: Patient seen and examined at bedside. Was on bipap overnight, now on NC and comfortable. OBJECTIVE: Vital Signs Period Temp Pulse Resp BP Sys/Renee Pulse Ox Last 24 Hr 97.9 F-98.8 F 61-95 14-31 146-210/50-65 94-99 GENERAL: A&Ox3, no acute distress EYES: PERRLA, EOMI ENT: Dry mucus membranes NECK: mild JVD noted on exam LUNGS: coarse breath sounds, wheezes noted on exam HEART: RRR, no murmurs ABDOMEN: Soft, nontender, BS present MUSCULOSKELETAL: No CVA Tenderness EXTREMITIES: 2+ pulses, 1+ edema noted bilaterally NEUROLOGICAL: Cranial nerves II-XII intact. Laboratory Results - last 24 hr 09/09/18 09/09/18 09/09/18 11:12 15:25 17:10 WBC RBC Hgb Hct MCV MCH MCHC RDW Plt Count MPV Absolute Neuts (auto) Neutrophils % Lymphocytes % Monocytes % Eosinophils % Basophils % Nucleated RBC % Haptoglobin 451 H PT with INR INR Sodium Potassium Chloride Carbon Dioxide Anion Gap BUN Creatinine Est GFR (CKD-EPI)AfAm Est GFR (CKD-EPI)NonAf POC Glucometer 388 Random Glucose Calcium Phosphorus Magnesium Total Bilirubin AST ALT Alkaline Phosphatase LD Total 260 H Total Protein Albumin 09/09/18 09/10/18 09/10/18 21:15 05:53 05:55 WBC 17.9 H RBC 2.73 L Hgb 8.6 L Hct 26.5 L MCV 97.0 H MCH 31.7 MCHC 32.7 RDW 15.1 Plt Count 119 L MPV 9.8 Absolute Neuts (auto) 17.1 H Neutrophils % 95.1 H Lymphocytes % 1.6 L D Monocytes % 2.6 L Eosinophils % 0.0 Basophils % 0.7 D Nucleated RBC % 0 Haptoglobin PT with INR INR Sodium Potassium Chloride Carbon Dioxide Anion Gap BUN Creatinine Est GFR (CKD-EPI)AfAm Est GFR (CKD-EPI)NonAf POC Glucometer 322 279 Random Glucose Calcium Phosphorus Magnesium Total Bilirubin AST ALT Alkaline Phosphatase LD Total Total Protein Albumin 09/10/18 09/10/18 05:55 05:55 WBC RBC Hgb Hct MCV MCH MCHC RDW Plt Count MPV Absolute Neuts (auto) Neutrophils % Lymphocytes % Monocytes % Eosinophils % Basophils % Nucleated RBC % Haptoglobin PT with INR 40.00 H INR 3.35 H Sodium 140 Potassium 4.5 Chloride 109 H Carbon Dioxide 21 Anion Gap 10 BUN 91.8 H Creatinine 4.8 H Est GFR (CKD-EPI)AfAm 9.31 Est GFR (CKD-EPI)NonAf 8.04 POC Glucometer Random Glucose 300 H Calcium 7.4 L Phosphorus 5.2 H Magnesium 2.4 Total Bilirubin 0.3 AST 8 L ALT 21 Alkaline Phosphatase 41 L LD Total Total Protein 5.2 L Albumin 2.2 L Active Medications Generic Name Dose Route Start Last Admin Trade Name Freq PRN Reason Stop Dose Admin Acetaminophen 650 mg 09/08/18 19:55 Tylenol - PO Q4H PRN FEVER Albuterol Sulfate 1 amp 09/07/18 21:00 Ventolin 0.083% Nebulizer Soln - NEB Q4H PRN SHORT OF BREATH/WHEEZING Albuterol/Ipratropium 1 amp 09/08/18 08:00 09/10/18 11:20 Duoneb - NEB 1 amp RQID [facility] Administration Amlodipine Besylate 10 mg 09/10/18 10:00 09/10/18 09:53 Norvasc - PO 10 mg DAILY [facility] Administration Budesonide/Formoterol Fumarate 2 puff 09/07/18 22:00 09/10/18 10:10 Symbicort 160/4.5mcg - IH 2 puff BID [facility] Administration Chlorhexidine Gluconate 1 applic 09/07/18 22:00 09/09/18 21:08 Hibiclens For Decolonization - TP 1 applic HS [facility] Administration Diltiazem HCl 120 mg 09/08/18 10:00 09/10/18 09:53 Cardizem Cd - PO 120 mg DAILY [facility] Administration Folic Acid 1 mg 09/08/18 10:00 09/10/18 09:53 Folic Acid - PO 1 mg DAILY [facility] Administration Hydralazine HCl 100 mg 09/07/18 22:00 09/10/18 06:22 Apresoline - PO 100 mg TID [facility] Administration Piperacillin Sod/Tazobactam 50 mls @ 100 mls/hr 09/07/18 18:00 09/10/18 09:54 Sod 2.25 gm/ Dextrose IVPB 100 mls/hr Q8H-IV [facility] Administration Protocol Insulin Aspart 1 vial 09/08/18 16:30 09/10/18 06:22 Novolog Vial Sliding Scale - SQ 6 units TIDAC [facility] Administration Protocol Insulin Detemir 24 units 09/08/18 22:00 09/09/18 21:10 Levemir Vial SQ 24 units HS [facility] Administration Insulin Detemir 5 units 09/10/18 10:30 09/10/18 10:45 Levemir Vial SQ 5 units DAILY@0800 [facility] Administration Methylprednisolone Sodium Succinate 40 mg 09/08/18 10:00 09/10/18 09:54 Solu-Medrol - IVPUSH 09/12/18 09:59 40 mg DAILY [facility] Administration Mupirocin 1 applic 09/07/18 22:00 09/10/18 09:52 Bactroban Ointment (For Decolonization) - NS 09/12/18 21:59 1 applic BID [facility] Administration Pantoprazole Sodium 40 mg 09/09/18 10:00 09/10/18 09:53 Protonix - PO 40 mg DAILY [facility] Administration Sodium Bicarbonate 650 mg 09/07/18 22:00 09/10/18 09:52 Sodium Bicarbonate - PO 650 mg BID [facility] Administration Warfarin Sodium 5 mg 09/10/18 18:00 Coumadin - PO DAILY@1800 [facility] ASSESSMENT/PLAN: Madeline Lorenzo is a 77 year old female with a PMHx of HTN, NIDDM, Afib(s/p ablation on Coumadin), LLE DVT, CHFpEF, NE( s/p catherization), CKD Stage 4, GERD, and over active bladder who was admitted to the ICU after developing hypoxic respiratory distress and CHF decompensation. NEUROLOGIC -stable -awake and alert, no acute issues CARDIOLOGY -continue home hydralazine -continue home cardizem -continue amlodipine 10 -CXR showing improvement -continue to monitor volume status -Is/Os, daily weights -echo from 08/23/18 showing preserved HF with preserved ejection fraction, grade 1 diastolic dysfunction -warfarin decreased to 5 RESPIRATORY -currently on NC 2L -BiPAP as needed, was needed overnight -Duonebs qid and q4h prn -continue home Symbicort -SoluMedrol 40mg IV daily -zosyn RENAL -Dr. To consulted -lasix held due to tenuous volume status and elevated creatinine -continue home sodium bicarbonate GASTROINTESTINAL -Protonix prophylaxis while patient on steroids GENITOURINARY -no acute issues INFECTIOUS DISEASE -zosyn -Dr. Ashford consulted, recs appreciated ENDOCRINE -BGM ACHS -Levemir -ISS MUSCULOSKELETAL -physical therapy PSYCHIATRY -no acute issues F/E/N -continue to monitor electrolytes and replete as necessary -renal/diabetic diet PROPHYLAXIS -on warfarin -Protonix CODE -full code DISPO -stable for transfer to telemetry Visit type - Emergency Visit Emergency Visit: No - New Patient This patient is new to me today: No - Critical Care Critical Care patient: Yes Total Critical Care Time (in minutes): 40 Critical Care Statement: The care of this patient involved high complexity decision making to prevent further life threatening deterioration of the patient 's condition and/or to evaluate & treat vital organ system(s) failure or risk of failure. ATTENDING PHYSICIAN STATEMENT I saw and evaluated the patient. I reviewed the resident's note and discussed the case with the resident. I agree with the resident's findings and plan as documented. SUBJECTIVE: OBJECTIVE: ASSESSMENT AND PLAN:
[2018-09-10] MEDS ORDERED: SODIUM CHLORIDE 1,000 ML IV SCH (12:30)
--- NOTE | 2018-09-10 12:31 | PN ---
Progress Note (short form) - Note Progress Note: Renal follow up for CKD Pt seen and examined in the ICU awake and alert on NC O2 no acute complaints making urine via jarvis still has sob, no cp, abd pain, fever or chills Vital Signs Temperature 98.8 F 09/10/18 10:00 Pulse Rate 78 09/10/18 12:00 Respiratory Rate 21 H 09/10/18 12:00 Blood Pressure 181/56 H 09/10/18 12:00 O2 Sat by Pulse Oximetry (%) 99 09/10/18 11:19 Intake & Output 09/07/18 09/08/18 09/09/18 09/10/18 23:59 23:59 23:59 23:59 Intake Total 495 557 3292 Output Total 2500 1200 400 Balance -2030 -800 650 Weight 90.718 kg 101 kg 97.069 kg 97.976 kg NAD RRR Dec BS, no rales soft NT/ND no LE or sacral edema CBC, BMP 09/10/18 05:55 09/10/18 05:55 Current Medications Acetaminophen (Tylenol -) 650 mg PO Q4H PRN PRN Reason: FEVER Albuterol Sulfate (Ventolin 0.083% Nebulizer Soln -) 1 amp NEB Q4H PRN PRN Reason: SHORT OF BREATH/WHEEZING Albuterol/Ipratropium (Duoneb -) 1 amp NEB RQID [facility] Last Admin: 09/10/18 11:20 Dose: 1 amp Amlodipine Besylate (Norvasc -) 10 mg PO DAILY [facility] Last Admin: 09/10/18 09:53 Dose: 10 mg Budesonide/Formoterol Fumarate (Symbicort 160/4.5mcg -) 2 puff IH BID [facility] Last Admin: 09/10/18 10:10 Dose: 2 puff Chlorhexidine Gluconate (Hibiclens For Decolonization -) 1 applic TP HS [facility] Last Admin: 09/09/18 21:08 Dose: 1 applic Diltiazem HCl (Cardizem Cd -) 120 mg PO DAILY [facility] Last Admin: 09/10/18 09:53 Dose: 120 mg Folic Acid (Folic Acid -) 1 mg PO DAILY [facility] Last Admin: 09/10/18 09:53 Dose: 1 mg Hydralazine HCl (Apresoline -) 100 mg PO TID [facility] Last Admin: 09/10/18 06:22 Dose: 100 mg Piperacillin Sod/Tazobactam (Sod 2.25 gm/ Dextrose) 50 mls @ 100 mls/hr IVPB Q8H-IV [facility]; Protocol Last Admin: 09/10/18 09:54 Dose: 100 mls/hr Sodium Chloride (Normal Saline -) 1,000 mls @ 83 mls/hr IV ASDIR [facility] Stop: 09/11/18 06:00 Insulin Aspart (Novolog Vial Sliding Scale -) 1 vial SQ TIDAC [facility]; Protocol Last Admin: 09/10/18 06:22 Dose: 6 units Insulin Detemir (Levemir Vial) 24 units SQ HS [facility] Last Admin: 09/09/18 21:10 Dose: 24 units Insulin Detemir (Levemir Vial) 5 units SQ DAILY@0800 [facility] Last Admin: 09/10/18 10:45 Dose: 5 units Methylprednisolone Sodium Succinate (Solu-Medrol -) 40 mg IVPUSH DAILY [facility] Stop: 09/12/18 09:59 Last Admin: 09/10/18 09:54 Dose: 40 mg Mupirocin (Bactroban Ointment (For Decolonization) -) 1 applic NS BID [facility] Stop: 09/12/18 21:59 Last Admin: 09/10/18 09:52 Dose: 1 applic Pantoprazole Sodium (Protonix -) 40 mg PO DAILY [facility] Last Admin: 09/10/18 09:53 Dose: 40 mg Sodium Bicarbonate (Sodium Bicarbonate -) 650 mg PO BID [facility] Last Admin: 09/10/18 09:52 Dose: 650 mg Warfarin Sodium (Coumadin -) 5 mg PO DAILY@1800 [facility] 77 year old woman with history of CKD stage 4/5 (baseline Cr 3.5), hypertension, COPD, CHF presented from home with SOB. #JOSE on CKD #acute dyspnea #COPD #CKD stage 4/5 with recent JOSE now resolved #CHF #Hypertension BUN/Cr remains elevated, however pt is non-oliguric tolerated IVF well yesterday, CXR today shows no effusion and lungs clear on exam will continue isotonic saline for now hold further diuretics no acute need for [employer] continue steroids and BIPAP as per pulmonary continue present antihypertensives, no GLENDA/ARB given low eGFR dose all meds for CrCl < 10 no emergent indication for [employer] Titrate BP meds to goal BP < 150/90 can consider changing amlodipine to Nifedpne ER to obtain better BP control Thank you Tylor To DO
[2018-09-10 12:32] LABS: ANISOCYTOSIS 1+; MACROCYTOSIS 1+; OVALOCYTE 1+; PLATELET ESTIMATE DECREASED
--- NOTE | 2018-09-10 12:33 | PN ---
Teaching Attending Note Name of Resident: Az Robles ATTENDING PHYSICIAN STATEMENT I saw and evaluated the patient. I reviewed the resident's note and discussed the case with the resident. I agree with the resident's findings and plan as documented. SUBJECTIVE: Patient seen and examined in the ICU. Breathing slowly improving but not at baseline. Generalized malaise and fatigue. Intake & Output 09/07/18 09/08/18 09/09/18 09/10/18 23:59 23:59 23:59 23:59 Intake Total 153 290 2263 Output Total 2500 1200 400 Balance -2030 -800 650 Weight 200 lb 222 lb 10.67 oz 214 lb 216 lb Last Vital Signs Temp Pulse Resp BP Pulse Ox 98.8 F 78 21 H 181/56 H 99 09/10/18 10:00 09/10/18 12:00 09/10/18 12:00 09/10/18 12:00 09/10/18 11:19 Active Medications Acetaminophen (Tylenol -) 650 mg PO Q4H PRN PRN Reason: FEVER Albuterol Sulfate (Ventolin 0.083% Nebulizer Soln -) 1 amp NEB Q4H PRN PRN Reason: SHORT OF BREATH/WHEEZING Albuterol/Ipratropium (Duoneb -) 1 amp NEB RQID [facility] Last Admin: 09/10/18 11:20 Dose: 1 amp Amlodipine Besylate (Norvasc -) 10 mg PO DAILY [facility] Last Admin: 09/10/18 09:53 Dose: 10 mg Budesonide/Formoterol Fumarate (Symbicort 160/4.5mcg -) 2 puff IH BID [facility] Last Admin: 09/10/18 10:10 Dose: 2 puff Chlorhexidine Gluconate (Hibiclens For Decolonization -) 1 applic TP HS [facility] Last Admin: 09/09/18 21:08 Dose: 1 applic Diltiazem HCl (Cardizem Cd -) 120 mg PO DAILY [facility] Last Admin: 09/10/18 09:53 Dose: 120 mg Folic Acid (Folic Acid -) 1 mg PO DAILY [facility] Last Admin: 09/10/18 09:53 Dose: 1 mg Hydralazine HCl (Apresoline -) 100 mg PO TID [facility] Last Admin: 09/10/18 06:22 Dose: 100 mg Piperacillin Sod/Tazobactam (Sod 2.25 gm/ Dextrose) 50 mls @ 100 mls/hr IVPB Q8H-IV [facility]; Protocol Last Admin: 09/10/18 09:54 Dose: 100 mls/hr Sodium Chloride (Normal Saline -) 1,000 mls @ 83 mls/hr IV ASDIR [facility] Stop: 09/11/18 06:00 Insulin Aspart (Novolog Vial Sliding Scale -) 1 vial SQ TIDAC [facility]; Protocol Last Admin: 09/10/18 06:22 Dose: 6 units Insulin Detemir (Levemir Vial) 24 units SQ HS [facility] Last Admin: 09/09/18 21:10 Dose: 24 units Insulin Detemir (Levemir Vial) 5 units SQ DAILY@0800 [facility] Last Admin: 09/10/18 10:45 Dose: 5 units Methylprednisolone Sodium Succinate (Solu-Medrol -) 40 mg IVPUSH DAILY [facility] Stop: 09/12/18 09:59 Last Admin: 09/10/18 09:54 Dose: 40 mg Mupirocin (Bactroban Ointment (For Decolonization) -) 1 applic NS BID [facility] Stop: 09/12/18 21:59 Last Admin: 09/10/18 09:52 Dose: 1 applic Pantoprazole Sodium (Protonix -) 40 mg PO DAILY [facility] Last Admin: 09/10/18 09:53 Dose: 40 mg Sodium Bicarbonate (Sodium Bicarbonate -) 650 mg PO BID [facility] Last Admin: 09/10/18 09:52 Dose: 650 mg Warfarin Sodium (Coumadin -) 5 mg PO DAILY@1800 [facility] Gen: Mildly tachypneic at rest Heart: RRR Lung: scattered bilateral rhonchi, no wheeze Abd: soft, nontender Ext: no edema Laboratory Results - last 24 hr 09/09/18 09/09/18 09/09/18 11:12 15:25 17:10 WBC RBC Hgb Hct MCV MCH MCHC RDW Plt Count MPV Absolute Neuts (auto) Neutrophils % Lymphocytes % Monocytes % Eosinophils % Basophils % Nucleated RBC % Haptoglobin 451 H PT with INR INR Sodium Potassium Chloride Carbon Dioxide Anion Gap BUN Creatinine Est GFR (CKD-EPI)AfAm Est GFR (CKD-EPI)NonAf POC Glucometer 388 Random Glucose Calcium Phosphorus Magnesium Total Bilirubin AST ALT Alkaline Phosphatase LD Total 260 H Total Protein Albumin 09/09/18 09/10/18 09/10/18 21:15 05:53 05:55 WBC 17.9 H RBC 2.73 L Hgb 8.6 L Hct 26.5 L MCV 97.0 H MCH 31.7 MCHC 32.7 RDW 15.1 Plt Count 119 L MPV 9.8 Absolute Neuts (auto) 17.1 H Neutrophils % 95.1 H Lymphocytes % 1.6 L D Monocytes % 2.6 L Eosinophils % 0.0 Basophils % 0.7 D Nucleated RBC % 0 Haptoglobin PT with INR INR Sodium Potassium Chloride Carbon Dioxide Anion Gap BUN Creatinine Est GFR (CKD-EPI)AfAm Est GFR (CKD-EPI)NonAf POC Glucometer 322 279 Random Glucose Calcium Phosphorus Magnesium Total Bilirubin AST ALT Alkaline Phosphatase LD Total Total Protein Albumin 09/10/18 09/10/18 05:55 05:55 WBC RBC Hgb Hct MCV MCH MCHC RDW Plt Count MPV Absolute Neuts (auto) Neutrophils % Lymphocytes % Monocytes % Eosinophils % Basophils % Nucleated RBC % Haptoglobin PT with INR 40.00 H INR 3.35 H Sodium 140 Potassium 4.5 Chloride 109 H Carbon Dioxide 21 Anion Gap 10 BUN 91.8 H Creatinine 4.8 H Est GFR (CKD-EPI)AfAm 9.31 Est GFR (CKD-EPI)NonAf 8.04 POC Glucometer Random Glucose 300 H Calcium 7.4 L Phosphorus 5.2 H Magnesium 2.4 Total Bilirubin 0.3 AST 8 L ALT 21 Alkaline Phosphatase 41 L LD Total Total Protein 5.2 L Albumin 2.2 L ASSESSMENT AND PLAN: Acute Hypoxic Respiratory Failure Pneumonia Acute on Chronic Diastolic Heart Failure Atrial Fibrillation Pulmonary HTN CKD IV CAD HTN DM - continue antibiotics - continue medrol at the current dose - inhaled bronchodilators standing and PRN - O2 to keep Spo2 >90% - NIPPV to assist in work of breathing - Hold Lasix and volume resuscitation today and observe - monitor urine output, creatinine - rate control - BP control - continue anticoagulation - Cardiac telemetry monitoring Dr Garner
--- NOTE | 2018-09-10 13:31 | EKG ---
Test Reason : Blood Pressure : / mmHG Vent. Rate : 086 BPM Atrial Rate : 086 BPM P-R Int : 140 ms QRS Dur : 084 ms QT Int : 362 ms P-R-T Axes : 070 -23 087 degrees QTc Int : 433 ms NORMAL SINUS RHYTHM WITH SINUS ARRHYTHMIA SEPTAL INFARCT , AGE UNDETERMINED ABNORMAL ECG WHEN COMPARED WITH ECG OF 07-SEP-2018 12:44, PREMATURE VENTRICULAR COMPLEXES ARE NO LONGER PRESENT Confirmed by KAITY KAY MD ([id number]) on 09/10/2018 1:31:11 PM Referred By: Confirmed By:KAITY KAY MD
--- NOTE | 2018-09-10 13:42 | PN ---
Teaching Attending Note Name of Resident: Herminia Russell ATTENDING PHYSICIAN STATEMENT I saw and evaluated the patient. I reviewed the resident's note and discussed the case with the resident. I agree with the resident's findings and plan as documented. SUBJECTIVE: no fever or chills. urbina snot feel better . still SOB. no other complaints OBJECTIVE: NAD, awake, cooperative CV: RRR, 2/6 SM at RUSB. Lungs: b/l crackles at bases, better than yesterday. good air entry Ext : 1+ pitting edema on legs ASSESSMENT AND PLAN: 77 y/o lady with h/o CAD, s/p [place], AFib , HTN, diastolic CHF, pulm HTN, TREVON, DM , LLE DVT, CKD 5, GERD and other medical problems who was recently discharged after being treated for COPD, now she presented with fever and with SOB and was found to have b/l infiltrates with acute hypoxic resp failure 1- Acute hypoxic resp failure: due to b/l PNA and acute COPD exacerbation. cxray this am , with slight improvement compared to yesterday - cont zosyn. - cont to hold lasix. - cont breathing treatments. - cont steroids at current dose 2- HTN: cont HZN, cardizem and norvasc. now elevated due to steorids and fluids will adjust meds if needed. 3- H/o A fib: - cont cardizem - cont coumadin , decrease dose to 5 mg 4- DM: cont levemir 24 units HS, and add 10 units in am . Cont SSI 5- JOSE on CKD 5: Cr is worse today. patient does not look fluid overloaded . - started on IVF, will monitor closely. - monitor renal function and volume status. Dispo: HLOC.
--- NOTE | 2018-09-10 14:10 | PN ---
Physical Exam: SUBJECTIVE: Patient seen and examined at bedside. Pt had elevated BP at night and was given one dose of labetolol. Pt required BiPAP consistently throughout the night. She is now stabilized on NC O2. She endorses a new dry cough and increased SOB, especially when she sits up. She denies chest pain, dizziness, nausea, vomiting, fevers. OBJECTIVE: Vital Signs Period Temp Pulse Resp BP Sys/Renee Pulse Ox Last 24 Hr 97.9 F-98.8 F 61-90 14-26 146-196/50-71 94-99 GENERAL: The patient is awake, alert, and fully oriented, in no acute distress. Now on NC. HEAD: Normal with no signs of trauma. EYES: PERRL, extraocular movements intact, sclera anicteric, conjunctiva clear. No ptosis. ENT: Ears normal, nares patent, oropharynx clear without exudates, moist mucous membranes. NECK: Trachea midline, full range of motion, supple. LUNGS: Decreased breath sounds. Rales and crackles at BL base R>L. Mildly improved from yesterday. HEART: Regular rate and rhythm, S1, S2. 2/6 murmur in RUSB ABDOMEN: Soft, nontender, nondistended, normoactive bowel sounds, no guarding, no rebound, no hepatosplenomegaly, no masses. EXTREMITIES: 2+ pulses, warm, well-perfused, 1+ pitting edema in BL LE NEUROLOGICAL: Cranial nerves II through XII grossly intact. Normal speech, gait not observed. PSYCH: Normal mood, normal affect. SKIN: Warm, dry, normal turgor, no rashes or lesions noted Laboratory Results - last 24 hr CBC, BMP 09/10/18 05:55 09/10/18 05:55 Active Medications Acetaminophen (Tylenol -) 650 mg PO Q4H PRN PRN Reason: FEVER Albuterol Sulfate (Ventolin 0.083% Nebulizer Soln -) 1 amp NEB Q4H PRN PRN Reason: SHORT OF BREATH/WHEEZING Albuterol/Ipratropium (Duoneb -) 1 amp NEB RQID [facility] Last Admin: 09/10/18 11:20 Dose: 1 amp Amlodipine Besylate (Norvasc -) 10 mg PO DAILY [facility] Last Admin: 09/10/18 09:53 Dose: 10 mg Budesonide/Formoterol Fumarate (Symbicort 160/4.5mcg -) 2 puff IH BID [facility] Last Admin: 09/10/18 10:10 Dose: 2 puff Chlorhexidine Gluconate (Hibiclens For Decolonization -) 1 applic TP HS [facility] Last Admin: 09/09/18 21:08 Dose: 1 applic Diltiazem HCl (Cardizem Cd -) 120 mg PO DAILY [facility] Last Admin: 09/10/18 09:53 Dose: 120 mg Folic Acid (Folic Acid -) 1 mg PO DAILY [facility] Last Admin: 09/10/18 09:53 Dose: 1 mg Hydralazine HCl (Apresoline -) 100 mg PO TID [facility] Last Admin: 09/10/18 13:28 Dose: 100 mg Piperacillin Sod/Tazobactam (Sod 2.25 gm/ Dextrose) 50 mls @ 100 mls/hr IVPB Q8H-IV [facility]; Protocol Last Admin: 09/10/18 09:54 Dose: 100 mls/hr Sodium Chloride (Normal Saline -) 1,000 mls @ 83 mls/hr IV ASDIR [facility] Stop: 09/11/18 06:00 Last Admin: 09/10/18 12:41 Dose: 83 mls/hr Insulin Aspart (Novolog Vial Sliding Scale -) 1 vial SQ TIDAC [facility]; Protocol Last Admin: 09/10/18 12:40 Dose: 6 units Insulin Detemir (Levemir Vial) 24 units SQ HS [facility] Last Admin: 09/09/18 21:10 Dose: 24 units Insulin Detemir (Levemir Vial) 10 units SQ DAILY@0800 [facility] Methylprednisolone Sodium Succinate (Solu-Medrol -) 40 mg IVPUSH DAILY [facility] Stop: 09/12/18 09:59 Last Admin: 09/10/18 09:54 Dose: 40 mg Mupirocin (Bactroban Ointment (For Decolonization) -) 1 applic NS BID [facility] Stop: 09/12/18 21:59 Last Admin: 09/10/18 09:52 Dose: 1 applic Pantoprazole Sodium (Protonix -) 40 mg PO DAILY [facility] Last Admin: 09/10/18 09:53 Dose: 40 mg Sodium Bicarbonate (Sodium Bicarbonate -) 650 mg PO BID [facility] Last Admin: 09/10/18 09:52 Dose: 650 mg Warfarin Sodium (Coumadin -) 5 mg PO DAILY@1800 [facility] ASSESSMENT/PLAN: Pt. is a 77 y.o. F w/ PMHx. of HTN, NIDDM, Afib(s/p ablation on Coumadin), LLE DVT, CHFpEF, [place]( s/p catherization), CKD Stage 4, GERD, and over active bladder presents #Acute hypoxic respiratory failure 2/2 aspiration PNA CXR: resolving upper lobe infiltrate Cont Zosyn 2.25mg Q8H (Day 4) Solumedrol 40mg IV push daily and duonebs prn Pt being monitored on NC #JOSE on CKD Stage 5 Cr: 4.8 (baseline 3.6); BUN: 91.8; eGFR: 14.65 (pt given one dose lasix 2 days ago) Pt does not appear fluid overloaded, cont to monitor volume status Nephro on board: started on gentle IVF NS 83ml/hr #Anemia Hgb deceasing (10.7-->9.5-->8.8-->8.6)) FOBT: Neg LDH: 247, haptoglobin 451, ruled out hemolyzing GI prophylaxis 40mg pantoprazole daily #Afib EKG: NSR, Q waves in V1, QTc: 450 Diltiazem 120mg Daily INR: 3.35 Decrease warfarin from 6.0-->5.0 #IDDM Glucose levels poorly controlled Sliding scale SQ TIDAC, Levemir 24units SQ HS, add 10 units in am #CHFpEF BNP: 5214.1, continue to monitor Hold Lasix for now Echo (08/23/18) EF 60-65%. #HTN Hydralazine 100mg TID po Amlodipine to 10mg po daily #FEN Started on gentle IVF NS 83ml/hr, per nephro Routine BMP monitoring Initiate diet as tolerated #DVT Ppx. Coumadin 5.0mg #Dispo DC to tele Pt.'s daughter left her number ([phone] [place] [phone]) for updates Visit type - Emergency Visit Emergency Visit: No - New Patient This patient is new to me today: No - Critical Care Critical Care patient: Yes Total Critical Care Time (in minutes): 45 Critical Care Statement: The care of this patient involved high complexity decision making to prevent further life threatening deterioration of the patient 's condition and/or to evaluate & treat vital organ system(s) failure or risk of failure. ATTENDING PHYSICIAN STATEMENT I saw and evaluated the patient. I reviewed the resident's note and discussed the case with the resident. I agree with the resident's findings and plan as documented. SUBJECTIVE: OBJECTIVE: ASSESSMENT AND PLAN:
[2018-09-10] MEDS ORDERED: WARFARIN NA 5 MG TABLET (UD) PO SCH (18:00)
[2018-09-10] MEDS: INSULIN (LEVEMIR) 100 UNITS/ML UNITS SQ SCH (21:36)
[2018-09-10] MEDS: CHLORHEXIDINE GLUCONATE 4% CLEANSER FOR DECOLONIZATION TP SCH (21:44)
[2018-09-11] MEDS ORDERED: DEXTROSE 5%-WATER - 50 ML IVPB ONE ×3 (02:40→17:08)
[2018-09-11] MEDS ORDERED: PIPERACILLIN/TAZOBACTAM 2.25 GM VIAL IVPB ONE ×3 (02:40→17:08)
[2018-09-11] MEDS: PIPERACILLIN/TAZOB 2.25 GM 2.25 GM in DEXTROSE 5%-WATER - 50 ML IVPB SCH ×3 (02:41→17:19)
[2018-09-11] MEDS: hydrALAZINE HCL 50 MG TABLET (FP) PO SCH ×3 (06:23→21:23)
[2018-09-11] MEDS: INSULIN SLIDING SCALE (NOVOLOG) 1 VIAL SQ SCH ×3 (06:23→17:18)
[2018-09-11 06:25] LABS: INR 3.75 (0.83-1.09); PROTHROMBIN TIME (PATIENT) 44.9 SEC (9.7-13.0)
[2018-09-11] MEDS ORDERED: PT OWN MED DRAWER 7, Y5N ONE (06:37)
[2018-09-11 06:38] LABS: HEMATOCRIT 27.1 % (32.4-45.2); HEMOGLOBIN 8.8 GM/dL (10.7-15.3); MCH 31.7 pg (25.7-33.7); MCHC 32.4 g/dl (32.0-36.0); MEAN CELL VOLUME 97.9 fl (80-96); MEAN PLT VOLUME 10.1 fl (7.5-11.1); PLATELET COUNT 129 K/MM3 (134-434); RBC 2.77 M/mm3 (3.60-5.2); RDW 15.3 % (11.6-15.6); WHITE BLOOD COUNT 16.1 K/mm3 (4.0-10.0)
[2018-09-11] MEDS: ALBUTEROL SO4 2.5/IPRATROPIUM 0.5 INH SOL 3 ML VIAL.NEB. NEB SCH ×4 (07:35→21:05)
[2018-09-11 08:07] LABS: ALBUMIN 2.3 g/dl (3.4-5.0); BILIRUBIN,TOTAL 0.7 mg/dL (0.2-1); BLOOD UREA NITROGEN 101.4 mg/dL (7-18); CALCIUM 7.6 mg/dL (8.5-10.1); CREATININE 5.2 mg/dL (0.55-1.3); POTASSIUM 4.8 mmol/L (3.5-5.1); TOT PROT 5.3 g/dl (6.4-8.2)
--- NOTE | 2018-09-11 08:34 | PN ---
Teaching Attending Note Name of Resident: Herminia Russell ATTENDING PHYSICIAN STATEMENT I saw and evaluated the patient. I reviewed the resident's note and discussed the case with the resident. I agree with the resident's findings and plan as documented. SUBJECTIVE: No fever or chills. she feels better in term of her breathing. she used BIPAP at night. no diarrhea, has BMs. clear sputum production with cough OBJECTIVE: NAD, awake, pleasant, smiling CV: RRR, 2/6 SM at RUSB. Lungs: LLL crackles, good air enty. no wheezing Ext : 1+ pitting edema on legs . no erythema or tenderness ASSESSMENT AND PLAN: 77 y/o lady with h/o CAD, s/p [place], AFib , HTN, diastolic CHF, pulm HTN, TREVON, DM , LLE DVT, CKD 5, GERD and other medical problems who was recently discharged after being treated for COPD, now she presented with fever and with SOB and was found to have b/l infiltrates with acute hypoxic resp failure 1- Acute hypoxic resp failure: due to b/l PNA and acute COPD exacerbation. resp status has symptomatically improved,and lung exam continue to improve. - obtain cxray today - cont zosyn. - cont breathing treatments. - change Solu-Medrol to 30 mg of prednisone daily 2- HTN: still uncontrolled. cont HZN, and norvasc ( max doses urbina both ). change cardizem to labetalol 100 BID 3- H/o A fib: tele with short episodes of a fib - labetalol for now due to hypertension. - INR is supratherapeutic due to being on Abx. hold coumadin . follow INR 4- DM: cont levemir 24 units HS, and 10 units in am . sugar has improved and expect it to improve with decreasing steroids . Cont SSI 5- JOSE on CKD 5: Cr is worse today.BUN is elevated but she is also on steroids. patient does not look fluid overloaded . - will d/w renal about next step. Dispo: HLOC.
[2018-09-11] MEDS: INSULIN (LEVEMIR) 100 UNITS/ML UNITS SQ SCH ×2 (08:52→21:26)
--- NOTE | 2018-09-11 09:16 | PN ---
Physical Exam: SUBJECTIVE: Patient seen and examined at bedside. Pt used BiPAP consistently throughout the night. She is now stabilized comfortably on NC O2. She continues to complain of cough now with clear sputum. SOB has moderately improved. She denies chest pain, dizziness, nausea, vomiting, fevers. OBJECTIVE: Vital Signs Period Temp Pulse Resp BP Sys/Renee Pulse Ox Last 24 Hr 97.8 F-98.8 F 70-95 14-25 148-181/48-127 97-100 GENERAL: The patient is awake, alert, and fully oriented, in no acute distress. Now on NC. HEAD: Normal with no signs of trauma. EYES: PERRL, extraocular movements intact, sclera anicteric, conjunctiva clear. No ptosis. ENT: Ears normal, nares patent, oropharynx clear without exudates, moist mucous membranes. NECK: Trachea midline, full range of motion, supple. LUNGS: Decreased breath sounds. Coarse crackles at BL base. Improved from yesterday. HEART: Regular rate and rhythm, S1, S2. 2/6 murmur in RUSB ABDOMEN: Soft, nontender, nondistended, normoactive bowel sounds, no guarding, no rebound, no hepatosplenomegaly, no masses. EXTREMITIES: 2+ pulses, warm, well-perfused, 1+ pitting edema in BL LE. NEUROLOGICAL: Cranial nerves II through XII grossly intact. Normal speech, gait not observed. PSYCH: Normal mood, normal affect. SKIN: Warm, dry, normal turgor, no rashes or lesions noted Laboratory Results - last 24 hr CBC, BMP 09/11/18 05:09 09/11/18 05:16 Active Medications Acetaminophen (Tylenol -) 650 mg PO Q4H PRN PRN Reason: FEVER Albuterol Sulfate (Ventolin 0.083% Nebulizer Soln -) 1 amp NEB Q4H PRN PRN Reason: SHORT OF BREATH/WHEEZING Albuterol/Ipratropium (Duoneb -) 1 amp NEB RQID [facility] Last Admin: 09/11/18 07:35 Dose: 1 amp Amlodipine Besylate (Norvasc -) 10 mg PO DAILY [facility] Last Admin: 09/10/18 09:53 Dose: 10 mg Budesonide/Formoterol Fumarate (Symbicort 160/4.5mcg -) 2 puff IH BID [facility] Last Admin: 09/10/18 21:21 Dose: 2 puff Chlorhexidine Gluconate (Hibiclens For Decolonization -) 1 applic TP HS [facility] Last Admin: 09/10/18 21:44 Dose: 1 applic Folic Acid (Folic Acid -) 1 mg PO DAILY [facility] Last Admin: 09/10/18 09:53 Dose: 1 mg Hydralazine HCl (Apresoline -) 100 mg PO TID [facility] Last Admin: 09/11/18 06:23 Dose: 100 mg Piperacillin Sod/Tazobactam (Sod 2.25 gm/ Dextrose) 50 mls @ 100 mls/hr IVPB Q8H-IV [facility]; Protocol Last Admin: 09/11/18 02:41 Dose: 100 mls/hr Insulin Aspart (Novolog Vial Sliding Scale -) 1 vial SQ TIDAC [facility]; Protocol Last Admin: 09/11/18 06:23 Dose: 10 units Insulin Detemir (Levemir Vial) 24 units SQ HS [facility] Last Admin: 09/10/18 21:36 Dose: 24 units Insulin Detemir (Levemir Vial) 10 units SQ DAILY@0800 [facility] Last Admin: 09/11/18 08:52 Dose: 10 units Labetalol HCl (Normodyne -) 100 mg PO BID [facility] Mupirocin (Bactroban Ointment (For Decolonization) -) 1 applic NS BID [facility] Stop: 09/12/18 21:59 Last Admin: 09/10/18 21:21 Dose: 1 applic Pantoprazole Sodium (Protonix -) 40 mg PO DAILY [facility] Last Admin: 09/10/18 09:53 Dose: 40 mg Prednisone (Deltasone -) 30 mg PO DAILY [facility] Sodium Bicarbonate (Sodium Bicarbonate -) 650 mg PO BID [facility] Last Admin: 09/10/18 21:20 Dose: 650 mg ASSESSMENT/PLAN: Pt. is a 77 y.o. F w/ PMHx. of HTN, NIDDM, Afib(s/p ablation on Coumadin), LLE DVT, CHFpEF, [place]( s/p catherization), CKD Stage 4, GERD, and over active bladder presents ATTENDING PHYSICIAN STATEMENT I saw and evaluated the patient. I reviewed the resident's note and discussed the case with the resident. I agree with the resident's findings and plan as documented. SUBJECTIVE: OBJECTIVE: ASSESSMENT AND PLAN:
--- NOTE | 2018-09-11 09:25 | PN ---
Physical Exam: SUBJECTIVE: Patient seen and examined at bedside. Pt used BiPAP consistently throughout the night. She is now stabilized comfortably on NC O2. She continues to complain of cough, now with clear sputum. SOB improved from yesterday. She denies chest pain, dizziness, nausea, vomiting, fevers. OBJECTIVE: Vital Signs Period Temp Pulse Resp BP Sys/Renee Pulse Ox Last 24 Hr 97.8 F-98.8 F 70-95 14-25 148-181/48-127 97-100 GENERAL: The patient is awake, alert, and fully oriented, in no acute distress. Now on NC. HEAD: Normal with no signs of trauma. EYES: PERRL, extraocular movements intact, sclera anicteric, conjunctiva clear. No ptosis. ENT: Ears normal, nares patent, oropharynx clear without exudates, moist mucous membranes. NECK: Trachea midline, full range of motion, supple. LUNGS: Decreased breath sounds. Coarse crackles at BL bases. Improved from yesterday. HEART: Regular rate and rhythm, S1, S2. 2/6 murmur in RUSB ABDOMEN: Soft, nontender, nondistended, normoactive bowel sounds, no guarding, no rebound, no hepatosplenomegaly, no masses. EXTREMITIES: 2+ pulses, warm, well-perfused, 1+ pitting edema in BL LE NEUROLOGICAL: Cranial nerves II through XII grossly intact. Normal speech, gait not observed. PSYCH: Normal mood, normal affect. SKIN: Warm, dry, normal turgor, no rashes or lesions noted Laboratory Results - last 24 hr CBC, BMP 09/11/18 05:09 09/11/18 05:16 Active Medications Acetaminophen (Tylenol -) 650 mg PO Q4H PRN PRN Reason: FEVER Albuterol Sulfate (Ventolin 0.083% Nebulizer Soln -) 1 amp NEB Q4H PRN PRN Reason: SHORT OF BREATH/WHEEZING Albuterol/Ipratropium (Duoneb -) 1 amp NEB RQID [facility] Last Admin: 09/11/18 07:35 Dose: 1 amp Amlodipine Besylate (Norvasc -) 10 mg PO DAILY [facility] Last Admin: 09/10/18 09:53 Dose: 10 mg Budesonide/Formoterol Fumarate (Symbicort 160/4.5mcg -) 2 puff IH BID [facility] Last Admin: 09/10/18 21:21 Dose: 2 puff Chlorhexidine Gluconate (Hibiclens For Decolonization -) 1 applic TP HS [facility] Last Admin: 09/10/18 21:44 Dose: 1 applic Folic Acid (Folic Acid -) 1 mg PO DAILY [facility] Last Admin: 09/10/18 09:53 Dose: 1 mg Hydralazine HCl (Apresoline -) 100 mg PO TID [facility] Last Admin: 09/11/18 06:23 Dose: 100 mg Piperacillin Sod/Tazobactam (Sod 2.25 gm/ Dextrose) 50 mls @ 100 mls/hr IVPB Q8H-IV [facility]; Protocol Last Admin: 09/11/18 02:41 Dose: 100 mls/hr Insulin Aspart (Novolog Vial Sliding Scale -) 1 vial SQ TIDAC [facility]; Protocol Last Admin: 09/11/18 06:23 Dose: 10 units Insulin Detemir (Levemir Vial) 24 units SQ HS [facility] Last Admin: 09/10/18 21:36 Dose: 24 units Insulin Detemir (Levemir Vial) 10 units SQ DAILY@0800 [facility] Last Admin: 09/11/18 08:52 Dose: 10 units Labetalol HCl (Normodyne -) 100 mg PO BID [facility] Mupirocin (Bactroban Ointment (For Decolonization) -) 1 applic NS BID [facility] Stop: 09/12/18 21:59 Last Admin: 09/10/18 21:21 Dose: 1 applic Pantoprazole Sodium (Protonix -) 40 mg PO DAILY [facility] Last Admin: 09/10/18 09:53 Dose: 40 mg Prednisone (Deltasone -) 30 mg PO DAILY [facility] Sodium Bicarbonate (Sodium Bicarbonate -) 650 mg PO BID [facility] Last Admin: 09/10/18 21:20 Dose: 650 mg ASSESSMENT/PLAN: Pt. is a 77 y.o. F w/ PMHx. of HTN, NIDDM, Afib(s/p ablation on Coumadin), LLE DVT, CHFpEF, HI( s/p catherization), CKD Stage 4, GERD, and over active bladder presents with PNA. #Acute hypoxic respiratory failure 2/2 aspiration PNA CXR: resolving upper lobe infiltrate Cont Zosyn 2.25mg Q8H (Day 5) Decrease solumedrol to 30mg IV push daily, cont duonebs prn Pt being monitored on NC #JOSE on CKD Stage 5 Cr: 5.2 (baseline 3.6); BUN: 101.4; eGFR: 14.65, hold lasix Pt does not appear fluid overloaded, cont to monitor volume status Nephro on board, consider gentle fluids #Afib EKG: NSR, Q waves in V1, QTc: 450 Diltiazem 120mg changed to labetolol INR: 3.75, hold warfarin for now #HTN Hydralazine 100mg TID po Amlodipine to 10mg po daily Start labetolol 100mg BID #CHFpEF BNP: 5214.1, continue to monitor Hold Lasix for now Echo (08/23/18) EF 60-65%. #IDDM Glucose levels poorly controlled Sliding scale SQ TIDAC, Levemir 24units SQ HS and 10 units in am #Anemia Hgb deceasing (10.7-->9.5-->8.8-->8.6) FOBT: Neg LDH: 247, haptoglobin 451, ruled out hemolyzing GI prophylaxis 40mg pantoprazole daily #FEN Fluids as per nephro Routine BMP monitoring Initiate diet as tolerated #DVT Ppx. Warfarin held for now #Dispo DC to tele Pt.'s daughter left her number ([phone] OR [phone]) for updates Visit type - Emergency Visit Emergency Visit: No - New Patient This patient is new to me today: No - Critical Care Critical Care patient: Yes Total Critical Care Time (in minutes): 45 Critical Care Statement: The care of this patient involved high complexity decision making to prevent further life threatening deterioration of the patient 's condition and/or to evaluate & treat vital organ system(s) failure or risk of failure. ATTENDING PHYSICIAN STATEMENT I saw and evaluated the patient. I reviewed the resident's note and discussed the case with the resident. I agree with the resident's findings and plan as documented. SUBJECTIVE: OBJECTIVE: ASSESSMENT AND PLAN:
[2018-09-11] MEDS: predniSONE 10 MG TABLET (UD) PO SCH (09:34)
[2018-09-11] MEDS: amLODIPine BESYLATE 10 MG TABLET (FP) PO SCH (09:34)
[2018-09-11] MEDS: LABETALOL HCL 100 MG TABLET (FP) PO SCH ×2 (09:34→22:54)
[2018-09-11] MEDS: FOLIC ACID 1 MG TABLET (FP) PO SCH (09:34)
[2018-09-11] MEDS: PANTOPRAZOLE 40 MG TABLET (FP) PO SCH (09:35)
[2018-09-11] MEDS: SODIUM BICARBONATE 650 MG TABLET PO SCH ×2 (09:35→21:22)
[2018-09-11] MEDS: MUPIROCIN 2% TOPICAL OINTMENT FOR DECOLONIZATION NS SCH ×2 (09:36→21:24)
[2018-09-11] MEDS: BUDESONIDE/FORMETEROL FUMARATE 160/4.5 mcg INHALER IH SCH ×2 (09:36→21:24)
--- NOTE | 2018-09-11 12:07 | PN ---
Progress Note, Physician History of Present Illness: stable no new issues - Current Medication List Current Medications: Active Medications Acetaminophen (Tylenol -) 650 mg PO Q4H PRN PRN Reason: FEVER Albuterol Sulfate (Ventolin 0.083% Nebulizer Soln -) 1 amp NEB Q4H PRN PRN Reason: SHORT OF BREATH/WHEEZING Albuterol/Ipratropium (Duoneb -) 1 amp NEB RQID [facility] Last Admin: 09/11/18 11:27 Dose: 1 amp Amlodipine Besylate (Norvasc -) 10 mg PO DAILY [facility] Last Admin: 09/11/18 09:34 Dose: 10 mg Budesonide/Formoterol Fumarate (Symbicort 160/4.5mcg -) 2 puff IH BID [facility] Last Admin: 09/11/18 09:36 Dose: 2 puff Chlorhexidine Gluconate (Hibiclens For Decolonization -) 1 applic TP HS [facility] Last Admin: 09/10/18 21:44 Dose: 1 applic Folic Acid (Folic Acid -) 1 mg PO DAILY [facility] Last Admin: 09/11/18 09:34 Dose: 1 mg Hydralazine HCl (Apresoline -) 100 mg PO TID [facility] Last Admin: 09/11/18 06:23 Dose: 100 mg Piperacillin Sod/Tazobactam (Sod 2.25 gm/ Dextrose) 50 mls @ 100 mls/hr IVPB Q8H-IV [facility]; Protocol Last Admin: 09/11/18 09:33 Dose: 100 mls/hr Insulin Aspart (Novolog Vial Sliding Scale -) 1 vial SQ TIDAC [facility]; Protocol Last Admin: 09/11/18 06:23 Dose: 10 units Insulin Detemir (Levemir Vial) 24 units SQ HS [facility] Last Admin: 09/10/18 21:36 Dose: 24 units Insulin Detemir (Levemir Vial) 10 units SQ DAILY@0800 [facility] Last Admin: 09/11/18 08:52 Dose: 10 units Labetalol HCl (Normodyne -) 100 mg PO BID [facility] Last Admin: 09/11/18 09:34 Dose: 100 mg Mupirocin (Bactroban Ointment (For Decolonization) -) 1 applic NS BID [facility] Stop: 09/12/18 21:59 Last Admin: 09/11/18 09:36 Dose: 1 applic Pantoprazole Sodium (Protonix -) 40 mg PO DAILY [facility] Last Admin: 09/11/18 09:35 Dose: 40 mg Prednisone (Deltasone -) 30 mg PO DAILY [facility] Last Admin: 09/11/18 09:34 Dose: 30 mg Sodium Bicarbonate (Sodium Bicarbonate -) 650 mg PO BID [facility] Last Admin: 09/11/18 09:35 Dose: 650 mg - Objective Vital Signs: Vital Signs Temperature 98.8 F 09/11/18 10:00 Pulse Rate 73 09/11/18 12:00 Respiratory Rate 17 09/11/18 12:00 Blood Pressure 162/51 L 09/11/18 12:00 O2 Sat by Pulse Oximetry (%) 100 09/11/18 08:16 Constitutional: Yes: No Distress, Calm Cardiovascular: Yes: Regular Rate and Rhythm Respiratory: Yes: Regular, CTA Bilaterally Gastrointestinal: Yes: Normal Bowel Sounds, Soft Musculoskeletal: Yes: WNL Extremities: Yes: WNL Neurological: Yes: Alert, Oriented Psychiatric: Yes: Alert, Oriented Labs: CBC, BMP 09/11/18 05:09 09/11/18 05:16 INR, PTT INR 3.75 (0.83-1.09) H 09/11/18 05:09 Assessment/Plan Acute Hypoxic Respiratory Failure Pneumonia Acute on Chronic Diastolic Heart Failure Atrial Fibrillation Pulmonary HTN CKD IV CAD HTN DM plan 'continue close watch resp support cx results noted close watch' i would suggest getting and echo on her
--- NOTE | 2018-09-11 12:11 | PN ---
Progress Note (short form) - Note Progress Note: PULMONARY/CRITICAL CARE PROGRESS NOTE: SUBJECTIVE: Patient seen and examined in the ICU. Breathing comfortably on NC, was on NIPPV overnight Current Medications Acetaminophen (Tylenol -) 650 mg PO Q4H PRN PRN Reason: FEVER Albuterol Sulfate (Ventolin 0.083% Nebulizer Soln -) 1 amp NEB Q4H PRN PRN Reason: SHORT OF BREATH/WHEEZING Albuterol/Ipratropium (Duoneb -) 1 amp NEB RQID [facility] Last Admin: 09/11/18 11:27 Dose: 1 amp Amlodipine Besylate (Norvasc -) 10 mg PO DAILY [facility] Last Admin: 09/11/18 09:34 Dose: 10 mg Budesonide/Formoterol Fumarate (Symbicort 160/4.5mcg -) 2 puff IH BID [facility] Last Admin: 09/11/18 09:36 Dose: 2 puff Chlorhexidine Gluconate (Hibiclens For Decolonization -) 1 applic TP HS [facility] Last Admin: 09/10/18 21:44 Dose: 1 applic Folic Acid (Folic Acid -) 1 mg PO DAILY [facility] Last Admin: 09/11/18 09:34 Dose: 1 mg Hydralazine HCl (Apresoline -) 100 mg PO TID [facility] Last Admin: 09/11/18 06:23 Dose: 100 mg Piperacillin Sod/Tazobactam (Sod 2.25 gm/ Dextrose) 50 mls @ 100 mls/hr IVPB Q8H-IV [facility]; Protocol Last Admin: 09/11/18 09:33 Dose: 100 mls/hr Insulin Aspart (Novolog Vial Sliding Scale -) 1 vial SQ TIDAC [facility]; Protocol Last Admin: 09/11/18 06:23 Dose: 10 units Insulin Detemir (Levemir Vial) 24 units SQ HS [facility] Last Admin: 09/10/18 21:36 Dose: 24 units Insulin Detemir (Levemir Vial) 10 units SQ DAILY@0800 [facility] Last Admin: 09/11/18 08:52 Dose: 10 units Labetalol HCl (Normodyne -) 100 mg PO BID [facility] Last Admin: 09/11/18 09:34 Dose: 100 mg Mupirocin (Bactroban Ointment (For Decolonization) -) 1 applic NS BID [facility] Stop: 09/12/18 21:59 Last Admin: 09/11/18 09:36 Dose: 1 applic Pantoprazole Sodium (Protonix -) 40 mg PO DAILY [facility] Last Admin: 09/11/18 09:35 Dose: 40 mg Prednisone (Deltasone -) 30 mg PO DAILY [facility] Last Admin: 09/11/18 09:34 Dose: 30 mg Sodium Bicarbonate (Sodium Bicarbonate -) 650 mg PO BID [facility] Last Admin: 09/11/18 09:35 Dose: 650 mg Vital Signs Temp 98.8 F 09/11/18 10:00 Pulse 73 09/11/18 12:00 Resp 17 09/11/18 12:00 BP 162/51 L 09/11/18 12:00 Pulse Ox 100 09/11/18 08:16 Intake & Output 09/10/18 09/11/18 09/11/18 18:59 06:59 18:59 Intake Total 764 1063 Output Total 600 1400 Balance 164 -337 Weight 98.928 kg Intake: IV 664 913 Normal Saline - 1,000 ml 664 913 @ 83 mls/hr IV ASDIR [facility] Rx#:[id number] IVPB 100 50 Oral 100 Output: Urine 600 1400 Thrasher 600 1400 Other: Voiding Method Indwelling Catheter Indwelling Catheter Bowel Movement No No Weight Measurement Method Built in Bedscale EXAM: neuro: alert, comfortable HEENT: PERRL chest: clear lungs heart: RRR abd: soft, non-tender ext: no edema, warm skin: warm, dry ASSESSMENT AND PLAN: Acute Hypoxic Respiratory Failure Pneumonia Acute on Chronic Diastolic Heart Failure Atrial Fibrillation Pulmonary HTN CKD IV CAD HTN DM - continue antibiotics - prednisone taper - inhaled bronchodilators standing and PRN - O2 to keep Spo2 >90% - trial off NIPPV tonight - May need more lasix - monitor urine output, creatinine - rate control - BP control - continue anticoagulation - Cardiac telemetry monitoring Transfer to floor [facility] Pulm/Critical Care [employer]
--- NOTE | 2018-09-11 15:47 | PN ---
Progress Note (short form) - Note Progress Note: covering dr leary #JOSE on CKD #acute dyspnea #COPD #CKD stage 4/5 with recent JOSE now resolved #CHF #Hypertension Current Medications Acetaminophen (Tylenol -) 650 mg PO Q4H PRN PRN Reason: FEVER Albuterol Sulfate (Ventolin 0.083% Nebulizer Soln -) 1 amp NEB Q4H PRN PRN Reason: SHORT OF BREATH/WHEEZING Albuterol/Ipratropium (Duoneb -) 1 amp NEB RQID [facility] Last Admin: 09/11/18 11:27 Dose: 1 amp Amlodipine Besylate (Norvasc -) 10 mg PO DAILY [facility] Last Admin: 09/11/18 09:34 Dose: 10 mg Budesonide/Formoterol Fumarate (Symbicort 160/4.5mcg -) 2 puff IH BID [facility] Last Admin: 09/11/18 09:36 Dose: 2 puff Chlorhexidine Gluconate (Hibiclens For Decolonization -) 1 applic TP HS [facility] Last Admin: 09/10/18 21:44 Dose: 1 applic Folic Acid (Folic Acid -) 1 mg PO DAILY [facility] Last Admin: 09/11/18 09:34 Dose: 1 mg Hydralazine HCl (Apresoline -) 100 mg PO TID [facility] Last Admin: 09/11/18 13:35 Dose: 100 mg Piperacillin Sod/Tazobactam (Sod 2.25 gm/ Dextrose) 50 mls @ 100 mls/hr IVPB Q8H-IV [facility]; Protocol Last Admin: 09/11/18 09:33 Dose: 100 mls/hr Insulin Aspart (Novolog Vial Sliding Scale -) 1 vial SQ TIDAC [facility]; Protocol Last Admin: 09/11/18 12:25 Dose: 4 units Insulin Detemir (Levemir Vial) 24 units SQ HS [facility] Last Admin: 09/10/18 21:36 Dose: 24 units Insulin Detemir (Levemir Vial) 10 units SQ DAILY@0800 [facility] Last Admin: 09/11/18 08:52 Dose: 10 units Labetalol HCl (Normodyne -) 100 mg PO BID [facility] Last Admin: 09/11/18 09:34 Dose: 100 mg Mupirocin (Bactroban Ointment (For Decolonization) -) 1 applic NS BID [facility] Stop: 09/12/18 21:59 Last Admin: 09/11/18 09:36 Dose: 1 applic Pantoprazole Sodium (Protonix -) 40 mg PO DAILY [facility] Last Admin: 09/11/18 09:35 Dose: 40 mg Prednisone (Deltasone -) 30 mg PO DAILY [facility] Last Admin: 09/11/18 09:34 Dose: 30 mg Sodium Bicarbonate (Sodium Bicarbonate -) 650 mg PO BID [facility] Last Admin: 09/11/18 09:35 Dose: 650 mg Last Vital Signs Temp Pulse Resp BP Pulse Ox 98.3 F 66 20 132/59 L 99 09/11/18 14:00 09/11/18 14:00 09/11/18 14:00 09/11/18 14:00 09/11/18 10:00 CBC, BMP 09/11/18 05:09 09/11/18 05:16 IMP- jose renal function continues to worsen she has no symptoms related to renal failure no indication for hd so far she says she has said in the past that she would not want to go on dialysis she is familiar with the procedure from her sister being on this treatment she continues to be unwilling to have hd now if it becaomes indicated
[2018-09-11] MEDS: CHLORHEXIDINE GLUCONATE 4% CLEANSER FOR DECOLONIZATION TP SCH (21:25)
[2018-09-12] MEDS ORDERED: DEXTROSE 5%-WATER - 50 ML IVPB ONE ×3 (02:01→20:16)
[2018-09-12] MEDS ORDERED: PIPERACILLIN/TAZOBACTAM 2.25 GM VIAL IVPB ONE ×3 (02:01→20:16)
[2018-09-12] MEDS: PIPERACILLIN/TAZOB 2.25 GM 2.25 GM in DEXTROSE 5%-WATER - 50 ML IVPB SCH ×3 (02:05→20:20)
[2018-09-12] MEDS: hydrALAZINE HCL 50 MG TABLET (FP) PO SCH ×3 (06:19→22:05)
[2018-09-12 06:41] LABS: BASO % 0.1 % (0-2.0); HEMATOCRIT 25.3 % (32.4-45.2); HEMOGLOBIN 8.3 GM/dL (10.7-15.3); LYMPH % 4.8 % (8-40); MEAN PLT VOLUME 9.8 fl (7.5-11.1); MONO % 5.1 % (3.8-10.2); PLATELET COUNT 145 K/MM3 (134-434); RBC 2.61 M/mm3 (3.60-5.2); RDW 15.2 % (11.6-15.6); WHITE BLOOD COUNT 13.7 K/mm3 (4.0-10.0)
[2018-09-12] MEDS: INSULIN SLIDING SCALE (NOVOLOG) 1 VIAL SQ SCH ×3 (06:43→16:54)
[2018-09-12 06:48] LABS: INR 3.3 (0.83-1.09); PROTHROMBIN TIME (PATIENT) 39.4 SEC (9.7-13.0)
--- NOTE | 2018-09-12 06:57 | PN ---
Progress Note (short form) - Note Progress Note: PULMONARY/CRITICAL CARE PROGRESS NOTE: SUBJECTIVE: Patient seen and examined in the ICU. Was on NIPPV overnight Awaiting tele bed Current Medications Acetaminophen (Tylenol -) 650 mg PO Q4H PRN PRN Reason: FEVER Albuterol Sulfate (Ventolin 0.083% Nebulizer Soln -) 1 amp NEB Q4H PRN PRN Reason: SHORT OF BREATH/WHEEZING Albuterol/Ipratropium (Duoneb -) 1 amp NEB RQID [facility] Last Admin: 09/11/18 21:05 Dose: 1 amp Amlodipine Besylate (Norvasc -) 10 mg PO DAILY [facility] Last Admin: 09/11/18 09:34 Dose: 10 mg Budesonide/Formoterol Fumarate (Symbicort 160/4.5mcg -) 2 puff IH BID [facility] Last Admin: 09/11/18 21:24 Dose: 2 puff Chlorhexidine Gluconate (Hibiclens For Decolonization -) 1 applic TP HS [facility] Last Admin: 09/11/18 21:25 Dose: 1 applic Folic Acid (Folic Acid -) 1 mg PO DAILY [facility] Last Admin: 09/11/18 09:34 Dose: 1 mg Hydralazine HCl (Apresoline -) 100 mg PO TID [facility] Last Admin: 09/12/18 06:19 Dose: 100 mg Piperacillin Sod/Tazobactam (Sod 2.25 gm/ Dextrose) 50 mls @ 100 mls/hr IVPB Q8H-IV [facility]; Protocol Last Admin: 09/12/18 02:05 Dose: 100 mls/hr Insulin Aspart (Novolog Vial Sliding Scale -) 1 vial SQ TIDAC [facility]; Protocol Last Admin: 09/12/18 06:43 Dose: Not Given Insulin Detemir (Levemir Vial) 24 units SQ HS [facility] Last Admin: 09/11/18 21:26 Dose: 24 units Insulin Detemir (Levemir Vial) 10 units SQ DAILY@0800 [facility] Last Admin: 09/11/18 08:52 Dose: 10 units Labetalol HCl (Normodyne -) 100 mg PO BID [facility] Last Admin: 09/11/18 22:54 Dose: 100 mg Mupirocin (Bactroban Ointment (For Decolonization) -) 1 applic NS BID [facility] Stop: 09/12/18 21:59 Last Admin: 09/11/18 21:24 Dose: 1 applic Pantoprazole Sodium (Protonix -) 40 mg PO DAILY [facility] Last Admin: 09/11/18 09:35 Dose: 40 mg Prednisone (Deltasone -) 30 mg PO DAILY [facility] Last Admin: 09/11/18 09:34 Dose: 30 mg Sodium Bicarbonate (Sodium Bicarbonate -) 650 mg PO BID [facility] Last Admin: 09/11/18 21:22 Dose: 650 mg Vital Signs Temp 98.5 F 09/12/18 06:00 Pulse 75 09/12/18 06:00 Resp 15 09/12/18 06:00 BP 166/53 L 09/12/18 06:00 Pulse Ox 100 09/12/18 05:58 Intake & Output 09/11/18 09/11/18 09/12/18 06:59 18:59 06:59 Intake Total 1063 1413 350 Output Total 1400 700 800 Balance -337 713 -450 Weight 98.928 kg 98.838 kg Intake: IV 913 913 Normal Saline - 1,000 ml 913 913 @ 83 mls/hr IV ASDIR [facility] Rx#:[id number] IVPB 50 100 50 Oral 100 400 300 Output: Urine 1400 700 800 Thrasher 1400 700 800 Other: Voiding Method Indwelling Catheter Indwelling Catheter Indwelling Catheter Bowel Movement No No Yes: small # Bowel Movements 1 Weight Measurement Method [facility] EXAM: neuro: alert, comfortable HEENT: PERRL chest: clear lungs heart: RRR abd: soft, non-tender ext: no edema, warm skin: warm, dry CBC, BMP 09/12/18 05:45 09/12/18 05:45 Microbiology 09/07/18 13:21 Blood Culture - Preliminary Blood - Peripheral Venous NO GROWTH OBTAINED AFTER 96 HOURS, INCUBATION TO CONTINUE FOR 1 DAYS. 09/07/18 13:21 Blood Culture - Preliminary Blood - Peripheral Venous NO GROWTH OBTAINED AFTER 96 HOURS, INCUBATION TO CONTINUE FOR 1 DAYS. 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
[2018-09-12] MEDS: ALBUTEROL SO4 2.5/IPRATROPIUM 0.5 INH SOL 3 ML VIAL.NEB. NEB SCH ×4 (07:30→20:20)
[2018-09-12 07:40] LABS: CALCIUM 7.4 mg/dL (8.5-10.1); CREATININE 5.2 mg/dL (0.55-1.3); POTASSIUM 4.8 mmol/L (3.5-5.1)
[2018-09-12 08:00] LABS: BLOOD UREA NITROGEN 104.4 mg/dL (7-18)
[2018-09-12] MEDS: INSULIN (LEVEMIR) 100 UNITS/ML UNITS SQ SCH ×2 (09:01→22:05)
[2018-09-12] MEDS: SODIUM BICARBONATE 650 MG TABLET PO SCH ×2 (09:44→22:06)
[2018-09-12] MEDS: FOLIC ACID 1 MG TABLET (FP) PO SCH (09:45)
[2018-09-12] MEDS: amLODIPine BESYLATE 10 MG TABLET (FP) PO SCH (09:45)
[2018-09-12] MEDS: PANTOPRAZOLE 40 MG TABLET (FP) PO SCH (09:45)
[2018-09-12] MEDS: LABETALOL HCL 100 MG TABLET (FP) PO SCH (09:45)
[2018-09-12] MEDS: predniSONE 10 MG TABLET (UD) PO SCH (09:45)
[2018-09-12] MEDS: BUDESONIDE/FORMETEROL FUMARATE 160/4.5 mcg INHALER IH SCH ×2 (09:45→22:06)
[2018-09-12] MEDS: MUPIROCIN 2% TOPICAL OINTMENT FOR DECOLONIZATION NS SCH (09:46)
[2018-09-12] MEDS ORDERED: LABETALOL HCL 100 MG TABLET (FP) PO ONE (10:30)
--- NOTE | 2018-09-12 10:32 | PN ---
Progress Note (short form) - Note Progress Note: Subjective: SOB varies from day to day. feels tired. No JANE , no cough. Objective: Vital Signs: Last Vital Signs Temp Pulse Resp BP Pulse Ox 98.5 F 80 24 H 164/54 L 99 09/12/18 06:00 09/12/18 08:00 09/12/18 08:00 09/12/18 08:00 09/12/18 09:53 Laboratory Results - last 24 hr 09/12/18 09/12/18 09/12/18 05:45 05:45 05:45 WBC 13.7 H RBC 2.61 L Hgb 8.3 L Hct 25.3 L MCV 97.0 H MCH 32.0 MCHC 33.0 RDW 15.2 Plt Count 145 MPV 9.8 Absolute Neuts (auto) 12.3 H Neutrophils % 90.0 H Lymphocytes % 4.8 L D Monocytes % 5.1 D Eosinophils % 0.0 Basophils % 0.1 Nucleated RBC % 0 PT with INR 39.40 H INR 3.30 H Sodium 144 Potassium 4.8 Chloride 112 H Carbon Dioxide 20 L Anion Gap 11 BUN 104.4 H* Creatinine 5.2 H Est GFR (CKD-EPI)AfAm 8.46 Est GFR (CKD-EPI)NonAf 7.30 Random Glucose 112 H Calcium 7.4 L Physical Exam: NAD, awake, pleasant CV: RRR, 2/6 SM at RUSB. Lungs: CTAB, no crackles Ext : 1+ pitting edema on legs. no erythema or tenderness ASSESSMENT AND PLAN: 77 y/o lady with h/o CAD, s/p AL, AFib , HTN, diastolic CHF, pulm HTN, TREVON, DM , LLE DVT, CKD 5, GERD and other medical problems who was recently discharged after being treated for COPD, now she presented with fever and with SOB and was found to have b/l infiltrates with acute hypoxic resp failure 1- Acute hypoxic resp failure: due to b/l PNA and acute COPD exacerbation. - cont prednisone taper and breathing treatment - cxray in am - cont zosyn. 2- HTN: still uncontrolled 183/57 now . cont HZN, and norvasc. increase labetalol to 200 BID 3- H/o A fib: - labetalol for now due to hypertension. - cont to hold coumadin . monitor INR 4- DM: cont levemir 24 units HS, and 10 units in am . Cont SSI 5- JOSE on CKD 5: Cr stabilized. she declined HD. monitor Off fluids or diuretics. Might be retaining more fluids and might need to diurese soon Dispo: HLOC. Visit type - Emergency Visit Emergency Visit: Yes ED Registration Date: 09/07/18 Care time: The patient presented to the Emergency Department on the above date and was hospitalized for further evaluation of their emergent condition. - New Patient This patient is new to me today: No - Critical Care Critical Care patient: No
--- NOTE | 2018-09-12 11:16 | PN ---
Progress Note, Physician History of Present Illness: stable no new issues improving - Current Medication List Current Medications: Active Medications Acetaminophen (Tylenol -) 650 mg PO Q4H PRN PRN Reason: FEVER Albuterol Sulfate (Ventolin 0.083% Nebulizer Soln -) 1 amp NEB Q4H PRN PRN Reason: SHORT OF BREATH/WHEEZING Albuterol/Ipratropium (Duoneb -) 1 amp NEB RQID [facility] Last Admin: 09/12/18 07:30 Dose: 1 amp Amlodipine Besylate (Norvasc -) 10 mg PO DAILY [facility] Last Admin: 09/12/18 09:45 Dose: 10 mg Budesonide/Formoterol Fumarate (Symbicort 160/4.5mcg -) 2 puff IH BID [facility] Last Admin: 09/12/18 09:45 Dose: 2 puff Chlorhexidine Gluconate (Hibiclens For Decolonization -) 1 applic TP [facility] Last Admin: 09/11/18 21:25 Dose: 1 applic Folic Acid (Folic Acid -) 1 mg PO DAILY [facility] Last Admin: 09/12/18 09:45 Dose: 1 mg Hydralazine HCl (Apresoline -) 100 mg PO TID [facility] Last Admin: 09/12/18 06:19 Dose: 100 mg Piperacillin Sod/Tazobactam (Sod 2.25 gm/ Dextrose) 50 mls @ 100 mls/hr IVPB Q8H-IV [facility]; Protocol Last Admin: 09/12/18 09:44 Dose: 100 mls/hr Insulin Aspart (Novolog Vial Sliding Scale -) 1 vial SQ TIDAC [facility]; Protocol Last Admin: 09/12/18 06:43 Dose: Not Given Insulin Detemir (Levemir Vial) 24 units SQ [facility] Last Admin: 09/11/18 21:26 Dose: 24 units Insulin Detemir (Levemir Vial) 10 units SQ DAILY@0800 [facility] Last Admin: 09/12/18 09:01 Dose: 10 units Labetalol HCl (Normodyne -) 200 mg PO BID [facility] Mupirocin (Bactroban Ointment (For Decolonization) -) 1 applic NS BID [facility] Stop: 09/12/18 21:59 Last Admin: 09/12/18 09:46 Dose: 1 applic Pantoprazole Sodium (Protonix -) 40 mg PO DAILY [facility] Last Admin: 09/12/18 09:45 Dose: 40 mg Prednisone (Deltasone -) 30 mg PO DAILY [facility] Last Admin: 09/12/18 09:45 Dose: 30 mg Sodium Bicarbonate (Sodium Bicarbonate -) 650 mg PO BID [facility] Last Admin: 09/12/18 09:44 Dose: 650 mg - Objective Vital Signs: Vital Signs Temperature 98.5 F 09/12/18 06:00 Pulse Rate 80 09/12/18 08:00 Respiratory Rate 24 H 09/12/18 08:00 Blood Pressure 164/54 L 09/12/18 08:00 O2 Sat by Pulse Oximetry (%) 99 09/12/18 09:53 Constitutional: Yes: No Distress, Calm Cardiovascular: Yes: S1, S2 Respiratory: Yes: Regular, CTA Bilaterally Gastrointestinal: Yes: Normal Bowel Sounds, Soft Musculoskeletal: Yes: WNL Extremities: Yes: Other Neurological: Yes: Alert, Oriented Psychiatric: Yes: Alert, Oriented Labs: CBC, BMP 09/12/18 05:45 09/12/18 05:45 INR, PTT INR 3.30 (0.83-1.09) H 09/12/18 05:45 Assessment/Plan Acute Hypoxic Respiratory Failure Pneumonia Acute on Chronic Diastolic Heart Failure Atrial Fibrillation Pulmonary HTN CKD IV CAD HTN DM plan 'continue close watch resp support cx results noted close watch'
--- NOTE | 2018-09-12 16:44 | PN ---
Progress Note (short form) - Note Progress Note: covering dr leary #JOSE on CKD #acute dyspnea #COPD #CKD stage 4/5 with recent JOSE now resolved #CHF #Hypertension feels ok, denies nausea or poor appetite meds reviewed Current Medications Acetaminophen (Tylenol -) 650 mg PO Q4H PRN PRN Reason: FEVER Albuterol Sulfate (Ventolin 0.083% Nebulizer Soln -) 1 amp NEB Q4H PRN PRN Reason: SHORT OF BREATH/WHEEZING Albuterol/Ipratropium (Duoneb -) 1 amp NEB RQID [facility] Last Admin: 09/12/18 11:25 Dose: 1 amp Amlodipine Besylate (Norvasc -) 10 mg PO DAILY [facility] Last Admin: 09/12/18 09:45 Dose: 10 mg Budesonide/Formoterol Fumarate (Symbicort 160/4.5mcg -) 2 puff IH BID [facility] Last Admin: 09/12/18 09:45 Dose: 2 puff Chlorhexidine Gluconate (Hibiclens For Decolonization -) 1 applic TP HS [facility] Last Admin: 09/11/18 21:25 Dose: 1 applic Folic Acid (Folic Acid -) 1 mg PO DAILY [facility] Last Admin: 09/12/18 09:45 Dose: 1 mg Hydralazine HCl (Apresoline -) 100 mg PO TID [facility] Last Admin: 09/12/18 13:19 Dose: 100 mg Piperacillin Sod/Tazobactam (Sod 2.25 gm/ Dextrose) 50 mls @ 100 mls/hr IVPB Q8H-IV [facility]; Protocol Last Admin: 09/12/18 09:44 Dose: 100 mls/hr Insulin Aspart (Novolog Vial Sliding Scale -) 1 vial SQ TIDAC [facility]; Protocol Last Admin: 09/12/18 11:41 Dose: Not Given Insulin Detemir (Levemir Vial) 24 units SQ HS [facility] Last Admin: 09/11/18 21:26 Dose: 24 units Insulin Detemir (Levemir Vial) 10 units SQ DAILY@0800 [facility] Last Admin: 09/12/18 09:01 Dose: 10 units Labetalol HCl (Normodyne -) 200 mg PO BID [facility] Mupirocin (Bactroban Ointment (For Decolonization) -) 1 applic NS BID [facility] Stop: 09/12/18 21:59 Last Admin: 09/12/18 09:46 Dose: 1 applic Pantoprazole Sodium (Protonix -) 40 mg PO DAILY [facility] Last Admin: 09/12/18 09:45 Dose: 40 mg Prednisone (Deltasone -) 30 mg PO DAILY [facility] Last Admin: 09/12/18 09:45 Dose: 30 mg Sodium Bicarbonate (Sodium Bicarbonate -) 650 mg PO BID [facility] Last Admin: 09/12/18 09:44 Dose: 650 mg Last Vital Signs Temp Pulse Resp BP Pulse Ox 97.7 F 75 20 145/56 L 99 09/12/18 14:00 09/12/18 14:00 09/12/18 14:00 09/12/18 14:00 09/12/18 10:00 Lungs reg Heart reg Abd soft Ext no edema CBC, [facility] 09/11/18 05:09 09/11/18 05:16 CBC, [facility] 09/12/18 05:45 09/12/18 05:45 IMP- jose on chronic renal function not improving she has no symptoms related to renal failure no indication for hd so far she says she has said in the past that she would not want to go on dialysis she is familiar with the procedure from her sister being on this treatment she continues to be unwilling to have hd now if it becaomes indicated
[2018-09-12] MEDS: CHLORHEXIDINE GLUCONATE 4% CLEANSER FOR DECOLONIZATION TP SCH (22:05)
[2018-09-12] MEDS: LABETALOL HCL 200 MG TABLET (FP) PO SCH (22:06)
[2018-09-13] MEDS ORDERED: PIPERACILLIN/TAZOBACTAM 2.25 GM VIAL IVPB ONE ×2 (00:52→09:24)
[2018-09-13] MEDS ORDERED: DEXTROSE 5%-WATER - 50 ML IVPB ONE ×2 (00:52→09:25)
[2018-09-13] MEDS: PIPERACILLIN/TAZOB 2.25 GM 2.25 GM in DEXTROSE 5%-WATER - 50 ML IVPB SCH ×2 (02:12→09:46)
[2018-09-13] MEDS: hydrALAZINE HCL 50 MG TABLET (FP) PO SCH ×3 (06:14→21:40)
[2018-09-13 06:30] LABS: HEMATOCRIT 24.4 % (32.4-45.2); HEMOGLOBIN 8.1 GM/dL (10.7-15.3); MCH 32.2 pg (25.7-33.7); MCHC 33.2 g/dl (32.0-36.0); MEAN CELL VOLUME 97.2 fl (80-96); MEAN PLT VOLUME 9.3 fl (7.5-11.1); PLATELET COUNT 157 K/MM3 (134-434); RBC 2.51 M/mm3 (3.60-5.2); RDW 14.9 % (11.6-15.6); WHITE BLOOD COUNT 9.1 K/mm3 (4.0-10.0)
[2018-09-13 06:42] LABS: INR 2.09 (0.83-1.09); PROTHROMBIN TIME (PATIENT) 24.9 SEC (9.7-13.0)
[2018-09-13 07:02] LABS: CALCIUM 7.4 mg/dL (8.5-10.1); CREATININE 5.2 mg/dL (0.55-1.3); POTASSIUM 4.8 mmol/L (3.5-5.1)
[2018-09-13 07:10] LABS: BLOOD UREA NITROGEN 111.9 mg/dL (7-18)
[2018-09-13] MEDS: INSULIN SLIDING SCALE (NOVOLOG) 1 VIAL SQ SCH ×3 (07:15→16:50)
[2018-09-13] MEDS: ALBUTEROL SO4 2.5/IPRATROPIUM 0.5 INH SOL 3 ML VIAL.NEB. NEB SCH ×4 (07:25→20:52)
[2018-09-13] MEDS: INSULIN (LEVEMIR) 100 UNITS/ML UNITS SQ SCH ×2 (08:02→22:19)
--- NOTE | 2018-09-13 08:20 | PN ---
Physical Exam: SUBJECTIVE: Patient seen and examined. Pt slept with BiPAP overnight. She does not complain of worsening SOB, CP, or cough. Pt feels very tired. OBJECTIVE: Vital Signs Period Temp Pulse Resp BP Sys/Renee Pulse Ox Last 24 Hr 97.2 F-98.1 F 63-89 12- 145-183/51-67 99-99 GENERAL: The patient is awake, alert, and fully oriented, in no acute distress. Appears very tired. Breathing on NC. HEAD: Normal with no signs of trauma. EYES: PERRL, extraocular movements intact, sclera anicteric, conjunctiva clear. No ptosis. ENT: Ears normal, nares patent, oropharynx clear without exudates, moist mucous membranes. NECK: Trachea midline, full range of motion, supple. LUNGS: Mildly coarse breath sounds, but improving. No wheezes, no crackles. Accessory muscle use when sitting up. HEART: Regular rate and rhythm, S1, S2, 2/6 SM a RUSB ABDOMEN: Soft, nontender, nondistended, normoactive bowel sounds, no guarding, no rebound, no hepatosplenomegaly, no masses. EXTREMITIES: 2+ pulses, warm, well-perfused, 1+ pitting edema. NEUROLOGICAL: Cranial nerves II through XII grossly intact. Normal speech, gait not observed. PSYCH: Normal mood, normal affect. SKIN: Warm, dry, normal turgor, no rashes or lesions noted Laboratory Results - last 24 hr 09/13/18 09/13/18 09/13/18 05:26 05:26 05:26 WBC 9.1 RBC 2.51 L Hgb 8.1 L Hct 24.4 L MCV 97.2 H MCH 32.2 MCHC 33.2 RDW 14.9 Plt Count 157 MPV 9.3 PT with INR 24.90 H INR 2.09 H Sodium 143 Potassium 4.8 Chloride 115 H Carbon Dioxide 20 L Anion Gap 9 BUN 111.9 H* Creatinine 5.2 H Est GFR (CKD-EPI)AfAm 8.46 Est GFR (CKD-EPI)NonAf 7.30 Random Glucose 194 H Calcium 7.4 L Active Medications Acetaminophen (Tylenol -) 650 mg PO Q4H PRN PRN Reason: FEVER Albuterol Sulfate (Ventolin 0.083% Nebulizer Soln -) 1 amp NEB Q4H PRN PRN Reason: SHORT OF BREATH/WHEEZING Albuterol/Ipratropium (Duoneb -) 1 amp NEB RQID [facility] Last Admin: 09/12/18 20:20 Dose: 1 amp Amlodipine Besylate (Norvasc -) 10 mg PO DAILY [facility] Last Admin: 09/12/18 09:45 Dose: 10 mg Budesonide/Formoterol Fumarate (Symbicort 160/4.5mcg -) 2 puff IH BID [facility] Last Admin: 09/12/18 22:06 Dose: 2 puff Chlorhexidine Gluconate (Hibiclens For Decolonization -) 1 applic TP HS [facility] Last Admin: 09/12/18 22:05 Dose: 1 applic Folic Acid (Folic Acid -) 1 mg PO DAILY [facility] Last Admin: 09/12/18 09:45 Dose: 1 mg Hydralazine HCl (Apresoline -) 100 mg PO TID [facility] Last Admin: 09/13/18 06:14 Dose: 100 mg Piperacillin Sod/Tazobactam (Sod 2.25 gm/ Dextrose) 50 mls @ 100 mls/hr IVPB Q8H-IV [facility]; Protocol Last Admin: 09/13/18 02:12 Dose: 100 mls/hr Insulin Aspart (Novolog Vial Sliding Scale -) 1 vial SQ TIDAC [facility]; Protocol Last Admin: 09/13/18 07:15 Dose: Not Given Insulin Detemir (Levemir Vial) 24 units SQ HS [facility] Last Admin: 09/12/18 22:05 Dose: 24 units Insulin Detemir (Levemir Vial) 10 units SQ DAILY@0800 [facility] Last Admin: 09/13/18 08:02 Dose: 10 units Labetalol HCl (Normodyne -) 200 mg PO BID [facility] Last Admin: 09/12/18 22:06 Dose: 200 mg Pantoprazole Sodium (Protonix -) 40 mg PO DAILY [facility] Last Admin: 09/12/18 09:45 Dose: 40 mg Prednisone (Deltasone -) 30 mg PO DAILY [facility] Last Admin: 09/12/18 09:45 Dose: 30 mg Sodium Bicarbonate (Sodium Bicarbonate -) 650 mg PO BID [facility] Last Admin: 09/12/18 22:06 Dose: 650 mg ASSESSMENT/PLAN: Pt. is a 77 y.o. F w/ PMHx. of HTN, NIDDM, Afib(s/p ablation on Coumadin), LLE DVT, CHFpEF, NE( s/p catherization), CKD Stage 4, GERD, and over active bladder presents with PNA. #Acute hypoxic respiratory failure 2/2 aspiration PNA Day 7 of Zosyn 2.25mg, discontinued per ID Solumedrol 30mg IV push daily, decreased to 20mg tomorrow, cont duonebs prn Pt being monitored on NC and BiPAP at pm Per Dr. To, hold off diuresis #JOSE on CKD Stage 5 Cr: 5.2, stable (baseline 3.6); BUN: 111.9; eGFR: 14.65 Cont to monitor volume status Nephro on board, hold off diuretics and fluids for now. Declines HD #Afib EKG: NSR, Q waves in V1, QTc: 450 Labetolol for now due to HTN INR: 2.09, start coumadin 5mg Q.PM #HTN, better controlled Hydralazine 100mg TID po Amlodipine to 10mg po daily Labetolol 100mg BID #CHFpEF BNP: 5214.1, continue to monitor Hold Lasix for now Echo (08/23/18) EF 60-65%. #IDDM Glucose levels poorly controlled Cont Levemir 24units SQ HS and 10 units in am. Sliding scale SQ TIDAC Insulin requirements will likely improve with steroids taper #Anemia Hgb deceasing (10.7-->9.5-->8.8-->8.1), cont to monitor FOBT: Neg LDH: 247, haptoglobin 451, ruled out hemolyzing GI prophylaxis 40mg pantoprazole daily #FEN Hold fluids for now Routine BMP monitoring Initiate diet as tolerated #DVT Ppx. Coumadin 5mg #Dispo DC to tele Pt.'s daughter left her number ([phone] [place] [phone]) for updates Visit type - Emergency Visit Emergency Visit: No - New Patient This patient is new to me today: No - Critical Care Critical Care patient: Yes Total Critical Care Time (in minutes): 45 Critical Care Statement: The care of this patient involved high complexity decision making to prevent further life threatening deterioration of the patient 's condition and/or to evaluate & treat vital organ system(s) failure or risk of failure. ATTENDING PHYSICIAN STATEMENT I saw and evaluated the patient. I reviewed the resident's note and discussed the case with the resident. I agree with the resident's findings and plan as documented. SUBJECTIVE: OBJECTIVE: ASSESSMENT AND PLAN:
[2018-09-13] MEDS: predniSONE 20 MG TABLET (UD) PO SCH (09:42)
[2018-09-13] MEDS: amLODIPine BESYLATE 10 MG TABLET (FP) PO SCH (09:44)
[2018-09-13] MEDS: SODIUM BICARBONATE 650 MG TABLET PO SCH ×2 (09:44→21:40)
[2018-09-13] MEDS: predniSONE 10 MG TABLET (UD) PO SCH (09:44)
[2018-09-13] MEDS: FOLIC ACID 1 MG TABLET (FP) PO SCH (09:44)
[2018-09-13] MEDS: PANTOPRAZOLE 40 MG TABLET (FP) PO SCH (09:44)
[2018-09-13] MEDS: LABETALOL HCL 200 MG TABLET (FP) PO SCH ×2 (09:50→21:40)
[2018-09-13] MEDS: BUDESONIDE/FORMETEROL FUMARATE 160/4.5 mcg INHALER IH SCH ×2 (09:53→21:44)
[2018-09-13] MEDS ORDERED: FUROSEMIDE 40 MG/4 ML INJECTABLE VIAL IVPUSH ONE (10:00)
--- NOTE | 2018-09-13 11:10 | PN ---
Progress Note, Physician History of Present Illness: patient still continues to have breathing issues alternating between nasal canula and bipap - Current Medication List Current Medications: Active Medications Acetaminophen (Tylenol -) 650 mg PO Q4H PRN PRN Reason: FEVER Albuterol Sulfate (Ventolin 0.083% Nebulizer Soln -) 1 amp NEB Q4H PRN PRN Reason: SHORT OF BREATH/WHEEZING Albuterol/Ipratropium (Duoneb -) 1 amp NEB RQID [facility] Last Admin: 09/13/18 07:25 Dose: 1 amp Amlodipine Besylate (Norvasc -) 10 mg PO DAILY [facility] Last Admin: 09/13/18 09:44 Dose: 10 mg Budesonide/Formoterol Fumarate (Symbicort 160/4.5mcg -) 2 puff IH BID [facility] Last Admin: 09/13/18 09:53 Dose: 2 puff Chlorhexidine Gluconate (Hibiclens For Decolonization -) 1 applic TP HS [facility] Last Admin: 09/12/18 22:05 Dose: 1 applic Folic Acid (Folic Acid -) 1 mg PO DAILY [facility] Last Admin: 09/13/18 09:44 Dose: 1 mg Hydralazine HCl (Apresoline -) 100 mg PO TID [facility] Last Admin: 09/13/18 06:14 Dose: 100 mg Insulin Aspart (Novolog Vial Sliding Scale -) 1 vial SQ TIDAC [facility]; Protocol Last Admin: 09/13/18 07:15 Dose: Not Given Insulin Detemir (Levemir Vial) 24 units SQ HS [facility] Last Admin: 09/12/18 22:05 Dose: 24 units Insulin Detemir (Levemir Vial) 10 units SQ DAILY@0800 [facility] Last Admin: 09/13/18 08:02 Dose: 10 units Labetalol HCl (Normodyne -) 200 mg PO BID [facility] Last Admin: 09/13/18 09:50 Dose: 200 mg Pantoprazole Sodium (Protonix -) 40 mg PO DAILY [facility] Last Admin: 09/13/18 09:44 Dose: 40 mg Prednisone (Deltasone -) 30 mg PO DAILY [facility] Stop: 09/13/18 23:59 Last Admin: 09/13/18 09:44 Dose: 30 mg Prednisone (Deltasone -) 20 mg PO DAILY [facility] Last Admin: 09/13/18 09:42 Dose: 20 mg Sodium Bicarbonate (Sodium Bicarbonate -) 650 mg PO BID [facility] Last Admin: 09/13/18 09:44 Dose: 650 mg Warfarin Sodium (Coumadin -) 5 mg PO DAILY@1800 [facility] - Objective Vital Signs: Vital Signs Temperature 98 F 09/13/18 10:00 Pulse Rate 71 09/13/18 10:00 Respiratory Rate 17 09/13/18 10:00 Blood Pressure 159/56 L 09/13/18 10:00 O2 Sat by Pulse Oximetry (%) 100 09/13/18 10:00 Constitutional: Yes: Calm, Mild Distress Cardiovascular: Yes: S1, S2 Respiratory: Yes: Regular Gastrointestinal: Yes: Normal Bowel Sounds, Soft Musculoskeletal: Yes: WNL Extremities: Yes: WNL Neurological: Yes: Alert, Oriented Psychiatric: Yes: Alert, Oriented Labs: CBC, BMP 09/13/18 05:26 09/13/18 05:26 INR, PTT INR 2.09 (0.83-1.09) H 09/13/18 05:26 Assessment/Plan Acute Hypoxic Respiratory Failure Pneumonia Acute on Chronic Diastolic Heart Failure Atrial Fibrillation Pulmonary HTN CKD IV CAD HTN DM plan 'continue close watch resp support cx results noted close watch' will stop abx
--- NOTE | 2018-09-13 11:40 | PN ---
Progress Note (short form) - Note Progress Note: Renal follow up for CKD Pt seen and examined in the ICU awake and alert has some sob, made worse with movement and exertion no cough, no cp, no overt orthopnea making urine via jarvis Vital Signs Temperature 98 F 09/13/18 10:00 Pulse Rate 71 09/13/18 10:00 Respiratory Rate 17 09/13/18 10:00 Blood Pressure 159/56 L 09/13/18 10:00 O2 Sat by Pulse Oximetry (%) 100 09/13/18 10:00 Intake & Output 09/10/18 09/11/18 09/12/18 09/13/18 23:59 23:59 23:59 23:59 Intake Total 2146 2344 900 Output Total 1600 1900 1450 300 Balance 546 444 -550 -300 Weight 97.976 kg 98.928 kg 98.838 kg 100.924 kg NAD RRR dec BS soft NT/ND no LE or sacral edema CBC, BMP 09/13/18 05:26 09/13/18 05:26 Current Medications Acetaminophen (Tylenol -) 650 mg PO Q4H PRN PRN Reason: FEVER Albuterol Sulfate (Ventolin 0.083% Nebulizer Soln -) 1 amp NEB Q4H PRN PRN Reason: SHORT OF BREATH/WHEEZING Albuterol/Ipratropium (Duoneb -) 1 amp NEB RQID [facility] Last Admin: 09/13/18 11:09 Dose: 1 amp Amlodipine Besylate (Norvasc -) 10 mg PO DAILY [facility] Last Admin: 09/13/18 09:44 Dose: 10 mg Budesonide/Formoterol Fumarate (Symbicort 160/4.5mcg -) 2 puff IH BID [facility] Last Admin: 09/13/18 09:53 Dose: 2 puff Chlorhexidine Gluconate (Hibiclens For Decolonization -) 1 applic TP HS [facility] Last Admin: 09/12/18 22:05 Dose: 1 applic Folic Acid (Folic Acid -) 1 mg PO DAILY [facility] Last Admin: 09/13/18 09:44 Dose: 1 mg Hydralazine HCl (Apresoline -) 100 mg PO TID [facility] Last Admin: 09/13/18 06:14 Dose: 100 mg Insulin Aspart (Novolog Vial Sliding Scale -) 1 vial SQ TIDAC [facility]; Protocol Last Admin: 09/13/18 07:15 Dose: Not Given Insulin Detemir (Levemir Vial) 24 units SQ HS [facility] Last Admin: 09/12/18 22:05 Dose: 24 units Insulin Detemir (Levemir Vial) 10 units SQ DAILY@0800 [facility] Last Admin: 09/13/18 08:02 Dose: 10 units Labetalol HCl (Normodyne -) 200 mg PO BID [facility] Last Admin: 09/13/18 09:50 Dose: 200 mg Pantoprazole Sodium (Protonix -) 40 mg PO DAILY [facility] Last Admin: 09/13/18 09:44 Dose: 40 mg Prednisone (Deltasone -) 30 mg PO DAILY [facility] Stop: 09/13/18 23:59 Last Admin: 09/13/18 09:44 Dose: 30 mg Prednisone (Deltasone -) 20 mg PO DAILY [facility] Last Admin: 09/13/18 09:42 Dose: 20 mg Sodium Bicarbonate (Sodium Bicarbonate -) 650 mg PO BID [facility] Last Admin: 09/13/18 09:44 Dose: 650 mg Warfarin Sodium (Coumadin -) 5 mg PO DAILY@1800 [facility] 77 year old woman with history of CKD stage 4/5 (baseline Cr 3.5), hypertension, COPD, CHF presented from home with SOB. #JOSE on CKD #acute dyspnea #COPD #CKD stage 4/5 with recent JOSE now resolved #CHF #Hypertension Cr stable, pt is remains non-oliguric BUN is high but multifactorial - steroids and renal insufficiency no acute need for [employer] a the present time would defer diuretics unless there is a change in clinical status continue steroids as per pulmonary continue supplemental O2 Give DENISSE for Anemia Check iron saturation Thank you Tylor To DO
--- NOTE | 2018-09-13 12:26 | PN ---
Teaching Attending Note Name of Resident: Herminia Russell ATTENDING PHYSICIAN STATEMENT I saw and evaluated the patient. I reviewed the resident's note and discussed the case with the resident. I agree with the resident's findings and plan as documented. SUBJECTIVE: No fever or chills. SOB is slightly worse, especially when she moves. cough with no sputum production . NO Abd pain . OBJECTIVE: NAD, awake, pleasant CV: RRR, 2/6 SM at RUSB. Lungs: minimal crackles at bases, scattered wheezing Ext : 1+ pitting edema on legs. no erythema or tenderness ASSESSMENT AND PLAN: 77 y/o lady with h/o CAD, s/p AL, AFib , HTN, diastolic CHF, pulm HTN, TREVON, DM , LLE DVT, CKD 5, GERD and other medical problems who was recently discharged after being treated for COPD, now she presented with fever and with SOB and was found to have b/l infiltrates with acute hypoxic resp failure 1- Acute hypoxic resp failure: due to b/l PNA and acute COPD exacerbation. - cont prednisone taper ( decrease am dose ) and breathing treatment - cxray reviewed. - day 7 of zosyn, will d/w ID the plan for Abx - d/w Dr. To, hold off diuresis 2- HTN : better controlled. cont HZN, and norvasc, and labetalol 200 BID 3- H/o A fib: - labetalol for now due to hypertension. - resume coumadin at 5 mg q PM 4- DM: cont levemir 24 units HS, and 10 units in am. Cont SSI expect insulin requirements to improve with steroids taper 5- JOSE on CKD 5: Stable cr. hold off IVF and diuretics for now. she declines HD Dispo: HLOC.
--- NOTE | 2018-09-13 14:26 | PN ---
Progress Note (short form) - Note Progress Note: Some increase in cough and JOHNSON today. CXR: minimal increase in cephalization of vessels / no new infiltrates Intake & Output 09/10/18 09/11/18 09/12/18 09/13/18 23:59 23:59 23:59 23:59 Intake Total 2146 2344 900 Output Total 1600 1900 1450 300 Balance 546 444 -550 -300 Weight 216 lb 218 lb 1.6 oz 217 lb 14.4 oz 222 lb 8 oz Last Vital Signs Temp Pulse Resp BP Pulse Ox 98 F 65 19 140/55 L 100 09/13/18 13:57 09/13/18 13:57 09/13/18 13:57 09/13/18 13:57 09/13/18 10:00 Active Medications Acetaminophen (Tylenol -) 650 mg PO Q4H PRN PRN Reason: FEVER Albuterol Sulfate (Ventolin 0.083% Nebulizer Soln -) 1 amp NEB Q4H PRN PRN Reason: SHORT OF BREATH/WHEEZING Albuterol/Ipratropium (Duoneb -) 1 amp NEB RQID [facility] Last Admin: 09/13/18 11:09 Dose: 1 amp Amlodipine Besylate (Norvasc -) 10 mg PO DAILY [facility] Last Admin: 09/13/18 09:44 Dose: 10 mg Budesonide/Formoterol Fumarate (Symbicort 160/4.5mcg -) 2 puff IH BID [facility] Last Admin: 09/13/18 09:53 Dose: 2 puff Chlorhexidine Gluconate (Hibiclens For Decolonization -) 1 applic TP [facility] Last Admin: 09/12/18 22:05 Dose: 1 applic Folic Acid (Folic Acid -) 1 mg PO DAILY [facility] Last Admin: 09/13/18 09:44 Dose: 1 mg Hydralazine HCl (Apresoline -) 100 mg PO TID [facility] Last Admin: 09/13/18 13:45 Dose: 100 mg Insulin Aspart (Novolog Vial Sliding Scale -) 1 vial SQ TIDAC [facility]; Protocol Last Admin: 09/13/18 11:40 Dose: 2 units Insulin Detemir (Levemir Vial) 24 units SQ [facility] Last Admin: 09/12/18 22:05 Dose: 24 units Insulin Detemir (Levemir Vial) 10 units SQ DAILY@0800 [facility] Last Admin: 09/13/18 08:02 Dose: 10 units Labetalol HCl (Normodyne -) 200 mg PO BID [facility] Last Admin: 09/13/18 09:50 Dose: 200 mg Pantoprazole Sodium (Protonix -) 40 mg PO DAILY [facility] Last Admin: 09/13/18 09:44 Dose: 40 mg Prednisone (Deltasone -) 30 mg PO DAILY [facility] Stop: 09/13/18 23:59 Last Admin: 09/13/18 09:44 Dose: 30 mg Prednisone (Deltasone -) 20 mg PO DAILY [facility] Last Admin: 09/13/18 09:42 Dose: 20 mg Sodium Bicarbonate (Sodium Bicarbonate -) 650 mg PO BID [facility] Last Admin: 09/13/18 09:44 Dose: 650 mg Warfarin Sodium (Coumadin -) 5 mg PO DAILY@1800 [facility] Gen: Awake and alert, NAD Heart: RRR Lung: scattered bilateral rhonchi, no wheeze Abd: soft, nontender Ext: no edema Laboratory Results - last 24 hr 09/10/18 09/10/18 09/10/18 11:27 16:17 21:33 WBC RBC Hgb Hct MCV MCH MCHC RDW Plt Count MPV PT with INR INR Sodium Potassium Chloride Carbon Dioxide Anion Gap BUN Creatinine Est GFR (CKD-EPI)AfAm Est GFR (CKD-EPI)NonAf POC Glucometer 245 272 373 Random Glucose Calcium Ferritin 09/11/18 09/11/18 09/11/18 05:19 11:32 16:37 WBC RBC Hgb Hct MCV MCH MCHC RDW Plt Count MPV PT with INR INR Sodium Potassium Chloride Carbon Dioxide Anion Gap BUN Creatinine Est GFR (CKD-EPI)AfAm Est GFR (CKD-EPI)NonAf POC Glucometer 354 222 176 Random Glucose Calcium Ferritin 09/11/18 09/12/18 09/12/18 21:19 06:16 11:28 WBC RBC Hgb Hct MCV MCH MCHC RDW Plt Count MPV PT with INR INR Sodium Potassium Chloride Carbon Dioxide Anion Gap BUN Creatinine Est GFR (CKD-EPI)AfAm Est GFR (CKD-EPI)NonAf POC Glucometer 143 102 122 Random Glucose Calcium Ferritin 09/12/18 09/13/18 09/13/18 16:40 05:26 05:26 WBC 9.1 RBC 2.51 L Hgb 8.1 L Hct 24.4 L MCV 97.2 H MCH 32.2 MCHC 33.2 RDW 14.9 Plt Count 157 MPV 9.3 PT with INR 24.90 H INR 2.09 H Sodium Potassium Chloride Carbon Dioxide Anion Gap BUN Creatinine Est GFR (CKD-EPI)AfAm Est GFR (CKD-EPI)NonAf POC Glucometer 211 Random Glucose Calcium Ferritin 09/13/18 09/13/18 09/13/18 05:26 08:01 11:13 WBC RBC Hgb Hct MCV MCH MCHC RDW Plt Count MPV PT with INR INR Sodium 143 Potassium 4.8 Chloride 115 H Carbon Dioxide 20 L Anion Gap 9 BUN 111.9 H* Creatinine 5.2 H Est GFR (CKD-EPI)AfAm 8.46 Est GFR (CKD-EPI)NonAf 7.30 POC Glucometer 129 158 Random Glucose 194 H Calcium 7.4 L Ferritin 393.0 H ASSESSMENT AND PLAN: Acute Hypoxic Respiratory Failure Pneumonia Acute on Chronic Diastolic Heart Failure Atrial Fibrillation Pulmonary HTN CKD IV CAD HTN DM - Zosyn completed 7 days - Prednisone - inhaled bronchodilators standing and PRN - O2 to keep Spo2 >90% - NIPPV if needed to assist in work of breathing - Noted Lasix held today - monitor urine output, creatinine - continue anticoagulation - Cardiac telemetry monitoring Dr Garner
[2018-09-13 16:03] VITALS: BMI 31.8
[2018-09-13] MEDS ORDERED: WARFARIN NA 5 MG TABLET (UD) PO SCH (18:00)
[2018-09-13] MEDS: CHLORHEXIDINE GLUCONATE 4% CLEANSER FOR DECOLONIZATION TP SCH (21:41)
[2018-09-14 04:12] LABS: SERUM IRON SATURATION 70 % (15-55); TOTAL IRON BINDING CAPACITY 203 ug/dL (250-450)
[2018-09-14] MEDS ORDERED: PT OWN MED DRAWER 7, Y5N ONE ×4 (05:25→21:55)
[2018-09-14] MEDS: hydrALAZINE HCL 50 MG TABLET (FP) PO SCH ×3 (06:01→21:59)
[2018-09-14] MEDS: INSULIN SLIDING SCALE (NOVOLOG) 1 VIAL SQ SCH ×3 (06:02→17:46)
[2018-09-14 06:24] LABS: BASO % 0.1 % (0-2.0); HEMATOCRIT 23.5 % (32.4-45.2); HEMOGLOBIN 7.9 GM/dL (10.7-15.3); MCH 32.5 pg (25.7-33.7); MCHC 33.8 g/dl (32.0-36.0); MEAN PLT VOLUME 9.3 fl (7.5-11.1); MONO % 5.2 % (3.8-10.2); NEUT % 91.7 % (42.8-82.8); PLATELET COUNT 173 K/MM3 (134-434); RBC 2.45 M/mm3 (3.60-5.2); RDW 15.3 % (11.6-15.6); WHITE BLOOD COUNT 8.2 K/mm3 (4.0-10.0)
[2018-09-14 06:43] LABS: ALBUMIN 2.2 g/dl (3.4-5.0); BILIRUBIN,TOTAL 0.3 mg/dL (0.2-1); CALCIUM 7.2 mg/dL (8.5-10.1); CREATININE 5.1 mg/dL (0.55-1.3); MAGNESIUM 1.9 mg/dL (1.8-2.4); POTASSIUM 4.9 mmol/L (3.5-5.1); TOT PROT 4.9 g/dl (6.4-8.2)
[2018-09-14 06:50] LABS: BLOOD UREA NITROGEN 112.7 mg/dL (7-18)
[2018-09-14] MEDS: ALBUTEROL SO4 2.5/IPRATROPIUM 0.5 INH SOL 3 ML VIAL.NEB. NEB SCH ×4 (07:40→21:10)
[2018-09-14] MEDS: INSULIN (LEVEMIR) 100 UNITS/ML UNITS SQ SCH ×2 (08:16→21:59)
[2018-09-14] MEDS ORDERED: EPOETIN ALFA 20,000 UNIT/1 ML VIAL SQ ONE (08:45)
[2018-09-14 09:11] LABS: INR 1.65 (0.83-1.09); PROTHROMBIN TIME (PATIENT) 19.6 SEC (9.7-13.0)
[2018-09-14] MEDS: FOLIC ACID 1 MG TABLET (FP) PO SCH (09:40)
[2018-09-14] MEDS: amLODIPine BESYLATE 10 MG TABLET (FP) PO SCH (09:40)
[2018-09-14] MEDS: LABETALOL HCL 200 MG TABLET (FP) PO SCH ×2 (09:40→21:59)
[2018-09-14] MEDS: BUDESONIDE/FORMETEROL FUMARATE 160/4.5 mcg INHALER IH SCH ×2 (09:40→21:59)
[2018-09-14] MEDS: SODIUM BICARBONATE 650 MG TABLET PO SCH ×2 (09:40→21:59)
[2018-09-14] MEDS: predniSONE 20 MG TABLET (UD) PO SCH (09:40)
[2018-09-14] MEDS: PANTOPRAZOLE 40 MG TABLET (FP) PO SCH (09:40)
[2018-09-14 09:52] LABS: ANISOCYTOSIS 0; MACROCYTOSIS 0; PLATELET ESTIMATE NORMAL
--- NOTE | 2018-09-14 12:31 | PN ---
Progress Note (short form) - Note Progress Note: Resting in NAD on NC O2. No acute events overnight. Breathing feels about the same: still with cough and JOHNSON. Intake & Output 09/11/18 09/12/18 09/13/18 09/14/18 23:59 23:59 23:59 23:59 Intake Total 2344 900 1440 120 Output Total 1900 1450 1600 1200 Balance 444 -550 -160 -1080 Weight 218 lb 1.6 oz 217 lb 14.4 oz 222 lb 8 oz Last Vital Signs Temp Pulse Resp BP Pulse Ox 98.2 F 75 22 H 155/54 L 98 09/14/18 06:00 09/14/18 06:00 09/14/18 06:00 09/14/18 06:00 09/14/18 08:26 Active Medications Acetaminophen (Tylenol -) 650 mg PO Q4H PRN PRN Reason: FEVER Albuterol Sulfate (Ventolin 0.083% Nebulizer Soln -) 1 amp NEB Q4H PRN PRN Reason: SHORT OF BREATH/WHEEZING Albuterol/Ipratropium (Duoneb -) 1 amp NEB RQID [facility] Last Admin: 09/14/18 11:33 Dose: 1 amp Amlodipine Besylate (Norvasc -) 10 mg PO DAILY [facility] Last Admin: 09/14/18 09:40 Dose: 10 mg Budesonide/Formoterol Fumarate (Symbicort 160/4.5mcg -) 2 puff IH BID [facility] Last Admin: 09/14/18 09:40 Dose: 2 puff Calcium Acetate (Phoslo -) 667 mg PO TIDCM [facility] Chlorhexidine Gluconate (Hibiclens For Decolonization -) 1 applic TP [facility] Last Admin: 09/13/18 21:41 Dose: 1 applic Folic Acid (Folic Acid -) 1 mg PO DAILY [facility] Last Admin: 09/14/18 09:40 Dose: 1 mg Hydralazine HCl (Apresoline -) 100 mg PO TID [facility] Last Admin: 09/14/18 06:01 Dose: 100 mg Insulin Aspart (Novolog Vial Sliding Scale -) 1 vial SQ TIDAC [facility]; Protocol Last Admin: 09/14/18 11:52 Dose: 2 units Insulin Detemir (Levemir Vial) 24 units SQ [facility] Last Admin: 09/13/18 22:19 Dose: 24 units Insulin Detemir (Levemir Vial) 10 units SQ DAILY@0800 [facility] Last Admin: 09/14/18 08:16 Dose: 10 units Labetalol HCl (Normodyne -) 200 mg PO BID [facility] Last Admin: 09/14/18 09:40 Dose: 200 mg Pantoprazole Sodium (Protonix -) 40 mg PO DAILY [facility] Last Admin: 09/14/18 09:40 Dose: 40 mg Prednisone (Deltasone -) 20 mg PO DAILY [facility] Last Admin: 09/14/18 09:40 Dose: 20 mg Sodium Bicarbonate (Sodium Bicarbonate -) 650 mg PO BID [facility] Last Admin: 09/14/18 09:40 Dose: 650 mg Warfarin Sodium (Coumadin -) 5 mg PO DAILY@1800 [facility] Last Admin: 09/13/18 18:07 Dose: 5 mg Gen: Awake and alert, NAD Heart: RRR Lung: scattered bilateral rhonchi, no wheeze Abd: soft, nontender Ext: no edema Laboratory Results - last 24 hr 09/11/18 09/13/18 09/13/18 05:09 05:26 12:41 WBC RBC Hgb Hct MCV MCH MCHC RDW Plt Count MPV Absolute Neuts (auto) Neutrophils % Neutrophils % (Manual) Band Neutrophils % Lymphocytes % Lymphocytes % (Manual) Monocytes % Monocytes % (Manual) Eosinophils % Eosinophils % (Manual) Basophils % Basophils % (Manual) Myelocytes % (Man) Promyelocytes % (Man) Blast Cells % (Manual) Nucleated RBC % Metamyelocytes Hypochromia Platelet Estimate Polychromasia Poikilocytosis Anisocytosis Microcytosis Macrocytosis PT with INR INR Sodium Potassium Chloride Carbon Dioxide Anion Gap BUN Creatinine Est GFR (CKD-EPI)AfAm Est GFR (CKD-EPI)NonAf POC Glucometer Random Glucose Calcium Phosphorus Magnesium Iron 142 H TIBC 203 L Iron Saturation 70 H Unsaturated IBC 61 L Ferritin 393.0 H Total Bilirubin AST ALT Alkaline Phosphatase Total Protein Albumin SHA Screen Negative 09/13/18 09/13/18 09/14/18 16:26 22:16 05:45 WBC 8.2 RBC 2.45 L Hgb 7.9 L Hct 23.5 L MCV 96.0 MCH 32.5 MCHC 33.8 RDW 15.3 Plt Count 173 MPV 9.3 Absolute Neuts (auto) 7.5 Neutrophils % 91.7 H Neutrophils % (Manual) 90.8 H Band Neutrophils % 0.0 Lymphocytes % 3.0 L D Lymphocytes % (Manual) 4.1 L D Monocytes % 5.2 Monocytes % (Manual) 4 D Eosinophils % 0.0 Eosinophils % (Manual) 0.0 Basophils % 0.1 Basophils % (Manual) 0.0 Myelocytes % (Man) 1 D Promyelocytes % (Man) 0 Blast Cells % (Manual) 0 Nucleated RBC % 0 Metamyelocytes 0 Hypochromia 0 Platelet Estimate Normal Polychromasia 0 Poikilocytosis 0 Anisocytosis 0 Microcytosis 0 Macrocytosis 0 PT with INR INR Sodium Potassium Chloride Carbon Dioxide Anion Gap BUN Creatinine Est GFR (CKD-EPI)AfAm Est GFR (CKD-EPI)NonAf POC Glucometer 116 363 Random Glucose Calcium Phosphorus Magnesium Iron TIBC Iron Saturation Unsaturated IBC Ferritin Total Bilirubin AST ALT Alkaline Phosphatase Total Protein Albumin SHA Screen 09/14/18 09/14/18 09/14/18 05:45 05:45 05:49 WBC RBC Hgb Hct MCV MCH MCHC RDW Plt Count MPV Absolute Neuts (auto) Neutrophils % Neutrophils % (Manual) Band Neutrophils % Lymphocytes % Lymphocytes % (Manual) Monocytes % Monocytes % (Manual) Eosinophils % Eosinophils % (Manual) Basophils % Basophils % (Manual) Myelocytes % (Man) Promyelocytes % (Man) Blast Cells % (Manual) Nucleated RBC % Metamyelocytes Hypochromia Platelet Estimate Polychromasia Poikilocytosis Anisocytosis Microcytosis Macrocytosis PT with INR 19.60 H INR 1.65 H Sodium 142 Potassium 4.9 Chloride 112 H Carbon Dioxide 20 L Anion Gap 10 BUN 112.7 H* Creatinine 5.1 H Est GFR (CKD-EPI)AfAm 8.66 Est GFR (CKD-EPI)NonAf 7.47 POC Glucometer 277 Random Glucose 317 H* Calcium 7.2 L Phosphorus 6.0 H Magnesium 1.9 Iron TIBC Iron Saturation Unsaturated IBC Ferritin Total Bilirubin 0.3 AST 7 L ALT 18 Alkaline Phosphatase 36 L Total Protein 4.9 L Albumin 2.2 L SHA Screen 09/14/18 11:50 WBC RBC Hgb Hct MCV MCH MCHC RDW Plt Count MPV Absolute Neuts (auto) Neutrophils % Neutrophils % (Manual) Band Neutrophils % Lymphocytes % Lymphocytes % (Manual) Monocytes % Monocytes % (Manual) Eosinophils % Eosinophils % (Manual) Basophils % Basophils % (Manual) Myelocytes % (Man) Promyelocytes % (Man) Blast Cells % (Manual) Nucleated RBC % Metamyelocytes Hypochromia Platelet Estimate Polychromasia Poikilocytosis Anisocytosis Microcytosis Macrocytosis PT with INR INR Sodium Potassium Chloride Carbon Dioxide Anion Gap BUN Creatinine Est GFR (CKD-EPI)AfAm Est GFR (CKD-EPI)NonAf POC Glucometer 166 Random Glucose Calcium Phosphorus Magnesium Iron TIBC Iron Saturation Unsaturated IBC Ferritin Total Bilirubin AST ALT Alkaline Phosphatase Total Protein Albumin SHA Screen ASSESSMENT AND PLAN: Acute Hypoxic Respiratory Failure Pneumonia Acute on Chronic Diastolic Heart Failure Atrial Fibrillation Pulmonary HTN CKD IV CAD HTN DM - Zosyn completed 7 days - Prednisone - inhaled bronchodilators standing and PRN - O2 to keep Spo2 >90% - Lasix per Renal - continue anticoagulation - D/C planning Dr Garner
--- NOTE | 2018-09-14 13:26 | PN ---
Physical Exam: SUBJECTIVE: Patient seen and examined. Pt slept with BiPAP overnight. She does not complain of worsening SOB, CP, or cough. Pt feels very tired. OBJECTIVE: Vital Signs Period Temp Pulse Resp BP Sys/Renee Pulse Ox Last 24 Hr 98 F-98.2 F 65-83 19-22 119-163/49-96 98-98 GENERAL: The patient is awake, alert, and fully oriented, in no acute distress. Breathing on NC. HEAD: Normal with no signs of trauma. EYES: PERRL, extraocular movements intact, sclera anicteric, conjunctiva clear. No ptosis. ENT: Ears normal, nares patent, oropharynx clear without exudates, moist mucous membranes. NECK: Trachea midline, full range of motion, supple. LUNGS: Mildly coarse breath sounds, but improving. No wheezes, no crackles. Less accessory muscle use when sitting up then previous HEART: Regular rate and rhythm, S1, S2, 2/6 SM a RUSB ABDOMEN: Soft, nontender, nondistended, normoactive bowel sounds, no guarding, no rebound, no hepatosplenomegaly, no masses. EXTREMITIES: 2+ pulses, warm, well-perfused, 1+ edema, improving NEUROLOGICAL: Cranial nerves II through XII grossly intact. Normal speech, gait not observed. PSYCH: Normal mood, normal affect. SKIN: Warm, dry, normal turgor, no rashes or lesions noted Laboratory Results - last 24 hr CBC, BMP 09/14/18 05:45 09/14/18 05:45 Active Medications Acetaminophen (Tylenol -) 650 mg PO Q4H PRN PRN Reason: FEVER Albuterol Sulfate (Ventolin 0.083% Nebulizer Soln -) 1 amp NEB Q4H PRN PRN Reason: SHORT OF BREATH/WHEEZING Albuterol/Ipratropium (Duoneb -) 1 amp NEB RQID [facility] Last Admin: 09/14/18 11:33 Dose: 1 amp Amlodipine Besylate (Norvasc -) 10 mg PO DAILY [facility] Last Admin: 09/14/18 09:40 Dose: 10 mg Budesonide/Formoterol Fumarate (Symbicort 160/4.5mcg -) 2 puff IH BID [facility] Last Admin: 09/14/18 09:40 Dose: 2 puff Calcium Acetate (Phoslo -) 667 mg PO TIDCM [facility] Chlorhexidine Gluconate (Hibiclens For Decolonization -) 1 applic TP HS [facility] Last Admin: 09/13/18 21:41 Dose: 1 applic Folic Acid (Folic Acid -) 1 mg PO DAILY [facility] Last Admin: 09/14/18 09:40 Dose: 1 mg Hydralazine HCl (Apresoline -) 100 mg PO TID [facility] Last Admin: 09/14/18 06:01 Dose: 100 mg Insulin Aspart (Novolog Vial Sliding Scale -) 1 vial SQ TIDAC [facility]; Protocol Last Admin: 09/14/18 11:52 Dose: 2 units Insulin Detemir (Levemir Vial) 24 units SQ HS [facility] Last Admin: 09/13/18 22:19 Dose: 24 units Insulin Detemir (Levemir Vial) 10 units SQ DAILY@0800 [facility] Last Admin: 09/14/18 08:16 Dose: 10 units Labetalol HCl (Normodyne -) 200 mg PO BID [facility] Last Admin: 09/14/18 09:40 Dose: 200 mg Pantoprazole Sodium (Protonix -) 40 mg PO DAILY [facility] Last Admin: 09/14/18 09:40 Dose: 40 mg Prednisone (Deltasone -) 20 mg PO DAILY [facility] Last Admin: 09/14/18 09:40 Dose: 20 mg Sodium Bicarbonate (Sodium Bicarbonate -) 650 mg PO BID [facility] Last Admin: 09/14/18 09:40 Dose: 650 mg Warfarin Sodium (Coumadin -) 5 mg PO DAILY@1800 [facility] Last Admin: 09/13/18 18:07 Dose: 5 mg ASSESSMENT/PLAN: Pt. is a 77 y.o. F w/ PMHx. of HTN, NIDDM, Afib(s/p ablation on Coumadin), LLE DVT, CHFpEF, DE( s/p catherization), CKD Stage 4, GERD, and over active bladder presents with PNA. #Acute hypoxic respiratory failure 2/2 aspiration PNA Completed 7 day course of Zosyn 2.25mg Prednisone taper, 20mg po daily, cont duonebs prn Pt being monitored on NC and BiPAP at pm Per Dr. To, hold off diuresis #JOSE on CKD Stage 5 Cr: 5.1, stable (baseline 3.6); BUN: 111.9; eGFR: 14.65 Cont to monitor volume status Nephro on board, hold off diuretics and fluids for now. Declines HD #Afib EKG: NSR, Q waves in V1, QTc: 450 Labetolol for now due to HTN INR: 1.65, increase coumadin from 5mg to 7.5mg #HTN, better controlled Hydralazine 100mg TID po Amlodipine to 10mg po daily Labetolol 100mg BID #CHFpEF BNP: 5214.1, continue to monitor Hold Lasix for now Echo (08/23/18) EF 60-65%. #IDDM Glucose levels poorly controlled Cont Levemir 24units SQ HS and 10 units in am. Sliding scale SQ TIDAC Insulin requirements will likely improve with steroids taper #Anemia Hgb deceasing (7.9), cont to monitor FOBT: Neg LDH: 247, haptoglobin 451, ruled out hemolyzing GI prophylaxis 40mg pantoprazole daily #FEN Hold fluids for now Routine BMP monitoring Initiate diet as tolerated #DVT Ppx. Coumadin 7.5mg #Dispo Monitor on tele Pt.'s daughter left her number ([phone] [place] [phone]) for updates Visit type - Emergency Visit Emergency Visit: No - New Patient This patient is new to me today: No - Critical Care Critical Care patient: Yes Total Critical Care Time (in minutes): 45 Critical Care Statement: The care of this patient involved high complexity decision making to prevent further life threatening deterioration of the patient 's condition and/or to evaluate & treat vital organ system(s) failure or risk of failure. ATTENDING PHYSICIAN STATEMENT I saw and evaluated the patient. I reviewed the resident's note and discussed the case with the resident. I agree with the resident's findings and plan as documented. SUBJECTIVE: OBJECTIVE: ASSESSMENT AND PLAN:
--- NOTE | 2018-09-14 14:16 | PN ---
Progress Note (short form) - Note Progress Note: Renal follow up for CKD Pt seen and examined in Tele awake and alert has mild sob still making urine no chest pain, fever or chills no confusion, lethargy, weakness, metallic taste in the mouth or nausea Vital Signs Temperature 98.2 F 09/14/18 06:00 Pulse Rate 75 09/14/18 06:00 Respiratory Rate 22 H 09/14/18 06:00 Blood Pressure 155/54 L 09/14/18 06:00 O2 Sat by Pulse Oximetry (%) 98 09/14/18 08:26 Intake & Output 09/11/18 09/12/18 09/13/18 09/14/18 23:59 23:59 23:59 23:59 Intake Total 2344 900 1440 120 Output Total 1900 1450 1600 1200 Balance 444 550 -160 -1080 Weight 98.928 kg 98.838 kg 100.924 kg NAD RRR dec BS soft NT/ND no LE or sacral edema CBC, BMP 09/14/18 05:45 09/14/18 05:45 Current Medications Acetaminophen (Tylenol -) 650 mg PO Q4H PRN PRN Reason: FEVER Albuterol Sulfate (Ventolin 0.083% Nebulizer Soln -) 1 amp NEB Q4H PRN PRN Reason: SHORT OF BREATH/WHEEZING Albuterol/Ipratropium (Duoneb -) 1 amp NEB RQID [facility] Last Admin: 09/14/18 11:33 Dose: 1 amp Amlodipine Besylate (Norvasc -) 10 mg PO DAILY [facility] Last Admin: 09/14/18 09:40 Dose: 10 mg Budesonide/Formoterol Fumarate (Symbicort 160/4.5mcg -) 2 puff IH BID [facility] Last Admin: 09/14/18 09:40 Dose: 2 puff Calcium Acetate (Phoslo -) 667 mg PO TIDCM [facility] Chlorhexidine Gluconate (Hibiclens For Decolonization -) 1 applic TP HS [facility] Last Admin: 09/13/18 21:41 Dose: 1 applic Folic Acid (Folic Acid -) 1 mg PO DAILY [facility] Last Admin: 09/14/18 09:40 Dose: 1 mg Hydralazine HCl (Apresoline -) 100 mg PO TID [facility] Last Admin: 09/14/18 06:01 Dose: 100 mg Insulin Aspart (Novolog Vial Sliding Scale -) 1 vial SQ TIDAC [facility]; Protocol Last Admin: 09/14/18 11:52 Dose: 2 units Insulin Detemir (Levemir Vial) 24 units SQ HS [facility] Last Admin: 09/13/18 22:19 Dose: 24 units Insulin Detemir (Levemir Vial) 10 units SQ DAILY@0800 [facility] Last Admin: 09/14/18 08:16 Dose: 10 units Labetalol HCl (Normodyne -) 200 mg PO BID [facility] Last Admin: 09/14/18 09:40 Dose: 200 mg Pantoprazole Sodium (Protonix -) 40 mg PO DAILY [facility] Last Admin: 09/14/18 09:40 Dose: 40 mg Prednisone (Deltasone -) 20 mg PO DAILY [facility] Last Admin: 09/14/18 09:40 Dose: 20 mg Sodium Bicarbonate (Sodium Bicarbonate -) 650 mg PO BID [facility] Last Admin: 09/14/18 09:40 Dose: 650 mg Warfarin Sodium (Coumadin -) 5 mg PO DAILY@1800 [facility] Last Admin: 09/13/18 18:07 Dose: 5 mg 77 year old woman with history of CKD stage 4/5 (baseline Cr 3.5), hypertension, COPD, CHF presented from home with SOB. #JOSE on CKD #acute dyspnea #COPD #CKD stage 4/5 with recent JOSE now resolved #CHF #Hypertension Renal function is stable despite high BUN no overt uremic symptoms. No electrolyte or metabolic acid- base disturbance preset at this time. no urgent indication for [employer]. Pt has made it known that she does not want dialysis. Pt now has mild sacral edema, would restart home dose of lasix 40mg PO daily. continue sodium bicarb BID continue present antihypertensives including labetalol, hydralazine (SHA negative), and amlodipine 10mg will need to follow up within in 1 week if discharged will give Epogen 20k units today SC d/c matheus Thank you Tylor To DO
[2018-09-14] MEDS: CALCIUM ACETATE 667 MG CAPSULE (FP) PO SCH (14:54)
--- NOTE | 2018-09-14 15:54 | PN ---
Progress Note, Physician History of Present Illness: stable - Current Medication List Current Medications: Active Medications Acetaminophen (Tylenol -) 650 mg PO Q4H PRN PRN Reason: FEVER Albuterol Sulfate (Ventolin 0.083% Nebulizer Soln -) 1 amp NEB Q4H PRN PRN Reason: SHORT OF BREATH/WHEEZING Albuterol/Ipratropium (Duoneb -) 1 amp NEB RQID [facility] Last Admin: 09/14/18 11:33 Dose: 1 amp Amlodipine Besylate (Norvasc -) 10 mg PO DAILY [facility] Last Admin: 09/14/18 09:40 Dose: 10 mg Budesonide/Formoterol Fumarate (Symbicort 160/4.5mcg -) 2 puff IH BID [facility] Last Admin: 09/14/18 09:40 Dose: 2 puff Calcium Acetate (Phoslo -) 667 mg PO TIDCM [facility] Last Admin: 09/14/18 14:54 Dose: 667 mg Chlorhexidine Gluconate (Hibiclens For Decolonization -) 1 applic TP HS [facility] Last Admin: 09/13/18 21:41 Dose: 1 applic Folic Acid (Folic Acid -) 1 mg PO DAILY [facility] Last Admin: 09/14/18 09:40 Dose: 1 mg Hydralazine HCl (Apresoline -) 100 mg PO TID [facility] Last Admin: 09/14/18 14:53 Dose: 100 mg Insulin Aspart (Novolog Vial Sliding Scale -) 1 vial SQ TIDAC [facility]; Protocol Last Admin: 09/14/18 11:52 Dose: 2 units Insulin Detemir (Levemir Vial) 24 units SQ [facility] Last Admin: 09/13/18 22:19 Dose: 24 units Insulin Detemir (Levemir Vial) 10 units SQ DAILY@0800 [facility] Last Admin: 09/14/18 08:16 Dose: 10 units Labetalol HCl (Normodyne -) 200 mg PO BID [facility] Last Admin: 09/14/18 09:40 Dose: 200 mg Pantoprazole Sodium (Protonix -) 40 mg PO DAILY [facility] Last Admin: 09/14/18 09:40 Dose: 40 mg Prednisone (Deltasone -) 20 mg PO DAILY [facility] Last Admin: 09/14/18 09:40 Dose: 20 mg Sodium Bicarbonate (Sodium Bicarbonate -) 650 mg PO BID [facility] Last Admin: 09/14/18 09:40 Dose: 650 mg Warfarin Sodium (Coumadin -) 5 mg PO DAILY@1800 [facility] Last Admin: 09/13/18 18:07 Dose: 5 mg - Objective Vital Signs: Vital Signs Temperature 98.2 F 09/14/18 06:00 Pulse Rate 75 09/14/18 06:00 Respiratory Rate 22 H 09/14/18 06:00 Blood Pressure 155/54 L 09/14/18 06:00 O2 Sat by Pulse Oximetry (%) 98 09/14/18 08:26 Constitutional: Yes: No Distress, Calm Cardiovascular: Yes: S1, S2 Respiratory: Yes: Regular, CTA Bilaterally Gastrointestinal: Yes: Normal Bowel Sounds, Soft Musculoskeletal: Yes: WNL Extremities: Yes: Other Neurological: Yes: Alert Psychiatric: Yes: Alert Labs: CBC, BMP 09/14/18 05:45 09/14/18 05:45 INR, PTT INR 1.65 (0.83-1.09) H 09/14/18 05:45 Assessment/Plan Acute Hypoxic Respiratory Failure Pneumonia Acute on Chronic Diastolic Heart Failure Atrial Fibrillation Pulmonary HTN CKD IV CAD HTN DM plan 'continue close watch resp support cx results noted close watch'
[2018-09-14] MEDS: WARFARIN NA 7.5 MG TABLET (FP) PO SCH (17:46)
--- NOTE | 2018-09-14 17:50 | PN ---
Teaching Attending Note Name of Resident: Herminia Russell ATTENDING PHYSICIAN STATEMENT I saw and evaluated the patient. I reviewed the resident's note and discussed the case with the resident. I agree with the resident's findings and plan as documented. SUBJECTIVE: No fever or chills. cont to have SOB and feels tired. OBJECTIVE: NAD, awake, pleasant CV: RRR, 2/6 SM at RUSB. Lungs: minimal crackles at bases, scattered wheezing Ext : 1+ pitting edema on legs. no erythema or tenderness ASSESSMENT AND PLAN: 77 y/o lady with h/o CAD, s/p VA, AFib , HTN, diastolic CHF, pulm HTN, TREVON, DM , LLE DVT, CKD 5, GERD and other medical problems who was recently discharged after being treated for COPD, now she presented with fever and with SOB and was found to have b/l infiltrates with acute hypoxic resp failure 1- Acute hypoxic resp failure: due to b/l PNA and acute COPD exacerbation. - cont prednisone taper and breathing treatment. - off Abx - resume her home dose lasix 2- HTN : better controlled. cont HZN, and norvasc, and labetalol 200 BID 3- H/o A fib: - cont labetalol instead of the cardizem - since off abx, increase coumadin to 7.5 mg 4- DM: cont levemir 24 units HS, and 10 units in am. Cont SSI expect insulin requirements to improve with steroids taper 5- JOSE on CKD 5: Stable crd/w Dr. To. resume her home dose lasix 40 daily Dispo:ready for dc but rehab placement is pending
[2018-09-14] MEDS: CHLORHEXIDINE GLUCONATE 4% CLEANSER FOR DECOLONIZATION TP SCH (21:59)
[2018-09-15 06:39] LABS: INR 1.58 (0.83-1.09); PROTHROMBIN TIME (PATIENT) 18.7 SEC (9.7-13.0)
[2018-09-15 06:41] LABS: ALBUMIN 2.2 g/dl (3.4-5.0); BILIRUBIN,TOTAL 0.4 mg/dL (0.2-1); CALCIUM 7.2 mg/dL (8.5-10.1); CREATININE 4.9 mg/dL (0.55-1.3); HEMATOCRIT 23.3 % (32.4-45.2); HEMOGLOBIN 7.7 GM/dL (10.7-15.3); MCH 32.1 pg (25.7-33.7); MCHC 33.2 g/dl (32.0-36.0); MEAN CELL VOLUME 96.5 fl (80-96); PLATELET COUNT 207 K/MM3 (134-434); RBC 2.41 M/mm3 (3.60-5.2); RDW 15.4 % (11.6-15.6); TOT PROT 5.1 g/dl (6.4-8.2); WHITE BLOOD COUNT 8.7 K/mm3 (4.0-10.0)
[2018-09-15] MEDS: hydrALAZINE HCL 50 MG TABLET (FP) PO SCH ×3 (06:47→22:28)
[2018-09-15] MEDS: INSULIN SLIDING SCALE (NOVOLOG) 1 VIAL SQ SCH ×3 (06:48→15:47)
[2018-09-15 06:55] LABS: BLOOD UREA NITROGEN 115.1 mg/dL (7-18)
[2018-09-15] MEDS: ALBUTEROL SO4 2.5/IPRATROPIUM 0.5 INH SOL 3 ML VIAL.NEB. NEB SCH ×4 (08:30→19:58)
[2018-09-15] MEDS: CALCIUM ACETATE 667 MG CAPSULE (FP) PO SCH ×4 (08:31→18:20)
--- NOTE | 2018-09-15 08:42 | PN ---
Teaching Attending Note Name of Resident: Herminia Russell ATTENDING PHYSICIAN STATEMENT I saw and evaluated the patient. I reviewed the resident's note and discussed the case with the resident. I agree with the resident's findings and plan as documented. SUBJECTIVE: Patient is feeling better with no acute distress, on NC oxygen continuous. OBJECTIVE: Vital Signs Temperature 98.1 F 09/15/18 06:00 Pulse Rate 66 09/15/18 06:00 Respiratory Rate 18 09/15/18 06:00 Blood Pressure 150/61 09/15/18 06:00 O2 Sat by Pulse Oximetry (%) 100 09/15/18 08:29 GENERAL: The patient is awake, alert, and fully oriented, in no acute distress. HEAD: Normal with no signs of trauma. EYES: PERRL, extraocular movements intact, sclera anicteric, conjunctiva clear. ENT: Ears normal, oropharynx clear without exudates, MMM, NECK: Trachea midline, full range of motion, supple. LUNGS: Breath sounds equal, clear to auscultation bilaterally, no wheezes, no crackles, no accessory muscle use. HEART: Regular rate and rhythm, S1, S2 positive, ANDREA 2/6, rub or gallop. ABDOMEN: Soft, nontender, nondistended, normoactive bowel sounds, no guarding, no rebound, no hepatosplenomegaly, no masses. EXTREMITIES: 2+ pulses, warm, well-perfused, no edema. NEUROLOGICAL: Cranial nerves II through XII grossly intact. Normal speech, gait not observed. PSYCH: Normal mood, normal affect. SKIN: Warm, dry, normal turgor, no rashes or lesions noted CBCD WBC 8.7 K/mm3 (4.0-10.0) 09/15/18 06:00 RBC 2.41 M/mm3 (3.60-5.2) L 09/15/18 06:00 Hgb 7.7 GM/dL (10.7-15.3) L 09/15/18 06:00 Hct 23.3 % (32.4-45.2) L 09/15/18 06:00 MCV 96.5 fl (80-96) H 09/15/18 06:00 MCHC 33.2 g/dl (32.0-36.0) 09/15/18 06:00 RDW 15.4 % (11.6-15.6) 09/15/18 06:00 Plt Count 207 K/MM3 (134-434) 09/15/18 06:00 MPV 9.0 fl (7.5-11.1) 09/15/18 06:00 CMP Sodium 142 mmol/L (136-145) 09/15/18 06:00 Potassium 5.0 mmol/L (3.5-5.1) 09/15/18 06:00 Chloride 113 mmol/L (98-107) H 09/15/18 06:00 Carbon Dioxide 20 mmol/L (21-32) L 09/15/18 06:00 Anion Gap 9 MMOL/L (8-16) 09/15/18 06:00 BUN 115.1 mg/dL (7-18) H* 09/15/18 06:00 Creatinine 4.9 mg/dL (0.55-1.3) H 09/15/18 06:00 Random Glucose 124 mg/dL (74-106) H 09/15/18 06:00 Calcium 7.2 mg/dL (8.5-10.1) L 09/15/18 06:00 Total Bilirubin 0.4 mg/dL (0.2-1) 09/15/18 06:00 AST 7 U/L (15-37) L 09/15/18 06:00 ALT 19 U/L (13-61) 09/15/18 06:00 Alkaline Phosphatase 34 U/L (45-117) L 09/15/18 06:00 Total Protein 5.1 g/dl (6.4-8.2) L 09/15/18 06:00 Albumin 2.2 g/dl (3.4-5.0) L 09/15/18 06:00 CARDIAC ENZYMES Creatine Kinase 141 U/L (26-192) 09/07/18 14:23 Troponin I 0.05 ng/ml (0.00-0.05) 09/07/18 14:23 Current Medications Generic Name Dose Route Start Last Admin Trade Name Freq PRN Reason Stop Dose Admin Acetaminophen 650 mg 09/08/18 19:55 Tylenol - PO Q4H PRN FEVER Albuterol Sulfate 1 amp 09/07/18 21:00 Ventolin 0.083% Nebulizer Soln - NEB Q4H PRN SHORT OF BREATH/WHEEZING Albuterol/Ipratropium 1 amp 09/08/18 08:00 09/15/18 08:30 Duoneb - NEB 1 amp RQID [facility] Administration Amlodipine Besylate 10 mg 09/10/18 10:00 09/14/18 09:40 Norvasc - PO 10 mg DAILY [facility] Administration Budesonide/Formoterol Fumarate 2 puff 09/07/18 22:00 09/14/18 21:59 Symbicort 160/4.5mcg - IH 2 puff BID [facility] Administration Calcium Acetate 667 mg 09/14/18 12:00 09/14/18 14:54 Phoslo - PO 667 mg TIDCM [facility] Administration Chlorhexidine Gluconate 1 applic 09/07/18 22:00 09/14/18 21:59 Hibiclens For Decolonization - TP 1 applic HS [facility] Administration Folic Acid 1 mg 09/08/18 10:00 09/14/18 09:40 Folic Acid - PO 1 mg DAILY [facility] Administration Furosemide 40 mg 09/15/18 10:00 Lasix - PO DAILY [facility] Hydralazine HCl 100 mg 09/07/18 22:00 09/15/18 06:47 Apresoline - PO 100 mg TID [facility] Administration Insulin Aspart 1 vial 09/08/18 16:30 09/15/18 06:48 Novolog Vial Sliding Scale - SQ Not Given TIDAC [facility] Protocol Insulin Detemir 24 units 09/08/18 22:00 09/14/18 21:59 Levemir Vial SQ 24 units HS [facility] Administration Insulin Detemir 10 units 09/11/18 08:00 09/14/18 08:16 Levemir Vial SQ 10 units DAILY@0800 [facility] Administration Labetalol HCl 200 mg 09/12/18 22:00 09/14/18 21:59 Normodyne - PO 200 mg BID [facility] Administration Pantoprazole Sodium 40 mg 09/09/18 10:00 09/14/18 09:40 Protonix - PO 40 mg DAILY [facility] Administration Prednisone 20 mg 09/13/18 10:00 09/14/18 09:40 Deltasone - PO 20 mg DAILY [facility] Administration Sodium Bicarbonate 650 mg 09/07/18 22:00 09/14/18 21:59 Sodium Bicarbonate - PO 650 mg BID [facility] Administration Warfarin Sodium 7.5 mg 09/14/18 18:00 07/16/19 17:46 Coumadin - PO 7.5 mg DAILY@1800 [facility] Administration Home Medications Medication Instructions Recorded Folic Acid 1 mg PO DAILY 12/09/17 Sodium Bicarbonate - 650 mg PO BID #40 tablet 12/11/17 Warfarin Sodium [Coumadin] 7.5 mg PO HS 03/09/18 Diltiazem Cd [Cardizem Cd -] 120 mg PO DAILY 28 Days #28 03/11/18 cap.cd.24h Albuterol 0.083% Nebulizer Norma 1 amp NEB Q6H PRN #25 amp 09/03/18 [Ventolin 0.083% Nebulizer Soln -] Albuterol 2.5/Ipratropium 0.5 1 amp NEB RBID PRN #25 amp 09/03/18 [Duoneb -] Budesonide/Formeterol Fumarate 2 puff IH BID #25 inhaler 09/03/18 [SYMBICORT 160/4.5mcg -] Insulin (Levemir) [Levemir Vial] 24 units SQ HS units 09/03/18 hydrALAZINE HCL [Apresoline -] 100 mg PO TID #90 tablet 09/03/18 predniSONE [Deltasone -] See Taper PO ASDIR #18 tab 09/03/18 Laboratory Tests 12/09/17 12/10/17 09/07/18 12:40 07:10 12:51 PT with INR INR 1.44 H 1.60 H 2.14 H 09/11/18 09/12/18 09/13/18 05:09 05:45 05:26 PT with INR 44.90 H 39.40 H 24.90 H INR 3.75 H 3.30 H 2.09 H 09/14/18 09/15/18 05:45 05:40 PT with INR 19.60 H 18.70 H INR 1.65 H 1.58 H ASSESSMENT AND PLAN: Patient is a 77yo female with PMHx of CAD, s/p GA, AFib , HTN, diastolic CHF, pulm HTN, TREVON, DM , LLE DVT, CKD 5, GERD who was recently discharged after being treated for COPD, and now presented with fever and SOB and was found to have b/l infiltrates with acute hypoxic respiratory failure. # Acute hypoxic resp failure: due to b/l PNA completed IV antibiotic # Acute COPD exacerbation: cont prednisone taper and breathing treatment. continue lasix # HTN : better controlled. cont Hydralazin, and norvasc, and labetalol 200 BID # H/o A fib: on labetalol instead of the cardizem , increased coumadin to 7.5 mg , INR is 1.58 #T2DM: cont levemir 24 units HS, and 10 units in am. Cont SSI, continue steroids taper # JOSE on CKD 5: Stable crd/w Dr. To. resume her home dose lasix 40 daily Dispo: ready for dc but rehab placement is pending
[2018-09-15] MEDS: INSULIN (LEVEMIR) 100 UNITS/ML UNITS SQ SCH ×2 (09:38→22:33)
[2018-09-15] MEDS: LABETALOL HCL 200 MG TABLET (FP) PO SCH ×2 (11:28→22:28)
[2018-09-15] MEDS: PANTOPRAZOLE 40 MG TABLET (FP) PO SCH (11:29)
[2018-09-15] MEDS: predniSONE 20 MG TABLET (UD) PO SCH (11:29)
[2018-09-15] MEDS: FUROSEMIDE 40 MG TABLET (FP) PO SCH (11:29)
[2018-09-15] MEDS: FOLIC ACID 1 MG TABLET (FP) PO SCH (11:29)
[2018-09-15] MEDS: amLODIPine BESYLATE 10 MG TABLET (FP) PO SCH (11:29)
[2018-09-15] MEDS: SODIUM BICARBONATE 650 MG TABLET PO SCH ×2 (11:30→22:28)
[2018-09-15] MEDS: BUDESONIDE/FORMETEROL FUMARATE 160/4.5 mcg INHALER IH SCH ×2 (11:35→22:29)
--- NOTE | 2018-09-15 13:55 | PN ---
Progress Note (short form) - Note Progress Note: PULMONARY Breathing about the same. No cough or wheezing. Vital Signs Period Temp Pulse Resp BP Sys/Renee Pulse Ox Last 24 Hr 97.5 F-98.8 F 66-83 18-19 143-169/41-61 97-100 Intake & Output 09/12/18 09/13/18 09/14/18 09/15/18 23:59 23:59 23:59 23:59 Intake Total 900 1440 415 230 Output Total 1450 1600 2250 Balance -550 -160 -1835 230 Weight 98.838 kg 100.924 kg Gen: mildly tachypneic at rest Heart: RRR Lung: decreased breath sounds at the bases Abd: soft, nontender Ext: no edema CBC, BMP 09/15/18 06:00 09/15/18 06:00 Active Medications Acetaminophen (Tylenol -) 650 mg PO Q4H PRN PRN Reason: FEVER Albuterol Sulfate (Ventolin 0.083% Nebulizer Soln -) 1 amp NEB Q4H PRN PRN Reason: SHORT OF BREATH/WHEEZING Albuterol/Ipratropium (Duoneb -) 1 amp NEB RQID [facility] Last Admin: 09/15/18 12:01 Dose: 1 amp Amlodipine Besylate (Norvasc -) 10 mg PO DAILY [facility] Last Admin: 09/15/18 11:29 Dose: 10 mg Budesonide/Formoterol Fumarate (Symbicort 160/4.5mcg -) 2 puff IH BID [facility] Last Admin: 09/15/18 11:35 Dose: 2 puff Calcium Acetate (Phoslo -) 667 mg PO TIDCM [facility] Last Admin: 09/15/18 11:31 Dose: 667 mg Chlorhexidine Gluconate (Hibiclens For Decolonization -) 1 applic TP HS [facility] Last Admin: 09/14/18 21:59 Dose: 1 applic Folic Acid (Folic Acid -) 1 mg PO DAILY [facility] Last Admin: 09/15/18 11:29 Dose: 1 mg Furosemide (Lasix -) 40 mg PO DAILY [facility] Last Admin: 09/15/18 11:29 Dose: 40 mg Hydralazine HCl (Apresoline -) 100 mg PO TID [facility] Last Admin: 09/15/18 06:47 Dose: 100 mg Insulin Aspart (Novolog Vial Sliding Scale -) 1 vial SQ TIDAC [facility]; Protocol Last Admin: 09/15/18 11:35 Dose: Not Given Insulin Detemir (Levemir Vial) 24 units SQ HS [facility] Last Admin: 09/14/18 21:59 Dose: 24 units Insulin Detemir (Levemir Vial) 10 units SQ DAILY@0800 [facility] Last Admin: 09/15/18 09:38 Dose: 10 units Labetalol HCl (Normodyne -) 200 mg PO BID [facility] Last Admin: 09/15/18 11:28 Dose: 200 mg Pantoprazole Sodium (Protonix -) 40 mg PO DAILY [facility] Last Admin: 09/15/18 11:29 Dose: 40 mg Prednisone (Deltasone -) 20 mg PO DAILY [facility] Last Admin: 09/15/18 11:29 Dose: 20 mg Sodium Bicarbonate (Sodium Bicarbonate -) 650 mg PO BID [facility] Last Admin: 09/15/18 11:30 Dose: 650 mg Warfarin Sodium (Coumadin -) 7.5 mg PO DAILY@1800 [facility] Last Admin: 09/14/18 17:46 Dose: 7.5 mg A/P Acute Hypoxic Respiratory Failure improving Pneumonia Acute on Chronic Diastolic Heart Failure Atrial Fibrillation Pulmonary HTN CKD IV CAD HTN DM - completed antibiotics - prednisone taper - inhaled bronchodilators standing and PRN - O2 to keep Spo2 >90% - lasix - continue anticoagulation - d/c planning in progress
--- NOTE | 2018-09-15 15:10 | PN ---
Progress Note (short form) - Note Progress Note: Renal follow up for CKD Pt seen and examined in Tele awake and alert sob unchanged but comfortable no chest pain, fever, or chills appetite is good making urine Vital Signs Temperature 97.5 F L 09/15/18 13:34 Pulse Rate 66 09/15/18 13:34 Respiratory Rate 18 09/15/18 13:34 Blood Pressure 150/61 09/15/18 06:00 O2 Sat by Pulse Oximetry (%) 100 09/15/18 11:15 Intake & Output 09/12/18 09/13/18 09/14/18 09/15/18 23:59 23:59 23:59 23:59 Intake Total 900 1440 415 450 Output Total 1450 1600 2250 Balance -550 -160 -1835 450 Weight 98.838 kg 100.924 kg NAD RRR dec BS soft NT/ND no LE or sacral edema CBC, BMP 09/15/18 06:00 09/15/18 06:00 Current Medications Acetaminophen (Tylenol -) 650 mg PO Q4H PRN PRN Reason: FEVER Albuterol Sulfate (Ventolin 0.083% Nebulizer Soln -) 1 amp NEB Q4H PRN PRN Reason: SHORT OF BREATH/WHEEZING Albuterol/Ipratropium (Duoneb -) 1 amp NEB RQID [facility] Last Admin: 09/15/18 12:01 Dose: 1 amp Amlodipine Besylate (Norvasc -) 10 mg PO DAILY [facility] Last Admin: 09/15/18 11:29 Dose: 10 mg Budesonide/Formoterol Fumarate (Symbicort 160/4.5mcg -) 2 puff IH BID [facility] Last Admin: 09/15/18 11:35 Dose: 2 puff Calcium Acetate (Phoslo -) 667 mg PO TIDCM [facility] Last Admin: 09/15/18 11:31 Dose: 667 mg Chlorhexidine Gluconate (Hibiclens For Decolonization -) 1 applic TP HS [facility] Last Admin: 09/14/18 21:59 Dose: 1 applic Folic Acid (Folic Acid -) 1 mg PO DAILY [facility] Last Admin: 09/15/18 11:29 Dose: 1 mg Furosemide (Lasix -) 40 mg PO DAILY [facility] Last Admin: 09/15/18 11:29 Dose: 40 mg Hydralazine HCl (Apresoline -) 100 mg PO TID [facility] Last Admin: 09/15/18 06:47 Dose: 100 mg Insulin Aspart (Novolog Vial Sliding Scale -) 1 vial SQ TIDAC [facility]; Protocol Last Admin: 09/15/18 11:35 Dose: Not Given Insulin Detemir (Levemir Vial) 24 units SQ HS [facility] Last Admin: 09/14/18 21:59 Dose: 24 units Insulin Detemir (Levemir Vial) 10 units SQ DAILY@0800 [facility] Last Admin: 09/15/18 09:38 Dose: 10 units Labetalol HCl (Normodyne -) 200 mg PO BID [facility] Last Admin: 09/15/18 11:28 Dose: 200 mg Pantoprazole Sodium (Protonix -) 40 mg PO DAILY [facility] Last Admin: 09/15/18 11:29 Dose: 40 mg Prednisone (Deltasone -) 20 mg PO DAILY [facility] Last Admin: 09/15/18 11:29 Dose: 20 mg Sodium Bicarbonate (Sodium Bicarbonate -) 650 mg PO BID [facility] Last Admin: 09/15/18 11:30 Dose: 650 mg Warfarin Sodium (Coumadin -) 7.5 mg PO DAILY@1800 [facility] Last Admin: 09/14/18 17:46 Dose: 7.5 mg 77 year old woman with history of CKD stage 4/5 (baseline Cr 3.5), hypertension, COPD, CHF presented from home with SOB. #JOSE on CKD #acute dyspnea #COPD #CKD stage 4/5 #CHF #Hypertension Renal function stable despite high BUN no overt uremic symptoms. No electrolyte or metabolic acid- base disturbance preset at this time. no urgent indication for [employer]. Pt has made it known that she does not want dialysis. continue Lasix 40mg Daily, can titrate as needed. Would avoid giving large IV doses if possible as it will cause fluid shifts and potentially worsen the renal function. continue sodium bicarb BID continue present antihypertensives including labetalol, hydralazine (SHA negative), and amlodipine 10mg will need to follow up within in 1 week if discharged Will given Epogen for Anemia (BIW) iron saturation is 70% Thank you Tylor To DO
--- NOTE | 2018-09-15 15:26 | PN ---
Progress Note, Physician History of Present Illness: stable no issues - Current Medication List Current Medications: Active Medications Acetaminophen (Tylenol -) 650 mg PO Q4H PRN PRN Reason: FEVER Albuterol Sulfate (Ventolin 0.083% Nebulizer Soln -) 1 amp NEB Q4H PRN PRN Reason: SHORT OF BREATH/WHEEZING Albuterol/Ipratropium (Duoneb -) 1 amp NEB RQID [facility] Last Admin: 09/15/18 12:01 Dose: 1 amp Amlodipine Besylate (Norvasc -) 10 mg PO DAILY [facility] Last Admin: 09/15/18 11:29 Dose: 10 mg Budesonide/Formoterol Fumarate (Symbicort 160/4.5mcg -) 2 puff IH BID [facility] Last Admin: 09/15/18 11:35 Dose: 2 puff Calcium Acetate (Phoslo -) 667 mg PO TIDCM [facility] Last Admin: 09/15/18 11:31 Dose: 667 mg Chlorhexidine Gluconate (Hibiclens For Decolonization -) 1 applic TP [facility] Last Admin: 09/14/18 21:59 Dose: 1 applic Folic Acid (Folic Acid -) 1 mg PO DAILY [facility] Last Admin: 09/15/18 11:29 Dose: 1 mg Furosemide (Lasix -) 40 mg PO DAILY [facility] Last Admin: 09/15/18 11:29 Dose: 40 mg Hydralazine HCl (Apresoline -) 100 mg PO TID [facility] Last Admin: 09/15/18 06:47 Dose: 100 mg Insulin Aspart ([facility]iding [facility] -) [facility] Last Admin: 09/15/18 11:35 Dose: Not Given Insulin Detemir (Levemir Vial) 24 units SQ [facility] Last Admin: 09/14/18 21:59 Dose: 24 units Insulin Detemir (Levemir Vial) 10 units SQ DAILY@0800 [facility] Last Admin: 09/15/18 09:38 Dose: 10 units Labetalol HCl (Normodyne -) 200 mg PO BID [facility] Last Admin: 09/15/18 11:28 Dose: 200 mg Pantoprazole Sodium (Protonix -) 40 mg PO DAILY [facility] Last Admin: 09/15/18 11:29 Dose: 40 mg Prednisone (Deltasone -) 20 mg PO DAILY [facility] Last Admin: 09/15/18 11:29 Dose: 20 mg Sodium Bicarbonate (Sodium Bicarbonate -) 650 mg PO BID [facility] Last Admin: 09/15/18 11:30 Dose: 650 mg Warfarin Sodium (Coumadin -) 7.5 mg PO DAILY@1800 [facility] Last Admin: 09/14/18 17:46 Dose: 7.5 mg - Objective Vital Signs: Vital Signs Temperature 97.5 F L 09/15/18 13:34 Pulse Rate 66 09/15/18 13:34 Respiratory Rate 18 09/15/18 13:34 Blood Pressure 150/61 09/15/18 06:00 O2 Sat by Pulse Oximetry (%) 100 09/15/18 11:15 Constitutional: Yes: No Distress, Calm Cardiovascular: Yes: S1, S2 Respiratory: Yes: Regular, CTA Bilaterally Gastrointestinal: Yes: Normal Bowel Sounds, Soft Musculoskeletal: Yes: WNL Extremities: Yes: WNL Neurological: Yes: Alert, Oriented Psychiatric: Yes: Alert, Oriented Labs: CBC, BMP 09/15/18 06:00 09/15/18 06:00 INR, PTT INR 1.58 (0.83-1.09) H 09/15/18 05:40 Assessment/Plan Acute Hypoxic Respiratory Failure Pneumonia Acute on Chronic Diastolic Heart Failure Atrial Fibrillation Pulmonary HTN CKD IV CAD HTN DM plan 'continue close watch resp support cx results noted close watch'
--- NOTE | 2018-09-15 15:43 | PN ---
Physical Exam: SUBJECTIVE: Patient seen and examined. Pt slept with BiPAP overnight. She does not complain of worsening SOB, CP, or cough. OBJECTIVE: Vital Signs Period Temp Pulse Resp BP Sys/Renee Pulse Ox Last 24 Hr 97.5 F-98.8 F 66-83 18-19 143-169/41-61 97-100 GENERAL: The patient is awake, alert, and fully oriented, in no acute distress. Breathing on NC. HEAD: Normal with no signs of trauma. EYES: PERRL, extraocular movements intact, sclera anicteric, conjunctiva clear. No ptosis. ENT: Ears normal, nares patent, oropharynx clear without exudates, moist mucous membranes. NECK: Trachea midline, full range of motion, supple. LUNGS: Mildly coarse breath sounds, but improving. No wheezes, no crackles. Less accessory muscle use when sitting up then previous HEART: Regular rate and rhythm, S1, S2, 2/6 SM a RUSB ABDOMEN: Soft, nontender, nondistended, normoactive bowel sounds, no guarding, no rebound, no hepatosplenomegaly, no masses. EXTREMITIES: 2+ pulses, warm, well-perfused, 1+ edema, improving NEUROLOGICAL: Cranial nerves II through XII grossly intact. Normal speech, gait not observed. PSYCH: Normal mood, normal affect. SKIN: Warm, dry, normal turgor, no rashes or lesions noted Laboratory Results - last 24 hr CBC, BMP 09/15/18 06:00 09/15/18 06:00 Active Medications Acetaminophen (Tylenol -) 650 mg PO Q4H PRN PRN Reason: FEVER Albuterol Sulfate (Ventolin 0.083% Nebulizer Soln -) 1 amp NEB Q4H PRN PRN Reason: SHORT OF BREATH/WHEEZING Albuterol/Ipratropium (Duoneb -) 1 amp NEB RQID [facility] Last Admin: 09/15/18 12:01 Dose: 1 amp Amlodipine Besylate (Norvasc -) 10 mg PO DAILY [facility] Last Admin: 09/15/18 11:29 Dose: 10 mg Budesonide/Formoterol Fumarate (Symbicort 160/4.5mcg -) 2 puff IH BID [facility] Last Admin: 09/15/18 11:35 Dose: 2 puff Calcium Acetate (Phoslo -) 667 mg PO TIDCM [facility] Last Admin: 09/15/18 11:31 Dose: 667 mg Chlorhexidine Gluconate (Hibiclens For Decolonization -) 1 applic TP HS [facility] Last Admin: 09/14/18 21:59 Dose: 1 applic Folic Acid (Folic Acid -) 1 mg PO DAILY [facility] Last Admin: 09/15/18 11:29 Dose: 1 mg Furosemide (Lasix -) 40 mg PO DAILY [facility] Last Admin: 09/15/18 11:29 Dose: 40 mg Hydralazine HCl (Apresoline -) 100 mg PO TID [facility] Last Admin: 09/15/18 06:47 Dose: 100 mg Insulin Aspart (Novolog Vial Sliding Scale -) 1 vial SQ TIDAC [facility]; Protocol Last Admin: 09/15/18 11:35 Dose: Not Given Insulin Detemir (Levemir Vial) 24 units SQ [facility] Last Admin: 09/14/18 21:59 Dose: 24 units Insulin Detemir (Levemir Vial) 10 units SQ DAILY@0800 [facility] Last Admin: 09/15/18 09:38 Dose: 10 units Labetalol HCl (Normodyne -) 200 mg PO BID [facility] Last Admin: 09/15/18 11:28 Dose: 200 mg Pantoprazole Sodium (Protonix -) 40 mg PO DAILY [facility] Last Admin: 09/15/18 11:29 Dose: 40 mg Prednisone (Deltasone -) 20 mg PO DAILY [facility] Last Admin: 09/15/18 11:29 Dose: 20 mg Sodium Bicarbonate (Sodium Bicarbonate -) 650 mg PO BID [facility] Last Admin: 09/15/18 11:30 Dose: 650 mg Warfarin Sodium (Coumadin -) 7.5 mg PO DAILY@1800 [facility] Last Admin: 09/14/18 17:46 Dose: 7.5 mg ASSESSMENT/PLAN: Pt. is a 77 y.o. F w/ PMHx. of HTN, NIDDM, Afib(s/p ablation on Coumadin), LLE DVT, CHFpEF, IN( s/p catherization), CKD Stage 4, GERD, and over active bladder presents with PNA. #Acute hypoxic respiratory failure 2/2 aspiration PNA Completed 7 day course of Zosyn 2.25mg Prednisone taper, 20mg po daily (day 3), cont duonebs prn Pt being monitored on NC and BiPAP at pm Per nephro, restart home dose of Lasix 40mg daily #JOSE on CKD Stage 5 Cr: 4.9, stable (baseline 3.6); BUN: 115.1; eGFR: 14.65 Cont to monitor volume status Nephro on board, lasix 40mg daily Declines HD #Afib EKG: NSR, Q waves in V1, QTc: 450 Labetolol for now due to HTN INR: 1.58, coumadin 7.5mg, cont to monitor #HTN, better controlled Hydralazine 100mg TID po Amlodipine to 10mg po daily Labetolol 100mg BID #CHFpEF BNP: 5214.1, continue to monitor Echo (08/23/18) EF 60-65%. Lasix as above #IDDM Cont Levemir 24units SQ HS and 10 units in am. Sliding scale SQ TIDAC Insulin requirements will likely improve with steroids taper #Anemia Hgb deceasing (7.9), cont to monitor FOBT: Neg LDH: 247, haptoglobin 451, ruled out hemolyzing GI prophylaxis 40mg pantoprazole daily #FEN Hold fluids for now Routine BMP monitoring Initiate diet as tolerated #DVT Ppx. Coumadin 7.5mg #Dispo Monitor on tele Pt.'s daughter left her number ([phone] OR [phone]) for updates Visit type - Emergency Visit Emergency Visit: No - New Patient This patient is new to me today: No - Critical Care Critical Care patient: No ATTENDING PHYSICIAN STATEMENT I saw and evaluated the patient. I reviewed the resident's note and discussed the case with the resident. I agree with the resident's findings and plan as documented. SUBJECTIVE: OBJECTIVE: ASSESSMENT AND PLAN:
[2018-09-15] MEDS: WARFARIN NA 7.5 MG TABLET (FP) PO SCH (18:20)
[2018-09-15] MEDS: CHLORHEXIDINE GLUCONATE 4% CLEANSER FOR DECOLONIZATION TP SCH (22:28)
[2018-09-16 05:57] LABS: HEMATOCRIT 23.1 % (32.4-45.2); HEMOGLOBIN 7.7 GM/dL (10.7-15.3); MCH 32.2 pg (25.7-33.7); MCHC 33.5 g/dl (32.0-36.0); PLATELET COUNT 220 K/MM3 (134-434); RDW 15.6 % (11.6-15.6); WHITE BLOOD COUNT 8.1 K/mm3 (4.0-10.0)
[2018-09-16 06:21] LABS: INR 1.8 (0.83-1.09); PROTHROMBIN TIME (PATIENT) 21.4 SEC (9.7-13.0)
[2018-09-16 06:24] LABS: ALBUMIN 2.3 g/dl (3.4-5.0); BILIRUBIN,TOTAL 0.3 mg/dL (0.2-1); CREATININE 4.8 mg/dL (0.55-1.3); POTASSIUM 5.1 mmol/L (3.5-5.1)
[2018-09-16 06:27] LABS: BLOOD UREA NITROGEN 124.2 mg/dL (7-18); CALCIUM 6.8 mg/dL (8.5-10.1)
[2018-09-16] MEDS: hydrALAZINE HCL 50 MG TABLET (FP) PO SCH ×2 (06:42→13:39)
[2018-09-16] MEDS: INSULIN SLIDING SCALE (NOVOLOG) 1 VIAL SQ SCH ×2 (06:43→11:31)
[2018-09-16] MEDS: ALBUTEROL SO4 2.5/IPRATROPIUM 0.5 INH SOL 3 ML VIAL.NEB. NEB SCH ×2 (08:09→11:44)
[2018-09-16] MEDS: INSULIN (LEVEMIR) 100 UNITS/ML UNITS SQ SCH (08:10)
[2018-09-16] MEDS: CALCIUM ACETATE 667 MG CAPSULE (FP) PO SCH ×2 (08:10→11:33)
[2018-09-16] MEDS ORDERED: CALCIUM (OYSTER SHELL) 500 MG TABLET (FP) PO ONE (08:25)
[2018-09-16] MEDS: predniSONE 20 MG TABLET (UD) PO SCH (09:24)
[2018-09-16] MEDS: FUROSEMIDE 40 MG TABLET (FP) PO SCH (09:24)
[2018-09-16] MEDS: LABETALOL HCL 200 MG TABLET (FP) PO SCH (09:24)
[2018-09-16] MEDS: amLODIPine BESYLATE 10 MG TABLET (FP) PO SCH (09:24)
[2018-09-16] MEDS: FOLIC ACID 1 MG TABLET (FP) PO SCH (09:24)
[2018-09-16] MEDS: SODIUM BICARBONATE 650 MG TABLET PO SCH (09:25)
[2018-09-16] MEDS: PANTOPRAZOLE 40 MG TABLET (FP) PO SCH (09:25)
[2018-09-16] MEDS: BUDESONIDE/FORMETEROL FUMARATE 160/4.5 mcg INHALER IH SCH (09:27)
--- NOTE | 2018-09-16 10:45 | PN ---
Teaching Attending Note Name of Resident: Herminia Russell ATTENDING PHYSICIAN STATEMENT I saw and evaluated the patient. I reviewed the resident's note and discussed the case with the resident. I agree with the resident's findings and plan as documented. SUBJECTIVE: Patient is feeling better with no acute distress, feel better , on nc will continue. OBJECTIVE: Vital Signs Temperature 97.8 F 09/16/18 08:12 Pulse Rate 74 09/16/18 08:00 Respiratory Rate 18 09/16/18 08:00 Blood Pressure 144/58 L 09/16/18 08:00 O2 Sat by Pulse Oximetry (%) 99 09/16/18 10:42 GENERAL: The patient is awake, alert, and fully oriented, in no acute distress. HEAD: Normal with no signs of trauma. EYES: PERRL, extraocular movements intact, sclera anicteric, conjunctiva clear. ENT: Ears normal, oropharynx clear without exudates, MMM, NECK: Trachea midline, full range of motion, supple. LUNGS: Breath sounds equal, clear to auscultation bilaterally, no wheezes, no crackles, no accessory muscle use. HEART: Regular rate and rhythm, S1, S2 positive, ANDREA 2/6, rub or gallop. ABDOMEN: Soft, nontender, nondistended, normoactive bowel sounds, no guarding, no rebound, no hepatosplenomegaly, no masses. EXTREMITIES: 2+ pulses, warm, well-perfused, no edema. NEUROLOGICAL: Cranial nerves II through XII grossly intact. Normal speech, gait not observed. PSYCH: Normal mood, normal affect. SKIN: Warm, dry, normal turgor, no rashes or lesions noted CBCD WBC 8.1 K/mm3 (4.0-10.0) 09/16/18 05:35 RBC 2.40 M/mm3 (3.60-5.2) L 09/16/18 05:35 Hgb 7.7 GM/dL (10.7-15.3) L 09/16/18 05:35 Hct 23.1 % (32.4-45.2) L 09/16/18 05:35 MCV 96.0 fl (80-96) 09/16/18 05:35 MCHC 33.5 g/dl (32.0-36.0) 09/16/18 05:35 RDW 15.6 % (11.6-15.6) 09/16/18 05:35 Plt Count 220 K/MM3 (134-434) 09/16/18 05:35 MPV 9.0 fl (7.5-11.1) 09/16/18 05:35 CMP Sodium 141 mmol/L (136-145) 09/16/18 05:35 Potassium 5.1 mmol/L (3.5-5.1) 09/16/18 05:35 Chloride 112 mmol/L (98-107) H 09/16/18 05:35 Carbon Dioxide 19 mmol/L (21-32) L 09/16/18 05:35 Anion Gap 10 MMOL/L (8-16) 09/16/18 05:35 BUN 124.2 mg/dL (7-18) H* 09/16/18 05:35 Creatinine 4.8 mg/dL (0.55-1.3) H 09/16/18 05:35 Random Glucose 129 mg/dL (74-106) H 09/16/18 05:35 Calcium 6.8 mg/dL (8.5-10.1) L* 09/16/18 05:35 Total Bilirubin 0.3 mg/dL (0.2-1) 09/16/18 05:35 AST 8 U/L (15-37) L 09/16/18 05:35 ALT 20 U/L (13-61) 09/16/18 05:35 Alkaline Phosphatase 33 U/L (45-117) L 09/16/18 05:35 Total Protein 5.0 g/dl (6.4-8.2) L 09/16/18 05:35 Albumin 2.3 g/dl (3.4-5.0) L 09/16/18 05:35 CARDIAC ENZYMES Creatine Kinase 141 U/L (26-192) 09/07/18 14:23 Troponin I 0.05 ng/ml (0.00-0.05) 09/07/18 14:23 Hepatic Panel Total Bilirubin 0.3 mg/dL (0.2-1) 09/16/18 05:35 AST 8 U/L (15-37) L 09/16/18 05:35 ALT 20 U/L (13-61) 09/16/18 05:35 Alkaline Phosphatase 33 U/L (45-117) L 09/16/18 05:35 Albumin 2.3 g/dl (3.4-5.0) L 09/16/18 05:35 Home Medications Medication Instructions Recorded Albuterol 0.083% Nebulizer Norma 1 amp NEB Q4H PRN #0 amp 09/15/18 [Ventolin 0.083% Nebulizer Soln -] Albuterol 2.5/Ipratropium 0.5 1 amp NEB QID PRN 30 Days amp 09/15/18 [Duoneb -] Amlodipine Besylate [Norvasc -] 10 mg PO DAILY #30 tablet 09/15/18 Budesonide/Formeterol Fumarate 2 puff IH BID inhaler 09/15/18 [SYMBICORT 160/4.5mcg -] Folic Acid - 1 mg PO DAILY tablet 09/15/18 Furosemide [Lasix -] 40 mg PO DAILY #30 tablet 09/15/18 Insulin (Levemir) [Levemir Vial] 10 units SQ DAILY@0800 #3 ml 09/15/18 Insulin (Levemir) [Levemir Vial] 24 units SQ HS #6 ml 09/15/18 Insulin Sliding Scale [Novolog 1 vial SQ TIDAC #1 units 09/15/18 Vial Sliding Scale -] Labetalol HCl [Normodyne -] 200 mg PO BID #60 tablet 09/15/18 Sodium Bicarbonate - 650 mg PO BID tablet 09/15/18 Warfarin Sodium [Coumadin] 7.5 mg PO HS #30 tablet 09/15/18 hydrALAZINE HCL [Apresoline -] 100 mg PO TID #180 tablet 09/15/18 predniSONE [Deltasone -] See Taper PO ASDIR #7 tab 09/15/18 Current Medications Generic Name Dose Route Start Last Admin Trade Name Freq PRN Reason Stop Dose Admin Acetaminophen 650 mg 09/08/18 19:55 Tylenol - PO Q4H PRN FEVER Albuterol Sulfate 1 amp 09/07/18 21:00 Ventolin 0.083% Nebulizer Soln - NEB Q4H PRN SHORT OF BREATH/WHEEZING Albuterol/Ipratropium 1 amp 09/08/18 08:00 09/16/18 08:09 Duoneb - NEB 1 amp RQID [facility]MA Administration Amlodipine Besylate 10 mg 09/10/18 10:00 09/16/18 09:24 Norvasc - PO 10 mg DAILY [facility]MA Administration Budesonide/Formoterol Fumarate 2 puff 09/07/18 22:00 09/16/18 09:27 Symbicort 160/4.5mcg - IH 2 puff BID [facility]MA Administration Calcium Acetate 667 mg 09/14/18 12:00 09/16/18 08:10 Phoslo - PO 667 mg TIDCM [facility]MA Administration Chlorhexidine Gluconate 1 applic 09/07/18 22:00 09/15/18 22:28 Hibiclens For Decolonization - TP 1 applic HS [facility] Administration Folic Acid 1 mg 09/08/18 10:00 09/16/18 09:24 Folic Acid - PO 1 mg DAILY [facility] Administration Furosemide 40 mg 09/15/18 10:00 09/16/18 09:24 Lasix - PO 40 mg DAILY [facility] Administration Hydralazine HCl 100 mg 09/07/18 22:00 09/16/18 06:42 Apresoline - PO 100 mg TID [facility] Administration Insulin Aspart 1 vial 09/08/18 16:30 09/16/18 06:43 Novolog Vial Sliding Scale - SQ Not Given TIDAC [facility] Protocol Insulin Detemir 24 units 09/08/18 22:00 09/15/18 22:33 Levemir Vial SQ 24 units HS [facility] Administration Insulin Detemir 10 units 09/11/18 08:00 09/16/18 08:10 Levemir Vial SQ 10 units DAILY@0800 [facility] Administration Labetalol HCl 200 mg 09/12/18 22:00 09/16/18 09:24 Normodyne - PO 200 mg BID [facility] Administration Pantoprazole Sodium 40 mg 09/09/18 10:00 09/16/18 09:25 Protonix - PO 40 mg DAILY [facility] Administration Prednisone 20 mg 09/13/18 10:00 09/16/18 09:24 Deltasone - PO 20 mg DAILY [facility] Administration Sodium Bicarbonate 650 mg 09/07/18 22:00 09/16/18 09:25 Sodium Bicarbonate - PO 650 mg BID [facility] Administration Warfarin Sodium 7.5 mg 09/14/18 18:00 09/15/18 18:20 Coumadin - PO 7.5 mg DAILY@1800 [facility] Administration ASSESSMENT AND PLAN: Patient is a 77yo female with PMHx of CAD, s/p KS, AFib , HTN, diastolic CHF, pulm HTN, TREVON, DM , LLE DVT, CKD 5, GERD who was recently discharged after being treated for COPD, and now presented with fever and SOB and was found to have b/l infiltrates with acute hypoxic respiratory failure. # Acute hypoxic resp failure: due to b/l PNA completed IV antibiotic, improved will continue oxygen and Bipap hs # Acute COPD exacerbation: cont prednisone taper and breathing treatment. continue lasix # HTN : better controlled. cont Hydralazine, and norvasc, and labetalol 200 BID # H/o A fib: on labetalol instead of the cardizem , increased coumadin to 7.5 mg , INR is 1.58-->1.8 today continue 7.5mg daily recheck in a daily basis. #T2DM: cont levemir 24 units HS, and 10 units in am. Cont. SSI, continue steroids taper # JOSE on CKD 5: Stable crd/w Dr. To. resume her home dose lasix 40 daily Dispo: dc patient to rehab.today on oxygen and on Bipap at night as needed
--- NOTE | 2018-09-16 10:56 | DS ---
Physical Exam: SUBJECTIVE:Patient seen and examined. Pt slept with BiPAP overnight, tolerated well. She does not complain of worsening SOB, CP, or cough. OBJECTIVE: Vital Signs Period Temp Pulse Resp BP Sys/Renee Pulse Ox Last 24 Hr 97.2 F-97.8 F 62-83 12-22 117-148/55-75 98-100 PHYSICAL EXAM GENERAL: The patient is awake, alert, and fully oriented, in no acute distress. Breathing on NC. Appears tired. HEAD: Normal with no signs of trauma. EYES: PERRL, extraocular movements intact, sclera anicteric, conjunctiva clear. No ptosis. ENT: Ears normal, nares patent, oropharynx clear without exudates, moist mucous membranes. NECK: Trachea midline, full range of motion, supple. LUNGS: Mildly coarse breath sounds, but improving. No wheezes, no crackles. Less accessory muscle use when sitting up then previous HEART: Regular rate and rhythm, S1, S2, 2/6 SM a RUSB ABDOMEN: Soft, nontender, nondistended, normoactive bowel sounds, no guarding, no rebound, no hepatosplenomegaly, no masses. EXTREMITIES: 2+ pulses, warm, well-perfused, 1+ edema, improving NEUROLOGICAL: Cranial nerves II through XII grossly intact. Normal speech, gait not observed. PSYCH: Normal mood, normal affect. SKIN: Warm, dry, normal turgor, no rashes or lesions noted LABS Laboratory Results - last 24 hr CBC, BMP 09/16/18 05:35 09/16/18 05:35 Current Medications Acetaminophen (Tylenol -) 650 mg PO Q4H PRN PRN Reason: FEVER Albuterol Sulfate (Ventolin 0.083% Nebulizer Soln -) 1 amp NEB Q4H PRN PRN Reason: SHORT OF BREATH/WHEEZING Albuterol/Ipratropium (Duoneb -) 1 amp NEB RQID [facility] Last Admin: 09/16/18 08:09 Dose: 1 amp Amlodipine Besylate (Norvasc -) 10 mg PO DAILY [facility] Last Admin: 09/16/18 09:24 Dose: 10 mg Budesonide/Formoterol Fumarate (Symbicort 160/4.5mcg -) 2 puff IH BID [facility] Last Admin: 09/16/18 09:27 Dose: 2 puff Calcium Acetate (Phoslo -) 667 mg PO TIDCM [facility] Last Admin: 09/16/18 08:10 Dose: 667 mg Chlorhexidine Gluconate (Hibiclens For Decolonization -) 1 applic TP [facility] Last Admin: 09/15/18 22:28 Dose: 1 applic Folic Acid (Folic Acid -) 1 mg PO DAILY [facility] Last Admin: 09/16/18 09:24 Dose: 1 mg Furosemide (Lasix -) 40 mg PO DAILY [facility] Last Admin: 09/16/18 09:24 Dose: 40 mg Hydralazine HCl (Apresoline -) 100 mg PO TID [facility] Last Admin: 09/16/18 06:42 Dose: 100 mg Insulin Aspart (Novolog Vial Sliding Scale -) 1 vial SQ TIDAC [facility]; Protocol Last Admin: 09/16/18 06:43 Dose: Not Given Insulin Detemir (Levemir Vial) 24 units SQ [facility] Last Admin: 09/15/18 22:33 Dose: 24 units Insulin Detemir (Levemir Vial) 10 units SQ DAILY@0800 [facility] Last Admin: 09/16/18 08:10 Dose: 10 units Labetalol HCl (Normodyne -) 200 mg PO BID [facility] Last Admin: 09/16/18 09:24 Dose: 200 mg Pantoprazole Sodium (Protonix -) 40 mg PO DAILY [facility] Last Admin: 09/16/18 09:25 Dose: 40 mg Prednisone (Deltasone -) 20 mg PO DAILY [facility] Last Admin: 09/16/18 09:24 Dose: 20 mg Sodium Bicarbonate (Sodium Bicarbonate -) 650 mg PO BID [facility] Last Admin: 09/16/18 09:25 Dose: 650 mg Warfarin Sodium (Coumadin -) 7.5 mg PO DAILY@1800 [facility] Last Admin: 09/15/18 18:20 Dose: 7.5 mg HOSPITAL COURSE: Date of Admission:09/07/18 Patient is a 77 year old female with PMHx. of HTN, NIDDM, Afib(s/p ablation on Coumadin), LLE DVT, CHFpEF, AR( s/p catherization), CKD Stage 4, GERD, and over active bladder who was admitted for aspiration PNA. The pt was recently discharged x4 days prior for COPD exacerbation with BIPAP machine but it was never delivered to her home. Upon this admission, pt was in respiratory distress (tachypneic and satting in 80s), febrile, with a leukocytosis. CXR showed BL upper lobe infiltrates and congestive changes. She was admitted to the ICU and monitored on BiPAP. Pt was treated with a 7-day course of Zosyn as well as a steroid taper starting with IV solumedrol down to 40mg prednisone po down slowly tapered to 10mg prednisone po. Her symptoms slowly improved and she was eventually downgraded to med-surg. During admission, she also had an JOSE which was treated with IVF. Pt's Cr has now stabilized around 4.8 (baseline 3.6) . She declines HD. Her blood pressure was also poorly controlled, so her cardizem was changed to labetolol and her norvasc was increased to 10mg. She will be discharged with norvasc 10mg daily, labetolol 100mg BID, and hydralazine 100mg TID (as patient has been normotensive on these meds during admission). Volume status and BMP were closely monitored by primary team as well as nephro and pulm. She will be discharged with her home dosage of 40mg lasix daily. Pt declines HD. She has been tolerating NC during the day and BiPAP at night very well. Pt has clinically improved since admission: afebrile, improvement in her breathing, euvolemic, and no complaints or symptoms at this time. She is clinically stable to be discharged to Rehab with home O2 and BiPAP machine. CXR on admission: congestive changes, BL upper lobe infiltrates CXR on discharge: increased lung markings EKG: NSR, Q waves in V1, QTc: 450 Date of Discharge: 09/16/18 Minutes to complete discharge: 45 Discharge Summary Reason For Visit: PNEUMONIA Current Active Problems Acute on chronic renal insufficiency (Acute) Anemia (Acute) COPD exacerbation (Acute) Afib (Chronic) Asthma (Chronic) CAD (coronary artery disease) (Chronic) CHF (congestive heart failure) (Chronic) CKD (chronic kidney disease) (Chronic) COPD (chronic obstructive pulmonary disease) (Chronic) COPD (chronic obstructive pulmonary disease) (Chronic) Diastolic CHF (Chronic) Hyperlipidemia (Chronic) Hypertension (Chronic) IDDM (insulin dependent diabetes mellitus) (Chronic) Obstructive sleep apnea (Chronic) Peripheral arterial disease (Chronic) Pulmonary hypertension (Chronic) Type 2 diabetes mellitus (Chronic) Condition: Stable - Instructions Diet, Activity, Other Instructions: You were admitted to the hospital for pneumonia. We treated you with antibiotics for 7 days, and your pneumonia resolved. You also received steroid medications (prednisone) for your COPD. To complete treatment please take: - 20mg (2 pills) Prednisone once per day for 1 day. [id number] - Then, 10mg (1 pill) Prednisone once per day for 2 days. [id number] While you were here, you slept with a BiPAP machine each night, which helped your breathing. We will discharge you with a BiPAP machine that you should continue to use each night. During your admission, your blood pressure was high. We adjusted your medications to better control your blood pressure. To treat your high blood pressure please take: - Hydralazine 100mg by mouth three times a day (1 ofdt=240xz @ breakfast, 1 pill =100mg @ lunch, and 1 nljn=871zl @ dinner) - Labetolol 200mg by mouth two times a day (morning and evening) - Norvasc 10mg by mouth once a day - And NO LONGER TAKE your Cardizem medication We also adjusted your Diabetes medication to better control your blood sugar. To treat your diabetes please take: - 10 units Levemir in the morning - 24 units Levemir at night - Novolog before each meal (breakfast, lunch, dinner) based on the following: Sugar Level Dose of Insulin 100-150 0 units 151-200 2 units 201-250 4 units 251-300 6 units 301-350 8 units 351-400 10 units 400+ 12 units and call your doctor You should monitor your PT/INR (your blood labs) in 3 days in order to assess the dosage of your warfarin medication. For now, please continue your Warfarin 7.5 mg by mouth every day. Lastly, to treat your heart failure, please take: - Lasix 40mg by mouth once a day You should follow up with your home and family living professor to discuss further management. You should resume all other home medications as prescribed. You should return to the Emergency Department if you have difficulty breathing, chest pain, fevers, nausea, vomiting or worsening of any symptoms. Referrals: Myesha Khan MD [Primary Care Provider] - Tyrese Garner MD [Staff Physician] - 1 Week Tylor To MD [Staff Physician] - 1 Week Disposition: CUSTODIAL FACILITY - Home Medications Comprehensive Discharge Medication List: Ambulatory Orders Albuterol 0.083% Nebulizer Norma [Ventolin 0.083% Nebulizer Soln -] 1 amp NEB Q4H PRN #0 amp 09/15/18 Albuterol 2.5/Ipratropium 0.5 [Duoneb -] 1 amp NEB QID PRN 30 Days amp Amlodipine Besylate [Norvasc -] 10 mg PO DAILY #30 tablet 09/15/18 Budesonide/Formeterol Fumarate [SYMBICORT 160/4.5mcg -] 2 puff IH BID inhaler 09/15/18 Folic Acid - 1 mg PO DAILY tablet 09/15/18 Furosemide [Lasix -] 40 mg PO DAILY #30 tablet 09/15/18 Insulin (Levemir) [Levemir Vial] 10 units SQ DAILY@0800 #3 ml 09/15/18 Insulin (Levemir) [Levemir Vial] 24 units SQ HS #6 ml 09/15/18 Insulin Sliding Scale [Novolog Vial Sliding Scale -] 1 vial SQ TIDAC #1 units Labetalol HCl [Normodyne -] 200 mg PO BID #60 tablet 09/15/18 Sodium Bicarbonate - 650 mg PO BID tablet 09/15/18 Warfarin Sodium [Coumadin] 7.5 mg PO HS #30 tablet 09/15/18 predniSONE [Deltasone -] See Taper PO ASDIR #7 tab 09/15/18 Hydralazine HCl 100 mg PO TID #90 tablet 09/16/18 This patient is new to me today: No Emergency Visit: No Critical Care patient: No - Discharge Referral Referred to [facility] Med P.C[facility] No ATTENDING PHYSICIAN STATEMENT I saw and evaluated the patient. I reviewed the resident's note and discussed the case with the resident. I agree with the resident's findings and plan as documented. SUBJECTIVE: OBJECTIVE: ASSESSMENT AND PLAN:
--- NOTE | 2018-09-16 11:01 | PN ---
Progress Note (short form) - Note Progress Note: Resting in NAD on NC O2. No acute events overnight. Breathing feels about the same: still with cough and some JOHNSON. Intake & Output 09/13/18 09/14/18 09/15/18 09/16/18 23:59 23:59 23:59 23:59 Intake Total 1440 415 930 660 Output Total 1600 2250 Balance -160 -1835 930 660 Weight 222 lb 8 oz 219 lb 11.2 oz Last Vital Signs Temp Pulse Resp BP Pulse Ox 97.8 F 74 18 144/58 L 99 09/16/18 08:12 09/16/18 08:00 09/16/18 08:00 09/16/18 08:00 09/16/18 10:42 Active Medications Acetaminophen (Tylenol -) 650 mg PO Q4H PRN PRN Reason: FEVER Albuterol Sulfate (Ventolin 0.083% Nebulizer Soln -) 1 amp NEB Q4H PRN PRN Reason: SHORT OF BREATH/WHEEZING Albuterol/Ipratropium (Duoneb -) 1 amp NEB RQID [facility] Last Admin: 09/16/18 08:09 Dose: 1 amp Amlodipine Besylate (Norvasc -) 10 mg PO DAILY [facility] Last Admin: 09/16/18 09:24 Dose: 10 mg Budesonide/Formoterol Fumarate (Symbicort 160/4.5mcg -) 2 puff IH BID [facility] Last Admin: 09/16/18 09:27 Dose: 2 puff Calcium Acetate (Phoslo -) 667 mg PO TIDCM [facility] Last Admin: 09/16/18 08:10 Dose: 667 mg Chlorhexidine Gluconate (Hibiclens For Decolonization -) 1 applic TP HS [facility] Last Admin: 09/15/18 22:28 Dose: 1 applic Folic Acid (Folic Acid -) 1 mg PO DAILY [facility] Last Admin: 09/16/18 09:24 Dose: 1 mg Furosemide (Lasix -) 40 mg PO DAILY [facility] Last Admin: 09/16/18 09:24 Dose: 40 mg Hydralazine HCl (Apresoline -) 100 mg PO TID [facility] Last Admin: 09/16/18 06:42 Dose: 100 mg Insulin Aspart (Novolog Vial Sliding Scale -) 1 vial SQ TIDAC [facility]; Protocol Last Admin: 09/16/18 06:43 Dose: Not Given Insulin Detemir (Levemir Vial) 24 units SQ HS [facility] Last Admin: 09/15/18 22:33 Dose: 24 units Insulin Detemir (Levemir Vial) 10 units SQ DAILY@0800 [facility] Last Admin: 09/16/18 08:10 Dose: 10 units Labetalol HCl (Normodyne -) 200 mg PO BID [facility] Last Admin: 09/16/18 09:24 Dose: 200 mg Pantoprazole Sodium (Protonix -) 40 mg PO DAILY [facility] Last Admin: 09/16/18 09:25 Dose: 40 mg Prednisone (Deltasone -) 20 mg PO DAILY [facility] Last Admin: 09/16/18 09:24 Dose: 20 mg Sodium Bicarbonate (Sodium Bicarbonate -) 650 mg PO BID [facility] Last Admin: 09/16/18 09:25 Dose: 650 mg Warfarin Sodium (Coumadin -) 7.5 mg PO DAILY@1800 [facility] Last Admin: 09/15/18 18:20 Dose: 7.5 mg Gen: Awake and alert, NAD Heart: RRR Lung: scattered bilateral rhonchi, no wheeze Abd: soft, nontender Ext: no edema Laboratory Results - last 24 hr 09/15/18 09/15/18 09/15/18 11:34 15:45 22:32 WBC RBC Hgb Hct MCV MCH MCHC RDW Plt Count MPV PT with INR INR Sodium Potassium Chloride Carbon Dioxide Anion Gap BUN Creatinine Est GFR (CKD-EPI)AfAm Est GFR (CKD-EPI)NonAf POC Glucometer 107 162 242 Random Glucose Calcium Total Bilirubin AST ALT Alkaline Phosphatase Total Protein Albumin 09/16/18 09/16/18 09/16/18 05:35 05:35 05:35 WBC 8.1 RBC 2.40 L Hgb 7.7 L Hct 23.1 L MCV 96.0 MCH 32.2 MCHC 33.5 RDW 15.6 Plt Count 220 MPV 9.0 PT with INR 21.40 H INR 1.80 H Sodium 141 Potassium 5.1 Chloride 112 H Carbon Dioxide 19 L Anion Gap 10 BUN 124.2 H* Creatinine 4.8 H Est GFR (CKD-EPI)AfAm 9.31 Est GFR (CKD-EPI)NonAf 8.04 POC Glucometer Random Glucose 129 H Calcium 6.8 L* Total Bilirubin 0.3 AST 8 L ALT 20 Alkaline Phosphatase 33 L Total Protein 5.0 L Albumin 2.3 L 09/16/18 06:42 WBC RBC Hgb Hct MCV MCH MCHC RDW Plt Count MPV PT with INR INR Sodium Potassium Chloride Carbon Dioxide Anion Gap BUN Creatinine Est GFR (CKD-EPI)AfAm Est GFR (CKD-EPI)NonAf POC Glucometer 98 Random Glucose Calcium Total Bilirubin AST ALT Alkaline Phosphatase Total Protein Albumin ASSESSMENT AND PLAN: Acute Hypoxic Respiratory Failure Pneumonia Acute on Chronic Diastolic Heart Failure Atrial Fibrillation Pulmonary HTN CKD IV CAD HTN DM - Zosyn completed 7 days - Prednisone - inhaled bronchodilators standing and PRN - O2 to keep Spo2 >90% - Lasix per Renal - continue anticoagulation - D/C planning Dr Garner
[2018-09-16 11:36] VITALS: TEMP 97.9
--- NOTE | 2018-09-16 15:15 | PN ---
Progress Note, Physician - Current Medication List Current Medications: Active Medications Acetaminophen (Tylenol -) 650 mg PO Q4H PRN PRN Reason: FEVER Albuterol Sulfate (Ventolin 0.083% Nebulizer Soln -) 1 amp NEB Q4H PRN PRN Reason: SHORT OF BREATH/WHEEZING Albuterol/Ipratropium (Duoneb -) 1 amp NEB RQID [facility] Last Admin: 09/16/18 11:44 Dose: 1 amp Amlodipine Besylate (Norvasc -) 10 mg PO DAILY [facility] Last Admin: 09/16/18 09:24 Dose: 10 mg Budesonide/Formoterol Fumarate (Symbicort 160/4.5mcg -) 2 puff IH BID [facility] Last Admin: 09/16/18 09:27 Dose: 2 puff Calcium Acetate (Phoslo -) 667 mg PO TIDCM [facility] Last Admin: 09/16/18 11:33 Dose: 667 mg Chlorhexidine Gluconate (Hibiclens For Decolonization -) 1 applic TP [facility] Last Admin: 09/15/18 22:28 Dose: 1 applic Folic Acid (Folic Acid -) 1 mg PO DAILY [facility] Last Admin: 09/16/18 09:24 Dose: 1 mg Furosemide (Lasix -) 40 mg PO DAILY [facility] Last Admin: 09/16/18 09:24 Dose: 40 mg Hydralazine HCl (Apresoline -) 100 mg PO TID [facility] Last Admin: 09/16/18 13:39 Dose: 100 mg Insulin Aspart (Novolog Vial Sliding Scale -) [facility] Protocol Last Admin: 09/16/18 11:31 Dose: Not Given Insulin Detemir (Levemir Vial) 24 units SQ [facility] Last Admin: 09/15/18 22:33 Dose: 24 units Insulin Detemir (Levemir Vial) 10 units SQ DAILY@0800 [facility] Last Admin: 09/16/18 08:10 Dose: 10 units Labetalol HCl (Normodyne -) 200 mg PO BID [facility] Last Admin: 09/16/18 09:24 Dose: 200 mg Pantoprazole Sodium (Protonix -) 40 mg PO DAILY [facility] Last Admin: 09/16/18 09:25 Dose: 40 mg Prednisone (Deltasone -) 20 mg PO DAILY [facility] Last Admin: 09/16/18 09:24 Dose: 20 mg Sodium Bicarbonate (Sodium Bicarbonate -) 650 mg PO BID [facility] Last Admin: 09/16/18 09:25 Dose: 650 mg Warfarin Sodium (Coumadin -) 7.5 mg PO DAILY@1800 [facility] Last Admin: 09/15/18 18:20 Dose: 7.5 mg - Objective Vital Signs: Vital Signs Temperature 97.9 F 09/16/18 11:34 Pulse Rate 68 09/16/18 11:34 Respiratory Rate 22 H 09/16/18 11:34 Blood Pressure 143/51 L 09/16/18 11:34 O2 Sat by Pulse Oximetry (%) 99 09/16/18 14:00 Labs: CBC, BMP 09/16/18 05:35 09/16/18 05:35 INR, PTT INR 1.80 (0.83-1.09) H 09/16/18 05:35
[2018-09-16 15:48] VITALS: BP 147/54; PULSE 70
== END 2018-09-16 16:02 | DRG 177 ==
LOC: JER 12:38 → JERBED 13:49 → JICU 18:34 → J2W 09-12 19:51
PROVIDERS: ADMIT Internal Medicine; ATTEND Internal Medicine
PROC: 5A09357 Assistance with Respiratory Ventilation, Less than 24 Consecutive Hours, Continuous Positive Airway Pressure (ICD-10-PCS; principal; 2018-09-07)
DX: J69.0 Pneumonitis due to inhalation of food and vomit (principal); J96.01 Acute respiratory failure with hypoxia; I50.33 Acute on chronic diastolic (congestive) heart failure; I13.2 Hypertensive heart and chronic kidney disease with heart failure and with stage 5 chronic kidney disease, or end stage renal disease; N17.9 Acute kidney failure, unspecified; J44.1 Chronic obstructive pulmonary disease with (acute) exacerbation; N18.5 Chronic kidney disease, stage 5; N18.4 Chronic kidney disease, stage 4 (severe); J18.1 Lobar pneumonia, unspecified organism; I48.0 Paroxysmal atrial fibrillation; E11.22 Type 2 diabetes mellitus with diabetic chronic kidney disease; I27.20 Pulmonary hypertension, unspecified; E83.39 Other disorders of phosphorus metabolism; G47.33 Obstructive sleep apnea (adult) (pediatric); E66.9 Obesity, unspecified; J44.9 Chronic obstructive pulmonary disease, unspecified; D64.9 Anemia, unspecified; I25.10 Atherosclerotic heart disease of native coronary artery without angina pectoris; Z86.718 Personal history of other venous thrombosis and embolism; Z79.4 Long term (current) use of insulin; I25.2 Old myocardial infarction; K21.9 Gastro-esophageal reflux disease without esophagitis; Z87.891 Personal history of nicotine dependence; Z68.31 Body mass index [BMI] 31.0-31.9, adult; Z79.01 Long term (current) use of anticoagulants; Z86.010 Personal history of colon polyps; Z90.710 Acquired absence of both cervix and uterus; E11.51 Type 2 diabetes mellitus with diabetic peripheral angiopathy without gangrene
CPT/HCPCS: 36415; 36600; 71045-TC-FY; 80048; 80053; 81003; 82550; 82728; 82803; 82962; 83010; 83540; 83550; 83605; 83615; 83735; 83880; 84100; 84484; 85025; 85027; 85610; 85730; 86038; 87040; 93005; 93010; 94640; 94660; 97116-GP; 97162-GP; 99284-25; J0131; J0885; J7030

== ENCOUNTER 2018-10-08 14:07 | Inpatient (IN) | payer OTHER ==
--- NOTE | 2018-10-08 15:30 | PDOC ---
History of Present Illness - General Chief Complaint: Altered Mental Status Stated Complaint: Altered Mental Status Time Seen by Provider: 10/08/18 15:06 - History of Present Illness Initial Comments: 77 yo F, PMH HTN, COPD, DM on insulin, Afib(s/p ablation on Coumadin), CHFpEF, AK (s/p catherization), CKD Stage 4, GERD, sent from [facility] for AMS. Notably, was here about 3 weeks ago and spent some time in the ICU, diagnosed with aspiration PNA, started on 7 day course of Zosyn and steroid taper. Per daughter, talked with patient last night and she was her normal self, mentally sharp. Was called today by [facility], told that her mother was speaking slower and seemed not as sharp. Notably, daughter states that the patient has had worsening edema for the last week, which she has never had before. Per daughter, the patient has never had hemodialysis, despite extensive kidney disease. Patient states that she has lower suprapubic pain on both sides and L sided back pain, which feels similar to her chronic back pain. Endorses SOB, orthopnea , and chills. Denies CP, urinary changes, constipation/diarrhea, JANE, dizziness. 10/08/18 15:47 Past History - Past Medical History Allergies/Adverse Reactions: Allergies Allergy/AdvReac Type Severity Reaction Status Date / Time No Known Allergies Allergy Verified 09/07/18 12:50 Home Medications: Ambulatory Orders Albuterol 0.083% Nebulizer Norma [Ventolin 0.083% Nebulizer Soln -] 1 amp NEB Q4H PRN #0 amp 09/15/18 Albuterol 2.5/Ipratropium 0.5 [Duoneb -] 1 amp NEB QID PRN 30 Days amp Amlodipine Besylate [Norvasc -] 10 mg PO DAILY #30 tablet 09/15/18 Budesonide/Formeterol Fumarate [SYMBICORT 160/4.5mcg -] 2 puff IH BID inhaler 09/15/18 Folic Acid - 1 mg PO DAILY tablet 09/15/18 Furosemide [Lasix -] 40 mg PO DAILY #30 tablet 09/15/18 Insulin (Levemir) [Levemir Vial] 10 units SQ DAILY@0800 #3 ml 09/15/18 Insulin (Levemir) [Levemir Vial] 24 units SQ HS #6 ml 09/15/18 Insulin Sliding Scale [Novolog Vial Sliding Scale -] 1 vial SQ TIDAC #1 units Labetalol HCl [Normodyne -] 200 mg PO BID #60 tablet 09/15/18 Sodium Bicarbonate - 650 mg PO BID tablet 09/15/18 Warfarin Sodium [Coumadin] 7.5 mg PO HS #30 tablet 09/15/18 predniSONE [Deltasone -] See Taper PO ASDIR #7 tab 09/15/18 Hydralazine HCl 100 mg PO TID #90 tablet 09/16/18 Anemia: Yes Asthma: Yes Cancer: No Cardiac Disorders: Yes (AF s/p ablation (coumadin), AK) CVA: No COPD: Yes CHF: Yes DVT: No Dementia: No Diabetes: Yes (IDDM) Dialysis: No (ckd) GI Disorders: Yes (GERD) Disorders: Yes (frequency) HTN: Yes Hypercholesterolemia: Yes Liver Disease: No Psychiatric Problems: Yes (DEPRESSION) Seizures: No Thyroid Disease: No - Surgical History Abdominal Surgery: Yes (TUBAL LIG.) Appendectomy: No Cardiac Surgery: Yes (ablation) Cholecystectomy: No Lung Surgery: No Neurologic Surgery: No Orthopedic Surgery: Yes (hammer toes,trigger finger) - Family Disease History Family Disease History: Diabetes: Grandparents, CA: Mother (htn) - Immunization History Immunization Up to Date: Yes - Suicide/Smoking/Psychosocial Hx Smoking Status: Yes Smoking History: Never smoked Have you smoked in the past 12 months: No Number of Cigarettes Smoked Daily: 1 If you are a former smoker, when did you quit?: 1 year ago 'Breaking Loose' booklet given: 12/10/17 Hx Alcohol Use: No Drug/Substance Use Hx: No Substance Use Type: None Hx Substance Use Treatment: No Review of Systems - Review of Systems Able to Perform ROS?: Yes (limited by AMS) Constitutional: Yes: Chills. No: Fever HEENTM: No: Recent change in vision, Hearing Loss, Difficulty Swallowing Respiratory: Yes: Orthopnea, Shortness of Breath. No: Cough Cardiac (ROS): No: Chest Pain ABD/GI: No: Constipated, Diarrhea, Nausea, Vomiting : No: Burning, Dysuria, Discharge, Frequency, Flank Pain Musculoskeletal: Yes: Back Pain (L sided) Neurological: No: Headache, Numbness, Tingling *Physical Exam - Vital Signs Last Vital Signs Temp Pulse Resp BP Pulse Ox 97.7 F 66 19 154/64 100 10/08/18 14:10 10/08/18 14:10 10/08/18 14:10 10/08/18 14:10 10/08/18 14:10 - Physical Exam Comments: Gen: patient shivering in bed, in moderate distress, grossly edematous Neuro: sleepy, oriented X 2 (name, year, does not know where she is or why she is here), strength 5/5 b/l HEENT: atraumatic, normocephalic Neck: trachea midline, supple CV: irregular, normal rate Pulm: shallow inspiratory effort, possible upper airway transmission Abd: ttp in b/l suprapubic, non-distended, normal bowel sounds Extr: extensive 3+ edema to the knees b/l Skin: warm to hot, dry. No sacral decubitus ulcer or perianal rash Back: no ttp in cervical, thoracic, or lumbar 10/08/18 15:59 ED Treatment Course - LABORATORY CBC & Chemistry Diagram: 10/08/18 15:54 10/08/18 15:54 - ADDITIONAL ORDERS Additional order review: Laboratory Results 10/08/18 15:05 POC Glucometer 178 10/08/18 15:05 POC Glucometer 178 Medical Decision Making - Medical Decision Making Concern for worsening kidney failure vs worsening heart failure vs brain bleed vs electrolyte abnormality. Plan for CBC CMP EKG trop CXR BNP UA/UC 10/08/18 15:47 CXR reviewed, cardiomegaly, mild pulmonary congestion 10/08/18 16:25 WBC wnl, Hgb 8.2, similar to previous 10/08/18 16:40 BNP 1052.3 10/08/18 16:48 Cr 3.6, which is about patient's baseline. 10/08/18 17:26 INR 1.49, subtherapeutic 10/08/18 17:[address] Shoemaker hospitalist, she stated that patients coming from [facility] might go to Dr. Horowitz overnight. She asked that we call back after 1900 to sign out to the night team, but to keep the admission under Dr. Shrestha for now. 10/08/18 18:[address] [facility], baseline is alert and oriented, however this morning she was shaking and lethargic. Sent over for change in mental status. 10/08/18 18:25 Patient signout out to Dr. Del Castillo. 10/08/18 19:01 *DC/Admit/Observation/Transfer Diagnosis at time of Disposition: CHF (congestive heart failure), Lethargy - Discharge Dispostion Condition at time of disposition: Guarded Decision to Admit order: Yes - Referrals Referrals: Kadi Young MD [Primary Care Provider] - - Patient Instructions - Post Discharge Activity
[2018-10-08 16:14] LABS: BASO % 2.3 % (0-2.0); EOS % 1.1 % (0-4.5); HEMATOCRIT 25.5 % (32.4-45.2); HEMOGLOBIN 8.2 GM/dL (10.7-15.3); MCH 32.1 pg (25.7-33.7); MCHC 32.2 g/dl (32.0-36.0); MEAN CELL VOLUME 99.9 fl (80-96); MEAN PLT VOLUME 8.9 fl (7.5-11.1); MONO % 10.5 % (3.8-10.2); NEUT % 45.1 % (42.8-82.8); PLATELET COUNT 246 K/MM3 (134-434); RBC 2.55 M/mm3 (3.60-5.2); RDW 16.6 % (11.6-15.6); WHITE BLOOD COUNT 4.7 K/mm3 (4.0-10.0)
[2018-10-08] MEDS ORDERED: ACETAMINOPHEN 1000 MG/100 ML VIAL (NON FORMULARY) IVPB ONE (16:27)
[2018-10-08 17:04] LABS: INR 1.49 (0.83-1.09); PROTHROMBIN TIME (PATIENT) 17.6 SEC (9.7-13.0)
[2018-10-08 17:06] LABS: ALBUMIN 2.9 g/dl (3.4-5.0); ALK PHOS 50 U/L (45-117); ANION GAP 8 MMOL/L (8-16); BILIRUBIN,TOTAL 0.3 mg/dL (0.2-1); BLOOD UREA NITROGEN 65.2 mg/dL (7-18); CALCIUM 8.6 mg/dL (8.5-10.1); CHLORIDE 105 mmol/L (98-107); CO2 26 mmol/L (21-32); CREATININE 3.6 mg/dL (0.55-1.3); GLUCOSE,RANDOM 177 mg/dL (74-106); SGOT/AST 28 U/L (15-37); SGPT/ALT 23 U/L (13-61); SODIUM 140 mmol/L (136-145)
[2018-10-08 17:12] LABS: HYALINE CASTS 12 /lpf (0-8); URINE APPEARANCE CLEAR; URINE BACTERIA 9.3 /hpf (NEGATIVE); URINE BILIRUBIN NEGATIVE (NEGATIVE); URINE COLOR YELLOW; URINE GLUCOSE (UA) NEGATIVE (NEGATIVE); URINE KETONE NEGATIVE (NEGATIVE); URINE LEUK ESTERASE TRACE (NEGATIVE); URINE NITRITE NEGATIVE (NEGATIVE); URINE PROTEIN TRACE (NEGATIVE); URINE UROBILINOGEN 0.2 mg/dL (0.2-1.0); URINE WBC 3 /hpf (0-5)
[2018-10-08 17:15] LABS: POTASSIUM 4.9 mmol/L (3.5-5.1)
[2018-10-08] MEDS ORDERED: FUROSEMIDE 40 MG/4 ML INJECTABLE VIAL IVPUSH ONE (17:48)
[2018-10-08 17:54] LABS: URINE RBC 10.5 /hpf (0-4)
--- NOTE | 2018-10-08 17:56 | PDOC ---
Documentation entered by Catarina Lyn SCRIBE, acting as scribe for Nancy Bowen MD. Nancy Bowen MD: This documentation has been prepared by the Eboni rapp Brenda, SCRIBE, under my direction and personally reviewed by me in its entirety. I confirm that the documentation accurately reflects all work, treatment, procedures, and medical decision making performed by me. Attending Attestation - Resident Resident Name: Tank Brown - ED Attending Attestation I have performed the following: I have examined & evaluated the patient, The case was reviewed & discussed with the resident, I agree w/resident's findings & plan, Exceptions are as noted - HPI HPI: 10/08/18 16:02 The patient is a 77 year old female, with a significant PMH of NIDDM, COPD, Afib (s/p ablation, warfarin), CKD stage 4, HTN, CHF and LLE DVT, who presents to the emergency department from [facility] for evaluation of altered mental status. As per daughter, who spoke with the patient yesterday, she was at her baseline, speaking normally. However, daughter was called by ME today for complaints of slower speech, AMS and bilateral leg edema. As per charts, patient was at [facility] 3 weeks ago, diagnosed with aspiration pneumonitis. Denies fever, chills, nausea, vomiting, diarrhea and constipation. Denies any urinary symptoms. Allergies: NKA Past surgical history: Tubal Ligation. Cardio: Ablation. Ortho: hammer toes, trigger finger Social history: Former smoker, quit 1 year ago. PMD: Ady Cards: Nacho Pulm: Ike - Physicial Exam PE: 10/08/18 17:52 awake alert lungs clear bilat heart rrr no mrg abd soft obese. mild llq ttp. no rebound no guarding. ext wwp. mild nonpitting edema. nuero alert oriented x 3. - Medical Decision Making 10/08/18 17:53 77 yo NIDDM, COPD, Afib (s/p ablation, warfarin), CKD stage 4, HTN, CHF and LLE DVT here with AMS from [facility]. pt afebrile, no n/v daughter at the bedside. states yesterday she was at baseline, but today received a call that she was slower than usual, taking longer to answer questions. no slurring. no focal weakness, just seems lethargic and sleepy. no f /c no cough. no other comlaints. on exam in ED pt alert oriented x 3. mild abd tenderness. labs unremarkable. baseline anemia 8.3, creatinine 3.6 baseline. will admit AMS. pt with chest congestion on xray. will given lasix. consult nephrology. will admit to tele. Heart Score/ECG Review #1 General ECG Interpretation: Sinus Rhythm, Normal Rate (68), Normal Intervals, No acute ischemic changes
[2018-10-08] MEDS ORDERED: ACETAMINOPHEN INJECTION 100 ML IVPB ONE (18:59)
[2018-10-08] MEDS ORDERED: FUROSEMIDE 40 MG/4 ML INJECTABLE VIAL ONE (18:59)
--- NOTE | 2018-10-08 19:07 | PDOC ---
*Physical Exam - Vital Signs Last Vital Signs Temp Pulse Resp BP Pulse Ox 97.7 F 66 19 154/64 100 10/08/18 14:10 10/08/18 14:10 10/08/18 14:10 10/08/18 14:10 10/08/18 14:10 ED Treatment Course - LABORATORY CBC & Chemistry Diagram: 10/08/18 15:54 10/08/18 15:54 - ADDITIONAL ORDERS Additional order review: Laboratory Results 10/08/18 10/08/18 10/08/18 16:53 15:54 15:54 PT with INR INR PTT (Actin FS) Sodium 140 Potassium 4.9 Chloride 105 Carbon Dioxide 26 Anion Gap 8 BUN 65.2 H Creatinine 3.6 H Est GFR (CKD-EPI)AfAm 13.19 Est GFR (CKD-EPI)NonAf 11.38 POC Glucometer Random Glucose 177 H Calcium 8.6 Magnesium Total Bilirubin 0.3 AST 28 ALT 23 Alkaline Phosphatase 50 Troponin I < 0.02 B-Natriuretic Peptide Total Protein 6.0 L Albumin 2.9 L Urine Color Yellow Urine Appearance Clear Urine pH 7.0 D Ur Specific [place] 1.009 L Urine Protein Trace Urine Glucose (UA) Negative Urine Ketones Negative Urine Blood Negative Urine Nitrite Negative Urine Bilirubin Negative Urine Urobilinogen 0.2 Ur Leukocyte Esterase Trace Urine WBC (Auto) 3 Urine RBC (Auto) 10.5 Urine Casts (Auto) 12 U Pathogenic Cast Auto None seen U Epithel Cells (Auto) 11.0 Urine Bacteria (Auto) 9.3 Blood Type A POSITIVE Antibody Screen Negative 10/08/18 10/08/18 10/08/18 15:54 15:54 15:54 PT with INR 17.60 H INR 1.49 H PTT (Actin FS) Sodium Potassium Chloride Carbon Dioxide Anion Gap BUN Creatinine Est GFR (CKD-EPI)AfAm Est GFR (CKD-EPI)NonAf POC Glucometer Random Glucose Calcium Magnesium 1.9 Total Bilirubin AST ALT Alkaline Phosphatase Troponin I B-Natriuretic Peptide 1052.3 H Total Protein Albumin Urine Color Urine Appearance Urine pH Ur Specific [place] Urine Protein Urine Glucose (UA) Urine Ketones Urine Blood Urine Nitrite Urine Bilirubin Urine Urobilinogen Ur Leukocyte Esterase Urine WBC (Auto) Urine RBC (Auto) Urine Casts (Auto) U Pathogenic Cast Auto U Epithel Cells (Auto) Urine Bacteria (Auto) Blood Type Antibody Screen 10/08/18 10/08/18 15:54 15:05 PT with INR INR PTT (Actin FS) 32.0 Sodium Potassium Chloride Carbon Dioxide Anion Gap BUN Creatinine Est GFR (CKD-EPI)AfAm Est GFR (CKD-EPI)NonAf POC Glucometer 178 Random Glucose Calcium Magnesium Total Bilirubin AST ALT Alkaline Phosphatase Troponin I B-Natriuretic Peptide Total Protein Albumin Urine Color Urine Appearance Urine pH Ur Specific [place] Urine Protein Urine Glucose (UA) Urine Ketones Urine Blood Urine Nitrite Urine Bilirubin Urine Urobilinogen Ur Leukocyte Esterase Urine WBC (Auto) Urine RBC (Auto) Urine Casts (Auto) U Pathogenic Cast Auto U Epithel Cells (Auto) Urine Bacteria (Auto) Blood Type Antibody Screen 10/08/18 10/08/18 15:54 15:05 RBC 2.55 L MCV 99.9 H MCHC 32.2 RDW 16.6 H MPV 8.9 Neutrophils % 45.1 D Lymphocytes % 41.0 H D Monocytes % 10.5 H D Eosinophils % 1.1 D Basophils % 2.3 H D POC Glucometer 178 - Medications Given in the ED: ED Medications Discontinued Medications Generic Name Dose Route Start Last Admin Trade Name Freq PRN Reason Stop Dose Admin Acetaminophen 1,000 mg 10/08/18 16:27 10/08/18 18:57 Ofirmev Injection - IVPB 10/08/18 16:28 1,000 mg ONCE ONE Administration Furosemide 40 mg 10/08/18 17:48 10/08/18 18:57 Lasix Injection - IVPUSH 10/08/18 17:49 40 mg ONCE ONE Administration Medical Decision Making - Medical Decision Making 10/08/18 19:06 pending admission CHF exacerbation pending CT head CT AB normal BNP 1000 Cr/Hgb baseline rectal temp 97.2 Madeline Lorenzo is a 77 yo F, PMH HTN, COPD, DM on insulin, Afib(s/p ablation on Coumadin), CHFpEF, [place] (s/p catherization), CKD Stage 4, GERD, sent from [facility] for AMS. Received signout from Dr. Brown. LE edema, elevated BNP, SOB, orthopnea, enlarged heart on CXR suggest CHF exacerbation. INR 1.4 subtheraputic. Cr, Hgb baseline. CT AB/pelvis, UA, EKG normal, trop negative. Pending CT head Admitted to tele under Dr. Shrestha for CHF exacerbation *DC/Admit/Observation/Transfer Diagnosis at time of Disposition: CHF (congestive heart failure), Lethargy - Discharge Dispostion Condition at time of disposition: Stable Decision to Admit order: Yes - Referrals - Patient Instructions - Post Discharge Activity
--- NOTE | 2018-10-08 19:56 | PN ---
Teaching Attending Note Name of Resident: Saulo Crnadall ATTENDING PHYSICIAN STATEMENT I saw and evaluated the patient. I reviewed the resident's note and discussed the case with the resident. I agree with the resident's findings and plan as documented. Seen and examined; please refer to resident note for further historical information. Briefly, this is a 77 y/o female who was discharged last month from our service presenting back for lethargy; she is a poor historian and provides limited historical information. She ahas a hx of Afib s/p ablation on coumadin, CAD s/p PCI, HFpEF, DM, CKD-IV, GERD, COPD, Pulm HTN, HTN, HLD, overactive bladder, recent aspiration PNA, multiple admits. She is afevrbrile with normal vital signs satting 98% on 3L. Normal white count with lymphocytosis , chronic anemia with worsening macrocytosis, INR 1.49, Cr 3.6 BUN 65, BNP 1k lower than prior values ASSESSMENT AND PLAN: Patient presents with lethargy; in AAOx3; HFpEF known,anemia known, subtherapeutic INR with no focal neuro deficits. Placing on the floor and doing neuro checks. CV consultation. #HTN On norvasc 10 QD, labetalol 100 BID, and hydralazine 100mg TID. #CKD-IV Declined HD on prior admits; consulting nephro. Watching BMP and UOP given Cr.
[2018-10-08] MEDS ORDERED: PIPERACILLIN/TAZOB 2.25 GM 2.25 GM in DEXTROSE 5%-WATER - 50 ML IVPB SCH (21:15)
[2018-10-08] MEDS ORDERED: ALBUTEROL SO4 0.083% IH SOL 2.5 MG/3 ML VIAL.NEB. NEB PRN (21:22)
--- NOTE | 2018-10-08 21:29 | HP ---
CHIEF COMPLAINT: Pt is a 77 y/o F w PMH DM, HTN, COPD, CKD4, Afib, and CHF BIBEMS from [facility] for increasing lethargy. Pt somnolent so hx taken from granddaughter, Alejandra. Her complaints are that she feels cold and has pressure in both of her legs. Over the last week she has had increasing sx. She says her diet has been poor and eats what tastes good. She says her legs have swollen in the last week but have been swelling over last few months. She has not needed more pillows or felt the need to sit upright. She denies cough, SOB, CP. She has not been checking her BP. She says her vision is blurry. Denies JANE, numbness , tingling. The pt denies NFVD. She has not has any sick contacts. She has not traveled. PCP: Dr. Garsia Pulmonary: Dr. Ramires Workforce Planner: Dr. Griffith HISTORY OF PRESENT ILLNESS: ER course was notable for: (1) CT head NEGATIVE: no acute intracranial pathology (2) Urinalysis: trace leukocyte esterase, trace protein (3) CT abd NEGATIVE: No evidence of acute abd or pelvic pathology Recent Travel: Denies PAST MEDICAL HISTORY: PMH DDM, HTN, COPD, CKD4, Afib, and CHF PAST SURGICAL HISTORY: Colonoscopy (a few polyps removed a couple years ago), Hysterectomy(fibroids), Tubal ligation, Upper endoscopy Social History: Smoking: Quit 1 year ago, smoked from [age] (1PPD) Alcohol: Occasional glass of wine Drugs: Denies Family History: Father-DM, Mother-kidney disease, Sister-Lung CA Allergies: Denies No Known Allergies Allergy (Verified 09/07/18 12:50) HOME MEDICATIONS: Home Medications Medication Instructions Recorded Albuterol 0.083% Nebulizer Norma 1 amp NEB Q4H PRN #0 amp 09/15/18 [Ventolin 0.083% Nebulizer Soln -] Albuterol 2.5/Ipratropium 0.5 1 amp NEB QID PRN 30 Days amp 09/15/18 [Duoneb -] Budesonide/Formeterol Fumarate 2 puff IH BID inhaler 09/15/18 [SYMBICORT 160/4.5mcg -] Folic Acid - 1 mg PO DAILY tablet 09/15/18 Furosemide [Lasix -] 40 mg PO DAILY #30 tablet 09/15/18 Insulin (Levemir) [Levemir Vial] 10 units SQ DAILY@0800 #3 ml 09/15/18 Insulin (Levemir) [Levemir Vial] 24 units SQ HS #6 ml 09/15/18 Labetalol HCl [Normodyne -] 200 mg PO BID #60 tablet 09/15/18 Sodium Bicarbonate - 650 mg PO BID tablet 09/15/18 Warfarin Sodium [Coumadin] 7.5 mg PO HS #30 tablet 09/15/18 Hydralazine HCl 100 mg PO TID #90 tablet 09/16/18 Amlodipine Besylate [Norvasc -] 10 mg PO DAILY 10/08/18 Calcium Acetate 667 mg PO TID 10/08/18 Cholecalciferol (Vitamin D3) 5,000 unit PO DAILY 10/08/18 [Vitamin D3] Insulin Sliding Scale [Novolog 1 unit SQ ASDIR PRN 10/08/18 Vial Sliding Scale -] Pantoprazole Sodium 40 mg PO DAILY 10/08/18 REVIEW OF SYSTEMS CONSTITUTIONAL: Absent: fever, chills, diaphoresis, generalized weakness, malaise, loss of appetite, weight change HEENT: Absent: rhinorrhea, nasal congestion, throat pain, throat swelling, difficulty swallowing, mouth swelling, ear pain, eye pain, visual changes CARDIOVASCULAR: Absent: chest pain, syncope, palpitations, irregular heart rate, lightheadedness , peripheral edema RESPIRATORY: Absent: cough, shortness of breath, dyspnea with exertion, orthopnea, wheezing, stridor, hemoptysis GASTROINTESTINAL: Absent: abdominal pain, abdominal distension, nausea, vomiting, diarrhea, constipation, melena, hematochezia GENITOURINARY: Absent: dysuria, frequency, urgency, hesitancy, hematuria, flank pain, genital pain MUSCULOSKELETAL: Absent: myalgia, arthralgia, joint swelling, back pain, neck pain SKIN: Absent: rash, itching, pallor HEMATOLOGIC/IMMUNOLOGIC: Absent: easy bleeding, easy bruising, lymphadenopathy, frequent infections ENDOCRINE: Absent: unexplained weight gain, unexplained weight loss, heat intolerance, cold intolerance NEUROLOGIC: Absent: headache, focal weakness or paresthesias, dizziness, unsteady gait, seizure, mental status changes, bladder or bowel incontinence PSYCHIATRIC: Absent: anxiety, depression, suicidal or homicidal ideation, hallucinations. PHYSICAL EXAMINATION Vital Signs - 24 hr 10/08/18 10/08/18 10/08/18 14:10 16:20 17:20 Temperature 97.7 F 98.1 F Pulse Rate 66 Pulse Rate [ 71 Apical] Respiratory 19 20 Rate Blood Pressure 154/64 Blood Pressure 174/61 H [Left Arm] O2 Sat by Pulse 100 98 Oximetry (%) 10/08/18 10/08/18 10/08/18 19:06 19:43 19:45 Temperature 97.2 F L Pulse Rate Pulse Rate [ 77 Apical] Respiratory 20 Rate Blood Pressure Blood Pressure 155/66 [Left Arm] O2 Sat by Pulse 98 95 96 Oximetry (%) GENERAL: Awake, somnolent and fully oriented, in no acute distress. HEAD: Normal with no signs of trauma. EYES: Pupils equal, round and reactive to light, extraocular movements intact, sclera anicteric, conjunctiva clear. No lid lag. EARS, NOSE, THROAT: Ears normal, nares patent, oropharynx clear without exudates. Moist mucous membranes. NECK: Normal range of motion, supple without lymphadenopathy, JVD, or masses. LUNGS: Spontaneous breathing. Breath sounds equal, clear to auscultation bilaterally. No wheezes, and no crackles. No accessory muscle use. HEART: Regular rate and rhythm, normal S1, S2 , and s3 present, rub or gallop. ABDOMEN: Soft, nontender, not distended, normoactive bowel sounds, no guarding, no rebound, no masses. No hepatomegaly or splenomegaly. MUSCULOSKELETAL: Normal range of motion at all joints. No bony deformities or tenderness. No CVA tenderness. UPPER EXTREMITIES: 2+ pulses, warm, well-perfused. No cyanosis. No clubbing. No peripheral edema. LOWER EXTREMITIES: 2+ pulses, warm, well-perfused. No calf tenderness. No peripheral edema. NEUROLOGICAL: No asterixis. Pt somnolent but grossly CN III-, XI intact. Slowed speech. Gait not observed. PSYCHIATRIC: Somnolent SKIN: Cool to touch, dry, normal turgor, no rashes or lesions noted. Laboratory Results - last 24 hr 10/08/18 10/08/18 10/08/18 15:05 15:54 15:54 WBC 4.7 RBC 2.55 L Hgb 8.2 L Hct 25.5 L MCV 99.9 H MCH 32.1 MCHC 32.2 RDW 16.6 H Plt Count 246 MPV 8.9 Absolute Neuts (auto) 2.1 Neutrophils % 45.1 D Lymphocytes % 41.0 H D Monocytes % 10.5 H D Eosinophils % 1.1 D Basophils % 2.3 H D Nucleated RBC % 0 PT with INR INR PTT (Actin FS) 32.0 Sodium Potassium Chloride Carbon Dioxide Anion Gap BUN Creatinine Est GFR (CKD-EPI)AfAm Est GFR (CKD-EPI)NonAf POC Glucometer 178 Random Glucose Calcium Magnesium Total Bilirubin AST ALT Alkaline Phosphatase Troponin I B-Natriuretic Peptide Total Protein Albumin Vitamin B12 Serum Folate TSH Urine Color Urine Appearance Urine pH Ur Specific [place] Urine Protein Urine Glucose (UA) Urine Ketones Urine Blood Urine Nitrite Urine Bilirubin Urine Urobilinogen Ur Leukocyte Esterase Urine WBC (Auto) Urine RBC (Auto) Urine Casts (Auto) U Pathogenic Cast Auto U Epithel Cells (Auto) Urine Bacteria (Auto) Blood Type Antibody Screen 10/08/18 10/08/18 10/08/18 15:54 15:54 15:54 WBC RBC Hgb Hct MCV MCH MCHC RDW Plt Count MPV Absolute Neuts (auto) Neutrophils % Lymphocytes % Monocytes % Eosinophils % Basophils % Nucleated RBC % PT with INR 17.60 H INR 1.49 H PTT (Actin FS) Sodium Potassium Chloride Carbon Dioxide Anion Gap BUN Creatinine Est GFR (CKD-EPI)AfAm Est GFR (CKD-EPI)NonAf POC Glucometer Random Glucose Calcium Magnesium 1.9 Total Bilirubin AST ALT Alkaline Phosphatase Troponin I B-Natriuretic Peptide 1052.3 H Total Protein Albumin Vitamin B12 Serum Folate TSH Urine Color Urine Appearance Urine pH Ur Specific [place] Urine Protein Urine Glucose (UA) Urine Ketones Urine Blood Urine Nitrite Urine Bilirubin Urine Urobilinogen Ur Leukocyte Esterase Urine WBC (Auto) Urine RBC (Auto) Urine Casts (Auto) U Pathogenic Cast Auto U Epithel Cells (Auto) Urine Bacteria (Auto) Blood Type Antibody Screen 10/08/18 10/08/18 10/08/18 15:54 15:54 16:53 WBC RBC Hgb Hct MCV MCH MCHC RDW Plt Count MPV Absolute Neuts (auto) Neutrophils % Lymphocytes % Monocytes % Eosinophils % Basophils % Nucleated RBC % PT with INR INR PTT (Actin FS) Sodium 140 Potassium 4.9 Chloride 105 Carbon Dioxide 26 Anion Gap 8 BUN 65.2 H Creatinine 3.6 H Est GFR (CKD-EPI)AfAm 13.19 Est GFR (CKD-EPI)NonAf 11.38 POC Glucometer Random Glucose 177 H Calcium 8.6 Magnesium Total Bilirubin 0.3 AST 28 ALT 23 Alkaline Phosphatase 50 Troponin I < 0.02 B-Natriuretic Peptide Total Protein 6.0 L Albumin 2.9 L Vitamin B12 847 Serum Folate > 20 H TSH 1.81 Urine Color Yellow Urine Appearance Clear Urine pH 7.0 D Ur Specific [place] 1.009 L Urine Protein Trace Urine Glucose (UA) Negative Urine Ketones Negative Urine Blood Negative Urine Nitrite Negative Urine Bilirubin Negative Urine Urobilinogen 0.2 Ur Leukocyte Esterase Trace Urine WBC (Auto) 3 Urine RBC (Auto) 10.5 Urine Casts (Auto) 12 U Pathogenic Cast Auto None seen U Epithel Cells (Auto) 11.0 Urine Bacteria (Auto) 9.3 Blood Type A POSITIVE Antibody Screen Negative ASSESSMENT/PLAN: 77 y/o F PMH DDM, HTN, COPD, CKD4, Afib, and CHF with preserved ejection fraction, presenting to ED with increased somnolence consistent w acute metabolic encephalopathy 2/2 poss. hypercapnea, # Poss. hypercapnic respiratory failure - H/o COPD - Somnolent - Ammonia level - Neuro check - Vital signs q4h - No focal nuero symptoms # Heart Failure w Preserved EF - IV lasix - CV consultation #afib - On warfarin - Monitor INR - Monitor for clinic manifestations such as bleeding or easy bruising # Poss. UTI - Await urine cx - Urine POS for trace leukocyte esterase and trace protein # Chronic anemia - Type and cross - No need for transfusion at this time #CKD4 - Will offer HD - In past HD refused - F/u BMP and UOP given Cr. #HTN - On norvasc 10 QD, labetalol 100 BID, and hydralazine 100mg TID. #F/E/N - No standing fluids - Monitor electrolytes - Diabetic diet # DVT prophylaxis - h/o LLE DVT - Lovenox # Dispo - Not known at the present time but daughter, Mike Lorenzo is noted to be HCP by pt's grand-daughter Alejandra Lorenzo. ([phone] OR [phone]) - Call during day hours to determine DNR/DNI status Dr. Saulo Crandall MD Visit type - Emergency Visit Emergency Visit: Yes ED Registration Date: 10/08/18 Care time: The patient presented to the Emergency Department on the above date and was hospitalized for further evaluation of their emergent condition. - New Patient This patient is new to me today: Yes Date on this admission: 10/09/18 - Critical Care Critical Care patient: No ATTENDING PHYSICIAN STATEMENT I saw and evaluated the patient. I reviewed the resident's note and discussed the case with the resident. I agree with the resident's findings and plan as documented. SUBJECTIVE: OBJECTIVE: ASSESSMENT AND PLAN:
[2018-10-08] MEDS: LABETALOL HCL 200 MG TABLET (FP) PO SCH (22:05)
[2018-10-08] MEDS: hydrALAZINE HCL 50 MG TABLET (FP) PO SCH (22:05)
[2018-10-08] MEDS: BUDESONIDE/FORMETEROL FUMARATE 160/4.5 mcg INHALER IH SCH (22:06)
[2018-10-08] MEDS: SODIUM BICARBONATE 650 MG TABLET PO SCH (22:06)
[2018-10-08] MEDS: INSULIN (LEVEMIR) 100 UNITS/ML UNITS SQ SCH (22:07)
[2018-10-08 23:07] LABS: ARTERIAL BLD GAS O2 SATURATION 97.9 % (95-98); ARTERIAL BLOOD GAS BASE EXCESS 2.1 meq/l (-2-2); ARTERIAL BLOOD GAS PCO2 42.2 mmHg (35-45); ARTERIAL BLOOD GAS PO2 135 mmHg (80-105); ARTERIAL BLOOD GAS pH 7.41 (7.35-7.45)
[2018-10-08 23:20] LABS: ALLENS TEST POSITIVE
[2018-10-09] MEDS ORDERED: PIPERACILLIN/TAZOBACTAM 2.25 GM VIAL IVPB ONE ×2 (01:39→08:39)
[2018-10-09] MEDS ORDERED: DEXTROSE 5%-WATER - 50 ML IVPB ONE ×2 (01:40→08:39)
[2018-10-09] MEDS ORDERED: PIPERACILLIN/TAZOB 2.25 GM 2.25 GM in DEXTROSE 5%-WATER - 50 ML IVPB SCH (02:00)
[2018-10-09 02:36] LABS: ALBUMIN 2.6 g/dl (3.4-5.0); BILIRUBIN,TOTAL 0.3 mg/dL (0.2-1); BLOOD UREA NITROGEN 64.6 mg/dL (7-18); CALCIUM 8.6 mg/dL (8.5-10.1); CREATININE 3.5 mg/dL (0.55-1.3); POTASSIUM 4.1 mmol/L (3.5-5.1); TOT PROT 5.2 g/dl (6.4-8.2)
[2018-10-09] MEDS: hydrALAZINE HCL 50 MG TABLET (FP) PO SCH ×3 (05:54→21:49)
[2018-10-09] MEDS: INSULIN SLIDING SCALE (NOVOLOG) 1 VIAL SQ SCH ×4 (06:03→21:48)
[2018-10-09 07:09] LABS: INR 1.5 (0.83-1.09); PROTHROMBIN TIME (PATIENT) 17.8 SEC (9.7-13.0)
[2018-10-09] MEDS: INSULIN (LEVEMIR) 100 UNITS/ML UNITS SQ SCH ×2 (08:12→22:47)
[2018-10-09] MEDS: CALCIUM ACETATE 667 MG CAPSULE (FP) PO SCH ×3 (08:13→17:56)
[2018-10-09] MEDS: amLODIPine BESYLATE 10 MG TABLET (FP) PO SCH (09:04)
[2018-10-09] MEDS: SODIUM BICARBONATE 650 MG TABLET PO SCH ×2 (09:04→21:49)
[2018-10-09] MEDS: PANTOPRAZOLE 40 MG TABLET (FP) PO SCH (09:04)
[2018-10-09] MEDS: LABETALOL HCL 200 MG TABLET (FP) PO SCH ×2 (09:05→21:49)
[2018-10-09] MEDS: CHOLECALCIFEROL (VIT D3) 1,000 UNIT (25 MCG) TABLET PO SCH (09:07)
[2018-10-09 09:28] LABS: BASO % 1.5 % (0-2.0); EOS % 1.2 % (0-4.5); HEMATOCRIT 23.9 % (32.4-45.2); HEMOGLOBIN 7.8 GM/dL (10.7-15.3); LYMPH % 45.4 % (8-40); MCH 32.6 pg (25.7-33.7); MCHC 32.4 g/dl (32.0-36.0); MEAN CELL VOLUME 100.5 fl (80-96); MONO % 10.2 % (3.8-10.2); NEUT % 41.7 % (42.8-82.8); PLATELET COUNT 225 K/MM3 (134-434); RBC 2.38 M/mm3 (3.60-5.2); RDW 16.6 % (11.6-15.6)
[2018-10-09 09:37] LABS: ALBUMIN 2.7 g/dl (3.4-5.0); BILIRUBIN,TOTAL 0.3 mg/dL (0.2-1); BLOOD UREA NITROGEN 61.2 mg/dL (7-18); CALCIUM 8.3 mg/dL (8.5-10.1); CREATININE 3.6 mg/dL (0.55-1.3); MAGNESIUM 1.9 mg/dL (1.8-2.4); PHOSPHOROUS 3.8 mg/dL (2.5-4.9); POTASSIUM 4.1 mmol/L (3.5-5.1); TOT PROT 5.3 g/dl (6.4-8.2)
[2018-10-09] MEDS ORDERED: FUROSEMIDE 40 MG/4 ML INJECTABLE VIAL IVPUSH ONE ×2 (10:00→13:00)
[2018-10-09] MEDS: BUDESONIDE/FORMETEROL FUMARATE 160/4.5 mcg INHALER IH SCH ×2 (10:41→21:49)
--- NOTE | 2018-10-09 11:37 | PN ---
Teaching Attending Note Name of Resident: Sridhar Monk ATTENDING PHYSICIAN STATEMENT I saw and evaluated the patient. I reviewed the resident's note and discussed the case with the resident. I agree with the resident's findings and plan as documented with following additions SUBJECTIVE: Pt is a 77 yo F wiht pMhx of obesity, HTN, DM, COPD on home nightly CPAP, CKD stage IV-5 (b/l SCr: 3.4-3.6) - has previously declared wish not undergo dialysis, reaffirmed at this visit, Afib & HFpEF with L side diastolic dysfunction presents from [facility] for reported mentation changes & lethargy. Pt evaluated in ED with stable vital signs with some hypertensive range BPs, no sign of acute ischemic CVA per CTH, no tropoinin elevation, downtrending BNP relative to prior August admission, no e/o UTI but CXR suggestive of b/l pleural effusions and has been started on 40mg IV lasix. Pt presently reports feeling about the same as before being brought to hospital. Admits to having some day time somnolence she feels it is becuase of use of nighlty CPAP and nocturia 2-3 times/night that have limited her ability to get full nights rest. Pt has been participating in daily PT, OT but feels limited due to fatigue & leg swelling. Denies any fever, chills, N/V/D, dysuria , abd pain or chest pain, wiht no current cough but reports some dyspnea. Intake & Output 10/06/18 10/07/18 10/08/18 10/09/18 11:59 11:59 11:59 11:59 Intake Total 70 Balance 70 Weight 227 lb 12.8 oz Current Medications Generic Name Dose Route Start Last Admin Trade Name Freq PRN Reason Stop Dose Admin Albuterol Sulfate 1 amp 10/08/18 21:22 Ventolin 0.083% Nebulizer Soln - NEB Q4H PRN SHORT OF BREATH/WHEEZING Albuterol/Ipratropium 1 amp 10/08/18 21:22 Duoneb - NEB Q6H PRN SHORTNESS OF BREATH Amlodipine Besylate 10 mg 10/09/18 10:00 10/09/18 09:04 Norvasc - PO 10 mg DAILY ERMA Administration Budesonide/Formoterol Fumarate 2 puff 10/08/18 22:00 10/09/18 10:41 Symbicort 160/4.5mcg - IH 2 puff BID ERMA Administration Calcium Acetate 667 mg 10/09/18 08:00 10/09/18 08:13 Phoslo - PO 667 mg TIDCM ERMA Administration Cholecalciferol 5,000 unit 10/09/18 10:00 10/09/18 09:07 Vitamin D3 - PO 5,000 unit DAILY ERMA Administration Hydralazine HCl 100 mg 10/08/18 22:00 10/09/18 05:54 Apresoline - PO 100 mg TID ERMA Administration Insulin Aspart 1 vial 10/09/18 07:00 10/09/18 06:03 Novolog Vial Sliding Scale - SQ Not Given ACHS [facility] Protocol Insulin Detemir 10 units 10/09/18 08:00 10/09/18 08:12 Levemir Vial SQ 10 units DAILY@0800 [facility] Administration Insulin Detemir 24 units 10/08/18 22:00 10/08/18 22:07 Levemir Vial SQ Not Given HS [facility] Labetalol HCl 200 mg 10/08/18 22:00 10/09/18 09:05 Normodyne - PO 200 mg BID ERMA Administration Pantoprazole Sodium 40 mg 10/09/18 10:00 10/09/18 09:04 Protonix - PO 40 mg DAILY ERMA Administration Sodium Bicarbonate 650 mg 10/08/18 22:00 10/09/18 09:04 Sodium Bicarbonate - PO 650 mg BID [facility] Administration Warfarin Sodium 7.5 mg 10/09/18 18:00 Coumadin - PO DAILY@1800 ERMA OBJECTIVE: Vital Signs Temperature 98.4 F 10/09/18 09:00 Pulse Rate 65 10/09/18 09:00 Respiratory Rate 20 10/08/18 20:10 Blood Pressure 136/55 L 10/09/18 09:00 O2 Sat by Pulse Oximetry (%) 93 L 10/09/18 09:00 GEN: pleasant, elderly woman in no distress, slightly lethargic but alert, interactive & oriented x3 HEENT: EOMI, MMM, clear oropharynx,no scleral icterus Neck: No JVD, on cervical LAD CVS: NRRR, S1 &S2 nrml, + LSB 2/6 murmur, no rubs or gallops REsp: CTA b/l with b/l midlung field crackles Back: No CVA tenderness, + sacral edema(pitting) Abd: Soft, obese pannus, NT, ND, hypoactive BS Laboratory Results - last 24 hr 10/08/18 10/08/18 10/08/18 15:05 15:54 15:54 WBC 4.7 RBC 2.55 L Hgb 8.2 Hct 25.5 L MCV 99.9 H MCH 32.1 MCHC 32.2 RDW 16.6 H Plt Count 246 MPV 8.9 Absolute Neuts (auto) 2.1 Neutrophils % 45.1 D Lymphocytes % 41.0 H D Monocytes % 10.5 H D Eosinophils % 1.1 D Basophils % 2.3 H D Nucleated RBC % 0 PT with INR INR PTT (Actin FS) 32.0 Anticoagulation Therapy Puncture Site ABG pH ABG pCO2 at Pt Temp ABG pO2 at Pt Temp ABG HCO3 ABG O2 Sat (Measured) ABG O2 Content ABG Base Excess Cr Test O2 Delivery Device Oxygen Flow Rate Vent Mode Vent Rate Mechanical Rate Pressure Support Vent Sodium Potassium Chloride Carbon Dioxide Anion Gap BUN Creatinine Est GFR (CKD-EPI)AfAm Est GFR (CKD-EPI)NonAf POC Glucometer 178 Random Glucose Calcium Phosphorus Magnesium Total Bilirubin AST ALT Alkaline Phosphatase Ammonia Troponin I B-Natriuretic Peptide Total Protein Albumin Vitamin B12 Serum Folate TSH Urine Color Urine Appearance Urine pH Ur Specific [place] Urine Protein Urine Glucose (UA) Urine Ketones Urine Blood Urine Nitrite Urine Bilirubin Urine Urobilinogen Ur Leukocyte Esterase Urine WBC (Auto) Urine RBC (Auto) Urine Casts (Auto) U Pathogenic Cast Auto U Epithel Cells (Auto) Urine Bacteria (Auto) Blood Type Antibody Screen 10/08/18 10/08/18 10/08/18 15:54 15:54 15:54 WBC RBC Hgb Hct MCV MCH MCHC RDW Plt Count MPV Absolute Neuts (auto) Neutrophils % Lymphocytes % Monocytes % Eosinophils % Basophils % Nucleated RBC % PT with INR 17.60 H INR 1.49 H PTT (Actin FS) Anticoagulation Therapy Puncture Site ABG pH ABG pCO2 at Pt Temp ABG pO2 at Pt Temp ABG HCO3 ABG O2 Sat (Measured) ABG O2 Content ABG Base Excess Cr Test O2 Delivery Device Oxygen Flow Rate Vent Mode Vent Rate Mechanical Rate Pressure Support Vent Sodium Potassium Chloride Carbon Dioxide Anion Gap BUN Creatinine Est GFR (CKD-EPI)AfAm Est GFR (CKD-EPI)NonAf POC Glucometer Random Glucose Calcium Phosphorus Magnesium 1.9 Total Bilirubin AST ALT Alkaline Phosphatase Ammonia Troponin I B-Natriuretic Peptide 1052.3 H Total Protein Albumin Vitamin B12 Serum Folate TSH Urine Color Urine Appearance Urine pH Ur Specific [place] Urine Protein Urine Glucose (UA) Urine Ketones Urine Blood Urine Nitrite Urine Bilirubin Urine Urobilinogen Ur Leukocyte Esterase Urine WBC (Auto) Urine RBC (Auto) Urine Casts (Auto) U Pathogenic Cast Auto U Epithel Cells (Auto) Urine Bacteria (Auto) Blood Type Antibody Screen 10/08/18 10/08/18 10/08/18 15:54 15:54 16:53 WBC RBC Hgb Hct MCV MCH MCHC RDW Plt Count MPV Absolute Neuts (auto) Neutrophils % Lymphocytes % Monocytes % Eosinophils % Basophils % Nucleated RBC % PT with INR INR PTT (Actin FS) Anticoagulation Therapy Puncture Site ABG pH ABG pCO2 at Pt Temp ABG pO2 at Pt Temp ABG HCO3 ABG O2 Sat (Measured) ABG O2 Content ABG Base Excess Cr Test O2 Delivery Device Oxygen Flow Rate Vent Mode Vent Rate Mechanical Rate Pressure Support Vent Sodium 140 Potassium 4.9 Chloride 105 Carbon Dioxide 26 Anion Gap 8 BUN 65.2 H Creatinine 3.6 H Est GFR (CKD-EPI)AfAm 13.19 Est GFR (CKD-EPI)NonAf 11.38 POC Glucometer Random Glucose 177 H Calcium 8.6 Phosphorus Magnesium Total Bilirubin 0.3 AST 28 ALT 23 Alkaline Phosphatase 50 Ammonia Troponin I < 0.02 B-Natriuretic Peptide Total Protein 6.0 L Albumin 2.9 L Vitamin B12 847 Serum Folate > 20 H TSH 1.81 Urine Color Yellow Urine Appearance Clear Urine pH 7.0 D Ur Specific [place] 1.009 L Urine Protein Trace Urine Glucose (UA) Negative Urine Ketones Negative Urine Blood Negative Urine Nitrite Negative Urine Bilirubin Negative Urine Urobilinogen 0.2 Ur Leukocyte Esterase Trace Urine WBC (Auto) 3 Urine RBC (Auto) 10.5 Urine Casts (Auto) 12 U Pathogenic Cast Auto None seen U Epithel Cells (Auto) 11.0 Urine Bacteria (Auto) 9.3 Blood Type A POSITIVE Antibody Screen Negative 10/08/18 10/08/18 10/09/18 22:03 23:00 01:05 WBC RBC Hgb Hct MCV MCH MCHC RDW Plt Count MPV Absolute Neuts (auto) Neutrophils % Lymphocytes % Monocytes % Eosinophils % Basophils % Nucleated RBC % PT with INR INR PTT (Actin FS) Anticoagulation Therapy No Result Required. Puncture Site Right radial ABG pH 7.41 ABG pCO2 at Pt Temp 42.2 ABG pO2 at Pt Temp 135 H ABG HCO3 26.3 ABG O2 Sat (Measured) 97.9 ABG O2 Content 10.7 L ABG Base Excess 2.1 H Cr Test Positive O2 Delivery Device Nasal 3 lpm Oxygen Flow Rate Yes Vent Mode No Result Required. Vent Rate No Result Required. Mechanical Rate No Result Required. Pressure Support Vent No Result Required. Sodium Potassium Chloride Carbon Dioxide Anion Gap BUN Creatinine Est GFR (CKD-EPI)AfAm Est GFR (CKD-EPI)NonAf POC Glucometer 108 Random Glucose Calcium Phosphorus Magnesium Total Bilirubin AST ALT Alkaline Phosphatase Ammonia 26.90 Troponin I B-Natriuretic Peptide Total Protein Albumin Vitamin B12 Serum Folate TSH Urine Color Urine Appearance Urine pH Ur Specific [place] Urine Protein Urine Glucose (UA) Urine Ketones Urine Blood Urine Nitrite Urine Bilirubin Urine Urobilinogen Ur Leukocyte Esterase Urine WBC (Auto) Urine RBC (Auto) Urine Casts (Auto) U Pathogenic Cast Auto U Epithel Cells (Auto) Urine Bacteria (Auto) Blood Type Antibody Screen 10/09/18 10/09/18 10/09/18 01:05 05:35 05:35 WBC 4.0 RBC 2.38 L Hgb 7.8 L Hct 23.9 L MCV 100.5 H MCH 32.6 MCHC 32.4 RDW 16.6 H Plt Count 225 MPV 9.0 Absolute Neuts (auto) 1.7 Neutrophils % 41.7 L Lymphocytes % 45.4 H Monocytes % 10.2 Eosinophils % 1.2 Basophils % 1.5 Nucleated RBC % 0 PT with INR INR PTT (Actin FS) Anticoagulation Therapy Puncture Site ABG pH ABG pCO2 at Pt Temp ABG pO2 at Pt Temp ABG HCO3 ABG O2 Sat (Measured) ABG O2 Content ABG Base Excess Cr Test O2 Delivery Device Oxygen Flow Rate Vent Mode Vent Rate Mechanical Rate Pressure Support Vent Sodium 144 142 Potassium 4.1 4.1 Chloride 107 106 Carbon Dioxide 28 27 Anion Gap 9 9 BUN 64.6 H 61.2 H Creatinine 3.5 H 3.6 H Est GFR (CKD-EPI)AfAm 13.65 13.19 Est GFR (CKD-EPI)NonAf 11.77 11.38 POC Glucometer Random Glucose 105 111 H Calcium 8.6 8.3 L Phosphorus 3.8 Magnesium 1.9 Total Bilirubin 0.3 0.3 AST 12 L 12 L ALT 16 18 Alkaline Phosphatase 47 47 Ammonia Troponin I B-Natriuretic Peptide Total Protein 5.2 L 5.3 L Albumin 2.6 L 2.7 L Vitamin B12 Serum Folate TSH Urine Color Urine Appearance Urine pH Ur Specific [place] Urine Protein Urine Glucose (UA) Urine Ketones Urine Blood Urine Nitrite Urine Bilirubin Urine Urobilinogen Ur Leukocyte Esterase Urine WBC (Auto) Urine RBC (Auto) Urine Casts (Auto) U Pathogenic Cast Auto U Epithel Cells (Auto) Urine Bacteria (Auto) Blood Type Antibody Screen 10/09/18 10/09/18 05:35 05:35 WBC RBC Hgb Hct MCV MCH MCHC RDW Plt Count MPV Absolute Neuts (auto) Neutrophils % Lymphocytes % Monocytes % Eosinophils % Basophils % Nucleated RBC % PT with INR 17.80 H INR 1.50 H PTT (Actin FS) Anticoagulation Therapy Puncture Site ABG pH ABG pCO2 at Pt Temp ABG pO2 at Pt Temp ABG HCO3 ABG O2 Sat (Measured) ABG O2 Content ABG Base Excess Cr Test O2 Delivery Device Oxygen Flow Rate Vent Mode Vent Rate Mechanical Rate Pressure Support Vent Sodium Potassium Chloride Carbon Dioxide Anion Gap BUN Creatinine Est GFR (CKD-EPI)AfAm Est GFR (CKD-EPI)NonAf POC Glucometer 113 Random Glucose Calcium Phosphorus Magnesium Total Bilirubin AST ALT Alkaline Phosphatase Ammonia Troponin I B-Natriuretic Peptide Total Protein Albumin Vitamin B12 Serum Folate TSH Urine Color Urine Appearance Urine pH asUr Specific [place] Urine Protein Urine Glucose (UA) Urine Ketones Urine Blood Urine Nitrite Urine Bilirubin Urine Urobilinogen Ur Leukocyte Esterase Urine WBC (Auto) Urine RBC (Auto) Urine Casts (Auto) U Pathogenic Cast Auto U Epithel Cells (Auto) Urine Bacteria (Auto) Blood Type Antibody Screen ASSESSMENT AND PLAN: COPD/ TREVON vs OHS: - per ABG yest pt with very slight metabolic alkalosis no hypercarbea or hypoxia -c/w symbicort daily & duonebs as needed, resume nightly CPAP - c/w daytime Nasal cannula 2L to maintain O2 sat > 88%, < 95% AFib: - presently not tachycardic & regular - c/w labetalol & warfarin nighltly - target INR 2-3, if remains low will likely need to increase warfarin to 10mg nightly CKD stage V - pt does not wish to undergo dialysis in event of progression to ESRD though presently does not appear overtly uremic and clinically not overloaded to point of requiring LEASING CONSULTANT with no marked hyperkalemia, acidosis or intoxications - c/w TID HCo3 to target goal > 22 - avoid NSAIDs - c/w phoslo TID - pt requires diuresis given volume overload and pt weight up ~ 5 kg since last admission - incease lasix to 60mg daily IV and monitor UOP, daily weights though would not place jarvis catheter to measure at this time HTN/ CHF - pt with diastolic HF and volume overload - requires diuresis as noted above - c/w amlodipine, labetalol, hydralazine as per home regimen and up-titrate lasix DVT PPx; pt on systemic AC Nutrition: Low sodium, low phos, Low potassium & moderate carb diet
[2018-10-09] MEDS ORDERED: FUROSEMIDE 40 MG/4 ML INJECTABLE VIAL IVPUSH SCH ×2 (12:15)
--- NOTE | 2018-10-09 12:47 | PN ---
<Sridhar Monk - Last Filed: 10/09/18 13:59> Physical Exam: SUBJECTIVE: Patient seen and examined at bedside this AM. OBJECTIVE: Vital Signs Period Temp Pulse Resp BP Sys/Renee Pulse Ox Last 24 Hr 97.2 F-98.4 F 65-77 19-20 136-174/51-71 93-100 GENERAL: The patient is awake, alert, and fully oriented, in no acute distress. HEAD: Normal with no signs of trauma. NECK: supple. LUNGS: Breath sounds reduced, some crackle b/l. HEART: Regular rate and rhythm, S1, S2 without murmur, rub or gallop. ABDOMEN: Soft, nontender, nondistended, normoactive bowel sounds, no guarding, no rebound. EXTREMITIES: 2+ pulses, 2+ pitting edema warm, well-perfused, no edema. PSYCH: Normal mood, normal affect. SKIN: Warm, dry, no rashes or lesions noted, anasarca present b/l LE's and b/l on lower back. Laboratory Results - last 24 hr 10/08/18 10/08/18 10/08/18 15:05 15:54 15:54 WBC 4.7 RBC 2.55 L Hgb 8.2 L Hct 25.5 L MCV 99.9 H MCH 32.1 MCHC 32.2 RDW 16.6 H Plt Count 246 MPV 8.9 Absolute Neuts (auto) 2.1 Neutrophils % 45.1 D Lymphocytes % 41.0 H D Monocytes % 10.5 H D Eosinophils % 1.1 D Basophils % 2.3 H D Nucleated RBC % 0 PT with INR INR PTT (Actin FS) 32.0 Anticoagulation Therapy Puncture Site ABG pH ABG pCO2 at Pt Temp ABG pO2 at Pt Temp ABG HCO3 ABG O2 Sat (Measured) ABG O2 Content ABG Base Excess Cr Test O2 Delivery Device Oxygen Flow Rate Vent Mode Vent Rate Mechanical Rate Pressure Support Vent Sodium Potassium Chloride Carbon Dioxide Anion Gap BUN Creatinine Est GFR (CKD-EPI)AfAm Est GFR (CKD-EPI)NonAf POC Glucometer 178 Random Glucose Calcium Phosphorus Magnesium Total Bilirubin AST ALT Alkaline Phosphatase Ammonia Troponin I B-Natriuretic Peptide Total Protein Albumin Vitamin B12 Serum Folate TSH Urine Color Urine Appearance Urine pH Ur Specific [place] Urine Protein Urine Glucose (UA) Urine Ketones Urine Blood Urine Nitrite Urine Bilirubin Urine Urobilinogen Ur Leukocyte Esterase Urine WBC (Auto) Urine RBC (Auto) Urine Casts (Auto) U Pathogenic Cast Auto U Epithel Cells (Auto) Urine Bacteria (Auto) Blood Type Antibody Screen 10/08/18 10/08/18 10/08/18 15:54 15:54 15:54 WBC RBC Hgb Hct MCV MCH MCHC RDW Plt Count MPV Absolute Neuts (auto) Neutrophils % Lymphocytes % Monocytes % Eosinophils % Basophils % Nucleated RBC % PT with INR 17.60 H INR 1.49 H PTT (Actin FS) Anticoagulation Therapy Puncture Site ABG pH ABG pCO2 at Pt Temp ABG pO2 at Pt Temp ABG HCO3 ABG O2 Sat (Measured) ABG O2 Content ABG Base Excess Cr Test O2 Delivery Device Oxygen Flow Rate Vent Mode Vent Rate Mechanical Rate Pressure Support Vent Sodium Potassium Chloride Carbon Dioxide Anion Gap BUN Creatinine Est GFR (CKD-EPI)AfAm Est GFR (CKD-EPI)NonAf POC Glucometer Random Glucose Calcium Phosphorus Magnesium 1.9 Total Bilirubin AST ALT Alkaline Phosphatase Ammonia Troponin I B-Natriuretic Peptide 1052.3 H Total Protein Albumin Vitamin B12 Serum Folate TSH Urine Color Urine Appearance Urine pH Ur Specific [place] Urine Protein Urine Glucose (UA) Urine Ketones Urine Blood Urine Nitrite Urine Bilirubin Urine Urobilinogen Ur Leukocyte Esterase Urine WBC (Auto) Urine RBC (Auto) Urine Casts (Auto) U Pathogenic Cast Auto U Epithel Cells (Auto) Urine Bacteria (Auto) Blood Type Antibody Screen 10/08/18 10/08/18 10/08/18 15:54 15:54 16:53 WBC RBC Hgb Hct MCV MCH MCHC RDW Plt Count MPV Absolute Neuts (auto) Neutrophils % Lymphocytes % Monocytes % Eosinophils % Basophils % Nucleated RBC % PT with INR INR PTT (Actin FS) Anticoagulation Therapy Puncture Site ABG pH ABG pCO2 at Pt Temp ABG pO2 at Pt Temp ABG HCO3 ABG O2 Sat (Measured) ABG O2 Content ABG Base Excess Cr Test O2 Delivery Device Oxygen Flow Rate Vent Mode Vent Rate Mechanical Rate Pressure Support Vent Sodium 140 Potassium 4.9 Chloride 105 Carbon Dioxide 26 Anion Gap 8 BUN 65.2 H Creatinine 3.6 H Est GFR (CKD-EPI)AfAm 13.19 Est GFR (CKD-EPI)NonAf 11.38 POC Glucometer Random Glucose 177 H Calcium 8.6 Phosphorus Magnesium Total Bilirubin 0.3 AST 28 ALT 23 Alkaline Phosphatase 50 Ammonia Troponin I < 0.02 B-Natriuretic Peptide Total Protein 6.0 L Albumin 2.9 L Vitamin B12 847 Serum Folate > 20 H TSH 1.81 Urine Color Yellow Urine Appearance Clear Urine pH 7.0 D Ur Specific [place] 1.009 L Urine Protein Trace Urine Glucose (UA) Negative Urine Ketones Negative Urine Blood Negative Urine Nitrite Negative Urine Bilirubin Negative Urine Urobilinogen 0.2 Ur Leukocyte Esterase Trace Urine WBC (Auto) 3 Urine RBC (Auto) 10.5 Urine Casts (Auto) 12 U Pathogenic Cast Auto None seen U Epithel Cells (Auto) 11.0 Urine Bacteria (Auto) 9.3 Blood Type A POSITIVE Antibody Screen Negative 10/08/18 10/08/18 10/09/18 22:03 23:00 01:05 WBC RBC Hgb Hct MCV MCH MCHC RDW Plt Count MPV Absolute Neuts (auto) Neutrophils % Lymphocytes % Monocytes % Eosinophils % Basophils % Nucleated RBC % PT with INR INR PTT (Actin FS) Anticoagulation Therapy No Result Required. Puncture Site Right radial ABG pH 7.41 ABG pCO2 at Pt Temp 42.2 ABG pO2 at Pt Temp 135 H ABG HCO3 26.3 ABG O2 Sat (Measured) 97.9 ABG O2 Content 10.7 L ABG Base Excess 2.1 H Cr Test Positive O2 Delivery Device Nasal 3 lpm Oxygen Flow Rate Yes Vent Mode No Result Required. Vent Rate No Result Required. Mechanical Rate No Result Required. Pressure Support Vent No Result Required. Sodium Potassium Chloride Carbon Dioxide Anion Gap BUN Creatinine Est GFR (CKD-EPI)AfAm Est GFR (CKD-EPI)NonAf POC Glucometer 108 Random Glucose Calcium Phosphorus Magnesium Total Bilirubin AST ALT Alkaline Phosphatase Ammonia 26.90 Troponin I B-Natriuretic Peptide Total Protein Albumin Vitamin B12 Serum Folate TSH Urine Color Urine Appearance Urine pH Ur Specific [place] Urine Protein Urine Glucose (UA) Urine Ketones Urine Blood Urine Nitrite Urine Bilirubin Urine Urobilinogen Ur Leukocyte Esterase Urine WBC (Auto) Urine RBC (Auto) Urine Casts (Auto) U Pathogenic Cast Auto U Epithel Cells (Auto) Urine Bacteria (Auto) Blood Type Antibody Screen 10/09/18 10/09/18 10/09/18 01:05 05:35 05:35 WBC 4.0 RBC 2.38 L Hgb 7.8 L Hct 23.9 L MCV 100.5 H MCH 32.6 MCHC 32.4 RDW 16.6 H Plt Count 225 MPV 9.0 Absolute Neuts (auto) 1.7 Neutrophils % 41.7 L Lymphocytes % 45.4 H Monocytes % 10.2 Eosinophils % 1.2 Basophils % 1.5 Nucleated RBC % 0 PT with INR INR PTT (Actin FS) Anticoagulation Therapy Puncture Site ABG pH ABG pCO2 at Pt Temp ABG pO2 at Pt Temp ABG HCO3 ABG O2 Sat (Measured) ABG O2 Content ABG Base Excess Cr Test O2 Delivery Device Oxygen Flow Rate Vent Mode Vent Rate Mechanical Rate Pressure Support Vent Sodium 144 142 Potassium 4.1 4.1 Chloride 107 106 Carbon Dioxide 28 27 Anion Gap 9 9 BUN 64.6 H 61.2 H Creatinine 3.5 H 3.6 H Est GFR (CKD-EPI)AfAm 13.65 13.19 Est GFR (CKD-EPI)NonAf 11.77 11.38 POC Glucometer Random Glucose 105 111 H Calcium 8.6 8.3 L Phosphorus 3.8 Magnesium 1.9 Total Bilirubin 0.3 0.3 AST 12 L 12 L ALT 16 18 Alkaline Phosphatase 47 47 Ammonia Troponin I B-Natriuretic Peptide Total Protein 5.2 L 5.3 L Albumin 2.6 L 2.7 L Vitamin B12 Serum Folate TSH Urine Color Urine Appearance Urine pH Ur Specific [place] Urine Protein Urine Glucose (UA) Urine Ketones Urine Blood Urine Nitrite Urine Bilirubin Urine Urobilinogen Ur Leukocyte Esterase Urine WBC (Auto) Urine RBC (Auto) Urine Casts (Auto) U Pathogenic Cast Auto U Epithel Cells (Auto) Urine Bacteria (Auto) Blood Type Antibody Screen 10/09/18 10/09/18 10/09/18 05:35 05:35 11:50 WBC RBC Hgb Hct MCV MCH MCHC RDW Plt Count MPV Absolute Neuts (auto) Neutrophils % Lymphocytes % Monocytes % Eosinophils % Basophils % Nucleated RBC % PT with INR 17.80 H INR 1.50 H PTT (Actin FS) Anticoagulation Therapy Puncture Site ABG pH ABG pCO2 at Pt Temp ABG pO2 at Pt Temp ABG HCO3 ABG O2 Sat (Measured) ABG O2 Content ABG Base Excess Cr Test O2 Delivery Device Oxygen Flow Rate Vent Mode Vent Rate Mechanical Rate Pressure Support Vent Sodium Potassium Chloride Carbon Dioxide Anion Gap BUN Creatinine Est GFR (CKD-EPI)AfAm Est GFR (CKD-EPI)NonAf POC Glucometer 113 127 Random Glucose Calcium Phosphorus Magnesium Total Bilirubin AST ALT Alkaline Phosphatase Ammonia Troponin I B-Natriuretic Peptide Total Protein Albumin Vitamin B12 Serum Folate TSH Urine Color Urine Appearance Urine pH Ur Specific [place] Urine Protein Urine Glucose (UA) Urine Ketones Urine Blood Urine Nitrite Urine Bilirubin Urine Urobilinogen Ur Leukocyte Esterase Urine WBC (Auto) Urine RBC (Auto) Urine Casts (Auto) U Pathogenic Cast Auto U Epithel Cells (Auto) Urine Bacteria (Auto) Blood Type Antibody Screen Active Medications Generic Name Dose Route Start Last Admin Trade Name Freq PRN Reason Stop Dose Admin Albuterol Sulfate 1 amp 10/08/18 21:22 Ventolin 0.083% Nebulizer Soln - NEB Q4H PRN SHORT OF BREATH/WHEEZING Albuterol/Ipratropium 1 amp 10/08/18 21:22 Duoneb - NEB Q6H PRN SHORTNESS OF BREATH Amlodipine Besylate 10 mg 10/09/18 10:00 10/09/18 09:04 Norvasc - PO 10 mg DAILY ERMA Administration Budesonide/Formoterol Fumarate 2 puff 10/08/18 22:00 10/09/18 10:41 Symbicort 160/4.5mcg - IH 2 puff BID ERMA Administration Calcium Acetate 667 mg 10/09/18 08:00 10/09/18 12:06 Phoslo - PO 667 mg TIDCM ERMA Administration Cholecalciferol 5,000 unit 10/09/18 10:00 10/09/18 09:07 Vitamin D3 - PO 5,000 unit DAILY ERMA Administration Furosemide 60 mg 10/10/18 10:00 Lasix Injection - IVPUSH DAILY [facility] Furosemide 20 mg 10/09/18 12:44 Lasix Injection - IVPUSH 10/09/18 12:45 ONCE ONE Hydralazine HCl 100 mg 10/08/18 22:00 10/09/18 05:54 Apresoline - PO 100 mg TID [facility] Administration Insulin Aspart 1 vial 10/09/18 07:00 10/09/18 12:02 Novolog Vial Sliding Scale - SQ Not Given ACHS [facility] Protocol Insulin Detemir 10 units 10/09/18 08:00 10/09/18 08:12 Levemir Vial SQ 10 units DAILY@0800 [facility] Administration Insulin Detemir 24 units 10/08/18 22:00 10/08/18 22:07 Levemir Vial SQ Not Given HS [facility] Labetalol HCl 200 mg 10/08/18 22:00 10/09/18 09:05 Normodyne - PO 200 mg BID ERMA Administration Pantoprazole Sodium 40 mg 10/09/18 10:00 10/09/18 09:04 Protonix - PO 40 mg DAILY ERMA Administration Sodium Bicarbonate 650 mg 10/08/18 22:00 10/09/18 09:04 Sodium Bicarbonate - PO 650 mg BID ERMA Administration Warfarin Sodium 7.5 mg 10/09/18 18:00 Coumadin - PO DAILY@1800 [facility] ASSESSMENT/PLAN: Pt is a 77 yo F wiht pMhx of obesity, HTN, DM, COPD on home nightly CPAP, CKD stage IV-5 (b/l SCr: 3.4-3.6) presented with reported mentation changes and lethargy in the presence of anasarca. #COPD/TREVON vs Pickwickian syndrome : - slight metabolic alkalosis on ABG, no hypoxia or hypercarbia of note. - c/w symbicort daily & duonebs as needed, resume nightly CPAP with settings of 12 IPAP, EPAP- 5 40%O2, Rate-18. - c/w daytime Nasal cannula 2L to maintain O2 sat > 88%, < 95% #AFib: - presently not tachycardic, normal sinus rhythm. - c/w labetalol & warfarin nightly - target INR 2-3, - if INR continues to be low, we will likely change warfarin to 10mg HS #CKD stage V - pt does not wish to undergo dialysis - presently pt is not uremic and clinically not overloaded. - not requiring [employer] - no marked hyperkalemia, acidosis or intoxications - c/w 650 BID PO NaHCo3 to target goal > 22 - avoid NSAIDs due to its nephrotoxic potential. - c/w phoslo 650 TID - inceased lasix to 60mg daily IV - monitor UOP, daily weights - no jarvis at this time #HTN/ CHF - pt with HFpEF and volume overload - Anasarca in theory albumin treatment should work but has not been shown to be very effective in pts w anasarca so will not initiate that at this time. - c/w lasix 60mg IV daily. - c/w amlodipine, labetalol, hydralazine as prescribed at home DVT PPx: pt on systemic AC #FEN: - Continue to monitor lytes - continue no fluids. - Low sodium, low phos, Low potassium & moderate carb diet Visit type - Emergency Visit Emergency Visit: Yes ED Registration Date: 10/08/18 Care time: The patient presented to the Emergency Department on the above date and was hospitalized for further evaluation of their emergent condition. - New Patient This patient is new to me today: Yes Date on this admission: 10/09/18 - Critical Care Critical Care patient: No - Discharge Referral Referred to [facility] Med [facility].C[facility] No ATTENDING PHYSICIAN STATEMENT I saw and evaluated the patient. I reviewed the resident's note and discussed the case with the resident. I agree with the resident's findings and plan as documented. SUBJECTIVE: OBJECTIVE: ASSESSMENT AND PLAN: <Elliot Oh - Last Filed: 10/09/18 16:33> Physical Exam: SUBJECTIVE: Patient seen and examined OBJECTIVE: Vital Signs Period Temp Pulse Resp BP Sys/Renee Pulse Ox Last 24 Hr 97.2 F-98.5 F 65-77 20-20 136-174/51-74 93-98 GENERAL: The patient is awake, alert, and fully oriented, in no acute distress. HEAD: Normal with no signs of trauma. EYES: PERRL, extraocular movements intact, sclera anicteric, conjunctiva clear. No ptosis. ENT: Ears normal, nares patent, oropharynx clear without exudates, moist mucous membranes. NECK: Trachea midline, full range of motion, supple. LUNGS: Breath sounds equal, clear to auscultation bilaterally, no wheezes, no crackles, no accessory muscle use. HEART: Regular rate and rhythm, S1, S2 without murmur, rub or gallop. ABDOMEN: Soft, nontender, nondistended, normoactive bowel sounds, no guarding, no rebound, no hepatosplenomegaly, no masses. EXTREMITIES: 2+ pulses, warm, well-perfused, no edema. NEUROLOGICAL: Cranial nerves II through XII grossly intact. Normal speech, gait not observed. PSYCH: Normal mood, normal affect. SKIN: Warm, dry, normal turgor, no rashes or lesions noted Laboratory Results - last 24 hr 10/08/18 10/08/18 10/08/18 15:54 15:54 15:54 WBC RBC Hgb Hct MCV MCH MCHC RDW Plt Count MPV Absolute Neuts (auto) Neutrophils % Lymphocytes % Monocytes % Eosinophils % Basophils % Nucleated RBC % PT with INR INR PTT (Actin FS) 32.0 Anticoagulation Therapy Puncture Site ABG pH ABG pCO2 at Pt Temp ABG pO2 at Pt Temp ABG HCO3 ABG O2 Sat (Measured) ABG O2 Content ABG Base Excess Cr Test O2 Delivery Device Oxygen Flow Rate Vent Mode Vent Rate Mechanical Rate Pressure Support Vent Sodium Potassium Chloride Carbon Dioxide Anion Gap BUN Creatinine Est GFR (CKD-EPI)AfAm Est GFR (CKD-EPI)NonAf POC Glucometer Random Glucose Calcium Phosphorus Magnesium 1.9 Total Bilirubin AST ALT Alkaline Phosphatase Ammonia Troponin I B-Natriuretic Peptide 1052.3 H Total Protein Albumin Vitamin B12 Serum Folate TSH Urine Color Urine Appearance Urine pH Ur Specific [place] Urine Protein Urine Glucose (UA) Urine Ketones Urine Blood Urine Nitrite Urine Bilirubin Urine Urobilinogen Ur Leukocyte Esterase Urine WBC (Auto) Urine RBC (Auto) Urine Casts (Auto) U Pathogenic Cast Auto U Epithel Cells (Auto) Urine Bacteria (Auto) Blood Type Antibody Screen 10/08/18 10/08/18 10/08/18 15:54 15:54 15:54 WBC RBC Hgb Hct MCV MCH MCHC RDW Plt Count MPV Absolute Neuts (auto) Neutrophils % Lymphocytes % Monocytes % Eosinophils % Basophils % Nucleated RBC % PT with INR 17.60 H INR 1.49 H PTT (Actin FS) Anticoagulation Therapy Puncture Site ABG pH ABG pCO2 at Pt Temp ABG pO2 at Pt Temp ABG HCO3 ABG O2 Sat (Measured) ABG O2 Content ABG Base Excess Cr Test O2 Delivery Device Oxygen Flow Rate Vent Mode Vent Rate Mechanical Rate Pressure Support Vent Sodium 140 Potassium 4.9 Chloride 105 Carbon Dioxide 26 Anion Gap 8 BUN 65.2 H Creatinine 3.6 H Est GFR (CKD-EPI)AfAm 13.19 Est GFR (CKD-EPI)NonAf 11.38 POC Glucometer Random Glucose 177 H Calcium 8.6 Phosphorus Magnesium Total Bilirubin 0.3 AST 28 ALT 23 Alkaline Phosphatase 50 Ammonia Troponin I < 0.02 B-Natriuretic Peptide Total Protein 6.0 L Albumin 2.9 L Vitamin B12 847 Serum Folate > 20 H TSH 1.81 Urine Color Urine Appearance Urine pH Ur Specific [place] Urine Protein Urine Glucose (UA) Urine Ketones Urine Blood Urine Nitrite Urine Bilirubin Urine Urobilinogen Ur Leukocyte Esterase Urine WBC (Auto) Urine RBC (Auto) Urine Casts (Auto) U Pathogenic Cast Auto U Epithel Cells (Auto) Urine Bacteria (Auto) Blood Type A POSITIVE Antibody Screen Negative 10/08/18 10/08/18 10/08/18 16:53 22:03 23:00 WBC RBC Hgb Hct MCV MCH MCHC RDW Plt Count MPV Absolute Neuts (auto) Neutrophils % Lymphocytes % Monocytes % Eosinophils % Basophils % Nucleated RBC % PT with INR INR PTT (Actin FS) Anticoagulation Therapy No Result Required. Puncture Site Right radial ABG pH 7.41 ABG pCO2 at Pt Temp 42.2 ABG pO2 at Pt Temp 135 H ABG HCO3 26.3 ABG O2 Sat (Measured) 97.9 ABG O2 Content 10.7 L ABG Base Excess 2.1 H Cr Test Positive O2 Delivery Device Nasal 3 lpm Oxygen Flow Rate Yes Vent Mode No Result Required. Vent Rate No Result Required. Mechanical Rate No Result Required. Pressure Support Vent No Result Required. Sodium Potassium Chloride Carbon Dioxide Anion Gap BUN Creatinine Est GFR (CKD-EPI)AfAm Est GFR (CKD-EPI)NonAf POC Glucometer 108 Random Glucose Calcium Phosphorus Magnesium Total Bilirubin AST ALT Alkaline Phosphatase Ammonia Troponin I B-Natriuretic Peptide Total Protein Albumin Vitamin B12 Serum Folate TSH Urine Color Yellow Urine Appearance Clear Urine pH 7.0 D Ur Specific [place] 1.009 L Urine Protein Trace Urine Glucose (UA) Negative Urine Ketones Negative Urine Blood Negative Urine Nitrite Negative Urine Bilirubin Negative Urine Urobilinogen 0.2 Ur Leukocyte Esterase Trace Urine WBC (Auto) 3 Urine RBC (Auto) 10.5 Urine Casts (Auto) 12 U Pathogenic Cast Auto None seen U Epithel Cells (Auto) 11.0 Urine Bacteria (Auto) 9.3 Blood Type Antibody Screen 10/09/18 10/09/18 10/09/18 01:05 01:05 05:35 WBC 4.0 RBC 2.38 L Hgb 7.8 L Hct 23.9 L MCV 100.5 H MCH 32.6 MCHC 32.4 RDW 16.6 H Plt Count 225 MPV 9.0 Absolute Neuts (auto) 1.7 Neutrophils % 41.7 L Lymphocytes % 45.4 H Monocytes % 10.2 Eosinophils % 1.2 Basophils % 1.5 Nucleated RBC % 0 PT with INR INR PTT (Actin FS) Anticoagulation Therapy Puncture Site ABG pH ABG pCO2 at Pt Temp ABG pO2 at Pt Temp ABG HCO3 ABG O2 Sat (Measured) ABG O2 Content ABG Base Excess Cr Test O2 Delivery Device Oxygen Flow Rate Vent Mode Vent Rate Mechanical Rate Pressure Support Vent Sodium 144 Potassium 4.1 Chloride 107 Carbon Dioxide 28 Anion Gap 9 BUN 64.6 H Creatinine 3.5 H Est GFR (CKD-EPI)AfAm 13.65 Est GFR (CKD-EPI)NonAf 11.77 POC Glucometer Random Glucose 105 Calcium 8.6 Phosphorus Magnesium Total Bilirubin 0.3 AST 12 L ALT 16 Alkaline Phosphatase 47 Ammonia 26.90 Troponin I B-Natriuretic Peptide Total Protein 5.2 L Albumin 2.6 L Vitamin B12 Serum Folate TSH Urine Color Urine Appearance Urine pH Ur Specific [place] Urine Protein Urine Glucose (UA) Urine Ketones Urine Blood Urine Nitrite Urine Bilirubin Urine Urobilinogen Ur Leukocyte Esterase Urine WBC (Auto) Urine RBC (Auto) Urine Casts (Auto) U Pathogenic Cast Auto U Epithel Cells (Auto) Urine Bacteria (Auto) Blood Type Antibody Screen 10/09/18 10/09/18 10/09/18 05:35 05:35 05:35 WBC RBC Hgb Hct MCV MCH MCHC RDW Plt Count MPV Absolute Neuts (auto) Neutrophils % Lymphocytes % Monocytes % Eosinophils % Basophils % Nucleated RBC % PT with INR 17.80 H INR 1.50 H PTT (Actin FS) Anticoagulation Therapy Puncture Site ABG pH ABG pCO2 at Pt Temp ABG pO2 at Pt Temp ABG HCO3 ABG O2 Sat (Measured) ABG O2 Content ABG Base Excess Cr Test O2 Delivery Device Oxygen Flow Rate Vent Mode Vent Rate Mechanical Rate Pressure Support Vent Sodium 142 Potassium 4.1 Chloride 106 Carbon Dioxide 27 Anion Gap 9 BUN 61.2 H Creatinine 3.6 H Est GFR (CKD-EPI)AfAm 13.19 Est GFR (CKD-EPI)NonAf 11.38 POC Glucometer 113 Random Glucose 111 H Calcium 8.3 L Phosphorus 3.8 Magnesium 1.9 Total Bilirubin 0.3 AST 12 L ALT 18 Alkaline Phosphatase 47 Ammonia Troponin I B-Natriuretic Peptide Total Protein 5.3 L Albumin 2.7 L Vitamin B12 Serum Folate TSH Urine Color Urine Appearance Urine pH Ur Specific [place] Urine Protein Urine Glucose (UA) Urine Ketones Urine Blood Urine Nitrite Urine Bilirubin Urine Urobilinogen Ur Leukocyte Esterase Urine WBC (Auto) Urine RBC (Auto) Urine Casts (Auto) U Pathogenic Cast Auto U Epithel Cells (Auto) Urine Bacteria (Auto) Blood Type Antibody Screen 10/09/18 11:50 WBC RBC Hgb Hct MCV MCH MCHC RDW Plt Count MPV Absolute Neuts (auto) Neutrophils % Lymphocytes % Monocytes % Eosinophils % Basophils % Nucleated RBC % PT with INR INR PTT (Actin FS) Anticoagulation Therapy Puncture Site ABG pH ABG pCO2 at Pt Temp ABG pO2 at Pt Temp ABG HCO3 ABG O2 Sat (Measured) ABG O2 Content ABG Base Excess Rc Test O2 Delivery Device Oxygen Flow Rate Vent Mode Vent Rate Mechanical Rate Pressure Support Vent Sodium Potassium Chloride Carbon Dioxide Anion Gap BUN Creatinine Est GFR (CKD-EPI)AfAm Est GFR (CKD-EPI)NonAf POC Glucometer 127 Random Glucose Calcium Phosphorus Magnesium Total Bilirubin AST ALT Alkaline Phosphatase Ammonia Troponin I B-Natriuretic Peptide Total Protein Albumin Vitamin B12 Serum Folate TSH Urine Color Urine Appearance Urine pH Ur Specific [place] Urine Protein Urine Glucose (UA) Urine Ketones Urine Blood Urine Nitrite Urine Bilirubin Urine Urobilinogen Ur Leukocyte Esterase Urine WBC (Auto) Urine RBC (Auto) Urine Casts (Auto) U Pathogenic Cast Auto U Epithel Cells (Auto) Urine Bacteria (Auto) Blood Type Antibody Screen Active Medications Generic Name Dose Route Start Last Admin Trade Name Freq PRN Reason Stop Dose Admin Albuterol Sulfate 1 amp 10/08/18 21:22 Ventolin 0.083% Nebulizer Soln - NEB Q4H PRN SHORT OF BREATH/WHEEZING Albuterol/Ipratropium 1 amp 10/08/18 21:22 Duoneb - NEB Q6H PRN SHORTNESS OF BREATH Amlodipine Besylate 10 mg 10/09/18 10:00 10/09/18 09:04 Norvasc - PO 10 mg DAILY ERMA Administration Budesonide/Formoterol Fumarate 2 puff 10/08/18 22:00 10/09/18 10:41 Symbicort 160/4.5mcg - IH 2 puff BID ERMA Administration Calcium Acetate 667 mg 10/09/18 08:00 10/09/18 12:06 Phoslo - PO 667 mg TIDCM ERMA Administration Cholecalciferol 5,000 unit 10/09/18 10:00 10/09/18 09:07 Vitamin D3 - PO 5,000 unit DAILY ERMA Administration Furosemide 60 mg 10/10/18 10:00 Lasix Injection - IVPUSH DAILY [facility] Hydralazine HCl 100 mg 10/08/18 22:00 10/09/18 13:18 Apresoline - PO 100 mg TID ERMA Administration Insulin Aspart 1 vial 10/09/18 07:00 10/09/18 12:02 Novolog Vial Sliding Scale - SQ Not Given ACHS [facility] Protocol Insulin Detemir 10 units 10/09/18 08:00 10/09/18 08:12 Levemir Vial SQ 10 units DAILY@0800 ERMA Administration Insulin Detemir 24 units 10/08/18 22:00 10/08/18 22:07 Levemir Vial SQ Not Given HS [facility] Labetalol HCl 200 mg 10/08/18 22:00 10/09/18 09:05 Normodyne - PO 200 mg BID ERMA Administration Pantoprazole Sodium 40 mg 10/09/18 10:00 10/09/18 09:04 Protonix - PO 40 mg DAILY ERMA Administration Sodium Bicarbonate 650 mg 10/08/18 22:00 10/09/18 09:04 Sodium Bicarbonate - PO 650 mg BID ERMA Administration Warfarin Sodium 7.5 mg 10/09/18 18:00 Coumadin - PO DAILY@1800 [facility] ASSESSMENT/PLAN: ATTENDING PHYSICIAN STATEMENT See teaching attending note.
--- NOTE | 2018-10-09 15:19 | EKG ---
Test Reason : Blood Pressure : / mmHG Vent. Rate : 066 BPM Atrial Rate : 066 BPM P-R Int : 162 ms QRS Dur : 080 ms QT Int : 408 ms P-R-T Axes : 054 -18 061 degrees QTc Int : 427 ms NORMAL SINUS RHYTHM SEPTAL INFARCT (CITED ON OR BEFORE 09-SEP-2018) ABNORMAL ECG WHEN COMPARED WITH ECG OF 09-SEP-2018 22:40, NONSPECIFIC T WAVE ABNORMALITY HAS REPLACED INVERTED T WAVES IN LATERAL LEADS Confirmed by MD Ifeanyi, Mohsen ([id number]) on 10/09/2018 3:19:07 PM Referred By: Confirmed By:Mohsen Suggs MD
[2018-10-09] MEDS: WARFARIN NA 7.5 MG TABLET (FP) PO SCH (17:56)
[2018-10-09] MEDS: ALBUTEROL SO4 2.5/IPRATROPIUM 0.5 INH SOL 3 ML VIAL.NEB. NEB PRN (20:45)
--- NOTE | 2018-10-09 21:20 | CON.NEP ---
Consult Consult Specialty:: nephrology Referred by:: marjorie bazzi Reason for Consultation:: azotemia and LE edema - History of Present Illness Chief Complaint: altered mental status History of Present Illness: 77 y/o [place] resident acute altered mental status slower speech and leg edema recent hosp for aspiration pneumonitis no fever or chills Past surgical history: Tubal Ligation. Cardio: Ablation. Ortho: hammer toes, trigger finger Social history: Former smoker, quit 1 year ago. 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 Cardio/Vascular: Yes: AFIB, CHF, HTN, Hyperlipdemia, Other (Atrial flutter s/p ablation, PAD) Pulmonary: Yes: COPD Renal/: Yes: Renal Inusuff (stage 4), Other (Overactive Bladder) Psych: Yes: Depression Endocrine: Yes: Diabetes Mellitus (initially on oral agents, now on insulin) - Past Surgical History Past Surgical History: Yes: Colonoscopy (polyps a few years ago), Hysterectomy ( fibroids), Tubal Ligation, Upper Endoscopy (neg 1+ yrs ago) - Alcohol/Substance Use Hx Alcohol Use: No - Smoking History Smoking history: Never smoked Have you smoked in the past 12 months: No Aproximately how many cigarettes per day: 1 If you are a former smoker, when did you quit?: 1 year ago - Social History Usual Living Arrangement: With Child ADL: Family Assistance History of Recent Travel: No Home Medications - Allergies Allergies/Adverse Reactions: Allergies Allergy/AdvReac Type Severity Reaction Status Date / Time No Known Allergies Allergy Verified 09/07/18 12:50 - Home Medications Home Medications: Ambulatory Orders Albuterol 0.083% Nebulizer Norma [Ventolin 0.083% Nebulizer Soln -] 1 amp NEB Q4H PRN #0 amp 09/15/18 Albuterol 2.5/Ipratropium 0.5 [Duoneb -] 1 amp NEB QID PRN 30 Days amp Budesonide/Formeterol Fumarate [SYMBICORT 160/4.5mcg -] 2 puff IH BID inhaler 09/15/18 Folic Acid - 1 mg PO DAILY tablet 09/15/18 Furosemide [Lasix -] 40 mg PO DAILY #30 tablet 09/15/18 Insulin (Levemir) [Levemir Vial] 10 units SQ DAILY@0800 #3 ml 09/15/18 Insulin (Levemir) [Levemir Vial] 24 units SQ HS #6 ml 09/15/18 Labetalol HCl [Normodyne -] 200 mg PO BID #60 tablet 09/15/18 Sodium Bicarbonate - 650 mg PO BID tablet 09/15/18 Warfarin Sodium [Coumadin] 7.5 mg PO HS #30 tablet 09/15/18 Hydralazine HCl 100 mg PO TID #90 tablet 09/16/18 Amlodipine Besylate [Norvasc -] 10 mg PO DAILY 10/08/18 Calcium Acetate 667 mg PO TID 10/08/18 Cholecalciferol (Vitamin D3) [Vitamin D3] 5,000 unit PO DAILY 10/08/18 Insulin Sliding Scale [Novolog Vial Sliding Scale -] 1 unit SQ ASDIR PRN Pantoprazole Sodium 40 mg PO DAILY 10/08/18 Diltiazem HCl [Diltiazem 24Hr ER (Cd)] 120 mg PO DAILY 10/09/18 Family Disease History - Family Disease History Family Disease History: Diabetes: Grandparent, Mother, Sister (lung cancer), [place] : Sister Nephrology Consult - Height Height: 5 ft 7 in - Weight Weight: 227 lb 12.8 oz - BMI Body Mass Index (BMI): 35.6 - Lab Results CBC,BMP: CBC, BMP 10/09/18 05:35 10/09/18 05:35 Anion Gap: Anion Gap Anion Gap 9 MMOL/L (8-16) 10/09/18 05:35 - Physical Examination Vital Signs: Vital Signs Temperature 98.2 F 10/09/18 17:00 Pulse Rate 70 10/09/18 17:00 Respiratory Rate 18 10/09/18 17:00 Blood Pressure 155/56 L 10/09/18 17:00 O2 Sat by Pulse Oximetry (%) 93 L 10/09/18 09:00 Assessment/Plan 77 [place] ckd with azotemia at baseline on admission admitted with acute altered mental status slower speech and leg edema recent hosp for aspiration pneumonitis NIDDM, COPD, Afib (s/p ablation, warfarin), CKD stage 4, HTN, CHF and LLE DVT,
[2018-10-10] MEDS: INSULIN SLIDING SCALE (NOVOLOG) 1 VIAL SQ SCH ×4 (06:14→22:31)
[2018-10-10] MEDS: hydrALAZINE HCL 50 MG TABLET (FP) PO SCH ×3 (06:14→22:30)
--- NOTE | 2018-10-10 07:59 | PN ---
Physical Exam: SUBJECTIVE: Patient seen and examined, still complains of MATT edema with no respiratory complaints OBJECTIVE: Vital Signs Period Temp Pulse Resp BP Sys/Renee Pulse Ox Last 24 Hr 97.7 F-98.6 F 65-76 18-20 136-170/55-80 93-98 She has O on but asked the nurse to remove it. GENERAL: The patient is awake, alert, and fully oriented, in no acute distress. HEAD: Normal with no signs of trauma. EYES: PERRL, extraocular movements intact, sclera anicteric, conjunctiva clear. No ptosis. ENT: Ears normal, nares patent, oropharynx clear without exudates, moist mucous membranes. NECK: Trachea midline, full range of motion, supple. LUNGS: Breath sounds equal, clear to auscultation bilaterally, no wheezes, no crackles, no accessory muscle use. HEART: Regular rate and rhythm, S1, S2 without murmur, rub or gallop. ABDOMEN: Soft, nontender, nondistended, normoactive bowel sounds, no guarding, no rebound, no hepatosplenomegaly, no masses. EXTREMITIES: 2+ pulses, warm, well-perfused, has 1+ pitting edema, NEUROLOGICAL: Cranial nerves II through XII grossly intact. Normal speech, gait not observed. PSYCH: Normal mood, normal affect. SKIN: Warm, dry, normal turgor, no rashes or lesions noted Laboratory Results - last 24 hr 10/09/18 10/09/18 10/09/18 05:35 05:35 11:50 WBC 4.0 RBC 2.38 L Hgb 7.8 L Hct 23.9 L MCV 100.5 H MCH 32.6 MCHC 32.4 RDW 16.6 H Plt Count 225 MPV 9.0 Absolute Neuts (auto) 1.7 Neutrophils % 41.7 L Lymphocytes % 45.4 H Monocytes % 10.2 Eosinophils % 1.2 Basophils % 1.5 Nucleated RBC % 0 Sodium 142 Potassium 4.1 Chloride 106 Carbon Dioxide 27 Anion Gap 9 BUN 61.2 H Creatinine 3.6 H Est GFR (CKD-EPI)AfAm 13.19 Est GFR (CKD-EPI)NonAf 11.38 POC Glucometer 127 Random Glucose 111 H Calcium 8.3 L Phosphorus 3.8 Magnesium 1.9 Total Bilirubin 0.3 AST 12 L ALT 18 Alkaline Phosphatase 47 Total Protein 5.3 L Albumin 2.7 L 10/09/18 10/09/18 10/10/18 17:02 20:31 06:11 BUN Creatinine Est GFR (CKD-EPI)AfAm Est GFR (CKD-EPI)NonAf POC Glucometer 83 85 133 Random Glucose Calcium Phosphorus Magnesium Total Bilirubin AST ALT Alkaline Phosphatase Total Protein Albumin Active Medications Generic Name Dose Route Start Last Admin Trade Name Freq PRN Reason Stop Dose Admin Albuterol Sulfate 1 amp 10/08/18 21:22 Ventolin 0.083% Nebulizer Soln - NEB Q4H PRN SHORT OF BREATH/WHEEZING Albuterol/Ipratropium 1 amp 10/08/18 21:22 10/09/18 20:45 Duoneb - NEB 1 amp Q6H PRN Administration SHORTNESS OF BREATH Amlodipine Besylate 10 mg 10/09/18 10:00 10/09/18 09:04 Norvasc - PO 10 mg DAILY ERMA Administration Budesonide/Formoterol Fumarate 2 puff 10/08/18 22:00 10/09/18 21:49 Symbicort 160/4.5mcg - IH 2 puff BID ERMA Administration Calcium Acetate 667 mg 10/09/18 08:00 10/09/18 17:56 Phoslo - PO 667 mg TIDCM ERMA Administration Cholecalciferol 5,000 unit 10/09/18 10:00 10/09/18 09:07 Vitamin D3 - PO 5,000 unit DAILY ERMA Administration Furosemide 60 mg 10/10/18 10:00 Lasix Injection - IVPUSH DAILY [facility] Hydralazine HCl 100 mg 10/08/18 22:00 10/10/18 06:14 Apresoline - PO 100 mg TID ERMA Administration Insulin Aspart 1 vial 10/09/18 07:00 10/10/18 06:14 Novolog Vial Sliding Scale - SQ Not Given ACHS [facility] Protocol Insulin Detemir 10 units 10/09/18 08:00 10/09/18 08:12 Levemir Vial SQ 10 units DAILY@0800 ERMA Administration Insulin Detemir 24 units 10/08/18 22:00 10/09/18 22:47 Levemir Vial SQ Not Given HS [facility] Labetalol HCl 200 mg 10/08/18 22:00 10/09/18 21:49 Normodyne - PO 200 mg BID ERMA Administration Pantoprazole Sodium 40 mg 10/09/18 10:00 10/09/18 09:04 Protonix - PO 40 mg DAILY ERMA Administration Sodium Bicarbonate 650 mg 10/08/18 22:00 10/09/18 21:49 Sodium Bicarbonate - PO 650 mg BID ERMA Administration Warfarin Sodium 7.5 mg 10/09/18 18:00 10/09/18 17:56 Coumadin - PO 7.5 mg DAILY@1800 ERMA Administration ASSESSMENT/PLAN: 77 y/o F w CKD4, DM, HTN, COPD, Afib. HFpEF [facility] for increasing lethargy, increased MATT edema and Po intake due to bad appetite, She was found to have Bun in 90s, . found to have volume. now improved with increased diuretics. # Heart Failure w Preserved EF - IV lasix - C/W blood pressure control has lost a lot of weight since admission as she has been responding well to the new dose of lasix. most likely volume overload in the setting of worsening CKD. #afib: rate well controlled - On warfarin # Chronic anemia: normycitc, normochromic most likely in the setting of CKD will need to be evaluated by nephro for need for Epo injection. - Type and cross #CKD4: stable at this time, is on bicarb at home and lasix will need to be evaluated by renal for need for phosphate bounders. #HTN - On norvasc 10 QD, labetalol 100 BID, and hydralazine 100mg TID. She has diastolic hypotension will discuss with cardiology regards the possibility of changing her medication regimen #F/E/N - No standing fluids - Monitor electrolytes - Diabetic diet # DVT prophylaxis - h/o LLE DVT - Lovenox # Dispo - Not known at the present time but daughter, Mike Lorenzo is noted to be HCP by pt's grand-daughter Alejandra Lorenzo. ([phone]) - Call during day hours to determine DNR/DNI status Visit type - Emergency Visit Emergency Visit: Yes ED Registration Date: 10/08/18 Care time: The patient presented to the Emergency Department on the above date and was hospitalized for further evaluation of their emergent condition. - New Patient This patient is new to me today: Yes Date on this admission: 10/10/18 - Critical Care Critical Care patient: No - Discharge Referral Referred to [facility] Med P.C.: No
[2018-10-10] MEDS: INSULIN (LEVEMIR) 100 UNITS/ML UNITS SQ SCH ×2 (08:18→22:31)
[2018-10-10] MEDS: CALCIUM ACETATE 667 MG CAPSULE (FP) PO SCH ×3 (08:19→17:33)
[2018-10-10] MEDS: PANTOPRAZOLE 40 MG TABLET (FP) PO SCH (09:02)
[2018-10-10] MEDS: SODIUM BICARBONATE 650 MG TABLET PO SCH ×2 (09:02→22:29)
[2018-10-10] MEDS: CHOLECALCIFEROL (VIT D3) 1,000 UNIT (25 MCG) TABLET PO SCH (09:02)
[2018-10-10] MEDS: amLODIPine BESYLATE 10 MG TABLET (FP) PO SCH (09:02)
[2018-10-10] MEDS: LABETALOL HCL 200 MG TABLET (FP) PO SCH ×2 (09:02→22:29)
[2018-10-10] MEDS: FUROSEMIDE 40 MG/4 ML INJECTABLE VIAL IVPUSH SCH (09:03)
[2018-10-10] MEDS: BUDESONIDE/FORMETEROL FUMARATE 160/4.5 mcg INHALER IH SCH ×2 (09:04→22:30)
[2018-10-10] MEDS: WARFARIN NA 7.5 MG TABLET (FP) PO SCH (17:17)
--- NOTE | 2018-10-10 21:15 | PN ---
Progress Note (short form) - Note Progress Note: 77 [place] ckd with azotemia at baseline on admission admitted with acute altered mental status slower speech and leg edema recent hosp for aspiration pneumonitis NIDDM, COPD, Afib (s/p ablation, warfarin), CKD stage 4, HTN, CHF and LLE DVT, Current Medications Albuterol Sulfate (Ventolin 0.083% Nebulizer Soln -) 1 amp NEB Q4H PRN PRN Reason: SHORT OF BREATH/WHEEZING Albuterol/Ipratropium (Duoneb -) 1 amp NEB Q6H PRN PRN Reason: SHORTNESS OF BREATH Last Admin: 10/09/18 20:45 Dose: 1 amp Amlodipine Besylate (Norvasc -) 10 mg PO DAILY [facility] Last Admin: 10/10/18 09:02 Dose: 10 mg Budesonide/Formoterol Fumarate (Symbicort 160/4.5mcg -) 2 puff IH BID [facility] Last Admin: 10/10/18 09:04 Dose: 2 puff Calcium Acetate (Phoslo -) 667 mg PO TIDCM [facility] Last Admin: 10/10/18 17:33 Dose: 667 mg Cholecalciferol (Vitamin D3 -) 5,000 unit PO DAILY [facility] Last Admin: 10/10/18 09:02 Dose: 5,000 unit Furosemide (Lasix Injection -) 60 mg IVPUSH DAILY [facility] Last Admin: 10/10/18 09:03 Dose: 60 mg Hydralazine HCl (Apresoline -) 100 mg PO TID [facility] Last Admin: 10/10/18 14:57 Dose: 100 mg Insulin Aspart (Novolog Vial Sliding Scale -) 1 vial SQ ACHS [facility]; Protocol Last Admin: 10/10/18 17:15 Dose: 2 units Insulin Detemir (Levemir Vial) 10 units SQ DAILY@0800 [facility] Last Admin: 10/10/18 08:18 Dose: 10 units Insulin Detemir (Levemir Vial) 24 units SQ HS [facility] Last Admin: 10/09/18 22:47 Dose: Not Given Labetalol HCl (Normodyne -) 200 mg PO BID [facility] Last Admin: 10/10/18 09:02 Dose: 200 mg Pantoprazole Sodium (Protonix -) 40 mg PO DAILY [facility] Last Admin: 10/10/18 09:02 Dose: 40 mg Sodium Bicarbonate (Sodium Bicarbonate -) 650 mg PO BID [facility] Last Admin: 10/10/18 09:02 Dose: 650 mg Warfarin Sodium (Coumadin -) 7.5 mg PO DAILY@1800 [facility] Last Admin: 10/10/18 17:17 Dose: 7.5 mg Last Vital Signs Temp Pulse Resp BP Pulse Ox 98.5 F 69 20 146/54 L 98 10/10/18 17:00 10/10/18 17:00 10/10/18 17:00 10/10/18 17:00 10/10/18 09:00 Lungs clear Heart reg abd soft nontender Ext no edema CBC, BMP 10/09/18 05:35 10/09/18 05:35 IMP ckd stable Plan- continue hydration and monitor labs
[2018-10-11] MEDS: hydrALAZINE HCL 50 MG TABLET (FP) PO SCH ×3 (06:18→22:04)
[2018-10-11] MEDS: INSULIN SLIDING SCALE (NOVOLOG) 1 VIAL SQ SCH ×4 (06:19→22:04)
--- NOTE | 2018-10-11 07:46 | PN ---
Teaching Attending Note Name of Resident: Sridhar Monk ATTENDING PHYSICIAN STATEMENT I saw and evaluated the patient. I reviewed the resident's note and discussed the case with the resident. I agree with the resident's findings and plan as documented. 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; AOX3 non focal CBC, BMP 10/09/18 05:35 10/09/18 05:35 Active Medications Albuterol Sulfate (Ventolin 0.083% Nebulizer Soln -) 1 amp NEB Q4H PRN PRN Reason: SHORT OF BREATH/WHEEZING Albuterol/Ipratropium (Duoneb -) 1 amp NEB Q6H PRN PRN Reason: SHORTNESS OF BREATH Last Admin: 10/11/18 08:18 Dose: 1 amp Amlodipine Besylate (Norvasc -) 10 mg PO DAILY [facility] Last Admin: 10/11/18 11:44 Dose: 10 mg Budesonide/Formoterol Fumarate (Symbicort 160/4.5mcg -) 2 puff IH BID [facility] Last Admin: 10/11/18 11:44 Dose: 2 puff Calcium Acetate (Phoslo -) 667 mg PO TIDCM [facility] Last Admin: 10/11/18 11:43 Dose: 667 mg Cholecalciferol (Vitamin D3 -) 5,000 unit PO DAILY [facility] Last Admin: 10/11/18 11:45 Dose: 5,000 unit Darbepoetin Leonel (Aranesp -) 40 mcg SQ ONCE ONE Stop: 10/11/18 12:46 Furosemide (Lasix Injection -) 80 mg IVPUSH DAILY [facility] Hydralazine HCl (Apresoline -) 100 mg PO TID [facility] Last Admin: 10/11/18 06:18 Dose: 100 mg Insulin Aspart (Novolog Vial Sliding Scale -) 1 vial SQ [facility]; Protocol Last Admin: 10/11/18 06:19 Dose: Not Given Insulin Detemir (Levemir Vial) 10 units SQ DAILY@0800 [facility] Last Admin: 10/11/18 08:42 Dose: Not Given Insulin Detemir (Levemir Vial) 24 units SQ HS [facility] Last Admin: 10/10/18 22:31 Dose: Not Given Labetalol HCl (Normodyne -) 200 mg PO BID [facility] Last Admin: 10/11/18 11:43 Dose: 200 mg Pantoprazole Sodium (Protonix -) 40 mg PO DAILY [facility] Last Admin: 10/11/18 11:44 Dose: 40 mg Sodium Bicarbonate (Sodium Bicarbonate -) 650 mg PO BID [facility] Last Admin: 10/11/18 11:44 Dose: 650 mg Warfarin Sodium (Coumadin -) 7.5 mg PO DAILY@1800 [facility] Last Admin: 10/10/18 17:17 Dose: 7.5 mg ASSESSMENT AND PLAN:77 yo F wiht pMhx of obesity, HTN, T2DM, COPD on home nightly CPAP, CKD stage IV-5 (b/l SCr: 3.4-3.6) - has previously declared wish not undergo dialysis, reaffirmed at this visit, Afib & HFpEF with L side diastolic dysfunction presents from [facility] for AMS & lethargy. Problem List - Problems (1) Lethargy Assessment/Plan: unknown etiology except possibility of ? UTI as urine culture grrw Pseudomionas but UA shows -ve Nitrite, WBC and LE possibality of contamination , rpt clean cathch sample mean time can be treated with Po Levofloxacin 250 mg q 48 hrs. and observe clinically. Code(s): R53.83 - OTHER FATIGUE (2) Acute on chronic renal insufficiency Assessment/Plan: Base line CKD but renal functions improved since last Dc on 09/16/2018 F/U renal recommondation today IV Lasix from tomorrow [facility] be Dc on PO Toresamide cont NaHCO3 Code(s): N28.9 - DISORDER OF KIDNEY AND URETER, UNSPECIFIED; N18.9 - CHRONIC KIDNEY DISEASE, UNSPECIFIED (3) CHF (congestive heart failure) Assessment/Plan: SDiasdtolic Dysfunction at present compensated cont all home meds Code(s): I50.9 - HEART FAILURE, UNSPECIFIED Qualifiers: Heart failure type: diastolic (4) Anemia Assessment/Plan: H/h stable F/U Irn Panel Code(s): D64.9 - ANEMIA, UNSPECIFIED Qualifiers: Chronic kidney disease stage: stage 4 (severe) (5) Afib Assessment/Plan: at present in NSR last night a short spell 4 beasts VT now in NSR l;ast ECHO normal EF,, rate controlled cont AC Coumadin 7.5 daily INR 1.92 Code(s): I48.91 - UNSPECIFIED ATRIAL FIBRILLATION Qualifiers: Atrial fibrillation type: paroxysmal Qualified Code(s): I48.0 - Paroxysmal atrial fibrillation (6) CAD (coronary artery disease) Assessment/Plan: Stable no acuter ST t changes Code(s): I25.10 - ATHSCL HEART DISEASE OF [place] CORONARY ARTERY W/O ANG PCTRS (7) Hypertension Assessment/Plan: Well controlled Code(s): I10 - ESSENTIAL (PRIMARY) HYPERTENSION Qualifiers: Hypertension type: essential hypertension Qualified Code(s): I10 - Essential (primary) hypertension (8) Type 2 diabetes mellitus Assessment/Plan: Optimize Glycemic control Code(s): E11.9 - TYPE 2 DIABETES MELLITUS WITHOUT COMPLICATIONS Qualifiers: Diabetes mellitus complication status: with circulatory complication (9) Obstructive sleep apnea Assessment/Plan: On CPAP at publicity person O2 sat at resting. Code(s): G47.33 - OBSTRUCTIVE SLEEP APNEA (ADULT) (PEDIATRIC)
[2018-10-11] MEDS: ALBUTEROL SO4 2.5/IPRATROPIUM 0.5 INH SOL 3 ML VIAL.NEB. NEB PRN (08:18)
[2018-10-11 08:36] LABS: ALBUMIN 2.7 g/dl (3.4-5.0); BILIRUBIN,TOTAL 0.4 mg/dL (0.2-1); BLOOD UREA NITROGEN 55.9 mg/dL (7-18); CALCIUM 8.4 mg/dL (8.5-10.1); CREATININE 3.7 mg/dL (0.55-1.3); TOT PROT 5.2 g/dl (6.4-8.2)
[2018-10-11] MEDS: INSULIN (LEVEMIR) 100 UNITS/ML UNITS SQ SCH ×2 (08:42→22:04)
[2018-10-11] MEDS: FUROSEMIDE 40 MG/4 ML INJECTABLE VIAL IVPUSH SCH (10:00)
[2018-10-11 11:30] LABS: INR 1.92 (0.83-1.09); PROTHROMBIN TIME (PATIENT) 22.8 SEC (9.7-13.0)
[2018-10-11] MEDS: CALCIUM ACETATE 667 MG CAPSULE (FP) PO SCH ×3 (11:42→18:20)
[2018-10-11] MEDS: LABETALOL HCL 200 MG TABLET (FP) PO SCH ×2 (11:43→22:04)
[2018-10-11] MEDS: amLODIPine BESYLATE 10 MG TABLET (FP) PO SCH (11:44)
[2018-10-11] MEDS: BUDESONIDE/FORMETEROL FUMARATE 160/4.5 mcg INHALER IH SCH ×2 (11:44→22:43)
[2018-10-11] MEDS: PANTOPRAZOLE 40 MG TABLET (FP) PO SCH (11:44)
[2018-10-11] MEDS: SODIUM BICARBONATE 650 MG TABLET PO SCH ×2 (11:44→22:03)
[2018-10-11] MEDS: CHOLECALCIFEROL (VIT D3) 1,000 UNIT (25 MCG) TABLET PO SCH (11:45)
--- NOTE | 2018-10-11 12:07 | PN ---
Progress Note (short form) - Note Progress Note: Renal follow up for CKD Pt seen and examined at the bedside awake and alert denies any confusion, lethargy or weakness has sob but not worse then baseline has leg swelling but is improved now no chest pain or pressure no metallic taste in the mouth, no arm or leg weakness making urine Vital Signs Temperature 99 F 10/11/18 09:00 Pulse Rate 72 10/11/18 11:37 Respiratory Rate 18 10/11/18 09:00 Blood Pressure 142/54 L 10/11/18 09:00 O2 Sat by Pulse Oximetry (%) 96 10/11/18 11:37 Intake & Output 10/08/18 10/09/18 10/10/18 10/11/18 23:59 23:59 23:59 23:59 Intake Total 140 875 130 Balance 140 875 130 Weight 137.892 kg 103.328 kg 100.516 kg NAD awake and alert RRR Fine crackles through the lung field + edema in LE CBC, BMP 10/09/18 05:35 10/11/18 06:44 Current Medications Albuterol Sulfate (Ventolin 0.083% Nebulizer Soln -) 1 amp NEB Q4H PRN PRN Reason: SHORT OF BREATH/WHEEZING Albuterol/Ipratropium (Duoneb -) 1 amp NEB Q6H PRN PRN Reason: SHORTNESS OF BREATH Last Admin: 10/11/18 08:18 Dose: 1 amp Amlodipine Besylate (Norvasc -) 10 mg PO DAILY [facility] Last Admin: 10/11/18 11:44 Dose: 10 mg Budesonide/Formoterol Fumarate (Symbicort 160/4.5mcg -) 2 puff IH BID [facility] Last Admin: 10/11/18 11:44 Dose: 2 puff Calcium Acetate (Phoslo -) 667 mg PO TIDCM [facility] Last Admin: 10/11/18 11:43 Dose: 667 mg Cholecalciferol (Vitamin D3 -) 5,000 unit PO DAILY [facility] Last Admin: 10/11/18 11:45 Dose: 5,000 unit Furosemide (Lasix Injection -) 80 mg IVPUSH DAILY [facility] Hydralazine HCl (Apresoline -) 100 mg PO TID [facility] Last Admin: 10/11/18 06:18 Dose: 100 mg Insulin Aspart (Novolog Vial Sliding Scale -) 1 vial SQ ACHS [facility]; Protocol Last Admin: 10/11/18 06:19 Dose: Not Given Insulin Detemir (Levemir Vial) 10 units SQ DAILY@0800 [facility] Last Admin: 10/11/18 08:42 Dose: Not Given Insulin Detemir (Levemir Vial) 24 units SQ HS [facility] Last Admin: 10/10/18 22:31 Dose: Not Given Labetalol HCl (Normodyne -) 200 mg PO BID [facility] Last Admin: 10/11/18 11:43 Dose: 200 mg Pantoprazole Sodium (Protonix -) 40 mg PO DAILY [facility] Last Admin: 10/11/18 11:44 Dose: 40 mg Sodium Bicarbonate (Sodium Bicarbonate -) 650 mg PO BID [facility] Last Admin: 10/11/18 11:44 Dose: 650 mg Warfarin Sodium (Coumadin -) 7.5 mg PO DAILY@1800 [facility] Last Admin: 10/10/18 17:17 Dose: 7.5 mg 77 year old woman with history of 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 #CKD stage 4/5, renal function stable #CHF with pulmonary congestion #COPD/Chronic dyspnea #LE edema #Hypertension #Acute on Chronic anemia Renal function is improved from last admission during which time pt had JOSE no emergent indication for IMPLEMENTATION ENGINEER at this time and pt still refusing dialysis as a treatment option continue IV Lasix for now but plan to transition to oral torsemide on discharge Give Aranesp SC for CKD related anemia Repeat iron studies, last admission iron saturation was very high continue Nebs per pulmonary Thank you Tylor Funez DO
[2018-10-11] MEDS ORDERED: Darbepoetin Alfa in Polysorbat 40 MCG/0.4 DISP.SYRIN SQ ONE (12:45)
--- NOTE | 2018-10-11 16:53 | PN ---
Physical Exam: SUBJECTIVE: Patient seen and examined at bedside today. No acute events. OBJECTIVE: Vital Signs Period Temp Pulse Resp BP Sys/Renee Pulse Ox Last 24 Hr 98.4 F-99.1 F 69-79 18-20 135-149/46-56 96-98 GENERAL: The patient is awake, alert, and fully oriented, in no acute distress. HEAD: Normal with no signs of trauma. NECK: supple. LUNGS: Breath sounds equal, crackles b/l. HEART: Regular rate and rhythm, S1, S2 without murmur, rub or gallop. ABDOMEN: Soft, nontender, nondistended, normoactive bowel sounds, no guarding, no rebound. EXTREMITIES: warm, well-perfused, no edema. NEUROLOGICAL: Cranial nerves II through XII grossly intact. Normal speech, gait not observed. PSYCH: Normal mood, normal affect. SKIN: Warm, dry, no rashes or lesions noted Laboratory Results - last 24 hr 10/10/18 10/10/18 10/11/18 17:08 22:17 06:15 PT with INR INR Sodium Potassium Chloride Carbon Dioxide Anion Gap BUN Creatinine Est GFR (CKD-EPI)AfAm Est GFR (CKD-EPI)NonAf POC Glucometer 199 70 87 Random Glucose Calcium Total Bilirubin AST ALT Alkaline Phosphatase Total Protein Albumin 10/11/18 10/11/18 10/11/18 06:44 06:44 13:46 PT with INR 22.80 H INR 1.92 H Sodium 144 Potassium 4.0 Chloride 105 Carbon Dioxide 30 Anion Gap 8 BUN 55.9 H Creatinine 3.7 H Est GFR (CKD-EPI)AfAm 12.76 Est GFR (CKD-EPI)NonAf 11.01 POC Glucometer 173 Random Glucose 89 Calcium 8.4 L Total Bilirubin 0.4 AST 10 L ALT 16 Alkaline Phosphatase 43 L Total Protein 5.2 L Albumin 2.7 L Active Medications Generic Name Dose Route Start Last Admin Trade Name Freq PRN Reason Stop Dose Admin Albuterol Sulfate 1 amp 10/08/18 21:22 Ventolin 0.083% Nebulizer Soln - NEB Q4H PRN SHORT OF BREATH/WHEEZING Albuterol/Ipratropium 1 amp 10/08/18 21:22 10/11/18 08:18 Duoneb - NEB 1 amp Q6H PRN Administration SHORTNESS OF BREATH Amlodipine Besylate 10 mg 10/09/18 10:00 10/11/18 11:44 Norvasc - PO 10 mg DAILY ERMA Administration Budesonide/Formoterol Fumarate 2 puff 10/08/18 22:00 10/11/18 11:44 Symbicort 160/4.5mcg - IH 2 puff BID ERMA Administration Calcium Acetate 667 mg 10/09/18 08:00 10/11/18 11:43 Phoslo - PO 667 mg TIDCM ERMA Administration Cholecalciferol 5,000 unit 10/09/18 10:00 10/11/18 11:45 Vitamin D3 - PO 5,000 unit DAILY ERMA Administration Furosemide 80 mg 10/11/18 11:00 Lasix Injection - IVPUSH DAILY [facility] Hydralazine HCl 100 mg 10/08/18 22:00 10/11/18 13:54 Apresoline - PO 100 mg TID ERMA Administration Insulin Aspart 1 vial 10/09/18 07:00 10/11/18 13:47 Novolog Vial Sliding Scale - SQ 2 units ACHS [facility] Administration Protocol Insulin Detemir 10 units 10/09/18 08:00 10/11/18 08:42 Levemir Vial SQ Not Given DAILY@0800 [facility] Insulin Detemir 24 units 10/08/18 22:00 10/10/18 22:31 Levemir Vial SQ Not Given HS [facility] Labetalol HCl 200 mg 10/08/18 22:00 10/11/18 11:43 Normodyne - PO 200 mg BID ERMA Administration Pantoprazole Sodium 40 mg 10/09/18 10:00 10/11/18 11:44 Protonix - PO 40 mg DAILY ERMA Administration Sodium Bicarbonate 650 mg 10/08/18 22:00 10/11/18 11:44 Sodium Bicarbonate - PO 650 mg BID ERMA Administration Warfarin Sodium 7.5 mg 10/09/18 18:00 10/10/18 17:17 Coumadin - PO 7.5 mg DAILY@1800 [facility] Administration ASSESSMENT/PLAN: Pt is a 77 yo F wiht pMhx of obesity, HTN, DM, COPD on home nightly CPAP, CKD stage IV-5 (b/l SCr: 3.4-3.6) presented with reported mentation changes and lethargy in the presence of anasarca. #COPD/TREVON vs Pickwickian syndrome : - slight metabolic alkalosis on ABG, no hypoxia or hypercarbia of note. - c/w symbicort daily & duonebs as needed, resume nightly CPAP with settings of 12 IPAP, EPAP- 5 40%O2, Rate-18. - pt off NC satting fine off O2. #AFib: - presently not tachycardic, normal sinus rhythm. - c/w labetalol & warfarin nightly - target INR 2-3, - rpt INR continues to be subtherapeutic, continue warfarin 7.5 HS, pt is low risk for coagulation. #CKD stage V - Dr. 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 - monitor UOP, daily weights - no jarvis at this time #HTN/ CHF - less overloaded today - no longer has anasarca - lasix 80 IV daily. - c/w amlodipine, labetalol, hydralazine as prescribed at home DVT PPx: pt on systemic AC #FEN: - Continue to monitor lytes - continue no fluids. - Low sodium, low phos, Low potassium & moderate carb diet. Visit type - Emergency Visit Emergency Visit: Yes ED Registration Date: 10/08/18 Care time: The patient presented to the Emergency Department on the above date and was hospitalized for further evaluation of their emergent condition. - New Patient This patient is new to me today: No - Critical Care Critical Care patient: No - Discharge Referral Referred to [facility] No ATTENDING PHYSICIAN STATEMENT I saw and evaluated the patient. I reviewed the resident's note and discussed the case with the resident. I agree with the resident's findings and plan as documented. SUBJECTIVE: OBJECTIVE: ASSESSMENT AND PLAN:
[2018-10-11] MEDS: WARFARIN NA 7.5 MG TABLET (FP) PO SCH (18:20)
[2018-10-11] MEDS ORDERED: INSULIN (NOVOLOG) ASPART 100 UNITS/ML 10ML VIAL ONE (18:36)
[2018-10-12] MEDS ORDERED: INSULIN (LEVEMIR) 100 UNITS/ML UNITS SQ ONE (02:19)
[2018-10-12] MEDS ORDERED: DEXTROSE 50%-WATER - 25 GM/50 ML VIAL IVPUSH ONE ×2 (05:56→08:15)
[2018-10-12] MEDS ORDERED: DEXTROSE 50%-WATER 25 GM/50 ML DISP.SYRIN ONE ×2 (05:59→08:15)
[2018-10-12] MEDS: hydrALAZINE HCL 50 MG TABLET (FP) PO SCH ×3 (06:32→21:48)
[2018-10-12 06:52] LABS: BASO % 0.7 % (0-2.0); EOS % 0.4 % (0-4.5); HEMATOCRIT 25.4 % (32.4-45.2); HEMOGLOBIN 8.4 GM/dL (10.7-15.3); LYMPH % 41.2 % (8-40); MCH 32.4 pg (25.7-33.7); MEAN CELL VOLUME 98.1 fl (80-96); MEAN PLT VOLUME 8.9 fl (7.5-11.1); MONO % 12.2 % (3.8-10.2); NEUT % 45.5 % (42.8-82.8); PLATELET COUNT 252 K/MM3 (134-434); RBC 2.59 M/mm3 (3.60-5.2); RDW 15.9 % (11.6-15.6); WHITE BLOOD COUNT 6.4 K/mm3 (4.0-10.0)
[2018-10-12] MEDS: INSULIN SLIDING SCALE (NOVOLOG) 1 VIAL SQ SCH ×4 (07:07→22:04)
--- NOTE | 2018-10-12 07:25 | PN ---
Teaching Attending Note Name of Resident: Sridhar Monk ATTENDING PHYSICIAN STATEMENT I saw and evaluated the patient. I reviewed the resident's note and discussed the case with the resident. I agree with the resident's findings and plan as documented. 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 Active Medications Active Medications Albuterol Sulfate (Ventolin 0.083% Nebulizer Soln -) 1 amp NEB Q4H PRN PRN Reason: SHORT OF BREATH/WHEEZING Albuterol/Ipratropium (Duoneb -) 1 amp NEB Q6H PRN PRN Reason: SHORTNESS OF BREATH Last Admin: 10/12/18 08:25 Dose: 1 amp Amlodipine Besylate (Norvasc -) 10 mg PO DAILY [facility] Last Admin: 10/12/18 10:24 Dose: 10 mg Budesonide/Formoterol Fumarate (Symbicort 160/4.5mcg -) 2 puff IH BID [facility] Last Admin: 10/12/18 10:29 Dose: 2 puff Calcium Acetate (Phoslo -) 667 mg PO TIDCM [facility] Last Admin: 10/12/18 12:23 Dose: 667 mg Cholecalciferol (Vitamin D3 -) 5,000 unit PO DAILY [facility] Last Admin: 10/12/18 10:24 Dose: 5,000 unit Furosemide (Lasix Injection -) 80 mg IVPUSH DAILY [facility] Last Admin: 10/12/18 10:28 Dose: 80 mg Hydralazine HCl (Apresoline -) 100 mg PO TID [facility] Last Admin: 10/12/18 06:32 Dose: 100 mg Insulin Aspart (Novolog Vial Sliding Scale -) 1 vial SQ ACHS [facility]; Protocol Last Admin: 10/12/18 12:03 Dose: Not Given Insulin Detemir (Levemir Vial) 10 units SQ DAILY@0800 [facility] Last Admin: 10/12/18 08:29 Dose: Not Given Insulin Detemir (Levemir Vial) 24 units SQ HS [facility] Last Admin: 10/11/18 22:04 Dose: 24 units Labetalol HCl (Normodyne -) 200 mg PO BID [facility] Last Admin: 10/12/18 10:24 Dose: 200 mg Pantoprazole Sodium (Protonix -) 40 mg PO DAILY [facility] Last Admin: 10/12/18 10:24 Dose: 40 mg Sodium Bicarbonate (Sodium Bicarbonate -) 650 mg PO BID [facility] Last Admin: 10/12/18 10:25 Dose: 650 mg Warfarin Sodium (Coumadin -) 7.5 mg PO DAILY@1800 [facility] Last Admin: 10/11/18 18:20 Dose: 7.5 mg ASSESSMENT AND PLAN:77 yo F wiht pMhx of obesity, HTN, T2DM, COPD on home nightly CPAP, CKD stage IV-5 (b/l SCr: 3.4-3.6) - has previously declared wish not undergo dialysis, reaffirmed at this visit, Afib & HFpEF with L side diastolic dysfunction presents from [facility] for AMS & lethargy. Problem List - Problems (1) Lethargy Assessment/Plan: Improved since yesterday CT haed no acute changes, Code(s): R53.83 - OTHER FATIGUE (2) Acute on chronic renal insufficiency Assessment/Plan: Base line CKD but renal functions improved since last Dc on 09/16/2018 F/U renal recommondation today IV Lasix from tomorrow cab be Dc on PO Toresamide cont NaHCO3 Code(s): N28.9 - DISORDER OF KIDNEY AND URETER, UNSPECIFIED; N18.9 - CHRONIC KIDNEY DISEASE, UNSPECIFIED (3) CHF (congestive heart failure) Assessment/Plan: SDiasdtolic Dysfunction at present compensated cont all home meds Code(s): I50.9 - HEART FAILURE, UNSPECIFIED Qualifiers: Heart failure type: diastolic (4) Anemia Assessment/Plan: H/h stable F/U Irn Panel Code(s): D64.9 - ANEMIA, UNSPECIFIED Qualifiers: Chronic kidney disease stage: stage 4 (severe) (5) Afib Assessment/Plan: at present in NSR last night a short spell 4 beasts VT now in NSR l;ast ECHO normal EF,, rate controlled cont AC Coumadin 7.5 daily INR 1.92 Code(s): I48.91 - UNSPECIFIED ATRIAL FIBRILLATION Qualifiers: Atrial fibrillation type: paroxysmal Qualified Code(s): I48.0 - Paroxysmal atrial fibrillation (6) CAD (coronary artery disease) Code(s): I25.10 - ATHSCL HEART DISEASE OF [place] CORONARY ARTERY W/O ANG PCTRS (7) Hypertension Assessment/Plan: Well controlled Code(s): I10 - ESSENTIAL (PRIMARY) HYPERTENSION Qualifiers: Hypertension type: essential hypertension Qualified Code(s): I10 - Essential (primary) hypertension (8) Type 2 diabetes mellitus Assessment/Plan: Hypogltycemia on BID Levimir will start Levimir 12 units bed time and correction dose Insulin to Optimize Glycemic control Code(s): E11.9 - TYPE 2 DIABETES MELLITUS WITHOUT COMPLICATIONS Qualifiers: Diabetes mellitus complication status: with circulatory complication (9) Obstructive sleep apnea Assessment/Plan: On CPAP at senior counsel commercial O2 sat at resting. Code(s): G47.33 - OBSTRUCTIVE SLEEP APNEA (ADULT) (PEDIATRIC) (10) UTI (urinary tract infection) Assessment/Plan: Although U culture is + Pseudomonas but UA is unremarkable considering culture result, hypoglycemia and chills F/U U and U culture, Blood culture, Lactate level start on Levofloxacin 500 mg once and 250 mg q 48 hrs. Code(s): N39.0 - URINARY TRACT INFECTION, SITE NOT SPECIFIED
[2018-10-12 07:52] LABS: ALBUMIN 3.1 g/dl (3.4-5.0); BILIRUBIN,TOTAL 0.4 mg/dL (0.2-1); BLOOD UREA NITROGEN 58.1 mg/dL (7-18); CALCIUM 8.8 mg/dL (8.5-10.1); CREATININE 3.7 mg/dL (0.55-1.3); POTASSIUM 3.8 mmol/L (3.5-5.1)
[2018-10-12] MEDS: ALBUTEROL SO4 2.5/IPRATROPIUM 0.5 INH SOL 3 ML VIAL.NEB. NEB PRN (08:25)
[2018-10-12] MEDS: INSULIN (LEVEMIR) 100 UNITS/ML UNITS SQ SCH ×2 (08:29→22:09)
[2018-10-12] MEDS: CALCIUM ACETATE 667 MG CAPSULE (FP) PO SCH ×3 (08:31→17:30)
[2018-10-12] MEDS ORDERED: PT OWN MED DRAWER 7, Y5N ONE (10:22)
[2018-10-12] MEDS: PANTOPRAZOLE 40 MG TABLET (FP) PO SCH (10:24)
[2018-10-12] MEDS: amLODIPine BESYLATE 10 MG TABLET (FP) PO SCH (10:24)
[2018-10-12] MEDS: LABETALOL HCL 200 MG TABLET (FP) PO SCH ×2 (10:24→21:48)
[2018-10-12] MEDS: CHOLECALCIFEROL (VIT D3) 1,000 UNIT (25 MCG) TABLET PO SCH (10:24)
[2018-10-12] MEDS: SODIUM BICARBONATE 650 MG TABLET PO SCH (10:25)
[2018-10-12] MEDS: FUROSEMIDE 40 MG/4 ML INJECTABLE VIAL IVPUSH SCH (10:28)
[2018-10-12] MEDS: BUDESONIDE/FORMETEROL FUMARATE 160/4.5 mcg INHALER IH SCH ×2 (10:29→22:08)
[2018-10-12 12:39] LABS: ARTERIAL BLD GAS O2 SATURATION 98.8 % (95-98); ARTERIAL BLOOD GAS BASE EXCESS 5.1 meq/l (-2-2); ARTERIAL BLOOD GAS PCO2 38.4 mmHg (35-45); ARTERIAL BLOOD GAS PO2 109 mmHg (80-105); ARTERIAL BLOOD GAS pH 7.48 (7.35-7.45)
[2018-10-12 12:41] LABS: ALLENS TEST POSITIVE
--- NOTE | 2018-10-12 13:49 | CON.ID ---
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: Peripheral Neuropathy Cardio/Vascular: Yes: AFIB, CHF, HTN, Hyperlipdemia, Other (Atrial flutter s/p ablation, PAD) Pulmonary: Yes: COPD Renal/: Yes: Renal Inusuff (stage 4), Other (Overactive Bladder) Psych: Yes: Depression Endocrine: Yes: Diabetes Mellitus (initially on oral agents, now on insulin) - Past Surgical History Past Surgical History: Yes: Colonoscopy (polyps a few years ago), Hysterectomy ( fibroids), Tubal Ligation, Upper Endoscopy (neg 1+ yrs ago) - Alcohol/Substance Use Hx Alcohol Use: No - Smoking History Smoking history: Never smoked Have you smoked in the past 12 months: No Aproximately how many cigarettes per day: 1 If you are a former smoker, when did you quit?: 1 year ago - Social History Usual Living Arrangement: With Child ADL: Family Assistance History of Recent Travel: No Home Medications - Allergies Allergies/Adverse Reactions: Allergies Allergy/AdvReac Type Severity Reaction Status Date / Time No Known Allergies Allergy Verified 09/07/18 12:50 - Home Medications Home Medications: Ambulatory Orders Albuterol 2.5/Ipratropium 0.5 [Duoneb -] 1 amp NEB QID PRN 30 Days amp RX: Albuterol 0.083% Nebulizer Norma [Ventolin 0.083% Nebulizer Soln -] 1 amp NEB Q4H PRN #0 amp 09/15/18 RX: Budesonide/Formeterol Fumarate [SYMBICORT 160/4.5mcg -] 2 puff IH BID inhaler 09/15/18 RX: Folic Acid - 1 mg PO DAILY tablet 09/15/18 RX: Furosemide [Lasix -] 40 mg PO DAILY #30 tablet 09/15/18 RX: Insulin (Levemir) [Levemir Vial] 10 units SQ DAILY@0800 #3 ml 09/15/18 RX: Insulin (Levemir) [Levemir Vial] 24 units SQ HS #6 ml 09/15/18 RX: Labetalol HCl [Normodyne -] 200 mg PO BID #60 tablet 09/15/18 RX: Sodium Bicarbonate - 650 mg PO BID tablet 09/15/18 RX: Warfarin Sodium [Coumadin] 7.5 mg PO HS #30 tablet 09/15/18 RX: Hydralazine HCl 100 mg PO TID #90 tablet 09/16/18 Cholecalciferol (Vitamin D3) [Vitamin D3] 5,000 unit PO DAILY 10/08/18 RX: Amlodipine Besylate [Norvasc -] 10 mg PO DAILY 10/08/18 RX: Calcium Acetate 667 mg PO TID 10/08/18 RX: Insulin Sliding Scale [Novolog Vial Sliding Scale -] 1 unit SQ ASDIR PRN 11/18 RX: Pantoprazole Sodium 40 mg PO DAILY 10/08/18 Diltiazem HCl [Diltiazem 24Hr ER (Cd)] 120 mg PO DAILY 10/09/18 Family Disease History - Family Disease History Family Disease History: Diabetes: Grandparent, Mother, Sister (lung cancer), [place] : Sister Physical Exam Vital Signs: Vital Signs Temperature 98.5 F 10/12/18 10:00 Pulse Rate 76 10/12/18 10:00 Respiratory Rate 20 10/12/18 10:00 Blood Pressure 162/64 10/12/18 10:00 O2 Sat by Pulse Oximetry (%) 98 10/11/18 21:00 Labs: CBC, BMP 10/12/18 05:45 10/12/18 05:45
--- NOTE | 2018-10-12 14:27 | PN ---
Progress Note (short form) - Note Progress Note: Renal follow up for CKD Pt seen and examined at the bedside awake, reports feeling very cold and short of breath Pulse Ox is WNL and PO2 is WNL making urine Vital Signs Temperature 98.5 F 10/12/18 10:00 Pulse Rate 76 10/12/18 10:00 Respiratory Rate 20 10/12/18 10:00 Blood Pressure 162/64 10/12/18 10:00 O2 Sat by Pulse Oximetry (%) 5 L 10/12/18 09:00 Intake & Output 10/09/18 10/10/18 10/11/18 10/12/18 23:59 23:59 23:59 23:59 Intake Total 140 875 270 610 Balance 140 875 270 610 Weight 103.328 kg 100.516 kg NAD awake and alert RRR Fine crackles through the lung field + edema in LE CBC, BMP 10/12/18 05:45 10/12/18 05:45 Current Medications Albuterol Sulfate (Ventolin 0.083% Nebulizer Soln -) 1 amp NEB Q4H PRN PRN Reason: SHORT OF BREATH/WHEEZING Last Admin: 10/12/18 11:52 Dose: 1 amp Albuterol/Ipratropium (Duoneb -) 1 amp NEB Q6H PRN PRN Reason: SHORTNESS OF BREATH Last Admin: 10/12/18 08:25 Dose: 1 amp Amlodipine Besylate (Norvasc -) 10 mg PO DAILY [facility] Last Admin: 10/12/18 10:24 Dose: 10 mg Budesonide/Formoterol Fumarate (Symbicort 160/4.5mcg -) 2 puff IH BID [facility] Last Admin: 10/12/18 10:29 Dose: 2 puff Calcium Acetate (Phoslo -) 667 mg PO TIDCM [facility] Last Admin: 10/12/18 12:23 Dose: 667 mg Cholecalciferol (Vitamin D3 -) 5,000 unit PO DAILY [facility] Last Admin: 10/12/18 10:24 Dose: 5,000 unit Furosemide (Lasix Injection -) 80 mg IVPUSH DAILY [facility] Last Admin: 10/12/18 10:28 Dose: 80 mg Hydralazine HCl (Apresoline -) 100 mg PO TID [facility] Last Admin: 10/12/18 06:32 Dose: 100 mg Insulin Aspart (Novolog Vial Sliding Scale -) 1 vial SQ ACHS [facility]; Protocol Last Admin: 10/12/18 12:03 Dose: Not Given Insulin Detemir (Levemir Vial) 10 units SQ HS [facility] Labetalol HCl (Normodyne -) 200 mg PO BID [facility] Last Admin: 10/12/18 10:24 Dose: 200 mg Pantoprazole Sodium (Protonix -) 40 mg PO DAILY [facility] Last Admin: 10/12/18 10:24 Dose: 40 mg Sodium Bicarbonate (Sodium Bicarbonate -) 650 mg PO DAILY [facility] Warfarin Sodium (Coumadin -) 7.5 mg PO DAILY@1800 [facility] Last Admin: 10/11/18 18:20 Dose: 7.5 mg 77 year old woman with history of 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
--- NOTE | 2018-10-12 16:01 | PN ---
Physical Exam: SUBJECTIVE: Patient seen and examined at bedside this AM. Pt was found to be hypoglycemic of 30. Pt was tachypnic and had b/l LE calf tenderness. I ordered b /l duplex and stat CXR and abg. OBJECTIVE: Vital Signs Period Temp Pulse Resp BP Sys/Renee Pulse Ox Last 24 Hr 97.1 F-98.6 F 64-78 20-22 128-162/48-64 5-98 GENERAL: The patient is awake, alert, somewhat altered forgetting why patient is in hospital. HEAD: Normal with no signs of trauma. NECK: supple. LUNGS: Breath sounds equal, tahypnic, slight crackles in b/l bases HEART: Regular rate and rhythm, S1, S2 without murmur, rub or gallop. ABDOMEN: Soft, nontender, nondistended, no guarding, no rebound. EXTREMITIES: 2+ pulses, warm, well-perfused, trace edema on left leg, b/l calf tenderness. NEUROLOGICAL: Cranial nerves II through XII grossly intact. Normal speech, gait not observed. PSYCH: pt slightly altered. SKIN: Warm, dry, no rashes or lesions noted Laboratory Results - last 24 hr 10/11/18 10/11/18 10/11/18 06:44 18:18 21:55 WBC RBC Hgb Hct MCV MCH MCHC RDW Plt Count MPV Absolute Neuts (auto) Neutrophils % Lymphocytes % Monocytes % Eosinophils % Basophils % Nucleated RBC % Anticoagulation Therapy Puncture Site ABG pH ABG pCO2 at Pt Temp ABG pO2 at Pt Temp ABG HCO3 ABG O2 Sat (Measured) ABG O2 Content ABG Base Excess Cr Test O2 Delivery Device Oxygen Flow Rate Vent Mode Vent Rate Mechanical Rate Pressure Support Vent Sodium 144 Potassium 4.0 Chloride 105 Carbon Dioxide 30 Anion Gap 8 BUN 55.9 H Creatinine 3.7 H Est GFR (CKD-EPI)AfAm 12.76 Est GFR (CKD-EPI)NonAf 11.01 POC Glucometer 261 162 Random Glucose 89 Lactic Acid Calcium 8.4 L Iron 42 L TIBC 252 Iron Saturation 16 L Unsaturated IBC 210 Ferritin 180.6 Total Bilirubin 0.4 AST 10 L ALT 16 Alkaline Phosphatase 43 L Total Protein 5.2 L Albumin 2.7 L 10/12/18 10/12/18 10/12/18 05:45 05:45 05:48 WBC 6.4 RBC 2.59 L Hgb 8.4 L Hct 25.4 L MCV 98.1 H MCH 32.4 MCHC 33.0 RDW 15.9 H Plt Count 252 MPV 8.9 Absolute Neuts (auto) 2.9 Neutrophils % 45.5 Lymphocytes % 41.2 H Monocytes % 12.2 H Eosinophils % 0.4 Basophils % 0.7 Nucleated RBC % 0 Anticoagulation Therapy Puncture Site ABG pH ABG pCO2 at Pt Temp ABG pO2 at Pt Temp ABG HCO3 ABG O2 Sat (Measured) ABG O2 Content ABG Base Excess Cr Test O2 Delivery Device Oxygen Flow Rate Vent Mode Vent Rate Mechanical Rate Pressure Support Vent Sodium 145 Potassium 3.8 Chloride 106 Carbon Dioxide 31 Anion Gap 8 BUN 58.1 H Creatinine 3.7 H Est GFR (CKD-EPI)AfAm 12.76 Est GFR (CKD-EPI)NonAf 11.01 POC Glucometer 25 Random Glucose 30 L* Lactic Acid Calcium 8.8 Iron TIBC Iron Saturation Unsaturated IBC Ferritin Total Bilirubin 0.4 AST 15 ALT 20 Alkaline Phosphatase 49 Total Protein 6.0 L Albumin 3.1 L 10/12/18 10/12/18 10/12/18 06:58 08:18 11:36 WBC RBC Hgb Hct MCV MCH MCHC RDW Plt Count MPV Absolute Neuts (auto) Neutrophils % Lymphocytes % Monocytes % Eosinophils % Basophils % Nucleated RBC % Anticoagulation Therapy Puncture Site ABG pH ABG pCO2 at Pt Temp ABG pO2 at Pt Temp ABG HCO3 ABG O2 Sat (Measured) ABG O2 Content ABG Base Excess Cr Test O2 Delivery Device Oxygen Flow Rate Vent Mode Vent Rate Mechanical Rate Pressure Support Vent Sodium Potassium Chloride Carbon Dioxide Anion Gap BUN Creatinine Est GFR (CKD-EPI)AfAm Est GFR (CKD-EPI)NonAf POC Glucometer 149 128 129 Random Glucose Lactic Acid Calcium Iron TIBC Iron Saturation Unsaturated IBC Ferritin Total Bilirubin AST ALT Alkaline Phosphatase Total Protein Albumin 10/12/18 10/12/18 12:15 13:40 WBC RBC Hgb Hct MCV MCH MCHC RDW Plt Count MPV Absolute Neuts (auto) Neutrophils % Lymphocytes % Monocytes % Eosinophils % Basophils % Nucleated RBC % Anticoagulation Therapy No Result Required. Puncture Site Right radial ABG pH 7.48 H ABG pCO2 at Pt Temp 38.4 ABG pO2 at Pt Temp 109 H ABG HCO3 28.6 H ABG O2 Sat (Measured) 98.8 H ABG O2 Content 10.9 L ABG Base Excess 5.1 H Cr Test Positive O2 Delivery Device No Result Required. Oxygen Flow Rate No Result Required. Vent Mode No Result Required. Vent Rate No Result Required. Mechanical Rate No Result Required. Pressure Support Vent No Result Required. Sodium Potassium Chloride Carbon Dioxide Anion Gap BUN Creatinine Est GFR (CKD-EPI)AfAm Est GFR (CKD-EPI)NonAf POC Glucometer Random Glucose Lactic Acid 0.9 Calcium Iron TIBC Iron Saturation Unsaturated IBC Ferritin Total Bilirubin AST ALT Alkaline Phosphatase Total Protein Albumin Active Medications Generic Name Dose Route Start Last Admin Trade Name Freq PRN Reason Stop Dose Admin Albuterol Sulfate 1 amp 10/08/18 21:22 10/12/18 11:52 Ventolin 0.083% Nebulizer Soln - NEB 1 amp Q4H PRN Administration SHORT OF BREATH/WHEEZING Albuterol/Ipratropium 1 amp 10/08/18 21:22 10/12/18 08:25 Duoneb - NEB 1 amp Q6H PRN Administration SHORTNESS OF BREATH Amlodipine Besylate 10 mg 10/09/18 10:00 10/12/18 10:24 Norvasc - PO 10 mg DAILY [facility] Administration Budesonide/Formoterol Fumarate 2 puff 10/08/18 22:00 10/12/18 10:29 Symbicort 160/4.5mcg - IH 2 puff BID [facility] Administration Calcium Acetate 667 mg 10/09/18 08:00 10/12/18 12:23 Phoslo - PO 667 mg TIDCM [facility] Administration Cholecalciferol 5,000 unit 10/09/18 10:00 10/12/18 10:24 Vitamin D3 - PO 5,000 unit DAILY [facility] Administration Furosemide 80 mg 10/11/18 11:00 10/12/18 10:28 Lasix Injection - IVPUSH 80 mg DAILY [facility] Administration Hydralazine HCl 100 mg 10/08/18 22:00 10/12/18 15:18 Apresoline - PO 100 mg TID [facility] Administration Insulin Aspart 1 vial 10/09/18 07:00 10/12/18 12:03 Novolog Vial Sliding Scale - SQ Not Given ACHS [facility] Protocol Insulin Detemir 10 units 10/12/18 13:44 Levemir Vial SQ HS [facility] Labetalol HCl 200 mg 10/08/18 22:00 10/12/18 10:24 Normodyne - PO 200 mg BID [facility] Administration Pantoprazole Sodium 40 mg 10/09/18 10:00 10/12/18 10:24 Protonix - PO 40 mg DAILY [facility] Administration Sodium Bicarbonate 650 mg 10/13/18 10:00 Sodium Bicarbonate - PO DAILY [facility] Warfarin Sodium 7.5 mg 10/09/18 18:00 10/11/18 18:20 Coumadin - PO 7.5 mg DAILY@1800 [facility] Administration ASSESSMENT/PLAN: Pt is a 77 yo F wiht pMhx of obesity, HTN, DM, COPD on home nightly CPAP, CKD stage IV-5 (b/l SCr: 3.4-3.6) presented with reported mentation changes and lethargy in the presence of anasarca. #COPD/TREVON vs Pickwickian syndrome : - ABG- 7.48, 38, 28.6 showing slight met alkalosis, no hypoxia or hypercarbia of note. - c/w symbicort daily & duonebs as needed, resume nightly CPAP with settings of 12 IPAP, EPAP- 5 40%O2, Rate-18. - rpt CXR showing cardiomegaly, no pleural effusion, chf, pulm edema, or increased congestion. #UTI - UA Cx is positive pseudomonas, UA negative will f/u rpt UA and UA Cx, hypoglycemia and chills ass. w positive Cx is why pt is now on IV levaquin 500 daily and will switch to 250 q48 hrs. #AFib: - last PM 4 spells of VT, currently in normal sinus rhythm. - echo NL - conside Cardio f/u with [facility]. - c/w labetalol & warfarin nightly - target INR 2-3, - rpt INR pending - pt is low risk for coagulation. - duplex b/l LE's negative #CKD stage V - Dr. To- CKD stage 4/5, EGFR <15, lasix 80mg daily IV - Repeat iron studies, last admission iron saturation was very high - pt does not wish to undergo dialysis - not requiring [employer] - c/w 650 BID PO NaHCo3 - c/w phoslo 650 TID - plan to d/c pt on torsemide 60mg daily. - monitor UOP, daily weights - no jarvis at this time #HTN/ CHF - less overloaded today - no longer has anasarca - lasix 80 IV daily. - c/w amlodipine, labetalol, hydralazine as prescribed at home #DM - levemir 12 units @ bedtime and correction dose insulin to optimize glucose control. DVT PPx: pt on systemic AC #FEN: - Continue to monitor lytes - continue no fluids. - Low sodium, low phos, Low potassium & moderate carb diet. Visit type - Emergency Visit Emergency Visit: Yes ED Registration Date: 10/08/18 Care time: The patient presented to the Emergency Department on the above date and was hospitalized for further evaluation of their emergent condition. - New Patient This patient is new to me today: No - Critical Care Critical Care patient: No - Discharge Referral Referred to [facility] Med [facility] No ATTENDING PHYSICIAN STATEMENT I saw and evaluated the patient. I reviewed the resident's note and discussed the case with the resident. I agree with the resident's findings and plan as documented. SUBJECTIVE: OBJECTIVE: ASSESSMENT AND PLAN:
[2018-10-12 16:24] LABS: INR 2.19 (0.83-1.09); PROTHROMBIN TIME (PATIENT) 26.1 SEC (9.7-13.0)
[2018-10-12 16:56] LABS: EPI CELLS 2.4 /HPF (0-5/HPF); HYALINE CASTS 1 /lpf (0-8); URINE APPEARANCE CLEAR; URINE BACTERIA 338.9 /hpf (NEGATIVE); URINE BILIRUBIN NEGATIVE (NEGATIVE); URINE COLOR YELLOW; URINE GLUCOSE (UA) NEGATIVE (NEGATIVE); URINE KETONE NEGATIVE (NEGATIVE); URINE LEUK ESTERASE TRACE (NEGATIVE); URINE NITRITE POSITIVE (NEGATIVE); URINE PROTEIN TRACE (NEGATIVE); URINE RBC 3 /hpf (0-4); URINE UROBILINOGEN 0.2 mg/dL (0.2-1.0); URINE WBC 4 /hpf (0-5)
[2018-10-12] MEDS: WARFARIN NA 7.5 MG TABLET (FP) PO SCH (19:21)
[2018-10-13] MEDS: hydrALAZINE HCL 50 MG TABLET (FP) PO SCH ×3 (07:23→23:09)
[2018-10-13] MEDS: INSULIN SLIDING SCALE (NOVOLOG) 1 VIAL SQ SCH ×4 (07:23→23:10)
--- NOTE | 2018-10-13 08:56 | PN ---
Teaching Attending Note Name of Resident: Sridhar Monk ATTENDING PHYSICIAN STATEMENT I saw and evaluated the patient. I reviewed the resident's note and discussed the case with the resident. I agree with the resident's findings and plan as documented. SUBJECTIVE: Patient answers to questions appropiately but is very lethargic. OBJECTIVE: Vital Signs Temperature 99 F 10/13/18 01:59 Pulse Rate 69 10/13/18 01:59 Respiratory Rate 22 H 10/13/18 01:59 Blood Pressure 142/59 L 10/13/18 01:59 O2 Sat by Pulse Oximetry (%) 97 10/12/18 21:00 GENERAL: The patient is awake, alert, and oriented, but lethargic.,m on 2l oxygen HEAD: Normal with no signs of trauma. EYES: PERRL, extraocular movements intact, sclera anicteric, conjunctiva clear. ENT: Ears normal, oropharynx clear without exudates, moist mucous membranes. NECK: Trachea midline, full range of motion, supple. LUNGS: decreased BS BL, no wheezes, no crackles, mild accessory muscle use . HEART: Regular rate and rhythm, S1, S2 without murmur, rub or gallop. ABDOMEN: Soft, nontender, nondistended, normoactive bowel sounds, no guarding, no rebound, no hepatosplenomegaly, no masses. EXTREMITIES: 2+ pulses, warm, well-perfused, no edema. NEUROLOGICAL: Cranial nerves II through XII grossly intact. follows commands, speech is slow , gait not observed. feels weak, PSYCH: Normal mood, normal affect. SKIN: Warm, dry, normal turgor, no rashes or lesions noted CBCD WBC 6.4 K/mm3 (4.0-10.0) 10/12/18 05:45 RBC 2.59 M/mm3 (3.60-5.2) L 10/12/18 05:45 Hgb 8.4 GM/dL (10.7-15.3) L 10/12/18 05:45 Hct 25.4 % (32.4-45.2) L 10/12/18 05:45 MCV 98.1 fl (80-96) H 10/12/18 05:45 MCHC 33.0 g/dl (32.0-36.0) 10/12/18 05:45 RDW 15.9 % (11.6-15.6) H 10/12/18 05:45 Plt Count 252 K/MM3 (134-434) 10/12/18 05:45 MPV 8.9 fl (7.5-11.1) 10/12/18 05:45 CMP Sodium 145 mmol/L (136-145) 10/12/18 05:45 Potassium 3.8 mmol/L (3.5-5.1) 10/12/18 05:45 Chloride 106 mmol/L (98-107) 10/12/18 05:45 Carbon Dioxide 31 mmol/L (21-32) 10/12/18 05:45 Anion Gap 8 MMOL/L (8-16) 10/12/18 05:45 BUN 58.1 mg/dL (7-18) H 10/12/18 05:45 Creatinine 3.7 mg/dL (0.55-1.3) H 10/12/18 05:45 Random Glucose 30 mg/dL (74-106) L* 10/12/18 05:45 Calcium 8.8 mg/dL (8.5-10.1) 10/12/18 05:45 Total Bilirubin 0.4 mg/dL (0.2-1) 10/12/18 05:45 AST 15 U/L (15-37) 10/12/18 05:45 ALT 20 U/L (13-61) 10/12/18 05:45 Alkaline Phosphatase 49 U/L (45-117) 10/12/18 05:45 Total Protein 6.0 g/dl (6.4-8.2) L 10/12/18 05:45 Albumin 3.1 g/dl (3.4-5.0) L 10/12/18 05:45 CARDIAC ENZYMES Troponin I < 0.02 ng/ml (0.00-0.05) 10/08/18 15:54 Current Medications Generic Name Dose Route Start Last Admin Trade Name Freq PRN Reason Stop Dose Admin Albuterol Sulfate 1 amp 10/08/18 21:22 10/12/18 11:52 Ventolin 0.083% Nebulizer Soln - NEB 1 amp Q4H PRN Administration SHORT OF BREATH/WHEEZING Albuterol/Ipratropium 1 amp 10/08/18 21:22 10/12/18 08:25 Duoneb - NEB 1 amp Q6H PRN Administration SHORTNESS OF BREATH Amlodipine Besylate 10 mg 10/09/18 10:00 10/12/18 10:24 Norvasc - PO 10 mg DAILY [facility] Administration Budesonide/Formoterol Fumarate 2 puff 10/08/18 22:00 10/12/18 22:08 Symbicort 160/4.5mcg - IH 2 puff BID [facility] Administration Calcium Acetate 667 mg 10/09/18 08:00 10/12/18 17:30 Phoslo - PO Not Given TIDCM [facility] Cholecalciferol 5,000 unit 10/09/18 10:00 10/12/18 10:24 Vitamin D3 - PO 5,000 unit DAILY [facility] Administration Furosemide 80 mg 10/11/18 11:00 10/12/18 10:28 Lasix Injection - IVPUSH 80 mg DAILY [facility] Administration Hydralazine HCl 100 mg 10/08/18 22:00 10/13/18 07:23 Apresoline - PO 100 mg TID [facility] Administration Insulin Aspart 1 vial 10/09/18 07:00 10/13/18 07:23 Novolog Vial Sliding Scale - SQ Not Given ACHS [facility] Protocol Insulin Detemir 10 units 10/12/18 13:44 10/12/18 22:09 Levemir Vial SQ 10 units HS [facility] Administration Labetalol HCl 200 mg 10/08/18 22:00 10/12/18 21:48 Normodyne - PO 200 mg BID [facility] Administration Pantoprazole Sodium 40 mg 10/09/18 10:00 10/12/18 10:24 Protonix - PO 40 mg DAILY [facility] Administration Sodium Bicarbonate 650 mg 10/13/18 10:00 Sodium Bicarbonate - PO DAILY [facility] Warfarin Sodium 7.5 mg 10/09/18 18:00 10/12/18 19:21 Coumadin - PO 7.5 mg DAILY@1800 [facility] Administration Home Medications Medication Instructions Recorded Albuterol 0.083% Nebulizer Norma 1 amp NEB Q4H PRN #0 amp 09/15/18 [Ventolin 0.083% Nebulizer Soln -] Albuterol 2.5/Ipratropium 0.5 1 amp NEB QID PRN 30 Days amp 09/15/18 [Duoneb -] Budesonide/Formeterol Fumarate 2 puff IH BID inhaler 09/15/18 [SYMBICORT 160/4.5mcg -] Folic Acid - 1 mg PO DAILY tablet 09/15/18 Furosemide [Lasix -] 40 mg PO DAILY #30 tablet 09/15/18 Insulin (Levemir) [Levemir Vial] 10 units SQ DAILY@0800 #3 ml 09/15/18 Insulin (Levemir) [Levemir Vial] 24 units SQ HS #6 ml 09/15/18 Labetalol HCl [Normodyne -] 200 mg PO BID #60 tablet 09/15/18 Sodium Bicarbonate - 650 mg PO BID tablet 09/15/18 Warfarin Sodium [Coumadin] 7.5 mg PO HS #30 tablet 09/15/18 Hydralazine HCl 100 mg PO TID #90 tablet 09/16/18 Amlodipine Besylate [Norvasc -] 10 mg PO DAILY 10/08/18 Calcium Acetate 667 mg PO TID 10/08/18 Cholecalciferol (Vitamin D3) 5,000 unit PO DAILY 10/08/18 [Vitamin D3] Insulin Sliding Scale [Novolog 1 unit SQ ASDIR PRN 10/08/18 Vial Sliding Scale -] Pantoprazole Sodium 40 mg PO DAILY 10/08/18 Diltiazem HCl [Diltiazem 24Hr ER 120 mg PO DAILY 10/09/18 (Cd)] Microbiology 10/12/18 13:22 Blood - Peripheral Venous Blood Culture - Preliminary NO GROWTH OBTAINED AFTER 24 HOURS, INCUBATION TO CONTINUE FOR 4 DAYS. 10/12/18 13:40 Blood - Peripheral Venous Blood Culture - Preliminary NO GROWTH OBTAINED AFTER 24 HOURS, INCUBATION TO CONTINUE FOR 4 DAYS. 10/08/18 16:53 Urine - Urine - Catheterized Urine Culture - Final Pseudomonas Aeruginosa Lactose Fermenting Neg Bacilli ASSESSMENT AND PLAN: Patient is a 77 year old female with history significant for hypertension, diabetes, atrial fibrillation s/p ablation, on Coumadin, left lower extremity DVT, asthma, COPD presents with lethargy. # Acute lethargy: will repeat CT of the head stroke sections, for consult, discussed with , will order stat ABG and ordered stat CT of the head without contrast to r/o acute stroke, the resident Dr.Maria Hammond will follow the result of ABG and head Ct. # Acute metabolic encephalopathy improving , stat CT of the head, ABg ordered. # Acute UTI s/p Levofloxacin 500 mg once and 250 mg q 48 hrs. # Hx of DVT with therapeutic INR now, will continue coumadin, Echo reviewed. # ARF: 3.7--->4.0-->3.7 today avoid nephrotoxic drugs. Nephro on the case, s/p IVF follow with Nephro . continue sodium Bicarb. # Hx of COPD continue symbicort, nebs tx continue. Pulmonary on the case # T2DM continue Levemir # HTN: continue her home meds. DVT Px: Heparin, coumadin
[2018-10-13] MEDS: CALCIUM ACETATE 667 MG CAPSULE (FP) PO SCH ×3 (09:00→17:22)
--- NOTE | 2018-10-13 10:52 | PN ---
Progress Note, Physician History of Present Illness: stable no complaints - Current Medication List Current Medications: Active Medications Albuterol Sulfate (Ventolin 0.083% Nebulizer Soln -) 1 amp NEB Q4H PRN PRN Reason: SHORT OF BREATH/WHEEZING Last Admin: 10/12/18 11:52 Dose: 1 amp Albuterol/Ipratropium (Duoneb -) 1 amp NEB Q6H PRN PRN Reason: SHORTNESS OF BREATH Last Admin: 10/12/18 08:25 Dose: 1 amp Amlodipine Besylate (Norvasc -) 10 mg PO DAILY [facility] Last Admin: 10/12/18 10:24 Dose: 10 mg Budesonide/Formoterol Fumarate (Symbicort 160/4.5mcg -) 2 puff IH BID [facility] Last Admin: 10/12/18 22:08 Dose: 2 puff Calcium Acetate (Phoslo -) 667 mg PO TIDCM [facility] Last Admin: 10/12/18 17:30 Dose: Not Given Cholecalciferol (Vitamin D3 -) 5,000 unit PO DAILY [facility] Last Admin: 10/12/18 10:24 Dose: 5,000 unit Furosemide (Lasix Injection -) 80 mg IVPUSH DAILY [facility] Last Admin: 10/12/18 10:28 Dose: 80 mg Hydralazine HCl (Apresoline -) 100 mg PO TID [facility] Last Admin: 10/13/18 07:23 Dose: 100 mg Levofloxacin (Levaquin 250 Mg Premixed Ivpb -) 250 mg in 50 mls @ 50 mls/hr IVPB Q2D@1000 [facility]; Protocol Insulin Aspart (Novolog Vial Sliding Scale -) 1 vial SQ ACHS [facility]; Protocol Last Admin: 10/13/18 07:23 Dose: Not Given Insulin Detemir (Levemir Vial) 10 units SQ HS [facility] Last Admin: 10/12/18 22:09 Dose: 10 units Labetalol HCl (Normodyne -) 200 mg PO BID [facility] Last Admin: 10/12/18 21:48 Dose: 200 mg Pantoprazole Sodium (Protonix -) 40 mg PO DAILY [facility] Last Admin: 10/12/18 10:24 Dose: 40 mg Sodium Bicarbonate (Sodium Bicarbonate -) 650 mg PO DAILY [facility] Warfarin Sodium (Coumadin -) 7.5 mg PO DAILY@1800 [facility] Last Admin: 10/12/18 19:21 Dose: 7.5 mg - Objective Vital Signs: Vital Signs Temperature 99 F 10/13/18 01:59 Pulse Rate 69 10/13/18 01:59 Respiratory Rate 22 H 10/13/18 01:59 Blood Pressure 142/59 L 10/13/18 01:59 O2 Sat by Pulse Oximetry (%) 97 10/12/18 21:00 Constitutional: Yes: No Distress, Calm Cardiovascular: Yes: S1, S2 Respiratory: Yes: Regular, CTA Bilaterally Gastrointestinal: Yes: Normal Bowel Sounds, Soft Musculoskeletal: Yes: WNL Extremities: Yes: WNL Neurological: Yes: Alert, Oriented Psychiatric: Yes: Alert, Oriented Labs: INR, PTT INR 2.19 (0.83-1.09) H 10/12/18 15:30 Assessment/Plan Problem List - Problems (1) Lethargy Code(s): R53.83 - OTHER FATIGUE (2) Acute on chronic renal insufficiency Code(s): N28.9 - DISORDER OF KIDNEY AND URETER, UNSPECIFIED; N18.9 - CHRONIC KIDNEY DISEASE, UNSPECIFIED (3) CHF (congestive heart failure) Code(s): I50.9 - HEART FAILURE, UNSPECIFIED Qualifiers: Heart failure type: diastolic (4) Anemia Code(s): D64.9 - ANEMIA, UNSPECIFIED Qualifiers: Chronic kidney disease stage: stage 4 (severe) (5) Afib Code(s): I48.91 - UNSPECIFIED ATRIAL FIBRILLATION Qualifiers: Atrial fibrillation type: paroxysmal Qualified Code(s): I48.0 - Paroxysmal atrial fibrillation (6) CAD (coronary artery disease) Code(s): I25.10 - ATHSCL HEART DISEASE OF [place] CORONARY ARTERY W/O ANG PCTRS (7) Hypertension Code(s): I10 - ESSENTIAL (PRIMARY) HYPERTENSION Qualifiers: Hypertension type: essential hypertension Qualified Code(s): I10 - Essential (primary) hypertension (8) Type 2 diabetes mellitus Code(s): E11.9 - TYPE 2 DIABETES MELLITUS WITHOUT COMPLICATIONS Qualifiers: Diabetes mellitus complication status: with circulatory complication (9) Obstructive sleep apnea Code(s): G47.33 - OBSTRUCTIVE SLEEP APNEA (ADULT) (PEDIATRIC) (10) UTI (urinary tract infection) Code(s): N39.0 - URINARY TRACT INFECTION, SITE NOT SPECIFIED plan continue current mgmt monitor resp status rest as per the team
[2018-10-13 11:22] LABS: HEMOGLOBIN 8.1 GM/dL (10.7-15.3); MCHC 32.5 g/dl (32.0-36.0); MEAN CELL VOLUME 98.5 fl (80-96); MEAN PLT VOLUME 9.1 fl (7.5-11.1); PLATELET COUNT 234 K/MM3 (134-434); RBC 2.54 M/mm3 (3.60-5.2); RDW 16.1 % (11.6-15.6); WHITE BLOOD COUNT 5.2 K/mm3 (4.0-10.0)
[2018-10-13 11:59] LABS: BLOOD UREA NITROGEN 50.5 mg/dL (7-18); CALCIUM 8.5 mg/dL (8.5-10.1); CREATININE 3.7 mg/dL (0.55-1.3)
[2018-10-13] MEDS: FUROSEMIDE 40 MG/4 ML INJECTABLE VIAL IVPUSH SCH (12:11)
--- NOTE | 2018-10-13 12:11 | PN ---
Progress Note (short form) - Note Progress Note: PULMONARY CONSULTATION DICTATED 10/13/18 IMP DYSPNEA COPD ON HOME O2, NOCTURNAL BIPAP CHF PULMONARY HTN ALTERED MENTAL STATUS AFIB S/P ABLATION ON AC H/O DVT DM CKD ANEMIA RECENT PNEUMONIA PLAN INHALED BRONCHODILATORS O2 BIPAP AT NIGHT ANG PRN LASIX CONSIDER NEUROLOGY EVALUATION MONITOR LYTES,RENAL FUNCTION MONITOR H+H DR GOUDL Problem List - Problems (1) Lethargy Code(s): R53.83 - OTHER FATIGUE (2) CHF (congestive heart failure) Code(s): I50.9 - HEART FAILURE, UNSPECIFIED Qualifiers: Heart failure type: diastolic (3) Anemia Code(s): D64.9 - ANEMIA, UNSPECIFIED Qualifiers: Chronic kidney disease stage: stage 4 (severe) (4) Afib Code(s): I48.91 - UNSPECIFIED ATRIAL FIBRILLATION Qualifiers: Atrial fibrillation type: paroxysmal Qualified Code(s): I48.0 - Paroxysmal atrial fibrillation (5) CAD (coronary artery disease) Code(s): I25.10 - ATHSCL HEART DISEASE OF [place] CORONARY ARTERY W/O ANG PCTRS (6) CKD (chronic kidney disease) Code(s): N18.9 - CHRONIC KIDNEY DISEASE, UNSPECIFIED (7) COPD (chronic obstructive pulmonary disease) Code(s): J44.9 - CHRONIC OBSTRUCTIVE PULMONARY DISEASE, UNSPECIFIED Qualifiers: COPD type: emphysema Emphysema type: unspecified Qualified Code(s): J43.9 - Emphysema, unspecified (8) Hyperlipidemia Code(s): E78.5 - HYPERLIPIDEMIA, UNSPECIFIED Qualifiers: Hyperlipidemia type: pure hypercholesterolemia Qualified Code(s): E78.00 - Pure hypercholesterolemia, unspecified; E78.0 - Pure hypercholesterolemia (9) Hypertension Code(s): I10 - ESSENTIAL (PRIMARY) HYPERTENSION Qualifiers: Hypertension type: essential hypertension Qualified Code(s): I10 - Essential (primary) hypertension (10) IDDM (insulin dependent diabetes mellitus) Code(s): E11.9 - TYPE 2 DIABETES MELLITUS WITHOUT COMPLICATIONS; Z79.4 - PRISON (CURRENT) USE OF INSULIN (11) Pulmonary hypertension Code(s): I27.2 - OTHER SECONDARY PULMONARY HYPERTENSION * DO NOT USE * (12) Shortness of breath Code(s): R06.02 - SHORTNESS OF BREATH
[2018-10-13] MEDS: BUDESONIDE/FORMETEROL FUMARATE 160/4.5 mcg INHALER IH SCH ×2 (12:12→23:10)
[2018-10-13] MEDS: PANTOPRAZOLE 40 MG TABLET (FP) PO SCH (12:12)
[2018-10-13] MEDS: amLODIPine BESYLATE 10 MG TABLET (FP) PO SCH (12:12)
[2018-10-13] MEDS: SODIUM BICARBONATE 650 MG TABLET PO SCH (12:12)
[2018-10-13] MEDS: LABETALOL HCL 200 MG TABLET (FP) PO SCH ×2 (12:12→23:09)
[2018-10-13] MEDS: CHOLECALCIFEROL (VIT D3) 1,000 UNIT (25 MCG) TABLET PO SCH (12:12)
--- NOTE | 2018-10-13 13:25 | CONS ---
DATE OF CONSULTATION: 10/13/2018 REFERRING PHYSICIAN: Sandhya Harry MD HISTORY: History is obtained from the chart. Patient is currently lethargic and nonverbal. The patient is a 77-year-old black female well known to me from previous hospitalization, has past medical history of advanced COPD on home O2, left ventricular diastolic dysfunction, pulmonary hypertension, GERD, chronic kidney disease stage 4; history of atrial fibrillation status post ablation with recurrence, currently maintained on anticoagulation; hypertension, diabetes, ASHD, left lower extremity DVT, recently hospitalized at [facility] secondary to pneumonia, was transferred to [facility] post hospitalization for short-term rehab, was transferred back to [facility] secondary to altered mental status. Apparently on admission, as per patient's daughter, the patient was at baseline day prior to admission, apparently called the fdc on day of admission and was noted to have slower speech and altered mental status, increasing lower extremity edema. Patient was transferred back to [facility] ER. In the ER she had a CT of the head which revealed no evidence of acute pathology. She also had mild chest congestion on x-ray, at which time she was administered Lasix. She was subsequently transferred up to medical floor telemetry unit for further management. Hospitalization significant for she was evaluated by Renal. The renal function has improved since previous to the hospitalization. On hospitalization, patient was also significant for her mental status initially improved. Today she has been having increasing lethargy. She had a blood gas performed on October 12 which revealed no evidence of acute hypercapnia or hypoxemia. She was also noted early yesterday to have increasing shortness of breath. Her current hospitalization is also significant for UA is positive for nitrites, for which she was placed on antibiotic therapy. PAST MEDICAL HISTORY: Again includes chronic kidney disease stage 4, chronic diastolic heart failure, COPD on O2 as well as nocturnal BiPAP, pulmonary hypertension, diabetes, hypertension, history of DVT left lower extremity; atrial fibrillation status post ablation, on Coumadin; CHF. SOCIAL HISTORY: History of tobacco use, quit a year ago. No occupational exposures. REVIEW OF SYSTEMS: Unable to obtain at this point. Patient is very lethargic. CURRENT MEDICATIONS: Include Symbicort, sodium bicarbonate, Levaquin, Coumadin, albuterol, DuoNeb, Normodyne, Norvasc, Apresoline, insulin, Lasix IV push daily, PhosLo, Protonix, and vitamin D3. PHYSICAL EXAMINATION: General: The patient is a well-developed, well-nourished female, lethargic, in no acute respiratory distress. Vital Signs: She is afebrile. Heart rate is 69. Blood pressure is 142/59. Respiratory rate is 22. O2 saturation is 99% on 2 L. HEENT: Normocephalic, atraumatic. Neck: Supple. Heart: Irregular, S1, S2. Chest: Diminished breath sounds bilaterally. Poor inspiratory effort. Abdomen: Soft. Bowel sounds are positive. Extremities: No cyanosis or edema. LABORATORY: UA positive nitrites. WBC is 5.2, hemoglobin 8.1, hematocrit 25, platelet count of 234,000. INR is 2.19. Blood gas with pH of 7.48, PCO2 of 38 , a PO2 of 109, a bicarbonate of 28, and a saturation 98.8. Chemistries: BUN 50, creatinine 3.7, ammonia level less than 10. Chest x-ray: No acute infiltrates or effusions. Vascular study: No evidence of DVT. Head CT: No evidence of acute pathology. IMPRESSION: 1. Dyspnea, likely mild congestive heart failure, has multiple factors . 2. Chronic obstructive pulmonary disease, on home oxygen and nocturnal BiPAP. 3. Mild congestive heart failure. 4. Pulmonary hypertension. 5. Altered mental status. 6. Atrial fibrillation status post ablation, on anticoagulation. 7. History of deep vein thrombosis. 8. Diabetes. 9. Chronic kidney disease. 10. Anemia. 11. Recent pneumonia. PLAN: Inhaled bronchodilator, supplemental O2. Consider neurology evaluation. Monitor electrolytes, renal function, hemoglobin and hematocrit. Continue Lasix , nocturnal BiPAP. KACEY GOULD M.D. [id number] MTDD
--- NOTE | 2018-10-13 15:08 | CON.CARD ---
Consult Consult Specialty:: Cardiology Reason for Consultation:: sob, chf - History of Present Illness Chief Complaint: sob History of Present Illness: 77 year old woman with a history of hypertension, hyperlipidemia, heavy smoking , PAD with claudication, diabetes type II, atrial flutter status post ablation several years ago, followed by paroxysmal atrial fibrillation more recently, DVT 2015, on full AC for Afib, CKD, severe depression, chronic fatigue, chronic dyspnea on exertion of unclear etiology, multiple admissions for sob/hypoxia with clear lungs and clear lung imaging, prior outpatient V/Q showing low prob PE, with ventilation worse than perfusion, has been seen by multiple pulmonologists, has not improved with bronchodilators or inhaled corticosteroids , h/o R heart cath at [facility] years ago showing no sig pulm htn, prior Admisson [facility] 04/2017 with elevated troponin but nuclear stress test showed no ischemia and echo showed normal LV systolic function. Never had [facility] due to CKD and risk of VIKAS. Again admitted to [facility] 12/14/17 with chest pain and sob, elevated troponins up to 3's with normal CK level, normal LV systolic function on echo again. Now admitted with sob, lethargy, ams. pt seen and examined today in nad. awake but not alert, somnolent. appears somewhat confused. Denies current sob. states she feels tired. - History Source History Provided By: Patient, Medical Record Limitations to Obtaining History: Physical Impairment - Past Medical History [employer]: Yes: Peripheral Neuropathy Cardio/Vascular: Yes: AFIB, CHF, HTN, Hyperlipdemia, Other (Atrial flutter s/p ablation, PAD) Pulmonary: Yes: COPD Renal/: Yes: Renal Inusuff (stage 4), Other (Overactive Bladder) Psych: Yes: Depression Endocrine: Yes: Diabetes Mellitus (initially on oral agents, now on insulin) - Past Surgical History Past Surgical History: Yes: Colonoscopy (polyps a few years ago), Hysterectomy ( fibroids), Tubal Ligation, Upper Endoscopy (neg 1+ yrs ago) - Alcohol/Substance Use Hx Alcohol Use: No - Smoking History Smoking history: Never smoked Have you smoked in the past 12 months: No Aproximately how many cigarettes per day: 1 If you are a former smoker, when did you quit?: 1 year ago - Social History Usual Living Arrangement: With Child ADL: Family Assistance History of Recent Travel: No Home Medications - Allergies Allergies/Adverse Reactions: Allergies Allergy/AdvReac Type Severity Reaction Status Date / Time No Known Allergies Allergy Verified 09/07/18 12:50 - Home Medications Home Medications: Ambulatory Orders Albuterol 0.083% Nebulizer Norma [Ventolin 0.083% Nebulizer Soln -] 1 amp NEB Q4H PRN #0 amp 09/15/18 Albuterol 2.5/Ipratropium 0.5 [Duoneb -] 1 amp NEB QID PRN 30 Days amp Budesonide/Formeterol Fumarate [SYMBICORT 160/4.5mcg -] 2 puff IH BID inhaler 09/15/18 Folic Acid - 1 mg PO DAILY tablet 09/15/18 Furosemide [Lasix -] 40 mg PO DAILY #30 tablet 09/15/18 Insulin (Levemir) [Levemir Vial] 10 units SQ DAILY@0800 #3 ml 09/15/18 Insulin (Levemir) [Levemir Vial] 24 units SQ HS #6 ml 09/15/18 Labetalol HCl [Normodyne -] 200 mg PO BID #60 tablet 09/15/18 Sodium Bicarbonate - 650 mg PO BID tablet 09/15/18 Warfarin Sodium [Coumadin] 7.5 mg PO HS #30 tablet 09/15/18 Hydralazine HCl 100 mg PO TID #90 tablet 09/16/18 Amlodipine Besylate [Norvasc -] 10 mg PO DAILY 10/08/18 Calcium Acetate 667 mg PO TID 10/08/18 Cholecalciferol (Vitamin D3) [Vitamin D3] 5,000 unit PO DAILY 10/08/18 Insulin Sliding Scale [Novolog Vial Sliding Scale -] 1 unit SQ ASDIR PRN Pantoprazole Sodium 40 mg PO DAILY 10/08/18 Diltiazem HCl [Diltiazem 24Hr ER (Cd)] 120 mg PO DAILY 10/09/18 Family Disease History - Family Disease History Family Disease History: Diabetes: Grandparent, Mother, Sister (lung cancer), [place] : Sister Review of Systems - Review of Systems Constitutional: reports: Lethargy, Malaise, Weakness. denies: No Symptoms, Chills, Diaphoresis, Fever, Loss of Appetite, Night Sweats, Unintentional Wgt. Loss, Other Eyes: denies: No Symptoms, Blind Spots, Blurred Vision, Double Vision, Eye Pain , Floaters, Photophobia, Recent Change in Vision, Other HENT: denies: No Symptoms, Difficult Swallowing, Ear Discharge, Ear Pain, Epistaxis, Gingival Bleeding, Hearing Loss, Mouth Swelling, Nasal Congestion, Ocular Prosthesis, Throat Pain, Toothache, Ringing in Ears, Other Neck: denies: No Symptoms, Decreased ROM, Lumps, Pain on Movement, Stiffness, Swollen Glands, Tenderness, Other Cardiovascular: reports: Edema, Shortness of Breath. denies: No Symptoms, Chest Pain, Palpitations, Other Respiratory: reports: Exercise Intolerance, SOB, SOB on Exertion. denies: No Symptoms, Cough, Hemoptysis, Orthopnea, PND, Snoring, Wheezing, Other Gastrointestinal: denies: No Symptoms, Abdominal Pain, Bloating, Constipation, Diarrhea, Dysphagia, Indigestion, Melena, Nausea, Rectal Bleeding, Vomiting, Vomiting Blood, Other Genitourinary: denies: No Symptoms, Burning, Discharge, Dysuria, Flank Pain, Frequency, Hematuria, Incontinence, Lesions, Menses, Pain, Testicular Mass, Testicular Pain, Testicular Swelling, Urgency, Vaginal Bleeding, Other Breasts: denies: No Symptoms Reported, See HPI, Breast Implants, Discharge from Nipple, Lumps, Pain, Skin Changes, Other Musculoskeletal: denies: No Symptoms, Back Pain, Crepitus, Decreased ROM, Extremity Pain, Joint Pain, Joint Swelling, Muscle Pain, Muscle Cramps, Muscle Weakness, Other Integumentary: denies: No Symptoms, Blister, Bruising, Change in Color, Eczema, Erythema, Incision, Lesions, Lump, Pallor, Pruritis, Rash, Wound, Other Neurological: reports: Change in LOC, Confusion. denies: No Symptoms, Change in Speech, Dizziness, Headache, Incoordination, Numbness, Parasthesia, Pre- Existing Deficit, Seizure, Syncope, Tremors, Unsteady Gait, Weakness, Other Endocrine: denies: No Symptoms, Excessive Sweating, Flushing, Increased Hunger, Increased Thirst, Intolerance to Cold, Intolerance to Heat, Unexplained Weight Gain, Unexplained Weight Loss, Other Hematology/Lymphatic: denies: No Symptoms, Easily Bruised, Excessive Bleeding, Swollen Glands, Other Psychiatric: denies: No Symptoms, Altered Sleep Pattern, Anxiety, Depression, Hallucinations, Panic, Paranoia, Suicidal, Other - Risk Factors Known Risk Factors: Yes: Age, Hypercholesterolemia, Hypertension, Smoking Vital Signs: Vital Signs Temperature 99 F 10/13/18 01:59 Pulse Rate 72 10/13/18 10:00 Respiratory Rate 18 10/13/18 10:00 Blood Pressure 165/52 L 10/13/18 10:00 O2 Sat by Pulse Oximetry (%) 97 10/12/18 21:00 Constitutional: Yes: No Distress, Calm Eyes: Yes: Conjunctiva Clear, EOM Intact HENT: Yes: Atraumatic, Normocephalic Neck: Yes: Supple, Trachea Midline Respiratory: Yes: Regular, Diminished, Rales. No: On Nasal O2, Rhonchi, SOB, Wheezes Gastrointestinal: Yes: Normal Bowel Sounds, Soft. No: Distention, Tenderness Cardiovascular: Yes: Regular Rate and Rhythm. No: Bradycardia, Tachycardia, Pulse Irregular, Gallop, Rub, Varicosities JVD: No Carotid Bruit: No PMI: Non-Displaced Heart Sounds: Yes: S1, S2. No: Split S2, S3, S4, Clicks, Gallop, Rub, Bruit Murmur: No: Systolic Murmur, Diastolic Murmur Musculoskeletal: Yes: Muscle Weakness Edema: LLE: Trace, RLE: Trace Peripheral Pulses WNL: Yes Peripheral Pulses: 2+ Left Doralis Pedis, 2+ Right Dorsalis Pedis Neurological: No: Alert, Oriented Psychiatric: No: Alert, Oriented - Other Data Labs, Other Data: CBC, BMP 10/13/18 10:24 10/13/18 10:24 INR, PTT INR 2.19 (0.83-1.09) H 10/12/18 15:30 8/9 nsr 66bpm, septal infarct, t wave abnl possible lateral ischemia Echo: Report Reviewed Imaging - Results Chest X-ray: Report Reviewed, Image Reviewed EKG: Report Reviewed, Image Reviewed Other: Report Reviewed, Image Reviewed (tele-nsr) Assessment/Plan 77 year old woman with a history of hypertension, hyperlipidemia, heavy smoking , PAD with claudication, diabetes type II, atrial flutter status post ablation several years ago, followed by paroxysmal atrial fibrillation more recently, DVT 2016, on full AC for Afib, CKD, severe depression, chronic fatigue, chronic dyspnea on exertion of unclear etiology, multiple admissions for sob/hypoxia with clear lungs and clear lung imaging, prior outpatient V/Q showing low prob PE, with ventilation worse than perfusion, has been seen by multiple pulmonologists, has not improved with bronchodilators or inhaled corticosteroids , h/o R heart cath at [facility] years ago showing no sig pulm htn, prior Admisson [facility] 04/2017 with elevated troponin but nuclear stress test showed no ischemia and echo showed normal LV systolic function. Never had [facility] due to CKD and risk of VIKAS. Again admitted to [facility] 12/14/17 with chest pain and sob, elevated troponins up to 3's with normal CK level, normal LV systolic function on echo again. Now admitted with sob, lethargy, ams. pt seen and examined today in nad. awake but not alert, somnolent. appears somewhat confused. Denies current sob. states she feels tired. SOB-multifactorial due to COPD and component of acute on chronic diastolic CHF -recent echo 08/23/18 showed normal LVEF, Grade I diastolic dysfunction, mild valvular abnl, similar to prior echos -no need to repeat echo currently -receiving IV Lasix -Cxray 10/12/18 showed no sig residual pulm edema -transition to po Torsemide when possible -monitor strict I/Os, daily weights, bun/creat, and electrolytes and replete as needed -pulm/renal following Arrhythmia-h/o aflutter s/p ablation, h/o afib -currently NSR -continue current medications for now -on labetalol currently, was on diltiazem in the past -INR goal 2-3
[2018-10-13 15:10] LABS: ARTERIAL BLD GAS O2 SATURATION 97.4 % (95-98); ARTERIAL BLOOD GAS BASE EXCESS 4.9 meq/l (-2-2); ARTERIAL BLOOD GAS PCO2 47.9 mmHg (35-45); ARTERIAL BLOOD GAS PO2 93.5 mmHg (80-105); ARTERIAL BLOOD GAS pH 7.41 (7.35-7.45)
[2018-10-13 15:12] LABS: ALLENS TEST POSITIVE
--- NOTE | 2018-10-13 15:26 | PN ---
Progress Note (short form) - Note Progress Note: Renal follow up for CKD Pt seen and examined at the bedside awake, but groggy denies overt sob has a hard time keeping her eyes open Vital Signs Temperature 98.9 F 10/13/18 14:00 Pulse Rate 64 10/13/18 14:00 Respiratory Rate 20 10/13/18 14:00 Blood Pressure 131/61 10/13/18 14:00 O2 Sat by Pulse Oximetry (%) 100 10/13/18 09:00 Intake & Output 10/10/18 10/11/18 10/12/18 10/13/18 23:59 23:59 23:59 23:59 Intake Total 875 270 710 Balance 875 270 710 Weight 100.516 kg NAD awake and alert RRR Fine crackles through the lung field + edema in LE CBC, BMP 10/13/18 10:24 10/13/18 10:24 Current Medications Albuterol Sulfate (Ventolin 0.083% Nebulizer Soln -) 1 amp NEB Q4H PRN PRN Reason: SHORT OF BREATH/WHEEZING Last Admin: 10/12/18 11:52 Dose: 1 amp Albuterol/Ipratropium (Duoneb -) 1 amp NEB Q6H PRN PRN Reason: SHORTNESS OF BREATH Last Admin: 10/12/18 08:25 Dose: 1 amp Amlodipine Besylate (Norvasc -) 10 mg PO DAILY [facility] Last Admin: 10/13/18 12:12 Dose: 10 mg Budesonide/Formoterol Fumarate (Symbicort 160/4.5mcg -) 2 puff IH BID [facility] Last Admin: 10/13/18 12:12 Dose: 2 puff Calcium Acetate (Phoslo -) 667 mg PO TIDCM [facility] Last Admin: 10/13/18 12:11 Dose: 667 mg Cholecalciferol (Vitamin D3 -) 5,000 unit PO DAILY [facility] Last Admin: 10/13/18 12:12 Dose: 5,000 unit Furosemide (Lasix Injection -) 80 mg IVPUSH DAILY [facility] Last Admin: 10/13/18 12:11 Dose: 80 mg Hydralazine HCl (Apresoline -) 100 mg PO TID [facility] Last Admin: 10/13/18 07:23 Dose: 100 mg Levofloxacin (Levaquin 250 Mg Premixed Ivpb -) 250 mg in 50 mls @ 50 mls/hr IVPB Q2D@1000 [facility]; Protocol Last Admin: 10/13/18 12:12 Dose: 50 mls/hr Insulin Aspart (Novolog Vial Sliding Scale -) 1 vial SQ ACHS [facility]; Protocol Last Admin: 10/13/18 14:05 Dose: Not Given Insulin Detemir (Levemir Vial) 10 units SQ HS [facility] Last Admin: 10/12/18 22:09 Dose: 10 units Labetalol HCl (Normodyne -) 200 mg PO BID [facility] Last Admin: 10/13/18 12:12 Dose: 200 mg Pantoprazole Sodium (Protonix -) 40 mg PO DAILY [facility] Last Admin: 10/13/18 12:12 Dose: 40 mg Sodium Bicarbonate (Sodium Bicarbonate -) 650 mg PO DAILY [facility] Last Admin: 10/13/18 12:12 Dose: 650 mg Warfarin Sodium (Coumadin -) 7.5 mg PO DAILY@1800 [facility] Last Admin: 10/12/18 19:21 Dose: 7.5 mg 77 year old woman with history of 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 #CKD stage 4/5, renal function stable #CHF with pulmonary congestion #COPD/Chronic dyspnea #LE edema #Hypertension #Acute on Chronic anemia Renal function stable no emergent indication for SOCK [employer]ER despite eGFR < 15 Continue Lasix 80mg IV daily for volume management with plan to convert to torsemide s/p Aranesp SC for CKD related anemia on 10/11 etiology of AMS unclear as ABG did not show overt hypercarbia, BUN/Cr now significantly changed and thus no uremia and ammonia levels WNL. continue Nebs per pulmonary, BIPAP as needed overall prognosis is guarded Thank you Tylor Funez DO
--- NOTE | 2018-10-13 15:32 | PN ---
Physical Exam: SUBJECTIVE: Patient seen and examined at bedside this AM. Pt is lethargic currently, with slightly labored breathing, glucose level stable. OBJECTIVE: Vital Signs Period Temp Pulse Resp BP Sys/Renee Pulse Ox Last 24 Hr 98.9 F-99.4 F 64-74 18-22 131-165/52-61 97-100 GENERAL: The patient is awake but lethargic not very alert, but responsive to questions. HEAD: Normal with no signs of trauma. NECK: supple. LUNGS: Breath sounds equal, crackles heard b/l HEART: Regular rate and rhythm, S1, S2 without murmur, rub or gallop. ABDOMEN: Soft, nontender, nondistended, normoactive bowel sounds, no guarding, no rebound. EXTREMITIES: warm, well-perfused, 1+ LE edema. NEUROLOGICAL: Cranial nerves II through XII grossly intact. normal speech, gait not observed. PSYCH: Normal mood, normal affect. SKIN: Warm, dry, no rashes or lesions noted Laboratory Results - last 24 hr 10/12/18 10/12/18 10/12/18 13:45 13:58 15:30 WBC RBC Hgb Hct MCV MCH MCHC RDW Plt Count MPV PT with INR 26.10 H INR 2.19 H Anticoagulation Therapy Puncture Site ABG pH ABG pCO2 at Pt Temp ABG pO2 at Pt Temp ABG HCO3 ABG O2 Sat (Measured) ABG O2 Content ABG Base Excess Cr Test O2 Delivery Device Oxygen Flow Rate Vent Mode Vent Rate Mechanical Rate Pressure Support Vent Sodium Potassium Chloride Carbon Dioxide Anion Gap BUN Creatinine Est GFR (CKD-EPI)AfAm Est GFR (CKD-EPI)NonAf POC Glucometer 142 Random Glucose Calcium Ammonia Urine Color Yellow Urine Appearance Clear Urine pH 8.0 Ur Specific [place] 1.008 L Urine Protein Trace Urine Glucose (UA) Negative Urine Ketones Negative Urine Blood Negative Urine Nitrite Positive H Urine Bilirubin Negative Urine Urobilinogen 0.2 Ur Leukocyte Esterase Trace Urine WBC (Auto) 4 Urine RBC (Auto) 3 Urine Casts (Auto) 1 U Epithel Cells (Auto) 2.4 Urine Bacteria (Auto) 338.9 10/12/18 10/12/18 10/13/18 17:23 21:50 05:47 WBC RBC Hgb Hct MCV MCH MCHC RDW Plt Count MPV PT with INR INR Anticoagulation Therapy Puncture Site ABG pH ABG pCO2 at Pt Temp ABG pO2 at Pt Temp ABG HCO3 ABG O2 Sat (Measured) ABG O2 Content ABG Base Excess Cr Test O2 Delivery Device Oxygen Flow Rate Vent Mode Vent Rate Mechanical Rate Pressure Support Vent Sodium Potassium Chloride Carbon Dioxide Anion Gap BUN Creatinine Est GFR (CKD-EPI)AfAm Est GFR (CKD-EPI)NonAf POC Glucometer 113 153 119 Random Glucose Calcium Ammonia Urine Color Urine Appearance Urine pH Ur Specific [place] Urine Protein Urine Glucose (UA) Urine Ketones Urine Blood Urine Nitrite Urine Bilirubin Urine Urobilinogen Ur Leukocyte Esterase Urine WBC (Auto) Urine RBC (Auto) Urine Casts (Auto) U Epithel Cells (Auto) Urine Bacteria (Auto) 10/13/18 10/13/18 10/13/18 10:24 10:24 10:24 WBC 5.2 RBC 2.54 L Hgb 8.1 L Hct 25.0 L MCV 98.5 H MCH 32.0 MCHC 32.5 RDW 16.1 H Plt Count 234 MPV 9.1 PT with INR INR Anticoagulation Therapy Puncture Site ABG pH ABG pCO2 at Pt Temp ABG pO2 at Pt Temp ABG HCO3 ABG O2 Sat (Measured) ABG O2 Content ABG Base Excess Cr Test O2 Delivery Device Oxygen Flow Rate Vent Mode Vent Rate Mechanical Rate Pressure Support Vent Sodium 142 Potassium 4.0 Chloride 104 Carbon Dioxide 31 Anion Gap 7 L BUN 50.5 H Creatinine 3.7 H Est GFR (CKD-EPI)AfAm 12.76 Est GFR (CKD-EPI)NonAf 11.01 POC Glucometer Random Glucose 107 H Calcium 8.5 Ammonia < 10.00 L Urine Color Urine Appearance Urine pH Ur Specific [place] Urine Protein Urine Glucose (UA) Urine Ketones Urine Blood Urine Nitrite Urine Bilirubin Urine Urobilinogen Ur Leukocyte Esterase Urine WBC (Auto) Urine RBC (Auto) Urine Casts (Auto) U Epithel Cells (Auto) Urine Bacteria (Auto) 10/13/18 10/13/18 12:28 14:50 WBC RBC Hgb Hct MCV MCH MCHC RDW Plt Count MPV PT with INR INR Anticoagulation Therapy No Result Required. Puncture Site Right radial ABG pH 7.41 ABG pCO2 at Pt Temp 47.9 H ABG pO2 at Pt Temp 93.5 ABG HCO3 29.8 H ABG O2 Sat (Measured) 97.4 ABG O2 Content 12.9 L ABG Base Excess 4.9 H Cr Test Positive O2 Delivery Device No Result Required. Oxygen Flow Rate Yes Vent Mode No Result Required. Vent Rate No Result Required. Mechanical Rate No Result Required. Pressure Support Vent No Result Required. Sodium Potassium Chloride Carbon Dioxide Anion Gap BUN Creatinine Est GFR (CKD-EPI)AfAm Est GFR (CKD-EPI)NonAf POC Glucometer 114 Random Glucose Calcium Ammonia Urine Color Urine Appearance Urine pH Ur Specific [place] Urine Protein Urine Glucose (UA) Urine Ketones Urine Blood Urine Nitrite Urine Bilirubin Urine Urobilinogen Ur Leukocyte Esterase Urine WBC (Auto) Urine RBC (Auto) Urine Casts (Auto) U Epithel Cells (Auto) Urine Bacteria (Auto) Active Medications Generic Name Dose Route Start Last Admin Trade Name Freq PRN Reason Stop Dose Admin Albuterol Sulfate 1 amp 10/08/18 21:22 10/12/18 11:52 Ventolin 0.083% Nebulizer Soln - NEB 1 amp Q4H PRN Administration SHORT OF BREATH/WHEEZING Albuterol/Ipratropium 1 amp 10/08/18 21:22 10/12/18 08:25 Duoneb - NEB 1 amp Q6H PRN Administration SHORTNESS OF BREATH Amlodipine Besylate 10 mg 10/09/18 10:00 10/13/18 12:12 Norvasc - PO 10 mg DAILY ERMA Administration Budesonide/Formoterol Fumarate 2 puff 10/08/18 22:00 10/13/18 12:12 Symbicort 160/4.5mcg - IH 2 puff BID ERMA Administration Calcium Acetate 667 mg 10/09/18 08:00 10/13/18 12:11 Phoslo - PO 667 mg TIDCM ERMA Administration Cholecalciferol 5,000 unit 10/09/18 10:00 10/13/18 12:12 Vitamin D3 - PO 5,000 unit DAILY ERMA Administration Furosemide 80 mg 10/11/18 11:00 10/13/18 12:11 Lasix Injection - IVPUSH 80 mg DAILY ERMA Administration Hydralazine HCl 100 mg 10/08/18 22:00 10/13/18 07:23 Apresoline - PO 100 mg TID ERMA Administration Levofloxacin 250 mg in 50 mls @ 50 mls/hr 10/13/18 10:00 10/13/18 12:12 Levaquin 250 Mg Premixed Ivpb - IVPB 50 mls/hr Q2D@1000 [facility] Administration Protocol Insulin Aspart 1 vial 10/09/18 07:00 10/13/18 14:05 Novolog Vial Sliding Scale - SQ Not Given ACHS [facility] Protocol Insulin Detemir 10 units 10/12/18 13:44 10/12/18 22:09 Levemir Vial SQ 10 units HS ERMA Administration Labetalol HCl 200 mg 10/08/18 22:00 10/13/18 12:12 Normodyne - PO 200 mg BID ERMA Administration Pantoprazole Sodium 40 mg 10/09/18 10:00 10/13/18 12:12 Protonix - PO 40 mg DAILY ERMA Administration Sodium Bicarbonate 650 mg 10/13/18 10:00 10/13/18 12:12 Sodium Bicarbonate - PO 650 mg DAILY ERMA Administration Warfarin Sodium 7.5 mg 10/09/18 18:00 10/12/18 19:21 Coumadin - PO 7.5 mg DAILY@1800 [facility] Administration ASSESSMENT/PLAN: Pt is a 77 yo F wiht pMhx of obesity, HTN, DM, COPD on home nightly CPAP, CKD stage IV-5 (b/l SCr: 3.4-3.6) presented with reported mentation changes and lethargy in the presence of anasarca. #COPD/TREVON vs Pickwickian syndrome : - c/w symbicort daily & duonebs as needed, resume nightly BIPAP or PRN BIPAP #Altered mental status - repeat ABG not hypercarbic enough to cause this AMS possible depression component to this. Neuro consulted (Dr. Mccormack) #UTI - IV levaquin 500 daily and will switch to 250 q48 hrs tomorrow. #AFib/Flutter hx: - will continue the current meds labetalol and warfarin - Per cardio (Dr. Newton), pt in NSR no need for rpt echo, pt has hx of Aflutter s/p ablation, h/o AFib. #CKD stage V - on lasix 80mg daily IV last admission - not requiring [employer] - c/w 650 BID PO NaHCo3, phoslo 650 TID - pt not retaining, incontinent and diaper is wet. - no jarvis at this time #HTN/CHF - c/w lasix, amlodipine, labetalol, hydralazine as prescribed at home #DM - levemir 12 units @ bedtime and correction dose insulin to optimize glucose control. DVT PPx: pt on systemic AC #FEN: - Continue to monitor lytes - continue no fluids. - Low sodium, low phos, Low potassium & moderate carb diet. Visit type - Emergency Visit Emergency Visit: Yes ED Registration Date: 10/08/18 Care time: The patient presented to the Emergency Department on the above date and was hospitalized for further evaluation of their emergent condition. - New Patient This patient is new to me today: No - Critical Care Critical Care patient: No - Discharge Referral Referred to [facility] Med P.C.: No ATTENDING PHYSICIAN STATEMENT I saw and evaluated the patient. I reviewed the resident's note and discussed the case with the resident. I agree with the resident's findings and plan as documented. SUBJECTIVE: OBJECTIVE: ASSESSMENT AND PLAN:
[2018-10-13 20:15] LABS: INR 2.6 (0.83-1.09)
[2018-10-13 22:16] LABS: ARTERIAL BLD GAS O2 SATURATION 86.8 % (95-98); ARTERIAL BLOOD GAS BASE EXCESS 4.3 meq/l (-2-2); ARTERIAL BLOOD GAS PCO2 45.3 mmHg (35-45); ARTERIAL BLOOD GAS PO2 51.2 mmHg (80-105); ARTERIAL BLOOD GAS pH 7.42 (7.35-7.45)
[2018-10-13 22:17] LABS: ALLENS TEST POSITIVE
[2018-10-13] MEDS: INSULIN (LEVEMIR) 100 UNITS/ML UNITS SQ SCH (23:09)
[2018-10-13] MEDS: WARFARIN NA 7.5 MG TABLET (FP) PO SCH (23:09)
[2018-10-14] MEDS: hydrALAZINE HCL 50 MG TABLET (FP) PO SCH ×3 (06:42→22:26)
[2018-10-14] MEDS: INSULIN SLIDING SCALE (NOVOLOG) 1 VIAL SQ SCH ×4 (06:42→22:26)
[2018-10-14 07:18] LABS: BASO % 1.1 % (0-2.0); EOS % 1.1 % (0-4.5); HEMATOCRIT 26.2 % (32.4-45.2); HEMOGLOBIN 8.5 GM/dL (10.7-15.3); LYMPH % 31.4 % (8-40); MCH 32.3 pg (25.7-33.7); MCHC 32.6 g/dl (32.0-36.0); MEAN PLT VOLUME 8.9 fl (7.5-11.1); MONO % 12.2 % (3.8-10.2); NEUT % 54.2 % (42.8-82.8); PLATELET COUNT 247 K/MM3 (134-434); RBC 2.64 M/mm3 (3.60-5.2); RDW 15.8 % (11.6-15.6); WHITE BLOOD COUNT 5.1 K/mm3 (4.0-10.0)
[2018-10-14] MEDS: ALBUTEROL SO4 2.5/IPRATROPIUM 0.5 INH SOL 3 ML VIAL.NEB. NEB PRN (07:41)
[2018-10-14 07:42] LABS: ALBUMIN 2.8 g/dl (3.4-5.0); BILIRUBIN,TOTAL 0.5 mg/dL (0.2-1); BLOOD UREA NITROGEN 48.9 mg/dL (7-18); CALCIUM 8.8 mg/dL (8.5-10.1); CREATININE 3.8 mg/dL (0.55-1.3); POTASSIUM 4.2 mmol/L (3.5-5.1); TOT PROT 5.7 g/dl (6.4-8.2)
[2018-10-14] MEDS: CALCIUM ACETATE 667 MG CAPSULE (FP) PO SCH ×3 (08:05→17:30)
--- NOTE | 2018-10-14 11:00 | CONSULT ---
Consult - text type - Consultation Consultation Note: NEUROLOGY CONSULT GREATLY APPRECIATED: Events reviewed and discussed with nursing staff and VIVIANE Toney. This 77 yo RH woman has been living with her daughter for past year with HHS 5x/week from 9-. Her daughter assists in cooking, cleaning, bills paying, etc. PMHX: NIDDM, COPD, Afib (s/p ablation, warfarin), CKD stage 4, HTN, CHF and LLE DVT On: albuterol, amlodipine, symbicort, folic acid, furosemide, insulins, labetalol 200 mg BID, warfarin, prednisone, hydralazine 100 mg TID. She was admitted to [facility] for shortness of breath and then transferred to [facility]. She now returns from [facility] for similar complaints. She notes progressive gait decline over past year and had to move out of her house because there are steps. Was using cane and now ambulating with walker. She describes feeling her legs "giving out" and limited to only ambulating around house. Reports nocturia "every hour" attributed to "kidney problems." Asked to evaluate patient for "worsening lethargy." Today complaining of "blurred vision L eye" and L hemicranial headache with associated photophobia, phonophobia, kinesiophobia, lightheadhedness. Head CT x 2 (reviewed): Mild, diffuse cerebral atrophy with sulcal widening and chronic periventricular ischemic changes. H/H 8.2/25.5 baseline; INR= 2.60; B12= 847%; TSH= 1.81; UA 8/9 (admission) + pseudomonas now UA 10/12 negative - on levaquin PARISH: Cor irregular. No bruits. Reduced neck ROM thoughout. Neg SLR. Neg Prince' s. Neg Ambrocio's. left eye injected. Wearing diaper. NEURO: Alert, responsive. Ox "[facility]" 2018. TRUMP. Poor reversals. 2/3 recall @ 3 min. + glabella. CNII-CNXII: Resists eye opening but EOM's appear full. No obvious field cut. Min R facial. Gag ok. Motor: No drift but posturing of fingers. + Cogwheeling L>R. Decreased LEVAR's. Strength normal. Reflexes normal, with cross adduction at knees and present AJs. B/L Babinski with triple flexion on L. R leg rests everted. Coordination: No obvious FTN dystaxia. Sensation: Reduced vibration to ankles. Gait: deferred at patients request. Impression: 1.Mild B/L cerebral dysfunction (OMS, likely chronic) c/w Alzheimer' s disease or microvascular 2. Parkinsonism, possibly early Parkinson's Disease- may contribute to recent, progressive. gait decline 3. Possible cervical Myelopathy 4. Lethargy most likely due to Toxic-metabolic encephalopathy ( TME)- improving. Patient improving. SUGGEST: MRI of Brain and Cervical spine (both C-) Check B12, TSH, RPR, ESR, CRP PT for gait with walker Thank you very much, Gustavo Mccormack MD
[2018-10-14] MEDS: BUDESONIDE/FORMETEROL FUMARATE 160/4.5 mcg INHALER IH SCH (11:19)
[2018-10-14] MEDS: SODIUM BICARBONATE 650 MG TABLET PO SCH (11:19)
[2018-10-14] MEDS: amLODIPine BESYLATE 10 MG TABLET (FP) PO SCH (11:19)
[2018-10-14] MEDS: LABETALOL HCL 200 MG TABLET (FP) PO SCH ×2 (11:19→22:26)
[2018-10-14] MEDS: PANTOPRAZOLE 40 MG TABLET (FP) PO SCH (11:19)
[2018-10-14] MEDS: CHOLECALCIFEROL (VIT D3) 1,000 UNIT (25 MCG) TABLET PO SCH (11:19)
[2018-10-14] MEDS: FUROSEMIDE 40 MG/4 ML INJECTABLE VIAL IVPUSH SCH (11:21)
[2018-10-14] MEDS: ARTIFICIAL TEARS (POLYVINYL ALCOHOL) OPTH DROPS OU PRN (11:22)
[2018-10-14] MEDS: ERYTHROMYCIN 0.5% OPHTHALMIC OINTMENT 3.5 GM TUBE OU SCH (11:23)
--- NOTE | 2018-10-14 11:28 | PN ---
Progress Note, Physician History of Present Illness: pulmonary comfortable,still not mentally back to baseline,-resp distress - Current Medication List Current Medications: Active Medications Albuterol Sulfate (Ventolin 0.083% Nebulizer Soln -) 1 amp NEB Q4H PRN PRN Reason: SHORT OF BREATH/WHEEZING Last Admin: 10/12/18 11:52 Dose: 1 amp Albuterol/Ipratropium (Duoneb -) 1 amp NEB Q6H PRN PRN Reason: SHORTNESS OF BREATH Last Admin: 10/14/18 07:41 Dose: 1 amp Amlodipine Besylate (Norvasc -) 10 mg PO DAILY [facility] Last Admin: 10/14/18 11:19 Dose: 10 mg Artificial Tears (Artificial Tears) 1 drop OU BID PRN PRN Reason: DRY EYES Last Admin: 10/14/18 11:22 Dose: 1 drop Atorvastatin Calcium (Lipitor -) 20 mg PO HS [facility] Budesonide/Formoterol Fumarate (Symbicort 160/4.5mcg -) 2 puff IH BID [facility] Last Admin: 10/14/18 11:19 Dose: 2 puff Calcium Acetate (Phoslo -) 667 mg PO TIDCM [facility] Last Admin: 10/14/18 08:05 Dose: 667 mg Cholecalciferol (Vitamin D3 -) 5,000 unit PO DAILY [facility] Last Admin: 10/14/18 11:19 Dose: 5,000 unit Erythromycin (Erythromycin 0.5% Eye Ointment) 1 applic OU DAILY [facility] Last Admin: 10/14/18 11:23 Dose: 1 applic Furosemide (Lasix Injection -) 80 mg IVPUSH DAILY [facility] Last Admin: 10/14/18 11:21 Dose: 80 mg Hydralazine HCl (Apresoline -) 100 mg PO TID [facility] Last Admin: 10/14/18 06:42 Dose: 100 mg Levofloxacin (Levaquin 250 Mg Premixed Ivpb -) 250 mg in 50 mls @ 50 mls/hr IVPB Q2D@1000 [facility]; Protocol Last Admin: 10/13/18 12:12 Dose: 50 mls/hr Insulin Aspart (Novolog Vial Sliding Scale -) 1 vial SQ [facility]; Protocol Last Admin: 10/14/18 06:42 Dose: Not Given Insulin Detemir (Levemir Vial) 10 units SQ [facility] Last Admin: 10/13/18 23:09 Dose: Not Given Labetalol HCl (Normodyne -) 200 mg PO BID [facility] Last Admin: 10/14/18 11:19 Dose: 200 mg Pantoprazole Sodium (Protonix -) 40 mg PO DAILY [facility] Last Admin: 10/14/18 11:19 Dose: 40 mg Sodium Bicarbonate (Sodium Bicarbonate -) 650 mg PO DAILY [facility] Last Admin: 10/14/18 11:19 Dose: 650 mg Warfarin Sodium (Coumadin -) 7.5 mg PO DAILY@1800 [facility] Last Admin: 10/13/18 23:09 Dose: 7.5 mg - Objective Vital Signs: Vital Signs Temperature 98.1 F 10/14/18 06:00 Pulse Rate 72 10/14/18 06:00 Respiratory Rate 20 10/14/18 06:00 Blood Pressure 147/59 L 10/14/18 06:00 O2 Sat by Pulse Oximetry (%) 99 10/14/18 07:40 Constitutional: Yes: Well Nourished, Calm Eyes: Yes: WNL HENT: Yes: WNL Neck: Yes: WNL Cardiovascular: Yes: Regular Rate and Rhythm, S1, S2 Respiratory: Yes: Diminished Gastrointestinal: Yes: Normal Bowel Sounds, Soft Extremities: Yes: WNL Edema: No Labs: CBC, BMP 10/14/18 05:53 10/14/18 05:53 INR, PTT INR 2.60 (0.83-1.09) H 10/13/18 19:00 Laboratory Tests 10/13/18 22:05 ABG pH 7.42 ABG pCO2 at Pt Temp 45.3 H ABG pO2 at Pt Temp 51.2 L ABG HCO3 28.8 H ABG O2 Sat (Measured) 86.8 L Problem List - Problems (1) Lethargy Code(s): R53.83 - OTHER FATIGUE (2) CHF (congestive heart failure) Code(s): I50.9 - HEART FAILURE, UNSPECIFIED Qualifiers: Heart failure type: diastolic (3) Anemia Code(s): D64.9 - ANEMIA, UNSPECIFIED Qualifiers: Chronic kidney disease stage: stage 4 (severe) (4) Afib Code(s): I48.91 - UNSPECIFIED ATRIAL FIBRILLATION Qualifiers: Atrial fibrillation type: paroxysmal Qualified Code(s): I48.0 - Paroxysmal atrial fibrillation (5) CAD (coronary artery disease) Code(s): I25.10 - ATHSCL HEART DISEASE OF [place] CORONARY ARTERY W/O ANG PCTRS (6) CKD (chronic kidney disease) Code(s): N18.9 - CHRONIC KIDNEY DISEASE, UNSPECIFIED (7) COPD (chronic obstructive pulmonary disease) Code(s): J44.9 - CHRONIC OBSTRUCTIVE PULMONARY DISEASE, UNSPECIFIED Qualifiers: COPD type: emphysema Emphysema type: unspecified Qualified Code(s): J43.9 - Emphysema, unspecified (8) Hyperlipidemia Code(s): E78.5 - HYPERLIPIDEMIA, UNSPECIFIED Qualifiers: Hyperlipidemia type: pure hypercholesterolemia Qualified Code(s): E78.00 - Pure hypercholesterolemia, unspecified; E78.0 - Pure hypercholesterolemia (9) Hypertension Code(s): I10 - ESSENTIAL (PRIMARY) HYPERTENSION Qualifiers: Hypertension type: essential hypertension Qualified Code(s): I10 - Essential (primary) hypertension (10) IDDM (insulin dependent diabetes mellitus) Code(s): E11.9 - TYPE 2 DIABETES MELLITUS WITHOUT COMPLICATIONS; Z79.4 - GROUP HOME (CURRENT) USE OF INSULIN (11) Pulmonary hypertension Code(s): I27.2 - OTHER SECONDARY PULMONARY HYPERTENSION * DO NOT USE * (12) Shortness of breath Code(s): R06.02 - SHORTNESS OF BREATH Assessment/Plan IMP DYSPNEA COPD ON HOME O2, NOCTURNAL BIPAP CHF PULMONARY HTN ALTERED MENTAL STATUS SLOWLY IMPROVING AFIB S/P ABLATION ON AC H/O DVT DM CKD ANEMIA RECENT PNEUMONIA PLAN INHALED BRONCHODILATORS O2 BIPAP AT NIGHT AND PRN LASIX MONITOR LYEDENILSON,RENAL FUNCTION MONITOR H+H NEURO F/U DR GOULD Problem List - Problems (1) Lethargy Code(s): R53.83 - OTHER FATIGUE (2) CHF (congestive heart failure) Code(s): I50.9 - HEART FAILURE, UNSPECIFIED Qualifiers: Heart failure type: diastolic (3) Anemia Code(s): D64.9 - ANEMIA, UNSPECIFIED Qualifiers: Chronic kidney disease stage: stage 4 (severe) (4) Afib Code(s): I48.91 - UNSPECIFIED ATRIAL FIBRILLATION Qualifiers: Atrial fibrillation type: paroxysmal Qualified Code(s): I48.0 - Paroxysmal atrial fibrillation (5) CAD (coronary artery disease) Code(s): I25.10 - ATHSCL HEART DISEASE OF [place] CORONARY ARTERY W/O ANG PCTRS (6) CKD (chronic kidney disease) Code(s): N18.9 - CHRONIC KIDNEY DISEASE, UNSPECIFIED (7) COPD (chronic obstructive pulmonary disease) Code(s): J44.9 - CHRONIC OBSTRUCTIVE PULMONARY DISEASE, UNSPECIFIED Qualifiers: COPD type: emphysema Emphysema type: unspecified Qualified Code(s): J43.9 - Emphysema, unspecified (8) Hyperlipidemia Code(s): E78.5 - HYPERLIPIDEMIA, UNSPECIFIED Qualifiers: Hyperlipidemia type: pure hypercholesterolemia Qualified Code(s): E78.00 - Pure hypercholesterolemia, unspecified; E78.0 - Pure hypercholesterolemia (9) Hypertension Code(s): I10 - ESSENTIAL (PRIMARY) HYPERTENSION Qualifiers: Hypertension type: essential hypertension Qualified Code(s): I10 - Essential (primary) hypertension (10) IDDM (insulin dependent diabetes mellitus) Code(s): E11.9 - TYPE 2 DIABETES MELLITUS WITHOUT COMPLICATIONS; Z79.4 - [employer] (CURRENT) USE OF INSULIN (11) Pulmonary hypertension Code(s): I27.2 - OTHER SECONDARY PULMONARY HYPERTENSION * DO NOT USE * (12) Shortness of breath Code(s): R06.02 - SHORTNESS OF BREATH
--- NOTE | 2018-10-14 15:21 | PN ---
Progress Note, Physician History of Present Illness: seen and examined today in nad. more awake alert and oriented today. feeling a little better. - Current Medication List Current Medications: Active Medications Albuterol/Ipratropium (Duoneb -) 1 amp NEB Q6H PRN PRN Reason: SHORTNESS OF BREATH Last Admin: 10/14/18 07:41 Dose: 1 amp Amlodipine Besylate (Norvasc -) 10 mg PO DAILY [facility] Last Admin: 10/14/18 11:19 Dose: 10 mg Arformoterol Tartrate (Brovana (Restricted To Pulmonology/Resp) -) 1 amp NEB RBID [facility] Artificial Tears (Artificial Tears) 1 drop OU BID PRN PRN Reason: DRY EYES Last Admin: 10/14/18 11:22 Dose: 1 drop Atorvastatin Calcium (Lipitor -) 20 mg PO HS [facility] Calcium Acetate (Phoslo -) 667 mg PO TIDCM [facility] Last Admin: 10/14/18 12:44 Dose: 667 mg Cholecalciferol (Vitamin D3 -) 5,000 unit PO DAILY [facility] Last Admin: 10/14/18 11:19 Dose: 5,000 unit Erythromycin (Erythromycin 0.5% Eye Ointment) 1 applic OU DAILY [facility] Last Admin: 10/14/18 11:23 Dose: 1 applic Furosemide (Lasix Injection -) 80 mg IVPUSH DAILY [facility] Last Admin: 10/14/18 11:21 Dose: 80 mg Hydralazine HCl (Apresoline -) 100 mg PO TID [facility] Last Admin: 10/14/18 14:32 Dose: 100 mg Levofloxacin (Levaquin 250 Mg Premixed Ivpb -) 250 mg in 50 mls @ 50 mls/hr IVPB Q2D@1000 [facility]; Protocol Last Admin: 10/13/18 12:12 Dose: 50 mls/hr Insulin Aspart (Novolog Vial Sliding Scale -) 1 vial SQ ACHS [facility]; Protocol Last Admin: 10/14/18 12:45 Dose: 2 units Insulin Detemir (Levemir Vial) 10 units SQ HS [facility] Last Admin: 10/13/18 23:09 Dose: Not Given Labetalol HCl (Normodyne -) 200 mg PO BID [facility] Last Admin: 10/14/18 11:19 Dose: 200 mg Pantoprazole Sodium (Protonix -) 40 mg PO DAILY [facility] Last Admin: 10/14/18 11:19 Dose: 40 mg Sodium Bicarbonate (Sodium Bicarbonate -) 650 mg PO DAILY [facility] Last Admin: 10/14/18 11:19 Dose: 650 mg Warfarin Sodium (Coumadin -) 7.5 mg PO DAILY@1800 [facility] Last Admin: 10/13/18 23:09 Dose: 7.5 mg - Objective Vital Signs: Vital Signs Temperature 98.1 F 10/14/18 06:00 Pulse Rate 74 10/14/18 14:30 Respiratory Rate 20 10/14/18 06:00 Blood Pressure 135/55 L 10/14/18 14:30 O2 Sat by Pulse Oximetry (%) 99 10/14/18 07:40 Constitutional: Yes: No Distress, Calm Eyes: Yes: Conjunctiva Clear, EOM Intact, PERRL HENT: Yes: Atraumatic, Normocephalic Neck: Yes: Supple, Trachea Midline Cardiovascular: Yes: Regular Rate and Rhythm, S1, S2. No: Bradycardia, Tachycardia, Pulse Irregular, Bruit, JVD, Gallop, Murmur, Rub, S3, S4, Varicosities Respiratory: Yes: Regular, Diminished, On Nasal O2. No: Rales, Rhonchi, SOB, Wheezes Gastrointestinal: Yes: Normal Bowel Sounds, Soft. No: Distention, Tenderness Edema: Yes Neurological: Yes: Alert, Oriented Psychiatric: Yes: Alert, Oriented Labs: CBC, BMP 10/14/18 05:53 10/14/18 05:53 INR, PTT INR 2.60 (0.83-1.09) H 10/13/18 19:00 - ....Imaging Chest X-ray: Report Reviewed, Image Reviewed EKG: Report Reviewed, Image Reviewed Other: Report Reviewed, Image Reviewed (tele-nsr) Assessment/Plan 77 year old woman with a history of hypertension, hyperlipidemia, heavy smoking , PAD with claudication, diabetes type II, atrial flutter status post ablation several years ago, followed by paroxysmal atrial fibrillation more recently, DVT 2016, on full AC for Afib, CKD, severe depression, chronic fatigue, chronic dyspnea on exertion of unclear etiology, multiple admissions for sob/hypoxia with clear lungs and clear lung imaging, prior outpatient V/Q showing low prob PE, with ventilation worse than perfusion, has been seen by multiple pulmonologists, has not improved with bronchodilators or inhaled corticosteroids , h/o R heart cath at [facility] years ago showing no sig pulm htn, prior Admisson [facility] 04/2017 with elevated troponin but nuclear stress test showed no ischemia and echo showed normal LV systolic function. Never had [facility] due to CKD and risk of VIKAS. Again admitted to [facility] 12/14/17 with chest pain and sob, elevated troponins up to 3's with normal CK level, normal LV systolic function on echo again. Now admitted with sob, lethargy, ams. pt seen and examined today in nad. awake but not alert, somnolent. appears somewhat confused. Denies current sob. states she feels tired. SOB-multifactorial due to COPD and component of acute on chronic diastolic CHF -gradually improving -recent echo 08/23/18 showed normal LVEF, Grade I diastolic dysfunction, mild valvular abnl, similar to prior echos -receiving IV Lasix -transition to po Torsemide when possible -monitor strict I/Os, daily weights, bun/creat, and electrolytes and replete as needed -pulm/renal following Arrhythmia-h/o aflutter s/p ablation, h/o afib -currently NSR -continue current medications for now -on labetalol currently, was on diltiazem in the past -INR goal 2-3
--- NOTE | 2018-10-14 15:44 | PN ---
Physical Exam: SUBJECTIVE: Patient seen and examined at the bedside this AM. Pt not as altered or lethargic as yesterday, new onset left eye blurred vision with conjunctival injection without any purulence. OBJECTIVE: Vital Signs Period Temp Pulse Resp BP Sys/Renee Pulse Ox Last 24 Hr 97.8 F-98.6 F 71-74 20-20 135-159/50-68 97-99 GENERAL: The patient is awake, less lethargic answering questions, AOx3. HEAD: Normal with no signs of trauma. NECK: supple. LUNGS: Breath sounds equal, minimal crackles less congested b/l. HEART: Regular rate and rhythm, S1, S2 without murmur, rub or gallop. ABDOMEN: Soft, nontender, nondistended, no guarding, no rebound. EXTREMITIES: 2+ pulses, warm, well-perfused, 1+ edema, weakness due to heaviness not neurologic NEUROLOGICAL: Cranial nerves II through XII grossly intact. Normal speech, gait not observed. PSYCH: Normal mood, normal affect. SKIN: Warm, dry, no rashes or lesions noted Laboratory Results - last 24 hr 10/13/18 10/13/18 10/13/18 16:32 19:00 22:05 WBC RBC Hgb Hct MCV MCH MCHC RDW Plt Count MPV Absolute Neuts (auto) Neutrophils % Lymphocytes % Monocytes % Eosinophils % Basophils % Nucleated RBC % PT with INR 31.00 H INR 2.60 H Anticoagulation Therapy No Result Required. Puncture Site Right radial ABG pH 7.42 ABG pCO2 at Pt Temp 45.3 H ABG pO2 at Pt Temp 51.2 L ABG HCO3 28.8 H ABG O2 Sat (Measured) 86.8 L ABG O2 Content 10.3 L ABG Base Excess 4.3 H Cr Test Positive O2 Delivery Device No Result Required. Oxygen Flow Rate No Result Required. Vent Mode No Result Required. Vent Rate No Result Required. Mechanical Rate No Result Required. Pressure Support Vent No Result Required. Sodium Potassium Chloride Carbon Dioxide Anion Gap BUN Creatinine Est GFR (CKD-EPI)AfAm Est GFR (CKD-EPI)NonAf POC Glucometer 110 Random Glucose Calcium Total Bilirubin AST ALT Alkaline Phosphatase Total Protein Albumin 10/13/18 10/14/18 10/14/18 23:03 05:46 05:53 WBC 5.1 RBC 2.64 L Hgb 8.5 L Hct 26.2 L MCV 99.0 H MCH 32.3 MCHC 32.6 RDW 15.8 H Plt Count 247 MPV 8.9 Absolute Neuts (auto) 2.8 Neutrophils % 54.2 Lymphocytes % 31.4 D Monocytes % 12.2 H Eosinophils % 1.1 D Basophils % 1.1 Nucleated RBC % 0 PT with INR INR Anticoagulation Therapy Puncture Site ABG pH ABG pCO2 at Pt Temp ABG pO2 at Pt Temp ABG HCO3 ABG O2 Sat (Measured) ABG O2 Content ABG Base Excess Cr Test O2 Delivery Device Oxygen Flow Rate Vent Mode Vent Rate Mechanical Rate Pressure Support Vent Sodium Potassium Chloride Carbon Dioxide Anion Gap BUN Creatinine Est GFR (CKD-EPI)AfAm Est GFR (CKD-EPI)NonAf POC Glucometer 137 139 Random Glucose Calcium Total Bilirubin AST ALT Alkaline Phosphatase Total Protein Albumin 10/14/18 10/14/18 05:53 12:40 WBC RBC Hgb Hct MCV MCH MCHC RDW Plt Count MPV Absolute Neuts (auto) Neutrophils % Lymphocytes % Monocytes % Eosinophils % Basophils % Nucleated RBC % PT with INR INR Anticoagulation Therapy Puncture Site ABG pH ABG pCO2 at Pt Temp ABG pO2 at Pt Temp ABG HCO3 ABG O2 Sat (Measured) ABG O2 Content ABG Base Excess Cr Test O2 Delivery Device Oxygen Flow Rate Vent Mode Vent Rate Mechanical Rate Pressure Support Vent Sodium 141 Potassium 4.2 Chloride 101 Carbon Dioxide 31 Anion Gap 8 BUN 48.9 H Creatinine 3.8 H Est GFR (CKD-EPI)AfAm 12.35 Est GFR (CKD-EPI)NonAf 10.66 POC Glucometer 197 Random Glucose 137 H Calcium 8.8 Total Bilirubin 0.5 AST 15 ALT 16 Alkaline Phosphatase 47 Total Protein 5.7 L Albumin 2.8 L Active Medications Generic Name Dose Route Start Last Admin Trade Name Freq PRN Reason Stop Dose Admin Albuterol/Ipratropium 1 amp 10/08/18 21:22 10/14/18 07:41 Duoneb - NEB 1 amp Q6H PRN Administration SHORTNESS OF BREATH Amlodipine Besylate 10 mg 10/09/18 10:00 10/14/18 11:19 Norvasc - PO 10 mg DAILY [facility]MA Administration Arformoterol Tartrate 1 amp 10/14/18 20:00 Brovana (Restricted To Pulmonology/Resp) - NEB RBID [facility]MA Artificial Tears 1 drop 10/14/18 10:43 10/14/18 11:22 Artificial Tears OU 1 drop BID PRN Administration DRY EYES Atorvastatin Calcium 20 mg 10/14/18 22:00 Lipitor - PO HS [facility] Calcium Acetate 667 mg 10/09/18 08:00 10/14/18 12:44 Phoslo - PO 667 mg TIDCM [facility] Administration Cholecalciferol 5,000 unit 10/09/18 10:00 10/14/18 11:19 Vitamin D3 - PO 5,000 unit DAILY [facility] Administration Erythromycin 1 applic 10/14/18 10:45 10/14/18 11:23 Erythromycin 0.5% Eye Ointment OU 1 applic DAILY [facility] Administration Furosemide 80 mg 10/11/18 11:00 10/14/18 11:21 Lasix Injection - IVPUSH 80 mg DAILY [facility] Administration Hydralazine HCl 100 mg 10/08/18 22:00 10/14/18 14:32 Apresoline - PO 100 mg TID [facility] Administration Levofloxacin 250 mg in 50 mls @ 50 mls/hr 10/13/18 10:00 10/13/18 12:12 Levaquin 250 Mg Premixed Ivpb - IVPB 50 mls/hr Q2D@1000 [facility] Administration Protocol Insulin Aspart 1 vial 10/09/18 07:00 10/14/18 12:45 Novolog Vial Sliding Scale - SQ 2 units ACHS [facility] Administration Protocol Insulin Detemir 10 units 10/12/18 13:44 10/13/18 23:09 Levemir Vial SQ Not Given HS [facility] Labetalol HCl 200 mg 10/08/18 22:00 10/14/18 11:19 Normodyne - PO 200 mg BID [facility] Administration Pantoprazole Sodium 40 mg 10/09/18 10:00 10/14/18 11:19 Protonix - PO 40 mg DAILY [facility] Administration Sodium Bicarbonate 650 mg 10/13/18 10:00 10/14/18 11:19 Sodium Bicarbonate - PO 650 mg DAILY [facility] Administration Warfarin Sodium 7.5 mg 10/09/18 18:00 10/13/18 23:09 Coumadin - PO 7.5 mg DAILY@1800 [facility] Administration ASSESSMENT/PLAN: Images: - CT scan showed periventricular subcortical chronic microvascular ischemic changes seen. No change from prior one. Pt is a 77 yo F wiht pMhx of obesity, HTN, DM, COPD on home nightly CPAP, CKD stage IV-5 (b/l SCr: 3.4-3.6) presented with reported mentation changes and lethargy in the presence of anasarca. #COPD/TREVON vs Pickwickian syndrome : - c/w symbicort daily & duonebs as needed, resume nightly BIPAP or PRN BIPAP #Altered mental status possible depression component to this. - As per neuro, she may have mild b/l cerebral dysfunction from the microvascular ischemic changes on CT, with early signs of parkinsons, should get a MRI of cervical spine and brain to r/o cervical myelopathy. - Lethargy has been resolving but most likely 2/2 Toxic-metabolic encephalopathy - may be some alzheimers component to this, ordered TSH. #Acute noninfectious conjunctivitis - artifical tears - erythromycin ointment - optho consulted #UTI - IV levaquin 500 daily and will switch to 250 q48 hrs tomorrow. #AFib/Flutter hx: - will continue the current meds labetalol and warfarin - Per cardio (Dr. Newton), pt in NSR no need for rpt echo, pt has hx of Aflutter s/p ablation, h/o AFib. #CKD stage V - on lasix 80mg daily, will switch to torsemide PO tm. - not requiring IT RISK ADVISOR - c/w 650 BID PO NaHCo3, phoslo 650 TID #HTN/Acute on chronic CHF - per cardio, c/w lasix, amlodipine, labetalol, hydralazine as prescribed at home #DM - levemir 12 units @ bedtime and correction dose insulin to optimize glucose control. DVT PPx: pt on systemic AC #FEN: - Continue to monitor lytes - continue no fluids. - Low sodium, low phos, Low potassium & moderate carb diet. Visit type - Emergency Visit Emergency Visit: Yes ED Registration Date: 10/08/18 Care time: The patient presented to the Emergency Department on the above date and was hospitalized for further evaluation of their emergent condition. - New Patient This patient is new to me today: No - Critical Care Critical Care patient: No - Discharge Referral Referred to [facility] Med [facility] No ATTENDING PHYSICIAN STATEMENT I saw and evaluated the patient. I reviewed the resident's note and discussed the case with the resident. I agree with the resident's findings and plan as documented. SUBJECTIVE: OBJECTIVE: ASSESSMENT AND PLAN:
--- NOTE | 2018-10-14 15:48 | PN ---
Progress Note (short form) - Note Progress Note: Renal follow up for CKD Pt seen and examined at the bedside awake and alert today denies sob, chest pain, abd pain making urine Vital Signs Temperature 98.1 F 10/14/18 06:00 Pulse Rate 74 10/14/18 14:30 Respiratory Rate 20 10/14/18 06:00 Blood Pressure 135/55 L 10/14/18 14:30 O2 Sat by Pulse Oximetry (%) 97 10/14/18 15:43 Intake & Output 10/11/18 10/12/18 10/13/18 10/14/18 23:59 23:59 23:59 23:59 Intake Total 270 710 175 Balance 270 710 175 Weight 95.436 kg NAD awake and alert RRR Dec BS no LE edema CBC, BMP 10/14/18 05:53 10/14/18 05:53 Current Medications Albuterol/Ipratropium (Duoneb -) 1 amp NEB Q6H PRN PRN Reason: SHORTNESS OF BREATH Last Admin: 10/14/18 07:41 Dose: 1 amp Amlodipine Besylate (Norvasc -) 10 mg PO DAILY [facility] Last Admin: 10/14/18 11:19 Dose: 10 mg Arformoterol Tartrate (Brovana (Restricted To Pulmonology/Resp) -) 1 amp NEB RBID [facility] Artificial Tears (Artificial Tears) 1 drop OU BID PRN PRN Reason: DRY EYES Last Admin: 10/14/18 11:22 Dose: 1 drop Atorvastatin Calcium (Lipitor -) 20 mg PO HS [facility] Calcium Acetate (Phoslo -) 667 mg PO TIDCM [facility] Last Admin: 10/14/18 12:44 Dose: 667 mg Cholecalciferol (Vitamin D3 -) 5,000 unit PO DAILY [facility] Last Admin: 10/14/18 11:19 Dose: 5,000 unit Erythromycin (Erythromycin 0.5% Eye Ointment) 1 applic OU DAILY [facility] Last Admin: 10/14/18 11:23 Dose: 1 applic Furosemide (Lasix Injection -) 80 mg IVPUSH DAILY [facility] Last Admin: 10/14/18 11:21 Dose: 80 mg Hydralazine HCl (Apresoline -) 100 mg PO TID [facility] Last Admin: 10/14/18 14:32 Dose: 100 mg Levofloxacin (Levaquin 250 Mg Premixed Ivpb -) 250 mg in 50 mls @ 50 mls/hr IVPB Q2D@1000 [facility]; Protocol Last Admin: 10/13/18 12:12 Dose: 50 mls/hr Insulin Aspart (Novolog Vial Sliding Scale -) 1 vial SQ ACHS [facility]; Protocol Last Admin: 10/14/18 12:45 Dose: 2 units Insulin Detemir (Levemir Vial) 10 units SQ HS [facility] Last Admin: 10/13/18 23:09 Dose: Not Given Labetalol HCl (Normodyne -) 200 mg PO BID [facility] Last Admin: 10/14/18 11:19 Dose: 200 mg Pantoprazole Sodium (Protonix -) 40 mg PO DAILY [facility] Last Admin: 10/14/18 11:19 Dose: 40 mg Sodium Bicarbonate (Sodium Bicarbonate -) 650 mg PO DAILY [facility] Last Admin: 10/14/18 11:19 Dose: 650 mg Warfarin Sodium (Coumadin -) 7.5 mg PO DAILY@1800 [facility] Last Admin: 10/13/18 23:09 Dose: 7.5 mg 77 year old woman with history of 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 #CKD stage 4/5, renal function stable #CHF with pulmonary congestion #COPD/Chronic dyspnea #LE edema #Hypertension #Acute on Chronic anemia Renal function stable no emergent indication for [employer]ATOR despite eGFR < 15 Continue IV Lasix to oral torsemide starting tomorrow s/p Aranesp SC for CKD related anemia on 10/11 Mental status is improved today. continue Nebs per pulmonary, BIPAP as needed overall prognosis is guarded Neurology evaluation noted Thank you Tylor Funez DO
--- NOTE | 2018-10-14 16:52 | PN ---
Progress Note, Physician History of Present Illness: patient stable doing well breathing better - Current Medication List Current Medications: Active Medications Albuterol/Ipratropium (Duoneb -) 1 amp NEB Q6H PRN PRN Reason: SHORTNESS OF BREATH Last Admin: 10/14/18 07:41 Dose: 1 amp Amlodipine Besylate (Norvasc -) 10 mg PO DAILY [facility] Last Admin: 10/14/18 11:19 Dose: 10 mg Arformoterol Tartrate (Brovana (Restricted To Pulmonology/Resp) -) 1 amp NEB RBID [facility] Artificial Tears (Artificial Tears) 1 drop OU BID PRN PRN Reason: DRY EYES Last Admin: 10/14/18 11:22 Dose: 1 drop Atorvastatin Calcium (Lipitor -) 20 mg PO HS [facility] Calcium Acetate (Phoslo -) 667 mg PO TIDCM [facility] Last Admin: 10/14/18 12:44 Dose: 667 mg Cholecalciferol (Vitamin D3 -) 5,000 unit PO DAILY [facility] Last Admin: 10/14/18 11:19 Dose: 5,000 unit Erythromycin (Erythromycin 0.5% Eye Ointment) 1 applic OU DAILY [facility] Last Admin: 10/14/18 11:23 Dose: 1 applic Hydralazine HCl (Apresoline -) 100 mg PO TID [facility] Last Admin: 10/14/18 14:32 Dose: 100 mg Levofloxacin (Levaquin 250 Mg Premixed Ivpb -) 250 mg in 50 mls @ 50 mls/hr IVPB Q2D@1000 [facility]; Protocol Last Admin: 10/13/18 12:12 Dose: 50 mls/hr Insulin Aspart (Novolog Vial Sliding Scale -) 1 vial SQ [facility]; Protocol Last Admin: 10/14/18 12:45 Dose: 2 units Insulin Detemir (Levemir Vial) 10 units SQ [facility] Last Admin: 10/13/18 23:09 Dose: Not Given Labetalol HCl (Normodyne -) 200 mg PO BID [facility] Last Admin: 10/14/18 11:19 Dose: 200 mg Pantoprazole Sodium (Protonix -) 40 mg PO DAILY [facility] Last Admin: 10/14/18 11:19 Dose: 40 mg Sodium Bicarbonate (Sodium Bicarbonate -) 650 mg PO DAILY [facility] Last Admin: 10/14/18 11:19 Dose: 650 mg Torsemide (Demadex -) 40 mg PO DAILY [facility] Warfarin Sodium (Coumadin -) 7.5 mg PO DAILY@1800 [facility] Last Admin: 10/13/18 23:09 Dose: 7.5 mg - Objective Vital Signs: Vital Signs Temperature 98.1 F 10/14/18 06:00 Pulse Rate 74 10/14/18 14:30 Respiratory Rate 20 10/14/18 06:00 Blood Pressure 135/55 L 10/14/18 14:30 O2 Sat by Pulse Oximetry (%) 97 10/14/18 15:43 Constitutional: Yes: Calm, Mild Distress Cardiovascular: Yes: S1, S2 Respiratory: Yes: On Nasal O2, Poor Air Entry Gastrointestinal: Yes: Normal Bowel Sounds, Soft Musculoskeletal: Yes: WNL Extremities: Yes: WNL Neurological: Yes: Alert, Oriented Psychiatric: Yes: Alert, Oriented Labs: CBC, BMP 10/14/18 05:53 10/14/18 05:53 INR, PTT INR 2.60 (0.83-1.09) H 10/13/18 19:00 Assessment/Plan Problem List - Problems (1) Lethargy Code(s): R53.83 - OTHER FATIGUE (2) Acute on chronic renal insufficiency Code(s): N28.9 - DISORDER OF KIDNEY AND URETER, UNSPECIFIED; N18.9 - CHRONIC KIDNEY DISEASE, UNSPECIFIED (3) CHF (congestive heart failure) Code(s): I50.9 - HEART FAILURE, UNSPECIFIED Qualifiers: Heart failure type: diastolic (4) Anemia Code(s): D64.9 - ANEMIA, UNSPECIFIED Qualifiers: Chronic kidney disease stage: stage 4 (severe) (5) Afib Code(s): I48.91 - UNSPECIFIED ATRIAL FIBRILLATION Qualifiers: Atrial fibrillation type: paroxysmal Qualified Code(s): I48.0 - Paroxysmal atrial fibrillation (6) CAD (coronary artery disease) Code(s): I25.10 - ATHSCL HEART DISEASE OF [place] CORONARY ARTERY W/O ANG PCTRS (7) Hypertension Code(s): I10 - ESSENTIAL (PRIMARY) HYPERTENSION Qualifiers: Hypertension type: essential hypertension Qualified Code(s): I10 - Essential (primary) hypertension (8) Type 2 diabetes mellitus Code(s): E11.9 - TYPE 2 DIABETES MELLITUS WITHOUT COMPLICATIONS Qualifiers: Diabetes mellitus complication status: with circulatory complication (9) Obstructive sleep apnea Code(s): G47.33 - OBSTRUCTIVE SLEEP APNEA (ADULT) (PEDIATRIC) (10) UTI (urinary tract infection) Code(s): N39.0 - URINARY TRACT INFECTION, SITE NOT SPECIFIED plan continue current mgmt no abx resp support rest as per the team
[2018-10-14] MEDS: WARFARIN NA 7.5 MG TABLET (FP) PO SCH (17:30)
--- NOTE | 2018-10-14 18:30 | PN ---
Teaching Attending Note Name of Resident: Sridhar Monk ATTENDING PHYSICIAN STATEMENT I saw and evaluated the patient. I reviewed the resident's note and discussed the case with the resident. I agree with the resident's findings and plan as documented. SUBJECTIVE: Patient is improving, more awake and answering to questions appropiately. OBJECTIVE: Vital Signs Temperature 98.6 F 10/14/18 10:00 Pulse Rate 74 10/14/18 14:30 Respiratory Rate 20 10/14/18 10:00 Blood Pressure 135/55 L 10/14/18 14:30 O2 Sat by Pulse Oximetry (%) 97 10/14/18 15:43 GENERAL: The patient is awake, alert, and oriented, less lethargic today on 2l oxygen HEAD: Normal with no signs of trauma. EYES: PERRL, extraocular movements intact, sclera anicteric, conjunctiva clear. ENT: Ears normal, oropharynx clear without exudates, moist mucous membranes. NECK: Trachea midline, full range of motion, supple. LUNGS: decreased BS BL, no wheezes, no crackles, mild accessory muscle use . HEART: Regular rate and rhythm, S1, S2 without murmur, rub or gallop. ABDOMEN: Soft, nontender, nondistended, normoactive bowel sounds, no guarding, no rebound, no hepatosplenomegaly, no masses. EXTREMITIES: 2+ pulses, warm, well-perfused, no edema. NEUROLOGICAL: Cranial nerves II through XII grossly intact. follows commands, speech is slow , gait not observed. feels weak, PSYCH: Normal mood, normal affect. SKIN: Warm, dry, normal turgor, no rashes or lesions noted CBCD WBC 5.1 K/mm3 (4.0-10.0) 10/14/18 05:53 RBC 2.64 M/mm3 (3.60-5.2) L 10/14/18 05:53 Hgb 8.5 GM/dL (10.7-15.3) L 10/14/18 05:53 Hct 26.2 % (32.4-45.2) L 10/14/18 05:53 MCV 99.0 fl (80-96) H 10/14/18 05:53 MCHC 32.6 g/dl (32.0-36.0) 10/14/18 05:53 RDW 15.8 % (11.6-15.6) H 10/14/18 05:53 Plt Count 247 K/MM3 (134-434) 10/14/18 05:53 MPV 8.9 fl (7.5-11.1) 10/14/18 05:53 CMP Sodium 141 mmol/L (136-145) 10/14/18 05:53 Potassium 4.2 mmol/L (3.5-5.1) 10/14/18 05:53 Chloride 101 mmol/L (98-107) 10/14/18 05:53 Carbon Dioxide 31 mmol/L (21-32) 10/14/18 05:53 Anion Gap 8 MMOL/L (8-16) 10/14/18 05:53 BUN 48.9 mg/dL (7-18) H 10/14/18 05:53 Creatinine 3.8 mg/dL (0.55-1.3) H 10/14/18 05:53 Random Glucose 137 mg/dL (74-106) H 10/14/18 05:53 Calcium 8.8 mg/dL (8.5-10.1) 10/14/18 05:53 Total Bilirubin 0.5 mg/dL (0.2-1) 10/14/18 05:53 AST 15 U/L (15-37) 10/14/18 05:53 ALT 16 U/L (13-61) 10/14/18 05:53 Alkaline Phosphatase 47 U/L (45-117) 10/14/18 05:53 Total Protein 5.7 g/dl (6.4-8.2) L 10/14/18 05:53 Albumin 2.8 g/dl (3.4-5.0) L 10/14/18 05:53 CARDIAC ENZYMES Troponin I < 0.02 ng/ml (0.00-0.05) 10/08/18 15:54 Current Medications Generic Name Dose Route Start Last Admin Trade Name Freq PRN Reason Stop Dose Admin Albuterol/Ipratropium 1 amp 10/08/18 21:22 10/14/18 07:41 Duoneb - NEB 1 amp Q6H PRN Administration SHORTNESS OF BREATH Amlodipine Besylate 10 mg 10/09/18 10:00 10/14/18 11:19 Norvasc - PO 10 mg DAILY [facility] Administration Arformoterol Tartrate 1 amp 10/14/18 20:00 Brovana (Restricted To Pulmonology/Resp) - NEB RBID [facility] Artificial Tears 1 drop 10/14/18 10:43 10/14/18 11:22 Artificial Tears OU 1 drop BID PRN Administration DRY EYES Atorvastatin Calcium 20 mg 10/14/18 22:00 Lipitor - PO HS [facility] Calcium Acetate 667 mg 10/09/18 08:00 10/14/18 17:30 Phoslo - PO 667 mg TIDCM [facility] Administration Cholecalciferol 5,000 unit 10/09/18 10:00 10/14/18 11:19 Vitamin D3 - PO 5,000 unit DAILY [facility] Administration Erythromycin 1 applic 10/14/18 10:45 10/14/18 11:23 Erythromycin 0.5% Eye Ointment OU 1 applic DAILY [facility] Administration Hydralazine HCl 100 mg 10/08/18 22:00 10/14/18 14:32 Apresoline - PO 100 mg TID [facility] Administration Insulin Aspart 1 vial 10/09/18 07:00 10/14/18 17:32 Novolog Vial Sliding Scale - SQ 2 units ACHS [facility] Administration Protocol Insulin Detemir 10 units 10/12/18 13:44 10/13/18 23:09 Levemir Vial SQ Not Given HS [facility] Labetalol HCl 200 mg 10/08/18 22:00 10/14/18 11:19 Normodyne - PO 200 mg BID [facility] Administration Pantoprazole Sodium 40 mg 10/09/18 10:00 10/14/18 11:19 Protonix - PO 40 mg DAILY [facility] Administration Sodium Bicarbonate 650 mg 10/13/18 10:00 10/14/18 11:19 Sodium Bicarbonate - PO 650 mg DAILY [facility] Administration Torsemide 40 mg 10/15/18 10:00 Demadex - PO DAILY [facility] Warfarin Sodium 7.5 mg 10/09/18 18:00 10/14/18 17:30 Coumadin - PO 7.5 mg DAILY@1800 [facility] Administration Home Medications Medication Instructions Recorded Albuterol 0.083% Nebulizer Norma 1 amp NEB Q4H PRN #0 amp 09/15/18 [Ventolin 0.083% Nebulizer Soln -] Albuterol 2.5/Ipratropium 0.5 1 amp NEB QID PRN 30 Days amp 09/15/18 [Duoneb -] Budesonide/Formeterol Fumarate 2 puff IH BID inhaler 09/15/18 [SYMBICORT 160/4.5mcg -] Folic Acid - 1 mg PO DAILY tablet 09/15/18 Furosemide [Lasix -] 40 mg PO DAILY #30 tablet 09/15/18 Insulin (Levemir) [Levemir Vial] 10 units SQ DAILY@0800 #3 ml 09/15/18 Insulin (Levemir) [Levemir Vial] 24 units SQ HS #6 ml 09/15/18 Labetalol HCl [Normodyne -] 200 mg PO BID #60 tablet 09/15/18 Sodium Bicarbonate - 650 mg PO BID tablet 09/15/18 Warfarin Sodium [Coumadin] 7.5 mg PO HS #30 tablet 09/15/18 Hydralazine HCl 100 mg PO TID #90 tablet 09/16/18 Amlodipine Besylate [Norvasc -] 10 mg PO DAILY 10/08/18 Calcium Acetate 667 mg PO TID 10/08/18 Cholecalciferol (Vitamin D3) 5,000 unit PO DAILY 10/08/18 [Vitamin D3] Insulin Sliding Scale [Novolog 1 unit SQ ASDIR PRN 10/08/18 Vial Sliding Scale -] Pantoprazole Sodium 40 mg PO DAILY 10/08/18 Diltiazem HCl [Diltiazem 24Hr ER 120 mg PO DAILY 10/09/18 (Cd)] Microbiology 10/12/18 13:22 Blood - Peripheral Venous Blood Culture - Preliminary NO GROWTH OBTAINED AFTER 48 HOURS, INCUBATION TO CONTINUE FOR 3 DAYS. 10/12/18 13:40 Blood - Peripheral Venous Blood Culture - Preliminary NO GROWTH OBTAINED AFTER 48 HOURS, INCUBATION TO CONTINUE FOR 3 DAYS. 10/12/18 13:45 Urine - Urine Clean Catch Urine Culture - Final Normal Urogenital Annemarie 10/08/18 16:53 Urine - Urine - Catheterized Urine Culture - Final Pseudomonas Aeruginosa Lactose Fermenting Neg Bacilli Head CT: no acute pathology, moderate periventricular and subcortical chronic microvascular ischemic changes. No definite interval change in comparison to a prior CT (10/08/2018) ASSESSMENT AND PLAN: Patient is a 77 year old female with history significant for hypertension, diabetes, atrial fibrillation s/p ablation, on Coumadin, left lower extremity DVT, asthma, COPD presents with lethargy. # Acute lethargy: IMRPROVING DUE TO ACUTE METABOLIC ENCEPHALOPATHY, repeat CT of the head , no changes , consult appreciated, discussed with . # Acute metabolic encephalopathy improving , CT of the head negative. # Acute hypoxemia on oxygen discussed with Dr. Fletcher # Acute UTI s/p Levofloxacin 500 mg once and 250 mg q 48 hrs. # Hx of DVT with therapeutic INR now, will continue coumadin, Echo reviewed. # ARF: 3.7--->4.0-->3.7-->3.8 today avoid nephrotoxic drugs. Nephro on the case , s/p IVF follow with Nephro . continue sodium Bicarb. # Hx of COPD continue symbicort, nebs tx continue. Pulmonary on the case # T2DM continue Levemir # HTN: continue her home meds. DVT Px: Heparin, coumadin discussed with , needs mri of the neck.
[2018-10-14] MEDS: ARFORMOTEROL TARTRATE 15 MCG/2 ML VIAL NEB SCH (20:16)
[2018-10-14] MEDS: ATORVASTATIN CA 20 MG TABLET (FP) PO SCH (22:26)
[2018-10-14] MEDS: INSULIN (LEVEMIR) 100 UNITS/ML UNITS SQ SCH (22:26)
[2018-10-15] MEDS: INSULIN SLIDING SCALE (NOVOLOG) 1 VIAL SQ SCH ×4 (06:35→21:25)
[2018-10-15] MEDS: hydrALAZINE HCL 50 MG TABLET (FP) PO SCH ×3 (06:35→21:14)
[2018-10-15] MEDS: ARFORMOTEROL TARTRATE 15 MCG/2 ML VIAL NEB SCH ×2 (07:25→20:30)
[2018-10-15 07:50] LABS: INR 3.24 (0.83-1.09); PROTHROMBIN TIME (PATIENT) 38.7 SEC (9.7-13.0)
[2018-10-15 07:51] LABS: EOS % 1.2 % (0-4.5); HEMATOCRIT 24.5 % (32.4-45.2); HEMOGLOBIN 8.1 GM/dL (10.7-15.3); LYMPH % 35.3 % (8-40); MEAN CELL VOLUME 97.1 fl (80-96); MEAN PLT VOLUME 8.9 fl (7.5-11.1); MONO % 13.9 % (3.8-10.2); NEUT % 48.6 % (42.8-82.8); PLATELET COUNT 233 K/MM3 (134-434); RBC 2.52 M/mm3 (3.60-5.2); RDW 15.6 % (11.6-15.6); WHITE BLOOD COUNT 5.3 K/mm3 (4.0-10.0)
[2018-10-15 08:00] LABS: BLOOD UREA NITROGEN 54.3 mg/dL (7-18); CALCIUM 8.7 mg/dL (8.5-10.1); MAGNESIUM 1.8 mg/dL (1.8-2.4); PHOSPHOROUS 3.4 mg/dL (2.5-4.9); POTASSIUM 4.1 mmol/L (3.5-5.1)
[2018-10-15] MEDS: CALCIUM ACETATE 667 MG CAPSULE (FP) PO SCH ×3 (08:54→17:19)
--- NOTE | 2018-10-15 10:34 | PN ---
Progress Note, Physician History of Present Illness: pulmonary drowsy,-resp distress - Current Medication List Current Medications: Active Medications Albuterol/Ipratropium (Duoneb -) 1 amp NEB Q6H PRN PRN Reason: SHORTNESS OF BREATH Last Admin: 10/14/18 07:41 Dose: 1 amp Amlodipine Besylate (Norvasc -) 10 mg PO DAILY [facility] Last Admin: 10/14/18 11:19 Dose: 10 mg Arformoterol Tartrate (Brovana (Restricted To Pulmonology/Resp) -) 1 amp NEB RBID [facility] Last Admin: 10/15/18 07:25 Dose: 1 amp Artificial Tears (Artificial Tears) 1 drop OU BID PRN PRN Reason: DRY EYES Last Admin: 10/14/18 11:22 Dose: 1 drop Atorvastatin Calcium (Lipitor -) 20 mg PO HS [facility] Last Admin: 10/14/18 22:26 Dose: 20 mg Calcium Acetate (Phoslo -) 667 mg PO TIDCM [facility] Last Admin: 10/14/18 17:30 Dose: 667 mg Cholecalciferol (Vitamin D3 -) 5,000 unit PO DAILY [facility] Last Admin: 10/14/18 11:19 Dose: 5,000 unit Erythromycin (Erythromycin 0.5% Eye Ointment) 1 applic OU DAILY [facility] Last Admin: 10/14/18 11:23 Dose: 1 applic Hydralazine HCl (Apresoline -) 100 mg PO TID [facility] Last Admin: 10/15/18 06:35 Dose: 100 mg Insulin Aspart (Novolog Vial Sliding Scale -) 1 vial SQ [facility]; Protocol Last Admin: 10/15/18 06:35 Dose: Not Given Insulin Detemir (Levemir Vial) 10 units SQ [facility] Last Admin: 10/14/18 22:26 Dose: 10 units Labetalol HCl (Normodyne -) 200 mg PO BID [facility] Last Admin: 10/14/18 22:26 Dose: 200 mg Pantoprazole Sodium (Protonix -) 40 mg PO DAILY [facility] Last Admin: 10/14/18 11:19 Dose: 40 mg Sodium Bicarbonate (Sodium Bicarbonate -) 650 mg PO DAILY [facility] Last Admin: 10/14/18 11:19 Dose: 650 mg Torsemide (Demadex -) 40 mg PO DAILY [facility] Warfarin Sodium (Coumadin -) 7.5 mg PO DAILY@1800 [facility] Last Admin: 10/14/18 17:30 Dose: 7.5 mg - Objective Vital Signs: Vital Signs Temperature 97.5 F L 10/15/18 06:00 Pulse Rate 62 10/15/18 06:00 Respiratory Rate 20 10/15/18 06:00 Blood Pressure 131/53 L 10/15/18 06:00 O2 Sat by Pulse Oximetry (%) 92 L 10/15/18 07:25 Constitutional: Yes: Well Nourished, Other (droswsy) Eyes: Yes: WNL HENT: Yes: WNL Neck: Yes: WNL Cardiovascular: Yes: Regular Rate and Rhythm, S1, S2 Respiratory: Yes: Diminished, Rales (bibasilar crackles) Gastrointestinal: Yes: Normal Bowel Sounds, Soft Extremities: Yes: WNL Edema: No Labs: CBC, BMP 10/15/18 06:00 10/15/18 06:00 INR, PTT INR 3.24 (0.83-1.09) H 10/15/18 06:00 Problem List - Problems (1) Lethargy Code(s): R53.83 - OTHER FATIGUE (2) CHF (congestive heart failure) Code(s): I50.9 - HEART FAILURE, UNSPECIFIED Qualifiers: Heart failure type: diastolic (3) Anemia Code(s): D64.9 - ANEMIA, UNSPECIFIED Qualifiers: Chronic kidney disease stage: stage 4 (severe) (4) Afib Code(s): I48.91 - UNSPECIFIED ATRIAL FIBRILLATION Qualifiers: Atrial fibrillation type: paroxysmal Qualified Code(s): I48.0 - Paroxysmal atrial fibrillation (5) CAD (coronary artery disease) Code(s): I25.10 - ATHSCL HEART DISEASE OF [place] CORONARY ARTERY W/O ANG PCTRS (6) CKD (chronic kidney disease) Code(s): N18.9 - CHRONIC KIDNEY DISEASE, UNSPECIFIED (7) COPD (chronic obstructive pulmonary disease) Code(s): J44.9 - CHRONIC OBSTRUCTIVE PULMONARY DISEASE, UNSPECIFIED Qualifiers: COPD type: emphysema Emphysema type: unspecified Qualified Code(s): J43.9 - Emphysema, unspecified (8) Hyperlipidemia Code(s): E78.5 - HYPERLIPIDEMIA, UNSPECIFIED Qualifiers: Hyperlipidemia type: pure hypercholesterolemia Qualified Code(s): E78.00 - Pure hypercholesterolemia, unspecified; E78.0 - Pure hypercholesterolemia (9) Hypertension Code(s): I10 - ESSENTIAL (PRIMARY) HYPERTENSION Qualifiers: Hypertension type: essential hypertension Qualified Code(s): I10 - Essential (primary) hypertension (10) IDDM (insulin dependent diabetes mellitus) Code(s): E11.9 - TYPE 2 DIABETES MELLITUS WITHOUT COMPLICATIONS; Z79.4 - LONGTERM (CURRENT) USE OF INSULIN (11) Pulmonary hypertension Code(s): I27.2 - OTHER SECONDARY PULMONARY HYPERTENSION * DO NOT USE * (12) Shortness of breath Code(s): R06.02 - SHORTNESS OF BREATH Assessment/Plan IMP DYSPNEA COPD ON HOME O2, NOCTURNAL BIPAP CHF PULMONARY HTN ALTERED MENTAL STATUS AFIB S/P ABLATION ON AC H/O DVT DM ACUTE ON CKD worsening ANEMIA RECENT PNEUMONIA PLAN INHALED BRONCHODILATORS O2 BIPAP AT NIGHT AND PRN LASIX MONITOR LYTES,RENAL FUNCTION MONITOR H+H NORMAL TRANSFUSION THRESHOLD DR GOULD Problem List - Problems (1) Lethargy Code(s): R53.83 - OTHER FATIGUE (2) CHF (congestive heart failure) Code(s): I50.9 - HEART FAILURE, UNSPECIFIED Qualifiers: Heart failure type: diastolic (3) Anemia Code(s): D64.9 - ANEMIA, UNSPECIFIED Qualifiers: Chronic kidney disease stage: stage 4 (severe) (4) Afib Code(s): I48.91 - UNSPECIFIED ATRIAL FIBRILLATION Qualifiers: Atrial fibrillation type: paroxysmal Qualified Code(s): I48.0 - Paroxysmal atrial fibrillation (5) CAD (coronary artery disease) Code(s): I25.10 - ATHSCL HEART DISEASE OF [place] CORONARY ARTERY W/O ANG PCTRS (6) CKD (chronic kidney disease) Code(s): N18.9 - CHRONIC KIDNEY DISEASE, UNSPECIFIED (7) COPD (chronic obstructive pulmonary disease) Code(s): J44.9 - CHRONIC OBSTRUCTIVE PULMONARY DISEASE, UNSPECIFIED Qualifiers: COPD type: emphysema Emphysema type: unspecified Qualified Code(s): J43.9 - Emphysema, unspecified (8) Hyperlipidemia Code(s): E78.5 - HYPERLIPIDEMIA, UNSPECIFIED Qualifiers: Hyperlipidemia type: pure hypercholesterolemia Qualified Code(s): E78.00 - Pure hypercholesterolemia, unspecified; E78.0 - Pure hypercholesterolemia (9) Hypertension Code(s): I10 - ESSENTIAL (PRIMARY) HYPERTENSION Qualifiers: Hypertension type: essential hypertension Qualified Code(s): I10 - Essential (primary) hypertension (10) IDDM (insulin dependent diabetes mellitus) Code(s): E11.9 - TYPE 2 DIABETES MELLITUS WITHOUT COMPLICATIONS; Z79.4 - LONGTERM (CURRENT) USE OF INSULIN (11) Pulmonary hypertension Code(s): I27.2 - OTHER SECONDARY PULMONARY HYPERTENSION * DO NOT USE * (12) Shortness of breath Code(s): R06.02 - SHORTNESS OF BREATH
[2018-10-15] MEDS: PANTOPRAZOLE 40 MG TABLET (FP) PO SCH (10:53)
[2018-10-15] MEDS: amLODIPine BESYLATE 10 MG TABLET (FP) PO SCH (10:53)
[2018-10-15] MEDS: SODIUM BICARBONATE 650 MG TABLET PO SCH (10:53)
[2018-10-15] MEDS: CHOLECALCIFEROL (VIT D3) 1,000 UNIT (25 MCG) TABLET PO SCH (10:54)
[2018-10-15] MEDS: TORSEMIDE 20 MG TABLET (FP) PO SCH (10:55)
[2018-10-15] MEDS: LABETALOL HCL 200 MG TABLET (FP) PO SCH ×2 (10:55→21:14)
[2018-10-15] MEDS: ARTIFICIAL TEARS (POLYVINYL ALCOHOL) OPTH DROPS OU PRN (10:56)
[2018-10-15] MEDS: ERYTHROMYCIN 0.5% OPHTHALMIC OINTMENT 3.5 GM TUBE OU SCH (10:56)
--- NOTE | 2018-10-15 11:04 | PN ---
Progress Note, Physician History of Present Illness: patient more drowsy today breathing ok - Current Medication List Current Medications: Active Medications Albuterol/Ipratropium (Duoneb -) 1 amp NEB Q6H PRN PRN Reason: SHORTNESS OF BREATH Last Admin: 10/14/18 07:41 Dose: 1 amp Amlodipine Besylate (Norvasc -) 10 mg PO DAILY [facility] Last Admin: 10/15/18 10:53 Dose: 10 mg Arformoterol Tartrate (Brovana (Restricted To Pulmonology/Resp) -) 1 amp NEB RBID [facility] Last Admin: 10/15/18 07:25 Dose: 1 amp Artificial Tears (Artificial Tears) 1 drop OU BID PRN PRN Reason: DRY EYES Last Admin: 10/15/18 10:56 Dose: 1 drop Atorvastatin Calcium (Lipitor -) 20 mg PO HS [facility] Last Admin: 10/14/18 22:26 Dose: 20 mg Calcium Acetate (Phoslo -) 667 mg PO TIDCM [facility] Last Admin: 10/15/18 08:54 Dose: 667 mg Cholecalciferol (Vitamin D3 -) 5,000 unit PO DAILY [facility] Last Admin: 10/15/18 10:54 Dose: 5,000 unit Erythromycin (Erythromycin 0.5% Eye Ointment) 1 applic OU DAILY [facility] Last Admin: 10/15/18 10:56 Dose: 1 applic Hydralazine HCl (Apresoline -) 100 mg PO TID [facility] Last Admin: 10/15/18 06:35 Dose: 100 mg Insulin Aspart (Novolog Vial Sliding Scale -) 1 vial SQ [facility]; Protocol Last Admin: 10/15/18 06:35 Dose: Not Given Insulin Detemir (Levemir Vial) 10 units SQ [facility] Last Admin: 10/14/18 22:26 Dose: 10 units Labetalol HCl (Normodyne -) 200 mg PO BID [facility] Last Admin: 10/15/18 10:55 Dose: 200 mg Pantoprazole Sodium (Protonix -) 40 mg PO DAILY [facility] Last Admin: 10/15/18 10:53 Dose: 40 mg Sodium Bicarbonate (Sodium Bicarbonate -) 650 mg PO DAILY [facility] Last Admin: 10/15/18 10:53 Dose: 650 mg Torsemide (Demadex -) 40 mg PO DAILY [facility] Last Admin: 10/15/18 10:55 Dose: 40 mg Warfarin Sodium (Coumadin -) 7.5 mg PO DAILY@1800 [facility] Last Admin: 10/14/18 17:30 Dose: 7.5 mg - Objective Vital Signs: Vital Signs Temperature 97.5 F L 10/15/18 06:00 Pulse Rate 62 10/15/18 06:00 Respiratory Rate 20 10/15/18 06:00 Blood Pressure 131/53 L 10/15/18 06:00 O2 Sat by Pulse Oximetry (%) 92 L 10/15/18 07:25 Constitutional: Yes: Calm Cardiovascular: Yes: S1, S2 Respiratory: Yes: Regular, CTA Bilaterally Gastrointestinal: Yes: Normal Bowel Sounds, Soft Musculoskeletal: Yes: WNL Extremities: Yes: WNL Neurological: Yes: Other (drowsy) Labs: CBC, BMP 10/15/18 06:00 10/15/18 06:00 INR, PTT INR 3.24 (0.83-1.09) H 10/15/18 06:00 Assessment/Plan Problem List - Problems (1) Lethargy Code(s): R53.83 - OTHER FATIGUE (2) Acute on chronic renal insufficiency Code(s): N28.9 - DISORDER OF KIDNEY AND URETER, UNSPECIFIED; N18.9 - CHRONIC KIDNEY DISEASE, UNSPECIFIED (3) CHF (congestive heart failure) Code(s): I50.9 - HEART FAILURE, UNSPECIFIED Qualifiers: Heart failure type: diastolic (4) Anemia Code(s): D64.9 - ANEMIA, UNSPECIFIED Qualifiers: Chronic kidney disease stage: stage 4 (severe) (5) Afib Code(s): I48.91 - UNSPECIFIED ATRIAL FIBRILLATION Qualifiers: Atrial fibrillation type: paroxysmal Qualified Code(s): I48.0 - Paroxysmal atrial fibrillation (6) CAD (coronary artery disease) Code(s): I25.10 - ATHSCL HEART DISEASE OF [place] CORONARY ARTERY W/O ANG PCTRS (7) Hypertension Code(s): I10 - ESSENTIAL (PRIMARY) HYPERTENSION Qualifiers: Hypertension type: essential hypertension Qualified Code(s): I10 - Essential (primary) hypertension (8) Type 2 diabetes mellitus Code(s): E11.9 - TYPE 2 DIABETES MELLITUS WITHOUT COMPLICATIONS Qualifiers: Diabetes mellitus complication status: with circulatory complication (9) Obstructive sleep apnea Code(s): G47.33 - OBSTRUCTIVE SLEEP APNEA (ADULT) (PEDIATRIC) (10) UTI (urinary tract infection) Code(s): N39.0 - URINARY TRACT INFECTION, SITE NOT SPECIFIED plan continue current mgmt monitor resp status rest as per the team monitor mental status
--- NOTE | 2018-10-15 11:10 | PN ---
Progress Note (short form) - Note Progress Note: NEUROLOGY PROGRESS: Events reviewed and discussed with Dr. Javed and Dr. Fletcher. Intermittently alert and more lethargic- not taking PO well. Still reporting "double vision" but no headache today. Reports headaches can "come and go." Reports last night saw a "woman in blue" in middle of night, but was able to go back to sleep. Previously saw a man when she was living at home. Does note intermittent L hip and L leg pains. Reporting poor appetite at this time. OMS studies: TSH= 2.15, B12= 850 pg% normal WBC=5.6K PARISH: VK=505/80 NEURO: Awakens to name. Slow to respond. When alert: [facility]. "Month 8" "2018" "TRUMP." Recalls ball-pin tree in 5 min. + glabella. Grasps R>L When lethargic, she is clearly more confused. CNII-CNXII: Resists eye opening. Left eye erythematous. Gag ok- swallowing small sips H20 without difficulty. Motor: Symmetric grasps. Min Cogwheeling present L >R, with intermittent rest tremor on right. Reflexes symmetric throughout. Possible B/L Babinski with triple flexion. Gait: Deferred Impression: Mild B/L Cerebral Dysfunction (OMS, chronic) ? Migraines Headaches Mild Extrapyramidal features Suggest: Await ESR, CRP, RPR If lethargic- repeat ABG, reculture blood and urine. Await MRI of brain and C spine (C-) PT eval for gait safety Mobilize pt OOB to chair for meals. Assist with feeds. Thank you very much, Gustavo Mccormack MD
--- NOTE | 2018-10-15 12:28 | PN ---
Progress Note (short form) - Note Progress Note: Renal follow up for CKD Pt seen and examined at the bedside awake and alert today denies any worsening in her baseline sob making urine feels tired Vital Signs Temperature 97.5 F L 10/15/18 06:00 Pulse Rate 62 10/15/18 06:00 Respiratory Rate 20 10/15/18 06:00 Blood Pressure 131/53 L 10/15/18 06:00 O2 Sat by Pulse Oximetry (%) 92 L 10/15/18 07:25 Intake & Output 10/12/18 10/13/18 10/14/18 10/15/18 23:59 23:59 23:59 23:59 Intake Total 710 175 125 10 Balance 710 175 125 10 Weight 95.436 kg NAD awake and alert RRR Dec BS no LE edema CBC, BMP 10/15/18 06:00 10/15/18 06:00 Current Medications Albuterol/Ipratropium (Duoneb -) 1 amp NEB Q6H PRN PRN Reason: SHORTNESS OF BREATH Last Admin: 10/14/18 07:41 Dose: 1 amp Amlodipine Besylate (Norvasc -) 10 mg PO DAILY [facility] Last Admin: 10/15/18 10:53 Dose: 10 mg Arformoterol Tartrate (Brovana (Restricted To Pulmonology/Resp) -) 1 amp NEB RBID [facility] Last Admin: 10/15/18 07:25 Dose: 1 amp Artificial Tears (Artificial Tears) 1 drop OU BID PRN PRN Reason: DRY EYES Last Admin: 10/15/18 10:56 Dose: 1 drop Atorvastatin Calcium (Lipitor -) 20 mg PO HS [facility] Last Admin: 10/14/18 22:26 Dose: 20 mg Calcium Acetate (Phoslo -) 667 mg PO TIDCM [facility] Last Admin: 10/15/18 08:54 Dose: 667 mg Cholecalciferol (Vitamin D3 -) 5,000 unit PO DAILY [facility] Last Admin: 10/15/18 10:54 Dose: 5,000 unit Erythromycin (Erythromycin 0.5% Eye Ointment) 1 applic OU DAILY [facility] Last Admin: 10/15/18 10:56 Dose: 1 applic Hydralazine HCl (Apresoline -) 100 mg PO TID [facility] Last Admin: 10/15/18 06:35 Dose: 100 mg Insulin Aspart (Novolog Vial Sliding Scale -) 1 vial SQ ACHS [facility]; Protocol Last Admin: 10/15/18 11:20 Dose: Not Given Insulin Detemir (Levemir Vial) 10 units SQ HS [facility] Last Admin: 10/14/18 22:26 Dose: 10 units Labetalol HCl (Normodyne -) 200 mg PO BID [facility] Last Admin: 10/15/18 10:55 Dose: 200 mg Pantoprazole Sodium (Protonix -) 40 mg PO DAILY [facility] Last Admin: 10/15/18 10:53 Dose: 40 mg Sodium Bicarbonate (Sodium Bicarbonate -) 650 mg PO DAILY [facility] Last Admin: 10/15/18 10:53 Dose: 650 mg Torsemide (Demadex -) 40 mg PO DAILY [facility] Last Admin: 10/15/18 10:55 Dose: 40 mg Warfarin Sodium (Coumadin -) 7.5 mg PO DAILY@1800 [facility] Last Admin: 10/14/18 17:30 Dose: 7.5 mg 77 year old woman with history of 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 #CKD stage 4/5, renal function stable #CHF with pulmonary congestion #COPD/Chronic dyspnea #LE edema #Hypertension #Acute on Chronic anemia Renal function stable no emergent indication for [employer] despite eGFR < 15 converted IV lasix to torsemide, volume status is improved s/p Aranesp SC for CKD related anemia on 10/11 Mental status is improved today. continue Nebs per pulmonary, BIPAP as needed overall prognosis is guarded Neurology and pulmonary follow up Thank you Tylor Funez DO
[2018-10-15] MEDS ORDERED: FUROSEMIDE 40 MG/4 ML INJECTABLE VIAL ONE (13:36)
--- NOTE | 2018-10-15 14:14 | PN ---
Teaching Attending Note Name of Resident: Sridhar Monk ATTENDING PHYSICIAN STATEMENT I saw and evaluated the patient. I reviewed the resident's note and discussed the case with the resident. I agree with the resident's findings and plan as documented. SUBJECTIVE: Patient is feeling better today . more awake. OBJECTIVE: Vital Signs Temperature 97.5 F L 10/15/18 06:00 Pulse Rate 62 10/15/18 06:00 Respiratory Rate 20 10/15/18 06:00 Blood Pressure 131/53 L 10/15/18 06:00 O2 Sat by Pulse Oximetry (%) 92 L 10/15/18 07:25 GENERAL: The patient is awake, alert, and oriented, less lethargic today on 2l oxygen HEAD: Normal with no signs of trauma. EYES: PERRL, extraocular movements intact, sclera anicteric, conjunctiva clear. ENT: Ears normal, oropharynx clear without exudates, moist mucous membranes. NECK: Trachea midline, full range of motion, supple. LUNGS: decreased BS BL, no wheezes, no crackles, mild accessory muscle use . HEART: Regular rate and rhythm, S1, S2 without murmur, rub or gallop. ABDOMEN: Soft, nontender, nondistended, normoactive bowel sounds, no guarding, no rebound, no hepatosplenomegaly, no masses. EXTREMITIES: 2+ pulses, warm, well-perfused, no edema. NEUROLOGICAL: Cranial nerves II through XII grossly intact. follows commands, speech is slow , gait not observed. feels weak, PSYCH: Normal mood, normal affect. SKIN: Warm, dry, normal turgor, no rashes or lesions noted CBCD WBC 5.3 K/mm3 (4.0-10.0) 10/15/18 06:00 RBC 2.52 M/mm3 (3.60-5.2) L 10/15/18 06:00 Hgb 8.1 GM/dL (10.7-15.3) L 10/15/18 06:00 Hct 24.5 % (32.4-45.2) L 10/15/18 06:00 MCV 97.1 fl (80-96) H 10/15/18 06:00 MCHC 33.0 g/dl (32.0-36.0) 10/15/18 06:00 RDW 15.6 % (11.6-15.6) 10/15/18 06:00 Plt Count 233 K/MM3 (134-434) 10/15/18 06:00 MPV 8.9 fl (7.5-11.1) 10/15/18 06:00 CMP Sodium 142 mmol/L (136-145) 10/15/18 06:00 Potassium 4.1 mmol/L (3.5-5.1) 10/15/18 06:00 Chloride 102 mmol/L (98-107) 10/15/18 06:00 Carbon Dioxide 33 mmol/L (21-32) H 10/15/18 06:00 Anion Gap 7 MMOL/L (8-16) L 10/15/18 06:00 BUN 54.3 mg/dL (7-18) H 10/15/18 06:00 Creatinine 4.0 mg/dL (0.55-1.3) H 10/15/18 06:00 Random Glucose 99 mg/dL (74-106) 10/15/18 06:00 Calcium 8.7 mg/dL (8.5-10.1) 10/15/18 06:00 Total Bilirubin 0.5 mg/dL (0.2-1) 10/14/18 05:53 AST 15 U/L (15-37) 10/14/18 05:53 ALT 16 U/L (13-61) 10/14/18 05:53 Alkaline Phosphatase 47 U/L (45-117) 10/14/18 05:53 Total Protein 5.7 g/dl (6.4-8.2) L 10/14/18 05:53 Albumin 2.8 g/dl (3.4-5.0) L 10/14/18 05:53 CARDIAC ENZYMES Troponin I < 0.02 ng/ml (0.00-0.05) 10/08/18 15:54 Current Medications Generic Name Dose Route Start Last Admin Trade Name Freq PRN Reason Stop Dose Admin Albuterol/Ipratropium 1 amp 10/08/18 21:22 10/14/18 07:41 Duoneb - NEB 1 amp Q6H PRN Administration SHORTNESS OF BREATH Amlodipine Besylate 10 mg 10/09/18 10:00 10/15/18 10:53 Norvasc - PO 10 mg DAILY [facility] Administration Arformoterol Tartrate 1 amp 10/14/18 20:00 10/15/18 07:25 Brovana (Restricted To Pulmonology/Resp) - NEB 1 amp RBID [facility] Administration Artificial Tears 1 drop 10/14/18 10:43 10/15/18 10:56 Artificial Tears OU 1 drop BID PRN Administration DRY EYES Atorvastatin Calcium 20 mg 10/14/18 22:00 10/14/18 22:26 Lipitor - PO 20 mg HS [facility] Administration Calcium Acetate 667 mg 10/09/18 08:00 10/15/18 12:40 Phoslo - PO 667 mg TIDCM [facility] Administration Cholecalciferol 5,000 unit 10/09/18 10:00 10/15/18 10:54 Vitamin D3 - PO 5,000 unit DAILY [facility] Administration Erythromycin 1 applic 10/14/18 10:45 10/15/18 10:56 Erythromycin 0.5% Eye Ointment OU 1 applic DAILY [facility] Administration Hydralazine HCl 100 mg 10/08/18 22:00 10/15/18 13:42 Apresoline - PO 100 mg TID [facility] Administration Insulin Aspart 1 vial 10/09/18 07:00 10/15/18 11:20 Novolog Vial Sliding Scale - SQ Not Given ACHS ON LICENSE OF [facility] Protocol Insulin Detemir 10 units 10/12/18 13:44 10/14/18 22:26 Levemir Vial SQ 10 units HS [facility] Administration Labetalol HCl 200 mg 10/08/18 22:00 10/15/18 10:55 Normodyne - PO 200 mg BID [facility] Administration Pantoprazole Sodium 40 mg 10/09/18 10:00 10/15/18 10:53 Protonix - PO 40 mg DAILY [facility] Administration Sodium Bicarbonate 650 mg 10/13/18 10:00 10/15/18 10:53 Sodium Bicarbonate - PO 650 mg DAILY [facility] Administration Torsemide 40 mg 10/15/18 10:00 10/15/18 10:55 Demadex - PO 40 mg DAILY [facility] Administration Warfarin Sodium 7.5 mg 10/09/18 18:00 10/14/18 17:30 Coumadin - PO 7.5 mg DAILY@1800 [facility] Administration discontinued Home Medications Medication Instructions Recorded Albuterol 0.083% Nebulizer Norma 1 amp NEB Q4H PRN #0 amp 09/15/18 [Ventolin 0.083% Nebulizer Soln -] Albuterol 2.5/Ipratropium 0.5 1 amp NEB QID PRN 30 Days amp 09/15/18 [Duoneb -] Budesonide/Formeterol Fumarate 2 puff IH BID inhaler 09/15/18 [SYMBICORT 160/4.5mcg -] Folic Acid - 1 mg PO DAILY tablet 09/15/18 Furosemide [Lasix -] 40 mg PO DAILY #30 tablet 09/15/18 Insulin (Levemir) [Levemir Vial] 10 units SQ DAILY@0800 #3 ml 09/15/18 Insulin (Levemir) [Levemir Vial] 24 units SQ HS #6 ml 09/15/18 Labetalol HCl [Normodyne -] 200 mg PO BID #60 tablet 09/15/18 Sodium Bicarbonate - 650 mg PO BID tablet 09/15/18 Warfarin Sodium [Coumadin] 7.5 mg PO HS #30 tablet 09/15/18 Hydralazine HCl 100 mg PO TID #90 tablet 09/16/18 Amlodipine Besylate [Norvasc -] 10 mg PO DAILY 10/08/18 Calcium Acetate 667 mg PO TID 10/08/18 Cholecalciferol (Vitamin D3) 5,000 unit PO DAILY 10/08/18 [Vitamin D3] Insulin Sliding Scale [Novolog 1 unit SQ [facility] PRN 10/08/18 Vial Sliding Scale -] Pantoprazole Sodium 40 mg PO DAILY 10/08/18 Diltiazem HCl [Diltiazem 24Hr ER 120 mg PO DAILY 10/09/18 (Cd)] A010/12/18 13:22 Blood - Peripheral Venous Blood Culture - Preliminary NO GROWTH OBTAINED AFTER 48 HOURS, INCUBATION TO CONTINUE FOR 3 DAYS. 10/12/18 13:40 Blood - Peripheral Venous Blood Culture - Preliminary NO GROWTH OBTAINED AFTER 48 HOURS, INCUBATION TO CONTINUE FOR 3 DAYS. 10/12/18 13:45 Urine - Urine Clean Catch Urine Culture - Final Normal Urogenital Annemarie 10/08/18 16:53 Urine - Urine - Catheterized Urine Culture - Final Pseudomonas Aeruginosa Lactose Fermenting Neg Bacilli Head CT: no acute pathology, moderate periventricular and subcortical chronic microvascular ischemic changes. No definite interval change in comparison to a prior CT (10/08/2018) ASSESSMENT AND PLAN: Patient is a 77 year old female with history significant for hypertension, diabetes, atrial fibrillation s/p ablation, on Coumadin, left lower extremity DVT, asthma, COPD presents with lethargy. # Acute lethargy: less lethargic today , IMRPROVING DUE TO ACUTE METABOLIC ENCEPHALOPATHY, repeat CT of the head , no changes , consult appreciated. # Acute metabolic encephalopathy improving , CT of the head negative. # Acute hypoxemia on oxygen discussed with Dr. Fletcher # Acute UTI s/p Levofloxacin 500 mg once and 250 mg q 48 hrs. # Hx of DVT with therapeutic INR now, will continue coumadin, Echo reviewed. # ARF: 3.7--->4.0-->3.7-->3.8-->4.0 today avoid nephrotoxic drugs. Nephro on the case, s/p IVF follow with Nephro . continue sodium Bicarb. # Hx of COPD continue symbicort, nebs tx continue. Pulmonary on the case # T2DM continue Levemir # HTN: continue her home meds. DVT Px: Heparin, coumadin daily PT/INR , follow PT /INR closely , patient is on Levaquin q48h, monitor the dose of coumadin on a daily basis
--- NOTE | 2018-10-15 16:03 | PN ---
Physical Exam: SUBJECTIVE: Patient seen and examined at the bedside this AM. Increased lethargy , eye looks better today. OBJECTIVE: Vital Signs Period Temp Pulse Resp BP Sys/Renee Pulse Ox Last 24 Hr 97.5 F-99.5 F 62-79 18-20 123-151/49-68 92-98 GENERAL: The patient is increasingly lethargic today, thinks she is home. HEAD: Normal with no signs of trauma. EYES: less conjunctival injection, No ptosis. NECK: supple. LUNGS: Breath sounds equal, less congestion. HEART: Regular rate and rhythm, S1, S2 without murmur, rub or gallop. ABDOMEN: Soft, nontender, nondistended, no guarding, no rebound. EXTREMITIES: warm, well-perfused, 1+ edema. NEUROLOGICAL: Cranial nerves II through XII grossly intact. Normal speech, gait not observed. PSYCH: Normal mood, normal affect. SKIN: Warm, dry, no rashes or lesions noted Laboratory Results - last 24 hr 10/14/18 10/14/18 10/15/18 17:30 22:23 05:57 WBC RBC Hgb Hct MCV MCH MCHC RDW Plt Count MPV Absolute Neuts (auto) Neutrophils % Lymphocytes % Monocytes % Eosinophils % Basophils % Nucleated RBC % PT with INR INR Sodium Potassium Chloride Carbon Dioxide Anion Gap BUN Creatinine Est GFR (CKD-EPI)AfAm Est GFR (CKD-EPI)NonAf POC Glucometer 184 183 99 Random Glucose Calcium Phosphorus Magnesium TSH 10/15/18 10/15/18 10/15/18 06:00 06:00 06:00 WBC 5.3 RBC 2.52 L Hgb 8.1 L Hct 24.5 L MCV 97.1 H MCH 32.0 MCHC 33.0 RDW 15.6 Plt Count 233 MPV 8.9 Absolute Neuts (auto) 2.6 Neutrophils % 48.6 Lymphocytes % 35.3 Monocytes % 13.9 H Eosinophils % 1.2 Basophils % 1.0 Nucleated RBC % 0 PT with INR 38.70 H INR 3.24 H Sodium 142 Potassium 4.1 Chloride 102 Carbon Dioxide 33 H Anion Gap 7 L BUN 54.3 H Creatinine 4.0 H Est GFR (CKD-EPI)AfAm 11.61 Est GFR (CKD-EPI)NonAf 10.02 POC Glucometer Random Glucose 99 Calcium 8.7 Phosphorus 3.4 Magnesium 1.8 TSH 2.15 10/15/18 11:12 WBC RBC Hgb Hct MCV MCH MCHC RDW Plt Count MPV Absolute Neuts (auto) Neutrophils % Lymphocytes % Monocytes % Eosinophils % Basophils % Nucleated RBC % PT with INR INR Sodium Potassium Chloride Carbon Dioxide Anion Gap BUN Creatinine Est GFR (CKD-EPI)AfAm Est GFR (CKD-EPI)NonAf POC Glucometer 99 Random Glucose Calcium Phosphorus Magnesium TSH Active Medications Generic Name Dose Route Start Last Admin Trade Name Freq PRN Reason Stop Dose Admin Albuterol/Ipratropium 1 amp 10/08/18 21:22 10/14/18 07:41 Duoneb - NEB 1 amp Q6H PRN Administration SHORTNESS OF BREATH Amlodipine Besylate 10 mg 10/09/18 10:00 10/15/18 10:53 Norvasc - PO 10 mg DAILY ERMA Administration Arformoterol Tartrate 1 amp 10/14/18 20:00 10/15/18 07:25 Brovana (Restricted To Pulmonology/Resp) - NEB 1 amp RBID ERMA Administration Artificial Tears 1 drop 10/14/18 10:43 10/15/18 10:56 Artificial Tears OU 1 drop BID PRN Administration DRY EYES Atorvastatin Calcium 20 mg 10/14/18 22:00 10/14/18 22:26 Lipitor - PO 20 mg HS ERMA Administration Calcium Acetate 667 mg 10/09/18 08:00 10/15/18 12:40 Phoslo - PO 667 mg TIDCM ERMA Administration Cholecalciferol 5,000 unit 10/09/18 10:00 10/15/18 10:54 Vitamin D3 - PO 5,000 unit DAILY ERMA Administration Erythromycin 1 applic 10/14/18 10:45 10/15/18 10:56 Erythromycin 0.5% Eye Ointment OU 1 applic DAILY ERMA Administration Hydralazine HCl 100 mg 10/08/18 22:00 10/15/18 13:42 Apresoline - PO 100 mg TID ERMA Administration Insulin Aspart 1 vial 10/09/18 07:00 10/15/18 11:20 Novolog Vial Sliding Scale - SQ Not Given ACHS [facility] Protocol Insulin Detemir 10 units 10/12/18 13:44 10/14/18 22:26 Levemir Vial SQ 10 units HS ERMA Administration Labetalol HCl 200 mg 10/08/18 22:00 10/15/18 10:55 Normodyne - PO 200 mg BID ERMA Administration Pantoprazole Sodium 40 mg 10/09/18 10:00 10/15/18 10:53 Protonix - PO 40 mg DAILY ERMA Administration Sodium Bicarbonate 650 mg 10/13/18 10:00 10/15/18 10:53 Sodium Bicarbonate - PO 650 mg DAILY ERMA Administration Torsemide 40 mg 10/15/18 10:00 10/15/18 10:55 Demadex - PO 40 mg DAILY [facility] Administration Warfarin Sodium 7.5 mg 10/09/18 18:00 10/14/18 17:30 Coumadin - PO 7.5 mg DAILY@1800 ERMA Administration ASSESSMENT/PLAN: Images: - CT scan showed periventricular subcortical chronic microvascular ischemic changes seen. No change from prior one. Pt is a 77 yo F with a pMhx of obesity, HTN, DM, COPD on home nightly CPAP, CKD stage IV-5 (b/l SCr: 3.4-3.6) presented with reported mentation changes and lethargy in the presence of anasarca. #COPD/TREVON vs Pickwickian syndrome : - c/w symbicort daily & duonebs as needed, resume nightly BIPAP or PRN BIPAP #Altered mental status possible depression component to this. - As per neuro, awaiting MRI of cervical spine and brain to r/o cervical myelopathy. - Lethargy has worsened this AM, but most likely 2/2 Toxic-metabolic encephalopathy - may be some alzheimers component to this, awaiting ESR, CRP, RPR. #Acute noninfectious conjunctivitis - artifical tears - erythromycin ointment - optho consulted #UTI - off abx continuing to monitor per ID. #AFib/Flutter hx: - will continue the current meds labetalol and warfarin - Per cardio, pt in NSR just starting the torsemide, monitoring the renal ftn. #CKD stage V - switched from lasix to torsemide PO, volume status is improved - not requiring [employer] - c/w 650 BID PO NaHCo3, phoslo 650 TID #HTN/Acute on chronic CHF - per cardio, c/w lasix, amlodipine, labetalol, hydralazine as prescribed at home #DM - levemir 12 units @ bedtime and correction dose insulin to optimize glucose control. DVT PPx: pt on systemic AC #FEN: - Continue to monitor lytes - continue no fluids. - Low sodium, low phos, Low potassium & moderate carb diet. Visit type - Emergency Visit Emergency Visit: Yes ED Registration Date: 10/08/18 Care time: The patient presented to the Emergency Department on the above date and was hospitalized for further evaluation of their emergent condition. - New Patient This patient is new to me today: No - Critical Care Critical Care patient: No - Discharge Referral Referred to [facility] No ATTENDING PHYSICIAN STATEMENT I saw and evaluated the patient. I reviewed the resident's note and discussed the case with the resident. I agree with the resident's findings and plan as documented. SUBJECTIVE: OBJECTIVE: ASSESSMENT AND PLAN:
--- NOTE | 2018-10-15 16:26 | PN ---
Progress Note, Physician History of Present Illness: seen and examined today. again more lethargic. awakens and answers short answers then goes back to sleep. states she wants to wake up but cannot. denies sob. - Current Medication List Current Medications: Active Medications Albuterol/Ipratropium (Duoneb -) 1 amp NEB Q6H PRN PRN Reason: SHORTNESS OF BREATH Last Admin: 10/14/18 07:41 Dose: 1 amp Amlodipine Besylate (Norvasc -) 10 mg PO DAILY [facility] Last Admin: 10/15/18 10:53 Dose: 10 mg Arformoterol Tartrate (Brovana (Restricted To Pulmonology/Resp) -) 1 amp NEB RBID [facility] Last Admin: 10/15/18 07:25 Dose: 1 amp Artificial Tears (Artificial Tears) 1 drop OU BID PRN PRN Reason: DRY EYES Last Admin: 10/15/18 10:56 Dose: 1 drop Atorvastatin Calcium (Lipitor -) 20 mg PO HS [facility] Last Admin: 10/14/18 22:26 Dose: 20 mg Calcium Acetate (Phoslo -) 667 mg PO TIDCM [facility] Last Admin: 10/15/18 12:40 Dose: 667 mg Cholecalciferol (Vitamin D3 -) 5,000 unit PO DAILY [facility] Last Admin: 10/15/18 10:54 Dose: 5,000 unit Erythromycin (Erythromycin 0.5% Eye Ointment) 1 applic OU DAILY [facility] Last Admin: 10/15/18 10:56 Dose: 1 applic Hydralazine HCl (Apresoline -) 100 mg PO TID [facility] Last Admin: 10/15/18 13:42 Dose: 100 mg Insulin Aspart (Novolog Vial Sliding Scale -) 1 vial SQ [facility]; Protocol Last Admin: 10/15/18 11:20 Dose: Not Given Insulin Detemir (Levemir Vial) 10 units SQ [facility] Last Admin: 10/14/18 22:26 Dose: 10 units Labetalol HCl (Normodyne -) 200 mg PO BID [facility] Last Admin: 10/15/18 10:55 Dose: 200 mg Pantoprazole Sodium (Protonix -) 40 mg PO DAILY [facility] Last Admin: 10/15/18 10:53 Dose: 40 mg Sodium Bicarbonate (Sodium Bicarbonate -) 650 mg PO DAILY [facility] Last Admin: 10/15/18 10:53 Dose: 650 mg Torsemide (Demadex -) 40 mg PO DAILY [facility] Last Admin: 10/15/18 10:55 Dose: 40 mg Warfarin Sodium (Coumadin -) 7.5 mg PO DAILY@1800 [facility] Last Admin: 10/14/18 17:30 Dose: 7.5 mg - Objective Vital Signs: Vital Signs Temperature 99.5 F 10/15/18 14:00 Pulse Rate 68 10/15/18 14:00 Respiratory Rate 20 10/15/18 14:00 Blood Pressure 123/50 L 10/15/18 14:00 O2 Sat by Pulse Oximetry (%) 92 L 10/15/18 07:25 Constitutional: Yes: No Distress Cardiovascular: Yes: Regular Rate and Rhythm, S1, S2. No: Bradycardia, Tachycardia, Pulse Irregular, Bruit, JVD, Gallop, Murmur, Rub, S3, S4, Varicosities Respiratory: Yes: Regular, On Nasal O2. No: Rales, Rhonchi, SOB, Wheezes Gastrointestinal: No: Normal Bowel Sounds, Soft, Distention, Tenderness Edema: Yes Neurological: No: Alert Psychiatric: No: Alert Labs: CBC, BMP 10/15/18 06:00 10/15/18 06:00 INR, PTT INR 3.24 (0.83-1.09) H 10/15/18 06:00 - ....Imaging Chest X-ray: Report Reviewed, Image Reviewed EKG: Report Reviewed, Image Reviewed Other: Report Reviewed, Image Reviewed (tele-nsr, no af) Assessment/Plan 77 year old woman with a history of hypertension, hyperlipidemia, heavy smoking , PAD with claudication, diabetes type II, atrial flutter status post ablation several years ago, followed by paroxysmal atrial fibrillation more recently, DVT 2015, on full AC for Afib, CKD, severe depression, chronic fatigue, chronic dyspnea on exertion of unclear etiology, multiple admissions for sob/hypoxia with clear lungs and clear lung imaging, prior outpatient V/Q showing low prob PE, with ventilation worse than perfusion, has been seen by multiple pulmonologists, has not improved with bronchodilators or inhaled corticosteroids , h/o R heart cath at [facility] years ago showing no sig pulm htn, prior Admisson [facility] 04/2017 with elevated troponin but nuclear stress test showed no ischemia and echo showed normal LV systolic function. Never had [facility] due to CKD and risk of VIKAS. Again admitted to [facility] 12/14/17 with chest pain and sob, elevated troponins up to 3's with normal CK level, normal LV systolic function on echo again. Now admitted with sob, lethargy, ams. pt seen and examined today in nad. awake but not alert, somnolent. appears somewhat confused. Denies current sob. states she feels tired. SOB-multifactorial due to COPD and component of acute on chronic diastolic CHF -recent echo 08/23/18 showed normal LVEF, Grade I diastolic dysfunction, mild valvular abnl, similar to prior echos -agree with transition to po Torsemide -monitor daily weights, bun/creat, and electrolytes and replete as needed -pulm/renal following Arrhythmia-h/o aflutter s/p ablation, h/o afib -currently NSR -continue current medications for now -on labetalol currently, was on diltiazem in the past -INR goal 2-3 Ok to dc tele Will see as needed. Please call with any additional questions.
[2018-10-15] MEDS: WARFARIN NA 7.5 MG TABLET (FP) PO SCH (18:38)
[2018-10-15] MEDS: ATORVASTATIN CA 20 MG TABLET (FP) PO SCH (21:14)
[2018-10-15] MEDS: INSULIN (LEVEMIR) 100 UNITS/ML UNITS SQ SCH (22:49)
[2018-10-16] MEDS: INSULIN SLIDING SCALE (NOVOLOG) 1 VIAL SQ SCH ×4 (06:39→22:27)
[2018-10-16] MEDS: hydrALAZINE HCL 50 MG TABLET (FP) PO SCH ×3 (06:42→22:27)
[2018-10-16 07:49] LABS: BASO % 1.3 % (0-2.0); HEMATOCRIT 25.8 % (32.4-45.2); HEMOGLOBIN 8.4 GM/dL (10.7-15.3); LYMPH % 34.2 % (8-40); MCH 31.9 pg (25.7-33.7); MCHC 32.4 g/dl (32.0-36.0); MEAN CELL VOLUME 98.3 fl (80-96); MONO % 12.6 % (3.8-10.2); NEUT % 50.9 % (42.8-82.8); PLATELET COUNT 236 K/MM3 (134-434); RBC 2.63 M/mm3 (3.60-5.2); RDW 15.4 % (11.6-15.6); WHITE BLOOD COUNT 5.7 K/mm3 (4.0-10.0)
[2018-10-16] MEDS: ARFORMOTEROL TARTRATE 15 MCG/2 ML VIAL NEB SCH ×2 (08:00→20:08)
[2018-10-16 08:08] LABS: ALBUMIN 2.8 g/dl (3.4-5.0); BILIRUBIN,TOTAL 0.6 mg/dL (0.2-1); BLOOD UREA NITROGEN 53.4 mg/dL (7-18); CALCIUM 8.7 mg/dL (8.5-10.1); CREATININE 4.2 mg/dL (0.55-1.3); MAGNESIUM 1.8 mg/dL (1.8-2.4); PHOSPHOROUS 3.8 mg/dL (2.5-4.9); POTASSIUM 3.9 mmol/L (3.5-5.1); TOT PROT 5.6 g/dl (6.4-8.2)
[2018-10-16 08:31] LABS: INR 3.11 (0.83-1.09); PROTHROMBIN TIME (PATIENT) 37.1 SEC (9.7-13.0)
[2018-10-16] MEDS: CALCIUM ACETATE 667 MG CAPSULE (FP) PO SCH ×3 (09:30→16:33)
[2018-10-16] MEDS: PANTOPRAZOLE 40 MG TABLET (FP) PO SCH (09:31)
[2018-10-16] MEDS: amLODIPine BESYLATE 10 MG TABLET (FP) PO SCH (09:31)
[2018-10-16] MEDS: LABETALOL HCL 200 MG TABLET (FP) PO SCH ×2 (09:31→22:27)
[2018-10-16] MEDS: TORSEMIDE 20 MG TABLET (FP) PO SCH (09:31)
[2018-10-16] MEDS: CHOLECALCIFEROL (VIT D3) 1,000 UNIT (25 MCG) TABLET PO SCH (09:31)
[2018-10-16] MEDS: SODIUM BICARBONATE 650 MG TABLET PO SCH (09:32)
[2018-10-16] MEDS: ERYTHROMYCIN 0.5% OPHTHALMIC OINTMENT 3.5 GM TUBE OU SCH (11:15)
--- NOTE | 2018-10-16 11:15 | PN ---
Progress Note (short form) - Note Progress Note: Sleepy but arousable and responsive. NAD on NC O2. No acute events overnight. Generalized malaise. Intake & Output 10/13/18 10/14/18 10/15/18 10/16/18 23:59 23:59 23:59 23:59 Intake Total 175 125 130 Balance 175 125 130 Weight 210 lb 6.4 oz 210 lb 211 lb Last Vital Signs Temp Pulse Resp BP Pulse Ox 97.6 F 82 18 146/88 99 10/16/18 10:00 10/16/18 10:00 10/16/18 10:00 10/16/18 10:00 10/16/18 09:00 Active Medications Albuterol/Ipratropium (Duoneb -) 1 amp NEB Q6H PRN PRN Reason: SHORTNESS OF BREATH Last Admin: 10/14/18 07:41 Dose: 1 amp Amlodipine Besylate (Norvasc -) 10 mg PO DAILY [facility] Last Admin: 10/16/18 09:31 Dose: 10 mg Arformoterol Tartrate (Brovana (Restricted To Pulmonology/Resp) -) 1 amp NEB RBID [facility] Last Admin: 10/16/18 08:00 Dose: 1 amp Artificial Tears (Artificial Tears) 1 drop OU BID PRN PRN Reason: DRY EYES Last Admin: 10/15/18 10:56 Dose: 1 drop Atorvastatin Calcium (Lipitor -) 20 mg PO HS [facility] Last Admin: 10/15/18 21:14 Dose: 20 mg Calcium Acetate (Phoslo -) 667 mg PO TIDCM [facility] Last Admin: 10/16/18 09:30 Dose: 667 mg Cholecalciferol (Vitamin D3 -) 5,000 unit PO DAILY [facility] Last Admin: 10/16/18 09:31 Dose: 5,000 unit Erythromycin (Erythromycin 0.5% Eye Ointment) 1 applic OU DAILY [facility] Last Admin: 10/15/18 10:56 Dose: 1 applic Hydralazine HCl (Apresoline -) 100 mg PO TID [facility] Last Admin: 10/16/18 06:42 Dose: 100 mg Insulin Aspart (Novolog Vial Sliding Scale -) 1 vial SQ [facility]; Protocol Last Admin: 10/16/18 06:39 Dose: Not Given Insulin Detemir (Levemir Vial) 10 units SQ [facility] Last Admin: 10/15/18 22:49 Dose: Not Given Labetalol HCl (Normodyne -) 200 mg PO BID [facility] Last Admin: 10/16/18 09:31 Dose: 200 mg Pantoprazole Sodium (Protonix -) 40 mg PO DAILY [facility] Last Admin: 10/16/18 09:31 Dose: 40 mg Sodium Bicarbonate (Sodium Bicarbonate -) 650 mg PO DAILY [facility] Last Admin: 10/16/18 09:32 Dose: 650 mg Torsemide (Demadex -) 40 mg PO DAILY [facility] Last Admin: 10/16/18 09:31 Dose: 40 mg Constitutional: Yes: Sleepy but arousable, NAD on NC O2 Eyes: Yes: WNL HENT: Yes: WNL Neck: Yes: WNL Cardiovascular: Yes: Regular Rate and Rhythm, S1, S2 Respiratory: Yes: Diminished, Bibasilar Rales & Rhonchi Gastrointestinal: Yes: Normal Bowel Sounds, Soft Extremities: Yes: WNL Edema: No Labs: Laboratory Results - last 24 hr 10/15/18 10/15/18 10/15/18 11:12 18:11 20:04 WBC RBC Hgb Hct MCV MCH MCHC RDW Plt Count MPV Absolute Neuts (auto) Neutrophils % Lymphocytes % Monocytes % Eosinophils % Basophils % Nucleated RBC % PT with INR INR Sodium Potassium Chloride Carbon Dioxide Anion Gap BUN Creatinine Est GFR (CKD-EPI)AfAm Est GFR (CKD-EPI)NonAf POC Glucometer 99 119 128 Random Glucose Calcium Phosphorus Magnesium Total Bilirubin AST ALT Alkaline Phosphatase C-Reactive Protein Total Protein Albumin 10/16/18 10/16/18 10/16/18 06:38 07:15 07:15 WBC RBC Hgb Hct MCV MCH MCHC RDW Plt Count MPV Absolute Neuts (auto) Neutrophils % Lymphocytes % Monocytes % Eosinophils % Basophils % Nucleated RBC % PT with INR 37.10 H INR 3.11 H Sodium 142 Potassium 3.9 Chloride 103 Carbon Dioxide 31 Anion Gap 8 BUN 53.4 H Creatinine 4.2 H Est GFR (CKD-EPI)AfAm 10.95 Est GFR (CKD-EPI)NonAf 9.44 POC Glucometer 111 Random Glucose 111 H Calcium 8.7 Phosphorus 3.8 Magnesium 1.8 Total Bilirubin 0.6 AST 15 ALT 13 Alkaline Phosphatase 43 L C-Reactive Protein 0.6 H Total Protein 5.6 L Albumin 2.8 L 10/16/18 07:15 WBC 5.7 RBC 2.63 L Hgb 8.4 L Hct 25.8 L MCV 98.3 H MCH 31.9 MCHC 32.4 RDW 15.4 Plt Count 236 MPV 9.0 Absolute Neuts (auto) 2.9 Neutrophils % 50.9 Lymphocytes % 34.2 Monocytes % 12.6 H Eosinophils % 1.0 Basophils % 1.3 Nucleated RBC % 0 PT with INR INR Sodium Potassium Chloride Carbon Dioxide Anion Gap BUN Creatinine Est GFR (CKD-EPI)AfAm Est GFR (CKD-EPI)NonAf POC Glucometer Random Glucose Calcium Phosphorus Magnesium Total Bilirubin AST ALT Alkaline Phosphatase C-Reactive Protein Total Protein Albumin Problem List - Problems (1) Lethargy Code(s): R53.83 - OTHER FATIGUE (2) CHF (congestive heart failure) Code(s): I50.9 - HEART FAILURE, UNSPECIFIED Qualifiers: Heart failure type: diastolic (3) Anemia Code(s): D64.9 - ANEMIA, UNSPECIFIED Qualifiers: Chronic kidney disease stage: stage 4 (severe) (4) Afib Code(s): I48.91 - UNSPECIFIED ATRIAL FIBRILLATION Qualifiers: Atrial fibrillation type: paroxysmal Qualified Code(s): I48.0 - Paroxysmal atrial fibrillation (5) CAD (coronary artery disease) Code(s): I25.10 - ATHSCL HEART DISEASE OF [place] CORONARY ARTERY W/O ANG PCTRS (6) CKD (chronic kidney disease) Code(s): N18.9 - CHRONIC KIDNEY DISEASE, UNSPECIFIED (7) COPD (chronic obstructive pulmonary disease) Code(s): J44.9 - CHRONIC OBSTRUCTIVE PULMONARY DISEASE, UNSPECIFIED Qualifiers: COPD type: emphysema Emphysema type: unspecified Qualified Code(s): J43.9 - Emphysema, unspecified (8) Hyperlipidemia Code(s): E78.5 - HYPERLIPIDEMIA, UNSPECIFIED Qualifiers: Hyperlipidemia type: pure hypercholesterolemia Qualified Code(s): E78.00 - Pure hypercholesterolemia, unspecified; E78.0 - Pure hypercholesterolemia (9) Hypertension Code(s): I10 - ESSENTIAL (PRIMARY) HYPERTENSION Qualifiers: Hypertension type: essential hypertension Qualified Code(s): I10 - Essential (primary) hypertension (10) IDDM (insulin dependent diabetes mellitus) Code(s): E11.9 - TYPE 2 DIABETES MELLITUS WITHOUT COMPLICATIONS; Z79.4 - SHELTER (CURRENT) USE OF INSULIN (11) Pulmonary hypertension Code(s): I27.2 - OTHER SECONDARY PULMONARY HYPERTENSION * DO NOT USE * (12) Shortness of breath Code(s): R06.02 - SHORTNESS OF BREATH Assessment/Plan AE OF COPD ON HOME O2, NOCTURNAL BIPAP CHF PULMONARY HTN ALTERED MENTAL STATUS AFIB S/P ABLATION ON AC H/O DVT DM ACUTE ON CKD worsening ANEMIA RECENT PNEUMONIA PLAN INHALED BRONCHODILATORS O2 BIPAP AT NIGHT AND PRN LASIX MONITOR LYTES,RENAL FUNCTION MONITOR H+H NORMAL TRANSFUSION THRESHOLD ASPIRATION PRECAUTIONS DR BATISTA
--- NOTE | 2018-10-16 11:26 | PN ---
Progress Note (short form) - Note Progress Note: Renal follow up for CKD Pt seen and examined at the bedside awake and alert no acute complaints making urine no cp, sob, abd pain Vital Signs Temperature 97.6 F 10/16/18 10:00 Pulse Rate 82 10/16/18 10:00 Respiratory Rate 18 10/16/18 10:00 Blood Pressure 146/88 10/16/18 10:00 O2 Sat by Pulse Oximetry (%) 99 10/16/18 09:00 Intake & Output 10/13/18 10/14/18 10/15/18 10/16/18 23:59 23:59 23:59 23:59 Intake Total 175 125 130 Balance 175 125 130 Weight 95.436 kg 95.254 kg 95.708 kg NAD awake and alert RRR Dec BS no LE edema CBC, BMP 10/16/18 07:15 10/16/18 07:15 Current Medications Albuterol/Ipratropium (Duoneb -) 1 amp NEB Q6H PRN PRN Reason: SHORTNESS OF BREATH Last Admin: 10/14/18 07:41 Dose: 1 amp Amlodipine Besylate (Norvasc -) 10 mg PO DAILY [facility] Last Admin: 10/16/18 09:31 Dose: 10 mg Arformoterol Tartrate (Brovana (Restricted To Pulmonology/Resp) -) 1 amp NEB RBID [facility] Last Admin: 10/16/18 08:00 Dose: 1 amp Artificial Tears (Artificial Tears) 1 drop OU BID PRN PRN Reason: DRY EYES Last Admin: 10/15/18 10:56 Dose: 1 drop Atorvastatin Calcium (Lipitor -) 20 mg PO HS [facility] Last Admin: 10/15/18 21:14 Dose: 20 mg Calcium Acetate (Phoslo -) 667 mg PO TIDCM [facility] Last Admin: 10/16/18 09:30 Dose: 667 mg Cholecalciferol (Vitamin D3 -) 5,000 unit PO DAILY [facility] Last Admin: 10/16/18 09:31 Dose: 5,000 unit Erythromycin (Erythromycin 0.5% Eye Ointment) 1 applic OU DAILY [facility] Last Admin: 10/16/18 11:15 Dose: 1 applic Hydralazine HCl (Apresoline -) 100 mg PO TID [facility] Last Admin: 10/16/18 06:42 Dose: 100 mg Insulin Aspart (Novolog Vial Sliding Scale -) 1 vial SQ ACHS [facility]; Protocol Last Admin: 10/16/18 11:17 Dose: Not Given Insulin Detemir (Levemir Vial) 10 units SQ HS [facility] Last Admin: 10/15/18 22:49 Dose: Not Given Labetalol HCl (Normodyne -) 200 mg PO BID [facility] Last Admin: 10/16/18 09:31 Dose: 200 mg Pantoprazole Sodium (Protonix -) 40 mg PO DAILY [facility] Last Admin: 10/16/18 09:31 Dose: 40 mg Sodium Bicarbonate (Sodium Bicarbonate -) 650 mg PO DAILY [facility] Last Admin: 10/16/18 09:32 Dose: 650 mg Torsemide (Demadex -) 40 mg PO DAILY [facility] Last Admin: 10/16/18 09:31 Dose: 40 mg 77 year old woman with history of 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 #CKD stage 4/5, renal function stable #CHF with pulmonary congestion #COPD/Chronic dyspnea #LE edema #Hypertension #Acute on Chronic anemia Renal function stable overall, Cr noted to be slowly rising no emergent indication for [employer]ST [employer] despite eGFR < 15 continue PO torsemide, edema now resolved s/p Aranesp SC for CKD related anemia on 10/11 Mental status is improved today. continue Nebs per pulmonary, BIPAP as needed overall prognosis is guarded Neurology and pulmonary follow up Thank you Tylor Funez DO
[2018-10-16 14:30] LABS: ERYTHROCYTE SEDIMENTATION RATE 45 mm/hr (0-30)
--- NOTE | 2018-10-16 15:27 | PN ---
Progress Note, Physician History of Present Illness: Pt seen and examined. States she feels better. Denies current SOB/cough. No specific complaints at this time. - Current Medication List Current Medications: Active Medications Albuterol/Ipratropium (Duoneb -) 1 amp NEB Q6H PRN PRN Reason: SHORTNESS OF BREATH Last Admin: 10/14/18 07:41 Dose: 1 amp Amlodipine Besylate (Norvasc -) 10 mg PO DAILY [facility] Last Admin: 10/16/18 09:31 Dose: 10 mg Arformoterol Tartrate (Brovana (Restricted To Pulmonology/Resp) -) 1 amp NEB RBID [facility] Last Admin: 10/16/18 08:00 Dose: 1 amp Artificial Tears (Artificial Tears) 1 drop OU BID PRN PRN Reason: DRY EYES Last Admin: 10/15/18 10:56 Dose: 1 drop Atorvastatin Calcium (Lipitor -) 20 mg PO HS [facility] Last Admin: 10/15/18 21:14 Dose: 20 mg Calcium Acetate (Phoslo -) 667 mg PO TIDCM [facility] Last Admin: 10/16/18 12:24 Dose: 667 mg Cholecalciferol (Vitamin D3 -) 5,000 unit PO DAILY [facility] Last Admin: 10/16/18 09:31 Dose: 5,000 unit Erythromycin (Erythromycin 0.5% Eye Ointment) 1 applic OU DAILY [facility] Last Admin: 10/16/18 11:15 Dose: 1 applic Hydralazine HCl (Apresoline -) 100 mg PO TID [facility] Last Admin: 10/16/18 06:42 Dose: 100 mg Insulin Aspart (Novolog Vial Sliding Scale -) 1 vial SQ [facility]; Protocol Last Admin: 10/16/18 11:17 Dose: Not Given Insulin Detemir (Levemir Vial) 10 units SQ [facility] Last Admin: 10/15/18 22:49 Dose: Not Given Labetalol HCl (Normodyne -) 200 mg PO BID [facility] Last Admin: 10/16/18 09:31 Dose: 200 mg Pantoprazole Sodium (Protonix -) 40 mg PO DAILY [facility] Last Admin: 10/16/18 09:31 Dose: 40 mg Sodium Bicarbonate (Sodium Bicarbonate -) 650 mg PO DAILY [facility] Last Admin: 10/16/18 09:32 Dose: 650 mg Torsemide (Demadex -) 40 mg PO DAILY [facility] Last Admin: 10/16/18 09:31 Dose: 40 mg - Objective Vital Signs: Vital Signs Temperature 98.2 F 10/16/18 14:55 Pulse Rate 74 10/16/18 14:55 Respiratory Rate 18 10/16/18 14:55 Blood Pressure 143/59 L 10/16/18 14:55 O2 Sat by Pulse Oximetry (%) 99 10/16/18 09:00 Constitutional: Yes: No Distress, Calm Cardiovascular: Yes: Regular Rate and Rhythm Respiratory: Yes: Regular, On Nasal O2 Gastrointestinal: Yes: Normal Bowel Sounds, Soft Genitourinary: Yes: WNL Extremities: Yes: WNL Integumentary: Yes: WNL Labs: CBC, BMP 10/16/18 07:15 10/16/18 07:15 INR, PTT INR 3.11 (0.83-1.09) H 10/16/18 07:15 Microbiology 10/12/18 13:22 Blood - Peripheral Venous Blood Culture - Preliminary NO GROWTH OBTAINED AFTER 96 HOURS, INCUBATION TO CONTINUE FOR 1 DAYS. 10/12/18 13:40 Blood - Peripheral Venous Blood Culture - Preliminary NO GROWTH OBTAINED AFTER 96 HOURS, INCUBATION TO CONTINUE FOR 1 DAYS. 10/12/18 13:45 Urine - Urine Clean Catch Urine Culture - Final Normal Urogenital Annemarie 10/08/18 16:53 Urine - Urine - Catheterized Urine Culture - Final Pseudomonas Aeruginosa Lactose Fermenting Neg Bacilli - ....Imaging Chest X-ray: Report Reviewed Problem List - Problems (1) Lethargy Code(s): R53.83 - OTHER FATIGUE (2) CHF (congestive heart failure) Code(s): I50.9 - HEART FAILURE, UNSPECIFIED Qualifiers: Heart failure type: diastolic (3) Acute on chronic renal insufficiency Code(s): N28.9 - DISORDER OF KIDNEY AND URETER, UNSPECIFIED; N18.9 - CHRONIC KIDNEY DISEASE, UNSPECIFIED (4) COPD exacerbation Code(s): J44.1 - CHRONIC OBSTRUCTIVE PULMONARY DISEASE W (ACUTE) EXACERBATION (5) Afib Code(s): I48.91 - UNSPECIFIED ATRIAL FIBRILLATION Qualifiers: Atrial fibrillation type: paroxysmal Qualified Code(s): I48.0 - Paroxysmal atrial fibrillation (6) CAD (coronary artery disease) Code(s): I25.10 - ATHSCL HEART DISEASE OF [place] CORONARY ARTERY W/O ANG PCTRS (7) CKD (chronic kidney disease) Code(s): N18.9 - CHRONIC KIDNEY DISEASE, UNSPECIFIED (8) Hyperlipidemia Code(s): E78.5 - HYPERLIPIDEMIA, UNSPECIFIED Qualifiers: Hyperlipidemia type: pure hypercholesterolemia Qualified Code(s): E78.00 - Pure hypercholesterolemia, unspecified; E78.0 - Pure hypercholesterolemia (9) Hypertension Code(s): I10 - ESSENTIAL (PRIMARY) HYPERTENSION Qualifiers: Hypertension type: essential hypertension Qualified Code(s): I10 - Essential (primary) hypertension (10) IDDM (insulin dependent diabetes mellitus) Code(s): E11.9 - TYPE 2 DIABETES MELLITUS WITHOUT COMPLICATIONS; Z79.4 - [facility] (CURRENT) USE OF INSULIN (11) Obstructive sleep apnea Code(s): G47.33 - OBSTRUCTIVE SLEEP APNEA (ADULT) (PEDIATRIC) (12) Peripheral arterial disease Code(s): I73.9 - PERIPHERAL VASCULAR DISEASE, UNSPECIFIED (13) Shortness of breath Code(s): R06.02 - SHORTNESS OF BREATH Assessment/Plan Pt without respiratory distress/alert Continue monitor off antibiotics
--- NOTE | 2018-10-16 18:58 | PN ---
Progress Note (short form) - Note Progress Note: Patient feels better with no acute distress, no shortenss of breath, back to her self and her baseline. Vital Signs Temperature 98.2 F 10/16/18 14:55 Pulse Rate 74 10/16/18 14:55 Respiratory Rate 18 10/16/18 14:55 Blood Pressure 143/59 L 10/16/18 14:55 O2 Sat by Pulse Oximetry (%) 99 10/16/18 09:00 GENERAL: The patient is awake, alert, and oriented, less lethargic today on 2l oxygen HEAD: Normal with no signs of trauma. EYES: PERRL, extraocular movements intact, sclera anicteric, conjunctiva clear. ENT: Ears normal, oropharynx clear without exudates, moist mucous membranes. NECK: Trachea midline, full range of motion, supple. LUNGS: decreased BS BL, no wheezes, no crackles, mild accessory muscle use . HEART: Regular rate and rhythm, S1, S2 without murmur, rub or gallop. ABDOMEN: Soft, nontender, nondistended, normoactive bowel sounds, no guarding, no rebound, no hepatosplenomegaly, no masses. EXTREMITIES: 2+ pulses, warm, well-perfused, no edema. NEUROLOGICAL: Cranial nerves II through XII grossly intact. follows commands, speech is slow , gait not observed. feels weak, PSYCH: Normal mood, normal affect. SKIN: Warm, dry, normal turgor, no rashes or lesions noted CBCD WBC 5.7 K/mm3 (4.0-10.0) 10/16/18 07:15 RBC 2.63 M/mm3 (3.60-5.2) L 10/16/18 07:15 Hgb 8.4 GM/dL (10.7-15.3) L 10/16/18 07:15 Hct 25.8 % (32.4-45.2) L 10/16/18 07:15 MCV 98.3 fl (80-96) H 10/16/18 07:15 MCHC 32.4 g/dl (32.0-36.0) 10/16/18 07:15 RDW 15.4 % (11.6-15.6) 10/16/18 07:15 Plt Count 236 K/MM3 (134-434) 10/16/18 07:15 MPV 9.0 fl (7.5-11.1) 10/16/18 07:15 CMP Sodium 142 mmol/L (136-145) 10/16/18 07:15 Potassium 3.9 mmol/L (3.5-5.1) 10/16/18 07:15 Chloride 103 mmol/L (98-107) 10/16/18 07:15 Carbon Dioxide 31 mmol/L (21-32) 10/16/18 07:15 Anion Gap 8 MMOL/L (8-16) 10/16/18 07:15 BUN 53.4 mg/dL (7-18) H 10/16/18 07:15 Creatinine 4.2 mg/dL (0.55-1.3) H 10/16/18 07:15 Random Glucose 111 mg/dL (74-106) H 10/16/18 07:15 Calcium 8.7 mg/dL (8.5-10.1) 10/16/18 07:15 Total Bilirubin 0.6 mg/dL (0.2-1) 10/16/18 07:15 AST 15 U/L (15-37) 10/16/18 07:15 ALT 13 U/L (13-61) 10/16/18 07:15 Alkaline Phosphatase 43 U/L (45-117) L 10/16/18 07:15 Total Protein 5.6 g/dl (6.4-8.2) L 10/16/18 07:15 Albumin 2.8 g/dl (3.4-5.0) L 10/16/18 07:15 CARDIAC ENZYMES Troponin I < 0.02 ng/ml (0.00-0.05) 10/08/18 15:54 Current Medications Generic Name Dose Route Start Last Admin Trade Name Freq PRN Reason Stop Dose Admin Albuterol/Ipratropium 1 amp 10/08/18 21:22 10/14/18 07:41 Duoneb - NEB 1 amp Q6H PRN Administration SHORTNESS OF BREATH Amlodipine Besylate 10 mg 10/09/18 10:00 10/16/18 09:31 Norvasc - PO 10 mg DAILY [facility] Administration Arformoterol Tartrate 1 amp 10/14/18 20:00 10/16/18 08:00 Brovana (Restricted To Pulmonology/Resp) - NEB 1 amp RBID [facility] Administration Artificial Tears 1 drop 10/14/18 10:43 10/15/18 10:56 Artificial Tears OU 1 drop BID PRN Administration DRY EYES Atorvastatin Calcium 20 mg 10/14/18 22:00 10/15/18 21:14 Lipitor - PO 20 mg HS [facility] Administration Calcium Acetate 667 mg 10/09/18 08:00 10/16/18 16:33 Phoslo - PO 667 mg TIDCM [facility] Administration Cholecalciferol 5,000 unit 10/09/18 10:00 10/16/18 09:31 Vitamin D3 - PO 5,000 unit DAILY [facility] Administration Erythromycin 1 applic 10/14/18 10:45 10/16/18 11:15 Erythromycin 0.5% Eye Ointment OU 1 applic DAILY [facility] Administration Hydralazine HCl 100 mg 10/08/18 22:00 10/16/18 16:15 Apresoline - PO 100 mg TID [facility] Administration Insulin Aspart 1 vial 10/09/18 07:00 10/16/18 16:20 Novolog Vial Sliding Scale - SQ 4 units ACHS [facility] Administration Protocol Insulin Detemir 10 units 10/12/18 13:44 10/15/18 22:49 Levemir Vial SQ Not Given HS [facility] Labetalol HCl 200 mg 10/08/18 22:00 10/16/18 09:31 Normodyne - PO 200 mg BID [facility] Administration Pantoprazole Sodium 40 mg 10/09/18 10:00 10/16/18 09:31 Protonix - PO 40 mg DAILY [facility] Administration Sodium Bicarbonate 650 mg 10/13/18 10:00 10/16/18 09:32 Sodium Bicarbonate - PO 650 mg DAILY [facility] Administration Torsemide 40 mg 10/15/18 10:00 10/16/18 09:31 Demadex - PO 40 mg DAILY [facility] Administration Home Medications Medication Instructions Recorded Albuterol 2.5/Ipratropium 0.5 1 amp NEB QID PRN 30 Days amp 09/15/18 [Duoneb -] RX: Albuterol 0.083% Nebulizer Norma 1 amp NEB Q4H PRN #0 amp 09/15/18 [Ventolin 0.083% Nebulizer Soln -] RX: Budesonide/Formeterol Fumarate 2 puff IH BID inhaler 09/15/18 [SYMBICORT 160/4.5mcg -] RX: Folic Acid - 1 mg PO DAILY tablet 09/15/18 RX: Furosemide [Lasix -] 40 mg PO DAILY #30 tablet 09/15/18 RX: Insulin (Levemir) [Levemir 10 units SQ DAILY@0800 #3 ml 09/15/18 Vial] RX: Insulin (Levemir) [Levemir 24 units SQ HS #6 ml 09/15/18 Vial] RX: Labetalol HCl [Normodyne -] 200 mg PO BID #60 tablet 09/15/18 RX: Sodium Bicarbonate - 650 mg PO BID tablet 09/15/18 RX: Warfarin Sodium [Coumadin] 7.5 mg PO HS #30 tablet 09/15/18 RX: Hydralazine HCl 100 mg PO TID #90 tablet 09/16/18 Cholecalciferol (Vitamin D3) 5,000 unit PO DAILY 10/08/18 [Vitamin D3] RX: Amlodipine Besylate [Norvasc -] 10 mg PO DAILY 10/08/18 RX: Calcium Acetate 667 mg PO TID 10/08/18 RX: Insulin Sliding Scale [Novolog 1 unit SQ [facility]IR PRN 10/08/18 Vial Sliding Scale -] RX: Pantoprazole Sodium 40 mg PO DAILY 10/08/18 Diltiazem HCl [Diltiazem 24Hr ER 120 mg PO DAILY 10/09/18 (Cd)] Microbiology 10/12/18 13:22 Blood - Peripheral Venous Blood Culture - Preliminary NO GROWTH OBTAINED AFTER 96 HOURS, INCUBATION TO CONTINUE FOR 1 DAYS. 10/12/18 13:40 Blood - Peripheral Venous Blood Culture - Preliminary NO GROWTH OBTAINED AFTER 96 HOURS, INCUBATION TO CONTINUE FOR 1 DAYS. 10/12/18 13:45 Urine - Urine Clean Catch Urine Culture - Final Normal Urogenital Annemarie 10/08/18 16:53 Urine - Urine - Catheterized Urine Culture - Final Pseudomonas Aeruginosa Lactose Fermenting Neg Bacilli Head CT: no acute pathology, moderate periventricular and subcortical chronic microvascular ischemic changes. No definite interval change in comparison to a prior CT (10/08/2018) ASSESSMENT AND PLAN: Patient is a 77 year old female with history significant for hypertension, diabetes, atrial fibrillation s/p ablation, on Coumadin, left lower extremity DVT, asthma, COPD presents with lethargy. # Acute lethargy: improved, due to METABOLIC ENCEPHALOPATHY, repeat CT of the head : neagtive , no changes , consult appreciated. # Acute metabolic encephalopathy improving , CT of the head negative. # Acute hypoxemia on oxygen discussed with Dr. Fletcher # Acute UTI s/p Levofloxacin 500 mg once and 250 mg q 48 hrs completed, monitor off abx , id on the case. # Hx of DVT with therapeutic INR now, will continue coumadin, Echo reviewed. daily PT/INR # ARF: 3.7--->4.0-->3.7-->3.8-->4.0 today avoid nephrotoxic drugs. Nephro on the case, s/p IVF follow with Nephro . continue sodium Bicarb. # Hx of COPD continue symbicort, nebs tx continue. Pulmonary on the case # T2DM continue Levemir # HTN: continue her home meds. DVT Px: Heparin, coumadin daily PT/INR , follow PT /INR closely , monitor the dose of coumadin on a daily basis Visit type - Emergency Visit Emergency Visit: Yes ED Registration Date: 10/08/18 Care time: The patient presented to the Emergency Department on the above date and was hospitalized for further evaluation of their emergent condition. - New Patient This patient is new to me today: No - Critical Care Critical Care patient: No - Discharge Referral Referred to [facility] No
[2018-10-16] MEDS: ATORVASTATIN CA 20 MG TABLET (FP) PO SCH (22:27)
[2018-10-16] MEDS: INSULIN (LEVEMIR) 100 UNITS/ML UNITS SQ SCH (22:27)
[2018-10-16] MEDS: ARTIFICIAL TEARS (POLYVINYL ALCOHOL) OPTH DROPS OU PRN (22:44)
[2018-10-17] MEDS: INSULIN SLIDING SCALE (NOVOLOG) 1 VIAL SQ SCH ×4 (06:58→22:55)
[2018-10-17] MEDS: hydrALAZINE HCL 50 MG TABLET (FP) PO SCH ×3 (06:58→22:53)
[2018-10-17] MEDS: ARFORMOTEROL TARTRATE 15 MCG/2 ML VIAL NEB SCH ×2 (08:17→20:43)
[2018-10-17] MEDS: CALCIUM ACETATE 667 MG CAPSULE (FP) PO SCH ×3 (09:17→18:22)
[2018-10-17] MEDS: amLODIPine BESYLATE 10 MG TABLET (FP) PO SCH (09:17)
[2018-10-17] MEDS: SODIUM BICARBONATE 650 MG TABLET PO SCH (09:17)
[2018-10-17] MEDS: CHOLECALCIFEROL (VIT D3) 1,000 UNIT (25 MCG) TABLET PO SCH (09:17)
[2018-10-17] MEDS: LABETALOL HCL 200 MG TABLET (FP) PO SCH ×2 (09:17→22:53)
[2018-10-17] MEDS: PANTOPRAZOLE 40 MG TABLET (FP) PO SCH (09:17)
[2018-10-17] MEDS: TORSEMIDE 20 MG TABLET (FP) PO SCH (09:17)
[2018-10-17] MEDS: ERYTHROMYCIN 0.5% OPHTHALMIC OINTMENT 3.5 GM TUBE OU SCH (09:19)
[2018-10-17] MEDS: ARTIFICIAL TEARS (POLYVINYL ALCOHOL) OPTH DROPS OU PRN (10:30)
--- NOTE | 2018-10-17 10:55 | PN ---
Physical Exam: SUBJECTIVE: Patient seen and examined at bedside this AM. No acute events. OBJECTIVE: Vital Signs Period Temp Pulse Resp BP Sys/Renee Pulse Ox Last 24 Hr 97.4 F-98.5 F 63-77 18-22 141-169/50-72 96-99 GENERAL: The patient is awake,but more lethargic than yesterday per nurse HEAD: Normal with no signs of trauma. NECK: supple. LUNGS: Breath sounds equal, clear to auscultation bilaterally, no wheezes, no crackles, no accessory muscle use. HEART: Regular rate and rhythm, S1, S2 without murmur, rub or gallop. ABDOMEN: Soft, nontender, nondistended, normoactive bowel sounds, no guarding, no rebound. EXTREMITIES: warm, well-perfused, no edema. NEUROLOGICAL: Cranial nerves II through XII grossly intact. gait not observed. PSYCH: depressed mood SKIN: Warm, dry, no rashes or lesions noted Laboratory Results - last 24 hr 10/16/18 10/16/18 10/16/18 07:15 07:15 11:15 ESR 45 H POC Glucometer 150 RPR Titer Nonreactive 10/16/18 10/16/18 10/17/18 16:16 22:24 06:57 ESR POC Glucometer 213 240 97 RPR Titer 10/17/18 10:34 ESR POC Glucometer 151 RPR Titer Active Medications Generic Name Dose Route Start Last Admin Trade Name Freq PRN Reason Stop Dose Admin Amlodipine Besylate 10 mg 10/09/18 10:00 10/17/18 09:17 Norvasc - PO 10 mg DAILY [facility] Administration Arformoterol Tartrate 1 amp 10/14/18 20:00 10/17/18 08:17 Brovana (Restricted To Pulmonology/Resp) - NEB 1 amp RBID [facility] Administration Artificial Tears 1 drop 10/14/18 10:43 10/17/18 10:30 Artificial Tears OU 1 drop BID PRN Administration DRY EYES Atorvastatin Calcium 20 mg 10/14/18 22:00 10/16/18 22:27 Lipitor - PO 20 mg HS [facility] Administration Calcium Acetate 667 mg 10/09/18 08:00 10/17/18 09:17 Phoslo - PO 667 mg TIDCM [facility] Administration Cholecalciferol 5,000 unit 10/09/18 10:00 10/17/18 09:17 Vitamin D3 - PO 5,000 unit DAILY [facility] Administration Erythromycin 1 applic 10/14/18 10:45 10/17/18 09:19 Erythromycin 0.5% Eye Ointment OU 1 applic DAILY [facility] Administration Hydralazine HCl 100 mg 10/08/18 22:00 10/17/18 06:58 Apresoline - PO 100 mg TID [facility] Administration Insulin Aspart 1 vial 10/09/18 07:00 10/17/18 06:58 Novolog Vial Sliding Scale - SQ Not Given [facility] Protocol Insulin Detemir 10 units 10/12/18 13:44 10/16/18 22:27 Levemir Vial SQ 10 units HS [facility] Administration Labetalol HCl 200 mg 10/08/18 22:00 10/17/18 09:17 Normodyne - PO 200 mg BID [facility] Administration Pantoprazole Sodium 40 mg 10/09/18 10:00 10/17/18 09:17 Protonix - PO 40 mg DAILY [facility] Administration Sodium Bicarbonate 650 mg 10/13/18 10:00 10/17/18 09:17 Sodium Bicarbonate - PO 650 mg DAILY [facility] Administration Torsemide 40 mg 10/15/18 10:00 10/17/18 09:17 Demadex - PO 40 mg DAILY [facility] Administration ASSESSMENT/PLAN: Images: MRI of brain: Lt distal ICA significant stenosis and should correlate with MRA, as well as chronic microvascular ischemic changes and chronic lacunar infarcts. MRI neck: showing C3-C4, C4-C5 disc herniations without impingement. Pt is a 77 yo F with a pMhx of obesity, HTN, DM, COPD on home nightly CPAP, CKD stage IV-5 (b/l SCr: 3.4-3.6) presented with reported mentation changes and lethargy in the presence of anasarca. #COPD vs Obesity hypoventilation syndrome: - c/w symbicort daily & duonebs as needed, resume nightly BIPAP or PRN BIPAP #Altered mental status possible depression component to this. - Appreciate neuro recs post MRI results as well as vascular surgery recs (Dr. Jay) consulted. - Lethargy has worsened this AM, but most likely 2/2 Toxic-metabolic encephalopathy #Acute noninfectious conjunctivitis - artifical tears - erythromycin ointment - optho consulted #UTI - off abx continuing to monitor per ID. #AFib/Flutter hx: - will continue the current meds labetalol and warfarin - continuing torsemide, monitoring the renal ftn. #CKD stage V - on torsemide, volume status is improved - not requiring FIRE BOSS - c/w 650 BID PO NaHCo3, phoslo 650 TID #HTN/Acute on chronic CHF - per cardio, c/w amlodipine, labetalol, hydralazine as prescribed at home #DM - levemir 10 units @ bedtime and correction dose insulin to optimize glucose control. DVT PPx: pt on systemic AC #FEN: - Continue to monitor lytes - continue no fluids. - Low sodium, low phos, Low potassium & moderate carb diet. Visit type - Emergency Visit Emergency Visit: Yes ED Registration Date: 10/08/18 Care time: The patient presented to the Emergency Department on the above date and was hospitalized for further evaluation of their emergent condition. - New Patient This patient is new to me today: No - Critical Care Critical Care patient: No - Discharge Referral Referred to [facility] No ATTENDING PHYSICIAN STATEMENT I saw and evaluated the patient. I reviewed the resident's note and discussed the case with the resident. I agree with the resident's findings and plan as documented. SUBJECTIVE: OBJECTIVE: ASSESSMENT AND PLAN:
[2018-10-17] MEDS ORDERED: ALBUTEROL SO4 2.5/IPRATROPIUM 0.5 INH SOL 3 ML VIAL.NEB. NEB PRN ×2 (11:45→11:46)
--- NOTE | 2018-10-17 12:10 | PN ---
Progress Note (short form) - Note Progress Note: Sleepy but arousable on NIPPV support. (Mental status is about the same as when I saw her yesterday). No acute events overnight. Intake & Output 10/14/18 10/15/18 10/16/18 10/17/18 23:59 23:59 23:59 23:59 Intake Total 125 130 150 0 Balance 125 130 150 0 Weight 210 lb 6.4 oz 210 lb 211 lb 202 lb 11.2 oz Last Vital Signs Temp Pulse Resp BP Pulse Ox 98.2 F 71 20 169/72 99 10/17/18 10:00 10/17/18 10:00 10/17/18 10:00 10/17/18 10:00 10/17/18 10:55 Active Medications Albuterol/Ipratropium (Duoneb -) 1 amp NEB Q6H PRN PRN Reason: SHORTNESS OF BREATH Amlodipine Besylate (Norvasc -) 10 mg PO DAILY [facility] Last Admin: 10/17/18 09:17 Dose: 10 mg Arformoterol Tartrate (Brovana (Restricted To Pulmonology/Resp) -) 1 amp NEB RBID [facility] Last Admin: 10/17/18 08:17 Dose: 1 amp Artificial Tears (Artificial Tears) 1 drop OU BID PRN PRN Reason: DRY EYES Last Admin: 10/17/18 10:30 Dose: 1 drop Atorvastatin Calcium (Lipitor -) 20 mg PO HS [facility] Last Admin: 10/16/18 22:27 Dose: 20 mg Calcium Acetate (Phoslo -) 667 mg PO TIDCM [facility] Last Admin: 10/17/18 09:17 Dose: 667 mg Cholecalciferol (Vitamin D3 -) 5,000 unit PO DAILY [facility] Last Admin: 10/17/18 09:17 Dose: 5,000 unit Erythromycin (Erythromycin 0.5% Eye Ointment) 1 applic OU DAILY [facility] Last Admin: 10/17/18 09:19 Dose: 1 applic Hydralazine HCl (Apresoline -) 100 mg PO TID [facility] Last Admin: 10/17/18 06:58 Dose: 100 mg Insulin Aspart (Novolog Vial Sliding Scale -) [address] [facility]; Protocol Last Admin: 10/17/18 06:58 Dose: Not Given Insulin Detemir (Levemir Vial) 10 units SQ [facility] Last Admin: 10/16/18 22:27 Dose: 10 units Labetalol HCl (Normodyne -) 200 mg PO BID [facility] Last Admin: 10/17/18 09:17 Dose: 200 mg Pantoprazole Sodium (Protonix -) 40 mg PO DAILY [facility] Last Admin: 10/17/18 09:17 Dose: 40 mg Sodium Bicarbonate (Sodium Bicarbonate -) 650 mg PO DAILY [facility] Last Admin: 10/17/18 09:17 Dose: 650 mg Torsemide (Demadex -) 40 mg PO DAILY [facility] Last Admin: 10/17/18 09:17 Dose: 40 mg Constitutional: Yes: Sleepy but arousable, on NIPPV support Eyes: Yes: WNL HENT: Yes: WNL Neck: Yes: WNL Cardiovascular: Yes: Regular Rate and Rhythm, S1, S2 Respiratory: Yes: Diminished, Bibasilar Rales & Rhonchi Gastrointestinal: Yes: Normal Bowel Sounds, Soft Extremities: Yes: WNL Edema: No Labs: Laboratory Results - last 24 hr 10/16/18 10/16/18 10/16/18 07:15 16:16 22:24 ESR 45 H POC Glucometer 213 240 10/17/18 10/17/18 06:57 10:34 ESR POC Glucometer 97 151 Problem List - Problems (1) Lethargy Code(s): R53.83 - OTHER FATIGUE (2) CHF (congestive heart failure) Code(s): I50.9 - HEART FAILURE, UNSPECIFIED Qualifiers: Heart failure type: diastolic (3) Anemia Code(s): D64.9 - ANEMIA, UNSPECIFIED Qualifiers: Chronic kidney disease stage: stage 4 (severe) (4) Afib Code(s): I48.91 - UNSPECIFIED ATRIAL FIBRILLATION Qualifiers: Atrial fibrillation type: paroxysmal Qualified Code(s): I48.0 - Paroxysmal atrial fibrillation (5) CAD (coronary artery disease) Code(s): I25.10 - ATHSCL HEART DISEASE OF [place] CORONARY ARTERY W/O ANG PCTRS (6) CKD (chronic kidney disease) Code(s): N18.9 - CHRONIC KIDNEY DISEASE, UNSPECIFIED (7) COPD (chronic obstructive pulmonary disease) Code(s): J44.9 - CHRONIC OBSTRUCTIVE PULMONARY DISEASE, UNSPECIFIED Qualifiers: COPD type: emphysema Emphysema type: unspecified Qualified Code(s): J43.9 - Emphysema, unspecified (8) Hyperlipidemia Code(s): E78.5 - HYPERLIPIDEMIA, UNSPECIFIED Qualifiers: Hyperlipidemia type: pure hypercholesterolemia Qualified Code(s): E78.00 - Pure hypercholesterolemia, unspecified; E78.0 - Pure hypercholesterolemia (9) Hypertension Code(s): I10 - ESSENTIAL (PRIMARY) HYPERTENSION Qualifiers: Hypertension type: essential hypertension Qualified Code(s): I10 - Essential (primary) hypertension (10) IDDM (insulin dependent diabetes mellitus) Code(s): E11.9 - TYPE 2 DIABETES MELLITUS WITHOUT COMPLICATIONS; Z79.4 - [facility] (CURRENT) USE OF INSULIN (11) Pulmonary hypertension Code(s): I27.2 - OTHER SECONDARY PULMONARY HYPERTENSION * DO NOT USE * (12) Shortness of breath Code(s): R06.02 - SHORTNESS OF BREATH Assessment/Plan AE OF COPD ON HOME O2, NOCTURNAL BIPAP CHF PULMONARY HTN ALTERED MENTAL STATUS AFIB S/P ABLATION ON AC H/O DVT DM ACUTE ON CKD worsening ANEMIA RECENT PNEUMONIA PLAN CHECK ABG INHALED BRONCHODILATORS NIPPV SUPPORT AT NIGHT AND PRN LASIX MONITOR LYTES,RENAL FUNCTION MONITOR H+H NORMAL TRANSFUSION THRESHOLD ASPIRATION PRECAUTIONS DR [place]
[2018-10-17 12:19] LABS: BASO % 0.9 % (0-2.0); EOS % 0.9 % (0-4.5); HEMATOCRIT 25.2 % (32.4-45.2); HEMOGLOBIN 8.2 GM/dL (10.7-15.3); LYMPH % 34.1 % (8-40); MCH 31.9 pg (25.7-33.7); MCHC 32.6 g/dl (32.0-36.0); MEAN CELL VOLUME 97.8 fl (80-96); MEAN PLT VOLUME 8.9 fl (7.5-11.1); MONO % 13.6 % (3.8-10.2); NEUT % 50.5 % (42.8-82.8); PLATELET COUNT 237 K/MM3 (134-434); RBC 2.57 M/mm3 (3.60-5.2); RDW 15.5 % (11.6-15.6); WHITE BLOOD COUNT 6.1 K/mm3 (4.0-10.0)
[2018-10-17 12:26] LABS: ALBUMIN 2.8 g/dl (3.4-5.0); BILIRUBIN,TOTAL 0.4 mg/dL (0.2-1); BLOOD UREA NITROGEN 57.4 mg/dL (7-18); CALCIUM 8.6 mg/dL (8.5-10.1); CREATININE 4.4 mg/dL (0.55-1.3); MAGNESIUM 1.9 mg/dL (1.8-2.4); PHOSPHOROUS 3.2 mg/dL (2.5-4.9); TOT PROT 5.7 g/dl (6.4-8.2)
[2018-10-17 12:30] LABS: INR 2.44 (0.83-1.09); PROTHROMBIN TIME (PATIENT) 29.1 SEC (9.7-13.0)
[2018-10-17 13:09] LABS: ARTERIAL BLD GAS O2 SATURATION 99.5 % (95-98); ARTERIAL BLOOD GAS BASE EXCESS 6.1 meq/l (-2-2); ARTERIAL BLOOD GAS PCO2 37.8 mmHg (35-45); ARTERIAL BLOOD GAS PO2 145 mmHg (80-105)
[2018-10-17 13:12] LABS: ALLENS TEST POSITIVE
--- NOTE | 2018-10-17 17:59 | PN ---
Teaching Attending Note Name of Resident: Sridhar Monk ATTENDING PHYSICIAN STATEMENT I saw and evaluated the patient. I reviewed the resident's note and discussed the case with the resident. I agree with the resident's findings and plan as documented. SUBJECTIVE: Patient is comfortable arousable, lethargic today. OBJECTIVE: Vital Signs Temperature 98.3 F 10/17/18 15:27 Pulse Rate 68 10/17/18 15:27 Respiratory Rate 20 10/17/18 15:27 Blood Pressure 140/61 10/17/18 15:27 O2 Sat by Pulse Oximetry (%) 100 10/17/18 13:51 GENERAL: The patient is lethargic but arousable, on 2l oxygen HEAD: Normal with no signs of trauma. EYES: PERRL, extraocular movements intact, sclera anicteric, conjunctiva clear. ENT: Ears normal, oropharynx clear without exudates, moist mucous membranes. NECK: Trachea midline, full range of motion, supple. LUNGS: decreased BS BL, no wheezes, no crackles, mild accessory muscle use . HEART: Regular rate and rhythm, S1, S2 without murmur, rub or gallop. ABDOMEN: Soft, nontender, nondistended, normoactive bowel sounds, no guarding, no rebound, no hepatosplenomegaly, no masses. EXTREMITIES: 2+ pulses, warm, well-perfused, no edema. NEUROLOGICAL: Cranial nerves II through XII grossly intact. follows commands, speech is slow , gait not observed. lethargic today SKIN: Warm, dry, normal turgor, no rashes or lesions noted CBCD WBC 6.1 K/mm3 (4.0-10.0) 10/17/18 11:10 RBC 2.57 M/mm3 (3.60-5.2) L 10/17/18 11:10 Hgb 8.2 GM/dL (10.7-15.3) L 10/17/18 11:10 Hct 25.2 % (32.4-45.2) L 10/17/18 11:10 MCV 97.8 fl (80-96) H 10/17/18 11:10 MCHC 32.6 g/dl (32.0-36.0) 10/17/18 11:10 RDW 15.5 % (11.6-15.6) 10/17/18 11:10 Plt Count 237 K/MM3 (134-434) 10/17/18 11:10 MPV 8.9 fl (7.5-11.1) 10/17/18 11:10 CMP Sodium 143 mmol/L (136-145) 10/17/18 11:10 Potassium 4.0 mmol/L (3.5-5.1) 10/17/18 11:10 Chloride 104 mmol/L (98-107) 10/17/18 11:10 Carbon Dioxide 31 mmol/L (21-32) 10/17/18 11:10 Anion Gap 8 MMOL/L (8-16) 10/17/18 11:10 BUN 57.4 mg/dL (7-18) H 10/17/18 11:10 Creatinine 4.4 mg/dL (0.55-1.3) H 10/17/18 11:10 Random Glucose 163 mg/dL (74-106) H 10/17/18 11:10 Calcium 8.6 mg/dL (8.5-10.1) 10/17/18 11:10 Total Bilirubin 0.4 mg/dL (0.2-1) 10/17/18 11:10 AST 14 U/L (15-37) L 10/17/18 11:10 ALT 14 U/L (13-61) 10/17/18 11:10 Alkaline Phosphatase 44 U/L (45-117) L 10/17/18 11:10 Total Protein 5.7 g/dl (6.4-8.2) L 10/17/18 11:10 Albumin 2.8 g/dl (3.4-5.0) L 10/17/18 11:10 CARDIAC ENZYMES Troponin I < 0.02 ng/ml (0.00-0.05) 10/08/18 15:54 Current Medications Generic Name Dose Route Start Last Admin Trade Name Freq PRN Reason Stop Dose Admin Albuterol/Ipratropium 1 amp 10/17/18 11:46 Duoneb - NEB Q6H PRN SHORTNESS OF BREATH Amlodipine Besylate 10 mg 10/09/18 10:00 10/17/18 09:17 Norvasc - PO 10 mg DAILY ERMA Administration Arformoterol Tartrate 1 amp 10/14/18 20:00 10/17/18 08:17 Brovana (Restricted To Pulmonology/Resp) - NEB 1 amp RBID ERMA Administration Artificial Tears 1 drop 10/14/18 10:43 10/17/18 10:30 Artificial Tears OU 1 drop BID PRN Administration DRY EYES Atorvastatin Calcium 80 mg 10/17/18 22:00 Lipitor - PO HS ERMA Calcium Acetate 667 mg 10/09/18 08:00 10/17/18 13:39 Phoslo - PO 667 mg TIDCM ERMA Administration Cholecalciferol 5,000 unit 10/09/18 10:00 10/17/18 09:17 Vitamin D3 - PO 5,000 unit DAILY ERMA Administration Erythromycin 1 applic 10/14/18 10:45 10/17/18 09:19 Erythromycin 0.5% Eye Ointment OU 1 applic DAILY ERMA Administration Hydralazine HCl 100 mg 10/08/18 22:00 10/17/18 13:39 Apresoline - PO 100 mg TID ERMA Administration Insulin Aspart 1 vial 10/09/18 07:00 10/17/18 17:15 Novolog Vial Sliding Scale - SQ 4 units ACHS ERMA Administration Protocol Insulin Detemir 10 units 10/12/18 13:44 10/16/18 22:27 Levemir Vial SQ 10 units HS ERMA Administration Labetalol HCl 200 mg 10/08/18 22:00 10/17/18 09:17 Normodyne - PO 200 mg BID ERMA Administration Pantoprazole Sodium 40 mg 10/09/18 10:00 10/17/18 09:17 Protonix - PO 40 mg DAILY ERMA Administration Sodium Bicarbonate 650 mg 10/13/18 10:00 10/17/18 09:17 Sodium Bicarbonate - PO 650 mg DAILY ERMA Administration dc'd today Torsemide 40 mg 10/15/18 10:00 10/17/18 09:17 Demadex - PO 40 mg DAILY ERMA Administration Home Medications Medication Instructions Recorded Albuterol 0.083% Nebulizer Norma 1 amp NEB Q4H PRN #0 amp 09/15/18 [Ventolin 0.083% Nebulizer Soln -] Albuterol 2.5/Ipratropium 0.5 1 amp NEB QID PRN 30 Days amp 09/15/18 [Duoneb -] Budesonide/Formeterol Fumarate 2 puff IH BID inhaler 09/15/18 [SYMBICORT 160/4.5mcg -] Folic Acid - 1 mg PO DAILY tablet 09/15/18 Furosemide [Lasix -] 40 mg PO DAILY #30 tablet 09/15/18 Insulin (Levemir) [Levemir Vial] 10 units SQ DAILY@0800 #3 ml 09/15/18 Insulin (Levemir) [Levemir Vial] 24 units SQ HS #6 ml 09/15/18 Labetalol HCl [Normodyne -] 200 mg PO BID #60 tablet 09/15/18 Sodium Bicarbonate - 650 mg PO BID tablet 09/15/18 Warfarin Sodium [Coumadin] 7.5 mg PO HS #30 tablet 09/15/18 Hydralazine HCl 100 mg PO TID #90 tablet 09/16/18 Amlodipine Besylate [Norvasc -] 10 mg PO DAILY 10/08/18 Calcium Acetate 667 mg PO TID 10/08/18 Cholecalciferol (Vitamin D3) 5,000 unit PO DAILY 10/08/18 [Vitamin D3] Insulin Sliding Scale [Novolog 1 unit SQ ASDIR PRN 10/08/18 Vial Sliding Scale -] Pantoprazole Sodium 40 mg PO DAILY 10/08/18 Diltiazem HCl [Diltiazem 24Hr ER 120 mg PO DAILY 10/09/18 (Cd)] MRI of the brain: Moderate atrophy and periventricular chronic microvascular ischemic dz changes, b/l centrum semiovale chronic lacunar infarcts. No mass lesion, or acute infarct or intracranial hemorrhage identified. ASSESSMENT AND PLAN: Patient is a 77 year old female with history significant for hypertension, diabetes, atrial fibrillation s/p ablation, on Coumadin, left lower extremity DVT, asthma, COPD presents with lethargy. Mri of the neck: LOss of flow void in the distal left internal carotid artery consistent with severe proximal stenosis vs occlusion. Correlation with MRA of the head and neck is recommended. recommended MRA of the neck but is not recommended since her creatine is 4.0 .Consulted . and neuro . # Acute lethargy: continues, waxing and weaning , was back to her normal yesterday but today is lethargic, as per her daughter ,when patient becomes depressed she becomes lethargic and sleeps most of the day. most likely due to METABOLIC ENCEPHALOPATHY, repeat CT of the head : negative , no changes # Acute hypoxemia on oxygen discussed with Dr. Fletcher continue current care # Acute UTI s/p Levofloxacin 500 mg once and 250 mg q 48 hrs completed, monitor off abx , id on the case. # Hx of DVT with therapeutic INR now, will continue coumadin 7.0mg, Echo reviewed. daily PT/INR # ARF: 3.7--->4.0-->3.7-->3.8-->4.0 today avoid nephrotoxic drugs. Nephro on the case, s/p IVF follow with Nephro . continue sodium Bicarb. # Hx of COPD continue symbicort, nebs tx continue. Pulmonary on the case # T2DM continue Levemir # HTN: continue her home meds. DVT Px: Heparin, coumadin daily PT/INR , follow PT /INR closely , monitor the dose of coumadin on a daily basis as well
--- NOTE | 2018-10-17 19:19 | PN ---
Progress Note, Physician History of Present Illness: Pt lethargic but without distress, remains afebrile. Mental status waxes and wanes. - Current Medication List Current Medications: Active Medications Albuterol/Ipratropium (Duoneb -) 1 amp NEB Q6H PRN PRN Reason: SHORTNESS OF BREATH Amlodipine Besylate (Norvasc -) 10 mg PO DAILY [facility] Last Admin: 10/17/18 09:17 Dose: 10 mg Arformoterol Tartrate (Brovana (Restricted To Pulmonology/Resp) -) 1 amp NEB RBID [facility] Last Admin: 10/17/18 08:17 Dose: 1 amp Artificial Tears (Artificial Tears) 1 drop OU BID PRN PRN Reason: DRY EYES Last Admin: 10/17/18 10:30 Dose: 1 drop Atorvastatin Calcium (Lipitor -) 80 mg PO HS [facility] Calcium Acetate (Phoslo -) 667 mg PO TIDCM [facility] Last Admin: 10/17/18 18:22 Dose: 667 mg Cholecalciferol (Vitamin D3 -) 5,000 unit PO DAILY [facility] Last Admin: 10/17/18 09:17 Dose: 5,000 unit Erythromycin (Erythromycin 0.5% Eye Ointment) 1 applic OU DAILY [facility] Last Admin: 10/17/18 09:19 Dose: 1 applic Hydralazine HCl (Apresoline -) 100 mg PO TID [facility] Last Admin: 10/17/18 13:39 Dose: 100 mg Insulin Aspart (Novolog Vial Sliding Scale -) 1 vial SQ [facility]; Protocol Last Admin: 10/17/18 17:15 Dose: 4 units Insulin Detemir (Levemir Vial) 10 units SQ [facility] Last Admin: 10/16/18 22:27 Dose: 10 units Labetalol HCl (Normodyne -) 200 mg PO BID [facility] Last Admin: 10/17/18 09:17 Dose: 200 mg Pantoprazole Sodium (Protonix -) 40 mg PO DAILY [facility] Last Admin: 10/17/18 09:17 Dose: 40 mg Torsemide (Demadex -) 40 mg PO DAILY [facility] Last Admin: 10/17/18 09:17 Dose: 40 mg Warfarin Sodium 5 mg/ Warfarin (Sodium 2 mg) 7 mg PO DAILY@1800 [facility] - Objective Vital Signs: Vital Signs Temperature 98.3 F 10/17/18 15:27 Pulse Rate 68 10/17/18 15:27 Respiratory Rate 20 10/17/18 15:27 Blood Pressure 140/61 10/17/18 15:27 O2 Sat by Pulse Oximetry (%) 100 10/17/18 13:51 Constitutional: Yes: No Distress, Calm Eyes: Yes: Conjunctiva Clear HENT: Yes: Atraumatic Neck: Yes: Supple Cardiovascular: Yes: Regular Rate and Rhythm Respiratory: Yes: Rales (basilar) Gastrointestinal: Yes: Normal Bowel Sounds, Soft, Abdomen, Obese Genitourinary: Yes: WNL Musculoskeletal: Yes: WNL Extremities: Yes: WNL Integumentary: Yes: WNL Neurological: Yes: Lethargy Labs: CBC, BMP 10/17/18 11:10 10/17/18 11:10 INR, PTT INR 2.44 (0.83-1.09) H 10/17/18 11:10 Laboratory Results - last 24 hr 10/16/18 10/17/18 10/17/18 22:24 06:57 10:34 WBC RBC Hgb Hct MCV MCH MCHC RDW Plt Count MPV Absolute Neuts (auto) Neutrophils % Lymphocytes % Monocytes % Eosinophils % Basophils % Nucleated RBC % PT with INR INR Puncture Site ABG pH ABG pCO2 at Pt Temp ABG pO2 at Pt Temp ABG HCO3 ABG O2 Sat (Measured) ABG O2 Content ABG Base Excess Cr Test Oxygen Flow Rate Sodium Potassium Chloride Carbon Dioxide Anion Gap BUN Creatinine Est GFR (CKD-EPI)AfAm Est GFR (CKD-EPI)NonAf POC Glucometer 240 97 151 Random Glucose Calcium Phosphorus Magnesium Total Bilirubin AST ALT Alkaline Phosphatase Total Protein Albumin TSH 10/17/18 10/17/18 10/17/18 11:10 11:10 11:10 WBC 6.1 RBC 2.57 L Hgb 8.2 L Hct 25.2 L MCV 97.8 H MCH 31.9 MCHC 32.6 RDW 15.5 Plt Count 237 MPV 8.9 Absolute Neuts (auto) 3.1 Neutrophils % 50.5 Lymphocytes % 34.1 Monocytes % 13.6 H Eosinophils % 0.9 Basophils % 0.9 Nucleated RBC % 0 PT with INR 29.10 H INR 2.44 H Puncture Site ABG pH ABG pCO2 at Pt Temp ABG pO2 at Pt Temp ABG HCO3 ABG O2 Sat (Measured) ABG O2 Content ABG Base Excess Cr Test Oxygen Flow Rate Sodium 143 Potassium 4.0 Chloride 104 Carbon Dioxide 31 Anion Gap 8 BUN 57.4 H Creatinine 4.4 H Est GFR (CKD-EPI)AfAm 10.35 Est GFR (CKD-EPI)NonAf 8.93 POC Glucometer Random Glucose 163 H Calcium 8.6 Phosphorus 3.2 Magnesium 1.9 Total Bilirubin 0.4 AST 14 L ALT 14 Alkaline Phosphatase 44 L Total Protein 5.7 L Albumin 2.8 L TSH 1.50 10/17/18 10/17/18 13:11 16:09 WBC RBC Hgb Hct MCV MCH MCHC RDW Plt Count MPV Absolute Neuts (auto) Neutrophils % Lymphocytes % Monocytes % Eosinophils % Basophils % Nucleated RBC % PT with INR INR Puncture Site Right radial ABG pH 7.50 H ABG pCO2 at Pt Temp 37.8 ABG pO2 at Pt Temp 145 H ABG HCO3 29.4 H ABG O2 Sat (Measured) 99.5 H ABG O2 Content 11.7 L ABG Base Excess 6.1 H Cr Test Positive Oxygen Flow Rate 40 Sodium Potassium Chloride Carbon Dioxide Anion Gap BUN Creatinine Est GFR (CKD-EPI)AfAm Est GFR (CKD-EPI)NonAf POC Glucometer 250 Random Glucose Calcium Phosphorus Magnesium Total Bilirubin AST ALT Alkaline Phosphatase Total Protein Albumin TSH Microbiology 10/12/18 13:22 Blood - Peripheral Venous Blood Culture - Final NO GROWTH AFTER 5 DAYS INCUBATION 10/12/18 13:40 Blood - Peripheral Venous Blood Culture - Final NO GROWTH AFTER 5 DAYS INCUBATION 10/12/18 13:45 Urine - Urine Clean Catch Urine Culture - Final Normal Urogenital Annemarie 10/08/18 16:53 Urine - Urine - Catheterized Urine Culture - Final Pseudomonas Aeruginosa Lactose Fermenting Neg Bacilli Problem List - Problems (1) Lethargy Code(s): R53.83 - OTHER FATIGUE (2) CHF (congestive heart failure) Code(s): I50.9 - HEART FAILURE, UNSPECIFIED Qualifiers: Heart failure type: diastolic (3) Acute on chronic renal insufficiency Code(s): N28.9 - DISORDER OF KIDNEY AND URETER, UNSPECIFIED; N18.9 - CHRONIC KIDNEY DISEASE, UNSPECIFIED (4) COPD exacerbation Code(s): J44.1 - CHRONIC OBSTRUCTIVE PULMONARY DISEASE W (ACUTE) EXACERBATION (5) Afib Code(s): I48.91 - UNSPECIFIED ATRIAL FIBRILLATION Qualifiers: Atrial fibrillation type: paroxysmal Qualified Code(s): I48.0 - Paroxysmal atrial fibrillation (6) CAD (coronary artery disease) Code(s): I25.10 - ATHSCL HEART DISEASE OF [place] CORONARY ARTERY W/O ANG PCTRS (7) CKD (chronic kidney disease) Code(s): N18.9 - CHRONIC KIDNEY DISEASE, UNSPECIFIED (8) Hyperlipidemia Code(s): E78.5 - HYPERLIPIDEMIA, UNSPECIFIED Qualifiers: Hyperlipidemia type: pure hypercholesterolemia Qualified Code(s): E78.00 - Pure hypercholesterolemia, unspecified; E78.0 - Pure hypercholesterolemia (9) Hypertension Code(s): I10 - ESSENTIAL (PRIMARY) HYPERTENSION Qualifiers: Hypertension type: essential hypertension Qualified Code(s): I10 - Essential (primary) hypertension (10) IDDM (insulin dependent diabetes mellitus) Code(s): E11.9 - TYPE 2 DIABETES MELLITUS WITHOUT COMPLICATIONS; Z79.4 - CONVERSION WORKER (CURRENT) USE OF INSULIN (11) Obstructive sleep apnea Code(s): G47.33 - OBSTRUCTIVE SLEEP APNEA (ADULT) (PEDIATRIC) (12) Peripheral arterial disease Code(s): I73.9 - PERIPHERAL VASCULAR DISEASE, UNSPECIFIED Assessment/Plan -- Pt lethargic, remains afebrile/without leukocytosis without distress -- Neurology following, MRI head done -- Vascular to evaluate -- monitor temps/vitals closely, s/p course of antibiotics
[2018-10-17] MEDS: ATORVASTATIN CA 80 MG TABLET (FP) PO SCH (22:53)
[2018-10-17] MEDS: INSULIN (LEVEMIR) 100 UNITS/ML UNITS SQ SCH (22:54)
[2018-10-18] MEDS: hydrALAZINE HCL 50 MG TABLET (FP) PO SCH ×3 (06:13→22:05)
[2018-10-18] MEDS: INSULIN SLIDING SCALE (NOVOLOG) 1 VIAL SQ SCH ×4 (06:14→22:09)
[2018-10-18 07:21] LABS: EOS % 0.7 % (0-4.5); HEMATOCRIT 25.4 % (32.4-45.2); HEMOGLOBIN 8.2 GM/dL (10.7-15.3); LYMPH % 31.8 % (8-40); MCH 31.9 pg (25.7-33.7); MCHC 32.5 g/dl (32.0-36.0); MEAN PLT VOLUME 8.9 fl (7.5-11.1); NEUT % 54.5 % (42.8-82.8); PLATELET COUNT 227 K/MM3 (134-434); RBC 2.59 M/mm3 (3.60-5.2); RDW 15.2 % (11.6-15.6); WHITE BLOOD COUNT 6.3 K/mm3 (4.0-10.0)
[2018-10-18 07:25] LABS: INR 1.95 (0.83-1.09); PROTHROMBIN TIME (PATIENT) 23.2 SEC (9.7-13.0)
[2018-10-18] MEDS: ARFORMOTEROL TARTRATE 15 MCG/2 ML VIAL NEB SCH ×2 (07:40→20:18)
[2018-10-18 07:42] LABS: ALBUMIN 2.8 g/dl (3.4-5.0); BILIRUBIN,TOTAL 0.5 mg/dL (0.2-1); CALCIUM 8.8 mg/dL (8.5-10.1); CREATININE 4.3 mg/dL (0.55-1.3); POTASSIUM 3.8 mmol/L (3.5-5.1); TOT PROT 5.6 g/dl (6.4-8.2)
--- NOTE | 2018-10-18 07:49 | CONSULT ---
- Consultation REQUESTING PROVIDER: CONSULT REQUEST: We have been asked to surgically evaluate this patient for ( carotid stenosis). PCP:Benja Arroyo MD HISTORY OF PRESENT ILLNESS: 77 y/o F w/ PMHx DM, HTN, COPD, CKD4, Afib, and CHF BIBEMS from [facility] for increasing lethargy. Vascular consulted for incidental finding of carotid stenosis. History obtained from emr and minimally from pt due to periods of lethargy/confusion. Pt denies h/o CVA, ue/le weakness , difficulty speaking, amaurosis fugax. PMHx: as above PSHx: Colonoscopy (a few polyps removed a couple years ago), Hysterectomy (fibroids), Tubal ligation, Upper endoscopy Home Medications Medication Instructions Recorded Albuterol 0.083% Nebulizer Norma 1 amp NEB Q4H PRN #0 amp 09/15/18 [Ventolin 0.083% Nebulizer Soln -] Albuterol 2.5/Ipratropium 0.5 1 amp NEB QID PRN 30 Days amp 09/15/18 [Duoneb -] Budesonide/Formeterol Fumarate 2 puff IH BID inhaler 09/15/18 [SYMBICORT 160/4.5mcg -] Folic Acid - 1 mg PO DAILY tablet 09/15/18 Furosemide [Lasix -] 40 mg PO DAILY #30 tablet 09/15/18 Insulin (Levemir) [Levemir Vial] 10 units SQ DAILY@0800 #3 ml 09/15/18 Insulin (Levemir) [Levemir Vial] 24 units SQ HS #6 ml 09/15/18 Labetalol HCl [Normodyne -] 200 mg PO BID #60 tablet 09/15/18 Sodium Bicarbonate - 650 mg PO BID tablet 09/15/18 Warfarin Sodium [Coumadin] 7.5 mg PO HS #30 tablet 09/15/18 Hydralazine HCl 100 mg PO TID #90 tablet 09/16/18 Amlodipine Besylate [Norvasc -] 10 mg PO DAILY 10/08/18 Calcium Acetate 667 mg PO TID 10/08/18 Cholecalciferol (Vitamin D3) 5,000 unit PO DAILY 10/08/18 [Vitamin D3] Insulin Sliding Scale [Novolog 1 unit SQ ASDIR PRN 08/09/19 Vial Sliding Scale -] Pantoprazole Sodium 40 mg PO DAILY 10/08/18 Diltiazem HCl [Diltiazem 24Hr ER 120 mg PO DAILY 10/09/18 (Cd)] Allergies Allergy/AdvReac Type Severity Reaction Status Date / Time No Known Allergies Allergy Verified 09/07/18 12:50 REVIEW OF SYSTEMS: CONSTITUTIONAL: Absent: fever, chills CARDIOVASCULAR: Absent: chest pain RESPIRATORY: Absent: cough, shortness of breath GASTROINTESTINAL: Absent: abdominal pain PHYSICAL EXAM: GENERAL: Awake, alert, oriented x 3. Periods of confusion. Not fully cooperative with exam HEAD: Turned to left ?torticollis. tongue protrudes midline. NEUROLOGICAL: b/l ue's weak but equal. Does not cooperate with le exam. Vital Signs Temperature 98.3 F 10/18/18 04:00 Pulse Rate 73 10/18/18 04:00 Respiratory Rate 20 10/18/18 04:00 Blood Pressure 143/53 L 10/18/18 04:00 O2 Sat by Pulse Oximetry (%) 98 10/18/18 00:16 Lab Results WBC 6.1 K/mm3 (4.0-10.0) 10/17/18 11:10 RBC 2.57 M/mm3 (3.60-5.2) L 10/17/18 11:10 Hgb 8.2 GM/dL (10.7-15.3) L 10/17/18 11:10 Hct 25.2 % (32.4-45.2) L 10/17/18 11:10 MCV 97.8 fl (80-96) H 10/17/18 11:10 MCHC 32.6 g/dl (32.0-36.0) 10/17/18 11:10 RDW 15.5 % (11.6-15.6) 10/17/18 11:10 Plt Count 237 K/MM3 (134-434) 10/17/18 11:10 Sodium 143 mmol/L (136-145) 10/18/18 06:30 Potassium 3.8 mmol/L (3.5-5.1) 10/18/18 06:30 Chloride 104 mmol/L (98-107) 10/18/18 06:30 Carbon Dioxide 32 mmol/L (21-32) 10/18/18 06:30 Anion Gap 7 MMOL/L (8-16) L 10/18/18 06:30 BUN 53.0 mg/dL (7-18) H 10/18/18 06:30 Creatinine 4.3 mg/dL (0.55-1.3) H 10/18/18 06:30 Random Glucose 129 mg/dL (74-106) H 10/18/18 06:30 Calcium 8.8 mg/dL (8.5-10.1) 10/18/18 06:30 Blood Type A POSITIVE 10/08/18 15:54 Antibody Screen Negative 10/08/18 15:54 INR 1.95 (0.83-1.09) H 10/18/18 06:30 CTH (10/13/18): No evidence of acute intracranial pathology. Moderate periventricular and subcortical chronic microvascular ischemic changes are seen. There has been no definite interval change in comparison to a prior CT study of 10/08/2018. MRI Brain (10/16/18): Moderate atrophy and periventicular chronic microvascular ischemic disease changes. B/L centrum semivale chronic lacunar infarcts. No mass lesion, acute infarct or intracranial hemorrhage are identified. Loss of flow void in the distal left internal carotid artery consistent with severe proximal stenosis vs occlusion. A/P: 77 y/o F w/ PMHx DM, HTN, COPD, CKD4, Afib, and CHF BIBEMS from [facility] [place] for increasing lethargy. Vascular consulted for incidental finding of carotid stenosis. Carotid duplex pending -Ideally would like CTA of neck however pt with CKD and creatinine >4 -Will f/u MRA -Continue statin, consider ASA 81mg qd if no contraindications pt seen and examined with attending Dr Jay
[2018-10-18] MEDS: CALCIUM ACETATE 667 MG CAPSULE (FP) PO SCH ×3 (09:51→16:48)
[2018-10-18] MEDS: TORSEMIDE 20 MG TABLET (FP) PO SCH (09:52)
[2018-10-18] MEDS: amLODIPine BESYLATE 10 MG TABLET (FP) PO SCH (09:52)
[2018-10-18] MEDS: LABETALOL HCL 200 MG TABLET (FP) PO SCH ×2 (09:52→22:05)
[2018-10-18] MEDS: PANTOPRAZOLE 40 MG TABLET (FP) PO SCH (09:52)
[2018-10-18] MEDS: ERYTHROMYCIN 0.5% OPHTHALMIC OINTMENT 3.5 GM TUBE OU SCH (09:53)
[2018-10-18] MEDS: CHOLECALCIFEROL (VIT D3) 1,000 UNIT (25 MCG) TABLET PO SCH (09:53)
--- NOTE | 2018-10-18 12:00 | PN ---
Progress Note, Physician History of Present Illness: continues to be drowsy and lethargy going for mri patient did manage to eat something this morning - Current Medication List Current Medications: Active Medications Albuterol/Ipratropium (Duoneb -) 1 amp NEB Q6H PRN PRN Reason: SHORTNESS OF BREATH Amlodipine Besylate (Norvasc -) 10 mg PO DAILY [facility] Last Admin: 10/18/18 09:52 Dose: 10 mg Arformoterol Tartrate (Brovana (Restricted To Pulmonology/Resp) -) 1 amp NEB RBID [facility] Last Admin: 10/18/18 07:40 Dose: 1 amp Artificial Tears (Artificial Tears) 1 drop OU BID PRN PRN Reason: DRY EYES Last Admin: 10/17/18 10:30 Dose: 1 drop Atorvastatin Calcium (Lipitor -) 80 mg PO HS [facility] Last Admin: 10/17/18 22:53 Dose: 80 mg Calcium Acetate (Phoslo -) 667 mg PO TIDCM [facility] Last Admin: 10/18/18 09:51 Dose: 667 mg Cholecalciferol (Vitamin D3 -) 5,000 unit PO DAILY [facility] Last Admin: 10/18/18 09:53 Dose: 5,000 unit Erythromycin (Erythromycin 0.5% Eye Ointment) 1 applic OU DAILY [facility] Last Admin: 10/18/18 09:53 Dose: 1 applic Hydralazine HCl (Apresoline -) 100 mg PO TID [facility] Last Admin: 10/18/18 06:13 Dose: 100 mg Insulin Aspart (Novolog Vial Sliding Scale -) 1 vial SQ [facility]; Protocol Last Admin: 10/18/18 11:31 Dose: Not Given Insulin Detemir (Levemir Vial) 10 units SQ [facility] Last Admin: 10/17/18 22:54 Dose: 10 units Labetalol HCl (Normodyne -) 200 mg PO BID [facility] Last Admin: 10/18/18 09:52 Dose: 200 mg Pantoprazole Sodium (Protonix -) 40 mg PO DAILY [facility] Last Admin: 10/18/18 09:52 Dose: 40 mg Torsemide (Demadex -) 40 mg PO DAILY [facility] Last Admin: 10/18/18 09:52 Dose: 40 mg Warfarin Sodium 5 mg/ Warfarin (Sodium 2 mg) 7 mg PO DAILY@1800 [facility] - Objective Vital Signs: Vital Signs Temperature 98.3 F 10/18/18 04:00 Pulse Rate 73 10/18/18 04:00 Respiratory Rate 20 10/18/18 04:00 Blood Pressure 143/53 L 10/18/18 04:00 O2 Sat by Pulse Oximetry (%) 96 10/18/18 10:18 Constitutional: Yes: No Distress, Calm Cardiovascular: Yes: S1, S2 Respiratory: Yes: Regular, CTA Bilaterally Gastrointestinal: Yes: Normal Bowel Sounds, Soft Musculoskeletal: Yes: WNL Extremities: Yes: WNL Neurological: Yes: Lethargy, Other Psychiatric: Yes: Other Labs: CBC, BMP 10/18/18 06:30 10/18/18 06:30 INR, PTT INR 1.95 (0.83-1.09) H 10/18/18 06:30 Assessment/Plan Problem List - Problems (1) Lethargy Code(s): R53.83 - OTHER FATIGUE (2) Acute on chronic renal insufficiency Code(s): N28.9 - DISORDER OF KIDNEY AND URETER, UNSPECIFIED; N18.9 - CHRONIC KIDNEY DISEASE, UNSPECIFIED (3) CHF (congestive heart failure) Code(s): I50.9 - HEART FAILURE, UNSPECIFIED Qualifiers: Heart failure type: diastolic (4) Anemia Code(s): D64.9 - ANEMIA, UNSPECIFIED Qualifiers: Chronic kidney disease stage: stage 4 (severe) (5) Afib Code(s): I48.91 - UNSPECIFIED ATRIAL FIBRILLATION Qualifiers: Atrial fibrillation type: paroxysmal Qualified Code(s): I48.0 - Paroxysmal atrial fibrillation (6) CAD (coronary artery disease) Code(s): I25.10 - ATHSCL HEART DISEASE OF [place] CORONARY ARTERY W/O ANG PCTRS (7) Hypertension Code(s): I10 - ESSENTIAL (PRIMARY) HYPERTENSION Qualifiers: Hypertension type: essential hypertension Qualified Code(s): I10 - Essential (primary) hypertension (8) Type 2 diabetes mellitus Code(s): E11.9 - TYPE 2 DIABETES MELLITUS WITHOUT COMPLICATIONS Qualifiers: Diabetes mellitus complication status: with circulatory complication (9) Obstructive sleep apnea Code(s): G47.33 - OBSTRUCTIVE SLEEP APNEA (ADULT) (PEDIATRIC) (10) UTI (urinary tract infection) Code(s): N39.0 - URINARY TRACT INFECTION, SITE NOT SPECIFIED plan continue current mgmt monitor resp status rest as per the team monitor mental status await for all results
--- NOTE | 2018-10-18 13:56 | PN ---
Progress Note (short form) - Note Progress Note: PULMONARY More awake. Denies cough or wheezing. Used BiPAP overnight. Vital Signs Period Temp Pulse Resp BP Sys/Renee Pulse Ox Last 24 Hr 98.3 F-98.6 F 68-73 20-20 125-143/45-61 96-100 Gen: mildly tachypneic at rest Heart: RRR Lung: distant breath sounds Abd: soft, nontender Ext: no edema CBC, BMP 10/18/18 06:30 10/18/18 06:30 Active Medications Albuterol/Ipratropium (Duoneb -) 1 amp NEB Q6H PRN PRN Reason: SHORTNESS OF BREATH Amlodipine Besylate (Norvasc -) 10 mg PO DAILY [facility] Last Admin: 10/18/18 09:52 Dose: 10 mg Arformoterol Tartrate (Brovana (Restricted To Pulmonology/Resp) -) 1 amp NEB RBID [facility] Last Admin: 10/18/18 07:40 Dose: 1 amp Artificial Tears (Artificial Tears) 1 drop OU BID PRN PRN Reason: DRY EYES Last Admin: 10/17/18 10:30 Dose: 1 drop Atorvastatin Calcium (Lipitor -) 80 mg PO HS [facility] Last Admin: 10/17/18 22:53 Dose: 80 mg Calcium Acetate (Phoslo -) 667 mg PO TIDCM [facility] Last Admin: 10/18/18 12:33 Dose: 667 mg Cholecalciferol (Vitamin D3 -) 5,000 unit PO DAILY [facility] Last Admin: 10/18/18 09:53 Dose: 5,000 unit Erythromycin (Erythromycin 0.5% Eye Ointment) 1 applic OU DAILY [facility] Last Admin: 10/18/18 09:53 Dose: 1 applic Hydralazine HCl (Apresoline -) 100 mg PO TID [facility] Last Admin: 10/18/18 13:04 Dose: 100 mg Insulin Aspart (Novolog Vial Sliding Scale -) 1 vial SQ [facility]; Protocol Last Admin: 10/18/18 11:31 Dose: Not Given Insulin Detemir (Levemir Vial) 10 units SQ HS [facility] Last Admin: 10/17/18 22:54 Dose: 10 units Labetalol HCl (Normodyne -) 200 mg PO BID [facility] Last Admin: 10/18/18 09:52 Dose: 200 mg Pantoprazole Sodium (Protonix -) 40 mg PO DAILY [facility] Last Admin: 10/18/18 09:52 Dose: 40 mg Torsemide (Demadex -) 40 mg PO DAILY [facility] Last Admin: 10/18/18 09:52 Dose: 40 mg Warfarin Sodium 5 mg/ Warfarin (Sodium 2 mg) 7 mg PO DAILY@1800 [facility] A/P Acute COPD Exacerbation LV Diastolic Dysfunction Pulmonary HTN CAD Atrial Fibrillation Acute on Chronic Renal Failure h/o DVT DM Anemia - inhaled bronchodilators - O2 to keep SpO2 >90% - BiPAP at night - rate control - continue anticoagulation - continue torsemide - monitor urine output, creatinine - continue discussions regarding goals of care
--- NOTE | 2018-10-18 15:19 | PN ---
Progress Note (short form) - Note Progress Note: Renal follow up for CKD Pt seen and examined at the bedside awake but drowsy denies any CP, abd pain, sob Vital Signs Temperature 98.8 F 10/18/18 14:46 Pulse Rate 71 10/18/18 14:46 Respiratory Rate 20 10/18/18 14:46 Blood Pressure 118/47 L 10/18/18 14:46 O2 Sat by Pulse Oximetry (%) 96 10/18/18 10:18 Intake & Output 10/15/18 10/16/18 10/17/18 10/18/18 23:59 23:59 23:59 23:59 Intake Total 130 150 250 510 Balance 130 150 250 510 Weight 95.254 kg 95.708 kg 91.943 kg 94.971 kg NAD awake and alert RRR Dec BS no LE edema CBC, BMP 10/18/18 06:30 10/18/18 06:30 Current Medications Albuterol/Ipratropium (Duoneb -) 1 amp NEB Q6H PRN PRN Reason: SHORTNESS OF BREATH Amlodipine Besylate (Norvasc -) 10 mg PO DAILY [facility] Last Admin: 10/18/18 09:52 Dose: 10 mg Arformoterol Tartrate (Brovana (Restricted To Pulmonology/Resp) -) 1 amp NEB RBID [facility] Last Admin: 10/18/18 07:40 Dose: 1 amp Artificial Tears (Artificial Tears) 1 drop OU BID PRN PRN Reason: DRY EYES Last Admin: 10/17/18 10:30 Dose: 1 drop Atorvastatin Calcium (Lipitor -) 80 mg PO HS [facility] Last Admin: 10/17/18 22:53 Dose: 80 mg Calcium Acetate (Phoslo -) 667 mg PO TIDCM [facility] Last Admin: 10/18/18 12:33 Dose: 667 mg Cholecalciferol (Vitamin D3 -) 5,000 unit PO DAILY [facility] Last Admin: 10/18/18 09:53 Dose: 5,000 unit Erythromycin (Erythromycin 0.5% Eye Ointment) 1 applic OU DAILY [facility] Last Admin: 10/18/18 09:53 Dose: 1 applic Hydralazine HCl (Apresoline -) 100 mg PO TID [facility] Last Admin: 10/18/18 13:04 Dose: 100 mg Insulin Aspart (Novolog Vial Sliding Scale -) 1 vial SQ [facility]; Protocol Last Admin: 10/18/18 11:31 Dose: Not Given Insulin Detemir (Levemir Vial) 10 units SQ HS [facility] Last Admin: 10/17/18 22:54 Dose: 10 units Labetalol HCl (Normodyne -) 200 mg PO BID [facility] Last Admin: 10/18/18 09:52 Dose: 200 mg Pantoprazole Sodium (Protonix -) 40 mg PO DAILY [facility] Last Admin: 10/18/18 09:52 Dose: 40 mg Torsemide (Demadex -) 40 mg PO DAILY [facility] Last Admin: 10/18/18 09:52 Dose: 40 mg Warfarin Sodium 5 mg/ Warfarin (Sodium 2 mg) 7 mg PO DAILY@1800 [facility] 77 year old woman with history of 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 #CKD stage 4/5, renal function stable #CHF with pulmonary congestion #COPD/Chronic dyspnea #LE edema #Hypertension #Acute on Chronic anemia BUN/Cr slowly rising, will decrease torsemide to 20mg daily no emergent indication for PROFESSOR OF ANTHROPOLOGY despite eGFR < 15 continue PO torsemide, edema now resolved s/p Aranesp SC for CKD related anemia on 10/11, will give additional dose today continue Nebs per pulmonary, BIPAP as needed overall prognosis is guarded Neurology and pulmonary follow up cannot get Reyes exposure as her eGFR < 15 Thank you Tylor Funez DO
[2018-10-18] MEDS ORDERED: Darbepoetin Alfa in Polysorbat 40 MCG/0.4 DISP.SYRIN SQ ONE (15:20)
--- NOTE | 2018-10-18 15:49 | PN ---
Teaching Attending Note Name of Resident: Sridhar Monk ATTENDING PHYSICIAN STATEMENT I saw and evaluated the patient. I reviewed the resident's note and discussed the case with the resident. I agree with the resident's findings and plan as documented. SUBJECTIVE: Patient having periods of lethargy. OBJECTIVE: Vital Signs Period Temp Pulse Resp BP Sys/Renee Pulse Ox Last 24 Hr 98.2 F-98.8 F 68-73 20-20 118-143/45-61 96-100 HEART: S1S2, RRR LUNGS: Clear with decreased BS ABDOMEN: Obese, soft, non-tender, non-distended, normal BS EXTREMITIES: No edema Laboratory Results - last 24 hr 10/17/18 10/17/18 10/18/18 16:09 22:52 06:12 WBC RBC Hgb Hct MCV MCH MCHC RDW Plt Count MPV Absolute Neuts (auto) Neutrophils % Lymphocytes % Monocytes % Eosinophils % Basophils % Nucleated RBC % PT with INR INR Sodium Potassium Chloride Carbon Dioxide Anion Gap BUN Creatinine Est GFR (CKD-EPI)AfAm Est GFR (CKD-EPI)NonAf POC Glucometer 250 169 137 Random Glucose Calcium Total Bilirubin AST ALT Alkaline Phosphatase Total Protein Albumin 10/18/18 10/18/18 10/18/18 06:30 06:30 06:30 WBC 6.3 RBC 2.59 L Hgb 8.2 L Hct 25.4 L MCV 98.0 H MCH 31.9 MCHC 32.5 RDW 15.2 Plt Count 227 MPV 8.9 Absolute Neuts (auto) 3.4 Neutrophils % 54.5 Lymphocytes % 31.8 Monocytes % 12.0 H Eosinophils % 0.7 Basophils % 1.0 Nucleated RBC % 0 PT with INR 23.20 H INR 1.95 H Sodium 143 Potassium 3.8 Chloride 104 Carbon Dioxide 32 Anion Gap 7 L BUN 53.0 H Creatinine 4.3 H Est GFR (CKD-EPI)AfAm 10.64 Est GFR (CKD-EPI)NonAf 9.18 POC Glucometer Random Glucose 129 H Calcium 8.8 Total Bilirubin 0.5 AST 15 ALT 12 L Alkaline Phosphatase 41 L Total Protein 5.6 L Albumin 2.8 L 10/18/18 11:30 WBC RBC Hgb Hct MCV MCH MCHC RDW Plt Count MPV Absolute Neuts (auto) Neutrophils % Lymphocytes % Monocytes % Eosinophils % Basophils % Nucleated RBC % PT with INR INR Sodium Potassium Chloride Carbon Dioxide Anion Gap BUN Creatinine Est GFR (CKD-EPI)AfAm Est GFR (CKD-EPI)NonAf POC Glucometer 150 Random Glucose Calcium Total Bilirubin AST ALT Alkaline Phosphatase Total Protein Albumin Current Medications Generic Name Dose Route Start Last Admin Trade Name Freq PRN Reason Stop Dose Admin Albuterol/Ipratropium 1 amp 10/17/18 11:46 Duoneb - NEB Q6H PRN SHORTNESS OF BREATH Amlodipine Besylate 10 mg 10/09/18 10:00 10/18/18 09:52 Norvasc - PO 10 mg DAILY [facility] Administration Arformoterol Tartrate 1 amp 10/14/18 20:00 10/18/18 07:40 Brovana (Restricted To Pulmonology/Resp) - NEB 1 amp RBID [facility] Administration Artificial Tears 1 drop 10/14/18 10:43 10/17/18 10:30 Artificial Tears OU 1 drop BID PRN Administration DRY EYES Atorvastatin Calcium 80 mg 10/17/18 22:00 10/17/18 22:53 Lipitor - PO 80 mg HS [facility] Administration Calcium Acetate 667 mg 10/09/18 08:00 10/18/18 12:33 Phoslo - PO 667 mg TIDCM [facility] Administration Cholecalciferol 5,000 unit 10/09/18 10:00 10/18/18 09:53 Vitamin D3 - PO 5,000 unit DAILY [facility] Administration Erythromycin 1 applic 10/14/18 10:45 10/18/18 09:53 Erythromycin 0.5% Eye Ointment OU 1 applic DAILY [facility] Administration Hydralazine HCl 100 mg 10/08/18 22:00 10/18/18 13:04 Apresoline - PO 100 mg TID [facility] Administration Insulin Aspart 1 vial 10/09/18 07:00 10/18/18 11:31 Novolog Vial Sliding Scale - SQ Not Given ACHS [facility] Protocol Insulin Detemir 10 units 10/12/18 13:44 10/17/18 22:54 Levemir Vial SQ 10 units HS [facility] Administration Labetalol HCl 200 mg 10/08/18 22:00 10/18/18 09:52 Normodyne - PO 200 mg BID [facility] Administration Pantoprazole Sodium 40 mg 10/09/18 10:00 10/18/18 09:52 Protonix - PO 40 mg DAILY [facility] Administration Torsemide 40 mg 10/15/18 10:00 10/18/18 09:52 Demadex - PO 40 mg DAILY [facility] Administration Warfarin Sodium 5 mg/ Warfarin 7 mg 10/18/18 18:00 Sodium 2 mg PO DAILY@1800 [facility] ASSESSMENT AND PLAN: This is a 77 year old woman with a history of HTN, hyperlipidemia, CAD, type 2 DM, atrial flutter, PAF, chronic diastolic heart failure, COPD, obesity, PAD, stage 4-5 CKD, DVT who presented to the ED with lethargy, altered mental status , and anasarca. 1. Acute exacerbation of COPD - Continue Brovana, DuoNeb as needed - Oxygen to maintain saturation >90% 2. Obesity hypoventilation syndrome - Continue BIPAP at night 3. Acute metabolic encephalopathy - Appears to be improving 4. Acute on chronic diastolic heart failure - Improved - Continue Torsemide 5. UTI - Completed antibiotics 6. Stage 4-5 CKD - Slight improvement in BUN/creatinine today 7. HTN - Continue Norvasc, Hydralazine, Labetalol, Torsemide 8. Hyperlipidemia - Continue Lipitor 9. Type 2 DM - Continue Levemir, Novolog sliding scale 10. Pulmonary HTN 11. CAD 12. History of atrial flutter, ablation 13. Paroxysmal atrial fibrillation - Remains in sinus rhythm - Continue Labetalol, Coumadin 14. History of DVT - Continue Coumadin 15. Anemia secondary to CKD - Continue Aranesp
[2018-10-18] MEDS ORDERED: WARFARIN NA 5 MG TABLET (UD) ONE (16:30)
[2018-10-18] MEDS ORDERED: WARFARIN NA 2 MG TABLET (UD) ONE (16:30)
[2018-10-18] MEDS: WARFARIN NA 5 MG, WARFARIN NA 2 MG PO SCH (17:08)
[2018-10-18] MEDS ORDERED: WARFARIN NA 7.5 MG TABLET (FP) PO ONE (18:00)
--- NOTE | 2018-10-18 18:26 | PN ---
Physical Exam: SUBJECTIVE: Patient seen and examined at bedside no acute event. OBJECTIVE: Vital Signs Period Temp Pulse Resp BP Sys/Renee Pulse Ox Last 24 Hr 98.2 F-98.9 F 69-73 20-20 118-143/45-53 96-100 GENERAL: The patient is awake, waxing and waning lethargy HEAD: Normal with no signs of trauma. NECK: supple. LUNGS: Breath sounds equal, clear to auscultation bilaterally, no wheezes, no crackles, no accessory muscle use. HEART: Regular rate and rhythm, S1, S2 without murmur, rub or gallop. ABDOMEN: Soft, nontender, nondistended, normoactive bowel sounds, no guarding, no rebound. EXTREMITIES: warm, well-perfused, no edema. NEUROLOGICAL: Cranial nerves II through XII grossly intact. gait not observed. PSYCH: depressed mood SKIN: Warm, dry, no rashes or lesions noted Laboratory Results - last 24 hr 10/17/18 10/18/18 10/18/18 22:52 06:12 06:30 WBC RBC Hgb Hct MCV MCH MCHC RDW Plt Count MPV Absolute Neuts (auto) Neutrophils % Lymphocytes % Monocytes % Eosinophils % Basophils % Nucleated RBC % PT with INR 23.20 H INR 1.95 H Sodium Potassium Chloride Carbon Dioxide Anion Gap BUN Creatinine Est GFR (CKD-EPI)AfAm Est GFR (CKD-EPI)NonAf POC Glucometer 169 137 Random Glucose Calcium Total Bilirubin AST ALT Alkaline Phosphatase Total Protein Albumin 10/18/18 10/18/18 10/18/18 06:30 06:30 11:30 WBC 6.3 RBC 2.59 L Hgb 8.2 L Hct 25.4 L MCV 98.0 H MCH 31.9 MCHC 32.5 RDW 15.2 Plt Count 227 MPV 8.9 Absolute Neuts (auto) 3.4 Neutrophils % 54.5 Lymphocytes % 31.8 Monocytes % 12.0 H Eosinophils % 0.7 Basophils % 1.0 Nucleated RBC % 0 PT with INR INR Sodium 143 Potassium 3.8 Chloride 104 Carbon Dioxide 32 Anion Gap 7 L BUN 53.0 H Creatinine 4.3 H Est GFR (CKD-EPI)AfAm 10.64 Est GFR (CKD-EPI)NonAf 9.18 POC Glucometer 150 Random Glucose 129 H Calcium 8.8 Total Bilirubin 0.5 AST 15 ALT 12 L Alkaline Phosphatase 41 L Total Protein 5.6 L Albumin 2.8 L 10/18/18 16:16 WBC RBC Hgb Hct MCV MCH MCHC RDW Plt Count MPV Absolute Neuts (auto) Neutrophils % Lymphocytes % Monocytes % Eosinophils % Basophils % Nucleated RBC % PT with INR INR Sodium Potassium Chloride Carbon Dioxide Anion Gap BUN Creatinine Est GFR (CKD-EPI)AfAm Est GFR (CKD-EPI)NonAf POC Glucometer 156 Random Glucose Calcium Total Bilirubin AST ALT Alkaline Phosphatase Total Protein Albumin Active Medications Generic Name Dose Route Start Last Admin Trade Name Freq PRN Reason Stop Dose Admin Albuterol/Ipratropium 1 amp 10/17/18 11:46 Duoneb - NEB Q6H PRN SHORTNESS OF BREATH Amlodipine Besylate 10 mg 10/09/18 10:00 10/18/18 09:52 Norvasc - PO 10 mg DAILY [facility] Administration Arformoterol Tartrate 1 amp 10/14/18 20:00 10/18/18 07:40 Brovana (Restricted To Pulmonology/Resp) - NEB 1 amp RBID [facility] Administration Artificial Tears 1 drop 10/14/18 10:43 10/17/18 10:30 Artificial Tears OU 1 drop BID PRN Administration DRY EYES Atorvastatin Calcium 80 mg 10/17/18 22:00 10/17/18 22:53 Lipitor - PO 80 mg HS [facility] Administration Calcium Acetate 667 mg 10/09/18 08:00 10/18/18 16:48 Phoslo - PO 667 mg TIDCM [facility] Administration Cholecalciferol 5,000 unit 10/09/18 10:00 10/18/18 09:53 Vitamin D3 - PO 5,000 unit DAILY [facility] Administration Erythromycin 1 applic 10/14/18 10:45 10/18/18 09:53 Erythromycin 0.5% Eye Ointment OU 1 applic DAILY [facility] Administration Hydralazine HCl 100 mg 10/08/18 22:00 10/18/18 13:04 Apresoline - PO 100 mg TID [facility] Administration Insulin Aspart 1 vial 10/09/18 07:00 10/18/18 16:17 Novolog Vial Sliding Scale - SQ 2 units ACHS [facility] Administration Protocol Insulin Detemir 10 units 10/12/18 13:44 10/17/18 22:54 Levemir Vial SQ 10 units HS [facility] Administration Labetalol HCl 200 mg 10/08/18 22:00 10/18/18 09:52 Normodyne - PO 200 mg BID [facility] Administration Pantoprazole Sodium 40 mg 10/09/18 10:00 10/18/18 09:52 Protonix - PO 40 mg DAILY [facility] Administration Torsemide 40 mg 10/15/18 10:00 10/18/18 09:52 Demadex - PO 40 mg DAILY [facility] Administration Warfarin Sodium 5 mg/ Warfarin 7 mg 10/18/18 18:00 10/18/18 17:08 Sodium 2 mg PO 7 mg DAILY@1800 [facility] Administration ASSESSMENT/PLAN: Images: MRI of brain: Lt distal ICA significant stenosis and should correlate with MRA, as well as chronic microvascular ischemic changes and chronic lacunar infarcts. MRI neck: showing C3-C4, C4-C5 disc herniations without impingement. 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 Pt is a 77 yo F with a pMhx of obesity, HTN, DM, COPD on home nightly CPAP, CKD stage IV-5 (b/l SCr: 3.4-3.6) presented with reported mentation changes and lethargy in the presence of anasarca. #COPD vs Obesity hypoventilation syndrome: - c/w brovana daily & duonebs as needed, resume nightly BIPAP or PRN BIPAP #Altered mental status - possible depression component to this vs Lethargy 2/2 hypotension coupled with poor perfusion from severe carotid stenosis, her lethargy probably waxes and wanes with acute changes to her BP from daytime to nighttime. - MRA ordered by Dr. Mccormack awaiting results - Consulted Dr. loera awaiting recs #Acute noninfectious conjunctivitis - artifical tears - erythromycin ointment - optho consulted #UTI - off abx continuing to monitor per ID. #AFib/Flutter hx: - will continue the current meds labetalol and warfarin - continuing torsemide, monitoring the renal ftn. #CKD stage V - on torsemide, volume status is improved - not requiring [employer] - c/w 650 BID PO NaHCo3, phoslo 650 TID #HTN/Acute on chronic CHF - per cardio, c/w amlodipine, labetalol, hydralazine as prescribed at home #DM - levemir 10 units @ bedtime and correction dose insulin to optimize glucose control. DVT PPx: pt on systemic AC #FEN: - Continue to monitor lytes - continue no fluids. - Low sodium, low phos, Low potassium & moderate carb diet. Visit type - Emergency Visit Emergency Visit: Yes ED Registration Date: 10/08/18 Care time: The patient presented to the Emergency Department on the above date and was hospitalized for further evaluation of their emergent condition. - New Patient This patient is new to me today: No - Critical Care Critical Care patient: No - Discharge Referral Referred to [facility] No ATTENDING PHYSICIAN STATEMENT I saw and evaluated the patient. I reviewed the resident's note and discussed the case with the resident. I agree with the resident's findings and plan as documented. SUBJECTIVE: OBJECTIVE: ASSESSMENT AND PLAN:
[2018-10-18] MEDS: ATORVASTATIN CA 80 MG TABLET (FP) PO SCH (22:05)
[2018-10-18] MEDS: INSULIN (LEVEMIR) 100 UNITS/ML UNITS SQ SCH (22:09)
[2018-10-19] MEDS: INSULIN SLIDING SCALE (NOVOLOG) 1 VIAL SQ SCH ×4 (06:17→22:05)
[2018-10-19] MEDS: hydrALAZINE HCL 50 MG TABLET (FP) PO SCH ×3 (06:17→22:04)
[2018-10-19] MEDS: ARFORMOTEROL TARTRATE 15 MCG/2 ML VIAL NEB SCH ×2 (07:20→20:24)
[2018-10-19 07:34] LABS: BASO % 1.3 % (0-2.0); EOS % 0.7 % (0-4.5); HEMATOCRIT 24.7 % (32.4-45.2); HEMOGLOBIN 8.1 GM/dL (10.7-15.3); LYMPH % 28.9 % (8-40); MCH 31.8 pg (25.7-33.7); MCHC 32.7 g/dl (32.0-36.0); MEAN CELL VOLUME 97.5 fl (80-96); MEAN PLT VOLUME 8.9 fl (7.5-11.1); MONO % 12.4 % (3.8-10.2); NEUT % 56.7 % (42.8-82.8); PLATELET COUNT 220 K/MM3 (134-434); RBC 2.54 M/mm3 (3.60-5.2); RDW 15.4 % (11.6-15.6); WHITE BLOOD COUNT 6.3 K/mm3 (4.0-10.0)
[2018-10-19 07:59] LABS: INR 1.69 (0.83-1.09); PROTHROMBIN TIME (PATIENT) 20.1 SEC (9.7-13.0)
[2018-10-19 08:04] LABS: BLOOD UREA NITROGEN 57.3 mg/dL (7-18); CALCIUM 8.7 mg/dL (8.5-10.1); CREATININE 4.1 mg/dL (0.55-1.3); PHOSPHOROUS 3.1 mg/dL (2.5-4.9); POTASSIUM 4.2 mmol/L (3.5-5.1)
[2018-10-19] MEDS: TORSEMIDE 20 MG TABLET (FP) PO SCH (09:39)
[2018-10-19] MEDS: PANTOPRAZOLE 40 MG TABLET (FP) PO SCH (09:39)
[2018-10-19] MEDS: CHOLECALCIFEROL (VIT D3) 1,000 UNIT (25 MCG) TABLET PO SCH (09:39)
[2018-10-19] MEDS: CALCIUM ACETATE 667 MG CAPSULE (FP) PO SCH ×3 (09:39→17:42)
[2018-10-19] MEDS: amLODIPine BESYLATE 10 MG TABLET (FP) PO SCH ×2 (09:41→10:21)
[2018-10-19] MEDS: LABETALOL HCL 200 MG TABLET (FP) PO SCH ×4 (09:41→22:07)
[2018-10-19] MEDS: ERYTHROMYCIN 0.5% OPHTHALMIC OINTMENT 3.5 GM TUBE OU SCH (09:42)
[2018-10-19] MEDS ORDERED: TORSEMIDE 20 MG TABLET (FP) PO SCH (09:45)
--- NOTE | 2018-10-19 11:44 | PN ---
Progress Note, Physician History of Present Illness: awake alert c/o of pain in the eyes - Current Medication List Current Medications: Active Medications Albuterol/Ipratropium (Duoneb -) 1 amp NEB Q6H PRN PRN Reason: SHORTNESS OF BREATH Amlodipine Besylate (Norvasc -) 10 mg PO DAILY [facility] Last Admin: 10/19/18 10:21 Dose: Not Given Arformoterol Tartrate (Brovana (Restricted To Pulmonology/Resp) -) 1 amp NEB RBID [facility] Last Admin: 10/19/18 07:20 Dose: 1 amp Artificial Tears (Artificial Tears) 1 drop OU BID PRN PRN Reason: DRY EYES Last Admin: 10/17/18 10:30 Dose: 1 drop Atorvastatin Calcium (Lipitor -) 80 mg PO HS [facility] Last Admin: 10/18/18 22:05 Dose: 80 mg Calcium Acetate (Phoslo -) 667 mg PO TIDCM [facility] Last Admin: 10/19/18 09:39 Dose: 667 mg Cholecalciferol (Vitamin D3 -) 5,000 unit PO DAILY [facility] Last Admin: 10/19/18 09:39 Dose: 5,000 unit Erythromycin (Erythromycin 0.5% Eye Ointment) 1 applic OU DAILY [facility] Last Admin: 10/19/18 09:42 Dose: 1 applic Hydralazine HCl (Apresoline -) 100 mg PO TID [facility] Insulin Aspart (Novolog Vial Sliding Scale -) 1 vial SQ [facility]; Protocol Last Admin: 10/19/18 06:17 Dose: Not Given Insulin Detemir (Levemir Vial) 10 units SQ [facility] Last Admin: 10/18/18 22:09 Dose: 10 units Labetalol HCl (Normodyne -) 200 mg PO BID [facility] Last Admin: 10/19/18 10:21 Dose: Not Given Pantoprazole Sodium (Protonix -) 40 mg PO DAILY [facility] Last Admin: 10/19/18 09:39 Dose: 40 mg Warfarin Sodium 5 mg/ Warfarin (Sodium 2 mg) 7 mg PO DAILY@1800 [facility] Last Admin: 10/18/18 17:08 Dose: 7 mg - Objective Vital Signs: Vital Signs Temperature 98 F 10/19/18 10:00 Pulse Rate 72 10/19/18 10:19 Respiratory Rate 18 10/19/18 10:00 Blood Pressure 133/50 L 10/19/18 10:00 O2 Sat by Pulse Oximetry (%) 99 10/19/18 10:19 Constitutional: Yes: Calm, Mild Distress Cardiovascular: Yes: S1, S2 Respiratory: Yes: Regular, CTA Bilaterally Gastrointestinal: Yes: Normal Bowel Sounds, Soft Musculoskeletal: Yes: WNL Extremities: Yes: WNL Neurological: Yes: Alert Labs: CBC, BMP 10/19/18 06:34 10/19/18 06:34 INR, PTT INR 1.69 (0.83-1.09) H 10/19/18 06:34 Assessment/Plan Problem List - Problems (1) Lethargy Code(s): R53.83 - OTHER FATIGUE (2) Acute on chronic renal insufficiency Code(s): N28.9 - DISORDER OF KIDNEY AND URETER, UNSPECIFIED; N18.9 - CHRONIC KIDNEY DISEASE, UNSPECIFIED (3) CHF (congestive heart failure) Code(s): I50.9 - HEART FAILURE, UNSPECIFIED Qualifiers: Heart failure type: diastolic (4) Anemia Code(s): D64.9 - ANEMIA, UNSPECIFIED Qualifiers: Chronic kidney disease stage: stage 4 (severe) (5) Afib Code(s): I48.91 - UNSPECIFIED ATRIAL FIBRILLATION Qualifiers: Atrial fibrillation type: paroxysmal Qualified Code(s): I48.0 - Paroxysmal atrial fibrillation (6) CAD (coronary artery disease) Code(s): I25.10 - ATHSCL HEART DISEASE OF [place] CORONARY ARTERY W/O ANG PCTRS (7) Hypertension Code(s): I10 - ESSENTIAL (PRIMARY) HYPERTENSION Qualifiers: Hypertension type: essential hypertension Qualified Code(s): I10 - Essential (primary) hypertension (8) Type 2 diabetes mellitus Code(s): E11.9 - TYPE 2 DIABETES MELLITUS WITHOUT COMPLICATIONS Qualifiers: Diabetes mellitus complication status: with circulatory complication (9) Obstructive sleep apnea Code(s): G47.33 - OBSTRUCTIVE SLEEP APNEA (ADULT) (PEDIATRIC) (10) UTI (urinary tract infection) Code(s): N39.0 - URINARY TRACT INFECTION, SITE NOT SPECIFIED plan continue current mgmt monitor resp status rest as per the team monitor mental status eye pain
[2018-10-19] MEDS ORDERED: ACETAMINOPHEN 325 MG TABLET (FP) PO PRN (14:30)
--- NOTE | 2018-10-19 15:50 | PN ---
Teaching Attending Note Name of Resident: Sridhar Monk ATTENDING PHYSICIAN STATEMENT I saw and evaluated the patient. I reviewed the resident's note and discussed the case with the resident. I agree with the resident's findings and plan as documented. SUBJECTIVE: Patient complaining of right eye pressure. OBJECTIVE: Vital Signs Period Temp Pulse Resp BP Sys/Renee Pulse Ox Last 24 Hr 97.4 F-98.9 F 66-79 18-20 119-157/48-88 98-99 HEENT: Left eye erythematous HEART: S1S2, RRR LUNGS: Clear with decreased BS ABDOMEN: Obese, soft, non-tender, non-distended, normal BS EXTREMITIES: No edema Laboratory Results - last 24 hr 10/18/18 10/18/18 10/19/18 16:16 22:08 06:13 WBC RBC Hgb Hct MCV MCH MCHC RDW Plt Count MPV Absolute Neuts (auto) Neutrophils % Lymphocytes % Monocytes % Eosinophils % Basophils % Nucleated RBC % PT with INR INR Sodium Potassium Chloride Carbon Dioxide Anion Gap BUN Creatinine Est GFR (CKD-EPI)AfAm Est GFR (CKD-EPI)NonAf POC Glucometer 156 230 130 Random Glucose Calcium Phosphorus 10/19/18 10/19/18 10/19/18 06:34 06:34 06:34 WBC 6.3 RBC 2.54 L Hgb 8.1 L Hct 24.7 L MCV 97.5 H MCH 31.8 MCHC 32.7 RDW 15.4 Plt Count 220 MPV 8.9 Absolute Neuts (auto) 3.5 Neutrophils % 56.7 Lymphocytes % 28.9 Monocytes % 12.4 H Eosinophils % 0.7 Basophils % 1.3 Nucleated RBC % 0 PT with INR 20.10 H INR 1.69 H Sodium 142 Potassium 4.2 Chloride 105 Carbon Dioxide 30 Anion Gap 7 L BUN 57.3 H Creatinine 4.1 H Est GFR (CKD-EPI)AfAm 11.27 Est GFR (CKD-EPI)NonAf 9.72 POC Glucometer Random Glucose 121 H Calcium 8.7 Phosphorus 3.1 10/19/18 09:52 WBC RBC Hgb Hct MCV MCH MCHC RDW Plt Count MPV Absolute Neuts (auto) Neutrophils % Lymphocytes % Monocytes % Eosinophils % Basophils % Nucleated RBC % PT with INR INR Sodium Potassium Chloride Carbon Dioxide Anion Gap BUN Creatinine Est GFR (CKD-EPI)AfAm Est GFR (CKD-EPI)NonAf POC Glucometer 141 Random Glucose Calcium Phosphorus Current Medications Generic Name Dose Route Start Last Admin Trade Name Freq PRN Reason Stop Dose Admin Acetaminophen 650 mg 10/19/18 14:30 10/19/18 15:02 Tylenol - PO 650 mg Q4H PRN Administration MODERATE PAIN Albuterol/Ipratropium 1 amp 10/17/18 11:46 Duoneb - NEB Q6H PRN SHORTNESS OF BREATH Amlodipine Besylate 10 mg 10/19/18 09:56 10/19/18 10:21 Norvasc - PO Not Given DAILY ERMA Arformoterol Tartrate 1 amp 10/14/18 20:00 10/19/18 07:20 Brovana (Restricted To Pulmonology/Resp) - NEB 1 amp RBID ERMA Administration Artificial Tears 1 drop 10/14/18 10:43 10/17/18 10:30 Artificial Tears OU 1 drop BID PRN Administration DRY EYES Atorvastatin Calcium 80 mg 10/17/18 22:00 10/18/18 22:05 Lipitor - PO 80 mg HS ERMA Administration Calcium Acetate 667 mg 10/09/18 08:00 10/19/18 13:39 Phoslo - PO Not Given TIDCM ERMA Cholecalciferol 5,000 unit 10/09/18 10:00 10/19/18 09:39 Vitamin D3 - PO 5,000 unit DAILY ERMA Administration Erythromycin 1 applic 10/14/18 10:45 10/19/18 09:42 Erythromycin 0.5% Eye Ointment OU 1 applic DAILY ERMA Administration Hydralazine HCl 100 mg 10/19/18 09:56 10/19/18 15:13 Apresoline - PO Not Given TID ERMA Insulin Aspart 1 vial 10/09/18 07:00 10/19/18 13:00 Novolog Vial Sliding Scale - SQ Not Given ACHS [facility] Protocol Insulin Detemir 10 units 10/12/18 13:44 10/18/18 22:09 Levemir Vial SQ 10 units HS ERMA Administration Labetalol HCl 200 mg 10/19/18 09:56 10/19/18 10:21 Normodyne - PO Not Given BID ERMA Pantoprazole Sodium 40 mg 10/09/18 10:00 10/19/18 09:39 Protonix - PO 40 mg DAILY [facility]MA Administration Warfarin Sodium 5 mg/ Warfarin 7 mg 10/18/18 18:00 10/18/18 17:08 Sodium 2 mg PO 7 mg DAILY@1800 [facility]MA Administration ASSESSMENT AND PLAN: This is a 77 year old woman with a history of HTN, hyperlipidemia, CAD, type 2 DM, atrial flutter, PAF, chronic diastolic heart failure, COPD, obesity, PAD, stage 4-5 CKD, DVT who presented to the ED with lethargy, altered mental status , and anasarca. 1. Acute exacerbation of COPD - Continue Brovana DuoNeb as needed - Oxygen to maintain saturation >90% 2. Left eye pain - Patient has been receiving erythromycin ointment for possible conjunctivitis - Ophthalmology evaluation 3. Obesity hypoventilation syndrome - Continue BIPAP at night 4. Acute metabolic encephalopathy - Appears to be improving 5. Acute on chronic diastolic heart failure - Improved - Continue Torsemide 6. UTI - Completed antibiotics 7. Stage 4-5 CKD - Creatinine improving, BUN increasing - Torsemide dose decreased 8. HTN - Continue Norvasc, Hydralazine, Labetalol, Torsemide 9. Hyperlipidemia - Continue Lipitor 10. Type 2 DM - Continue Levemir, Novolog sliding scale 11. Pulmonary HTN 12. CAD 13. History of atrial flutter, ablation 14. Paroxysmal atrial fibrillation - Remains in sinus rhythm - Continue Labetalol, Coumadin 15. History of DVT - Continue Coumadin 16. Anemia secondary to CKD - s/p Markp
--- NOTE | 2018-10-19 16:09 | PN ---
Progress Note (short form) - Note Progress Note: Renal follow up for CKD Pt seen and examined at the bedside awake complaints of very bad eye pain no sob, cp Vital Signs Temperature 98.4 F 10/19/18 14:37 Pulse Rate 79 10/19/18 14:37 Respiratory Rate 18 10/19/18 14:37 Blood Pressure 157/62 10/19/18 14:37 O2 Sat by Pulse Oximetry (%) 99 10/19/18 10:19 Intake & Output 10/16/18 10/17/18 10/18/18 10/19/18 23:59 23:59 23:59 23:59 Intake Total 652 653 7359 120 Balance 322 957 7853 120 Weight 95.708 kg 91.943 kg 94.971 kg NAD awake and alert RRR Dec BS no LE edema CBC, BMP 10/19/18 06:34 10/19/18 06:34 Current Medications Acetaminophen (Tylenol -) 650 mg PO Q4H PRN PRN Reason: MODERATE PAIN Last Admin: 10/19/18 15:02 Dose: 650 mg Albuterol/Ipratropium (Duoneb -) 1 amp NEB Q6H PRN PRN Reason: SHORTNESS OF BREATH Amlodipine Besylate (Norvasc -) 10 mg PO DAILY [facility] Last Admin: 10/19/18 10:21 Dose: Not Given Arformoterol Tartrate (Brovana (Restricted To Pulmonology/Resp) -) 1 amp NEB RBID [facility] Last Admin: 10/19/18 07:20 Dose: 1 amp Artificial Tears (Artificial Tears) 1 drop OU BID PRN PRN Reason: DRY EYES Last Admin: 10/17/18 10:30 Dose: 1 drop Atorvastatin Calcium (Lipitor -) 80 mg PO HS [facility] Last Admin: 10/18/18 22:05 Dose: 80 mg Calcium Acetate (Phoslo -) 667 mg PO TIDCM [facility] Last Admin: 10/19/18 13:39 Dose: Not Given Cholecalciferol (Vitamin D3 -) 5,000 unit PO DAILY [facility] Last Admin: 10/19/18 09:39 Dose: 5,000 unit Erythromycin (Erythromycin 0.5% Eye Ointment) 1 applic OU DAILY [facility] Last Admin: 10/19/18 09:42 Dose: 1 applic Hydralazine HCl (Apresoline -) 100 mg PO TID [facility] Last Admin: 10/19/18 15:13 Dose: Not Given Insulin Aspart (Novolog Vial Sliding Scale -) 1 vial SQ ACHS [facility]; Protocol Last Admin: 10/19/18 13:00 Dose: Not Given Insulin Detemir (Levemir Vial) 10 units SQ HS [facility] Last Admin: 10/18/18 22:09 Dose: 10 units Labetalol HCl (Normodyne -) 200 mg PO BID [facility] Last Admin: 10/19/18 10:21 Dose: Not Given Pantoprazole Sodium (Protonix -) 40 mg PO DAILY [facility] Last Admin: 10/19/18 09:39 Dose: 40 mg Warfarin Sodium 5 mg/ Warfarin (Sodium 2 mg) 7 mg PO DAILY@1800 [facility] Last Admin: 10/18/18 17:08 Dose: 7 mg 77 year old woman with history of 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 #CKD stage 4/5, renal function stable #CHF with pulmonary congestion #COPD/Chronic dyspnea #LE edema #Hypertension #Acute on Chronic anemia Renal function stable continue PO torsemide at 20mg daily for edema management no emergent indication for EVISCERATOR despite eGFR < 15 continue PO torsemide, edema now resolved s/p Aransep continue Nebs per pulmonary, BIPAP as needed overall prognosis is guarded Neurology and pulmonary follow up cannot get Reyes exposure as her eGFR < 15 Thank you Tylor Funez DO
--- NOTE | 2018-10-19 16:19 | PN ---
Progress Note (short form) - Note Progress Note: PULMONARY c/o debilitating eye pain. Vital Signs Period Temp Pulse Resp BP Sys/Renee Pulse Ox Last 24 Hr 97.4 F-98.9 F 66-79 18-20 119-157/48-88 98-99 Gen: mildly tachypneic at rest Heart: RRR Lung: distant breath sounds Abd: soft, nontender Ext: no edema CBC, BMP 10/19/18 06:34 10/19/18 06:34 Active Medications Acetaminophen (Tylenol -) 650 mg PO Q4H PRN PRN Reason: MODERATE PAIN Last Admin: 10/19/18 15:02 Dose: 650 mg Albuterol/Ipratropium (Duoneb -) 1 amp NEB Q6H PRN PRN Reason: SHORTNESS OF BREATH Amlodipine Besylate (Norvasc -) 10 mg PO DAILY [facility] Last Admin: 10/19/18 10:21 Dose: Not Given Arformoterol Tartrate (Brovana (Restricted To Pulmonology/Resp) -) 1 amp NEB RBID [facility] Last Admin: 10/19/18 07:20 Dose: 1 amp Artificial Tears (Artificial Tears) 1 drop OU BID PRN PRN Reason: DRY EYES Last Admin: 10/17/18 10:30 Dose: 1 drop Atorvastatin Calcium (Lipitor -) 80 mg PO [facility] Last Admin: 10/18/18 22:05 Dose: 80 mg Calcium Acetate (Phoslo -) 667 mg PO TIDCM [facility] Last Admin: 10/19/18 13:39 Dose: Not Given Cholecalciferol (Vitamin D3 -) 5,000 unit PO DAILY [facility] Last Admin: 10/19/18 09:39 Dose: 5,000 unit Erythromycin (Erythromycin 0.5% Eye Ointment) 1 applic OU DAILY [facility] Last Admin: 10/19/18 09:42 Dose: 1 applic Hydralazine HCl (Apresoline -) 100 mg PO TID [facility] Last Admin: 10/19/18 15:13 Dose: Not Given Insulin Aspart (Novolog Vial Sliding Scale -) 1 vial SQ [facility]; Protocol Last Admin: 10/19/18 13:00 Dose: Not Given Insulin Detemir (Levemir Vial) 10 units SQ [facility] Last Admin: 10/18/18 22:09 Dose: 10 units Labetalol HCl (Normodyne -) 200 mg PO BID [facility] Last Admin: 10/19/18 10:21 Dose: Not Given Pantoprazole Sodium (Protonix -) 40 mg PO DAILY [facility] Last Admin: 10/19/18 09:39 Dose: 40 mg Warfarin Sodium 5 mg/ Warfarin (Sodium 2 mg) 7 mg PO DAILY@1800 [facility] Last Admin: 10/18/18 17:08 Dose: 7 mg A/P Acute COPD Exacerbation LV Diastolic Dysfunction Pulmonary HTN CAD Atrial Fibrillation Acute on Chronic Renal Failure h/o DVT DM Anemia - optho eval - inhaled bronchodilators - O2 to keep SpO2 >90% - BiPAP at night - rate control - continue anticoagulation - continue torsemide per renal - monitor urine output, creatinine - continue discussions regarding goals of care
--- NOTE | 2018-10-19 16:24 | PN ---
Physical Exam: SUBJECTIVE: Patient seen and examined at the bedside in Am. Less lethargic today OBJECTIVE: Vital Signs Period Temp Pulse Resp BP Sys/Renee Pulse Ox Last 24 Hr 97.4 F-98.9 F 66-79 18-20 119-157/48-88 98-99 GENERAL: The patient is awake, alert, and fully oriented, in no acute distress. HEAD: Normal with no signs of trauma. EYES: Left eye pressure, conjunctival injection, PERRLA. NECK: supple. LUNGS: Breath sounds equal, clear to auscultation bilaterally, no wheezes, no crackles, no accessory muscle use. HEART: Regular rate and rhythm, S1, S2 without murmur, rub or gallop. ABDOMEN: Soft, nontender, nondistended, no guarding, no rebound. EXTREMITIES: warm, well-perfused, no edema. NEUROLOGICAL: Cranial nerves II through XII grossly intact. Normal speech, gait not observed. PSYCH: lethargy improved SKIN: Warm, dry, no rashes or lesions noted Laboratory Results - last 24 hr 10/18/18 10/18/18 10/19/18 16:16 22:08 06:13 WBC RBC Hgb Hct MCV MCH MCHC RDW Plt Count MPV Absolute Neuts (auto) Neutrophils % Lymphocytes % Monocytes % Eosinophils % Basophils % Nucleated RBC % PT with INR INR Sodium Potassium Chloride Carbon Dioxide Anion Gap BUN Creatinine Est GFR (CKD-EPI)AfAm Est GFR (CKD-EPI)NonAf POC Glucometer 156 230 130 Random Glucose Calcium Phosphorus 10/19/18 10/19/18 10/19/18 06:34 06:34 06:34 WBC 6.3 RBC 2.54 L Hgb 8.1 L Hct 24.7 L MCV 97.5 H MCH 31.8 MCHC 32.7 RDW 15.4 Plt Count 220 MPV 8.9 Absolute Neuts (auto) 3.5 Neutrophils % 56.7 Lymphocytes % 28.9 Monocytes % 12.4 H Eosinophils % 0.7 Basophils % 1.3 Nucleated RBC % 0 PT with INR 20.10 H INR 1.69 H Sodium 142 Potassium 4.2 Chloride 105 Carbon Dioxide 30 Anion Gap 7 L BUN 57.3 H Creatinine 4.1 H Est GFR (CKD-EPI)AfAm 11.27 Est GFR (CKD-EPI)NonAf 9.72 POC Glucometer Random Glucose 121 H Calcium 8.7 Phosphorus 3.1 10/19/18 09:52 WBC RBC Hgb Hct MCV MCH MCHC RDW Plt Count MPV Absolute Neuts (auto) Neutrophils % Lymphocytes % Monocytes % Eosinophils % Basophils % Nucleated RBC % PT with INR INR Sodium Potassium Chloride Carbon Dioxide Anion Gap BUN Creatinine Est GFR (CKD-EPI)AfAm Est GFR (CKD-EPI)NonAf POC Glucometer 141 Random Glucose Calcium Phosphorus Active Medications Generic Name Dose Route Start Last Admin Trade Name Freq PRN Reason Stop Dose Admin Acetaminophen 650 mg 10/19/18 14:30 10/19/18 15:02 Tylenol - PO 650 mg Q4H PRN Administration MODERATE PAIN Albuterol/Ipratropium 1 amp 10/17/18 11:46 Duoneb - NEB Q6H PRN SHORTNESS OF BREATH Amlodipine Besylate 10 mg 10/19/18 09:56 10/19/18 10:21 Norvasc - PO Not Given DAILY ERMA Arformoterol Tartrate 1 amp 10/14/18 20:00 10/19/18 07:20 Brovana (Restricted To Pulmonology/Resp) - NEB 1 amp RBID ERMA Administration Artificial Tears 1 drop 10/14/18 10:43 10/17/18 10:30 Artificial Tears OU 1 drop BID PRN Administration DRY EYES Atorvastatin Calcium 80 mg 10/17/18 22:00 10/18/18 22:05 Lipitor - PO 80 mg HS ERMA Administration Calcium Acetate 667 mg 10/09/18 08:00 10/19/18 13:39 Phoslo - PO Not Given TIDCM ERMA Cholecalciferol 5,000 unit 10/09/18 10:00 10/19/18 09:39 Vitamin D3 - PO 5,000 unit DAILY [facility] Administration Erythromycin 1 applic 10/14/18 10:45 10/19/18 09:42 Erythromycin 0.5% Eye Ointment OU 1 applic DAILY [facility] Administration Hydralazine HCl 100 mg 10/19/18 09:56 10/19/18 15:13 Apresoline - PO Not Given TID ERMA Insulin Aspart 1 vial 10/09/18 07:00 10/19/18 13:00 Novolog Vial Sliding Scale - SQ Not Given ACHS [facility] Protocol Insulin Detemir 10 units 10/12/18 13:44 10/18/18 22:09 Levemir Vial SQ 10 units HS ERMA Administration Labetalol HCl 200 mg 10/19/18 09:56 10/19/18 10:21 Normodyne - PO Not Given BID [facility] Pantoprazole Sodium 40 mg 10/09/18 10:00 10/19/18 09:39 Protonix - PO 40 mg DAILY ERMA Administration Warfarin Sodium 5 mg/ Warfarin 7 mg 10/18/18 18:00 10/18/18 17:08 Sodium 2 mg PO 7 mg DAILY@1800 ERMA Administration ASSESSMENT/PLAN: Images: MRI of brain: Lt distal ICA significant stenosis and should correlate with MRA, as well as chronic microvascular ischemic changes and chronic lacunar infarcts. MRI neck: showing C3-C4, C4-C5 disc herniations without impingement. 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 Pt is a 77 yo F with a pMhx of obesity, HTN, DM, COPD on home nightly CPAP, CKD stage IV-5 (b/l SCr: 3.4-3.6) presented with reported mentation changes and lethargy in the presence of anasarca. #COPD vs Obesity hypoventilation syndrome: - c/w brovana daily & duonebs as needed, resume nightly BIPAP or PRN BIPAP #Altered mental status - today it improved initially - MRA result: left interal carotid completely blocked, rt ica stenotic, Neck MRA - - Consulted Dr. loera awaiting recs #Acute noninfectious conjunctivitis - severe pain in left eye, pressure like, accompanied by left side face pain, - artifical tears - erythromycin ointment - optho consulted (Dr. Cunningham) recommends prednisolone acetate eye drops 2gtt in left eye QID. Will need slit lamp exam immediately after d/c. #UTI - off abx continuing to monitor per ID. #AFib/Flutter hx: - will continue the current meds labetalol and warfarin #CKD stage V - continuing torsemide 20 PO with holding parameters, pt no longer has edema peripherally, monitoring the renal ftn. 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 #DM - levemir 10 units @ bedtime and correction dose insulin to optimize glucose control. DVT PPx: pt on systemic AC #FEN: - Continue to monitor lytes - continue no fluids. - Low sodium, low phos, Low potassium & moderate carb diet. Visit type - Emergency Visit Emergency Visit: Yes ED Registration Date: 10/08/18 Care time: The patient presented to the Emergency Department on the above date and was hospitalized for further evaluation of their emergent condition. - New Patient This patient is new to me today: No - Critical Care Critical Care patient: No - Discharge Referral Referred to [facility] No ATTENDING PHYSICIAN STATEMENT I saw and evaluated the patient. I reviewed the resident's note and discussed the case with the resident. I agree with the resident's findings and plan as documented. SUBJECTIVE: OBJECTIVE: ASSESSMENT AND PLAN:
[2018-10-19] MEDS ORDERED: WARFARIN NA 2 MG TABLET (UD) ONE (17:40)
[2018-10-19] MEDS ORDERED: WARFARIN NA 5 MG TABLET (UD) ONE (17:40)
[2018-10-19] MEDS: WARFARIN NA 5 MG, WARFARIN NA 2 MG PO SCH (17:42)
[2018-10-19] MEDS: prednisoLONE ACETATE 1% OPHTH SUSP 5 ML BOTTLE OS SCH ×2 (17:44→22:06)
[2018-10-19] MEDS: INSULIN (LEVEMIR) 100 UNITS/ML UNITS SQ SCH (22:05)
[2018-10-19] MEDS: ATORVASTATIN CA 80 MG TABLET (FP) PO SCH (22:06)
[2018-10-20] MEDS: INSULIN SLIDING SCALE (NOVOLOG) 1 VIAL SQ SCH ×4 (06:25→22:06)
[2018-10-20] MEDS: hydrALAZINE HCL 50 MG TABLET (FP) PO SCH ×3 (06:27→22:02)
[2018-10-20] MEDS: ARFORMOTEROL TARTRATE 15 MCG/2 ML VIAL NEB SCH ×2 (08:20→20:54)
[2018-10-20 08:32] LABS: BLOOD UREA NITROGEN 56.7 mg/dL (7-18); CALCIUM 8.7 mg/dL (8.5-10.1); CREATININE 3.9 mg/dL (0.55-1.3); MAGNESIUM 1.8 mg/dL (1.8-2.4); PHOSPHOROUS 3.5 mg/dL (2.5-4.9)
[2018-10-20 08:35] LABS: PROTHROMBIN TIME (PATIENT) 19.1 SEC (9.7-13.0)
[2018-10-20] MEDS: CHOLECALCIFEROL (VIT D3) 1,000 UNIT (25 MCG) TABLET PO SCH (09:17)
[2018-10-20] MEDS: amLODIPine BESYLATE 10 MG TABLET (FP) PO SCH (09:23)
[2018-10-20] MEDS: CALCIUM ACETATE 667 MG CAPSULE (FP) PO SCH ×3 (09:23→16:32)
[2018-10-20] MEDS: LABETALOL HCL 200 MG TABLET (FP) PO SCH ×2 (09:24→22:02)
[2018-10-20] MEDS: TORSEMIDE 20 MG TABLET (FP) PO SCH (09:24)
[2018-10-20] MEDS: prednisoLONE ACETATE 1% OPHTH SUSP 5 ML BOTTLE OS SCH ×4 (09:27→22:12)
[2018-10-20] MEDS: PANTOPRAZOLE 40 MG TABLET (FP) PO SCH (09:28)
--- NOTE | 2018-10-20 09:40 | PN ---
Progress Note, Physician History of Present Illness: no new issues says she is doing well - Current Medication List Current Medications: Active Medications Acetaminophen (Tylenol -) 650 mg PO Q4H PRN PRN Reason: MODERATE PAIN Last Admin: 10/19/18 15:02 Dose: 650 mg Albuterol/Ipratropium (Duoneb -) 1 amp NEB Q6H PRN PRN Reason: SHORTNESS OF BREATH Amlodipine Besylate (Norvasc -) 10 mg PO DAILY [facility] Last Admin: 10/20/18 09:23 Dose: 10 mg Arformoterol Tartrate (Brovana (Restricted To Pulmonology/Resp) -) 1 amp NEB RBID [facility] Last Admin: 10/19/18 20:24 Dose: 1 amp Artificial Tears (Artificial Tears) 1 drop OU BID PRN PRN Reason: DRY EYES Last Admin: 10/17/18 10:30 Dose: 1 drop Atorvastatin Calcium (Lipitor -) 80 mg PO HS [facility] Last Admin: 10/19/18 22:06 Dose: 80 mg Calcium Acetate (Phoslo -) 667 mg PO TIDCM [facility] Last Admin: 10/20/18 09:23 Dose: 667 mg Cholecalciferol (Vitamin D3 -) 5,000 unit PO DAILY [facility] Last Admin: 10/20/18 09:17 Dose: 5,000 unit Erythromycin (Erythromycin 0.5% Eye Ointment) 1 applic OU DAILY [facility] Last Admin: 10/19/18 09:42 Dose: 1 applic Hydralazine HCl (Apresoline -) 100 mg PO TID [facility] Last Admin: 10/20/18 06:27 Dose: Not Given Insulin Aspart (Novolog Vial Sliding Scale -) 1 vial SQ [facility]; Protocol Last Admin: 10/20/18 06:25 Dose: Not Given Insulin Detemir (Levemir Vial) 10 units SQ [facility] Last Admin: 10/19/18 22:05 Dose: 10 units Labetalol HCl (Normodyne -) 200 mg PO BID [facility] Last Admin: 10/20/18 09:24 Dose: 200 mg Pantoprazole Sodium (Protonix -) 40 mg PO DAILY [facility] Last Admin: 10/20/18 09:28 Dose: 40 mg Prednisolone Acetate (Pred Forte 1% -) 2 drop OS QID [facility] Last Admin: 10/20/18 09:27 Dose: 2 drop Torsemide (Demadex -) 20 mg PO DAILY [facility] Last Admin: 10/20/18 09:24 Dose: 20 mg Warfarin Sodium 5 mg/ Warfarin (Sodium 2 mg) 7 mg PO DAILY@1800 [facility] Last Admin: 10/19/18 17:42 Dose: 7 mg - Objective Vital Signs: Vital Signs Temperature 97.5 F L 10/20/18 06:13 Pulse Rate 66 10/20/18 06:13 Respiratory Rate 20 10/20/18 06:13 Blood Pressure 140/56 L 10/20/18 06:13 O2 Sat by Pulse Oximetry (%) 96 10/20/18 05:00 Constitutional: Yes: No Distress, Calm Cardiovascular: Yes: S1, S2 Respiratory: Yes: Regular, CTA Bilaterally, On Nasal O2 Gastrointestinal: Yes: Normal Bowel Sounds, Soft Musculoskeletal: Yes: WNL Extremities: Yes: WNL, Other Wound/Incision: Yes: Other (multiple wounds) Neurological: Yes: Alert Psychiatric: Yes: Alert Labs: CBC, BMP 10/19/18 06:34 10/20/18 06:52 INR, PTT INR 1.69 (0.83-1.09) H 10/19/18 06:34 Assessment/Plan Problem List - Problems (1) Lethargy Code(s): R53.83 - OTHER FATIGUE (2) Acute on chronic renal insufficiency Code(s): N28.9 - DISORDER OF KIDNEY AND URETER, UNSPECIFIED; N18.9 - CHRONIC KIDNEY DISEASE, UNSPECIFIED (3) CHF (congestive heart failure) Code(s): I50.9 - HEART FAILURE, UNSPECIFIED Qualifiers: Heart failure type: diastolic (4) Anemia Code(s): D64.9 - ANEMIA, UNSPECIFIED Qualifiers: Chronic kidney disease stage: stage 4 (severe) (5) Afib Code(s): I48.91 - UNSPECIFIED ATRIAL FIBRILLATION Qualifiers: Atrial fibrillation type: paroxysmal Qualified Code(s): I48.0 - Paroxysmal atrial fibrillation (6) CAD (coronary artery disease) Code(s): I25.10 - ATHSCL HEART DISEASE OF [place] CORONARY ARTERY W/O ANG PCTRS (7) Hypertension Code(s): I10 - ESSENTIAL (PRIMARY) HYPERTENSION Qualifiers: Hypertension type: essential hypertension Qualified Code(s): I10 - Essential (primary) hypertension (8) Type 2 diabetes mellitus Code(s): E11.9 - TYPE 2 DIABETES MELLITUS WITHOUT COMPLICATIONS Qualifiers: Diabetes mellitus complication status: with circulatory complication (9) Obstructive sleep apnea Code(s): G47.33 - OBSTRUCTIVE SLEEP APNEA (ADULT) (PEDIATRIC) (10) UTI (urinary tract infection) Code(s): N39.0 - URINARY TRACT INFECTION, SITE NOT SPECIFIED plan continue current mgmt rest as per the team
[2018-10-20 10:19] LABS: INR 1.61 (0.83-1.09)
[2018-10-20 12:35] VITALS: BMI 32.7
--- NOTE | 2018-10-20 13:49 | PN ---
Progress Note, Physician History of Present Illness: pulmonary awake,alert,feeling better,dyspnea improving,mental status improved - Current Medication List Current Medications: Active Medications Acetaminophen (Tylenol -) 650 mg PO Q4H PRN PRN Reason: MODERATE PAIN Last Admin: 10/19/18 15:02 Dose: 650 mg Albuterol/Ipratropium (Duoneb -) 1 amp NEB Q6H PRN PRN Reason: SHORTNESS OF BREATH Amlodipine Besylate (Norvasc -) 10 mg PO DAILY [facility] Last Admin: 10/20/18 09:23 Dose: 10 mg Arformoterol Tartrate (Brovana (Restricted To Pulmonology/Resp) -) 1 amp NEB RBID [facility] Last Admin: 10/20/18 08:20 Dose: 1 amp Artificial Tears (Artificial Tears) 1 drop OU BID PRN PRN Reason: DRY EYES Last Admin: 10/17/18 10:30 Dose: 1 drop Atorvastatin Calcium (Lipitor -) 80 mg PO HS [facility] Last Admin: 10/19/18 22:06 Dose: 80 mg Calcium Acetate (Phoslo -) 667 mg PO TIDCM [facility] Last Admin: 10/20/18 09:23 Dose: 667 mg Cholecalciferol (Vitamin D3 -) 5,000 unit PO DAILY [facility] Last Admin: 10/20/18 09:17 Dose: 5,000 unit Erythromycin (Erythromycin 0.5% Eye Ointment) 1 applic OU DAILY [facility] Last Admin: 10/19/18 09:42 Dose: 1 applic Hydralazine HCl (Apresoline -) 100 mg PO TID [facility] Last Admin: 10/20/18 06:27 Dose: Not Given Insulin Aspart (Novolog Vial Sliding Scale -) 1 vial SQ [facility]; Protocol Last Admin: 10/20/18 12:50 Dose: 2 units Insulin Detemir (Levemir Vial) 10 units SQ [facility] Last Admin: 10/19/18 22:05 Dose: 10 units Labetalol HCl (Normodyne -) 200 mg PO BID [facility] Last Admin: 10/20/18 09:24 Dose: 200 mg Pantoprazole Sodium (Protonix -) 40 mg PO DAILY [facility] Last Admin: 10/20/18 09:28 Dose: 40 mg Prednisolone Acetate (Pred Forte 1% -) 2 drop OS QID [facility] Last Admin: 10/20/18 09:27 Dose: 2 drop Torsemide (Demadex -) 20 mg PO DAILY [facility] Last Admin: 10/20/18 09:24 Dose: 20 mg Warfarin Sodium 5 mg/ Warfarin (Sodium 2 mg) 7 mg PO DAILY@1800 [facility] Last Admin: 10/19/18 17:42 Dose: 7 mg - Objective Vital Signs: Vital Signs Temperature 98.1 F 10/20/18 10:00 Pulse Rate 74 10/20/18 10:00 Respiratory Rate 18 10/20/18 10:00 Blood Pressure 148/63 10/20/18 10:00 O2 Sat by Pulse Oximetry (%) 96 10/20/18 09:00 Constitutional: Yes: Well Nourished, Calm Eyes: Yes: WNL HENT: Yes: WNL Neck: Yes: WNL Cardiovascular: Yes: Regular Rate and Rhythm, S1, S2 Respiratory: Yes: Diminished Gastrointestinal: Yes: Normal Bowel Sounds, Soft Extremities: Yes: WNL Edema: No Labs: CBC, BMP 10/20/18 06:52 INR, PTT INR 1.61 (0.83-1.09) H* 10/20/18 06:52 Problem List - Problems (1) Lethargy Code(s): R53.83 - OTHER FATIGUE (2) CHF (congestive heart failure) Code(s): I50.9 - HEART FAILURE, UNSPECIFIED Qualifiers: Heart failure type: diastolic (3) Anemia Code(s): D64.9 - ANEMIA, UNSPECIFIED Qualifiers: Chronic kidney disease stage: stage 4 (severe) (4) Afib Code(s): I48.91 - UNSPECIFIED ATRIAL FIBRILLATION Qualifiers: Atrial fibrillation type: paroxysmal Qualified Code(s): I48.0 - Paroxysmal atrial fibrillation (5) CAD (coronary artery disease) Code(s): I25.10 - ATHSCL HEART DISEASE OF [place] CORONARY ARTERY W/O ANG PCTRS (6) CKD (chronic kidney disease) Code(s): N18.9 - CHRONIC KIDNEY DISEASE, UNSPECIFIED (7) COPD (chronic obstructive pulmonary disease) Code(s): J44.9 - CHRONIC OBSTRUCTIVE PULMONARY DISEASE, UNSPECIFIED Qualifiers: COPD type: emphysema Emphysema type: unspecified Qualified Code(s): J43.9 - Emphysema, unspecified (8) Hyperlipidemia Code(s): E78.5 - HYPERLIPIDEMIA, UNSPECIFIED Qualifiers: Hyperlipidemia type: pure hypercholesterolemia Qualified Code(s): E78.00 - Pure hypercholesterolemia, unspecified; E78.0 - Pure hypercholesterolemia (9) Hypertension Code(s): I10 - ESSENTIAL (PRIMARY) HYPERTENSION Qualifiers: Hypertension type: essential hypertension Qualified Code(s): I10 - Essential (primary) hypertension (10) IDDM (insulin dependent diabetes mellitus) Code(s): E11.9 - TYPE 2 DIABETES MELLITUS WITHOUT COMPLICATIONS; Z79.4 - CUSTODIAL (CURRENT) USE OF INSULIN (11) Pulmonary hypertension Code(s): I27.2 - OTHER SECONDARY PULMONARY HYPERTENSION * DO NOT USE * (12) Shortness of breath Code(s): R06.02 - SHORTNESS OF BREATH Assessment/Plan IMP DYSPNEA IMPROVING COPD ON HOME O2, NOCTURNAL BIPAP CHF PULMONARY HTN ALTERED MENTAL STATUS IMPROVED AFIB S/P ABLATION ON AC H/O DVT DM ACUTE ON CKD worsening ANEMIA RECENT PNEUMONIA PLAN INHALED BRONCHODILATORS O2 BIPAP AT NIGHT AND PRN DIURETICS MONITOR LYTES,RENAL FUNCTION MONITOR H+H NORMAL TRANSFUSION THRESHOLD DR GOULD Problem List - Problems (1) Lethargy Code(s): R53.83 - OTHER FATIGUE (2) CHF (congestive heart failure) Code(s): I50.9 - HEART FAILURE, UNSPECIFIED Qualifiers: Heart failure type: diastolic (3) Anemia Code(s): D64.9 - ANEMIA, UNSPECIFIED Qualifiers: Chronic kidney disease stage: stage 4 (severe) (4) Afib Code(s): I48.91 - UNSPECIFIED ATRIAL FIBRILLATION Qualifiers: Atrial fibrillation type: paroxysmal Qualified Code(s): I48.0 - Paroxysmal atrial fibrillation (5) CAD (coronary artery disease) Code(s): I25.10 - ATHSCL HEART DISEASE OF [place] CORONARY ARTERY W/O ANG PCTRS (6) CKD (chronic kidney disease) Code(s): N18.9 - CHRONIC KIDNEY DISEASE, UNSPECIFIED (7) COPD (chronic obstructive pulmonary disease) Code(s): J44.9 - CHRONIC OBSTRUCTIVE PULMONARY DISEASE, UNSPECIFIED Qualifiers: COPD type: emphysema Emphysema type: unspecified Qualified Code(s): J43.9 - Emphysema, unspecified (8) Hyperlipidemia Code(s): E78.5 - HYPERLIPIDEMIA, UNSPECIFIED Qualifiers: Hyperlipidemia type: pure hypercholesterolemia Qualified Code(s): E78.00 - Pure hypercholesterolemia, unspecified; E78.0 - Pure hypercholesterolemia (9) Hypertension Code(s): I10 - ESSENTIAL (PRIMARY) HYPERTENSION Qualifiers: Hypertension type: essential hypertension Qualified Code(s): I10 - Essential (primary) hypertension (10) IDDM (insulin dependent diabetes mellitus) Code(s): E11.9 - TYPE 2 DIABETES MELLITUS WITHOUT COMPLICATIONS; Z79.4 - CUSTODIAL (CURRENT) USE OF INSULIN (11) Pulmonary hypertension Code(s): I27.2 - OTHER SECONDARY PULMONARY HYPERTENSION * DO NOT USE * (12) Shortness of breath Code(s): R06.02 - SHORTNESS OF BREATH
[2018-10-20] MEDS: ERYTHROMYCIN 0.5% OPHTHALMIC OINTMENT 3.5 GM TUBE OU SCH (14:14)
--- NOTE | 2018-10-20 14:17 | DS ---
Physical Exam: SUBJECTIVE: Patient seen and examined OBJECTIVE: Vital Signs Period Temp Pulse Resp BP Sys/Renee Pulse Ox Last 24 Hr 97.5 F-98.6 F 63-79 18-20 131-157/44-63 96-98 PHYSICAL EXAM GENERAL: The patient is awake, alert, and fully oriented, in no acute distress. HEAD: Normal with no signs of trauma. EYES: PERRL, extraocular movements intact, sclera anicteric, conjunctiva clear. ENT: Ears normal, nares patent, oropharynx clear without exudates, moist mucous membranes. NECK: Trachea midline, full range of motion, supple. LUNGS: Breath sounds equal, clear to auscultation bilaterally, no wheezes, no crackles, no accessory muscle use. HEART: Regular rate and rhythm, S1, S2 without murmur, rub or gallop. ABDOMEN: Soft, nontender, nondistended, normoactive bowel sounds, no guarding, no rebound, no hepatosplenomegaly, no masses. EXTREMITIES: 2+ pulses, warm, well-perfused, no edema. NEUROLOGICAL: Cranial nerves II through XII grossly intact. Normal speech, gait not observed. PSYCH: Normal mood, normal affect. SKIN: Warm, dry, normal turgor, no rashes or lesions noted. LABS Laboratory Results - last 24 hr 10/19/18 10/19/18 10/20/18 17:48 22:03 06:21 PT with INR INR Sodium Potassium Chloride Carbon Dioxide Anion Gap BUN Creatinine Est GFR (CKD-EPI)AfAm Est GFR (CKD-EPI)NonAf POC Glucometer 128 265 95 Random Glucose Calcium Phosphorus Magnesium 10/20/18 10/20/18 10/20/18 06:52 06:52 12:48 PT with INR 19.10 H INR 1.61 H* Sodium 144 Potassium 4.0 Chloride 105 Carbon Dioxide 30 Anion Gap 9 BUN 56.7 H Creatinine 3.9 H Est GFR (CKD-EPI)AfAm 11.97 Est GFR (CKD-EPI)NonAf 10.33 POC Glucometer 184 Random Glucose 88 Calcium 8.7 Phosphorus 3.5 Magnesium 1.8 HOSPITAL COURSE: Date of Admission:10/08/18 Date of Discharge: 10/20/18 Discharge Summary Reason For Visit: CONGESTIVE HEART FAILURE Current Active Problems CHF (congestive heart failure) (Chronic) Condition: Stable - Instructions Diet, Activity, Other Instructions: You were admitted for confusion and swelling throughout your body. You were placed on medications to lose the excess water in your body and since then you have greatly improved and are now stable. You were monitored on a heart monitor (telemetry) for a while to assess for any heart rhythm abnormalities and you were not found to have any. You had some increasing tiredness (lethargy) and confusion (altered mental status), in which we evaluated your neck arteries( carotid), your brain (MRI,CT) and brain vessels (MRA) and had a neurologist evaluate you. 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 Furthermore, you had severe eye pain and pressure in your left eye with blurred vision and we had an eye doctor come evaluate you and they placed you on an eye drop that has improved your eye pain. You will need to follow up with Dr. Patel immediately after you are discharged to evaluate your eye. You will need to follow up with your neurologist (Dr. Mccormack) in 1 week. Your kidney function has not been good since even before you came but it is now stable and we would like you to follow up with your kidney doctor in 1 week. You will need to follow up with your lung doctor (Dr. Fletcher) in 1 week to assess your breathing. You should be evaluated by physical therapy to improve your stength and ability to walk. Medications to continue at home: Torsemide 60 mg by mouth once daily Prednisolone acetate 1% 2 eye drops 4 times a day until you follow up with your eye doctor where they can make their recommendation. Please continue all your other medications as prescribed. You should not give the morning dose of labetalol if the top Blood pressure number is <130 (systolic ) or if the bottom blood pressure number (diastolic) goes below 60. You should return to the emergency room if you have any worsening of your current symptoms or: chest pain, shortness of breath, fevers, chills. Referrals: Kodi Fletcher MD [Staff Physician] - 1 Week Gustavo Mccormack MD [Staff Physician] - 1 Week Mello De La O MD [Staff Physician] - 1 Week Tylor To MD [Staff Physician] - 1 Week Disposition: NURSING HOME FACILITY - Home Medications Comprehensive Discharge Medication List: Ambulatory Orders Albuterol 0.083% Nebulizer Norma [Ventolin 0.083% Nebulizer Soln -] 1 amp NEB Q4H PRN #0 amp 09/15/18 Albuterol 2.5/Ipratropium 0.5 [Duoneb -] 1 amp NEB QID PRN 30 Days amp Budesonide/Formeterol Fumarate [SYMBICORT 160/4.5mcg -] 2 puff IH BID inhaler 09/15/18 Folic Acid - 1 mg PO DAILY tablet 09/15/18 Insulin (Levemir) [Levemir Vial] 10 units SQ DAILY@0800 #3 ml 09/15/18 Insulin (Levemir) [Levemir Vial] 24 units SQ HS #6 ml 09/15/18 Labetalol HCl [Normodyne -] 200 mg PO BID #60 tablet 09/15/18 Sodium Bicarbonate - 650 mg PO BID tablet 09/15/18 Warfarin Sodium [Coumadin] 7.5 mg PO HS #30 tablet 09/15/18 Hydralazine HCl 100 mg PO TID #90 tablet 09/16/18 Amlodipine Besylate [Norvasc -] 10 mg PO DAILY 10/08/18 Calcium Acetate 667 mg PO TID 10/08/18 Cholecalciferol (Vitamin D3) [Vitamin D3] 5,000 unit PO DAILY 10/08/18 Insulin Sliding Scale [Novolog Vial Sliding Scale -] 1 unit SQ ASDIR PRN Pantoprazole Sodium 40 mg PO DAILY 10/08/18 Diltiazem HCl [Diltiazem 24Hr ER (Cd)] 120 mg PO DAILY 10/09/18 Arformoterol Tartrate [Brovana -] 1 amp NEB RBID #0 amp 10/20/18 Atorvastatin Ca [Lipitor] 80 mg PO HS tablet 10/20/18 Erythromycin 0.5% Eye Ointment [Erythromycin 0.5% Eye Ointment -] 1 applic OU DAILY tube 10/20/18 Polyvinyl Alcohol [Artificial Tears] 1 drop OU BID PRN #0 drops 10/20/18 Prednisolone 1% Ophthalmic [Pred Forte 1% -] 2 drop OS QID drops 10/20/18 Torsemide [Demadex -] 20 mg PO DAILY tablet 10/20/18 - Discharge Referral Referred to [facility] No ATTENDING PHYSICIAN STATEMENT I saw and evaluated the patient. I reviewed the resident's note and discussed the case with the resident. I agree with the resident's findings and plan as documented. SUBJECTIVE: OBJECTIVE: ASSESSMENT AND PLAN:
--- NOTE | 2018-10-20 15:25 | DS ---
Physical Exam: SUBJECTIVE: Patient seen and examined OBJECTIVE: Vital Signs Period Temp Pulse Resp BP Sys/Renee Pulse Ox Last 24 Hr 97.5 F-98.6 F 63-74 18-20 125-148/44-63 96-98 PHYSICAL EXAM GENERAL: The patient is awake, alert, and fully oriented, in no acute distress. HEAD: Normal with no signs of trauma. EYES: PERRL, extraocular movements intact, sclera anicteric, conjunctiva clear. ENT: Ears normal, nares patent, oropharynx clear without exudates, moist mucous membranes. NECK: Trachea midline, full range of motion, supple. LUNGS: Breath sounds equal, clear to auscultation bilaterally, no wheezes, no crackles, no accessory muscle use. HEART: Regular rate and rhythm, S1, S2 without murmur, rub or gallop. ABDOMEN: Soft, nontender, nondistended, normoactive bowel sounds, no guarding, no rebound, no hepatosplenomegaly, no masses. EXTREMITIES: 2+ pulses, warm, well-perfused, no edema. NEUROLOGICAL: Cranial nerves II through XII grossly intact. Normal speech, gait not observed. PSYCH: Normal mood, normal affect. SKIN: Warm, dry, normal turgor, no rashes or lesions noted. LABS Laboratory Results - last 24 hr 10/19/18 10/19/18 10/20/18 17:48 22:03 06:21 PT with INR INR Sodium Potassium Chloride Carbon Dioxide Anion Gap BUN Creatinine Est GFR (CKD-EPI)AfAm Est GFR (CKD-EPI)NonAf POC Glucometer 128 265 95 Random Glucose Calcium Phosphorus Magnesium 10/20/18 10/20/18 10/20/18 06:52 06:52 12:48 PT with INR 19.10 H INR 1.61 H* Sodium 144 Potassium 4.0 Chloride 105 Carbon Dioxide 30 Anion Gap 9 BUN 56.7 H Creatinine 3.9 H Est GFR (CKD-EPI)AfAm 11.97 Est GFR (CKD-EPI)NonAf 10.33 POC Glucometer 184 Random Glucose 88 Calcium 8.7 Phosphorus 3.5 Magnesium 1.8 HOSPITAL COURSE: Date of Admission:10/08/18 This is a 77 y/o F with a PMH of Date of Discharge: 10/20/18 Discharge Summary Reason For Visit: CONGESTIVE HEART FAILURE Current Active Problems CHF (congestive heart failure) (Chronic) Condition: Improved - Instructions Diet, Activity, Other Instructions: You were admitted for confusion and swelling throughout your body. You were placed on medications to lose the excess water in your body and since then you have greatly improved and are now stable. You were monitored on a heart monitor (telemetry) for a while to assess for any heart rhythm abnormalities and you were not found to have any. You had some increasing tiredness (lethargy) and confusion (altered mental status), in which we evaluated your neck arteries( carotid), your brain (MRI,CT) and brain vessels (MRA) and had a neurologist evaluate you. 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 Furthermore, you had severe eye pain and pressure in your left eye with blurred vision and we had an eye doctor come evaluate you and they placed you on an eye drop that has improved your eye pain. You will need to follow up with Dr. Patel immediately after you are discharged to evaluate your eye, within 1 week. You will need to follow up with your neurologist (Dr. Mccormack) in 1 week. Your kidney function was abnormal prior to your arrival but it is now stable and we would like you to follow up with your kidney doctor (Dr. To) in 1 week. You will need to follow up with your lung doctor (Dr. Fletcher) in 1 week to assess your breathing. You should be evaluated by physical therapy to improve your strength and ability to walk. Medications to continue at home: Torsemide 20 mg by mouth once daily Prednisolone acetate 1% 2 eye drops 4 times a day in your left eye until you follow up with your eye doctor where they can make their recommendation. Please continue all your other medications as prescribed. You should not give the morning dose of labetalol if the top Blood pressure number is <130 (systolic ) or if the bottom blood pressure number (diastolic) goes below 60. You should return to the emergency room if you have any worsening of your current symptoms or: chest pain, shortness of breath, fevers, chills. Next INR on 10/22/18 then in 2 days after that . goal 2-3 Referrals: Kodi Fletcher MD [Staff Physician] - 1 Week Gustavo Mccormack MD [Staff Physician] - 1 Week Mello De La O MD [Staff Physician] - 1 Week Tylor To MD [Staff Physician] - 1 Week Disposition: [facility] - Home Medications Comprehensive Discharge Medication List: Ambulatory Orders Albuterol 0.083% Nebulizer Norma [Ventolin 0.083% Nebulizer Soln -] 1 amp NEB Q4H PRN #0 amp 09/15/18 Albuterol 2.5/Ipratropium 0.5 [Duoneb -] 1 amp NEB QID PRN 30 Days amp Budesonide/Formeterol Fumarate [SYMBICORT 160/4.5mcg -] 2 puff IH BID inhaler 09/15/18 Folic Acid - 1 mg PO DAILY tablet 09/15/18 Insulin (Levemir) [Levemir Vial] 10 units SQ DAILY@0800 #3 ml 09/15/18 Insulin (Levemir) [Levemir Vial] 24 units SQ HS #6 ml 09/15/18 Labetalol HCl [Normodyne -] 200 mg PO BID #60 tablet 09/15/18 Sodium Bicarbonate - 650 mg PO BID tablet 09/15/18 Warfarin Sodium [Coumadin] 7.5 mg PO HS #30 tablet 09/15/18 Hydralazine HCl 100 mg PO TID #90 tablet 09/16/18 Amlodipine Besylate [Norvasc -] 10 mg PO DAILY 10/08/18 Calcium Acetate 667 mg PO TID 10/08/18 Cholecalciferol (Vitamin D3) [Vitamin D3] 5,000 unit PO DAILY 10/08/18 Insulin Sliding Scale [Novolog Vial Sliding Scale -] 1 unit SQ ASDIR PRN Pantoprazole Sodium 40 mg PO DAILY 10/08/18 Diltiazem HCl [Diltiazem 24Hr ER (Cd)] 120 mg PO DAILY 10/09/18 Atorvastatin Ca [Lipitor] 80 mg PO HS tablet 10/20/18 Erythromycin 0.5% Eye Ointment [Erythromycin 0.5% Eye Ointment -] 1 applic OU DAILY tube 10/20/18 Polyvinyl Alcohol [Artificial Tears] 1 drop OU BID PRN #0 drops 10/20/18 Prednisolone 1% Ophthalmic [Pred Forte 1% -] 2 drop OS QID drops 10/20/18 Torsemide [Demadex -] 20 mg PO DAILY tablet 10/20/18 - Discharge Referral Referred to [facility] No ATTENDING PHYSICIAN STATEMENT I saw and evaluated the patient. I reviewed the resident's note and discussed the case with the resident. I agree with the resident's findings and plan as documented. SUBJECTIVE: OBJECTIVE: ASSESSMENT AND PLAN:
--- NOTE | 2018-10-20 15:33 | PN ---
Teaching Attending Note Name of Resident: Sridhar Monk ATTENDING PHYSICIAN STATEMENT I saw and evaluated the patient. I reviewed the resident's note and discussed the case with the resident. I agree with the resident's findings and plan as documented. SUBJECTIVE: No fever or chills. No JANE , no Abd pain , SOB is much better . eye pain is better . no diplopia OBJECTIVE: NAD, awake CV: RRR, 2/6 SM at RUSB. Lungs: good air entry. Decreased breath sounds at bases Ext : no edema or erythema Abd: soft, NT, Nd, NL BS ASSESSMENT AND PLAN: 77 y/o lady with h/o CAD, s/p WI, AFib , HTN, diastolic CHF, pulm HTN, TREVON, DM , LLE DVT, CKD 5, GERD and other medical problems who was admitted and treated for CHF exacerbation 1- Acute on chronci diastolic heart failure 2- HTN 3- Metabolic encephalopathy : resolved . at abse line now 4- CKD : declines HD 5- A fib 6- DM plan : - cont torsemide at 20 daily - f/u with renal and PCP and card and Pulm - monitor BP carefully - cont couamdin at 7.5. next INR 10/22 - cont insulin dc to rehab d/w renal
--- NOTE | 2018-10-20 17:05 | PN ---
Progress Note (short form) - Note Progress Note: Renal follow up for CKD Pt seen and examined at the bedside awake and alert feels better today, eye pain is resolved making urine no overt sob, cp, abd pain, N/V/D Vital Signs Temperature 98.1 F 10/20/18 14:34 Pulse Rate 65 10/20/18 14:34 Respiratory Rate 20 10/20/18 14:34 Blood Pressure 125/49 L 10/20/18 14:34 O2 Sat by Pulse Oximetry (%) 96 10/20/18 09:00 Intake & Output 10/17/18 10/18/18 10/19/18 10/20/18 23:59 23:59 23:59 23:59 Intake Total 250 1060 240 600 Balance 250 1060 240 600 Weight 91.943 kg 94.971 kg NAD awake and alert RRR Dec BS no LE edema CBC, BMP 10/19/18 06:34 10/20/18 06:52 Current Medications Acetaminophen (Tylenol -) 650 mg PO Q4H PRN PRN Reason: MODERATE PAIN Last Admin: 10/19/18 15:02 Dose: 650 mg Albuterol/Ipratropium (Duoneb -) 1 amp NEB Q6H PRN PRN Reason: SHORTNESS OF BREATH Amlodipine Besylate (Norvasc -) 10 mg PO DAILY [facility] Last Admin: 10/20/18 09:23 Dose: 10 mg Arformoterol Tartrate (Brovana (Restricted To Pulmonology/Resp) -) 1 amp NEB RBID [facility] Last Admin: 10/20/18 08:20 Dose: 1 amp Artificial Tears (Artificial Tears) 1 drop OU BID PRN PRN Reason: DRY EYES Last Admin: 10/17/18 10:30 Dose: 1 drop Atorvastatin Calcium (Lipitor -) 80 mg PO HS [facility] Last Admin: 10/19/18 22:06 Dose: 80 mg Calcium Acetate (Phoslo -) 667 mg PO TIDCM [facility] Last Admin: 10/20/18 16:32 Dose: 667 mg Cholecalciferol (Vitamin D3 -) 5,000 unit PO DAILY [facility] Last Admin: 10/20/18 09:17 Dose: 5,000 unit Erythromycin (Erythromycin 0.5% Eye Ointment) 1 applic OU DAILY [facility] Last Admin: 10/20/18 14:14 Dose: Not Given Hydralazine HCl (Apresoline -) 100 mg PO TID [facility] Last Admin: 10/20/18 14:15 Dose: Not Given Insulin Aspart (Novolog Vial Sliding Scale -) 1 vial SQ [facility]; Protocol Last Admin: 10/20/18 16:53 Dose: Not Given Insulin Detemir (Levemir Vial) 10 units SQ [facility] Last Admin: 10/19/18 22:05 Dose: 10 units Labetalol HCl (Normodyne -) 200 mg PO BID [facility] Last Admin: 10/20/18 09:24 Dose: 200 mg Pantoprazole Sodium (Protonix -) 40 mg PO DAILY [facility] Last Admin: 10/20/18 09:28 Dose: 40 mg Prednisolone Acetate (Pred Forte 1% -) 2 drop OS QID [facility] Last Admin: 10/20/18 16:30 Dose: 2 drop Torsemide (Demadex -) 20 mg PO DAILY [facility] Last Admin: 10/20/18 09:24 Dose: 20 mg Warfarin Sodium 5 mg/ Warfarin (Sodium 2 mg) 7 mg PO DAILY@1800 [facility] Last Admin: 10/19/18 17:42 Dose: 7 mg 77 year old woman with history of 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 #CKD stage 4/5, renal function stable #CHF with pulmonary congestion #COPD/Chronic dyspnea #LE edema #Hypertension #Acute on Chronic anemia Renal function stable continue PO torsemide at 20mg daily for edema management no emergent indication for [employer] despite eGFR < 15 continue PO torsemide, edema now resolved continue Nebs per pulmonary, BIPAP as needed overall prognosis is guarded will need outpatient monitoring of renal functon Thank you Tylor Funez DO
--- NOTE | 2018-10-20 18:41 | PN ---
Progress Note (short form) - Note Progress Note: NEUROLOGY PROGRESS: Events reviewed and discussed with staff. Vascular consult read and appreciated. MRI of brain (reviewed) showed moderate atrophy with chronic periventricular changes. Chronic lacunae in centrum semiovale. No flow in L distal ICA. MRA of brain and neck vessels CONFIRM occluded left ICA with atherosclerotic changes in R ICA with moderate stenosis. Carotid duplex: Moderate scattered plaques with occluded L ICA and proximal R ICA up to 70%. Improvement in eye pain and pressure under eye. No blurred vision at this time. Awake today, no longer wearing O2. Reports she walked a short distance with PT today. CRP= 0.6; ESR= 45 RPR nonreactive PARISH: YP=141/63 NEURO: Awake, alert, responsive. [facility]. "Now on 7th floor. "Month 8" "2019 " "TRUMP." + glabella. CNII-CNXII: EOM's full without nystagmus. Full kee. No facial. Motor: Symmetric grasps. Min Cogwheeling present L >R, with intermittent rest tremor on right. Reflexes symmetric throughout. Gait: PT defers Impression: Mild B/L Cerebral Dysfunction (OMS, chronic) with waxing and waning levels of alertness and cognition L ICA occlusion with left Amorosis fugax ? Migraines Headaches Mild Extrapyramidal features Suggest: Continue perfusion by maintaining BP's in 130-140/ 80-90 range to assure collateral perfusion Pt pending possible D/C back to [facility] or [facility] for rehabilitation after cleared by vascular surgery Continue warfarin for AFib (?) although antiplatelet Rx might be beneficial for atherosclerotic carotid disease Neuro f/u as out patient Thank you very much, Gustavo Mccormack MD
[2018-10-20] MEDS ORDERED: WARFARIN NA 5 MG TABLET (UD) ONE (18:48)
[2018-10-20] MEDS ORDERED: WARFARIN NA 2 MG TABLET (UD) ONE (18:48)
[2018-10-20] MEDS: WARFARIN NA 5 MG, WARFARIN NA 2 MG PO SCH (18:49)
[2018-10-20] MEDS: ATORVASTATIN CA 80 MG TABLET (FP) PO SCH (22:01)
[2018-10-20] MEDS: INSULIN (LEVEMIR) 100 UNITS/ML UNITS SQ SCH (22:05)
[2018-10-21] MEDS: INSULIN SLIDING SCALE (NOVOLOG) 1 VIAL SQ SCH ×2 (06:18→11:04)
[2018-10-21] MEDS: hydrALAZINE HCL 50 MG TABLET (FP) PO SCH (06:18)
[2018-10-21] MEDS: ARFORMOTEROL TARTRATE 15 MCG/2 ML VIAL NEB SCH (07:30)
[2018-10-21] MEDS: CALCIUM ACETATE 667 MG CAPSULE (FP) PO SCH ×2 (07:56→11:04)
[2018-10-21] MEDS: CHOLECALCIFEROL (VIT D3) 1,000 UNIT (25 MCG) TABLET PO SCH (09:09)
[2018-10-21] MEDS: PANTOPRAZOLE 40 MG TABLET (FP) PO SCH (09:09)
[2018-10-21] MEDS: amLODIPine BESYLATE 10 MG TABLET (FP) PO SCH (09:09)
[2018-10-21] MEDS: LABETALOL HCL 200 MG TABLET (FP) PO SCH (09:10)
[2018-10-21] MEDS: prednisoLONE ACETATE 1% OPHTH SUSP 5 ML BOTTLE OS SCH (09:10)
[2018-10-21] MEDS: TORSEMIDE 20 MG TABLET (FP) PO SCH (09:10)
[2018-10-21] MEDS: ERYTHROMYCIN 0.5% OPHTHALMIC OINTMENT 3.5 GM TUBE OU SCH (09:10)
[2018-10-21 10:49] VITALS: BP 144/56; PULSE 69; TEMP 97.5
--- NOTE | 2018-10-21 15:59 | PN ---
Teaching Attending Note Name of Resident: Sridhar Monk ATTENDING PHYSICIAN STATEMENT I saw and evaluated the patient. I reviewed the resident's note and discussed the case with the resident. I agree with the resident's findings and plan as documented. SUBJECTIVE: no fever or chills. has no CP or SOB . OBJECTIVE: NAD, awake CV: RRR, 2/6 SM at RUSB. Lungs: good air entry. Decreased breath sounds at bases Ext : no edema or erythema ASSESSMENT AND PLAN: 77 y/o lady with h/o CAD, s/p KS, AFib , HTN, diastolic CHF, pulm HTN, TREVON, DM , LLE DVT, CKD 5, GERD and other medical problems who was admitted and treated for CHF exacerbation 1- Acute on chronci diastolic heart failure 2- HTN 3- Metabolic encephalopathy : resolved . 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 next INR 10/22 - cont insulin - resident, Dr. Monk, d/w dr. Gruber earlier during admission and no intervention was recommended. patietnis to follow up with Dr. Gruber. - due to fluctuating INR with many admissions with elevated INR , i would feel aspirin is risky for bleed before her INR regulates. will leave it upt to PCP and vascular as outpt. can't use NOACs due to renal failure d/c'd yesterday, will leave today
== END 2018-10-21 11:19 | DRG 291 ==
LOC: JER 14:07 → JERBED 16:49 → J4W 20:43 → J7W 10-15 20:15
PROVIDERS: ADMIT Internal Medicine; ATTEND Internal Medicine
PROC: 5A09357 Assistance with Respiratory Ventilation, Less than 24 Consecutive Hours, Continuous Positive Airway Pressure (ICD-10-PCS; principal; 2018-10-17)
PROC: 3E0F7GC Introduction of Other Therapeutic Substance into Respiratory Tract, Via Natural or Artificial Opening (ICD-10-PCS; 2018-10-17)
DX: I13.2 Hypertensive heart and chronic kidney disease with heart failure and with stage 5 chronic kidney disease, or end stage renal disease (principal); I50.33 Acute on chronic diastolic (congestive) heart failure; J96.92 Respiratory failure, unspecified with hypercapnia; G92 Toxic encephalopathy; E87.2 Acidosis; N18.5 Chronic kidney disease, stage 5; E87.3 Alkalosis; N39.0 Urinary tract infection, site not specified; I48.92 Unspecified atrial flutter; J44.1 Chronic obstructive pulmonary disease with (acute) exacerbation; I48.91 Unspecified atrial fibrillation; I13.0 Hypertensive heart and chronic kidney disease with heart failure and stage 1 through stage 4 chronic kidney disease, or unspecified chronic kidney disease; E11.21 Type 2 diabetes mellitus with diabetic nephropathy; B96.5 Pseudomonas (aeruginosa) (mallei) (pseudomallei) as the cause of diseases classified elsewhere; E11.22 Type 2 diabetes mellitus with diabetic chronic kidney disease; E11.42 Type 2 diabetes mellitus with diabetic polyneuropathy; H10.32 Unspecified acute conjunctivitis, left eye; D63.1 Anemia in chronic kidney disease; E11.649 Type 2 diabetes mellitus with hypoglycemia without coma; G47.33 Obstructive sleep apnea (adult) (pediatric); Z87.891 Personal history of nicotine dependence; I27.20 Pulmonary hypertension, unspecified; Z86.718 Personal history of other venous thrombosis and embolism; Z79.4 Long term (current) use of insulin; R35.0 Frequency of micturition; I25.2 Old myocardial infarction; Z79.01 Long term (current) use of anticoagulants; K21.9 Gastro-esophageal reflux disease without esophagitis; F32.9 Major depressive disorder, single episode, unspecified; I25.10 Atherosclerotic heart disease of native coronary artery without angina pectoris; E66.9 Obesity, unspecified; Z68.32 Body mass index [BMI] 32.0-32.9, adult; N32.81 Overactive bladder; E86.1 Hypovolemia; I65.29 Occlusion and stenosis of unspecified carotid artery; G43.909 Migraine, unspecified, not intractable, without status migrainosus
CPT/HCPCS: 36415; 36600; 70450-TC; 70544-TC; 70547-TC; 70551-TC; 71045-TC-FY; 72141-TC; 74176-TC; 80048; 80053; 81003; 82140; 82607; 82728; 82746; 82803; 82962; 83540; 83550; 83605; 83735; 83880; 84100; 84443; 84484; 85025; 85027; 85610; 85651; 85730; 86140; 86593; 86850; 86900; 86901; 87040; 87077; 87086; 87186; 93005; 93010; 93880-TC; 93970-TC; 94640; 94660; 94761; 97116-GP; 97161-GP; 99283-25; J0131; J0881

== ENCOUNTER 2019-01-04 17:36 | Emergency (ER) | payer OTHER ==
[2019-01-04] MEDS ORDERED: DIPHTH,PERTUSS(ACELL),TET 0.5 ML DISP.SYRIN IM ONE ×2 (17:44→18:02)
[2019-01-04] MEDS ORDERED: BACITRACIN 15 GM TUBE TOPICAL OINTMENT TP ONE (17:44)
--- NOTE | 2019-01-04 17:44 | PDOC ---
Rapid Medical Evaluation Time Seen by Provider: 01/04/19 17:41 Medical Evaluation: Allergies Allergy/AdvReac Type Severity Reaction Status Date / Time No Known Allergies Allergy Verified 09/07/18 12:50 01/04/19 17:42 CC: right knee pain s/p trip and fall PE: abrasion to anterior knee Orders: Td, bacitracin The patient will proceed to the ER for continued Evaluation. Discharge Disposition - Diagnosis Abrasion - Referrals - Patient Instructions - Post Discharge Activity
[2019-01-04 17:46] VITALS: TEMP 98; BMI 28.4
[2019-01-04] MEDS ORDERED: ACETAMINOPHEN 500 MG TABLET (FP) PO ONE (18:25)
[2019-01-04] MEDS ORDERED: ACETAMINOPHEN 500 MG TABLET (FP) ONE (18:26)
--- NOTE | 2019-01-04 18:30 | PDOC ---
History of Present Illness - General Chief Complaint: Injury Stated Complaint: FALL Time Seen by Provider: 01/04/19 17:41 - History of Present Illness Initial Comments: 01/04/19 18:28 78-year-old female presents for evaluation of right knee pain after mechanical trip and fall directly onto the right knee Past History - Past Medical History Allergies/Adverse Reactions: Allergies Allergy/AdvReac Type Severity Reaction Status Date / Time No Known Allergies Allergy Verified 01/04/19 17:46 Home Medications: Ambulatory Orders Albuterol 0.083% Nebulizer Norma [Ventolin 0.083% Nebulizer Soln -] 1 amp NEB Q4H PRN #0 amp 09/15/18 Albuterol 2.5/Ipratropium 0.5 [Duoneb -] 1 amp NEB QID PRN 30 Days amp Budesonide/Formeterol Fumarate [SYMBICORT 160/4.5mcg -] 2 puff IH BID inhaler 09/15/18 Folic Acid - 1 mg PO DAILY tablet 09/15/18 Insulin (Levemir) [Levemir Vial] 10 units SQ DAILY@0800 #3 ml 09/15/18 Insulin (Levemir) [Levemir Vial] 24 units SQ HS #6 ml 09/15/18 Labetalol HCl [Normodyne -] 200 mg PO BID #60 tablet 09/15/18 Sodium Bicarbonate - 650 mg PO BID tablet 09/15/18 Warfarin Sodium [Coumadin] 7.5 mg PO HS #30 tablet 09/15/18 Hydralazine HCl 100 mg PO TID #90 tablet 09/16/18 Amlodipine Besylate [Norvasc -] 10 mg PO DAILY 10/08/18 Calcium Acetate 667 mg PO TID 10/08/18 Cholecalciferol (Vitamin D3) [Vitamin D3] 5,000 unit PO DAILY 10/08/18 Insulin Sliding Scale [Novolog Vial Sliding Scale -] 1 unit SQ ASDIR PRN Pantoprazole Sodium 40 mg PO DAILY 10/08/18 Diltiazem HCl [Diltiazem 24Hr ER (Cd)] 120 mg PO DAILY 10/09/18 Atorvastatin Ca [Lipitor] 80 mg PO HS tablet 10/20/18 Erythromycin 0.5% Eye Ointment [Erythromycin 0.5% Eye Ointment -] 1 applic OU DAILY tube 10/20/18 Polyvinyl Alcohol [Artificial Tears] 1 drop OU BID PRN #0 drops 10/20/18 Prednisolone 1% Ophthalmic [Pred Forte 1% -] 2 drop OS QID drops 10/20/18 Torsemide [Demadex -] 20 mg PO DAILY tablet 10/20/18 Anemia: Yes Asthma: Yes Cancer: No Cardiac Disorders: Yes (AF s/p ablation (coumadin), NV) CVA: No COPD: Yes CHF: Yes DVT: No Dementia: No Diabetes: Yes (IDDM) Dialysis: No (ckd) GI Disorders: Yes (GERD) Disorders: Yes HTN: Yes Hypercholesterolemia: Yes Liver Disease: No Psychiatric Problems: Yes (DEPRESSION) Seizures: No Thyroid Disease: (CKD) - Surgical History Abdominal Surgery: Yes (TUBAL LIG.) Appendectomy: No Cardiac Surgery: Yes (ablation) Cholecystectomy: No Lung Surgery: No Neurologic Surgery: No Orthopedic Surgery: Yes (hammer toes,trigger finger) - Immunization History Immunization Up to Date: Yes - Psycho Social/Smoking Cessation Hx Smoking Status: Yes Smoking History: Never smoked Have you smoked in the past 12 months: No Number of Cigarettes Smoked Daily: 1 If you are a former smoker, when did you quit?: 1 year ago 'Breaking Loose' booklet given: 12/10/17 Hx Alcohol Use: No Drug/Substance Use Hx: No Substance Use Type: None Hx Substance Use Treatment: No Review of Systems - Review of Systems Musculoskeletal: Yes: Joint Pain *Physical Exam - Vital Signs Last Vital Signs Temp Pulse Resp BP Pulse Ox 98 F 58 L 18 198/78 H 99 01/04/19 17:41 01/04/19 17:41 01/04/19 17:41 01/04/19 17:41 01/04/19 17:41 - Physical Exam Comments: 01/04/19 18:29 Superficial abrasion on the anterior aspect of the right knee range of motion 0- 90. Diffuse mild tenderness across the anterior aspect of the knee no instability or gross sensorimotor deficits thighs and calves are soft and nontender neurovascular intact. ED Treatment Course - Medications Given in the ED: ED Medications Discontinued Medications Generic Name Dose Route Start Last Admin Trade Name Freq PRN Reason Stop Dose Admin Bacitracin 1 applic 01/04/19 17:44 11/05/19 18:08 Bacitracin - TP 01/04/19 17:45 1 applic ONCE ONE Administration Diphtheria/Tetanus/Acell Pertussis 0.5 ml 01/04/19 17:44 01/04/19 18:09 Boostrix - IM 01/04/19 17:45 0.5 ml .ONCE ONE Administration Medical Decision Making - Medical Decision Making 01/04/19 18:29 X-rays of the right knee show no evidence of fracture trauma there is moderate osteopenic changes and degenerative joint disease right knee contusion weight- bear as tolerated with crutches follow-up with orthopedics Discharge - Discharge Information Problems reviewed: Yes Clinical Impression/Diagnosis: Abrasion, Contusion of right knee Condition: Stable Disposition: HOME - Admission No - Follow up/Referral Referrals: Faisal Morris II, DO [Primary Care Provider] - Carlo Munguia DO [Staff Physician] - - Patient Discharge Instructions Additional Instructions: You may weight-bear as tolerated crutches and follow-up with orthopedic surgery in 1 to 2 days for further evaluation and treatment options. Return to the emergency room for worsening symptoms and Tylenol as directed for pain. - Post Discharge Activity
[2019-01-04 18:47] VITALS: BP 182/82; PULSE 88
== END 2019-01-04 18:47 | disposition home or self-care (01) ==
LOC: JERFT 17:36
PROC: 3E0234Z Introduction of Serum, Toxoid and Vaccine into Muscle, Percutaneous Approach (ICD-10-PCS; principal; 2019-01-04)
DX: S80.01XA Contusion of right knee, initial encounter (principal); S80.211A Abrasion, right knee, initial encounter; W18.39XA Other fall on same level, initial encounter; Y93.89 Activity, other specified; Y92.29 Other specified public building as the place of occurrence of the external cause; Y99.8 Other external cause status; I25.10 Atherosclerotic heart disease of native coronary artery without angina pectoris; I13.0 Hypertensive heart and chronic kidney disease with heart failure and stage 1 through stage 4 chronic kidney disease, or unspecified chronic kidney disease; I50.89 Other heart failure; N18.9 Chronic kidney disease, unspecified; I25.2 Old myocardial infarction; I48.91 Unspecified atrial fibrillation; Z79.01 Long term (current) use of anticoagulants; E11.9 Type 2 diabetes mellitus without complications; E78.00 Pure hypercholesterolemia, unspecified; F32.9 Major depressive disorder, single episode, unspecified; Z79.4 Long term (current) use of insulin; K21.9 Gastro-esophageal reflux disease without esophagitis; D64.9 Anemia, unspecified; J44.9 Chronic obstructive pulmonary disease, unspecified; J45.998 Other asthma; Z98.51 Tubal ligation status
CPT/HCPCS: 73562-TC-RT-FY; 90471; 90715; 99282-25

== ENCOUNTER 2020-10-26 01:29 | Inpatient (IN) | payer OTHER ==
[2020-10-26 02:02] VITALS: BMI 24.3
[2020-10-26 03:38] LABS: BASO % 0.3 % (0-2.0); EOS % 0.1 % (0-4.5); HEMATOCRIT 33.3 % (32.4-45.2); LYMPH % 9.5 % (8-40); MCH 31.1 pg (25.7-33.7); MCHC 33.2 g/dl (32.0-36.0); MEAN CELL VOLUME 93.7 fl (80-96); MONO % 5.3 % (3.8-10.2); NEUT % 84.8 % (42.8-82.8); PLATELET COUNT 303 10^3/uL (134-434); RBC 3.55 M/mm3 (3.60-5.2); RDW 15.9 % (11.6-15.6); WHITE BLOOD COUNT 8.4 K/mm3 (4.0-10.0)
[2020-10-26 03:44] LABS: VENOUS O2 SATURATION 86.5 % (70-80); VENOUS PCO2 28.3 mmHg (38-52); VENOUS PH 7.264 (7.310-7.410)
[2020-10-26 03:47] LABS: INR 2.7 (0.83-1.09); PROTHROMBIN TIME (PATIENT) 31.7 SEC (9.7-13.0)
[2020-10-26 03:50] LABS: ACTIVATED PTT 59.9 SECONDS (25.2-36.5)
[2020-10-26 04:04] LABS: BILIRUBIN,DIRECT 0.1 mg/dL (0.0-0.2)
[2020-10-26 04:50] LABS: CHLORIDE 111 mmol/L (98-107); SODIUM 141 mmol/L (136-145)
[2020-10-26 04:52] LABS: CALCIUM 7.4 mg/dL (8.5-10.1)
[2020-10-26 04:53] LABS: ALBUMIN 2.7 g/dl (3.4-5.0); ANION GAP 18 MMOL/L (8-16); CO2 13 mmol/L (21-32); GLUCOSE,RANDOM 205 mg/dL (74-106)
[2020-10-26 04:55] LABS: SGOT/AST 36 U/L (15-37); SGPT/ALT 17 U/L (13-61)
[2020-10-26 04:57] LABS: BILIRUBIN,TOTAL 0.4 mg/dL (0.2-1); TOT PROT 6.4 g/dl (6.4-8.2)
[2020-10-26 04:59] LABS: ALK PHOS 35 U/L (45-117)
[2020-10-26] MEDS ORDERED: METOCLOPRAMIDE HCL INJECTION 10 MG/2 ML VIAL IVPUSH ONE (05:37)
[2020-10-26] MEDS ORDERED: ACETAMINOPHEN 1000 MG/100 ML VIAL (NON FORMULARY) IVPB ONE (05:43)
[2020-10-26] MEDS ORDERED: METOCLOPRAMIDE HCL INJECTION 10 MG/2 ML VIAL ONE (06:08)
[2020-10-26] MEDS ORDERED: ACETAMINOPHEN INJECTION 100 ML IVPB ONE (06:09)
[2020-10-26 06:59] LABS: BLOOD UREA NITROGEN 113.8 mg/dL (7-18)
[2020-10-26] MEDS ORDERED: SODIUM CHLORIDE 0.9% 500 ML INFUS.BAG IV ONE (07:51)
[2020-10-26] MEDS: CEFTRIAXONE 1 GM in DEXTROSE 5%-WATER - 50 ML IVPB SCH (12:01)
[2020-10-26] MEDS ORDERED: AZITHROMYCIN IVPB 500 MG/250 ML BAG IVPB ONE (12:02)
[2020-10-26] MEDS ORDERED: CEFTRIAXONE 1 GM/50 ML BAG ONE (12:02)
[2020-10-26] MEDS: AZITHROMYCIN IVPB 500 MG/250 ML BAG IVPB SCH (13:08)
[2020-10-26] MEDS: INSULIN SLIDING SCALE (NOVOLOG) 1 VIAL SQ SCH ×3 (13:11→21:46)
[2020-10-26] MEDS ORDERED: SODIUM BICARBONATE 8.4% 50 MEQ/50 ML DISP.SYRIN IVPUSH SCH (15:45)
[2020-10-26] MEDS ORDERED: SODIUM CHLORIDE 0.45% 1,000 ML IV SCH (16:00)
[2020-10-26] MEDS: SODIUM BICARBONATE 650 MG TABLET PO SCH ×2 (19:04→21:45)
[2020-10-26] MEDS ORDERED: WARFARIN NA 7.5 MG TABLET PO SCH (19:30)
[2020-10-26] MEDS: hydrALAZINE HCL 50 MG TABLET (FP) PO SCH (21:45)
[2020-10-27] MEDS ORDERED: ACETAMINOPHEN 325 MG TABLET (FP) PO ONE (00:37)
[2020-10-27] MEDS: SODIUM BICARBONATE 650 MG TABLET PO SCH ×3 (05:55→22:00)
[2020-10-27] MEDS: hydrALAZINE HCL 50 MG TABLET (FP) PO SCH ×3 (05:55→22:00)
[2020-10-27] MEDS ORDERED: dilTIAZem HCL 25 MG/5 ML - 5 ML VIAL IVPUSH ONE ×2 (06:03→07:41)
[2020-10-27] MEDS: INSULIN SLIDING SCALE (NOVOLOG) 1 VIAL SQ SCH ×3 (06:17→16:38)
[2020-10-27 08:03] LABS: BASO % 0.2 % (0-2.0); HEMATOCRIT 30.8 % (32.4-45.2); HEMOGLOBIN 10.5 GM/dL (10.7-15.3); LYMPH % 14.2 % (8-40); MCH 31.7 pg (25.7-33.7); MCHC 34.1 g/dl (32.0-36.0); MEAN CELL VOLUME 93.1 fl (80-96); MEAN PLT VOLUME 8.7 fl (7.5-11.1); MONO % 5.9 % (3.8-10.2); NEUT % 79.7 % (42.8-82.8); PLATELET COUNT 319 10^3/uL (134-434); RBC 3.31 M/mm3 (3.60-5.2); RDW 15.6 % (11.6-15.6); WHITE BLOOD COUNT 6.8 K/mm3 (4.0-10.0)
[2020-10-27 08:12] LABS: CHLORIDE 112 mmol/L (98-107); SODIUM 144 mmol/L (136-145)
[2020-10-27 08:15] LABS: ANION GAP 15 MMOL/L (8-16); CO2 16 mmol/L (21-32)
[2020-10-27 08:17] LABS: ALBUMIN 2.4 g/dl (3.4-5.0)
[2020-10-27 08:19] LABS: MAGNESIUM 2.5 mg/dL (1.8-2.4); SGOT/AST 36 U/L (15-37); SGPT/ALT 15 U/L (13-61)
[2020-10-27 08:20] LABS: CALCIUM 7.3 mg/dL (8.5-10.1); TOT PROT 6.5 g/dl (6.4-8.2)
[2020-10-27 08:22] LABS: GLUCOSE,RANDOM 105 mg/dL (74-106)
[2020-10-27 08:25] LABS: BILIRUBIN,TOTAL 0.4 mg/dL (0.2-1); CHOLESTEROL 173 mg/dL (50-200); LDL CHOLESTEROL (ONLY SJRH) 100 mg/dL (5-100); PHOSPHOROUS 4.6 mg/dL (2.5-4.9); TRIGLYCERIDES 231 mg/dL (0-150)
[2020-10-27 08:27] LABS: ALK PHOS 43 U/L (45-117)
[2020-10-27 08:28] LABS: HDL CHOLESTEROL 29 mg/dL (40-60)
[2020-10-27 08:29] LABS: BLOOD UREA NITROGEN 117.7 mg/dL (7-18); CREATININE 7.7 mg/dL (0.55-1.3)
[2020-10-27] MEDS ORDERED: cefTRIAXone SODIUM 1 GM VIAL ONE (09:25)
[2020-10-27] MEDS ORDERED: DEXTROSE 5%-WATER - 50 ML IVPB ONE (09:26)
[2020-10-27] MEDS: CEFTRIAXONE 1 GM in DEXTROSE 5%-WATER - 50 ML IVPB SCH (09:38)
[2020-10-27] MEDS: AZITHROMYCIN IVPB 500 MG/250 ML BAG IVPB SCH (09:40)
[2020-10-27] MEDS: DEXAMETHASONE SOD PHOSPHATE 10 MG/1 ML VIAL IVPUSH SCH (09:42)
[2020-10-27 11:39] LABS: PROTHROMBIN TIME (PATIENT) 47.8 SEC (9.7-13.0)
[2020-10-27 11:48] LABS: INR 4.12 (0.83-1.09)
[2020-10-27 13:16] LABS: SARS COV-2 MOLECULAR Presumptive Positive (Negative)
[2020-10-27] MEDS ORDERED: REMDESIVIR 200 MG in SODIUM CHLORIDE 250 ML IVPB ONE (14:30)
[2020-10-27] MEDS ORDERED: dilTIAZem HCL 50 MG/10 ML - 10 ML VIAL IVPUSH PRN (16:00)
[2020-10-27] MEDS: dilTIAZem HCL 30 MG TABLET PO SCH ×2 (16:38→17:34)
[2020-10-27] MEDS: dilTIAZem HCL 25 MG/5 ML - 5 ML VIAL IVPUSH PRN (18:22)
[2020-10-28] MEDS: INSULIN SLIDING SCALE (NOVOLOG) 1 VIAL SQ SCH ×5 (01:00→21:10)
[2020-10-28] MEDS: dilTIAZem HCL 30 MG TABLET PO SCH ×5 (01:35→23:58)
[2020-10-28] MEDS: ACETAMINOPHEN 325 MG TABLET (FP) PO PRN ×3 (03:39→21:09)
[2020-10-28] MEDS: hydrALAZINE HCL 50 MG TABLET (FP) PO SCH ×3 (06:29→21:09)
[2020-10-28] MEDS: SODIUM BICARBONATE 650 MG TABLET PO SCH ×3 (06:29→21:09)
[2020-10-28] MEDS ORDERED: cefTRIAXone SODIUM 1 GM VIAL ONE (08:16)
[2020-10-28] MEDS ORDERED: DEXTROSE 5%-WATER - 50 ML IVPB ONE (08:17)
[2020-10-28 09:12] LABS: PROTHROMBIN TIME (PATIENT) 76.1 SEC (9.7-13.0)
[2020-10-28 09:18] LABS: BASO % 0.2 % (0-2.0); HEMATOCRIT 32.8 % (32.4-45.2); MCH 31.7 pg (25.7-33.7); MCHC 33.6 g/dl (32.0-36.0); MEAN CELL VOLUME 94.6 fl (80-96); MONO % 6.9 % (3.8-10.2); NEUT % 85.9 % (42.8-82.8); PLATELET COUNT 398 10^3/uL (134-434); RBC 3.47 M/mm3 (3.60-5.2); RDW 16.2 % (11.6-15.6); WHITE BLOOD COUNT 8.1 K/mm3 (4.0-10.0)
[2020-10-28 09:33] LABS: INR 6.53 (0.83-1.09)
[2020-10-28 09:39] LABS: CHLORIDE 107 mmol/L (98-107); SODIUM 138 mmol/L (136-145)
[2020-10-28 09:58] LABS: ALBUMIN 2.5 g/dl (3.4-5.0); SGPT/ALT 13 U/L (13-61)
[2020-10-28 10:00] LABS: ALK PHOS 45 U/L (45-117); BILIRUBIN,TOTAL 0.4 mg/dL (0.2-1); TOT PROT 6.2 g/dl (6.4-8.2)
[2020-10-28 10:01] LABS: ANION GAP 22 MMOL/L (8-16); CALCIUM 7.3 mg/dL (8.5-10.1); CO2 9 mmol/L (21-32); GLUCOSE,RANDOM 281 mg/dL (74-106); MAGNESIUM 2.3 mg/dL (1.8-2.4); SGOT/AST 25 U/L (15-37)
[2020-10-28] MEDS: DEXAMETHASONE SOD PHOSPHATE 10 MG/1 ML VIAL IVPUSH SCH (10:01)
[2020-10-28] MEDS: CEFTRIAXONE 1 GM in DEXTROSE 5%-WATER - 50 ML IVPB SCH (10:01)
[2020-10-28 10:13] LABS: LDH 545 U/L (84-246)
[2020-10-28 10:34] LABS: BLOOD UREA NITROGEN 126.3 mg/dL (7-18); CREATININE 8.1 mg/dL (0.55-1.3)
[2020-10-28] MEDS: AZITHROMYCIN IVPB 500 MG/250 ML BAG IVPB SCH (10:42)
[2020-10-28] MEDS: CHOLECALCIFEROL (VIT D3) 1,000 UNIT (25 MCG) TABLET PO SCH (14:12)
[2020-10-28] MEDS: ZINC SULFATE 220 MG CAPSULE (FP) PO SCH (14:12)
[2020-10-28] MEDS: ASCORBIC ACID 500 MG TABLET (FP) PO SCH ×2 (14:12→21:09)
[2020-10-28] MEDS: PANTOPRAZOLE 40 MG TABLET PO SCH (21:10)
[2020-10-29] MEDS: dilTIAZem HCL 30 MG TABLET PO SCH ×4 (06:13→23:00)
[2020-10-29] MEDS: INSULIN SLIDING SCALE (NOVOLOG) 1 VIAL SQ SCH ×4 (06:13→21:38)
[2020-10-29] MEDS: hydrALAZINE HCL 50 MG TABLET (FP) PO SCH ×3 (06:13→21:38)
[2020-10-29] MEDS: SODIUM BICARBONATE 650 MG TABLET PO SCH ×3 (06:13→21:38)
[2020-10-29 08:10] LABS: SARS-CoV-2 NAA Detected (Not Detected)
[2020-10-29] MEDS ORDERED: DEXTROSE 5%-WATER - 50 ML IVPB ONE ×2 (08:38→09:48)
[2020-10-29] MEDS ORDERED: cefTRIAXone SODIUM 1 GM VIAL ONE ×2 (08:38→09:47)
[2020-10-29] MEDS: AZITHROMYCIN IVPB 500 MG/250 ML BAG IVPB SCH (09:46)
[2020-10-29] MEDS: CEFTRIAXONE 1 GM in DEXTROSE 5%-WATER - 50 ML IVPB SCH (09:48)
[2020-10-29] MEDS: ZINC SULFATE 220 MG CAPSULE (FP) PO SCH (09:50)
[2020-10-29] MEDS: ASCORBIC ACID 500 MG TABLET (FP) PO SCH ×2 (09:50→21:38)
[2020-10-29] MEDS: PANTOPRAZOLE 40 MG TABLET PO SCH ×2 (09:50→21:38)
[2020-10-29] MEDS: CHOLECALCIFEROL (VIT D3) 1,000 UNIT (25 MCG) TABLET PO SCH (09:50)
[2020-10-29] MEDS: DEXAMETHASONE SOD PHOSPHATE 10 MG/1 ML VIAL IVPUSH SCH (09:50)
[2020-10-29] MEDS ORDERED: PROCHLORPERAZINE INJECTION 10 MG/2 ML VIAL IVPB ONE (11:13)
[2020-10-29 11:25] LABS: BASO % 0.1 % (0-2.0); HEMOGLOBIN 10.2 GM/dL (10.7-15.3); LYMPH % 3.2 % (8-40); MCH 30.6 pg (25.7-33.7); MEAN CELL VOLUME 92.7 fl (80-96); MEAN PLT VOLUME 8.8 fl (7.5-11.1); MONO % 6.2 % (3.8-10.2); NEUT % 90.5 % (42.8-82.8); PLATELET COUNT 442 10^3/uL (134-434); RBC 3.34 M/mm3 (3.60-5.2); RDW 15.6 % (11.6-15.6); WHITE BLOOD COUNT 13.4 K/mm3 (4.0-10.0)
[2020-10-29 11:42] LABS: CHLORIDE 108 mmol/L (98-107); SODIUM 139 mmol/L (136-145)
[2020-10-29 11:44] LABS: CALCIUM 7.9 mg/dL (8.5-10.1)
[2020-10-29 11:45] LABS: ALBUMIN 2.5 g/dl (3.4-5.0); ANION GAP 17 MMOL/L (8-16); CO2 14 mmol/L (21-32); GLUCOSE,RANDOM 298 mg/dL (74-106); MAGNESIUM 2.3 mg/dL (1.8-2.4)
[2020-10-29 11:48] LABS: PHOSPHOROUS 5.3 mg/dL (2.5-4.9); SGOT/AST 17 U/L (15-37); SGPT/ALT 12 U/L (13-61)
[2020-10-29 11:49] LABS: BILIRUBIN,TOTAL 0.3 mg/dL (0.2-1)
[2020-10-29 11:50] LABS: TOT PROT 6.1 g/dl (6.4-8.2)
[2020-10-29 11:51] LABS: ALK PHOS 49 U/L (45-117)
[2020-10-29 11:54] LABS: LDH 496 U/L (84-246)
[2020-10-29 11:58] LABS: BLOOD UREA NITROGEN 138.7 mg/dL (7-18); CREATININE 8.6 mg/dL (0.55-1.3)
[2020-10-29 12:11] LABS: PROTHROMBIN TIME (PATIENT) 102.9 SEC (9.7-13.0)
[2020-10-29] MEDS ORDERED: PT OWN MED DRAWER 7, Y5N ONE (12:12)
[2020-10-29 12:14] LABS: INR 9.07 (0.83-1.09)
[2020-10-29] MEDS ORDERED: DEXTROSE 5%-WATER - 950 ML with SODIUM BICARBONATE 8.4% - 150 MEQ IV SCH (12:30)
[2020-10-29 12:43] LABS: ERYTHROCYTE SEDIMENTATION RATE 97 mm/hr (0-30)
[2020-10-29] MEDS ORDERED: PHYTONADIONE 10 MG/1 ML AMP IVPB ONE (13:19)
[2020-10-29] MEDS: SODIUM BICARBONATE 8.4% - 150 MEQ in DEXTROSE 5%-WATER - 950 ML IV SCH (13:41)
[2020-10-29] MEDS: ACETAMINOPHEN 325 MG TABLET (FP) PO PRN (22:07)
[2020-10-30] MEDS: ACETAMINOPHEN 325 MG TABLET (FP) PO PRN ×2 (06:09→19:54)
[2020-10-30] MEDS: dilTIAZem HCL 30 MG TABLET PO SCH ×3 (06:10→17:57)
[2020-10-30] MEDS: hydrALAZINE HCL 50 MG TABLET (FP) PO SCH ×3 (06:10→21:43)
[2020-10-30] MEDS: INSULIN SLIDING SCALE (NOVOLOG) 1 VIAL SQ SCH ×4 (06:10→21:44)
[2020-10-30] MEDS: SODIUM BICARBONATE 650 MG TABLET PO SCH ×3 (06:10→21:43)
[2020-10-30 07:47] LABS: BASO % 0.1 % (0-2.0); HEMATOCRIT 27.4 % (32.4-45.2); HEMOGLOBIN 9.3 GM/dL (10.7-15.3); LYMPH % 2.7 % (8-40); MCH 31.2 pg (25.7-33.7); MEAN CELL VOLUME 91.9 fl (80-96); MEAN PLT VOLUME 8.6 fl (7.5-11.1); MONO % 5.5 % (3.8-10.2); NEUT % 91.7 % (42.8-82.8); PLATELET COUNT 373 10^3/uL (134-434); RBC 2.98 M/mm3 (3.60-5.2); RDW 15.5 % (11.6-15.6); WHITE BLOOD COUNT 14.6 K/mm3 (4.0-10.0)
[2020-10-30 08:11] LABS: CHLORIDE 104 mmol/L (98-107); SODIUM 139 mmol/L (136-145)
[2020-10-30 08:14] LABS: CALCIUM 8.1 mg/dL (8.5-10.1)
[2020-10-30 08:15] LABS: ALBUMIN 2.4 g/dl (3.4-5.0); ANION GAP 14 MMOL/L (8-16); CO2 21 mmol/L (21-32); GLUCOSE,RANDOM 289 mg/dL (74-106); MAGNESIUM 2.2 mg/dL (1.8-2.4)
[2020-10-30 08:18] LABS: SGOT/AST 15 U/L (15-37); SGPT/ALT 9 U/L (13-61)
[2020-10-30 08:19] LABS: TOT PROT 5.6 g/dl (6.4-8.2)
[2020-10-30 08:21] LABS: ALK PHOS 49 U/L (45-117)
[2020-10-30 08:24] LABS: INR 1.24 (0.83-1.09); PROTHROMBIN TIME (PATIENT) 15.2 SEC (9.7-13.0)
[2020-10-30 08:27] LABS: BILIRUBIN,TOTAL 0.5 mg/dL (0.2-1)
[2020-10-30] MEDS ORDERED: cefTRIAXone SODIUM 1 GM VIAL ONE (08:55)
[2020-10-30] MEDS ORDERED: DEXTROSE 5%-WATER - 50 ML IVPB ONE (08:55)
[2020-10-30] MEDS: CHOLECALCIFEROL (VIT D3) 1,000 UNIT (25 MCG) TABLET PO SCH (09:14)
[2020-10-30] MEDS: ASCORBIC ACID 500 MG TABLET (FP) PO SCH ×2 (09:14→21:43)
[2020-10-30] MEDS: CEFTRIAXONE 1 GM in DEXTROSE 5%-WATER - 50 ML IVPB SCH (09:14)
[2020-10-30] MEDS: ZINC SULFATE 220 MG CAPSULE (FP) PO SCH (09:14)
[2020-10-30] MEDS: PANTOPRAZOLE 40 MG TABLET PO SCH ×2 (09:14→21:43)
[2020-10-30] MEDS: DEXAMETHASONE SOD PHOSPHATE 10 MG/1 ML VIAL IVPUSH SCH (09:15)
[2020-10-30] MEDS: AZITHROMYCIN IVPB 500 MG/250 ML BAG IVPB SCH (09:15)
[2020-10-30] MEDS: SODIUM BICARBONATE 8.4% - 150 MEQ in DEXTROSE 5%-WATER - 950 ML IV SCH (09:27)
[2020-10-30 10:14] LABS: ANISOCYTOSIS 0; MACROCYTOSIS 0; PLATELET ESTIMATE NORMAL
[2020-10-30 11:07] LABS: BLOOD UREA NITROGEN 142.4 mg/dL (7-18); CREATININE 8.4 mg/dL (0.55-1.3)
[2020-10-30] MEDS ORDERED: INSULIN (NOVOLOG) ASPART 100 UNITS/ML 10ML VIAL ONE (11:15)
[2020-10-30 11:19] LABS: ACTIVATED PTT 27.5 SECONDS (25.2-36.5)
[2020-10-30 14:03] LABS: LDH 439 U/L (84-246)
[2020-10-30 14:11] LABS: INR 1.08 (0.83-1.09); PROTHROMBIN TIME (PATIENT) 13.3 SEC (9.7-13.0)
[2020-10-30] MEDS ORDERED: SODIUM CHLORIDE 250 ML IV PRN (19:26)
[2020-10-30] MEDS ORDERED: ALBUMIN HUMAN 25% 12.5 GM/50 ML VIAL IVPB SCH (19:30)
[2020-10-30] MEDS ORDERED: EPOETIN ALFA-EPBX 10,000 UNIT/ML VIAL IVPUSH ONE (19:30)
[2020-10-30] MEDS ORDERED: dilTIAZem HCL 30 MG TABLET PO ONE (19:40)
[2020-10-30] MEDS: ALBUMIN HUMAN 25% 12.5 GM/50 ML VIAL IVPB SCH ×3 (19:54→19:56)
[2020-10-30] MEDS: dilTIAZem HCL 25 MG/5 ML - 5 ML VIAL IVPUSH PRN (21:54)
[2020-10-31] MEDS: dilTIAZem HCL 25 MG/5 ML - 5 ML VIAL IVPUSH PRN (03:35)
[2020-10-31] MEDS: hydrALAZINE HCL 50 MG TABLET (FP) PO SCH ×3 (06:10→21:35)
[2020-10-31] MEDS: INSULIN SLIDING SCALE (NOVOLOG) 1 VIAL SQ SCH ×4 (06:11→22:06)
[2020-10-31] MEDS: SODIUM BICARBONATE 650 MG TABLET PO SCH ×3 (06:11→21:36)
[2020-10-31] MEDS ORDERED: cefTRIAXone SODIUM 1 GM VIAL ONE (08:28)
[2020-10-31] MEDS ORDERED: DEXTROSE 5%-WATER - 50 ML IVPB ONE (08:28)
[2020-10-31 08:35] LABS: HEMATOCRIT 28.5 % (32.4-45.2); HEMOGLOBIN 9.6 GM/dL (10.7-15.3); MCH 30.5 pg (25.7-33.7); MCHC 33.8 g/dl (32.0-36.0); MEAN PLT VOLUME 8.4 fl (7.5-11.1); PLATELET COUNT 333 10^3/uL (134-434); RBC 3.16 M/mm3 (3.60-5.2); RDW 15.3 % (11.6-15.6); WHITE BLOOD COUNT 15.8 K/mm3 (4.0-10.0)
[2020-10-31 08:41] LABS: INR 1.1 (0.83-1.09); PROTHROMBIN TIME (PATIENT) 13.3 SEC (9.7-13.0)
[2020-10-31 08:56] LABS: CALCIUM 8.3 mg/dL (8.5-10.1)
[2020-10-31 09:00] LABS: CREATININE 6.4 mg/dL (0.55-1.3)
[2020-10-31 09:01] LABS: BILIRUBIN,TOTAL 0.6 mg/dL (0.2-1); TOT PROT 6.3 g/dl (6.4-8.2)
[2020-10-31] MEDS: DEXAMETHASONE SOD PHOSPHATE 10 MG/1 ML VIAL IVPUSH SCH (09:09)
[2020-10-31] MEDS: ZINC SULFATE 220 MG CAPSULE (FP) PO SCH (09:09)
[2020-10-31] MEDS: CEFTRIAXONE 1 GM in DEXTROSE 5%-WATER - 50 ML IVPB SCH (09:10)
[2020-10-31] MEDS: PANTOPRAZOLE 40 MG TABLET PO SCH ×3 (09:10→22:06)
[2020-10-31] MEDS: ASCORBIC ACID 500 MG TABLET (FP) PO SCH ×2 (09:10→21:35)
[2020-10-31] MEDS: CHOLECALCIFEROL (VIT D3) 1,000 UNIT (25 MCG) TABLET PO SCH (09:10)
[2020-10-31] MEDS: AZITHROMYCIN IVPB 500 MG/250 ML BAG IVPB SCH (09:10)
[2020-10-31 09:27] LABS: ANISOCYTOSIS 1+; MACROCYTOSIS 0; PLATELET ESTIMATE NORMAL; TARGET CELLS 1+
[2020-10-31 09:34] LABS: ALBUMIN 2.9 g/dl (3.4-5.0); BLOOD UREA NITROGEN 100.6 mg/dL (7-18)
[2020-10-31 09:51] LABS: ERYTHROCYTE SEDIMENTATION RATE 79 mm/hr (0-30)
[2020-10-31 11:43] LABS: PHOSPHOROUS 3.5 mg/dL (2.5-4.9)
[2020-10-31] MEDS: ALBUMIN HUMAN 25% 12.5 GM/50 ML VIAL IVPB SCH ×4 (12:00→13:30)
[2020-10-31] MEDS ORDERED: SODIUM CHLORIDE 250 ML IV PRN (12:00)
[2020-10-31] MEDS ORDERED: WARFARIN NA 5 MG TABLET PO SCH (18:00)
[2020-10-31 23:25] LABS: ARTERIAL BLOOD GAS BASE EXCESS 3.1 mmol/L (-2-2); ARTERIAL BLOOD GAS PO2 96.1 mmHg (80-100); ARTERIAL BLOOD GAS pH 7.519 (7.350-7.450)
[2020-10-31 23:26] LABS: ALLENS TEST POSITIVE
[2020-11-01] MEDS: SODIUM BICARBONATE 650 MG TABLET PO SCH ×3 (05:50→22:44)
[2020-11-01] MEDS: hydrALAZINE HCL 50 MG TABLET (FP) PO SCH ×3 (05:50→22:44)
[2020-11-01] MEDS: INSULIN SLIDING SCALE (NOVOLOG) 1 VIAL SQ SCH ×4 (06:05→22:46)
[2020-11-01 07:49] LABS: HEMATOCRIT 29.2 % (32.4-45.2); HEMOGLOBIN 9.8 GM/dL (10.7-15.3); MCH 30.8 pg (25.7-33.7); MCHC 33.6 g/dl (32.0-36.0); MEAN CELL VOLUME 91.9 fl (80-96); MEAN PLT VOLUME 8.8 fl (7.5-11.1); PLATELET COUNT 216 10^3/uL (134-434); RBC 3.18 M/mm3 (3.60-5.2); RDW 15.4 % (11.6-15.6)
[2020-11-01 08:06] LABS: CALCIUM 7.9 mg/dL (8.5-10.1)
[2020-11-01 08:10] LABS: CREATININE 5.3 mg/dL (0.55-1.3); PHOSPHOROUS 3.4 mg/dL (2.5-4.9)
[2020-11-01 08:11] LABS: BILIRUBIN,TOTAL 0.5 mg/dL (0.2-1); TOT PROT 6.3 g/dl (6.4-8.2)
[2020-11-01 08:25] LABS: ALBUMIN 2.9 g/dl (3.4-5.0); BLOOD UREA NITROGEN 74.2 mg/dL (7-18)
[2020-11-01 08:47] LABS: INR 1.19 (0.83-1.09); PROTHROMBIN TIME (PATIENT) 14.6 SEC (9.7-13.0)
[2020-11-01] MEDS ORDERED: SODIUM CHLORIDE 250 ML IV PRN ×2 (08:49→12:47)
[2020-11-01] MEDS ORDERED: dilTIAZem HCL 25 MG/5 ML - 5 ML VIAL IVPUSH PRN (08:49)
[2020-11-01] MEDS: DEXAMETHASONE SOD PHOSPHATE 10 MG/1 ML VIAL IVPUSH SCH (10:34)
[2020-11-01] MEDS: ZINC SULFATE 220 MG CAPSULE (FP) PO SCH (10:35)
[2020-11-01] MEDS: PANTOPRAZOLE 40 MG TABLET PO SCH ×2 (10:36→22:45)
[2020-11-01] MEDS: ASCORBIC ACID 500 MG TABLET (FP) PO SCH ×2 (10:36→22:45)
[2020-11-01] MEDS: ACETAMINOPHEN 325 MG TABLET (FP) PO PRN ×2 (10:36→15:32)
[2020-11-01 10:37] LABS: ANISOCYTOSIS 0; MACROCYTOSIS 0; PLATELET ESTIMATE NORMAL
[2020-11-01] MEDS: CHOLECALCIFEROL (VIT D3) 1,000 UNIT (25 MCG) TABLET PO SCH (10:37)
[2020-11-01] MEDS: MUPIROCIN 2% TOPICAL OINTMENT FOR DECOLONIZATION NS SCH ×2 (10:37→22:45)
[2020-11-01 10:39] LABS: ERYTHROCYTE SEDIMENTATION RATE 67 mm/hr (0-30)
[2020-11-01] MEDS ORDERED: dilTIAZem HCL 25 MG/5 ML - 5 ML VIAL IVPUSH SCH (11:00)
[2020-11-01] MEDS ORDERED: APIXABAN 2.5 MG TABLET PO SCH (11:00)
[2020-11-01] MEDS ORDERED: dilTIAZem HCL 60 MG TABLET PO SCH (11:30)
[2020-11-01] MEDS: SENNOSIDES/DOCUSATE COMBO (SENNA PLUS) TABLET (UD) PO SCH ×2 (12:31→22:45)
[2020-11-01] MEDS ORDERED: METOPROLOL TARTRATE 5 MG/5 ML VIAL IVPUSH ONE (15:37)
[2020-11-01] MEDS ORDERED: WARFARIN NA 5 MG TABLET PO SCH (18:00)
[2020-11-01] MEDS ORDERED: PT OWN MED DRAWER 7, Y5N ONE (18:12)
[2020-11-01] MEDS: DEXMEDETOMIDINE IN 0.9 % NACL 400 MCG/100 ML VIAL IVPB SCH (19:41)
[2020-11-01 21:43] LABS: INR 1.61 (0.83-1.09); PROTHROMBIN TIME (PATIENT) 19.5 SEC (9.7-13.0)
[2020-11-01 21:46] LABS: ACTIVATED PTT 27.3 SECONDS (25.2-36.5)
[2020-11-01] MEDS ORDERED: APIXABAN 5 MG TABLET PO SCH (22:00)
[2020-11-01] MEDS: CHLORHEXIDINE GLUCONATE 4% CLEANSER FOR DECOLONIZATION TP SCH (22:45)
[2020-11-02] MEDS: SENNOSIDES/DOCUSATE COMBO (SENNA PLUS) TABLET (UD) PO SCH ×3 (00:18→21:21)
[2020-11-02] MEDS: SODIUM BICARBONATE 650 MG TABLET PO SCH ×4 (00:19→21:20)
[2020-11-02] MEDS: hydrALAZINE HCL 50 MG TABLET (FP) PO SCH ×4 (00:19→21:21)
[2020-11-02] MEDS: ASCORBIC ACID 500 MG TABLET (FP) PO SCH ×3 (00:20→21:20)
[2020-11-02] MEDS: INSULIN SLIDING SCALE (NOVOLOG) 1 VIAL SQ SCH ×4 (06:15→21:27)
[2020-11-02 07:49] LABS: HEMATOCRIT 28.5 % (32.4-45.2); HEMOGLOBIN 9.4 GM/dL (10.7-15.3); MEAN PLT VOLUME 9.1 fl (7.5-11.1); PLATELET COUNT 169 10^3/uL (134-434); RBC 3.03 M/mm3 (3.60-5.2); RDW 15.3 % (11.6-15.6); WHITE BLOOD COUNT 21.8 K/mm3 (4.0-10.0)
[2020-11-02 07:55] LABS: INR 3.15 (0.83-1.09); PROTHROMBIN TIME (PATIENT) 37.5 SEC (9.7-13.0)
[2020-11-02 07:57] LABS: ACTIVATED PTT 31.4 SECONDS (25.2-36.5)
[2020-11-02 08:08] LABS: ALBUMIN 2.6 g/dl (3.4-5.0); BLOOD UREA NITROGEN 95.6 mg/dL (7-18); CALCIUM 7.7 mg/dL (8.5-10.1)
[2020-11-02 08:12] LABS: CREATININE 6.2 mg/dL (0.55-1.3)
[2020-11-02 08:13] LABS: BILIRUBIN,TOTAL 0.6 mg/dL (0.2-1)
[2020-11-02] MEDS ORDERED: SODIUM CHLORIDE 250 ML IV STA (08:55)
[2020-11-02 09:05] LABS: ERYTHROCYTE SEDIMENTATION RATE 73 mm/hr (0-30)
[2020-11-02 09:12] LABS: ANISOCYTOSIS 0; HELMET CELLS 0; HOWELL-JOLLY BODIES 0; MACROCYTOSIS 0; OVALOCYTE 0; PLATELET ESTIMATE NORMAL; ROULEAU 0; SICKELED CELLS 0; TARGET CELLS 0; TEAR DROP CELLS 0; TOXIC GRANULATION 0
[2020-11-02] MEDS: DEXAMETHASONE SOD PHOSPHATE 10 MG/1 ML VIAL IVPUSH SCH (10:33)
[2020-11-02] MEDS: ACETAMINOPHEN 325 MG TABLET (FP) PO PRN ×2 (10:33→21:18)
[2020-11-02] MEDS: PANTOPRAZOLE SODIUM 40 MG VIAL IVPUSH SCH ×2 (10:33→21:21)
[2020-11-02] MEDS: CHOLECALCIFEROL (VIT D3) 1,000 UNIT (25 MCG) TABLET PO SCH (10:34)
[2020-11-02] MEDS: ZINC SULFATE 220 MG CAPSULE (FP) PO SCH (10:34)
[2020-11-02] MEDS: MUPIROCIN 2% TOPICAL OINTMENT FOR DECOLONIZATION NS SCH ×2 (10:41→21:21)
[2020-11-02 11:14] LABS: PHOSPHOROUS 4.2 mg/dL (2.5-4.9)
[2020-11-02] MEDS: APIXABAN 5 MG TABLET PO SCH ×2 (11:18→21:19)
[2020-11-02] MEDS: dilTIAZem HCL 60 MG TABLET PO SCH ×2 (11:19→17:25)
[2020-11-02] MEDS: DEXMEDETOMIDINE IN 0.9 % NACL 400 MCG/100 ML VIAL IVPB SCH (15:26)
[2020-11-02] MEDS ORDERED: PT OWN MED DRAWER 7, Y5N ONE (21:17)
[2020-11-02] MEDS: CHLORHEXIDINE GLUCONATE 4% CLEANSER FOR DECOLONIZATION TP SCH (21:21)
[2020-11-03] MEDS: dilTIAZem HCL 60 MG TABLET PO SCH ×5 (00:16→17:32)
[2020-11-03] MEDS: hydrALAZINE HCL 50 MG TABLET (FP) PO SCH ×4 (05:05→22:10)
[2020-11-03] MEDS: SODIUM BICARBONATE 650 MG TABLET PO SCH ×4 (05:05→22:31)
[2020-11-03] MEDS: INSULIN SLIDING SCALE (NOVOLOG) 1 VIAL SQ SCH ×5 (06:02→22:32)
[2020-11-03 06:40] LABS: HEMATOCRIT 27.3 % (32.4-45.2); HEMOGLOBIN 9.1 GM/dL (10.7-15.3); MCH 31.2 pg (25.7-33.7); MCHC 33.4 g/dl (32.0-36.0); MEAN CELL VOLUME 93.3 fl (80-96); MEAN PLT VOLUME 10.3 fl (7.5-11.1); PLATELET COUNT 188 10^3/uL (134-434); RBC 2.92 M/mm3 (3.60-5.2); RDW 15.6 % (11.6-15.6); WHITE BLOOD COUNT 29.7 K/mm3 (4.0-10.0)
[2020-11-03 06:57] LABS: CHLORIDE 99 mmol/L (98-107); SODIUM 135 mmol/L (136-145)
[2020-11-03 07:00] LABS: CALCIUM 7.3 mg/dL (8.5-10.1)
[2020-11-03 07:01] LABS: ALBUMIN 2.6 g/dl (3.4-5.0); ANION GAP 13 MMOL/L (8-16); CO2 23 mmol/L (21-32); GLUCOSE,RANDOM 192 mg/dL (74-106)
[2020-11-03 07:04] LABS: CREATININE 6.7 mg/dL (0.55-1.3); SGOT/AST 27 U/L (15-37); SGPT/ALT 13 U/L (13-61)
[2020-11-03 07:07] LABS: ALK PHOS 47 U/L (45-117); BILIRUBIN,TOTAL 0.5 mg/dL (0.2-1); TOT PROT 6.2 g/dl (6.4-8.2)
[2020-11-03 07:09] LABS: LDH 736 U/L (84-246)
[2020-11-03] MEDS ORDERED: SODIUM CHLORIDE 250 ML IV PRN (07:20)
[2020-11-03] MEDS ORDERED: HEPARIN NA (PORCINE) 5,000 UNITS/ML 1ML VIAL IVPUSH ONE (07:20)
[2020-11-03] MEDS: HEPARIN NA (PORCINE) 5,000 UNITS/ML 1ML VIAL IVPUSH SCH ×3 (07:20→09:20)
[2020-11-03] MEDS ORDERED: EPOETIN ALFA-EPBX 10,000 UNIT/ML VIAL IVPUSH ONE (07:20)
[2020-11-03] MEDS: ALBUMIN HUMAN 25% 12.5 GM/50 ML VIAL IVPB SCH ×4 (07:20→08:50)
[2020-11-03 07:27] LABS: BLOOD UREA NITROGEN 114.2 mg/dL (7-18)
[2020-11-03 07:43] LABS: ERYTHROCYTE SEDIMENTATION RATE 73 mm/hr (0-30)
[2020-11-03] MEDS ORDERED: PT OWN MED DRAWER 7, Y5N ONE (08:32)
[2020-11-03] MEDS: DEXAMETHASONE SOD PHOSPHATE 10 MG/1 ML VIAL IVPUSH SCH (10:29)
[2020-11-03] MEDS: PANTOPRAZOLE SODIUM 40 MG VIAL IVPUSH SCH ×2 (10:29→22:31)
[2020-11-03] MEDS: CHOLECALCIFEROL (VIT D3) 1,000 UNIT (25 MCG) TABLET PO SCH (10:29)
[2020-11-03] MEDS: ZINC SULFATE 220 MG CAPSULE (FP) PO SCH (10:30)
[2020-11-03] MEDS: ASCORBIC ACID 500 MG TABLET (FP) PO SCH ×2 (10:30→22:32)
[2020-11-03] MEDS: APIXABAN 5 MG TABLET PO SCH ×2 (10:30→22:31)
[2020-11-03] MEDS: SENNOSIDES/DOCUSATE COMBO (SENNA PLUS) TABLET (UD) PO SCH ×2 (10:31→22:32)
[2020-11-03] MEDS: ACETAMINOPHEN 325 MG TABLET (FP) PO PRN (10:51)
[2020-11-03] MEDS: MUPIROCIN 2% TOPICAL OINTMENT FOR DECOLONIZATION NS SCH ×2 (10:57→22:32)
[2020-11-03 11:55] LABS: ANISOCYTOSIS 0; HELMET CELLS 0; HOWELL-JOLLY BODIES 0; MACROCYTOSIS 0; OVALOCYTE 0; PLATELET ESTIMATE NORMAL; ROULEAU 0; SICKELED CELLS 0; TARGET CELLS 0; TEAR DROP CELLS 0; TOXIC GRANULATION 0
[2020-11-03] MEDS: DEXMEDETOMIDINE IN 0.9 % NACL 400 MCG/100 ML VIAL IVPB SCH ×2 (17:30→19:10)
[2020-11-03] MEDS: CHLORHEXIDINE GLUCONATE 4% CLEANSER FOR DECOLONIZATION TP SCH (22:32)
[2020-11-04] MEDS: dilTIAZem HCL 60 MG TABLET PO SCH ×4 (01:00→17:25)
[2020-11-04] MEDS: INSULIN SLIDING SCALE (NOVOLOG) 1 VIAL SQ SCH ×4 (06:08→23:15)
[2020-11-04] MEDS: SODIUM BICARBONATE 650 MG TABLET PO SCH ×3 (06:31→23:14)
[2020-11-04] MEDS: hydrALAZINE HCL 50 MG TABLET (FP) PO SCH ×3 (06:33→23:13)
[2020-11-04 06:58] LABS: HEMATOCRIT 24.1 % (32.4-45.2); MCH 31.1 pg (25.7-33.7); MCHC 33.2 g/dl (32.0-36.0); MEAN CELL VOLUME 93.5 fl (80-96); MEAN PLT VOLUME 10.5 fl (7.5-11.1); PLATELET COUNT 151 10^3/uL (134-434); RBC 2.58 M/mm3 (3.60-5.2); RDW 15.3 % (11.6-15.6); WHITE BLOOD COUNT 26.7 K/mm3 (4.0-10.0)
[2020-11-04 07:24] LABS: BLOOD UREA NITROGEN 89.3 mg/dL (7-18)
[2020-11-04 07:25] LABS: ALBUMIN 2.5 g/dl (3.4-5.0); CALCIUM 7.1 mg/dL (8.5-10.1); MAGNESIUM 2.1 mg/dL (1.8-2.4)
[2020-11-04 07:28] LABS: CREATININE 5.4 mg/dL (0.55-1.3); PHOSPHOROUS 4.5 mg/dL (2.5-4.9)
[2020-11-04 07:29] LABS: TOT PROT 5.4 g/dl (6.4-8.2)
[2020-11-04 07:30] LABS: BILIRUBIN,TOTAL 0.5 mg/dL (0.2-1)
[2020-11-04 08:41] LABS: ANISOCYTOSIS 0; HELMET CELLS 0; HOWELL-JOLLY BODIES 0; MACROCYTOSIS 0; OVALOCYTE 0; PLATELET ESTIMATE NORMAL; ROULEAU 0; SICKELED CELLS 0; TARGET CELLS 0; TEAR DROP CELLS 0; TOXIC GRANULATION 0
[2020-11-04 09:30] LABS: ERYTHROCYTE SEDIMENTATION RATE 104 mm/hr (0-30)
[2020-11-04] MEDS: APIXABAN 5 MG TABLET PO SCH ×2 (10:37→23:13)
[2020-11-04] MEDS: ZINC SULFATE 220 MG CAPSULE (FP) PO SCH (10:38)
[2020-11-04] MEDS: CHOLECALCIFEROL (VIT D3) 1,000 UNIT (25 MCG) TABLET PO SCH (10:39)
[2020-11-04] MEDS: SENNOSIDES/DOCUSATE COMBO (SENNA PLUS) TABLET (UD) PO SCH ×2 (10:39→23:13)
[2020-11-04] MEDS: ASCORBIC ACID 500 MG TABLET (FP) PO SCH ×2 (10:40→23:15)
[2020-11-04] MEDS: PANTOPRAZOLE SODIUM 40 MG VIAL IVPUSH SCH ×2 (10:41→23:13)
[2020-11-04] MEDS: DEXAMETHASONE SOD PHOSPHATE 10 MG/1 ML VIAL IVPUSH SCH (10:44)
[2020-11-04] MEDS: MUPIROCIN 2% TOPICAL OINTMENT FOR DECOLONIZATION NS SCH ×2 (11:04→23:13)
[2020-11-04] MEDS: DEXMEDETOMIDINE IN 0.9 % NACL 400 MCG/100 ML VIAL IVPB SCH (23:12)
[2020-11-04] MEDS: CHLORHEXIDINE GLUCONATE 4% CLEANSER FOR DECOLONIZATION TP SCH (23:14)
[2020-11-05] MEDS: hydrALAZINE HCL 50 MG TABLET (FP) PO SCH ×3 (07:27→23:37)
[2020-11-05] MEDS: SODIUM BICARBONATE 650 MG TABLET PO SCH ×3 (07:29→23:38)
[2020-11-05] MEDS: dilTIAZem HCL 60 MG TABLET PO SCH ×5 (07:29→23:38)
[2020-11-05] MEDS: INSULIN SLIDING SCALE (NOVOLOG) 1 VIAL SQ SCH ×3 (07:36→17:37)
[2020-11-05] MEDS ORDERED: APIXABAN 2.5 MG TABLET PO SCH ×2 (10:14→22:00)
[2020-11-05] MEDS: ASCORBIC ACID 500 MG TABLET (FP) PO SCH ×2 (10:18→23:38)
[2020-11-05] MEDS: ZINC SULFATE 220 MG CAPSULE (FP) PO SCH (10:18)
[2020-11-05] MEDS: CHOLECALCIFEROL (VIT D3) 1,000 UNIT (25 MCG) TABLET PO SCH (10:18)
[2020-11-05] MEDS: PANTOPRAZOLE SODIUM 40 MG VIAL IVPUSH SCH ×2 (10:18→23:37)
[2020-11-05] MEDS: APIXABAN 2.5 MG TABLET PO SCH (10:18)
[2020-11-05] MEDS: DEXAMETHASONE SOD PHOSPHATE 10 MG/1 ML VIAL IVPUSH SCH (10:32)
[2020-11-05] MEDS: MUPIROCIN 2% TOPICAL OINTMENT FOR DECOLONIZATION NS SCH (10:32)
[2020-11-05] MEDS ORDERED: MORPHINE SULFATE 2 MG/ML VIAL ONE (10:59)
[2020-11-05] MEDS: SENNOSIDES/DOCUSATE COMBO (SENNA PLUS) TABLET (UD) PO SCH ×2 (15:05→23:38)
[2020-11-05 17:14] LABS: CHLORIDE 102 mmol/L (98-107); SODIUM 142 mmol/L (136-145)
[2020-11-05 17:16] LABS: CALCIUM 7.4 mg/dL (8.5-10.1)
[2020-11-05 17:17] LABS: ALBUMIN 2.3 g/dl (3.4-5.0); ANION GAP 14 MMOL/L (8-16); CO2 27 mmol/L (21-32); GLUCOSE,RANDOM 310 mg/dL (74-106)
[2020-11-05 17:20] LABS: CREATININE 6.6 mg/dL (0.55-1.3); SGOT/AST 15 U/L (15-37); SGPT/ALT 8 U/L (13-61)
[2020-11-05 17:21] LABS: BILIRUBIN,TOTAL 0.5 mg/dL (0.2-1); TOT PROT 5.5 g/dl (6.4-8.2)
[2020-11-05 17:22] LABS: ALK PHOS 56 U/L (45-117)
[2020-11-05 17:28] LABS: BLOOD UREA NITROGEN 115.8 mg/dL (7-18)
[2020-11-05] MEDS: DEXMEDETOMIDINE IN 0.9 % NACL 400 MCG/100 ML VIAL IVPB SCH (17:33)
[2020-11-06] MEDS: INSULIN SLIDING SCALE (NOVOLOG) 1 VIAL SQ SCH ×5 (00:06→22:40)
[2020-11-06] MEDS: APIXABAN 2.5 MG TABLET PO SCH ×2 (00:06→09:21)
[2020-11-06] MEDS: CHLORHEXIDINE GLUCONATE 4% CLEANSER FOR DECOLONIZATION TP SCH ×2 (00:06→21:43)
[2020-11-06] MEDS: MUPIROCIN 2% TOPICAL OINTMENT FOR DECOLONIZATION NS SCH (00:06)
[2020-11-06] MEDS: dilTIAZem HCL 60 MG TABLET PO SCH ×3 (06:15→19:09)
[2020-11-06] MEDS: SODIUM BICARBONATE 650 MG TABLET PO SCH ×3 (06:19→22:39)
[2020-11-06] MEDS: hydrALAZINE HCL 50 MG TABLET (FP) PO SCH ×3 (06:19→21:45)
[2020-11-06] MEDS: DEXAMETHASONE SOD PHOSPHATE 10 MG/1 ML VIAL IVPUSH SCH (09:16)
[2020-11-06] MEDS: PANTOPRAZOLE SODIUM 40 MG VIAL IVPUSH SCH ×2 (09:17→21:46)
[2020-11-06] MEDS: ASCORBIC ACID 500 MG TABLET (FP) PO SCH ×2 (09:21→22:40)
[2020-11-06] MEDS: CHOLECALCIFEROL (VIT D3) 1,000 UNIT (25 MCG) TABLET PO SCH (09:21)
[2020-11-06] MEDS: ZINC SULFATE 220 MG CAPSULE (FP) PO SCH (09:21)
[2020-11-06] MEDS: SENNOSIDES/DOCUSATE COMBO (SENNA PLUS) TABLET (UD) PO SCH ×2 (09:22→22:39)
[2020-11-06] MEDS: DEXMEDETOMIDINE IN 0.9 % NACL 400 MCG/100 ML VIAL IVPB SCH (09:31)
[2020-11-06 09:35] LABS: HEMATOCRIT 24.8 % (32.4-45.2); HEMOGLOBIN 8.2 GM/dL (10.7-15.3); MCH 31.2 pg (25.7-33.7); MCHC 33.1 g/dl (32.0-36.0); MEAN CELL VOLUME 94.2 fl (80-96); MEAN PLT VOLUME 11.2 fl (7.5-11.1); PLATELET COUNT 174 10^3/uL (134-434); RBC 2.63 M/mm3 (3.60-5.2); RDW 15.4 % (11.6-15.6); WHITE BLOOD COUNT 26.2 K/mm3 (4.0-10.0)
[2020-11-06] MEDS: MORPHINE SULFATE 2 MG/ML VIAL IVPUSH PRN (09:43)
[2020-11-06 09:57] LABS: CHLORIDE 102 mmol/L (98-107); SODIUM 139 mmol/L (136-145)
[2020-11-06 09:58] LABS: ALBUMIN 2.1 g/dl (3.4-5.0); ANION GAP 12 MMOL/L (8-16); CALCIUM 7.7 mg/dL (8.5-10.1); CO2 25 mmol/L (21-32)
[2020-11-06 09:59] LABS: GLUCOSE,RANDOM 234 mg/dL (74-106)
[2020-11-06 10:02] LABS: CREATININE 7.2 mg/dL (0.55-1.3); SGOT/AST 10 U/L (15-37); SGPT/ALT 10 U/L (13-61)
[2020-11-06 10:03] LABS: BILIRUBIN,TOTAL 0.5 mg/dL (0.2-1); TOT PROT 5.3 g/dl (6.4-8.2)
[2020-11-06 10:04] LABS: ALK PHOS 55 U/L (45-117)
[2020-11-06 10:12] LABS: BLOOD UREA NITROGEN 134.7 mg/dL (7-18)
[2020-11-06 10:35] LABS: ANISOCYTOSIS 1+; PLATELET ESTIMATE NORMAL; TARGET CELLS 1+
[2020-11-06 11:17] LABS: INR 2.07 (0.83-1.09); PROTHROMBIN TIME (PATIENT) 24.5 SEC (9.7-13.0)
[2020-11-06 11:20] LABS: ACTIVATED PTT 28.8 SECONDS (25.2-36.5)
[2020-11-06] MEDS: APIXABAN 5 MG TABLET PO SCH (20:03)
[2020-11-07] MEDS: dilTIAZem HCL 60 MG TABLET PO SCH ×5 (01:22→18:44)
[2020-11-07 06:56] LABS: HEMATOCRIT 22.8 % (32.4-45.2); HEMOGLOBIN 7.5 GM/dL (10.7-15.3); MCH 30.8 pg (25.7-33.7); MCHC 32.9 g/dl (32.0-36.0); MEAN CELL VOLUME 93.6 fl (80-96); PLATELET COUNT 168 10^3/uL (134-434); RBC 2.44 M/mm3 (3.60-5.2); RDW 15.5 % (11.6-15.6); WHITE BLOOD COUNT 25.3 K/mm3 (4.0-10.0)
[2020-11-07] MEDS: SODIUM BICARBONATE 650 MG TABLET PO SCH ×2 (06:59→13:32)
[2020-11-07] MEDS: INSULIN SLIDING SCALE (NOVOLOG) 1 VIAL SQ SCH ×2 (06:59→12:27)
[2020-11-07] MEDS: hydrALAZINE HCL 50 MG TABLET (FP) PO SCH ×2 (06:59→13:32)
[2020-11-07 07:08] LABS: CHLORIDE 101 mmol/L (98-107); INR 2.08 (0.83-1.09); PROTHROMBIN TIME (PATIENT) 24.6 SEC (9.7-13.0); SODIUM 139 mmol/L (136-145)
[2020-11-07 07:10] LABS: ACTIVATED PTT 26.4 SECONDS (25.2-36.5)
[2020-11-07 07:11] LABS: CALCIUM 7.4 mg/dL (8.5-10.1)
[2020-11-07 07:12] LABS: ANION GAP 14 MMOL/L (8-16); CO2 25 mmol/L (21-32); GLUCOSE,RANDOM 110 mg/dL (74-106)
[2020-11-07 07:13] LABS: ALBUMIN 1.9 g/dl (3.4-5.0)
[2020-11-07 07:16] LABS: BILIRUBIN,TOTAL 0.4 mg/dL (0.2-1); SGOT/AST 13 U/L (15-37); SGPT/ALT 8 U/L (13-61)
[2020-11-07 07:17] LABS: TOT PROT 5.2 g/dl (6.4-8.2)
[2020-11-07 07:18] LABS: ALK PHOS 58 U/L (45-117)
[2020-11-07 07:28] LABS: BLOOD UREA NITROGEN 142.7 mg/dL (7-18); CREATININE 7.6 mg/dL (0.55-1.3)
[2020-11-07 08:55] LABS: ANISOCYTOSIS 1+; MACROCYTOSIS 1+; PLATELET ESTIMATE DECREASED
[2020-11-07] MEDS ORDERED: VITAMIN B COMP W-C 1 EA TABLET (NEPHRO-VITE) PO SCH ×2 (10:00)
[2020-11-07] MEDS ORDERED: PT OWN MED DRAWER 7, Y5N ONE (10:04)
[2020-11-07] MEDS ORDERED: SODIUM CHLORIDE 250 ML IV PRN ×2 (10:40→16:16)
[2020-11-07] MEDS: DEXAMETHASONE SOD PHOSPHATE 10 MG/1 ML VIAL IVPUSH SCH (10:48)
[2020-11-07] MEDS: ZINC SULFATE 220 MG CAPSULE (FP) PO SCH (10:48)
[2020-11-07] MEDS: APIXABAN 2.5 MG TABLET PO SCH ×2 (10:48→22:41)
[2020-11-07] MEDS: SENNOSIDES/DOCUSATE COMBO (SENNA PLUS) TABLET (UD) PO SCH (10:48)
[2020-11-07] MEDS: PANTOPRAZOLE SODIUM 40 MG VIAL IVPUSH SCH (10:48)
[2020-11-07] MEDS: ASCORBIC ACID 500 MG TABLET (FP) PO SCH (10:48)
[2020-11-07] MEDS: CHOLECALCIFEROL (VIT D3) 1,000 UNIT (25 MCG) TABLET PO SCH (10:48)
[2020-11-07] MEDS ORDERED: EPOETIN ALFA-EPBX 20,000 UNIT/ML VIAL IVPUSH ONE (16:15)
[2020-11-07] MEDS: MORPHINE SULFATE 2 MG/ML VIAL IVPUSH PRN ×2 (16:30→17:15)
[2020-11-07] MEDS ORDERED: RAPID SEQUENCE INTUBATION KIT NR ONE (16:51)
[2020-11-07] MEDS ORDERED: PROPOFOL 1,000,000 MCG/100 ML VIAL ONE (16:56)
[2020-11-07] MEDS ORDERED: MORPHINE SULFATE 2 MG/ML VIAL IVPUSH ONE ×3 (19:12→19:15)
[2020-11-07] MEDS ORDERED: PROPOFOL 200 MG/20 ML VIAL IVPUSH ONE (19:13)
[2020-11-07] MEDS ORDERED: SODIUM CHLORIDE 0.9% 500 ML INFUS.BAG IV ONE (19:14)
[2020-11-07] MEDS ORDERED: morphine CARPU-JECT 2 MG/1 ML DISP.SYRIN IVPUSH ONE (19:14)
[2020-11-07] MEDS ORDERED: PROPOFOL 1,000,000 MCG/100 ML VIAL IVPB SCH (19:15)
[2020-11-07] MEDS ORDERED: VASOPRESSIN 40 UNITS/100 ML BAG IV SCH (20:15)
[2020-11-07] MEDS ORDERED: NOREPINEPHRINE D5W PREMIX 16,000 MCG/500 ML BAG IVPB ONE (20:43)
[2020-11-07] MEDS ORDERED: NOREPINEPHRINE BITARTRATE 16,000 MCG in SODIUM CHLORIDE 484 ML IV SCH (20:45)
[2020-11-07] MEDS: ALBUMIN HUMAN 25% 12.5 GM/50 ML VIAL IVPB SCH ×3 (21:00→21:54)
[2020-11-07] MEDS ORDERED: EPINEPHrine 1:10,000 (P-F SYR) 1 MG/10 ML DISP.SYRIN ONE (21:05)
[2020-11-07] MEDS ORDERED: MORPHINE SULFATE/0.9% NACL/PF 100 MG/100 ML BAG IVPB SCH (21:30)
[2020-11-07 21:32] LABS: ARTERIAL BLOOD GAS BASE EXCESS -27.5 mmol/L (-2-2); ARTERIAL BLOOD GAS PO2 99.2 mmHg (80-100)
[2020-11-07 21:35] LABS: PT'S TEMP 37C; VENT MODE AC/VC; VENT RATE 18
[2020-11-07 21:37] LABS: ARTERIAL BLOOD GAS pH 6.746 (7.350-7.450)
[2020-11-07] MEDS: CHLORHEXIDINE GLUCONATE 4% CLEANSER FOR DECOLONIZATION TP SCH (22:41)
[2020-11-08 00:46] VITALS: BP 77/36; PULSE 50; TEMP 96
== END 2020-11-08 02:54 | disposition expired | DRG 871 ==
LOC: JER 01:29 → JERBED 06:24 → J4W 15:34 → JICU 11-01 00:28
PROVIDERS: ADMIT Internal Medicine; ATTEND Internal Medicine
PROC: XW033E5 Introduction of Remdesivir Anti-infective into Peripheral Vein, Percutaneous Approach, New Technology Group 5 (ICD-10-PCS; 2020-10-27)
PROC: 06HM33Z Insertion of Infusion Device into Right Femoral Vein, Percutaneous Approach (ICD-10-PCS; principal; 2020-10-30)
PROC: B54BZZA Ultrasonography of Right Lower Extremity Veins, Guidance (ICD-10-PCS; 2020-10-30)
PROC: 5A1D70Z Performance of Urinary Filtration, Intermittent, Less than 6 Hours Per Day (ICD-10-PCS; 2020-10-30)
PROC: 5A1D70Z Performance of Urinary Filtration, Intermittent, Less than 6 Hours Per Day (ICD-10-PCS; 2020-10-31)
PROC: 5A1D70Z Performance of Urinary Filtration, Intermittent, Less than 6 Hours Per Day (ICD-10-PCS; 2020-11-03)
PROC: 05HN33Z Insertion of Infusion Device into Left Internal Jugular Vein, Percutaneous Approach (ICD-10-PCS; 2020-11-07)
PROC: 0BH17EZ Insertion of Endotracheal Airway into Trachea, Via Natural or Artificial Opening (ICD-10-PCS; 2020-11-07)
PROC: 5A1935Z Respiratory Ventilation, Less than 24 Consecutive Hours (ICD-10-PCS; 2020-11-07)
PROC: 5A1D70Z Performance of Urinary Filtration, Intermittent, Less than 6 Hours Per Day (ICD-10-PCS; 2020-11-07)
DX: A41.89 Other specified sepsis (principal); U07.1 COVID-19; J12.82 Pneumonia due to coronavirus disease 2019; J96.01 Acute respiratory failure with hypoxia; I13.2 Hypertensive heart and chronic kidney disease with heart failure and with stage 5 chronic kidney disease, or end stage renal disease; N18.5 Chronic kidney disease, stage 5; I50.32 Chronic diastolic (congestive) heart failure; N17.9 Acute kidney failure, unspecified; I48.92 Unspecified atrial flutter; I24.8 Other forms of acute ischemic heart disease; E87.2 Acidosis; D68.9 Coagulation defect, unspecified; I82.4Z1 Acute embolism and thrombosis of unspecified deep veins of right distal lower extremity; I48.0 Paroxysmal atrial fibrillation; J44.9 Chronic obstructive pulmonary disease, unspecified; E11.9 Type 2 diabetes mellitus without complications; I25.10 Atherosclerotic heart disease of native coronary artery without angina pectoris; D63.1 Anemia in chronic kidney disease; G43.909 Migraine, unspecified, not intractable, without status migrainosus; K21.9 Gastro-esophageal reflux disease without esophagitis; F32.9 Major depressive disorder, single episode, unspecified; I25.2 Old myocardial infarction; E11.22 Type 2 diabetes mellitus with diabetic chronic kidney disease; I46.9 Cardiac arrest, cause unspecified; E11.42 Type 2 diabetes mellitus with diabetic polyneuropathy; N32.81 Overactive bladder; Z79.01 Long term (current) use of anticoagulants; Z79.4 Long term (current) use of insulin
CPT/HCPCS: 31500; 36415; 36600; 71045-TC-FY; 71250-TC; 76775-TC; 80053; 80061; 82248; 82550; 82728; 82803; 82962; 83036; 83605; 83615; 83735; 84100; 84484; 85025; 85379; 85610; 85651; 85730; 86140; 86706; 86769; 86803; 87040; 87340; 87517; 87804; 93005; 93010; 93970-TC; 94660; 99285-25; C9399; C9803; J0131; J1100; J1644; J3490; P9047; Q5106; U0003; U0005